=== PATIENT | female | born 1955 | race Caucasian/White ===

== ENCOUNTER → 2017-01-22 | Outpatient (CLI) | payer MEDICARE ==
--- NOTE | 2017-01-22 10:10 | Diagnostic Imaging Report ---
PROCEDURE: CT head without contrast. TECHNIQUE: Multiple contiguous axial images were obtained through the brain without the use of intravenous contrast. INDICATION: Frontal and posterior head pain with tremors x10 days. COMPARISON: 06/27/2007 FINDINGS: There is no midline shift or mass effect. The ventricles and sulci are unremarkable. No evidence for acute intracranial hemorrhage, abnormal extra-axial fluid collections or cerebral edema is present. The basilar cisterns are unremarkable. The visualized paranasal sinuses and mastoid air cells are clear. The bony calvarium is intact. IMPRESSION: Negative appearing noncontrast CT of the head. Dictated by: Dictated on workstation # [id number]
--- NOTE | 2017-01-22 12:11 | Diagnostic Imaging Report ---
EXAMINATION: Three views of the lumbar spine. INDICATION: Scoliosis. FINDINGS: There is a prominent scoliotic curvature, convex to the left, centered around the L2 vertebral body with lateral subluxation of L3 over L4 of about 1.3 cm. There is no obvious malalignment at the posterior spinal line although the scoliosis limits such evaluation on the lateral view. There is significant disc height loss along the areas of concavity in the scoliosis on the left side in the lower lumbar spine and in the right and upper lumbar spine levels. Facet joint arthropathy is also present. The SI joints appear unremarkable. IMPRESSION: There is severe left convexity scoliosis and associated degenerative changes in the lumbar spine. Dictated by: Dictated on workstation # [id number]
--- NOTE | 2017-01-22 13:24 | Diagnostic Imaging Report ---
AP view of pelvis and bilateral hip radiographs. INDICATION: Bilateral hip pain. FINDINGS: There is significant scoliosis and degenerative changes seen in the lower lumbar spine. SI joints demonstrate mild degenerative changes. No acute fracture. Bilateral hip radiographs demonstrate mild subchondral sclerosis and cyst formation in the hip joints with no significant hip joint space loss. No subluxation or dislocation. No fracture seen. IMPRESSION: Severe degenerative changes in the lower lumbar spine. Dictated by: Dictated on workstation # [id number]
--- NOTE | 2017-01-22 14:00 | Diagnostic Imaging Report ---
Three views of thoracic spine. INDICATION: Degenerative scoliosis. FINDINGS: The thoracic spine demonstrates a scoliotic curvature convex to the right centered in the mid thoracic spine. This is perhaps a compensatory scoliosis to the lumbar spine severe left convexity scoliosis. There is straightening of the kyphotic curvature in the thoracic spine with no significant alignment abnormality at the posterior spinal line identified. The T12-L1 level however is not well seen due to scoliosis and underpenetration. The vertebral body heights are preserved. There is a suggestion of disc height loss and vacuum phenomenon at the T12-L1 level. IMPRESSION: S-shaped scoliosis severe and convex to the left in the lumbar spine with compensatory right convexity curvature in the mid thoracic spine. Advanced degenerative changes at the T12-L1 level. Dictated by: Dictated on workstation # [id number]
== END ==
LOC: RAD 09:45
PROVIDERS: ATTEND Nurse Practitioner Family
DX: M47.815 Spondylosis without myelopathy or radiculopathy, thoracolumbar region (principal); M41.9 Scoliosis, unspecified; R25.1 Tremor, unspecified; M25.551 Pain in right hip; M25.552 Pain in left hip
CPT/HCPCS: 70450; 72072; 72100; 73523

== ENCOUNTER → 2017-03-05 | Outpatient (CLI) | payer MEDICARE ==
--- NOTE | 2017-03-05 17:44 | Diagnostic Imaging Report ---
PROCEDURE: MR imaging cervical spine without contrast. TECHNIQUE: Multiplanar, multisequence MR imaging of the cervical spine was performed without contrast. INDICATION: Mid back pain. There are no previous studies available for comparison. FINDINGS: The parasagittal images do show slight reversal of the normal lordosis of the cervical spine. This may be secondary to muscle spasm and/or positioning. There is desiccation of the disc at every level and there is narrowing of the disc spaces at C5-C6 and C6-C7. There are disc bulges essentially at both of these levels. The disc at the C6-C7 level compresses the ventral aspect of the thecal sac and narrows the AP diameter to 8.7 mm. At C5-C6, the disc narrows the AP diameter of the thecal sac to 9.2 mm. There is mild narrowing of the neuroforamen bilaterally at C6-C7 and on the left at C5-C6. There is moderate narrowing of the neuroforamen on the right at C5-C6. There is also a disc bulge essentially at C4-C5. The disc flattens the ventral aspect of the thecal sac and narrows the AP diameter to 10.2 mm. There does not appear to be any significant narrowing of the neuroforamen at this level. The remainder of the cervical spine is unremarkable for spinal stenosis or nerve root encroachment. There is no abnormal signal arising from the cord or the vertebral bodies to indicate an acute abnormality. There is no sign of a paraspinal mass. The expected carotid and vertebral flow voids are evident bilaterally. The left vertebral artery is dominant. IMPRESSION: 1. There is degenerative disc disease at C5-C6 and C6-C7 and to a lesser extent at C4-C5. There is mild central stenosis at C5-C6 and C6-C7 and borderline stenosis at C4-C5. There is also narrowing of the neuroforamen at C5-C6 and C6-C7, particularly on the right at C5-C6. 2. There is no sign of an acute bony abnormality or of a cord lesion. Dictated by: Dictated on workstation # [id number]
--- NOTE | 2017-03-05 18:58 | Diagnostic Imaging Report ---
EXAM: MRI of the thoracic spine without contrast. DATE: March 05, 2017. INDICATION: A 61-year-old female, back pain. Scoliosis. COMPARISON: Radiographs of the thoracic spine, January 22, 2017. TECHNIQUE: Multiple noncontrast MRI sequences of the thoracic spine were obtained. FINDINGS: There is a 35 degrees of thoracic dextroscoliosis as measured from the inferior endplate of T12 to the superior endplate of T6. There is a thoracolumbar levoscoliosis. The T12 vertebral body is laterally offset relative to L1 by roughly 8 mm as illustrated on coronal T2 sequence image 6. There is no identified compression deformity or otherwise noted fracture of the thoracic spine. There is no prominent marrow edema at the level of the thoracic spine. There is rhjymydy-ji-jrumnz disc height loss at T12-L1 with asymmetric right-sided disc height loss at L1-L2 and L2-L3. There are endplate degenerative changes at T12-L1, L1-L2, and L2-L3. The thoracic disc heights are relatively well preserved. The visualized portions of the spinal cord are unremarkable in signal. There is no identified sizable thoracic disc protrusion or extrusion. There is no spinal stenosis, specifically at the thoracic spine levels. There is a T2 hyperintense left renal lesion on axial image 52 measuring 10 mm in size which is not well characterized on this exam. IMPRESSION: 1. Thoracic dextroscoliosis with Stinson angle of 35 degrees as measured from the inferior endplate of T12 to the superior endplate of T6. Thoracolumbar levoscoliosis with lateral offset of T12 relative to L1. 2. Sizable thoracic disc protrusion or extrusion. No spinal stenosis at the thoracic spine levels. 3. Endplate degenerative changes at T12-L1, L1-L2, and L2-L3. 4. No identified compression deformity or otherwise noted fracture. Dictated by: Dictated on workstation # [id number]
== END ==
LOC: RAD 15:35
PROVIDERS: ATTEND Orthopaedic Surgery Orthopaedic Surgery of the Spine
DX: M50.322 Other cervical disc degeneration at C5-C6 level (principal); M47.814 Spondylosis without myelopathy or radiculopathy, thoracic region; M47.816 Spondylosis without myelopathy or radiculopathy, lumbar region; M41.34 Thoracogenic scoliosis, thoracic region
CPT/HCPCS: 72141; 72146

== ENCOUNTER → 2017-03-06 | Outpatient (CLI) | payer MEDICARE ==
--- NOTE | 2017-03-06 16:48 | Diagnostic Imaging Report ---
INDICATION: Neck pain for one year, worse over the last one and half months, chronic lower back pain; sometimes radiating down in the left leg and both hips. COMPARISON STUDY: None. FINDINGS: Noncontrast CT scanning of the thoracolumbar spine with sagittal and coronal reformats demonstrates 50 degrees of levoscoliosis from T11 through L3. No fractures are present. There is right lateral subluxation of T12 on L1 and left lateral subluxation of L2 on L3. The thoracic spine demonstrates no areas of stenosis. Visualized portions of the ribs and lungs appear clear. Lumbar spine: T12-L1 level demonstrates disc space narrowing with scoliosis causing mild narrowing of the right neuroforamina. The L1-L2 level demonstrates disc space narrowing. No stenosis is present. The L2-L3 level demonstrates disc space narrowing with subluxation laterally causing narrowing of the right neuroforamina. The L3-L4 level demonstrates some facet arthropathy. Degenerative facet changes on the left cause narrowing of the left lateral recess. The L4-L5 level demonstrates facet arthropathy, left greater than right, with mild disc bulge. There is cije-qx-ddcizevm narrowing of the left neuroforamina. The L5-S1 level demonstrates facet arthropathy, left greater than right. There is mild narrowing of the left neuroforamina. IMPRESSION: There is severe scoliosis measuring 50 degrees of the thoracolumbar spine. Areas of foraminal and lateral recess stenosis are present within the lumbar spine, as above. Dictated by: Dictated on workstation # [id number]
--- NOTE | 2017-03-06 17:02 | Diagnostic Imaging Report ---
PROCEDURE: CT cervical spine without contrast. TECHNIQUE: Multiple contiguous axial images were obtained through the cervical spine without the use of intravenous contrast. Sagittal and coronal reformations were then performed. INDICATION: One-year history of left-sided neck pain. Constant over the past one and a half months. Arm tremors and spasms. CORRELATION STUDY: MRI cervical spine 03/05/2017. FINDINGS:. Static imaging demonstrates trace anterolisthesis of C3 on C4 and C4 on C5. There is also straightening noted. Cervical vertebral body heights are maintained. Odontoid and cervicocranial junction appearing unremarkable. C2-C3 level: Unremarkable. C3-C4 level: Very mild broad-based disc bulge suggested. No significant osseous narrowing of the neural foramina and/or spinal canal. C4-C5 level: Very mild loss of disc space height. No significant osseous narrowing of the spinal canal and/or foramina. C5-C6 level: Moderate loss of disc space height. Prominent endplate osteophytes result in foraminal narrowing, right greater than left. AP dimension of the spinal canal at 11 mm. C6-C7 level: Mild loss of disc space height and minimal endplate osteophyte formation on the right. On the right, there is only mild narrowing. On the left, there is rather prominent thin osteophyte projecting into the neural foramen along its anterior and inferior margins. This does result in narrowing. C7-T1 level: Minimal degenerative endplate spurring without significant osseous narrowing of the foramina and/or spinal canal. IMPRESSION: Multilevel cervical spondylosis with resultant spinal canal and foraminal narrowing. Spinal canal narrowing is most pronounced at the C5-C6 level. Osseous narrowing of the neural foramina at this level is right greater than left as well as at the of C6-C7 level with a more prominent osteophyte on the left resulting in left foraminal narrowing. Dictated by: Dictated on workstation # [id number]
--- NOTE | 2017-03-06 17:13 | Diagnostic Imaging Report ---
PROCEDURE: MRI lumbar spine. TECHNIQUE: Multiplanar, multisequence MRI of the lumbar spine was performed without contrast. INDICATION: Back pain. COMPARISON: There are no previous MRI lumbar spine examinations available for comparison. FINDINGS: The plain film of the lumbar spine performed on 01/22/2017 noted severe left convexity scoliosis and associated degenerative changes of the lumbar spine. There is no sign of an acute abnormality. The MRI the thoracic spine exam performed in conjunction with this study did show thoracolumbar levoscoliosis. Using the Stinson method analysis with the superior endplate of T10 and the inferior endplate of L4 as landmarks, the measured angle of scoliosis is approximately 39 degrees +/- 2 degrees. As noted in the MRI thoracic spine, there is lateral offset of T12 with respect to L1 by approximately 1.1 cm. There are also degenerative endplate changes at T12-L1, L1-L2, and L2-L3 on the right. The axial images through these levels show that there is deformity of the thecal sac with narrowing of the neural foramen on the right. There does not appear to be any significant central stenosis. At the L3-L4 level, there is deformity of the thecal sac on the left due to facet overgrowth. There does not appear to be any significant central stenosis at this level, but there is narrowing of the neural foramen. There are mild disc bulges eccentric to the left at L4-L5 and L5-S1. There is no evidence for central stenosis at either of these levels, but there is mild narrowing of the neural foramen on the left. There is no fracture or acute bony abnormality identified. There is no sign of a cord lesion. There is no paraspinal mass visualized. IMPRESSION: 1. There is pronounced levoscoliosis of the thoracolumbar junction with the measured angle of scoliosis is approximately 39 degrees +/- 2-3 degrees. 2. There is also degenerative disc and bony disease on the right at T12-L1, L1-L2, and L2-L3. The degenerative changes do result in deformity of the thecal sac although there is no evidence for central stenosis at any level. However, there is narrowing of the neural foramen on the right at T12-L1, L1-L2 and L2-L3.. There is also narrowing of the neural foramen on the left at L3-L4. 3. There is no sign of any acute bony abnormality. Dictated by: Dictated on workstation # [id number]
== END ==
LOC: RAD 15:32
PROVIDERS: ATTEND Orthopaedic Surgery Orthopaedic Surgery of the Spine
DX: M48.06 Spinal stenosis, lumbar region (principal); M47.812 Spondylosis without myelopathy or radiculopathy, cervical region; M41.85 Other forms of scoliosis, thoracolumbar region; M51.35 Other intervertebral disc degeneration, thoracolumbar region
CPT/HCPCS: 72125; 72128; 72131; 72148

== ENCOUNTER 2017-04-03 14:11 | Outpatient (CLI) | payer MEDICARE ==
[~2017-04-03] VITALS: Ht 157.5 cm; Wt 47.2 kg
[2017-04-03 14:20] VITALS: BP 131/81
[2017-04-03 14:59] LABS: BASOPHILS % (AUTO) 1 % (0-10); EOSINOPHILS % (AUTO) 1 % (0-10); LYMPHOCYTES # (AUTO) 1.8 X 10^3 (1.0-4.0); LYMPHOCYTES % (AUTO) 42 % (12-44); MEAN CORPUSCULAR HEMOGLOBIN 29 PG (25-34); MEAN CORPUSCULAR HGB CONC 34 G/DL (32-36); MEAN CORPUSCULAR VOLUME 84 FL (80-99); MEAN PLATELET VOLUME 8.8 FL (7.4-10.4); MONOCYTES # (AUTO) 0.4 X 10^3 (0.0-1.0); MONOCYTES % (AUTO) 10 % (0-12); NEUTROPHILS % (AUTO) 46 % (42-75); PLATELET COUNT 315 10^3/uL (130-400); RED BLOOD COUNT 4.21 10^6/uL (4.35-5.85); RED CELL DISTRIBUTION WIDTH 12.7 % (10.0-14.5); WHITE BLOOD COUNT 4.3 10^3/uL (4.3-11.0)
[2017-04-03] MEDS ORDERED: CHOL100045 PO (15:00)
[2017-04-03] MEDS ORDERED: LORA0.5T PO (15:00)
[2017-04-03] MEDS ORDERED: AMLO2.5T PO (15:00)
[2017-04-03] MEDS ORDERED: FLUO20CA25 PO (15:00)
[2017-04-03] MEDS ORDERED: NAPR500T3 PO (15:00)
[2017-04-03] MEDS ORDERED: CALC600T12 PO (15:00)
[2017-04-03 15:16] LABS: ANION GAP 9 MMOL/L (5-14); BLOOD UREA NITROGEN 10 MG/DL (7-18); BUN/CREATININE RATIO 14; CALCIUM 9.7 MG/DL (8.5-10.1); CARBON DIOXIDE 27 MMOL/L (21-32); CHLORIDE 97 MMOL/L (98-107); CREATININE SERUM 0.71 MG/DL (0.60-1.30); GFR ESTIMATED > 60; GLUCOSE 94 MG/DL (70-105); POTASSIUM 3.7 MMOL/L (3.6-5.0); SODIUM 133 MMOL/L (135-145)
== END 2017-04-03 14:45 | disposition home or self-care (01) ==
LOC: PREOP 14:11
PROVIDERS: ATTEND Orthopaedic Surgery Orthopaedic Surgery of the Spine
DX: Z01.812 Encounter for preprocedural laboratory examination (principal); Z11.2 Encounter for screening for other bacterial diseases; M41.9 Scoliosis, unspecified
CPT/HCPCS: 36415; 80048; 85025; 86850; 86900; 86901; 87081

== ENCOUNTER 2017-04-11 07:32 | Inpatient (IN) | payer MEDICARE ==
[~2017-04-11] VITALS: Ht 157.5 cm; Wt 47.2 kg
[2017-04-11] VITALS (10 sets, daily range): BP systolic 80–140; BP diastolic 54–87
[~2017-04-11 07:32] MED LIST: AMLO2.5T PO; CALC600T12 PO; CHOL100045 PO; FLUO20CA25 PO; LORA0.5T PO; NAPR500T3 PO
--- NOTE | 2017-04-11 07:49 | Progress Note-Pre Operative ---
Pre-Operative Progress Note H&P Reviewed The H&P was reviewed, patient examined and no changes noted. Date H&P Reviewed: Apr 11, 2017 Time H&P Reviewed: 07:48 Pre-Operative Diagnosis: Thoracolumbar Scoliosis KAREN MARY MD Apr 11, 2017 7:49 am
[2017-04-11] MEDS: LACTATED RINGERS 1,000 ML IV PRN ×4 (07:55→13:30)
[2017-04-11] MEDS ORDERED: CLINDAMYCIN INJECTION 600 MG in NS (IVPB) 50 ML IV ONE (08:00)
[2017-04-11] MEDS ORDERED: DEXAMETHASONE PF 10 MG/ML (DECADRON) VIAL ONE (08:09)
[2017-04-11] MEDS ORDERED: fentaNYL INJECTION 250 MCG/5 ML AMP ONE (08:09)
[2017-04-11] MEDS ORDERED: proPOfol 200 MG/20 ML (DIPRIVAN) VIAL IV ONE (08:09)
[2017-04-11] MEDS ORDERED: SEVOFLURANE (ULTANE) 15 ML INHAL SOLN ONE ×2 (08:09→15:12)
[2017-04-11] MEDS ORDERED: ONDANSETRON 4 MG/2 ML (SDV) Z0FRAN ONE (08:09)
[2017-04-11] MEDS ORDERED: MIDAZOLAM 2 MG/2 ML (VERSED) VIAL ONE (08:09)
[2017-04-11] MEDS ORDERED: LIDOCAINE PF 2% 5 ML (XYLOCAINE) VIAL ONE (08:09)
[2017-04-11] MEDS ORDERED: VANCOMYCIN 1000 MG/VIAL ONE (08:25)
[2017-04-11] MEDS ORDERED: GENTAMICIN 40 MG/ML 2 ML INJ SDV ONE (08:25)
[2017-04-11] MEDS ORDERED: NS (IVPB) 100 ML ONE (08:30)
[2017-04-11] MEDS ORDERED: DEXMEDETOMIDINE 200 MCG/2 ML (PRECEDEX) VIAL IV ONE (08:30)
[2017-04-11] MEDS: NS IV 1000 ML 1,000 ML IV SCH ×2 (09:10→22:00)
[2017-04-11] MEDS ORDERED: BISACODYL 10 MG SUPP (DULCOLAX) PR PRN (09:15)
[2017-04-11] MEDS ORDERED: MILK OF MAGNESIA 400 MG/5 ML 30 ML UDC PO PRN (09:15)
[2017-04-11] MEDS ORDERED: ACETAMINOPHEN 325 MG TABLET/CAPLET (TYLENOL) PO PRN (09:15)
[2017-04-11] MEDS ORDERED: METOCLOPRAMIDE INJ 10 MG/2 ML (REGLAN) IV PRN (09:15)
[2017-04-11] MEDS ORDERED: ONDANSETRON 4 MG/2 ML (SDV) Z0FRAN IV PRN (09:15)
[2017-04-11] MEDS ORDERED: MEPERIDINE (DEMEROL) INJ 50 MG/ML IVP PRN (09:15)
[2017-04-11] MEDS ORDERED: BISACODYL 5 MG (DULCOLAX) TABLET PO PRN (09:15)
[2017-04-11] MEDS ORDERED: METOCLOPRAMIDE 10 MG (REGLAN) TAB PO PRN (09:15)
[2017-04-11] MEDS ORDERED: PROMETHAZINE 25 MG (PHENERGAN) TAB PO PRN (09:15)
[2017-04-11] MEDS ORDERED: NS IV 1000 ML 1,000 ML ONE (09:19)
[2017-04-11] MEDS ORDERED: PHENYLEPHRINE 100 MCG/ML 10 ML (ANESTHESIA) SYR ONE (09:27)
[2017-04-11] MEDS ORDERED: LACTATED RINGERS 1,000 ML IV ONE ×5 (09:44→15:12)
[2017-04-11] MEDS ORDERED: TRANEXAMIC ACID 100 MG/ML 10 ML INJECTION IV ONE (10:11)
[2017-04-11] MEDS ORDERED: ROCURONIUM 50 MG/5 ML (ZEMURON) VIAL IV ONE (11:40)
[2017-04-11] MEDS ORDERED: NEOSTIGMINE (BLOXIVERZ ) 1 MG/1ML 10 ML VIAL ONE (12:59)
[2017-04-11] MEDS ORDERED: GLYCOPYRROLATE 0.2 MG/ML (ROBINUL) 2 ML VIAL ONE (12:59)
--- NOTE | 2017-04-11 14:38 | Progress Note-Post Operative ---
Post-Operative Progess Note Surgeon (s)/Senior Analytic Consultant (s) Date Seen by Provider: Apr 11, 2017 Time Seen by Provider: 14:37 Surgeon KAREN MARY MD Senior Analytic Consultant: Robbie Samuel Pre-Operative Diagnosis Thoracolumbar Scoliosis Post-Operative Diagnosis Same Procedure & Operative Findings Date of Procedure 04/11/17 Procedure Performed/Findings L4-S1 ALIF and T9-Pelvis PSF for deformity with instrumentation. Anesthesia Type GETA Estimated Blood Loss Estimated blood loss (mL): 1600 Specimens/Packing Specimens Removed none KAREN MARY MD Apr 11, 2017 2:38 pm
--- NOTE | 2017-04-11 14:49 | Diagnostic Imaging Report ---
Indication: Low back pain. Discussion: Fluoroscopic support was provided during intraoperative posterior stabilization of the thoracolumbar spine. Please see the operative report for full detail. Fluoroscopy time: 41 seconds. Impression: 1. Intraoperative thoracolumbar spine posterior stabilization. Dictated by: Dictated on workstation # [id number]
[2017-04-11] MEDS ORDERED: morphine INJ 10 MG/ML 1ML (SYR OR VIAL) ONE (14:54)
[2017-04-11] MEDS ORDERED: morphine INJ 10 MG/ML 1ML (SYR OR VIAL) IVP PRN (15:15)
[2017-04-11] MEDS ORDERED: ONDANSETRON 4 MG/2 ML (SDV) Z0FRAN IVP PRN (15:15)
[2017-04-11] MEDS: CYCLOBENZAPRINE 10 MG (FLEXERIL) TAB PO PRN (16:55)
[2017-04-11] MEDS: morphine INJ 10 MG/ML 1ML (SYR OR VIAL) IVP PRN (16:56)
[2017-04-11] MEDS: CLINDAMYCIN INJECTION 900 MG in NS (IVPB) 50 ML IV SCH (16:56)
[2017-04-11] MEDS: D5 LR IV SOLUTION 1,000 ML IV SCH ×2 (17:01→21:40)
[2017-04-11] MEDS ORDERED: NS IV 500 ML 500 ML IV ONE (17:45)
[2017-04-11] MEDS: oxyCODONE/APAP 5/325MG (PERCOCET 5) TABLET PO PRN (18:30)
[2017-04-11] MEDS: SENNOSIDES 8.6 MG (SENOKOT) TAB PO SCH (21:39)
[2017-04-11] MEDS: FAMOTIDINE 20 MG (PEPCID) TABLET PO SCH (21:39)
[2017-04-11] MEDS: DOCUSATE SODIUM 100 MG (COLACE) CAP PO SCH (21:39)
[2017-04-12] VITALS (24 sets, daily range): BP systolic 94–142; BP diastolic 57–87
[2017-04-12] MEDS: CLINDAMYCIN INJECTION 900 MG in NS (IVPB) 50 ML IV SCH ×2 (01:28→08:06)
--- NOTE | 2017-04-12 04:37 | OPERATIVE REPORT ---
DATE OF SERVICE: 04/11/2017 PREOPERATIVE DIAGNOSIS: Thoracolumbar scoliosis. POSTOPERATIVE DIAGNOSIS: Thoracolumbar scoliosis. PROCEDURES PERFORMED: 1. L4-5 and L5-S1 anterior lumbar interbody fusion for deformity. 2. L4-5 and L5-S1 inner body cage instrumentation. 3. T9 to the pelvis posterior spinal fusion for deformity. 4. T9 to the pelvis posterior spinal instrumentation, segmental. 5. Pelvic fixation at the caudal end of a construct. 6. Autograft for spine surgery for local. 7. Allograft for spine surgery morselized. DATE AND TIME OF SURGERY: Please see anesthesia record. IMPLANTS USED: K2M [place] posterior spinal instrumentation, K2M [place] cage, Medtronic Magnifused and Infused Bone Graft and K2M VESUVIUS bone graft. SURGEON: Karen De Los Santos MD DIRECTOR OF GRADUATE MEDICAL EDUCATION: JERRY Kaur ROLE OF [employer] [place]: Aid in retraction of the procedure, aid in implantation, instrumentation and wound closure. ANESTHESIA: General endotracheal. ESTIMATED BLOOD LOSS: 1600 mL. INTRAVENOUS FLUIDS: Please see anesthesia record. ANTIBIOTICS: Clindamycin. COMPLICATIONS: None. INDICATIONS FOR PROCEDURES: The patient is a 61-year-old female with progressively intolerable back pain, deformity, desires operative correction. DESCRIPTION OF THE PROCEDURE: The patient was taken from the preoperative holding area back to the operative suite. After adequate induction of general anesthesia, preoperative antibiotics, and placement of spinal monitoring, she was placed supine on the OR table. Abdomen was prepped and draped. Left-sided retroperitoneum was exposed at L4-5 and L5-S1 levels. This was carried out without difficulty. Once appropriate level was confirmed on imaging, starting at L4-5, anterior dissection performed. Disk decompression all the way back to posterior annulus was carried out. Trial spacer was utilized and the appropriate sized [place] cage with infused bone graft was impacted into position and locking screws were placed through the cage for fixation purposes. Procedure was then carried out in a similar manner at the L5-S1 level as well. Autograft bone was then packed anteriorly to the cage for further graft purposes. Wound was closed in layers and the patient turned prone on the Madan table with careful padding to all extremities, sterilely prepped and draped posterior thoracic, lumbar and pelvic spine and then incision from T9 to pelvis was carried out. Full exposure was carried out. At this point, once the appropriate levels were confirmed, instrumentation was placed bilaterally in the ileum in an S2 iliac fashion, bilaterally S1, right-sided L5, bilateral L3, left-sided L1 and L2, bilateral T12, 11, 10 and 9s. Once all the instrumentation was checked on imaging, checked with neuromonitoring, rods were fashioned, contoured. Her facet joints were taken down. Posterior elements were taken down some to try to loosen and immobilize the spine. Titanium correcting ottoniel was placed on the left side with correction maneuvers achieved and some correction of her deformity, and then a cobalt chrome was placed on the right side as a holding ottoniel. Final tightening of the construct was performed. High-speed candido was used to decorticate all of her posterior elements from T9 to the pelvis and then a combination of autograft and autograft bone was packed posteriorly for the fusion portion of the procedure. Cross connectors were placed. Deep drain was placed. The wound was copiously irrigated and closed in layers. The patient was transferred to the recovery room in stable condition having tolerated the procedure well. Job ID: [id number] DocumentID: [id number] Dictated Date: 04/11/2017 16:17:20 Pantry Goods Maker Date: 04/12/2017 03:25:46 Dictated By: KAREN DE LOS SANTOS MD
[2017-04-12 04:42] LABS: BASOPHILS % (AUTO) 0 % (0-10); EOSINOPHILS % (AUTO) 0 % (0-10); LYMPHOCYTES # (AUTO) 0.6 X 10^3 (1.0-4.0); LYMPHOCYTES % (AUTO) 7 % (12-44); MEAN CORPUSCULAR HEMOGLOBIN 30 PG (25-34); MEAN CORPUSCULAR HGB CONC 34 G/DL (32-36); MEAN CORPUSCULAR VOLUME 87 FL (80-99); MEAN PLATELET VOLUME 9.3 FL (7.4-10.4); MONOCYTES # (AUTO) 0.8 X 10^3 (0.0-1.0); MONOCYTES % (AUTO) 9 % (0-12); NEUTROPHILS # (AUTO) 7.4 X 10^3 (1.8-7.8); NEUTROPHILS % (AUTO) 84 % (42-75); PLATELET COUNT 185 10^3/uL (130-400); RED BLOOD COUNT 3.61 10^6/uL (4.35-5.85); RED CELL DISTRIBUTION WIDTH 13.3 % (10.0-14.5); WHITE BLOOD COUNT 8.8 10^3/uL (4.3-11.0)
[2017-04-12 05:05] LABS: ALANINE AMINOTRANSFERASE 25 U/L (0-55); ALBUMIN 3.2 G/DL (3.2-4.5); ANION GAP 13 MMOL/L (5-14); ASPARTATE AMINO TRANSFERASE 48 U/L (5-34); BILIRUBIN,TOTAL 0.3 MG/DL (0.1-1.0); BLOOD UREA NITROGEN 10 MG/DL (7-18); BUN/CREATININE RATIO 16; CALCIUM 8.2 MG/DL (8.5-10.1); CARBON DIOXIDE 17 MMOL/L (21-32); CHLORIDE 106 MMOL/L (98-107); CREATININE SERUM 0.64 MG/DL (0.60-1.30); GFR ESTIMATED > 60; GLUCOSE 184 MG/DL (70-105); MAGNESIUM 1.5 MG/DL (1.8-2.4); PHOSPHORUS 3.1 MG/DL (2.3-4.7); POTASSIUM 4.5 MMOL/L (3.6-5.0); SODIUM 136 MMOL/L (135-145); TOTAL PROTEIN 5.7 G/DL (6.4-8.2)
[2017-04-12] MEDS: KCL 20 MEQ TAB (K-DUR) PO SCH (05:35)
[2017-04-12] MEDS: POTASSIUM CL 10MEQ/50ML IVPB 50 ML IV SCH (05:35)
[2017-04-12] MEDS: MAGNESIUM 1 GM/100 ML IVPB 100 ML IV SCH ×3 (05:43→07:00)
[2017-04-12] MEDS: D5 LR IV SOLUTION 1,000 ML IV SCH ×2 (06:23→22:40)
[2017-04-12] MEDS: oxyCODONE/APAP 5/325MG (PERCOCET 5) TABLET PO PRN ×4 (07:06→18:40)
[2017-04-12] MEDS: CYCLOBENZAPRINE 10 MG (FLEXERIL) TAB PO PRN ×2 (07:06→14:06)
--- NOTE | 2017-04-12 08:00 | Pulmonary Consultation ---
History of Present Illness History of Present Illness Date of Consultation 04/12/17 07:55 Date of Admission Allergies and Home Medications Allergies Coded Allergies: Penicillins (Verified Allergy, Unknown, 04/03/17) alendronate sodium (Verified Allergy, Unknown, 04/03/17) bacitracin (Verified Allergy, Unknown, 04/03/17) lactose (Verified Allergy, Unknown, 04/03/17) neomycin (Verified Allergy, Unknown, 04/03/17) polymyxin B (Verified Allergy, Unknown, 04/03/17) raloxifene (Verified Allergy, Unknown, leg swelling, 04/03/17) Home Medications Amlodipine Besylate 2.5 Mg Tablet, 2.5 MG PO DAILY, (Reported) Calcium Carbonate 600 Mg Tablet, 600 MG PO BID, (Reported) Cholecalciferol (Vitamin D3) 1,000 Unit Tablet, 1,000 UNIT PO BID, (Reported) Fluoxetine HCl 20 Mg Capsule, 20 MG PO DAILY, (Reported) Lorazepam 0.5 Mg Tablet, 0.5 MG PO HS, (Reported) Naproxen 500 Mg Tablet, 500 MG PO BID, (Reported) Past Cyjdfqb-Pfrhwv-Ogofpz Hx Patient Social History Alcohol Use: Denies Use Recreational Drug Use: No Smoking Status: Never a Smoker Recent Foreign Travel: No Contact w/Someone Who Travel: No Recent Infectious Disease Expo: No Recent Hopitalizations: Yes Physical Abuse Screen: No Sexual Abuse: No Seasonal Allergies Seasonal Allergies: No Surgeries HX Surgeries: Yes (jaw resection) Respiratory Hx Respiratory Disorders: No Cardiovascular Hx Cardiac Disorders: No Neurological Hx Neurological Disorders: No Reproductive System Hx Reproductive Disorders: No Genitourinary Hx Genitourinary Disorders: No Gastrointestinal Hx Gastrointestinal Disorders: No Musculoskeletal Musculoskeletal Disorders: Scoliosis Endocrine Hx Endocrine Disorders: No HEENT HX ENT Disorders: No Cancer Hx Cancer: No Psychosocial Hx Psychiatric Problems: No Integumentary HX Skin/Integumentary Disorder: No Blood Transfusions Hx Blood Disorders: No Family Medical History Family Medial History: Cardiovascular disease 19 MOTHER Diabetes mellitus 19 MOTHER Hypertension 19 MOTHER Myocardial infarction 19 MOTHER Psychosocial problem 19 FATHER 19 MOTHER G8 SISTER Review of Systems Constitutional: Malaise, Weakness, No: Chills, Fever, Other, Sweats Eyes: No: Conjunctivae inflammation, Eyelid inflammation, Other, Pain, Redness , Vision change ENT: No: Ear discharge, Ear pain, Mouth pain, Mouth swelling, Nose congestion, Nose discharge, Nose pain, Other, Throat pain, Throat swelling Respiratory: No: Cough, Dry, Hemoptysis, Other, Pleuritic Pain, SOB with excertion, Shortness of breath, Sputum, Wheezing, Wheezing Cardiovascular: No: Chest Pain, Edema, Lt Headedness, Orthopnea, Other, Palpitations, Paroxysmal Noc. Dyspnea Gastrointestinal: No: Abdominal Pain, Constipation, Diarrhea, Hematochezia, Melena, Nausea, Other, Vomiting Genitourinary: No Dysuria, No Frequency, No Incontinence, No Hematuria, No Retention, No Other Musculoskeletal: back pain Exam Exam Vital Signs Date Time Temp Pulse Resp B/P (MAP) Pulse Ox O2 Delivery O2 Flow Rate FiO2 04/12/17 07:06 97.5 94 16 128/72 100 04/12/17 06:00 78 18 133/79 97 04/12/17 05:00 76 17 132/70 100 04/12/17 04:00 98 04/12/17 04:00 73 23 117/64 99 04/12/17 03:00 75 18 99/57 99 04/12/17 02:00 80 17 95/57 99 04/12/17 01:00 80 04/12/17 01:00 80 19 109/71 98 04/12/17 00:00 76 16 94/63 99 04/12/17 00:00 97 04/12/17 00:00 97.2 04/11/17 23:00 77 16 113/71 99 04/11/17 22:00 71 22 109/67 99 04/11/17 21:00 76 9 109/71 100 04/11/17 20:00 79 10 104/65 98 04/11/17 20:00 96 04/11/17 19:00 73 04/11/17 19:00 73 35 92/59 98 04/11/17 18:00 83 14 91/57 99 04/11/17 17:00 68 32 80/54 100 04/11/17 16:15 60 22 107/66 100 04/11/17 16:10 100 04/11/17 16:10 96.1 62 107/66 100 04/11/17 15:20 97.0 04/11/17 08:04 96.8 96 20 140/87 100 I & O 04/12/17 07:00 Intake Total 6310 ml Output Total 3402 ml Balance 2908 ml General Appearance: No Apparent Distress, WD/WN HEENT: PERRL/EOMI, Pharynx Normal Neck: Normal Inspection, Non Tender, Supple Respiratory: Lungs Clear, Normal Breath Sounds, No Accessory Muscle Use, No Respiratory Distress Cardiovascular: No Edema, No Murmur Gastrointestinal: normal bowel sounds, non tender, soft Neurologic/Psychiatric: Alert, Oriented x3 Skin: Normal Color, Warm/Dry Results Lab Laboratory Tests 04/11/17 12:18 04/11/17 14:12 04/12/17 04:12 Assessment/Plan Assessment/Plan Thoracolumbar Scoliosis S/P surgical repair -IS X 10breaths every 1hr WA -pain control No complications noted. Pt is on RA currently. To floor when ok with ortho. Clinical Quality Measures DVT/VTE Risk/Contraindication: Risk Factor Score Per Nursin RFS Level Per Nursing on Admit: 3=High ARABELLA CRANDALL DO Apr 12, 2017 08:00
[2017-04-12] MEDS: SENNOSIDES 8.6 MG (SENOKOT) TAB PO SCH ×2 (08:06→20:50)
[2017-04-12] MEDS: FAMOTIDINE 20 MG (PEPCID) TABLET PO SCH ×2 (08:06→20:50)
[2017-04-12] MEDS: MULTIVIT W/MINERALS TAB (THERAGRAN M) PO SCH (08:06)
[2017-04-12] MEDS: DOCUSATE SODIUM 100 MG (COLACE) CAP PO SCH ×2 (08:06→20:50)
--- NOTE | 2017-04-12 10:17 | Progress Note (SOAP) ---
Subjective Time Seen by Provider: 10:13 Subjective/Events-last exam Pt doing good. Complaining of post-surgical back pain. She can see positive changes from before the surgery. Objective Exam Vital Signs Date Time Temp Pulse Resp B/P (MAP) Pulse Ox O2 Delivery O2 Flow Rate FiO2 04/12/17 09:00 81 20 110/69 98 04/12/17 08:00 80 15 120/68 99 04/12/17 07:06 97.5 94 16 128/72 100 04/12/17 07:00 78 04/12/17 06:00 78 18 133/79 97 04/12/17 05:00 76 17 132/70 100 04/12/17 04:00 98 04/12/17 04:00 73 23 117/64 99 04/12/17 03:00 75 18 99/57 99 04/12/17 02:00 80 17 95/57 99 04/12/17 01:00 80 04/12/17 01:00 80 19 109/71 98 04/12/17 00:00 76 16 94/63 99 04/12/17 00:00 97 04/12/17 00:00 97.2 04/11/17 23:00 77 16 113/71 99 04/11/17 22:00 71 22 109/67 99 04/11/17 21:00 76 9 109/71 100 04/11/17 20:00 79 10 104/65 98 04/11/17 20:00 96 04/11/17 19:00 73 04/11/17 19:00 73 35 92/59 98 04/11/17 18:00 83 14 91/57 99 04/11/17 17:00 68 32 80/54 100 04/11/17 16:15 60 22 107/66 100 04/11/17 16:10 100 04/11/17 16:10 96.1 62 107/66 100 04/11/17 15:20 97.0 I & O 04/12/17 07:00 Intake Total 6310 ml Output Total 3402 ml Balance 2908 ml Capillary Refill : General Appearance: No Apparent Distress, WD/WN Respiratory: No Accessory Muscle Use Extremity: No Calf Tenderness Neurologic/Psychiatric: Alert, Oriented x3, No Motor/Sensory Deficits Skin: Normal Color Results Lab Laboratory Tests 04/11/17 12:18: Hemoglobin 10.7L, Hematocrit 32L 6/2/17 14:12: Hemoglobin 10.6L, Hematocrit 32L 04/12/17 04:12: Hemoglobin 10.7L, Hematocrit 31L, White Blood Count 8.8, Red Blood Count 3.61L, Mean Corpuscular Volume 87, Mean Corpuscular Hemoglobin 30, Mean Corpuscular Hemoglobin Concent 34, Red Cell Distribution Width 13.3, Platelet Count 185, Mean Platelet Volume 9.3, Neutrophils (%) (Auto) 84H, Lymphocytes (%) (Auto) 7L , Monocytes (%) (Auto) 9, Eosinophils (%) (Auto) 0, Basophils (%) (Auto) 0, Neutrophils # (Auto) 7.4, Lymphocytes # (Auto) 0.6L, Monocytes # (Auto) 0.8, Eosinophils # (Auto) 0.0, Basophils # (Auto) 0.0, Sodium Level 136, Potassium Level 4.5, Chloride Level 106, Carbon Dioxide Level 17L, Anion Gap 13, Blood Urea Nitrogen 10, Creatinine 0.64, Estimat Glomerular Filtration Rate > 60, BUN/ Creatinine Ratio 16, Glucose Level 184H, Calcium Level 8.2L, Phosphorus Level 3.1, Magnesium Level 1.5L, Total Bilirubin 0.3, Aspartate Amino Transf (AST/SGOT ) 48H, Alanine Aminotransferase (ALT/SGPT) 25, Alkaline Phosphatase 54, Total Protein 5.7L, Albumin 3.2 Assessment/Plan Assessment/Plan Assess & Plan/Chief Complaint S/P T9-Pelvis fusion for deformity ABLA Continue PT and pain control TLSO brace order Okay to LEE cotto when ambulatory Clinical Quality Measures DVT/VTE Risk/Contraindication: Risk Factor Score Per Nursin RFS Level Per Nursing on Admit: 3=High TESFAYE WHARTON Apr 12, 2017 10:17
--- NOTE | 2017-04-12 11:26 | Occupational Therapy Eval ---
OT Evaluation-General/PLF Medical Diagnosis Admission Date Apr 11, 2017 at 07:32 Medical Diagnosis: thoracolumbar scoliosis Onset Date: Apr 11, 2017 Therapy Diagnosis Therapy Diagnosis: Weakness, Decreased ADL skills Height/Weight Height (Feet): 5 Height (Inches): 2.00 Weight (Pounds): 104 Weight (Ounces): 0.0 Precautions Precautions/Isolations: Fall Prevention, Standard Precautions Safety Interventions: Reorient-PRN Weight Bear Status Weight Bearing Restriction: Weight Bearing/Tolerated Referral Physician: Dr. De Los Santos Referral Reason: Activity Tolerance, Self Care, Evaluation/Treatment, Strengthening/ROM Referral Comments Spoke with Dr. De Los Santos's PA previous to evaluation. He states he would like pt. to have back brace on previous to getting up. Brace has been ordered from [facility] [employer], and on its way. PA states that eventually, he would like pt. to be fit for custom TLSO. Let him know that it will be fit from outside source , and order will need to be sent. Medical History Additional Medical History jaw resection, scoliosis Current History Pt. began to have pain due to scoliosis. Surgical intervention recommended. Reviewed History: Yes Social History Home: Single Level Current Living Status: Alone Entry Into Home: Stairs With Railing Steps Into Home: 5 ADL-Prior Level of Function ADL PLOF Comments Pt. states that previous to this surgery, she was independent with basic self care needs. DME/Equipment: Bath Bench, Bedside Commode, Reachers, Tub/Shower DME/Equipment Comments Pt. has a walker and cane. Uses a cane. Occupation: Pt. is disabled Drive Self: Yes OT Current Status Subjective Pt. reports 3/10 back pain after getting up. Nursing aware. Appearance Pt. is alert and oriented. Agrees to get out of bed. Mental Status/Objective Patient Orientation: Person, Place Current Glasses/Contacts: Yes Hand Dominance: Right Upper Extremity ROM Pt. is able to range UE in all planes bilaterally. Upper Extremity Coordination intact. However, pt. does have essential tremors. States that her neurologist feels that this may be familial. Upper Extremity Sensation intact Upper Extremity Strength 5/5 right hand strength 4/5 left hand strength Did not test proximally due to back precautions. ADL-Treatment Functional [place] Measure 0=Not Assessed/NA 4=Minimal Assistance 1=Total Assistance 5=Supervision or Setup 2=Maximal Assistance 6=Modified [place] 3=Moderate Assistance 7=Complete IndependenceIRFPAI Quality Coding Scale 6 Independent with activity with or without an assistive device 5 Patient requires set up or clean up by helper. Patient completes activity by themselves 4 Supervision or touching assist (CGA). [place] provide cues , steadying assist 3 The helper provides less than half the effort to complete the activity 2 The helper provides more than half the effort to complete the activity 1 Dependent. The helper does all the effort to complete an activity 7 Patient refused to complete or attempt activity 9 The patient did not perform the activity before the current illness or injury 88 Not attempted due to Medical conditions or safety concerns Transfers (B, C, W/C) (FIM): 4 (See below) OT/PT co-treat due to nature of the surgery, and nursing stating that pt's blood pressure has been dipping low. BP fine at beginning of session. Pt. transferred supine-sit with min assist, and OT applied back brace. OT worked on hand placement, back safety education, and education regarding strategies for ADL tasks. PT concentrated on walker placement, and foot placement during transfer, as well as balance. Pt. stood with min assist, and slowly walked approximately 5 feet. Requested to lay down. Turned and able to walk back to bed. Sat on side of bed, and eyes rolled back. Pt. emergently laid down with PT/OT assist. Transferred to head of bed with dependent assist x 2. Nursing came to room and assessed pt. Pt. regained consciousness immediately. Began to talk and asked what happened. Blood pressure and oxygen okay. Pt. states that she remembers feeling dizzy. All needs met in room. Education OT Patient Education: Correct positioning, Instructions don/doff splint/brace, Instructions to caregiver, Modified ADL techniques, Progress toward Goal/Update tx plan, Purpose of tx/functional activities, Reviewed precautions, Rehab process, Transfer techniques Teaching Recipient: Patient Teaching Methods: Demonstration, Discussion Response to Teaching: Verbalize Understanding, Return Demonstration OT Short Term Goals Short Term Goals Time Frame: Apr 19, 2017 Eating(FIM): 6 Grooming(FIM): 5 Bathing(FIM): 4 Upper Body Dressing(FIM): 4 Lower Body Dressing(FIM): 4 Toileting(FIM): 4 Transfers (B,C,W/C) (FIM): 5 Toilet/Commode Transfer(FIM): 5 Shower Transfer(FIM): 4 Additional Short Term Goals: 1-Demonstrate ADL Tasks, 2-Verbalize Understanding , 3-ImproveStrength/Vinicius 1=Demonstrate adherence to instructed precautions during ADL tasks. 2=Patient will verbalize/demonstrate understanding of assistive devices/ modifications for ADL. 3=Patient will improve strength/tolerance for activity to enable patient to perform ADL's. 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 2=Patient will verbalize/demonstrate understanding of assistive devices/ modifications for ADL. 3=Patient will improve strength/tolerance for activity to enable patient to perform ADL's. OT Education/Plan Problem List/Assessment Assessment: Decreased Activ Tolerance, Dependent Transfers, Impaired Bed Mobility, Impaired Funct Balance, Impaired I ADL's, Impaired Self-Care Skills Discharge Recommendations Plan/Recommendations: Continue POC Therapy D/C Recommendations: Acute Rehab Equpiment Recommendations-D/C: Hip Kit Target Placement Pt. may benefit from rehab stay due to living alone. Treatment Plan/Plan of Care Treatment,Training & Education: Yes Patient would benefit from OT for education, treatment and training to promote independence in ADL's, mobility, safety and/or upper extremity function for ADL' s. Plan of Care: ADL Retraining, Caregiver Training, Functional Mobility, UE Funct Exercise/Act Treatment Duration: Apr 26, 2017 Visits Per Week: 5-6 Rehab Potential: Good Time/GCodes Start Time: 10:30 Stop Time: 11:00 Total Time Billed (hr/min): 30 Billed Treatment Time 1, EVmod x 30minutes co-treat with PT. Please see above for designated roles. ALTON MARKS OT Apr 12, 2017 11:26
--- NOTE | 2017-04-12 11:29 | Diagnostic Imaging Report ---
Portable chest. INDICATION: Shortness of breath. FINDINGS: Background features of interstitial lung disease, presumably COPD are present. Heart size is within normal limits without evidence of failure. There is no focal infiltrate or consolidation. There is no pneumothorax. Extensive thoracolumbar spinal fusion is noted with lumbar levoscoliosis. IMPRESSION: 1. Background features of COPD without radiographic evidence of an acute superimposed cardiopulmonary process. Dictated by: Dictated on workstation # [id number]
[2017-04-12] MEDS: FLUoxetine HCL 20 MG (PROzac) CAP PO SCH (11:53)
--- NOTE | 2017-04-12 12:42 | Physical Therapy Evaluation ---
PT Evaluation-General Medical Diagnosis Admission Date Apr 11, 2017 at 07:32 Medical Diagnosis: thoracolumbar scoliosis Onset Date: Apr 11, 2017 Therapy Diagnosis Therapy Diagnosis: weakness; impairment of gait Height/Weight Height (Feet): 5 Height (Inches): 2.00 Weight (Pounds): 104 Weight (Ounces): 0.0 Precautions Precautions/Isolations: Fall Prevention, Standard Precautions Weight Bear Status Weight Bearing Restriction: Weight Bearing/Tolerated Referral Physician: Dr. De Los Santos Reason for Referral: Gait Medical History Pertinent Medical History: Back Injury, CABG Additional Medical History Patient has essential tremors Current History Pt reports that approximately 5yrs ago she noticed scoliosis and began having weakness and loss of function. She did outpatient PT and got on a regular exercise program and improved. Starting this past December her symptoms began to progress with pain and loss of function. She elected to have surgery for correction of the scoliotic curve. She had L4-S1 fusion with cage placement and T9-S1 fusion with rods on 04-11-17. Reviewed History: Yes Social History Home: Single Level Current Living Status: Alone Entry Into Home: Stairs With Railing PT Steps Into Home: 5 Prior/Core FIM Prior Level of Function Functional [place] Measure 0=Not Assessed/NA 4=Minimal Assistance 1=Total Assistance 5=Supervision or Setup 2=Maximal Assistance 6=Modified [place] 3=Moderate Assistance 7=Complete [place] Bed Mobility: 7 Transfers (B,C,W/C) (FIM): 7 Gait: 6 Locomotion: 6 Used a single point cane. She was able to ambulate community distance sufficient to walk through the grocery store but not much further. PT Evaluation-Current Subjective Pt motivated. Not limited by pain. She is ready to start moving. Pain Numeric Pain Scale: 3 Location Body Site: Back Pain Description: Ache Pt/Family Goals discharge to home with assist from family Objective Patient Orientation: Normal For Age Problem Solving: Good Attachments: Saline Lock, SCD's, Drains, Treviño Catheter Perry back brace when out of bed ROM/Strength ROM Upper Extremities WFL ROM Lower Extremities wFL Strength Upper Extremities gross 4/5 Strenght Lower Extremities gross 4/5 Integumentary/Posture Integumentary abdominal and back incisions Sensory Hand Dominance: Right Sensation Right Upper Extremit: Intact Sensation Left Upper Extremity: Intact Sensation Right Lower Extremit: Intact Sensation Left Lower Extremity: Intact Transfers Functional [place] Measure 0=Not Assessed/NA 4=Minimal Assistance 1=Total Assistance 5=Supervision or Setup 2=Maximal Assistance 6=Modified [place] 3=Moderate Assistance 7=Complete [place] Transfers (B, C, W/C) (FIM): 4 Scootin Rollin Supine to/from Sit: 4 Sit to/from Stand: 4 Educated on and performed log rolling to edge of bed. Pt did become faint after returning to bed from gait training. Pt momentarily lost consciousness and therapists had to lift her into bed. Gait Mode of Locomotion: Walk Anticipated Mode of Locomotion: Walk Distance (FIM): 1=up to 49 ft Distance: 10 Gait Level of Assist: 4 Gait Persons Needed: 1 Gait Assistive Device: FWW Comments/Gait Description Pt slow but steady with use of FWW. Gait distance limited by drop in blood pressure and feeling of faintness. Balance Sitting Static: Fair Sitting Dynamic: Fair Standing Static: Fair Standing Dynamic: Fair Assessment/Needs Rehab Potential: Good PT Short Term Goals Short Term Goals Transfers (B,C,W/C) (FIM): 5 PT Gold Reclaimer Goals Gold Reclaimer Goals PT Snf Goals Time Frame: Apr 25, 2017 Transfers (B,C,W/C) (FIM): 6 Gait (FIM): 6 Gait distance (FIM): 3=150 ft Distance: 150 Gait Level of Assist: 6 Gait Assistive Device: FWW # of Steps: 5 Stairs Level Of Assist: 5 PT Plan Problem List Problem List: Activity Tolerance, Functional Strength, Safety, Balance, Gait, Transfer, Bed Mobility Treatment/Plan Treatment Plan: Continue Plan of Care Treatment Plan: Bed Mobility, Education, Functional Activity Vinicius, Functional Strength, Gait, Safety, Therapeutic Exercise, Transfers Treatment Duration: Apr 25, 2017 # of days/week 6 Visits Per Week: 11 Minutes/Day (M-F): 30 Minutes/Day (Sat/[place]): 15 Pt/Family Agrees w/Plan: Yes Safety Risks/Education Safety Risk Comments: surgical precautions to limit lifting, twisting, bending Patient Education: Gait Training, Transfer Techniques, Steps, Reviewed Precautions, Reviewed Don/Doff Brace Teaching Recipient: Patient, Family Teaching Methods: Demonstration, Discussion Response to Teaching: Verbalize Understanding Discharge Recommendations Target Placement home with family support Time/GCodes Time In: 1030 Time Out: 1100 Total Billed Treatment Time: 30 Total Billed Treatment visit, evaluation moderate complexity ALEXANDR LARA PT Apr 12, 2017 12:42
--- NOTE | 2017-04-12 13:57 | Anesthesia-General Post-Op ---
General Patient Condition Mental Status/LOC: Same as Preop Cardiovascular: Satisfactory Nausea/Vomiting: Absent Respiratory: Satisfactory Pain: Controlled Complications: Absent Post Op Complications Complications None Follow Up Care/Instructions Patient Instructions None needed. Anesthesia/Patient Condition Patient Condition Patient is doing well, no apparent adverse anesthesia problems. Nursing reports some postoperative hypotension and that patient got lightheaded when ambulating in the lewis. Is stable, sitting up in chair at this time. PINKY MARTÍNEZ CRNA Apr 12, 2017 13:57
[2017-04-12] MEDS: NS IV 1000 ML 1,000 ML IV SCH (17:39)
[2017-04-12] MEDS: LORazepam 0.5 MG (ATIVAN) TABLET PO SCH (20:50)
[2017-04-13] VITALS (15 sets, daily range): BP systolic 111–157; BP diastolic 70–84
[2017-04-13] MEDS: oxyCODONE/APAP 5/325MG (PERCOCET 5) TABLET PO PRN ×4 (02:17→15:20)
[2017-04-13 04:03] LABS: BASOPHILS % (AUTO) 0 % (0-10); EOSINOPHILS % (AUTO) 0 % (0-10); LYMPHOCYTES # (AUTO) 1.3 X 10^3 (1.0-4.0); LYMPHOCYTES % (AUTO) 12 % (12-44); MEAN CORPUSCULAR HEMOGLOBIN 30 PG (25-34); MEAN CORPUSCULAR HGB CONC 34 G/DL (32-36); MEAN CORPUSCULAR VOLUME 87 FL (80-99); MONOCYTES # (AUTO) 0.9 X 10^3 (0.0-1.0); MONOCYTES % (AUTO) 8 % (0-12); NEUTROPHILS % (AUTO) 81 % (42-75); PLATELET COUNT 196 10^3/uL (130-400); RED BLOOD COUNT 2.88 10^6/uL (4.35-5.85); RED CELL DISTRIBUTION WIDTH 13.4 % (10.0-14.5); WHITE BLOOD COUNT 11.1 10^3/uL (4.3-11.0)
[2017-04-13 04:26] LABS: ALANINE AMINOTRANSFERASE 24 U/L (0-55); ALBUMIN 2.9 G/DL (3.2-4.5); ANION GAP 7 MMOL/L (5-14); ASPARTATE AMINO TRANSFERASE 56 U/L (5-34); BILIRUBIN,TOTAL 0.4 MG/DL (0.1-1.0); BLOOD UREA NITROGEN 10 MG/DL (7-18); BUN/CREATININE RATIO 14; CALCIUM 8.4 MG/DL (8.5-10.1); CARBON DIOXIDE 25 MMOL/L (21-32); CHLORIDE 98 MMOL/L (98-107); CREATININE SERUM 0.69 MG/DL (0.60-1.30); GFR ESTIMATED > 60; GLUCOSE 122 MG/DL (70-105); MAGNESIUM 1.9 MG/DL (1.8-2.4); PHOSPHORUS 2.2 MG/DL (2.3-4.7); POTASSIUM 4.6 MMOL/L (3.6-5.0); SODIUM 130 MMOL/L (135-145); TOTAL PROTEIN 5.5 G/DL (6.4-8.2)
[2017-04-13] MEDS: MAGNESIUM 1 GM/100 ML IVPB 100 ML IV SCH (06:32)
[2017-04-13] MEDS: POTASSIUM CL 10MEQ/50ML IVPB 50 ML IV SCH (06:32)
[2017-04-13] MEDS: KCL 20 MEQ TAB (K-DUR) PO SCH (06:32)
[2017-04-13] MEDS: MULTIVIT W/MINERALS TAB (THERAGRAN M) PO SCH ×2 (06:51→06:54)
[2017-04-13] MEDS: amLODIPine 2.5MG (NORVASC) TAB PO SCH (08:10)
[2017-04-13] MEDS: FLUoxetine HCL 20 MG (PROzac) CAP PO SCH (08:10)
[2017-04-13] MEDS: SENNOSIDES 8.6 MG (SENOKOT) TAB PO SCH ×2 (08:10→22:12)
[2017-04-13] MEDS: FAMOTIDINE 20 MG (PEPCID) TABLET PO SCH ×2 (08:10→22:17)
[2017-04-13] MEDS: CYCLOBENZAPRINE 10 MG (FLEXERIL) TAB PO PRN ×2 (08:11→15:21)
[2017-04-13] MEDS: DOCUSATE SODIUM 100 MG (COLACE) CAP PO SCH ×2 (08:11→22:12)
--- NOTE | 2017-04-13 09:29 | Diagnostic Imaging Report ---
INDICATION: Dyspnea. Comparison made with prior examination from 04/12/17. FINDINGS: The heart size is normal. Mediastinum is unremarkable. There is no pleural effusion or pneumothorax. There is some air-trapping compatible with COPD. IMPRESSION: COPD, otherwise unremarkable. Dictated by: Dictated on workstation # [id number]
--- NOTE | 2017-04-13 10:27 | Progress Note (SOAP) ---
Subjective Time Seen by Provider: 10:21 Subjective/Events-last exam Pt doing good, but in a little more pain today. Had a syncopal episode yesterday after getting up with PT, but has been sitting up in a chair today without any problems. Hasn't been able to urinate since her cotto was removed, had to be straight cathed last night. Objective Exam Vital Signs Date Time Temp Pulse Resp B/P (MAP) Pulse Ox O2 Delivery O2 Flow Rate FiO2 04/13/17 08:11 98.9 115 18 111/70 98 04/13/17 07:00 108 04/13/17 07:00 108 13 130/77 97 04/13/17 06:00 98 22 130/75 97 04/13/17 05:00 94 14 126/70 97 04/13/17 04:00 97 16 130/74 97 04/13/17 03:00 93 23 128/77 100 04/13/17 02:00 93 21 136/78 98 04/13/17 01:00 86 04/13/17 01:00 89 15 135/74 98 04/13/17 00:00 98.1 04/13/17 00:00 89 14 134/74 98 04/12/17 23:00 122 22 132/85 99 04/12/17 22:00 92 16 122/73 98 04/12/17 21:00 93 20 136/80 100 04/12/17 20:00 120 21 99 04/12/17 20:00 98.0 132/72 04/12/17 19:00 87 20 142/76 99 04/12/17 19:00 92 04/12/17 18:00 100 23 131/76 96 04/12/17 17:00 90 13 131/76 98 04/12/17 16:15 97.8 04/12/17 16:00 90 13 126/75 98 04/12/17 15:00 82 15 127/73 99 04/12/17 14:00 79 14 138/73 98 04/12/17 13:00 82 19 124/68 96 04/12/17 13:00 82 04/12/17 11:48 98.2 80 16 129/78 100 04/12/17 11:00 83 19 119/76 99 I & O 04/13/17 07:00 Intake Total 2126 ml Output Total 1225 ml Balance 901 ml Capillary Refill : General Appearance: No Apparent Distress, WD/WN Respiratory: No Accessory Muscle Use Extremity: No Calf Tenderness Neurologic/Psychiatric: Alert, Oriented x3, No Motor/Sensory Deficits Skin: Normal Color, Warm/Dry Results Lab Laboratory Tests 04/13/17 03:38: White Blood Count 11.1H, Red Blood Count 2.88L, Hemoglobin 8.6L, Hematocrit 25L , Mean Corpuscular Volume 87, Mean Corpuscular Hemoglobin 30, Mean Corpuscular Hemoglobin Concent 34, Red Cell Distribution Width 13.4, Platelet Count 196, Mean Platelet Volume 9.0, Neutrophils (%) (Auto) 81H, Lymphocytes (%) (Auto) 12 , Monocytes (%) (Auto) 8, Eosinophils (%) (Auto) 0, Basophils (%) (Auto) 0, Neutrophils # (Auto) 9.0H, Lymphocytes # (Auto) 1.3, Monocytes # (Auto) 0.9, Eosinophils # (Auto) 0.0, Basophils # (Auto) 0.0, Sodium Level 130L, Potassium Level 4.6, Chloride Level 98, Carbon Dioxide Level 25, Anion Gap 7, Blood Urea Nitrogen 10, Creatinine 0.69, Estimat Glomerular Filtration Rate > 60, BUN/ Creatinine Ratio 14, Glucose Level 122H, Calcium Level 8.4L, Phosphorus Level 2.2L, Magnesium Level 1.9, Total Bilirubin 0.4, Aspartate Amino Transf (AST/SGOT ) 56H, Alanine Aminotransferase (ALT/SGPT) 24, Alkaline Phosphatase 56, Total Protein 5.5L, Albumin 2.9L Assessment/Plan Assessment/Plan Assess & Plan/Chief Complaint S/P T9-Pelvis fusion for deformity ABLA Continue PT and pain control Place cotto due to urinary retention Okay from spine standpoint to transfer to floor Doesn't need brace when in bed or chair, only when up on her feet. Clinical Quality Measures DVT/VTE Risk/Contraindication: Risk Factor Score Per Nursin RFS Level Per Nursing on Admit: 3=High TESFAYE WHARTON Apr 13, 2017 10:27
--- NOTE | 2017-04-13 11:09 | Consultation-Hospitalist ---
HPI History of Present Illness: HPI/Chief Complaint LATE ENTRY DUE TO INADVERTENTLY MISSED DOCUMENTATION YESTERDAY 04/12/17 BUT SEEN AND EXAMINED ON 04/12/17 AT 1100 CC: Medical management following extensive spinal surgery uncomplicated per Dr De Los Santos HPI: This is a 61-year-old white female of [facility] that underwent an extensive spine surgery that was uncomplicated but admitted to the ICU for close monitoring due to the blood loss and mild hypotension during surgery. She required 2 units of packed red blood cells and overall had stabilized and had no issues since surgery except for current urinary retention. I did evaluate the patient yesterday and performed interview and exam but inadvertently missed the documentation of a consultation note. At this current time she has a sodium level CXXX so IV fluids will be changed to normal saline at 50 mL an hour until able to discontinue when she has adequate by mouth intake in addition I will place fluid restriction of free water to 1200 mL a day. Hemoglobin did decrease a bit more to 8.7 likely the cause of her near syncopal episode yesterday when she was getting up with physical therapy. She at this current time is having urinary retention sterile in and out catheter was initiated with removal of the retention but it still continues so Treviño catheter will be administered and I will place on Urecholine and Pyridium. Source: patient, RN/MD Exam Limitations: no limitations Date Seen 04/13/17 Attending Physician Akash De Los Santos MD PCP Moni Johnson DO Referring Physician Date of Admission Apr 11, 2017 at 07:32 Home Medications & Allergies Home Medications Reviewed patient Home Medication Reconciliation Form Allergies Allergies Coded Allergies Penicillins (Verified Allergy, Unknown, 04/03/17) alendronate sodium (Verified Allergy, Unknown, 04/03/17) bacitracin (Verified Allergy, Unknown, 04/03/17) lactose (Verified Allergy, Unknown, 04/03/17) neomycin (Verified Allergy, Unknown, 04/03/17) polymyxin B (Verified Allergy, Unknown, 04/03/17) raloxifene (Verified Allergy, Unknown, leg swelling, 04/03/17) Past Pzikisa-Xnokjm-Kpqayt Hx Patient Social History Marrital Status: single Alcohol Use: Denies Use Recreational Drug Use: No Smoking Status: Never a Smoker Physical Abuse Screen: No Sexual Abuse: No Recent Foreign Travel: No Contact w/other who traveled: No Recent Hopitalizations: Yes Recent Infectious Disease Expo: No Seasonal Allergies Seasonal Allergies: No Surgeries HX Surgeries: Yes (jaw resection) Respiratory Hx Respiratory Disorders: No Cardiovascular Hx Cardiovascular Disorders: No Neurological Hx Neurological Disorders: No Reproductive System Hx Reproductive Disorders: No Genitourinary Hx Genitourinary Disorders: No Gastrointestinal Hx Gastrointestinal Disorders: No Musculoskeletal Hx Musculoskeletal Disorders: Yes Musculoskeletal Disorders: Scoliosis Endocrine Hx Endocrine Disorders: No HEENT HX ENT Disorders: No Cancer Hx Cancer: No Psychosocial Hx Psychiatric Problems: No Integumentary HX Skin/Integumentary Disorder: No Blood Transfusions Hx Blood Disorders: No Family Medical History Family Hx: Cardiovascular disease 19 MOTHER Diabetes mellitus 19 MOTHER Hypertension 19 MOTHER Myocardial infarction 19 MOTHER Psychosocial problem 19 FATHER 19 MOTHER G8 SISTER Review of Systems Constitutional: see HPI EENTM: no symptoms reported Respiratory: no symptoms reported Cardiovascular: no symptoms reported Gastrointestinal: no symptoms reported Genitourinary: hesitancy Musculoskeletal: back pain Skin: no symptoms reported Psychiatric/Neurological: Anxiety All Other Systems Reviewed Negative Unless Noted: Yes Physical Exam Physical Exam Vital Signs Vital Sign - Last 12Hours 04/11/17 08:04 Temp 96.8 Pulse 96 Resp 20 B/P (MAP) 140/87 Pulse Ox 100 Capillary Refill : General Appearance: No Apparent Distress, WD/WN, Chronically ill, Thin Eyes: Bilateral Eye Normal Inspection, Bilateral Eye PERRL HEENT: PERRL/EOMI, Normal ENT Inspection, Pharynx Normal Neck: Full Range of Motion, Normal Inspection, Non Tender, Supple, Carotid Bruit Respiratory: Chest Non Tender, Lungs Clear, Normal Breath Sounds, No Accessory Muscle Use, No Respiratory Distress Cardiovascular: Regular Rate, Rhythm, No Edema, No Gallop, No JVD, No Murmur, Normal Peripheral Pulses Gastrointestinal: Normal Bowel Sounds, No Organomegaly, No Pulsatile Mass, Non Tender, Soft Back: Decreased Range of Motion, Vertebral Tenderness, Other (post op state) Extremity: Normal Capillary Refill, Normal Inspection, Normal Range of Motion, Non Tender, No Calf Tenderness, No Pedal Edema Neurologic/Psychiatric: Alert, Oriented x3, No Motor/Sensory Deficits, Normal Mood/Affect Skin: Normal Color, Warm/Dry Lymphatic: No Adenopathy Results Results/Procedures Lab Laboratory Tests 04/11/17 12:18 04/11/17 14:12 04/12/17 04:12 04/13/17 03:38 Assessment/Plan Admission Diagnosis Assessment: Status post uncomplicated extensive spinal surgery uncomplicated I Dr. De Los Santos to correct severe scoliosis POD # 2 Acute urinary retention frequent Treviño catheter to administration and Pyridium and Urecholine Postop anemia due to acute blood loss checking iron level and empirically treating with iron infusions Mild hyponatremia due to IV fluid administration changing to normal saline and decrease in great with fluid restriction for free water by mouth Post op ileus Assessment and Plan Plan: Fluid restriction 1200 mL per day Change IV fluids SCDs for DVT prophylaxis Pain medication Monitor hemoglobin Check iron level but empirically placed on vent for due to acute blood loss likely decreased iron level Fall risk Ice chips until ileus resolved Clinical Quality Measures DVT/VTE Risk/Contraindication: Risk Factor Score Per Nursin RFS Level Per Nursing on Admit: 3=High HAYDER VALLES DO Apr 13, 2017 11:09
[2017-04-13] MEDS ORDERED: IRON SUCROSE INJECTION 200 MG in NS (IVPB) 100 ML IV SCH (12:00)
[2017-04-13] MEDS: BETHANECHOL 10 MG (URECHOLINE) TAB PO SCH ×3 (12:32→22:12)
[2017-04-13] MEDS: NS IV 1000 ML 1,000 ML IV SCH (12:33)
--- NOTE | 2017-04-13 12:44 | Anesthesia-General Post-Op ---
General Post Op Complications Complications None Follow Up Care/Instructions Patient Instructions None needed. Anesthesia/Patient Condition Patient Condition Pt condition improving. No longer hypotensive or dizzy. Sitting up in bed, reports no anesthesia issues. PINKY MARTÍNEZ CRNA Apr 13, 2017 12:44
[2017-04-13] MEDS: PHENAZOPYRIDINE 100 MG (PYRIDIUM) TABLET PO SCH ×2 (13:34→17:22)
[2017-04-13] MEDS: LORazepam 0.5 MG (ATIVAN) TABLET PO SCH (22:12)
[2017-04-14] VITALS (7 sets, daily range): BP systolic 110–150; BP diastolic 67–82
[2017-04-14] MEDS: CYCLOBENZAPRINE 10 MG (FLEXERIL) TAB PO PRN (00:07)
[2017-04-14] MEDS: oxyCODONE/APAP 5/325MG (PERCOCET 5) TABLET PO PRN ×3 (00:07→17:57)
[2017-04-14 05:08] LABS: BASOPHILS % (AUTO) 0 % (0-10); EOSINOPHILS % (AUTO) 0 % (0-10); LYMPHOCYTES # (AUTO) 1.3 X 10^3 (1.0-4.0); LYMPHOCYTES % (AUTO) 15 % (12-44); MEAN CORPUSCULAR HEMOGLOBIN 29 PG (25-34); MEAN CORPUSCULAR HGB CONC 33 G/DL (32-36); MEAN CORPUSCULAR VOLUME 88 FL (80-99); MEAN PLATELET VOLUME 9.1 FL (7.4-10.4); MONOCYTES # (AUTO) 0.5 X 10^3 (0.0-1.0); MONOCYTES % (AUTO) 6 % (0-12); NEUTROPHILS # (AUTO) 6.9 X 10^3 (1.8-7.8); NEUTROPHILS % (AUTO) 79 % (42-75); PLATELET COUNT 214 10^3/uL (130-400); RED BLOOD COUNT 2.55 10^6/uL (4.35-5.85); RED CELL DISTRIBUTION WIDTH 13.4 % (10.0-14.5); WHITE BLOOD COUNT 8.8 10^3/uL (4.3-11.0)
[2017-04-14 05:29] LABS: ANION GAP 8 MMOL/L (5-14); BLOOD UREA NITROGEN 7 MG/DL (7-18); BUN/CREATININE RATIO 13; CALCIUM 8.1 MG/DL (8.5-10.1); CARBON DIOXIDE 24 MMOL/L (21-32); CHLORIDE 100 MMOL/L (98-107); CREATININE SERUM 0.52 MG/DL (0.60-1.30); GFR ESTIMATED > 60; GLUCOSE 93 MG/DL (70-105); MAGNESIUM 1.8 MG/DL (1.8-2.4); PHOSPHORUS 2.2 MG/DL (2.3-4.7); POTASSIUM 3.4 MMOL/L (3.6-5.0); SODIUM 132 MMOL/L (135-145)
[2017-04-14] MEDS: MULTIVIT W/MINERALS TAB (THERAGRAN M) PO SCH (06:18)
[2017-04-14] MEDS: BETHANECHOL 10 MG (URECHOLINE) TAB PO SCH ×4 (06:18→21:04)
[2017-04-14] MEDS: NS IV 1000 ML 1,000 ML IV SCH (08:57)
[2017-04-14] MEDS: FAMOTIDINE 20 MG (PEPCID) TABLET PO SCH ×2 (08:58→21:04)
[2017-04-14] MEDS: SENNOSIDES 8.6 MG (SENOKOT) TAB PO SCH ×2 (08:58→21:04)
[2017-04-14] MEDS: PHENAZOPYRIDINE 100 MG (PYRIDIUM) TABLET PO SCH ×3 (08:58→18:00)
[2017-04-14] MEDS: DOCUSATE SODIUM 100 MG (COLACE) CAP PO SCH ×2 (08:58→21:04)
[2017-04-14] MEDS: FLUoxetine HCL 20 MG (PROzac) CAP PO SCH (08:59)
--- NOTE | 2017-04-14 09:55 | Physical Therapy Daily Note ---
PT Daily Note-Current Subjective Patient agrees to PT. Pain Numeric Pain Scale: 5-Moderate Pain Location: Medial, Upper, Lower Location Body Site: Back Pain Description: Acute Mental Status Patient Orientation: Normal For Age Attachments: Drains, Treviño Catheter, IV Transfers Functional [place] Measure 0=Not Assessed/NA 4=Minimal Assistance 1=Total Assistance 5=Supervision or Setup 2=Maximal Assistance 6=Modified [place] 3=Moderate Assistance 7=Complete IndependenceIRFPAI Quality Coding Scale 6 Independent with activity with or without an assistive device 5 Patient requires set up or clean up by helper. Patient completes activity by themselves 4 Supervision or touching assist (CGA). [place] provide cues , steadying assist 3 The helper provides less than half the effort to complete the activity 2 The helper provides more than half the effort to complete the activity 1 Dependent. The helper does all the effort to complete an activity 7 Patient refused to complete or attempt activity 9 The patient did not perform the activity before the current illness or injury 88 Not attempted due to Medical conditions or safety concerns Transfers (B, C, W/C) (FIM): 4 Scootin Rollin Supine to/from Sit: 5 Sit to/from Stand: 4 CGA for safety Gait Training Gait (FIM): 2 Distance (FIM): 8=195-28 ft Distance: 100' Gait Level of Assist: 4 Gait Persons Needed: 1 Gait Assistive Device: FWW slow and functional Exercises Supine Ex: Ankle pumps, Quad Set, Heel Slides Supine Reps: 15 Seated Therapy Exercises: Ankle pumps, Long arc quads Seated Reps: 15 Assessment Patient tolerated treatment well and is up in recliner with needs met. Patient lives independently and from a PT standpoint, would benefit from ARU to ensure safe return to home at maximum LOF. PT Short Term Goals Short Term Goals Transfers (B,C,W/C) (FIM): 5 PT Melter Assistant Goals Detention Goals PT Detention Goals Time Frame: Apr 25, 2017 Transfers (B,C,W/C) (FIM): 6 Gait (FIM): 6 Gait distance (FIM): 3=150 ft Distance: 150 Gait Level of Assist: 6 Gait Assistive Device: FWW # of Steps: 5 Stairs Level Of Assist: 5 PT Plan Treatment/Plan Treatment Plan: Continue Plan of Care Treatment Plan: Bed Mobility, Education, Functional Activity Vinicius, Functional Strength, Gait, Safety, Therapeutic Exercise, Transfers Treatment Duration: Apr 25, 2017 Visits Per Week: 11 Minutes/Day (M-F): 30 Minutes/Day (Sat/[place]): 15 Discharge Recommendations Therapy D/C Recommendations: Acute Rehab Time/GCodes Time In: 923 Time Out: 946 Total Billed Treatment Time: 23 Total Billed Treatment 1 visit GT 15 min EX 8 min KALEIGH PATRICIA PT Apr 14, 2017 09:55
--- NOTE | 2017-04-14 10:19 | Diagnostic Imaging Report ---
INDICATION: Post operative T9 to pelvic fusion. FINDINGS: There is posterior fusion hardware involving T9 to the sacrum with screws through the SI joints seen. There is also anterior fusion hardware noted along L4-5 and L5-S1. There is satisfactory alignment of the spine with no significant residual scoliosis seen. The hardware appears intact. IMPRESSION: Spine fusion from T9 to the pelvis in good alignment. Dictated by: Dictated on workstation # [id number]
--- NOTE | 2017-04-14 10:46 | Progress Note (SOAP) ---
Subjective Time Seen by Provider: 10:44 Subjective/Events-last exam Feeling better, Pain ok Still using catheter Objective Exam Vital Signs Date Time Temp Pulse Resp B/P (MAP) Pulse Ox O2 Delivery O2 Flow Rate FiO2 04/14/17 08:00 98.9 103 18 110/69 97 04/14/17 04:00 97.0 105 14 113/67 96 04/14/17 00:00 99.3 109 18 124/76 96 04/13/17 19:46 98.9 102 18 119/77 98 04/13/17 15:59 98.2 96 20 125/84 100 04/13/17 13:00 101 04/13/17 12:00 98 14 122/70 98 04/13/17 11:00 114 19 129/77 99 I & O 04/14/17 07:00 Intake Total 1620 ml Output Total 1115 ml Balance 505 ml Capillary Refill : General Appearance: No Apparent Distress Respiratory: No Accessory Muscle Use, No Respiratory Distress Cardiovascular: Regular Rate, Rhythm, Normal Peripheral Pulses Gastrointestinal: soft, no organomegaly Extremity: Non Tender, No Calf Tenderness, Pedal Edema Neurologic/Psychiatric: Alert, Oriented x3, No Motor/Sensory Deficits Results Lab Laboratory Tests 04/14/17 04:35: White Blood Count 8.8, Red Blood Count 2.55L, Hemoglobin 7.4L, Hematocrit 22L, Mean Corpuscular Volume 88, Mean Corpuscular Hemoglobin 29, Mean Corpuscular Hemoglobin Concent 33, Red Cell Distribution Width 13.4, Platelet Count 214, Mean Platelet Volume 9.1, Neutrophils (%) (Auto) 79H, Lymphocytes (%) (Auto) 15 , Monocytes (%) (Auto) 6, Eosinophils (%) (Auto) 0, Basophils (%) (Auto) 0, Neutrophils # (Auto) 6.9, Lymphocytes # (Auto) 1.3, Monocytes # (Auto) 0.5, Eosinophils # (Auto) 0.0, Basophils # (Auto) 0.0, Sodium Level 132L, Potassium Level 3.4L, Chloride Level 100, Carbon Dioxide Level 24, Anion Gap 8, Blood Urea Nitrogen 7, Creatinine 0.52L, Estimat Glomerular Filtration Rate > 60, BUN/ Creatinine Ratio 13, Glucose Level 93, Calcium Level 8.1L, Phosphorus Level 2.2L , Magnesium Level 1.8 Assessment/Plan Assessment/Plan Assess & Plan/Chief Complaint S/P T9-Pelvis PSF for deformity Acute Blood Loss Anemia Hyponatremia Hypokalemia Plan: Continue to monitor and replace lytes. PT Clinical Quality Measures DVT/VTE Risk/Contraindication: Risk Factor Score Per Nursin RFS Level Per Nursing on Admit: 3=High KAREN MARY MD Apr 14, 2017 10:46
[2017-04-14] MEDS: POTASSIUM CL 10MEQ/50ML IVPB 50 ML IV SCH ×4 (11:03→14:55)
[2017-04-14] MEDS: amLODIPine 2.5MG (NORVASC) TAB PO SCH (11:56)
--- NOTE | 2017-04-14 14:19 | Occupational Ther Daily Note ---
OT Current Status-Daily Note Subjective No pain reported. Appearance Pt. up in chair. Agrees to spongebathe. Mental Status/Objective Patient Orientation: Person, Place, Time, Situation Functional [place] Measure 0=Not Assessed/NA 4=Minimal Assistance 1=Total Assistance 5=Supervision or Setup 2=Maximal Assistance 6=Modified [place] 3=Moderate Assistance 7=Complete [place] Attachments: Drains, Treviño Catheter, IV ADL-Treatment Bathing (FIM): 3 (Pt. requires assistance to bathe her feet in sitting.) Upper Body (FIM): 4 (Min assist needed to don hospital gown and brace. No other clothing available.) Lower Body Dressing (FIM): 2 (Pt. requires max assist to doff and don socks.) Transfers (B, C, W/C) (FIM): 4 (CGA in stance and with balance.) Pt. able to complete spongebath up in chair. Requires assistance to reach feet and don brace. Pt. agrees to ambulate with therapist after ADLs. Ambulated with CGA approximately 30 feet in lewis. Able to transfer back to bed with all needs met, with SBA needed to get feet into bed. Able to doff her brace on side of bed before transfer back to bed. Education OT Patient Education: Correct positioning, Modified ADL techniques, Progress toward Goal/Update tx plan, Purpose of tx/functional activities, Reviewed precautions, Rehab process, Transfer techniques Teaching Recipient: Patient Teaching Methods: Demonstration, Discussion Response to Teaching: Verbalize Understanding, Return Demonstration OT Short Term Goals Short Term Goals Time Frame: Apr 19, 2017 Eating(FIM): 6 Grooming(FIM): 5 Bathing(FIM): 4 Upper Body Dressing(FIM): 4 Lower Body Dressing(FIM): 4 Toileting(FIM): 4 Transfers (B,C,W/C) (FIM): 5 Toilet/Commode Transfer(FIM): 5 Shower Transfer(FIM): 4 Additional Short Term Goals: 1-Demonstrate ADL Tasks, 2-Verbalize Understanding , 3-ImproveStrength/Vinicius 1=Demonstrate adherence to instructed precautions during ADL tasks. 2=Patient will verbalize/demonstrate understanding of assistive devices/ modifications for ADL. 3=Patient will improve strength/tolerance for activity to enable patient to perform ADL's. OT Senior Care Goals Senior Care Goals Time Frame: Apr 26, 2017 Eating (FIM): 6 Grooming(FIM): 6 Bathing(FIM): 5 Upper Body Dressing(FIM): 6 Lower Body Dressing(FIM): 6 Toileting(FIM): 6 Transfers (B,C,W/C) (FIM): 6 Toilet/Commode Transfer(FIM): 6 Shower Transfer(FIM): 5 Additional Goals: 1-Demonstrate ADL Tasks, 2-Verbalize Understanding, 3- ImproveStrength/Vinicius 1=Demonstrate adherence to instructed precautions during ADL tasks. 2=Patient will verbalize/demonstrate understanding of assistive devices/ modifications for ADL. 3=Patient will improve strength/tolerance for activity to enable patient to perform ADL's. OT Education/Plan Problem List/Assessment Assessment: Decreased Activ Tolerance, Decreased UE Strength, Dependent Transfers, Impaired I ADL's, Impaired Self-Care Skills Discharge Recommendations Plan/Recommendations: Continue POC Therapy D/C Recommendations: Acute Rehab Treatment Plan/Plan of Care Treatment,Training & Education: Yes Patient would benefit from OT for education, treatment and training to promote independence in ADL's, mobility, safety and/or upper extremity function for ADL' s. Plan of Care: ADL Retraining, Caregiver Training, Functional Mobility, UE Funct Exercise/Act Treatment Duration: Apr 26, 2017 Visits Per Week: 5-6 Rehab Potential: Good Time/GCodes Start Time: 11:15 Stop Time: 11:40 Total Time Billed (hr/min): 25 Billed Treatment Time 1, ADL x 25 minutes ALTON MARKS OT Apr 14, 2017 14:19
--- NOTE | 2017-04-14 14:26 | Physical Therapy Daily Note ---
PT Daily Note-Current Subjective Patient reports she is fatigues, however, agrees to PT. Pain Numeric Pain Scale: 5-Moderate Pain Location: Medial, Upper, Lower Location Body Site: Back Pain Description: Acute Mental Status Patient Orientation: Normal For Age Attachments: Treviño Catheter, IV Transfers Functional [place] Measure 0=Not Assessed/NA 4=Minimal Assistance 1=Total Assistance 5=Supervision or Setup 2=Maximal Assistance 6=Modified [place] 3=Moderate Assistance 7=Complete IndependenceIRFPAI Quality Coding Scale 6 Independent with activity with or without an assistive device 5 Patient requires set up or clean up by helper. Patient completes activity by themselves 4 Supervision or touching assist (CGA). [place] provide cues , steadying assist 3 The helper provides less than half the effort to complete the activity 2 The helper provides more than half the effort to complete the activity 1 Dependent. The helper does all the effort to complete an activity 7 Patient refused to complete or attempt activity 9 The patient did not perform the activity before the current illness or injury 88 Not attempted due to Medical conditions or safety concerns Transfers (B, C, W/C) (FIM): 4 Scootin Rollin Sit to/from Stand: 4 Gait Training Gait (FIM): 4 Distance (FIM): 3=150 ft Distance: 175' Gait Level of Assist: 4 Gait Persons Needed: 1 Gait Assistive Device: FWW slow, steady, functional with FWW Exercises Supine Ex: Ankle pumps, Quad Set, Heel Slides Supine Reps: 10 Assessment Patient tolerated treatment well and returned to bed with needs met. PT Short Term Goals Short Term Goals Transfers (B,C,W/C) (FIM): 5 PT Operations Consultant Goals Operations Consultant Goals PT Operations Consultant Goals Time Frame: Apr 25, 2017 Transfers (B,C,W/C) (FIM): 6 Gait (FIM): 6 Gait distance (FIM): 3=150 ft Distance: 150 Gait Level of Assist: 6 Gait Assistive Device: FWW # of Steps: 5 Stairs Level Of Assist: 5 PT Plan Treatment/Plan Treatment Plan: Continue Plan of Care Treatment Plan: Bed Mobility, Education, Functional Activity Vinicius, Functional Strength, Gait, Safety, Therapeutic Exercise, Transfers Treatment Duration: Apr 25, 2017 Visits Per Week: 11 Minutes/Day (M-F): 30 Minutes/Day (Sat/[place]): 15 Discharge Recommendations Therapy D/C Recommendations: Acute Rehab Time/GCodes Time In: 1405 Time Out: 1415 Total Billed Treatment Time: 10 Total Billed Treatment 1 visit GT 10 min KALEIGH PATRICIA PT Apr 14, 2017 14:26
--- NOTE | 2017-04-14 14:42 | Progress Note (SOAP) ---
Subjective Subjective/Events-last exam Afebrile. Worsened anemia this am. She denies complaints and states she is feeling fairly well. She is interested in a trial of d/c cotto. No BM yet, but has started passing gas. Review of Systems Date Seen by Provider: Apr 14, 2017 Time Seen by Provider: 09:30 Objective Exam Last Set of Vital Signs Vital Signs Date Time Temp Pulse Resp B/P (MAP) Pulse Ox O2 Delivery O2 Flow Rate FiO2 04/14/17 12:00 98.3 97 20 144/82 97 Capillary Refill : I&O Intake and Output 04/14/17 00:00 Intake Total 1720 ml Output Total 1050 ml Balance 670 ml Intake Oral 1720 ml Output Urine Total 725 ml Drainage Total 325 ml Bladder Scan Volume Amount 437 ml General: Alert, No Acute Distress Lungs: Clear to Auscultation, Normal Air Movement Heart: No Murmurs, Other (tachycardic) Abdomen: Normal Bowel Sounds, Soft Neuro: Normal Speech Psych/Mental Status: Mental Status NL Results/Procedures Lab Laboratory Tests 04/14/17 04:35: White Blood Count 8.8, Red Blood Count 2.55L, Hemoglobin 7.4L, Hematocrit 22L, Mean Corpuscular Volume 88, Mean Corpuscular Hemoglobin 29, Mean Corpuscular Hemoglobin Concent 33, Red Cell Distribution Width 13.4, Platelet Count 214, Mean Platelet Volume 9.1, Neutrophils (%) (Auto) 79H, Lymphocytes (%) (Auto) 15 , Monocytes (%) (Auto) 6, Eosinophils (%) (Auto) 0, Basophils (%) (Auto) 0, Neutrophils # (Auto) 6.9, Lymphocytes # (Auto) 1.3, Monocytes # (Auto) 0.5, Eosinophils # (Auto) 0.0, Basophils # (Auto) 0.0, Sodium Level 132L, Potassium Level 3.4L, Chloride Level 100, Carbon Dioxide Level 24, Anion Gap 8, Blood Urea Nitrogen 7, Creatinine 0.52L, Estimat Glomerular Filtration Rate > 60, BUN/ Creatinine Ratio 13, Glucose Level 93, Calcium Level 8.1L, Phosphorus Level 2.2L , Magnesium Level 1.8 04/14/17 12:39: Lab Scanned Report Transfusion Reaction Form Assessment/Plan Assessment/Plan Admission Dx Status post uncomplicated extensive spinal surgery by Dr. De Los Santos to correct severe scoliosis Acute urinary retention post-op Postop anemia due to acute blood loss Mild hyponatremia due to IV fluid administration Post op ileus Plan Status post uncomplicated extensive spinal surgery by Dr. De Los Santos to correct severe scoliosis -Management per Dr. De Los Santos -IRF consult Acute urinary retention post-op -Started on bethanechol and has had cotto for 2 days, will remove for voiding trial Postop anemia due to acute blood loss -6/[address] De Los Santos -Iron infusions started empirically per hospitalist Mild hyponatremia -Improving with fluid restriction, monitor Post op ileus -Improving- passing gas Diagnosis/Problems: Clinical Quality Measures DVT/VTE Risk/Contraindication: Risk Factor Score Per Nursin RFS Level Per Nursing on Admit: 3=High ANG MARTINEZ MD Apr 14, 2017 2:42 pm
[2017-04-14] MEDS: LORazepam 0.5 MG (ATIVAN) TABLET PO SCH (21:04)
[2017-04-15] MEDS: morphine INJ 10 MG/ML 1ML (SYR OR VIAL) IVP PRN (03:27)
[2017-04-15] MEDS: NS IV 1000 ML 1,000 ML IV SCH (03:31)
[2017-04-15 05:19] LABS: BASOPHILS % (AUTO) 0 % (0-10); EOSINOPHILS % (AUTO) 1 % (0-10); LYMPHOCYTES # (AUTO) 0.9 X 10^3 (1.0-4.0); LYMPHOCYTES % (AUTO) 14 % (12-44); MEAN CORPUSCULAR HEMOGLOBIN 30 PG (25-34); MEAN CORPUSCULAR HGB CONC 33 G/DL (32-36); MEAN CORPUSCULAR VOLUME 90 FL (80-99); MEAN PLATELET VOLUME 9.4 FL (7.4-10.4); MONOCYTES # (AUTO) 0.4 X 10^3 (0.0-1.0); MONOCYTES % (AUTO) 6 % (0-12); NEUTROPHILS # (AUTO) 5.1 X 10^3 (1.8-7.8); NEUTROPHILS % (AUTO) 79 % (42-75); PLATELET COUNT 199 10^3/uL (130-400); RED BLOOD COUNT 2.38 10^6/uL (4.35-5.85); RED CELL DISTRIBUTION WIDTH 14.4 % (10.0-14.5); WHITE BLOOD COUNT 6.4 10^3/uL (4.3-11.0)
--- NOTE | 2017-04-15 06:10 | Progress Note (SOAP) ---
Subjective Time Seen by Provider: 06:09 Subjective/Events-last exam Feeling better, no complaints today Objective Exam Vital Signs Date Time Temp Pulse Resp B/P (MAP) Pulse Ox O2 Delivery O2 Flow Rate FiO2 04/14/17 23:50 98.5 109 16 150/80 97 04/14/17 19:20 99.3 103 17 123/73 96 04/14/17 15:20 98.3 95 20 127/75 98 04/14/17 12:00 98.3 97 20 144/82 97 04/14/17 08:00 98.9 103 18 110/69 97 I & O 04/15/17 07:00 Intake Total 2872 ml Output Total 1245 ml Balance 1627 ml Capillary Refill : General Appearance: No Apparent Distress Respiratory: No Accessory Muscle Use, No Respiratory Distress Cardiovascular: Regular Rate, Rhythm, Normal Peripheral Pulses Gastrointestinal: non tender, soft Extremity: Normal Capillary Refill, Normal Inspection, No Calf Tenderness Neurologic/Psychiatric: Alert, Oriented x3, No Motor/Sensory Deficits Other comments Labs Pending Results Lab Laboratory Tests 04/14/17 12:39: Lab Scanned Report Transfusion Reaction Form 04/15/17 04:28: White Blood Count 6.4, Red Blood Count 2.38L, Hemoglobin 7.1L, Hematocrit 21L, Mean Corpuscular Volume 90, Mean Corpuscular Hemoglobin 30, Mean Corpuscular Hemoglobin Concent 33, Red Cell Distribution Width 14.4, Platelet Count 199, Mean Platelet Volume 9.4, Neutrophils (%) (Auto) 79H, Lymphocytes (%) (Auto) 14 , Monocytes (%) (Auto) 6, Eosinophils (%) (Auto) 1, Basophils (%) (Auto) 0, Neutrophils # (Auto) 5.1, Lymphocytes # (Auto) 0.9L, Monocytes # (Auto) 0.4, Eosinophils # (Auto) 0.0, Basophils # (Auto) 0.0 04/15/17 05:53: Assessment/Plan Assessment/Plan Assess & Plan/Chief Complaint S/P T9-Pelvis PSF for deformity Acute Blood Loss Anemia Hyponatremia Hypokalemia Plan: Likely to Inpt Rehab today Clinical Quality Measures DVT/VTE Risk/Contraindication: Risk Factor Score Per Nursin RFS Level Per Nursing on Admit: 3=High KAREN MARY MD Apr 15, 2017 6:10 am
[2017-04-15] MEDS: BETHANECHOL 10 MG (URECHOLINE) TAB PO SCH ×2 (06:20→11:43)
[2017-04-15] MEDS: MULTIVIT W/MINERALS TAB (THERAGRAN M) PO SCH ×2 (06:20→06:21)
[2017-04-15 06:29] LABS: ANION GAP 8 MMOL/L (5-14); BLOOD UREA NITROGEN 8 MG/DL (7-18); BUN/CREATININE RATIO 15; CALCIUM 8.4 MG/DL (8.5-10.1); CARBON DIOXIDE 25 MMOL/L (21-32); CHLORIDE 102 MMOL/L (98-107); CREATININE SERUM 0.54 MG/DL (0.60-1.30); GFR ESTIMATED > 60; GLUCOSE 86 MG/DL (70-105); MAGNESIUM 1.7 MG/DL (1.8-2.4); PHOSPHORUS 2.2 MG/DL (2.3-4.7); POTASSIUM 3.4 MMOL/L (3.6-5.0); SODIUM 135 MMOL/L (135-145)
[2017-04-15 08:00] VITALS: BP 114/71
[2017-04-15] MEDS: amLODIPine 2.5MG (NORVASC) TAB PO SCH (09:28)
[2017-04-15] MEDS: DOCUSATE SODIUM 100 MG (COLACE) CAP PO SCH (09:28)
[2017-04-15] MEDS: SENNOSIDES 8.6 MG (SENOKOT) TAB PO SCH (09:28)
[2017-04-15] MEDS: FLUoxetine HCL 20 MG (PROzac) CAP PO SCH (09:28)
[2017-04-15] MEDS: PHENAZOPYRIDINE 100 MG (PYRIDIUM) TABLET PO SCH (09:28)
[2017-04-15] MEDS ORDERED: KCL 20 MEQ TAB (K-DUR) PO NR (09:34)
[2017-04-15] MEDS ORDERED: MAGNESIUM 1 GM/100 ML IVPB 100 ML IV NR (09:34)
[2017-04-15] MEDS: FAMOTIDINE 20 MG (PEPCID) TABLET PO SCH (09:46)
[2017-04-15 12:01] VITALS: BP 114/71
--- NOTE | 2017-04-15 13:50 | Progress Note (SOAP) ---
Subjective Subjective/Events-last exam Afebrile, no acute events. Catheter was not removed yet. No BM yet, still passing gas. Inpatient rehab has accepted for today. Review of Systems Date Seen by Provider: Apr 15, 2017 Time Seen by Provider: 11:20 Objective Exam Last Set of Vital Signs Vital Signs Date Time Temp Pulse Resp B/P (MAP) Pulse Ox O2 Delivery O2 Flow Rate FiO2 04/15/17 12:01 103 20 114/71 98 04/15/17 08:00 98.5 Capillary Refill : I&O Intake and Output 04/15/17 00:00 Intake Total 2972 ml Output Total 1865 ml Balance 1107 ml Intake Oral 1772 ml IV Total 1200 ml Output Urine Total 1575 ml Drainage Total 290 ml General: Alert, No Acute Distress Neuro: Normal Speech Psych/Mental Status: Mental Status NL Results/Procedures Lab Laboratory Tests 04/15/17 04:28: White Blood Count 6.4, Red Blood Count 2.38L, Hemoglobin 7.1L, Hematocrit 21L, Mean Corpuscular Volume 90, Mean Corpuscular Hemoglobin 30, Mean Corpuscular Hemoglobin Concent 33, Red Cell Distribution Width 14.4, Platelet Count 199, Mean Platelet Volume 9.4, Neutrophils (%) (Auto) 79H, Lymphocytes (%) (Auto) 14 , Monocytes (%) (Auto) 6, Eosinophils (%) (Auto) 1, Basophils (%) (Auto) 0, Neutrophils # (Auto) 5.1, Lymphocytes # (Auto) 0.9L, Monocytes # (Auto) 0.4, Eosinophils # (Auto) 0.0, Basophils # (Auto) 0.0 04/15/17 05:53: Sodium Level 135, Potassium Level 3.4L, Chloride Level 102, Carbon Dioxide Level 25, Anion Gap 8, Blood Urea Nitrogen 8, Creatinine 0.54L, Estimat Glomerular Filtration Rate > 60, BUN/Creatinine Ratio 15, Glucose Level 86, Calcium Level 8.4L, Phosphorus Level 2.2L, Magnesium Level 1.7L Assessment/Plan Assessment/Plan Admission Dx Status post uncomplicated extensive spinal surgery by Dr. De Los Santos to correct severe scoliosis Acute urinary retention post-op Postop anemia due to acute blood loss Mild hyponatremia due to IV fluid administration Post op ileus Plan Status post uncomplicated extensive spinal surgery by Dr. De Los Santos to correct severe scoliosis -Management per Dr. De Los Santos -IRF consult- admitting to rehab 04/15 Acute urinary retention post-op -Started on bethanechol and has had cotto for 2 days, will remove for voiding trial Postop anemia due to acute blood loss -04/[address] De Los Santos -Iron infusions started empirically per hospitalist Mild hyponatremia -Improving with fluid restriction, monitor -04/15 resolved, but low magnesium and potassium replaced today Post op ileus -Improving- passing gas Diagnosis/Problems: Clinical Quality Measures DVT/VTE Risk/Contraindication: Risk Factor Score Per Nursin RFS Level Per Nursing on Admit: 3=High ANG MARTINEZ MD Apr 15, 2017 13:50
== END 2017-04-15 11:45 | DRG 454 ==
LOC: 4TH 07:32 → SURG 07:33 → EDSTATUS 08:00 → ICU 16:10 → 4TH 04-13 15:28
PROVIDERS: ADMIT Orthopaedic Surgery Orthopaedic Surgery of the Spine; ATTEND Orthopaedic Surgery Orthopaedic Surgery of the Spine
PROC: 0SG30A0 Fusion of Lumbosacral Joint with Interbody Fusion Device, Anterior Approach, Anterior Column, Open Approach (ICD-10-PCS; 2017-04-11)
PROC: 0RG7071 Fusion of 2 to 7 Thoracic Vertebral Joints with Autologous Tissue Substitute, Posterior Approach, Posterior Column, Open Approach (ICD-10-PCS; 2017-04-11)
PROC: 0RGA071 Fusion of Thoracolumbar Vertebral Joint with Autologous Tissue Substitute, Posterior Approach, Posterior Column, Open Approach (ICD-10-PCS; 2017-04-11)
PROC: 0SG1071 Fusion of 2 or more Lumbar Vertebral Joints with Autologous Tissue Substitute, Posterior Approach, Posterior Column, Open Approach (ICD-10-PCS; 2017-04-11)
PROC: 0SG3071 Fusion of Lumbosacral Joint with Autologous Tissue Substitute, Posterior Approach, Posterior Column, Open Approach (ICD-10-PCS; 2017-04-11)
PROC: 0SG507Z Fusion of Sacrococcygeal Joint with Autologous Tissue Substitute, Open Approach (ICD-10-PCS; 2017-04-11)
PROC: 0SG00A0 Fusion of Lumbar Vertebral Joint with Interbody Fusion Device, Anterior Approach, Anterior Column, Open Approach (ICD-10-PCS; principal; 2017-04-11 09:30)
DX: M41.9 Scoliosis, unspecified (principal); D62 Acute posthemorrhagic anemia; E87.1 Hypo-osmolality and hyponatremia; I95.9 Hypotension, unspecified; R55 Syncope and collapse; R33.9 Retention of urine, unspecified; E87.6 Hypokalemia; R25.1 Tremor, unspecified; F41.9 Anxiety disorder, unspecified; I10 Essential (primary) hypertension
CPT/HCPCS: 36415; 71010; 72082; 80048; 80053; 83540; 83735; 84100; 85014; 85018; 85025; 86920; 94664

== ENCOUNTER 2017-04-15 09:05 | Inpatient (IN) | payer MEDICARE ==
[~2017-04-15] VITALS: Ht 157.5 cm; Wt 44.7 kg
[2017-04-15 11:50] VITALS: BP 120/70
[2017-04-15] MEDS ORDERED: ACETAMINOPHEN 325 MG TABLET/CAPLET (TYLENOL) PO PRN (12:30)
[2017-04-15] MEDS ORDERED: BISACODYL 10 MG SUPP (DULCOLAX) PR PRN (12:30)
[2017-04-15] MEDS ORDERED: ONDANSETRON 4 MG/2 ML (SDV) Z0FRAN IV PRN (12:30)
[2017-04-15] MEDS ORDERED: morphine INJ 10 MG/ML 1ML (SYR OR VIAL) IVP PRN (12:30)
[2017-04-15] MEDS ORDERED: PROMETHAZINE 25 MG (PHENERGAN) TAB PO PRN (12:30)
[2017-04-15] MEDS ORDERED: METOCLOPRAMIDE INJ 10 MG/2 ML (REGLAN) IV PRN (12:30)
[2017-04-15] MEDS ORDERED: METOCLOPRAMIDE 10 MG (REGLAN) TAB PO PRN (12:30)
--- NOTE | 2017-04-15 12:40 | Physical Therapy Evaluation ---
PT Evaluation-General Medical Diagnosis Admission Date Apr 15, 2017 at 11:45 Medical Diagnosis: Scoliosis Onset Date: Apr 11, 2017 Therapy Diagnosis Therapy Diagnosis: weakness; abn gait Height/Weight Height (Feet): 5 Height (Inches): 2.00 Weight (Pounds): 104 Weight (Ounces): 0.0 Precautions Precautions/Isolations: Fall Prevention, Standard Precautions Weight Bear Status Location Restriction: LE Bilateral Referral Physician: Zan Reason for Referral: Evaluation/Treatment Medical History Pertinent Medical History: Back Injury, CABG Current History Post T9-pelvis PSF for deformity on 04/11/17. Reviewed History: Yes Social History Home: Single Level Current Living Status: Alone (sister lives next door) Entry Into Home: Stairs With Railing (6) PT Steps Into Home: 6 (short steps) Prior/Core FIM Prior Level of Function Functional [place] Measure 0=Not Assessed/NA 4=Minimal Assistance 1=Total Assistance 5=Supervision or Setup 2=Maximal Assistance 6=Modified [place] 3=Moderate Assistance 7=Complete [place] Bed Mobility: 7 Transfers (B,C,W/C) (FIM): 7 Gait: 6 (cane) Community ambulator, drives, does own shopping PT Evaluation-Current Subjective Agreeable to PT. Happy to transfer to ARU for continue rehab. Pain Numeric Pain Scale: 4 Location: Posterior Location Body Site: Back (low) Pain Description: Ache Comment: Has requested pain meds Pt/Family Goals she notes that her goal is to return home as before when able. Objective Patient Orientation: Person, Place, Time, Situation Problem Solving: Good ROM/Strength ROM Lower Extremities WFL Strenght Lower Extremities grossly 4/5 throughout Integumentary/Posture Integumentary intact Bowel Incontinence: No Bladder Incontinence: No Posture upright posture, shoulders even. Neuromuscular (Tone, Coordination, Reflexes) No noted functional deficit Sensory Vision: Wears Glasses Hearing: Functional Hand Dominance: Right Sensation Right Lower Extremit: Intact Sensation Left Lower Extremity: Intact Transfers Functional [place] Measure 0=Not Assessed/NA 4=Minimal Assistance 1=Total Assistance 5=Supervision or Setup 2=Maximal Assistance 6=Modified [place] 3=Moderate Assistance 7=Complete IndependenceIRFPAI Quality Coding Scale 6 Independent with activity with or without an assistive device 5 Patient requires set up or clean up by helper. Patient completes activity by themselves 4 Supervision or touching assist (CGA). [place] provide cues , steadying assist 3 The helper provides less than half the effort to complete the activity 2 The helper provides more than half the effort to complete the activity 1 Dependent. The helper does all the effort to complete an activity 7 Patient refused to complete or attempt activity 9 The patient did not perform the activity before the current illness or injury 88 Not attempted due to Medical conditions or safety concerns Transfers (B, C, W/C) (FIM): 3 Scootin Rollin Roll Left to Right (QC): 4 Supine to/from Sit: 4 (CGA; log roll) Sit to/from Stand: 4 (CGA for safety) bed t/f WC(FIM only if WC use): 4 Sit to Lying (QC): 4 Lying to Sitting/Side of Bed(Q: 4 Sit to Stand (QC): 4 Chair/Nxq-qv-Cgmfe Xfer(QC): 4 Car Transfer (QC): 88 CGA throughout for safety Gait Does the Patient Walk?: Yes Mode of Locomotion: Walk Anticipated Mode of Locomotion: Walk Gait (FIM): 4 Distance (FIM): 3=150 ft Walk 10 feet (QC): 4 Walk 50 ft with 2 Turns(QC): 4 Walk 150 ft (QC): 4 Walking 10ft/uneven surface-QC: 4 Gait Assistive Device: FWW Comments/Gait Description Pt ambulates with deviation in path at times, corrects with occas cues. Wheelchair Training Does the Pt Use a Wheelchair?: No Stairs Stairs (FIM): 2 #of Steps: 1 Level of Assist: 4 1 Step (curb) (QC): 4 4 Steps (QC): 88 Assistive Device: Walker 12 Steps (QC): 88 Balance Sitting Static: Good Sitting Dynamic: Good Standing Static: Fair Standing Dynamic: Fair Picking up an Object (QC): 88 (limited by back precautions) Special Test Comments TUG score, average of 3 trials 29 seconds. Treatment Gait training with FWW with CGA for safety and intermittent cues to stay on path. In out of bathroom with fWW with CGA; toilet transfer with CGA and skilled cues for sequencing and hand placement. Assessment/Needs Post surgical intervention to correct scoliosis; pt to wear back brace when up. Pt presents with a decline in functional mobilty and abilty to safely mobilize without assist. Slight balance deficit noted as deviations with gait pattern and TUG score. Slight LE weakness as noted by need for assist with transfers and gait. She will benefit from skilled PT services to work on functional safety and mobility to allow her to return home as before. Evaluation of moderate complexity based on comorbidities and functional loss. Rehab Potential: Good PT Short Term Goals Short Term Goals Time Frame: Apr 22, 2017 Transfers (B,C,W/C) (FIM): 4 Gait (FIM): 5 PT Custodial Goals [employer] Worker Goals PT [employer] Worker Goals Time Frame: Apr 29, 2017 Transfers (B,C,W/C) (FIM): 7 Sit to Lying (QC): 6 Lying-Sitting on Side/Bed(QC): 6 Sit to Stand (QC): 6 Roll Left to Right (QC): 6 Chair/Fxw-lq-Ksbyh Xfer(QC): 6 Car Transfer (QC): 6 Does the Patient Walk: Yes Gait (FIM): 6 Gait distance (FIM): 3=150 ft Walk 10 feet (QC): 6 Walk 10ft-Uneven Surface(QC): 6 Walk 50ft with 2 Turns (QC): 6 Walk 150 ft (QC): 6 Gait Level of Assist: 6 Gait Assistive Device: FWW Does the Pt use WC or Scooter?: No Stairs (FIM): 6 # of Steps: 12 1 Step (curb) (QC): 6 4 Steps (QC): 6 12 Steps (QC): 6 Stairs Level Of Assist: 6 Picking up an Object (QC): 88 All goals set with the intent of patient returning to her home and caring for herself. PT Plan Problem List Problem List: Activity Tolerance, Functional Strength, Safety, Balance, Gait, Transfer, Bed Mobility Treatment/Plan Treatment Plan: Continue Plan of Care Treatment Plan: Bed Mobility, Education, Functional Activity Vinicius, Functional Strength, Group Therapy, Gait, Safety, Therapeutic Exercise, Transfers Treatment Duration: Apr 29, 2017 # of days/week 5-6 Visits Per Week: 10-14 Pt/Family Agrees w/Plan: Yes Safety Risks/Education Patient Education: Transfer Techniques, Safety Issues Teaching Recipient: Patient Teaching Methods: Demonstration, Discussion Response to Teaching: Reinforcement Needed Discharge Recommendations Therapy D/C Recommendations: Physical Therapy Home Care Time/GCodes Time In: 1200 Time Out: 1235 Total Billed Treatment Time: 35 Total Billed Treatment visit EVM 15 FA 20 SHAWN RUELAS PT Apr 15, 2017 12:40
[2017-04-15] MEDS: CYCLOBENZAPRINE 10 MG (FLEXERIL) TAB PO PRN (13:57)
[2017-04-15] MEDS: oxyCODONE/APAP 5/325MG (PERCOCET 5) TABLET PO PRN (13:57)
[2017-04-15] MEDS: IRON SUCROSE INJECTION 200 MG in NS (IVPB) 100 ML IV SCH (13:58)
--- NOTE | 2017-04-15 14:45 | ST Cognitive Linguistic Eval ---
Speech Evaluation-General Medical Diagnosis Scoliosis Onset Date: Apr 11, 2017 Therapy Diagnosis Therapy Diagnosis: Cognitive Linguistic Skills WNL Precautions Precautions/Isolations: Fall Prevention, Standard Precautions Referral Referring Physician: Dr. Matias Zuluaga Reason for Referral: Evaluation/Treatment Cognitive Evaluation Medical History Pertinent Medical History: Back Injury, CABG Reviewed History: Yes Social History Current Living Status: Alone (sister lives next door) Speech PLF-Current Status Prior Level of Function The patient denied prior cognitive, linguistic, or swallowing difficulties prior to or following her surgical procedure. Subjective The patient was recently admitted to [facility] following a back procedure. The patient greeted the clinician appropriately and was agreeable to participation in the cognitive assessment. Language Eval: Auditory Comprehends Simple Yes/No Ques: Functional Indent/Objects Multiple Walker: Functional Ident/Pics in Multiple Walker: Functional Follows 1-Step Commands: Functional Follows Complex Directions: Functional Follows General Conversations: Functional Language Eval: Verbal Language Completes Spontaneous Greeting: Functional Produces Auto, Serial Info: Functional Imitates Simple Words/Phrases: Functional Word Finding: Functional Requests Basic Needs: Functional States Basic Personal Info: Functional Expresses Complex Ideas: Functional Cognitive Patient Orientation The patient is oriented to location, month, day of week, and year. Objective Cognitive Domain Attention: WNL Memory: WNL Problem Solving: Functional Executive Functions: WNL Objective Impression The patient demonstrated cognitive linguistic skills within normal limits and appropriate for completion of ADL's. Communication/Social Cognition Comprehension: 6 Expression: 7 Social Interaction: 6 Problem Solvin Memory: 6 Speech Patient Assess Expression of Ideas/Wants: Expression (4) Understanding [place] Content: Understands (4) Brief Interview-Mental Status: Yes Repetition of Three Words: Three (3) Temporal Orientation: Year: Correct (3) Temporal Orientation: Month: Accurate within 5 days(2) Temporal Orientation: Day: Correct (1) Recall : Wear to say "Sock": Yes, no cue required (2) Recall : Color: Yes, no cue required (2) Recall : Bed: Yes, no cue required (2) Speech-Plan Treatment Plan Speech Therapy Treatment Plan: Discontinue ST Evaluation, only. Rehab Potential: Good Safety Risks/Education Teaching Recipient: Patient Teaching Methods: Discussion Response to Teaching: Verbalize Understanding Education Topics Provided: Recommendations, Results, Plan of Care Time Speech Therapy Time In: 14:15 Speech Therapy Time Out: 14:30 Total Billed Time: 15 Billed Treatment Time 1, MARLYNNDANTONIETTA REBOLLEDO Apr 15, 2017 14:45
--- NOTE | 2017-04-15 14:55 | Occupational Therapy Eval ---
OT Evaluation-General/PLF Medical Diagnosis Admission Date Apr 15, 2017 at 11:45 Medical Diagnosis: Scoliosis Onset Date: Apr 11, 2017 Therapy Diagnosis Therapy Diagnosis: decr self care, decr funct mobility, decr activity tolerance , weakness Height/Weight Height (Feet): 5 Height (Inches): 2.00 Weight (Pounds): 104 Weight (Ounces): 0.0 Precautions Precautions/Isolations: Fall Prevention, Standard Precautions Weight Bear Status Location Restriction: LE Bilateral Referral Physician: Zan Referral Reason: Evaluation/Treatment Referral Comments To have back brace on when up Medical History Pertinent Medical History: Back Injury, CABG Additional Medical History Essential tremors, anxiety, hx visual problem - resolved, compromised liver, jaw resection, anemia Current History Midback, rib, hip pain. L4-S1 fusion, T9-pelvis PSF with rods on 04-11-17 Reviewed History: Yes Social History Home: Single Level Current Living Status: Alone (sister lives next door) Entry Into Home: Stairs With Railing (6) Steps Into Home: 6 (short steps) ADL-Prior Level of Function ADL PLOF Comments Pt reported that she was able to manage all of her basic self care needs prior to surgery. She also managed household tasks but had given up lawn care. 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 Walks with a cane DME/Equipment: Bath Chair, Grab Bars, Reachers, Tub/Shower Drive Self: Yes OT Current Status Subjective Pt seen in room, up in recliner, agreeable to OT. Pain reported 8/10 (from incision) but she had recent pain meds. Appearance Alert, cooperative Mental Status/Objective Patient Orientation: Person, Place, Time, Situation Current Glasses/Contacts: Yes Hearing Aids: No Dentures/Partials: Yes Hand Dominance: Right Upper Extremity ROM Grossly WFL bilat Upper Extremity Strength grossly 4/5 bilat. Essential tremors noted bilat ADL-Treatment Functional [place] Measure 0=Not Assessed/NA 4=Minimal Assistance 1=Total Assistance 5=Supervision or Setup 2=Maximal Assistance 6=Modified [place] 3=Moderate Assistance 7=Complete IndependenceIRFPAI Quality Coding Scale 6 Independent with activity with or without an assistive device 5 Patient requires set up or clean up by helper. Patient completes activity by themselves 4 Supervision or touching assist (CGA). [place] provide cues , steadying assist 3 The helper provides less than half the effort to complete the activity 2 The helper provides more than half the effort to complete the activity 1 Dependent. The helper does all the effort to complete an activity 7 Patient refused to complete or attempt activity 9 The patient did not perform the activity before the current illness or injury 88 Not attempted due to Medical conditions or safety concerns Eating (FIM): 5 (setup. Pt report) Eating (QC): 5 Transfers (B, C, W/C) (FIM): 4 Education OT Patient Education: Purpose of tx/functional activities, Reviewed precautions , Rehab process, Transfer techniques Teaching Recipient: Patient Teaching Methods: Discussion Response to Teaching: Verbalize Understanding OT Short Term Goals Short Term Goals 1=Demonstrate adherence to instructed precautions during ADL tasks. 2=Patient will verbalize/demonstrate understanding of assistive devices/ modifications for ADL. 3=Patient will improve strength/tolerance for activity to enable patient to perform ADL's. OT Carton Wrapper Goals Snf Goals Time Frame: Apr 29, 2017 Eating (FIM): 6 Eating (QC): 6 Groomin Oral Hygiene (QC): 6 Bathing(FIM): 6 Shower/Bathe Self (QC): 6 Upper Body Dressing(FIM): 6 Upper Body Dressing (QC): 6 Lower Body Dressing(FIM): 6 Lower Body Dressing (QC): 6 On/Off Footwear (QC): 6 Toileting(FIM): 6 Toileting Hygiene (QC): 6 Toilet/Commode Transfer(FIM): 6 Toilet/Commode Transfer (QC): 6 Shower Transfer(FIM): 6 Additional Goals: 1-Demonstrate ADL Tasks, 2-Verbalize Understanding, 3- ImproveStrength/Vinicius 1=Demonstrate adherence to instructed precautions during ADL tasks. 2=Patient will verbalize/demonstrate understanding of assistive devices/ modifications for ADL. 3=Patient will improve strength/tolerance for activity to enable patient to perform ADL's. OT Education/Plan Problem List/Assessment Assessment: Decreased Activ Tolerance, Decreased UE Strength, Dependent Transfers, Impaired Funct Balance, Impaired Self-Care Skills Pt would benefit from skilled OT to increase her independence in basic self care to allow her to safely return to her home to live alone and independently, with family nearby. Discharge Recommendations Plan/Recommendations: Continue POC Target Placement home Treatment Plan/Plan of Care Treatment,Training & Education: Yes Patient would benefit from OT for education, treatment and training to promote independence in ADL's, mobility, safety and/or upper extremity function for ADL' s. Plan of Care: ADL Retraining, Functional Mobility, Group Exercise/Act as Ind ( education, exercise, activity tolerance, functional activities), UE Funct Exercise/Act, UE Neuromus Re-Ed/Coord Treatment Duration: Apr 29, 2017 # of days/week 5-6 Visits Per Week: 10-11 Minutes/Day (M-F): 75-90 Minutes/Day (Sat/Buckley): PRN Agreement: Yes Rehab Potential: Good Time/GCodes Start Time: 11:30 Stop Time: 12:00 Total Time Billed (hr/min): 30 Billed Treatment Time visit, 20 minutes evaluation moderate intensity, 10 minutes ADL CLARK MUHAMMAD OT Apr 15, 2017 14:55
--- NOTE | 2017-04-15 15:28 | Occupational Ther Daily Note ---
OT Current Status-Daily Note Subjective Pt seen in room, up in recliner, agreeable to OT. Mental Status/Objective Functional [place] Measure 0=Not Assessed/NA 4=Minimal Assistance 1=Total Assistance 5=Supervision or Setup 2=Maximal Assistance 6=Modified [place] 3=Moderate Assistance 7=Complete [place] ADL-Treatment Functional [place] Measure 0=Not Assessed/NA 4=Minimal Assistance 1=Total Assistance 5=Supervision or Setup 2=Maximal Assistance 6=Modified [place] 3=Moderate Assistance 7=Complete IndependenceIRFPAI Quality Coding Scale 6 Independent with activity with or without an assistive device 5 Patient requires set up or clean up by helper. Patient completes activity by themselves 4 Supervision or touching assist (CGA). [place] provide cues , steadying assist 3 The helper provides less than half the effort to complete the activity 2 The helper provides more than half the effort to complete the activity 1 Dependent. The helper does all the effort to complete an activity 7 Patient refused to complete or attempt activity 9 The patient did not perform the activity before the current illness or injury 88 Not attempted due to Medical conditions or safety concerns Grooming (FIM): 5 (Pt washed hands at sink with SBA. Pt educ walker placement at sink. ) Oral Hygiene (QC): 9 (Pt will ask her sister to soak her dentures this evening (her sister has been doing this for her)) Bathing (FIM): 4 (Pt able to wash and dry all parts except feet/lower legs and back, sponge bath. ) Shower/Bathe Self (QC): 3 Upper Body (FIM): 4 (Doffed and donned top with setup. Min assist to put brace on) Upper Body Dressing (QC): 3 Lower Body Dressing (FIM): 3 (pt able to pull slipper socks off by using her feet but unable to don them. Pt educ use of sock aid and was able to get sock on. Unable to get underwear over feet. pt educ use of dressing stick to get pants on over feet - she was able to do so. CGA when standing to pull pants up.) Lower Body Dressing (QC): 3 On/Off Footwear (QC): 3 Toileting (FIM): 4 (CGA to get pants up and down. Tall toilet, grab bar) Toileting Hygiene (QC): 4 Transfers (B, C, W/C) (FIM): 4 (Pt got into bed, CGA. Assist with covers over feet. Able to get brace off herself before lying down) Toilet/Commode Transfer (FIM): 4 (CGA, tall toilet, grab bars, FWW) Toilet Transfer (QC): 4 Education OT Patient Education: Modified ADL techniques, Progress toward Goal/Update tx plan, Purpose of tx/functional activities, Safety issues, Transfer techniques, Use of adapted equipment Teaching Recipient: Patient Teaching Methods: Demonstration, Discussion Response to Teaching: Verbalize Understanding, Return Demonstration, Reinforcement Needed OT Short Term Goals Short Term Goals 1=Demonstrate adherence to instructed precautions during ADL tasks. 2=Patient will verbalize/demonstrate understanding of assistive devices/ modifications for ADL. 3=Patient will improve strength/tolerance for activity to enable patient to perform ADL's. OT Fci Goals Fci Goals Time Frame: Apr 29, 2017 Eating (FIM): 6 Eating (QC): 6 Groomin Oral Hygiene (QC): 6 Bathing(FIM): 6 Shower/Bathe Self (QC): 6 Upper Body Dressing(FIM): 6 Upper Body Dressing (QC): 6 Lower Body Dressing(FIM): 6 Lower Body Dressing (QC): 6 On/Off Footwear (QC): 6 Toileting(FIM): 6 Toileting Hygiene (QC): 6 Toilet/Commode Transfer(FIM): 6 Toilet/Commode Transfer (QC): 6 Shower Transfer(FIM): 6 Additional Goals: 1-Demonstrate ADL Tasks, 2-Verbalize Understanding, 3- ImproveStrength/Vinicius 1=Demonstrate adherence to instructed precautions during ADL tasks. 2=Patient will verbalize/demonstrate understanding of assistive devices/ modifications for ADL. 3=Patient will improve strength/tolerance for activity to enable patient to perform ADL's. OT Education/Plan Problem List/Assessment Pt would benefit from skilled OT to increase her independence in basic self care to allow her to safely return to her home to live alone and independently, with family nearby. Discharge Recommendations Plan/Recommendations: Continue POC Treatment Plan/Plan of Care Patient would benefit from OT for education, treatment and training to promote independence in ADL's, mobility, safety and/or upper extremity function for ADL' s. Plan of Care: ADL Retraining, Functional Mobility, Group Exercise/Act as Ind ( education, exercise, activity tolerance, functional activities), UE Funct Exercise/Act, UE Neuromus Re-Ed/Coord Treatment Duration: Apr 29, 2017 Visits Per Week: 10-11 Minutes/Day (M-F): 75-90 Minutes/Day (Sat/[place]): PRN Agreement: Yes Rehab Potential: Good Time/GCodes Start Time: 13:30 Stop Time: 14:15 Total Time Billed (hr/min): 45 Billed Treatment Time visit, 45 minutes ADL CLARK MUHAMMAD OT Apr 15, 2017 15:28
[2017-04-15] MEDS: PHENAZOPYRIDINE 100 MG (PYRIDIUM) TABLET PO SCH ×2 (15:32→18:11)
--- NOTE | 2017-04-15 15:38 | Physical Therapy Daily Note ---
PT Daily Note-Current Subjective Pt sitting up in bed eating lunch upon arrival. Pt agrees to PT. Mental Status Patient Orientation: Person, Place, Time, Situation Attachments: Other-See Comments (Back Brace) Transfers Functional [place] Measure 0=Not Assessed/NA 4=Minimal Assistance 1=Total Assistance 5=Supervision or Setup 2=Maximal Assistance 6=Modified [place] 3=Moderate Assistance 7=Complete IndependenceIRFPAI Quality Coding Scale 6 Independent with activity with or without an assistive device 5 Patient requires set up or clean up by helper. Patient completes activity by themselves 4 Supervision or touching assist (CGA). Gackle provide cues , steadying assist 3 The helper provides less than half the effort to complete the activity 2 The helper provides more than half the effort to complete the activity 1 Dependent. The helper does all the effort to complete an activity 7 Patient refused to complete or attempt activity 9 The patient did not perform the activity before the current illness or injury 88 Not attempted due to Medical conditions or safety concerns Scootin Sit to/from Stand: 5 Sit to Stand (QC): 5 Weight Bearing Weight Bearing Restriction: Full Weight Bearing Location Restriction: LE Bilateral Gait Training Does the Patient Walk?: Yes Distance (FIM): 3=150 ft Distance: 150' Walk 10 feet (QC): 5 Walk 50 ft with 2 Turns(QC): 5 Walk 150 ft (QC): 5 Gait Level of Assist: 5 Gait Persons Needed: 1 Gait Assistive Device: FWW Pt walks with slow but steady helene, no LOB. Wheelchair Training Does the Pt Use a Wheelchair?: No Exercises Seated Therapy Exercises: Ankle pumps, Sit to stand (5), Long arc quads, Hip flexion, Kicking activity Seated Reps: 20 Standing: Hip Abduction, Heel/toe raises, Mini squats Standing Reps: 20 NuStep Minutes: 10 NuStep Workload: 5 Treatments Pt transfers from Supine to EOB at SBA and puts back brace on independently then transfers EOB to Standing using FWW at SBA. Pt ambulates in hallway using FWW at [facility]. Pt uses NuStep for 10m at Workload 5. Pt completes Seated Ex in chair with rest break then Standing Ex at //bars with rest break. Pt returns to room to rest and use restroom. Pt transfers back to Supine in bed to rest at SBA with all needs met at end of tx. Assessment Current Status: Good Progress Pt is motivated to get home quickly and is able to complete tasks given with only a little difficulty. Pt's LE are weak and will tremor as they fatigue. PT Short Term Goals Short Term Goals Time Frame: Apr 22, 2017 Gait (FIM): 5 PT Fdc Goals Infrastructure Design Engineer Goals PT Infrastructure Design Engineer Goals Time Frame: Apr 29, 2017 Transfers (B,C,W/C) (FIM): 7 Sit to Lying (QC): 6 Lying-Sitting on Side/Bed(QC): 6 Sit to Stand (QC): 6 Rollin Roll Left to Right (QC): 6 Chair/Grs-bo-Dockh Xfer(QC): 6 Car Transfer (QC): 6 Does the Patient Walk: Yes Gait (FIM): 6 Gait distance (FIM): 3=150 ft Walk 10 feet (QC): 6 Walk 10ft-Uneven Surface(QC): 6 Walk 50ft with 2 Turns (QC): 6 Walk 150 ft (QC): 6 Gait Level of Assist: 6 Gait Assistive Device: FWW Does the Pt use WC or Scooter?: No Stairs (FIM): 6 # of Steps: 12 1 Step (curb) (QC): 6 4 Steps (QC): 6 12 Steps (QC): 6 Stairs Level Of Assist: 6 Picking up an Object (QC): 88 PT Plan Problem List Problem List: Activity Tolerance, Functional Strength, Safety, Balance, Gait Treatment/Plan Treatment Plan: Continue Plan of Care Treatment Plan: Bed Mobility, Education, Functional Activity Vinicius, Functional Strength, Group Therapy, Gait, Safety, Therapeutic Exercise, Transfers Treatment Duration: Apr 29, 2017 Visits Per Week: 10-14 Safety Risks/Education Patient Education: Gait Training, Transfer Techniques, Correct Positioning, Safety Issues Teaching Recipient: Patient Teaching Methods: Discussion Response to Teaching: Verbalize Understanding Time/GCodes Time In: 1430 Time Out: 1525 Total Billed Treatment Time: 55 Total Billed Treatment visit, EX x2 (30m) & GT x2 (25m) FAVIO ADAIR HOME ASSESSMENT NURSE Apr 15, 2017 15:38
[2017-04-15] MEDS: BETHANECHOL 10 MG (URECHOLINE) TAB PO SCH ×2 (15:46→20:28)
--- NOTE | 2017-04-15 17:46 | HISTORY AND PHYSICAL ---
DATE OF SERVICE: 04/15/2017 CHIEF COMPLAINT: Difficulty with walking. HISTORY OF PRESENT ILLNESS: The patient is a 61-year-old disabled female who had been modified independent with a cane prior to this but having progressive low back pain due to scoliosis. The patient was seen on an outpatient basis by Dr. De Los Santos, ortho spine. Lumbosacral spine CT showed abnormal alignment with severe scoliosis. Treatment plan and recommendations were discussed with the patient. The patient wished to proceed with surgery. On 04/11/2017 the patient underwent L4-S1 anterior lumbar interbody fusion and T9 to pelvis posterior spinal fusion for disk deformity with instrumentation. The patient required 2 units packed red blood cells postoperatively for postop anemia and is currently on IV iron. The patient has been followed by Dr. Mckeon, hospitalist, in lieu of [facility] physician. The patient also developed postop ileus but this has improved, and she also had postop urinary retention and was placed on Pyridium and Urecholine. The patient was managed at the ICU postoperatively and on 04/13 transferred out of the ICU. Therapies were begun. The patient was felt to be appropriate for inpatient rehabilitation unit. The patient had mild hyponatremia and was placed on a fluid restriction. Currently she requires assistance for ADLs and mobility skills and was referred to inpatient rehabilitation unit. PAST MEDICAL HISTORY: Scoliosis. PAST SURGICAL HISTORY: As per above and jaw resection. ALLERGIES: PENICILLIN, BACITRACIN, LACTOSE, NEOMYCIN, POLYMYXIN B, RALOXIFENE. FAMILY HISTORY: Noncontributory. SOCIAL HISTORY: She is single. Lives in [place], [place]. She is disabled. 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 She has family nearby. REVIEW OF SYSTEMS: A 10-point review of systems significant for urinary retention, back pain. MEDICATIONS: Bethanechol 10 mg p.o. four times daily before meals and at bedtime, Pyridium 100 mg p.o. t.i.d., Dulcolax 5 mg 1 to 2 tablets p.o. p.r.n. constipation, Dulcolax 10 mg suppository daily p.r.n. for constipation, Flexeril 10 mg p.o. t.i.d. p.r.n. spasm, Milk of Magnesia 30 cc p.o. daily p.r.n. constipation, Percocet 5/225 1 to 2 tablets p.o. q. 4 hours p.r.n. moderate pain, Reglan 10 mg p.o. q. 6 hours p.r.n. nausea and vomiting Tylenol 650 mg p.o. q. 4 hours as needed for mild pain, iron sucrose IV q. 48 hours, morphine sulfate 2 mg p.o. p.r.n. severe pain. PHYSICAL EXAMINATION: GENERAL: A very pleasant female appearing her stated age, alert and oriented, in no acute distress. VITAL SIGNS: Within normal limits. She is afebrile. HEENT: Vision, speech, hearing grossly intact. No oral lesions noted. NECK: Supple without mass. HEART: Regular rate and rhythm. LUNGS: Clear. ABDOMEN: Mildly distended, soft, nontender, bowel sounds present. EXTREMITIES: No leg edema, no calf tenderness. SKIN: Incision site intact. Madan-Mendez drain functioning. MUSCULOSKELETAL: The patient has functional passive range of motion all four extremities. NEUROLOGICAL: Strength both lower extremities 4/5, bilateral upper extremities 4/5. She is reported to be continent of bowel and bladder but having some urinary retention. Sensation is grossly intact to touch. Cognition grossly intact. CURRENT FUNCTIONAL STATUS: Min to mod assist for transfers, bed mobility. Min assist for ambulation with a front-wheeled walker short distances. She is right hand dominant. She does have some essential tremors noted in the hands. She is set up for eating, grooming. Mod assist for upper body dressing, mod to max assist for lower body dressing. Min assist for toilet transfers. IMPRESSION: 1. Ambulatory dysfunction secondary to scoliosis with chronic back pain status post L4-S1 anterior lumbar interbody fusion and T9 to pelvis posterior spinal fusion for disk deformity with instrumentation 04/11/2017 [address] [facility] with Dr. De Los Santos. 2. Postop anemia, status post transfusion. Hemoglobin today is 7.1 on IV iron infusion. 3. Postop urinary retention, on medication. 4. Postop ileus, resolving. PLAN: The patient will have a comprehensive program of inpatient rehabilitation with goal of maximizing level of functional independence prior to discharge home with family and home health care. The patient will have PT/OT 90 minutes per day each discipline 5 days a week for gait, strengthening, conditioning, balance, ADLs, and inpatient family caregiver training as necessary and any adaptive equipment training necessary, modalities as needed for pain. Speech therapy to do cognitive assessment and treat as indicated. Rehabilitation nursing to assist with bowel, bladder, skin, wound care and medication administration, Madan-Mendez care, pain management. municipal services manager to assist with discharge planning and community reentry. Follow up with Dr. De Los Santos and hospitalist service as per their schedule. Recheck labs in a.m. Therapy with cardiac and fall and spinal precautions. ESTIMATED LENGTH OF STAY: Two weeks. PROGNOSIS: Rehab prognosis appears good with the goal of discharging her home with family and home health care with modified independent to supervision ADLs and mobility skills with continence of bowel and bladder and good voiding of bladder. DIET: Regular. CODE STATUS: Patient requests DNR status. Discussed with nurse. Job ID: [id number] DocumentID: [id number] Dictated Date: 04/15/2017 16:02:20 Bread Packer Date: 04/15/2017 17:45:45 Dictated By: ISABELLE PHAN MD MTDD
[2017-04-15 18:34] VITALS: BP 113/70
[2017-04-15] MEDS: LORazepam 0.5 MG (ATIVAN) TABLET PO SCH (20:28)
[2017-04-15] MEDS: DOCUSATE SODIUM 100 MG (COLACE) CAP PO SCH (20:28)
[2017-04-15] MEDS: SENNOSIDES 8.6 MG (SENOKOT) TAB PO SCH (20:28)
[2017-04-15] MEDS: FAMOTIDINE 20 MG (PEPCID) TABLET PO SCH (20:31)
[2017-04-16] MEDS: CYCLOBENZAPRINE 10 MG (FLEXERIL) TAB PO PRN ×2 (00:32→23:23)
[2017-04-16] MEDS: oxyCODONE/APAP 5/325MG (PERCOCET 5) TABLET PO PRN ×3 (00:32→23:23)
[2017-04-16] MEDS: BETHANECHOL 10 MG (URECHOLINE) TAB PO SCH ×4 (05:03→20:33)
[2017-04-16 05:52] VITALS: BP 117/68
[2017-04-16 06:16] LABS: BASOPHILS % (AUTO) 1 % (0-10); EOSINOPHILS # (AUTO) 0.1 10^3/uL (0.0-0.3); EOSINOPHILS % (AUTO) 2 % (0-10); LYMPHOCYTES # (AUTO) 1.4 X 10^3 (1.0-4.0); LYMPHOCYTES % (AUTO) 23 % (12-44); MEAN CORPUSCULAR HEMOGLOBIN 29 PG (25-34); MEAN CORPUSCULAR HGB CONC 33 G/DL (32-36); MEAN CORPUSCULAR VOLUME 90 FL (80-99); MEAN PLATELET VOLUME 8.3 FL (7.4-10.4); MONOCYTES # (AUTO) 0.5 X 10^3 (0.0-1.0); MONOCYTES % (AUTO) 8 % (0-12); NEUTROPHILS % (AUTO) 67 % (42-75); PLATELET COUNT 343 10^3/uL (130-400); RED BLOOD COUNT 2.62 10^6/uL (4.35-5.85); RED CELL DISTRIBUTION WIDTH 13.9 % (10.0-14.5)
[2017-04-16] MEDS: MULTIVIT W/MINERALS TAB (THERAGRAN M) PO SCH (06:24)
[2017-04-16 06:36] LABS: ALANINE AMINOTRANSFERASE 24 U/L (0-55); ALBUMIN 2.7 G/DL (3.2-4.5); ANION GAP 8 MMOL/L (5-14); ASPARTATE AMINO TRANSFERASE 52 U/L (5-34); BILIRUBIN,TOTAL 0.3 MG/DL (0.1-1.0); BLOOD UREA NITROGEN 9 MG/DL (7-18); BUN/CREATININE RATIO 17; CALCIUM 8.3 MG/DL (8.5-10.1); CARBON DIOXIDE 23 MMOL/L (21-32); CHLORIDE 102 MMOL/L (98-107); CREATININE SERUM 0.52 MG/DL (0.60-1.30); GFR ESTIMATED > 60; GLUCOSE 82 MG/DL (70-105); POTASSIUM 3.8 MMOL/L (3.6-5.0); SODIUM 133 MMOL/L (135-145); TOTAL PROTEIN 5.3 G/DL (6.4-8.2)
[2017-04-16] MEDS: amLODIPine 2.5MG (NORVASC) TAB PO SCH (08:33)
[2017-04-16] MEDS: FAMOTIDINE 20 MG (PEPCID) TABLET PO SCH ×2 (08:33→20:33)
[2017-04-16] MEDS: DOCUSATE SODIUM 100 MG (COLACE) CAP PO SCH ×2 (08:33→20:33)
[2017-04-16] MEDS: FLUoxetine HCL 20 MG (PROzac) CAP PO SCH (08:33)
[2017-04-16] MEDS: SENNOSIDES 8.6 MG (SENOKOT) TAB PO SCH ×2 (08:33→20:33)
[2017-04-16] MEDS: MILK OF MAGNESIA 400 MG/5 ML 30 ML UDC PO PRN (08:33)
[2017-04-16] MEDS: PHENAZOPYRIDINE 100 MG (PYRIDIUM) TABLET PO SCH ×3 (08:33→17:02)
--- NOTE | 2017-04-16 10:08 | Occupational Ther Daily Note ---
OT Current Status-Daily Note Subjective Pt alert, sitting in recliner. Pt agreed to therapy. C/o pain 8/10, nrsg brought pain medications. Mental Status/Objective Patient Orientation: Person, Place, Time, Situation Functional [place] Measure 0=Not Assessed/NA 4=Minimal Assistance 1=Total Assistance 5=Supervision or Setup 2=Maximal Assistance 6=Modified [place] 3=Moderate Assistance 7=Complete [place] Attachments: Drains, IV ADL-Treatment Functional [place] Measure 0=Not Assessed/NA 4=Minimal Assistance 1=Total Assistance 5=Supervision or Setup 2=Maximal Assistance 6=Modified [place] 3=Moderate Assistance 7=Complete IndependenceIRFPAI Quality Coding Scale 6 Independent with activity with or without an assistive device 5 Patient requires set up or clean up by helper. Patient completes activity by themselves 4 Supervision or touching assist (CGA). Laurel provide cues , steadying assist 3 The helper provides less than half the effort to complete the activity 2 The helper provides more than half the effort to complete the activity 1 Dependent. The helper does all the effort to complete an activity 7 Patient refused to complete or attempt activity 9 The patient did not perform the activity before the current illness or injury 88 Not attempted due to Medical conditions or safety concerns Grooming (FIM): 5 (Standing at sink with supervision. Completes on own.) Oral Hygiene (QC): 4 (Standing at sink with supervision. Completes on own.) Bathing (FIM): 5 (Using shower bench, grabbars, hand held shower and long handle sponge pt is able to bathe and dry self with SBA.) Bathing Location: L Arm, R Arm, L Upper Leg, R Upper Leg, L Lower Leg ( including foot), R Lower Leg (including foot), Chest, Abdomen, Buttocks, Perineal Area Shower/Bathe Self (QC): 4 (Using shower bench, grabbars, hand held shower and long handle sponge pt is able to bathe and dry self with SBA.) Upper Body (FIM): 5 (After set up, pt is able to complete by self.) Upper Body Dressing (QC): 5 (After set up, pt is able to complete by self.) Lower Body Dressing (FIM): 5 (After set up, pt uses AE to don/doff lower body clothing with SBA.) Lower Body Dressing (QC): 4 (After set up, pt uses AE to don/doff lower body clothing with SBA.) On/Off Footwear (QC): 4 (After set up, pt uses AE to don/doff lower body clothing with SBA.) Transfers (B, C, W/C) (FIM): 5 (SBA with transfers.) Shower Transfer(FIM): 5 (SBA with transfers using shower bench and grabbars.) Pt does fatigue fast during ADLs. Uses lower body equipment well with dressing. Adheres to back precautions. Assist to don back brace. After therapy, pt sitting in recliner with call light/phone in reach. All needs met in room. OT Short Term Goals Short Term Goals 1=Demonstrate adherence to instructed precautions during ADL tasks. 2=Patient will verbalize/demonstrate understanding of assistive devices/ modifications for ADL. 3=Patient will improve strength/tolerance for activity to enable patient to perform ADL's. OT Care Home Goals Digital Project Coordinator Goals Time Frame: Apr 29, 2017 Eating (FIM): 6 Eating (QC): 6 Groomin Oral Hygiene (QC): 6 Bathing(FIM): 6 Shower/Bathe Self (QC): 6 Upper Body Dressing(FIM): 6 Upper Body Dressing (QC): 6 Lower Body Dressing(FIM): 6 Lower Body Dressing (QC): 6 On/Off Footwear (QC): 6 Toileting(FIM): 6 Toileting Hygiene (QC): 6 Toilet/Commode Transfer(FIM): 6 Toilet/Commode Transfer (QC): 6 Shower Transfer(FIM): 6 Additional Goals: 1-Demonstrate ADL Tasks, 2-Verbalize Understanding, 3- ImproveStrength/Vinicius 1=Demonstrate adherence to instructed precautions during ADL tasks. 2=Patient will verbalize/demonstrate understanding of assistive devices/ modifications for ADL. 3=Patient will improve strength/tolerance for activity to enable patient to perform ADL's. OT Education/Plan Problem List/Assessment Pt would benefit from skilled OT to increase her independence in basic self care to allow her to safely return to her home to live alone and independently, with family nearby. Discharge Recommendations Plan/Recommendations: Continue POC Treatment Plan/Plan of Care Patient would benefit from OT for education, treatment and training to promote independence in ADL's, mobility, safety and/or upper extremity function for ADL' s. Plan of Care: ADL Retraining, Functional Mobility, Group Exercise/Act as Ind ( education, exercise, activity tolerance, functional activities), UE Funct Exercise/Act, UE Neuromus Re-Ed/Coord Treatment Duration: Apr 29, 2017 Visits Per Week: 10-11 Minutes/Day (M-F): 75-90 Minutes/Day (Sat/[place]): PRN Agreement: Yes Rehab Potential: Good Time/GCodes Start Time: 09:00 Stop Time: 10:00 Total Time Billed (hr/min): 60 Billed Treatment Time 1 visit-ADL 4 (60 min) SHAWN VALERIO Apr 16, 2017 10:08
--- NOTE | 2017-04-16 10:48 | PM&R Post Admission Assessment ---
Post Admission Physician Asses The preadmission screen agrees with the post admission assessment that the patient is a good candidate for inpatient rehabilitation. The patient will have a comprehensive program of inpatient rehabilitation with a goal of maximizing level of functional independence prior to discharge home with family and HHC. The patient will have PT/OT ninety minutes per day, each discipline, five days a week for gait, strengthening, conditioning, balance, ADLs, any patient/family/caregiver training as necessary. Speech therapy to do cognitive assessment and treat as indicated. Rehabilitation nursing to assist with bowel, bladder, skin, wound care, medication administration, pain management as well as ANAHY drain care. Aircraft Instrument Engineer to assist with discharge planning, community reentry. SCD's for DVT prophylaxis. She appears to be well motivated to participate in three hours of therapy a day. She should be able to tolerate three hours of therapy a day from a medical standpoint. She should benefit from the three hours of therapy a day. She has a reasonable discharge plan, reasonable discharge rehabilitation goals and a supportive family. She has various comorbidities that need to be closely monitored with medications and treatments adjusted on a daily basis as needed. These include: Post-op urinary retention Postop anemia Postop ileus Barriers to discharge for this patient who had been independent prior to this are for her to be modified independent to supervision for ADLs and mobility skills prior to discharge home with family, so as to lessen the burden of the caregivers. Risks for this patient include: 1. Fall 2. Fracture 3. DVT 4. Pulmonary embolism 5. Wound infection 6. Skin breakdown 7. Contractures 8. Poorly controlled pain 9. Urinary retention 10. UTI 11. Respiratory infection 12. Aspiration 13. Recurrent Ileus 14. Worsening anemia Estimated Length of Stay: []days Prognosis: Rehab prognosis appears good for goal of discharge home with family and HHC modified independent to supervision for ADLs and mobility skills. ISABELLE PHAN MD Apr 16, 2017 10:48
--- NOTE | 2017-04-16 11:21 | Consultation (CHS) ---
HPI History of Present Illness: 61 yo female admitted to [facility] after scoliosis surgery. She denies concerns today , she is feeling fairly well and was able to void after removal of cotto catheter yesterday. She is passing gas but still no stool. Attending Physician Matias Zuluaga MD PCP Moni Johnson DO Consult Date of Admission Apr 15, 2017 at 11:45 am Home Medications Home Medications Reviewed patient Home Medication Reconciliation Form Allergies Coded Allergies: Penicillins (Verified Allergy, Unknown, 04/03/17) alendronate sodium (Verified Allergy, Unknown, 04/03/17) bacitracin (Verified Allergy, Unknown, 04/03/17) lactose (Verified Allergy, Unknown, 04/03/17) neomycin (Verified Allergy, Unknown, 04/03/17) polymyxin B (Verified Allergy, Unknown, 04/03/17) raloxifene (Verified Allergy, Unknown, leg swelling, 04/03/17) VGR-Deogug-Unqunc Hx Patient Social History Alcohol Use: Past History Recreational Drug Use: No Smoking Status: Never a Smoker Recent Foreign Travel: No Contact w/other who traveled: No Recent Hopitalizations: No Recent Infectious Disease Expo: No Physical Abuse Screen: No Sexual Abuse: No Past Medical History PMHx: Familial tremor Anxiety Hypertension PSurgHx: Torn meniscus Jaw recontstruction L4-S1 anterior lumbar interbody fusion and T9 to pelvis posterior spinal fusion Family Medical History Significant Family History: Diabetes, Hypertension Review of Systems (CHC) Date Seen by Provider: Apr 16, 2017 Time Seen by Provider: 10:32 Constitutional: No fever EENTM: no symptoms reported Respiratory: cough, No short of breath Cardiovascular: No chest pain Gastrointestinal: constipation Genitourinary: see HPI Skin: No rash Psychiatric/Neurological: No Symptoms Reported Reviewed Test Results Reviewed Test Results Lab Laboratory Tests Test 04/16/17 06:05 Range/Units White Blood Count 6.0 4.3-11.0 10^3/uL Red Blood Count 2.62 L 4.35-5.85 10^6/uL Hemoglobin 7.7 L 11.5-16.0 G/DL Hematocrit 24 L 35-52 % Mean Corpuscular Volume 90 80-99 FL Mean Corpuscular Hemoglobin 29 25-34 PG Mean Corpuscular Hemoglobin Concent 33 32-36 G/DL Red Cell Distribution Width 13.9 10.0-14.5 % Platelet Count 343 130-400 10^3/uL Mean Platelet Volume 8.3 7.4-10.4 FL Neutrophils (%) (Auto) 67 42-75 % Lymphocytes (%) (Auto) 23 12-44 % Monocytes (%) (Auto) 8 0-12 % Eosinophils (%) (Auto) 2 0-10 % Basophils (%) (Auto) 1 0-10 % Neutrophils # (Auto) 4.0 1.8-7.8 X 10^3 Lymphocytes # (Auto) 1.4 1.0-4.0 X 10^3 Monocytes # (Auto) 0.5 0.0-1.0 X 10^3 Eosinophils # (Auto) 0.1 0.0-0.3 10^3/uL Basophils # (Auto) 0.0 0.0-0.1 10^3/uL Sodium Level 133 L 135-145 MMOL/L Potassium Level 3.8 3.6-5.0 MMOL/L Chloride Level 102 98-107 MMOL/L Carbon Dioxide Level 23 21-32 MMOL/L Anion Gap 8 5-14 MMOL/L Blood Urea Nitrogen 9 7-18 MG/DL Creatinine 0.52 L 0.60-1.30 MG/DL Estimat Glomerular Filtration Rate > 60 BUN/Creatinine Ratio 17 Glucose Level 82 70-105 MG/DL Calcium Level 8.3 L 8.5-10.1 MG/DL Total Bilirubin 0.3 0.1-1.0 MG/DL Aspartate Amino Transf (AST/SGOT) 52 H 5-34 U/L Alanine Aminotransferase (ALT/SGPT) 24 0-55 U/L Alkaline Phosphatase 51 40-136 U/L Total Protein 5.3 L 6.4-8.2 G/DL Albumin 2.7 L 3.2-4.5 G/DL Physical Exam-([facility]) Physical Exam Vital Signs VS - Last 72 Hours, by Label 04/15/17 04/15/17 04/15/17 04/16/17 11:50 18:34 20:20 05:52 Temp 97.5 98.2 98.2 Pulse 95 89 92 Resp 20 16 16 B/P (MAP) 120/70 113/70 117/68 Pulse Ox 100 98 98 97 Capillary Refill : General Appearance: WD/WN, no apparent distress Respiratory: normal breath sounds, rhonchi Cardiovascular: regular rate, rhythm, no edema, no murmur Gastrointestinal: normal bowel sounds, non tender, soft Extremities: no pedal edema Neurologic/Psychiatric: alert, normal mood/affect Skin: normal color, warm/dry Assessment/Plan Assessment/Plan Admission Dx 1. s/p extensive spinal surgery for scoliosis 2. Postoperative urinary retention 3. Postoperative anemia 4. HTN 5. Familial essential tremor Plan 1. s/p extensive spinal surgery for scoliosis -Management per Dr. De Los Santos and Rehab 2. Postoperative urinary retention- resolved, consider d/c bethanechol in next few days 3. Postoperative anemia- on IV iron, hemoglobin stable 4. HTN- on amlodipine at home, continue 5. Familial essential tremor- continue home lorazepam Diagnosis/Problems: Clinical Quality Measures DVT/VTE Risk/Contraindication: Risk Factor Score Per Nursin RFS Level Per Nursing on Admit: 4+=Very High ANG MARTINEZ MD Apr 16, 2017 11:21 am
--- NOTE | 2017-04-16 14:27 | PM & R (SOAP) Progress Note ---
Subjective Time Seen by Provider: 08:10 Subjective/Events-last exam Patient was seen in her room earlier today Adjusting well to unit HGB has improved Appreciate current labs Objective Exam Last Set of Vital Signs Vital Signs Date Time Temp Pulse Resp B/P (MAP) Pulse Ox O2 Delivery O2 Flow Rate FiO2 04/16/17 05:52 98.2 92 16 117/68 97 Capillary Refill : I&O Bad tableGeneral: Alert, Oriented X3, Cooperative, No Acute Distress HEENT: Atraumatic, PERRLA, EOMI, Mucous Memb Moist/[place] Neck: Supple, No JVD Lungs: Clear to Auscultation Heart: Regular Rate Abdomen: Normal Bowel Sounds, Soft Extremities: No Edema Skin: Other (ANAHY drain in place) Neuro: Other (Generalized weakness) Results Lab Laboratory Tests 04/16/17 06:05: White Blood Count 6.0, Red Blood Count 2.62L, Hemoglobin 7.7L, Hematocrit 24L, Mean Corpuscular Volume 90, Mean Corpuscular Hemoglobin 29, Mean Corpuscular Hemoglobin Concent 33, Red Cell Distribution Width 13.9, Platelet Count 343, Mean Platelet Volume 8.3, Neutrophils (%) (Auto) 67, Lymphocytes (%) (Auto) 23, Monocytes (%) (Auto) 8, Eosinophils (%) (Auto) 2, Basophils (%) (Auto) 1, Neutrophils # (Auto) 4.0, Lymphocytes # (Auto) 1.4, Monocytes # (Auto) 0.5, Eosinophils # (Auto) 0.1, Basophils # (Auto) 0.0, Sodium Level 133L, Potassium Level 3.8, Chloride Level 102, Carbon Dioxide Level 23, Anion Gap 8, Blood Urea Nitrogen 9, Creatinine 0.52L, Estimat Glomerular Filtration Rate > 60, BUN/ Creatinine Ratio 17, Glucose Level 82, Calcium Level 8.3L, Total Bilirubin 0.3, Aspartate Amino Transf (AST/SGOT) 52H, Alanine Aminotransferase (ALT/SGPT) 24, Alkaline Phosphatase 51, Total Protein 5.3L, Albumin 2.7L Assessment/Plan Assessment S/P fusion Orthospine for Scoliosis Postop anemia improving Postop urinary retention improving Postop ileus resolved Plan Continue PT/OT/Wound care F/U with DR De Los Santos and Medical management and DR Hinojosa as per their schedule Team Conference held earlier today-See report for full functional update and POC and ISABELLE MURO MD Apr 16, 2017 14:27
--- NOTE | 2017-04-16 15:01 | Physical Therapy Daily Note ---
PT Daily Note-Current Subjective Pt sitting in recliner upon arrival. Pt agrees to PT and is very enthusiastic about getting better and going home knowing that PT will help get her there. Pain Numeric Pain Scale: 3 Location: Incisional, Dorsal Location Body Site: Back Pain Description: Ache Mental Status Patient Orientation: Person, Place, Time, Situation Attachments: Other-See Comments (Back Brace) Transfers Functional [place] Measure 0=Not Assessed/NA 4=Minimal Assistance 1=Total Assistance 5=Supervision or Setup 2=Maximal Assistance 6=Modified [place] 3=Moderate Assistance 7=Complete IndependenceIRFPAI Quality Coding Scale 6 Independent with activity with or without an assistive device 5 Patient requires set up or clean up by helper. Patient completes activity by themselves 4 Supervision or touching assist (CGA). [place] provide cues , steadying assist 3 The helper provides less than half the effort to complete the activity 2 The helper provides more than half the effort to complete the activity 1 Dependent. The helper does all the effort to complete an activity 7 Patient refused to complete or attempt activity 9 The patient did not perform the activity before the current illness or injury 88 Not attempted due to Medical conditions or safety concerns Scootin Sit to/from Stand: 5 Sit to Lying (QC): 5 Sit to Stand (QC): 5 Weight Bearing Weight Bearing Restriction: Full Weight Bearing Location Restriction: LE Bilateral Gait Training Does the Patient Walk?: Yes Distance (FIM): 3=150 ft Distance: 250' Walk 10 feet (QC): 5 Walk 50 ft with 2 Turns(QC): 5 Walk 150 ft (QC): 5 Gait Level of Assist: 5 Gait Persons Needed: 1 Gait Assistive Device: FWW Pt is walking with more normalized gait with slight kyphotic posture and PT encourages pt to walk closer to FWW to improve posture. Wheelchair Training Does the Pt Use a Wheelchair?: No Exercises Standing: Hip Abduction, Heel/toe raises, 3 way Ex=Flex, Abd, Ext, Mini squats , Sit to Stand (5) Standing Reps: 15 NuStep Minutes: 15 (LE only, no UE) NuStep Workload: 5 Treatments Pt transfers from recliner to standing using FWW at SBA. Pt ambulates in hallway using FWW at SBA. Pt uses NuStep for 15m at Workload 5 followed by short rest. Pt completed Standing Ex at //bars then returned to room to use restroom and rest. Nursing came in at end of tx to change pt's dressings at EOB. Pt has all needs met at end of tx and nurse changing dressings. Assessment Current Status: Good Progress Pt is improving with independence and safety of both mobility and transfers. PT Short Term Goals Short Term Goals Time Frame: Apr 22, 2017 Gait (FIM): 5 PT [facility] Goals [facility] Goals PT University Demonstrator Goals Time Frame: Apr 29, 2017 Transfers (B,C,W/C) (FIM): 7 Sit to Lying (QC): 6 Lying-Sitting on Side/Bed(QC): 6 Sit to Stand (QC): 6 Rollin Roll Left to Right (QC): 6 Chair/Wzi-ea-Nariw Xfer(QC): 6 Car Transfer (QC): 6 Does the Patient Walk: Yes Gait (FIM): 6 Gait distance (FIM): 3=150 ft Walk 10 feet (QC): 6 Walk 10ft-Uneven Surface(QC): 6 Walk 50ft with 2 Turns (QC): 6 Walk 150 ft (QC): 6 Gait Level of Assist: 6 Gait Assistive Device: FWW Does the Pt use WC or Scooter?: No Stairs (FIM): 6 # of Steps: 12 1 Step (curb) (QC): 6 4 Steps (QC): 6 12 Steps (QC): 6 Stairs Level Of Assist: 6 Picking up an Object (QC): 88 PT Plan Problem List Problem List: Activity Tolerance, Functional Strength, Balance, Gait Treatment/Plan Treatment Plan: Continue Plan of Care Treatment Plan: Bed Mobility, Education, Functional Activity Vinicius, Functional Strength, Group Therapy, Gait, Safety, Therapeutic Exercise, Transfers Treatment Duration: Apr 29, 2017 Visits Per Week: 10-14 Safety Risks/Education Patient Education: Gait Training, Reviewed Precautions, Correct Positioning, Reviewed Don/Doff Brace, Safety Issues Teaching Recipient: Patient Teaching Methods: Discussion Response to Teaching: Verbalize Understanding Time/GCodes Time In: 1100 Time Out: 1200 Total Billed Treatment Time: 60 Total Billed Treatment visit, EX x2 (30m), GT (15m) & FA (15m) FAVIO ADAIR SLUBBER HAND Apr 16, 2017 15:01
--- NOTE | 2017-04-16 15:03 | Therapy Group Daily Note ---
Therapy Daily Group Note Patient Education Topic Other List Below (Education on exercises to do in room in between therapies on ARU) Exercises LE Seated Exercise, UE Exercise Other/Notes Pt ambulated to OT/PT group using FWW. Group consisted of introductions (name, place living, favorite summer activity), ARU description/expectations, UE/LE seat exercises, inspirational words/word of encouragement and education on bed exercises to complete between therapy sessions. Pt contributed to group discussions appropriately. Verbalized understanding of ARU. Completed UE/LE seated exercises without difficulty. Pt did ask pertinent questions concerning back precautions and completing exercises in room. Pt ambulated with FWW back to room. After therapy, pt lying in bed with call light/phone in reach. All needs met in room. Start Time: 13:00 Stop Time: 14:10 Total Billed Treatment Time: 70 Total Billed Treatment 1-GRP SHAWN VALERIO Apr 16, 2017 15:03
[2017-04-16] MEDS: BISACODYL 5 MG (DULCOLAX) TABLET PO PRN (17:02)
[2017-04-16 17:57] VITALS: BP 116/67
[2017-04-16] MEDS: LORazepam 0.5 MG (ATIVAN) TABLET PO SCH (20:33)
[2017-04-17 06:10] VITALS: BP 126/67
[2017-04-17] MEDS: MULTIVIT W/MINERALS TAB (THERAGRAN M) PO SCH (06:33)
[2017-04-17] MEDS: BETHANECHOL 10 MG (URECHOLINE) TAB PO SCH ×4 (06:33→20:42)
[2017-04-17] MEDS: oxyCODONE/APAP 5/325MG (PERCOCET 5) TABLET PO PRN ×3 (07:06→22:42)
--- NOTE | 2017-04-17 07:20 | PM & R (SOAP) Progress Note ---
Subjective Time Seen by Provider: 07:20 Subjective/Events-last exam Patient was seen in her room this AM Discussed case with RN ANAHY drain 70cc night nurse and thus drain remains in,Patient progressing well with therapies. Patient SBA for transfers Objective Exam Last Set of Vital Signs Vital Signs Date Time Temp Pulse Resp B/P (MAP) Pulse Ox O2 Delivery O2 Flow Rate FiO2 04/17/17 06:10 97.9 104 18 126/67 98 2.00 Capillary Refill : I&O Intake and Output 04/17/17 00:00 Intake Total 1220 ml Output Total 1765 ml Balance -545 ml Intake Oral 1220 ml Output Urine Total 1600 ml Drainage Total 165 ml General: Alert, Oriented X3, Cooperative, No Acute Distress HEENT: Atraumatic, PERRLA, EOMI, Mucous Memb Moist/[place] Neck: Supple, No JVD Lungs: Clear to Auscultation Heart: Regular Rate Abdomen: Normal Bowel Sounds, Soft Extremities: No Edema Skin: Other (ANAHY drain in place) Neuro: Other (Generalized weakness) Results Lab Laboratory Tests 04/16/17 06:05: White Blood Count 6.0, Red Blood Count 2.62L, Hemoglobin 7.7L, Hematocrit 24L, Mean Corpuscular Volume 90, Mean Corpuscular Hemoglobin 29, Mean Corpuscular Hemoglobin Concent 33, Red Cell Distribution Width 13.9, Platelet Count 343, Mean Platelet Volume 8.3, Neutrophils (%) (Auto) 67, Lymphocytes (%) (Auto) 23, Monocytes (%) (Auto) 8, Eosinophils (%) (Auto) 2, Basophils (%) (Auto) 1, Neutrophils # (Auto) 4.0, Lymphocytes # (Auto) 1.4, Monocytes # (Auto) 0.5, Eosinophils # (Auto) 0.1, Basophils # (Auto) 0.0, Sodium Level 133L, Potassium Level 3.8, Chloride Level 102, Carbon Dioxide Level 23, Anion Gap 8, Blood Urea Nitrogen 9, Creatinine 0.52L, Estimat Glomerular Filtration Rate > 60, BUN/ Creatinine Ratio 17, Glucose Level 82, Calcium Level 8.3L, Total Bilirubin 0.3, Aspartate Amino Transf (AST/SGOT) 52H, Alanine Aminotransferase (ALT/SGPT) 24, Alkaline Phosphatase 51, Total Protein 5.3L, Albumin 2.7L Assessment/Plan Assessment S/P fusion Orthospine for Scoliosis Postop anemia improving Postop urinary retention improving Postop ileus resolved Plan Continue PT/OT/Wound care F/U with DR De Los Santos and Medical management and DR Hinojosa as per their schedule Team Conference held yesterday--See report for full functional update and POC and ELOS Discharge set tentatively for 04/23/17 ISABELLE PHAN MD Apr 17, 2017 07:20
[2017-04-17] MEDS: MILK OF MAGNESIA 400 MG/5 ML 30 ML UDC PO PRN (08:42)
[2017-04-17] MEDS: amLODIPine 2.5MG (NORVASC) TAB PO SCH (08:42)
[2017-04-17] MEDS: SENNOSIDES 8.6 MG (SENOKOT) TAB PO SCH ×2 (08:42→20:42)
[2017-04-17] MEDS: PHENAZOPYRIDINE 100 MG (PYRIDIUM) TABLET PO SCH ×3 (08:42→18:04)
[2017-04-17] MEDS: FLUoxetine HCL 20 MG (PROzac) CAP PO SCH (08:42)
[2017-04-17] MEDS: FAMOTIDINE 20 MG (PEPCID) TABLET PO SCH (08:42)
[2017-04-17] MEDS: DOCUSATE SODIUM 100 MG (COLACE) CAP PO SCH ×2 (08:42→20:42)
--- NOTE | 2017-04-17 08:54 | Occupational Ther Daily Note ---
OT Current Status-Daily Note Subjective Pt alert, sitting in recliner. Pt agreed to therapy. No c/o pain at this time. Mental Status/Objective Patient Orientation: Person, Place, Time, Situation Functional [place] Measure 0=Not Assessed/NA 4=Minimal Assistance 1=Total Assistance 5=Supervision or Setup 2=Maximal Assistance 6=Modified [place] 3=Moderate Assistance 7=Complete [place] ADL-Treatment Functional [place] Measure 0=Not Assessed/NA 4=Minimal Assistance 1=Total Assistance 5=Supervision or Setup 2=Maximal Assistance 6=Modified [place] 3=Moderate Assistance 7=Complete IndependenceIRFPAI Quality Coding Scale 6 Independent with activity with or without an assistive device 5 Patient requires set up or clean up by helper. Patient completes activity by themselves 4 Supervision or touching assist (CGA). [place] provide cues , steadying assist 3 The helper provides less than half the effort to complete the activity 2 The helper provides more than half the effort to complete the activity 1 Dependent. The helper does all the effort to complete an activity 7 Patient refused to complete or attempt activity 9 The patient did not perform the activity before the current illness or injury 88 Not attempted due to Medical conditions or safety concerns Bathing (FIM): 6 (Using grabbars, shower bench, hand held shower and long handle sponge by self.) Bathing Location: L Arm, R Arm, L Upper Leg, R Upper Leg, L Lower Leg ( including foot), R Lower Leg (including foot), Chest, Abdomen, Buttocks, Perineal Area Upper Body (FIM): 6 (Pt retrieved clothing then doffed/donned by self.) Lower Body Dressing (FIM): 6 (Retrieved clothing then using AE is able to doff/ don by self.) Transfers (B, C, W/C) (FIM): 6 (Using FWW, pt able to complete.) Shower Transfer(FIM): 6 (Using FWW, grabbars and shower bench pt is able to complete.) Pt has demonstrated knowledge of back precautions and has adhered to them. Pt is able to don/doff back brace by self. After therapy, pt sitting in chair with call light/phone in reach. All needs met in room. OT Short Term Goals Short Term Goals 1=Demonstrate adherence to instructed precautions during ADL tasks. 2=Patient will verbalize/demonstrate understanding of assistive devices/ modifications for ADL. 3=Patient will improve strength/tolerance for activity to enable patient to perform ADL's. OT Shelter Goals Shelter Goals Time Frame: Apr 29, 2017 Eating (FIM): 6 Eating (QC): 6 Groomin Oral Hygiene (QC): 6 Bathing(FIM): 6 Shower/Bathe Self (QC): 6 Upper Body Dressing(FIM): 6 Upper Body Dressing (QC): 6 Lower Body Dressing(FIM): 6 Lower Body Dressing (QC): 6 On/Off Footwear (QC): 6 Toileting(FIM): 6 Toileting Hygiene (QC): 6 Toilet/Commode Transfer(FIM): 6 Toilet/Commode Transfer (QC): 6 Shower Transfer(FIM): 6 Additional Goals: 1-Demonstrate ADL Tasks, 2-Verbalize Understanding, 3- ImproveStrength/Vinicius 1=Demonstrate adherence to instructed precautions during ADL tasks. 2=Patient will verbalize/demonstrate understanding of assistive devices/ modifications for ADL. 3=Patient will improve strength/tolerance for activity to enable patient to perform ADL's. OT Education/Plan Problem List/Assessment Pt would benefit from skilled OT to increase her independence in basic self care to allow her to safely return to her home to live alone and independently, with family nearby. Discharge Recommendations Plan/Recommendations: Continue POC Treatment Plan/Plan of Care Patient would benefit from OT for education, treatment and training to promote independence in ADL's, mobility, safety and/or upper extremity function for ADL' s. Plan of Care: ADL Retraining, Functional Mobility, Group Exercise/Act as Ind ( education, exercise, activity tolerance, functional activities), UE Funct Exercise/Act, UE Neuromus Re-Ed/Coord Treatment Duration: Apr 29, 2017 Visits Per Week: 10-11 Minutes/Day (M-F): 75-90 Minutes/Day (Sat/[place]): PRN Agreement: Yes Rehab Potential: Good Time/GCodes Start Time: 08:00 Stop Time: 09:00 Total Time Billed (hr/min): 60 Billed Treatment Time 1 visit-ADL 4 (60 min) SHAWN VALERIO Apr 17, 2017 08:54
[2017-04-17] MEDS: IRON SUCROSE INJECTION 200 MG in NS (IVPB) 100 ML IV SCH (11:40)
[2017-04-17] MEDS: CYCLOBENZAPRINE 10 MG (FLEXERIL) TAB PO PRN ×2 (11:48→22:43)
--- NOTE | 2017-04-17 12:56 | Physical Therapy Daily Note ---
PT Daily Note-Current Subjective Pt sitting in recliner upon arrival. Pt agrees to PT. Pain Numeric Pain Scale: 3 Location: Incisional Location Body Site: Back Pain Description: Ache Mental Status Patient Orientation: Person, Place, Time, Situation Attachments: Other-See Comments (Back Brace) Transfers Functional [place] Measure 0=Not Assessed/NA 4=Minimal Assistance 1=Total Assistance 5=Supervision or Setup 2=Maximal Assistance 6=Modified [place] 3=Moderate Assistance 7=Complete IndependenceIRFPAI Quality Coding Scale 6 Independent with activity with or without an assistive device 5 Patient requires set up or clean up by helper. Patient completes activity by themselves 4 Supervision or touching assist (CGA). [place] provide cues , steadying assist 3 The helper provides less than half the effort to complete the activity 2 The helper provides more than half the effort to complete the activity 1 Dependent. The helper does all the effort to complete an activity 7 Patient refused to complete or attempt activity 9 The patient did not perform the activity before the current illness or injury 88 Not attempted due to Medical conditions or safety concerns Scootin Sit to/from Stand: 5 Sit to Stand (QC): 5 Weight Bearing Weight Bearing Restriction: Full Weight Bearing Location Restriction: LE Bilateral Gait Training Does the Patient Walk?: Yes Distance (FIM): 3=150 ft Distance: 250' Walk 10 feet (QC): 5 Walk 50 ft with 2 Turns(QC): 5 Walk 150 ft (QC): 5 Gait Level of Assist: 5 Gait Persons Needed: 1 Gait Assistive Device: FWW Wheelchair Training Does the Pt Use a Wheelchair?: No Exercises Standing: Heel/toe raises, 3 way Ex=Flex, Abd, Ext, Mini squats Standing Reps: 20 NuStep Minutes: 15 NuStep Workload: 5 Treatments Pt transferred from recliner to standing using FWW at SBA. Pt ambulated using FWW at SBA. Pt used NuStep for 15m at Workload 5 then Standing EX at //bars. Pt took short rest and completed ambulating 2 set of 4 stairs to practice for home. Pt returns to room to rest in recliner at end of tx with all needs met. Assessment Current Status: Good Progress Pt is very motivated to get home and scheduled to discharge next Friday. Pt is making progress with activity tolerance, strength and balance. PT Short Term Goals Short Term Goals Time Frame: Apr 22, 2017 Gait (FIM): 5 PT Airline Transport Pilot Goals Nursing Home Goals PT Airline Transport Pilot Goals Time Frame: Apr 29, 2017 Transfers (B,C,W/C) (FIM): 7 Sit to Lying (QC): 6 Lying-Sitting on Side/Bed(QC): 6 Sit to Stand (QC): 6 Rollin Roll Left to Right (QC): 6 Chair/Wdr-xp-Vjmqd Xfer(QC): 6 Car Transfer (QC): 6 Does the Patient Walk: Yes Gait (FIM): 6 Gait distance (FIM): 3=150 ft Walk 10 feet (QC): 6 Walk 10ft-Uneven Surface(QC): 6 Walk 50ft with 2 Turns (QC): 6 Walk 150 ft (QC): 6 Gait Level of Assist: 6 Gait Assistive Device: FWW Does the Pt use WC or Scooter?: No Stairs (FIM): 6 # of Steps: 12 1 Step (curb) (QC): 6 4 Steps (QC): 6 12 Steps (QC): 6 Stairs Level Of Assist: 6 Picking up an Object (QC): 88 PT Plan Problem List Problem List: Functional Strength, Balance, Gait Treatment/Plan Treatment Plan: Continue Plan of Care Treatment Plan: Bed Mobility, Education, Functional Activity Vinicius, Functional Strength, Group Therapy, Gait, Safety, Therapeutic Exercise, Transfers Treatment Duration: Apr 29, 2017 Visits Per Week: 10-14 Safety Risks/Education Patient Education: Gait Training, Correct Positioning, Safety Issues Teaching Recipient: Patient Teaching Methods: Discussion Response to Teaching: Verbalize Understanding Time/GCodes Time In: 1015 Time Out: 1115 Total Billed Treatment Time: 60 Total Billed Treatment visit, GT (15m), EX x2 (30m) & FA (15m) FAVIO ADAIR WIRE ROPE FABRICATION SUPERVISOR Apr 17, 2017 12:56
--- NOTE | 2017-04-17 16:05 | Therapy Group Daily Note ---
Therapy Daily Group Note Exercises UE Exercise Other/Notes Pt ambulated to PT/OT Group in [facility] using FWW at [facility]. Group consisted of Introductions (Name, Where you are from and Childhood Memory), Socialization, Activities focused on Problem Solving, Memory, Sequencing, UE reaching and grasping, Core Strengthening while sitting and Fine Motor. Pt actively participated in Group by participating in activity by Exercising as needed for task and Socializing with other patients during task. Pt returned to room to rest in bed with all needs met at end of tx. Start Time: 13:00 Stop Time: 14:10 Total Billed Treatment Time: 70 Total Billed Treatment 1, GRP LINDSEYFAVIO ROMERO DIELECTRIC EMBOSSING MACHINE OPERATOR Apr 17, 2017 16:05
[2017-04-17 19:00] VITALS: BP 94/58
[2017-04-17] MEDS: LORazepam 0.5 MG (ATIVAN) TABLET PO SCH (20:42)
[2017-04-18 05:20] VITALS: BP 97/59
[2017-04-18] MEDS: BETHANECHOL 10 MG (URECHOLINE) TAB PO SCH ×4 (06:02→20:25)
[2017-04-18] MEDS: MULTIVIT W/MINERALS TAB (THERAGRAN M) PO SCH (06:03)
[2017-04-18] MEDS: MILK OF MAGNESIA 400 MG/5 ML 30 ML UDC PO PRN (06:23)
[2017-04-18] MEDS: SENNOSIDES 8.6 MG (SENOKOT) TAB PO SCH (08:10)
[2017-04-18] MEDS: PHENAZOPYRIDINE 100 MG (PYRIDIUM) TABLET PO SCH ×3 (08:10→17:00)
[2017-04-18] MEDS: amLODIPine 2.5MG (NORVASC) TAB PO SCH (08:10)
[2017-04-18] MEDS: FLUoxetine HCL 20 MG (PROzac) CAP PO SCH (08:10)
[2017-04-18] MEDS: BISACODYL 5 MG (DULCOLAX) TABLET PO PRN (08:10)
[2017-04-18] MEDS: DOCUSATE SODIUM 100 MG (COLACE) CAP PO SCH ×2 (08:10→20:25)
[2017-04-18] MEDS: oxyCODONE/APAP 5/325MG (PERCOCET 5) TABLET PO PRN ×2 (08:19→17:00)
--- NOTE | 2017-04-18 08:53 | Occupational Ther Daily Note ---
OT Current Status-Daily Note Subjective Pt sleeping in bed. Pt woke easily to name. Pt agreed to therapy. Pt c/o pain 5/10 with ribs, nrsg gave pain meds. Mental Status/Objective Patient Orientation: Person, Place, Time, Situation Functional [place] Measure 0=Not Assessed/NA 4=Minimal Assistance 1=Total Assistance 5=Supervision or Setup 2=Maximal Assistance 6=Modified [place] 3=Moderate Assistance 7=Complete [place] Attachments: Drains, IV ADL-Treatment Functional [place] Measure 0=Not Assessed/NA 4=Minimal Assistance 1=Total Assistance 5=Supervision or Setup 2=Maximal Assistance 6=Modified [place] 3=Moderate Assistance 7=Complete IndependenceIRFPAI Quality Coding Scale 6 Independent with activity with or without an assistive device 5 Patient requires set up or clean up by helper. Patient completes activity by themselves 4 Supervision or touching assist (CGA). [place] provide cues , steadying assist 3 The helper provides less than half the effort to complete the activity 2 The helper provides more than half the effort to complete the activity 1 Dependent. The helper does all the effort to complete an activity 7 Patient refused to complete or attempt activity 9 The patient did not perform the activity before the current illness or injury 88 Not attempted due to Medical conditions or safety concerns Grooming (FIM): 6 (Using FWW to stand with at sink, pt is able to complete.) Bathing (FIM): 6 (Using shower bench, grabbars, long handle sponge and hand held shower is able to complete by self.) Bathing Location: L Arm, R Arm, L Upper Leg, R Upper Leg, L Lower Leg ( including foot), R Lower Leg (including foot), Chest, Abdomen, Buttocks, Perineal Area Upper Body (FIM): 6 (Pt retrieves clothing with FWW then doffs/donns by self.) Lower Body Dressing (FIM): 6 (Pt retrieves clothing with FWW then doffs/donns by self using AE to adhere to back precautions.) Toileting (FIM): 6 (Pt able to complete on own.) Transfers (B, C, W/C) (FIM): 6 (Using FWW, pt is able to complete on own.) Toilet/Commode Transfer (FIM): 6 (Using grabbar and FWW, pt able to complete on own.) Shower Transfer(FIM): 6 (Using shower bench, FWW and grabbars pt is able to complete on own.) Pt dons/doffs back brace independently. Pt then ambulate around hospital and maneuver and manipulate through doors by self. After therapy, pt lying in bed with call light/phone in reach. All needs met in room. OT Short Term Goals Short Term Goals 1=Demonstrate adherence to instructed precautions during ADL tasks. 2=Patient will verbalize/demonstrate understanding of assistive devices/ modifications for ADL. 3=Patient will improve strength/tolerance for activity to enable patient to perform ADL's. OT Snf Goals Head Of Physics Goals Time Frame: Apr 29, 2017 Eating (FIM): 6 Eating (QC): 6 Groomin Oral Hygiene (QC): 6 Bathing(FIM): 6 Shower/Bathe Self (QC): 6 Upper Body Dressing(FIM): 6 Upper Body Dressing (QC): 6 Lower Body Dressing(FIM): 6 Lower Body Dressing (QC): 6 On/Off Footwear (QC): 6 Toileting(FIM): 6 Toileting Hygiene (QC): 6 Toilet/Commode Transfer(FIM): 6 Toilet/Commode Transfer (QC): 6 Shower Transfer(FIM): 6 Additional Goals: 1-Demonstrate ADL Tasks, 2-Verbalize Understanding, 3- ImproveStrength/Vinicius 1=Demonstrate adherence to instructed precautions during ADL tasks. 2=Patient will verbalize/demonstrate understanding of assistive devices/ modifications for ADL. 3=Patient will improve strength/tolerance for activity to enable patient to perform ADL's. OT Education/Plan Problem List/Assessment Pt would benefit from skilled OT to increase her independence in basic self care to allow her to safely return to her home to live alone and independently, with family nearby. Discharge Recommendations Plan/Recommendations: Continue POC Therapy D/C Recommendations: Occupational Therapy Home Care Treatment Plan/Plan of Care Patient would benefit from OT for education, treatment and training to promote independence in ADL's, mobility, safety and/or upper extremity function for ADL' s. Plan of Care: ADL Retraining, Functional Mobility, Group Exercise/Act as Ind ( education, exercise, activity tolerance, functional activities), UE Funct Exercise/Act, UE Neuromus Re-Ed/Coord Treatment Duration: Apr 29, 2017 Visits Per Week: 10-11 Minutes/Day (M-F): 75-90 Minutes/Day (Sat/[place]): PRN Agreement: Yes Rehab Potential: Good Time/GCodes Start Time: 08:00 Stop Time: 09:00 Total Time Billed (hr/min): 60 Billed Treatment Time 1 visit-ADL 2 (30 min) FA 2 (30 min) SHAWN VALERIO Apr 18, 2017 08:53
--- NOTE | 2017-04-18 09:13 | PM & R (SOAP) Progress Note ---
Subjective Time Seen by Provider: 07:45 Subjective/Events-last exam Patient was seen in her room this AM Patient sba for transfers Progressing well with therapies ANAHY drain remains in place Objective Exam Last Set of Vital Signs Vital Signs Date Time Temp Pulse Resp B/P (MAP) Pulse Ox O2 Delivery O2 Flow Rate FiO2 04/18/17 05:20 98.5 112 20 97/59 98 04/17/17 06:10 2.00 Capillary Refill : I&O Intake and Output 04/18/17 00:00 Intake Total 880 ml Output Total 130 ml Balance 750 ml Intake Oral 780 ml IV Total 100 ml Drainage Total 130 ml # Voids 8 # Bowel Movements 1 General: Alert, Oriented X3, Cooperative, No Acute Distress HEENT: Atraumatic, PERRLA, EOMI, Mucous Memb Moist/[place] Neck: Supple, No JVD Lungs: Clear to Auscultation Heart: Regular Rate Abdomen: Normal Bowel Sounds, Soft Extremities: No Edema Skin: Other (ANAHY drain in place) Neuro: Other (Generalized weakness) Results Lab Laboratory Tests 04/16/17 06:05: White Blood Count 6.0, Red Blood Count 2.62L, Hemoglobin 7.7L, Hematocrit 24L, Mean Corpuscular Volume 90, Mean Corpuscular Hemoglobin 29, Mean Corpuscular Hemoglobin Concent 33, Red Cell Distribution Width 13.9, Platelet Count 343, Mean Platelet Volume 8.3, Neutrophils (%) (Auto) 67, Lymphocytes (%) (Auto) 23, Monocytes (%) (Auto) 8, Eosinophils (%) (Auto) 2, Basophils (%) (Auto) 1, Neutrophils # (Auto) 4.0, Lymphocytes # (Auto) 1.4, Monocytes # (Auto) 0.5, Eosinophils # (Auto) 0.1, Basophils # (Auto) 0.0, Sodium Level 133L, Potassium Level 3.8, Chloride Level 102, Carbon Dioxide Level 23, Anion Gap 8, Blood Urea Nitrogen 9, Creatinine 0.52L, Estimat Glomerular Filtration Rate > 60, BUN/ Creatinine Ratio 17, Glucose Level 82, Calcium Level 8.3L, Total Bilirubin 0.3, Aspartate Amino Transf (AST/SGOT) 52H, Alanine Aminotransferase (ALT/SGPT) 24, Alkaline Phosphatase 51, Total Protein 5.3L, Albumin 2.7L Assessment/Plan Assessment S/P fusion Orthospine for Scoliosis Postop anemia improving Postop urinary retention improving Postop ileus resolved Plan Continue PT/OT/Wound care F/U with DR De Los Santos and Medical management and DR Hinojosa as per their schedule Team Conference held 04/16/17--See report for full functional update and POC and ELOS Discharge set tentatively for 04/23/17 ISABELLE PHAN MD Apr 18, 2017 09:13
--- NOTE | 2017-04-18 09:19 | Individualized Plan of Care ---
Individualized Plan of Care Rehab Nursing IPOC Order Admission Date Apr 15, 2017 at 11:45 Current Orders Orders Patient Visit (04/17/17 ) Gait Training, Ea 15 Min (04/17/17 ) Exercise Therap, Ea 15 Min (04/17/17 ) Functional Activities, Ea 15 (04/17/17 ) Patient Visit (04/17/17 ) Therapeutic, Group (04/17/17 ) Rehab Nursing Orders: Bladder Scan, Diseage Management, Edu in Press Rel Techn , Hydration Management, Nutrition Management, Pain Management Toilet every (bladder): (hrs): 2 hours while awake prn PT IPOC Problem List: Functional Strength, Balance, Gait Treatment Plan: Continue Plan of Care Bed Mobility, Education, Functional Activity Vinicius, Functional Strength, Group Therapy, Gait, Safety, Therapeutic Exercise, Transfers Treatment Duration: Apr 29, 2017 Visits Per Week: 10-14 Minutes/Day (M-F): 60-90 Minutes/Day (Sat/[place]): prn OT IPOC Problems: Decreased Activ Tolerance, Decreased UE Strength, Dependent Transfers , Impaired Funct Balance, Impaired Self-Care Skills OT Problems Pt would benefit from skilled OT to increase her independence in basic self care to allow her to safely return to her home to live alone and independently, with family nearby. Plan of Care: ADL Retraining, Functional Mobility, Group Exercise/Act as Ind ( education, exercise, activity tolerance, functional activities), UE Funct Exercise/Act, UE Neuromus Re-Ed/Coord Treatment Duration: Apr 29, 2017 Visits Per Week: 10-11 Minutes/Day (M-F): 75-90 Minutes/Day (Sat/[place]): PRN ST IPOC Speech Therapy Treatment Plan: Discontinue ST Physician IPOC Medical Issues being managed closely and that require the 24 hour availability of a physician:HTN postop urinary retention Postop ileus pain management Medical Issues: Bowel/Bladder Function, DVT Prophylaxis, Falls Precautions, Fluid/Electrolyte/Nutrition Balance, Infection Protection, Pain Management, Wound Care, Other (List) (as per above) Brief Synthesis of Preadmission Screen, Post-Admission Evaluation, and Therapy Evaluations: 61 yo female s/p Spinal srugery for teatment of painful scoliosis who had postop ileus and urinary retention who had been Independent prior to this but with increasing back pain Lives alone and referred to IRU for ongoing care and therapies and managemnet of postop urinary retentiom Medical Prognosis: good Anticipated Length of Stay: 6-17 Rehab Goals Modified Independent for adls and mobility with continence of bowel and bladder Anticipated discharge destinat: Home with [facility] and family ISABELLE PHAN MD Apr 18, 2017 09:19
--- NOTE | 2017-04-18 10:03 | Physical Therapy Daily Note ---
PT Daily Note-Current Subjective Pt. states she feels so pleased with her results from surgery and pain is really 0/10. Pain Numeric Pain Scale: 0-No Pain Appearance thin strong fit and motivated Mental Status Patient Orientation: Normal For Age Attachments: Other-See Comments (back brace) Transfers Functional [place] Measure 0=Not Assessed/NA 4=Minimal Assistance 1=Total Assistance 5=Supervision or Setup 2=Maximal Assistance 6=Modified [place] 3=Moderate Assistance 7=Complete IndependenceIRFPAI Quality Coding Scale 6 Independent with activity with or without an assistive device 5 Patient requires set up or clean up by helper. Patient completes activity by themselves 4 Supervision or touching assist (CGA). [place] provide cues , steadying assist 3 The helper provides less than half the effort to complete the activity 2 The helper provides more than half the effort to complete the activity 1 Dependent. The helper does all the effort to complete an activity 7 Patient refused to complete or attempt activity 9 The patient did not perform the activity before the current illness or injury 88 Not attempted due to Medical conditions or safety concerns Transfers (B, C, W/C) (FIM): 6 Scootin Rollin Supine to/from Sit: 6 Sit to/from Stand: 6 Bed to/from Chair: 6 good log roll every time Gait Training Does the Patient Walk?: Yes Gait (FIM): 6 Distance (FIM): 3=150 ft (250x3) Gait Level of Assist: 6 Gait Persons Needed: 0 Gait Assistive Device: FWW pt. slow but no LOB Stair Training Stair Training: Handrails/: 1 handrail (and walker sideways with instruction) Stairs (FIM): 2 #of Steps: 4 Level of Assist: 4 Exercises Supine Ex: Ankle pumps, Rolling, Heel Slides, Hip abd/add Supine Reps: 12 Standing: Hip Abduction, Hamstring curls, Heel/toe raises, Marching, Mini squats Standing Reps: 15 good technique and form for all Treatments pt. lolly dyson back brace indep Assessment Current Status: Excellent Progress PT Short Term Goals Short Term Goals Time Frame: Apr 22, 2017 Gait (FIM): 5 PT Custodial Goals Metal Ceiling Builder Goals PT Custodial Goals Time Frame: Apr 29, 2017 Transfers (B,C,W/C) (FIM): 7 Sit to Lying (QC): 6 Lying-Sitting on Side/Bed(QC): 6 Sit to Stand (QC): 6 Rollin Roll Left to Right (QC): 6 Chair/Wev-so-Ndezz Xfer(QC): 6 Car Transfer (QC): 6 Does the Patient Walk: Yes Gait (FIM): 6 Gait distance (FIM): 3=150 ft Walk 10 feet (QC): 6 Walk 10ft-Uneven Surface(QC): 6 Walk 50ft with 2 Turns (QC): 6 Walk 150 ft (QC): 6 Gait Level of Assist: 6 Gait Assistive Device: FWW Does the Pt use WC or Scooter?: No Stairs (FIM): 6 # of Steps: 12 1 Step (curb) (QC): 6 4 Steps (QC): 6 12 Steps (QC): 6 Stairs Level Of Assist: 6 Picking up an Object (QC): 88 PT Plan Treatment/Plan Treatment Plan: Continue Plan of Care Treatment Plan: Bed Mobility, Education, Functional Activity Vinicius, Functional Strength, Group Therapy, Gait, Safety, Therapeutic Exercise, Transfers Treatment Duration: Apr 29, 2017 Visits Per Week: 10-14 Minutes/Day (M-F): 60-90 Minutes/Day (Sat/[place]): prn Safety Risks/Education Patient Education: Gait Training, Transfer Techniques, Steps, Correct Positioning, Safety Issues Teaching Recipient: Patient Teaching Methods: Demonstration, Discussion Response to Teaching: Verbalize Understanding, Return Demonstration Time/GCodes Time In: 900 Time Out: 1000 Total Billed Treatment Time: 60 Total Billed Treatment 1,GT15m,FA25m,EX20 G Codes Necessary: KERA Wood LABORER PIE BAKERY Apr 18, 2017 10:03
[2017-04-18] MEDS ORDERED: MILK OF MAGNESIA 400 MG/5 ML 30 ML UDC PO PRN (13:30)
[2017-04-18] MEDS ORDERED: FLEET ENEMA ADULT 1 EA BTL PR PRN (13:30)
--- NOTE | 2017-04-18 13:46 | Therapy Group Daily Note ---
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 Pt gathered in [facility] to eat lunch together. Pt's discussed home safety in the kitchen. Topics were of safety awareness while using kitchen appliances, food preparations, kitchen utensils and problem solving safety issues. Pt contributed to discussions appropriately and demonstrated understanding of all areas discussed. Pt was able to complete own set up for lunch then use regular utensils to cook food and feed self. After therapy, pt lying in bed with call light/phone in reach. All needs met in room. Start Time: 11:50 Stop Time: 13:00 Total Billed Treatment Time: 70 Total Billed Treatment 1-GRP SHAWN VALERIO Apr 18, 2017 13:46
[2017-04-18 17:33] VITALS: BP 103/66
[2017-04-18] MEDS: CYCLOBENZAPRINE 10 MG (FLEXERIL) TAB PO PRN (20:25)
[2017-04-18] MEDS: LORazepam 0.5 MG (ATIVAN) TABLET PO SCH (20:25)
[2017-04-18] MEDS: SENNA W/DOCUSATE (SENOKOT S) TABLET PO SCH (20:26)
[2017-04-19] MEDS: oxyCODONE/APAP 5/325MG (PERCOCET 5) TABLET PO PRN ×3 (03:19→22:38)
[2017-04-19] MEDS: CYCLOBENZAPRINE 10 MG (FLEXERIL) TAB PO PRN ×2 (05:24→20:32)
[2017-04-19] MEDS: BETHANECHOL 10 MG (URECHOLINE) TAB PO SCH ×4 (05:24→20:32)
[2017-04-19 05:33] VITALS: BP 152/77
[2017-04-19] MEDS: MULTIVIT W/MINERALS TAB (THERAGRAN M) PO SCH (06:00)
[2017-04-19] MEDS: PHENAZOPYRIDINE 100 MG (PYRIDIUM) TABLET PO SCH ×3 (09:02→17:22)
[2017-04-19] MEDS: FLUoxetine HCL 20 MG (PROzac) CAP PO SCH (09:02)
[2017-04-19] MEDS: DOCUSATE SODIUM 100 MG (COLACE) CAP PO SCH ×2 (09:02→20:32)
[2017-04-19] MEDS: SENNA W/DOCUSATE (SENOKOT S) TABLET PO SCH ×2 (09:02→20:32)
[2017-04-19] MEDS: amLODIPine 2.5MG (NORVASC) TAB PO SCH (09:02)
--- NOTE | 2017-04-19 10:21 | Physical Therapy Daily Note ---
PT Daily Note-Current Subjective Pt. agrees to Rx, states she is constipated and had one very hard BM but really needs to go. States she feels its the pain meds and is not sure how you manage pain and keeping bowels clear Pain Numeric Pain Scale: 0-No Pain Mental Status Patient Orientation: Normal For Age Attachments: Other-See Comments (back brace, min assist to vanessa) Transfers Functional [place] Measure 0=Not Assessed/NA 4=Minimal Assistance 1=Total Assistance 5=Supervision or Setup 2=Maximal Assistance 6=Modified [place] 3=Moderate Assistance 7=Complete IndependenceIRFPAI Quality Coding Scale 6 Independent with activity with or without an assistive device 5 Patient requires set up or clean up by helper. Patient completes activity by themselves 4 Supervision or touching assist (CGA). [place] provide cues , steadying assist 3 The helper provides less than half the effort to complete the activity 2 The helper provides more than half the effort to complete the activity 1 Dependent. The helper does all the effort to complete an activity 7 Patient refused to complete or attempt activity 9 The patient did not perform the activity before the current illness or injury 88 Not attempted due to Medical conditions or safety concerns Transfers (B, C, W/C) (FIM): 6 Scootin Rollin Supine to/from Sit: 7 Sit to/from Stand: 7 Bed to/from Chair: 6 Gait Training Does the Patient Walk?: Yes Gait (FIM): 5 Distance (FIM): 3=150 ft (700) Gait Level of Assist: 6 Gait Persons Needed: 0 Gait Assistive Device: FWW Stair Training Stair Training: Handrails/: 1 handrail, uses walker Stairs (FIM): 4 #of Steps: 4 Stairs: Pattern: Step to Level of Assist: 5 , good technique and sequence ,walker sideways up down step Exercises NuStep Minutes: 12 NuStep Workload: 5 Assessment Current Status: Good Progress pt. wanted aroebic exercise to try to stimulate bowels as well as cold then hot drinks PT Short Term Goals Short Term Goals Time Frame: Apr 22, 2017 Gait (FIM): 5 PT Wire Roller Goals Wire Roller Goals PT Retirement Goals Time Frame: Apr 29, 2017 Transfers (B,C,W/C) (FIM): 7 Sit to Lying (QC): 6 Lying-Sitting on Side/Bed(QC): 6 Sit to Stand (QC): 6 Rollin Roll Left to Right (QC): 6 Chair/Zac-pb-Bjvhp Xfer(QC): 6 Car Transfer (QC): 6 Does the Patient Walk: Yes Gait (FIM): 6 Gait distance (FIM): 3=150 ft Walk 10 feet (QC): 6 Walk 10ft-Uneven Surface(QC): 6 Walk 50ft with 2 Turns (QC): 6 Walk 150 ft (QC): 6 Gait Level of Assist: 6 Gait Assistive Device: FWW Does the Pt use WC or Scooter?: No Stairs (FIM): 6 # of Steps: 12 1 Step (curb) (QC): 6 4 Steps (QC): 6 12 Steps (QC): 6 Stairs Level Of Assist: 6 Picking up an Object (QC): 88 PT Plan Treatment/Plan Treatment Plan: Continue Plan of Care Treatment Plan: Bed Mobility, Education, Functional Activity Vinicius, Functional Strength, Group Therapy, Gait, Safety, Therapeutic Exercise, Transfers Treatment Duration: Apr 29, 2017 Visits Per Week: 10-14 Minutes/Day (M-F): 60-90 Minutes/Day (Sat/[place]): prn Safety Risks/Education Patient Education: Gait Training, Transfer Techniques, Steps Teaching Recipient: Patient Teaching Methods: Demonstration, Discussion Response to Teaching: Verbalize Understanding, Return Demonstration Time/GCodes Time In: 945 Time Out: 1025 Total Billed Treatment Time: 40 Total Billed Treatment 1,GT25m,EX15m G Codes Necessary: KERA Wood PEST CONTROL SUPERVISOR Apr 19, 2017 10:21
[2017-04-19] MEDS: IRON SUCROSE INJECTION 200 MG in NS (IVPB) 100 ML IV SCH (13:29)
[2017-04-19 18:00] VITALS: BP 109/69
[2017-04-19] MEDS: LORazepam 0.5 MG (ATIVAN) TABLET PO SCH (20:32)
[2017-04-20] MEDS: MULTIVIT W/MINERALS TAB (THERAGRAN M) PO SCH (05:16)
[2017-04-20] MEDS: BETHANECHOL 10 MG (URECHOLINE) TAB PO SCH ×4 (05:16→20:12)
[2017-04-20 05:30] VITALS: BP 139/75
[2017-04-20] MEDS: DOCUSATE SODIUM 100 MG (COLACE) CAP PO SCH ×2 (08:10→20:12)
[2017-04-20] MEDS: amLODIPine 2.5MG (NORVASC) TAB PO SCH (08:10)
[2017-04-20] MEDS: MILK OF MAGNESIA 400 MG/5 ML 30 ML UDC PO PRN (08:10)
[2017-04-20] MEDS: SENNA W/DOCUSATE (SENOKOT S) TABLET PO SCH ×2 (08:11→20:12)
[2017-04-20] MEDS: FLUoxetine HCL 20 MG (PROzac) CAP PO SCH (08:11)
[2017-04-20] MEDS: PHENAZOPYRIDINE 100 MG (PYRIDIUM) TABLET PO SCH ×3 (08:14→16:54)
[2017-04-20] MEDS: oxyCODONE/APAP 5/325MG (PERCOCET 5) TABLET PO PRN (16:58)
[2017-04-20] MEDS: CYCLOBENZAPRINE 10 MG (FLEXERIL) TAB PO PRN (16:58)
[2017-04-20] MEDS: BISACODYL 5 MG (DULCOLAX) TABLET PO PRN ×2 (16:58→16:59)
[2017-04-20 18:03] VITALS: BP 137/78
[2017-04-20] MEDS: LORazepam 0.5 MG (ATIVAN) TABLET PO SCH (20:12)
[2017-04-21] MEDS: CYCLOBENZAPRINE 10 MG (FLEXERIL) TAB PO PRN (00:55)
[2017-04-21] MEDS: oxyCODONE/APAP 5/325MG (PERCOCET 5) TABLET PO PRN ×3 (01:58→18:08)
[2017-04-21 05:10] VITALS: BP 122/73
[2017-04-21] MEDS: MULTIVIT W/MINERALS TAB (THERAGRAN M) PO SCH (06:23)
[2017-04-21] MEDS: BETHANECHOL 10 MG (URECHOLINE) TAB PO SCH ×4 (06:24→20:24)
[2017-04-21] MEDS: CATHETER FLUSH 10 ML SYR IV PRN ×2 (06:29→20:24)
[2017-04-21] MEDS: SENNA W/DOCUSATE (SENOKOT S) TABLET PO SCH ×2 (07:53→20:24)
[2017-04-21] MEDS: amLODIPine 2.5MG (NORVASC) TAB PO SCH (07:53)
[2017-04-21] MEDS: PHENAZOPYRIDINE 100 MG (PYRIDIUM) TABLET PO SCH ×3 (07:53→17:12)
[2017-04-21] MEDS: DOCUSATE SODIUM 100 MG (COLACE) CAP PO SCH ×2 (07:53→20:24)
[2017-04-21] MEDS: FLUoxetine HCL 20 MG (PROzac) CAP PO SCH (07:53)
--- NOTE | 2017-04-21 09:57 | Physical Therapy Daily Note ---
PT Daily Note-Current Subjective Pt. states she is feeling better everyday and plans on DC for Wed, Pain Numeric Pain Scale: 3 Location: Medial Location Body Site: Back Pain Description: Ache Mental Status Patient Orientation: Normal For Age Attachments: Other-See Comments (back brace, donns and doffs indep) Transfers Functional [place] Measure 0=Not Assessed/NA 4=Minimal Assistance 1=Total Assistance 5=Supervision or Setup 2=Maximal Assistance 6=Modified [place] 3=Moderate Assistance 7=Complete IndependenceIRFPAI Quality Coding Scale 6 Independent with activity with or without an assistive device 5 Patient requires set up or clean up by helper. Patient completes activity by themselves 4 Supervision or touching assist (CGA). [place] provide cues , steadying assist 3 The helper provides less than half the effort to complete the activity 2 The helper provides more than half the effort to complete the activity 1 Dependent. The helper does all the effort to complete an activity 7 Patient refused to complete or attempt activity 9 The patient did not perform the activity before the current illness or injury 88 Not attempted due to Medical conditions or safety concerns Transfers (B, C, W/C) (FIM): 6 Scootin Rollin Supine to/from Sit: 6 Sit to/from Stand: 6 Bed to/from Chair: 6 Gait Training Does the Patient Walk?: Yes Gait (FIM): 6 Distance (FIM): 3=150 ft (600x2) Gait Level of Assist: 6 Gait Persons Needed: 0 Gait Assistive Device: FWW out of doors, managing FWW on off elevator as well as over many cracks in sidewalk and over rugs, graded areas all no LOB or incident. Side steps left and right, retro and 360 degree turns both directions Stair Training Stair Training: Handrails/: 2 handrails Exercises Standing: Hip Abduction, Hamstring curls, Heel/toe raises, Marching, Mini squats, Sit to Stand Standing Reps: 15 Assessment Current Status: Excellent Progress Great progress PT Short Term Goals Short Term Goals Time Frame: Apr 22, 2017 Gait (FIM): 5 PT Senior Java Programmer Goals Senior Java Programmer Goals PT Mcc Goals Time Frame: Apr 29, 2017 Transfers (B,C,W/C) (FIM): 7 Sit to Lying (QC): 6 Lying-Sitting on Side/Bed(QC): 6 Sit to Stand (QC): 6 Rollin Roll Left to Right (QC): 6 Chair/Bhi-bd-Brwcx Xfer(QC): 6 Car Transfer (QC): 6 Does the Patient Walk: Yes Gait (FIM): 6 Gait distance (FIM): 3=150 ft Walk 10 feet (QC): 6 Walk 10ft-Uneven Surface(QC): 6 Walk 50ft with 2 Turns (QC): 6 Walk 150 ft (QC): 6 Gait Level of Assist: 6 Gait Assistive Device: FWW Does the Pt use WC or Scooter?: No Stairs (FIM): 6 # of Steps: 12 1 Step (curb) (QC): 6 4 Steps (QC): 6 12 Steps (QC): 6 Stairs Level Of Assist: 6 Picking up an Object (QC): 88 PT Plan Treatment/Plan Treatment Plan: Continue Plan of Care Treatment Plan: Bed Mobility, Education, Functional Activity Vinicius, Functional Strength, Group Therapy, Gait, Safety, Therapeutic Exercise, Transfers Treatment Duration: Apr 29, 2017 Visits Per Week: 10-14 Minutes/Day (M-F): 60-90 Minutes/Day (Sat/[place]): prn Safety Risks/Education Patient Education: Gait Training, Transfer Techniques, Correct Positioning, Disease Process, Safety Issues Teaching Recipient: Patient Teaching Methods: Demonstration, Discussion Response to Teaching: Verbalize Understanding, Return Demonstration Time/GCodes Time In: 900 Time Out: 1000 Total Billed Treatment Time: 60 Total Billed Treatment 1,EX35m,GT25m G Codes Necessary: KERA Wood REEL SYSTEM OPERATOR Apr 21, 2017 09:57
--- NOTE | 2017-04-21 10:55 | Occupational Ther Daily Note ---
OT Current Status-Daily Note Subjective Pt alert, lying in bed. Pt agreed to therapy. No c/o pain at this time. Mental Status/Objective Patient Orientation: Person, Place, Time, Situation Functional [place] Measure 0=Not Assessed/NA 4=Minimal Assistance 1=Total Assistance 5=Supervision or Setup 2=Maximal Assistance 6=Modified [place] 3=Moderate Assistance 7=Complete [place] Attachments: Drains, IV ADL-Treatment Functional [place] Measure 0=Not Assessed/NA 4=Minimal Assistance 1=Total Assistance 5=Supervision or Setup 2=Maximal Assistance 6=Modified [place] 3=Moderate Assistance 7=Complete IndependenceIRFPAI Quality Coding Scale 6 Independent with activity with or without an assistive device 5 Patient requires set up or clean up by helper. Patient completes activity by themselves 4 Supervision or touching assist (CGA). [place] provide cues , steadying assist 3 The helper provides less than half the effort to complete the activity 2 The helper provides more than half the effort to complete the activity 1 Dependent. The helper does all the effort to complete an activity 7 Patient refused to complete or attempt activity 9 The patient did not perform the activity before the current illness or injury 88 Not attempted due to Medical conditions or safety concerns Grooming (FIM): 6 (Standing at sink with FWW, pt able to complete grooming on own.) Bathing (FIM): 6 (Using shower bench, long handle sponge, grabbar and hand held shower pt is able to complete own bathing.) Bathing Location: L Arm, R Arm, L Upper Leg, R Upper Leg, L Lower Leg ( including foot), R Lower Leg (including foot), Chest, Abdomen, Buttocks, Perineal Area Upper Body (FIM): 6 (Retrieves clothing with FWW and is able to don/doff by self.) Lower Body Dressing (FIM): 6 (Retrieves clothing with FWW and is able to don/ doff using lower body AE by self.) Shower Transfer(FIM): 6 (Using FWW, shower bench and grabbars pt is able to transfer by self.) Other Treatment Pt ambulated to therapy gym with FWW. Pt completed arm bike 15 min duration at 15 hall resistance to increase strength and activity tolerance for daily functional tasks. Pt tolerated well, no breaks needed. Pt then completed functional daily activities with FWW. Pt was able to reach into cabinet and grasp a cup then open refrigerator door and retrieve bottle. Pt completed each task without LOB and demonstrated good safety strategies. After therapy, pt lying in bed with call light/phone in reach. All needs met in room. OT Short Term Goals Short Term Goals 1=Demonstrate adherence to instructed precautions during ADL tasks. 2=Patient will verbalize/demonstrate understanding of assistive devices/ modifications for ADL. 3=Patient will improve strength/tolerance for activity to enable patient to perform ADL's. OT Reproductive Endocrinologist Goals Reproductive Endocrinologist Goals Time Frame: Apr 29, 2017 Eating (FIM): 6 Eating (QC): 6 Groomin Oral Hygiene (QC): 6 Bathing(FIM): 6 Shower/Bathe Self (QC): 6 Upper Body Dressing(FIM): 6 Upper Body Dressing (QC): 6 Lower Body Dressing(FIM): 6 Lower Body Dressing (QC): 6 On/Off Footwear (QC): 6 Toileting(FIM): 6 Toileting Hygiene (QC): 6 Toilet/Commode Transfer(FIM): 6 Toilet/Commode Transfer (QC): 6 Shower Transfer(FIM): 6 Additional Goals: 1-Demonstrate ADL Tasks, 2-Verbalize Understanding, 3- ImproveStrength/Vinicius 1=Demonstrate adherence to instructed precautions during ADL tasks. 2=Patient will verbalize/demonstrate understanding of assistive devices/ modifications for ADL. 3=Patient will improve strength/tolerance for activity to enable patient to perform ADL's. OT Education/Plan Problem List/Assessment Pt would benefit from skilled OT to increase her independence in basic self care to allow her to safely return to her home to live alone and independently, with family nearby. Discharge Recommendations Plan/Recommendations: Continue POC Treatment Plan/Plan of Care Patient would benefit from OT for education, treatment and training to promote independence in ADL's, mobility, safety and/or upper extremity function for ADL' s. Plan of Care: ADL Retraining, Functional Mobility, Group Exercise/Act as Ind ( education, exercise, activity tolerance, functional activities), UE Funct Exercise/Act, UE Neuromus Re-Ed/Coord Treatment Duration: Apr 29, 2017 Visits Per Week: 10-11 Minutes/Day (M-F): 75-90 Minutes/Day (Sat/[place]): PRN Agreement: Yes Rehab Potential: Good Time/GCodes Start Time: 08:00 Stop Time: 09:00 Total Time Billed (hr/min): 60 Billed Treatment Time 1 visit-ADL 2 (30 min) EX 1 (15 min) FA 1 (15 min) SHAWN VALEROI Apr 21, 2017 10:54
[2017-04-21] MEDS: IRON SUCROSE INJECTION 200 MG in NS (IVPB) 100 ML IV SCH (11:14)
--- NOTE | 2017-04-21 14:22 | Physical Therapy Daily Note ---
PT Daily Note-Current Subjective Pt. agrees to Rx. States she still has trouble sometimes getting brace on correctly, sometimes up side down and still cant distinguish where the black on black velcro strips are while donning Pain Numeric Pain Scale: 0-No Pain Mental Status Patient Orientation: Normal For Age Attachments: Other-See Comments (back brace) Transfers Functional [place] Measure 0=Not Assessed/NA 4=Minimal Assistance 1=Total Assistance 5=Supervision or Setup 2=Maximal Assistance 6=Modified [place] 3=Moderate Assistance 7=Complete IndependenceIRFPAI Quality Coding Scale 6 Independent with activity with or without an assistive device 5 Patient requires set up or clean up by helper. Patient completes activity by themselves 4 Supervision or touching assist (CGA). [place] provide cues , steadying assist 3 The helper provides less than half the effort to complete the activity 2 The helper provides more than half the effort to complete the activity 1 Dependent. The helper does all the effort to complete an activity 7 Patient refused to complete or attempt activity 9 The patient did not perform the activity before the current illness or injury 88 Not attempted due to Medical conditions or safety concerns all TRFs Mod I Gait Training Gait Assistive Device: FWW [id number] Mod I no LOB, p ad dari status Stair Training Stair Training: Handrails/: uses walker (sideways and one handrail) Stairs (FIM): 5 #of Steps: 4 Stairs: Pattern: Step to Level of Assist: 5 household exception Exercises Seated Therapy Exercises: Ankle pumps, Sit to stand, Long arc quads, Hip flexion Seated Reps: 10 NuStep Minutes: 10 NuStep Workload: 5 Assessment Current Status: Excellent Progress plans to DC Wed with assist of great friend PT Short Term Goals Short Term Goals Time Frame: Apr 22, 2017 Gait (FIM): 5 PT Digital Marketing Officer Goals Penitentiary Goals PT Penitentiary Goals Time Frame: Apr 29, 2017 Transfers (B,C,W/C) (FIM): 7 Sit to Lying (QC): 6 Lying-Sitting on Side/Bed(QC): 6 Sit to Stand (QC): 6 Rollin Roll Left to Right (QC): 6 Chair/Eig-mf-Rczlg Xfer(QC): 6 Car Transfer (QC): 6 Does the Patient Walk: Yes Gait (FIM): 6 Gait distance (FIM): 3=150 ft Walk 10 feet (QC): 6 Walk 10ft-Uneven Surface(QC): 6 Walk 50ft with 2 Turns (QC): 6 Walk 150 ft (QC): 6 Gait Level of Assist: 6 Gait Assistive Device: FWW Does the Pt use WC or Scooter?: No Stairs (FIM): 6 # of Steps: 12 1 Step (curb) (QC): 6 4 Steps (QC): 6 12 Steps (QC): 6 Stairs Level Of Assist: 6 Picking up an Object (QC): 88 PT Plan Treatment/Plan Treatment Plan: Continue Plan of Care Treatment Plan: Bed Mobility, Education, Functional Activity Vinicius, Functional Strength, Group Therapy, Gait, Safety, Therapeutic Exercise, Transfers Treatment Duration: Apr 29, 2017 Visits Per Week: 10-14 Minutes/Day (M-F): 60-90 Minutes/Day (Sat/[place]): prn Safety Risks/Education Patient Education: Gait Training, Transfer Techniques, Steps Teaching Recipient: Patient Teaching Methods: Demonstration, Discussion Response to Teaching: Verbalize Understanding, Return Demonstration Time/GCodes Time In: 1335 Time Out: 1405 Total Billed Treatment Time: 30 Total Billed Treatment 1,FA15m,EX15m G Codes Necessary: KERA Wood MACHINERY CLEANER Apr 21, 2017 14:22
--- NOTE | 2017-04-21 15:11 | Occupational Ther Daily Note ---
OT Current Status-Daily Note Subjective Took over pt care from PT in therapy gym. Pt agreed to therapy. No c/o pain at this time. Mental Status/Objective Functional [place] Measure 0=Not Assessed/NA 4=Minimal Assistance 1=Total Assistance 5=Supervision or Setup 2=Maximal Assistance 6=Modified [place] 3=Moderate Assistance 7=Complete [place] ADL-Treatment Functional [place] Measure 0=Not Assessed/NA 4=Minimal Assistance 1=Total Assistance 5=Supervision or Setup 2=Maximal Assistance 6=Modified [place] 3=Moderate Assistance 7=Complete IndependenceIRFPAI Quality Coding Scale 6 Independent with activity with or without an assistive device 5 Patient requires set up or clean up by helper. Patient completes activity by themselves 4 Supervision or touching assist (CGA). [place] provide cues , steadying assist 3 The helper provides less than half the effort to complete the activity 2 The helper provides more than half the effort to complete the activity 1 Dependent. The helper does all the effort to complete an activity 7 Patient refused to complete or attempt activity 9 The patient did not perform the activity before the current illness or injury 88 Not attempted due to Medical conditions or safety concerns Other Treatment Pt is able to ambulate with FWW and reach, grasp and open doors/cabinets with mod I. Pt demonstrates good understanding of back precautions and safety strategies during daily functional tasks. Pt was able to use pediatrics physician to pick items up off floor and adhere to precautions. Pt then demonstrated good body mechanics with picking up items from different heights with FWW. After therapy , pt lying in bed with call light/phone in reach. All needs met in room. Education OT Patient Education: Instructions don/doff splint/brace, Modified ADL techniques, Purpose of tx/functional activities, Safety issues, Transfer techniques Teaching Recipient: Patient Teaching Methods: Demonstration, Discussion Response to Teaching: Verbalize Understanding, Return Demonstration OT Short Term Goals Short Term Goals 1=Demonstrate adherence to instructed precautions during ADL tasks. 2=Patient will verbalize/demonstrate understanding of assistive devices/ modifications for ADL. 3=Patient will improve strength/tolerance for activity to enable patient to perform ADL's. OT Longterm Goals Longterm Goals Time Frame: Apr 29, 2017 Eating (FIM): 6 Eating (QC): 6 Groomin Oral Hygiene (QC): 6 Bathing(FIM): 6 Shower/Bathe Self (QC): 6 Upper Body Dressing(FIM): 6 Upper Body Dressing (QC): 6 Lower Body Dressing(FIM): 6 Lower Body Dressing (QC): 6 On/Off Footwear (QC): 6 Toileting(FIM): 6 Toileting Hygiene (QC): 6 Toilet/Commode Transfer(FIM): 6 Toilet/Commode Transfer (QC): 6 Shower Transfer(FIM): 6 Additional Goals: 1-Demonstrate ADL Tasks, 2-Verbalize Understanding, 3- ImproveStrength/Vinicius 1=Demonstrate adherence to instructed precautions during ADL tasks. 2=Patient will verbalize/demonstrate understanding of assistive devices/ modifications for ADL. 3=Patient will improve strength/tolerance for activity to enable patient to perform ADL's. OT Education/Plan Problem List/Assessment Pt would benefit from skilled OT to increase her independence in basic self care to allow her to safely return to her home to live alone and independently, with family nearby. Discharge Recommendations Plan/Recommendations: Continue POC Treatment Plan/Plan of Care Patient would benefit from OT for education, treatment and training to promote independence in ADL's, mobility, safety and/or upper extremity function for ADL' s. Plan of Care: ADL Retraining, Functional Mobility, Group Exercise/Act as Ind ( education, exercise, activity tolerance, functional activities), UE Funct Exercise/Act, UE Neuromus Re-Ed/Coord Treatment Duration: Apr 29, 2017 Visits Per Week: 10-11 Minutes/Day (M-F): 75-90 Minutes/Day (Sat/[place]): PRN Agreement: Yes Rehab Potential: Good Time/GCodes Start Time: 14:10 Stop Time: 14:40 Total Time Billed (hr/min): 30 Billed Treatment Time 1 visit-FA 2 (30 min) SHAWN VALERIO Apr 21, 2017 15:11
[2017-04-21 17:26] VITALS: BP 124/68
--- NOTE | 2017-04-21 19:54 | PM & R (SOAP) Progress Note ---
Subjective Time Seen by Provider: 18:35 Subjective/Events-last exam Patient was seen in her room this evening Has progressed well Constipation resolved with adjustment of bowel meds Patient Modified Independent for transfers. Objective Exam Last Set of Vital Signs Vital Signs Date Time Temp Pulse Resp B/P (MAP) Pulse Ox O2 Delivery O2 Flow Rate FiO2 04/21/17 17:26 97.9 88 16 124/68 98 Room Air 04/17/17 06:10 2.00 Capillary Refill : I&O Intake and Output 04/21/17 00:00 Intake Total 1220 ml Output Total 1065 ml Balance 155 ml Intake Oral 1220 ml Output Urine Total 1000 ml Drainage Total 65 ml # Voids 10 General: Alert, Oriented X3, Cooperative, No Acute Distress HEENT: Atraumatic, PERRLA, EOMI, Mucous Memb Moist/[place] Neck: Supple, No JVD Lungs: Clear to Auscultation Heart: Regular Rate Abdomen: Normal Bowel Sounds, Soft Extremities: No Edema Skin: Other (ANAHY drain in place) Neuro: Other (Generalized weakness) Assessment/Plan Assessment S/P fusion Orthospine for Scoliosis Postop anemia improving Postop urinary retention improved Postop ileus resolved Postop constipation resolved Plan Continue PT/OT/Wound care F/U with DR De Los Santos and Medical management and DR Hinojosa as per their schedule Discharge remains tentatively set for Friday04/23/17 ISABELLE PHAN MD Apr 21, 2017 19:54
[2017-04-21] MEDS: LORazepam 0.5 MG (ATIVAN) TABLET PO SCH (20:24)
[2017-04-22] MEDS: CYCLOBENZAPRINE 10 MG (FLEXERIL) TAB PO PRN (00:04)
[2017-04-22] MEDS: oxyCODONE/APAP 5/325MG (PERCOCET 5) TABLET PO PRN ×3 (00:04→19:45)
[2017-04-22 04:46] VITALS: BP 123/73
[2017-04-22] MEDS: BETHANECHOL 10 MG (URECHOLINE) TAB PO SCH ×4 (05:00→21:06)
[2017-04-22] MEDS: MULTIVIT W/MINERALS TAB (THERAGRAN M) PO SCH (06:23)
[2017-04-22] MEDS: FLUoxetine HCL 20 MG (PROzac) CAP PO SCH (07:48)
[2017-04-22] MEDS: amLODIPine 2.5MG (NORVASC) TAB PO SCH (07:49)
[2017-04-22] MEDS: PHENAZOPYRIDINE 100 MG (PYRIDIUM) TABLET PO SCH ×3 (07:49→17:08)
[2017-04-22] MEDS: DOCUSATE SODIUM 100 MG (COLACE) CAP PO SCH ×2 (07:49→21:06)
[2017-04-22] MEDS: SENNA W/DOCUSATE (SENOKOT S) TABLET PO SCH ×2 (07:52→21:08)
--- NOTE | 2017-04-22 09:07 | Occupational Ther Daily Note ---
OT Current Status-Daily Note Subjective Pt alert, lying in bed. Pt agreed to therapy. No c/o pain at this time. Mental Status/Objective Patient Orientation: Person, Place, Time, Situation Functional [place] Measure 0=Not Assessed/NA 4=Minimal Assistance 1=Total Assistance 5=Supervision or Setup 2=Maximal Assistance 6=Modified [place] 3=Moderate Assistance 7=Complete [place] ADL-Treatment Functional [place] Measure 0=Not Assessed/NA 4=Minimal Assistance 1=Total Assistance 5=Supervision or Setup 2=Maximal Assistance 6=Modified [place] 3=Moderate Assistance 7=Complete IndependenceIRFPAI Quality Coding Scale 6 Independent with activity with or without an assistive device 5 Patient requires set up or clean up by helper. Patient completes activity by themselves 4 Supervision or touching assist (CGA). [place] provide cues , steadying assist 3 The helper provides less than half the effort to complete the activity 2 The helper provides more than half the effort to complete the activity 1 Dependent. The helper does all the effort to complete an activity 7 Patient refused to complete or attempt activity 9 The patient did not perform the activity before the current illness or injury 88 Not attempted due to Medical conditions or safety concerns Eating (FIM): 6 (Dentures. Pt is able to set up and use regular utensils to cut and feed self.) Eating (QC): 6 (Dentures. Pt is able to set up and use regular utensils to cut and feed self.) Grooming (FIM): 6 (Standing at sink with FWW, pt is able to complete by self. ) Oral Hygiene (QC): 6 (Standing at sink with FWW, pt is able to complete by self. ) Bathing (FIM): 6 (Using shower bench, long handle sponge, grabbar and hand held shower pt is able to complete shower by self.) Bathing Location: L Arm, R Arm, L Upper Leg, R Upper Leg, L Lower Leg ( including foot), R Lower Leg (including foot), Chest, Abdomen, Buttocks, Perineal Area Shower/Bathe Self (QC): 6 (Using shower bench, long handle sponge, grabbar and hand held shower pt is able to complete shower by self.) Upper Body (FIM): 6 (Using FWW, pt retrieves clothing from closet and drawers then is able to don by self. ) Upper Body Dressing (QC): 6 (Using FWW, pt retrieves clothing from closet and drawers then is able to don by self. ) Lower Body Dressing (FIM): 6 (Using FWW, pt retrieves clothing from closet and drawers then is able to don by self. Using AE for lower body dressing to adhere to back precautions.) Lower Body Dressing (QC): 6 (Using FWW, pt retrieves clothing from closet and drawers then is able to don by self. Using AE for lower body dressing to adhere to back precautions.) On/Off Footwear (QC): 6 (Using AE to don/doff footwear.) Toileting (FIM): 6 (Using grabbar and FWW, pt is able to complete by self.) Toileting Hygiene (QC): 6 (Using grabbar and FWW, pt is able to complete by self.) Transfers (B, C, W/C) (FIM): 6 (Using FWW, pt is able to complete by self.) Toilet/Commode Transfer (FIM): 6 (Using grabbar and FWW, pt is able to complete by self.) Toilet Transfer (QC): 6 (Using FWW and grabbar, pt is able to complete by self. ) Shower Transfer(FIM): 6 (Using shower bench, FWW and grabbars pt is able to complete on own.) Other Treatment Pt ambulated with FWW to therapy gym. Completed arm bike 15 min duration at 20 hall resistance to increase strength and activity tolerance for daily functional tasks. After therapy, pt sitting in recliner with call light/phone in reach. All needs met in room. OT Short Term Goals Short Term Goals 1=Demonstrate adherence to instructed precautions during ADL tasks. 2=Patient will verbalize/demonstrate understanding of assistive devices/ modifications for ADL. 3=Patient will improve strength/tolerance for activity to enable patient to perform ADL's. OT Auto Apprentice Mechanic Goals Auto Apprentice Mechanic Goals Time Frame: Apr 29, 2017 Eating (FIM): 6 (met-04/22/2017) Eating (QC): 6 (met-04/22/2017) Groomin (met-04/22/2017) Oral Hygiene (QC): 6 (met-04/22/2017) Bathing(FIM): 6 (met-04/22/2017) Shower/Bathe Self (QC): 6 (met-04/22/2017) Upper Body Dressing(FIM): 6 (met-04/22/2017) Upper Body Dressing (QC): 6 (met-04/22/2017) Lower Body Dressing(FIM): 6 (met-04/22/2017) Lower Body Dressing (QC): 6 (met-04/22/2017) On/Off Footwear (QC): 6 (met-04/22/2017) Toileting(FIM): 6 (met-04/22/2017) Toileting Hygiene (QC): 6 (met-04/22/2017) Toilet/Commode Transfer(FIM): 6 (met-04/22/2017) Toilet/Commode Transfer (QC): 6 (met-04/22/2017) Shower Transfer(FIM): 6 (met-04/22/2017) Additional Goals: 1-Demonstrate ADL Tasks, 2-Verbalize Understanding, 3- ImproveStrength/Vinicius 1=Demonstrate adherence to instructed precautions during ADL tasks. 2=Patient will verbalize/demonstrate understanding of assistive devices/ modifications for ADL. 3=Patient will improve strength/tolerance for activity to enable patient to perform ADL's. OT Education/Plan Problem List/Assessment Pt would benefit from skilled OT to increase her independence in basic self care to allow her to safely return to her home to live alone and independently, with family nearby. Discharge Recommendations Plan/Recommendations: Continue POC Therapy D/C Recommendations: Occupational Therapy Home Care Equpiment Recommendations-D/C: Rails on Tub/Shower, Veterinary Laboratory Diagnostician, Sock Aide, Walker Bag or Basket, Dressing Stick, [place] Treatment Plan/Plan of Care Patient would benefit from OT for education, treatment and training to promote independence in ADL's, mobility, safety and/or upper extremity function for ADL' s. Plan of Care: ADL Retraining, Functional Mobility, Group Exercise/Act as Ind ( education, exercise, activity tolerance, functional activities), UE Funct Exercise/Act, UE Neuromus Re-Ed/Coord Treatment Duration: Apr 29, 2017 Visits Per Week: 10-11 Minutes/Day (M-F): 75-90 Minutes/Day (Sat/[place]): PRN Agreement: Yes Rehab Potential: Good Time/GCodes Start Time: 08:00 Stop Time: 09:00 Total Time Billed (hr/min): 60 Billed Treatment Time 1 visit-ADL 3 (45 min) EX 1 (15 min) SHAWN VALERIO Apr 22, 2017 09:07
--- NOTE | 2017-04-22 11:59 | Physical Therapy Daily Note ---
PT Daily Note-Current Subjective Pt sitting in recliner upon arrival. Pt agreed to PT to [facility] for discharge tomorrow. Mental Status Patient Orientation: Person, Place, Time, Situation Attachments: Other-See Comments (Back Brace) Transfers Functional [place] Measure 0=Not Assessed/NA 4=Minimal Assistance 1=Total Assistance 5=Supervision or Setup 2=Maximal Assistance 6=Modified [place] 3=Moderate Assistance 7=Complete IndependenceIRFPAI Quality Coding Scale 6 Independent with activity with or without an assistive device 5 Patient requires set up or clean up by helper. Patient completes activity by themselves 4 Supervision or touching assist (CGA). [place] provide cues , steadying assist 3 The helper provides less than half the effort to complete the activity 2 The helper provides more than half the effort to complete the activity 1 Dependent. The helper does all the effort to complete an activity 7 Patient refused to complete or attempt activity 9 The patient did not perform the activity before the current illness or injury 88 Not attempted due to Medical conditions or safety concerns Scootin Rollin Roll Left to Right (QC): 6 Supine to/from Sit: 6 Sit to/from Stand: 7 Sit to Lying (QC): 6 Sit to Stand (QC): 6 Chair/Uqw-rd-Uxsdx Xfer(QC): 6 Bed to/from Chair: 6 Pt didn't have car available for transfer but will observe upon discharge. Weight Bearing Weight Bearing Restriction: Full Weight Bearing Location Restriction: LE Bilateral Gait Training Does the Patient Walk?: Yes Distance (FIM): 3=150 ft Distance: 400' Walk 10 feet (QC): 6 Walk 50 ft with 2 Turns(QC): 6 Walk 150 ft (QC): 6 Walking 10ft/uneven surface-QC: 6 Gait Level of Assist: 6 Gait Persons Needed: 1 Gait Assistive Device: FWW Pt walks with normalized gait pattern safely and no LOB. Wheelchair Training Does the Pt Use a Wheelchair?: No Stair Training Stair Training: Handrails/: 2 handrails #of Steps: 12 1 Step (curb) (QC): 6 4 Steps (QC): 6 12 Steps (QC): 6 Stairs: Pattern: Step to Level of Assist: 6 Exercises Seated Therapy Exercises: Ankle pumps, Long arc quads, Hip flexion, Kicking activity NuStep Minutes: 15 NuStep Workload: 5 Treatments Pt transferred from recliner to standing using FWW at Mod I. Pt ambulates using FWW at Mod I. Pt completes stairs, ambulating across varying surface for at least 10', as well as transfers from supine to sit to stand and vice versa. Pt completes NuStep for 15m at Workload 5 with little difficulty. Pt inquired of nurse about having drain removed before discharge. Pt returned to recliner to rest at end of tx with all needs met. Assessment Current Status: Good Progress Pt has improved with mobility, transfers and activity tolerance with decrease in pain level. PT Short Term Goals Short Term Goals Time Frame: Apr 22, 2017 Gait (FIM): 5 PT Cardiology Tech Goals Cardiology Tech Goals PT Cardiology Tech Goals Time Frame: Apr 29, 2017 Transfers (B,C,W/C) (FIM): 7 Sit to Lying (QC): 6 Lying-Sitting on Side/Bed(QC): 6 Sit to Stand (QC): 6 Rollin Roll Left to Right (QC): 6 Chair/Zoe-ys-Pjdwt Xfer(QC): 6 Car Transfer (QC): 6 Does the Patient Walk: Yes Gait (FIM): 6 Gait distance (FIM): 3=150 ft Walk 10 feet (QC): 6 Walk 10ft-Uneven Surface(QC): 6 Walk 50ft with 2 Turns (QC): 6 Walk 150 ft (QC): 6 Gait Level of Assist: 6 Gait Assistive Device: FWW Does the Pt use WC or Scooter?: No Stairs (FIM): 6 # of Steps: 12 1 Step (curb) (QC): 6 4 Steps (QC): 6 12 Steps (QC): 6 Stairs Level Of Assist: 6 Picking up an Object (QC): 88 PT Plan Problem List Problem List: Functional Strength Treatment/Plan Treatment Plan: Continue Plan of Care Treatment Plan: Bed Mobility, Education, Functional Activity Vinicius, Functional Strength, Group Therapy, Gait, Safety, Therapeutic Exercise, Transfers Treatment Duration: Apr 29, 2017 Visits Per Week: 10-14 Minutes/Day (M-F): 60-90 Minutes/Day (Sat/[place]): prn Safety Risks/Education Patient Education: Gait Training, Transfer Techniques, Steps, Correct Positioning, Safety Issues Teaching Recipient: Patient Teaching Methods: Discussion Response to Teaching: Verbalize Understanding Time/GCodes Time In: 900 Time Out: 1000 Total Billed Treatment Time: 60 Total Billed Treatment visit, GT x2 (30m) & FA x2 (30m) FAVIO ADAIR RECOVERY UNIT OPERATOR Apr 22, 2017 11:59
--- NOTE | 2017-04-22 12:55 | PM & R (SOAP) Progress Note ---
Subjective Time Seen by Provider: 08:00 Subjective/Events-last exam Patient was seen in her room this AM and on unit Stll has ANAHY drain in place asked RN to check with orthospine re removal Labs reviewed Patient with Postop anemia and hyponatremia will recheck Labs Patient MOdified Independent for transfers Objective Exam Last Set of Vital Signs Vital Signs Date Time Temp Pulse Resp B/P (MAP) Pulse Ox O2 Delivery O2 Flow Rate FiO2 04/22/17 08:00 Room Air 04/22/17 04:46 98.5 96 16 123/73 98 04/17/17 06:10 2.00 Capillary Refill : I&O Intake and Output 04/22/17 00:00 Intake Total 1760 ml Output Total 90 ml Balance 1670 ml Intake Oral 1650 ml IV Total 110 ml Drainage Total 90 ml # Voids 11 # Bowel Movements 2 General: Alert, Oriented X3, Cooperative, No Acute Distress HEENT: Atraumatic, PERRLA, EOMI, Mucous Memb Moist/[place] Neck: Supple, No JVD Lungs: Clear to Auscultation Heart: Regular Rate Abdomen: Normal Bowel Sounds, Soft Extremities: No Edema Skin: Other (ANAHY drain in place) Neuro: Other (Generalized weakness) Assessment/Plan Assessment S/P fusion Orthospine for Scoliosis with ANAHY drain still in with drainage decreasing Postop anemia improving Postop urinary retention improved Postop ileus resolved Postop constipation resolved Hyponatremia Plan Continue PT/OT/Wound care F/U with DR De Los Santos and Medical management and DR Hinojosa as per their schedule Discharge remains tentatively set for tomorrow Friday04/23/17 to home with family and C Discussed case with SW F/U with ortho-spine re removal of ANAHY drain Current meds reviewed. ISABELLE PHAN MD Apr 22, 2017 12:55
[2017-04-22] MEDS ORDERED: OXYC-471 PO (12:59)
[2017-04-22] MEDS ORDERED: SENN-20 PO (12:59)
[2017-04-22] MEDS ORDERED: Multivitamins/Minerals Therap PO (12:59)
[2017-04-22] MEDS ORDERED: BETH10TA PO (12:59)
--- NOTE | 2017-04-22 14:05 | Physical Therapy Daily Note ---
PT Daily Note-Current Subjective Patient agrees to PT. Patient highly motivated to return to home tomorrow. Pain Numeric Pain Scale: 5-Moderate Pain Location: Medial, Upper, Lower Location Body Site: Back Pain Description: Ache Mental Status Patient Orientation: Normal For Age back brace Transfers Functional [place] Measure 0=Not Assessed/NA 4=Minimal Assistance 1=Total Assistance 5=Supervision or Setup 2=Maximal Assistance 6=Modified [place] 3=Moderate Assistance 7=Complete IndependenceIRFPAI Quality Coding Scale 6 Independent with activity with or without an assistive device 5 Patient requires set up or clean up by helper. Patient completes activity by themselves 4 Supervision or touching assist (CGA). [place] provide cues , steadying assist 3 The helper provides less than half the effort to complete the activity 2 The helper provides more than half the effort to complete the activity 1 Dependent. The helper does all the effort to complete an activity 7 Patient refused to complete or attempt activity 9 The patient did not perform the activity before the current illness or injury 88 Not attempted due to Medical conditions or safety concerns Transfers (B, C, W/C) (FIM): 6 Scootin Rollin Roll Left to Right (QC): 6 Supine to/from Sit: 6 Sit to/from Stand: 6 Sit to Lying (QC): 6 Sit to Stand (QC): 6 Chair/Jhi-cn-Agvsv Xfer(QC): 6 Bed to/from Chair: 6 Car Transfer (QC): 6 Gait Training Does the Patient Walk?: Yes Gait (FIM): 6 Distance (FIM): 3=150 ft Distance: 500' x 1; 1000' x 1 Walk 10 feet (QC): 6 Walk 50 ft with 2 Turns(QC): 6 Walk 150 ft (QC): 6 Walking 10ft/uneven surface-QC: 6 Gait Level of Assist: 6 Gait Assistive Device: FWW Gait training without AD x 50' with noted fatigue and listing to left. Safe and functional ambulation with use of FWW Assessment Gait training on all terrains inside and outside to ensure safe return to home. Patient will dismiss to home tomorrow with home health intervention and family assist PRN. PT Short Term Goals Short Term Goals Time Frame: Apr 22, 2017 Gait (FIM): 5 PT Cone Former Goals Cone Former Goals PT Custodial Goals Time Frame: Apr 29, 2017 Transfers (B,C,W/C) (FIM): 7 Sit to Lying (QC): 6 Lying-Sitting on Side/Bed(QC): 6 Sit to Stand (QC): 6 Rollin Roll Left to Right (QC): 6 Chair/Uxe-eq-Ntmmg Xfer(QC): 6 Car Transfer (QC): 6 Does the Patient Walk: Yes Gait (FIM): 6 Gait distance (FIM): 3=150 ft Walk 10 feet (QC): 6 Walk 10ft-Uneven Surface(QC): 6 Walk 50ft with 2 Turns (QC): 6 Walk 150 ft (QC): 6 Gait Level of Assist: 6 Gait Assistive Device: FWW Does the Pt use WC or Scooter?: No Stairs (FIM): 6 # of Steps: 12 1 Step (curb) (QC): 6 4 Steps (QC): 6 12 Steps (QC): 6 Stairs Level Of Assist: 6 Picking up an Object (QC): 88 PT Plan Treatment/Plan Treatment Plan: Continue Plan of Care Treatment Plan: Bed Mobility, Education, Functional Activity Vinicius, Functional Strength, Group Therapy, Gait, Safety, Therapeutic Exercise, Transfers Treatment Duration: Apr 29, 2017 Visits Per Week: 10-14 Minutes/Day (M-F): 60-90 Minutes/Day (Sat/[place]): prn Time/GCodes Time In: 1331 Time Out: 1401 Total Billed Treatment Time: 30 Total Billed Treatment 1 visit GT x 2 30 min KALEIGH PATRICIA PT Apr 22, 2017 14:05
--- NOTE | 2017-04-22 14:53 | Occupational Ther Daily Note ---
OT Current Status-Daily Note Subjective Pt lying in bed and alert. Pt agreed to therapy. No c/o pain. Mental Status/Objective Patient Orientation: Person, Place, Time, Situation Functional [place] Measure 0=Not Assessed/NA 4=Minimal Assistance 1=Total Assistance 5=Supervision or Setup 2=Maximal Assistance 6=Modified [place] 3=Moderate Assistance 7=Complete [place] Attachments: IV ADL-Treatment Functional [place] Measure 0=Not Assessed/NA 4=Minimal Assistance 1=Total Assistance 5=Supervision or Setup 2=Maximal Assistance 6=Modified [place] 3=Moderate Assistance 7=Complete IndependenceIRFPAI Quality Coding Scale 6 Independent with activity with or without an assistive device 5 Patient requires set up or clean up by helper. Patient completes activity by themselves 4 Supervision or touching assist (CGA). [place] provide cues , steadying assist 3 The helper provides less than half the effort to complete the activity 2 The helper provides more than half the effort to complete the activity 1 Dependent. The helper does all the effort to complete an activity 7 Patient refused to complete or attempt activity 9 The patient did not perform the activity before the current illness or injury 88 Not attempted due to Medical conditions or safety concerns Other Treatment Pt ambulated around hospital and demonstrated good safety techniques with opening doors and maneuvering across uneven surfaces adhering to back precautions and problem solving safety issues. Pt completed B UE activities for strengthening and activity tolerance for daily functional tasks. Pt tolerated well and demonstrated good problem solving and endurance throughout tasks. After therapy, PT took over care of pt. OT Short Term Goals Short Term Goals 1=Demonstrate adherence to instructed precautions during ADL tasks. 2=Patient will verbalize/demonstrate understanding of assistive devices/ modifications for ADL. 3=Patient will improve strength/tolerance for activity to enable patient to perform ADL's. OT Dredge Mate Goals Longterm Goals Time Frame: Apr 29, 2017 Eating (FIM): 6 (met-04/22/2017) Eating (QC): 6 (met-04/22/2017) Groomin (met-04/22/2017) Oral Hygiene (QC): 6 (met-04/22/2017) Bathing(FIM): 6 (met-04/22/2017) Shower/Bathe Self (QC): 6 (met-04/22/2017) Upper Body Dressing(FIM): 6 (met-04/22/2017) Upper Body Dressing (QC): 6 (met-04/22/2017) Lower Body Dressing(FIM): 6 (met-04/22/2017) Lower Body Dressing (QC): 6 (met-04/22/2017) On/Off Footwear (QC): 6 (met-04/22/2017) Toileting(FIM): 6 (met-04/22/2017) Toileting Hygiene (QC): 6 (met-04/22/2017) Toilet/Commode Transfer(FIM): 6 (met-04/22/2017) Toilet/Commode Transfer (QC): 6 (met-04/22/2017) Shower Transfer(FIM): 6 (met-04/22/2017) Additional Goals: 1-Demonstrate ADL Tasks, 2-Verbalize Understanding, 3- ImproveStrength/Vinicius 1=Demonstrate adherence to instructed precautions during ADL tasks. 2=Patient will verbalize/demonstrate understanding of assistive devices/ modifications for ADL. 3=Patient will improve strength/tolerance for activity to enable patient to perform ADL's. OT Education/Plan Problem List/Assessment Pt would benefit from skilled OT to increase her independence in basic self care to allow her to safely return to her home to live alone and independently, with family nearby. Discharge Recommendations Plan/Recommendations: Continue POC Treatment Plan/Plan of Care Patient would benefit from OT for education, treatment and training to promote independence in ADL's, mobility, safety and/or upper extremity function for ADL' s. Plan of Care: ADL Retraining, Functional Mobility, Group Exercise/Act as Ind ( education, exercise, activity tolerance, functional activities), UE Funct Exercise/Act, UE Neuromus Re-Ed/Coord Treatment Duration: Apr 29, 2017 Visits Per Week: 10-11 Minutes/Day (M-F): 75-90 Minutes/Day (Sat/[place]): PRN Agreement: Yes Rehab Potential: Good Time/GCodes Start Time: 13:00 Stop Time: 13:30 Total Time Billed (hr/min): 30 Billed Treatment Time 1 visit-FA 2 (30 min) SHAWN VALERIO Apr 22, 2017 14:53
[2017-04-22 18:06] VITALS: BP 113/68
[2017-04-22] MEDS: LORazepam 0.5 MG (ATIVAN) TABLET PO SCH (21:06)
[2017-04-23] MEDS: oxyCODONE/APAP 5/325MG (PERCOCET 5) TABLET PO PRN ×2 (00:14→03:53)
[2017-04-23 05:54] VITALS: BP 146/81
[2017-04-23 06:18] LABS: MEAN CORPUSCULAR VOLUME 93 FL (80-99); RED BLOOD COUNT 2.83 10^6/uL (4.35-5.85); WHITE BLOOD COUNT 6.2 10^3/uL (4.3-11.0)
[2017-04-23 06:19] LABS: BASOPHILS # (AUTO) 0.1 10^3/uL (0.0-0.1); BASOPHILS % (AUTO) 1 % (0-10); EOSINOPHILS # (AUTO) 0.1 10^3/uL (0.0-0.3); EOSINOPHILS % (AUTO) 2 % (0-10); LYMPHOCYTES # (AUTO) 1.2 X 10^3 (1.0-4.0); LYMPHOCYTES % (AUTO) 19 % (12-44); MEAN CORPUSCULAR HEMOGLOBIN 30 PG (25-34); MEAN CORPUSCULAR HGB CONC 32 G/DL (32-36); MEAN PLATELET VOLUME 7.8 FL (7.4-10.4); MONOCYTES # (AUTO) 0.5 X 10^3 (0.0-1.0); MONOCYTES % (AUTO) 8 % (0-12); NEUTROPHILS # (AUTO) 4.3 X 10^3 (1.8-7.8); NEUTROPHILS % (AUTO) 70 % (42-75); RED CELL DISTRIBUTION WIDTH 15.8 % (10.0-14.5)
[2017-04-23] MEDS: MULTIVIT W/MINERALS TAB (THERAGRAN M) PO SCH (06:20)
[2017-04-23] MEDS: BETHANECHOL 10 MG (URECHOLINE) TAB PO SCH (06:20)
[2017-04-23 06:22] LABS: PLATELET COUNT 733 10^3/uL (130-400)
[2017-04-23 06:42] LABS: ALANINE AMINOTRANSFERASE 21 U/L (0-55); ALBUMIN 3.2 GM/DL (3.2-4.5); ANION GAP 10 MMOL/L (5-14); ASPARTATE AMINO TRANSFERASE 44 U/L (5-34); BILIRUBIN,TOTAL 0.2 MG/DL (0.1-1.0); BLOOD UREA NITROGEN 9 MG/DL (7-18); BUN/CREATININE RATIO 16 (0-20); CALCIUM 9.1 MG/DL (8.5-10.1); CARBON DIOXIDE 23 MMOL/L (21-32); CHLORIDE 101 MMOL/L (98-107); CREATININE SERUM 0.58 MG/DL (0.60-1.30); GFR ESTIMATED > 60; GLUCOSE 104 MG/DL (70-105); POTASSIUM 3.5 MMOL/L (3.6-5.0); SODIUM 134 MMOL/L (135-145); TOTAL PROTEIN 6.6 GM/DL (6.4-8.2)
--- NOTE | 2017-04-23 07:25 | PM & R (SOAP) Progress Note ---
Subjective Time Seen by Provider: 07:00 Subjective/Events-last exam Patient was seen in her room this AM Patient Modified Independent in room Has progressed welll Todays labs reviewed Anemia improving and patient has borderline Hypokalemia -One time dose of K+ ordered.Midline out and ANAHY drain out Objective Exam Last Set of Vital Signs Vital Signs Date Time Temp Pulse Resp B/P (MAP) Pulse Ox O2 Delivery O2 Flow Rate FiO2 04/23/17 05:54 98.0 90 18 146/81 97 Room Air 04/17/17 06:10 2.00 Capillary Refill : I&O Intake and Output 04/23/17 00:00 Intake Total 1300 ml Output Total 55 ml Balance 1245 ml Intake Oral 1300 ml Drainage Total 55 ml # Voids 8 General: Alert, Oriented X3, Cooperative, No Acute Distress HEENT: Atraumatic, PERRLA, EOMI, Mucous Memb Moist/[place] Neck: Supple, No JVD Lungs: Clear to Auscultation Heart: Regular Rate Abdomen: Normal Bowel Sounds, Soft Extremities: No Edema Skin: Other (ANAHY drain in place) Neuro: Other (Generalized weakness) Results Lab Laboratory Tests 04/23/17 05:36: White Blood Count 6.2, Red Blood Count 2.83L, Hemoglobin 8.4L, Hematocrit 26L, Mean Corpuscular Volume 93, Mean Corpuscular Hemoglobin 30, Mean Corpuscular Hemoglobin Concent 32, Red Cell Distribution Width 15.8H, Platelet Count 733H, Mean Platelet Volume 7.8, Neutrophils (%) (Auto) 70, Lymphocytes (%) (Auto) 19, Monocytes (%) (Auto) 8, Eosinophils (%) (Auto) 2, Basophils (%) (Auto) 1, Neutrophils # (Auto) 4.3, Lymphocytes # (Auto) 1.2, Monocytes # (Auto) 0.5, Eosinophils # (Auto) 0.1, Basophils # (Auto) 0.1, Sodium Level 134L, Potassium Level 3.5L, Chloride Level 101, Carbon Dioxide Level 23, Anion Gap 10, Blood Urea Nitrogen 9, Creatinine 0.58L, Estimat Glomerular Filtration Rate > 60, BUN/ Creatinine Ratio 16, Glucose Level 104, Calcium Level 9.1, Total Bilirubin 0.2, Aspartate Amino Transf (AST/SGOT) 44H, Alanine Aminotransferase (ALT/SGPT) 21, Alkaline Phosphatase 94, Total Protein 6.6, Albumin 3.2 Assessment/Plan Assessment S/P fusion Orthospine for Scoliosis with ANAHY drain still in with drainage decreasing Postop anemia improving Postop urinary retention improved Postop ileus resolved Postop constipation resolved Hyponatremia Plan Discharge today to home with family and HHC F/U with orthospine and [facility] Discussed case with SW yesterday Discharge meds to be reviewed by [facility] and one of their providers will issue RXS thru their own Pharmacy See orders. ISABELLE PHAN MD Apr 23, 2017 07:25
[2017-04-23] MEDS ORDERED: KCL 20 MEQ TAB (K-DUR) PO NR (07:30)
[2017-04-23] MEDS: DOCUSATE SODIUM 100 MG (COLACE) CAP PO SCH (08:08)
[2017-04-23] MEDS: amLODIPine 2.5MG (NORVASC) TAB PO SCH (08:08)
[2017-04-23] MEDS: PHENAZOPYRIDINE 100 MG (PYRIDIUM) TABLET PO SCH (08:08)
[2017-04-23] MEDS: FLUoxetine HCL 20 MG (PROzac) CAP PO SCH (08:08)
[2017-04-23] MEDS: SENNA W/DOCUSATE (SENOKOT S) TABLET PO SCH (08:08)
--- NOTE | 2017-04-23 09:57 | Therapy Team Discharge Summary ---
Therapy Discharge Summary Discharge Recommendations Date of Discharge Apr 23, 2017 at 09:09 Therapy D/C Recommendations: Occupational Therapy Home Care Physical Therapy Patient came to rehab with a diagnosis of scoliosis. Upon evaluation patient performed bed mobility and transfers with CGA/Nicole, ambulates 150' with CGA using a rolling walker, and went up and down 1 step using a rolling walker with CGA. Patient has been performing bed mobility and transfer training, balance and endurance training, functional strengthening, gait training, stair training , and education. 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 Now, patient performs bed mobility and transfers with mod I, car transfer mod I, ambulates 400' with a rolling walker with mod I (including 50' with at least 2 turns of 90 degrees and 10' over an uneven surface), and can go up and down 12 steps using 2 handrails with mod I. Patient has been discharged from this facility and will be discharged from PT at this time. PT [facility] Goals Interactive Multimedia Designer Goals PT Interactive Multimedia Designer Goals Time Frame: Apr 29, 2017 Transfers (B,C,W/C) (FIM): 7 Roll Left to Right (QC): 6 Sit to Lying (QC): 6 Lying-Sitting on Side/Bed(QC): 6 Sit to Stand (QC): 6 Chair/Hqy-no-Anpez Xfer(QC): 6 Car Transfer (QC): 6 Does the Patient Walk: Yes Gait (FIM): 6 Gait distance (FIM): 3=150 ft Walk 10 feet (QC): 6 Walk 10ft-Uneven Surface(QC): 6 Walk 50ft with 2 Turns (QC): 6 Walk 150 ft (QC): 6 Gait Level of Assist: 6 Gait Assistive Device: FWW Does the Pt use WC or Scooter?: No Stairs (FIM): 6 # of Steps: 12 1 Step (curb) (QC): 6 4 Steps (QC): 6 12 Steps (QC): 6 Stairs Level Of Assist: 6 Picking up an Object (QC): 88 OT [facility] Goals Interactive Multimedia Designer Goals Time Frame: Apr 29, 2017 Eating (FIM): 6 (met-04/22/2017) Eating (QC): 6 (met-04/22/2017) Oral Hygiene (QC): 6 (met-04/22/2017) Grooming(FIM): 6 (met-04/22/2017) Bathing(FIM): 6 (met-04/22/2017) Shower/Bathe Self (QC): 6 (met04/22/2017) Upper Body Dressing(FIM): 6 (04/22/2017) Upper Body Dressing (QC): 6 (met-04/22/2017) Lower Body Dressing(FIM): 6 (met04/22/2017) Lower Body Dressing (QC): 6 (04/22/2017) On/Off Footwear (QC): 6 (met04/22/2017) Toileting(FIM): 6 (met04/22/2017) Toileting Hygiene (QC): 6 (met04/22/2017) Toilet/Commode Transfer(FIM): 6 (met04/22/2017) Toilet/Commode Transfer (QC): 6 (met04/22/2017) Shower Transfer(FIM): 6 (04/22/2017) Additional Goals: 1-Demonstrate ADL Tasks, 2-Verbalize Understanding, 3- ImproveStrength/Vinicius 1=Demonstrate adherence to instructed precautions during ADL tasks. 2=Patient will verbalize/demonstrate understanding of assistive devices/ modifications for ADL. 3=Patient will improve strength/tolerance for activity to enable patient to perform ADL's. MARIA G ARORA PT Apr 23, 2017 09:57
[2017-04-23 10:25] VITALS: BP 146/81
--- NOTE | 2017-04-23 14:31 | Therapy Team Discharge Summary ---
Therapy Discharge Summary Discharge Recommendations Date of Discharge Apr 23, 2017 at 09:09 Therapy D/C Recommendations: Home w/ Family Support Occupational Therapy Pt. has been seen by occupational therapy to increase overall strength and independence with daily tasks. Pt. has met all goals. Pt. is able to bathe/ dress with Mod I. Uses wheeled walker. Pt. to discharge home with family support. No further OT warranted at this time. PT Snf Goals Snf Goals PT Supervisor Clam Bed Goals Time Frame: Apr 29, 2017 Transfers (B,C,W/C) (FIM): 7 Roll Left to Right (QC): 6 Sit to Lying (QC): 6 Lying-Sitting on Side/Bed(QC): 6 Sit to Stand (QC): 6 Chair/Qkh-gt-Rbhcd Xfer(QC): 6 Car Transfer (QC): 6 Does the Patient Walk: Yes Gait (FIM): 6 Gait distance (FIM): 3=150 ft Walk 10 feet (QC): 6 Walk 10ft-Uneven Surface(QC): 6 Walk 50ft with 2 Turns (QC): 6 Walk 150 ft (QC): 6 Gait Level of Assist: 6 Gait Assistive Device: FWW Does the Pt use WC or Scooter?: No Stairs (FIM): 6 # of Steps: 12 1 Step (curb) (QC): 6 4 Steps (QC): 6 12 Steps (QC): 6 Stairs Level Of Assist: 6 Picking up an Object (QC): 88 OT Supervisor Clam Bed Goals Snf Goals Time Frame: Apr 29, 2017 Eating (FIM): 6 (met-04/22/2017) Eating (QC): 6 (met-04/22/2017) Oral Hygiene (QC): 6 (met-04/22/2017) Grooming(FIM): 6 (met-04/22/2017) Bathing(FIM): 6 (met-04/22/2017) Shower/Bathe Self (QC): 6 (met-04/22/2017) Upper Body Dressing(FIM): 6 (met-04/22/2017) Upper Body Dressing (QC): 6 (met-04/22/2017) Lower Body Dressing(FIM): 6 (met-04/22/2017) Lower Body Dressing (QC): 6 (met-04/22/2017) On/Off Footwear (QC): 6 (met-04/22/2017) Toileting(FIM): 6 (met-04/22/2017) Toileting Hygiene (QC): 6 (met-04/22/2017) Toilet/Commode Transfer(FIM): 6 (met-04/22/2017) Toilet/Commode Transfer (QC): 6 (met-04/22/2017) Shower Transfer(FIM): 6 (met-04/22/2017) Additional Goals: 1-Demonstrate ADL Tasks, 2-Verbalize Understanding, 3- ImproveStrength/Vinicius 1=Demonstrate adherence to instructed precautions during ADL tasks. 2=Patient will verbalize/demonstrate understanding of assistive devices/ modifications for ADL. 3=Patient will improve strength/tolerance for activity to enable patient to perform ADL's. ALTON MARKS OT Apr 23, 2017 14:31
== END 2017-04-23 09:09 | disposition home health service (06) | DRG 560 ==
LOC: ENPENDDIS 04-23 06:00
PROVIDERS: ADMIT Physical Medicine & Rehabilitation; ATTEND Physical Medicine & Rehabilitation
DX: Z47.82 Encounter for orthopedic aftercare following scoliosis surgery (principal); D64.9 Anemia, unspecified; R33.9 Retention of urine, unspecified; K56.7 Ileus, unspecified; E87.1 Hypo-osmolality and hyponatremia; K59.09 Other constipation; I10 Essential (primary) hypertension; G25.0 Essential tremor; Z66 Do not resuscitate
CPT/HCPCS: 36415; 80053; 85025

== ENCOUNTER 2017-08-06 09:10 | Outpatient (RCR) | payer MEDICARE ==
[~2017-08-06 09:10] MED LIST changes: +BETH10TA PO; +Multivitamins/Minerals Therap PO; +OXYC-471 PO; +SENN-20 PO
== END 2017-08-09 | disposition home or self-care (01) ==
PROVIDERS: ATTEND Orthopaedic Surgery Orthopaedic Surgery of the Spine
DX: Z47.89 Encounter for other orthopedic aftercare (principal); Z98.1 Arthrodesis status; M54.5 Low back pain

== ENCOUNTER 2017-08-21 10:00 | Outpatient (RCR) | payer MEDICARE | END 2017-08-21 11:54 | disposition home or self-care (01) | PROVIDERS: ATTEND Orthopaedic Surgery Orthopaedic Surgery of the Spine | DX: Z47.89 Encounter for other orthopedic aftercare (principal); Z98.1 Arthrodesis status; M54.5 Low back pain ==

== ENCOUNTER → 2018-06-02 | Outpatient (CLI) | payer MEDICARE ==
[~2018-06-02] VITALS: Ht 157.5 cm; Wt 44.7 kg
[~2018-06-02] MED LIST changes: +CYAN250010 PO; +FERR159T2 PO; +NAPR-915 PO; -NAPR500T3 PO; +OMEG10005 PO; +TRAM50TA2 PO
== END | disposition home or self-care (01) ==
LOC: PREOP 05:35
PROVIDERS: ATTEND Surgery
DX: Z01.818 Encounter for other preprocedural examination (principal)

== ENCOUNTER 2018-06-09 06:59 | Day surgery (SDC) | payer MEDICARE ==
[~2018-06-09] VITALS: Ht 157.5 cm; Wt 44.7 kg
[2018-06-09 07:10] VITALS: BP 127/79
[2018-06-09] MEDS ORDERED: LACTATED RINGERS 1,000 ML IV STA (07:15)
[2018-06-09] MEDS ORDERED: LACTATED RINGERS 1,000 ML IV ONE (07:23)
[2018-06-09] MEDS ORDERED: MIDAZOLAM 2 MG/2 ML (VERSED) VIAL ONE (07:32)
[2018-06-09] MEDS ORDERED: PROPOFOL INJECTION 50 ML IV ONE (07:32)
--- NOTE | 2018-06-09 09:03 | Progress Note-Pre Operative ---
Pre-Operative Progress Note H&P Reviewed The H&P was reviewed, patient examined and no changes noted. Time Seen by Provider: 08:15 Date H&P Reviewed: Jun 09, 2018 Time H&P Reviewed: 08:16 Pre-Operative Diagnosis: Screening colonoscopy, hx of diarrhea ISABELLE OLSEN DO Jun 09, 2018 09:03
--- NOTE | 2018-06-09 09:42 | Progress Note-Post Operative ---
Post-Operative Progess Note Surgeon (s)/Safe And Vault Mechanic (s) Surgeon ISABELLE OLSEN DO Safe And Vault Mechanic: LAKEISHA Strickland Pre-Operative Diagnosis Screening colonoscopy, hx of diarrhea Post-Operative Diagnosis Diverticula Internal Hemorrhoids Procedure & Operative Findings Date of Procedure 06/09/18 Procedure Performed/Findings colonoscopy Anesthesia Type IV sedation by RN CV[facility] Estimated Blood Loss Estimated blood loss (mL): scant Specimens/Packing Specimens Removed none ISABELLE OLSEN DO Jun 09, 2018 09:42
--- NOTE | 2018-06-09 09:43 | Endoscopy Discharge Instruct ---
Endo Procedure/Findings Findings 1.: Diverticulosis 2.: Internal Hemorrhoids Discharge Instructions - Activity: You might feel a little sleepy until tomorrow. This is due to the medicine you received to relax you. Until tomorrow, you should: NOT drive a car, operate machinery or power tools. NOT drink any alcoholic beverages. NOT make any important decisions or sign importortant papers. Do not return to work until tomorrow, unless otherwise instructed. Resume previous activities tomorrow. Diet: Start by taking liquids. If you tolerate liquids, advance to solid food. make an appointment for 2 weeks Notify Physician - If you experience excessive bleeding, unusual abdominal pain, fever, or chest pain, contact your doctor immediately. Follow-Up: - I have received and understand the above instructions and will call my doctor if I have any further questions. Patient Signature Date Nurse Signature Other (Relationship) ISABELLE OLSEN DO Jun 09, 2018 09:43
--- NOTE | 2018-06-09 09:52 | Anesthesia-General Post-Op ---
MAC Patient Condition Mental Status/LOC: Same as Preop Cardiovascular: Satisfactory Nausea/Vomiting: Absent Respiratory: Satisfactory Pain: Controlled Complications: Absent Post Op Complications Complications None Follow Up Care/Instructions Patient Instructions None needed. Anesthesiology Discharge Order Discharge Order Patient is doing well, no complaints, stable vital signs, no apparent adverse anesthesia problems. No complications reported per nursing. PINKY MARTÍNEZ CRNA Jun 09, 2018 09:52
[2018-06-09 10:00] VITALS: BP 108/62
[2018-06-09 10:25] VITALS: BP 131/75
[2018-06-09 10:33] VITALS: BP 131/75
--- NOTE | 2018-06-10 02:10 | OPERATIVE REPORT ---
DATE OF SERVICE: 06/09/2018 PREOPERATIVE DIAGNOSIS: Screening colonoscopy. POSTOPERATIVE DIAGNOSES: 1. Diverticula. 2. Internal hemorrhoids. PROCEDURE: Colonoscopy. SURGEON: Matias Mckenna DO WAFER BATTER MIXER: Medical student, Zander Jay, level 3. ANESTHESIA: IV sedation by SAW RUNNER. SPECIMENS: None. BLOOD LOSS: None. FLUIDS: Per anesthesia. POSTOPERATIVE CONDITION: Stable. INDICATION FOR PROCEDURE: The patient is a 62-year-old female who needs a screening colonoscopy. FINDINGS: The patient had some diverticula and some internal hemorrhoids, but no other obvious pathology. PROCEDURE NOTE: After informed consent was obtained, the patient was brought to the endoscopy suite and placed in the left lateral decubitus position. She was administered IV sedation by SAW RUNNER who then monitored her vitals the entire time, heart rate, blood pressure, pulse ox and the scope was inserted, pushed all the way about 140 cm, able to get to the cecum, took a picture of appendiceal orifice, noted the ileocecal valve and then slowly withdrew the scope insufflating to look circumferentially at the bronson looking at the cecum, up the ascending colon to the hepatic flexure, then down the transverse colon, the splenic flexure, into the descending colon and then into the sigmoid, saw some diverticula in the sigmoid, took a picture and then down into the rectum, retroflexed in the rectal vault, saw some internal hemorrhoids, took a picture of this and then removed the scope. The patient tolerated the procedure and she was recovered in the endoscopy suite. Job ID: [id number] DocumentID: [id number] Dictated Date: 06/09/2018 17:52:00 Seed Production Field Supervisor Date: 06/10/2018 02:09:52 Dictated By: MATIAS MCKENNA DO
== END 2018-06-09 10:34 | disposition home or self-care (01) ==
LOC: ENDO 06:59
PROVIDERS: ATTEND Surgery
DX: Z12.11 Encounter for screening for malignant neoplasm of colon (principal); K57.30 Diverticulosis of large intestine without perforation or abscess without bleeding; K64.8 Other hemorrhoids

== ENCOUNTER 2020-02-19 13:26 | Emergency (ER) | payer MEDICARE ==
[~2020-02-19] VITALS: Ht 160 cm; Wt 47.0 kg
[~2020-02-19 13:26] MED LIST changes: -AMLO2.5T PO; +AMLO2.5T4 PO; -FLUO20CA25 PO; +FLUO20CA46 PO; -TRAM50TA2 PO; +TRM50T PO
--- OUTSIDE RECORDS SUMMARY | 2020-02-19 13:33 | XMS REPORT ---
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 Name Role Phone GRETEL Evans Unavailable PROBLEMS Type Condition ICD9-CM Code [id number] Code Onset Dates Condition S tatus SNOMED Code Problem Essential hypertension I10 Active 77808113 Problem Depression F32.9 Active 56531235 Problem Vitamin D deficiency E55.9 Active 43027881 Problem Severe scoliosis M41.9 Active 298 001696 Problem Lumbar pain M54.5 Active 06074934 7 Problem Postoperative anemia D64.9 Active 617738575 Problem History of spinal fusion for scoliosis Z98.1 Active 878249289 Problem Tremor of unknown origin R25.1 Activ e 76445261 Problem Anxiety F41.9 Active 59488624 Problem Headache, unspecified headache type R51 Active 63080220 Problem Balance problem R26.89 Active 3876 98309 ALLERGIES Substance Reaction Event Type Date Status Neosporin Unknown Drug Allergy Apr, Active Fosamax Unknown Drug Allergy Apr, Active Penicillin Unknown Drug Allergy Apr, Active Evista 60 Mg Tablet legs swelling Non Drug Allergy Apr, Act jaelyn ENCOUNTERS Encounter Location Date Diagnosis [facility] [address] [facility] [id number] [address] [place] [address] Jan, [facility] [address] [facility] [id number] [address] [place] [address] Dec, Hyponatremia E87.1 [facility] [address] [facility] [id number] [address] [place] [address] Dec, Fever, unspecified fever cau se R50.9 and Acute nasopharyngitis J00 [facility] [address] [facility] [id number] [address] [place] [address] Nov, Hyponatremia E87.1 [facility] [address] [facility] [id number] [address] [place] [address] Oct, Essential hypertension I10 ; Long-term use of high-risk medication Z79.899 and Vitamin D deficiency E55.9 [facility] [address] [facility] [id number] [address] [place] [address] Oct, Essential hypertension I10 ; Depression F32.9 ; Anxiety F41.9 ; Long-term use of high-risk medication Z79.899 and Vitamin D deficiency E55.9 [place] [address] [facility] [id number] [address] [place] [address] Jun, History of spinal fusion for scoliosis Z98.1 ; Postoperative anemia D64.9 ; Essential hypertension I10 ; Depression F32.9 and Anxiety F41.9 [place] [address] [place] [id number] [place] [address] Jun, History of spinal fusion for scoliosis Z98.1 ; Postoperative anemia D64.9 ; Essential hypertension I10 ; Depression F32.9 and Anxiety F41.9 [place] [address] [address] May, History of spinal fusion for scoliosis Z98.1 ; Postoperative anemia D64.9 ; Essential hypertension I10 ; Depression F32.9 and Anxiety F41.9 [place] [id number] [place] [address] May, [facility] [address] [facility] [id number] [address] [place] [address] Apr, Dysuria R30.0 and Acute cyst itis with hematuria N30.01 [facility] [address] [place] [id number] [address] [place] [address] Apr, [facility] [address] [place] [id number] [address] [place] [address] Apr, [place] [address] [place] [id number] [place] [address] Apr, [facility] [address] [id number] [address] [place] [address] Apr, Anxiety F41.9 [facility] [address] [facility] [id number] [address] [place] [address] Feb, Anxiety F41.9 [facility] [address] [facility] [id number] [address] [place] [address] Jan, [facility] [address] [id number] [address] [place] [address] Jan, Severe scoliosis M41.9 [place] [address] [facility] [id number] [address] [place] [address] Jan, [place] [address] [place] [id number] [address] [place] [address] Jan, Tremor of unknown origin R25 .1 ; Headache, unspecified headache type R51 ; Balance problem R26.89 ; Degenerative scoliosis M41.9 ; Pain in right hip M25.551 and Pain in left hip M25.552 [place] [address] [place] [id number] [address] [place] [address] Jan, Tremor of unknown origin R25 .1 ; Headache, unspecified headache type R51 ; Balance problem R26.89 ; Degenerative scoliosis M41.9 ; Pain in right hip M25.551 and Pain in left hip M25.552 [place] [address] [facility] [id number] [address] [place] [address] Jan, [place] [address] [facility] [id number] [address] [place] [address] Oct, Essential hypertension I10 ; Vitamin D deficiency E55.9 ; Depression F32.9 ; Anxiety F41.9 ; Lumbar pain M54.5 and Screening for colon cancer Z12.11 [facility] [address] [facility] [id number] [address] [place] [address] Aug, [place] [address] [facility] [id number] [address] [place] [address] Dec, [facility] [address] [facility] [id number] [address] [place] [address] Dec, Hammertoe M20.40 [facility] [address] [facility] [id number] [address] [place] [address] Oct, [facility] [address] [place] [id number] [place] [address] Oct, Essential hypertension I10 ; Vitamin D deficiency E55.9 ; Depression F32.9 ; Anxiety F41.9 ; Lumbar pain M54.5 and Hammer toe of left foot M20.42 [facility] [address] [place] [id number] [address] [place] [address] Sep, Acute upper respiratory infe ction, unspecified J06.9 and Other viral agents as the cause of diseases classified elsewhere B97.89 [facility] [address] [id number] [address] [place] [address] [id number] Apr, Dental examination V72.2 [facility] [address] [place] [id number] Apr, Dental examination V72.2 [facility] [id number] [place] [address] [id number] Apr, Dental examination V72.2 [facility] [id number] [place] [address] [id number] Apr, Dental examination V72.2 [facility] [address] [id number] [address] [place] [address] [id number] March, Dental examination V72.2 [facility] [address] [place] [id number] [address] [place] [phone] March, [facility] [address] [place] [id number] [address] [place] [phone] Feb, [facility] [address] [place] [id number] [address] [place] [phone] Feb, [facility] [address] [id number] [address] [place] [address], [place] [address] Oct, [facility] [address] [id number] [address] [place] [address], [place] [address] Oct, [facility] [address] [id number] [address] [place] [address], [place] [address] Sep, [facility] [address] [id number] [address] [place] [address], [place] [address] Sep, [facility] [address] [id number] [address] [place] [address], [place] [address] Sep, [facility] [address] [id number] [address] [place] [address], [place] [address] Sep, [facility] [address] [id number] [address] [place] [address], [place] [address] Aug, [facility] [address] [id number] [address] [place] [address], [place] [address] Aug, [facility] [address] [id number] [address] [place] [address], [place] [address] Jul, [facility] [address] [id number] [address] [place] [address], [place] [address] Jul, [facility] [address] [id number] [address] [place] [address], [place] [address] Jun, [facility] [address] [id number] [address] [place] [address], [place] [address] Jun, [facility] [address] [id number] [address] [place] [address], [place] [address] May, [facility] [address] [id number] [address] [place] [address], [place] [address] May, [facility] [address] [id number] [address] [place] [address], [place] [address] May, [facility] [address] [id number] [address] [place] [address], [place] [address] May, [facility] [address] [id number] [address] [place] [address], [place] [address] May, [facility] [address] [id number] [address] [place] [address], [place] [address] May, [facility] [address] [id number] [address] [place] [address], [place] [address] Apr, [facility] [address] [id number] [address] [place] [address], [place] [address] Apr, [facility] [address] [id number] [address] [place] [address], [place] [address] March, [facility] [address] [id number] [address] [place] [address], [place] [address] March, [facility] [address] [id number] [address] [place] [address], [place] [address] March, [facility] [address] [id number] [address] [place] [address], [place] [address] March, [facility] [address] [id number] [address] [place] [address], [place] [address] Jan, [facility] [address] [id number] [address] [place] [address], [place] [address] Jan, [facility] [address] [id number] [address] [place] [address], [place] [address] Dec, [facility] [address] [id number] [address] [place] [address], [place] [address] Dec, [facility] [address] [id number] [address] [place] [address], [place] [address] Nov, [facility] [address] [id number] [address] [place] [address], [place] [address] Nov, [facility] [address] [id number] [address] [place] [address], [place] [address] Nov, [facility] [address] [id number] [address] [place] [address], [place] [address] Nov, [facility] [address] [id number] [address] [place] [address], [place] [address] Nov, [facility] [address] [id number] [address] [place] [address], [place] [address] Nov, [facility] [address] [id number] [address] [place] [address], [place] [address] Oct, [facility] [address] [id number] [address] [place] [address], [place] [address] Oct, [facility] [address] [id number] [address] [place] [address], [place] [address] Oct, [facility] [address] [id number] [address] [place] [address], [place] [address] Oct, [facility] [address] [id number] [address] [place] [address], [place] [address] Sep, [facility] [address] [id number] [address] [place] [address], [place] [address] Sep, [facility] [address] [id number] [address] [place] [phone] Sep, [facility] [address] [id number] [address] [place] [address] Sep, [facility] [address] [id number] [address] [place] [address] Aug, [facility] [address] [id number] [address] [place] [address], [place] [address] Aug, [facility] [address] [id number] [address] [place] [address], [place] [address] Aug, [facility] [address] [id number] [address] [place] [phone] Aug, [facility] [address] [id number] [address] [place] [address], [place] [address] Jul, [facility] [address] [id number] [address] [place] [address], [place] [address] Jun, [facility] [address] [id number] [address] [place] [address], [place] [address] Jun, [facility] [address] [id number] [address] [place] [address], [place] [address] Jun, [facility] [address] [id number] [address] [place] [address], [place] [address] Jun, [facility] [address] [id number] [address] [place] [address], [place] [address] Jun, [facility] [address] [id number] [address] [place] [address], [place] [address] May, [facility] [address] [id number] [address] [place] [address], [place] [address] Apr, [facility] [address] [id number] [address] [place] [address], [place] [address] Apr, [facility] [address] [id number] [address] [place] [address], [place] [address] March, [facility] [address] [id number] [address] [place] [address], [place] [address] March, [facility] [address] [id number] [address] [place] [address], [place] [address] March, [facility] [address] [id number] [address] [place] [address], [place] [address] March, [facility] [address] [id number] [address] [place] [address], [place] [address] March, [facility] [address] [id number] [address] [place] [address], [place] [address] Feb, [facility] [address] [id number] [address] [place] [address], [place] [address] Feb, [facility] [address] [id number] [facility] [place] [address] 27 Jan, 2013 [facility] [address] [id number] [address] [place] [address], [place] [address] 25 Jan, 2013 [facility] [address] [id number] [facility] [place] [address] 21 Jan, 2013 [facility] [address] [id number] [address] [place] [address], [place] [address] 15 Jan, 2013 [facility] [address] [id number] [address] [place] [address], [place] [address] 15 Jan, 2013 [facility] [address] [id number] [address] [place] [address], [place] [address] 14 Jan, 2013 [facility] [address] [id number] [address] [place] [address], [place] [address] 14 Jan, 2013 [facility] [address] [id number] [address] [place] [address], [place] [address] 13 Jan, 2013 [facility] [address] [id number] [address] [place] [address], [place] [address] 26 Dec, 2012 [facility] [address] [id number] [address] [place] [address], [place] [address] 18 Dec, 2012 [facility] [address] [id number] [address] [place] [address], [place] [address] 15 Dec, 2012 [facility] [address] [id number] [address] [place] [address], [place] [address] 15 Dec, 2012 [facility] [address] [id number] [address] [place] [address], [place] [address] 14 Dec, 2012 [facility] [address] [id number] [address] [place] [address], [place] [address] 13 Dec, 2012 [facility] [address] [id number] [address] [place] [address], [place] [address] 12 Dec, 2012 [facility] [address] [id number] [address] [place] [address] Dec, [facility] [address] [facility] [id number] [address] [place] [address] Nov, [facility] [address] [facility] [id number] [address] [place] [address] Nov, [facility] [address] [facility] [id number] [address] [place] [address] Nov, [facility] [address] [facility] [id number] [address] [place] [address] Nov, IMMUNIZATIONS No Known Immunizations SOCIAL HISTORY Never Assessed REASON FOR VISIT was int the hospital from 04/11 to 04/25 for back surgery. pt had a catheter. no w having frequent urination with good results, dysuria. this has been going on f or 5 days...this am it was worse. [email or web address] PLAN OF CARE Activity Details Follow Up prn Reason: VITAL SIGNS Height 64 in 2017-05-04 Weight 106.2 lbs 2017-05-04 Temperature 98.6 degrees Fahrenheit 2017-05-04 Heart Rate 100 bpm 2017-05-04 Respiratory Rate 20 2017-05-04 BMI 18.23 kg/m2 2017-05-04 Blood pressure systolic 116 mmHg 2017-05-04 Blood pressure diastolic 64 mmHg 2017-05-04 MEDICATIONS Medication Instructions Dosage Frequency Start Date End Date Duration S tatus Pyridium 200 MG Orally Three times a day 1 tablet after meals 8h Apr, Apr, 4 days Active Ciprofloxacin HCl 500 MG Orally Twice a day 1 tablet 12h Apr, May, 7 days Active Bethanechol Chloride 10 mg Orally 4 times a day 1 tablet bef ore meals and at bedtime 6h 30 days Active Senna-Time S 8.6-50 MG Orally twice a day 1 tablet in the evening 12h Active Hydrocodone-Acetaminophen 5-325 MG Orally 3 times a day 1 or 2 t ablet as needed 8h Apr, 14 days Active Fluoxetine HCl 20 MG orally once daily TAKE ONE capsule 24h 30 Active Amlodipine Besylate 2.5 MG oral daily 1 tablet 24h 3 0 Active Calcium 600 mg 1 Capsule by Oral route 2 times per day 2 Jun, Active Vitamin D 1000 UNIT Orally 2 times a day 1 tablet 12h Active Lorazepam 0.5 MG Orally Once a day 1 tablet as needed 24h prn Active RESULTS Name Result Date Reference Range UA LONG DIP (IN HOUSE) 2017-05-04 Lot # [id number] Exp date 2017 04 30 Clarity cloudy Color yellow Odor strong GLU negative MIRTA negative KET negative SG 1.020 BLO 2+ pH 6.0 Protein 2+ URO 0.2 NIT positive CHIQUITA 3+ Lot # [id number] Exp date 2017 12 CULTURE, URINE 2017-05-04 Urine Culture, Routine Final report Result 1 Citrobacter freundii Antimicrobial Susceptibility PROCEDURES Procedure Date Ordered Result Body Site URINALYSIS, AUTO, W/O SCOPE May 04, 2017 LAB NOT BILLED BY [facility] May 04, 2017 FQ VISIT ESTABLISHED PATIENT May 04, 2017 INSTRUCTIONS MEDICATIONS ADMINISTERED No Known Medications MEDICAL (GENERAL) HISTORY Type Description Date Medical History Hypertension Medical History Chronic liver disease Medical History Osteoporosis Medical History Derpression Medical History Anxiety Medical History Generalized anxiety disorder Medical History Unspecified osteoporosis Medical History Depressive disorder, not elsewhere class ified Medical History Nondependent tobacco use disorder Medical History Anxiety state, unspecified Medical History Scoliosis (and kyphoscoliosis), idiopath ic Medical History Essential hypertension, benign Medical History Lumbago Surgical History Otolaryngologic surgery jaw resection, o verbite 1979 Surgical History Arthroscopyof the left knee 2002 Surgical History Back Surgery -spinal fusion - Dr. De Los Santos 04/11/2017 Surgical History left Knee replacment 11/2017 Hospitalization History Surgery(s) only
--- OUTSIDE RECORDS SUMMARY | 2020-02-19 13:33 | XMS REPORT ---
Author Author [facility] Organization [facility] Address [address] [address] Care Team Providers Care Service Girl Name Role Phone Piter Dupree V Unavailable ENEIDA BEJARANO Unavailable Unavailable MADL, ESTELLA Unavailable Unavailable AURELIA SPIVEY Unavailable KALYAN WIN Unavailable Unavailable [facility] Unavailable [phone] ANGE PARNELL Unavailable MADL, ESTELLA Unavailable MADL, ESTELLA Unavailable MADL, ESTELLA Unavailable MADL, ESTELLA Unavailable KAREN DE LOS SANTOS Unavailable MADL, ESTELLA Unavailable MADL, ESTELLA Unavailable MADL, ESTELLA Unavailable MARLA MITCHELL Unavailable MADL, ESTELLA Unavailable MADL, ESTELLA Unavailable EATONPEPE LucianoELE Unavailable EATON, JOLANTA Unavailable UMA JOLANTA Unavailable KAREN DE LOS SANTOS MD Unavailable Unavailable ANGE PARNELL MD Unavailable Unavailable KAREN DE LOS SANTOS MD Unavailable Unavailable ISABELLE ZULUAGA MD Unavailable Unavailable EMILIE BUCK, ISABELLE Joel Unavailable Unavailable HUSEYIN SOLIMAN APRN Unavailable Unavailable JOLANTA Hendrix Unavailable MADL, ESTELLA L WRAPPER CASHIER Unavailable Unavailable PEPE HendrixELE Unavailable MADL, ESTELLA Unavailable JOSE HENDERSON Unavailable Piter Dupree V Unavailable Elie Vidal Unavailable Piter Dupree V PCP Piter Dupree V Attphys Migration, Doctor Unavailable Unavailable Migration, Doctor Unavailable Unavailable KYRA BROUSSARD MD Unavailable Unavailable Migration, Doctor Unavailable Unavailable MADL, ESTELLA Unavailable Piter Dupree Unavailable MADL, ESTELLA Unavailable MADL, ESTELLA Unavailable MADL, ESTELLA Unavailable DIGNA SANCHEZ Unavailable JOLANTA Hendrix Unavailable Unavailable JOSE HENDERSON Unavailable Unavailable Piter Vinson Unavailable Unavailable Piter Vinson PCP Piter Vinson Attphys MADL, ESTELLA Unavailable MADL, ESTELLA Unavailable DIGNA SANCHEZ Unavailable Unavailable Unavailable Migration, Doctor Unavailable Unavailable Migration, Doctor Unavailable Unavailable Migration, Doctor Unavailable Unavailable Migration, Doctor Unavailable Unavailable DIGNA SANCHEZ Unavailable Migration, Doctor Unavailable Unavailable Migration, Doctor Unavailable Unavailable Allergies Normalized Allergy Reported Date of Reaction(s) Care Provider Facility Allergy Type classification allergen Allergy Onset Allergy (5 Unclassified No Known 04-30-2013 - no information no name Not Available sources.) Allergies (88331) Translations: [ NKMA] DA (20 Unclassified No Known Drug 05-16-2012 - no information ANGE Not Available sources.) Allergies MD PARMJIT (25075) DANIEL (20 Unclassified polymyxin B 04-03-2017 - no information no name [facility] Via sources.) [facility] (48730) Medications Current Medications Medication Ingredient Drug Dose Dates Status Sig Sig Care Class(es) (Normalized) (Original) Provid er acetaminoph acetaminoph Opioid Active no Hydrocodone- no en 325 mg / en / Agonist information Acetaminophe name HYDROcodone HYDROcodone n 7.5-325 MG (no bitartrate Translation Orally every phone) 7.5 mg oral s: [ 6 hrs 1 tablet (1 Hydrocodone tablet as source.) -Acetaminop needed 6h hen 7.5-325 Active MG] aspirin 81 aspirin Nonsteroida Active no Aspirin 81 no mg oral Translation l information 81 MG Orally name strip (2 s: [ Anti-inflam Once a day 1 (no sources.) Aspirin 81 [facility] tablet 24h phone) 81 MG] Active azithromyci Azithromyci Macrolide 500 mg 09-07-20 Active take 2 Azithromycin no n 250 mg n Antimicrobi 13 tablets by 250 mg 2 nam e oral tablet Translation al mouth once Tablet by (no (1 source.) s: [ daily, then Oral route phone) Azithromyci take 1 on day 1 n 250 mg] tablet by then take 1 mouth, then daily for 4 take 1 days Aug, tablet by 2012 Active mouth once daily docusate docusate no 100 mg Active no Colace 100 no sodium 100 Translation information information MG Orally nam e mg oral s: [ Colace Once a day 1 (no capsule (2 100 MG] capsule as phone) sources.) needed 24h Active 100 mg Active no Colace no name inform 100 MG (no ation Orally phone) Once a day 1 capsule as needed 24h Active nitrofurant NITROFURANT Nitrofuran 100 mg 10-02-20 Active no Macrobid 100 no oin, OIN, Antibacteri 18 information MG Orally n spencer macrocrysta MACROCRYSTA al every 12 hrs (no ls 25 mg / LS / 1 capsule phone) nitrofurant Nitrofurant with food oin, oin, 12h Sep, monohydrate Monohydrate 2017 75 mg oral Translation Active capsule (1 s: [ source.) Macrobid 100 MG] traMADol traMADol Opioid 50 mg 05-14-20 Active no Tramadol HCl no hydrochlori Translation Agonist 18 information 50 mg Oral ly name de 50 mg s: [ every 6 hrs (no oral tablet Tramadol 1 tablet as phone) (8 HCl 50 MG, needed 6h sources.) Tramadol Active HCl 50 mg] no Vitamin C no 500 mg Active no Vitamin C no information 500 mg information information 500 mg name (3 Translation Orally Once (no sources.) s: [ a day 1 phone) Vitamin C tablet 24h 500 mg] 90 days Active 500 mg Active no no no name inform informat (no ation ion phone) no Vitamin D no 1000 10-27-20 Active no Vitamin D no information 1000 UNIT information [IU] 18 information 1000 UNIT name (2 Translation Orally 2 (no sources.) s: [ times a day phone) Vitamin D 1 tablet 12h 1000 UNIT, 18 Oct, 2018 Vitamin D 90 days 1000 UNIT] Active 1000 [IU] Active no Vitamin no name inform D 1000 (no ation UNIT phone) Orally 2 times a day 1 tablet 12h Active no Vitamin D3 no 199905-27-20 Active take 2 Vitamin D 3 no information 1,000 unit information [IU] 14 capsules by 1,00 0 unit 2 name (1 source.) mouth once capsule by (no daily Oral route 1 phone) time per day May, Active Completed/Discontinued Medications Medication Ingredient Drug Dose Dates Status Sig Sig Care Class(es) (Normalized) (Original) Provid er calcium Calcium Vitamin D 11-23-19 no take 1 Calcium (no carbonate Carbonate / 19 informat tablet by Carbonate/Vi phone) 2500 mg / Cholecalcif ion mouth once tamin D3 cholecalcif patrick daily [Calcium patrick 800 1,000 + D3 unt oral Caplet] 1 tablet (10 TAB PO Daily sources.) November 23, 2018 Active no Docosahexae no 11-23-19 no no [place]-3/Dha/ (n o information noate / information 19 informat information Epa/ Fish Oil phone) (10 Eicosapenta ion [Fish Oil sources.) enoate / 1,000 Mg Vitamin E Softgel] 2 EACH PO Daily November 23, 2018 Active 11-23-2018 no no [place]-3/ (no information inform Dha/Epa/ phone) ation Fish Oil 2 EACH PO Daily November 23, 2018 Active 11-23-2018 Active no [place]-3/ no name inform Dha/Epa/ (no ation Fish Oil phone) Active 2 EACH Oral Daily November 23, 2018 7:58am no Ferrous no 159 mg Complete take 1 Ferrous (no information Sulfate, information d tablet by Sulfate, phone) (1 source.) Dried mouth once Dried (Iron) (Iron) 159 daily, then 159 Mg Mg take 1 Tablet.er Tablet.er tablet by 159 Mg ORAL mouth Daily no Multivit no 11-23-19 no take 1 Multivit (no information With information 19 informat tablet by With phone) (8 Calcium,Iro ion mouth once Calcium,Iro n sources.) n,Min daily ,Min [Multiple Vitamins For Women] 1 TAB PO Daily November 23, 2018 Active 11-23-2018 no take 1 Multivit (no information tablet With phone) by Calcium, mouth Iron,Min once 1 TAB PO daily Daily November 23, 2018 Active 11-23-2018 Active take 1 Multivit no name tablet With (no by Calcium, phone) mouth Iron,Min once Active 1 daily TAB Oral Daily November 23, 2018 7:58am no Multivit no 11-23-19 no take 1 Multivit (no information With information 19 informat tablet by With phone) (2 Calcium,Iro ion mouth once Calcium,Iro n sources.) n,Min daily ,Min [Multiple [Multiple Vitamins Vitamins For For Women] Women] 1 TAB PO Daily November 23, 2018 Active no Multivitami no 04-22-20 Complete no Multivitamin Isabelle E information ns/Minerals information 17 - d information s/ Minerals Zuluaga (1 source.) Therap 1 Ea 06-02-20 Therap 1 Ea (no Tablet, 1 18 Tablet, 1 Ea phone) Ea Oral Oral Daily@0700 04/22/17 Discontinued no [place]-3 no 1000 Complete take 1 [place]-3 (no information Fatty Acids information mg d capsule by Fatt y Acids phone) (1 source.) (Clear[place]-3) mouth once (Clear[place]-3) 1,000 Mg daily, then 1,000 Mg Capsule take 1 Capsule capsule by 1,000 Mg mouth ORAL Daily no vitamin B Vitamin B12 2500 Complete take 1 Cyanocobalam (no information 12 ug d tablet by in (Vitamin ph one) (1 source.) mouth once B-12) daily, then (Vitamin take 1 B12) 2,500 tablet by Mcg Tablet mouth 2,500 Mcg ORAL Daily vitamin b6 Vitamin B6 no 100 mg 11-23-19 no take 100 mg Pyridoxine (no 100 mg oral information 19 informat by mouth [Vitamin p sukhdev) tablet (10 ion once daily B-6] 100 MG sources.) PO Daily November 23, 2018 Active Problems Active Problems Problem Normalized Date of Normalized Normalized Provider Fac ility Classification Problem(s) Problem Problem Problem Sta tus Onset/Resoluti Duration on Acute Acute Episodic Active KAREN IPSEN , Not Avail able posthemorrhagi posthemorrhagi (08113) c anemia (7 c anemia sources.) NEGATED Aftercare Chronic Active LEONIDES Not Availabl e no following JAMESON , DO (25816) information joint (18 sources.) replacement surgery Deficiency and Anemia, Episodic Active ISABELLE ZULUAGA , Not Available other anemia unspecified (41138) (20 sources.) Translations: [ - Postoperative anemia D64.9, - Postoperative anemia D64.9] Other Arthrodesis Episodic Active KAREN IPSEN , Not Av ailable connective status (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) tissue disease Translations: (20 sources.) [ - History of spinal fusion for scoliosis Z98.1, - History of spinal fusion for scoliosis Z98.1] Other Care involving Episodic Active ANGE Not Juliette ilable aftercare (7 other physical MD PARMJIT (80350) sources.) therapy Other Constipation, Episodic Active HUSEYIN SOLIMAN Not Av ailable gastrointestin unspecified (01401) al disorders (7 sources.) Residual Do not Episodic Active ISABELLE ZULUAGA , Not Avail able codes; resuscitate (57476) unclassified (5 sources.) Other Encounter for Episodic Active ISABELLE ZULUAGA , Not Available aftercare (5 orthopedic MD (04586) sources.) aftercare following scoliosis surgery Other Encounter for Episodic Active KAREN DE LOS SANTOS , Not Available aftercare (15 other MD (81650) sources.) orthopedic aftercare Immunizations Encounter for Episodic Active KAREN VELIZEN , Not Available and screening screening for MD (95246) for infectious other disease (2 bacterial sources.) diseases Other Essential Chronic Active ISABELLE ZULUAGA , 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 (5 sources.) Other Hypotension, Episodic Active KARENASCENCION VELIZEN , Not A vailable circulatory unspecified (42518) disease (7 sources.) Other Other Episodic Active ISABELLE ZULUAGA , Not Avail able gastrointestin constipation (96851) al disorders (3 sources.) Other acquired Other forms of Chronic Active KAREN IPSEN , Not Available deformities (4 scoliosis, (68589) sources.) thoracolumbar region NEGATED Other Episodic Active no name [facility] no hemorrhoids [facility] information (2 Hospital - sources.) [place] (19555) Other Pain in left Episodic Active ESTELLA MADL Not Juliette ilable non-traumatic hip (12050) joint Translations: disorders (20 [ - Pain in sources.) left hip M25.552, - Pain in left hip M25.552] NEGATED Presence of Chronic Active LEONIDES Not Availa ble no left JAMESON , DO (36541) information artificial (18 sources.) knee joint Spondylosis; Spinal Chronic Active KAREN IPSEN , Not Av ailable intervertebral stenosis, (67563) disc lumbar region disorders; Translations: other back [ SPONDYLOSIS problems (25 W/O MYELOPATHY sources.) OR RADICULOPA, OTHER INTERVERTEBRAL DISC DEGENERATION, , SPONDYLOSIS W/O MYELOPATHY OR RADICULOPA, SPONDYLOSIS W/O MYELOPATHY OR RADICULOPA, OTHER 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, SPONDYLS W/O MYELOPATHY OR RADICULOPATHY] Syncope (20 Syncope and Episodic Active KAREN IPSEN , Not Available sources.) collapse (27050) Translations: [ - Vasovagal syncope R55, - Vasovagal syncope R55] Other acquired Thoracogenic Chronic Active KAREN IPSEN , Not Available deformities (7 scoliosis, (31938) sources.) thoracic region Other nervous Tremor, Episodic Active ESTELLA MADL Not Juliette ilable system unspecified (11708) disorders (20 Translations: sources.) [ - Tremor of unknown origin R25.1, - Tremor of unknown origin R25.1] Unclassified no information no information Active AURELIA SPIVEY [facility] [place] (1 source.) [address] [facility] (39500) Past or Other Problems Problem Normalized Date of Normalized Normalized Provider [facility] Classification Problem(s) Problem Problem Problem Sta tus Onset/Resoluti Duration on Abdominal pain Abdominal Episodic Completed Loli HEREDIA Available (4 sources.) pain, other (90582) specified site External cause Accident no information no information KYRA PEREZ Not Available codes: caused by (62453) Natural/enviro excessive heat nment (2 due to weather sources.) conditions Other and Benign 06-20-2016 - Episodic Completed no name Not Available unspecified neoplasm, (16520) benign unspecified neoplasm (1 site source.) Other skin Epidermal cyst 06-20-2016 - Episodic Completed no nam e Not Available disorders (1 (38302) source.) Other injuries Heat Episodic Completed KYRA AARTI , Not Available and conditions exhaustion, (06065) due to unspecified external causes (2 sources.) External cause Home accidents no information no information Eri BROUSSARD , Not Available codes: Place (61540) of occurrence (2 sources.) Unclassified Other cervical no information no information KAREN DE LOS SANTOS , Not Available (1 source.) disc (60612) degeneration at C5-C6 level External cause Other external no information no information Eri BROUSSARD , Not Available codes: cause status (41807) Unspecified (2 sources.) Other skin Other 06-20-2016 - Episodic Completed no name No t Available disorders (1 seborrheic (00437) source.) keratosis Other Pain in right 06-20-2016 - Episodic Completed no name Not Available connective hand (87010) tissue disease (1 source.) Disorders of Pure no information no information ESTELLA SOTOMAYOR [facility] lipid hypercholester [address] [facility] metabolism (3 olemia, of [facility] sources.) unspecified [place] (03001) Translations: [ - Hypercholester emia E78.00] Procedures Procedure Normalized Procedure Procedure Result Performer Facility Date 06-09-2018 Administration of no information ISABELLE OLSEN [facility] anesthesia [place] ([id number]) 05-27-2014 Blood count complete no information no name (no nikita ne) [facility] auto&auto difrntl wbc [facility] (64742) 02-03-2018 Collection venous no information no name (no phone) [facility] blood venipuncture [facility] (41547) 05-27-2014 Collection venous no information no name (no phone) [facility] blood venipuncture [facility] (77179) 05-27-2014 Comprehensive no information no name (no phone) [facility] (33755) 05-05-2018 Ecg routine ecg no information no name (no phone) [facility] w/least 12 lds trcg [facility] w/o i&r [place] (47183) 05-05-2018 EKG, TRACING no information no name (no phone) Com [facility] (IN-HOUSE) [facility] (08585) 10-15-2018 [facility] visit, estab pt no information no name (no nikita ne) [facility] (01594) 10-02-2018 [facility] visit, estab pt no information no name (no nikita ne) [facility] (39766) 08-03-2018 [facility] visit, estab pt no information no name (no nikita ne) [facility] (42632) 05-05-2018 [facility] visit, estab pt no information no name (no nikita ne) [facility] (88014) 02-03-2018 [facility] visit, estab pt no information no name (no nikita ne) [facility] (68865) 12-12-2017 [facility] visit, estab pt no information no name (no nikita ne) [facility] (08993) FUSION 2-4 L JT W no information no name (no phone) Not Avai lable (77841) AUTOL SUB, POST APPR P FUSION 2-7 T JT W no information no name (no phone) Not Avai lable (80119) AUTOL SUB, POST APPR P FUSION LUM JT W INTBD no information no name (no phone) Not Available (93224) FUS DEV, ANT APPR FUSION LUMSAC JT W no information no name (no phone) Not Juliette ilable (59011) AUTOL SUB, POST APPR FUSION LUMSAC JT W no information no name (no phone) Not Juliette ilable (55359) INTBD FUS DEV, ANT AP FUSION OF no information no name (no phone) Not Availab le (51739) SACROCOCCYGEAL JOINT WITH AUTO FUSION T-LUM JT W no information no name (no phone) Not Avai lable (24455) AUTOL SUB, POST APPR P 12-12-2017 Influenza assay no information no name (no phone) [facility] (95698) 10-02-2018 LAB NOT BILLED BY no information no name (no phone) [facility] (76059) 05-05-2018 LAB NOT BILLED BY no information no name (no phone) [facility] (19310) 02-03-2018 LAB NOT BILLED BY no information no name (no phone) [facility] (06432) Periodic comprehensive no information no name (no phone) Not Available (06747) preventive medicine reevaluation and management of an individual including an age and gender appropriate history, examination, counseling/anticipator y guidance/risk factor reduc 12-16-2019 Screening mammography no information no name (no ph one) [facility] - ([id number]) (Work Phone: 12-16-2019 ) - 12-16-2019 12-01-2018 Screening mammography no information no name (no ph one) [facility] - ([id number]) (Work Phone: 12-01-2018 ) - 12-01-2018 10-02-2018 Urnls dip stick/tablet no information no name (no p sukhdev) [facility] rgnt auto w/o [facility] (85827) 11-23-2018 no information no information Elie Vidal [facility] - ([id number]) (Work Phone: 11-23-2018 ) - 11-23-2018 Immunizations Normalized Immunization Date Notes Care Provider Facili ty Immunization influenza, 08-31-2019 no information no name [facility] (44883) quadrivalent, preservative free influenza, 08-06-2018 no information no name [facility] (34902) quadrivalent, preservative free tetanus and 08-18-2001 no information no name [facility] diphtheria toxoids[facility] (62009) adsorbed, preservative free, for adult use (5 Lf of tetanus toxoid and 2 Lf of diphtheria toxoid) tetanus toxoid, 09-28-2019 no information no name [facility] reduced diphtheria [facility] (95770) toxoid, and acellular pertussis vaccine, adsorbed Results Test Name Value Interpretation Reference Range Date Time Fa cility (Normalized) (Normalized) (Medline Reference) ua long dip (in house) on null Glucose Test no information (no code) [facility] strip mass conc [facility] () [facility] (12485) Protein mass no information (no code) 0 - 20 mg/dL [facility] (U) [facility] (07812) UA LONG DIP (IN 2019-06-09 (no code) [facility] (17665) UA LONG DIP (IN cloudy (no code) [facility] (57921) UA LONG DIP (IN yellow (no code) [facility] (08228) UA LONG DIP (IN none (no code) [facility] (27089) UA LONG DIP (IN [id number] (no code) [facility] (09885) UA LONG DIP (IN 1+ (no code) [facility] (91833) UA LONG DIP (IN 7.0 (no code) [facility] (09635) UA LONG DIP (IN 1.010 (no code) [facility] (29309) UA LONG DIP (IN 0.2 (no code) [facility] (20319) UA LONG DIP (IN no information (no code) [facility] (84847) UA LONG DIP (IN 66688U (no code) [facility] (37219) UA LONG DIP (IN Oct 2018 (no code) [facility] (30685) influenza a & b (in house) on null INFLUENZA A & B no information (no code) [facility] ([facility]SE) [facility] (01506) INFLUENZA A & B no information (no code) [facility] ([facility]) [facility] (91378) INFLUENZA A & B [id number] (no code) [facility] (IN HOUSE) [facility] (37515) INFLUENZA A & B 2020-03-23 (no code) [facility] (IN HOUSE) [facility] (57955) No panel information on null Microscopic no information (no code) Health observation [facility] stain.thin prep [facility] Nom (Cvx) (49510) Sex Assigned at (ADM.CQPHI) Does (no code) [facility] (58791) Restrictions?: N~(ADM.FORMS1) Admission Consent Signed?: Y~(ADM.FORMS2) Authorization and Agreements Signed?: Y~(ADM.FORMS3) Who Signed A & A?: pt~(ADM.FORMS5) Can [facility] from the [facility] [place] with you regarding PP?: SIG~(ADM.FORMS6) Was pt offered Portal and external access instructions?: Y~(ADM.GENDER) Gender ID: F~(ADM.GENIDV) Gender ID Verified: [id number]~(ADM.GR ADD1) 2G Address:: same~(ADM.GRNAME ) 2G Name: Daniel Do Demetrius~(ADM.GRSS) 2G Soc Sec Num: [id number]~(ADM .HIPAA6) If Yes, Date Signed:: [id number]~(ADM.HI PAA8) Was new HIPAA NPP signed before this visit?: Y~(ADM.PTRGT4) Was Patient Rights Document Given?: DEC~(ADM.PTRGT5) Was Visitation Rights Document Given at Reg?: DEC~(ADM.SEX) Sex Assigned at : F no information no information (no code) [facility] (60613) No panel information on 2019-12-16 no information [facility] (no code) [facility] ~ [facility] ([address] ~ [place] [address] ~ ~ Mammography Report ~ Signed ~ ~Patient: Sherly Do MR#: [id number] ~: 1955 ~Age/Sex: 64 / F ADM Date: 12/16/19 ~Loc: . DIS Date: ~= = = = = = = = = = = = = = = = = = = = = = = = = = = = = = = = = = = = = = = = ~= = = = = = = = = = = = = = = = = = = ~Date of Exam: 12/16/19 ~Ordering Provider: Piter Dupree MD ~ ~Type of Exam(s): MM screening venus BI w/praneeth ~Reason for Exam(s): screening mammo ~ ~ ~#[id number] - MM SCREENING VENUS BI W/PRANEETH ~ ~BILATERAL DIGITAL SCREENING MAMMOGRAM 3D/2D WITH CAD: 12/16/2019 ~ ~CLINICAL: Z12.31-Encounter for screening mammogram. ~ ~Digital Breast Tomosynthesis was performed. ~ Current study was also evaluated with a Computer Aided Detection (CAD) system. ~ ~ ~Comparison is made to exams dated: 12/01/2018 mammogram and 07/26/2016 mammogram ~ ~- [facility]. ~The tissue of both breasts is extremely dense, which lowers the sensitivity of ~ ~mammography. ~ ~No significant masses, calcifications, or other findings are seen in either ~breast. ~ ~IMPRESSION: NEGATIVE ~There is no mammographic evidence of malignancy. A 1 year screening mammogram is ~ ~ recommended. ~The patient was notified of the results. ~ ~ ~Dr. Joseph Milan ~rd/malena:2019 11:22:58 ~ ~Summer Sessions Director(s): RT Clarita(R)(M), [facility] ~letter sent: Normal/Benign Category 1/2 ~BI-RADS: 1 Negative No panel information on 2019-07-27 Albumin 4.3 g/dL (N) 3.4 - 5.4 g/dL [facility] [Mass/Vol] [facility] () Albumin 4.3 g/dL (N) 3.4 - 5.4 g/dL [facility] [Mass/Vol] [facility] () Albumin/Globulin 1.3 {ratio} (N) 1 - 2.5 {ratio} [facility] [Mass ratio] [facility] (97758) Albumin/Globulin 1.3 {ratio} (N) 1 - 2.5 {ratio} [facility] [Mass ratio] [facility] (59449) ALP [Catalytic 72 U/L (N) 44 - 147 U/L [facility] activity/Vol] [facility] (99535) ALP [Catalytic 72 U/L (N) 44 - 147 U/L [facility] Health activity/Vol] [facility] (96053) ALT [Catalytic 9 U/L (N) 4 - 40 U/L Community ealth activity/Vol] [facility] (13565) ALT [Catalytic 9 U/L (N) 4 - 40 U/L Community ealt activity/Vol] [facility] (85677) AST [Catalytic 27 U/L (N) 10 - 34 U/L [facility] activity/Vol] [facility] (72505) AST [Catalytic 27 U/L (N) 10 - 34 U/L [facility] Health activity/Vol] [facility] (97088) Bilirubin 0.3 mg/dL (N) 0.1 - 1.2 mg/dL [facility] [Mass/Vol] [facility] (63100) Bilirubin 0.3 mg/dL (N) 0.1 - 1.2 mg/dL [facility] [Mass/Vol] [facility] (70692) Calcidiol 53 ng/mL (N) 20 - 50 ng/mL [facility] [Mass/Vol] [facility] (58233) Calcidiol 53 ng/mL (N) 20 - 50 ng/mL [facility] [Mass/Vol] [facility] (27290) Calcium 9.9 mg/dL (N) 8.5 - 10.2 mg/dL [facility] [Mass/Vol] [facility] (18371) Calcium 9.9 mg/dL (N) 8.5 - 10.2 mg/dL [facility] [Mass/Vol] [facility] (81271) Chloride 96 mmol/L (L) 95 - 106 mmol/L [facility] [Moles/Vol] [facility] (91509) Chloride 96 mmol/L (L) 95 - 106 mmol/L [facility] [Moles/Vol] [facility] (77732) Cholesterol 198 mg/dL (N) 180 - 200 mg/dL [facility] [Mass/Vol] [facility] (99390) Cholesterol 198 mg/dL (N) 180 - 200 mg/dL [facility] [Mass/Vol] [facility] (50386) Cholesterol in 84 mg/dL (N) [facility] HDL [Mass/Vol] [facility] (39731) Cholesterol in 84 mg/dL (N) [facility] HDL [Mass/Vol] [facility] (18984) Cholesterol in 97 mg/dL (N) 0 - 100 mg/dL [facility] LDL [Mass/Vol] [facility] (75269) Cholesterol in 97 mg/dL (N) 0 - 100 mg/dL [facility] LDL [Mass/Vol] [facility] (70804) Cholesterol non 114 mg/dL (N) [facility] HDL [Mass/Vol] [facility] (72185) Cholesterol non 114 mg/dL (N) [facility] HDL [Mass/Vol] [facility] (61173) Cholesterol.tota 2.4 {ratio} (N) [facility] He[facility]th l/Cholesterol in [facility] HDL [Mass ratio] [facility] (88045) Cholesterol.tota 2.4 {ratio} (N) [facility] HDL [Mass ratio] [facility] (72707) CO2 [Moles/Vol] 28 mmol/L (N) 23 - 29 mmol/L [facility] (72666) CO2 [Moles/Vol] 28 mmol/L (N) 23 - 29 mmol/L [facility] (48762) Creatinine 0.63 mg/dL (N) [facility] [Mass/Vol] [facility] (79898) Creatinine 0.63 mg/dL (N) [facility] [Mass/Vol] [facility] (26353) GFR/1.73 sq M 111 (N) 90 - 120 [facility] He alth predicted among mL/min/{1.73_m2} mL/min/{1.73_m2} [facility] MDRD [facility] (S/P/Bld) [Vol (36716) rate/Area] GFR/1.73 sq M 111 (N) 90 - 120 [facility] He alth predicted among mL/min/{1.73_m2} mL/min/{1.73_m2} [facility] MDRD [facility] (S/P/Bld) [Vol (09950) rate/Area] GFR/1.73 sq 96 (N) 90 - 120 Community [facility] M.predicted MDRD mL/min/{1.73_m2} mL/min/{1.73_m2} [facility] (S/P/Bld) [Vol [facility] rate/Area] (35459) GFR/1.73 sq 96 (N) 90 - 120 Community [facility] th M.predicted MDRD mL/min/{1.73_m2} mL/min/{1.73_m2} [facility] (S/P/Bld) [Vol [facility] rate/Area] (32282) Globulin (S) 3.4 g/dL (N) 2 - 3.5 g/dL [facility] [Mass/Vol] [facility] (15616) Globulin (S) 3.4 g/dL (N) 2 - 3.5 g/dL [facility] [Mass/Vol] [facility] (50015) Glucose 84 mg/dL (N) 60 - 125 mg/dL [facility] [Mass/Vol] [facility] (56571) Glucose 84 mg/dL (N) 60 - 125 mg/dL [facility] [Mass/Vol] [facility] (51951) Potassium 4.7 mmol/L (N) 3.7 - 5.2 mmol/L [facility] [Moles/Vol] [facility] (19360) Potassium 4.7 mmol/L (N) 3.7 - 5.2 mmol/L [facility] [Moles/Vol] [facility] (19057) Protein 7.7 g/dL (N) 6.4 - 8.3 g/dL [facility] [Mass/Vol] [facility] (87480) Protein 7.7 g/dL (N) 6.4 - 8.3 g/dL [facility] [Mass/Vol] [facility] (82966) Sodium 131 mmol/L (L) 135 - 145 mmol/L [facility] [Moles/Vol] [facility] (26927) Sodium 131 mmol/L (L) 135 - 145 mmol/L [facility] [Moles/Vol] [facility] (54790) Triglyceride 78 mg/dL (N) 0 - 150 mg/dL [facility] [Mass/Vol] [facility] (66725) Triglyceride 78 mg/dL (N) 0 - 150 mg/dL [facility] [Mass/Vol] [facility] (87880) Urea nitrogen 8 mg/dL (N) 7 - 20 mg/dL [facility] [Mass/Vol] [facility] (04501) Urea nitrogen 8 mg/dL (N) 7 - 20 mg/dL [facility] [Mass/Vol] [facility] (17060) Urea NOT APPLICABLE (no code) [facility] nitrogen/Creatin Center [facility] ine [Mass ratio] [facility] (22426) Urea NOT APPLICABLE (no code) [facility] nitrogen/Creatin Center [facility] [Mass ratio] [facility] (68532) No panel information on 2019-04-13 1-Hydroxymidazol no information (no code) [facility] am (U) [facility] [Mass/Vol] [facility] (42758) 1-Hydroxymidazol no information (no code) [facility] am (U) [facility] [Mass/Vol] [facility] (21315) 7-Aminoclonazepa no information (no code) [facility] m (U) [Mass/Vol] [facility] (49087) 7-Aminoclonazepa no information (no code) [facility] m (U) [Mass/Vol] [facility] (80654) Alpha no information (no code) [facility] hydroxyalprazola [facility] m (U) [Mass/Vol] [facility] (73061) Alpha no information (no code) [facility] hydroxyalprazola [facility] (U) [Mass/Vol] [facility] (08447) Alpha no information (no code) [facility] hydroxytriazolam [facility] (U) [Mass/Vol] [facility] (18167) Alpha no information (no code) [facility] hydroxytriazolam [facility] (U) [Mass/Vol] [facility] (96801) Amphetamines Ql no information (no code) [facility] th (U) [facility] (51455) Amphetamines Ql no information (no code) [facility] (U) [facility] (68094) Benzodiazepines no information (A) [facility] Ql (U) [facility] (04683) Benzodiazepines no information (A) [facility] Ql (U) [facility] (02220) Benzoylecgonine no information (no code) [facility] Ql (U) [facility] (44768) Benzoylecgonine no information (no code) [facility] Ql (U) [facility] (76629) COMMENT no information (no code) [facility]alt [facility] (79682) COMMENT no information (no code) [facility] (37004) Creatinine (U) 11.2 mg/dL (L) [facility] [Mass/Vol] [facility] (65772) Creatinine (U) 11.2 mg/dL (L) [facility] [Mass/Vol] [facility] (03649) Hydroxyethylflur no information (no code) [facility] azepam (U) [facility] [Mass/Vol] [facility] (15605) Hydroxyethylflur no information (no code) [facility] azepam (U) [facility] [Mass/Vol] [facility] (35496) Lorazepam (U) 50 (H) [facility] [Mass/Vol] [facility] (55623) Lorazepam (U) 50 (H) [facility] [Mass/Vol] [facility] (27300) medMATCH CONSISTENT (no code) Community Healt Aminoclonazepam [facility] (43089) medMATCH CONSISTENT (no code) [facility] Amin[facility] (54145) medMATCH CONSISTENT (no code) [facility] Amphetamines [facility] (99111) medMATCH CONSISTENT (no code) [facility] A[facility] (02490) medMATCH aOH CONSISTENT (no code) [facility] alprazolam [facility] (19664) medMATCH aOH CONSISTENT (no code) [facility] alprazolam [facility] (54359) medMATCH aOH CONSISTENT (no code) [facility] midazolam [facility] (80063) medMATCH aOH CONSISTENT (no code) [facility] midazolam [facility] (77257) medMATCH aOH CONSISTENT (no code) [facility] triazolam [facility] (29123) medMATCH aOH CONSISTENT (no code) [facility] triazolam [facility] (17567) medMATCH Cocaine CONSISTENT (no code) [facility] Metab Center [facility] (36248) medMATCH Cocaine CONSISTENT (no code) [facility] (91141) medMATCH INCONSISTENT (no code) [facility] Desmethyltram [facility] (90472) medMATCH CONSISTENT (no code) [facility] Lorazepam [facility] (61930) medMATCH CONSISTENT (no code) [facility] Lorazepam [facility] (27898) medMATCH CONSISTENT (no code) [facility] Marijuana Metab [facility] (84680) medMATCH CONSISTENT (no code) [facility] Marijuana Metab [facility] (88305) medMATCH CONSISTENT (no code) [facility] Nordiazepam [facility] (99150) medMATCH CONSISTENT (no code) [facility] Nordiazepam [facility] (76432) medMATCH [place],Et CONSISTENT (no code) [facility] flurazepam Center [facility] (53031) medMATCH [place],Et CONSISTENT (no code) [facility] flurazepam [facility] (54197) medMATCH Opiates CONSISTENT (no code) Community [facility] lth [facility] (80767) medMATCH Opiates CONSISTENT (no code) Community Hea [facility] (48420) medMATCH CONSISTENT (no code) Community [facility]alt Oxazepam [facility] (69953) medMATCH CONSISTENT (no code) [facility]alt Oxazepam [facility] (54943) medMATCH CONSISTENT (no code) Community [facility]alt Oxycodone [facility] (46931) medMATCH CONSISTENT (no code) [facility] Oxycodone [facility] (01074) medMATCH CONSISTENT (no code) [facility]alt Temazepam [facility] (88292) medMATCH CONSISTENT (no code) [facility] Temazepam [facility] (56143) medMATCH INCONSISTENT (no code) [facility]alt Tramadol [facility] (23596) Nordiazepam (U) no information (no code) Community [facility] [Mass/Vol] [facility] (12833) Nordiazepam (U) no information (no code) Community [facility] [Mass/Vol] [facility] (90636) Nortramadol (U) no information (no code) Community [facility] [Mass/Vol] [facility] (55904) Opiates Ql (U) no information (no code) [facility] (09527) Opiates Ql (U) no information (no code) [facility] (68689) Oxazepam (U) no information (no code) [facility] h [Mass/Vol] [facility] (19601) Oxazepam (U) no information (no code) [facility] h [Mass/Vol] [facility] (43379) Oxidants Ql (U) no information (no code) [facility] (84272) Oxidants Ql (U) no information (no code) Community [facility] (01898) Oxycodone Ql (U) no information (no code) Community [facility] (44270) Oxycodone Ql (U) no information (no code) [facility] (07876) pH (U) 7.09 [pH] (no code) 4.6 - 8 [pH] [facility] (47900) pH (U) 7.09 [pH] (no code) 4.6 - 8 [pH] [facility] (80252) Prescribed Drug Tramadol (no code) [facility] (27140) Prescribed Drug Tramadol (no code) [facility] (84324) Prescribed Drug Ativan(TM) (no code) [facility] (56316) Prescribed Drug Ativan(TM) (no code) [facility] (56674) Specific gravity 1.003 (no code) [facility] (U) [[facility] (77002) Specific gravity 1.003 (no code) [facility] (U) [[facility]] [facility] (89525) Temazepam (U) no information (no code) [facility] [Mass/Vol] [facility] (55723) Temazepam (U) no information (no code) [facility] [Mass/Vol] [facility] (38499) Tetrahydrocannab no information (no code) [facility] inol Ql (U) [facility] (17384) Tetrahydrocannab no information (no code) [facility] inol Ql (U) [facility] (33582) Tramadol (U) no information (no code) [facility] [Mass/Vol] [facility] (00825) No panel information on 2018-12-01 no information [facility] (no code) [facility] ~ [address] ([address] ~ [place] [address] ~ ~ Mammography Report ~ Signed ~ ~Patient: Mitesh Dowendy Fernando MR#: [id number] ~: 1955 ~Age/Sex: 63 / F ADM Date: 12/01/18 ~Loc: [facility] DIS Date: ~= = = = = = = = = = = = = = = = = = = = = = = = = = = = = = = = = = = = = = = = ~= = = = = = = = = = = = = = = = = = = ~Date of Exam: 12/01/18 ~Ordering Provider: Piter Dupree MD ~ ~Type of Exam(s): MM screening venus BI w/praneeth ~Reason for Exam(s): mammo screening ~ ~ ~#[id number] - MM SCREENING VENUS BI W/PRANEETH ~BILATERAL DIGITAL SCREENING MAMMOGRAM 3D/2D WITH CAD: 12/01/2018 ~CLINICAL: Z12.31-Encounter for screening mammogram. ~ ~Digital Breast Tomosynthesis was performed. ~ Current study was also evaluated with a Computer Aided Detection (CAD) system. ~ ~ ~Comparison is made to exams dated: 07/26/2016 [facility] ~ ~ 06/08/2015 mammogram, 05/31/2015 mammogram, and 05/06/2014 mammogram - [address] ~ ~ Donnie Álvarez. ~ ~The tissue of both breasts is extremely dense, which lowers the sensitivity of ~ ~mammography. ~No significant masses, calcifications, or other findings are seen in either ~breast. ~ ~IMPRESSION: NEGATIVE ~There is no mammographic evidence of malignancy. A 1 year screening mammogram is ~ ~ recommended. ~The patient was notified of the results. ~ ~ ~Dr. Joseph Milan ~[facility]/:12/01/2018 15:29:52 ~ ~Summer Sessions Director: Seema Trivedi RT(R)(M), [facility] ~letter sent: Normal/Benign Category 1/2 ~BI-RADS: 1 Negative No panel information on 2018-11-24 no information [facility] - Main (no code) [facility] ~ [facility] ([address] ~ [place] [address] ~ ~ Operative Note ~ Signed ~ ~Patient: Sherly Do MR#: [id number] ~: 1955 ~Age/Sex: 63 / F ADM Date: 11/23/18 ~Loc: [facility] DIS Date: 11/23/18 ~= = = = = = = = = = = = = = = = = = = = = = = = = = = = = = = = = = = = = = = = ~= = = = = = = = = = = = = = = = = = = ~ ~DATE OF SERVICE ~11/23/2018 ~ ~SURGEON ~Eile Vidal MD ~ ~PREOPERATIVE DIAGNOSIS ~Personal history for adenomatous colon polyps. ~ ~POSTOPERATIVE DIAGNOSIS ~Personal history for adenomatous colon polyps, minimal sigmoid diverticulosis. ~ ~PROCEDURE ~Colonoscopy ~ ~ANESTHESIA ~TIVA ~ ~BRIEF HISTORY/INDICATI ONS ~Mrs. Do is a 63-year-old female who has a prior history for adenomatous ~colon polyps in the past. She presents today to undergo a followup colonoscopy. ~ It has been greater than five years since her last endoscopic evaluation of her ~colon. For completeness please refer to notes included in the patient's chart. ~ ~FINDINGS ~Upon colonoscopy, the patient was found to have a few scattered diverticula ~within the sigmoid colon region. There was no evidence for angiodysplastic ~lesions, polyps or ashley malignancies. ~ ~DESCRIPTION OF PROCEDURE ~After informed consent was obtained, patient was brought to the endoscopy suite ~and placed on the table in left lateral decubitus position. The patient ~subsequently underwent total intravenous anesthesia by the nurse solar technician per ~my request. Formal time-out was then completed. Next a digital rectal ~examination was performed. Normal sphincter tone. No rectal masses were ~appreciated. An Olympus colonoscope was inserted in the anus and advanced ~through the lumen of the colon under direct visualization at all times until the ~cecum was ascertained. Triangulation of the taenia coli, ileocecal valve and ~appendiceal lumen were all visualized. Scope was then slowly withdrawn again ~maintaining visualization of the lumen at all times. The entire colon was ~without evidence for angiodysplastic lesions, polyps or ashley malignancies. The ~patient was found to have few scattered diverticula within the sigmoid colon ~region. Once the colonoscope was withdrawn back to the rectal vault, a ~J-maneuver was then performed. No worrisome perianal pathology was noted. ~Scope was allowed to straighten and withdrawn from the anal verge. The patient ~tolerated the procedure without difficulty and was sent back to the preop area ~in stable condition. ~ ~It has been more than 10 years since the patient was found to have an ~adenomatous colon polyp. Upon her followup colonoscopy five years ago, the ~patient was not found to have any additional adenomatous colon polyps. I do ~feel therefore that one can return her back to the general guidelines and repeat ~a colonoscopy at a 10-year interval unless new specific indication should arise ~in the future. No panel information on 2018-11-23 no information [facility] (no code) [facility] ~ [address] [place] [address] ([id number]) [address] ~ [place] [address] ~ ~ Anesthesia Preoperative Report ~ Signed ~ ~Patient: Sherly Do MR#: [id number] ~: 1955 ~Age/Sex: 63 / F ADM Date: 11/23/18 ~Loc: [facility] DIS Date: ~= = = = = = = = = = = = = = = = = = = = = = = = = = = = = = = = = = = = = = = = ~= = = = = = = = = = = = = = = = = = = ~ ~ ~ ~Anesthesia Preoperative Record ~ ~- Date and Time ~Date: 11/23/18 ~Preoperative Diagnosis: ~Personal hx adenomatous polyps ~ ~Proposed Procedure: ~Colonoscopy ~NPO Since Date: 11/23/18 ~NPO Since Time: 00:00 ~Allergies/Adver se Reactions: ~ Allergies ~ ~Allergy/AdvReac Type Severity Reaction Status Date / Time ~No Known Allergies Allergy Unverified 04/30/13 15:43 ~ ~ ~ ~- Vital Signs ~Vital Signs: ~ ~ ~Temperature 98.0 F 11/23/18 07:17 ~Pulse Rate 50 L 11/23/18 07:17 ~Respiratory Rate 15 11/23/18 07:17 ~Blood Pressure 114/68 11/23/18 07:17 ~Pulse Oximetry 99 11/23/18 07:17 ~ ~ ~Height and Weight: ~ ~ ~Height 1.63 m ~Weight 57.3 kg ~Body Mass Index 21.7 ~ ~ ~ ~- Medications ~Inpatient Medications: ~ Current Medications ~ ~Lactated Ringer's (Lactated Ringers) 1,000 mls @ 50 mls/hr IV .Q20H MADDISON ~Lidocaine HCl (Xylocaine-Mpf 1% Vial) 1 mg ID O ONE ~ Stop: 11/23/18 14:44 ~Sodium Chloride (Iv Flush) 10 ml IV PRN PRN ~ PRN Reason: Flushing ~Sodium Phosphate (Fleet Enema) 1 enema WI PRN PRN ~ ~ ~Home Medications: ~ Home Medications ~ ~Medication Instructions Recorded Confirmed Type ~No known Home medications [No home 11/20/18 11/20/18 History ~meds] ~ ~ ~Is Patient on Beta Shey?: No ~ ~- Medical History ~Neuro/Musculosk eletal: Reports: Back Problems (SIATIC PAIN) ~Other History: Reports: Blood Transfusions ~ ~- Surgical History ~HEENT Surgeries: Reports: Other (POLPYS REMOVED FROM VOCAL CORDS) ~GI Surgery/Treatmen ts: Reports: Colonoscopy ~Anesthesia Reactions: None ~Hx Family Anesthesia Reaction: No ~History of Motion Sickness: No ~Medical/Surgica l History Reviewed by Anesthesia: Yes ~ ~- Social History ~Have You Smoked in the Last 30 Days?: No ~Current Tobacco Status: Never used ~Do you currently use E-cigarettes or vaping products?: No ~Second Hand Exposure: No ~Substance Use Type: does not use ~Alcohol Intake: current ~Alcohol Intake Frequency: a few times a month ~ ~- Physical Exam ~Respiratory Exam: Present: lungs clear ~Cardiovascular Exam: Present: regular rate and rhythm ~ ~- Airway Assessment ~Mallampati Score: II ~TMD: 3 Fingerbreadths ~Neck Extension: fair ~Teeth: normal dentition ~Overall Assessment: no airway concerns ~ ~- ASA ~ASA Score: 1 ~ ~- Plan ~Anesthesia: General TIVA ~Anesthetic Plan Discussed with Physician?: Yes ~ ~- Discussion ~Discussion: ~Discussed risks/options/al ternatives of anesthesia and questions answered. ~Patient consents. Nursing pain assessment noted. ~ ~Present for Discussion: spouse ~Attestation Statement: ~Prior to the delivery of any anesthetic medication, I examined the patient, ~developed the plan, obtained the patient's consent and discussed the risk and ~benefits of the procedure with the patient/guardian . ~ ~ ~- Additional Information ~Seen by Anesthesia: Yes ~ ~ ~Documented By: Linwood Whiting DIRECTOR HRIS 11/23/18 0733 ~Signed By: <Electronically signed by Linwood Whiting DIRECTOR HRIS> 11/23/18 0735 ~ ~ no information [facility] (no code) [facility] ~ [facility] ([id number]) [address] ~ [place] [address] ~ ~ Anesthesia Postoperative Note ~ Signed ~ ~Patient: Sherly Do MR#: [id number] ~: 1955 ~Age/Sex: 63 / F ADM Date: 11/23/18 ~Loc: [facility] Date: 11/23/18 ~= = = = = = = = = = = = = = = = = = = = = = = = = = = = = = = = = = = = = = = = ~= = = = = = = = = = = = = = = = = = = ~ ~ ~ ~- Date and Time ~Date: 11/23/18 ~Time: 09:35 ~ ~- Status ~Patient Participated in Evaluation: Patient Participated by Phone ~Vital Signs: ~ ~ ~Temperature 97.1 F 11/23/18 09:32 ~Pulse Rate 44 L 11/23/18 09:38 ~Respiratory Rate 20 11/23/18 09:32 ~Blood Pressure 135/62 11/23/18 09:32 ~Pulse Oximetry 100 11/23/18 09:32 ~ ~ ~Respiratory Function: Airway Patent ~Cardiovascular Function: Regular Pulse ~EKG: Sinus Rhythm ~Mental Status: Alert and Oriented ~Pain Intensity: 0 ~Hydration: IV Infusing ~Nausea/Vomiting : None ~Complications During Recover: ~None Apparent ~ ~ ~- Follow-Up Instructions ~Instructions: ~Per Surgeon ~ ~ ~ ~Documented By: Linwood Whiting DIRECTOR HRIS 11/23/18 1014 ~Signed By: <Electronically signed by Linwood Whiting DIRECTOR HRIS> 11/23/18 1015 ~ ~ No panel information on 2018-10-02 Bacteria SEE NOTE (A) [facility] (U) [facility] ([id number]) BLO 1+ (no code) [facility] (14004) Exp date no information (no code) [facility] ([id number]) KET 2019-06-09~cloud (no code) Formerly [facility], [facility] y~yellow~none~[facility]~negative~ [facility] negative (50109) Lot # [id number] (no code) [facility] (62894) pH (Bld) 7.0 [pH] (no code) 7.38 - 7.42 [pH] [facility] (64371) Protein (U) no information (no code) 0 - 20 mg/dL [facility] [Mass/Vol] [facility] (41787) SG 1.010 (no code) [facility] (64385) URO 0.2 (no code) [facility] (46240) No panel information on 2018-05-05 Albumin mass 5.0 g/dL (N) 3.4 - 5.4 g/dL no inform ation conc Albumin/Globulin 1.5 (N) no informatio n mass ratio ALP enzyme 92 U/L (N) 44 - 147 U/L no informati on act/vol ALT enzyme 14 U/L (N) 4 - 40 U/L no information act/vol AST enzyme 37 U/L (H) 10 - 34 U/L no informatio n act/vol Basophils Auto 0.022 10*3/uL (N) 0 - 0.3 10*3/uL no i nformation #/vol (Bld) Basophils/100 0.4 % (N) 0.5 - 1 % no informati on WBC Auto (Bld) Bilirubin mass 0.5 mg/dL (N) 0.1 - 1.2 mg/dL no inf ormation conc Calcidiol mass 54 ng/mL (N) 20 - 50 ng/mL Not Avai lable conc (96863) Calcium mass 10.5 mg/dL (H) 8.5 - 10.2 mg/dL no info rmation conc Chloride molar 96 mmol/L (L) 95 - 106 mmol/L no inf ormation conc Cholesterol in 90 mg/dL (N) Not Available HDL mass conc (55309) Cholesterol in 96 (N) Not Available LDL mass conc (64978) Cholesterol mass 204 mg/dL (H) 180 - 200 mg/dL Not Available conc (86595) Cholesterol non 114 (N) Not Available HDL mass conc (13867) Cholesterol.tota 2.3 (N) Not Available l/Cholesterol in (25130) HDL mass ratio CO2 molar conc 25 mmol/L (N) 23 - 29 mmol/L no info rmation Creatinine mass 0.64 mg/dL (N) no information conc Eosinophils Auto 0.011 10*3/uL (L) 0.05 - 0.5 no info rmation #/vol (Bld) 10*3/uL Eosinophils/100 0.2 % (N) 1 - 4 % no informa tion WBC Auto (Bld) Erythrocyte 13.0 % (N) 11.6 - 14.6 % no informat ion distribution width Auto Ratio (RBC) GFR/1.73 sq M 112 (N) 90 - 120 no informati on predicted among mL/min/{1.73_m2} mL/min/{1.73_m2} blacks MDRD vol rate/area (S/P/Bld) GFR/1.73 sq 96 (N) 90 - 120 no information M.predicted MDRD mL/min/{1.73_m2} mL/min/{1.73_m2} vol rate/area Globulin 3.4 (N) no information Calculated mass conc (S) Glucose mass 101 mg/dL (H) 60 - 125 mg/dL no inform ation conc Hematocrit Auto 40.4 % (N) 36.1 - 50.3 % no info rmation Volume Fraction (Bld) Hemoglobin mass 13.3 g/dL (N) 12.1 - 17.2 g/dL no i nformation conc (Bld) Lymphocytes Auto 1.258 10*3/uL (N) 0.9 - 2.9 no info rmation #/vol (Bld) 10*3/uL Lymphocytes/100 23.3 % (N) 20 - 40 % no informa tion WBC Auto (Bld) Magnesium mass 1.9 mg/dL (N) 1.7 - 2.2 mg/dL Not Av ailable conc (44728) MCH Auto Entitic 27.4 pg (N) 27 - 31 pg no inform ation mass (RBC) MCHC Auto mass 32.9 g/dL (N) 32 - 36 g/dL no inform ation conc (RBC) MCV Auto Entitic 83.3 fL (N) 80 - 100 fL no infor mation volume (RBC) Monocytes Auto 0.308 10*3/uL (N) 0.3 - 0.9 no inform ation #/vol (Bld) 10*3/uL Monocytes/100 5.7 % (N) 2 - 8 % no informati on WBC Auto (Bld) Neutrophils Auto 3.802 10*3/uL (N) 1.7 - 7 10*3/uL no information #/vol (Bld) Neutrophils/100 70.4 % (N) 40 - 60 % no informa tion WBC Auto (Bld) Platelet mean 9.2 fL (N) 7.2 - 11.7 fL no inform ation volume Auto Entitic volume (Bld) Platelets Auto 347 10*3/uL (N) 150 - 450 no informat ion #/vol (Bld) 10*3/uL Potassium molar 4.2 mmol/L (N) 3.7 - 5.2 mmol/L no i nformation conc Protein mass 8.4 g/dL (H) 6.4 - 8.3 g/dL no inform ation conc RBC Auto #/vol 4.85 10*6/uL (N) 4.2 - 6.1 no informa tion (Bld) 10*6/uL Sodium molar 133 mmol/L (L) 135 - 145 mmol/L no info rmation conc Thyrotropin Qn 1.73 m[IU]/L (N) 0.4 - 4 m[IU]/L Not A vailable (96014) Triglyceride 89 mg/dL (N) 0 - 150 mg/dL Not Availa ble mass conc (03014) Urea nitrogen 7 mg/dL (N) 7 - 20 mg/dL no informa tion mass conc Urea NOT APPLICABLE (no code) no information nitrogen/Creatin ine mass ratio WBC Auto #/vol 5.4 10*3/uL (N) 3.5 - 10.5 no informat ion (Bld) 10*3/uL No panel information on 2018-02-03 Albumin mass 4.7 g/dL (N) 3.4 - 5.4 g/dL [facility] (39387) Albumin/Globulin 1.3 (N) [facility] ratio [facility] (87602) ALP enzyme 93 U/L (N) 44 - 147 U/L [facility] act/vol [facility] (92698) ALT enzyme 11 U/L (N) 4 - 40 U/L [facility] act/vol [facility] (34472) AST enzyme 27 U/L (N) 10 - 34 U/L [facility] act/vol [facility] (08719) Basophils Auto 0.049 10*3/uL (N) 0 - 0.3 10*3/uL [facility] #/vol (Bld) [facility] (00007) Basophils/100 1.2 % (N) 0.5 - 1 % [facility] alth WBC Auto (Bld) [facility] (82645) Bilirubin mass 0.3 mg/dL (N) 0.1 - 1.2 mg/dL [facility] (25200) Calcium mass 10.4 mg/dL (N) 8.5 - 10.2 mg/dL [facility] (12671) Chloride molar 99 mmol/L (N) 95 - 106 mmol/L [facility] (94967) CO2 molar conc 27 mmol/L (N) 23 - 29 mmol/L [facility] (31173) Creatinine mass 0.57 mg/dL (N) [facility] (23917) Eosinophils Auto 0.029 10*3/uL (N) 0.05 - 0.5 [facility] #/vol (Bld) 10*3/uL [facility] (72979) Eosinophils/100 0.7 % (N) 1 - 4 % [facility] WBC Auto (Bld) [facility] (95065) Erythrocyte 12.2 % (N) 11.6 - 14.6 % [facility] (RBC) (61726) GFR/1.73 sq M 116 (N) 90 - 120 [facility] predicted among mL/min/{1.73_m2} mL/min/{1.73_m2} Center o [facility] blacks MDRD vol [facility] rate/area (85158) (S/P/Bld) GFR/1.73 sq 100 (N) 90 - 120 [facility] M.predicted MDRD mL/min/{1.73_m2} mL/min/{1.73_m2} [facility] rate/area [facility] (42606) Globulin 3.5 (N) [facility] Calculated mass [facility] (S) [facility] (63415) Glucose mass 78 mg/dL (N) 60 - 125 mg/dL [facility] (93436) Hematocrit Auto 39.3 % (N) 36.1 - 50.3 % [facility] Volume Fraction [facility] (Bld) [facility] (93425) Hemoglobin mass 12.8 g/dL (N) 12.1 - 17.2 g/dL [facility] conc (Bld) [facility] (37794) Lymphocytes Auto 1.595 10*3/uL (N) 0.9 - 2.9 [facility] #/vol (Bld) 10*3/uL [facility] (86200) Lymphocytes/100 38.9 % (N) 20 - 40 % [facility] WBC Auto (Bld) [facility] (84592) MCH Auto Entitic 28.8 pg (N) 27 - 31 pg [facility] mass (RBC) [facility] (26723) MCHC Auto mass 32.6 g/dL (N) 32 - 36 g/dL [facility] conc (RBC) [facility] (55025) MCV Auto Entitic 88.5 fL (N) 80 - 100 fL [facility] volume (RBC) [facility] (10264) Monocytes Auto 0.316 10*3/uL (N) 0.3 - 0.9 [facility] #/vol (Bld) 10*3/uL [facility] (15497) Monocytes/100 7.7 % (N) 2 - 8 % [facility] WBC Auto (Bld) [facility] (04030) Neutrophils Auto 2.112 10*3/uL (N) 1.7 - 7 10*3/uL [facility] #/vol (Bld) [facility] (33770) Neutrophils/100 51.5 % (N) 40 - 60 % [facility] WBC Auto (Bld) [facility] (76558) Platelet mean 9.2 fL (N) 7.2 - 11.7 fL [facility] volume Auto [facility] (Bld) (97614) Platelets Auto 362 10*3/uL (N) 150 - 450 [facility] #/vol (Bld) 10*3/uL [facility] (12769) Potassium molar 4.3 mmol/L (N) 3.7 - 5.2 mmol/L [facility] (08729) Protein mass 8.2 g/dL (H) 6.4 - 8.3 g/dL [facility] (61900) RBC Auto #/vol 4.44 10*6/uL (N) 4.2 - 6.1 [facility] (Bld) 10*6/uL [facility] (09840) Sodium molar 131 mmol/L (L) 135 - 145 mmol/L [facility] (65194) Urea nitrogen 7 mg/dL (N) 7 - 20 mg/dL [facility] (24727) Urea NOT APPLICABLE (no code) [facility] nitrogen/Creatin [facility] (21127) WBC Auto #/vol 4.1 10*3/uL (N) 3.5 - 10.5 [facility] ealth (Bld) 10*3/uL [facility] (21160) No panel information on 2017-12-12 Control no information (no code) [facility] (64023) Exp date 2020-03-23 (no code) [facility] (84196) Lot # [id number] (no code) [facility] (80550) No panel information on 2017-06-13 Albumin mass 4.7 g/dL (no code) 3.4 - 5.4 g/dL 06-13-2017 Not Available conc 08:44-0400 (27409) Albumin/Globulin 1.6 {ratio} (no code) 1 - 2.5 {ratio} 7 Not Available mass ratio 08:44-0400 (85652) ALP enzyme 101 U/L (no code) 44 - 147 U/L 06-13-2017 Not Avai lable act/vol 08:44-0400 (38115) ALT enzyme 20 U/L (no code) 4 - 40 U/L 06-13-2017 Not Availa ble act/vol 08:44-0400 (70902) AST enzyme 35 U/L (no code) 10 - 34 U/L 06-13-2017 Not Avail able act/vol 08:44-0400 (76652) Basophils Auto 0.0 10*3/uL (no code) 0 - 0.3 10*3/uL 06-13-2017 Not Available #/vol (Bld) 08:46-0400 (72521) Basophils/100 1 % (no code) 0.5 - 1 % 06-13-2017 Not Avai lable WBC Auto (Bld) 08:46-0400 (52351) Bilirubin mass mg/dL (no code) 0.1 - 1.2 mg/dL 06-13-2017 N ot Available conc 08:44-0400 (89079) Calcium mass 9.9 mg/dL (no code) 8.5 - 10.2 mg/dL 06-13-2017 No t Available conc 08:44-0400 (09496) Chloride molar 90 mmol/L (L) 95 - 106 mmol/L 06-13-2017 N ot Available conc 08:33-0400 (33976) CO2 molar conc 24 mmol/L (no code) 23 - 29 mmol/L 06-13-2017 No t Available 08:47-0400 (63201) Creatinine mass 0.58 mg/dL (no code) 06-13-2017 Not Availa ble conc 08:44-0400 (84043) Eosinophils Auto 0.1 10*3/uL (no code) 0.05 - 0.5 06-13-2017 No t Available #/vol (Bld) 10*3/uL 08:46 (14003) Eosinophils/100 1 % (no code) 1 - 4 % 06-13-2017 Not Av ailable WBC Auto (Bld) 08:46 (82812) Erythrocyte 13.3 % (no code) 11.6 - 14.6 % 06-13-2017 Not Av ailable distribution 08:46 (29883) width Auto Ratio (RBC) GFR/1.73 sq M 116 (no code) 90 - 120 06-13-2017 Not Avai lable predicted among mL/min/{1.73_m2} mL/min/{1.73_m2} 08:44 (72073) blacks MDRD vol rate/area (S/P/Bld) GFR/1.73 sq M 101 (no code) 90 - 120 06-13-2017 Not Avai lable predicted among mL/min/{1.73_m2} mL/min/{1.73_m2} 08:440 (36120) non-blacks MDRD vol rate/area (S/P/Bld) Globulin 2.9 g/dL (no code) 2 - 3.5 g/dL 06-13-2017 Not Avail able Calculated mass 08:44 (31513) conc (S) Glucose mass 87 mg/dL (no code) 60 - 125 mg/dL 06-13-2017 Not Available conc 08:470 (93037) Hematocrit Auto 38.2 % (no code) 36.1 - 50.3 % 06-13-2017 No t Available Volume Fraction 08:46 (48790) (Bld) Hemoglobin mass 12.5 g/dL (no code) 12.1 - 17.2 g/dL 06-13-2017 Not Available conc (Bld) 08:46 (18134) Immature 0.0 10*3/uL (no code) 0 - 0.2 10*3/uL 06-13-2017 Not Available granulocytes 08:46 (98522) #/vol (Bld) Immature 0 % (no code) 0 - 0.5 % 06-13-2017 Not Availabl e granulocytes/100 08:46-0400 (01039) WBC (Bld) Lymphocytes Auto 1.6 10*3/uL (no code) 0.9 - 2.9 06-13-2017 Not Available #/vol (Bld) 10*3/uL 08:46-0400 (35571) Lymphocytes/100 35 % (no code) 20 - 40 % 06-13-2017 Not Av ailable WBC Auto (Bld) 08:46-0400 (42444) MCH Auto Entitic 29.3 pg (no code) 27 - 31 pg 06-13-2017 Not Available mass (RBC) 08:46-0400 (31000) MCHC Auto mass 32.7 g/dL (no code) 32 - 36 g/dL 06-13-2017 Not Available conc (RBC) 08:46-0400 (11835) MCV Auto Entitic 90 fL (no code) 80 - 100 fL 06-13-2017 Not Available volume (RBC) 08:46-0400 (72996) Monocytes Auto 0.4 10*3/uL (no code) 0.3 - 0.9 06-13-2017 Not A vailable #/vol (Bld) 10*3/uL 08:46-0400 (29604) Monocytes/100 8 % (no code) 2 - 8 % 06-13-2017 Not Avai lable WBC Auto (Bld) 08:46-0400 (34106) Neutrophils Auto 2.6 10*3/uL (no code) 1.7 - 7 10*3/uL 7 Not Available #/vol (Bld) 08:46-0400 (46459) Neutrophils/100 55 % (no code) 40 - 60 % 06-13-2017 Not Av ailable WBC Auto (Bld) 08:46-0400 (84522) Platelets Auto 360 10*3/uL (no code) 150 - 450 06-13-2017 Not A vailable #/vol (Bld) 10*3/uL 08:46-0400 (66914) Potassium molar 4.5 mmol/L (no code) 3.7 - 5.2 mmol/L 06-13-2017 Not Available conc 08:37-0400 (28130) Protein mass 7.6 g/dL (no code) 6.4 - 8.3 g/dL 06-13-2017 Not Available conc 08:44-0400 (39374) RBC Auto #/vol 4.27 10*6/uL (no code) 4.2 - 6.1 06-13-2017 Not Available (Bld) 10*6/uL 08:46-0400 (50368) Sodium molar 130 mmol/L (L) 135 - 145 mmol/L 06-13-2017 N ot Available conc 08:33-0400 (17004) Urea nitrogen 9 mg/dL (no code) 7 - 20 mg/dL 06-13-2017 Not A vailable mass conc 08:44-0400 (55253) Urea 16 mg/mg (no code) 6 - 22 mg/mg 06-13-2017 Not Avail able nitrogen/Creatin 08:44-0400 (79795) ine mass ratio WBC Auto #/vol 4.7 10*3/uL (no code) 3.5 - 10.5 06-13-2017 Not Available (Bld) 10*3/uL 08:46-0400 (44605) No panel information on 2017-05-15 Albumin 4.2 g/dL (no code) 3.4 - 5.4 g/dL 05-15-2017 Not Juliette ilable [Mass/Vol] 07:43-0400 (48749) Albumin/Globulin 1.4 {ratio} (no code) 1 - 2.5 {ratio} 7 Not Available [Mass ratio] 07:51-0400 (47212) ALP [Catalytic 119 U/L (H) 44 - 147 U/L 05-15-2017 Not Available activity/Vol] 07:51-0400 (44157) ALT [Catalytic 20 U/L (no code) 4 - 40 U/L 05-15-2017 Not Av ailable activity/Vol] 07:51-0400 (80816) AST [Catalytic 36 U/L (no code) 10 - 34 U/L 05-15-2017 Not A vailable activity/Vol] 07:51-0400 (97185) Basophils (Bld) 0.0 10*3/uL (no code) 0 - 0.3 10*3/uL 05-15-2017 Not Available [#/Vol] 07:21-0400 (11725) Basophils/100 1 % (no code) 0.5 - 1 % 05-15-2017 Not Avai lable WBC (Bld) 07:210 (41057) Bilirubin mg/dL (no code) 0.1 - 1.2 mg/dL 05-15-2017 Not Av ailable [Mass/Vol] 07:51-0400 (82411) Calcium 9.7 mg/dL (no code) 8.5 - 10.2 mg/dL 05-15-2017 Not A vailable [Mass/Vol] 07:51-0400 (27427) Chloride 94 mmol/L (L) 95 - 106 mmol/L 05-15-2017 Not Av ailable [Moles/Vol] 07:430400 (70092) CO2 [Moles/Vol] 20 mmol/L (no code) 23 - 29 mmol/L 05-15-2017 N ot Available 07:550 (58225) Creatinine 0.49 mg/dL (L) 05-15-2017 Not Available [Mass/Vol] 07:430 (74744) Eosinophils 0.1 10*3/uL (no code) 0.05 - 0.5 05-15-2017 Not Juliette ilable (Bld) [#/Vol] 10*3/uL 07:0 (93389) Eosinophils/100 1 % (no code) 1 - 4 % 05-15-2017 Not Av ailable WBC (Bld) 07:21 (30917) Erythrocyte 14.5 % (no code) 11.6 - 14.6 % 05-15-2017 Not Av ailable distribution 07: (51882) width (RBC) [Ratio] GFR/1.73 sq M 122 (no code) 90 - 120 05-15-2017 Not Avai lable predicted among mL/min/{1.73_m2} mL/min/{1.73_m2} 07:430400 (89161) blacks MDRD (S/P/Bld) [Vol rate/Area] GFR/1.73 sq M 106 (no code) 90 - 120 05-15-2017 Not Avai lable predicted among mL/min/{1.73_m2} mL/min/{1.73_m2} 07:43-0400 (08782) non-blacks MDRD (S/P/Bld) [Vol rate/Area] Globulin (S) 3.1 g/dL (no code) 2 - 3.5 g/dL 05-15-2017 Not Av ailable [Mass/Vol] 07:51 (46154) Glucose 87 mg/dL (no code) 60 - 125 mg/dL 05-15-2017 Not Juliette ilable [Mass/Vol] 07:51 (42975) Hematocrit (Bld) 34.2 % (no code) 36.1 - 50.3 % 05-15-2017 N ot Available [Volume 07: () fraction] Hemoglobin (Bld) 10.9 g/dL (L) 12.1 - 17.2 g/dL 05-15-2017 Not Available [Mass/Vol] 07: (64463) Immature 0.0 10*3/uL (no code) 0 - 0.2 10*3/uL 05-15-2017 Not Available granulocytes 07: () (Bld) [#/Vol] Immature 0 % (no code) 0 - 0.5 % 05-15-2017 Not Availabl e granulocytes/100 07: (98523) WBC (Bld) Lymphocytes 2.2 10*3/uL (no code) 0.9 - 2.9 05-15-2017 Not Avai lable (Bld) [#/Vol] 10*3/uL 07: (88886) Lymphocytes/100 36 % (no code) 20 - 40 % 05-15-2017 Not Av ailable WBC (Bld) 07: (05960) MCH (RBC) 29.3 pg (no code) 27 - 31 pg 05-15-2017 Not Availab le [Entitic mass] 07: (93576) MCHC (RBC) 31.9 g/dL (no code) 32 - 36 g/dL 05-15-2017 Not Avai lable [Mass/Vol] 07: (16614) MCV (RBC) 92 fL (no code) 80 - 100 fL 05-15-2017 Not Availa ble [Entitic vol] 07: (77000) Monocytes (Bld) 0.5 10*3/uL (no code) 0.3 - 0.9 05-15-2017 Not Available [#/Vol] 10*3/uL 07: (80275) Monocytes/100 8 % (no code) 2 - 8 % 05-15-2017 Not Avai lable WBC (Bld) 07: (73646) Neutrophils 3.2 10*3/uL (no code) 1.7 - 7 10*3/uL 05-15-2017 No t Available (Bld) [#/Vol] 07: (87942) Neutrophils/100 54 % (no code) 40 - 60 % 05-15-2017 Not Av ailable WBC (Bld) 07: (53400) Platelets (Bld) 411 10*3/uL (H) 150 - 450 05-15-2017 Not Available [#/Vol] 10*3/uL 07: (65936) Potassium 4.3 mmol/L (no code) 3.7 - 5.2 mmol/L 05-15-2017 Not Available [Moles/Vol] 07:430 (45337) Protein 7.3 g/dL (no code) 6.4 - 8.3 g/dL 05-15-2017 Not Juliette ilable [Mass/Vol] 07:0400 (99382) RBC (Bld) 3.72 10*6/uL (L) 4.2 - 6.1 05-15-2017 Not Avail able [#/Vol] 10*6/uL 07: (61273) Sodium 133 mmol/L (L) 135 - 145 mmol/L 05-15-2017 Not Available [Moles/Vol] 07:430400 (02266) Urea nitrogen 17 mg/dL (no code) 7 - 20 mg/dL 05-15-2017 Not A vailable [Mass/Vol] 07:510400 (56661) Urea 35 mg/mg (H) 6 - 22 mg/mg 05-15-2017 Not Avail able nitrogen/Creatin 07:510400 (37335) ine [Mass ratio] WBC (Bld) 6.0 10*3/uL (no code) 3.5 - 10.5 05-15-2017 Not Avail able [#/Vol] 10*3/uL 07:21-0400 (90562) No panel information on 2017-05-08 Bacteria Note (no code) 05-08-2017 Not Available identified Cx 13:000 (47200) Nom (U) No panel information on 2017-01-23 25-Hydroxyvitami 35.7 (no code) 01-23-2017 Not Avail able n 11:53-0400 (53264) D2+25-Hydroxyvit parrish D3 [Mass/Vol] Albumin 4.6 g/dL (no code) 3.4 - 5.4 g/dL 01-23-2017 Not Juliette ilable [Mass/Vol] 09: (68836) Albumin/Globulin 1.3 {ratio} (no code) 1 - 2.5 {ratio} 7 Not Available [Mass ratio] 09: (21992) ALP [Catalytic 92 U/L (no code) 44 - 147 U/L 01-23-2017 Not Available activity/Vol] 09: (84404) ALT [Catalytic 14 U/L (no code) 4 - 40 U/L 01-23-2017 Not Av ailable activity/Vol] 09: (52423) AST [Catalytic 29 U/L (no code) 10 - 34 U/L 01-23-2017 Not A vailable activity/Vol] 09: (74122) Basophils (Bld) 0.0 10*3/uL (no code) 0 - 0.3 10*3/uL 01-23-2017 Not Available [#/Vol] 08: (91209) Basophils/100 1 % (no code) 0.5 - 1 % 01-23-2017 Not Avai lable WBC (Bld) 08: (75335) Bilirubin 0.3 mg/dL (no code) 0.1 - 1.2 mg/dL 01-23-2017 Not Av ailable [Mass/Vol] 09: (22395) Calcium 9.8 mg/dL (no code) 8.5 - 10.2 mg/dL 01-23-2017 Not A vailable [Mass/Vol] 09: (77080) Chloride 90 mmol/L (L) 95 - 106 mmol/L 01-23-2017 Not Av ailable [Moles/Vol] 09: (38766) CO2 [Moles/Vol] 25 mmol/L (no code) 23 - 29 mmol/L 01-23-2017 N ot Available 09: (82589) Cobalamin 430 pg/mL (no code) 200 - 900 pg/mL 01-23-2017 Not Av ailable (Vitamin B12) 09: (26941) [Mass/Vol] Creatinine 0.60 mg/dL (no code) 01-23-2017 Not Available [Mass/Vol] 09: (40581) Eosinophils 0.1 10*3/uL (no code) 0.05 - 0.5 01-23-2017 Not Juliette ilable (Bld) [#/Vol] 10*3/uL 08: (55883) Eosinophils/100 1 % (no code) 1 - 4 % 01-23-2017 Not Av ailable WBC (Bld) 08: (18561) Erythrocyte 14.2 % (no code) 11.6 - 14.6 % 01-23-2017 Not Av ailable distribution 08: (32045) width (RBC) [Ratio] GFR/1.73 sq M 115 (no code) 90 - 120 01-23-2017 Not Avai lable predicted among mL/min/{1.73_m2} mL/min/{1.73_m2} 09: (31809) blacks MDRD (S/P/Bld) [Vol rate/Area] GFR/1.73 sq M 99 (no code) 90 - 120 01-23-2017 Not Avai lable predicted among mL/min/{1.73_m2} mL/min/{1.73_m2} 09: (43433) non-blacks MDRD (S/P/Bld) [Vol rate/Area] Globulin (S) 3.6 g/dL (no code) 2 - 3.5 g/dL 01-23-2017 Not Av ailable [Mass/Vol] 09: (39254) Glucose 83 mg/dL (no code) 60 - 125 mg/dL 01-23-2017 Not Juliette ilable [Mass/Vol] 09: (97470) Hematocrit (Bld) 37.4 % (no code) 36.1 - 50.3 % 01-23-2017 N ot Available [Volume 08: (86961) fraction] Hemoglobin (Bld) 12.7 g/dL (no code) 12.1 - 17.2 g/dL 01-23-2017 Not Available [Mass/Vol] 08: (56630) Immature 0.0 10*3/uL (no code) 0 - 0.2 10*3/uL 01-23-2017 Not Available granulocytes 08: (45904) (Bld) [#/Vol] Immature 0 % (no code) 0 - 0.5 % 01-23-2017 Not Availabl e granulocytes/100 08: (79604) WBC (Bld) Lymphocytes 1.6 10*3/uL (no code) 0.9 - 2.9 01-23-2017 Not Avai lable (Bld) [#/Vol] 10*3/uL 08: (12606) Lymphocytes/100 38 % (no code) 20 - 40 % 01-23-2017 Not Av ailable WBC (Bld) 08: (47333) Magnesium 2.0 mg/dL (no code) 1.7 - 2.2 mg/dL 01-23-2017 Not Av ailable [Mass/Vol] 09:35-0400 ([id number]) MCH (RBC) 28.7 pg (no code) 27 - 31 pg 01-23-2017 Not Availab le [Entitic mass] 08:030400 (90153) MCHC (RBC) 34.0 g/dL (no code) 32 - 36 g/dL 01-23-2017 Not Avai lable [Mass/Vol] 08:030400 (14475) MCV (RBC) 84 fL (no code) 80 - 100 fL 01-23-2017 Not Availa ble [Entitic vol] 08: (03782) Monocytes (Bld) 0.5 10*3/uL (no code) 0.3 - 0.9 01-23-2017 Not Available [#/Vol] 10*3/uL 08: (61641) Monocytes/100 11 % (no code) 2 - 8 % 01-23-2017 Not Avai lable WBC (Bld) 08: (83326) Neutrophils 2.0 10*3/uL (no code) 1.7 - 7 10*3/uL 01-23-2017 No t Available (Bld) [#/Vol] 08: (11072) Neutrophils/100 49 % (no code) 40 - 60 % 01-23-2017 Not Av ailable WBC (Bld) 08: (01079) Platelets (Bld) 321 10*3/uL (no code) 150 - 450 01-23-2017 Not Available [#/Vol] 10*3/uL 08: (02973) Potassium 4.5 mmol/L (no code) 3.7 - 5.2 mmol/L 01-23-2017 Not Available [Moles/Vol] 09: (10107) Protein 8.2 g/dL (no code) 6.4 - 8.3 g/dL 01-23-2017 Not Juliette ilable [Mass/Vol] : (21882) RBC (Bld) 4.43 10*6/uL (no code) 4.2 - 6.1 01-23-2017 Not Avail able [#/Vol] 10*6/uL 08: (86596) Sodium 133 mmol/L (L) 135 - 145 mmol/L 01-23-2017 Not Available [Moles/Vol] 09: (95149) TSH Qn 1.740 (no code) 01-23-2017 Not Available 10:0 (81352) Urea nitrogen 12 mg/dL (no code) 7 - 20 mg/dL 01-23-2017 Not A vailable [Mass/Vol] 09: (48317) Urea 20 mg/mg (no code) 6 - 22 mg/mg 01-23-2017 Not Avail able nitrogen/Creatin 09: (40584) ine [Mass ratio] WBC (Bld) 4.2 10*3/uL (no code) 3.5 - 10.5 01-23-2017 Not Avail able [#/Vol] 10*3/uL 08:030400 ([id number]) Vital Signs Vital Sign Value Interpretation Reference Date Time Care Prov ider Facility (Normalized) (Normalized) Range BMI (Body Mass 21.7 kg/m2 (no code) 15 - 25 kg/m2 11-23-2018 Ran wallace [facility] Index) 08:17-[address] ([id number]) ( ) BMI (Body Mass 17.37 kg/m2 (no code) 15 - 25 kg/m2 10-15-2018 TR ROGER HENDERSON [facility] Index) 11:00-[address] [place] [address] ([id number]) BMI (Body Mass 17.75 kg/m2 (no code) 15 - 25 kg/m2 10-02-2018 TA [facility] Community Index) 10:40-[address] [place] [address] ([id number]) BMI (Body Mass 17.63 kg/m2 (no code) 15 - 25 kg/m2 08-03-2018 CA DONALD Community Index) 11:20-[email or web address] [place] [address] ([id number]) BMI (Body Mass 16.92 kg/m2 (no code) 15 - 25 kg/m2 05-05-2018 M MELISSA EATON Community Index) 15:40-[address] [place] [address] ([id number]) BMI (Body Mass 17.68 kg/m2 (no code) 15 - 25 kg/m2 02-03-2018 TA BLANKYA SHRUTHI Community Index) 11:40-[address] [place] [address] ([id number]) BMI (Body Mass 18.85 kg/m2 (no code) 15 - 25 kg/m2 12-12-2017 DOUG MCKEON Community Index) 13:30-[address] [place] [address] ([id number]) Body height 162.56 cm (no code) cm 05-27-2014 ESTELLA SOTOMAYOR Community 11:33-[address] [place] [address] ([id number]) Body height 162.56 cm (no code) cm 12-17-2013 [facility] 09:39-0500 [facility] ([id number]) Body height 162.56 cm (no code) cm Elie Yu MD [place] ([id number]) Body 97.1 [degF] (no code) 97.8 - 99.0 11-23-2018 Piter [facility] Temperature [degF] 10:32-0500 Joon [id number] [place] ([phone]) ( ) Body 97.9 [degF] (no code) 97.8 - 99.0 10-15-2018 JOSE KIN G Community Temperature [degF] 11:00-0500 [id number] [facility] ([id number]) Body 96.8 [degF] (no code) 97.8 - 99.0 10-02-2018 ESTELLA MAD L Community Temperature [degF] 10:40-0500 [id number] [facility] ([id number]) Body 97.2 [degF] (no code) 97.8 - 99.0 08-03-2018 [facility] Temperature [degF] 11:20-[facility]00 [facility] [address] [facility] [address] [facility] ([id number]) Body 98.3 [degF] (no code) 97.8 - 99.0 05-05-2018 JOLANTA CA [facility] Temperature [degF] 15:40-0400 66964 [facility] (575[address]) Body 98.2 [degF] (no code) 97.8 - 99.0 02-03-2018 ESTELLA MAD L Community Temperature [degF] 11:40-0400 92963 [facility] (94623) Body 98.7 [degF] (no code) 97.8 - 99.0 12-12-2017 KEHINDE Community Temperature [degF] 13:30-0500 [place] [address] [facility] nter [facility] (77665) Body 97.6 [degF] (no code) 97.8 - 99.0 05-27-2014 ESTELLA MAD L Community temperature [degF] 11:33-0400 08836 [facility] (18978) Body 97.2 [degF] (no code) 97.8 - 99.0 04-27-2014 [facility] Temperature [degF] 14:44-0400 25908 [facility] (30769) Body 98 [degF] (no code) 97.8 - 99.0 12-17-2013 Doctor [facility] temperature [degF] 09:39-0500 Migration [facility] (68225) Body weight 48.26 kg (no code) kg 05-27-2014 [facility] 11:33-0400 61208 [facility] (36227) Body weight 47.77 kg (no code) kg 04-27-2014 [facility] 14:44-0400 28583 [facility] (94844) Body weight 45.81 kg (no code) kg 12-17-2013 Doctor Com [facility]unity 09:39-0500 Migration [facility] ([id number]) Body weight 2020.198 (no code) Elie morrow MD [place] ([address]) Blood Pressure 135/ (no code) Systolic: 90 - 11-23-2018 Aixa [facility] 62mm[Hg] 120 mm[Hg] 10:32-[address] (4691 4) (Work Phone: Diastolic: 60 ) - 80 mm[Hg] Height 162.56 cm (no code) cm 11-23-2018 Piter Duron [facility] 08:170500 [address] ([address]) ( ) Height 162.56 cm (no code) cm 10-15-2018 JOSE BEATRIZ Co mmunity 11:000500 [address] [place] [address] (32485) Height 162.56 cm (no code) cm 10-02-2018 ESTELLAKELSI HAWKINS Co mmunity 10:40-[address] [place] [address] (10180) Height 162.56 cm (no code) cm 08-03-2018 JOLANTA blanchard 11:200400 zzCAREY [address]20 [facility] (31295) Height 162.56 cm (no code) cm 05-05-2018 JOLANTA EATON [facility] 15:40-0400 99305 [facility] (01425) Height 162.56 cm (no code) cm 02-03-2018 ESTELLA MADL Co mmunity 11:400400 37310 [facility] (10894) Height 162.56 cm (no code) cm 12-12-2017 MARLA Lawson unity 13:30-[id number] [place] [address] ([address]) Height 162.56 cm (no code) cm 04-27-2014 ESTELLA MADL Co [facility]munity 14:440400 [address] [place] [address] (57[address]) Pulse (Heart 44 /min (no code) 60 - 100 /min 11-23-2018 Piter [facility] Rate) 10:38-[address] ([address]) ( ) Pulse Oximetry 100 % (no code) 95 - 100 % 11-23-2018 Piter [facility] 10:32-[address] ([address]683) ( ) Respiratory 20 /min (no code) 12 - 20 /min 11-23-2018 Piter [facility] Rate 10:32-[address] ([address]) ( ) Weight 57.3 kg (no code) kg 11-23-2018 Piter [facility] 08:17-[address] ([address]92) ( ) Weight 45.9 kg (no code) kg 10-15-2018 JOSE BEATRIZ Com munity 11:000500 [address] [place] [address] (80964) Weight 46.9 kg (no code) kg 10-02-2018 ESTELLA MADL Com munity 10:400500 [id number] [place] [address] ([address]395) Weight 46.58 kg (no code) kg 08-03-2018 JOLANTA Bhat ity 11:20-0400 zzCAREY [address] [facility] (32928) Weight 44.72 kg (no code) kg 05-05-2018 JOLANTA Jackson ommunity 15:40-0400 22420 [facility] (88510) Weight 46.72 kg (no code) kg 02-03-2018 ESTELLA MADL Com munity 11:400400 22895 [facility] (20356) Weight 49.81 kg (no code) kg 12-12-2017 MARLA Villalobos nity 13:30-0500 [place] [address] [facility] (77838) Interventions No Information Plan of Treatment Normalized Care Care Detail Care Activity Date Care Provider F acility Activity (IPT) Internal PCP [facility] 10-15-2018 ESTELLA MADL [phone] Community [facility] ([id number]) Patient Education [facility] no information Piter [facility] Services [address] CENTER ([id number]) (Wor k ) no information no information no information ESTELLA MADL [address] [facility] (08758) Goals Patient Goal Desired Goal no information no information Social History Normalized Code Original Code Date Value Tobacco smoking status Tobacco smoking status 11-23-2018 - Unknown if ever smoked MNIS MNIS no information no information 11-23-2018 current no information no information 11-23-2018 a few times a m [facility] no information no information 11-23-2018 does not use Sex Assigned At Sex Assigned At 1955 - 09-10 Female Functional Status The data below is from unstructured sources Query Response Date Bryan rded Patient Orientation Person Place Time Situation April 22, 2017 2:53pm Patient Orientation Person Place Time Situation April 23, 2017 8:00am Comprehension Ability Understands Co ncepts April 23, 2017 8:00am Mental Status The data below is from unstructured sourcesNo Mental Status Information AvailableNo Mental Status Information AvailableNo Mental Status Information Available Encounters Encounter Normalized Encounter Encounter Diagnosis Care Provi quyen Organization Date Type 11-23-2018 Admission to day no information (no phone) [facility] - surgery Work Phone: 11-23-2018 06-09-2018 Admission to day no information ISABELLE Wright Fronto Work no organization name - surgery (no phone ) 06-09-2018 05-11-2018 [facility] Hypo-osmolality and JOLANTA Manuel YOVANNY (no [facility] - hyponatremia phone) JOLANTA bellaYOLANDEMustapha (no nikita ne) 05-11-2018 (no phone) JOLANTA Guillermo CárdenasMustapha (no phone) 05-11-2018 NEGATED Patient encounter no information no name (no phone) no organization name 06-09-2018 (no phone) - 06-09-2018 06-02-2018 Patient encounter no information ISABELLE Wright Diditz no organization name (no phone) 05-05-2018 Patient encounter no information no name (no phone) no organization name (no phone) NEGATED Patient encounter no information no name (no phone) no organization name 05-05-2018 (no phone) 04-30-2018 Patient encounter no information no name (no phone) no organization name (no phone) 02-03-2018 Patient encounter no information no name (no phone) no organization name (no phone) 01-23-2018 Patient encounter no information no name (no phone) no organization name - (no phone) 01-23-2018 01-21-2018 Patient encounter no information no name (no phone) no organization name (no phone) 01-19-2018 Patient encounter no information no name (no phone) no organization name (no phone) 01-16-2018 Patient encounter no information no name (no phone) no organization name (no phone) 01-14-2018 Patient encounter no information no name (no phone) no organization name (no phone) 01-12-2018 Patient encounter no information no name (no phone) no organization name (no phone) 01-09-2018 Patient encounter no information no name (no phone) no organization name (no phone) 01-07-2018 Patient encounter no information no name (no phone) no organization name (no phone) 01-05-2018 Patient encounter no information no name (no phone) no organization name (no phone) 01-02-2018 Patient encounter no information no name (no phone) no organization name (no phone) 12-31-2017 Patient encounter no information no name (no phone) no organization name (no phone) 12-30-2017 Patient encounter no information no name (no phone) no organization name (no phone) 12-26-2017 Patient encounter no information no name (no phone) no organization name (no phone) 12-12-2017 Patient encounter no information no name (no phone) no organization name (no phone) 12-04-2017 Patient encounter no information no name (no phone) no organization name (no phone) 08-21-2017 Patient encounter no information no name (no phone) no organization name - (no phone) 08-21-2017 NEGATED Patient encounter no information no name (no phone) no organization name 08-19-2017 (no phone) NEGATED Patient encounter no information no name (no phone) no organization name 08-14-2017 (no phone) 08-12-2017 Patient encounter no information no name (no phone) no organization name (no phone) 08-10-2017 Patient encounter no information no name (no phone) no organization name (no phone) 08-06-2017 Patient encounter no information no name (no phone) no organization name - (no phone) 08-09-2017 01-22-2017 Patient encounter no information no name (no phone) no organization name (no phone) 07-30-2013 Patient encounter no information no name (no phone) no organization name (no phone) 04-20-2013 Patient encounter no information no name (no phone) no organization name (no phone) 03-31-2013 Patient encounter no information no name (no phone) no organization name (no phone) 03-12-2013 Patient encounter no information no name (no phone) no organization name - (no phone) 03-16-2013 12-02-2012 Patient encounter no information no name (no phone) no organization name - (no phone) 12-28-2012 NEGATED Patient encounter no information no name (no phone) no organization name (no phone) 12-16-2019 Patient encounter no information (no phone) (no nikita ne) [facility] - procedure [place] 12-16-2019 Center (no phone) [facility]. (no phone) 12-16-2019 Patient encounter no information Piter BUCK V (no [facility] - procedure phone) Piter Dupree (no nikita ne) 12-16-2019 V (no phone) 11-02-2019 Patient encounter no information no name (no phone) no organization name procedure (no phone) 09-28-2019 Patient encounter no information no name (no phone) no organization name procedure (no phone) 07-27-2019 Patient encounter no information no name (no phone) no organization name procedure (no phone) 07-27-2019 Patient encounter no information no name (no phone) no organization name procedure (no phone) 04-13-2019 Patient encounter no information no name (no phone) no organization name procedure (no phone) 04-13-2019 Patient encounter no information no name (no phone) no organization name procedure (no phone) 12-01-2018 Patient encounter no information (no phone) (no nikita ne) [facility] - procedure Work Phone: 12-01-2018 11-23-2018 Patient encounter no information no name (no phone) no organization name - procedure (no phone) 11-23-2018 10-15-2018 Patient encounter no information no name (no phone) no organization name procedure (no phone) 10-02-2018 Patient encounter no information no name (no phone) no organization name procedure (no phone) 09-24-2018 Patient encounter no information no name (no phone) no organization name procedure (no phone) 08-04-2017 Patient encounter no information no name (no phone) no organization name procedure (no phone) 08-01-2017 Patient encounter no information no name (no phone) no organization name procedure (no phone) 07-30-2017 Patient encounter no information no name (no phone) no organization name procedure (no phone) 04-11-2017 Patient encounter no information no name (no phone) no organization name - procedure (no phone) 04-15-2017 06-20-2016 no information Encounter for general no name (no ph one) no organization name adult medical (no phone) examination without abnormal findings no information Dental examination no name (no phone) no orga nization name (no phone) no information Encounter for other no name (no phone) no org anization name preprocedural (no phone) examination no information Encounter for no name (no phone) no organiza tion name preprocedural (no phone) laboratory examination Medical Equipment The data below is from unstructured sourcesNo Medical Equipment Information availableNo Medical Equipment Information availableNo Medical Equipment Information available Payers Normalized Payer Value Private Health Insurance [id number]) Self-pay no information Unknown [id number]) Evaluation note Note Type Note Facility Evaluation No Assessments Information Available [facility] ([id number]) (Work Phone: ) History general Narrative - Reported Note Type Note Facility History general Narrative - Reported Type Medical Chronic liver disease History Medical Osteoporosis History Medical Derpression History Medical Generalized anxiety disorde r History Medical Nondependent tobacco use di sorder History Medical Scoliosis (and kyphoscolios is), idiopathic History Medical Essential hypertension, barbie ign History Medical Lumbago History Medical Postoperative anemia History Surgical Otolaryngologic surgery jaw resection, overbite 1978 History Surgical Arthroscopyof the left knee 2002 History Surgical Back Surgery -spinal fusion - Dr. De Los Santos 04/11/2017 History Surgical left Knee replacment 11/2017 History Hospitaliz Surgery(s) only ation History [facility] ([id number]) Assessments and Plan Title: Author: Date: CRMMP/Wellness Visit Piter Dupree MD 06/20/16 Impression and Plan Diagnosis Seborrheic keratoses (SZX76-GA L82.1, Discharge, Medical). Right hand pain (DSV88-RN M79.641, Discharge, Medical). Inclusion cyst (AXP65-NW L72.0, Discharge, Medical). Adenomatous polyps (BYK39-BQ D36.9, Discharge, Medical). Title: CRMMP Author: Date: Piter Dupree MD 05/26/15 Assessment/Plan Adenomatous polyps Repeat colonoscopy due in 2018. Atrophic vaginitis May use vaginal lubricants, follow-up if she wants to go ahead with estrogen cream. Carpal tunnel syndrome Encounter for preventive health examination Ordered: Lipid Panel IBS (irritable bowel syndrome) Overall stable. Follow-up yearly/when necessary. Addendum We did discuss that tick doug rn illness and follow-up if she has worsening symptoms or if by this lesion does not fully resolve in the next few weeks. Piter Dupree MD on May 26, 2015 13:32:18 CDT Summary Purpose eClinicalWorks SubmissioneClinicalWorks SubmissioneClinicalWorks SubmissioneClinicalWorks SubmissioneClinicalWorks SubmissioneClinicalWorks Submission Advance Directives Directive Response Recor ded Date/Time Advance Directives Yes 0 04/03/17 2:22pm Health Care Power of Vba Developer No 04/03/17 2:22pm Organ Donor Yes 04/03/17 2:22pm Resuscitation Status Full Code 04/03/17 2:22pm Directive Response Recor ded Date/Time Advance Directives No 3:50pm Health Care Power of Vba Developer No 02/09/15 3:50pm Organ Donor Yes 05/16/12 2:50am Resuscitation Status Full Code 02/09/15 3:50pm Directive Response Recor ded Date Advance Directives Y 05/21 2:50am Organ Donor Y 05/16/12 2 :50am Directive Response Recor ded Date/Time Advance Directives Yes 0 04/15/17 12:26pm Health Care Power of Vba Developer No 04/15/17 12:26pm Organ Donor Yes 04/15/17 12:26pm Resuscitation Status DNR-Pt Request 04/15/17 12:26pm Directive Response Recor ded Date/Time Advance Directives Yes 0 04/15/17 12:26pm Health Care Power of Vba Developer No 04/15/17 12:26pm Organ Donor Yes 04/15/17 12:26pm Directive Response Recor ded Date/Time Advance Directives Yes 0 06/09/18 7:10am Health Care Power of Vba Developer No 06/09/18 7:10am Organ Donor Yes 06/09/18 7:10am Resuscitation Status Full Code 06/09/18 7:10am Advance Directive Response Recorded Date/Time Advance Directives Yes J anuary 2018 7:32am Advance Directives on File No November 23, 2018 7:32am Health Care Proxy No Nov 7:32am Living Will No November 102018 7:32am Discharge Instructions Query Response Comment Date/Time Diet As Tolerated 11/23/2018 09:[address] today 11/23/2018 09:07 Wound Care N/A 11/23/2018 09:07 Expected Signs/Symptoms None 11/23/2018 09:07 Notify Physician If 11/23/2018 09:07 During Business Hours Call [phone] 11/23/2018 09:07 After Business Hours Call ([facility]) 11/23/2018 09:07 Pending Lab/Results No Pending Lab 11/23/2018 09:07 Chief Complaint and Reason for Visit Encounter Admit Date Chi ef Complaint Reason for Visit Departed Surgical Day Care November 102018 7:09am Personal hx adenomatous polyps Encounter Admit Date Chi ef Complaint Reason for Visit Departed Clinical December 01, 2018 2:50pm mammo screening Chief Complaint screening mammo Family History Relationship Condition A ge at Onset Recorded Date/Time mother Unknown Hypertension Unknown Unknown Arthritis Unknown father Hypertension Unkn own sister Autoimmune disease Unknown Additional Source Comments This clinical document has been generated using [employer] software that has been certified by the Office of the National Coordinator for Health Information Technology (ONC 15.99.04.3023.Diam.31.00.0.280325) and the National Committee for Radio Television Announcer (NCQA, as an eMeasure certified technology). FOR RECORDS PERTAINING TO PATIENTS WHO ARE OR HAVE BEEN ENROLLED IN A CHEMICAL D EPENDENCY/SUBSTANCE ABUSE PROGRAM, SOME INFORMATION MAY BE OMITTED. This clinica l summary was aggregated from multiple sources. Caution should be exercised in using it in the provision of clinical care. This summary normalizes information from multiple sources, and as a consequence, information in this document may ma terially change the coding, format and clinical context of patient data. In elif tion, data may be omitted in some cases. CLINICAL DECISIONS SHOULD BE BASED ON T HE PRIMARY CLINICAL RECORDS. [employer]. provides no warranty or guara ntee of the accuracy or completeness of information in this document.The followi ng information is based on time limited clinical information UNRECOGNIZED CONTENT PROVIDED BELOW FOR UNRECOGNIZED SECTION MEDICAL (GENERAL) HISTORY Type Description Date Medical History Hypertension Medical History Chronic liver disease Medical History Osteoporosis Medical History Derpression Medical History Anxiety Medical History Generalized anxiety disorder Medical History Unspecified osteoporosis Medical History Depressive disorder, not elsewhere classified Medical History Nondependent tobacco use disorder Medical History Anxiety state, unspecified Medical History Scoliosis (and kypho scoliosis), idiopathic Medical History Essential hypertensi on, benign Medical History Lumbago Surgical History Otolaryngologic rico ismael jaw resection, overbite 1978 Surgical History Arthroscopyof the l eft knee 2002 Surgical History Back Surgery -spina l fusion - Dr. De Los Santos 04/11/2017 Hospitalization History Surgery(s) only Type Description Date Medical History Hypertension Medical History Chronic liver disease Medical History Osteoporosis Medical History Derpression Medical History Anxiety Medical History Generalized anxiety disorder Medical History Unspecified osteoporosis Medical History Depressive disorder, not elsewhere classified Medical History Nondependent tobacco use disorder Medical History Anxiety state, unspecified Medical History Scoliosis (and kypho scoliosis), idiopathic Medical History Essential hypertensi on, benign Medical History Lumbago Medical History Postoperative anemia Surgical History Otolaryngologic rico ismael jaw resection, overbite 1978 Surgical History Arthroscopyof the l eft knee 2002 Surgical History Back Surgery -spina l fusion - Dr. De Los Santos 04/11/2017 Surgical History left Knee replacment 11/2017 Hospitalization History Surgery(s) only Type Description Date Medical History Chronic liver disease Medical History Osteoporosis Medical History Derpression Medical History Generalized anxiety disorder Medical History Nondependent tobacco use disorder Medical History Scoliosis (and kypho scoliosis), idiopathic Medical History Essential hypertensi on, benign Medical History Lumbago Medical History Postoperative anemia Surgical History Otolaryngologic rico ismael jaw resection, overbite 1978 Surgical History Arthroscopyof the l eft knee 2002 Surgical History Back Surgery -spina l fusion - Dr. De Los Santos 04/11/2017 Surgical History left Knee replacment 11/2017 Hospitalization History Surgery(s) only Type Description Date Medical History History of colon kellie yp. IBS. Surgical History colonoscopy, hx of blood transfusion, removal of vocal cord nodules UNRECOGNIZED CONTENT PROVIDED BELOW FOR UNRECOGNIZED SECTION REASON FOR VISIT Diarrhea since 04/10, last evening had an episode of diarrhea, got up, nausea, c old sweats, and fell causing a left arm skin tear and a left black eye. Rich RNlabsRequests return callControlled Med RefillUTI symptoms started Tu JStrass erRNEstablish Care Braulio DALTONOIQIH-TigUHE-DlyUKF[facility]
--- OUTSIDE RECORDS SUMMARY | 2020-02-19 13:33 | XMS REPORT ---
Author Author Sherly Dupree Organization [address] [place] [id number] Care Team Providers Care Instantizer Operator Name Role Phone Piter Dupree Unavailable PROBLEMS Type Condition ICD9-CM Code NZX94-FD Code Onset Dates Condition S tatus SNOMED Code Problem Numbness of right anterior thigh R20.8 Active [id number] Problem Hx of adenomatous colonic polyps Z86.010 Active [id number] ALLERGIES No Information ENCOUNTERS Encounter Location Date Diagnosis [address] [id number] [place] [address] Sep, [address] [id number] [place] [address] Sep, Wellness examination Z00.00 ; Hx of adenomatous colonic polyps Z86.010 and Polyarticular osteoarthritis M15.[address] [id number] [place] [address] Sep, Cervical cancer screening Z1 2.[id number] [id number] Jul, [address] [id number] [place] [address] Oct, Impacted cerumen, bilateral H61.[address] [id number] [place] [address] Sep, Wellness examination Z00.00 and Lipid screening Z13.[address] [id number] [place] [address] Sep, Wellness examination Z00.00 ; Lipid screening Z13.220 ; Hx of adenomatous colonic polyps Z86.010 and Numbness of right anterior thigh R20.8 IMMUNIZATIONS No Known Immunizations SOCIAL HISTORY Never Assessed REASON FOR VISIT LAB PLAN OF CARE VITAL SIGNS MEDICATIONS Unknown Medications RESULTS Name Result Date Reference Range Lipid Panel 2017-10-07 Cholesterol 201 0-199 Triglycerides 84 0-149 HDL Cholesterol 86 40-84 LDL Cholesterol 98 0-130 VLDL Cholesterol 17 0-28 Cardiac Risk 2.3 0.0-5.0 Non-HDL Cholesterol 2017-10-07 Non-HDL Cholesterol 115 0-159 PROCEDURES Procedure Date Ordered Result Body Site VENIPUNCTURE, COLLECT SPECIMEN Oct 07, 2017 LIPID PANEL Oct 07, 2017 INSTRUCTIONS MEDICATIONS ADMINISTERED No Known Medications MEDICAL (GENERAL) HISTORY Type Description Date Medical History History of colon polyp. IBS. Surgical History colonoscopy, hx of blood tra nsfusion, removal of vocal cord nodules
--- OUTSIDE RECORDS SUMMARY | 2020-02-19 13:33 | XMS REPORT ---
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 Name Role Phone Migration, Doctor Unavailable Unavailable PROBLEMS Type Condition ICD9-CM Code EER08-DZ Code Onset Dates Condition S tatus SNOMED Code Problem Hypercholesteremia E78.00 Active 1 5487174 Problem Hyponatremia E87.1 Active 8666216 8 Problem Depression F32.9 Active 73372854 Problem Diverticulitis K57.92 Active 56182 6006 Problem Degenerative scoliosis M41.9 Active 839913750208759 Problem Anxiety F41.9 Active 34969081 Problem Vitamin D deficiency E55.9 Active 03557308 Problem History of spinal fusion for scoliosis Z98.1 Active 279492591 Problem History of hypertension Z86.79 Active [id number] ALLERGIES No Information ENCOUNTERS Encounter Location Date Diagnosis [facility] [address] [id number] [address] [place] [address] Feb, [facility] [address] [id number] [address] [place] [address] Oct, Degenerative scoliosis M41.9 and Anxiety F41.9 [facility] [address] [id number] [address] [place] [address] Oct, [facility] [address] [id number] [address] [place] [address] Jul, Hypercholesteremia E78.00 ; Depression F32.9 ; Vitamin D deficiency E55.9 ; Anxiety F41.9 and History of spinal fusion for scoliosis Z98.1 [facility] [address] [facility] [id number] [address] [place] [address] Apr, Anxiety F41.9 ; History of s arabella fusion for scoliosis Z98.1 and Long-term use of high-risk medication Z79.899 [facility] [address] [id number] [address] [place] [address] 02 Nov, 2018 Depression F32.9 [place] [id number] [place] [address] Oct, Depression F32.9 ; Anxiety F 41.9 ; History of spinal fusion for scoliosis Z98.1 and History of hypertension Z86.[address] [facility] [id number] [place] [address] Sep, Dysuria R30.0 and Acute cyst itis with hematuria N30.01 [facility] [address] [address] Aug, [place] [address] [address] Jul, Depression F32.9 and Diverti culitis K57.92 [place] [address] [address] May, Hyponatremia E87.1 [facility] [address] [address] May, [facility] [address] [address] Apr, Vasovagal syncope R55 ; Diar jose of presumed infectious origin R19.7 ; Black eye of left side, initial encounter S00.12XA ; Skin tear of left forearm without complication, initial encounter S51.812A ; Dehydration E86.0 ; Vitamin D deficiency E55.9 and Weight loss R63.4 [facility] [address] [address] Apr, Vitamin D deficiency E55.9 ; History of spinal fusion for scoliosis Z98.1 ; Anxiety F41.9 and Depression F32.9 [place] [address] [address] Jan, Essential hypertension I10 ; Depression F32.9 ; Anxiety F41.9 ; History of hypertension Z86.79 ; History of anemia Z86.2 and Hyponatremia E87.1 [facility] [address] [id number] [address] [place] [address] Dec, Hyponatremia E87.1 [facility] [address] [id number] [address] [place] [address] Dec, Fever, unspecified fever cau se R50.9 and Acute nasopharyngitis J00 [facility] [address] [address] Nov, Hyponatremia E87.1 [facility] [address] [address] Oct, Essential hypertension I10 ; Long-term use of high-risk medication Z79.899 and Vitamin D deficiency E55.9 [place] [address] [address] Oct, Essential hypertension I10 ; Depression F32.9 ; Anxiety F41.9 ; Long-term use of high-risk medication Z79.899 and Vitamin D deficiency E55.9 [place] [address] [address] Jun, History of spinal fusion for scoliosis Z98.1 ; Postoperative anemia D64.9 ; Essential hypertension I10 ; Depression F32.9 and Anxiety F41.9 [place] [id number] [place] [address] Jun, History of spinal fusion for scoliosis Z98.1 ; Postoperative anemia D64.9 ; Essential hypertension I10 ; Depression F32.9 and Anxiety F41.9 [place] [address] [address] May, History of spinal fusion for scoliosis Z98.1 ; Postoperative anemia D64.9 ; Essential hypertension I10 ; Depression F32.9 and Anxiety F41.9 [place] [address] [address] May, [facility] [address] [id number] [address] [place] [address] Apr, Dysuria R30.0 and Acute cyst itis with hematuria N30.01 [facility] [address] [id number] [address] [place] [address] Apr, [facility] [address] [id number] [address] [place] [address] Apr, [facility] [address] [id number] [address] [place] [address] Apr, [facility] [address] [id number] [address] [place] [address] Apr, Anxiety F41.9 [facility] [address] [id number] [address] [place] [address] Feb, Anxiety F41.9 [facility] [address] [id number] [address] [place] [address] Jan, [facility] [address] [id number] [address] [place] [address] Jan, Severe scoliosis M41.9 [facility] [address] [id number] [address] [place] [address] Jan, [facility] [address] [id number] [address] [place] [address] Jan, Tremor of unknown origin R25 .1 ; Headache, unspecified headache type R51 ; Balance problem R26.89 ; Degenerative scoliosis M41.9 ; Pain in right hip M25.551 and Pain in left hip M25.552 [facility] [address] [id number] [address] [place] [address] Jan, Tremor of unknown origin R25 .1 ; Headache, unspecified headache type R51 ; Balance problem R26.89 ; Degenerative scoliosis M41.9 ; Pain in right hip M25.551 and Pain in left hip M25.552 [facility] [address] [id number] [address] [place] [address] Jan, [facility] [address] [address] Oct, Essential hypertension I10 ; Vitamin D deficiency E55.9 ; Depression F32.9 ; Anxiety F41.9 ; Lumbar pain M54.5 and Screening for colon cancer Z12.11 [place] [address] [address] Aug, [place] [address] [address] Dec, [place] [address] [address] Dec, [place] M20.[address] [address] Oct, [facility] [address] [address] Oct, Essential hypertension I10 ; Vitamin D deficiency E55.9 ; Depression F32.9 ; Anxiety F41.9 ; Lumbar pain M54.5 and Hammer toe of left foot M20.42 [place] [address] [id number] [place] [address] Sep, Acute upper respiratory infe ction, unspecified J06.9 and Other viral agents as the cause of diseases classified elsewhere B97.89 [facility] [address] [id number] [address] [place] [id number] Apr, Dental examination V72.2 [facility] [address] [id number] Apr, Dental examination V72.2 [facility] [id number] [place] [id number] Apr, Dental examination V72.2 [facility] [address] [id number] [address] [place] [id number] Apr, Dental examination V72.2 [facility] [address] [id number] [address] [place] [address] [id number] March, Dental examination V72.2 [facility] [address] [id number] [address] [place] [address], [place] [address] March, [facility] [address] [id number] [address] [place] [address], [place] [address] Feb, [facility] [address] [id number] [address] [place] [address], [place] [address] Feb, [facility] [address] [id number] [address] [place] [address], [place] [address] Oct, [facility] [address] [id number] [address] [place] [address], [place] [address] Oct, [facility] [address] [id number] [address] [place] [address], [place] [address] Sep, [facility] [address] [id number] [address] [place] [address] Sep, [facility] [address] [id number] [address] [place] [address], [place] [address] Sep, [facility] [address] [id number] [address] [place] [address] Sep, [facility] [address] [id number] [address] [place] [address], [place] [address] Aug, [facility] [address] [id number] [address] [place] [address] Aug, [facility] [address] [id number] [address] [place] [address], [place] [address] Jul, [facility] [address] [id number] [address] [place] [address] Jul, [facility] [address] [id number] [address] [place] [address] Jun, [facility] [address] [id number] [address] [place] [address], [place] [address] Jun, [facility] [address] [id number] [address] [place] [address], [place] [address] May, [facility] [address] [id number] [address] [place] [address], [place] [address] May, [facility] [address] [id number] [address] [place] [address], [place] [address] May, [facility] [address] [id number] [address] [place] [address], [place] [address] May, [facility] [address] [id number] [address] [place] [address], [place] [address] May, [facility] [address] [id number] [address] [place] [address], [place] [address] May, [facility] [address] [id number] [address] [place] [address], [place] [address] Apr, [facility] [address] [id number] [address] [place] [address], [place] [address] Apr, [facility] [address] [id number] [address] [place] [address], [place] [address] March, [facility] [address] [id number] [address] [place] [address], [place] [address] March, [facility] [address] [id number] [address] [place] [address], [place] [address] March, [facility] [address] [id number] [address] [place] [address], [place] [address] March, [facility] [address] [id number] [address] [place] [address], [place] [address] Jan, [facility] [address] [id number] [address] [place] [address], [place] [address] Jan, [facility] [address] [id number] [address] [place] [address], [place] [address] 07 Dec, 2013 [facility] [address] [id number] [address] [place] [address], [place] [address] 07 Dec, 2013 [facility] [address] [id number] [address] [place] [address], [place] [address] Nov, [facility] [address] [id number] [address] [place] [address], [place] [address] Nov, [facility] [address] [id number] [address] [place] [address], [place] [address] Nov, [facility] [address] [id number] [address] [place] [address], [place] [address] Nov, [facility] [address] [id number] [address] [place] [address], [place] [address] Nov, [facility] [address] [id number] [address] [place] [address], [place] [address] Nov, [facility] [address] [id number] [address] [place] [address], [place] [address] Oct, [facility] [address] [id number] [address] [place] [address], [place] [address] Oct, [facility] [address] [id number] [address] [place] [address], [place] [address] Oct, [facility] [address] [id number] [address] [place] [address], [place] [address] Oct, [facility] [address] [id number] [address] [place] [address], [place] [address] Sep, [facility] [address] [id number] [address] [place] [address], [place] [address] Sep, [facility] [address] [id number] [address] [place] [address], [place] [address] Sep, [facility] [address] [id number] [address] [place] [address], [place] [address] Sep, [facility] [address] [id number] [address] [place] [address], [place] [address] Aug, [facility] [address] [id number] [address] [place] [address], [place] [address] Aug, [facility] [address] [id number] [address] [place] [address], [place] [address] Aug, [facility] [address] [id number] [address] [place] [address], [place] [address] Aug, [facility] [address] [id number] [address] [place] [address], [place] [address] Jul, [facility] [address] [id number] [address] [place] [address], [place] [address] Jun, [facility] [address] [id number] [address] [place] [address], [place] [address] Jun, [facility] [address] [id number] [address] [place] [address], [place] [address] Jun, [facility] [address] [id number] [address] [place] [address], [place] [address] Jun, [facility] [address] [id number] [address] [place] [address], [place] [address] Jun, [facility] [address] [id number] [address] [place] [address], [place] [address] May, [facility] [address] [id number] [address] [place] [address], [place] [address] Apr, [facility] [address] [id number] [address] [place] [address], [place] [address] Apr, [facility] [address] [id number] [address] [place] [address], [place] [address] March, [facility] [address] [id number] [address] [place] [address], [place] [address] March, [facility] [address] [id number] [address] [place] [address], [place] [address] March, [facility] [address] [id number] [address] [place] [address], [place] [address] March, [facility] [address] [id number] [address] [place] [address], [place] [address] March, [facility] [address] [id number] [address] [place] [address], [place] [address] Feb, [facility] [address] [id number] [address] [place] [address], [place] [address] Feb, [facility] [address] [id number] [address] [place] [address], [place] [address] 27 Jan, 2013 [facility] [address] [id number] [address] [place] [address], [place] [address] Jan, [facility] [address] [id number] [address] [place] [address], [place] [address] Jan, [facility] [address] [id number] [address] [place] [address], [place] [address] 15 Jan, 2013 [facility] [address] [id number] [address] [place] [address], [place] [address] 15 Jan, 2013 [facility] [address] [id number] [address] [place] [address], [place] [address] 14 Jan, 2013 [facility] [address] [id number] [address] [place] [address], [place] [address] 14 Jan, 2013 [facility] [address] [id number] [address] [place] [address], [place] [address] 13 Jan, 2013 [facility] [address] [id number] [address] [place] [address], [place] [address] 26 Dec, 2012 [facility] [address] [id number] [address] [place] [address], [place] [address] 18 Dec, 2012 [facility] [address] [id number] [address] [place] [address], [place] [address] 15 Dec, 2012 [facility] [address] [id number] [address] [place] [address] 15 Dec, 2012 [facility] [address] [id number] [address] [place] [address] 14 Dec, 2012 [facility] [address] [id number] [address] [place] [address] 13 Dec, 2012 [facility] [address] [facility] [id number] [address] [place] [address] 12 Dec, 2012 [facility] [address] [facility] [id number] [address] [place] [address] 05 Dec, 2012 [facility] [address] [facility] [id number] [address] [place] [address] Nov, [facility] [address] [facility] [id number] [address] [place] [address] Nov, [facility] [address] [facility] [id number] [address] [place] [address] Nov, [facility] [address] [facility] [id number] [address] [place] [address] Nov, IMMUNIZATIONS No Known Immunizations SOCIAL HISTORY Never Assessed REASON FOR VISIT PLAN OF CARE VITAL SIGNS MEDICATIONS Unknown Medications RESULTS No Results PROCEDURES No Known procedures INSTRUCTIONS MEDICATIONS ADMINISTERED No Known Medications MEDICAL (GENERAL) HISTORY Type Description Date Medical History Chronic liver disease Medical History Osteoporosis Medical History Derpression Medical History Generalized anxiety disorder Medical History Nondependent tobacco use disorder Medical History Scoliosis (and kyphoscoliosis), idiopath ic Medical History Essential hypertension, benign Medical History Lumbago Medical History Postoperative anemia Surgical History Otolaryngologic surgery jaw resection, o verbite 1979 Surgical History Arthroscopyof the left knee 2002 Surgical History Back Surgery -spinal fusion - Dr. De Los Santos 04/11/2017 Surgical History left Knee replacment 11/2017 Hospitalization History Surgery(s) only
--- OUTSIDE RECORDS SUMMARY | 2020-02-19 13:34 | XMS REPORT ---
Author Author Sherly Durand Doctor Organization [facility] Address Unknown Phone Unavailable Care Team Providers Care Crimper Assembler Name Role Phone Migration, Doctor Unavailable Unavailable PROBLEMS Type Condition ICD9-CM Code [id number] Code Onset Dates Condition S tatus SNOMED Code Problem Hypercholesteremia E78.00 Active 1 5427367 Problem Hyponatremia E87.1 Active 6520854 8 Problem Depression F32.9 Active 85538358 Problem Diverticulitis K57.92 Active 28127 6006 Problem Degenerative scoliosis M41.9 Active [id number] Problem Anxiety F41.9 Active 98375554 Problem Vitamin D deficiency E55.9 Active 94984734 Problem History of spinal fusion for scoliosis Z98.1 Active 996608244 Problem History of hypertension Z86.79 Active [id number] ALLERGIES No Information ENCOUNTERS Encounter Location Date Diagnosis [facility] [address] [id number] [address] [place] [phone] Feb, [facility] [address] [id number] [address] [place] [id number] Oct, Degenerative scoliosis M41.9 and Anxiety F41.9 [facility] [address] [id number] [address] [place] [id number] Oct, [facility] [address] [id number] [address] [place] [address] Jul, Hypercholesteremia E78.00 ; Depression F32.9 ; Vitamin D deficiency E55.9 ; Anxiety F41.9 and History of spinal fusion for scoliosis Z98.1 [facility] [address] [facility] [id number] [address] [place] [address] Apr, Anxiety F41.9 ; History of s arabella fusion for scoliosis Z98.1 and Long-term use of high-risk medication Z79.899 [facility] [address] [id number] [address] [place] [address] 02 Nov, 2018 Depression F32.9 [place] [id number] [place] [address] Oct, Depression F32.9 ; Anxiety F 41.9 ; History of spinal fusion for scoliosis Z98.1 and History of hypertension Z86.79 [facility] [id number] [place] [phone] Sep, Dysuria R30.0 and Acute cyst itis with hematuria N30.01 [facility] [address] [address] Aug, [place] [address] [address] Jul, Depression F32.9 and Diverti culitis K57.92 [place] [address] [address] May, Hyponatremia E87.1 [facility] [address] [address] May, [facility] [address] [address] Apr, Vasovagal syncope R55 ; Diar jose of presumed infectious origin R19.7 ; Black eye of left side, initial encounter S00.12XA ; Skin tear of left forearm without complication, initial encounter S51.812A ; Dehydration E86.0 ; Vitamin D deficiency E55.9 and Weight loss R63.4 [facility] [address] [address] Apr, Vitamin D deficiency E55.9 ; History of spinal fusion for scoliosis Z98.1 ; Anxiety F41.9 and Depression F32.9 [place] [address] [address] Jan, Essential hypertension I10 ; Depression F32.9 ; Anxiety F41.9 ; History of hypertension Z86.79 ; History of anemia Z86.2 and Hyponatremia E87.1 [facility] [address] [id number] [address] [place] [address] Dec, Hyponatremia E87.1 [facility] [address] [id number] [address] [place] [address] Dec, Fever, unspecified fever cau se R50.9 and Acute nasopharyngitis J00 [facility] [address] [address] Nov, Hyponatremia E87.1 [facility] [address] [address] Oct, Essential hypertension I10 ; Long-term use of high-risk medication Z79.899 and Vitamin D deficiency E55.9 [place] [address] [address] Oct, Essential hypertension I10 ; Depression F32.9 ; Anxiety F41.9 ; Long-term use of high-risk medication Z79.899 and Vitamin D deficiency E55.9 [place] [address] [address] Jun, History of spinal fusion for scoliosis Z98.1 ; Postoperative anemia D64.9 ; Essential hypertension I10 ; Depression F32.9 and Anxiety F41.9 [place] [id number] [place] [address] Jun, History of spinal fusion for scoliosis Z98.1 ; Postoperative anemia D64.9 ; Essential hypertension I10 ; Depression F32.9 and Anxiety F41.9 [place] [address] [address] May, History of spinal fusion for scoliosis Z98.1 ; Postoperative anemia D64.9 ; Essential hypertension I10 ; Depression F32.9 and Anxiety F41.9 [place] [address] [address] May, [facility] [address] [id number] [address] [place] [address] Apr, Dysuria R30.0 and Acute cyst itis with hematuria N30.01 [facility] [address] [id number] [address] [place] [id number] Apr, [facility] [address] [id number] [address] [place] [id number] Apr, [facility] [address] [id number] [address] [place] [address] Apr, [facility] [address] [id number] [address] [place] [address] Apr, Anxiety F41.9 [facility] [address] [id number] [address] [place] [address] Feb, Anxiety F41.9 [facility] [address] [id number] [address] [place] [address] Jan, [facility] [address] [id number] [address] [place] [address] Jan, Severe scoliosis M41.9 [facility] [address] [id number] [address] [place] [address] Jan, [facility] [address] [id number] [address] [place] [address] Jan, Tremor of unknown origin R25 .1 ; Headache, unspecified headache type R51 ; Balance problem R26.89 ; Degenerative scoliosis M41.9 ; Pain in right hip M25.551 and Pain in left hip M25.552 [facility] [address] [id number] [address] [place] [address] Jan, Tremor of unknown origin R25 .1 ; Headache, unspecified headache type R51 ; Balance problem R26.89 ; Degenerative scoliosis M41.9 ; Pain in right hip M25.551 and Pain in left hip M25.552 [facility] [address] [id number] [address] [place] [address] Jan, [facility] [address] [address] Oct, Essential hypertension I10 ; Vitamin D deficiency E55.9 ; Depression F32.9 ; Anxiety F41.9 ; Lumbar pain M54.5 and Screening for colon cancer Z12.11 [place] [address] [address] Aug, [place] [address] [address] Dec, [place] [address] [address] Dec, [place]ert[place] M20.[address] [address] Oct, [facility] [address] [address] Oct, Essential hypertension I10 ; Vitamin D deficiency E55.9 ; Depression F32.9 ; Anxiety F41.9 ; Lumbar pain M54.5 and Hammer toe of left foot M20.42 [place] [id number] [place] [address] Sep, Acute upper respiratory infe ction, unspecified J06.9 and Other viral agents as the cause of diseases classified elsewhere B97.89 [facility] [address] [id number] [address] [place] [id number] Apr, Dental examination V72.2 [facility] [address] [id number] Apr, Dental examination V72.2 [facility] [id number] [place] [address] [id number] Apr, Dental examination V72.2 [facility] [address] [id number] [address] [place] [address] [id number] Apr, Dental examination V72.2 [facility] [address] [id number] [address] [place] [id number] March, Dental examination V72.2 [facility] [address] [id number] [address] [place] [address], [place] [address] March, [facility] [address] [id number] [address] [place] [address], [place] [address] Feb, [facility] [address] [id number] [address] [place] [address], [place] [address] Feb, [facility] [address] [id number] [address] [place] [address], [place] [address] Oct, [facility] [address] [id number] [address] [place] [address], [place] [address] Oct, [facility] [address] [id number] [address] [place] [address], [place] [address] Sep, [facility] [address] [id number] [address] [place] [phone] Sep, [facility] [address] [id number] [address] [place] [address], [place] [id number] Sep, [facility] [address] [id number] [address] [place] [phone] Sep, [facility] [address] [id number] [address] [place] [address], [place] [address] Aug, [facility] [address] [id number] [address] [place] [phone] Aug, [facility] [address] [id number] [address] [place] [address], [place] [address] Jul, [facility] [address] [id number] [address] [place] [phone] Jul, [facility] [address] [id number] [address] [place] [phone] Jun, [facility] [address] [id number] [address] [place] [address], [place] [address] Jun, [facility] [address] [id number] [address] [place] [address], [place] [address] May, [facility] [address] [id number] [address] [place] [address], [place] [id number] May, [facility] [address] [id number] [address] [place] [address], [place] [id number] May, [facility] [address] [id number] [address] [place] [address], [place] [address] May, [facility] [address] [id number] [address] [place] [address], [place] [address] May, [facility] [address] [id number] [address] [place] [address], [place] [address] May, [facility] [address] [id number] [address] [place] [address], [place] [id number] Apr, [facility] [address] [id number] [address] [place] [address], [place] [id number] Apr, [facility] [address] [id number] [address] [place] [address], [place] [address] March, [facility] [address] [id number] [address] [place] [address], [place] [address] March, [facility] [address] [id number] [address] [place] [address], [place] [address] March, [facility] [address] [id number] [address] [place] [address], [place] [address] March, [facility] [address] [id number] [address] [place] [address], [place] [id number] Jan, [facility] [address] [id number] [address] [place] [address], [place] [id number] Jan, [facility] [address] [id number] [address] [place] [address], [place] [id number] 07 Dec, 2013 [facility] [address] [id number] [address] [place] [address], [place] [id number] 07 Dec, 2013 [facility] [address] [id number] [address] [place] [address], [place] [id number] Nov, [facility] [address] [id number] [address] [place] [address], [place] [id number] Nov, [facility] [address] [id number] [address] [place] [address], [place] [id number] Nov, [facility] [address] [id number] [address] [place] [address], [place] [id number] Nov, [facility] [address] [id number] [address] [place] [address], [place] [id number] Nov, [facility] [address] [id number] [address] [place] [address], [place] [id number] Nov, [facility] [address] [id number] [address] [place] [address], [place] [address] Oct, [facility] [address] [id number] [address] [place] [address], [place] [id number] Oct, [facility] [address] [id number] [address] [place] [address], [place] [id number] Oct, [facility] [address] [id number] [address] [place] [address], [place] [id number] Oct, [facility] [address] [id number] [address] [place] [address], [place] [id number] Sep, [facility] [address] [id number] [address] [place] [address], [place] [address] Sep, [facility] [address] [id number] [address] [place] [address], [place] [address] Sep, [facility] [address] [id number] [address] [place] [address], [place] [address] Sep, [facility] [address] [id number] [address] [place] [address], [place] [address] Aug, [facility] [address] [id number] [address] [place] [address], [place] [address] Aug, [facility] [address] [id number] [address] [place] [address], [place] [address] Aug, [facility] [address] [id number] [address] [place] [address], [place] [address] Aug, [facility] [address] [id number] [address] [place] [address], [place] [id number] Jul, [facility] [address] [id number] [address] [place] [address], [place] [address] Jun, [facility] [address] [id number] [address] [place] [address], [place] [id number] Jun, [facility] [address] [id number] [address] [place] [address], [place] [id number] Jun, [facility] [address] [id number] [address] [place] [address], [place] [address] Jun, [facility] [address] [id number] [address] [place] [address], [place] [address] Jun, [facility] [address] [id number] [address] [place] [address], [place] [address] May, [facility] [address] [id number] [address] [place] [address], [place] [address] Apr, [facility] [address] [id number] [address] [place] [address], [place] [address] Apr, [facility] [address] [id number] [address] [place] [address], [place] [address] March, [facility] [address] [id number] [address] [place] [address], [place] [address] March, [facility] [address] [id number] [address] [place] [address], [place] [address] March, [facility] [address] [id number] [address] [place] [address], [place] [address] March, [facility] [address] [id number] [address] [place] [address], [place] [address] March, [facility] [address] [id number] [address] [place] [address], [place] [address] Feb, [facility] [address] [id number] [address] [place] [address], [place] [id number] Feb, [facility] [address] [id number] [address] [place] [address], [place] [id number] 27 Jan, 2013 [facility] [address] [id number] [address] [place] [address], [place] [address] Jan, [facility] [address] [id number] [address] [place] [address], [place] [id number] Jan, [facility] [address] [id number] [address] [place] [address], [place] [id number] 15 Jan, 2013 [facility] [address] [id number] [address] [place] [address], [place] [id number] 15 Jan, 2013 [facility] [address] [id number] [address] [place] [address], [place] [id number] 14 Jan, 2013 [facility] [address] [id number] [address] [place] [address], [place] [address] 14 Jan, 2013 [facility] [address] [id number] [address] [place] [address], [place] [id number] 13 Jan, 2013 [facility] [address] [id number] [address] [place] [address], [place] [id number] 26 Dec, 2012 [facility] [address] [id number] [address] [place] [address], [place] [id number] 18 Dec, 2012 [facility] [address] [id number] [address] [place] [address], [place] [address] 15 Dec, 2012 [facility] [address] [id number] [address] [place] [id number] 15 Dec, 2012 [facility] [address] [id number] [address] [place] [id number] 14 Dec, 2012 [facility] [address] [id number] [address] [place] [id number] 13 Dec, 2012 [facility] [address] [facility] [id number] [address] [place] [id number] 12 Dec, 2012 [facility] [address] [facility] [id number] [address] [place] [id number] 05 Dec, 2012 [facility] [address] [facility] [id number] [address] [place] [id number] Nov, [facility] [address] [facility] [id number] [address] [place] [id number] Nov, [facility] [address] [facility] [id number] [address] [place] [id number] Nov, [facility] [address] [facility] [id number] [address] [place] [id number] Nov, IMMUNIZATIONS No Known Immunizations SOCIAL HISTORY [...]
--- OUTSIDE RECORDS SUMMARY | 2020-02-19 13:34 | XMS REPORT ---
Author Author Sherly Durand Doctor Organization [facility] Address Unknown Phone Unavailable Care Team Providers Care Claims Counsel Name Role Phone Migration, Doctor Unavailable Unavailable PROBLEMS Type Condition ICD9-CM Code [id number] Code Onset Dates Condition S tatus SNOMED Code Problem Hypercholesteremia E78.00 Active 1 1483338 Problem Hyponatremia E87.1 Active 3263692 8 Problem Depression F32.9 Active 30477850 Problem Diverticulitis K57.92 Active 09776 6006 Problem Degenerative scoliosis M41.9 Active [id number] Problem Anxiety F41.9 Active 55376228 Problem Vitamin D deficiency E55.9 Active 85740499 Problem History of spinal fusion for scoliosis Z98.1 Active 414754523 Problem History of hypertension Z86.79 Active [id number] ALLERGIES No Information ENCOUNTERS Encounter Location Date Diagnosis [place] [address] [address] Oct, Degenerative scoliosis M41.9 and Anxiety F41.9 [place] [address] [address] Oct, [place] [address] [address] Jul, Hypercholesteremia E78.00 ; Depression F 32.9 ; Vitamin D deficiency E55.9 ; Anxiety F41.9 and History of spinal fusion for scoliosis Z98.1 [place] [address] [address] Apr, Anxiety F41.9 ; History of spinal fusion for scoliosis Z98.1 and Long- term use of high-risk medication Z79.899 [place] [address] [address] Nov, Depression F32.9 [place] [address] [address] Oct, Depression F32.9 ; Anxiety F41.9 ; Histo ry of spinal fusion for scoliosis Z98.1 and History of hypertension Z86.79 [facility] [address] [facility] [id number] [address] [place] [address] Sep, Dysuria R30.0 and Acute cyst itis with hematuria N30.01 [place] [address] [address] Aug, [place] [address] [address] Jul, Depression F32.9 and Diverticulitis K57. 92 [place] [address] [address] May, Hyponatremia E87.1 [place] [address] [address] May, [place] [address] [address] Apr, Vasovagal syncope R55 ; Diarrhea of pres umed infectious origin R19.7 ; Black eye of left side, initial encounter S00.12XA ; Skin tear of left forearm without complication, initial encounter S51.812A ; Dehydration E86.0 ; Vitamin D deficiency E55.9 and Weight loss R63.4 [place] [address] [address] Apr, Vitamin D deficiency E55.9 ; History of spinal fusion for scoliosis Z98.1 ; Anxiety F41.9 and Depression F32.9 [place] [address] [address] Jan, Essential hypertension I10 ; Depression F32.9 ; Anxiety F41.9 ; History of hypertension Z86.79 ; History of anemia Z86.2 and Hyponatremia E87.1 [place] [address] [address] Dec, Hyponatremia E87.1 [facility] [address] [facility] [id number] [address] [address] Dec, Fever, unspecified fever cau se R50.9 and Acute nasopharyngitis J00 [place] [address] [address] Nov, Hyponatremia E87.1 [place] [address] [address] Oct, Essential hypertension I10 ; Long-term u se of high-risk medication Z79.899 and Vitamin D deficiency E55.9 [place] [address] [address] Oct, Essential hypertension I10 ; Depression F32.9 ; Anxiety F41.9 ; Long- term use of high-risk medication Z79.899 and Vitamin D deficiency E55.9 [place] [address] [address] Jun, History of spinal fusion for scoliosis Z 98.1 ; Postoperative anemia D64.9 ; Essential hypertension I10 ; Depression F32.9 and Anxiety F41.9 [place] [address] [address] Jun, History of spinal fusion for scoliosis Z 98.1 ; Postoperative anemia D64.9 ; Essential hypertension I10 ; Depression F32.9 and Anxiety F41.9 [place] [address] [address] May, History of spinal fusion for scoliosis Z 98.1 ; Postoperative anemia D64.9 ; Essential hypertension I10 ; Depression F32.9 and Anxiety F41.9 [place] [address] [address] May, [facility] [address] [facility] [id number] [place] [address] Apr, Dysuria R30.0 and Acute cyst itis with hematuria N30.01 [place] [address] [address] Apr, [place] [address] [address] Apr, [facility] [address] [address] Apr, [place] [address] [address] Apr, Anxiety F41.9 [place] [address] [address] Feb, Anxiety F41.9 [place] [address] [address] Jan, [place] [address] [address] Jan, Severe scoliosis M41.9 [place] [address] [address] Jan, [place] [address] [address] Jan, Tremor of unknown origin R25.1 ; Headach e, unspecified headache type R51 ; Balance problem R26.89 ; Degenerative scoliosis M41.9 ; Pain in right hip M25.551 and Pain in left hip M25.552 [place] [address] [address] Jan, Tremor of unknown origin R25.1 ; Headach e, unspecified headache type R51 ; Balance problem R26.89 ; Degenerative scoliosis M41.9 ; Pain in right hip M25.551 and Pain in left hip M25.552 [place] [address] [address] Jan, [place] [address] [address] Oct, Essential hypertension I10 ; Vitamin D d eficiency E55.9 ; Depression F32.9 ; Anxiety F41.9 ; Lumbar pain M54.5 and Screening for colon cancer Z12.11 [facility] [address] [address] Aug, [facility] [address] [address] Dec, [facility] [address] [address] Dec, Hammertoe M20.40 [facility] [address] [place] [address] Oct, [address] [address] Oct, Essential hypertension I10 ; Vitamin D d eficiency E55.9 ; Depression F32.9 ; Anxiety F41.9 ; Lumbar pain M54.5 and Hammer toe of left foot M20.[address] [address] Sep, Acute upper respiratory infection, unspe cified J06.9 and Other viral agents as the cause of diseases classified elsewhere B97.89 [facility] [address] [id number] Apr, Dental examination V72.2 [facility] [address] [id number] Apr, Dental examination V72.2 [facility] [address] [id number] Apr, Dental examination V72.2 [facility] [address] [id number] Apr, Dental examination V72.2 [facility] [address] [id number] March, Dental examination V72.2 [facility] [address] [address] March, [facility] [address] [place] [address] Feb, [facility] [address] [id number] [place] [address] Feb, [facility] [address] [id number] [place] [address] Oct, [facility] [address] [id number] [place] [address] Oct, [facility] [address] [id number] [place] [address] Sep, [facility] [address] [id number] [place] [address] Sep, [facility] [address] [id number] [place] [address] Sep, [facility] [address] [id number] [place] [address] Sep, [facility] [address] [id number] [place] [address] Aug, [facility] [address] [id number] [place] [address] Aug, [facility] [address] [id number] [place] [address] Jul, [facility] [address] [id number] [place] [address] Jul, [facility] [address] [id number] [place] [address] Jun, [facility] [address] [id number] [place] [address] Jun, [facility] [address] [id number] [place] [address] May, [facility] [address] [id number] [place] [address] May, [facility] [address] [id number] [place] [address] May, [facility] [address] [id number] [place] [address] May, [facility] [address] [facility] [id number] [place] [address] May, [facility] [address] [facility] [facility] [id number] [place] [address] May, [facility] [address] [id number] [place] [address] Apr, [facility] [address] [id number] [place] [address] Apr, [facility] [address] [facility] [id number] [place] [address] March, [facility] [address] [id number] [place] [address] March, [facility] [address] [id number] [place] [address] March, [facility] [address] [id number] [place] [address] March, [facility] [address] [id number] [place] [address] Jan, [facility] [address] [id number] [place] [address] Jan, [facility] [address] [id number] [place] [address] Dec, [facility] [address] [id number] [place] [address] Dec, [facility] [address] [id number] [place] [address] Nov, [facility] [address] [id number] [place] [address] Nov, [facility] [address] [id number] [place] [address] Nov, [facility] [address] [id number] [place] [address] Nov, [facility] [address] [id number] [place] [address] Nov, [facility] [address] [id number] [place] [address] Nov, [facility] [address] [id number] [place] [address] Oct, [facility] [address] [id number] [place] [address] Oct, [facility] [address] [id number] [place] [address] Oct, [facility] [address] [id number] [place] [address] Oct, [facility] [address] [id number] [place] [address] Sep, [facility] [address] [place] [id number] [place] [address] Sep, [facility] [address] [place] [id number] [place] [address] Sep, [facility] [address] [id number] [place] [address] Sep, [facility] [address] [place] [id number] [place] [address] Aug, [facility] [address] [place] [id number] [place] [address] Aug, [facility] [address] [id number] [place] [address] Aug, [facility] [address] [id number] [place] [address] Aug, [facility] [address] [place] [id number] [place] [address] Jul, [facility] [address] [id number] [place] [address] Jun, [facility] [address] [place] [id number] [place] [address] Jun, [facility] [address] [id number] [place] [address] Jun, [facility] [address] [id number] [place] [address] Jun, [facility] [address] [id number] [place] [address] Jun, [facility] [address] [id number] [place] [address] May, [facility] [address] [id number] [facility] [address] Apr, [facility] [address] [id number] [place] [address] Apr, [facility] [address] [id number] [place] [address] March, [facility] [address] [id number] [place] [address] March, [facility] [address] [id number] [place] [address] March, [facility] [address] [id number] [place] [address] March, [facility] [address] [id number] [place] [address] March, [facility] [address] [id number] [place] [address] Feb, [facility] [address] [id number] [place] [address] Feb, [facility] [address] [id number] [place] [address] Jan, [facility] [address] [id number] [place] [address] Jan, [facility] [address] [id number] [place] [address] Jan, [facility] [address] [id number] [place] [address] 15 Jan, 2013 [facility] [address] [id number] [place] [address] 15 Jan, 2013 [facility] [address] [id number] [place] [address] 14 Jan, 2013 [facility] [address] [id number] [place] [address] 14 Jan, 2013 [facility] [address] [id number] [place] [address] 13 Jan, 2013 [facility] [address] [id number] [place] [address] 26 Dec, 2012 [facility] [address] [id number] [place] [address] 18 Dec, 2012 [facility] [address] [id number] [place] [address] 15 Dec, 2012 [facility] [address] [id number] [place] [address] 15 Dec, 2012 [facility] [address] [id number] [place] [address] 14 Dec, 2012 [facility] [address] [id number] [place] [address] 13 Dec, 2012 [facility] [address] [id number] [place] [address] 12 Dec, 2012 [facility] [address] [id number] [place] [address] 05 Dec, 2012 [facility] [address] [id number] [place] [address] Nov, [facility] [address] [place] [id number] [place] [address] Nov, [facility] [address] [id number] [place] [address] 15 Nov, 2012 [facility] [address] [id number] [place] [address] 10 Nov, 2012 IMMUNIZATIONS No Known Immunizations SOCIAL HISTORY Never Assessed REASON FOR VISIT PLAN OF CARE VITAL SIGNS Height 64 in 2013-12-17 Weight 101 lbs 2013-12-17 Temperature 98 degrees Fahrenheit 2013-12-17 Heart Rate 62 bpm 2013-12-17 Respiratory Rate 22 2013-12-17 Blood pressure systolic 100 mmHg 2013-12-17 Blood pressure diastolic 62 mmHg 2013-12-17 MEDICATIONS No Known Medications RESULTS No Results PROCEDURES No Known [...] History Otolaryngologic surgery jaw resection, o verbite 1978 Surgical History Arthroscopyof the left knee 2002 Surgical History Back Surgery -spinal fusion - Dr. De Los Santos 04/11/2017 Surgical History left Knee replacment 11/2017 Hospitalization History Surgery(s) only
--- OUTSIDE RECORDS SUMMARY | 2020-02-19 13:34 | XMS REPORT ---
Author Author Sherly Durand Doctor Organization [facility] Address Unknown Phone Unavailable Care Team Providers Care Slot Floorman Name Role Phone Migration, Doctor Unavailable Unavailable PROBLEMS Type Condition ICD9-CM Code VGH36-DQ Code Onset Dates Condition S tatus SNOMED Code Problem Hypercholesteremia E78.00 Active 1 9103463 Problem Hyponatremia E87.1 Active 3640568 8 Problem Depression F32.9 Active 09383451 Problem Diverticulitis K57.92 Active 48232 6006 Problem Degenerative scoliosis M41.9 Active [id number] Problem Anxiety F41.9 Active 88502718 Problem Vitamin D deficiency E55.9 Active 10843204 Problem History of spinal fusion for scoliosis Z98.1 Active 227289089 Problem History of hypertension Z86.79 Active 317861128 ALLERGIES No Information ENCOUNTERS Encounter Location Date Diagnosis [place] [address] [address] Feb, [place] [address] [address] Oct, Degenerative scoliosis M41.9 and Anxiety F41.9 [place] [address] [address] Oct, [place] [address] [address] Jul, Hypercholesteremia E78.00 ; Depression F 32.9 ; Vitamin D deficiency E55.9 ; Anxiety F41.9 and History of spinal fusion for scoliosis Z98.1 [place] [address] [address] Apr, Anxiety F41.9 ; History of spinal fusion for scoliosis Z98.1 and Long- term use of high-risk medication Z79.899 [place] [address] [address] Nov, Depression F32.9 [place] [address] [address] Oct, Depression F32.9 ; Anxiety F41.9 ; Histo ry of spinal fusion for scoliosis Z98.1 and History of hypertension Z86.79 [facility] [address] [facility] [id number] [address] [place] [address] Sep, Dysuria R30.0 and Acute cyst itis with hematuria N30.01 [place] [address] [address] Aug, [place] [address] [address] Jul, Depression F32.9 and Diverticulitis K57. 92 [place] [address] [address] May, Hyponatremia E87.1 [place] [address] [address] May, [place] [address] [address] Apr, Vasovagal syncope R55 ; Diarrhea of pres umed infectious origin R19.7 ; Black eye of left side, initial encounter S00.12XA ; Skin tear of left forearm without complication, initial encounter S51.812A ; Dehydration E86.0 ; Vitamin D deficiency E55.9 and Weight loss R63.4 [place] [address] [address] Apr, Vitamin D deficiency E55.9 ; History of spinal fusion for scoliosis Z98.1 ; Anxiety F41.9 and Depression F32.9 [place] [address] [address] Jan, Essential hypertension I10 ; Depression F32.9 ; Anxiety F41.9 ; History of hypertension Z86.79 ; History of anemia Z86.2 and Hyponatremia E87.1 [place] [address] [address] Dec, Hyponatremia E87.1 [facility] [address] [facility] [id number] [address] [place] [address] Dec, Fever, unspecified fever cau se R50.9 and Acute nasopharyngitis J00 [place] [address] [address] Nov, Hyponatremia E87.1 [place] [address] [address] Oct, Essential hypertension I10 ; Long-term u se of high-risk medication Z79.899 and Vitamin D deficiency E55.9 [place] [address] [address] Oct, Essential hypertension I10 ; Depression F32.9 ; Anxiety F41.9 ; Long- term use of high-risk medication Z79.899 and Vitamin D deficiency E55.9 [place] [address] [address] Jun, History of spinal fusion for scoliosis Z 98.1 ; Postoperative anemia D64.9 ; Essential hypertension I10 ; Depression F32.9 and Anxiety F41.9 [place] [address] [address] Jun, History of spinal fusion for scoliosis Z 98.1 ; Postoperative anemia D64.9 ; Essential hypertension I10 ; Depression F32.9 and Anxiety F41.9 [place] [address] [address] May, History of spinal fusion for scoliosis Z 98.1 ; Postoperative anemia D64.9 ; Essential hypertension I10 ; Depression F32.9 and Anxiety F41.9 [place] [address] [address] May, [facility] [address] [facility] [id number] [address] [address] 25 Leon, 2017 Dysuria R30.0 and Acute cyst itis with hematuria N30.01 [facility] [address] [address] 14 Apr, 2017 [facility] [address] [address] Apr, [place] [address] [address] Apr, [place] [address] [address] Apr, Anxiety F41.9 [place] [address] [address] Feb, Anxiety F41.9 [place] [address] [address] Jan, [place] [address] [address] Jan, Severe scoliosis M41.9 [place] [address] [address] Jan, [place] [address] [address] Jan, Tremor of unknown origin R25.1 ; Headach e, unspecified headache type R51 ; Balance problem R26.89 ; Degenerative scoliosis M41.9 ; Pain in right hip M25.551 and Pain in left hip M25.552 [place] [address] [address] Jan, Tremor of unknown origin R25.1 ; Headach e, unspecified headache type R51 ; Balance problem R26.89 ; Degenerative scoliosis M41.9 ; Pain in right hip M25.551 and Pain in left hip M25.552 [place] [address] [address] Jan, [place] [address] [address] Oct, Essential hypertension I10 ; Vitamin D d eficiency E55.9 ; Depression F32.9 ; Anxiety F41.9 ; Lumbar pain M54.5 and Screening for colon cancer Z12.11 [facility] [address] [address] Aug, [facility] [address] [address] Dec, [facility] [address] [address] Dec, Hammertoe M20.40 [place] [address] [address] Oct, [address] [address] Oct, Essential hypertension I10 ; Vitamin D d eficiency E55.9 ; Depression F32.9 ; Anxiety F41.9 ; Lumbar pain M54.5 and Hammer toe of left foot M20.42 [facility] [address] [address] Sep, Acute upper respiratory infection, unspe cified J06.9 and Other viral agents as the cause of diseases classified elsewhere B97.89 [facility] [address] [id number] Apr, Dental examination V72.2 [facility] [address] [id number] Apr, Dental examination V72.2 [facility] [address] [id number] Apr, Dental examination V72.2 [facility] [address] [id number] Apr, Dental examination V72.2 [facility] [address] [id number] March, Dental examination V72.2 [place] [address] [address] March, [facility] [place] [facility] [address] [id number] [place] [address] Feb, [facility] [place] [facility] [address] [id number] [place] [address] Feb, [facility] [place] [facility] [address] [id number] [place] [address] Oct, [facility] [place] [facility] [address] [id number] [place] [address] Oct, [facility] [place] [facility] [address] [id number] [place] [address] Sep, [facility] [place] [facility] [address] [id number] [place] [address] Sep, [facility] [place] [facility] [address] [id number] [place] [address] Sep, [facility] [place] [facility] [address] [id number] [place] [address] Sep, [facility] [place] [facility] [address] [id number] [place] [address] Aug, [facility] [place] [facility] [address] [id number] [place] [address] Aug, [facility] [place] [facility] [address] [id number] [place] [address] Jul, [facility] [place] [address] [id number] [place] [address] Jul, [facility] [place] [facility] [address] [id number] [place] [address] Jun, [facility] [place] [address] [id number] [place] [address] Jun, [facility] [place] [address] [id number] [place] [address] May, [facility] [place] [facility] [address] [id number] [place] [address] May, [facility] [place] [address] [id number] [place] [address] May, [facility] [place] [facility] [address] [facility] [id number] [place] [address] May, [facility] [place] [facility] [address] [facility] [id number] [place] [address] May, [facility] [place] [facility] [address] [id number] [place] [address] May, [facility] [place] [facility] [address] [id number] [place] [address] Apr, [facility] [place] [facility] [address] [facility] [id number] [place] [address] Apr, [facility] [place] [facility] [address] [id number] [place] [address] March, [facility] [place] [address] [id number] [place] [address] March, [facility] [place] [facility] [address] [id number] [place] [address] March, [facility] [place] [facility] [address] [facility] [id number] [place] [address] March, [facility] [place] [address] [id number] [place] [address] Jan, [facility] [place] [address] [id number] [place] [address] Jan, [facility] [place] [address] [id number] [place] [address] 07 Dec, 2013 [facility] [place] [address] [facility] [id number] [place] [address] Dec, [facility] [place] [address] [id number] [place] [address] Nov, [facility] [address] [id number] [place] [address] Nov, [facility] [address] [id number] [place] [address] Nov, [facility] [address] [id number] [place] [address] Nov, [facility] [address] [id number] [place] [address] Nov, [facility] [place] [address] [id number] [place] [address] Nov, [facility] [place] [address] [id number] [place] [address] Oct, [facility] [address] [id number] [place] [address] Oct, [facility] [address] [id number] [place] [address] Oct, [facility] [address] [id number] [place] [address] Oct, [facility] [address] [place] [id number] [place] [address] Sep, [facility] [address] [place] [id number] [place] [address] Sep, [facility] [address] [id number] [place] [address] Sep, [facility] [address] [place] [id number] [place] [address] Sep, [facility] [address] [place] [id number] [place] [address] Aug, [facility] [address] [id number] [place] [address] Aug, [facility] [address] [id number] [place] [address] Aug, [facility] [address] [place] [id number] [place] [address] Aug, [facility] [address] [id number] [place] [address] Jul, [facility] [address] [place] [id number] [place] [address] Jun, [facility] [place] [facility] [address] [id number] [place] [address] Jun, [facility] [address] [id number] [place] [address] Jun, [facility] [place] [address] [id number] [place] [address] Jun, [facility] [place] [facility] [address] [id number] [place] [address] Jun, [facility] [place] [facility] [address] [facility] [id number] [place] [address] May, [facility] [place] [facility] [address] [id number] [place] [address] Apr, [facility] [place] [address] [id number] [place] [address] Apr, [facility] [place] [facility] [address] [id number] [place] [address] March, [facility] [place] [address] [id number] [place] [address] March, [facility] [address] [id number] [place] [address] March, [facility] [place] [facility] [address] [id number] [place] [address] March, [facility] [place] [facility] [address] [id number] [place] [address] March, [facility] [place] [facility] [address] [id number] [place] [address] Feb, [facility] [place] [facility] [address] [id number] [place] [address] Feb, [facility] [place] [facility] [address] [id number] [place] [address] Jan, [facility] [place] [facility] [address] [id number] [place] [address] Jan, [facility] [place] [facility] [address] [id number] [place] [address] 21 Jan, 2013 [facility] [address] [id number] [place] [address] 15 Jan, 2013 [facility] [place] [facility] [address] [id number] [place] [address] 15 Jan, 2013 [facility] [place] [facility] [address] [id number] [place] [address] 14 Jan, 2013 [facility] [place] [facility] [address] [id number] [place] [address] 14 Jan, 2013 [facility] [place] [facility] [address] [id number] [place] [address] 13 Jan, 2013 [facility] [place] [facility] [address] [id number] [place] [address] 26 Dec, 2012 [facility] [place] [facility] [address] [id number] [place] [address] 18 Dec, 2012 [facility] [place] [facility] [address] [id number] [place] [address] 15 Dec, 2012 [facility] [place] [facility] [address] [id number] [place] [address] 15 Dec, 2012 [facility] [place] [facility] [address] [id number] [place] [address] 14 Dec, 2012 [facility] [place] [facility] [address] [id number] [place] [address] 13 Dec, 2012 [facility] [place] [facility] [address] [id number] [place] [address] 12 Dec, 2012 [facility] [place] [facility] [address] [id number] [place] [address] 05 Dec, 2012 [facility] [place] [facility] [address] [id number] [place] [address] Nov, [facility] [place] [facility] [address] [id number] [place] [address] 28 Nov, 2012 [facility] [place] [facility] [address] [id number] [place] [address] 15 Nov, 2012 [facility] [place] [facility] [address] [facility] [id number] [place] [address] 10 Nov, 2012 IMMUNIZATIONS No Known Immunizations [...]
--- OUTSIDE RECORDS SUMMARY | 2020-02-19 13:34 | XMS REPORT ---
Author Author Sherly SANCHEZ Organization [facility] Address [address] [place] [address] Care Team Providers Care Electronics Instructor Name Role Phone DIGNA SANCHEZ Unavailable PROBLEMS Type Condition ICD9-CM Code [id number] Code Onset Dates Condition S tatus SNOMED Code Problem Hypercholesteremia E78.00 Active 1 3160626 Problem Hyponatremia E87.1 Active 4576431 8 Problem Depression F32.9 Active 09158533 Problem Diverticulitis K57.92 Active 55814 6006 Problem Degenerative scoliosis M41.9 Active [id number] Problem Anxiety F41.9 Active 53038306 Problem Vitamin D deficiency E55.9 Active 58673930 Problem History of spinal fusion for scoliosis Z98.1 Active 294690857 Problem History of hypertension Z86.79 Active [id number] ALLERGIES No Information ENCOUNTERS Encounter Location Date Diagnosis [place] [address] [address] Feb, [place] [address] [address] Oct, Degenerative scoliosis M41.9 and Anxiety F41.9 [place] [address] [address] Oct, [place] [address] [address] Jul, Hypercholesteremia E78.00 ; Depression F 32.9 ; Vitamin D deficiency E55.9 ; Anxiety F41.9 and History of spinal fusion for scoliosis Z98.1 [facility] [address] [address] Apr, Anxiety F41.9 ; History of spinal fusion for scoliosis Z98.1 and Long- term use of high-risk medication Z79.899 [place] [address] [address] Nov, Depression F32.9 [place] [address] [address] Oct, Depression F32.9 ; Anxiety F41.9 ; Histo ry of spinal fusion for scoliosis Z98.1 and History of hypertension Z86.79 [facility] [address] [facility] [id number] [address] [place] [address] Sep, Dysuria R30.0 and Acute cyst itis with hematuria N30.01 [place] [address] [address] Aug, [place] [address] [address] Jul, Depression F32.9 and Diverticulitis K57. 92 [place] [address] [address] May, Hyponatremia E87.1 [place] [address] [address] May, [place] [address] [address] Apr, Vasovagal syncope R55 ; Diarrhea of pres umed infectious origin R19.7 ; Black eye of left side, initial encounter S00.12XA ; Skin tear of left forearm without complication, initial encounter S51.812A ; Dehydration E86.0 ; Vitamin D deficiency E55.9 and Weight loss R63.4 [place] [address] [address] Apr, Vitamin D deficiency E55.9 ; History of spinal fusion for scoliosis Z98.1 ; Anxiety F41.9 and Depression F32.9 [place] [address] [address] Jan, Essential hypertension I10 ; Depression F32.9 ; Anxiety F41.9 ; History of hypertension Z86.79 ; History of anemia Z86.2 and Hyponatremia E87.1 [facility] [address] [id number] [place] [address] Dec, Hyponatremia E87.1 [facility] [address] [facility] [id number] [address] [place] [address] Dec, Fever, unspecified fever cau se R50.9 and Acute nasopharyngitis J00 [place] [address] [place] [id number] [place] [address] Nov, Hyponatremia E87.1 [place] [address] [place] [id number] [place] [address] Oct, Essential hypertension I10 ; Long-term u se of high-risk medication Z79.899 and Vitamin D deficiency E55.9 [place] [address] [place] [id number] [place] [address] Oct, Essential hypertension I10 ; Depression F32.9 ; Anxiety F41.9 ; Long- term use of high-risk medication Z79.899 and Vitamin D deficiency E55.9 [place] [address] [id number] [place] [address] Jun, History of spinal fusion for scoliosis Z 98.1 ; Postoperative anemia D64.9 ; Essential hypertension I10 ; Depression F32.9 and Anxiety F41.9 [place] [address] [id number] [place] [address] Jun, History of spinal fusion for scoliosis Z 98.1 ; Postoperative anemia D64.9 ; Essential hypertension I10 ; Depression F32.9 and Anxiety F41.9 [place] [address] [place] [id number] [place] [address] May, History of spinal fusion for scoliosis Z 98.1 ; Postoperative anemia D64.9 ; Essential hypertension I10 ; Depression F32.9 and Anxiety F41.9 [place] [address] [id number] [place] [address] May, [facility] [address] [facility] [id number] [address] [place] [address] Apr, Dysuria R30.0 and Acute cyst itis with hematuria N30.01 [facility] [address] [address] Apr, [facility] [address] [address] Apr, [facility] [address] [address] Apr, [facility] [address] [address] Apr, Anxiety F41.9 [place] [address] [address] Feb, Anxiety F41.9 [place] [address] [address] Jan, [place] [address] [address] Jan, Severe scoliosis M41.9 [place] [address] [address] Jan, [place] [address] [address] Jan, Tremor of unknown origin R25.1 ; Headach e, unspecified headache type R51 ; Balance problem R26.89 ; Degenerative scoliosis M41.9 ; Pain in right hip M25.551 and Pain in left hip M25.552 [place] [address] [address] Jan, Tremor of unknown origin R25.1 ; Headach e, unspecified headache type R51 ; Balance problem R26.89 ; Degenerative scoliosis M41.9 ; Pain in right hip M25.551 and Pain in left hip M25.552 [facility] [address] [address] Jan, [facility] [address] [address] Oct, Essential hypertension I10 ; Vitamin D d eficiency E55.9 ; Depression F32.9 ; Anxiety F41.9 ; Lumbar pain M54.5 and Screening for colon cancer Z12.11 [place] [address] [address] Aug, [place] [address] [address] Dec, [address] [address] Dec, [place] M20.[address] [address] Oct, [address] [address] Oct, Essential hypertension I10 ; Vitamin D d eficiency E55.9 ; Depression F32.9 ; Anxiety F41.9 ; Lumbar pain M54.5 and Hammer toe of left foot M20.[address] [address] Sep, Acute upper respiratory infection, unspe cified J06.9 and Other viral agents as the cause of diseases classified elsewhere B97.89 [facility] [address] [id number] Apr, Dental examination V72.2 [facility] [address] [id number] Apr, Dental examination V72.2 [facility] [address] [id number] Apr, Dental examination V72.2 [facility] [address] [id number] Apr, Dental examination V72.2 [facility] [address] [id number] March, Dental examination V72.2 [place] [address] [id number] [place] [address] March, [facility] [place] [facility] [address] [id number] [place] [address] Feb, [facility] [place] [facility] [address] [id number] [place] [address] Feb, [facility] [place] [facility] [address] [id number] [place] [address] Oct, [facility] [place] [facility] [address] [id number] [place] [address] Oct, [facility] [place] [facility] [address] [id number] [place] [address] Sep, [facility] [place] [facility] [address] [id number] [place] [address] Sep, [facility] [place] [facility] [address] [id number] [place] [address] Sep, [facility] [place] [facility] [address] [id number] [place] [address] Sep, [facility] [place] [facility] [address] [id number] [place] [address] Aug, [facility] [place] [facility] [address] [id number] [place] [address] Aug, [facility] [place] [facility] [address] [id number] [place] [address] Jul, [facility] [place] [facility] [address] [id number] [place] [address] Jul, [facility] [place] [facility] [address] [id number] [place] [address] Jun, [facility] [place] [facility] [address] [id number] [place] [address] Jun, [facility] [place] [facility] [address] [id number] [place] [address] May, [facility] [place] [facility] [address] [id number] [place] [address] May, [facility] [place] [facility] [address] [id number] [place] [address] May, [facility] [place] [facility] [address] [id number] [place] [address] May, [facility] [place] [facility] [address] [id number] [place] [address] May, [facility] [place] [facility] [address] [id number] [place] [address] May, [facility] [place] [facility] [address] [facility] [id number] [place] [address] Apr, [facility] [place] [facility] [address] [id number] [place] [address] Apr, [facility] [place] [facility] [address] [id number] [place] [address] March, [facility] [place] [facility] [address] [id number] [place] [address] March, [facility] [place] [facility] [address] [id number] [place] [address] March, [facility] [place] [facility] [address] [id number] [place] [address] March, [facility] [place] [facility] [address] [id number] [place] [address] Jan, [facility] [place] [facility] [address] [id number] [place] [address] Jan, [facility] [place] [facility] [address] [id number] [place] [address] Dec, [facility] [place] [facility] [address] [id number] [place] [address] Dec, [facility] [place] [facility] [address] [id number] [place] [address] Nov, [facility] [place] [facility] [address] [id number] [place] [address] Nov, [facility] [place] [facility] [address] [id number] [place] [address] 07 Nov, 2013 [facility] [place] [facility] [address] [id number] [place] [address] Nov, [facility] [place] [facility] [address] [id number] [place] [address] Nov, [facility] [place] [facility] [address] [id number] [place] [address] Nov, [facility] [place] [facility] [address] [id number] [place] [address] Oct, [facility] [place] [facility] [address] [id number] [place] [address] Oct, [facility] [place] [facility] [address] [id number] [place] [address] Oct, [facility] [place] [facility] [address] [id number] [place] [address] Oct, [facility] [place] [facility] [address] [id number] [place] [address] Sep, [facility] [place] [facility] [address] [id number] [place] [address] Sep, [facility] [place] [facility] [address] [id number] [place] [address] Sep, [facility] [place] [facility] [address] [id number] [place] [address] Sep, [facility] [place] [facility] [address] [id number] [place] [address] Aug, [facility] [place] [facility] [address] [id number] [place] [address] Aug, [facility] [place] [facility] [address] [place] [id number] [place] [address] Aug, [facility] [place] [facility] [address] [id number] [place] [address] Aug, [facility] [place] [facility] [address] [id number] [place] [address] Jul, [facility] [place] [facility] [address] [id number] [place] [address] Jun, [facility] [place] [facility] [address] [id number] [place] [address] Jun, [facility] [place] [facility] [address] [id number] [place] [address] Jun, [facility] [place] [facility] [address] [id number] [place] [address] Jun, [facility] [place] [facility] [address] [id number] [place] [address] Jun, [facility] [place] [facility] [address] [id number] [place] [address] May, [facility] [place] [facility] [address] [id number] [place] [address] Apr, [facility] [place] [facility] [address] [id number] [place] [address] Apr, [facility] [place] [facility] [address] [id number] [place] [address] March, [facility] [place] [facility] [address] [id number] [place] [address] March, [facility] [place] [facility] [address] [id number] [place] [address] March, [facility] [place] [facility] [address] [id number] [place] [address] March, [facility] [place] [facility] [address] [id number] [place] [address] March, [facility] [place] [facility] [address] [id number] [place] [address] Feb, [facility] [place] [facility] [address] [id number] [place] [address] Feb, [facility] [place] [facility] [address] [id number] [place] [address] Jan, [facility] [place] [facility] [address] [id number] [place] [address] 25 Jan, 2013 [facility] [place] [facility] [address] [facility] [id number] [facility] [place] [address] 21 Jan, 2013 [facility] [place] [facility] [address] [facility] [id number] [place] [address] 15 Jan, 2013 [facility] [place] [facility] [address] [facility] [id number] [facility] [place] [address] 15 Jan, 2013 [facility] [place] [facility] [address] [id number] [facility] [place] [address] 14 Jan, 2013 [facility] [place] [facility] [address] [facility] [id number] [place] [address] 14 Jan, 2013 [facility] [place] [facility] [address] [id number] [facility] [place] [address] 13 Jan, 2013 [facility] [place] [facility] [address] [id number] [facility] [place] [address] 26 Dec, 2012 [facility] [place] [facility] [address] [id number] [facility] [place] [address] 18 Dec, 2012 [facility] [place] [facility] [address] [id number] [facility] [place] [address] 15 Dec, 2012 [facility] [place] [facility] [address] [id number] [facility] [place] [address] 15 Dec, 2012 [facility] [place] [facility] [address] [id number] [facility] [place] [address] 14 Dec, 2012 [facility] [place] [facility] [address] [id number] [facility] [place] [address] 13 Dec, 2012 [facility] [place] [facility] [address] [facility] [id number] [facility] [place] [address] 12 Dec, 2012 [facility] [place] [facility] [address] [id number] [place] [address] 05 Dec, 2012 [facility] [place] [facility] [address] [id number] [facility] [place] [address] 28 Nov, 2012 [facility] [place] [facility] [address] [id number] [place] [address] Nov, [facility] [place] [facility] [address] [facility] [id number] [place] [address] 15 Nov, 2012 [facility] [address] [facility] [id number] [place] [address] Nov, IMMUNIZATIONS No Known Immunizations SOCIAL HISTORY [...]
--- OUTSIDE RECORDS SUMMARY | 2020-02-19 13:34 | XMS REPORT ---
Author Author Sherly Durand Doctor Organization [facility] Address Unknown Phone Unavailable Care Team Providers Care Radiology Administrator Name Role Phone Migration, Doctor Unavailable Unavailable PROBLEMS Type Condition ICD9-CM Code QSB22-AD Code Onset Dates Condition S tatus SNOMED Code Problem Hypercholesteremia E78.00 Active 1 1452859 Problem Hyponatremia E87.1 Active 0671116 8 Problem Depression F32.9 Active 64316788 Problem Diverticulitis K57.92 Active 91326 6006 Problem Degenerative scoliosis M41.9 Active [id number] Problem Anxiety F41.9 Active 65615090 Problem Vitamin D deficiency E55.9 Active 38054666 Problem History of spinal fusion for scoliosis Z98.1 Active 150580036 Problem History of hypertension Z86.79 Active 388902312 ALLERGIES No Information ENCOUNTERS Encounter Location Date Diagnosis [place] [address] [address] Oct, Degenerative scoliosis M41.9 and Anxiety F41.9 [place] [address] [address] Oct, [place] [address] [address] Jul, Hypercholesteremia E78.00 ; Depression F 32.9 ; Vitamin D deficiency E55.9 ; Anxiety F41.9 and History of spinal fusion for scoliosis Z98.1 [place] [address] [address] Apr, Anxiety F41.9 ; History of spinal fusion for scoliosis Z98.1 and Long- term use of high-risk medication Z79.899 [place] [address] [address] Nov, Depression F32.9 [place] [address] [address] Oct, Depression F32.9 ; Anxiety F41.9 ; Histo ry of spinal fusion for scoliosis Z98.1 and History of hypertension Z86.79 [facility] [address] [facility] [id number] [address] [place] [address] Sep, Dysuria R30.0 and Acute cyst itis with hematuria N30.01 [place] [address] [address] Aug, [place] [address] [address] Jul, Depression F32.9 and Diverticulitis K57. 92 [place] [address] [address] May, Hyponatremia E87.1 [place] [address] [address] May, [place] [address] [address] Apr, Vasovagal syncope R55 ; Diarrhea of pres umed infectious origin R19.7 ; Black eye of left side, initial encounter S00.12XA ; Skin tear of left forearm without complication, initial encounter S51.812A ; Dehydration E86.0 ; Vitamin D deficiency E55.9 and Weight loss R63.4 [place] [address] [address] Apr, Vitamin D deficiency E55.9 ; History of spinal fusion for scoliosis Z98.1 ; Anxiety F41.9 and Depression F32.9 [place] [address] [address] Jan, Essential hypertension I10 ; Depression F32.9 ; Anxiety F41.9 ; History of hypertension Z86.79 ; History of anemia Z86.2 and Hyponatremia E87.1 [place] [address] [address] Dec, Hyponatremia E87.1 [facility] [address] [facility] [id number] [address] [place] [address] Dec, Fever, unspecified fever cau se R50.9 and Acute nasopharyngitis J00 [place] [address] [address] Nov, Hyponatremia E87.1 [place] [address] [address] Oct, Essential hypertension I10 ; Long-term u se of high-risk medication Z79.899 and Vitamin D deficiency E55.9 [place] [address] [address] Oct, Essential hypertension I10 ; Depression F32.9 ; Anxiety F41.9 ; Long- term use of high-risk medication Z79.899 and Vitamin D deficiency E55.9 [place] [address] [address] Jun, History of spinal fusion for scoliosis Z 98.1 ; Postoperative anemia D64.9 ; Essential hypertension I10 ; Depression F32.9 and Anxiety F41.9 [place] [address] [address] Jun, History of spinal fusion for scoliosis Z 98.1 ; Postoperative anemia D64.9 ; Essential hypertension I10 ; Depression F32.9 and Anxiety F41.9 [place] [address] [address] May, History of spinal fusion for scoliosis Z 98.1 ; Postoperative anemia D64.9 ; Essential hypertension I10 ; Depression F32.9 and Anxiety F41.9 [place] [address] [address] May, [facility] [address] [facility] [id number] [address] [place] [address] Apr, Dysuria R30.0 and Acute cyst itis with hematuria N30.01 [place] [address] [address] Apr, [place] [address] [address] Apr, [facility] [address] [address] Apr, [place] [address] [address] Apr, Anxiety F41.9 [place] [address] [address] Feb, Anxiety F41.9 [place] [address] [address] Jan, [place] [address] [address] Jan, Severe scoliosis M41.9 [place] [address] [address] Jan, [place] [address] [address] Jan, Tremor of unknown origin R25.1 ; Headach e, unspecified headache type R51 ; Balance problem R26.89 ; Degenerative scoliosis M41.9 ; Pain in right hip M25.551 and Pain in left hip M25.552 [place] [address] [address] Jan, Tremor of unknown origin R25.1 ; Headach e, unspecified headache type R51 ; Balance problem R26.89 ; Degenerative scoliosis M41.9 ; Pain in right hip M25.551 and Pain in left hip M25.552 [place] [address] [address] Jan, [place] [address] [address] Oct, Essential hypertension I10 ; Vitamin D d eficiency E55.9 ; Depression F32.9 ; Anxiety F41.9 ; Lumbar pain M54.5 and Screening for colon cancer Z12.11 [facility] [address] [address] Aug, [facility] [address] [address] Dec, [facility] [address] [address] Dec, Hammertoe M20.40 [facility] [address] [place] [address] Oct, [address] [address] Oct, Essential hypertension I10 ; Vitamin D d eficiency E55.9 ; Depression F32.9 ; Anxiety F41.9 ; Lumbar pain M54.5 and Hammer toe of left foot M20.[address] [address] Sep, Acute upper respiratory infection, unspe cified J06.9 and Other viral agents as the cause of diseases classified elsewhere B97.89 [facility] [address] [id number] Apr, Dental examination V72.2 [facility] [address] [id number] Apr, Dental examination V72.2 [facility] [address] [id number] Apr, Dental examination V72.2 [facility] [address] [id number] Apr, Dental examination V72.2 [facility] [address] [id number] March, Dental examination V72.2 [facility] [address] [address] March, [facility] [address] [place] [address] Feb, [facility] [id number] [place] [address] Feb, [facility] [id number] [place] [address] Oct, [facility] [id number] [place] [address] Oct, [facility] [id number] [place] [address] Sep, [facility] [id number] [place] [address] Sep, [facility] [id number] [place] [address] Sep, [facility] [id number] [place] [address] Sep, [facility] [id number] [place] [address] Aug, [facility] [id number] [place] [address] Aug, [facility] [id number] [place] [address] Jul, [facility] [id number] [place] [address] Jul, [facility] [id number] [place] [address] Jun, [facility] [id number] [place] [address] Jun, [facility] [id number] [place] [address] May, [facility] [id number] [place] [address] May, [facility] [id number] [place] [address] May, [facility] [id number] [place] [address] May, [facility] [address] [facility] [id number] [place] [address] May, [facility] [address] [facility] [id number] [place] [address] May, [facility] [id number] [place] [address] Apr, [facility] [id number] [place] [address] Apr, [facility] [address] [facility] [id number] [place] [address] March, [facility] [id number] [place] [address] March, [facility] [id number] [place] [address] March, [facility] [id number] [place] [address] March, [facility] [id number] [place] [address] Jan, [facility] [id number] [place] [address] Jan, [facility] [id number] [place] [address] Dec, [facility] [id number] [place] [address] Dec, [facility] [id number] [place] [address] Nov, [facility] [id number] [place] [address] Nov, [facility] [id number] [place] [address] Nov, [facility] [id number] [place] [address] Nov, [facility] [id number] [place] [address] Nov, [facility] [id number] [place] [address] Nov, [facility] [id number] [place] [address] Oct, [facility] [id number] [place] [address] Oct, [facility] [id number] [place] [address] Oct, [facility] [id number] [place] [address] Oct, [facility] [id number] [place] [address] Sep, [facility] [address] [place] [id number] [place] [address] Sep, [facility] [address] [place] [id number] [place] [address] Sep, [facility] [id number] [place] [address] Sep, [facility] [address] [place] [id number] [place] [address] Aug, [facility] [address] [place] [id number] [place] [address] Aug, [facility] [id number] [place] [address] Aug, [facility] [id number] [place] [address] Aug, [facility] [address] [place] [id number] [place] [address] Jul, [facility] [id number] [place] [address] Jun, [facility] [address] [place] [id number] [place] [address] Jun, [facility] [address] [id number] [place] [address] Jun, [facility] [id number] [place] [address] Jun, [facility] [id number] [place] [address] Jun, [facility] [id number] [place] [address] May, [facility] [id number] [facility] [place] [address] Apr, [facility] [id number] [place] [address] Apr, [facility] [id number] [place] [address] March, [facility] [id number] [place] [address] March, [facility] [id number] [place] [address] March, [facility] [id number] [place] [address] March, [facility] [id number] [place] [address] March, [facility] [id number] [place] [address] Feb, [facility] [id number] [place] [address] Feb, [facility] [id number] [place] [address] Jan, [facility] [id number] [place] [address] Jan, [facility] [id number] [place] [address] Jan, [facility] [id number] [place] [address] 15 Jan, 2013 [facility] [id number] [place] [address] 15 Jan, 2013 [facility] [id number] [place] [address] 14 Jan, 2013 [facility] [id number] [place] [address] 14 Jan, 2013 [facility] [id number] [place] [address] 13 Jan, 2013 [facility] [id number] [place] [address] 26 Dec, 2012 [facility] [id number] [place] [address] 18 Dec, 2012 [facility] [id number] [place] [address] 15 Dec, 2012 [facility] [id number] [place] [address] 15 Dec, 2012 [facility] [id number] [place] [address] 14 Dec, 2012 [facility] [id number] [place] [address] 13 Dec, 2012 [facility] [id number] [place] [address] 12 Dec, 2012 [facility] [id number] [place] [address] 05 Dec, 2012 [facility] [id number] [place] [address] Nov, [facility] [address] [place] [id number] [place] [address] Nov, [facility] [id number] [place] [address] 15 Nov, 2012 [facility] [id number] [place] [address] 10 Nov, 2012 IMMUNIZATIONS No Known Immunizations SOCIAL HISTORY Never Assessed REASON FOR VISIT PLAN OF CARE VITAL SIGNS MEDICATIONS No Known Medications RESULTS No Results [...]
--- OUTSIDE RECORDS SUMMARY | 2020-02-19 13:34 | XMS REPORT ---
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 Name Role Phone Migration, Doctor Unavailable Unavailable PROBLEMS Type Condition ICD9-CM Code SKE95-RL Code Onset Dates Condition S tatus SNOMED Code Problem Hypercholesteremia E78.00 Active 1 6223096 Problem Hyponatremia E87.1 Active 9834234 [id number] Problem Depression F32.9 Active 64006712 Problem Diverticulitis K57.92 Active 95493 6006 Problem Degenerative scoliosis M41.9 Active 822002068433393 Problem Anxiety F41.9 Active 92547123 Problem Vitamin D deficiency E55.9 Active 88588034 Problem History of spinal fusion for scoliosis Z98.1 Active 836107988 Problem History of hypertension Z86.79 Active 086420934 ALLERGIES No Information ENCOUNTERS Encounter Location Date Diagnosis [place] [address] [address] Feb, [place] [address] [address] Oct, Degenerative scoliosis M41.9 and Anxiety F41.9 [place] [address] [address] Oct, [place] [address] [address] Jul, Hypercholesteremia E78.00 ; Depression F 32.9 ; Vitamin D deficiency E55.9 ; Anxiety F41.9 and History of spinal fusion for scoliosis Z98.1 [place] [address] [address] Apr, Anxiety F41.9 ; History of spinal fusion for scoliosis Z98.1 and Long- term use of high-risk medication Z79.899 [place] [address] [address] Nov, Depression F32.9 [place] [address] [address] Oct, Depression F32.9 ; Anxiety F41.9 ; Histo ry of spinal fusion for scoliosis Z98.1 and History of hypertension Z86.79 [facility] [address] [facility] [id number] [address] [place] [address] Sep, Dysuria R30.0 and Acute cyst itis with hematuria N30.01 [place] [address] [address] Aug, [place] [address] [address] Jul, Depression F32.9 and Diverticulitis K57. 92 [place] [address] [address] May, Hyponatremia E87.1 [place] [address] [address] May, [place] [address] [address] Apr, Vasovagal syncope R55 ; Diarrhea of pres umed infectious origin R19.7 ; Black eye of left side, initial encounter S00.12XA ; Skin tear of left forearm without complication, initial encounter S51.812A ; Dehydration E86.0 ; Vitamin D deficiency E55.9 and Weight loss R63.4 [place] [address] [address] Apr, Vitamin D deficiency E55.9 ; History of spinal fusion for scoliosis Z98.1 ; Anxiety F41.9 and Depression F32.9 [place] [address] [address] Jan, Essential hypertension I10 ; Depression F32.9 ; Anxiety F41.9 ; History of hypertension Z86.79 ; History of anemia Z86.2 and Hyponatremia E87.1 [place] [address] [address] Dec, Hyponatremia E87.1 [facility] [address] [facility] [id number] [address] [place] [address] Dec, Fever, unspecified fever cau se R50.9 and Acute nasopharyngitis J00 [place] [address] [address] Nov, Hyponatremia E87.1 [place] [address] [address] Oct, Essential hypertension I10 ; Long-term u se of high-risk medication Z79.899 and Vitamin D deficiency E55.9 [place] [address] [address] Oct, Essential hypertension I10 ; Depression F32.9 ; Anxiety F41.9 ; Long- term use of high-risk medication Z79.899 and Vitamin D deficiency E55.9 [place] [address] [address] Jun, History of spinal fusion for scoliosis Z 98.1 ; Postoperative anemia D64.9 ; Essential hypertension I10 ; Depression F32.9 and Anxiety F41.9 [place] [address] [address] Jun, History of spinal fusion for scoliosis Z 98.1 ; Postoperative anemia D64.9 ; Essential hypertension I10 ; Depression F32.9 and Anxiety F41.9 [place] [address] [address] May, History of spinal fusion for scoliosis Z 98.1 ; Postoperative anemia D64.9 ; Essential hypertension I10 ; Depression F32.9 and Anxiety F41.9 [place] [address] [address] May, [facility] [address] [facility] [id number] [place] [address] 25 Leon, 2017 Dysuria R30.0 and Acute cyst itis with hematuria N30.01 [facility] [address] [address] 14 Apr, 2017 [facility] [address] [address] Apr, [place] [address] [address] Apr, [place] [address] [address] Apr, Anxiety F41.9 [place] [address] [address] Feb, Anxiety F41.9 [place] [address] [address] Jan, [place] [address] [address] Jan, Severe scoliosis M41.9 [place] [address] [address] Jan, [place] [address] [address] Jan, Tremor of unknown origin R25.1 ; Headach e, unspecified headache type R51 ; Balance problem R26.89 ; Degenerative scoliosis M41.9 ; Pain in right hip M25.551 and Pain in left hip M25.552 [place] [address] [address] Jan, Tremor of unknown origin R25.1 ; Headach e, unspecified headache type R51 ; Balance problem R26.89 ; Degenerative scoliosis M41.9 ; Pain in right hip M25.551 and Pain in left hip M25.552 [place] [address] [address] Jan, [place] [address] [address] Oct, Essential hypertension I10 ; Vitamin D d eficiency E55.9 ; Depression F32.9 ; Anxiety F41.9 ; Lumbar pain M54.5 and Screening for colon cancer Z12.11 [facility] [address] [address] Aug, [facility] [address] [address] Dec, [facility] [address] [address] Dec, Hammertoe M20.40 [place] [address] [address] Oct, [address] [address] Oct, Essential hypertension I10 ; Vitamin D d eficiency E55.9 ; Depression F32.9 ; Anxiety F41.9 ; Lumbar pain M54.5 and Hammer toe of left foot M20.42 [facility] [address] [address] Sep, Acute upper respiratory infection, unspe cified J06.9 and Other viral agents as the cause of diseases classified elsewhere B97.89 [facility] [address] [id number] Apr, Dental examination V72.2 [facility] [address] [id number] Apr, Dental examination V72.2 [facility] [address] [id number] Apr, Dental examination V72.2 [facility] [address] [id number] Apr, Dental examination V72.2 [facility] [address] [id number] March, Dental examination V72.2 [place] [address] [address] March, [facility] [address] [id number] [place] [address] Feb, [facility] [address] [id number] [place] [address] Feb, [facility] [address] [facility] [id number] [place] [address] Oct, [facility] [address] [id number] [place] [address] Oct, [facility] [address] [id number] [place] [address] Sep, [facility] [address] [facility] [id number] [place] [address] Sep, [facility] [address] [id number] [place] [address] Sep, [facility] [address] [facility] [id number] [place] [address] Sep, [facility] [address] [facility] [id number] [place] [address] Aug, [facility] [address] [id number] [place] [address] Aug, [facility] [id number] [place] [address] Jul, [facility] [id number] [place] [address] Jul, [facility] [id number] [place] [address] Jun, [facility] [id number] [place] [address] Jun, [facility] [id number] [place] [address] May, [facility] [address] [id number] [place] [address] May, [facility] [id number] [place] [address] May, [facility] [address] [facility] [id number] [place] [address] May, [facility] [address] [facility] [id number] [facility] [place] [address] May, [facility] [id number] [place] [address] May, [facility] [id number] [place] [address] Apr, [facility] [address] [facility] [id number] [place] [address] Apr, [facility] [id number] [place] [address] March, [facility] [id number] [place] [address] March, [facility] [id number] [place] [address] March, [facility] [address] [facility] [id number] [place] [address] March, [facility] [address] [facility] [id number] [place] [address] Jan, [facility] [address] [facility] [id number] [place] [address] Jan, [facility] [address] [id number] [place] [address] 07 Dec, 2013 [facility] [address] [facility] [id number] [place] [address] Dec, [facility] [address] [id number] [place] [address] Nov, [facility] [address] [id number] [place] [address] Nov, [facility] [id number] [place] [address] Nov, [facility] [id number] [place] [address] Nov, [facility] [id number] [place] [address] Nov, [facility] [id number] [place] [address] Nov, [facility] [id number] [place] [address] Oct, [facility] [id number] [place] [address] Oct, [facility] [id number] [place] [address] Oct, [facility] [id number] [place] [address] Oct, [facility] [address] [place] [id number] [place] [address] Sep, [facility] [address] [place] [id number] [place] [address] Sep, [facility] [id number] [place] [address] Sep, [facility] [address] [place] [id number] [place] [address] Sep, [facility] [address] [place] [id number] [place] [address] Aug, [facility] [id number] [place] [address] Aug, [facility] [id number] [place] [address] Aug, [facility] [address] [place] [id number] [place] [address] Aug, [facility] [id number] [place] [address] Jul, [facility] [address] [place] [id number] [place] [address] Jun, [facility] [address] [id number] [place] [address] Jun, [facility] [id number] [place] [address] Jun, [facility] [id number] [place] [address] Jun, [facility] [id number] [place] [address] Jun, [facility] [address] [facility] [id number] [place] [address] May, [facility] [id number] [place] [address] Apr, [facility] [id number] [place] [address] Apr, [facility] [id number] [place] [address] March, [facility] [id number] [place] [address] March, [facility] [id number] [place] [address] March, [facility] [id number] [place] [address] March, [facility] [id number] [place] [address] March, [facility] [id number] [place] [address] Feb, [facility] [id number] [place] [address] Feb, [facility] [id number] [place] [address] Jan, [facility] [id number] [place] [address] Jan, [facility] [id number] [place] [address] 21 Jan, 2013 [facility] [id number] [place] [address] 15 Jan, 2013 [facility] [id number] [facility] [place] [address] 15 Jan, 2013 [facility] [id number] [place] [address] 14 Jan, 2013 [facility] [id number] [place] [address] 14 Jan, 2013 [facility] [id number] [facility] [place] [address] 13 Jan, 2013 [facility] [id number] [place] [address] 26 Dec, 2012 [facility] [id number] [place] [address] 18 Dec, 2012 [facility] [id number] [place] [address] 15 Dec, 2012 [facility] [id number] [place] [address] 15 Dec, 2012 [facility] [id number] [place] [address] 14 Dec, 2012 [facility] [id number] [place] [address] 13 Dec, 2012 [facility] [id number] [place] [address] 12 Dec, 2012 [facility] [id number] [place] [address] 05 Dec, 2012 [facility] [id number] [place] [address] Nov, [facility] [id number] [place] [address] 28 Nov, 2012 [facility] [id number] [place] [address] 15 Nov, 2012 [facility] [address] [facility] [id number] [place] [address] 10 Nov, 2012 IMMUNIZATIONS No Known Immunizations [...]
--- OUTSIDE RECORDS SUMMARY | 2020-02-19 13:35 | XMS REPORT ---
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 Name Role Phone ESTELLA SOTOMAYOR Unavailable PROBLEMS Type Condition ICD9-CM Code [id number] Code Onset Dates Condition S tatus SNOMED Code Problem Hypercholesteremia E78.00 Active 1 4919656 Problem Hyponatremia E87.1 Active 6421004 8 Problem History of hypertension Z86.79 Active 136192398 Problem Diverticulitis K57.92 Active 22633 6006 Problem Depression F32.9 Active 76994070 Problem Anxiety F41.9 Active 21997710 Problem Vitamin D deficiency E55.9 Active 75330535 Problem History of spinal fusion for scoliosis Z98.1 Active [id number] ALLERGIES No Information ENCOUNTERS Encounter Location Date Diagnosis [facility] [address] [facility] [id number] [address] [place] [address] Jul, Hypercholesteremia E78.00 ; Depression F32.9 ; Vitamin D deficiency E55.9 ; Anxiety F41.9 and History of spinal fusion for scoliosis Z98.1 [facility] [address] [facility] [id number] [address] [place] [address] Apr, Anxiety F41.9 ; History of s arabella fusion for scoliosis Z98.1 and Long-term use of high-risk medication Z79.899 [facility] [address] [facility] [id number] [address] [place] [address] Nov, Depression F32.9 [facility] [address] [facility] [id number] [address] [place] [address] Oct, Depression F32.9 ; Anxiety F 41.9 ; History of spinal fusion for scoliosis Z98.1 and History of hypertension Z86.79 [facility] [address] [address] Sep, Dysuria R30.0 and Acute cyst itis with hematuria N30.01 [place] [address] [address] Aug, [place] [address] [address] Jul, Depression F32.9 and Diverti culitis K57.92 [place] [address] [address] May, Hyponatremia E87.1 [place] [address] [address] May, [place] [address] [address] Apr, Vasovagal syncope R55 ; Diar jose of presumed infectious origin R19.7 ; Black eye of left side, initial encounter S00.12XA ; Skin tear of left forearm without complication, initial encounter S51.812A ; Dehydration E86.0 ; Vitamin D deficiency E55.9 and Weight loss R63.4 [place] [address] [address] Apr, Vitamin D deficiency E55.9 ; History of spinal fusion for scoliosis Z98.1 ; Anxiety F41.9 and Depression F32.9 [place] [address] [address] Jan, Essential hypertension I10 ; Depression F32.9 ; Anxiety F41.9 ; History of hypertension Z86.79 ; History of anemia Z86.2 and Hyponatremia E87.1 [place] [address] [address] Dec, Hyponatremia E87.1 [facility] [address] [address] Dec, Fever, unspecified fever cau se R50.9 and Acute nasopharyngitis J00 [place] [address] [place] [address] Nov, Hyponatremia E87.1 [place] [address] [place] [id number] [place] [address] Oct, Essential hypertension I10 ; Long-term use of high-risk medication Z79.899 and Vitamin D deficiency E55.9 [place] [address] [place] [id number] [place] [address] Oct, Essential hypertension I10 ; Depression F32.9 ; Anxiety F41.9 ; Long-term use of high-risk medication Z79.899 and Vitamin D deficiency E55.9 [place] [address] [place] [id number] [place] [address] Jun, History of spinal fusion for scoliosis Z98.1 ; Postoperative anemia D64.9 ; Essential hypertension I10 ; Depression F32.9 and Anxiety F41.9 [place] [address] [address] Jun, History of spinal fusion for scoliosis Z98.1 ; Postoperative anemia D64.9 ; Essential hypertension I10 ; Depression F32.9 and Anxiety F41.9 [place] [address] [address] [place] [id number] [address] [place] [address] May, History of spinal fusion for scoliosis Z98.1 ; Postoperative anemia D64.9 ; Essential hypertension I10 ; Depression F32.9 and Anxiety F41.9 [facility] [address] [place] [address] May, [facility] [address] [place] [id number] [address] [place] [address] Apr, Dysuria R30.0 and Acute cyst itis with hematuria N30.01 [facility] [address] [place] [id number] [address] [place] [address] Apr, [facility] [address] [id number] [address] [place] [address] Apr, [facility] [address] [facility] [id number] [address] [place] [address] Apr, [facility] [address] [facility] [id number] [address] [place] [address] Apr, Anxiety F41.9 [place] [address] [id number] [address] [place] [address] Feb, Anxiety F41.9 [facility] [address] [id number] [address] [place] [address] Jan, [place] [address] [facility] [id number] [address] [place] [address] Jan, Severe scoliosis M41.9 [place] [address] [facility] [id number] [address] [place] [address] Jan, [facility] [address] [facility] [id number] [address] [place] [address] Jan, Tremor of unknown origin R25 .1 ; Headache, unspecified headache type R51 ; Balance problem R26.89 ; Degenerative scoliosis M41.9 ; Pain in right hip M25.551 and Pain in left hip M25.552 [place] [address] [facility] [id number] [address] [place] [address] Jan, Tremor of unknown origin R25 .1 ; Headache, unspecified headache type R51 ; Balance problem R26.89 ; Degenerative scoliosis M41.9 ; Pain in right hip M25.551 and Pain in left hip M25.552 [place] [address] [facility] [id number] [address] [place] [address] Jan, [place] [address] [facility] [id number] [address] [place] [address] Oct, Essential hypertension I10 ; Vitamin D deficiency E55.9 ; Depression F32.9 ; Anxiety F41.9 ; Lumbar pain M54.5 and Screening for colon cancer Z12.11 [facility] [address] [facility] [id number] [address] [place] [address] Aug, [facility] [address] [facility] [id number] [address] [place] [address] Dec, [facility] [address] [facility] [id number] [address] [place] [address] Dec, Hammertoe M20.40 [facility] [address] [facility] [id number] [address] [place] [address] Oct, [facility] [address] [facility] [id number] [place] [address] Oct, Essential hypertension I10 ; Vitamin D deficiency E55.9 ; Depression F32.9 ; Anxiety F41.9 ; Lumbar pain M54.5 and Hammer toe of left foot M20.42 [facility] [address] [place] [id number] [address] [place] [address] Sep, Acute upper respiratory infe ction, unspecified J06.9 and Other viral agents as the cause of diseases classified elsewhere B97.89 [facility] [address] [place] [id number] Apr, Dental examination V72.2 [facility] [address] [id number] [address] [place] [id number] Apr, Dental examination V72.2 [facility] [address] [id number] [address] [place] [address] [id number] Apr, Dental examination V72.2 [facility] [address] [id number] [address] [place] [address] [id number] Apr, Dental examination V72.2 [facility] [address] [place] [id number] [place] [address] [id number] March, Dental examination V72.2 [facility] [address] [facility] [id number] [address] [place] [address] March, [facility] [address] [id number] [address] [place] [address], [place] [address] Feb, [facility] [address] [id number] [address] [place] [address], [place] [address] Feb, [facility] [address] [id number] [address] [place] [address], [place] [address] Oct, [facility] [address] [id number] [address] [place] [address], [place] [address] Oct, [facility] [address] [id number] [address] [place] [address], [place] [address] Sep, [facility] [address] [id number] [address] [place] [address], [place] [address] Sep, [facility] [address] [id number] [address] [place] [address], [place] [address] Sep, [facility] [address] [id number] [address] [place] [address], [place] [address] Sep, [facility] [address] [id number] [address] [place] [address], [place] [address] Aug, [facility] [address] [id number] [address] [place] [address], [place] [address] Aug, [facility] [address] [id number] [address] [place] [address], [place] [address] Jul, [facility] [address] [id number] [address] [place] [address], [place] [address] Jul, [facility] [address] [id number] [address] [place] [address], [place] [address] Jun, [facility] [address] [id number] [address] [place] [address], [place] [address] Jun, [facility] [address] [id number] [address] [place] [address], [place] [address] May, [facility] [address] [id number] [address] [place] [address], [place] [address] May, [facility] [address] [id number] [address] [place] [address], [place] [address] May, [facility] [address] [id number] [address] [place] [address], [place] [address] May, [facility] [address] [id number] [address] [place] [address], [place] [address] May, [facility] [address] [id number] [address] [place] [address], [place] [address] May, [facility] [address] [id number] [address] [place] [address], [place] [address] Apr, [facility] [address] [id number] [address] [place] [address], [place] [address] Apr, [facility] [address] [id number] [address] [place] [address], [place] [address] March, [facility] [address] [id number] [address] [place] [address], [place] [address] March, [facility] [address] [id number] [address] [place] [address], [place] [address] March, [facility] [address] [id number] [address] [place] [address], [place] [address] March, [facility] [address] [id number] [address] [place] [address], [place] [address] Jan, [facility] [address] [id number] [address] [place] [address], [place] [address] Jan, [facility] [address] [id number] [address] [place] [address], [place] [address] Dec, [facility] [address] [id number] [address] [place] [address], [place] [address] Dec, [facility] [address] [id number] [address] [place] [address], [place] [address] Nov, [facility] [address] [id number] [address] [place] [address], [place] [address] Nov, [facility] [address] [id number] [address] [place] [address], [place] [address] Nov, [facility] [address] [id number] [address] [place] [address], [place] [address] Nov, [facility] [address] [id number] [address] [place] [address], [place] [address] Nov, [facility] [address] [id number] [address] [place] [address], [place] [address] Nov, [facility] [address] [id number] [address] [place] [address], [place] [address] Oct, [facility] [address] [id number] [address] [place] [address], [place] [address] Oct, [facility] [address] [id number] [address] [place] [address], [place] [address] Oct, [facility] [address] [id number] [address] [place] [address], [place] [address] Oct, [facility] [address] [id number] [address] [place] [address], [place] [address] Sep, [facility] [address] [id number] [address] [place] [address], [place] [address] Sep, [facility] [address] [id number] [address] [place] [address], [place] [address] Sep, [facility] [address] [id number] [address] [place] [address], [place] [address] Sep, [facility] [address] [id number] [address] [place] [address], [place] [address] Aug, [facility] [address] [id number] [address] [place] [address], [place] [address] Aug, [facility] [address] [id number] [address] [place] [address], [place] [address] Aug, [facility] [address] [id number] [address] [place] [address], [place] [address] Aug, [facility] [address] [id number] [address] [place] [address], [place] [address] Jul, [facility] [address] [id number] [address] [place] [address], [place] [address] Jun, [facility] [address] [id number] [address] [place] [address], [place] [address] Jun, [facility] [address] [id number] [address] [place] [address], [place] [address] Jun, [facility] [address] [id number] [address] [place] [address], [place] [address] Jun, [facility] [address] [id number] [address] [place] [address], [place] [address] Jun, [facility] [address] [id number] [address] [place] [address], [place] [address] May, [facility] [address] [id number] [address] [place] [address], [place] [address] Apr, [facility] [address] [id number] [address] [place] [address], [place] [address] Apr, [facility] [address] [id number] [address] [place] [address], [place] [address] March, [facility] [address] [id number] [address] [place] [address], [place] [address] March, [facility] [address] [id number] [address] [place] [address], [place] [address] March, [facility] [address] [id number] [address] [place] [address], [place] [address] March, [facility] [address] [id number] [address] [place] [address], [place] [address] March, [facility] [address] [id number] [address] [place] [address], [place] [address] 25 Feb, 2013 [facility] [address] [id number] [address] [place] [address], [place] [address] 15 Feb, 2013 [facility] [address] [id number] [address] [place] [address], [place] [address] 27 Jan, 2013 [facility] [address] [id number] [address] [place] [address], [place] [address] 25 Jan, 2013 [facility] [address] [id number] [address] [place] [address], [place] [address] 21 Jan, 2013 [facility] [address] [id number] [address] [place] [address], [place] [address] 15 Jan, 2013 [facility] [address] [id number] [address] [place] [address], [place] [address] 15 Jan, 2013 [facility] [address] [id number] [address] [place] [address], [place] [address] 14 Jan, 2013 [facility] [address] [id number] [address] [place] [address], [place] [address] 14 Jan, 2013 [facility] [address] [id number] [address] [place] [address], [place] [address] 13 Jan, 2013 [facility] [address] [id number] [address] [place] [address], [place] [address] 26 Dec, 2012 [facility] [address] [id number] [address] [place] [address], [place] [address] 18 Dec, 2012 [facility] [address] [id number] [address] [place] [address], [place] [address] 15 Dec, 2012 [facility] [address] [id number] [address] [place] [address], [place] [address] 15 Dec, 2012 [facility] [address] [id number] [address] [place] [address], [place] [address] 14 Dec, 2012 [facility] [address] [id number] [address] [place] [address], [place] [address] 13 Dec, 2012 [facility] [address] [facility] [id number] [address] [place] [address] Dec, [facility] [address] [facility] [id number] [address] [place] [address] Dec, [facility] [address] [facility] [id number] [address] [place] [address] Nov, [facility] [address] [facility] [id number] [address] [place] [address] Nov, [facility] [address] [facility] [id number] [address] [place] [address] Nov, [facility] [address] [facility] [id number] [address] [place] [address] Nov, IMMUNIZATIONS No Known Immunizations SOCIAL HISTORY [...]
--- OUTSIDE RECORDS SUMMARY | 2020-02-19 13:35 | XMS REPORT ---
Author Author Sherly SOTOMAYOR Organization [facility] Address [address] [place] [address] Care Team Providers Care [employer] Specialist Name Role Phone ESTELLA SOTOMAYOR Unavailable PROBLEMS Type Condition ICD9-CM Code IZI90-BY Code Onset Dates Condition S tatus SNOMED Code Problem Hypercholesteremia E78.00 Active 1 5182073 Problem Hyponatremia E87.1 Active 0066253 [id number] Problem Depression F32.9 Active 10024823 Problem Diverticulitis K57.92 Active 25689 6006 Problem Degenerative scoliosis M41.9 Active 180933780360951 Problem Anxiety F41.9 Active 31240891 Problem Vitamin D deficiency E55.9 Active 48972731 Problem History of spinal fusion for scoliosis Z98.1 Active 262191032 Problem History of hypertension Z86.79 Active [id number] ALLERGIES No Information ENCOUNTERS Encounter Location Date Diagnosis [place] [address] [address] Oct, Degenerative scoliosis M41.9 and Anxiety F41.9 [place] [address] [address] Oct, [place] [address] [address] Jul, Hypercholesteremia E78.00 ; Depression F 32.9 ; Vitamin D deficiency E55.9 ; Anxiety F41.9 and History of spinal fusion for scoliosis Z98.1 [place] [address] [address] Apr, Anxiety F41.9 ; History of spinal fusion for scoliosis Z98.1 and Long- term use of high-risk medication Z79.899 [place] [address] [address] Nov, Depression F32.9 [place] [address] [address] Oct, Depression F32.9 ; Anxiety F41.9 ; Histo ry of spinal fusion for scoliosis Z98.1 and History of hypertension Z86.79 [facility] [address] [facility] [id number] [address] [place] [address] Sep, Dysuria R30.0 and Acute cyst itis with hematuria N30.01 [place] [address] [address] Aug, [place] [address] [address] Jul, Depression F32.9 and Diverticulitis K57. 92 [place] [address] [address] May, Hyponatremia E87.1 [place] [address] [address] May, [place] [address] [address] Apr, Vasovagal syncope R55 ; Diarrhea of pres umed infectious origin R19.7 ; Black eye of left side, initial encounter S00.12XA ; Skin tear of left forearm without complication, initial encounter S51.812A ; Dehydration E86.0 ; Vitamin D deficiency E55.9 and Weight loss R63.4 [place] [address] [address] Apr, Vitamin D deficiency E55.9 ; History of spinal fusion for scoliosis Z98.1 ; Anxiety F41.9 and Depression F32.9 [place] [address] [address] Jan, Essential hypertension I10 ; Depression F32.9 ; Anxiety F41.9 ; History of hypertension Z86.79 ; History of anemia Z86.2 and Hyponatremia E87.1 [place] [address] [address] Dec, Hyponatremia E87.1 [facility] [address] [facility] [id number] [address] [place] [address] Dec, Fever, unspecified fever cau se R50.9 and Acute nasopharyngitis J00 [place] [address] [address] Nov, Hyponatremia E87.1 [place] [address] [address] Oct, Essential hypertension I10 ; Long-term u se of high-risk medication Z79.899 and Vitamin D deficiency E55.9 [place] [address] [address] Oct, Essential hypertension I10 ; Depression F32.9 ; Anxiety F41.9 ; Long- term use of high-risk medication Z79.899 and Vitamin D deficiency E55.9 [place] [address] [address] Jun, History of spinal fusion for scoliosis Z 98.1 ; Postoperative anemia D64.9 ; Essential hypertension I10 ; Depression F32.9 and Anxiety F41.9 [place] [address] [address] Jun, History of spinal fusion for scoliosis Z 98.1 ; Postoperative anemia D64.9 ; Essential hypertension I10 ; Depression F32.9 and Anxiety F41.9 [place] [address] [address] May, History of spinal fusion for scoliosis Z 98.1 ; Postoperative anemia D64.9 ; Essential hypertension I10 ; Depression F32.9 and Anxiety F41.9 [place] [address] [address] May, [facility] [address] [facility] [id number] [address] [address] 25 Leon, 2017 Dysuria R30.0 and Acute cyst itis with hematuria N30.01 [facility] [address] [address] 14 Apr, 2017 [facility] [address] [address] Apr, [place] [address] [address] Apr, [place] [address] [address] Apr, Anxiety F41.9 [place] [address] [address] Feb, Anxiety F41.9 [place] [address] [address] Jan, [place] [address] [address] Jan, Severe scoliosis M41.9 [place] [address] [address] Jan, [place] [address] [address] Jan, Tremor of unknown origin R25.1 ; Headach e, unspecified headache type R51 ; Balance problem R26.89 ; Degenerative scoliosis M41.9 ; Pain in right hip M25.551 and Pain in left hip M25.552 [place] [address] [address] Jan, Tremor of unknown origin R25.1 ; Headach e, unspecified headache type R51 ; Balance problem R26.89 ; Degenerative scoliosis M41.9 ; Pain in right hip M25.551 and Pain in left hip M25.552 [place] [address] [address] Jan, [place] [address] [address] Oct, Essential hypertension I10 ; Vitamin D d eficiency E55.9 ; Depression F32.9 ; Anxiety F41.9 ; Lumbar pain M54.5 and Screening for colon cancer Z12.11 [facility] [address] [address] Aug, [facility] [address] [address] Dec, [facility] [address] [address] Dec, Hammertoe M20.40 [place] [address] [address] Oct, [address] [address] Oct, Essential hypertension I10 ; Vitamin D d eficiency E55.9 ; Depression F32.9 ; Anxiety F41.9 ; Lumbar pain M54.5 and Hammer toe of left foot M20.42 [facility] [address] [address] Sep, Acute upper respiratory infection, unspe cified J06.9 and Other viral agents as the cause of diseases classified elsewhere B97.89 [facility] [address] [id number] Apr, Dental examination V72.2 [facility] [address] [id number] Apr, Dental examination V72.2 [facility] [address] [id number] Apr, Dental examination V72.2 [facility] [address] [id number] Apr, Dental examination V72.2 [facility] [address] [id number] March, Dental examination V72.2 [place] [address] [address] March, [facility] [address] [id number] [place] [address] Feb, [facility] [address] [id number] [place] [address] Feb, [facility] [address] [id number] [place] [address] Oct, [facility] [address] [id number] [place] [address] Oct, [facility] [address] [id number] [place] [address] Sep, [facility] [address] [id number] [place] [address] Sep, [facility] [address] [id number] [place] [address] Sep, [facility] [address] [id number] [place] [address] Sep, [facility] [address] [id number] [place] [address] Aug, [facility] [address] [id number] [place] [address] Aug, [facility] [address] [id number] [place] [address] Jul, [facility] [address] [id number] [place] [address] Jul, [facility] [address] [id number] [place] [address] Jun, [facility] [address] [id number] [place] [address] Jun, [facility] [address] [id number] [place] [address] May, [facility] [address] [id number] [place] [address] May, [facility] [address] [id number] [place] [address] May, [facility] [address] [facility] [id number] [place] [address] May, [facility] [address] [facility] [id number] [facility] [facility] [place] [address] May, [facility] [address] [id number] [place] [address] May, [facility] [address] [id number] [place] [address] Apr, [facility] [address] [facility] [id number] [place] [address] Apr, [facility] [address] [id number] [place] [address] March, [facility] [address] [id number] [place] [address] March, [facility] [address] [id number] [place] [address] March, [facility] [address] [facility] [id number] [place] [address] March, [facility] [address] [id number] [place] [address] Jan, [facility] [address] [id number] [place] [address] Jan, [facility] [address] [id number] [place] [address] 07 Dec, 2013 [facility] [address] [facility] [id number] [place] [address] Dec, [facility] [address] [id number] [place] [address] Nov, [facility] [address] [id number] [place] [address] Nov, [facility] [address] [id number] [place] [address] Nov, [facility] [address] [id number] [place] [address] Nov, [facility] [address] [id number] [place] [address] Nov, [facility] [address] [id number] [place] [address] Nov, [facility] [address] [id number] [place] [address] Oct, [facility] [address] [id number] [place] [address] Oct, [facility] [address] [id number] [place] [address] Oct, [facility] [address] [id number] [place] [address] Oct, [facility] [address] [place] [id number] [place] [address] Sep, [facility] [address] [place] [id number] [place] [address] Sep, [facility] [address] [id number] [place] [address] Sep, [facility] [address] [place] [id number] [place] [address] Sep, [facility] [address] [place] [id number] [place] [address] Aug, [facility] [address] [id number] [place] [address] Aug, [facility] [address] [id number] [place] [address] Aug, [facility] [address] [place] [id number] [place] [address] Aug, [facility] [address] [id number] [place] [address] Jul, [facility] [address] [place] [id number] [place] [address] Jun, [facility] [address] [id number] [place] [address] Jun, [facility] [address] [id number] [place] [address] Jun, [facility] [address] [id number] [place] [address] Jun, [facility] [address] [id number] [place] [address] Jun, [facility] [address] [facility] [id number] [place] [address] May, [facility] [address] [id number] [place] [address] Apr, [facility] [address] [id number] [place] [address] Apr, [facility] [address] [id number] [place] [address] March, [facility] [address] [id number] [place] [address] March, [facility] [address] [id number] [place] [address] March, [facility] [address] [id number] [place] [address] March, [facility] [address] [id number] [place] [address] March, [facility] [address] [id number] [place] [address] Feb, [facility] [address] [id number] [place] [address] Feb, [facility] [address] [id number] [place] [address] Jan, [facility] [address] [id number] [place] [address] Jan, [facility] [address] [id number] [place] [address] 21 Jan, 2013 [facility] [address] [id number] [place] [address] 15 Jan, 2013 [facility] [address] [id number] [facility] [facility] [place] [address] 15 Jan, 2013 [facility] [address] [id number] [place] [address] 14 Jan, 2013 [facility] [address] [id number] [place] [address] 14 Jan, 2013 [facility] [address] [id number] [facility] [facility] [place] [address] 13 Jan, 2013 [facility] [address] [id number] [place] [address] 26 Dec, 2012 [facility] [address] [id number] [place] [address] 18 Dec, 2012 [facility] [address] [id number] [place] [address] 15 Dec, 2012 [facility] [address] [id number] [place] [address] 15 Dec, 2012 [facility] [address] [id number] [place] [address] 14 Dec, 2012 [facility] [address] [id number] [place] [address] 13 Dec, 2012 [facility] [address] [id number] [place] [address] 12 Dec, 2012 [facility] [address] [id number] [place] [address] 05 Dec, 2012 [facility] [address] [id number] [place] [address] Nov, [facility] [address] [id number] [place] [address] 28 Nov, 2012 [facility] [address] [id number] [place] [address] 15 Nov, 2012 [facility] [address] [facility] [id number] [place] [address] 10 Nov, 2012 IMMUNIZATIONS No Known Immunizations SOCIAL HISTORY Never Assessed REASON FOR VISIT PLAN OF CARE VITAL SIGNS Height 64 in 2014-05-27 Weight 106.4 lbs 2014-05-27 Temperature 97.6 degrees Fahrenheit 2014-05-27 Heart Rate 82 bpm 2014-05-27 Respiratory Rate 18 2014-05-27 Blood pressure systolic 120 mmHg 2014-05-27 Blood pressure diastolic 80 mmHg 2014-05-27 MEDICATIONS No Known Medications RESULTS No Results PROCEDURES Procedure Date Ordered Result Body Site COMPLETE CBC W/AUTO DIFF WBC May 27, 2014 COMPREHEN METABOLIC PANEL May 27, 2014 VENIPUNCT, ROUTINE* May 27, 2014 INSTRUCTIONS MEDICATIONS ADMINISTERED No Known Medications MEDICAL [...]
--- OUTSIDE RECORDS SUMMARY | 2020-02-19 13:35 | XMS REPORT ---
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 Role Phone DIGNA SANCHEZ Unavailable PROBLEMS Type Condition ICD9-CM Code QFP64-LE Code Onset Dates Condition S tatus SNOMED Code Problem Hypercholesteremia E78.00 Active 1 9375031 Problem Hyponatremia E87.1 Active 3984140 8 Problem Depression F32.9 Active 51559396 Problem Diverticulitis K57.92 Active 36340 6006 Problem Degenerative scoliosis M41.9 Active [id number] Problem Anxiety F41.9 Active 43555735 Problem Vitamin D deficiency E55.9 Active 26530594 Problem History of spinal fusion for scoliosis Z98.1 Active 233616629 Problem History of hypertension Z86.79 Active [id number] ALLERGIES No Information ENCOUNTERS Encounter Location Date Diagnosis [place] [address] [address] Oct, Degenerative scoliosis M41.9 and Anxiety F41.9 [place] [address] [address] Oct, [place] [address] [address] Jul, Hypercholesteremia E78.00 ; Depression F 32.9 ; Vitamin D deficiency E55.9 ; Anxiety F41.9 and History of spinal fusion for scoliosis Z98.1 [place] [address] [address] Apr, Anxiety F41.9 ; History of spinal fusion for scoliosis Z98.1 and Long- term use of high-risk medication Z79.899 [place] [address] [address] Nov, Depression F32.9 [place] [address] [address] Oct, Depression F32.9 ; Anxiety F41.9 ; Histo ry of spinal fusion for scoliosis Z98.1 and History of hypertension Z86.79 [facility] IN [facility] [address] [facility] [id number] [address] [place] [address] Sep, Dysuria R30.0 and Acute cyst itis with hematuria N30.01 [place] [address] [address] Aug, [place] [address] [address] Jul, Depression F32.9 and Diverticulitis K57. 92 [place] [address] [address] May, Hyponatremia E87.1 [place] [address] [address] May, [place] [address] [address] Apr, Vasovagal syncope R55 ; Diarrhea of pres umed infectious origin R19.7 ; Black eye of left side, initial encounter S00.12XA ; Skin tear of left forearm without complication, initial encounter S51.812A ; Dehydration E86.0 ; Vitamin D deficiency E55.9 and Weight loss R63.4 [place] [address] [address] Apr, Vitamin D deficiency E55.9 ; History of spinal fusion for scoliosis Z98.1 ; Anxiety F41.9 and Depression F32.9 [place] [address] [address] Jan, Essential hypertension I10 ; Depression F32.9 ; Anxiety F41.9 ; History of hypertension Z86.79 ; History of anemia Z86.2 and Hyponatremia E87.1 [place] [address] [address] Dec, Hyponatremia E87.1 [facility] [address] [facility] [id number] [address] [place] [address] Dec, Fever, unspecified fever cau se R50.9 and Acute nasopharyngitis J00 [place] [address] [address] Nov, Hyponatremia E87.1 [place] [address] [address] Oct, Essential hypertension I10 ; Long-term u se of high-risk medication Z79.899 and Vitamin D deficiency E55.9 [place] [address] [address] Oct, Essential hypertension I10 ; Depression F32.9 ; Anxiety F41.9 ; Long- term use of high-risk medication Z79.899 and Vitamin D deficiency E55.9 [place] [address] [address] Jun, History of spinal fusion for scoliosis Z 98.1 ; Postoperative anemia D64.9 ; Essential hypertension I10 ; Depression F32.9 and Anxiety F41.9 [place] [address] [address] Jun, History of spinal fusion for scoliosis Z 98.1 ; Postoperative anemia D64.9 ; Essential hypertension I10 ; Depression F32.9 and Anxiety F41.9 [place] [address] [address] May, History of spinal fusion for scoliosis Z 98.1 ; Postoperative anemia D64.9 ; Essential hypertension I10 ; Depression F32.9 and Anxiety F41.9 [place] [address] [address] May, [facility] [address] [facility] [id number] [address] [address] Apr, Dysuria R30.0 and Acute cyst itis with hematuria N30.01 [place] [address] [address] 14 Apr, 2017 [place] [address] [address] Apr, [place] [address] [address] Apr, [place] [address] [address] Apr, Anxiety F41.9 [place] [address] [address] Feb, Anxiety F41.9 [place] [address] [address] Jan, [place] [address] [address] Jan, Severe scoliosis M41.9 [place] [address] [address] Jan, [place] [address] [address] Jan, Tremor of unknown origin R25.1 ; Headach e, unspecified headache type R51 ; Balance problem R26.89 ; Degenerative scoliosis M41.9 ; Pain in right hip M25.551 and Pain in left hip M25.552 [place] [address] [address] Jan, Tremor of unknown origin R25.1 ; Headach e, unspecified headache type R51 ; Balance problem R26.89 ; Degenerative scoliosis M41.9 ; Pain in right hip M25.551 and Pain in left hip M25.552 [place] [address] [address] Jan, [place] [address] [address] Oct, Essential hypertension I10 ; Vitamin D d eficiency E55.9 ; Depression F32.9 ; Anxiety F41.9 ; Lumbar pain M54.5 and Screening for colon cancer Z12.11 [facility] [address] [address] Aug, [facility] [address] [address] Dec, [place] [address] [address] Dec, Hammertoe M20.[address] [address] Oct, [address] [address] Oct, Essential hypertension I10 ; Vitamin D d eficiency E55.9 ; Depression F32.9 ; Anxiety F41.9 ; Lumbar pain M54.5 and Hammer toe of left foot M20.[address] [address] Sep, Acute upper respiratory infection, unspe cified J06.9 and Other viral agents as the cause of diseases classified elsewhere B97.89 [facility] [address] [id number] Apr, Dental examination V72.2 [facility] [address] [id number] Apr, Dental examination V72.2 [facility] [address] [id number] Apr, Dental examination V72.2 [facility] [address] [id number] Apr, Dental examination V72.2 [facility] [address] [id number] March, Dental examination V72.[address] [address] March, [address] [id number] [place] [address] 14 Feb, 2015 [facility] [place] [facility] [address] [id number] [place] [address] Feb, [facility] [place] [facility] [address] [id number] [place] [address] Oct, [facility] [place] [facility] [address] [id number] [place] [address] Oct, [facility] [place] [facility] [address] [id number] [place] [address] Sep, [facility] [place] [facility] [address] [id number] [place] [address] Sep, [facility] [place] [facility] [address] [id number] [place] [address] Sep, [facility] [place] [facility] [address] [id number] [place] [address] Sep, [facility] [place] [facility] [address] [id number] [place] [address] Aug, [facility] [place] [facility] [address] [id number] [place] [address] Aug, [facility] [place] [facility] [address] [id number] [place] [address] Jul, [facility] [place] [facility] [address] [id number] [place] [address] Jul, [facility] [place] [facility] [address] [id number] [place] [address] Jun, [facility] [place] [facility] [address] [id number] [place] [address] Jun, [facility] [place] [facility] [address] [id number] [place] [address] May, [facility] [place] [facility] [address] [id number] [place] [address] May, [facility] [place] [facility] [address] [id number] [place] [address] May, [facility] [place] [facility] [address] [id number] [place] [address] May, [facility] [place] [facility] [address] [facility] [id number] [facility] [place] [address] May, [facility] [place] [facility] [address] [id number] [place] [address] May, [facility] [place] [facility] [address] [id number] [place] [address] Apr, [facility] [place] [facility] [address] [facility] [id number] [place] [address] Apr, [facility] [place] [facility] [address] [id number] [place] [address] March, [facility] [place] [facility] [address] [id number] [place] [address] March, [facility] [place] [facility] [address] [id number] [place] [address] March, [facility] [place] [facility] [address] [id number] [place] [address] March, [facility] [place] [facility] [address] [id number] [place] [address] Jan, [facility] [place] [facility] [address] [id number] [place] [address] Jan, [facility] [place] [facility] [address] [id number] [place] [address] Dec, [facility] [place] [facility] [address] [id number] [place] [address] Dec, [facility] [place] [facility] [address] [id number] [place] [address] Nov, [facility] [place] [facility] [address] [id number] [place] [address] Nov, [facility] [place] [facility] [address] [id number] [place] [address] Nov, [facility] [place] [facility] [address] [id number] [place] [address] Nov, [facility] [place] [facility] [address] [id number] [place] [address] Nov, [facility] [place] [facility] [address] [id number] [place] [address] Nov, [facility] [place] [facility] [address] [id number] [place] [address] Oct, [facility] [place] [facility] [address] [id number] [place] [address] Oct, [facility] [place] [facility] [address] [id number] [place] [address] Oct, [facility] [place] [facility] [address] [id number] [place] [address] Oct, [facility] [place] [facility] [address] [place] [id number] [place] [address] Sep, [facility] [place] [facility] [address] [id number] [place] [address] Sep, [facility] [place] [facility] [address] [id number] [place] [address] Sep, [facility] [place] [facility] [address] [id number] [place] [address] Sep, [facility] [place] [facility] [address] [id number] [place] [address] Aug, [facility] [place] [facility] [address] [id number] [place] [address] Aug, [facility] [place] [facility] [address] [id number] [place] [address] Aug, [facility] [place] [facility] [address] [place] [id number] [place] [address] Aug, [facility] [place] [facility] [address] [id number] [place] [address] Jul, [facility] [place] [facility] [address] [id number] [place] [address] Jun, [facility] [place] [facility] [address] [id number] [place] [address] Jun, [facility] [place] [facility] [address] [id number] [place] [address] Jun, [facility] [place] [facility] [address] [id number] [place] [address] Jun, [facility] [place] [facility] [address] [id number] [place] [address] Jun, [facility] [place] [facility] [address] [id number] [place] [address] May, [facility] [place] [facility] [address] [id number] [place] [address] Apr, [facility] [place] [facility] [address] [id number] [place] [address] Apr, [facility] [place] [facility] [address] [id number] [place] [address] March, [facility] [place] [facility] [address] [id number] [place] [address] March, [facility] [place] [facility] [address] [id number] [place] [address] March, [facility] [place] [facility] [address] [id number] [place] [address] March, [facility] [place] [facility] [address] [id number] [place] [address] March, [facility] [place] [facility] [address] [id number] [place] [address] Feb, [facility] [place] [facility] [address] [id number] [place] [address] Feb, [facility] [place] [facility] [address] [id number] [place] [address] Jan, [facility] [place] [facility] [address] [id number] [place] [address] Jan, [facility] [place] [facility] [address] [id number] [place] [address] 21 Jan, 2013 [facility] [place] [facility] [address] [facility] [id number] [facility] [place] [address] 15 Jan, 2013 [facility] [place] [facility] [address] [facility] [id number] [place] [address] 15 Jan, 2013 [facility] [place] [facility] [address] [facility] [id number] [facility] [place] [address] 14 Jan, 2013 [facility] [place] [facility] [address] [id number] [facility] [place] [address] 14 Jan, 2013 [facility] [place] [facility] [address] [facility] [id number] [place] [address] 13 Jan, 2013 [facility] [place] [facility] [address] [id number] [place] [address] 26 Dec, 2012 [facility] [place] [facility] [address] [id number] [facility] [place] [address] 18 Dec, 2012 [facility] [place] [facility] [address] [id number] [facility] [place] [address] 15 Dec, 2012 [facility] [place] [facility] [address] [id number] [facility] [place] [address] 15 Dec, 2012 [facility] [place] [facility] [address] [id number] [facility] [place] [address] 14 Dec, 2012 [facility] [place] [facility] [address] [id number] [facility] [place] [address] 13 Dec, 2012 [facility] [place] [facility] [address] [id number] [facility] [place] [address] 12 Dec, 2012 [facility] [place] [facility] [address] [facility] [id number] [facility] [place] [address] 05 Dec, 2012 [facility] [place] [facility] [address] [id number] [place] [address] 28 Nov, 2012 [facility] [place] [facility] [address] [facility] [id number] [facility] [place] [address] 28 Nov, 2012 [facility] [place] [facility] [address] [id number] [place] [address] 15 Nov, 2012 [facility] [place] [facility] [address] [facility] [id number] [place] [address] 10 Nov, 2012 IMMUNIZATIONS No Known Immunizations [...]
--- OUTSIDE RECORDS SUMMARY | 2020-02-19 13:35 | XMS REPORT ---
Author Author Sherly SOTOMAYOR Organization [facility] Address [address] [place] [address] Care Team Providers Care Sifting Operator Name Role Phone ESTELLA SOTOMAYOR Unavailable PROBLEMS Type Condition ICD9-CM Code IQL01-AE Code Onset Dates Condition S tatus SNOMED Code Problem Hypercholesteremia E78.00 Active 1 3355305 Problem Hyponatremia E87.1 Active 2533439 8 Problem Depression F32.9 Active 88283208 Problem Diverticulitis K57.92 Active 33824 6006 Problem Degenerative scoliosis M41.9 Active [id number] Problem Anxiety F41.9 Active 11897252 Problem Vitamin D deficiency E55.9 Active 28357060 Problem History of spinal fusion for scoliosis Z98.1 Active 834145190 Problem History of hypertension Z86.79 Active 470037463 ALLERGIES No Information ENCOUNTERS Encounter Location Date Diagnosis [place] [address] [address] Oct, Degenerative scoliosis M41.9 and Anxiety F41.9 [place] [address] [address] Oct, [place] [address] [address] Jul, Hypercholesteremia E78.00 ; Depression F 32.9 ; Vitamin D deficiency E55.9 ; Anxiety F41.9 and History of spinal fusion for scoliosis Z98.1 [place] [address] [address] Apr, Anxiety F41.9 ; History of spinal fusion for scoliosis Z98.1 and Long- term use of high-risk medication Z79.899 [place] [address] [address] Nov, Depression F32.9 [place] [address] [address] Oct, Depression F32.9 ; Anxiety F41.9 ; Histo ry of spinal fusion for scoliosis Z98.1 and History of hypertension Z86.79 [facility] [address] [facility] [id number] [address] [place] [address] Sep, Dysuria R30.0 and Acute cyst itis with hematuria N30.01 [place] [address] [address] Aug, [place] [address] [address] Jul, Depression F32.9 and Diverticulitis K57. 92 [place] [address] [address] May, Hyponatremia E87.1 [place] [address] [address] May, [place] [address] [address] Apr, Vasovagal syncope R55 ; Diarrhea of pres umed infectious origin R19.7 ; Black eye of left side, initial encounter S00.12XA ; Skin tear of left forearm without complication, initial encounter S51.812A ; Dehydration E86.0 ; Vitamin D deficiency E55.9 and Weight loss R63.4 [place] [address] [address] Apr, Vitamin D deficiency E55.9 ; History of spinal fusion for scoliosis Z98.1 ; Anxiety F41.9 and Depression F32.9 [place] [address] [address] Jan, Essential hypertension I10 ; Depression F32.9 ; Anxiety F41.9 ; History of hypertension Z86.79 ; History of anemia Z86.2 and Hyponatremia E87.1 [place] [address] [address] Dec, Hyponatremia E87.1 [facility] [address] [address] [id number] [address] [place] [address] Dec, Fever, unspecified fever cau se R50.9 and Acute nasopharyngitis J00 [place] [address] [address] Nov, Hyponatremia E87.1 [place] [address] [address] Oct, Essential hypertension I10 ; Long-term u se of high-risk medication Z79.899 and Vitamin D deficiency E55.9 [place] [address] [address] Oct, Essential hypertension I10 ; Depression F32.9 ; Anxiety F41.9 ; Long- term use of high-risk medication Z79.899 and Vitamin D deficiency E55.9 [place] [address] [address] Jun, History of spinal fusion for scoliosis Z 98.1 ; Postoperative anemia D64.9 ; Essential hypertension I10 ; Depression F32.9 and Anxiety F41.9 [place] [address] [address] Jun, History of spinal fusion for scoliosis Z 98.1 ; Postoperative anemia D64.9 ; Essential hypertension I10 ; Depression F32.9 and Anxiety F41.9 [place] [address] [address] May, History of spinal fusion for scoliosis Z 98.1 ; Postoperative anemia D64.9 ; Essential hypertension I10 ; Depression F32.9 and Anxiety F41.9 [place] [address] [address] May, [facility] [address] [id number] [address] [address] 25 Leon, 2017 Dysuria R30.0 and Acute cyst itis with hematuria N30.01 [facility] [address] [address] 14 Apr, 2017 [facility] [address] [address] Apr, [place] [address] [address] Apr, [place] [address] [address] Apr, Anxiety F41.9 [place] [address] [address] Feb, Anxiety F41.9 [place] [address] [address] Jan, [place] [address] [address] Jan, Severe scoliosis M41.9 [place] [address] [address] Jan, [place] [address] [address] Jan, Tremor of unknown origin R25.1 ; Headach e, unspecified headache type R51 ; Balance problem R26.89 ; Degenerative scoliosis M41.9 ; Pain in right hip M25.551 and Pain in left hip M25.552 [place] [address] [address] Jan, Tremor of unknown origin R25.1 ; Headach e, unspecified headache type R51 ; Balance problem R26.89 ; Degenerative scoliosis M41.9 ; Pain in right hip M25.551 and Pain in left hip M25.552 [place] [address] [address] Jan, [place] [address] [address] Oct, Essential hypertension I10 ; Vitamin D d eficiency E55.9 ; Depression F32.9 ; Anxiety F41.9 ; Lumbar pain M54.5 and Screening for colon cancer Z12.11 [facility] [address] [address] Aug, [facility] [address] [address] Dec, [facility] [address] [address] Dec, Hammertoe M20.40 [place] [address] [address] Oct, [address] [address] Oct, Essential hypertension I10 ; Vitamin D d eficiency E55.9 ; Depression F32.9 ; Anxiety F41.9 ; Lumbar pain M54.5 and Hammer toe of left foot M20.42 [facility] [address] [address] Sep, Acute upper respiratory infection, unspe cified J06.9 and Other viral agents as the cause of diseases classified elsewhere B97.89 [facility] [address] [id number] Apr, Dental examination V72.2 [facility] [address] [id number] Apr, Dental examination V72.2 [facility] [address] [id number] Apr, Dental examination V72.2 [facility] [address] [id number] Apr, Dental examination V72.2 [facility] [address] [id number] March, Dental examination V72.2 [place] [address] [address] March, [facility] [address] [id number] [place] [address] Feb, [facility] [address] [id number] [place] [address] Feb, [facility] [address] [id number] [place] [address] Oct, [facility] [address] [id number] [place] [address] Oct, [facility] [address] [id number] [place] [address] Sep, [facility] [address] [id number] [place] [address] Sep, [facility] [address] [id number] [place] [address] Sep, [facility] [address] [id number] [place] [address] Sep, [facility] [address] [id number] [place] [address] Aug, [facility] [address] [id number] [place] [address] Aug, [facility] [address] [id number] [place] [address] Jul, [facility] [address] [id number] [place] [address] Jul, [facility] [address] [id number] [place] [address] Jun, [facility] [address] [id number] [place] [address] Jun, [facility] [address] [id number] [place] [address] May, [facility] [address] [id number] [place] [address] May, [facility] [address] [id number] [place] [address] May, [facility] [address] [address] [id number] [place] [address] May, [facility] [address] [address] [id number] [place] [address] May, [facility] [address] [id number] [place] [address] May, [facility] [address] [id number] [place] [address] Apr, [facility] [address] [address] [id number] [place] [address] Apr, [facility] [address] [id number] [place] [address] March, [facility] [address] [id number] [place] [address] March, [facility] [address] [id number] [place] [address] March, [facility] [address] [facility] [address] [id number] [place] [address] March, [facility] [address] [id number] [place] [address] Jan, [facility] [address] [id number] [place] [address] Jan, [facility] [address] [id number] [place] [address] 07 Dec, 2013 [facility] [address] [facility] [id number] [place] [address] Dec, [facility] [address] [id number] [place] [address] Nov, [facility] [address] [id number] [place] [address] Nov, [facility] [address] [id number] [place] [address] Nov, [facility] [address] [id number] [place] [address] Nov, [facility] [address] [id number] [place] [address] Nov, [facility] [address] [id number] [place] [address] Nov, [facility] [address] [id number] [place] [address] Oct, [facility] [address] [id number] [place] [address] Oct, [facility] [address] [id number] [place] [address] Oct, [facility] [address] [id number] [place] [address] Oct, [facility] [address] [place] [id number] [place] [address] Sep, [facility] [address] [place] [id number] [place] [address] Sep, [facility] [address] [id number] [place] [address] Sep, [facility] [address] [place] [id number] [place] [address] Sep, [facility] [address] [place] [id number] [place] [address] Aug, [facility] [address] [id number] [place] [address] Aug, [facility] [address] [id number] [place] [address] Aug, [facility] [address] [place] [id number] [place] [address] Aug, [facility] [address] [id number] [place] [address] Jul, [facility] [address] [place] [id number] [place] [address] Jun, [facility] [address] [id number] [place] [address] Jun, [facility] [address] [id number] [place] [address] Jun, [facility] [address] [id number] [place] [address] Jun, [facility] [address] [id number] [place] [address] Jun, [facility] [address] [facility] [id number] [place] [address] May, [facility] [address] [id number] [place] [address] Apr, [facility] [address] [id number] [place] [address] Apr, [facility] [address] [id number] [place] [address] March, [facility] [address] [id number] [place] [address] March, [facility] [address] [id number] [place] [address] March, [facility] [address] [id number] [place] [address] March, [facility] [address] [id number] [place] [address] March, [facility] [address] [id number] [place] [address] Feb, [facility] [address] [id number] [place] [address] Feb, [facility] [address] [id number] [place] [address] Jan, [facility] [address] [id number] [place] [address] Jan, [facility] [address] [id number] [place] [address] 21 Jan, 2013 [facility] [address] [id number] [place] [address] 15 Jan, 2013 [facility] [address] [id number] [place] [address] 15 Jan, 2013 [facility] [address] [id number] [place] [address] 14 Jan, 2013 [facility] [address] [id number] [place] [address] 14 Jan, 2013 [facility] [address] [id number] [place] [address] 13 Jan, 2013 [facility] [address] [id number] [place] [address] 26 Dec, 2012 [facility] [address] [id number] [place] [address] 18 Dec, 2012 [facility] [address] [id number] [place] [address] 15 Dec, 2012 [facility] [address] [id number] [place] [address] 15 Dec, 2012 [facility] [address] [id number] [place] [address] 14 Dec, 2012 [facility] [address] [id number] [place] [address] 13 Dec, 2012 [facility] [address] [id number] [place] [address] 12 Dec, 2012 [facility] [address] [id number] [place] [address] 05 Dec, 2012 [facility] [address] [id number] [place] [address] Nov, [facility] [address] [id number] [place] [address] 28 Nov, 2012 [facility] [address] [id number] [place] [address] 15 Nov, 2012 [facility] [address] [facility] [id number] [place] [address] 10 Nov, 2012 IMMUNIZATIONS No Known Immunizations [...]
--- OUTSIDE RECORDS SUMMARY | 2020-02-19 13:35 | XMS REPORT ---
Author Author Sherly SOTOMAYOR Organization [facility] [place] Address [address] [place] [address] Care Team Providers Care Application Specialist Name Role Phone ESTELLA SOTOMAYOR Unavailable PROBLEMS Type Condition ICD9-CM Code GFS44-VG Code Onset Dates Condition S tatus SNOMED Code Problem Hypercholesteremia E78.00 Active 1 8402816 Problem Hyponatremia E87.1 Active 3941149 [id number] Problem History of hypertension Z86.79 Active 205709149 Problem Diverticulitis K57.92 Active 61554 6006 Problem Depression F32.9 Active 88879805 Problem Anxiety F41.9 Active 66556424 Problem Vitamin D deficiency E55.9 Active 50056806 Problem History of spinal fusion for scoliosis Z98.1 Active [id number] ALLERGIES No Information ENCOUNTERS Encounter Location Date Diagnosis [facility] [place] [address] [facility] [id number] [address] [place] [address] Jul, Hypercholesteremia E78.00 ; Depression F32.9 ; Vitamin D deficiency E55.9 ; Anxiety F41.9 and History of spinal fusion for scoliosis Z98.1 [facility] [place] [address] [facility] [id number] [address] [place] [address] Apr, Anxiety F41.9 ; History of s arabella fusion for scoliosis Z98.1 and Long-term use of high-risk medication Z79.899 [facility] [place] [address] [facility] [id number] [address] [place] [address] Nov, Depression F32.9 [facility] [place] [address] [facility] [id number] [address] [place] [address] Oct, Depression F32.9 ; Anxiety F 41.9 ; History of spinal fusion for scoliosis Z98.1 and History of hypertension Z86.79 [facility] [address] [address] Sep, Dysuria R30.0 and Acute cyst itis with hematuria N30.01 [place] [address] [address] Aug, [place] [address] [address] Jul, Depression F32.9 and Diverti culitis K57.92 [place] [address] [address] May, Hyponatremia E87.1 [place] [address] [address] May, [place] [address] [address] Apr, Vasovagal syncope R55 ; Diar jose of presumed infectious origin R19.7 ; Black eye of left side, initial encounter S00.12XA ; Skin tear of left forearm without complication, initial encounter S51.812A ; Dehydration E86.0 ; Vitamin D deficiency E55.9 and Weight loss R63.4 [place] [address] [address] Apr, Vitamin D deficiency E55.9 ; History of spinal fusion for scoliosis Z98.1 ; Anxiety F41.9 and Depression F32.9 [place] [address] [address] Jan, Essential hypertension I10 ; Depression F32.9 ; Anxiety F41.9 ; History of hypertension Z86.79 ; History of anemia Z86.2 and Hyponatremia E87.1 [place] [address] [address] Dec, Hyponatremia E87.1 [facility] [address] [address] Dec, Fever, unspecified fever cau se R50.9 and Acute nasopharyngitis J00 [place] [address] [place] [address] Nov, Hyponatremia E87.1 [place] [address] [place] [id number] [place] [address] Oct, Essential hypertension I10 ; Long-term use of high-risk medication Z79.899 and Vitamin D deficiency E55.9 [place] [address] [place] [id number] [place] [address] Oct, Essential hypertension I10 ; Depression F32.9 ; Anxiety F41.9 ; Long-term use of high-risk medication Z79.899 and Vitamin D deficiency E55.9 [place] [address] [place] [id number] [place] [address] Jun, History of spinal fusion for scoliosis Z98.1 ; Postoperative anemia D64.9 ; Essential hypertension I10 ; Depression F32.9 and Anxiety F41.9 [place] [address] [address] Jun, History of spinal fusion for scoliosis Z98.1 ; Postoperative anemia D64.9 ; Essential hypertension I10 ; Depression F32.9 and Anxiety F41.9 [place] [address] [place] [id number] [address] [place] [address] May, History of spinal fusion for scoliosis Z98.1 ; Postoperative anemia D64.9 ; Essential hypertension I10 ; Depression F32.9 and Anxiety F41.9 [facility] [place] [address] [place] [address] May, [facility] [address] [place] [id number] [address] [place] [address] Apr, Dysuria R30.0 and Acute cyst itis with hematuria N30.01 [facility] [place] [address] [place] [id number] [address] [place] [address] Apr, [facility] [place] [address] [id number] [address] [place] [address] Apr, [facility] [place] [address] [facility] [id number] [address] [place] [id number] Apr, [facility] [place] [address] [facility] [id number] [address] [place] [address] Apr, Anxiety F41.9 [place] [address] [id number] [address] [place] [address] Feb, Anxiety F41.9 [facility] [place] [address] [id number] [address] [place] [address] Jan, [place] [address] [facility] [id number] [address] [place] [address] Jan, Severe scoliosis M41.9 [place] [address] [facility] [id number] [address] [place] [address] Jan, [facility] [place] [address] [facility] [id number] [address] [place] [address] Jan, Tremor of unknown origin R25 .1 ; Headache, unspecified headache type R51 ; Balance problem R26.89 ; Degenerative scoliosis M41.9 ; Pain in right hip M25.551 and Pain in left hip M25.552 [place] [address] [facility] [id number] [address] [place] [address] Jan, Tremor of unknown origin R25 .1 ; Headache, unspecified headache type R51 ; Balance problem R26.89 ; Degenerative scoliosis M41.9 ; Pain in right hip M25.551 and Pain in left hip M25.552 [place] [address] [facility] [id number] [address] [place] [address] Jan, [place] [address] [facility] [id number] [address] [place] [address] Oct, Essential hypertension I10 ; Vitamin D deficiency E55.9 ; Depression F32.9 ; Anxiety F41.9 ; Lumbar pain M54.5 and Screening for colon cancer Z12.11 [facility] [place] [address] [facility] [id number] [address] [place] [address] Aug, [facility] [place] [address] [facility] [id number] [address] [place] [address] Dec, [facility] [place] [address] [facility] [id number] [address] [place] [address] Dec, Hammertoe M20.40 [facility] [place] [address] [facility] [id number] [address] [place] [id number] Oct, [facility] [place] [address] [facility] [id number] [place] [phone] Oct, Essential hypertension I10 ; Vitamin D deficiency E55.9 ; Depression F32.9 ; Anxiety F41.9 ; Lumbar pain M54.5 and Hammer toe of left foot M20.42 [facility] [place] [address] [place] [id number] [address] [place] [address] Sep, Acute upper respiratory infe ction, unspecified J06.9 and Other viral agents as the cause of diseases classified elsewhere B97.89 [facility] [id number] [place] [address] [id number] Apr, Dental examination V72.2 [facility] [address] [id number] [address] [place] [address] [id number] Apr, Dental examination V72.2 [facility] [address] [id number] [address] [place] [address] [id number] Apr, Dental examination V72.2 [facility] [address] [id number] [address] [place] [address] [id number] Apr, Dental examination V72.2 [facility] [address] [place] [id number] [place] [address] [id number] March, Dental examination V72.2 [facility] [place] [address] [facility] [id number] [address] [place] [address] March, [facility] [place] [facility] [address] [id number] [address] [place] [address], [place] [address] Feb, [facility] [address] [id number] [address] [place] [address], [place] [address] Feb, [facility] [address] [id number] [address] [place] [address], [place] [address] Oct, [facility] [place] [facility] [address] [id number] [address] [place] [address], [place] [address] Oct, [facility] [address] [id number] [address] [place] [address], [place] [address] Sep, [facility] [place] [facility] [address] [id number] [address] [place] [address], [place] [address] Sep, [facility] [address] [id number] [address] [place] [address], [place] [address] Sep, [facility] [address] [id number] [address] [place] [address], [place] [address] Sep, [facility] [address] [id number] [address] [place] [address], [place] [address] Aug, [facility] [address] [id number] [address] [place] [address], [place] [address] Aug, [facility] [address] [id number] [address] [place] [address], [place] [address] Jul, [facility] [place] [facility] [address] [id number] [address] [place] [address], [place] [address] Jul, [facility] [place] [facility] [address] [id number] [address] [place] [address], [place] [address] Jun, [facility] [place] [facility] [address] [id number] [address] [place] [address], [place] [address] Jun, [facility] [place] [facility] [address] [id number] [address] [place] [address], [place] [address] May, [facility] [place] [facility] [address] [id number] [address] [place] [address], [place] [address] May, [facility] [address] [id number] [address] [place] [address], [place] [address] May, [facility] [place] [facility] [address] [id number] [address] [place] [address], [place] [address] May, [facility] [place] [facility] [address] [id number] [address] [place] [address], [place] [address] May, [facility] [place] [facility] [address] [id number] [address] [place] [address], [place] [address] May, [facility] [address] [id number] [address] [place] [address], [place] [address] Apr, [facility] [place] [facility] [address] [id number] [address] [place] [address], [place] [address] Apr, [facility] [place] [facility] [address] [id number] [address] [place] [address], [place] [address] March, [facility] [place] [facility] [address] [id number] [address] [place] [address], [place] [address] March, [facility] [address] [id number] [address] [place] [address], [place] [address] March, [facility] [place] [facility] [address] [id number] [address] [place] [address], [place] [address] March, [facility] [place] [facility] [address] [id number] [address] [place] [address], [place] [address] Jan, [facility] [place] [facility] [address] [id number] [address] [place] [address], [place] [address] Jan, [facility] [place] [facility] [address] [id number] [address] [place] [address], [place] [address] Dec, [facility] [place] [facility] [address] [id number] [address] [place] [address], [place] [address] Dec, [facility] [place] [facility] [address] [id number] [address] [place] [address], [place] [address] Nov, [facility] [place] [facility] [address] [id number] [address] [place] [address], [place] [address] Nov, [facility] [address] [id number] [address] [place] [address], [place] [address] Nov, [facility] [address] [id number] [address] [place] [address], [place] [address] Nov, [facility] [address] [id number] [address] [place] [address], [place] [address] Nov, [facility] [address] [id number] [address] [place] [address], [place] [address] Nov, [facility] [address] [id number] [address] [place] [address], [place] [address] Oct, [facility] [address] [id number] [address] [place] [address], [place] [address] Oct, [facility] [address] [id number] [address] [place] [address], [place] [address] Oct, [facility] [address] [id number] [address] [place] [address], [place] [address] Oct, [facility] [address] [id number] [address] [place] [address], [place] [address] Sep, [facility] [address] [id number] [address] [place] [address], [place] [address] Sep, [facility] [address] [id number] [address] [place] [address], [place] [address] Sep, [facility] [address] [id number] [address] [place] [address], [place] [address] Sep, [facility] [address] [id number] [address] [place] [address], [place] [address] Aug, [facility] [address] [id number] [address] [place] [address], [place] [address] Aug, [facility] [address] [id number] [address] [place] [address], [place] [address] Aug, [facility] [address] [id number] [address] [place] [address], [place] [address] Aug, [facility] [address] [id number] [address] [place] [address], [place] [address] Jul, [facility] [address] [id number] [address] [place] [address], [place] [address] Jun, [facility] [address] [id number] [address] [place] [address], [place] [address] Jun, [facility] [address] [id number] [address] [place] [address], [place] [address] Jun, [facility] [address] [id number] [address] [place] [address], [place] [address] Jun, [facility] [address] [id number] [address] [place] [address], [place] [address] Jun, [facility] [address] [id number] [address] [place] [address], [place] [address] May, [facility] [address] [id number] [address] [place] [address], [place] [address] Apr, [facility] [address] [id number] [address] [place] [address], [place] [address] Apr, [facility] [address] [id number] [address] [place] [address], [place] [address] March, [facility] [address] [id number] [address] [place] [address], [place] [address] March, [facility] [address] [id number] [address] [place] [address], [place] [address] March, [facility] [address] [id number] [address] [place] [address], [place] [address] March, [facility] [address] [id number] [address] [place] [address], [place] [address] March, [facility] [address] [id number] [address] [place] [address], [place] [address] 25 Feb, 2013 [facility] [address] [id number] [address] [place] [address], [place] [address] 15 Feb, 2013 [facility] [address] [id number] [address] [place] [address], [place] [address] 27 Jan, 2013 [facility] [address] [id number] [address] [place] [address], [place] [address] 25 Jan, 2013 [facility] [address] [id number] [address] [place] [address], [place] [address] 21 Jan, 2013 [facility] [address] [id number] [address] [place] [address], [place] [address] 15 Jan, 2013 [facility] [address] [id number] [address] [place] [address], [place] [address] 15 Jan, 2013 [facility] [address] [id number] [address] [place] [address], [place] [address] 14 Jan, 2013 [facility] [address] [id number] [address] [place] [address], [place] [address] 14 Jan, 2013 [facility] [address] [id number] [address] [place] [address], [place] [address] 13 Jan, 2013 [facility] [address] [id number] [address] [place] [address], [place] [address] 26 Dec, 2012 [facility] [address] [id number] [address] [place] [address], [place] [address] 18 Dec, 2012 [facility] [address] [id number] [address] [place] [address], [place] [address] 15 Dec, 2012 [facility] [address] [id number] [address] [place] [address], [place] [address] 15 Dec, 2012 [facility] [address] [id number] [address] [place] [address], [place] [address] 14 Dec, 2012 [facility] [address] [id number] [address] [place] [address], [place] [address] 13 Dec, 2012 [facility] [place] [address] [facility] [id number] [address] [place] [id number] Dec, [facility] [address] [facility] [id number] [address] [place] [address] Dec, [facility] [place] [address] [facility] [id number] [address] [place] [address] Nov, [facility] [place] [address] [facility] [id number] [address] [place] [address] Nov, [facility] [place] [address] [facility] [id number] [address] [place] [address] Nov, [facility] [place] [address] [facility] [id number] [address] [place] [address] Nov, IMMUNIZATIONS No Known Immunizations SOCIAL HISTORY Never Assessed REASON FOR VISIT PLAN OF CARE VITAL SIGNS Height 64 in 2014-04-27 Weight 105.31 lbs 2014-04-27 Temperature 97.2 degrees Fahrenheit 2014-04-27 Heart Rate 78 bpm 2014-04-27 Respiratory Rate 20 2014-04-27 Blood pressure systolic 116 mmHg 2014-04-27 Blood pressure diastolic 72 mmHg 2014-04-27 MEDICATIONS No Known Medications RESULTS No Results [...]
--- OUTSIDE RECORDS SUMMARY | 2020-02-19 13:35 | XMS REPORT ---
Author Author Sherly SANCHEZ Organization [facility] Address [address] [place] [address] Care Team Providers Care Mate Chief Name Role Phone DIGNA SANCHEZ Unavailable PROBLEMS Type Condition ICD9-CM Code NSN17-XD Code Onset Dates Condition S tatus SNOMED Code Problem Hypercholesteremia E78.00 Active 1 3152790 Problem Hyponatremia E87.1 Active 2759063 8 Problem History of hypertension Z86.79 Active 476554339 Problem Diverticulitis K57.92 Active 89340 6006 Problem Depression F32.9 Active 80354134 Problem Anxiety F41.9 Active 98671980 Problem Vitamin D deficiency E55.9 Active 33880647 Problem History of spinal fusion for scoliosis Z98.1 Active [id number] ALLERGIES No Information ENCOUNTERS Encounter Location Date Diagnosis [facility] [address] [facility] [id number] [address] [place] [address] Jul, Hypercholesteremia E78.00 ; Depression F32.9 ; Vitamin D deficiency E55.9 ; Anxiety F41.9 and History of spinal fusion for scoliosis Z98.1 [facility] [address] [place] [id number] [address] [place] [phone] Apr, Anxiety F41.9 ; History of s arabella fusion for scoliosis Z98.1 and Long-term use of high-risk medication Z79.899 [facility] [address] [facility] [id number] [address] [place] [address] Nov, Depression F32.9 [facility] [address] [facility] [id number] [address] [place] [phone] Oct, Depression F32.9 ; Anxiety F 41.9 ; History of spinal fusion for scoliosis Z98.1 and History of hypertension Z86.79 [facility] [address] [address] Sep, Dysuria R30.0 and Acute cyst itis with hematuria N30.01 [place] [address] [address] Aug, [place] [address] [address] Jul, Depression F32.9 and Diverti culitis K57.92 [place] [address] [address] May, Hyponatremia E87.1 [place] [address] [address] May, [place] [address] [address] Apr, Vasovagal syncope R55 ; Diar jose of presumed infectious origin R19.7 ; Black eye of left side, initial encounter S00.12XA ; Skin tear of left forearm without complication, initial encounter S51.812A ; Dehydration E86.0 ; Vitamin D deficiency E55.9 and Weight loss R63.4 [place] [address] [address] Apr, Vitamin D deficiency E55.9 ; History of spinal fusion for scoliosis Z98.1 ; Anxiety F41.9 and Depression F32.9 [place] [address] [address] Jan, Essential hypertension I10 ; Depression F32.9 ; Anxiety F41.9 ; History of hypertension Z86.79 ; History of anemia Z86.2 and Hyponatremia E87.1 [place] [address] [address] Dec, Hyponatremia E87.1 [facility] [address] [address] 02 Feb, 2018 Fever, unspecified fever cau se R50.9 and Acute nasopharyngitis [address] [place] [id number] [facility] [id number] [address] [place] [address] Nov, Hyponatremia E87.1 [place] [address] [facility] [id number] [address] [place] [address] Oct, Essential hypertension I10 ; Long-term use of high-risk medication Z79.899 and Vitamin D deficiency E55.9 [place] [address] [place] [id number] [address] [place] [address] Oct, Essential hypertension I10 ; Depression F32.9 ; Anxiety F41.9 ; Long-term use of high-risk medication Z79.899 and Vitamin D deficiency E55.9 [place] [address] [place] [id number] [place] [address] Jun, History of spinal fusion for scoliosis Z98.1 ; Postoperative anemia D64.9 ; Essential hypertension I10 ; Depression F32.9 and Anxiety F41.9 [place] [address] [address] Jun, History of spinal fusion for scoliosis Z98.1 ; Postoperative anemia D64.9 ; Essential hypertension I10 ; Depression F32.9 and Anxiety F41.9 [place] [address] [place] [id number] [address] [place] [address] May, History of spinal fusion for scoliosis Z98.1 ; Postoperative anemia D64.9 ; Essential hypertension I10 ; Depression F32.9 and Anxiety F41.9 [place] [id number] [place] [address] May, [facility] [address] [place] [id number] [address] [place] [id number] Apr, Dysuria R30.0 and Acute cyst itis with hematuria N30.01 [place] [address] [place] [id number] [address] [place] [id number] Apr, [place] [address] [id number] [address] [place] [address] Apr, [facility] [address] [facility] [id number] [address] [place] [id number] Apr, [facility] [address] [facility] [id number] [address] [place] [address] Apr, Anxiety F41.9 [facility] [address] [facility] [id number] [address] [place] [address] Feb, Anxiety F41.9 [facility] [address] [facility] [id number] [address] [place] [address] Jan, [facility] [address] [facility] [id number] [address] [place] [address] Jan, Severe scoliosis M41.9 [facility] [address] [facility] [id number] [address] [place] [address] Jan, [facility] [address] [facility] [id number] [address] [place] [address] Jan, Tremor of unknown origin R25 .1 ; Headache, unspecified headache type R51 ; Balance problem R26.89 ; Degenerative scoliosis M41.9 ; Pain in right hip M25.551 and Pain in left hip M25.552 [facility] [address] [facility] [id number] [address] [place] [address] Jan, Tremor of unknown origin R25 .1 ; Headache, unspecified headache type R51 ; Balance problem R26.89 ; Degenerative scoliosis M41.9 ; Pain in right hip M25.551 and Pain in left hip M25.552 [facility] [address] [facility] [id number] [address] [place] [address] Jan, [facility] [address] [facility] [id number] [address] [place] [id number] Oct, Essential hypertension I10 ; Vitamin D deficiency E55.9 ; Depression F32.9 ; Anxiety F41.9 ; Lumbar pain M54.5 and Screening for colon cancer Z12.11 [facility] [address] [facility] [id number] [address] [place] [phone] Aug, [facility] [address] [facility] [id number] [address] [place] [address] Dec, [facility] [address] [place] [id number] [address] [place] [address] Dec, Hammertoe M20.40 [facility] [address] [facility] [id number] [address] [place] [address] Oct, [facility] [address] [facility] [id number] [place] [address] Oct, Essential hypertension I10 ; Vitamin D deficiency E55.9 ; Depression F32.9 ; Anxiety F41.9 ; Lumbar pain M54.5 and Hammer toe of left foot M20.42 [place] [address] [address] Sep, Acute upper respiratory infe ction, unspecified J06.9 and Other viral agents as the cause of diseases classified elsewhere B97.89 [facility] [address] [id number] Apr, Dental examination V72.2 [facility] [id number] [place] [id number] Apr, Dental examination V72.2 [facility] [address] [id number] [place] [address] [id number] Apr, Dental examination V72.2 [facility] [address] [id number] [address] [place] [id number] Apr, Dental examination V72.2 [facility] [address] [place] [id number] [place] [id number] March, Dental examination V72.2 [facility] [address] [place] [id number] [address] [place] [phone] March, [facility] [place] [facility] [address] [id number] [address] [place] [address], [place] [address] 14 Feb, 2015 [facility] [address] [id number] [address] [place] [address], [place] [address] Feb, [facility] [place] [facility] [address] [id number] [address] [place] [address], [place] [address] Oct, [facility] [place] [facility] [address] [id number] [address] [place] [address], [place] [address] Oct, [facility] [place] [facility] [address] [id number] [address] [place] [address], [place] [address] Sep, [facility] [address] [id number] [address] [place] [address], [place] [address] Sep, [facility] [address] [id number] [address] [place] [address], [place] [address] Sep, [facility] [place] [facility] [address] [id number] [address] [place] [address], [place] [address] Sep, [facility] [address] [id number] [address] [place] [address], [place] [address] Aug, [facility] [address] [id number] [address] [place] [address], [place] [address] Aug, [facility] [address] [id number] [address] [place] [address], [place] [address] Jul, [facility] [place] [facility] [address] [id number] [address] [place] [address], [place] [address] Jul, [facility] [place] [facility] [address] [id number] [address] [place] [address], [place] [address] Jun, [facility] [place] [facility] [address] [id number] [address] [place] [address], [place] [address] Jun, [facility] [place] [facility] [address] [id number] [address] [place] [address], [place] [address] May, [facility] [place] [facility] [address] [id number] [address] [place] [address], [place] [address] May, [facility] [address] [id number] [facility] [place] [address] May, [facility] [place] [facility] [address] [id number] [address] [place] [address], [place] [address] May, [facility] [place] [facility] [address] [id number] [facility] [place] [address] May, [facility] [place] [facility] [address] [id number] [address] [place] [address], [place] [address] May, [facility] [place] [facility] [address] [id number] [address] [place] [address], [place] [address] Apr, [facility] [place] [facility] [address] [id number] [address] [place] [address], [place] [address] Apr, [facility] [place] [facility] [address] [id number] [address] [place] [address], [place] [address] March, [facility] [place] [facility] [address] [id number] [address] [place] [address], [place] [address] March, [facility] [place] [facility] [address] [id number] [address] [place] [address], [place] [address] March, [facility] [place] [facility] [address] [id number] [address] [place] [address], [place] [address] March, [facility] [place] [facility] [address] [id number] [address] [place] [address], [place] [address] Jan, [facility] [place] [facility] [address] [id number] [address] [place] [address], [place] [address] Jan, [facility] [place] [address] [id number] [address] [place] [address], [place] [address] Dec, [facility] [place] [facility] [address] [id number] [address] [place] [address], [place] [address] Dec, [facility] [place] [facility] [address] [id number] [address] [place] [address], [place] [address] Nov, [facility] [place] [facility] [address] [id number] [address] [place] [address] Nov, [facility] [address] [id number] [address] [place] [address], [place] [address] Nov, [facility] [address] [id number] [address] [place] [address], [place] [address] Nov, [facility] [address] [id number] [address] [place] [address], [place] [address] Nov, [facility] [address] [id number] [address] [place] [address], [place] [address] Nov, [facility] [address] [id number] [address] [place] [address], [place] [address] Oct, [facility] [address] [id number] [address] [place] [address], [place] [address] Oct, [facility] [address] [id number] [address] [place] [address], [place] [address] Oct, [facility] [address] [id number] [address] [place] [address], [place] [address] Oct, [facility] [address] [id number] [address] [place] [address], [place] [address] Sep, [facility] [address] [id number] [address] [place] [address], [place] [address] Sep, [facility] [address] [id number] [address] [place] [address], [place] [address] Sep, [facility] [address] [id number] [address] [place] [address], [place] [address] Sep, [facility] [address] [id number] [address] [place] [address], [place] [address] Aug, [facility] [address] [id number] [address] [place] [address], [place] [address] Aug, [facility] [address] [id number] [address] [place] [address], [place] [address] Aug, [facility] [address] [id number] [address] [place] [address], [place] [address] Aug, [facility] [address] [id number] [address] [place] [address], [place] [address] Jul, [facility] [address] [id number] [address] [place] [address], [place] [address] Jun, [facility] [address] [id number] [address] [place] [address], [place] [address] Jun, [facility] [address] [id number] [address] [place] [address], [place] [address] Jun, [facility] [address] [id number] [address] [place] [address], [place] [address] Jun, [facility] [address] [id number] [address] [place] [address], [place] [address] Jun, [facility] [address] [id number] [address] [place] [address], [place] [address] May, [facility] [address] [id number] [address] [place] [address], [place] [address] Apr, [facility] [address] [id number] [address] [place] [address], [place] [address] Apr, [facility] [address] [id number] [address] [place] [address], [place] [address] March, [facility] [address] [id number] [address] [place] [address], [place] [address] March, [facility] [address] [id number] [address] [place] [address], [place] [address] March, [facility] [address] [id number] [address] [place] [address], [place] [address] March, [facility] [address] [id number] [address] [place] [address], [place] [address] March, [facility] [address] [id number] [address] [place] [address], [place] [address] 25 Feb, 2013 [facility] [address] [id number] [address] [place] [address], [place] [address] 15 Feb, 2013 [facility] [address] [id number] [address] [place] [address], [place] [address] 27 Jan, 2013 [facility] [address] [id number] [address] [place] [address], [place] [address] 25 Jan, 2013 [facility] [address] [id number] [address] [place] [address], [place] [address] 21 Jan, 2013 [facility] [address] [id number] [address] [place] [address], [place] [address] 15 Jan, 2013 [facility] [address] [id number] [address] [place] [address], [place] [address] 15 Jan, 2013 [facility] [address] [id number] [address] [place] [address], [place] [address] 14 Jan, 2013 [facility] [address] [id number] [address] [place] [address], [place] [address] 14 Jan, 2013 [facility] [address] [id number] [address] [place] [address], [place] [address] 13 Jan, 2013 [facility] [address] [id number] [address] [place] [address], [place] [address] 26 Dec, 2012 [facility] [address] [id number] [address] [place] [address], [place] [address] 18 Dec, 2012 [facility] [address] [id number] [address] [place] [address], [place] [address] 15 Dec, 2012 [facility] [address] [id number] [address] [place] [address], [place] [address] 15 Dec, 2012 [facility] [address] [id number] [address] [place] [address], [place] [address] 14 Dec, 2012 [facility] [address] [id number] [address] [place] [address], [place] [address] 13 Dec, 2012 [facility] [address] [facility] [id number] [address] [place] [address] Dec, [facility] [address] [facility] [id number] [address] [place] [address] Dec, [facility] [address] [facility] [id number] [address] [place] [address] Nov, [facility] [address] [facility] [id number] [address] [place] [id number] Nov, [facility] [address] [facility] [id number] [address] [place] [address] Nov, [facility] [address] [facility] [id number] [address] [place] [address] Nov, IMMUNIZATIONS No Known Immunizations SOCIAL HISTORY [...]
[2020-02-19] MEDS ORDERED: NS IV 1000 ML 1,000 ML IV SCH (13:36)
--- OUTSIDE RECORDS SUMMARY | 2020-02-19 13:36 | XMS REPORT ---
Author Author Sherly Durand Doctor Organization [facility] Address Unknown Phone Unavailable Care Team Providers Care Dog Barber Name Role Phone Migration, Doctor Unavailable Unavailable PROBLEMS Type Condition ICD9-CM Code RMN24-XZ Code Onset Dates Condition S tatus SNOMED Code Problem Hypercholesteremia E78.00 Active 1 5358669 Problem Hyponatremia E87.1 Active 2109196 8 Problem History of hypertension Z86.79 Active 740433631 Problem Diverticulitis K57.92 Active 73727 6006 Problem Depression F32.9 Active 72393700 Problem Anxiety F41.9 Active 68248347 Problem Vitamin D deficiency E55.9 Active 92629169 Problem History of spinal fusion for scoliosis Z98.1 Active [id number] ALLERGIES No Information ENCOUNTERS Encounter Location Date Diagnosis [place] [id number] [place] [id number] [address] [place] [id number] Nov, Depression F32.9 [facility] [address] [address] Oct, Depression F32.9 ; Anxiety F 41.9 ; History of spinal fusion for scoliosis Z98.1 and History of hypertension Z86.79 [facility] [address] [place] [id number] [address] [place] [id number] Sep, Dysuria R30.0 and Acute cyst itis with hematuria N30.01 [facility] [address] [facility] [id number] [address] [place] [id number] Aug, [facility] [address] [place] [id number] [address] [place] [address] Jul, Depression F32.9 and Diverti culitis K57.92 [facility] [address] [place] [id number] [address] [place] [address] May, Hyponatremia E87.1 [facility] [address] [address] May, [facility] [address] [address] Apr, Vasovagal syncope R55 ; Diar jose of presumed infectious origin R19.7 ; Black eye of left side, initial encounter S00.12XA ; Skin tear of left forearm without complication, initial encounter S51.812A ; Dehydration E86.0 ; Vitamin D deficiency E55.9 and Weight loss R63.4 [facility] [address] [address] Apr, Vitamin D deficiency E55.9 ; History of spinal fusion for scoliosis Z98.1 ; Anxiety F41.9 and Depression F32.9 [place] [address] [address] Jan, Essential hypertension I10 ; Depression F32.9 ; Anxiety F41.9 ; History of hypertension Z86.79 ; History of anemia Z86.2 and Hyponatremia E87.1 [facility] [address] [address] Dec, Hyponatremia E87.1 [facility] [address] [address] Dec, Fever, unspecified fever cau se R50.9 and Acute nasopharyngitis J00 [place] [address] [place] [id number] [address] [place] [address] Nov, Hyponatremia E87.1 [facility] [address] [address] Oct, Essential hypertension I10 ; Long-term use of high-risk medication Z79.899 and Vitamin D deficiency E55.9 [place] [address] [address] Oct, Essential hypertension I10 ; Depression F32.9 ; Anxiety F41.9 ; Long-term use of high-risk medication Z79.899 and Vitamin D deficiency E55.9 [facility] [address] [facility] [id number] [address] [place] [address] Jun, History of spinal fusion for scoliosis Z98.1 ; Postoperative anemia D64.9 ; Essential hypertension I10 ; Depression F32.9 and Anxiety F41.9 [place] [address] [address] Jun, History of spinal fusion for scoliosis Z98.1 ; Postoperative anemia D64.9 ; Essential hypertension I10 ; Depression F32.9 and Anxiety F41.9 [place] [address] [address] May, History of spinal fusion for scoliosis Z98.1 ; Postoperative anemia D64.9 ; Essential hypertension I10 ; Depression F32.9 and Anxiety F41.9 [place] [address] [place] [id number] [address] [place] [address] May, [facility] [address] [place] [id number] [address] [place] [address] Apr, Dysuria R30.0 and Acute cyst itis with hematuria N30.01 [facility] [address] [place] [id number] [address] [place] [address] Apr, [facility] [address] [place] [address] Apr, [facility] [address] [place] [id number] [address] [place] [phone] Apr, [facility] [address] [place] [id number] [address] [place] [address] Apr, Anxiety F41.9 [facility] [address] [place] [id number] [place] [phone] Feb, Anxiety F41.9 [facility] [address] [place] [id number] [place] [id number] Jan, [facility] [address] [facility] [id number] [address] [place] [phone] Jan, Severe scoliosis M41.9 [facility] [address] [facility] [id number] [address] [place] [address] Jan, [facility] [address] [facility] [id number] [address] [place] [address] Jan, Tremor of unknown origin R25 .1 ; Headache, unspecified headache type R51 ; Balance problem R26.89 ; Degenerative scoliosis M41.9 ; Pain in right hip M25.551 and Pain in left hip M25.552 [place] [address] [facility] [id number] [address] [place] [address] 14 Jan, 2017 Tremor of unknown origin R25 .1 ; Headache, unspecified headache type R51 ; Balance problem R26.89 ; Degenerative scoliosis M41.9 ; Pain in right hip M25.551 and Pain in left hip M25.552 [place] [address] [facility] [id number] [address] [place] [address] Jan, [place] [address] [facility] [id number] [address] [place] [address] Oct, Essential hypertension I10 ; Vitamin D deficiency E55.9 ; Depression F32.9 ; Anxiety F41.9 ; Lumbar pain M54.5 and Screening for colon cancer Z12.11 [place] [address] [facility] [id number] [address] [place] [address] Aug, [place] [address] [facility] [id number] [address] [place] [address] Dec, [place] [address] [place] [id number] [address] [place] [address] Dec, Hammertoe M20.40 [place] [address] [place] [id number] [address] [place] [address] Oct, [place] [address] [place] [id number] [address] [place] [address] Oct, Essential hypertension I10 ; Vitamin D deficiency E55.9 ; Depression F32.9 ; Anxiety F41.9 ; Lumbar pain M54.5 and Hammer toe of left foot M20.42 [facility] [address] [id number] [address] [place] [address] Sep, Acute upper respiratory infe ction, unspecified J06.9 and Other viral agents as the cause of diseases classified elsewhere B97.89 [facility] [address] [id number] [address] [place] [id number] Apr, Dental examination V72.2 [facility] [address] [id number] [place] [address] [id number] Apr, Dental examination V72.2 [facility] [address] [id number] [address] [place] [address] [id number] Apr, Dental examination V72.2 [facility] [address] [id number] [address] [place] [id number] Apr, Dental examination V72.2 [facility] [address] [id number] [address] [place] [address] [id number] March, Dental examination V72.2 [facility] [address] [id number] [address] [place] [phone] March, [facility] [address] [id number] [address] [place] [phone] Feb, [facility] [address] [id number] [address] [place] [phone] Feb, [facility] [address] [id number] [address] [place] [phone] Oct, [facility] [address] [id number] [address] [place] [phone] Oct, [facility] [address] [id number] [address] [place] [phone] Sep, [facility] [address] [id number] [address] [place] [place] [address], [place] [address] Sep, [facility] [address] [id number] [address] [place] [address], [place] [address] Sep, [facility] [address] [id number] [address] [place] [address], [place] [id number] Sep, [facility] [address] [id number] [address] [place] [address], [place] [address] Aug, [facility] [address] [id number] [address] [place] [address], [place] [address] Aug, [facility] [address] [id number] [address] [place] [address], [place] [address] Jul, [facility] [address] [id number] [address] [place] [address], [place] [id number] Jul, [facility] [address] [id number] [address] [place] [place] [address], [place] [address] Jun, [facility] [address] [id number] [address] [place] [place] [address], [place] [address] Jun, [facility] [address] [id number] [address] [place] [address], [place] [id number] May, [facility] [address] [id number] [address] [place] [address], [place] [address] May, [facility] [address] [id number] [address] [place] [address], [place] [address] May, [facility] [address] [id number] [address] [place] [address], [place] [address] May, [facility] [address] [id number] [address] [place] [place] [address], [place] [address] May, [facility] [address] [id number] [address] [place] [address], [place] [address] May, [facility] [address] [id number] [address] [place] [place] [address], [place] [id number] Apr, [facility] [address] [id number] [address] [place] [place] [address], [place] [id number] Apr, [facility] [address] [id number] [address] [place] [place] [address], [place] [id number] March, [facility] [address] [id number] [address] [place] [place] [address], [place] [id number] March, [facility] [address] [id number] [address] [place] [place] [address], [place] [address] March, [facility] [address] [id number] [address] [place] [place] [address], [place] [id number] March, [facility] [address] [id number] [address] [place] [address], [place] [id number] Jan, [facility] [address] [id number] [address] [place] [address], [place] [address] Jan, [facility] [address] [id number] [address] [place] [place] [address], [place] [address] Dec, [facility] [address] [id number] [address] [place] [place] [address], [place] [address] Dec, [facility] [address] [id number] [address] [place] [place] [address], [place] [address] Nov, [facility] [address] [id number] [address] [place] [address], [place] [address] Nov, [facility] [address] [id number] [address] [place] [address], [place] [address] Nov, [facility] [address] [id number] [address] [place] [address], [place] [address] Nov, [facility] [address] [id number] [address] [place] [address], [place] [address] Nov, [facility] [address] [id number] [address] [place] [address], [place] [address] Nov, [facility] [address] [id number] [address] [place] [address], [place] [address] Oct, [facility] [address] [id number] [address] [place] [address], [place] [address] Oct, [facility] [address] [id number] [address] [place] [address], [place] [address] Oct, [facility] [address] [id number] [address] [place] [place] [address], [place] [address] Oct, [facility] [address] [id number] [address] [place] [address], [place] [address] Sep, [facility] [address] [id number] [address] [place] [address], [place] [address] Sep, [facility] [address] [id number] [address] [place] [address], [place] [address] Sep, [facility] [address] [id number] [address] [place] [address], [place] [address] Sep, [facility] [address] [id number] [address] [place] [address], [place] [address] Aug, [facility] [address] [id number] [address] [place] [address], [place] [address] Aug, [facility] [address] [id number] [address] [place] [address], [place] [address] Aug, [facility] [address] [id number] [address] [place] [place] [address], [place] [address] Aug, [facility] [address] [id number] [address] [place] [place] [address], [place] [id number] Jul, [facility] [address] [id number] [address] [place] [place] [address], [place] [address] Jun, [facility] [address] [id number] [address] [place] [place] [address], [place] [address] Jun, [facility] [address] [id number] [address] [place] [place] [address], [place] [address] Jun, [facility] [address] [id number] [address] [place] [place] [address], [place] [address] Jun, [facility] [address] [id number] [address] [place] [place] [address], [place] [address] Jun, [facility] [address] [id number] [address] [place] [place] [address], [place] [address] May, [facility] [address] [id number] [address] [place] [place] [address], [place] [address] Apr, [facility] [address] [id number] [address] [place] [address], [place] [address] Apr, [facility] [address] [id number] [address] [place] [place] [address], [place] [address] March, [facility] [address] [id number] [address] [place] [place] [address], [place] [address] March, [facility] [address] [id number] [address] [place] [address], [place] [address] March, [facility] [address] [id number] [address] [place] [place] [address], [place] [address] March, [facility] [address] [id number] [address] [place] [address], [place] [address] March, [facility] [address] [id number] [address] [place] [place] [address], [place] [address] Feb, [facility] [address] [id number] [address] [place] [place] [address], [place] [address] Feb, [facility] [address] [id number] [address] [place] [place] [address], [place] [address] Jan, [facility] [address] [id number] [address] [place] [place] [address], [place] [address] Jan, [facility] [address] [id number] [address] [place] [place] [address], [place] [address] Jan, [facility] [address] [id number] [address] [place] [address], [place] [address] 15 Jan, 2013 [facility] [address] [id number] [address] [place] [place] [address], [place] [address] 15 Jan, 2013 [facility] [address] [id number] [address] [place] [place] [address], [place] [address] 14 Jan, 2013 [facility] [address] [id number] [address] [place] [place] [address], [place] [address] 14 Jan, 2013 [facility] [address] [id number] [address] [place] [place] [address], [place] [id number] 13 Jan, 2013 [facility] [address] [id number] [address] [place] [place] [address], [place] [id number] 26 Dec, 2012 [facility] [address] [id number] [address] [place] [place] [address], [place] [id number] 18 Dec, 2012 [facility] [address] [id number] [address] [place] [address], [place] [address] 15 Dec, 2012 [facility] [address] [id number] [address] [place] [place] [address], [place] [address] 15 Dec, 2012 [facility] [address] [id number] [address] [place] [place] [address], [place] [address] 14 Dec, 2012 [facility] [address] [id number] [address] [place] [place] [address], [place] [address] 13 Dec, 2012 [facility] [address] [id number] [address] [place] [address], [place] [address] 12 Dec, 2012 [facility] [address] [id number] [address] [place] [address], [place] [id number] 05 Dec, 2012 [facility] [address] [id number] [address] [place] [address], [place] [id number] 28 Nov, 2012 [facility] [address] [id number] [address] [place] [place] [address], [place] [id number] 28 Nov, 2012 [facility] [address] [id number] [address] [place] [id number] 15 Nov, 2012 [facility] [address] [facility] [id number] [address] [place] [address] 10 Nov, 2012 IMMUNIZATIONS No Known Immunizations SOCIAL HISTORY Never Assessed REASON FOR VISIT EMR-[facility] PLAN OF CARE VITAL SIGNS MEDICATIONS Unknown [...]
--- OUTSIDE RECORDS SUMMARY | 2020-02-19 13:36 | XMS REPORT ---
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 Name Role Phone Migration, Doctor Unavailable Unavailable PROBLEMS Type Condition ICD9-CM Code QON24-ZX Code Onset Dates Condition S tatus SNOMED Code Problem Hypercholesteremia E78.00 Active 1 0946678 Problem Hyponatremia E87.1 Active 2806178 8 Problem History of hypertension Z86.79 Active 799275166 Problem Diverticulitis K57.92 Active 75862 6006 Problem Depression F32.9 Active 98197267 Problem Anxiety F41.9 Active 25646596 Problem Vitamin D deficiency E55.9 Active 46861862 Problem History of spinal fusion for scoliosis Z98.1 Active 289283157 ALLERGIES Substance Reaction Event Type Date Status Fosamax Unknown Drug Allergy Feb, Active Penicillin Unknown Drug Allergy Feb, Active Evista 60 Mg Tablet legs swelling Non Drug Allergy Feb, Act jaelyn Neosporin Unknown Drug Allergy Feb, Active ENCOUNTERS Encounter Location Date Diagnosis [facility] [address] [place] [address] Apr, Anxiety F41.9 ; History of s arabella fusion for scoliosis Z98.1 and Long-term use of high-risk medication Z79.899 [facility] [address] [place] [id number] [address] [place] [address] Nov, Depression F32.9 [facility] [address] [facility] [id number] [address] [place] [address] Oct, Depression F32.9 ; Anxiety F 41.9 ; History of spinal fusion for scoliosis Z98.1 and History of hypertension Z86.79 [facility] [address] [facility] [id number] [address] [place] [address] Sep, Dysuria R30.0 and Acute cyst itis with hematuria N30.01 [place] [address] [address] Aug, [place] [address] [address] Jul, Depression F32.9 and Diverti culitis K57.92 [place] [address] [address] May, Hyponatremia E87.1 [place] [address] [address] May, [place] [address] [address] Apr, Vasovagal syncope R55 ; Diar jose of presumed infectious origin R19.7 ; Black eye of left side, initial encounter S00.12XA ; Skin tear of left forearm without complication, initial encounter S51.812A ; Dehydration E86.0 ; Vitamin D deficiency E55.9 and Weight loss R63.4 [place] [address] [address] Apr, Vitamin D deficiency E55.9 ; History of spinal fusion for scoliosis Z98.1 ; Anxiety F41.9 and Depression F32.9 [place] [address] [address] Jan, Essential hypertension I10 ; Depression F32.9 ; Anxiety F41.9 ; History of hypertension Z86.79 ; History of anemia Z86.2 and Hyponatremia E87.1 [facility] [address] [address] Dec, Hyponatremia E87.1 [facility] [address] [address] Dec, Fever, unspecified fever cau se R50.9 and Acute nasopharyngitis J00 [place] [address] [address] Nov, Hyponatremia E87.1 [place] [address] [facility] [id number] [address] [place] [address] Oct, Essential hypertension I10 ; Long-term use of high-risk medication Z79.899 and Vitamin D deficiency E55.9 [facility] [address] [place] [id number] [address] [place] [address] Oct, Essential hypertension I10 ; Depression F32.9 ; Anxiety F41.9 ; Long-term use of high-risk medication Z79.899 and Vitamin D deficiency E55.9 [place] [address] [facility] [id number] [address] [place] [address] Jun, History of spinal fusion for scoliosis Z98.1 ; Postoperative anemia D64.9 ; Essential hypertension I10 ; Depression F32.9 and Anxiety F41.9 [place] [address] [address] Jun, History of spinal fusion for scoliosis Z98.1 ; Postoperative anemia D64.9 ; Essential hypertension I10 ; Depression F32.9 and Anxiety F41.9 [place] [address] [address] May, History of spinal fusion for scoliosis Z98.1 ; Postoperative anemia D64.9 ; Essential hypertension I10 ; Depression F32.9 and Anxiety F41.9 [place] [address] [place] [address] May, [facility] [address] [place] [id number] [address] [place] [address] Apr, Dysuria R30.0 and Acute cyst itis with hematuria N30.01 [facility] [address] [place] [id number] [address] [place] [address] Apr, [facility] [address] [place] [address] Apr, [place] [address] [address] Apr, [facility] [address] [facility] [id number] [address] [place] [address] Apr, Anxiety F41.9 [facility] [address] [facility] [id number] [address] [place] [address] Feb, Anxiety F41.9 [facility] [address] [facility] [id number] [address] [place] [address] Jan, [facility] [address] [facility] [id number] [address] [place] [address] Jan, Severe scoliosis M41.9 [place] [address] [facility] [id number] [address] [place] [address] Jan, [place] [address] [place] [id number] [address] [place] [address] Jan, Tremor of unknown origin R25 .1 ; Headache, unspecified headache type R51 ; Balance problem R26.89 ; Degenerative scoliosis M41.9 ; Pain in right hip M25.551 and Pain in left hip M25.552 [place] [address] [place] [id number] [address] [place] [address] Jan, Tremor of unknown origin R25 .1 ; Headache, unspecified headache type R51 ; Balance problem R26.89 ; Degenerative scoliosis M41.9 ; Pain in right hip M25.551 and Pain in left hip M25.552 [place] [address] [facility] [id number] [address] [place] [address] Jan, [facility] [address] [facility] [id number] [address] [place] [address] Oct, Essential hypertension I10 ; Vitamin D deficiency E55.9 ; Depression F32.9 ; Anxiety F41.9 ; Lumbar pain M54.5 and Screening for colon cancer Z12.11 [facility] [address] [facility] [id number] [address] [place] [address] Aug, [place] [address] [place] [id number] [address] [place] [address] Dec, [facility] [address] [facility] [id number] [address] [place] [address] Dec, Hammertoe M20.40 [facility] [address] [facility] [id number] [address] [place] [address] Oct, [facility] [address] [facility] [id number] [place] [address] Oct, Essential hypertension I10 ; Vitamin D deficiency E55.9 ; Depression F32.9 ; Anxiety F41.9 ; Lumbar pain M54.5 and Hammer toe of left foot M20.42 [facility] [address] [place] [id number] [address] [place] [address] Sep, Acute upper respiratory infe ction, unspecified J06.9 and Other viral agents as the cause of diseases classified elsewhere B97.89 [facility] [address] [id number] [address] [place] [id number] Apr, Dental examination V72.2 [facility] [address] [place] [id number] Apr, Dental examination V72.2 [facility] [address] [id number] [address] [place] [address] [id number] Apr, Dental examination V72.2 [facility] [id number] [place] [address] [id number] Apr, Dental examination V72.2 [facility] [address] [id number] [address] [place] [id number] March, Dental examination V72.2 [facility] [address] [facility] [id number] [address] [place] [address] March, [facility] [address] [facility] [id number] [address] [place] [address] Feb, [facility] [address] [place] [id number] [address] [place] [phone] Feb, [facility] [address] [id number] [address] [place] [address], [place] [address] Oct, [facility] [address] [id number] [address] [place] [address], [place] [address] Oct, [facility] [address] [id number] [address] [place] [address], [place] [address] Sep, [facility] [address] [id number] [address] [place] [address], [place] [address] Sep, [facility] [address] [id number] [address] [place] [address], [place] [address] Sep, [facility] [address] [id number] [address] [place] [address], [place] [address] Sep, [facility] [address] [id number] [address] [place] [address], [place] [address] Aug, [facility] [address] [id number] [address] [place] [address], [place] [address] Aug, [facility] [address] [id number] [address] [place] [address], [place] [address] Jul, [facility] [address] [id number] [address] [place] [address], [place] [address] Jul, [facility] [address] [id number] [address] [place] [address], [place] [address] Jun, [facility] [address] [id number] [address] [place] [address], [place] [address] Jun, [facility] [address] [id number] [address] [place] [address], [place] [address] May, [facility] [address] [id number] [address] [place] [address], [place] [address] May, [facility] [address] [id number] [address] [place] [address], [place] [address] May, [facility] [address] [id number] [address] [place] [address], [place] [address] May, [facility] [address] [id number] [address] [place] [address], [place] [address] May, [facility] [address] [id number] [address] [place] [address], [place] [address] May, [facility] [address] [id number] [address] [place] [address], [place] [address] Apr, [facility] [address] [id number] [address] [place] [address], [place] [address] Apr, [facility] [address] [id number] [address] [place] [address], [place] [address] March, [facility] [address] [id number] [address] [place] [address], [place] [address] March, [facility] [address] [id number] [address] [place] [address], [place] [address] March, [facility] [address] [id number] [address] [place] [address], [place] [address] March, [facility] [address] [id number] [address] [place] [address], [place] [address] Jan, [facility] [address] [id number] [address] [place] [address], [place] [address] Jan, [facility] [address] [id number] [address] [place] [address], [place] [address] Dec, [facility] [address] [id number] [address] [place] [address], [place] [address] Dec, [facility] [address] [id number] [address] [place] [address], [place] [address] Nov, [facility] [address] [id number] [address] [place] [address], [place] [address] Nov, [facility] [address] [id number] [address] [place] [address], [place] [address] Nov, [facility] [address] [id number] [address] [place] [address], [place] [address] Nov, [facility] [address] [id number] [address] [place] [address], [place] [address] Nov, [facility] [address] [id number] [address] [place] [address], [place] [address] Nov, [facility] [address] [id number] [address] [place] [address], [place] [address] Oct, [facility] [address] [id number] [address] [place] [address], [place] [address] Oct, [facility] [address] [id number] [address] [place] [address], [place] [address] Oct, [facility] [address] [id number] [address] [place] [address], [place] [address] Oct, [facility] [address] [id number] [address] [place] [address], [place] [address] Sep, [facility] [address] [id number] [address] [place] [address], [place] [address] Sep, [facility] [address] [id number] [address] [place] [address] Sep, [facility] [address] [id number] [address] [place] [address] Sep, [facility] [address] [id number] [address] [place] [address] Aug, [facility] [address] [id number] [address] [place] [address], [place] [address] Aug, [facility] [address] [id number] [address] [place] [address] Aug, [facility] [address] [id number] [address] [place] [address] Aug, [facility] [address] [id number] [address] [place] [address], [place] [address] Jul, [facility] [address] [id number] [address] [place] [address], [place] [address] Jun, [facility] [address] [id number] [address] [place] [address], [place] [address] Jun, [facility] [address] [id number] [address] [place] [address], [place] [address] Jun, [facility] [address] [id number] [address] [place] [address], [place] [address] Jun, [facility] [address] [id number] [address] [place] [address], [place] [address] Jun, [facility] [address] [id number] [address] [place] [address], [place] [address] May, [facility] [address] [id number] [address] [place] [address], [place] [address] Apr, [facility] [address] [id number] [address] [place] [address], [place] [address] Apr, [facility] [address] [id number] [address] [place] [address], [place] [address] March, [facility] [address] [id number] [address] [place] [address], [place] [address] March, [facility] [address] [id number] [address] [place] [address], [place] [address] March, [facility] [address] [id number] [address] [place] [address], [place] [address] March, [facility] [address] [id number] [address] [place] [address], [place] [address] March, [facility] [address] [id number] [address] [place] [address], [place] [address] Feb, [facility] [address] [id number] [address] [place] [address], [place] [address] Feb, [facility] [address] [id number] [address] [place] [address], [place] [address] 27 Jan, 2013 [facility] [address] [id number] [address] [place] [address], [place] [address] 25 Jan, 2013 [facility] [address] [id number] [address] [place] [address], [place] [address] 21 Jan, 2013 [facility] [address] [id number] [address] [place] [address], [place] [address] 15 Jan, 2013 [facility] [address] [id number] [address] [place] [address], [place] [address] 15 Jan, 2013 [facility] [address] [id number] [address] [place] [address], [place] [address] 14 Jan, 2013 [facility] [address] [id number] [address] [place] [address], [place] [address] 14 Jan, 2013 [facility] [address] [id number] [address] [place] [address], [place] [address] 13 Jan, 2013 [facility] [address] [id number] [address] [place] [address], [place] [address] 26 Dec, 2012 [facility] [address] [id number] [address] [place] [address], [place] [address] 18 Dec, 2012 [facility] [address] [id number] [address] [place] [address], [place] [address] 15 Dec, 2012 [facility] [address] [id number] [address] [place] [address], [place] [address] 15 Dec, 2012 [facility] [address] [id number] [address] [place] [address], [place] [address] 14 Dec, 2012 [facility] [address] [id number] [address] [place] [address], [place] [address] 13 Dec, 2012 [facility] [address] [id number] [address] [place] [address], [place] [address] 12 Dec, 2012 [facility] [address] [id number] [address] [place] [address] 05 Dec, 2012 [facility] [address] [facility] [id number] [address] [place] [id number] Nov, [facility] [address] [facility] [id number] [address] [place] [address] Nov, [facility] [address] [facility] [id number] [address] [place] [id number] Nov, [facility] [address] [facility] [id number] [address] [place] [address] Nov, IMMUNIZATIONS No Known Immunizations SOCIAL HISTORY Never Assessed REASON FOR VISIT [facility] PLAN OF CARE VITAL SIGNS MEDICATIONS Medication Instructions Dosage Frequency Start Date End Date Duration S tat Lorazepam 0.5 mg take 1 tablets by Oral route 1 time p er day PRN Oct, Active Azithromycin 250 mg 2 Tablet by Oral rou te on day 1 then take 1 daily for 4 days Aug, Active Vitamin D3 1,000 unit 2 capsule by Oral route 1 time per day May, Active amlodipine 2.5 mg 1 Tablet by Oral route 1 time per day Sep, Active Naproxen 500 mg take 1 tablet by Ora l route 2 times per day with food PRN back pain Sep, Active Calcium 600 mg 1 Capsule by Oral route 2 times per day 2 Jun, Active RESULTS No Results PROCEDURES No Known procedures [...]
--- OUTSIDE RECORDS SUMMARY | 2020-02-19 13:36 | XMS REPORT ---
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 Role Phone MARTY HENDERSONTA Unavailable PROBLEMS Type Condition ICD9-CM Code XHY45-HZ Code Onset Dates Condition S tatus SNOMED Code Problem Hyponatremia E87.1 Active 1212425 8 Problem Hypercholesteremia E78.00 Active 1 4400405 Problem Diverticulitis K57.92 Active 62250 6006 Problem History of hypertension Z86.79 Active 044591533 Problem Anxiety F41.9 Active 48060859 Problem Depression F32.9 Active 07393383 Problem History of spinal fusion for scoliosis Z98.1 Active 170722228 Problem Vitamin D deficiency E55.9 Active 60801840 ALLERGIES Substance Reaction Event Type Date Status Neosporin Unknown Drug Allergy Oct, Active Fosamax Unknown Drug Allergy Oct, Active Penicillin Unknown Drug Allergy Oct, Active Evista 60 Mg Tablet legs swelling Non Drug Allergy Oct, Act jaelyn ENCOUNTERS Encounter Location Date Diagnosis [facility] [address] [id number] [address] [place] [phone] Oct, Depression F32.9 ; Anxiety F 41.9 ; History of spinal fusion for scoliosis Z98.1 and History of hypertension Z86.79 [facility] [address] [facility] [id number] [address] [place] [address] Sep, Dysuria R30.0 and Acute cyst itis with hematuria N30.01 [facility] [address] [id number] [address] [place] [address] Aug, [facility] [address] [id number] [address] [place] [address] Jul, Depression F32.9 and Diverti culitis K57.92 [facility] [address] [address] May, Hyponatremia E87.1 [facility] [address] [address] May, [place] [address] [address] Apr, Vasovagal syncope R55 ; Diar jose of presumed infectious origin R19.7 ; Black eye of left side, initial encounter S00.12XA ; Skin tear of left forearm without complication, initial encounter S51.812A ; Dehydration E86.0 ; Vitamin D deficiency E55.9 and Weight loss R63.4 [place] [address] [address] Apr, Vitamin D deficiency E55.9 ; History of spinal fusion for scoliosis Z98.1 ; Anxiety F41.9 and Depression F32.9 [place] [address] [address] Jan, Essential hypertension I10 ; Depression F32.9 ; Anxiety F41.9 ; History of hypertension Z86.79 ; History of anemia Z86.2 and Hyponatremia E87.1 [place] [address] [id number] [address] [place] [address] Dec, Hyponatremia E87.1 [facility] [address] [id number] [address] [place] [address] Dec, Fever, unspecified fever cau se R50.9 and Acute nasopharyngitis J00 [place] [address] [id number] [place] [address] Nov, Hyponatremia E87.1 [facility] [address] [address] Oct, Essential hypertension I10 ; Long-term use of high-risk medication Z79.899 and Vitamin D deficiency E55.9 [place] [address] [id number] [place] [phone] Oct, Essential hypertension I10 ; Depression F32.9 ; Anxiety F41.9 ; Long-term use of high-risk medication Z79.899 and Vitamin D deficiency E55.9 [facility] [address] [facility] [id number] [address] [place] [address] Jun, History of spinal fusion for scoliosis Z98.1 ; Postoperative anemia D64.9 ; Essential hypertension I10 ; Depression F32.9 and Anxiety F41.9 [facility] [address] [facility] [id number] [address] [place] [phone] Jun, History of spinal fusion for scoliosis Z98.1 ; Postoperative anemia D64.9 ; Essential hypertension I10 ; Depression F32.9 and Anxiety F41.9 [place] [address] [address] [facility] [id number] [address] [place] [phone] May, History of spinal fusion for scoliosis Z98.1 ; Postoperative anemia D64.9 ; Essential hypertension I10 ; Depression F32.9 and Anxiety F41.9 [facility] [address] [facility] [id number] [address] [place] [address] May, [facility] [address] [facility] [id number] [address] [place] [address] Apr, Dysuria R30.0 and Acute cyst itis with hematuria N30.01 [facility] [address] [facility] [id number] [address] [place] [address] Apr, [facility] [address] [facility] [id number] [address] [place] [phone] Apr, [facility] [address] [facility] [id number] [address] [place] [address] Apr, [facility] [address] [facility] [id number] [address] [place] [address] Apr, Anxiety F41.9 [facility] [address] [facility] [id number] [address] [place] [address] Feb, Anxiety F41.9 [facility] [address] [id number] [address] [place] [address] Jan, [facility] [address] [facility] [id number] [address] [place] [address] Jan, Severe scoliosis M41.9 [facility] [address] [id number] [address] [place] [phone] Jan, [facility] [address] [facility] [id number] [address] [place] [address] Jan, Tremor of unknown origin R25 .1 ; Headache, unspecified headache type R51 ; Balance problem R26.89 ; Degenerative scoliosis M41.9 ; Pain in right hip M25.551 and Pain in left hip M25.552 [place] [address] [id number] [address] [place] [address] Jan, Tremor of unknown origin R25 .1 ; Headache, unspecified headache type R51 ; Balance problem R26.89 ; Degenerative scoliosis M41.9 ; Pain in right hip M25.551 and Pain in left hip M25.552 [facility] [address] [facility] [id number] [address] [place] [address] Jan, [place] [address] [id number] [address] [place] [address] Oct, Essential hypertension I10 ; Vitamin D deficiency E55.9 ; Depression F32.9 ; Anxiety F41.9 ; Lumbar pain M54.5 and Screening for colon cancer Z12.11 [facility] [address] [facility] [id number] [address] [place] [address] Aug, [facility] [address] [facility] [id number] [address] [place] [address] Dec, [facility] [address] [facility] [id number] [address] [place] [address] Dec, Hammertoe M20.40 [facility] [address] [id number] [address] [place] [phone] Oct, [facility] [address] [id number] [address] [place] [address] Oct, Essential hypertension I10 ; Vitamin D deficiency E55.9 ; Depression F32.9 ; Anxiety F41.9 ; Lumbar pain M54.5 and Hammer toe of left foot M20.42 [facility] [address] [facility] [id number] [address] [place] [phone] Sep, Acute upper respiratory infe ction, unspecified J06.9 and Other viral agents as the cause of diseases classified elsewhere B97.89 [facility] [address] [id number] [place] [id number] Apr, Dental examination V72.2 [facility] [address] [id number] [address] [place] [address] [id number] Apr, Dental examination V72.2 [facility] [address] [id number] [place] [address] [id number] Apr, Dental examination V72.2 [facility] [address] [id number] [place] [address] [id number] Apr, Dental examination V72.2 [facility] [address] [id number] [address] [place] [address] [id number] March, Dental examination V72.2 [facility] [address] [id number] [address] [place] [phone] March, [facility] [address] [id number] [address] [place] [phone] Feb, [facility] [address] [facility] [id number] [address] [place] [phone] Feb, [facility] [address] [facility] [id number] [address] [place] [phone] Oct, [facility] [address] [id number] [address] [place] [phone] Oct, [facility] [address] [id number] [address] [place] [address], [place] [address] Sep, [facility] [address] [id number] [address] [place] [address], [place] [phone] Sep, [facility] [address] [id number] [address] [place] [address], [place] [phone] Sep, [facility] [address] [id number] [address] [place] [address], [place] [address] Sep, [facility] [address] [id number] [address] [place] [address], [place] [phone] Aug, [facility] [address] [id number] [address] [place] [address], [place] [address] Aug, [facility] [address] [id number] [address] [place] [address], [place] [phone] Jul, [facility] [address] [id number] [address] [place] [address], [place] [phone] Jul, [facility] [address] [id number] [address] [place] [address], [place] [address] Jun, [facility] [address] [id number] [address] [place] [address], [place] [address] Jun, [facility] [address] [id number] [address] [place] [address], [place] [address] May, [facility] [address] [id number] [address] [place] [address], [place] [address] May, [facility] [address] [id number] [address] [place] [address], [place] [phone] May, [facility] [address] [id number] [address] [place] [address], [place] [address] May, [facility] [address] [id number] [address] [place] [address], [place] [address] May, [facility] [address] [id number] [address] [place] [address], [place] [phone] May, [facility] [address] [id number] [address] [place] [address], [place] [address] Apr, [facility] [address] [id number] [address] [place] [address], [place] [phone] Apr, [facility] [address] [id number] [address] [place] [address], [place] [phone] March, [facility] [address] [id number] [address] [place] [address], [place] [phone] March, [facility] [address] [id number] [address] [place] [address], [place] [phone] March, [facility] [address] [id number] [address] [place] [address], [place] [phone] March, [facility] [address] [id number] [address] [place] [address], [place] [address] Jan, [facility] [address] [id number] [address] [place] [address], [place] [address] Jan, [facility] [address] [id number] [address] [place] [address], [place] [phone] Dec, [facility] [address] [id number] [address] [place] [address], [place] [address] Dec, [facility] [address] [id number] [address] [place] [address], [place] [address] Nov, [facility] [address] [id number] [address] [place] [address], [place] [address] Nov, [facility] [address] [id number] [address] [place] [address], [place] [address] Nov, [facility] [address] [id number] [address] [place] [address], [place] [address] Nov, [facility] [address] [id number] [address] [place] [address], [place] [address] Nov, [facility] [address] [id number] [address] [place] [address], [place] [phone] Nov, [facility] [address] [id number] [address] [place] [address], [place] [address] Oct, [facility] [address] [id number] [address] [place] [address], [place] [phone] Oct, [facility] [address] [id number] [address] [place] [address], [place] [address] Oct, [facility] [address] [id number] [address] [place] [address], [place] [phone] Oct, [facility] [address] [id number] [address] [place] [address], [place] [address] Sep, [facility] [address] [id number] [address] [place] [address], [place] [address] Sep, [facility] [address] [id number] [address] [place] [address], [place] [id number] Sep, [facility] [address] [id number] [address] [place] [address], [place] [address] Sep, [facility] [address] [id number] [address] [place] [address], [place] [address] Aug, [facility] [address] [id number] [address] [place] [address], [place] [phone] Aug, [facility] [address] [id number] [address] [place] [address], [place] [address] Aug, [facility] [address] [id number] [address] [place] [address], [place] [address] Aug, [facility] [address] [id number] [address] [place] [address], [place] [address] Jul, [facility] [address] [id number] [address] [place] [address], [place] [address] Jun, [facility] [address] [id number] [address] [place] [address], [place] [address] Jun, [facility] [address] [id number] [facility] [place] [address] Jun, [facility] [address] [id number] [address] [place] [address], [place] [address] Jun, [facility] [address] [id number] [address] [place] [address], [place] [address] Jun, [facility] [address] [id number] [address] [place] [address], [place] [address] May, [facility] [address] [id number] [address] [place] [address], [place] [address] Apr, [facility] [address] [id number] [address] [place] [address], [place] [address] Apr, [facility] [address] [id number] [address] [place] [address], [place] [address] March, [facility] [address] [id number] [address] [place] [address], [place] [address] March, [facility] [address] [id number] [address] [place] [address], [place] [address] March, [facility] [address] [id number] [address] [place] [address], [place] [address] March, [facility] [address] [id number] [address] [place] [address], [place] [address] March, [facility] [address] [id number] [address] [place] [address], [place] [address] Feb, [facility] [address] [id number] [address] [place] [address], [place] [address] Feb, [facility] [address] [id number] [address] [place] [address], [place] [address] Jan, [facility] [address] [id number] [address] [place] [address], [place] [address] Jan, [facility] [address] [id number] [address] [place] [address], [place] [phone] 21 Jan, 2013 [facility] [address] [id number] [address] [place] [address], [place] [address] 15 Jan, 2013 [facility] [address] [id number] [address] [place] [address], [place] [phone] 15 Jan, 2013 [facility] [address] [id number] [address] [place] [address], [place] [address] 14 Jan, 2013 [facility] [address] [id number] [address] [place] [address], [place] [address] 14 Jan, 2013 [facility] [address] [id number] [address] [place] [address], [place] [address] 13 Jan, 2013 [facility] [address] [id number] [address] [place] [address], [place] [address] 26 Dec, 2012 [facility] [address] [id number] [address] [place] [address], [place] [phone] 18 Dec, 2012 [facility] [address] [id number] [address] [place] [address], [place] [phone] 15 Dec, 2012 [facility] [address] [id number] [address] [place] [address], [place] [address] 15 Dec, 2012 [facility] [address] [id number] [address] [place] [address], [place] [address] 14 Dec, 2012 [facility] [address] [id number] [address] [place] [address], [place] [address] 13 Dec, 2012 [facility] [address] [id number] [address] [place] [address], [place] [address] 12 Dec, 2012 [facility] [address] [id number] [address] [place] [address], [place] [phone] 05 Dec, 2012 [facility] [address] [id number] [address] [place] [address], [place] [phone] 28 Nov, 2012 [facility] [address] [id number] [address] [place] [address], [place] [address] Nov, [facility] [address] [facility] [id number] [address], [place] [address] Nov, [facility] [address] [facility] [id number] [address] [place] [address] Nov, IMMUNIZATIONS No Known Immunizations SOCIAL HISTORY Never Assessed REASON FOR VISIT Establish Care Braulio Henry MA PLAN OF CARE Activity Details Follow Up 6 months or as indicated by lab Reason:[facility] VITAL SIGNS Height 64 in 2018-10-15 Weight 101.2 lbs 2018-10-15 Temperature 97.9 degrees Fahrenheit 2018-10-15 Heart Rate 74 bpm 2018-10-15 Respiratory Rate 20 2018-10-15 BMI 17.37 kg/m2 2018-10-15 Blood pressure systolic 118 mmHg 2018-10-15 Blood pressure diastolic 68 mmHg 2018-10-15 MEDICATIONS Medication Instructions Dosage Frequency Start Date End Date Duration S tatus Tramadol HCl 50 mg Orally every 6 hrs 1 tablet as needed 6h Active Calcium 600 mg Orally Twice a day 1 Capsule by Oral route 2 times p er day 12h Jun, 30 days Active Vitamin C 500 mg Orally Once a day 1 tablet 24h 90 d ays Active Fluoxetine HCl 20 mg Orally once daily 1 capsule 24h Active Vitamin D 1000 UNIT Orally 2 times a day 1 tablet 12h Oct 90 days Active Lorazepam 0.5 MG Orally Once a day 1 tablet as needed 24h 28 days Active RESULTS No Results PROCEDURES Procedure Date Ordered Result Body Site [facility] VISIT ESTABLISHED PATIENT Oct 15, 2018 INSTRUCTIONS MEDICATIONS ADMINISTERED No Known Medications MEDICAL [...]
--- OUTSIDE RECORDS SUMMARY | 2020-02-19 13:36 | XMS REPORT ---
Author Author Sherly SOTOMAYOR Organization [facility] Address [address] [place] [address] Care Team Providers Care [place] Artist Name Role Phone ESTELLA SOTOMAYOR Unavailable PROBLEMS Type Condition ICD9-CM Code IIO15-CH Code Onset Dates Condition S tatus SNOMED Code Problem Hypercholesteremia E78.00 Active 1 0731545 Problem Hyponatremia E87.1 Active 0626618 8 Problem History of hypertension Z86.79 Active 213160646 Problem Diverticulitis K57.92 Active 69350 6006 Problem Depression F32.9 Active 19950350 Problem Anxiety F41.9 Active 07248997 Problem Vitamin D deficiency E55.9 Active 75293304 Problem History of spinal fusion for scoliosis Z98.1 Active [id number] ALLERGIES No Information ENCOUNTERS Encounter Location Date Diagnosis [facility] [address] [facility] [id number] [address] [place] [address] Jul, [facility] [address] [facility] [id number] [address] [place] [address] Apr, Anxiety F41.9 ; History of s arabella fusion for scoliosis Z98.1 and Long-term use of high-risk medication Z79.899 [facility] [address] [facility] [id number] [address] [place] [address] Nov, Depression F32.9 [facility] [address] [facility] [id number] [address] [place] [address] Oct, Depression F32.9 ; Anxiety F 41.9 ; History of spinal fusion for scoliosis Z98.1 and History of hypertension Z86.79 [facility] [address] [facility] [id number] [address] [place] [address] Sep, Dysuria R30.0 and Acute cyst itis with hematuria N30.01 [facility] [address] [place] [id number] [address] [place] [address] Aug, [place] [address] [address] Jul, Depression F32.9 and Diverti culitis K57.92 [place] [address] [address] May, Hyponatremia E87.1 [facility] [address] [address] May, [place] [address] [address] Apr, Vasovagal syncope R55 ; Diar jose of presumed infectious origin R19.7 ; Black eye of left side, initial encounter S00.12XA ; Skin tear of left forearm without complication, initial encounter S51.812A ; Dehydration E86.0 ; Vitamin D deficiency E55.9 and Weight loss R63.4 [facility] [address] [address] Apr, Vitamin D deficiency E55.9 ; History of spinal fusion for scoliosis Z98.1 ; Anxiety F41.9 and Depression F32.9 [place] [address] [address] Jan, Essential hypertension I10 ; Depression F32.9 ; Anxiety F41.9 ; History of hypertension Z86.79 ; History of anemia Z86.2 and Hyponatremia E87.1 [facility] [address] [place] [id number] [address] [place] [address] Dec, Hyponatremia E87.1 [facility] [address] [place] [id number] [address] [place] [address] Dec, Fever, unspecified fever cau se R50.9 and Acute nasopharyngitis J00 [facility] [address] [address] Nov, Hyponatremia E87.1 [place] [address] [facility] [id number] [address] [place] [address] Oct, Essential hypertension I10 ; Long-term use of high-risk medication Z79.899 and Vitamin D deficiency E55.9 [place] [address] [facility] [id number] [address] [place] [address] Oct, Essential hypertension I10 ; Depression F32.9 ; Anxiety F41.9 ; Long-term use of high-risk medication Z79.899 and Vitamin D deficiency E55.9 [place] [address] [facility] [id number] [address] [place] [address] Jun, History of spinal fusion for scoliosis Z98.1 ; Postoperative anemia D64.9 ; Essential hypertension I10 ; Depression F32.9 and Anxiety F41.9 [place] [address] [place] [id number] [address] [place] [address] Jun, History of spinal fusion for scoliosis Z98.1 ; Postoperative anemia D64.9 ; Essential hypertension I10 ; Depression F32.9 and Anxiety F41.9 [place] [id number] [place] [address] May, History of spinal fusion for scoliosis Z98.1 ; Postoperative anemia D64.9 ; Essential hypertension I10 ; Depression F32.9 and Anxiety F41.9 [place] [address] [place] [id number] [address] [place] [address] May, [facility] [address] [facility] [id number] [address] [place] [address] Apr, Dysuria R30.0 and Acute cyst itis with hematuria N30.01 [facility] [address] [place] [id number] [address] [place] [address] Apr, [facility] [address] [place] [id number] [address] [place] [address] Apr, [place] [address] [place] [id number] [address] [place] [address] Apr, [place] [address] [place] [id number] [place] [address] Apr, Anxiety F41.9 [place] [address] [facility] [id number] [address] [place] [address] Feb, Anxiety F41.9 [place] [address] [place] [id number] [place] [address] Jan, [place] [address] [place] [id number] [address] [place] [address] Jan, Severe scoliosis M41.9 [place] [address] [place] [id number] [place] [address] Jan, [place] [address] [place] [id number] [place] [address] Jan, Tremor of unknown origin R25 .1 ; Headache, unspecified headache type R51 ; Balance problem R26.89 ; Degenerative scoliosis M41.9 ; Pain in right hip M25.551 and Pain in left hip M25.552 [place] [address] [address] Jan, Tremor of unknown origin R25 .1 ; Headache, unspecified headache type R51 ; Balance problem R26.89 ; Degenerative scoliosis M41.9 ; Pain in right hip M25.551 and Pain in left hip M25.552 [place] [address] [place] [address] Jan, [place] [address] [address] Oct, Essential hypertension I10 ; Vitamin D deficiency E55.9 ; Depression F32.9 ; Anxiety F41.9 ; Lumbar pain M54.5 and Screening for colon cancer Z12.11 [place] [address] [place] [id number] [address] [place] [address] Aug, [facility] [address] [place] [id number] [place] [address] Dec, [facility] [address] [place] [id number] [address] [place] [address] Dec, Hammertoe M20.40 [facility] [address] [place] [id number] [place] [address] Oct, [facility] [address] [place] [id number] [place] [address] Oct, Essential hypertension I10 ; Vitamin D deficiency E55.9 ; Depression F32.9 ; Anxiety F41.9 ; Lumbar pain M54.5 and Hammer toe of left foot M20.42 [facility] [address] [place] [id number] [address] [place] [address] Sep, Acute upper respiratory infe ction, unspecified J06.9 and Other viral agents as the cause of diseases classified elsewhere B97.89 [facility] [address] [place] [id number] [place] [address] [id number] Apr, Dental examination V72.2 [facility] [address] [id number] Apr, Dental examination V72.2 [facility] [address] [place] [id number] [place] [id number] Apr, Dental examination V72.2 [facility] [address] [place] [id number] [place] [id number] Apr, Dental examination V72.2 [facility] [address] [place] [id number] [place] [address] [id number] March, Dental examination V72.2 [facility] [address] [place] [id number] [address] [place] [address] March, [facility] [address] [place] [id number] [address] [place] [address] Feb, [facility] [address] [id number] [address] [place] [address], [place] [address] Feb, [facility] [address] [id number] [address] [place] [address], [place] [address] Oct, [facility] [address] [id number] [address] [place] [address], [place] [address] Oct, [facility] [address] [id number] [address] [place] [address], [place] [address] Sep, [facility] [address] [id number] [address] [place] [address], [place] [address] Sep, [facility] [address] [id number] [address] [place] [address], [place] [address] Sep, [facility] [address] [id number] [address] [place] [address], [place] [address] Sep, [facility] [address] [id number] [address] [place] [address], [place] [address] Aug, [facility] [address] [id number] [address] [place] [address], [place] [address] Aug, [facility] [address] [id number] [address] [place] [address], [place] [address] Jul, [facility] [address] [id number] [address] [place] [address], [place] [address] Jul, [facility] [address] [id number] [address] [place] [address], [place] [address] Jun, [facility] [address] [id number] [address] [place] [address], [place] [address] Jun, [facility] [address] [id number] [address] [place] [address], [place] [address] May, [facility] [address] [id number] [address] [place] [address], [place] [address] May, [facility] [address] [id number] [address] [place] [address], [place] [address] May, [facility] [address] [id number] [address] [place] [address], [place] [address] May, [facility] [address] [id number] [address] [place] [address], [place] [address] May, [facility] [address] [id number] [address] [place] [address], [place] [address] May, [facility] [address] [id number] [address] [place] [address], [place] [address] Apr, [facility] [address] [id number] [address] [place] [address], [place] [address] Apr, [facility] [address] [id number] [address] [place] [address], [place] [address] March, [facility] [address] [id number] [address] [place] [address], [place] [address] March, [facility] [address] [id number] [address] [place] [address], [place] [address] March, [facility] [address] [id number] [address] [place] [address], [place] [address] March, [facility] [address] [id number] [address] [place] [address], [place] [address] Jan, [facility] [address] [id number] [address] [place] [address], [place] [address] Jan, [facility] [address] [id number] [address] [place] [address], [place] [address] Dec, [facility] [address] [id number] [address] [place] [address], [place] [address] Dec, [facility] [address] [id number] [address] [place] [address], [place] [address] Nov, [facility] [address] [id number] [address] [place] [address], [place] [address] Nov, [facility] [address] [id number] [address] [place] [address], [place] [address] 07 Nov, 2013 [facility] [address] [id number] [address] [place] [address], [place] [address] Nov, [facility] [address] [id number] [address] [place] [address], [place] [address] Nov, [facility] [address] [id number] [address] [place] [address], [place] [address] Nov, [facility] [address] [id number] [address] [place] [address], [place] [address] Oct, [facility] [address] [id number] [address] [place] [address], [place] [address] Oct, [facility] [address] [id number] [address] [place] [address], [place] [address] Oct, [facility] [address] [id number] [address] [place] [address], [place] [address] Oct, [facility] [address] [id number] [address] [place] [address], [place] [address] Sep, [facility] [address] [id number] [address] [place] [address], [place] [address] Sep, [facility] [address] [id number] [address] [place] [address], [place] [address] Sep, [facility] [address] [id number] [address] [place] [address], [place] [address] Sep, [facility] [address] [id number] [address] [place] [address], [place] [address] Aug, [facility] [address] [id number] [address] [place] [address], [place] [address] Aug, [facility] [address] [id number] [address] [place] [address], [place] [address] Aug, [facility] [address] [id number] [address] [place] [address], [place] [address] Aug, [facility] [address] [id number] [address] [place] [address], [place] [address] Jul, [facility] [address] [id number] [address] [place] [address], [place] [address] Jun, [facility] [address] [id number] [address] [place] [address], [place] [address] Jun, [facility] [address] [id number] [address] [place] [address], [place] [address] Jun, [facility] [address] [id number] [address] [place] [address], [place] [address] Jun, [facility] [address] [id number] [address] [place] [address], [place] [address] Jun, [facility] [address] [id number] [address] [place] [address], [place] [address] May, [facility] [address] [id number] [address] [place] [address], [place] [address] Apr, [facility] [address] [id number] [address] [place] [address], [place] [address] Apr, [facility] [address] [id number] [address] [place] [address], [place] [address] March, [facility] [address] [id number] [address] [place] [address], [place] [address] March, [facility] [address] [id number] [address] [place] [address], [place] [address] March, [facility] [address] [id number] [address] [place] [address], [place] [address] March, [facility] [address] [id number] [address] [place] [address], [place] [address] March, [facility] [address] [id number] [address] [place] [address], [place] [address] Feb, [facility] [address] [id number] [address] [place] [address], [place] [address] 15 Feb, 2013 [facility] [address] [id number] [address] [place] [address], [place] [address] 27 Jan, 2013 [facility] [address] [id number] [address] [place] [address], [place] [address] 25 Jan, 2013 [facility] [address] [id number] [address] [place] [address], [place] [address] 21 Jan, 2013 [facility] [address] [id number] [address] [place] [address], [place] [address] 15 Jan, 2013 [facility] [address] [id number] [address] [place] [address], [place] [address] 15 Jan, 2013 [facility] [address] [id number] [address] [place] [address], [place] [address] 14 Jan, 2013 [facility] [address] [id number] [address] [place] [address], [place] [address] 14 Jan, 2013 [facility] [address] [id number] [address] [place] [address], [place] [address] 13 Jan, 2013 [facility] [place] [address] [id number] [address] [place] [address], [place] [address] 26 Dec, 2012 [facility] [address] [id number] [address] [place] [address], [place] [address] 18 Dec, 2012 [facility] [place] [address] [id number] [address] [place] [address], [place] [address] 15 Dec, 2012 [facility] [address] [id number] [address] [place] [address], [place] [address] 15 Dec, 2012 [facility] [address] [id number] [address] [place] [address], [place] [address] 14 Dec, 2012 [facility] [address] [id number] [address] [place] [address], [place] [address] 13 Dec, 2012 [facility] [address] [id number] [address] [place] [address], [place] [address] 12 Dec, 2012 [facility] [address] [facility] [id number] [address] [place] [address] Dec, [facility] [address] [facility] [id number] [address] [place] [address] Nov, [facility] [address] [facility] [id number] [address] [place] [address] Nov, [facility] [address] [facility] [id number] [address] [place] [address] Nov, [facility] [address] [facility] [id number] [address] [place] [address] Nov, IMMUNIZATIONS No Known Immunizations SOCIAL HISTORY [...]
--- OUTSIDE RECORDS SUMMARY | 2020-02-19 13:36 | XMS REPORT ---
Author Author Sherly Durand Doctor Organization [facility] Address Unknown Phone Unavailable Care Team Providers Care Quality Control Microbiology Supervisor Name Role Phone Migration, Doctor Unavailable Unavailable PROBLEMS Type Condition ICD9-CM Code [id number] Code Onset Dates Condition S tatus SNOMED Code Problem Hypercholesteremia E78.00 Active 1 1653169 Problem Hyponatremia E87.1 Active 6911215 8 Problem History of hypertension Z86.79 Active 518199761 Problem Diverticulitis K57.92 Active 06401 6006 Problem Depression F32.9 Active 82644569 Problem Anxiety F41.9 Active 34856396 Problem Vitamin D deficiency E55.9 Active 94617070 Problem History of spinal fusion for scoliosis Z98.1 Active [id number] ALLERGIES No Information ENCOUNTERS Encounter Location Date Diagnosis [facility] [id number] [place] [address] Apr, [facility] [address] [place] [id number] [address] [place] [address] Nov, Depression F32.9 [facility] [address] [place] [id number] [address] [place] [address] Oct, Depression F32.9 ; Anxiety F 41.9 ; History of spinal fusion for scoliosis Z98.1 and History of hypertension Z86.79 [facility] [address] [facility] [id number] [address] [place] [address] Sep, Dysuria R30.0 and Acute cyst itis with hematuria N30.01 [facility] [address] [facility] [id number] [address] [place] [address] Aug, [facility] [address] [facility] [id number] [address] [place] [address] 24 Jul, 2018 Depression F32.9 and Diverti culitis K57.92 [facility] [address] [address] May, Hyponatremia E87.1 [facility] [address] [address] May, [facility] [address] [address] Apr, Vasovagal syncope R55 ; Diar jose of presumed infectious origin R19.7 ; Black eye of left side, initial encounter S00.12XA ; Skin tear of left forearm without complication, initial encounter S51.812A ; Dehydration E86.0 ; Vitamin D deficiency E55.9 and Weight loss R63.4 [place] [address] [address] Apr, Vitamin D deficiency E55.9 ; History of spinal fusion for scoliosis Z98.1 ; Anxiety F41.9 and Depression F32.9 [place] [address] [address] Jan, Essential hypertension I10 ; Depression F32.9 ; Anxiety F41.9 ; History of hypertension Z86.79 ; History of anemia Z86.2 and Hyponatremia E87.1 [place] [address] [address] Dec, Hyponatremia E87.1 [facility] [address] [address] Dec, Fever, unspecified fever cau se R50.9 and Acute nasopharyngitis J00 [facility] [address] [address] Nov, Hyponatremia E87.1 [place] [address] [address] Oct, Essential hypertension I10 ; Long-term use of high-risk medication Z79.899 and Vitamin D deficiency E55.9 [place] [address] [address] Oct, Essential hypertension I10 ; Depression F32.9 ; Anxiety F41.9 ; Long-term use of high-risk medication Z79.899 and Vitamin D deficiency E55.9 [facility] [address] [facility] [id number] [address] [place] [address] Jun, History of spinal fusion for scoliosis Z98.1 ; Postoperative anemia D64.9 ; Essential hypertension I10 ; Depression F32.9 and Anxiety F41.9 [facility] [address] [facility] [id number] [address] [place] [address] Jun, History of spinal fusion for scoliosis Z98.1 ; Postoperative anemia D64.9 ; Essential hypertension I10 ; Depression F32.9 and Anxiety F41.9 [place] [address] [facility] [id number] [address] [place] [address] May, History of spinal fusion for scoliosis Z98.1 ; Postoperative anemia D64.9 ; Essential hypertension I10 ; Depression F32.9 and Anxiety F41.9 [facility] [address] [facility] [id number] [address] [place] [address] May, [facility] [address] [facility] [id number] [address] [place] [address] Apr, Dysuria R30.0 and Acute cyst itis with hematuria N30.01 [facility] [address] [facility] [id number] [address] [place] [address] Apr, [facility] [address] [facility] [id number] [address] [place] [address] Apr, [facility] [address] [facility] [id number] [address] [place] [address] Apr, [facility] [address] [facility] [id number] [address] [place] [address] Apr, Anxiety F41.9 [facility] [address] [facility] [id number] [address] [place] [address] Feb, Anxiety F41.9 [facility] [address] [facility] [id number] [address] [place] [address] Jan, [facility] [address] [facility] [id number] [address] [place] [address] Jan, Severe scoliosis M41.9 [facility] [address] [facility] [id number] [address] [place] [address] Jan, [facility] [address] [facility] [id number] [address] [place] [address] 15 Jan, 2017 Tremor of unknown origin R25 .1 ; Headache, unspecified headache type R51 ; Balance problem R26.89 ; Degenerative scoliosis M41.9 ; Pain in right hip M25.551 and Pain in left hip M25.552 [place] [address] [place] [id number] [address] [place] [address] 14 Jan, 2017 Tremor of unknown origin R25 .1 ; Headache, unspecified headache type R51 ; Balance problem R26.89 ; Degenerative scoliosis M41.9 ; Pain in right hip M25.551 and Pain in left hip M25.552 [place] [address] [facility] [id number] [address] [place] [address] Jan, [place] [address] [place] [id number] [address] [place] [address] Oct, Essential hypertension I10 ; Vitamin D deficiency E55.9 ; Depression F32.9 ; Anxiety F41.9 ; Lumbar pain M54.5 and Screening for colon cancer Z12.11 [facility] [address] [facility] [id number] [address] [place] [address] Aug, [place] [address] [facility] [id number] [address] [place] [address] Dec, [facility] [address] [facility] [id number] [address] [place] [address] Dec, Hammertoe M20.40 [place] [address] [place] [id number] [address] [place] [address] Oct, [facility] [address] [id number] [address] [place] [address] Oct, Essential hypertension I10 ; Vitamin D deficiency E55.9 ; Depression F32.9 ; Anxiety F41.9 ; Lumbar pain M54.5 and Hammer toe of left foot M20.42 [facility] [address] [id number] [address] [place] [address] Sep, Acute upper respiratory infe ction, unspecified J06.9 and Other viral agents as the cause of diseases classified elsewhere B97.89 [facility] [address] [id number] [place] [address] [id number] Apr, Dental examination V72.2 [facility] [address] [id number] [address] [place] [id number] Apr, Dental examination V72.2 [facility] [address] [id number] [place] [address] [id number] Apr, Dental examination V72.2 [facility] [address] [id number] [address] [place] [address] [id number] Apr, Dental examination V72.2 [facility] [id number] [place] [address] [id number] March, Dental examination V72.2 [facility] [address] [id number] [address] [place] [address] March, [facility] [address] [id number] [address] [place] [address] Feb, [facility] [address] [id number] [address] [place] [address] Feb, [facility] [address] [id number] [address] [place] [address] Oct, [facility] [address] [id number] [address] [place] [address] Oct, [facility] [address] [id number] [address] [place] [address], [place] [address] Sep, [facility] [address] [id number] [address] [place] [address], [place] [address] Sep, [facility] [address] [id number] [address] [place] [address], [place] [address] Sep, [facility] [address] [id number] [address] [place] [address], [place] [address] Sep, [facility] [address] [id number] [address] [place] [address], [place] [address] Aug, [facility] [address] [id number] [address] [place] [address], [place] [address] Aug, [facility] [address] [id number] [address] [place] [address], [place] [address] Jul, [facility] [address] [id number] [address] [place] [address], [place] [address] Jul, [facility] [address] [id number] [address] [place] [address], [place] [address] Jun, [facility] [address] [id number] [address] [place] [address], [place] [address] Jun, [facility] [address] [id number] [address] [place] [address], [place] [address] May, [facility] [address] [id number] [address] [place] [address], [place] [address] May, [facility] [address] [id number] [address] [place] [address], [place] [address] May, [facility] [address] [id number] [address] [place] [address], [place] [address] May, [facility] [address] [id number] [address] [place] [address], [place] [address] May, [facility] [address] [id number] [address] [place] [address], [place] [address] May, [facility] [address] [id number] [facility] [place] [address] Apr, [facility] [address] [id number] [address] [place] [address], [place] [address] Apr, [facility] [address] [id number] [address] [place] [address], [place] [address] March, [facility] [address] [id number] [address] [place] [address], [place] [address] March, [facility] [address] [id number] [address] [place] [address], [place] [address] March, [facility] [address] [id number] [address] [place] [address], [place] [address] March, [facility] [address] [id number] [address] [place] [address], [place] [address] Jan, [facility] [address] [id number] [address] [place] [address], [place] [address] Jan, [facility] [address] [id number] [address] [place] [address], [place] [address] Dec, [facility] [address] [id number] [address] [place] [address], [place] [address] Dec, [facility] [address] [id number] [address] [place] [address], [place] [address] Nov, [facility] [address] [id number] [address] [place] [address], [place] [address] Nov, [facility] [address] [id number] [address] [place] [address], [place] [address] Nov, [facility] [address] [id number] [address] [place] [address], [place] [address] Nov, [facility] [address] [id number] [address] [place] [address], [place] [address] Nov, [facility] [address] [id number] [address] [place] [address], [place] [address] Nov, [facility] [address] [id number] [address] [place] [address], [place] [address] Oct, [facility] [address] [id number] [address] [place] [address], [place] [address] Oct, [facility] [address] [id number] [address] [place] [address], [place] [address] Oct, [facility] [address] [id number] [address] [place] [address], [place] [address] Oct, [facility] [address] [id number] [address] [place] [address], [place] [address] Sep, [facility] [address] [id number] [address] [place] [address], [place] [address] Sep, [facility] [address] [id number] [address] [place] [address], [place] [address] Sep, [facility] [address] [id number] [address] [place] [address], [place] [address] Sep, [facility] [address] [id number] [address] [place] [address], [place] [address] Aug, [facility] [address] [id number] [address] [place] [address], [place] [address] Aug, [facility] [address] [id number] [address] [place] [address], [place] [address] Aug, [facility] [address] [id number] [address] [place] [address], [place] [address] Aug, [facility] [address] [id number] [address] [place] [address], [place] [address] Jul, [facility] [address] [id number] [address] [place] [address], [place] [address] Jun, [facility] [address] [id number] [address] [place] [address], [place] [address] Jun, [facility] [address] [id number] [address] [place] [address], [place] [address] Jun, [facility] [address] [id number] [address] [place] [address], [place] [address] Jun, [facility] [address] [id number] [address] [place] [address], [place] [address] Jun, [facility] [address] [id number] [address] [place] [address], [place] [address] May, [facility] [address] [id number] [address] [place] [address], [place] [address] Apr, [facility] [address] [id number] [address] [place] [address], [place] [address] Apr, [facility] [address] [id number] [address] [place] [address], [place] [address] March, [facility] [address] [id number] [address] [place] [address], [place] [address] March, [facility] [address] [id number] [address] [place] [address], [place] [address] March, [facility] [address] [id number] [address] [place] [address], [place] [address] March, [facility] [address] [id number] [address] [place] [address], [place] [address] March, [facility] [address] [id number] [address] [place] [address], [place] [address] Feb, [facility] [address] [id number] [address] [place] [address], [place] [address] Feb, [facility] [address] [id number] [address] [place] [address], [place] [address] Jan, [facility] [address] [id number] [address] [place] [address], [place] [address] Jan, [facility] [address] [id number] [address] [address] 21 Jan, 2013 [facility] [address] [id number] [address] [place] [address], [place] [address] 15 Jan, 2013 [facility] [address] [id number] [address] [place] [address], [place] [address] 15 Jan, 2013 [facility] [address] [id number] [address] [place] [address], [place] [address] 14 Jan, 2013 [facility] [address] [id number] [address] [place] [address], [place] [address] 14 Jan, 2013 [facility] [address] [id number] [address] [place] [address], [place] [address] 13 Jan, 2013 [facility] [address] [id number] [address] [place] [address], [place] [address] 26 Dec, 2012 [facility] [address] [id number] [address] [place] [address], [place] [address] 18 Dec, 2012 [facility] [address] [id number] [address] [place] [address], [place] [address] 15 Dec, 2012 [facility] [address] [id number] [address] [place] [address], [place] [address] 15 Dec, 2012 [facility] [address] [id number] [address] [place] [address], [place] [address] 14 Dec, 2012 [facility] [address] [id number] [address] [place] [address], [place] [address] 13 Dec, 2012 [facility] [address] [id number] [address] [place] [address], [place] [address] 12 Dec, 2012 [facility] [address] [id number] [address] [place] [address], [place] [address] 05 Dec, 2012 [facility] [address] [id number] [address] [place] [id number] 28 Nov, 2012 [facility] [address] [id number] [address] [place] [address] Nov, [facility] [address] [facility] [id number] [place] [address] Nov, [facility] [address] [facility] [id number] [address] [place] [address] 10 Nov, 2012 IMMUNIZATIONS No Known Immunizations SOCIAL HISTORY Never Assessed REASON FOR VISIT [facility] [place] C[place] VITAL SIGNS MEDICATIONS Unknown [...]
--- OUTSIDE RECORDS SUMMARY | 2020-02-19 13:36 | XMS REPORT ---
Author Author Sherly SOTOMAYOR Organization [facility] Address [address] [place] [address] Care Team Providers Care Lye Machine Operator Name Role Phone ESTELLA SOTOMAYOR Unavailable PROBLEMS Type Condition ICD9-CM Code HPW22-VU Code Onset Dates Condition S tatus SNOMED Code Problem Hypercholesteremia E78.00 Active 1 3384765 Problem Hyponatremia E87.1 Active 3915052 8 Problem History of hypertension Z86.79 Active 725557129 Problem Diverticulitis K57.92 Active 83109 6006 Problem Depression F32.9 Active 88471270 Problem Anxiety F41.9 Active 28444952 Problem Vitamin D deficiency E55.9 Active 81185440 Problem History of spinal fusion for scoliosis Z98.1 Active [id number] ALLERGIES No Information ENCOUNTERS Encounter Location Date Diagnosis [facility] [address] [facility] [id number] [address] [place] [phone] Jul, [facility] [address] [facility] [id number] [address] [place] [address] Apr, Anxiety F41.9 ; History of s arabella fusion for scoliosis Z98.1 and Long-term use of high-risk medication Z79.899 [facility] [address] [facility] [id number] [address] [place] [address] Nov, Depression F32.9 [facility] [address] [facility] [id number] [address] [place] [address] Oct, Depression F32.9 ; Anxiety F 41.9 ; History of spinal fusion for scoliosis Z98.1 and History of hypertension Z86.79 [facility] [address] [facility] [id number] [address] [place] [address] Sep, Dysuria R30.0 and Acute cyst itis with hematuria N30.01 [facility] [address] [place] [id number] [address] [place] [address] Aug, [place] [address] [address] Jul, Depression F32.9 and Diverti culitis K57.92 [place] [address] [address] May, Hyponatremia E87.1 [facility] [address] [address] May, [place] [address] [address] Apr, Vasovagal syncope R55 ; Diar jose of presumed infectious origin R19.7 ; Black eye of left side, initial encounter S00.12XA ; Skin tear of left forearm without complication, initial encounter S51.812A ; Dehydration E86.0 ; Vitamin D deficiency E55.9 and Weight loss R63.4 [facility] [address] [address] Apr, Vitamin D deficiency E55.9 ; History of spinal fusion for scoliosis Z98.1 ; Anxiety F41.9 and Depression F32.9 [place] [address] [address] Jan, Essential hypertension I10 ; Depression F32.9 ; Anxiety F41.9 ; History of hypertension Z86.79 ; History of anemia Z86.2 and Hyponatremia E87.1 [facility] [address] [place] [id number] [address] [place] [address] Dec, Hyponatremia E87.1 [facility] [address] [place] [id number] [address] [place] [address] Dec, Fever, unspecified fever cau se R50.9 and Acute nasopharyngitis J00 [facility] [address] [address] Nov, Hyponatremia E87.1 [place] [address] [facility] [id number] [address] [place] [address] Oct, Essential hypertension I10 ; Long-term use of high-risk medication Z79.899 and Vitamin D deficiency E55.9 [place] [address] [facility] [id number] [address] [place] [address] Oct, Essential hypertension I10 ; Depression F32.9 ; Anxiety F41.9 ; Long-term use of high-risk medication Z79.899 and Vitamin D deficiency E55.9 [place] [address] [facility] [id number] [address] [place] [address] Jun, History of spinal fusion for scoliosis Z98.1 ; Postoperative anemia D64.9 ; Essential hypertension I10 ; Depression F32.9 and Anxiety F41.9 [place] [address] [place] [id number] [address] [place] [address] Jun, History of spinal fusion for scoliosis Z98.1 ; Postoperative anemia D64.9 ; Essential hypertension I10 ; Depression F32.9 and Anxiety F41.9 [place] [id number] [place] [address] May, History of spinal fusion for scoliosis Z98.1 ; Postoperative anemia D64.9 ; Essential hypertension I10 ; Depression F32.9 and Anxiety F41.9 [place] [address] [place] [id number] [address] [place] [address] May, [facility] [address] [facility] [id number] [address] [place] [address] Apr, Dysuria R30.0 and Acute cyst itis with hematuria N30.01 [facility] [address] [place] [id number] [address] [place] [address] Apr, [facility] [address] [place] [id number] [address] [place] [address] Apr, [place] [address] [place] [id number] [address] [place] [address] Apr, [place] [address] [place] [id number] [place] [address] Apr, Anxiety F41.9 [place] [address] [facility] [id number] [address] [place] [address] Feb, Anxiety F41.9 [place] [address] [place] [id number] [place] [address] Jan, [place] [address] [place] [id number] [address] [place] [address] Jan, Severe scoliosis M41.9 [place] [address] [place] [id number] [place] [address] Jan, [place] [address] [place] [id number] [place] [address] Jan, Tremor of unknown origin R25 .1 ; Headache, unspecified headache type R51 ; Balance problem R26.89 ; Degenerative scoliosis M41.9 ; Pain in right hip M25.551 and Pain in left hip M25.552 [place] [address] [address] Jan, Tremor of unknown origin R25 .1 ; Headache, unspecified headache type R51 ; Balance problem R26.89 ; Degenerative scoliosis M41.9 ; Pain in right hip M25.551 and Pain in left hip M25.552 [place] [address] [place] [address] Jan, [place] [address] [address] Oct, Essential hypertension I10 ; Vitamin D deficiency E55.9 ; Depression F32.9 ; Anxiety F41.9 ; Lumbar pain M54.5 and Screening for colon cancer Z12.11 [place] [address] [place] [id number] [address] [place] [address] Aug, [facility] [address] [place] [id number] [address] [place] [address] Dec, [facility] [address] [place] [id number] [address] [place] [address] Dec, Hammertoe M20.40 [facility] [address] [place] [id number] [address] [place] [address] Oct, [facility] [address] [place] [id number] [address] [place] [address] Oct, Essential hypertension I10 ; Vitamin D deficiency E55.9 ; Depression F32.9 ; Anxiety F41.9 ; Lumbar pain M54.5 and Hammer toe of left foot M20.42 [facility] [address] [place] [id number] [address] [place] [address] Sep, Acute upper respiratory infe ction, unspecified J06.9 and Other viral agents as the cause of diseases classified elsewhere B97.89 [facility] [address] [place] [id number] [place] [id number] Apr, Dental examination V72.2 [facility] [address] [id number] Apr, Dental examination V72.2 [facility] [address] [place] [id number] [place] [id number] Apr, Dental examination V72.2 [facility] [address] [place] [id number] [place] [id number] Apr, Dental examination V72.2 [facility] [address] [place] [id number] [place] [id number] March, Dental examination V72.2 [facility] [address] [place] [id number] [address] [place] [phone] March, [facility] [address] [place] [id number] [address] [place] [phone] Feb, [facility] [address] [id number] [address] [place] [address], [place] [address] Feb, [facility] [address] [id number] [address] [place] [address], [place] [address] Oct, [facility] [address] [id number] [address] [place] [address], [place] [address] Oct, [facility] [address] [id number] [address] [place] [address], [place] [address] Sep, [facility] [address] [id number] [address] [place] [address], [place] [address] Sep, [facility] [address] [id number] [address] [place] [address], [place] [address] Sep, [facility] [address] [id number] [address] [place] [address], [place] [address] Sep, [facility] [address] [id number] [address] [place] [address], [place] [address] Aug, [facility] [address] [id number] [address] [place] [address], [place] [address] Aug, [facility] [address] [id number] [address] [place] [address], [place] [address] Jul, [facility] [address] [id number] [address] [place] [address], [place] [address] Jul, [facility] [address] [id number] [address] [place] [address], [place] [address] Jun, [facility] [address] [id number] [address] [place] [address], [place] [address] Jun, [facility] [address] [id number] [address] [place] [address], [place] [address] May, [facility] [address] [id number] [address] [place] [address], [place] [address] May, [facility] [address] [id number] [address] [place] [address], [place] [address] May, [facility] [address] [id number] [address] [place] [address], [place] [address] May, [facility] [address] [id number] [address] [place] [address], [place] [address] May, [facility] [address] [id number] [address] [place] [address], [place] [address] May, [facility] [address] [id number] [address] [place] [address], [place] [address] Apr, [facility] [address] [id number] [address] [place] [address], [place] [address] Apr, [facility] [address] [id number] [address] [place] [address], [place] [address] March, [facility] [address] [id number] [address] [place] [address], [place] [address] March, [facility] [address] [id number] [address] [place] [address], [place] [address] March, [facility] [address] [id number] [address] [place] [address], [place] [address] March, [facility] [address] [id number] [address] [place] [address], [place] [address] Jan, [facility] [address] [id number] [address] [place] [address], [place] [address] Jan, [facility] [address] [id number] [address] [place] [address], [place] [address] Dec, [facility] [address] [id number] [address] [place] [address], [place] [address] Dec, [facility] [address] [id number] [address] [place] [address], [place] [address] Nov, [facility] [address] [id number] [address] [place] [address], [place] [address] Nov, [facility] [address] [id number] [address] [place] [address], [place] [address] 07 Nov, 2013 [facility] [address] [id number] [address] [place] [address], [place] [address] Nov, [facility] [address] [id number] [address] [place] [address], [place] [address] Nov, [facility] [address] [id number] [address] [place] [address], [place] [address] Nov, [facility] [address] [id number] [address] [place] [address], [place] [address] Oct, [facility] [address] [id number] [address] [place] [address], [place] [address] Oct, [facility] [address] [id number] [address] [place] [address], [place] [address] Oct, [facility] [address] [id number] [address] [place] [address], [place] [address] Oct, [facility] [address] [id number] [address] [place] [address], [place] [address] Sep, [facility] [address] [id number] [address] [place] [address], [place] [address] Sep, [facility] [address] [id number] [address] [place] [address], [place] [address] Sep, [facility] [address] [id number] [address] [place] [address], [place] [address] Sep, [facility] [address] [id number] [address] [place] [address], [place] [address] Aug, [facility] [address] [id number] [address] [place] [address], [place] [address] Aug, [facility] [address] [id number] [address] [place] [address], [place] [address] Aug, [facility] [address] [id number] [address] [place] [address], [place] [address] Aug, [facility] [address] [id number] [address] [place] [address], [place] [address] Jul, [facility] [address] [id number] [address] [place] [address], [place] [address] Jun, [facility] [address] [id number] [address] [place] [address], [place] [address] Jun, [facility] [address] [id number] [address] [place] [address], [place] [address] Jun, [facility] [address] [id number] [address] [place] [address], [place] [address] Jun, [facility] [address] [id number] [address] [place] [address], [place] [address] Jun, [facility] [address] [id number] [address] [place] [address], [place] [address] May, [facility] [address] [id number] [address] [place] [address], [place] [address] Apr, [facility] [address] [id number] [address] [place] [address], [place] [address] Apr, [facility] [address] [id number] [address] [place] [address], [place] [address] March, [facility] [address] [id number] [address] [place] [address], [place] [address] March, [facility] [address] [id number] [address] [place] [address], [place] [address] March, [facility] [address] [id number] [address] [place] [address], [place] [address] March, [facility] [address] [id number] [address] [place] [address], [place] [address] March, [facility] [address] [id number] [address] [place] [address], [place] [address] Feb, [facility] [address] [id number] [address] [place] [address], [place] [address] 15 Feb, 2013 [facility] [address] [id number] [address] [place] [address], [place] [address] 27 Jan, 2013 [facility] [address] [id number] [address] [place] [address], [place] [address] 25 Jan, 2013 [facility] [address] [id number] [address] [place] [address], [place] [address] 21 Jan, 2013 [facility] [address] [id number] [address] [place] [address], [place] [address] 15 Jan, 2013 [facility] [address] [id number] [address] [place] [address], [place] [address] 15 Jan, 2013 [facility] [address] [id number] [address] [place] [address], [place] [address] 14 Jan, 2013 [facility] [address] [id number] [address] [place] [address], [place] [address] 14 Jan, 2013 [facility] [address] [id number] [address] [place] [address], [place] [address] 13 Jan, 2013 [facility] [address] [id number] [address] [place] [address], [place] [address] 26 Dec, 2012 [facility] [address] [id number] [address] [place] [address], [place] [address] 18 Dec, 2012 [facility] [address] [id number] [address] [place] [address], [place] [address] 15 Dec, 2012 [facility] [address] [id number] [address] [place] [address], [place] [address] 15 Dec, 2012 [facility] [address] [id number] [address] [place] [address], [place] [address] 14 Dec, 2012 [facility] [address] [id number] [address] [place] [address], [place] [address] 13 Dec, 2012 [facility] [address] [id number] [address] [place] [address], [place] [address] 12 Dec, 2012 [facility] [address] [facility] [id number] [address] [place] [phone] Dec, [facility] [address] [facility] [id number] [address] [place] [address] Nov, [facility] [address] [facility] [id number] [address] [place] [phone] Nov, [facility] [address] [facility] [id number] [address] [place] [phone] Nov, [facility] [address] [facility] [id number] [address] [place] [phone] Nov, IMMUNIZATIONS No Known Immunizations SOCIAL HISTORY Never Assessed REASON FOR VISIT PLAN OF CARE VITAL SIGNS Height 64 in 2014-09-19 Weight 104.19 lbs 2014-09-19 Temperature 97.2 degrees Fahrenheit 2014-09-19 Heart Rate 80 bpm 2014-09-19 Respiratory Rate 18 2014-09-19 Blood pressure systolic 118 mmHg 2014-09-19 Blood pressure diastolic 78 mmHg 2014-09-19 MEDICATIONS Unknown Medications RESULTS No Results PROCEDURES Procedure Date Ordered Result Body Site COMPREHEN METABOLIC PANEL Sep 19, 2014 VENIPUNCT, ROUTINE* Sep 19, 2014 INSTRUCTIONS MEDICATIONS ADMINISTERED No Known Medications [...]
--- OUTSIDE RECORDS SUMMARY | 2020-02-19 13:37 | XMS REPORT ---
Author Author Sherly Hendrix [facility] Address [address] [place] [address] Care Team Providers Care Tape Recording Machine Operator Name Role Phone JOLANTA Hendrix Unavailable PROBLEMS ALLERGIES ENCOUNTERS IMMUNIZATIONS No Known Immunizations SOCIAL HISTORY No smoking Hx information available REASON FOR VISIT PLAN OF CARE VITAL SIGNS MEDICATIONS RESULTS No Results PROCEDURES INSTRUCTIONS MEDICATIONS ADMINISTERED No Known Medications MEDICAL (GENERAL) HISTORY
--- OUTSIDE RECORDS SUMMARY | 2020-02-19 13:37 | XMS REPORT ---
Author Author Sherly Hendrix Organization 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 Name Role Phone JOLANTA Hendrix Unavailable PROBLEMS Type Condition ICD9-CM Code AME50-VH Code Onset Dates Condition S tatus SNOMED Code Problem Hyponatremia E87.1 Active 4084053 8 Problem Hypercholesteremia E78.00 Active 1 7135914 Problem Diverticulitis K57.92 Active 83333 6006 Problem History of hypertension Z86.79 Active 365697400 Problem Anxiety F41.9 Active 57139800 Problem Depression F32.9 Active 14204151 Problem History of spinal fusion for scoliosis Z98.1 Active 185464679 Problem Vitamin D deficiency E55.9 Active [id number] ALLERGIES No Information ENCOUNTERS Encounter Location Date Diagnosis [place] [address] [place] [id number] [address] [place] [address] Aug, [place] [address] [place] [id number] [address] [place] [address] Jul, Depression F32.9 and Diverti culitis K57.92 [place] [address] [place] [id number] [address] [place] [address] May, Hyponatremia E87.1 [facility] [address] [place] [id number] [address] [place] [address] May, [place] [address] [place] [id number] [address] [place] [address] Apr, Vasovagal syncope R55 ; Diar jose of presumed infectious origin R19.7 ; Black eye of left side, initial encounter S00.12XA ; Skin tear of left forearm without complication, initial encounter S51.812A ; Dehydration E86.0 ; Vitamin D deficiency E55.9 and Weight loss R63.4 [facility] [address] [place] [id number] [address] [place] [address] Apr, Vitamin D deficiency E55.9 ; History of spinal fusion for scoliosis Z98.1 ; Anxiety F41.9 and Depression F32.9 [facility] [address] [place] [id number] [address] [place] [address] Jan, Essential hypertension I10 ; Depression F32.9 ; Anxiety F41.9 ; History of hypertension Z86.79 ; History of anemia Z86.2 and Hyponatremia E87.1 [facility] [address] [place] [id number] [place] [address] Dec, Hyponatremia E87.1 [facility] [address] [place] [id number] [place] [address] Dec, Fever, unspecified fever cau se R50.9 and Acute nasopharyngitis J00 [place] [address] [place] [id number] [address] [place] [address] Nov, Hyponatremia E87.1 [facility] [address] [address] Oct, Essential hypertension I10 ; Long-term use of high-risk medication Z79.899 and Vitamin D deficiency E55.9 [place] [address] [place] [id number] [address] [place] [address] Oct, Essential hypertension I10 ; Depression F32.9 ; Anxiety F41.9 ; Long-term use of high-risk medication Z79.899 and Vitamin D deficiency E55.9 [facility] [address] [place] [id number] [address] [place] [address] Jun, History of spinal fusion for scoliosis Z98.1 ; Postoperative anemia D64.9 ; Essential hypertension I10 ; Depression F32.9 and Anxiety F41.9 [facility] [address] [address] Jun, History of spinal fusion for scoliosis Z98.1 ; Postoperative anemia D64.9 ; Essential hypertension I10 ; Depression F32.9 and Anxiety F41.9 [facility] [address] [place] [id number] [place] [address] May, History of spinal fusion for scoliosis Z98.1 ; Postoperative anemia D64.9 ; Essential hypertension I10 ; Depression F32.9 and Anxiety F41.9 [facility] [address] [facility] [id number] [address] [place] [phone] May, [facility] [address] [facility] [id number] [address] [place] [address] Apr, Dysuria R30.0 and Acute cyst itis with hematuria N30.01 [facility] [address] [facility] [id number] [address] [place] [address] Apr, [facility] [address] [place] [id number] [address] [place] [address] Apr, [facility] [address] [facility] [id number] [address] [place] [address] Apr, [facility] [address] [place] [id number] [place] [address] Apr, Anxiety F41.9 [facility] [address] [place] [id number] [address] [place] [address] Feb, Anxiety F41.9 [facility] [address] [facility] [id number] [address] [place] [address] Jan, [facility] [address] [facility] [id number] [address] [place] [phone] Jan, Severe scoliosis M41.9 [facility] [address] [facility] [id number] [address] [place] [address] Jan, [facility] [address] [place] [id number] [address] [place] [address] Jan, Tremor of unknown origin R25 .1 ; Headache, unspecified headache type R51 ; Balance problem R26.89 ; Degenerative scoliosis M41.9 ; Pain in right hip M25.551 and Pain in left hip M25.552 [place] [address] [address] 14 Jan, 2017 Tremor of unknown origin R25 .1 ; Headache, unspecified headache type R51 ; Balance problem R26.89 ; Degenerative scoliosis M41.9 ; Pain in right hip M25.551 and Pain in left hip M25.552 [place] [address] [address] 10 Jan, 2017 [place] [address] [address] Oct, Essential hypertension I10 ; Vitamin D deficiency E55.9 ; Depression F32.9 ; Anxiety F41.9 ; Lumbar pain M54.5 and Screening for colon cancer Z12.11 [place] [address] [address] Aug, [place] [address] [address] Dec, [place] [address] [address] Dec, [place] M20.[address] [address] Oct, [place] [address] [address] Oct, Essential hypertension I10 ; Vitamin D deficiency E55.9 ; Depression F32.9 ; Anxiety F41.9 ; Lumbar pain M54.5 and Hammer toe of left foot M20.42 [place] [id number] [address] [place] [address] Sep, Acute upper respiratory infe ction, unspecified J06.9 and Other viral agents as the cause of diseases classified elsewhere B97.89 [facility] [address] [id number] [address] [place] [id number] Apr, Dental examination V72.2 [facility] [address] [id number] [address] [place] [address] [id number] Apr, Dental examination V72.2 [facility] [address] [id number] [address] [place] [address] [id number] Apr, Dental examination V72.2 [facility] [address] [id number] [address] [place] [address] [id number] Apr, Dental examination V72.2 [facility] [address] [id number] [address] [place] [address] [id number] March, Dental examination V72.2 [facility] [address] [id number] [address] [place] [address] March, [facility] [address] [id number] [address] [place] [address] Feb, [facility] [address] [id number] [address] [place] [phone] Feb, [facility] [address] [id number] [address] [place] [phone] Oct, [facility] [address] [id number] [address] [place] [address] Oct, [facility] [address] [id number] [address] [place] [phone] Sep, [facility] [address] [id number] [address] [place] [phone] Sep, [facility] [address] [id number] [address] [place] [phone] Sep, [facility] [address] [id number] [address] [place] [phone] Sep, [facility] [address] [id number] [address] [place] [phone] Aug, [facility] [address] [id number] [address] [place] [address], [place] [address] Aug, [facility] [address] [id number] [address] [place] [address], [place] [address] Jul, [facility] [address] [id number] [address] [place] [address], [place] [address] Jul, [facility] [address] [id number] [address] [place] [address], [place] [address] Jun, [facility] [address] [id number] [address] [place] [address], [place] [address] Jun, [facility] [address] [id number] [address] [place] [address], [place] [address] May, [facility] [address] [id number] [address] [place] [address], [place] [address] May, [facility] [address] [id number] [address] [place] [address], [place] [address] May, [facility] [address] [id number] [address] [place] [address], [place] [address] May, [facility] [address] [id number] [address] [place] [address], [place] [address] May, [facility] [address] [id number] [address] [place] [address], [place] [address] May, [facility] [address] [id number] [address] [place] [address], [place] [address] Apr, [facility] [address] [id number] [address] [place] [address], [place] [address] Apr, [facility] [address] [id number] [address] [place] [address], [place] [address] March, [facility] [address] [id number] [address] [place] [address], [place] [address] March, [facility] [address] [id number] [address] [place] [address], [place] [address] March, [facility] [address] [id number] [address] [place] [address], [place] [address] March, [facility] [address] [id number] [address] [place] [address], [place] [address] Jan, [facility] [address] [id number] [address] [place] [address], [place] [address] Jan, [facility] [address] [id number] [address] [place] [address], [place] [address] Dec, [facility] [address] [id number] [address] [place] [address], [place] [address] Dec, [facility] [address] [id number] [address] [place] [address], [place] [address] Nov, [facility] [address] [id number] [address] [place] [address], [place] [address] Nov, [facility] [address] [id number] [address] [place] [address], [place] [address] Nov, [facility] [address] [id number] [address] [place] [address], [place] [address] Nov, [facility] [address] [id number] [address] [place] [address], [place] [address] Nov, [facility] [address] [id number] [address] [place] [address], [place] [address] Nov, [facility] [address] [id number] [address] [place] [address], [place] [address] Oct, [facility] [address] [id number] [address] [place] [address], [place] [address] Oct, [facility] [address] [id number] [address] [place] [address], [place] [address] Oct, [facility] [address] [id number] [address] [place] [address], [place] [address] Oct, [facility] [address] [id number] [address] [place] [address], [place] [address] Sep, [facility] [address] [id number] [address] [place] [address], [place] [address] Sep, [facility] [address] [id number] [address] [place] [address], [place] [address] Sep, [facility] [address] [id number] [address] [place] [address], [place] [address] Sep, [facility] [address] [id number] [address] [place] [address], [place] [address] Aug, [facility] [address] [id number] [address] [place] [address], [place] [address] Aug, [facility] [address] [id number] [address] [place] [address], [place] [address] Aug, [facility] [address] [id number] [address] [place] [address], [place] [address] Aug, [facility] [address] [id number] [address] [place] [address], [place] [address] Jul, [facility] [address] [id number] [address] [place] [address], [place] [address] Jun, [facility] [address] [id number] [address] [place] [address], [place] [address] Jun, [facility] [address] [id number] [address] [place] [address], [place] [address] Jun, [facility] [address] [id number] [address] [place] [address], [place] [address] Jun, [facility] [address] [id number] [address] [place] [address], [place] [address] Jun, [facility] [address] [id number] [address] [place] [address], [place] [address] May, [facility] [address] [id number] [address] [place] [address] [address] Apr, [facility] [address] [id number] [address] [place] [address], [place] [address] Apr, [facility] [address] [id number] [address] [place] [address], [place] [address] March, [facility] [address] [id number] [address] [place] [address], [place] [address] March, [facility] [address] [id number] [address] [place] [address], [place] [address] March, [facility] [address] [id number] [address] [place] [address], [place] [address] March, [facility] [address] [id number] [address] [place] [address], [place] [address] March, [facility] [address] [id number] [address] [place] [address], [place] [address] Feb, [facility] [address] [id number] [address] [place] [address], [place] [address] Feb, [facility] [address] [id number] [address] [place] [address], [place] [address] 27 Jan, 2013 [facility] [address] [id number] [address] [place] [address], [place] [address] 25 Jan, 2013 [facility] [address] [id number] [address] [place] [address], [place] [address] Jan, [facility] [address] [id number] [address] [place] [address], [place] [address] 15 Jan, 2013 [facility] [address] [id number] [address] [place] [address], [place] [address] 15 Jan, 2013 [facility] [address] [id number] [address] [place] [address], [place] [address] 14 Jan, 2013 [facility] [address] [id number] [address] [place] [address], [place] [address] 14 Jan, 2013 [facility] [address] [id number] [address] [place] [address] Jan, [facility] [address] [id number] [address] [place] [address] 26 Dec, 2012 [facility] [address] [id number] [address] [place] [address] 18 Dec, 2012 [facility] [address] [id number] [address] [place] [address] Dec, [facility] [address] [id number] [address] [place] [address] 15 Dec, 2012 [facility] [address] [id number] [address] [place] [address] 14 Dec, 2012 [facility] [address] [id number] [address] [place] [address] Dec, [facility] [address] [id number] [address] [place] [address] Dec, [facility] [address] [id number] [address] [place] [address] 05 Dec, 2012 [facility] [address] [id number] [address] [place] [address] Nov, [facility] [address] [id number] [address] [place] [address] Nov, [facility] [address] [id number] [address] [place] [address] Nov, [facility] [address] [id number] [address] [place] [address] Nov, IMMUNIZATIONS No Known Immunizations SOCIAL HISTORY Never Assessed REASON FOR VISIT Controlled Med Refill PLAN OF CARE VITAL SIGNS MEDICATIONS Medication Instructions Dosage Frequency Start Date End Date Duration S pablo Tramadol HCl 50 mg Orally every 6 hrs 1 tablet as needed 6h Active RESULTS No Results PROCEDURES No Known [...]
--- OUTSIDE RECORDS SUMMARY | 2020-02-19 13:37 | XMS REPORT ---
Author Author Sherly EATON Organization [facility] Address [address] [place] [address] Care Team Providers Care Travel Rn Name Role Phone UMA JOLANTA Unavailable PROBLEMS Type Condition ICD9-CM Code VHM55-ZZ Code Onset Dates Condition S tatus SNOMED Code Problem Hypercholesteremia E78.00 Active 1 3172566 Problem History of hypertension Z86.79 Active 794092152 Problem History of spinal fusion for scoliosis Z98.1 Active 604309199 Problem Depression F32.9 Active 14373365 Problem Hyponatremia E87.1 Active 2920891 8 Problem Vitamin D deficiency E55.9 Active 52461131 Problem Anxiety F41.9 Active 11901647 ALLERGIES No Information ENCOUNTERS Encounter Location Date Diagnosis [place] [id number] [address] Jul, [place] [address] [address] May, Hyponatremia E87.1 [place] [address] [address] May, [place] [address] [address] Apr, Vasovagal syncope R55 ; Diar jose of presumed infectious origin R19.7 ; Black eye of left side, initial encounter S00.12XA ; Skin tear of left forearm without complication, initial encounter S51.812A ; Dehydration E86.0 ; Vitamin D deficiency E55.9 and Weight loss R63.4 [place] [address] [place] [id number] [address] [place] [address] Apr, Vitamin D deficiency E55.9 ; History of spinal fusion for scoliosis Z98.1 ; Anxiety F41.9 and Depression F32.9 [place] [address] [address] Jan, Essential hypertension I10 ; Depression F32.9 ; Anxiety F41.9 ; History of hypertension Z86.79 ; History of anemia Z86.2 and Hyponatremia E87.1 [facility] [address] [address] Dec, Hyponatremia E87.1 [facility] [address] [address] Dec, Fever, unspecified fever cau se R50.9 and Acute nasopharyngitis J00 [place] [address] [address] Nov, Hyponatremia E87.1 [place] [address] [address] Oct, Essential hypertension I10 ; Long-term use of high-risk medication Z79.899 and Vitamin D deficiency E55.9 [place] [address] [address] Oct, Essential hypertension I10 ; Depression F32.9 ; Anxiety F41.9 ; Long-term use of high-risk medication Z79.899 and Vitamin D deficiency E55.9 [place] [address] [address] Jun, History of spinal fusion for scoliosis Z98.1 ; Postoperative anemia D64.9 ; Essential hypertension I10 ; Depression F32.9 and Anxiety F41.9 [place] [address] [address] Jun, History of spinal fusion for scoliosis Z98.1 ; Postoperative anemia D64.9 ; Essential hypertension I10 ; Depression F32.9 and Anxiety F41.9 [place] [address] [address] May, History of spinal fusion for scoliosis Z98.1 ; Postoperative anemia D64.9 ; Essential hypertension I10 ; Depression F32.9 and Anxiety F41.9 [facility] [address] [facility] [id number] [address] [place] [address] May, [facility] [address] [facility] [id number] [address] [place] [address] Apr, Dysuria R30.0 and Acute cyst itis with hematuria N30.01 [facility] [address] [id number] [address] [place] [address] Apr, [facility] [address] [facility] [id number] [address] [place] [address] Apr, [facility] [address] [facility] [id number] [address] [place] [address] Apr, [facility] [address] [facility] [id number] [address] [place] [address] Apr, Anxiety F41.9 [facility] [address] [facility] [id number] [address] [place] [phone] Feb, Anxiety F41.9 [facility] [address] [facility] [id number] [address] [place] [address] Jan, [facility] [address] [facility] [id number] [address] [place] [address] Jan, Severe scoliosis M41.9 [facility] [address] [facility] [id number] [address] [place] [address] Jan, [facility] [address] [facility] [id number] [address] [place] [address] Jan, Tremor of unknown origin R25 .1 ; Headache, unspecified headache type R51 ; Balance problem R26.89 ; Degenerative scoliosis M41.9 ; Pain in right hip M25.551 and Pain in left hip M25.552 [facility] [address] [facility] [id number] [address] [place] [address] 14 Jan, 2017 Tremor of unknown origin R25 .1 ; Headache, unspecified headache type R51 ; Balance problem R26.89 ; Degenerative scoliosis M41.9 ; Pain in right hip M25.551 and Pain in left hip M25.552 [facility] [address] [address] 10 Jan, 2017 [place] [address] [address] Oct, Essential hypertension I10 ; Vitamin D deficiency E55.9 ; Depression F32.9 ; Anxiety F41.9 ; Lumbar pain M54.5 and Screening for colon cancer Z12.11 [place] [address] [address] Aug, [place] [address] [address] Dec, [place] [address] [address] Dec, Hammertoe M20.40 [place] [address] [address] Oct, [place] [address] [address] Oct, Essential hypertension I10 ; Vitamin D deficiency E55.9 ; Depression F32.9 ; Anxiety F41.9 ; Lumbar pain M54.5 and Hammer toe of left foot M20.42 [place] [id number] [address] [place] [address] Sep, Acute upper respiratory infe ction, unspecified J06.9 and Other viral agents as the cause of diseases classified elsewhere B97.89 [facility] [address] [place] [id number] [address] [place] [id number] Apr, Dental examination V72.2 [facility] [address] [place] [id number] [place] [id number] Apr, Dental examination V72.2 [facility] [address] [id number] [place] [id number] Apr, Dental examination V72.2 [facility] [address] [id number] [address] [place] [id number] Apr, Dental examination V72.2 [facility] [address] [id number] [address] [place] [id number] March, Dental examination V72.2 [facility] [address] [id number] [address] [place] [address], [place] [address] March, [facility] [address] [id number] [address] [place] [phone] Feb, [facility] [address] [id number] [address] [place] [phone] Feb, [facility] [address] [id number] [address] [place] [phone] Oct, [facility] [address] [id number] [address] [place] [address] Oct, [facility] [address] [id number] [address] [place] [phone] Sep, [facility] [address] [id number] [address] [place] [phone] Sep, [facility] [address] [id number] [address] [place] [phone] Sep, [facility] [address] [id number] [address] [place] [phone] Sep, [facility] [address] [id number] [address] [place] [phone] Aug, [facility] [address] [id number] [address] [place] [phone] Aug, [facility] [address] [id number] [address] [place] [phone] Jul, [facility] [address] [id number] [address] [place] [address], [place] [address] Jul, [facility] [address] [id number] [address] [place] [address], [place] [address] Jun, [facility] [address] [id number] [address] [place] [address], [place] [address] Jun, [facility] [address] [id number] [address] [place] [address], [place] [address] May, [facility] [address] [id number] [address] [place] [address], [place] [address] May, [facility] [address] [id number] [address] [place] [address], [place] [address] May, [facility] [address] [id number] [address] [place] [address], [place] [address] May, [facility] [address] [id number] [address] [place] [address], [place] [address] May, [facility] [address] [id number] [address] [place] [address], [place] [address] May, [facility] [address] [id number] [address] [place] [address], [place] [address] Apr, [facility] [address] [id number] [address] [place] [address], [place] [address] Apr, [facility] [address] [id number] [address] [place] [address], [place] [address] March, [facility] [address] [id number] [address] [place] [address], [place] [address] March, [facility] [address] [id number] [address] [place] [address], [place] [address] March, [facility] [address] [id number] [address] [place] [address], [place] [address] March, [facility] [address] [id number] [address] [place] [phone] 06 Jan, 2014 [facility] [address] [id number] [address] [place] [address], [place] [address] Jan, [facility] [address] [id number] [address] [place] [address], [place] [address] 07 Dec, 2013 [facility] [address] [id number] [address] [place] [address], [place] [address] Dec, [facility] [address] [id number] [address] [place] [address], [place] [address] Nov, [facility] [address] [id number] [address] [place] [address], [place] [address] Nov, [facility] [address] [id number] [address] [place] [address], [place] [address] Nov, [facility] [address] [id number] [address] [place] [address], [place] [address] Nov, [facility] [address] [id number] [address] [place] [address], [place] [address] Nov, [facility] [address] [id number] [address] [place] [address], [place] [address] Nov, [facility] [address] [id number] [address] [place] [address], [place] [address] Oct, [facility] [address] [id number] [address] [place] [address], [place] [address] Oct, [facility] [address] [id number] [address] [place] [address], [place] [address] Oct, [facility] [address] [id number] [address] [place] [address], [place] [address] Oct, [facility] [address] [id number] [address] [place] [address], [place] [address] Sep, [facility] [address] [id number] [address] [place] [address], [place] [address] Sep, [facility] [address] [id number] [address] [place] [address], [place] [address] Sep, [facility] [address] [id number] [address] [place] [address], [place] [address] Sep, [facility] [address] [id number] [address] [place] [address], [place] [address] Aug, [facility] [address] [id number] [address] [place] [address], [place] [address] Aug, [facility] [address] [id number] [address] [place] [address], [place] [address] Aug, [facility] [address] [id number] [address] [place] [address], [place] [address] Aug, [facility] [address] [id number] [address] [place] [address], [place] [address] Jul, [facility] [address] [id number] [address] [place] [address], [place] [address] Jun, [facility] [address] [id number] [address] [place] [address], [place] [address] Jun, [facility] [address] [id number] [address] [place] [address], [place] [address] Jun, [facility] [address] [id number] [address] [place] [address], [place] [address] Jun, [facility] [address] [id number] [address] [place] [address], [place] [address] Jun, [facility] [address] [id number] [address] [place] [address], [place] [address] May, [facility] [address] [id number] [address] [place] [address], [place] [address] Apr, [facility] [address] [id number] [address] [place] [address], [place] [address] Apr, [facility] [address] [id number] [address] [place] [address], [place] [address] March, [facility] [address] [id number] [facility] [place] [address] March, [facility] [address] [id number] [address] [place] [address], [place] [address] March, [facility] [address] [id number] [address] [place] [address], [place] [address] March, [facility] [address] [id number] [address] [place] [address], [place] [address] March, [facility] [address] [id number] [address] [place] [address], [place] [address] Feb, [facility] [address] [id number] [address] [place] [address], [place] [address] Feb, [facility] [address] [id number] [address] [place] [address], [place] [address] Jan, [facility] [address] [id number] [address] [place] [address], [place] [address] Jan, [facility] [address] [id number] [address] [place] [address], [place] [address] Jan, [facility] [address] [id number] [address] [place] [address], [place] [address] Jan, [facility] [address] [id number] [address] [place] [address], [place] [address] 15 Jan, 2013 [facility] [address] [id number] [address] [place] [address], [place] [address] 14 Jan, 2013 [facility] [address] [id number] [address] [place] [address], [place] [address] 14 Jan, 2013 [facility] [address] [id number] [address] [place] [address], [place] [address] 13 Jan, 2013 [facility] [address] [id number] [address] [place] [address], [place] [address] 26 Dec, 2012 [facility] [address] [id number] [address] [place] [id number] 18 Dec, 2012 [facility] [address] [id number] [address] [place] [phone] 15 Dec, 2012 [facility] [address] [id number] [address] [place] [address] 15 Dec, 2012 [facility] [address] [id number] [address] [place] [address] 14 Dec, 2012 [facility] [address] [id number] [address] [place] [address] 13 Dec, 2012 [facility] [address] [id number] [address] [place] [phone] 12 Dec, 2012 [facility] [address] [id number] [address] [place] [address] 05 Dec, 2012 [facility] [address] [id number] [address] [place] [address] Nov, [facility] [address] [id number] [address] [place] [address] Nov, [facility] [address] [id number] [address] [place] [address] Nov, [facility] [address] [id number] [address] [place] [address] Nov, IMMUNIZATIONS No Known Immunizations SOCIAL HISTORY Never Assessed REASON FOR VISIT labs PLAN OF CARE VITAL SIGNS MEDICATIONS Unknown [...]
--- OUTSIDE RECORDS SUMMARY | 2020-02-19 13:37 | XMS REPORT ---
Author Author Sherly SOTOMAYOR [facility] Address [address] [place] [address] Care Team Providers Care Java Groovy Developer Name Role Phone ESTELLA SOTOMAYOR Unavailable PROBLEMS Type Condition ICD9-CM Code [id number] Code Onset Dates Condition S tatus SNOMED Code Problem Essential hypertension I10 Active 51160615 Problem Depression F32.9 Active 80192801 Problem Vitamin D deficiency E55.9 Active 15213476 Problem Severe scoliosis M41.9 Active 298 900431 Problem Lumbar pain M54.5 Active 66301194 7 Problem Postoperative anemia D64.9 Active 576738187 Problem History of spinal fusion for scoliosis Z98.1 Active 314815257 Problem Tremor of unknown origin R25.1 Activ e 16363283 Problem Anxiety F41.9 Active 99628817 Problem Headache, unspecified headache type R51 Active 02418317 Problem Balance problem R26.89 Active 3876 [id number] ALLERGIES No Information SOCIAL HISTORY Never Assessed PLAN OF CARE VITAL SIGNS MEDICATIONS Medication Instructions Dosage Frequency Start Date End Date Duration S tatus PredniSONE 20 mg 2 tablet daily for 3 days then 1 tabl et daily for 3 days Jan, Active RESULTS No Results PROCEDURES No Known procedures IMMUNIZATIONS No Known Immunizations MEDICAL (GENERAL) HISTORY Type Description Date Medical [...]
--- OUTSIDE RECORDS SUMMARY | 2020-02-19 13:37 | XMS REPORT ---
Author Author Sherly SOTOMAYOR [facility] Address [address] [place] [address] Care Team Providers Care Tax Associate Name Role Phone ESTELLA SOTOMAYOR Unavailable PROBLEMS Type Condition ICD9-CM Code [id number] Code Onset Dates Condition S tatus SNOMED Code Problem Essential hypertension I10 Active 50519490 Problem Depression F32.9 Active 12382465 Problem Vitamin D deficiency E55.9 Active 53802566 Problem Severe scoliosis M41.9 Active 298 821770 Problem Lumbar pain M54.5 Active 89880822 7 Problem Postoperative anemia D64.9 Active 918360091 Problem History of spinal fusion for scoliosis Z98.1 Active 017281105 Problem Tremor of unknown origin R25.1 Activ e 97153639 Problem Anxiety F41.9 Active 55623787 Problem Headache, unspecified headache type R51 Active 90695650 Problem Balance problem R26.89 Active 3876 08439 ALLERGIES No Information SOCIAL HISTORY Never Assessed PLAN OF CARE VITAL SIGNS MEDICATIONS No [...]
--- OUTSIDE RECORDS SUMMARY | 2020-02-19 13:37 | XMS REPORT ---
Author Author Sherly SOTOMAYOR [facility] Address [address] [place] [address] Care Team Providers Care Scientist Immunology Name Role Phone ESTELLA SOTOMAYOR Unavailable PROBLEMS Type Condition ICD9-CM Code [id number] Code Onset Dates Condition S tatus SNOMED Code Problem Essential hypertension I10 Active 15899216 Problem Depression F32.9 Active 41134387 Problem Vitamin D deficiency E55.9 Active 55870037 Problem Severe scoliosis M41.9 Active 298 624442 Problem Lumbar pain M54.5 Active 24362091 7 Problem Postoperative anemia D64.9 Active 071942679 Problem History of spinal fusion for scoliosis Z98.1 Active 219012596 Problem Tremor of unknown origin R25.1 Activ e 07250753 Problem Anxiety F41.9 Active 28243503 Problem Headache, unspecified headache type R51 Active 41140145 Problem Balance problem R26.89 Active 3876 20239 ALLERGIES Substance Reaction Event Type Date Status Neosporin Unknown Drug Allergy Jan, Active Fosamax Unknown Drug Allergy Jan, Active Penicillin Unknown Drug Allergy Jan, Active Evista 60 Mg Tablet legs swelling Non Drug Allergy Jan, Act jaelyn SOCIAL HISTORY Never Assessed PLAN OF CARE Activity Details Follow Up pending lab and CT Reason: VITAL SIGNS Height 64 in 2017-01-21 Weight 102 lbs 2017-01-21 Temperature 98.1 degrees Fahrenheit 2017-01-21 Heart Rate 80 bpm 2017-01-21 Respiratory Rate 20 2017-01-21 BMI 17.51 kg/m2 2017-01-21 Blood pressure systolic 144 mmHg 2017-01-21 Blood pressure diastolic 80 mmHg 2017-01-21 MEDICATIONS Medication Instructions Dosage Frequency Start Date End Date Duration S tatus Calcium 600 mg 1 Capsule by Oral route 2 times per day 2 2 Jun, 2013 Active Amlodipine Besylate 2.5 MG oral daily 1 tablet 24h 3 0 Active Lorazepam 0.5 MG Orally Once a day 1 tablet as needed 24h prn Active Naproxen 500 MG oral bid 1 tablet 12h 30 Active Vitamin D 1000 UNIT oral daily TAKE TWO TABLETS BY MOUTH DAILY 24h 30 Active Fluoxetine HCl 20 MG orally once daily TAKE ONE capsule 24h 30 Active RESULTS Name Result Date Reference Range CT Scan : Head/Brain w/o Contrast 2017-01-22 Xray : Spine, Lumbar 2-3 views 2017-01-22 Xray : Spine, Thoracic 3 views 2017-01-22 Xray : Hip, Bilateral 2017-01-22 PROCEDURES Procedure Date Ordered Result Body Site [facility] VISIT ESTABLISHED PATIENT January 21, 2017 IMMUNIZATIONS No Known Immunizations MEDICAL (GENERAL) HISTORY [...]
--- OUTSIDE RECORDS SUMMARY | 2020-02-19 13:37 | XMS REPORT ---
Author Author Sherly SOTOMAYOR [facility] Address [address] [place] [address] Care Team Providers Care Card Feeder Name Role Phone ESTELLA SOTOMAYOR Unavailable PROBLEMS Type Condition ICD9-CM Code EIF43-TQ Code Onset Dates Condition S tatus SNOMED Code Problem Essential hypertension I10 Active 69064373 Problem Depression F32.9 Active 53892332 Problem Vitamin D deficiency E55.9 Active 81151728 Problem Severe scoliosis M41.9 Active 298 712223 Problem Lumbar pain M54.5 Active 54691265 7 Problem Postoperative anemia D64.9 Active 608810383 Problem History of spinal fusion for scoliosis Z98.1 Active 535070927 Problem Tremor of unknown origin R25.1 Activ e 23481285 Problem Anxiety F41.9 Active 91156358 Problem Headache, unspecified headache type R51 Active 86438842 Problem Balance problem R26.89 Active 3876 44199 ALLERGIES No Information SOCIAL HISTORY Never Assessed [...]
--- OUTSIDE RECORDS SUMMARY | 2020-02-19 13:37 | XMS REPORT ---
Author Author Sherly SOTOMAYOR Organization [facility] Address [address] [place] [address] Care Team Providers Care Certified Juvenile Probation Officer Name Role Phone ESTELLA SOTOMAYOR Unavailable PROBLEMS Type Condition ICD9-CM Code PNS43-UA Code Onset Dates Condition S tatus SNOMED Code Problem Hyponatremia E87.1 Active 1640545 8 Problem Hypercholesteremia E78.00 Active 1 0050203 Problem Diverticulitis K57.92 Active 31835 6006 Problem History of hypertension Z86.79 Active 227693319 Problem Anxiety F41.9 Active 19918295 Problem Depression F32.9 Active 20040215 Problem History of spinal fusion for scoliosis Z98.1 Active 263420849 Problem Vitamin D deficiency E55.9 Active 95630657 ALLERGIES Substance Reaction Event Type Date Status Neosporin Unknown Drug Allergy Sep, Active Fosamax Unknown Drug Allergy Sep, Active Penicillin Unknown Drug Allergy Sep, Active Evista 60 Mg Tablet legs swelling Non Drug Allergy Sep, Act jaelyn ENCOUNTERS Encounter Location Date Diagnosis [facility] [id number] [place] [address] Oct, [facility] [id number] [address] [place] [id number] Sep, Dysuria R30.0 and Acute cyst itis with hematuria N30.01 [facility] [id number] [place] [phone] Aug, [facility] [id number] [place] [phone] Jul, Depression F32.9 and Diverti culitis K57.92 [facility] [id number] [place] [address] May, Hyponatremia E87.1 [facility] [address] [address] May, [facility] [address] [address] Apr, Vasovagal syncope R55 ; Diar jose of presumed infectious origin R19.7 ; Black eye of left side, initial encounter S00.12XA ; Skin tear of left forearm without complication, initial encounter S51.812A ; Dehydration E86.0 ; Vitamin D deficiency E55.9 and Weight loss R63.4 [facility] [address] [address] Apr, Vitamin D deficiency E55.9 ; History of spinal fusion for scoliosis Z98.1 ; Anxiety F41.9 and Depression F32.9 [place] [address] [address] Jan, Essential hypertension I10 ; Depression F32.9 ; Anxiety F41.9 ; History of hypertension Z86.79 ; History of anemia Z86.2 and Hyponatremia E87.1 [facility] [address] [address] Dec, Hyponatremia E87.1 [facility] [address] [id number] [address] [place] [address] Dec, Fever, unspecified fever cau se R50.9 and Acute nasopharyngitis J00 [facility] [address] [id number] [address] [place] [address] Nov, Hyponatremia E87.1 [facility] [address] [address] Oct, Essential hypertension I10 ; Long-term use of high-risk medication Z79.899 and Vitamin D deficiency E55.9 [place] [address] [address] Oct, Essential hypertension I10 ; Depression F32.9 ; Anxiety F41.9 ; Long-term use of high-risk medication Z79.899 and Vitamin D deficiency E55.9 [facility] [address] [facility] [id number] [address] [place] [address] Jun, History of spinal fusion for scoliosis Z98.1 ; Postoperative anemia D64.9 ; Essential hypertension I10 ; Depression F32.9 and Anxiety F41.9 [facility] [address] [address] Jun, History of spinal fusion for scoliosis Z98.1 ; Postoperative anemia D64.9 ; Essential hypertension I10 ; Depression F32.9 and Anxiety F41.9 [place] [id number] [place] [address] May, History of spinal fusion for scoliosis Z98.1 ; Postoperative anemia D64.9 ; Essential hypertension I10 ; Depression F32.9 and Anxiety F41.9 [facility] [id number] [place] [address] May, [facility] [address] [facility] [id number] [address] [place] [address] Apr, Dysuria R30.0 and Acute cyst itis with hematuria N30.01 [facility] [id number] [place] [phone] Apr, [facility] [id number] [place] [address] Apr, [facility] [id number] [place] [address] Apr, [facility] [id number] [place] [address] Apr, Anxiety F41.9 [facility] [id number] [place] [phone] Feb, Anxiety F41.9 [facility] [address] [place] [address] Jan, [facility] [address] [facility] [id number] [address] [place] [address] Jan, Severe scoliosis M41.9 [facility] [address] [facility] [id number] [address] [place] [phone] 17 Jan, 2017 [facility] [id number] [place] [address] 15 Jan, 2017 Tremor of unknown origin R25 .1 ; Headache, unspecified headache type R51 ; Balance problem R26.89 ; Degenerative scoliosis M41.9 ; Pain in right hip M25.551 and Pain in left hip M25.552 [place] [id number] [place] [address] 14 Jan, 2017 Tremor of unknown origin R25 .1 ; Headache, unspecified headache type R51 ; Balance problem R26.89 ; Degenerative scoliosis M41.9 ; Pain in right hip M25.551 and Pain in left hip M25.552 [facility] [id number] [place] [address] Jan, [place] [id number] [place] [address] Oct, Essential hypertension I10 ; Vitamin D deficiency E55.9 ; Depression F32.9 ; Anxiety F41.9 ; Lumbar pain M54.5 and Screening for colon cancer Z12.11 [facility] [id number] [place] [address] Aug, [facility] [id number] [place] [address] Dec, [place] [id number] [place] [address] Dec, Hammertoe M20.40 [facility] [id number] [place] [address] Oct, [place] [address] [id number] [address] [place] [phone] Oct, Essential hypertension I10 ; Vitamin D deficiency E55.9 ; Depression F32.9 ; Anxiety F41.9 ; Lumbar pain M54.5 and Hammer toe of left foot M20.42 [facility] [address] [id number] [address] [place] [address] Sep, Acute upper respiratory infe ction, unspecified J06.9 and Other viral agents as the cause of diseases classified elsewhere B97.89 [facility] [address] [id number] [address] [place] [id number] Apr, Dental examination V72.2 [facility] [address] [id number] [address] [place] [id number] Apr, Dental examination V72.2 [facility] [address] [id number] [place] [id number] Apr, Dental examination V72.2 [facility] [address] [id number] [address] [place] [address] [id number] Apr, Dental examination V72.2 [facility] [address] [id number] [place] [id number] March, Dental examination V72.2 [facility] [address] [id number] [address] [place] [phone] March, [facility] [address] [id number] [address] [place] [phone] Feb, [facility] [address] [id number] [address] [place] [phone] Feb, [facility] [address] [id number] [address] [place] [phone] Oct, [facility] [address] [id number] [address] [place] [phone] Oct, [facility] [address] [id number] [address] [place] [phone] Sep, [facility] [address] [id number] [address] [place] [address], [place] [address] Sep, [facility] [address] [id number] [address] [place] [address], [place] [address] Sep, [facility] [address] [id number] [address] [place] [address], [place] [address] Sep, [facility] [address] [id number] [address] [place] [address], [place] [address] Aug, [facility] [address] [id number] [address] [place] [address], [place] [address] Aug, [facility] [address] [id number] [address] [place] [address], [place] [address] Jul, [facility] [address] [id number] [address] [place] [address], [place] [address] Jul, [facility] [address] [id number] [address] [place] [address], [place] [address] Jun, [facility] [address] [id number] [address] [place] [address], [place] [address] Jun, [facility] [address] [id number] [address] [place] [address], [place] [address] May, [facility] [address] [id number] [address] [place] [address], [place] [address] May, [facility] [address] [id number] [address] [place] [address], [place] [address] May, [facility] [address] [id number] [address] [place] [address], [place] [address] May, [facility] [address] [id number] [address] [place] [address], [place] [address] May, [facility] [address] [id number] [address] [place] [address], [place] [address] May, [facility] [address] [id number] [address] [place] [address], [place] [address] Apr, [facility] [address] [id number] [address] [place] [address], [place] [address] Apr, [facility] [address] [id number] [address] [place] [address], [place] [address] March, [facility] [address] [id number] [address] [place] [address], [place] [address] March, [facility] [address] [id number] [address] [place] [address], [place] [address] March, [facility] [address] [id number] [address] [place] [address], [place] [address] March, [facility] [address] [id number] [address] [place] [address], [place] [address] Jan, [facility] [address] [id number] [address] [place] [address], [place] [address] Jan, [facility] [address] [id number] [address] [place] [address], [place] [address] Dec, [facility] [address] [id number] [address] [place] [address], [place] [address] Dec, [facility] [address] [id number] [address] [place] [address], [place] [address] Nov, [facility] [address] [id number] [address] [place] [address], [place] [address] Nov, [facility] [address] [id number] [address] [place] [address], [place] [address] Nov, [facility] [address] [id number] [address] [place] [address], [place] [address] Nov, [facility] [address] [id number] [address] [place] [address], [place] [address] Nov, [facility] [address] [id number] [address] [place] [address], [place] [address] Nov, [facility] [address] [id number] [address] [place] [address], [place] [address] Oct, [facility] [address] [id number] [address] [place] [address], [place] [address] Oct, [facility] [address] [id number] [address] [place] [address], [place] [address] Oct, [facility] [address] [id number] [address] [place] [address], [place] [address] Oct, [facility] [address] [id number] [address] [place] [address], [place] [address] Sep, [facility] [address] [id number] [address] [place] [address], [place] [address] Sep, [facility] [address] [id number] [address] [place] [address], [place] [address] Sep, [facility] [address] [id number] [address] [place] [address], [place] [address] Sep, [facility] [address] [id number] [address] [place] [address], [place] [address] Aug, [facility] [address] [id number] [address] [place] [phone] Aug, [facility] [address] [id number] [address] [place] [address] Aug, [facility] [address] [id number] [address] [place] [address] Aug, [facility] [address] [id number] [address] [place] [address] Jul, [facility] [address] [id number] [address] [place] [id number] Jun, [facility] [address] [id number] [address] [place] [address] Jun, [facility] [address] [id number] [address] [place] [phone] Jun, [facility] [address] [id number] [address] [place] [address], [place] [address] Jun, [facility] [address] [id number] [address] [place] [address], [place] [address] Jun, [facility] [address] [id number] [address] [place] [address], [place] [address] May, [facility] [address] [id number] [address] [place] [address], [place] [address] Apr, [facility] [address] [id number] [address] [place] [address], [place] [address] Apr, [facility] [address] [id number] [address] [place] [address], [place] [address] March, [facility] [address] [id number] [address] [place] [address], [place] [address] March, [facility] [address] [id number] [address] [place] [address], [place] [address] March, [facility] [address] [id number] [address] [place] [address], [place] [address] March, [facility] [address] [id number] [address] [place] [address], [place] [address] March, [facility] [address] [id number] [address] [place] [address], [place] [address] Feb, [facility] [address] [id number] [address] [place] [address], [place] [address] Feb, [facility] [address] [id number] [address] [place] [address], [place] [address] Jan, [facility] [address] [id number] [address] [place] [address], [place] [address] Jan, [facility] [address] [id number] [address] [place] [address], [place] [address] Jan, [facility] [address] [id number] [address] [place] [address], [place] [address] 15 Jan, 2013 [facility] [address] [id number] [address] [place] [address], [place] [address] 15 Jan, 2013 [facility] [address] [id number] [address] [place] [address], [place] [address] 14 Jan, 2013 [facility] [address] [id number] [address] [place] [address], [place] [address] 14 Jan, 2013 [facility] [address] [id number] [address] [place] [address], [place] [address] 13 Jan, 2013 [facility] [address] [id number] [address] [place] [address], [place] [address] 26 Dec, 2012 [facility] [address] [id number] [address] [place] [address], [place] [address] 18 Dec, 2012 [facility] [address] [id number] [address] [place] [address], [place] [address] 15 Dec, 2012 [facility] [address] [id number] [address] [place] [address], [place] [address] 15 Dec, 2012 [facility] [address] [id number] [address] [place] [address], [place] [address] 14 Dec, 2012 [facility] [address] [id number] [address] [place] [address], [place] [address] 13 Dec, 2012 [facility] [address] [id number] [address] [place] [address], [place] [address] 12 Dec, 2012 [facility] [address] [id number] [address] [place] [address], [place] [address] 05 Dec, 2012 [facility] [address] [id number] [address] [place] [address], [place] [address] Nov, [facility] [address] [id number] [address] [place] [address], [place] [address] Nov, [facility] [address] [id number] [address] [place] [phone] Nov, [facility] [address] [facility] [id number] [address] [place] [phone] Nov, IMMUNIZATIONS No Known Immunizations SOCIAL HISTORY Never Assessed REASON FOR VISIT UTI symptoms started Celestino Joseph PLAN OF CARE Activity Details Follow Up if not improving or regular follow up with pcp Reason: Pending Test CULTURE, URINE VITAL SIGNS Height 64 in 2018-10-02 Weight 103.4 lbs 2018-10-02 Temperature 96.8 degrees Fahrenheit 2018-10-02 Heart Rate 84 bpm 2018-10-02 Respiratory Rate 22 2018-10-02 BMI 17.75 kg/m2 2018-10-02 MEDICATIONS Medication Instructions Dosage Frequency Start Date End Date Duration S tatus Fluoxetine HCl 20 mg Orally once daily 1 capsule 24h Active Tramadol HCl 50 mg Orally every 6 hrs 1 tablet as needed 6h Active Vitamin D 1000 UNIT Orally 2 times a day 1 tablet 12h Oct 90 days Active Macrobid 100 MG Orally every 12 hrs 1 capsule with food 12h 23 N 2017 5 days Active Calcium 600 mg Orally Twice a day 1 Capsule by Oral route 2 times p er day 12h Jun, 30 days Active Vitamin C 500 mg Orally Once a day 1 tablet 24h 90 d ays Active Lorazepam 0.5 MG Orally Once a day 1 tablet as needed 24h 28 days Active RESULTS Name Result Date Reference Range UA LONG DIP (IN HOUSE) 2018-10-02 Lot # [id number] Exp date 2019-06-09 Clarity cloudy Color yellow Odor none GLU negative MIRTA negative KET negative SG 1.010 BLO 1+ pH 7.0 Protein negative URO 0.2 NIT positive CHIQUITA 1+ Lot # [id number] Exp date Oct 2018 PROCEDURES Procedure Date Ordered Result Body Site [facility] Oct 02, 2018 URINALYSIS, AUTO, W/O SCOPE Oct 02, 2018 [facility] VISIT ESTABLISHED PATIENT Oct 02, 2018 INSTRUCTIONS MEDICATIONS ADMINISTERED No Known Medications [...]
--- OUTSIDE RECORDS SUMMARY | 2020-02-19 13:37 | XMS REPORT ---
Author Author Sherly SOTOMAYOR [facility] Address [address] [place] [address] Care Team Providers Care Tonger Name Role Phone ESTELLA SOTOMAYOR Unavailable PROBLEMS Type Condition ICD9-CM Code [id number] Code Onset Dates Condition S tatus SNOMED Code Problem Essential hypertension I10 Active 21623194 Problem Depression F32.9 Active 09802641 Problem Vitamin D deficiency E55.9 Active 26288376 Problem Severe scoliosis M41.9 Active 298 536746 Problem Lumbar pain M54.5 Active 62833663 7 Problem Postoperative anemia D64.9 Active 266495402 Problem History of spinal fusion for scoliosis Z98.1 Active 332894674 Problem Tremor of unknown origin R25.1 Activ e 41299195 Problem Anxiety F41.9 Active 52724864 Problem Headache, unspecified headache type R51 Active 46017901 Problem Balance problem R26.89 Active 3876 02130 ALLERGIES No Information SOCIAL HISTORY Never Assessed [...]
--- OUTSIDE RECORDS SUMMARY | 2020-02-19 13:38 | XMS REPORT | Continuity of Care Document ---
Author Author [facility] Organization [facility] Address [address] [place] [id number] Phone Care Team Providers Care Generator Man Name Role Phone Piter Vinson PCP Piter Vinson Attphys Allergies, Adverse Reactions, Alerts No known allergies. Medications Medication Status Dose Units Route Sig Qty Days Start Date End Date Instructions Calcium Carbonate/Vitamin D3 Active 1 TAB Oral Daily November 23, 2018 7:58am Multivit With Calcium,Iron,Min Active 1 TAB Oral Daily November 23, 2018 7 :58am [place]-3/Dha/Epa/Fish Oil Active 2 EACH Oral Daily November 23, 2018 7:58am Pyridoxine Active 100 MG Oral Daily November 23, 2018 7:58am Problems No problem information available. Procedures Procedure Date Performed Status MM screening trevin BI w/praneeth December 16, 2019 completed Relevant Diagnostic Tests and/or Laboratory Data Diagnostic Imaging Reports Report Dictated Date/Time Dictated By Status Radiology Report December 01, 2018 3:29pm Joseph Milan MD completed [facility] at [address] [address] Mammography Report Signed Patient: Sherly Do MR#: [id number] : 1955 [id number] Age/Sex: 63 / F ADM Date: 9 Loc: WC.BC DIS Date: = = = = = = = = = = = = = = = = = = = = = = = = = = = = = = = = = = = = = = = = = = = = = = = = = = = = = = = = = = = Date of Exam: 12/01/18 Ordering Provider: Piter Dupree MD Type of Exam(s): MM screening trevin BI w/praneeth Reason for Exam(s): mammo screening #[id number] - MM SCREENING TREVIN BI W/PRANEETH BILATERAL DIGITAL SCREENING MAMMOGRAM 3D/2D WITH CAD: 12/01/2018 CLINICAL: Z12.31-Encounter for screening mammogram. Digital Breast Tomosynthesis was performed. Current study was also evaluated with a Computer Aided Detection (CAD) system. Comparison is made to exams dated: [place]/2016 [place] [facility] [place], 05/31/2015 [facility], [facility] The tissue of both breasts is extremely dense, which lowers the sensitivity of mammography. No significant masses, calcifications, or other findings are seen in either breast. IMPRESSION: NEGATIVE There is no mammographic evidence of malignancy. A 1 year screening mammogram is recommended. The patient was notified of the results. Dr. Joseph [facility]/:12/01/2018 15:29:52 Pillowcase Turner: Seema Trivedi RT(R)(M), [facility] [place]: Normal/Benign Category 1/2 BI-RADS: 1 Negative Health Concerns Health Concerns may be documented in an alternate section. Chief Complaint and Reason for Visit Chief Complaint screening mammo Encounters Encounter Location(s) [place] [facility]/Admit Date Discharge/Depart Date Provider(s) Departed [facility] December 01, 2018 2:50pm December 012018 2:51pm [facility] 7:42am December 162019 7:43am Piter Palacio MD Assessments No Assessments Information Available Family History Relationship Condition A ge at Onset Recorded Date/Time mother Unknown Hypertension Unknown Unknown Arthritis Unknown father Hypertension Unkn own sister Autoimmune disease Unknown Functional Status No Functional Status information available Goals Goals may be documented in an alternate section. Immunizations No Immunization Information Available Mental Status No Mental Status Information Available Medical Equipment No Medical Equipment Information available Insurance Providers Guarantor Sherly Do Address [address] [facility] [address] Contact Info. Home Phone: Payer Policy Id Coverage Id Subscriber's Name Subscriber Id Effective Date Expiration Date [facility] [id number] Self Pay Self N/A [facility] [id number] Social History Smoking Status Status Date of Observation Unknown if ever smoked November 23, 2018 7:43am Observation Status Observation Response Jaime e of Response alcohol intake current J anuary 2018 7:35am alcohol intake frequency a few times a month November 23, 2018 7:35am substance use type does not use November 23, 2018 7:35am Assigned Sex Female Vital Signs No vital signs result information available.
--- OUTSIDE RECORDS SUMMARY | 2020-02-19 13:38 | XMS REPORT | Continuity of Care Document ---
Author [facility] Address [address] [place] [address] Care Team Providers Care Security Control Assessor Name Role Phone Piter Dupree V PCP Piter Dupree V Attphys Allergies, Adverse Reactions, Alerts No known allergies. Medications Active Medications Medication Dose Units Route Sig Start Date Status Calcium Carbonate/Vitamin D3 [Calcium 1,000 + D3 Caplet] 1 T AB PO Daily November 23, 2018 Active Multivit With Calcium,Iron,Min [Multiple Vitamins For Women] 1 TAB PO Daily November 23, 2018 Active [place]-3/Dha/Epa/Fish Oil [Fish Oil 1,000 Mg Softgel] 2 EACH PO Daily November 23, 2018 Active Pyridoxine [Vitamin B-6] 100 MG PO Daily 2018 Active Problem List No problem information available. Procedures Procedure Date Status Provider(s) November 23, 2018 completed Elie Vidal MD MM screening [place] BI w/brendon December 01, 2018 completed Relevant Diagnostic Tests and/or Laboratory Data No known relevant diagnostic tests, laboratory data, and/or discharge summary. Advance Directives Advance Directive Response Recorded Date/Time Advance Directives Yes November 23, 2018 7:3 2am Advance Directives on File No November 23 019 7:32am Health Care Proxy No November 23, 2018 7:3 2am Living Will No November 23, 2018 7:3 2am Chief Complaint and Reason for Visit Encounter Admit Date Chief Complaint Reason for Visit Departed Clinical December 01, 2018 2:50pm mammo screening Hospital Discharge Instructions Query Response Comment Date/Time Diet As Tolerated 11/23/2018 09:[address] today 11/23/2018 09 :07 Wound Care N/A 11/23/2018 09:07 Expected Signs/Symptoms None 11/23/19 19 09:07 Notify Physician If 11/23/2018 0 9:07 During Business Hours Call [phone] 11/23/19 19 09:07 After Business Hours Call [phone] (hospital) 11/23/2018 09:07 Pending Lab/Results No Pending Lab 11/23/2018 0 9:07 Hospital Discharge Medications Medication Dose Units Route Sig Qty Days Order Date Status In structions Calcium Carbonate/Vitamin D3 1 TAB PO Daily Ja bernardoary 2018 Active Multivit With Calcium,Iron,Min 1 TAB PO Daily November 23, 2018 Active [place]-3/Dha/Epa/Fish Oil 2 EACH PO Daily Janarcenior y 2018 Active Pyridoxine 100 MG PO Daily November 23, 2018 Act jaelyn Encounters Encounter Facility Location Admit/Visit Date Discharge/Departure Date Attending Provider Departed Clinical [facility] December 01, 2018 2:50pm December 01, 2018 2:51pm Piter Dupree Departed Surgical Day [facility] November 23, 2018 7:09am November 23, 2018 9:51am Elie Vidal Functional Status No known functional status. Immunizations No known immunizations. Payers Payer Name Policy Type Covered Libertarian Covered Libertarian Id Relationship Sub scriber Subscriber Id [employer] Commercial [id number] Self Pay Personal Payment ([place] - No Insurance) [employer] [id number] Plan of Care No Known Plan of Care Information Social History Query Response Date Recorded Comment alcohol intake current November 23, 2018 7:35am substance use type does not use November 23, 2018 7:35am Query Response Start Date Stop Date Smoking Status Never smoker Vital Signs Vital Reading Result Reference Range Collection Date/ Time Height 5 ft 4 in November 23, 2018 7:17am Weight 57.3 kg November 23, 2018 7:17am Temperature 97.1 F 96.8 F-100.4 F November 23, 2018 9:32am Pulse 44 BPM 60-100 November 23, 2018 9:38am Respiration 20 RPM 10-24 November 23, 2018 9:32am Pulse Oximetry 100 % 90-100 November 23, 2018 9:32am Blood Pressure Systolic 135 -139 November 23, 2018 9:32am Blood Pressure Diastolic 62 -89 November 23, 2018 9:32am Body Mass Index 21.7 November 23, 2018 7:17am
--- OUTSIDE RECORDS SUMMARY | 2020-02-19 13:38 | XMS REPORT | Continuity of Care Document ---
Author [facility] Address [address] [place] [address] Care Team Providers Care Endoscopy Nurse Name Role Phone JhonPiter feldman Hakeem PCP Elie Vidal Attphys Allergies, Adverse Reactions, Alerts No known allergies. Medications Active Medications Medication Dose Units Route Sig Start Date Status Calcium Carbonate/Vitamin D3 [Calcium 1,000 + D3 Caplet] 1 T AB PO Daily November 23, 2018 Active Multivit With Calcium,Iron,Min [Multiple Vitamins For Women] 1 TAB PO Daily November 23, 2018 Active [place]-3/Dha/Epa/Fish Oil [Fish Oil 1,000 Mg Softgel] 2 EACH PO Daily November 23, 2018 Active Pyridoxine [Vitamin B-6] 100 MG PO Daily 2018 Active Problem List No problem information available. Procedures Procedure Date Status Provider(s) November 23, 2018 completed Elie Vidal MD Relevant Diagnostic Tests and/or Laboratory Data No [...] Date Chief Complaint Reason for Visit Departed Surgical Day Care November 23, 2018 7:09am Personal hx adenomatous polyps Hospital Discharge Instructions Query Response Comment Date/Time Diet As Tolerated 11/23/2018 09:[address] today 11/23/2018 09 :07 Wound Care N/A 11/23/2018 09:07 Expected Signs/Symptoms None 11/23/19 19 09:07 Notify Physician If 11/23/2018 0 9:07 During Business Hours Call [phone] 11/23/19 19 09:07 After Business Hours Call [phone] (hospital) 11/23/2018 09:07 Pending Lab/Results No Pending Lab 11/23/2018 0 9:07 Hospital Discharge Medications Medication Dose Units Route Sig Qty Days Order Date Status In structions Calcium Carbonate/Vitamin D3 1 TAB PO Daily Ney rosario 2018 Active Multivit With Calcium,Iron,Min 1 TAB PO Daily November 23, 2018 Active [place]-3/Dha/Epa/Fish Oil 2 EACH PO Daily Laurel benja 2018 Active Pyridoxine 100 MG PO Daily November 23, 2018 Act jaelyn Encounters Encounter Facility Location Admit/Visit Date Discharge/Departure Date Attending Provider Departed Surgical Day Care [facility] November 23, 2018 7:09am November 23, 2018 9:51am Elie Vidal Functional Status No known functional status. Immunizations No known immunizations. Payers Payer Name Policy Type Covered Democrat Covered Democrat Id Relationship Sub scriber Subscriber Id [employer] Commercial [id number] Self Pay Personal Payment ([place] - No Insurance) [facility] Commercial [id number] Plan of Care Instructions [facility] Surgical Services Social History Query Response Date Recorded Comment [...]
--- OUTSIDE RECORDS SUMMARY | 2020-02-19 13:38 | XMS REPORT | Continuity of Care Document ---
Author [facility] Address [address] [place] [address] Care Team Providers Care Corrugator Operator Name Role Phone Piter Dupree V PCP Piter Dupree V Attphys Allergies, Adverse Reactions, Alerts No known allergies. Medications Active Medications Medication Dose Units Route Sig Start Date Status Calcium Carbonate/Vitamin D3 [Calcium 1,000 + D3 Caplet] 1 T AB PO Daily November 23, 2018 Active Multivit With Calcium,Iron,Min [Multiple Vitamins For Women] 1 TAB PO Daily November 23, 2018 Active [place]-3/Dha/Epa/Fish Oil [Fish Oil 1,000 Mg Softgel] 2 [...] 11/23/2018 0 9:07 During Business Hours Call [phone] 11/23/19 19 09:07 After Business Hours Call [phone] (hospital) 11/23/2018 09:07 Pending Lab/Results No Pending Lab 11/23/2018 0 9:07 Hospital Discharge Medications Medication Dose Units Route Sig Qty Days Order Date Status In structions Calcium Carbonate/Vitamin D3 1 TAB PO Daily Ja bernardoary 2018 Active Multivit With Calcium,Iron,Min 1 TAB PO Daily November 23, 2018 Active [place]-3/Dha/Epa/Fish Oil 2 EACH PO Daily Janarcenior y 2018 Active Pyridoxine 100 MG PO Daily November 23, 2018 Act jaelyn Encounters Encounter Facility Location Admit/Visit Date Discharge/Departure Date Attending Provider Departed Clinical [facility] December 01, 2018 2:50pm December 01, 2018 2:51pm Piter Dupree Departed Surgical Day Care [facility] November 23, 2018 7:09am November 23, 2018 9:51am Elie Vidal Functional Status No known functional status. Immunizations No known immunizations. Payers Payer Name Policy Type Covered Libertarian Covered Libertarian Id Relationship Sub scriber Subscriber Id [employer] Commercial [id number] Self Pay Personal Payment ([place] - No Insurance) [employer] Commercial [id number] Plan of Care No Known Plan [...]
--- OUTSIDE RECORDS SUMMARY | 2020-02-19 13:38 | XMS REPORT ---
Author Author Sherly SOTOMAYOR Organization [facility] Address [address] [place] [address] Care Team Providers Care Fountain Server Name Role Phone ESTELLA SOTOMAYOR Unavailable PROBLEMS Type Condition ICD9-CM Code EDK42-[place] Code Onset Dates Condition S tatus SNOMED Code Problem Hypercholesteremia E78.00 Active 1 1283326 Problem History of hypertension Z86.79 Active 473197903 Problem History of spinal fusion for scoliosis Z98.1 Active 361513478 Problem Depression F32.9 Active 46305146 Problem Hyponatremia E87.1 Active 9859616 8 Problem Vitamin D deficiency E55.9 Active 86320728 Problem Anxiety F41.9 Active 86874628 ALLERGIES Substance Reaction Event Type Date Status Neosporin Unknown Drug Allergy Jan, Active Fosamax Unknown Drug Allergy Jan, Active Penicillin Unknown Drug Allergy Jan, Active Evista 60 Mg Tablet legs swelling Non Drug Allergy Jan, Act jaelyn ENCOUNTERS Encounter Location Date Diagnosis [place] [id number] [place] [address] May, Hyponatremia E87.1 [place] [id number] [address] [place] [address] May, [place] [id number] [address] [place] [address] Apr, Vasovagal syncope R55 ; Diar jose of presumed infectious origin R19.7 ; Black eye of left side, initial encounter S00.12XA ; Skin tear of left forearm without complication, initial encounter S51.812A ; Dehydration E86.0 ; Vitamin D deficiency E55.9 and Weight loss R63.4 [place] [id number] [address] [place] [address] Apr, Vitamin D deficiency E55.9 ; History of spinal fusion for scoliosis Z98.1 ; Anxiety F41.9 and Depression F32.9 [place] [address] [address] Jan, Essential hypertension I10 ; Depression F32.9 ; Anxiety F41.9 ; History of hypertension Z86.79 ; History of anemia Z86.2 and Hyponatremia E87.1 [place] [address] [address] Dec, Hyponatremia E87.1 [facility] [address] [address] Dec, Fever, unspecified fever cau se R50.9 and Acute nasopharyngitis J00 [address] [address] Nov, Hyponatremia E87.1 [place] [address] [address] Oct, Essential hypertension I10 ; Long-term use of high-risk medication Z79.899 and Vitamin D deficiency E55.9 [place] [address] [address] Oct, Essential hypertension I10 ; Depression F32.9 ; Anxiety F41.9 ; Long-term use of high-risk medication Z79.899 and Vitamin D deficiency E55.9 [place] [address] [address] Jun, History of spinal fusion for scoliosis Z98.1 ; Postoperative anemia D64.9 ; Essential hypertension I10 ; Depression F32.9 and Anxiety F41.9 [place] [address] [address] Jun, History of spinal fusion for scoliosis Z98.1 ; Postoperative anemia D64.9 ; Essential hypertension I10 ; Depression F32.9 and Anxiety F41.9 [place] [address] [facility] [id number] [address] [place] [address] May, History of spinal fusion for scoliosis Z98.1 ; Postoperative anemia D64.9 ; Essential hypertension I10 ; Depression F32.9 and Anxiety F41.9 [facility] [address] [facility] [id number] [address] [place] [address] May, [facility] [address] [facility] [id number] [address] [place] [address] Apr, Dysuria R30.0 and Acute cyst itis with hematuria N30.01 [facility] [address] [id number] [address] [place] [address] Apr, [facility] [address] [facility] [id number] [address] [place] [address] Apr, [facility] [address] [facility] [id number] [address] [place] [address] Apr, [facility] [address] [facility] [id number] [address] [place] [address] Apr, Anxiety F41.9 [facility] [address] [facility] [id number] [address] [place] [address] Feb, Anxiety F41.9 [facility] [address] [facility] [id number] [address] [place] [address] Jan, [facility] [address] [facility] [id number] [address] [place] [address] Jan, Severe scoliosis M41.9 [facility] [address] [facility] [id number] [address] [place] [address] Jan, [facility] [address] [place] [id number] [address] [place] [address] Jan, Tremor of unknown origin R25 .1 ; Headache, unspecified headache type R51 ; Balance problem R26.89 ; Degenerative scoliosis M41.9 ; Pain in right hip M25.551 and Pain in left hip M25.552 [place] [address] [facility] [id number] [address] [place] [address] 14 Jan, 2017 Tremor of unknown origin R25 .1 ; Headache, unspecified headache type R51 ; Balance problem R26.89 ; Degenerative scoliosis M41.9 ; Pain in right hip M25.551 and Pain in left hip M25.552 [place] [address] [facility] [id number] [address] [place] [address] 10 Jan, 2017 [place] [address] [place] [id number] [address] [place] [address] 08 Oct, 2016 Essential hypertension I10 ; Vitamin D deficiency E55.9 ; Depression F32.9 ; Anxiety F41.9 ; Lumbar pain M54.5 and Screening for colon cancer Z12.11 [place] [address] [place] [id number] [place] [address] Aug, [place] [address] [place] [id number] [place] [address] Dec, [place] [address] [place] [id number] [address] [place] [address] Dec, Hammertoe M20.40 [place] [id number] [address] [place] [address] Oct, [place] [address] [place] [id number] [place] [address] Oct, Essential hypertension I10 ; Vitamin D deficiency E55.9 ; Depression F32.9 ; Anxiety F41.9 ; Lumbar pain M54.5 and Hammer toe of left foot M20.42 [place] [id number] [address] [place] [address] Sep, Acute upper respiratory infe ction, unspecified J06.9 and Other viral agents as the cause of diseases classified elsewhere B97.89 [facility] [address] [facility] [id number] [address] [place] [id number] Apr, Dental examination V72.2 [facility] [address] [id number] [address] [place] [address] [id number] Apr, Dental examination V72.2 [facility] [address] [id number] [address] [place] [id number] Apr, Dental examination V72.2 [facility] [address] [id number] [address] [place] [address] [id number] Apr, Dental examination V72.2 [facility] [address] [id number] [address] [place] [id number] March, Dental examination V72.2 [facility] [address] [id number] [address] [place] [address] March, [facility] [address] [id number] [address] [place] [address] Feb, [facility] [address] [id number] [address] [place] [address] Feb, [facility] [address] [id number] [address] [place] [address] Oct, [facility] [address] [id number] [address] [place] [address] Oct, [facility] [address] [id number] [address] [place] [address] Sep, [facility] [address] [id number] [address] [place] [address] Sep, [facility] [address] [id number] [address] [place] [address] Sep, [facility] [address] [id number] [address] [place] [address] Sep, [facility] [address] [id number] [address] [place] [address] Aug, [facility] [address] [id number] [address] [place] [address] Aug, [facility] [address] [id number] [facility] [place] [address] Jul, [facility] [address] [id number] [address] [place] [address], [place] [address] Jul, [facility] [address] [id number] [address] [place] [address], [place] [address] Jun, [facility] [address] [id number] [address] [place] [address], [place] [address] Jun, [facility] [address] [id number] [address] [place] [address], [place] [address] May, [facility] [address] [id number] [address] [place] [address], [place] [address] May, [facility] [address] [id number] [address] [place] [address], [place] [address] May, [facility] [address] [id number] [address] [place] [address], [place] [address] May, [facility] [address] [id number] [address] [place] [address], [place] [address] May, [facility] [address] [id number] [address] [place] [address], [place] [address] May, [facility] [address] [id number] [address] [place] [address], [place] [address] Apr, [facility] [address] [id number] [address] [place] [address], [place] [address] Apr, [facility] [address] [id number] [address] [place] [address], [place] [address] March, [facility] [address] [id number] [address] [place] [address], [place] [address] March, [facility] [address] [id number] [address] [place] [address], [place] [address] March, [facility] [address] [id number] [address] [place] [address], [place] [address] March, [facility] [address] [id number] [facility] [place] [address] Jan, [facility] [address] [id number] [address] [place] [address], [place] [address] Jan, [facility] [address] [id number] [address] [place] [address], [place] [address] Dec, [facility] [address] [id number] [address] [place] [address], [place] [address] Dec, [facility] [address] [id number] [address] [place] [address], [place] [address] Nov, [facility] [address] [id number] [address] [place] [address], [place] [address] Nov, [facility] [address] [id number] [address] [place] [address], [place] [address] Nov, [facility] [address] [id number] [address] [place] [address], [place] [address] Nov, [facility] [address] [id number] [address] [place] [address], [place] [address] Nov, [facility] [address] [id number] [address] [place] [address], [place] [address] Nov, [facility] [address] [id number] [address] [place] [address], [place] [address] Oct, [facility] [address] [id number] [address] [place] [address], [place] [address] Oct, [facility] [address] [id number] [address] [place] [address], [place] [address] Oct, [facility] [address] [id number] [address] [place] [address], [place] [address] Oct, [facility] [address] [id number] [address] [place] [address], [place] [address] Sep, [facility] [address] [id number] [address] [place] [address], [place] [address] Sep, [facility] [address] [id number] [address] [place] [address], [place] [address] Sep, [facility] [address] [id number] [address] [place] [address], [place] [address] Sep, [facility] [address] [id number] [address] [place] [address], [place] [address] Aug, [facility] [address] [id number] [address] [place] [address], [place] [address] Aug, [facility] [address] [id number] [address] [place] [address], [place] [address] Aug, [facility] [address] [id number] [address] [place] [address], [place] [address] Aug, [facility] [address] [id number] [address] [place] [address], [place] [address] Jul, [facility] [address] [id number] [address] [place] [address], [place] [address] Jun, [facility] [address] [id number] [address] [place] [address], [place] [address] Jun, [facility] [address] [id number] [address] [place] [address], [place] [address] Jun, [facility] [address] [id number] [address] [place] [address], [place] [address] Jun, [facility] [address] [id number] [address] [place] [address], [place] [address] Jun, [facility] [address] [id number] [address] [place] [address], [place] [address] May, [facility] [address] [id number] [address] [place] [address], [place] [address] Apr, [facility] [address] [id number] [address] [place] [address], [place] [address] Apr, [facility] [address] [id number] [address] [place] [address], [place] [address] March, [facility] [address] [id number] [address] [place] [address], [place] [address] March, [facility] [address] [id number] [address] [place] [address], [place] [address] March, [facility] [address] [id number] [address] [place] [address], [place] [address] March, [facility] [address] [id number] [address] [place] [address], [place] [address] March, [facility] [address] [id number] [address] [place] [address], [place] [address] Feb, [facility] [address] [id number] [address] [place] [address], [place] [address] Feb, [facility] [address] [id number] [address] [place] [address], [place] [address] Jan, [facility] [address] [id number] [address] [place] [address], [place] [address] 25 Jan, 2013 [facility] [address] [id number] [address] [place] [address], [place] [address] Jan, [facility] [address] [id number] [address] [place] [address], [place] [address] 15 Jan, 2013 [facility] [address] [id number] [address] [place] [address], [place] [address] 15 Jan, 2013 [facility] [address] [id number] [address] [place] [address], [place] [address] 14 Jan, 2013 [facility] [address] [id number] [address] [place] [address], [place] [address] 14 Jan, 2013 [facility] [address] [id number] [address] [place] [address], [place] [address] 13 Jan, 2013 [facility] [address] [id number] [address] [place] [address] Dec, [facility] [address] [id number] [address] [place] [address] 18 Dec, 2012 [facility] [address] [id number] [address] [place] [address] Dec, [facility] [address] [id number] [address] [place] [address] Dec, [facility] [address] [id number] [address] [place] [address] Dec, [facility] [address] [id number] [address] [place] [address] Dec, [facility] [address] [id number] [address] [place] [address] Dec, [facility] [address] [id number] [address] [place] [address] Dec, [facility] [address] [id number] [address] [place] [address] Nov, [facility] [address] [id number] [address] [place] [address] Nov, [facility] [address] [id number] [address] [place] [address] Nov, [facility] [address] [id number] [address] [place] [address] Nov, IMMUNIZATIONS No Known Immunizations SOCIAL HISTORY Never Assessed REASON FOR VISIT Blood Pressure fu -- alecia george PLAN OF CARE Activity Details Follow Up 3 Months. if not improving w el PCP or reg follow up Reason:anxiety VITAL SIGNS Height 64 in 2018-02-03 Weight 103.0 lbs 2018-02-03 Temperature 98.2 degrees Fahrenheit 2018-02-03 Heart Rate 92 bpm 2018-02-03 Respiratory Rate 20 2018-02-03 BMI 17.68 kg/m2 2018-02-03 Blood pressure systolic 118 mmHg 2018-02-03 Blood pressure diastolic 68 mmHg 2018-02-03 MEDICATIONS Medication Instructions Dosage Frequency Start Date End Date Duration S pablo Vitamin D 1000 UNIT Orally 2 times a day 1 tablet 12h Active Colace 100 MG Orally Once a day 1 capsule as needed 24h Active Aspirin 81 81 MG Orally Once a day 1 tablet 24h Active Fluoxetine HCl 20 mg Orally once daily 1 capsule 24h 30 days Active Calcium 600 mg 1 Capsule by Oral route 2 times per day 2 2 Jun, 2013 Active Tramadol HCl 50 MG Orally every 6 hrs 1 tablet as needed 6h Active FeroSul 220 (44 Fe) MG/5ML Active Lorazepam 0.5 MG Orally Once a day 1 tablet as needed 24h 28 days Active Vitamin C 500 MG Orally Once a day 1 tablet 24h Active RESULTS No Results PROCEDURES Procedure Date Ordered Result Body Site [facility] VISIT ESTABLISHED PATIENT February 03, 2018 ELVIS GUILLAUME* February 03, 2018 LAB NOT BILLED BY [facility] February 03, 2018 INSTRUCTIONS MEDICATIONS ADMINISTERED No Known Medications [...]
--- OUTSIDE RECORDS SUMMARY | 2020-02-19 13:38 | XMS REPORT ---
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 Name Role Phone JOLANTA EATON Unavailable PROBLEMS Type Condition ICD9-CM Code EUL63-II Code Onset Dates Condition S tatus SNOMED Code Problem Hypercholesteremia E78.00 Active 1 2067818 Problem History of hypertension Z86.79 Active 960876301 Problem History of spinal fusion for scoliosis Z98.1 Active 222592822 Problem Depression F32.9 Active 54891609 Problem Hyponatremia E87.1 Active 8516370 8 Problem Vitamin D deficiency E55.9 Active 03266920 Problem Anxiety F41.9 Active 99383911 ALLERGIES Substance Reaction Event Type Date Status Neosporin Unknown Drug Allergy Apr, Active Fosamax Unknown Drug Allergy Apr, Active Penicillin Unknown Drug Allergy Apr, Active Evista 60 Mg Tablet legs swelling Non Drug Allergy Apr, Act jaelyn ENCOUNTERS Encounter Location Date Diagnosis [facility] [address] [place] [address] Jul, [facility] [address] [place] [id number] [address] [place] [address] May, Hyponatremia E87.1 [facility] [address] [place] [id number] [address] [place] [address] May, [facility] [address] [place] [address] Apr, Vasovagal syncope R55 ; Diar jose of presumed infectious origin R19.7 ; Black eye of left side, initial encounter S00.12XA ; Skin tear of left forearm without complication, initial encounter S51.812A ; Dehydration E86.0 ; Vitamin D deficiency E55.9 and Weight loss R63.4 [facility] [address] [facility] [id number] [address] [place] [address] Apr, Vitamin D deficiency E55.9 ; History of spinal fusion for scoliosis Z98.1 ; Anxiety F41.9 and Depression F32.9 [place] [id number] [facility] [id number] [address] [place] [address] Jan, Essential hypertension I10 ; Depression F32.9 ; Anxiety F41.9 ; History of hypertension Z86.79 ; History of anemia Z86.2 and Hyponatremia E87.1 [facility] [address] [facility] [id number] [address] [place] [address] Dec, Hyponatremia E87.1 [facility] [address] [facility] [id number] [address] [place] [address] Dec, Fever, unspecified fever cau se R50.9 and Acute nasopharyngitis J00 [place] [address] [place] [address] Nov, Hyponatremia E87.1 [facility] [address] [facility] [id number] [address] [place] [address] Oct, Essential hypertension I10 ; Long-term use of high-risk medication Z79.899 and Vitamin D deficiency E55.9 [place] [address] [place] [id number] [address] [place] [address] Oct, Essential hypertension I10 ; Depression F32.9 ; Anxiety F41.9 ; Long-term use of high-risk medication Z79.899 and Vitamin D deficiency E55.9 [facility] [address] [facility] [id number] [address] [place] [address] Jun, History of spinal fusion for scoliosis Z98.1 ; Postoperative anemia D64.9 ; Essential hypertension I10 ; Depression F32.9 and Anxiety F41.9 [facility] [address] [facility] [id number] [address] [place] [address] Jun, History of spinal fusion for scoliosis Z98.1 ; Postoperative anemia D64.9 ; Essential hypertension I10 ; Depression F32.9 and Anxiety F41.9 [facility] [address] [facility] [id number] [address] [place] [address] May, History of spinal fusion for scoliosis Z98.1 ; Postoperative anemia D64.9 ; Essential hypertension I10 ; Depression F32.9 and Anxiety F41.9 [facility] [address] [facility] [id number] [address] [place] [address] May, [facility] [address] [facility] [id number] [address] [place] [address] Apr, Dysuria R30.0 and Acute cyst itis with hematuria N30.01 [facility] [address] [facility] [id number] [address] [place] [address] Apr, [facility] [address] [place] [id number] [address] [place] [address] Apr, [facility] [address] [place] [id number] [address] [place] [address] Apr, [facility] [address] [place] [id number] [address] [place] [address] Apr, Anxiety F41.9 [facility] [address] [place] [id number] [address] [place] [address] Feb, Anxiety F41.9 [facility] [address] [place] [id number] [address] [place] [address] Jan, [facility] [address] [facility] [id number] [address] [place] [address] Jan, Severe scoliosis M41.9 [facility] [address] [place] [id number] [address] [place] [address] Jan, [facility] [address] [facility] [id number] [address] [place] [address] Jan, Tremor of unknown origin R25 .1 ; Headache, unspecified headache type R51 ; Balance problem R26.89 ; Degenerative scoliosis M41.9 ; Pain in right hip M25.551 and Pain in left hip M25.552 [place] [address] [address] 14 Jan, 2017 Tremor of unknown origin R25 .1 ; Headache, unspecified headache type R51 ; Balance problem R26.89 ; Degenerative scoliosis M41.9 ; Pain in right hip M25.551 and Pain in left hip M25.552 [place] [address] [address] 10 Jan, 2017 [place] [address] [address] Oct, Essential hypertension I10 ; Vitamin D deficiency E55.9 ; Depression F32.9 ; Anxiety F41.9 ; Lumbar pain M54.5 and Screening for colon cancer Z12.[address] [address] Aug, [place] [address] [address] Dec, [place] [address] [address] Dec, [place] M20.[address] [address] Oct, [place] [address] [address] Oct, Essential hypertension I10 ; Vitamin D deficiency E55.9 ; Depression F32.9 ; Anxiety F41.9 ; Lumbar pain M54.5 and Hammer toe of left foot M20.42 [place] [address] [place] [id number] [address] [place] [address] Sep, Acute upper respiratory infe ction, unspecified J06.9 and Other viral agents as the cause of diseases classified elsewhere B97.89 [facility] [id number] [place] [id number] Apr, Dental examination V72.2 [facility] [address] [id number] [address] [place] [id number] Apr, Dental examination V72.2 [facility] [address] [id number] [address] [place] [id number] Apr, Dental examination V72.2 [facility] [address] [id number] [address] [place] [id number] Apr, Dental examination V72.2 [facility] [address] [id number] [address] [place] [address] [id number] March, Dental [facility] V72.2 [facility] [address] [id number] [address] [place] [address] March, [facility] [address] [id number] [address] [place] [phone] Feb, [facility] [address] [id number] [address] [place] [phone] Feb, [facility] [address] [id number] [address] [place] [address] Oct, [facility] [address] [id number] [address] [place] [phone] Oct, [facility] [address] [id number] [address] [place] [address] Sep, [facility] [address] [id number] [address] [place] [phone] Sep, [facility] [address] [id number] [address] [place] [address] Sep, [facility] [address] [id number] [address] [place] [phone] Sep, [facility] [address] [id number] [address] [place] [address] Aug, [facility] [address] [id number] [address] [place] [address], [place] [address] Aug, [facility] [address] [id number] [address] [place] [address], [place] [address] Jul, [facility] [address] [id number] [address] [place] [address], [place] [address] Jul, [facility] [address] [id number] [address] [place] [address], [place] [address] Jun, [facility] [address] [id number] [address] [place] [address], [place] [address] Jun, [facility] [address] [id number] [address] [place] [address], [place] [address] May, [facility] [address] [id number] [address] [place] [address], [place] [address] May, [facility] [address] [id number] [address] [place] [address], [place] [address] May, [facility] [address] [id number] [address] [place] [address], [place] [address] May, [facility] [address] [id number] [address] [place] [address], [place] [address] May, [facility] [address] [id number] [address] [place] [address], [place] [address] May, [facility] [address] [id number] [address] [place] [address], [place] [address] Apr, [facility] [address] [id number] [address] [place] [address], [place] [address] Apr, [facility] [address] [id number] [address] [place] [address], [place] [address] March, [facility] [address] [id number] [address] [place] [address], [place] [address] March, [facility] [address] [id number] [address] [place] [address], [place] [address] March, [facility] [address] [id number] [address] [place] [address], [place] [address] March, [facility] [address] [id number] [address] [place] [address], [place] [address] Jan, [facility] [address] [id number] [address] [place] [address], [place] [address] Jan, [facility] [address] [id number] [address] [place] [address], [place] [address] Dec, [facility] [address] [id number] [address] [place] [address], [place] [address] Dec, [facility] [address] [id number] [address] [place] [address], [place] [address] Nov, [facility] [address] [id number] [address] [place] [address], [place] [address] Nov, [facility] [address] [id number] [address] [place] [address], [place] [address] Nov, [facility] [address] [id number] [address] [place] [address], [place] [address] Nov, [facility] [address] [id number] [address] [place] [address], [place] [address] Nov, [facility] [address] [id number] [address] [place] [address], [place] [address] Nov, [facility] [address] [id number] [address] [place] [address], [place] [address] Oct, [facility] [address] [id number] [address] [place] [address], [place] [address] Oct, [facility] [address] [id number] [address] [place] [address], [place] [address] Oct, [facility] [address] [id number] [address] [place] [address], [place] [address] Oct, [facility] [address] [id number] [address] [place] [address] [place] [address] Sep, [facility] [address] [id number] [address] [place] [address], [place] [address] Sep, [facility] [address] [id number] [address] [place] [address], [place] [address] Sep, [facility] [address] [id number] [address] [place] [address], [place] [address] Sep, [facility] [address] [id number] [address] [place] [address], [place] [address] Aug, [facility] [address] [id number] [address] [place] [address], [place] [address] Aug, [facility] [address] [id number] [address] [place] [address], [place] [address] Aug, [facility] [address] [id number] [address] [place] [address], [place] [address] Aug, [facility] [address] [id number] [address] [place] [address], [place] [address] Jul, [facility] [address] [id number] [address] [place] [address], [place] [address] Jun, [facility] [address] [id number] [address] [place] [address], [place] [address] Jun, [facility] [address] [id number] [address] [place] [address], [place] [address] Jun, [facility] [address] [id number] [address] [place] [address], [place] [address] Jun, [facility] [address] [id number] [address] [place] [address], [place] [address] Jun, [facility] [address] [id number] [address] [place] [address], [place] [address] May, [facility] [address] [id number] [address] [place] [address], [place] [address] Apr, [facility] [address] [id number] [address] [place] [address], [place] [address] Apr, [facility] [address] [id number] [address] [place] [address], [place] [address] March, [facility] [address] [id number] [address] [place] [address], [place] [address] March, [facility] [address] [id number] [address] [place] [address], [place] [address] March, [facility] [address] [id number] [address] [place] [address], [place] [address] March, [facility] [address] [id number] [address] [place] [address], [place] [address] March, [facility] [address] [id number] [address] [place] [address], [place] [address] Feb, [facility] [address] [id number] [address] [place] [address], [place] [address] Feb, [facility] [address] [id number] [address] [place] [address], [place] [address] Jan, [facility] [address] [id number] [address] [place] [address], [place] [address] 25 Jan, 2013 [facility] [address] [id number] [address] [place] [address], [place] [address] Jan, [facility] [address] [id number] [address] [place] [address], [place] [address] 15 Jan, 2013 [facility] [address] [id number] [address] [place] [address], [place] [address] 15 Jan, 2013 [facility] [address] [id number] [address] [place] [address], [place] [address] 14 Jan, 2013 [facility] [address] [id number] [address] [place] [address], [place] [address] 14 Jan, 2013 [facility] [address] [id number] [address] [place] [address], [place] [address] Jan, [facility] [address] [id number] [address] [place] [address] Dec, [facility] [address] [id number] [address] [place] [address] Dec, [facility] [address] [id number] [address] [place] [address] Dec, [facility] [address] [id number] [address] [place] [address] Dec, [facility] [address] [id number] [address] [place] [address] Dec, [facility] [address] [id number] [address] [place] [address] Dec, [facility] [address] [id number] [address] [place] [address] Dec, [facility] [address] [id number] [address] [place] [address] Dec, [facility] [address] [id number] [address] [place] [address] Nov, [facility] [address] [id number] [address] [place] [address] Nov, [facility] [address] [facility] [id number] [address] [place] [address] Nov, [facility] [address] [id number] [address] [place] [address] Nov, IMMUNIZATIONS No Known Immunizations SOCIAL HISTORY Never Assessed REASON FOR VISIT Diarrhea since 04/10, last evening had an episode of diarrhea, got up, nausea, c old sweats, and fell causing a left arm skin tear and a left black eye. BABITA Villanueva PLAN OF CARE Activity Details Follow Up 3 Months, prn Reason:chm VITAL SIGNS Height 64 in 2018-05-05 Weight 98.6 lbs 2018-05-05 Temperature 98.3 degrees Fahrenheit 2018-05-05 Heart Rate 91 bpm 2018-05-05 Respiratory Rate 20 2018-05-05 BMI 16.92 kg/m2 2018-05-05 Blood pressure systolic 110 mmHg 2018-05-05 Blood pressure diastolic 74 mmHg 2018-05-05 MEDICATIONS Medication Instructions Dosage Frequency Start Date End Date Duration S pablo Tramadol HCl 50 mg Orally every 6 hrs 1 tablet as needed 6h 5 May, 2018 14 days Active Fluoxetine HCl 20 mg Orally once daily 1 capsule 24h 30 days Active Vitamin D 1000 UNIT Orally 2 times a day 1 tablet 12h 18 Oct 90 days Active Calcium 600 mg Orally Twice [...] PROCEDURES Procedure Date Ordered Result Body Site EKG, TRACING (IN-HOUSE) 2018-05-05 N/A LAB NOT BILLED [facility] May 05, 2018 [facility] VISIT ESTABLISHED PATIENT May 05, 2018 ELECTROCARDIOGRAM, TRACING May 05, 2018 INSTRUCTIONS MEDICATIONS ADMINISTERED No Known Medications [...]
--- OUTSIDE RECORDS SUMMARY | 2020-02-19 13:38 | XMS REPORT ---
Author Author Sherly EATON Organization [facility] Address [address] [place] [address] Care Team Providers Care Director Of Online Education Name Role Phone UMA JOLANTA Unavailable PROBLEMS Type Condition ICD9-CM Code FRO90-KH Code Onset Dates Condition S tatus SNOMED Code Problem Hypercholesteremia E78.00 Active 1 0410216 Problem History of hypertension Z86.79 Active 005461763 Problem History of spinal fusion for scoliosis Z98.1 Active 220874925 Problem Depression F32.9 Active 72140139 Problem Hyponatremia E87.1 Active 9189037 8 Problem Vitamin D deficiency E55.9 Active 25384055 Problem Anxiety F41.9 Active [id number] ALLERGIES No Information ENCOUNTERS Encounter Location Date Diagnosis [place] [id number] [address] Jul, [place] [address] [address] May, Hyponatremia E87.1 [place] [address] [address] May, [place] [address] [address] Apr, Vasovagal syncope R55 ; Diar jose of presumed infectious origin R19.7 ; Black eye of left side, initial encounter S00.12XA ; Skin tear of left forearm without complication, initial encounter S51.812A ; Dehydration E86.0 ; Vitamin D deficiency E55.9 and Weight loss R63.4 [place] [address] [place] [id number] [address] [place] [address] Apr, Vitamin D deficiency E55.9 ; History of spinal fusion for scoliosis Z98.1 ; Anxiety F41.9 and Depression F32.9 [place] [address] [address] Jan, Essential hypertension I10 ; Depression F32.9 ; Anxiety F41.9 ; History of hypertension Z86.79 ; History of anemia Z86.2 and Hyponatremia E87.1 [facility] [address] [address] Dec, Hyponatremia E87.1 [facility] [address] [address] Dec, Fever, unspecified fever cau se R50.9 and Acute nasopharyngitis J00 [place] [address] [address] Nov, Hyponatremia E87.1 [place] [address] [address] Oct, Essential hypertension I10 ; Long-term use of high-risk medication Z79.899 and Vitamin D deficiency E55.9 [place] [address] [address] Oct, Essential hypertension I10 ; Depression F32.9 ; Anxiety F41.9 ; Long-term use of high-risk medication Z79.899 and Vitamin D deficiency E55.9 [place] [address] [address] Jun, History of spinal fusion for scoliosis Z98.1 ; Postoperative anemia D64.9 ; Essential hypertension I10 ; Depression F32.9 and Anxiety F41.9 [place] [address] [address] Jun, History of spinal fusion for scoliosis Z98.1 ; Postoperative anemia D64.9 ; Essential hypertension I10 ; Depression F32.9 and Anxiety F41.9 [place] [address] [address] May, History of spinal fusion for scoliosis Z98.1 ; Postoperative anemia D64.9 ; Essential hypertension I10 ; Depression F32.9 and Anxiety F41.9 [facility] [address] [facility] [id number] [address] [place] [address] May, [facility] [address] [facility] [id number] [address] [place] [address] Apr, Dysuria R30.0 and Acute cyst itis with hematuria N30.01 [facility] [address] [id number] [address] [place] [address] Apr, [facility] [address] [facility] [id number] [address] [place] [address] Apr, [facility] [address] [facility] [id number] [address] [place] [address] Apr, [facility] [address] [facility] [id number] [address] [place] [address] Apr, Anxiety F41.9 [facility] [address] [facility] [id number] [address] [place] [address] Feb, Anxiety F41.9 [facility] [address] [facility] [id number] [address] [place] [address] Jan, [facility] [address] [facility] [id number] [address] [place] [address] Jan, Severe scoliosis M41.9 [facility] [address] [facility] [id number] [address] [place] [address] Jan, [facility] [address] [facility] [id number] [address] [place] [address] Jan, Tremor of unknown origin R25 .1 ; Headache, unspecified headache type R51 ; Balance problem R26.89 ; Degenerative scoliosis M41.9 ; Pain in right hip M25.551 and Pain in left hip M25.552 [facility] [address] [facility] [id number] [address] [place] [address] 14 Jan, 2017 Tremor of unknown origin R25 .1 ; Headache, unspecified headache type R51 ; Balance problem R26.89 ; Degenerative scoliosis M41.9 ; Pain in right hip M25.551 and Pain in left hip M25.552 [facility] [address] [address] 10 Jan, 2017 [place] [address] [address] Oct, Essential hypertension I10 ; Vitamin D deficiency E55.9 ; Depression F32.9 ; Anxiety F41.9 ; Lumbar pain M54.5 and Screening for colon cancer Z12.11 [place] [address] [address] Aug, [place] [address] [address] Dec, [place] [address] [address] Dec, Hammertoe M20.40 [place] [address] [address] Oct, [place] [address] [address] Oct, Essential hypertension I10 ; Vitamin D deficiency E55.9 ; Depression F32.9 ; Anxiety F41.9 ; Lumbar pain M54.5 and Hammer toe of left foot M20.42 [place] [id number] [address] [place] [address] Sep, Acute upper respiratory infe ction, unspecified J06.9 and Other viral agents as the cause of diseases classified elsewhere B97.89 [facility] [address] [place] [id number] [address] [place] [id number] Apr, Dental examination V72.2 [facility] [address] [place] [id number] [place] [id number] Apr, Dental examination V72.2 [facility] [address] [id number] [place] [id number] Apr, Dental examination V72.2 [facility] [address] [id number] [address] [place] [id number] Apr, Dental examination V72.2 [facility] [address] [id number] [address] [place] [id number] March, Dental examination V72.2 [facility] [address] [id number] [address] [place] [address], [place] [address] March, [facility] [address] [id number] [address] [place] [address] Feb, [facility] [address] [id number] [address] [place] [address] Feb, [facility] [address] [id number] [address] [place] [address] Oct, [facility] [address] [id number] [address] [place] [address] Oct, [facility] [address] [id number] [address] [place] [address] Sep, [facility] [address] [id number] [address] [place] [address] Sep, [facility] [address] [id number] [address] [place] [address] Sep, [facility] [address] [id number] [address] [place] [address] Sep, [facility] [address] [id number] [address] [place] [address] Aug, [facility] [address] [id number] [address] [place] [address] Aug, [facility] [address] [id number] [address] [place] [address] Jul, [facility] [address] [id number] [address] [place] [address], [place] [address] Jul, [facility] [address] [id number] [address] [place] [address], [place] [address] Jun, [facility] [address] [id number] [address] [place] [address], [place] [address] Jun, [facility] [address] [id number] [address] [place] [address], [place] [address] May, [facility] [address] [id number] [address] [place] [address], [place] [address] May, [facility] [address] [id number] [address] [place] [address], [place] [address] May, [facility] [address] [id number] [address] [place] [address], [place] [address] May, [facility] [address] [id number] [address] [place] [address], [place] [address] May, [facility] [address] [id number] [address] [place] [address], [place] [address] May, [facility] [address] [id number] [address] [place] [address], [place] [address] Apr, [facility] [address] [id number] [address] [place] [address], [place] [address] Apr, [facility] [address] [id number] [address] [place] [address], [place] [address] March, [facility] [address] [id number] [address] [place] [address], [place] [address] March, [facility] [address] [id number] [address] [place] [address], [place] [address] March, [facility] [address] [id number] [address] [place] [address], [place] [address] March, [facility] [address] [id number] [address] [place] [id number] 06 Jan, 2014 [facility] [address] [id number] [address] [place] [address], [place] [address] Jan, [facility] [address] [id number] [address] [place] [address], [place] [address] 07 Dec, 2013 [facility] [address] [id number] [address] [place] [address], [place] [address] Dec, [facility] [address] [id number] [address] [place] [address], [place] [address] Nov, [facility] [address] [id number] [address] [place] [address], [place] [address] Nov, [facility] [address] [id number] [address] [place] [address], [place] [address] Nov, [facility] [address] [id number] [address] [place] [address], [place] [address] Nov, [facility] [address] [id number] [address] [place] [address], [place] [address] Nov, [facility] [address] [id number] [address] [place] [address], [place] [address] Nov, [facility] [address] [id number] [address] [place] [address], [place] [address] Oct, [facility] [address] [id number] [address] [place] [address], [place] [address] Oct, [facility] [address] [id number] [address] [place] [address], [place] [address] Oct, [facility] [address] [id number] [address] [place] [address], [place] [address] Oct, [facility] [address] [id number] [address] [place] [address], [place] [address] Sep, [facility] [address] [id number] [address] [place] [address], [place] [address] Sep, [facility] [address] [id number] [address] [place] [address], [place] [address] Sep, [facility] [address] [id number] [address] [place] [address], [place] [address] Sep, [facility] [address] [id number] [address] [place] [address], [place] [address] Aug, [facility] [address] [id number] [address] [place] [address], [place] [address] Aug, [facility] [address] [id number] [address] [place] [address], [place] [address] Aug, [facility] [address] [id number] [address] [place] [address], [place] [address] Aug, [facility] [address] [id number] [address] [place] [address], [place] [address] Jul, [facility] [address] [id number] [address] [place] [address], [place] [address] Jun, [facility] [address] [id number] [address] [place] [address], [place] [address] Jun, [facility] [address] [id number] [address] [place] [address], [place] [address] Jun, [facility] [address] [id number] [address] [place] [address], [place] [address] Jun, [facility] [address] [id number] [address] [place] [address], [place] [address] Jun, [facility] [address] [id number] [address] [place] [address], [place] [address] May, [facility] [address] [id number] [address] [place] [address], [place] [address] Apr, [facility] [address] [id number] [address] [place] [address], [place] [address] Apr, [facility] [address] [id number] [address] [place] [address], [place] [address] March, [facility] [address] [id number] [facility] [place] [address] March, [facility] [address] [id number] [address] [place] [address], [place] [address] March, [facility] [address] [id number] [address] [place] [address], [place] [address] March, [facility] [address] [id number] [address] [place] [address], [place] [address] March, [facility] [address] [id number] [address] [place] [address], [place] [address] Feb, [facility] [address] [id number] [address] [place] [address], [place] [address] Feb, [facility] [address] [id number] [address] [place] [address], [place] [address] Jan, [facility] [address] [id number] [address] [place] [address], [place] [address] Jan, [facility] [address] [id number] [address] [place] [address], [place] [address] Jan, [facility] [address] [id number] [address] [place] [address], [place] [address] Jan, [facility] [address] [id number] [address] [place] [address], [place] [address] 15 Jan, 2013 [facility] [address] [id number] [address] [place] [address], [place] [address] 14 Jan, 2013 [facility] [address] [id number] [address] [place] [address], [place] [address] 14 Jan, 2013 [facility] [address] [id number] [address] [place] [address], [place] [address] 13 Jan, 2013 [facility] [address] [id number] [address] [place] [address], [place] [address] 26 Dec, 2012 [facility] [address] [id number] [address] [place] [address] 18 Dec, 2012 [facility] [address] [id number] [address] [place] [address] 15 Dec, 2012 [facility] [address] [id number] [address] [place] [address] 15 Dec, 2012 [facility] [address] [id number] [address] [place] [address] 14 Dec, 2012 [facility] [address] [id number] [address] [place] [address] 13 Dec, 2012 [facility] [address] [id number] [address] [place] [address] 12 Dec, 2012 [facility] [address] [id number] [address] [place] [address] 05 Dec, 2012 [facility] [address] [id number] [address] [place] [address] Nov, [facility] [address] [id number] [address] [place] [address] Nov, [facility] [address] [id number] [address] [place] [address] Nov, [facility] [address] [id number] [address] [place] [address] Nov, IMMUNIZATIONS No Known Immunizations SOCIAL HISTORY Never Assessed REASON FOR VISIT Requests return call PLAN OF CARE VITAL SIGNS MEDICATIONS Unknown [...]
--- OUTSIDE RECORDS SUMMARY | 2020-02-19 13:38 | XMS REPORT ---
Author Author Sherly SOTOMAYOR Organization [facility] [place] Address [address] [place] [address] Care Team Providers Care Machine Design Checker Name Role Phone ESTELLA SOTOMAYOR Unavailable PROBLEMS Type Condition ICD9-CM Code LOX62-GF Code Onset Dates Condition S tatus SNOMED Code Problem Hypercholesteremia E78.00 Active 1 0208940 Problem History of hypertension Z86.79 Active 522108187 Problem History of spinal fusion for scoliosis Z98.1 Active 144323625 Problem Depression F32.9 Active 31815841 Problem Hyponatremia E87.1 Active 9056225 8 Problem Vitamin D deficiency E55.9 Active 89520985 Problem Anxiety F41.9 Active 29284583 ALLERGIES No Information ENCOUNTERS Encounter Location Date Diagnosis [place] [address] [place] [id number] [address] [place] [address] May, Hyponatremia E87.1 [place] [address] [address] May, [place] [address] [address] Apr, Vasovagal syncope R55 ; Diar jose of presumed infectious origin R19.7 ; Black eye of left side, initial encounter S00.12XA ; Skin tear of left forearm without complication, initial encounter S51.812A ; Dehydration E86.0 ; Vitamin D deficiency E55.9 and Weight loss R63.4 [place] [address] [place] [id number] [address] [place] [address] Apr, Vitamin D deficiency E55.9 ; History of spinal fusion for scoliosis Z98.1 ; Anxiety F41.9 and Depression F32.9 [place] [address] [place] [id number] [address] [place] [address] Jan, Essential hypertension I10 ; Depression F32.9 ; Anxiety F41.9 ; History of hypertension Z86.79 ; History of anemia Z86.2 and Hyponatremia E87.1 [facility] [place] [address] [facility] [id number] [address] [place] [address] Dec, Hyponatremia E87.1 [facility] [address] [facility] [id number] [address] [place] [address] Dec, Fever, unspecified fever cau se R50.9 and Acute nasopharyngitis J00 [facility] [place] [address] [facility] [id number] [address] [place] [address] Nov, Hyponatremia E87.1 [facility] [place] [address] [place] [id number] [address] [place] [phone] Oct, Essential hypertension I10 ; Long-term use of high-risk medication Z79.899 and Vitamin D deficiency E55.9 [place] [id number] [place] [id number] [address] [place] [address] Oct, Essential hypertension I10 ; Depression F32.9 ; Anxiety F41.9 ; Long-term use of high-risk medication Z79.899 and Vitamin D deficiency E55.9 [facility] [place] [address] [place] [id number] [address] [place] [address] Jun, History of spinal fusion for scoliosis Z98.1 ; Postoperative anemia D64.9 ; Essential hypertension I10 ; Depression F32.9 and Anxiety F41.9 [facility] [place] [address] [place] [id number] [address] [place] [address] Jun, History of spinal fusion for scoliosis Z98.1 ; Postoperative anemia D64.9 ; Essential hypertension I10 ; Depression F32.9 and Anxiety F41.9 [place] [address] [facility] [id number] [address] [place] [address] May, History of spinal fusion for scoliosis Z98.1 ; Postoperative anemia D64.9 ; Essential hypertension I10 ; Depression F32.9 and Anxiety F41.9 [facility] [place] [address] [id number] [address] [place] [address] May, [facility] [address] [id number] [address] [place] [address] Apr, Dysuria R30.0 and Acute cyst itis with hematuria N30.01 [facility] [place] [address] [id number] [address] [place] [address] Apr, [facility] [place] [address] [id number] [address] [place] [phone] Apr, [facility] [place] [address] [id number] [address] [place] [address] Apr, [facility] [place] [address] [facility] [id number] [address] [place] [address] Apr, Anxiety F41.9 [facility] [place] [address] [id number] [address] [place] [address] Feb, Anxiety F41.9 [facility] [place] [address] [id number] [address] [place] [address] Jan, [facility] [place] [address] [facility] [id number] [address] [place] [phone] Jan, Severe scoliosis M41.9 [facility] [place] [address] [id number] [address] [place] [address] Jan, [facility] [place] [address] [facility] [id number] [address] [place] [address] Jan, Tremor of unknown origin R25 .1 ; Headache, unspecified headache type R51 ; Balance problem R26.89 ; Degenerative scoliosis M41.9 ; Pain in right hip M25.551 and Pain in left hip M25.552 [facility] [place] [address] [id number] [address] [place] [address] Jan, Tremor of unknown origin R25 .1 ; Headache, unspecified headache type R51 ; Balance problem R26.89 ; Degenerative scoliosis M41.9 ; Pain in right hip M25.551 and Pain in left hip M25.552 [place] [address] [address] Jan, [place] [address] [place] [id number] [place] [address] Oct, Essential hypertension I10 ; Vitamin D deficiency E55.9 ; Depression F32.9 ; Anxiety F41.9 ; Lumbar pain M54.5 and Screening for colon cancer Z12.11 [place] [address] [address] Aug, [place] [id number] [place] [address] Dec, [address] [address] Dec, [place]ert[place] M20.[address] [address] Oct, [address] [address] Oct, Essential hypertension I10 ; Vitamin D deficiency E55.9 ; Depression F32.9 ; Anxiety F41.9 ; Lumbar pain M54.5 and Hammer toe of left foot M20.[address] [address] Sep, Acute upper respiratory infe ction, unspecified J06.9 and Other viral agents as the cause of diseases classified elsewhere B97.89 [facility] [address] [id number] Apr, Dental examination V72.2 [facility] [address] [place] [id number] [place] [id number] Apr, Dental examination V72.2 [facility] [address] [id number] Apr, Dental examination V72.2 [facility] [address] [id number] [address] [place] [id number] Apr, Dental examination V72.2 [facility] [address] [id number] [address] [place] [id number] March, Dental examination V72.2 [facility] [address] [id number] [address] [place] [address] March, [facility] [address] [id number] [address] [place] [address], [place] [address] Feb, [facility] [address] [id number] [address] [place] [address] Feb, [facility] [address] [id number] [address] [place] [phone] Oct, [facility] [address] [id number] [address] [place] [address] Oct, [facility] [address] [id number] [address] [place] [phone] Sep, [facility] [address] [id number] [address] [place] [address] Sep, [facility] [address] [id number] [address] [place] [phone] Sep, [facility] [address] [id number] [address] [place] [address] Sep, [facility] [address] [id number] [address] [place] [phone] Aug, [facility] [address] [id number] [address] [place] [address], [place] [address] Aug, [facility] [address] [id number] [address] [place] [address] Jul, [facility] [address] [id number] [address] [place] [address] Jul, [facility] [address] [id number] [facility] [place] [address] Jun, [facility] [address] [id number] [address] [place] [address], [place] [address] Jun, [facility] [address] [id number] [address] [place] [address], [place] [address] May, [facility] [address] [id number] [address] [place] [address], [place] [address] May, [facility] [address] [id number] [address] [place] [address], [place] [address] May, [facility] [address] [id number] [address] [place] [address], [place] [address] May, [facility] [address] [id number] [address] [place] [address], [place] [address] May, [facility] [address] [id number] [address] [place] [address], [place] [address] May, [facility] [address] [id number] [address] [place] [address], [place] [address] Apr, [facility] [address] [id number] [address] [place] [address], [place] [address] Apr, [facility] [address] [id number] [address] [place] [address], [place] [address] March, [facility] [address] [id number] [address] [place] [address], [place] [address] March, [facility] [address] [id number] [address] [place] [address], [place] [address] March, [facility] [address] [id number] [address] [place] [address], [place] [address] March, [facility] [address] [id number] [address] [place] [address], [place] [address] Jan, [facility] [address] [id number] [address] [place] [address], [place] [address] 06 Jan, 2014 [facility] [address] [id number] [address] [place] [address], [place] [address] 07 Dec, 2013 [facility] [address] [id number] [address] [place] [address], [place] [address] 07 Dec, 2013 [facility] [address] [id number] [address] [place] [address], [place] [address] Nov, [facility] [address] [id number] [address] [place] [address], [place] [address] Nov, [facility] [address] [id number] [address] [place] [address], [place] [address] Nov, [facility] [address] [id number] [address] [place] [address], [place] [address] Nov, [facility] [address] [id number] [address] [place] [address], [place] [address] Nov, [facility] [address] [id number] [address] [place] [address], [place] [address] Nov, [facility] [address] [id number] [address] [place] [address], [place] [address] Oct, [facility] [address] [id number] [address] [place] [address], [place] [address] Oct, [facility] [address] [id number] [address] [place] [address], [place] [address] Oct, [facility] [address] [id number] [address] [place] [address], [place] [address] Oct, [facility] [address] [id number] [address] [place] [address], [place] [address] Sep, [facility] [address] [id number] [address] [place] [address], [place] [address] Sep, [facility] [address] [id number] [address] [place] [address], [place] [address] Sep, [facility] [address] [id number] [address] [place] [address], [place] [address] Sep, [facility] [address] [id number] [address] [place] [address], [place] [address] Aug, [facility] [address] [id number] [address] [place] [address], [place] [address] Aug, [facility] [address] [id number] [address] [place] [address], [place] [address] Aug, [facility] [address] [id number] [address] [place] [address], [place] [address] Aug, [facility] [address] [id number] [address] [place] [address], [place] [address] Jul, [facility] [address] [id number] [address] [place] [address], [place] [address] Jun, [facility] [address] [id number] [address] [place] [address], [place] [address] Jun, [facility] [address] [id number] [address] [place] [address], [place] [address] Jun, [facility] [address] [id number] [address] [place] [address], [place] [address] Jun, [facility] [address] [id number] [address] [place] [address], [place] [address] Jun, [facility] [address] [id number] [address] [place] [address], [place] [address] May, [facility] [address] [id number] [address] [place] [address], [place] [address] Apr, [facility] [address] [id number] [address] [place] [address], [place] [address] Apr, [facility] [address] [id number] [address] [place] [address], [place] [address] March, [facility] [address] [id number] [address] [place] [address], [place] [address] March, [facility] [address] [id number] [address] [place] [address], [place] [address] March, [facility] [address] [id number] [address] [place] [address], [place] [address] March, [facility] [address] [id number] [address] [place] [address], [place] [address] March, [facility] [address] [id number] [address] [place] [address], [place] [address] Feb, [facility] [address] [id number] [address] [place] [address], [place] [address] Feb, [facility] [address] [id number] [address] [place] [address], [place] [address] Jan, [facility] [address] [id number] [address] [place] [address], [place] [address] Jan, [facility] [address] [id number] [address] [place] [address], [place] [address] Jan, [facility] [address] [id number] [address] [place] [address], [place] [address] Jan, [facility] [address] [id number] [address] [place] [address], [place] [address] 15 Jan, 2013 [facility] [address] [id number] [address] [place] [address], [place] [address] Jan, [facility] [address] [id number] [address] [place] [address], [place] [address] 14 Jan, 2013 [facility] [address] [id number] [address] [place] [address], [place] [address] Jan, [facility] [address] [id number] [address] [place] [address], [place] [address] 26 Dec, 2012 [facility] [address] [id number] [address] [place] [address], [place] [address] 18 Dec, 2012 [facility] [address] [id number] [address] [place] [address] 15 Dec, 2012 [facility] [place] [address] [id number] [address] [place] [address] 15 Dec, 2012 [facility] [place] [address] [id number] [address] [place] [address] 14 Dec, 2012 [facility] [place] [address] [id number] [address] [place] [address] Dec, [facility] [place] [address] [id number] [address] [place] [address] 12 Dec, 2012 [facility] [place] [address] [facility] [id number] [address] [place] [address] 05 Dec, 2012 [facility] [place] [address] [facility] [id number] [address] [place] [address] Nov, [facility] [place] [address] [facility] [id number] [address] [place] [address] Nov, [facility] [place] [address] [id number] [address] [place] [address] Nov, [facility] [place] [address] [facility] [id number] [address] [place] [address] Nov, IMMUNIZATIONS No Known Immunizations SOCIAL HISTORY Never Assessed REASON FOR VISIT defer bnp PLAN OF CARE VITAL SIGNS MEDICATIONS Unknown [...]
--- OUTSIDE RECORDS SUMMARY | 2020-02-19 13:38 | XMS REPORT | Continuity of Care Document ---
Author Author [facility] Organization [facility] Address [address] [place] [address] Phone Care Team Providers Care Tabulating Machine Mechanic Name Role Phone Piter Vinson PCP Piter Vinson Attphys Allergies, Adverse Reactions, Alerts No known allergies. Medications Medication Status Dose Units Route Sig Qty Days Start Date End Date Instructions Calcium Carbonate/Vitamin D3 Active 1 TAB Oral Daily November 23, 2018 7:58am Multivit With Calcium,Iron,Min Active 1 TAB Oral Daily November 23, 2018 7 :58am [place]-3/Dha/Epa/Fish Oil Active 2 EACH Oral Daily November [...] Milan MD completed [facility] at [address] [address] Mammography Report Signed Patient: Sherly Do MR#: [id number] : 1955 887 Age/Sex: 63 / F [...] BI w/praneeth Reason for Exam(s): mammo screening #[id number] - MM SCREENING TREVIN BI W/PRANEETH BILATERAL DIGITAL SCREENING MAMMOGRAM 3D/2D WITH CAD: 12/01/2018 CLINICAL: Z12.31-Encounter for screening mammogram. Digital Breast Tomosynthesis was performed. Current study was also evaluated with a Computer Aided Detection (CAD) system. Comparison is made to exams dated: 07/26/2016 mammogram - [facility], 06/08/2015 mammogram, 05/31/2015 mammogram, [facility] The tissue of both breasts is extremely dense, which lowers the sensitivity of mammography. No significant masses, calcifications, or other findings are seen in either breast. IMPRESSION: NEGATIVE There is no mammographic evidence of malignancy. A 1 year screening mammogram is recommended. The patient was notified of the results. Dr[facility]/:12/01/2018 15:29:52 Patent Counsel: Seema Trivedi RT(R)(M), [facility] letter sent: Normal/Benign Category 1/2 BI-RADS: 1 Negative Health Concerns Health Concerns may be documented in an alternate section. Chief Complaint and Reason for Visit Chief Complaint screening mammo Encounters Encounter Location(s) [facility]/Admit Date Discharge/Depart Date Provider(s) Departed [facility] December 01, 2018 2:50pm December 012018 2:51pm [facility] 7:42am December 162019 7:43am [...] Guarantor Sherly Do Address [address] [address] Contact Info. Home Phone: Payer Policy Id Coverage Id Subscriber's Name Subscriber Id Effective Date Expiration Date [facility] [id number] Self Pay Self N/A [facility] [id number] Social History Smoking Status Status Date of [...]
--- OUTSIDE RECORDS SUMMARY | 2020-02-19 13:38 | XMS REPORT | Continuity of Care Document ---
Author Author [facility] Address [address] [place] [address] Care Team Providers Care Strategic Buyer Name Role Phone JhonPiter feldman Hakeem PCP Elie Vidal Attphys Allergies, Adverse Reactions, Alerts No known allergies. Medications Active Medications Medication Dose Units Route Sig Start Date Status Calcium Carbonate/Vitamin D3 [Calcium 1,000 + D3 Caplet] 1 T AB PO Daily November 23, 2018 Active Multivit With Calcium,Iron,Min [Multiple Vitamins For Women] 1 TAB PO Daily November 23, 2018 Active [place]-3/Dha/Epa/Fish Oil [Fish Oil 1,000 Mg Softgel] 2 [...] 11/23/2018 0 9:07 During Business Hours Call [phone] 11/23/19 19 09:07 After Business Hours Call [phone] (hospital) 11/23/2018 09:07 Pending Lab/Results No Pending Lab 11/23/2018 0 9:07 Hospital Discharge Medications Medication Dose Units Route Sig Qty Days Order Date Status In structions Calcium Carbonate/Vitamin D3 1 TAB PO Daily Ney rosario 2018 Active Multivit With Calcium,Iron,Min 1 TAB PO Daily November 23, 2018 Active [place]-3/Dha/Epa/Fish Oil 2 EACH PO Daily Laurel benja 2018 Active Pyridoxine 100 MG PO Daily November 23, 2018 Act jaelyn Encounters Encounter Facility Location Admit/Visit Date Discharge/Departure Date Attending Provider Departed [facility] November 23, 2018 7:09am November 23, 2018 9:51am Elie Vidal Functional Status No known functional status. Immunizations No known immunizations. Payers Payer Name Policy Type Covered Democrat Covered Democrat Id Relationship Sub scriber Subscriber Id [employer] Commercial [id number] Self Pay Personal Payment ([place] - No Insurance) [facility] Commercial [id number] Plan of Care Instructions [facility] [...]
--- OUTSIDE RECORDS SUMMARY | 2020-02-19 13:39 | XMS REPORT ---
Author Author Sherly SOTOMAYOR [facility] Address [address] [place] [address] Care Team Providers Care [place] Reporter Name Role Phone ESTELLA SOTOMAYOR Unavailable PROBLEMS Type Condition ICD9-CM Code [id number] Code Onset Dates Condition S tatus SNOMED Code Problem Essential hypertension I10 Active 53547537 Problem Depression F32.9 Active 56233113 Problem Vitamin D deficiency E55.9 Active 41947792 Problem Severe scoliosis M41.9 Active 298 657279 Problem Lumbar pain M54.5 Active 42875918 7 Problem Postoperative anemia D64.9 Active 006847799 Problem History of spinal fusion for scoliosis Z98.1 Active 124280153 Problem Tremor of unknown origin R25.1 Activ e 38321034 Problem Anxiety F41.9 Active 70833453 Problem Headache, unspecified headache type R51 Active 93759446 Problem Balance problem R26.89 Active 3876 50255 ALLERGIES No Information SOCIAL HISTORY Never Assessed PLAN OF CARE VITAL SIGNS MEDICATIONS Medication Instructions Dosage Frequency Start Date End Date Duration S tatus Lorazepam 0.5 MG Orally Once a day 1 tablet as needed 24h prn Active RESULTS No Results PROCEDURES No Known [...]
--- OUTSIDE RECORDS SUMMARY | 2020-02-19 13:39 | XMS REPORT ---
Author Author Sherly SOTOMAYOR Organization [facility] [place] Address [address] [place] [address] Care Team Providers Care Child Care Team Lead Name Role Phone ESTELLA SOTOMAYOR Unavailable PROBLEMS Type Condition ICD9-CM Code ZGP17-BY Code Onset Dates Condition S tatus SNOMED Code Problem History of hypertension Z86.79 Active 743172463 Problem History of spinal fusion for scoliosis Z98.1 Active 316925762 Problem Vitamin D deficiency E55.9 Active 66050312 Problem Anxiety F41.9 Active 29647901 Problem Depression F32.9 Active 10897466 ALLERGIES No Information ENCOUNTERS Encounter Location Date Diagnosis [facility] [place] [address] [address] Apr, [facility] [place] [address] [address] Jan, Essential hypertension I10 ; Depression F32.9 ; Anxiety F41.9 ; History of hypertension Z86.79 ; History of anemia Z86.2 and Hyponatremia E87.1 [facility] [place] [address] [place] [id number] [address] [place] [address] Dec, Hyponatremia E87.1 [facility] [address] [id number] [address] [place] [address] Dec, Fever, unspecified fever cau se R50.9 and Acute nasopharyngitis J00 [facility] [place] [address] [address] Nov, Hyponatremia E87.1 [facility] [place] [address] [id number] [address] [place] [address] Oct, Essential hypertension I10 ; Long-term use of high-risk medication Z79.899 and Vitamin D deficiency E55.9 [facility] [place] [address] [facility] [id number] [address] [place] [address] Oct, Essential hypertension I10 ; Depression F32.9 ; Anxiety F41.9 ; Long-term use of high-risk medication Z79.899 and Vitamin D deficiency E55.9 [facility] [place] [address] [facility] [id number] [address] [place] [address] Jun, History of spinal fusion for scoliosis Z98.1 ; Postoperative anemia D64.9 ; Essential hypertension I10 ; Depression F32.9 and Anxiety F41.9 [place] [address] [facility] [id number] [address] [place] [address] Jun, History of spinal fusion for scoliosis Z98.1 ; Postoperative anemia D64.9 ; Essential hypertension I10 ; Depression F32.9 and Anxiety F41.9 [place] [address] [facility] [id number] [address] [place] [address] May, History of spinal fusion for scoliosis Z98.1 ; Postoperative anemia D64.9 ; Essential hypertension I10 ; Depression F32.9 and Anxiety F41.9 [place] [address] [facility] [id number] [address] [place] [phone] May, [facility] [address] [facility] [id number] [address] [place] [phone] Apr, Dysuria R30.0 and Acute cyst itis with hematuria N30.01 [facility] [place] [address] [facility] [id number] [address] [place] [address] Apr, [facility] [place] [address] [id number] [address] [place] [address] Apr, [facility] [place] [address] [facility] [id number] [address] [place] [address] Apr, [facility] [place] [address] [facility] [id number] [address] [place] [address] Apr, Anxiety F41.9 [place] [address] [facility] [id number] [address] [place] [address] Feb, Anxiety F41.9 [place] [address] [facility] [id number] [address] [place] [phone] Jan, [place] [address] [facility] [id number] [address] [place] [address] Jan, Severe scoliosis M41.9 [place] [address] [facility] [id number] [address] [place] [phone] 17 Jan, 2017 [place] [address] [facility] [id number] [address] [place] [address] 15 Jan, 2017 Tremor of unknown origin R25 .1 ; Headache, unspecified headache type R51 ; Balance problem R26.89 ; Degenerative scoliosis M41.9 ; Pain in right hip M25.551 and Pain in left hip M25.552 [place] [address] [facility] [id number] [address] [place] [phone] 14 Jan, 2017 Tremor of unknown origin R25 .1 ; Headache, unspecified headache type R51 ; Balance problem R26.89 ; Degenerative scoliosis M41.9 ; Pain in right hip M25.551 and Pain in left hip M25.552 [place] [address] [facility] [id number] [address] [place] [phone] Jan, [place] [address] [place] [id number] [address] [place] [address] Oct, Essential hypertension I10 ; Vitamin D deficiency E55.9 ; Depression F32.9 ; Anxiety F41.9 ; Lumbar pain M54.5 and Screening for colon cancer Z12.11 [place] [address] [facility] [id number] [address] [place] [phone] Aug, [place] [address] [facility] [id number] [address] [place] [address] Dec, [place] [address] [place] [id number] [address] [place] [address] Dec, Hammertoe M20.40 [facility] [place] [address] [facility] [id number] [address] [place] [phone] Oct, [facility] [place] [address] [facility] [id number] [address] [place] [phone] Oct, Essential hypertension I10 ; Vitamin D deficiency E55.9 ; Depression F32.9 ; Anxiety F41.9 ; Lumbar pain M54.5 and Hammer toe of left foot M20.42 [facility] [place] [address] [facility] [id number] [address] [place] [phone] Sep, Acute upper respiratory infe ction, unspecified J06.9 and Other viral agents as the cause of diseases classified elsewhere B97.89 [facility] [address] [id number] [address] [place] [id number] Apr, Dental examination V72.2 [facility] [address] [id number] [place] [address] [id number] Apr, Dental examination V72.2 [facility] [address] [id number] [address] [place] [id number] Apr, Dental examination V72.2 [facility] [address] [id number] [place] [id number] Apr, Dental examination V72.2 [facility] [address] [id number] [address] [place] [address] [id number] March, Dental examination V72.2 [facility] [place] [address] [id number] [address] [place] [phone] March, [facility] [place] [address] [id number] [address] [place] [phone] Feb, [facility] [place] [address] [facility] [id number] [address] [place] [phone] Feb, [facility] [place] [address] [facility] [id number] [address] [place] [phone] Oct, [facility] [address] [id number] [address] [place] [address], [place] [address] Oct, [facility] [address] [id number] [address] [place] [address], [place] [address] Sep, [facility] [address] [id number] [address] [place] [address], [place] [address] Sep, [facility] [address] [id number] [address] [place] [address], [place] [address] Sep, [facility] [address] [id number] [address] [place] [address], [place] [address] Sep, [facility] [address] [id number] [address] [place] [address], [place] [address] Aug, [facility] [address] [id number] [address] [place] [address], [place] [address] Aug, [facility] [address] [id number] [address] [place] [address], [place] [address] Jul, [facility] [address] [id number] [address] [place] [address], [place] [address] Jul, [facility] [address] [id number] [address] [place] [address], [place] [address] Jun, [facility] [address] [id number] [address] [place] [address], [place] [address] Jun, [facility] [address] [id number] [address] [place] [address], [place] [address] May, [facility] [address] [id number] [address] [place] [address], [place] [address] May, [facility] [address] [id number] [address] [place] [address], [place] [address] May, [facility] [address] [id number] [address] [place] [address], [place] [address] May, [facility] [address] [id number] [address] [place] [address], [place] [address] May, [facility] [address] [id number] [address] [place] [address], [place] [address] May, [facility] [address] [id number] [address] [place] [address], [place] [address] Apr, [facility] [address] [id number] [address] [place] [address], [place] [address] Apr, [facility] [address] [id number] [address] [place] [address], [place] [address] March, [facility] [address] [id number] [address] [place] [address], [place] [address] March, [facility] [address] [id number] [address] [place] [address], [place] [address] March, [facility] [address] [id number] [address] [place] [address], [place] [address] March, [facility] [address] [id number] [address] [place] [address], [place] [address] Jan, [facility] [address] [id number] [address] [place] [address], [place] [address] Jan, [facility] [address] [id number] [address] [place] [address], [place] [address] Dec, [facility] [address] [id number] [address] [place] [address], [place] [address] Dec, [facility] [address] [id number] [address] [place] [address], [place] [address] Nov, [facility] [address] [id number] [address] [place] [address], [place] [address] Nov, [facility] [address] [id number] [address] [place] [address], [place] [address] Nov, [facility] [address] [id number] [address] [place] [address], [place] [address] Nov, [facility] [address] [id number] [address] [place] [phone] Nov, [facility] [address] [id number] [address] [place] [address], [place] [address] Nov, [facility] [address] [id number] [address] [place] [phone] Oct, [facility] [address] [id number] [address] [place] [address], [place] [address] Oct, [facility] [address] [id number] [address] [place] [address], [place] [address] Oct, [facility] [address] [id number] [address] [place] [address], [place] [address] Oct, [facility] [address] [id number] [address] [place] [address], [place] [address] Sep, [facility] [address] [id number] [address] [place] [id number] Sep, [facility] [address] [id number] [address] [place] [address], [place] [address] Sep, [facility] [address] [id number] [address] [place] [address], [place] [address] Sep, [facility] [address] [id number] [address] [place] [phone] Aug, [facility] [address] [id number] [address] [place] [address], [place] [address] Aug, [facility] [address] [id number] [address] [place] [id number] Aug, [facility] [address] [id number] [address] [place] [phone] Aug, [facility] [address] [id number] [address] [place] [phone] Jul, [facility] [address] [id number] [address] [place] [phone] Jun, [facility] [address] [id number] [facility] [place] [address] Jun, [facility] [address] [id number] [address] [place] [address], [place] [address] Jun, [facility] [address] [id number] [address] [place] [address], [place] [address] Jun, [facility] [address] [id number] [address] [place] [address], [place] [address] Jun, [facility] [address] [id number] [address] [place] [address], [place] [address] May, [facility] [address] [id number] [address] [place] [address], [place] [address] Apr, [facility] [address] [id number] [address] [place] [address], [place] [address] Apr, [facility] [address] [id number] [address] [place] [address], [place] [address] March, [facility] [address] [id number] [address] [place] [address], [place] [address] March, [facility] [address] [id number] [address] [place] [address], [place] [address] March, [facility] [address] [id number] [address] [place] [address], [place] [address] March, [facility] [address] [id number] [address] [place] [address], [place] [address] March, [facility] [address] [id number] [address] [place] [address], [place] [address] Feb, [facility] [address] [id number] [address] [place] [address], [place] [address] Feb, [facility] [address] [id number] [address] [place] [address], [place] [address] Jan, [facility] [address] [id number] [address] [place] [address], [place] [address] 25 Jan, 2013 [facility] [address] [id number] [address] [place] [address], [place] [address] 21 Jan, 2013 [facility] [address] [id number] [address] [place] [address], [place] [address] 15 Jan, 2013 [facility] [address] [id number] [address] [place] [address], [place] [address] 15 Jan, 2013 [facility] [address] [id number] [address] [place] [address], [place] [address] 14 Jan, 2013 [facility] [address] [id number] [address] [place] [address], [place] [address] 14 Jan, 2013 [facility] [address] [id number] [address] [place] [address], [place] [address] 13 Jan, 2013 [facility] [address] [id number] [address] [place] [address], [place] [address] 26 Dec, 2012 [facility] [address] [id number] [address] [place] [address], [place] [address] 18 Dec, 2012 [facility] [address] [id number] [address] [place] [address], [place] [address] 15 Dec, 2012 [facility] [address] [id number] [address] [place] [address], [place] [address] 15 Dec, 2012 [facility] [address] [id number] [address] [place] [address], [place] [address] 14 Dec, 2012 [facility] [address] [id number] [address] [place] [address], [place] [address] 13 Dec, 2012 [facility] [address] [id number] [address] [place] [address], [place] [address] 12 Dec, 2012 [facility] [address] [id number] [address] [place] [address], [place] [address] 05 Dec, 2012 [facility] [address] [id number] [address] [place] [address], [place] [address] 28 Nov, 2012 [facility] [place] [address] [facility] [id number] [address] [address] Nov, [facility] [place] [address] [facility] [id number] [address] [place] [address] Nov, [facility] [place] [address] [facility] [id number] [address] [place] [id number] 10 Nov, 2012 IMMUNIZATIONS No Known Immunizations SOCIAL HISTORY Never Assessed REASON FOR VISIT Lab (walk-in) PLAN OF CARE VITAL SIGNS MEDICATIONS Unknown Medications RESULTS No Results PROCEDURES Procedure Date Ordered Result Body Site LAB NOT BILLED BY [facility] Oct 15, 2017 VENIPUNCT, ROUTINE* Oct 15, 2017 INSTRUCTIONS MEDICATIONS ADMINISTERED No Known Medications [...]
--- OUTSIDE RECORDS SUMMARY | 2020-02-19 13:39 | XMS REPORT ---
Author Author Sherly SOTOMAYOR Organization [facility] [place] Address [address] [place] [address] Care Team Providers Care Warehouse Team Member Name Role Phone ESTELLA SOTOMAYOR Unavailable PROBLEMS Type Condition ICD9-CM Code DBH62-ND Code Onset Dates Condition S tatus SNOMED Code Problem Essential hypertension I10 Active 84663491 Problem Depression F32.9 Active 73580830 Problem Vitamin D deficiency E55.9 Active 07827156 Problem Severe scoliosis M41.9 Active 298 368387 Problem Lumbar pain M54.5 Active 47992427 7 Problem Postoperative anemia D64.9 Active 057558790 Problem History of spinal fusion for scoliosis Z98.1 Active 274848029 Problem Tremor of unknown origin R25.1 Activ e 06656721 Problem Anxiety F41.9 Active 17196879 Problem Headache, unspecified headache type R51 Active 65558509 Problem Balance problem R26.89 Active [id number] ALLERGIES No Information ENCOUNTERS Encounter Location Date Diagnosis [facility] [place] [address] [facility] [id number] [address] [place] [phone] Jan, [facility] [place] [address] [place] [id number] [address] [place] [phone] Dec, Hyponatremia E87.1 [facility] [address] [place] [id number] [address] [place] [phone] Dec, Fever, unspecified fever cau se R50.9 and Acute nasopharyngitis J00 [facility] [place] [address] [place] [place] [id number] [address] [place] [phone] Nov, Hyponatremia E87.1 [facility] [place] [address] [place] [place] [id number] [address] [place] [id number] Oct, Essential hypertension I10 ; Long-term use of high-risk medication Z79.899 and Vitamin D deficiency E55.9 [facility] [place] [address] [facility] [id number] [address] [place] [phone] Oct, Essential hypertension I10 ; Depression F32.9 ; Anxiety F41.9 ; Long-term use of high-risk medication Z79.899 and Vitamin D deficiency E55.9 [facility] [place] [address] [facility] [id number] [address] [place] [id number] Jun, History of spinal fusion for scoliosis Z98.1 ; Postoperative anemia D64.9 ; Essential hypertension I10 ; Depression F32.9 and Anxiety F41.9 [place] [address] [facility] [id number] [address] [place] [phone] Jun, History of spinal fusion for scoliosis Z98.1 ; Postoperative anemia D64.9 ; Essential hypertension I10 ; Depression F32.9 and Anxiety F41.9 [place] [address] [facility] [id number] [address] [place] [phone] May, History of spinal fusion for scoliosis Z98.1 ; Postoperative anemia D64.9 ; Essential hypertension I10 ; Depression F32.9 and Anxiety F41.9 [place] [address] [facility] [id number] [address] [place] [phone] May, [facility] [address] [facility] [id number] [address] [place] [id number] Apr, Dysuria R30.0 and Acute cyst itis with hematuria N30.01 [facility] [place] [address] [facility] [id number] [address] [place] [id number] Apr, [facility] [place] [address] [id number] [address] [place] [id number] Apr, [facility] [place] [address] [facility] [id number] [address] [place] [phone] Apr, [facility] [place] [address] [facility] [id number] [address] [place] [phone] Apr, Anxiety F41.9 [place] [address] [facility] [id number] [address] [place] [phone] Feb, Anxiety F41.9 [place] [address] [facility] [id number] [address] [place] [id number] Jan, [place] [address] [facility] [id number] [address] [place] [phone] Jan, Severe scoliosis M41.9 [place] [address] [facility] [id number] [address] [place] [phone] 17 Jan, 2017 [place] [address] [facility] [id number] [address] [place] [id number] 15 Jan, 2017 Tremor of unknown origin R25 .1 ; Headache, unspecified headache type R51 ; Balance problem R26.89 ; Degenerative scoliosis M41.9 ; Pain in right hip M25.551 and Pain in left hip M25.552 [place] [address] [facility] [id number] [address] [place] [id number] 14 Jan, 2017 Tremor of unknown origin R25 .1 ; Headache, unspecified headache type R51 ; Balance problem R26.89 ; Degenerative scoliosis M41.9 ; Pain in right hip M25.551 and Pain in left hip M25.552 [place] [address] [facility] [id number] [address] [place] [phone] Jan, [place] [address] [place] [id number] [address] [place] [phone] Oct, Essential hypertension I10 ; Vitamin D deficiency E55.9 ; Depression F32.9 ; Anxiety F41.9 ; Lumbar pain M54.5 and Screening for colon cancer Z12.11 [place] [address] [facility] [id number] [address] [place] [phone] Aug, [place] [address] [facility] [id number] [address] [place] [phone] Dec, [place] [address] [place] [id number] [address] [place] [address] Dec, Hammertoe M20.40 [facility] [place] [address] [facility] [id number] [address] [place] [phone] Oct, [facility] [place] [address] [facility] [id number] [address] [place] [phone] Oct, Essential hypertension I10 ; Vitamin D deficiency E55.9 ; Depression F32.9 ; Anxiety F41.9 ; Lumbar pain M54.5 and Hammer toe of left foot M20.42 [facility] [place] [address] [facility] [id number] [address] [place] [phone] Sep, Acute upper respiratory infe ction, unspecified J06.9 and Other viral agents as the cause of diseases classified elsewhere B97.89 [facility] [address] [id number] [address] [place] [id number] Apr, Dental examination V72.2 [facility] [address] [id number] [place] [id number] Apr, Dental examination V72.2 [facility] [address] [id number] [address] [place] [id number] Apr, Dental examination V72.2 [facility] [address] [id number] [place] [address] [id number] Apr, Dental examination V72.2 [facility] [address] [id number] [address] [place] [id number] March, Dental examination V72.2 [facility] [place] [address] [id number] [address] [place] [phone] March, [facility] [place] [address] [id number] [address] [place] [phone] Feb, [facility] [place] [address] [facility] [id number] [address] [place] [phone] Feb, [facility] [place] [address] [facility] [id number] [address] [place] [phone] Oct, [facility] [address] [id number] [address] [place] [address], [place] [phone] Oct, [facility] [address] [id number] [address] [place] [address], [place] [address] Sep, [facility] [address] [id number] [address] [place] [address], [place] [phone] Sep, [facility] [address] [id number] [address] [place] [address], [place] [id number] Sep, [facility] [address] [id number] [address] [place] [address], [place] [id number] Sep, [facility] [address] [id number] [address] [place] [address], [place] [id number] Aug, [facility] [address] [id number] [address] [place] [address], [place] [phone] Aug, [facility] [address] [id number] [address] [place] [address], [place] [id number] Jul, [facility] [address] [id number] [address] [place] [address], [place] [id number] Jul, [facility] [address] [id number] [address] [place] [address], [place] [address] Jun, [facility] [address] [id number] [address] [place] [address], [place] [id number] Jun, [facility] [address] [id number] [address] [place] [address], [place] [phone] May, [facility] [address] [id number] [address] [place] [address], [place] [phone] May, [facility] [address] [id number] [address] [place] [address], [place] [id number] May, [facility] [address] [id number] [address] [place] [address], [place] [id number] May, [facility] [address] [id number] [address] [place] [address], [place] [id number] May, [facility] [address] [id number] [address] [place] [address], [place] [phone] May, [facility] [address] [id number] [address] [place] [address], [place] [phone] Apr, [facility] [address] [id number] [address] [place] [address], [place] [address] Apr, [facility] [address] [id number] [address] [place] [address], [place] [id number] March, [facility] [address] [id number] [address] [place] [address], [place] [id number] March, [facility] [address] [id number] [address] [place] [address], [place] [address] March, [facility] [address] [id number] [address] [place] [address], [place] [id number] March, [facility] [address] [id number] [address] [place] [address], [place] [id number] Jan, [facility] [address] [id number] [address] [place] [address], [place] [phone] Jan, [facility] [address] [id number] [address] [place] [address], [place] [phone] Dec, [facility] [address] [id number] [address] [place] [address], [place] [address] Dec, [facility] [address] [id number] [address] [place] [address], [place] [phone] Nov, [facility] [address] [id number] [address] [place] [address], [place] [address] Nov, [facility] [address] [id number] [address] [place] [address], [place] [phone] Nov, [facility] [address] [id number] [address] [place] [address], [place] [phone] Nov, [facility] [address] [id number] [address] [place] [phone] Nov, [facility] [address] [id number] [address] [place] [address], [place] [address] Nov, [facility] [address] [id number] [address] [place] [id number] Oct, [facility] [address] [id number] [address] [place] [address], [place] [id number] Oct, [facility] [address] [id number] [address] [place] [address], [place] [address] Oct, [facility] [address] [id number] [address] [place] [address], [place] [id number] Oct, [facility] [address] [id number] [address] [place] [address], [place] [address] Sep, [facility] [address] [id number] [address] [place] [phone] Sep, [facility] [address] [id number] [address] [place] [address], [place] [address] Sep, [facility] [address] [id number] [address] [place] [address], [place] [id number] Sep, [facility] [address] [id number] [address] [place] [phone] Aug, [facility] [address] [id number] [address] [place] [address], [place] [address] Aug, [facility] [address] [id number] [address] [place] [phone] Aug, [facility] [address] [id number] [address] [place] [phone] Aug, [facility] [address] [id number] [address] [place] [id number] Jul, [facility] [address] [id number] [address] [place] [phone] Jun, [facility] [address] [id number] [facility] [address] Jun, [facility] [address] [id number] [address] [place] [address], [place] [address] Jun, [facility] [address] [id number] [address] [place] [address], [place] [address] Jun, [facility] [address] [id number] [address] [place] [address], [place] [address] Jun, [facility] [address] [id number] [address] [place] [address], [place] [address] May, [facility] [address] [id number] [address] [place] [address], [place] [address] Apr, [facility] [address] [id number] [address] [place] [address], [place] [address] Apr, [facility] [address] [id number] [address] [place] [address], [place] [phone] March, [facility] [address] [id number] [address] [place] [address], [place] [address] March, [facility] [address] [id number] [address] [place] [address], [place] [address] March, [facility] [address] [id number] [address] [place] [address], [place] [address] March, [facility] [address] [id number] [address] [place] [address], [place] [phone] March, [facility] [address] [id number] [address] [place] [address], [place] [phone] Feb, [facility] [address] [id number] [address] [place] [address], [place] [address] Feb, [facility] [address] [id number] [address] [place] [address], [place] [address] Jan, [facility] [address] [id number] [address] [place] [address], [place] [address] 25 Jan, 2013 [facility] [address] [id number] [address] [place] [address], [place] [address] 21 Jan, 2013 [facility] [address] [id number] [address] [place] [address], [place] [address] 15 Jan, 2013 [facility] [address] [id number] [address] [place] [address], [place] [address] 15 Jan, 2013 [facility] [address] [id number] [address] [place] [address], [place] [address] 14 Jan, 2013 [facility] [address] [id number] [address] [place] [address], [place] [address] 14 Jan, 2013 [facility] [address] [id number] [address] [place] [address], [place] [address] 13 Jan, 2013 [facility] [address] [id number] [address] [place] [address], [place] [id number] 26 Dec, 2012 [facility] [address] [id number] [address] [place] [address], [place] [address] 18 Dec, 2012 [facility] [address] [id number] [address] [place] [address], [place] [address] 15 Dec, 2012 [facility] [address] [id number] [address] [place] [address], [place] [address] 15 Dec, 2012 [facility] [address] [id number] [address] [place] [address], [place] [address] 14 Dec, 2012 [facility] [address] [id number] [address] [place] [address], [place] [id number] 13 Dec, 2012 [facility] [address] [id number] [address] [place] [address], [place] [id number] 12 Dec, 2012 [facility] [address] [id number] [address] [place] [address], [place] [id number] 05 Dec, 2012 [facility] [address] [id number] [address] [place] [address], [place] [address] 28 Nov, 2012 [facility] [place] [address] [facility] [id number] [address] [address] Nov, [facility] [place] [address] [facility] [id number] [address] [place] [id number] Nov, [facility] [place] [address] [facility] [id number] [address] [place] [id number] 10 Nov, 2012 IMMUNIZATIONS No Known Immunizations SOCIAL HISTORY Never Assessed REASON FOR VISIT Medical records request PLAN OF CARE VITAL SIGNS MEDICATIONS Unknown [...]
--- OUTSIDE RECORDS SUMMARY | 2020-02-19 13:39 | XMS REPORT ---
Author Author Sherly SOTOMAYOR Organization [facility] Address [address] [place] [address] Care Team Providers Care Master Pilot Name Role Phone ESTELLA SOTOMAYOR Unavailable PROBLEMS Type Condition ICD9-CM Code [id number] Code Onset Dates Condition S tatus SNOMED Code Problem History of hypertension Z86.79 Active 297954936 Problem History of spinal fusion for scoliosis Z98.1 Active 940788377 Problem Vitamin D deficiency E55.9 Active 62913397 Problem Anxiety F41.9 Active 09202024 Problem Depression F32.9 Active [id number] ALLERGIES No Information ENCOUNTERS Encounter Location Date Diagnosis [facility] [address] [address] Apr, Vitamin D deficiency E55.9 ; History of spinal fusion for scoliosis Z98.1 ; Anxiety F41.9 and Depression F32.9 [facility] [address] [address] Jan, Essential hypertension I10 ; Depression F32.9 ; Anxiety F41.9 ; History of hypertension Z86.79 ; History of anemia Z86.2 and Hyponatremia E87.1 [facility] [address] [place] [id number] [address] [place] [address] Dec, Hyponatremia E87.1 [facility] [address] [id number] [address] [place] [address] Dec, Fever, unspecified fever cau se R50.9 and Acute nasopharyngitis J00 [facility] [address] [id number] [address] [place] [address] Nov, Hyponatremia E87.1 [facility] [address] [address] Oct, Essential hypertension I10 ; Long-term use of high-risk medication Z79.899 and Vitamin D deficiency E55.9 [facility] [address] [facility] [id number] [address] [place] [address] Oct, Essential hypertension I10 ; Depression F32.9 ; Anxiety F41.9 ; Long-term use of high-risk medication Z79.899 and Vitamin D deficiency E55.9 [place] [address] [facility] [id number] [address] [place] [address] Jun, History of spinal fusion for scoliosis Z98.1 ; Postoperative anemia D64.9 ; Essential hypertension I10 ; Depression F32.9 and Anxiety F41.9 [place] [address] [place] [id number] [address] [place] [address] Jun, History of spinal fusion for scoliosis Z98.1 ; Postoperative anemia D64.9 ; Essential hypertension I10 ; Depression F32.9 and Anxiety F41.9 [place] [address] [place] [id number] [address] [place] [address] May, History of spinal fusion for scoliosis Z98.1 ; Postoperative anemia D64.9 ; Essential hypertension I10 ; Depression F32.9 and Anxiety F41.9 [place] [address] [place] [id number] [address] [place] [address] May, [facility] [address] [facility] [id number] [address] [place] [address] Apr, Dysuria R30.0 and Acute cyst itis with hematuria N30.01 [facility] [address] [facility] [id number] [address] [place] [address] Apr, [facility] [address] [id number] [address] [place] [address] Apr, [facility] [address] [id number] [address] [place] [address] Apr, [facility] [address] [address] [id number] [address] [place] [address] Apr, Anxiety F41.9 [facility] [address] [address] [id number] [address] [place] [address] Feb, Anxiety F41.9 [facility] [address] [facility] [id number] [address] [place] [address] Jan, [facility] [address] [place] [address] [id number] [place] [address] Jan, Severe scoliosis M41.9 [facility] [address] [address] [id number] [address] [place] [address] Jan, [place] [address] [place] [id number] [place] [phone] 15 Jan, 2017 Tremor of unknown origin R25 .1 ; Headache, unspecified headache type R51 ; Balance problem R26.89 ; Degenerative scoliosis M41.9 ; Pain in right hip M25.551 and Pain in left hip M25.552 [place] [address] [place] [id number] [address] [place] [address] Jan, Tremor of unknown origin R25 .1 ; Headache, unspecified headache type R51 ; Balance problem R26.89 ; Degenerative scoliosis M41.9 ; Pain in right hip M25.551 and Pain in left hip M25.552 [place] [address] [place] [id number] [address] [place] [address] Jan, [facility] [address] [address] [id number] [place] [address] Oct, Essential hypertension I10 ; Vitamin D deficiency E55.9 ; Depression F32.9 ; Anxiety F41.9 ; Lumbar pain M54.5 and Screening for colon cancer Z12.11 [facility] [address] [place] [id number] [address] [place] [address] Aug, [facility] [address] [id number] [address] [place] [address] Dec, [facility] [address] [id number] [address] [place] [address] Dec, Hammertoe M20.40 [facility] [address] [id number] [address] [place] [phone] Oct, [facility] [address] [facility] [id number] [address] [place] [address] Oct, Essential hypertension I10 ; Vitamin D deficiency E55.9 ; Depression F32.9 ; Anxiety F41.9 ; Lumbar pain M54.5 and Hammer toe of left foot M20.42 [facility] [address] [id number] [address] [place] [address] Sep, Acute upper respiratory infe ction, unspecified J06.9 and Other viral agents as the cause of diseases classified elsewhere B97.89 [facility] [address] [id number] [place] [address] [id number] Apr, Dental examination V72.2 [facility] [address] [id number] [place] [address] [id number] Apr, Dental examination V72.2 [facility] [id number] [place] [id number] Apr, Dental examination V72.2 [facility] [address] [id number] [place] [address] [id number] Apr, Dental examination V72.2 [facility] [address] [id number] [place] [address] [id number] March, Dental examination V72.2 [facility] [address] [id number] [address] [place] [phone] March, [facility] [address] [facility] [id number] [address] [place] [phone] Feb, [facility] [address] [facility] [id number] [address] [place] [phone] Feb, [facility] [address] [id number] [address] [place] [address], [place] [address] Oct, [facility] [address] [id number] [address] [place] [address], [place] [address] Oct, [facility] [address] [id number] [address] [place] [address], [place] [address] Sep, [facility] [address] [id number] [address] [place] [address], [place] [address] Sep, [facility] [address] [id number] [address] [place] [address], [place] [address] Sep, [facility] [address] [id number] [address] [place] [address], [place] [address] Sep, [facility] [address] [id number] [address] [place] [address], [place] [address] Aug, [facility] [address] [id number] [address] [place] [address], [place] [address] Aug, [facility] [address] [id number] [address] [place] [address], [place] [address] Jul, [facility] [address] [id number] [address] [place] [address], [place] [address] Jul, [facility] [address] [id number] [address] [place] [address], [place] [address] Jun, [facility] [address] [id number] [address] [place] [address], [place] [address] Jun, [facility] [address] [id number] [address] [place] [address], [place] [address] May, [facility] [address] [id number] [address] [place] [address], [place] [address] May, [facility] [address] [id number] [address] [place] [address], [place] [address] May, [facility] [address] [id number] [address] [place] [address], [place] [address] May, [facility] [address] [id number] [address] [place] [address], [place] [address] May, [facility] [address] [id number] [address] [place] [address], [place] [address] May, [facility] [address] [id number] [address] [place] [address], [place] [address] Apr, [facility] [address] [id number] [address] [place] [address], [place] [address] Apr, [facility] [address] [id number] [address] [place] [address], [place] [address] March, [facility] [address] [id number] [address] [place] [address], [place] [address] March, [facility] [address] [id number] [address] [place] [address], [place] [address] March, [facility] [address] [id number] [address] [place] [address], [place] [address] March, [facility] [address] [id number] [address] [place] [address], [place] [address] Jan, [facility] [address] [id number] [address] [place] [address], [place] [address] Jan, [facility] [address] [id number] [address] [place] [address], [place] [address] Dec, [facility] [address] [id number] [address] [place] [address], [place] [address] Dec, [facility] [address] [id number] [address] [place] [address], [place] [address] Nov, [facility] [address] [id number] [address] [place] [address], [place] [address] Nov, [facility] [address] [id number] [address] [place] [address], [place] [address] Nov, [facility] [address] [id number] [address] [place] [address] Nov, [facility] [address] [id number] [address] [place] [address], [place] [address] Nov, [facility] [address] [id number] [address] [place] [address] Nov, [facility] [address] [id number] [address] [place] [address], [place] [address] Oct, [facility] [address] [id number] [address] [place] [address] Oct, [facility] [address] [id number] [address] [place] [address], [place] [address] Oct, [facility] [address] [id number] [address] [place] [address], [place] [address] Oct, [facility] [address] [id number] [address] [place] [address], [place] [address] Sep, [facility] [address] [id number] [address] [place] [address], [place] [address] Sep, [facility] [address] [id number] [address] [place] [address] Sep, [facility] [address] [id number] [address] [place] [address] Sep, [facility] [address] [id number] [address] [place] [address] Aug, [facility] [address] [id number] [address] [place] [address] Aug, [facility] [address] [id number] [address] [place] [address] Aug, [facility] [address] [id number] [address] [place] [address] Aug, [facility] [address] [id number] [address] [place] [address], [place] [address] Jul, [facility] [address] [id number] [address] [place] [address], [place] [address] Jun, [facility] [address] [id number] [address] [place] [address], [place] [address] Jun, [facility] [address] [id number] [address] [place] [address], [place] [address] Jun, [facility] [address] [id number] [address] [place] [address], [place] [address] Jun, [facility] [address] [id number] [address] [place] [address], [place] [address] Jun, [facility] [address] [id number] [address] [place] [address], [place] [address] May, [facility] [address] [id number] [address] [place] [address], [place] [address] Apr, [facility] [address] [id number] [address] [place] [address], [place] [address] Apr, [facility] [address] [id number] [address] [place] [address], [place] [address] March, [facility] [address] [id number] [address] [place] [address], [place] [address] March, [facility] [address] [id number] [address] [place] [address], [place] [address] March, [facility] [address] [id number] [address] [place] [address], [place] [address] March, [facility] [address] [id number] [address] [place] [address], [place] [address] March, [facility] [address] [id number] [address] [place] [address], [place] [address] Feb, [facility] [address] [id number] [address] [place] [address], [place] [address] Feb, [facility] [address] [id number] [address] [place] [address], [place] [address] Jan, [facility] [address] [id number] [facility] [place] [address] 25 Jan, 2013 [facility] [address] [id number] [address] [place] [address], [place] [address] 21 Jan, 2013 [facility] [address] [id number] [address] [place] [address], [place] [address] 15 Jan, 2013 [facility] [address] [id number] [address] [place] [address], [place] [address] 15 Jan, 2013 [facility] [address] [id number] [address] [place] [address], [place] [address] 14 Jan, 2013 [facility] [address] [id number] [address] [place] [address], [place] [address] 14 Jan, 2013 [facility] [address] [id number] [address] [place] [address], [place] [address] 13 Jan, 2013 [facility] [address] [id number] [address] [place] [address], [place] [address] 26 Dec, 2012 [facility] [address] [id number] [address] [place] [address], [place] [address] 18 Dec, 2012 [facility] [address] [id number] [address] [place] [address], [place] [address] 15 Dec, 2012 [facility] [address] [id number] [address] [place] [address], [place] [address] 15 Dec, 2012 [facility] [address] [id number] [address] [place] [address], [place] [address] 14 Dec, 2012 [facility] [address] [id number] [address] [place] [address], [place] [address] 13 Dec, 2012 [facility] [address] [id number] [address] [place] [address], [place] [address] 12 Dec, 2012 [facility] [address] [id number] [address] [place] [address], [place] [address] 05 Dec, 2012 [facility] [address] [id number] [address] [place] [address] Nov, [facility] [address] [facility] [id number] [address] [place] [address] Nov, [facility] [address] [facility] [id number] [address] [place] [address] Nov, [facility] [address] [facility] [id number] [address] [place] [address] Nov, IMMUNIZATIONS No Known Immunizations SOCIAL HISTORY Never Assessed REASON FOR VISIT PLAN OF CARE VITAL SIGNS MEDICATIONS No Known Medications RESULTS No Results PROCEDURES Procedure Date Ordered Result Body Site LAB NOT BILLED BY [facility] Dec 04, 2017 INSTRUCTIONS MEDICATIONS ADMINISTERED No Known [...]
--- OUTSIDE RECORDS SUMMARY | 2020-02-19 13:39 | XMS REPORT ---
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 Name Role Phone ESTELLA SOTOMYAOR Unavailable PROBLEMS Type Condition ICD9-CM Code QDZ17-QU Code Onset Dates Condition S tatus SNOMED Code Problem History of hypertension Z86.79 Active 274445762 Problem History of spinal fusion for scoliosis Z98.1 Active 917737655 Problem Vitamin D deficiency E55.9 Active 39117757 Problem Anxiety F41.9 Active 38949048 Problem Depression F32.9 Active 53115412 ALLERGIES Substance Reaction Event Type Date Status Neosporin Unknown Drug Allergy Jun, Active Fosamax Unknown Drug Allergy Jun, Active Penicillin Unknown Drug Allergy Jun, Active Evista 60 Mg Tablet legs swelling Non Drug Allergy Jun, Act jaelyn ENCOUNTERS Encounter Location Date Diagnosis [facility] [address] [address] Jan, Essential hypertension I10 ; Depression F32.9 ; Anxiety F41.9 ; History of hypertension Z86.79 ; History of anemia Z86.2 and Hyponatremia E87.1 [facility] [address] [place] [id number] [address] [place] [phone] Dec, Hyponatremia E87.1 [facility] [address] [facility] [id number] [address] [place] [phone] Dec, Fever, unspecified fever cau se R50.9 and Acute nasopharyngitis J00 [facility] [address] [id number] [address] [place] [phone] Nov, Hyponatremia E87.1 [facility] [address] [id number] [address] [place] [phone] Oct, Essential hypertension I10 ; Long-term use of high-risk medication Z79.899 and Vitamin D deficiency E55.9 [place] [address] [facility] [id number] [address] [place] [phone] Oct, Essential hypertension I10 ; Depression F32.9 ; Anxiety F41.9 ; Long-term use of high-risk medication Z79.899 and Vitamin D deficiency E55.9 [place] [address] [facility] [id number] [address] [place] [phone] Jun, History of spinal fusion for scoliosis Z98.1 ; Postoperative anemia D64.9 ; Essential hypertension I10 ; Depression F32.9 and Anxiety F41.9 [place] [address] [place] [id number] [place] [phone] Jun, History of spinal fusion for scoliosis Z98.1 ; Postoperative anemia D64.9 ; Essential hypertension I10 ; Depression F32.9 and Anxiety F41.9 [place] [address] [place] [id number] [address] [place] [phone] May, History of spinal fusion for scoliosis Z98.1 ; Postoperative anemia D64.9 ; Essential hypertension I10 ; Depression F32.9 and Anxiety F41.9 [facility] [address] [place] [id number] [address] [place] [phone] May, [facility] [address] [facility] [id number] [address] [place] [phone] Apr, Dysuria R30.0 and Acute cyst itis with hematuria N30.01 [facility] [address] [facility] [id number] [address] [place] [phone] Apr, [facility] [address] [place] [id number] [address] [place] [phone] Apr, [facility] [address] [id number] [address] [place] [phone] Apr, [facility] [address] [place] [id number] [address] [place] [phone] Apr, Anxiety F41.9 [facility] [address] [facility] [id number] [address] [place] [phone] Feb, Anxiety F41.9 [facility] [address] [facility] [id number] [address] [place] [phone] Jan, [place] [address] [facility] [id number] [address] [place] [address] Jan, Severe scoliosis M41.9 [facility] [address] [id number] [address] [place] [phone] Jan, [place] [address] [facility] [id number] [place] [phone] Jan, Tremor of unknown origin R25 .1 ; Headache, unspecified headache type R51 ; Balance problem R26.89 ; Degenerative scoliosis M41.9 ; Pain in right hip M25.551 and Pain in left hip M25.552 [place] [address] [facility] [id number] [address] [place] [address] Jan, Tremor of unknown origin R25 .1 ; Headache, unspecified headache type R51 ; Balance problem R26.89 ; Degenerative scoliosis M41.9 ; Pain in right hip M25.551 and Pain in left hip M25.552 [place] [address] [place] [id number] [address] [place] [address] Jan, [place] [address] [facility] [id number] [address] [place] [phone] Oct, Essential hypertension I10 ; Vitamin D deficiency E55.9 ; Depression F32.9 ; Anxiety F41.9 ; Lumbar pain M54.5 and Screening for colon cancer Z12.11 [place] [address] [facility] [id number] [address] [place] [phone] Aug, [place] [address] [place] [id number] [address] [place] [phone] Dec, [place] [address] [place] [id number] [place] [phone] Dec, Hammertoe M20.40 [facility] [address] [id number] [address] [place] [phone] Oct, [facility] [address] [facility] [id number] [address] [place] [phone] Oct, Essential hypertension I10 ; Vitamin D deficiency E55.9 ; Depression F32.9 ; Anxiety F41.9 ; Lumbar pain M54.5 and Hammer toe of left foot M20.42 [facility] [address] [facility] [id number] [address] [place] [phone] Sep, Acute upper respiratory infe ction, unspecified J06.9 and Other viral agents as the cause of diseases classified elsewhere B97.89 [facility] [address] [place] [id number] Apr, Dental examination V72.2 [facility] [address] [place] [id number] Apr, Dental examination V72.2 [facility] [address] [place] [id number] Apr, Dental examination V72.2 [facility] [address] [id number] [place] [id number] Apr, Dental examination V72.2 [facility] [address] [place] [address] [id number] March, Dental examination V72.2 [facility] [address] [id number] [address] [place] [phone] March, [facility] [address] [facility] [id number] [address] [place] [phone] 14 Feb, 2015 [facility] [address] [facility] [id number] [address] [place] [phone] Feb, [facility] [address] [facility] [id number] [address] [place] [phone] Oct, [facility] [address] [id number] [address] [place] [address], [place] [address] Oct, [facility] [address] [id number] [address] [place] [address], [place] [address] Sep, [facility] [address] [id number] [address] [place] [address], [place] [address] Sep, [facility] [address] [id number] [address] [place] [address], [place] [address] Sep, [facility] [address] [id number] [address] [place] [address], [place] [address] Sep, [facility] [address] [id number] [address] [place] [address], [place] [address] Aug, [facility] [address] [id number] [address] [place] [address], [place] [address] Aug, [facility] [address] [id number] [address] [place] [address], [place] [address] Jul, [facility] [address] [id number] [address] [place] [address], [place] [address] Jul, [facility] [address] [id number] [address] [place] [address], [place] [address] Jun, [facility] [address] [id number] [address] [place] [address], [place] [address] Jun, [facility] [address] [id number] [address] [place] [address], [place] [address] May, [facility] [address] [id number] [address] [place] [address], [place] [address] May, [facility] [address] [id number] [address] [place] [address], [place] [address] May, [facility] [address] [id number] [address] [place] [address], [place] [address] May, [facility] [address] [id number] [address] [place] [address], [place] [address] May, [facility] [address] [id number] [address] [place] [address], [place] [address] May, [facility] [address] [id number] [address] [place] [address], [place] [address] Apr, [facility] [address] [id number] [address] [place] [address], [place] [address] Apr, [facility] [address] [id number] [address] [place] [address], [place] [address] March, [facility] [address] [id number] [address] [place] [address], [place] [address] March, [facility] [address] [id number] [address] [place] [address], [place] [address] March, [facility] [address] [id number] [address] [place] [address], [place] [address] March, [facility] [address] [id number] [address] [place] [address], [place] [address] Jan, [facility] [address] [id number] [address] [place] [address], [place] [address] Jan, [facility] [address] [id number] [address] [place] [address], [place] [address] 07 Dec, 2013 [facility] [address] [id number] [address] [place] [address], [place] [address] Dec, [facility] [address] [id number] [address] [place] [address], [place] [address] Nov, [facility] [address] [id number] [address] [place] [address], [place] [address] Nov, [facility] [address] [id number] [address] [place] [address], [place] [address] Nov, [facility] [address] [id number] [address] [place] [address], [place] [address] Nov, [facility] [address] [id number] [address] [place] [address], [place] [address] Nov, [facility] [address] [id number] [address] [place] [address], [place] [address] Nov, [facility] [address] [id number] [address] [place] [address], [place] [address] Oct, [facility] [address] [id number] [address] [place] [address], [place] [address] Oct, [facility] [address] [id number] [address] [place] [address], [place] [address] Oct, [facility] [address] [id number] [address] [place] [address], [place] [address] Oct, [facility] [address] [id number] [address] [place] [address], [place] [address] Sep, [facility] [address] [id number] [address] [place] [phone] Sep, [facility] [address] [id number] [address] [place] [address], [place] [address] Sep, [facility] [address] [id number] [address] [place] [phone] Sep, [facility] [address] [id number] [address] [place] [phone] Aug, [facility] [address] [id number] [address] [place] [phone] Aug, [facility] [address] [id number] [address] [place] [phone] Aug, [facility] [address] [id number] [address] [place] [phone] Aug, [facility] [address] [id number] [address] [place] [phone] Jul, [facility] [address] [id number] [address] [place] [phone] Jun, [facility] [address] [id number] [address] [place] [address], [place] [address] Jun, [facility] [address] [id number] [address] [place] [address], [place] [address] Jun, [facility] [address] [id number] [address] [place] [address], [place] [address] Jun, [facility] [address] [id number] [address] [place] [address], [place] [address] Jun, [facility] [address] [id number] [address] [place] [address], [place] [address] May, [facility] [address] [id number] [address] [place] [address], [place] [address] Apr, [facility] [address] [id number] [address] [place] [address], [place] [address] Apr, [facility] [address] [id number] [address] [place] [address], [place] [address] March, [facility] [address] [id number] [address] [place] [address], [place] [address] March, [facility] [address] [id number] [address] [place] [address], [place] [address] March, [facility] [address] [id number] [address] [place] [address], [place] [address] March, [facility] [address] [id number] [address] [place] [address], [place] [address] March, [facility] [address] [id number] [address] [place] [address], [place] [address] Feb, [facility] [address] [id number] [address] [place] [address], [place] [address] Feb, [facility] [address] [id number] [address] [place] [address], [place] [address] Jan, [facility] [address] [id number] [facility] [place] [address] 25 Jan, 2013 [facility] [address] [id number] [address] [place] [address], [place] [address] 21 Jan, 2013 [facility] [address] [id number] [address] [place] [address], [place] [address] 15 Jan, 2013 [facility] [address] [id number] [address] [place] [address], [place] [address] 15 Jan, 2013 [facility] [address] [id number] [address] [place] [address], [place] [address] 14 Jan, 2013 [facility] [address] [id number] [address] [place] [address], [place] [address] 14 Jan, 2013 [facility] [address] [id number] [address] [place] [address], [place] [address] 13 Jan, 2013 [facility] [address] [id number] [address] [place] [address], [place] [address] 26 Dec, 2012 [facility] [address] [id number] [address] [place] [address], [place] [address] 18 Dec, 2012 [facility] [address] [id number] [address] [place] [address], [place] [address] 15 Dec, 2012 [facility] [address] [id number] [address] [place] [address], [place] [address] 15 Dec, 2012 [facility] [address] [id number] [address] [place] [address], [place] [address] 14 Dec, 2012 [facility] [address] [id number] [address] [place] [address], [place] [address] 13 Dec, 2012 [facility] [address] [id number] [address] [place] [address], [place] [address] 12 Dec, 2012 [facility] [address] [id number] [address] [place] [address], [place] [address] 05 Dec, 2012 [facility] [address] [id number] [address] [place] [phone] Nov, [facility] [address] [facility] [id number] [address] [place] [phone] Nov, [facility] [address] [facility] [id number] [address] [place] [phone] Nov, [facility] [address] [facility] [id number] [address] [place] [phone] Nov, IMMUNIZATIONS No Known Immunizations SOCIAL HISTORY Never Assessed REASON FOR VISIT Lab f/u, pt. states she has been taking her BP since last time she was here in [facility] and is feeling ok on current BP medication dose, few weeks ago she wasnt fe eling good in the morning and blacked out when on toilet and it was due to low i harjeet and the pills have helped and she hasnt had any episodes since starting iron , [place],[facility] PLAN OF CARE Activity Details Follow Up 4 Weeks Reason:BP VITAL SIGNS Height 64 in 2017-06-12 Weight 105.4 lbs 2017-06-12 Temperature 97.8 degrees Fahrenheit 2017-06-12 Heart Rate 84 bpm 2017-06-12 Respiratory Rate 20 2017-06-12 BMI 18.09 kg/m2 2017-06-12 Blood pressure systolic 118 mmHg 2017-06-12 Blood pressure diastolic 73 mmHg 2017-06-12 MEDICATIONS Medication Instructions Dosage Frequency Start Date End Date Duration S tatus Lorazepam 0.5 MG Orally Once a day 1 tablet as needed 24h 28 days Active Fluoxetine HCl 20 MG orally once daily TAKE ONE capsule 24h Active Ferrous Sulfate 325 MG A ctive Hydrocodone-Acetaminophen 5-325 MG Orally 3 times a day 1 or 2 t ablet as needed 8h Apr, 14 days Active Vitamin D 1000 UNIT Orally 2 times a day 1 tablet 12h Active Calcium 600 mg 1 Capsule by Oral route 2 times per day 2 Jun, Active Vitamin C 500 MG Orally Once a day 1 tablet 24h Active RESULTS Name Result Date Reference Range CBC 2017-06-12 WBC 4.7 3.4-10.8 RBC 4.27 3.77-5.28 Hemoglobin 12.5 11.1-15.9 Hematocrit 38.2 34.0-46.6 MCV 90 79-97 MCH 29.3 26.6-33.0 MCHC 32.7 31.5-35.7 RDW 13.3 12.3-15.4 Platelets 360 150-379 Neutrophils 55 Lymphs 35 Monocytes 8 Eos 1 Basos 1 Immature Cells Neutrophils (Absolute) 2.6 1.4-7.0 Lymphs (Absolute) 1.6 0.7-3.1 Monocytes(Absolute) 0.4 0.1-0.9 Eos (Absolute) 0.1 0.0-0.4 Baso (Absolute) 0.0 0.0-0.2 Immature Granulocytes 0 Immature Grans (Abs) 0.0 0.0-0.1 NRBC Hematology Comments: CMP 2017-06-12 Glucose, Serum 87 65-99 BUN 9 8-27 Creatinine, Serum 0.58 0.57-1.00 eGFR If NonAfricn Am 101 >59 eGFR If Africn Am 116 >59 BUN/Creatinine Ratio 16 12-28 Sodium, Serum 130 134-144 Potassium, Serum 4.5 3.5-5.2 Chloride, Serum 90 96-106 Carbon Dioxide, Total 24 18-29 Calcium, Serum 9.9 8.7-10.3 Protein, Total, Serum 7.6 6.0-8.5 Albumin, Serum 4.7 3.6-4.8 Globulin, Total 2.9 1.5-4.5 A/G Ratio 1.6 1.2-2.2 Bilirubin, Total <0.2 0.0-1.2 Alkaline Phosphatase, S 101 39-117 AST (SGOT) 35 0-40 ALT (SGPT) 20 0-32 PROCEDURES Procedure Date Ordered Result Body Site LAB NOT BILLED BY [facility] Jun 12, 2017 [facility] VISIT ESTABLISHED PATIENT Jun 12, 2017 VENIPUNCT, ROUTINE* Jun 12, 2017 INSTRUCTIONS MEDICATIONS ADMINISTERED No Known Medications [...] 1978 Surgical History Arthroscopyof the left knee 2003 Surgical History Back Surgery -spinal fusion - Dr. De Los Santos 04/11/2017 Surgical History left Knee replacment 11/2017 Hospitalization History Surgery(s) only
--- OUTSIDE RECORDS SUMMARY | 2020-02-19 13:39 | XMS REPORT ---
Author Author Sherly SOTOMAYOR Organization [facility] Address [address] [place] [address] Care Team Providers Care Pig Sticker Name Role Phone ESTELLA SOTOMAYOR Unavailable PROBLEMS Type Condition ICD9-CM Code EPG36-JG Code Onset Dates Condition S tatus SNOMED Code Problem History of hypertension Z86.79 Active 658721837 Problem History of spinal fusion for scoliosis Z98.1 Active 649191052 Problem Vitamin D deficiency E55.9 Active 32023418 Problem Anxiety F41.9 Active 41641719 Problem Depression F32.9 Active 97591527 ALLERGIES Substance Reaction Event Type Date Status Neosporin Unknown Drug Allergy Oct, Active Fosamax Unknown Drug Allergy Oct, Active Penicillin Unknown Drug Allergy Oct, Active Evista 60 Mg Tablet legs swelling Non Drug Allergy Oct, Act jaelyn ENCOUNTERS Encounter Location Date Diagnosis [facility] [address] [address] Apr, [facility] [address] [address] Jan, Essential hypertension I10 ; Depression F32.9 ; Anxiety F41.9 ; History of hypertension Z86.79 ; History of anemia Z86.2 and Hyponatremia E87.1 [facility] [address] [place] [id number] [address] [place] [address] Dec, Hyponatremia E87.1 [facility] [address] [address] Dec, Fever, unspecified fever cau se R50.9 and Acute nasopharyngitis J00 [facility] [address] [address] Nov, Hyponatremia E87.1 [facility] [address] [facility] [id number] [address] [place] [address] Oct, Essential hypertension I10 ; Long-term use of high-risk medication Z79.899 and Vitamin D deficiency E55.9 [facility] [address] [facility] [id number] [address] [place] [address] Oct, Essential hypertension I10 ; Depression F32.9 ; Anxiety F41.9 ; Long-term use of high-risk medication Z79.899 and Vitamin D deficiency E55.9 [place] [address] [address] [facility] [id number] [address] [place] [address] Jun, History of spinal fusion for scoliosis Z98.1 ; Postoperative anemia D64.9 ; Essential hypertension I10 ; Depression F32.9 and Anxiety F41.9 [place] [address] [place] [id number] [place] [address] Jun, History of spinal fusion for scoliosis Z98.1 ; Postoperative anemia D64.9 ; Essential hypertension I10 ; Depression F32.9 and Anxiety F41.9 [place] [address] [address] May, History of spinal fusion for scoliosis Z98.1 ; Postoperative anemia D64.9 ; Essential hypertension I10 ; Depression F32.9 and Anxiety F41.9 [place] [id number] [place] [address] May, [facility] [address] [facility] [id number] [address] [place] [address] Apr, Dysuria R30.0 and Acute cyst itis with hematuria N30.01 [facility] [address] [place] [id number] [address] [place] [address] Apr, [facility] [address] [place] [id number] [address] [place] [address] Apr, [facility] [address] [place] [id number] [place] [address] Apr, [facility] [address] [id number] [address] [place] [address] Apr, Anxiety F41.9 [facility] [address] [id number] [address] [place] [address] Feb, Anxiety F41.9 [facility] [address] [id number] [address] [place] [address] Jan, [facility] [address] [id number] [address] [place] [address] Jan, Severe scoliosis M41.9 [place] [address] [id number] [address] [place] [address] Jan, [place] [address] [id number] [address] [place] [address] Jan, Tremor of unknown origin R25 .1 ; Headache, unspecified headache type R51 ; Balance problem R26.89 ; Degenerative scoliosis M41.9 ; Pain in right hip M25.551 and Pain in left hip M25.552 [place] [address] [address] [facility] [id number] [address] [place] [address] Jan, Tremor of unknown origin R25 .1 ; Headache, unspecified headache type R51 ; Balance problem R26.89 ; Degenerative scoliosis M41.9 ; Pain in right hip M25.551 and Pain in left hip M25.552 [place] [address] [id number] [address] [place] [address] Jan, [place] [address] [facility] [id number] [address] [place] [address] Oct, Essential hypertension I10 ; Vitamin D deficiency E55.9 ; Depression F32.9 ; Anxiety F41.9 ; Lumbar pain M54.5 and Screening for colon cancer Z12.11 [facility] [address] [facility] [id number] [address] [place] [address] Aug, [facility] [address] [place] [id number] [address] [place] [address] Dec, [facility] [address] [facility] [id number] [address] [place] [address] Dec, Hammertoe M20.40 [facility] [address] [facility] [id number] [address] [place] [address] Oct, [facility] [address] [address] Oct, Essential hypertension I10 ; Vitamin D deficiency E55.9 ; Depression F32.9 ; Anxiety F41.9 ; Lumbar pain M54.5 and Hammer toe of left foot M20.42 [facility] [address] [address] Sep, Acute upper respiratory infe ction, unspecified J06.9 and Other viral agents as the cause of diseases classified elsewhere B97.89 [facility] [address] [place] [id number] Apr, Dental examination V72.2 [facility] [address] [place] [id number] Apr, Dental examination V72.2 [facility] [address] [place] [id number] Apr, Dental examination V72.2 [facility] [id number] [place] [id number] Apr, Dental examination V72.2 [facility] [address] [id number] [address] [place] [address] [id number] March, Dental examination V72.2 [facility] [address] [place] [id number] [address] [place] [phone] March, [facility] [address] [facility] [id number] [address] [place] [address] Feb, [facility] [address] [place] [id number] [address] [place] [address] Feb, [facility] [address] [id number] [address] [place] [address], [place] [address] Oct, [facility] [address] [id number] [address] [place] [address], [place] [address] Oct, [facility] [address] [id number] [address] [place] [address], [place] [address] Sep, [facility] [address] [id number] [address] [place] [address], [place] [address] Sep, [facility] [address] [id number] [address] [place] [address], [place] [address] Sep, [facility] [address] [id number] [address] [place] [address], [place] [address] Sep, [facility] [address] [id number] [address] [place] [address], [place] [address] Aug, [facility] [address] [id number] [address] [place] [address], [place] [address] Aug, [facility] [address] [id number] [address] [place] [address], [place] [address] Jul, [facility] [address] [id number] [address] [place] [address], [place] [address] Jul, [facility] [address] [id number] [address] [place] [address], [place] [address] Jun, [facility] [address] [id number] [address] [place] [address], [place] [address] Jun, [facility] [address] [id number] [address] [place] [address], [place] [address] May, [facility] [address] [id number] [address] [place] [address], [place] [address] May, [facility] [address] [id number] [address] [place] [address], [place] [address] May, [facility] [address] [id number] [address] [place] [address], [place] [address] May, [facility] [address] [id number] [address] [place] [address], [place] [address] May, [facility] [address] [id number] [address] [place] [address], [place] [address] May, [facility] [address] [id number] [address] [place] [address], [place] [address] Apr, [facility] [address] [id number] [address] [place] [address], [place] [address] Apr, [facility] [address] [id number] [address] [place] [address], [place] [address] March, [facility] [address] [id number] [address] [place] [address], [place] [address] March, [facility] [address] [id number] [address] [place] [address], [place] [address] March, [facility] [address] [id number] [address] [place] [address], [place] [address] March, [facility] [address] [id number] [address] [place] [address], [place] [address] Jan, [facility] [address] [id number] [address] [place] [address], [place] [address] Jan, [facility] [address] [id number] [address] [place] [address], [place] [address] Dec, [facility] [address] [id number] [address] [place] [address], [place] [address] Dec, [facility] [address] [id number] [address] [place] [address], [place] [address] Nov, [facility] [address] [id number] [address] [place] [address], [place] [address] Nov, [facility] [address] [id number] [address] [place] [address], [place] [address] Nov, [facility] [address] [id number] [address] [place] [address], [place] [address] Nov, [facility] [address] [id number] [address] [place] [address], [place] [address] Nov, [facility] [address] [id number] [address] [place] [address], [place] [address] Nov, [facility] [address] [id number] [address] [place] [address], [place] [address] Oct, [facility] [address] [id number] [address] [place] [address], [place] [address] Oct, [facility] [address] [id number] [address] [place] [address], [place] [address] Oct, [facility] [address] [id number] [address] [place] [address], [place] [address] Oct, [facility] [address] [id number] [address] [place] [address] Sep, [facility] [address] [id number] [address] [place] [address], [place] [address] Sep, [facility] [address] [id number] [address] [place] [address] Sep, [facility] [address] [id number] [address] [place] [address] Sep, [facility] [address] [id number] [address] [place] [address] Aug, [facility] [address] [id number] [address] [place] [address], [place] [address] Aug, [facility] [address] [id number] [address] [place] [address] Aug, [facility] [address] [id number] [address] [place] [address] Aug, [facility] [address] [id number] [address] [place] [address] Jul, [facility] [address] [id number] [address] [place] [address], [place] [address] Jun, [facility] [address] [id number] [address] [place] [address], [place] [address] Jun, [facility] [address] [id number] [address] [place] [address], [place] [address] Jun, [facility] [address] [id number] [address] [place] [address], [place] [address] Jun, [facility] [address] [id number] [address] [place] [address], [place] [address] Jun, [facility] [address] [id number] [address] [place] [address], [place] [address] May, [facility] [address] [id number] [address] [place] [address], [place] [address] Apr, [facility] [address] [id number] [address] [place] [address], [place] [address] Apr, [facility] [address] [id number] [address] [place] [address], [place] [address] March, [facility] [address] [id number] [address] [place] [address], [place] [address] March, [facility] [address] [id number] [address] [place] [address], [place] [address] March, [facility] [address] [id number] [address] [place] [address], [place] [address] March, [facility] [address] [id number] [address] [place] [address], [place] [address] March, [facility] [address] [id number] [address] [place] [address], [place] [address] Feb, [facility] [address] [id number] [address] [place] [address], [place] [address] Feb, [facility] [address] [id number] [facility] [place] [address] 27 Jan, 2013 [facility] [address] [id number] [address] [place] [address], [place] [address] 25 Jan, 2013 [facility] [address] [id number] [facility] [place] [address] 21 Jan, 2013 [facility] [address] [id number] [address] [place] [address], [place] [address] 15 Jan, 2013 [facility] [address] [id number] [address] [place] [address], [place] [address] 15 Jan, 2013 [facility] [address] [id number] [address] [place] [address], [place] [address] 14 Jan, 2013 [facility] [address] [id number] [address] [place] [address], [place] [address] 14 Jan, 2013 [facility] [address] [id number] [address] [place] [address], [place] [address] 13 Jan, 2013 [facility] [address] [id number] [address] [place] [address], [place] [address] 26 Dec, 2012 [facility] [address] [id number] [address] [place] [address], [place] [address] 18 Dec, 2012 [facility] [address] [id number] [address] [place] [address], [place] [address] 15 Dec, 2012 [facility] [address] [id number] [address] [place] [address], [place] [address] 15 Dec, 2012 [facility] [address] [id number] [address] [place] [address], [place] [address] 14 Dec, 2012 [facility] [address] [id number] [address] [place] [address], [place] [address] 13 Dec, 2012 [facility] [address] [id number] [address] [place] [address], [place] [address] 12 Dec, 2012 [facility] [address] [id number] [address] [place] [address] Dec, [facility] [address] [facility] [id number] [address] [place] [address] Nov, [facility] [address] [facility] [id number] [address] [place] [address] Nov, [facility] [address] [facility] [id number] [address] [place] [address] Nov, [facility] [address] [facility] [id number] [address] [place] [address] Nov, IMMUNIZATIONS No Known Immunizations SOCIAL HISTORY Never Assessed REASON FOR VISIT BP F/U -- alecia george, nedding refill on lorazepan PLAN OF CARE Activity Details Follow Up 3 Months Reason:Anxiety VITAL SIGNS Height 64 in 2017-10-14 Weight 102.0 lbs 2017-10-14 Temperature 97.6 degrees Fahrenheit 2017-10-14 BMI 17.51 kg/m2 2017-10-14 Blood pressure systolic 102 mmHg 2017-10-14 Blood pressure diastolic 66 mmHg 2017-10-14 MEDICATIONS Medication Instructions Dosage Frequency Start Date End Date Duration S tatus Lorazepam 0.5 MG Orally Once a day 1 tablet as needed 24h 28 days Active Multivitamin Adults - No t-Taking Vitamin D 1000 UNIT Orally 2 times a day 1 tablet 12h Active Calcium 600 mg 1 Capsule by Oral route 2 times per day 2 2 Jun, 2013 Active Vitamin C 500 MG Orally Once a day 1 tablet 24h Active Fluoxetine HCl 20 mg Orally once daily 1 capsule 24h 30 days Active RESULTS No Results PROCEDURES Procedure Date Ordered Result Body Site [facility] VISIT ESTABLISHED PATIENT Oct 14, 2017 INSTRUCTIONS MEDICATIONS ADMINISTERED No Known Medications [...]
--- OUTSIDE RECORDS SUMMARY | 2020-02-19 13:40 | XMS REPORT | Continuity of Care Document ---
Author Organization Unknown Address Unknown Phone Unavailable Allergies Active Description Code Type Severity Reaction Onset Reported/Identified Relationship to Patient Clinical Status Yes No Known Drug Allergies [id number] Drug Allergy Unknown N/A 05/16/2012 Yes neosporin Drug Allergy 11/24/2012 Yes penicillin Drug Allergy 11/24/2012 Yes alendronate sodium [id number] Drug Allergy Unknown N/A 06/02/2018 Yes bacitracin [id number] Drug Allerg y Unknown N/A 06/02/2018 Yes lactose [id number] Drug Allergy Unknown N/A 06/02/2018 Yes neomycin [id number] Drug Allergy Unknown N/A 06/02/2018 Yes Penicillins [id number] Drug Aller gy Unknown N/A 06/02/2018 Yes polymyxin B [id number] Drug Aller gy Unknown N/A 06/02/2018 Yes raloxifene [id number] Drug Allerg y Unknown leg swelling 06/02/2018 Medications There is no data. Problems Date Dx Coded Attending Type Code Diagnosis Diagnosed By 10/09/1150 KATHLEEN UREÑA APRN Ot F32 .9 MAJOR DEPRESSIVE DISORDER, SINGLE EPISOD 10/09/1150 KATHLEEN UREÑA APRN Ot M81 .0 AGE-RELATED OSTEOPOROSIS W/O CURRENT PAT 10/09/1150 KATHLEEN RUEÑA APRN Ot Z47 .1 AFTERCARE FOLLOWING JOINT REPLACEMENT HUGHES 10/09/1150 KATHLEEN UREÑA APRN Ot Z96.652 PRESENCE OF LEFT ARTIFICIAL KNEE JOINT 10/09/1153 KAREN MARY MD Ot M54.5 LOW BACK PAIN 10/09/1153 KAREN MARY MD Ot Z47.8 9 ENCOUNTER FOR OTHER ORTHOPEDIC AFTERCARE 10/09/1153 KAREN MARY MD Ot Z98.1 ARTHRODESIS STATUS 05/16/2012 Ot 789.09 ABD OMINAL PAIN, OTHER SPECIFIED SITE 05/16/2012 Ot 992.5 HEAT EXHAUSTION NOS 05/16/2012 Ot E000.8 OTH ER EXTERNAL CAUSE STATUS 05/16/2012 Ot E849.0 ACC IDENT IN HOME 05/16/2012 Ot E900.0 EXC ESSIVE HEAT: WEATHER 11/19/2012 300.02 AN GEN ANXIETY 11/19/2012 311 MO DEP RESS NOS 11/19/2012 MIKE PEREZ PSYD 300.02 AN GEN ANXIETY 11/19/2012 MIKE PEREZ PSYD 311 MO DEPRESS NOS 11/19/2012 300.02 AN GEN ANXIETY 11/19/2012 311 MO DEP RESS NOS 11/19/2012 DIGNA SANCHEZ MD 300.0 2 AN GEN ANXIETY 11/19/2012 DIGNA SANCHEZ MD 311 MO DEPRESS NOS 11/19/2012 300.02 AN GEN ANXIETY 11/19/2012 311 MO DEP RESS NOS 11/19/2012 ANGE PARNELL MD 300.02 AN GEN ANXIETY 11/19/2012 ANGE PARNELL MD 311 MO DEPRESS NOS 11/19/2012 300.02 AN GEN ANXIETY 11/19/2012 311 MO DEP RESS NOS 11/19/2012 MIKE PEREZ PSYD 300.02 AN GEN ANXIETY 11/19/2012 MIKE PEREZ PSYD 311 MO DEPRESS NOS 11/19/2012 300.02 AN GEN ANXIETY 11/19/2012 311 MO DEP RESS NOS 11/19/2012 300.02 AN GEN ANXIETY 11/19/2012 311 MO DEP RESS NOS 11/19/2012 300.02 AN GEN ANXIETY 11/19/2012 311 MO DEP RESS NOS 11/19/2012 ANGE PARNELL MD 300.02 AN GEN ANXIETY 11/19/2012 ANGE PARNELL MD 311 MO DEPRESS NOS 11/19/2012 MIKE PEREZ PSYD L 300.02 AN GEN ANXIETY 11/19/2012 MIKE PEREZ PSYD 311 MO DEPRESS NOS 11/19/2012 AURELIA SPIVEY DO 300.02 AN GEN ANXIETY 11/19/2012 AURELIA SPIVEY DO 311 MO DEPRESS NOS 11/19/2012 DIGNA SANCHZE MD 300.0 2 AN GEN ANXIETY 11/19/2012 DIGNA SANCHEZ MD 311 MO DEPRESS NOS 11/19/2012 DIGNA SANCHEZ MD 300.0 2 AN GEN ANXIETY 11/19/2012 DIGNA SANCHEZ MD 311 MO DEPRESS NOS 11/19/2012 ANGE PARNELL MD 300.02 AN GEN ANXIETY 11/19/2012 ANGE PARNELL MD 311 MO DEPRESS NOS 11/19/2012 SPIVEY DO, AURELIA K 300.02 AN GEN ANXIETY 11/19/2012 SPIVEY DO, AURELIA K 311 MO DEPRESS NOS 11/19/2012 MADL SHEET ROCK LAYER, ESTELLA L 300 .02 AN GEN ANXIETY 11/19/2012 MADL SHEET ROCK LAYER, ESTELLA L 311 MO DEPRESS NOS 11/19/2012 SPIVEY DO, AURELIA K 300.02 AN GEN ANXIETY 11/19/2012 SPIVEY DO, AURELIA K 311 MO DEPRESS NOS 11/19/2012 WHITE DDS, KALYAN J 300.02 AN GEN ANXIETY 11/19/2012 WHITE DDS, KALYAN J 31 1 MO DEPRESS NOS 11/19/2012 MADL SHEET ROCK LAYER, ESTELLA L 300 .02 AN GEN ANXIETY 11/19/2012 MADL SHEET ROCK LAYER, ESTELLA L 311 MO DEPRESS NOS 11/24/2012 300.00 anxiety 11/24/2012 303.90 ALC OHOL DEPENDENCE (ALCOHOLISM) 11/24/2012 305.1 CORTEZ SIDNEY DEPENDENCE 11/24/2012 401.1 ESSE NTIAL HYPERTENSION BENIGN 11/24/2012 737.30 KYP HOSCOLIOSIS 11/24/2012 MIKE PEREZ PSYD L 300.00 anxiety 11/24/2012 MIKE PEREZ PSYD L 303.90 ALCOHOL DEPENDENCE (ALCOHOLISM) 11/24/2012 MIKE PEREZ PSYD L 305.1 NICOTINE DEPENDENCE 11/24/2012 MIKE PEREZ PSYD L 401.1 ESSENTIAL HYPERTENSION BENIGN 11/24/2012 MIKE PEREZ PSYD L 737.30 KYPHOSCOLIOSIS 11/24/2012 300.00 anxiety 11/24/2012 303.90 ALC OHOL DEPENDENCE (ALCOHOLISM) 11/24/2012 305.1 CORTEZ SIDNEY DEPENDENCE 11/24/2012 401.1 ESSE NTIAL HYPERTENSION BENIGN 11/24/2012 737.30 KYP HOSCOLIOSIS 11/24/2012 DIGNA SANCHEZ MD 300.0 0 anxiety 11/24/2012 DIGNA SANCHEZ MD 303.9 0 ALCOHOL DEPENDENCE (ALCOHOLISM) 11/24/2012 DIGNA SANCHEZ MD 305.1 NICOTINE DEPENDENCE 11/24/2012 DIGNA SANCHEZ MD 401.1 ESSENTIAL HYPERTENSION BENIGN 11/24/2012 DIGNA SANCHEZ MD 737.3 0 KYPHOSCOLIOSIS 11/24/2012 300.00 anxiety 11/24/2012 303.90 ALC OHOL DEPENDENCE (ALCOHOLISM) 11/24/2012 305.1 CORTEZ SIDNEY DEPENDENCE 11/24/2012 401.1 ESSE NTIAL HYPERTENSION BENIGN 11/24/2012 737.30 KYP HOSCOLIOSIS 11/24/2012 ANGE PARNELL MD 300.00 anxiety 11/24/2012 ANGE PARNELL MD 303.90 ALCOHOL DEPENDENCE (ALCOHOLISM) 11/24/2012 ANGE PARNELL MD 305.1 NICOTINE DEPENDENCE 11/24/2012 ANGE PARNELL MD 401.1 ESSENTIAL HYPERTENSION BENIGN 11/24/2012 ANGE PARNELL MD 737.30 KYPHOSCOLIOSIS 11/24/2012 300.00 anxiety 11/24/2012 303.90 ALC OHOL DEPENDENCE (ALCOHOLISM) 11/24/2012 305.1 CORTEZ SIDNEY DEPENDENCE 11/24/2012 401.1 ESSE NTIAL HYPERTENSION BENIGN 11/24/2012 737.30 KYP HOSCOLIOSIS 11/24/2012 MIKE PEREZ PSYD L 300.00 anxiety 11/24/2012 MIKE PEREZ PSYD 303.90 ALCOHOL DEPENDENCE (ALCOHOLISM) 11/24/2012 MIKE PEREZ PSYD L 305.1 NICOTINE DEPENDENCE 11/24/2012 MIKE PEREZ PSYD L 401.1 ESSENTIAL HYPERTENSION BENIGN 11/24/2012 MIKE PEREZ PSYD 737.30 KYPHOSCOLIOSIS 11/24/2012 300.00 anxiety 11/24/2012 303.90 ALC OHOL DEPENDENCE (ALCOHOLISM) 11/24/2012 305.1 CORTEZ SIDNEY DEPENDENCE 11/24/2012 401.1 ESSE NTIAL HYPERTENSION BENIGN 11/24/2012 737.30 KYP HOSCOLIOSIS 11/24/2012 300.00 anxiety 11/24/2012 303.90 ALC OHOL DEPENDENCE (ALCOHOLISM) 11/24/2012 305.1 CORTEZ SIDNEY DEPENDENCE 11/24/2012 401.1 ESSE NTIAL HYPERTENSION BENIGN 11/24/2012 737.30 KYP HOSCOLIOSIS 11/24/2012 300.00 anxiety 11/24/2012 303.90 ALC OHOL DEPENDENCE (ALCOHOLISM) 11/24/2012 305.1 CORTEZ SIDNEY DEPENDENCE 11/24/2012 401.1 ESSE NTIAL HYPERTENSION BENIGN 11/24/2012 737.30 KYP HOSCOLIOSIS 11/24/2012 ANGE PARNELL MD 300.00 anxiety 11/24/2012 ANGE PARNELL MD 303.90 ALCOHOL DEPENDENCE (ALCOHOLISM) 11/24/2012 ANGE PARNELL MD 305.1 NICOTINE DEPENDENCE 11/24/2012 ANGE PARNELL MD 401.1 ESSENTIAL HYPERTENSION BENIGN 11/24/2012 ANGE PARNELL MD 737.30 KYPHOSCOLIOSIS 11/24/2012 MIKE PEREZ PSYD ANN L 300.00 anxiety 11/24/2012 MIKE PEREZ PSYD ANN L 303.90 ALCOHOL DEPENDENCE (ALCOHOLISM) 11/24/2012 MIKE PEREZ PSYD ANN L 305.1 NICOTINE DEPENDENCE 11/24/2012 MIKE PEREZ PSYD ANN L 401.1 ESSENTIAL HYPERTENSION BENIGN 11/24/2012 MIKE PEREZ PSYD ANN L 737.30 KYPHOSCOLIOSIS 11/24/2012 SPIVEY DO AURELIA K 300.00 anxiety 11/24/2012 PATRIC HEREDIA AURELIA K 303.90 ALCOHOL DEPENDENCE (ALCOHOLISM) 11/24/2012 PATRIC HEREDIA AURELIA K 305.1 NICOTINE DEPENDENCE 11/24/2012 PATRIC HEREDIA AURELIA K 401.1 ESSENTIAL HYPERTENSION BENIGN 11/24/2012 PATRIC HEREDIA AURELIA K 737.30 KYPHOSCOLIOSIS 11/24/2012 DIGNA SANCHEZ MD 300.0 0 anxiety 11/24/2012 DIGNA SANCHEZ MD 303.9 0 ALCOHOL DEPENDENCE (ALCOHOLISM) 11/24/2012 DIGNA SANCHEZ MD 305.1 NICOTINE DEPENDENCE 11/24/2012 DIGNA SANCHEZ MD 401.1 ESSENTIAL HYPERTENSION BENIGN 11/24/2012 DIGNA SANCHEZ MD 737.3 0 KYPHOSCOLIOSIS 11/24/2012 DIGNA SANCHEZ MD 300.0 0 anxiety 11/24/2012 DIGNA SANCHEZ MD 303.9 0 ALCOHOL DEPENDENCE (ALCOHOLISM) 11/24/2012 DIGNA SANCHEZ MD 305.1 NICOTINE DEPENDENCE 11/24/2012 DIGNA SANCHEZ MD 401.1 ESSENTIAL HYPERTENSION BENIGN 11/24/2012 DIGNA SANCHEZ MD 737.3 0 KYPHOSCOLIOSIS 11/24/2012 ANGE PARNELL MD 300.00 anxiety 11/24/2012 ANGE PARNELL MD 303.90 ALCOHOL DEPENDENCE (ALCOHOLISM) 11/24/2012 ANGE PARNELL MD 305.1 NICOTINE DEPENDENCE 11/24/2012 ANGE PARNELL MD 401.1 ESSENTIAL HYPERTENSION BENIGN 11/24/2012 ANGE PARNELL MD 737.30 KYPHOSCOLIOSIS 11/24/2012 SPIVEY DO, AURELIA K 300.00 anxiety 11/24/2012 SPIVEY DO, AURELIA K 303.90 ALCOHOL DEPENDENCE (ALCOHOLISM) 11/24/2012 SPIVEY DO, AURELIA K 305.1 NICOTINE DEPENDENCE 11/24/2012 SPIVEY DO, AURELIA K 401.1 ESSENTIAL HYPERTENSION BENIGN 11/24/2012 SPIVEY DO, AURELIA K 737.30 KYPHOSCOLIOSIS 11/24/2012 MADL SHEET ROCK LAYER, ESTELLA L 300 .00 anxiety 11/24/2012 MADL SHEET ROCK LAYER, ESTELLA L 303 .90 ALCOHOL DEPENDENCE (ALCOHOLISM) 11/24/2012 MADL SHEET ROCK LAYER, ESTELLA L 305 .1 NICOTINE DEPENDENCE 11/24/2012 MADL SHEET ROCK LAYER, ESTELLA L 401 .1 ESSENTIAL HYPERTENSION BENIGN 11/24/2012 MADL SHEET ROCK LAYER, ESTELLA L 737 .30 KYPHOSCOLIOSIS 11/24/2012 SPIVEY DO, AURELIA K 300.00 anxiety 11/24/2012 SPIVEY DO, AURELIA K 303.90 ALCOHOL DEPENDENCE (ALCOHOLISM) 11/24/2012 SPIVEY DO, AURELIA K 305.1 NICOTINE DEPENDENCE 11/24/2012 SPIVEY DO, AURELIA K 401.1 ESSENTIAL HYPERTENSION BENIGN 11/24/2012 SPIVEY DO, AURELIA K 737.30 KYPHOSCOLIOSIS 11/24/2012 WHITE DDS, KALYAN J 300.00 anxiety 11/24/2012 WHITE DDS, KALYAN J 303.90 ALCOHOL DEPENDENCE (ALCOHOLISM) 11/24/2012 WHITE DDS, KALYAN J 30 5.1 NICOTINE DEPENDENCE 11/24/2012 WHITE DDS, KALYAN J 40 1.1 ESSENTIAL HYPERTENSION BENIGN 11/24/2012 WHITE DDS, KALYAN J 737.30 KYPHOSCOLIOSIS 11/24/2012 MADL SHEET ROCK LAYER, ESTELLA L 300 .00 anxiety 11/24/2012 ESTELLA SOTOMAYOR APRN L 303 .90 ALCOHOL DEPENDENCE (ALCOHOLISM) 11/24/2012 ABDULLAHI SOTOMAYOR APRNA L 305 .1 NICOTINE DEPENDENCE 11/24/2012 ABDULLAHI SOTOMAYOR APRNA L 401 .1 ESSENTIAL HYPERTENSION BENIGN 11/24/2012 ABDULLAHI SOTOMAYOR APRNA L 737 .30 KYPHOSCOLIOSIS 12/22/2012 276.1 HYPO NATREMIA 12/22/2012 DIGNA SANCHEZ MD 276.1 HYPONATREMIA 12/22/2012 276.1 HYPO NATREMIA 12/22/2012 ANGE PARNELL MD 276.1 HYPONATREMIA 12/22/2012 276.1 HYPO NATREMIA 12/22/2012 MIKE PEREZ PSYD 276.1 HYPONATREMIA 12/22/2012 276.1 HYPO NATREMIA 12/22/2012 276.1 HYPO NATREMIA 12/22/2012 276.1 HYPO NATREMIA 12/22/2012 ANGE PARNELL MD 276.1 HYPONATREMIA 12/22/2012 MIKE PEREZ PSYD L 276.1 HYPONATREMIA 12/22/2012 AURELIA SPIVEY DO K 276.1 HYPONATREMIA 12/22/2012 DIGNA SANCHEZ MD 276.1 HYPONATREMIA 12/22/2012 DIGNA SANCHEZ MD 276.1 HYPONATREMIA 12/22/2012 ANGE PARNELL MD 276.1 HYPONATREMIA 12/22/2012 AURELIA SPIVEY DO K 276.1 HYPONATREMIA 12/22/2012 СВЕТЛАНА RECINOS ESTELLA L 276 .1 HYPONATREMIA 12/22/2012 SPIVEY AGUSTIN HEREDIAA K 276.1 HYPONATREMIA 12/22/2012 QUIRINO RODGERS, KALYAN Whitney 27 6.1 HYPONATREMIA 12/22/2012 СВЕТЛАНА SHEET ROCK LAYERFAITHESTELLA L 276 .1 HYPONATREMIA 12/28/2012 Ot 724.5 BACK ACHE NOS 12/28/2012 Ot 737.30 IDI OPATHIC SCOLIOSIS 12/28/2012 Ot V57.1 PHYS ICAL THERAPY NEC 01/05/2013 296.32 MO DEPRESSIVE RECURRENT MODERATE 01/05/2013 ANGE PARNELL MD 296.32 MO DEPRESSIVE RECURRENT MODERATE 01/05/2013 296.32 MO DEPRESSIVE RECURRENT MODERATE 01/05/2013 MCCLEEARY PSYD, RADHA L 296.32 MO DEPRESSIVE RECURRENT MODERATE 01/05/2013 296.32 MO DEPRESSIVE RECURRENT MODERATE 01/05/2013 296.32 MO DEPRESSIVE RECURRENT MODERATE 01/05/2013 296.32 MO DEPRESSIVE RECURRENT MODERATE 01/05/2013 ANGE PARNELL MD 296.32 MO DEPRESSIVE RECURRENT MODERATE 01/05/2013 MIKE PEREZ PSYD L 296.32 MO DEPRESSIVE RECURRENT MODERATE 01/05/2013 SPIVEY DO AURELIA K 296.32 MO DEPRESSIVE RECURRENT MODERATE 01/05/2013 DIGNA SANCHEZ MD 296.3 2 MO DEPRESSIVE RECURRENT MODERATE 01/05/2013 DIGNA SANCHEZ MD 296.3 2 MO DEPRESSIVE RECURRENT MODERATE 01/05/2013 ANGE PARNELL MD 296.32 MO DEPRESSIVE RECURRENT MODERATE 01/05/2013 SPIVEY DO AURELIA K 296.32 MO DEPRESSIVE RECURRENT MODERATE 01/05/2013 MADL SHEET ROCK LAYER, ESTELLA L 296 .32 MO DEPRESSIVE RECURRENT MODERATE 01/05/2013 SPIVEY DO AURELIA K 296.32 MO DEPRESSIVE RECURRENT MODERATE 01/05/2013 QUIRINO GATESSKALYAN 296.32 MO DEPRESSIVE RECURRENT MODERATE 01/05/2013 MADL SHEET ROCK LAYER, ESTELLA L 296 .32 MO DEPRESSIVE RECURRENT MODERATE 02/01/2013 MIKE PEREZ PSYD L 724.2 LUMBAGO/ LOW BACK PAIN 02/01/2013 724.2 LUMB AGO/ LOW BACK PAIN 02/01/2013 724.2 lowe r back pain 02/01/2013 724.2 lowe r back pain 02/01/2013 ANGE PARNELL MD 724.2 lower back pain 02/01/2013 MIKE PEREZ PSYD L 724.2 lower back pain 02/01/2013 SPIVEY DO AURELIA K 724.2 lower back pain 02/01/2013 DIGNA SANCHEZ MD 724.2 lower back pain 02/01/2013 DIGNA SANCHEZ MD 724.2 lower back pain 02/01/2013 ANGE PARNELL MD 724.2 lower back pain 02/01/2013 SPIVEY DO AURELIA K 724.2 lower back pain 02/01/2013 MADL SHEET ROCK LAYER, ESTELLA L 724 .2 lower back pain 02/01/2013 AURELIA SPIVEY DO K 724.2 lower back pain 02/01/2013 QUIRINO RODGERS, KALYAN J 72 4.2 lower back pain 02/01/2013 MADESTELLA Luna APRN L 724 .2 lower back pain 03/04/2013 296.31 MO DEPRESSIVE RECURRENT MILD 03/04/2013 296.31 MYRNA OR DEPRESSION RECURRENT MILD 03/04/2013 296.31 MYRNA OR DEPRESSION RECURRENT MILD 03/04/2013 ANGE PARNELL MD 296.31 MAJOR DEPRESSION RECURRENT MILD 03/04/2013 MIKE PEREZ PSYD 296.31 MAJOR DEPRESSION RECURRENT MILD 03/04/2013 AURELIA SPIVEY DO K 296.31 MAJOR DEPRESSION RECURRENT MILD 03/04/2013 DIGNA SANCHEZ MD 296.3 1 MAJOR DEPRESSION RECURRENT MILD 03/04/2013 DIGNA SANCHEZ MD 296.3 1 MAJOR DEPRESSION RECURRENT MILD 03/04/2013 ANGE PARNELL MD 296.31 MAJOR DEPRESSION RECURRENT MILD 03/04/2013 AURELIA SPIVEY DO K 296.31 MAJOR DEPRESSION RECURRENT MILD 03/04/2013 ESTELLA SOTOMAYOR APRN L 296 .31 MAJOR DEPRESSION RECURRENT MILD 03/04/2013 AURELIA SPIVEY DO K 296.31 MAJOR DEPRESSION RECURRENT MILD 03/04/2013 KALYAN WIN DDS 296.31 MAJOR DEPRESSION RECURRENT MILD 03/04/2013 ESTELLA SOTOMAYOR APRN L 296 .31 MAJOR DEPRESSION RECURRENT MILD 03/16/2013 ANGE PARNELL MD Ot 724.2 LUMBAGO 03/16/2013 ANGE PARNELL MD Ot 737.30 IDIOPATHIC SCOLIOSIS 03/16/2013 ANGE PARNELL MD Ot V57.1 PHYSICAL THERAPY NEC 09/02/2013 MIKE PEREZ PSYD 296.36 MO DEPRESSIVE RECURRENT IN FULL REMISSION 09/02/2013 AURELIA SPIVEY DO K 296.36 MO DEPRESSIVE RECURRENT IN FULL REMISSION 09/02/2013 DIGNA SANCHEZ MD 296.3 6 MO DEPRESSIVE RECURRENT IN FULL REMISSION 09/02/2013 DIGNA SANCHEZ MD 296.3 6 MO DEPRESSIVE RECURRENT IN FULL REMISSION 09/02/2013 ANGE PARNELL MD 296.36 MO DEPRESSIVE RECURRENT IN FULL REMISSION 09/02/2013 AURELIA SPIVEY DO K 296.36 MO DEPRESSIVE RECURRENT IN FULL REMISSION 09/02/2013 NEMESIO SOTOMAYOR APRNNYA L 296 .36 MO DEPRESSIVE RECURRENT IN FULL REMISSION 09/02/2013 SPIVEY DO AURELIA K 296.36 MO DEPRESSIVE RECURRENT IN FULL REMISSION 09/02/2013 KALYAN WIN DDS 296.36 MO DEPRESSIVE RECURRENT IN FULL REMISSION 09/02/2013 MADL SHEET ROCK LAYER, ESTELLA L 296 .36 MO DEPRESSIVE RECURRENT IN FULL REMISSION 09/07/2013 SPIVEY DO AURELIA K 388.70 OTALGIA UNSPECIFIED 09/07/2013 PATRIC HEREDIA AURELIA K 461.9 SINUSITIS ACUTE 09/07/2013 DIGNA SANCHEZ MD 388.7 0 OTALGIA UNSPECIFIED 09/07/2013 DIGNA SANCHEZ MD 461.9 SINUSITIS ACUTE 09/07/2013 DIGNA SANCHEZ MD 388.7 0 OTALGIA UNSPECIFIED 09/07/2013 DIGNA SANCHEZ MD 461.9 SINUSITIS ACUTE 09/07/2013 ANGE PARNELL MD 388.70 OTALGIA UNSPECIFIED 09/07/2013 ANGE PARNELL MD 461.9 SINUSITIS ACUTE 09/07/2013 SPIVEY DO AURELIA K 388.70 OTALGIA UNSPECIFIED 09/07/2013 SPIVEY DO AURELIA K 461.9 SINUSITIS ACUTE 09/07/2013 MADL SHEET ROCK LAYER, ESTELLA L 388 .70 OTALGIA UNSPECIFIED 09/07/2013 MADL SHEET ROCK LAYER, ESTELLA L 461 .9 SINUSITIS ACUTE 09/07/2013 SPIVEY DO AURELIA K 388.70 OTALGIA UNSPECIFIED 09/07/2013 SPIVEY DO AURELIA K 461.9 SINUSITIS ACUTE 09/07/2013 KALYAN WIN DDS 388.70 OTALGIA UNSPECIFIED 09/07/2013 KALYAN WIN DDS 46 1.9 SINUSITIS ACUTE 09/07/2013 MADL SHEET ROCK LAYER, ESTELLA L 388 .70 OTALGIA UNSPECIFIED 09/07/2013 MADL SHEET ROCK LAYER, ESTELLA L 461 .9 SINUSITIS ACUTE 11/05/2013 DIGNA SANCHEZ MD 364.3 UNSPECIFIED IRIDOCYCLITIS 11/05/2013 DIGNA SANCHEZ MD 364.3 UNSPECIFIED IRIDOCYCLITIS 11/05/2013 ANGE PARNELL MD 364.3 UNSPECIFIED IRIDOCYCLITIS 11/05/2013 SPIVEY AURELIA HEREDIA K 364.3 UNSPECIFIED IRIDOCYCLITIS 11/05/2013 ESTELLA SOTOMAYOR APRN 364 .3 UNSPECIFIED IRIDOCYCLITIS 11/05/2013 PATRIC HEREDIAAURELIA K 364.3 UNSPECIFIED IRIDOCYCLITIS 11/05/2013 QUIRINO RODGERS, KALYAN J 36 4.3 UNSPECIFIED IRIDOCYCLITIS 11/05/2013 ESTELLA SOTOMAYOR APRN 364 .3 UNSPECIFIED IRIDOCYCLITIS 12/17/2013 ANGE PARNELL MD 733.00 OSTEOPOROSIS UNSPECIFIED 12/17/2013 AURELIA SPIVEY DO K 733.00 OSTEOPOROSIS UNSPECIFIED 12/17/2013 ESTELLA SOTOMAYOR APRN 733 .00 OSTEOPOROSIS UNSPECIFIED 12/17/2013 PATRIC AURELIA HEREDIA K 733.00 OSTEOPOROSIS UNSPECIFIED 12/17/2013 QUIRINO RODGERS, KALYAN Whitney 733.00 OSTEOPOROSIS UNSPECIFIED 12/17/2013 ESTELLA SOTOMAYOR APRN 733 .00 OSTEOPOROSIS UNSPECIFIED 02/09/2015 HUSEYIN SOLIMAN APRN Ot 560.32 FECAL IMPACTION 02/09/2015 HUSEYIN SOLIMAN APRN Ot 564.00 UNSPEC CONSTIPATION 02/09/2015 ANGE PARNELL MD Ot 793.82 02/09/2015 ANGE PARNELL MD, Ot V76.12 02/09/2015 ANGE PARNELL MD Ot 793.80 02/09/2015 ANGE PARNELL MD Ot 276.1 02/09/2015 ANGE PARNELL MD Ot 733.00 02/09/2015 ANGE PARNELL MD Ot 737.30 02/13/2015 ESTELLA SOTOMAYOR APRN V58 .69 LONG-TERM (CURRENT) USE OF OTHER MEDICATIONS 01/22/2017 ANGE PARNELL MD Ot 793.82 INCONCLUSIVE MAMMOGRAM 01/22/2017 ANGE PARNELL MD Ot V76.12 OTH SCREEN MAMMO-MALIGN NEOPLASM OF DOMINIK 01/22/2017 ANGE PARNELL MD Ot 793.80 UNSPEC ABNORMAL MAMMOGRAM 01/22/2017 ANGE PARNELL MD Ot 276.1 HYPOSMOLALITY 01/22/2017 PARMJIT BUCK, ANGE Lopez Ot 733.00 OSTEOPOROSIS NOS 01/22/2017 ANGE PARNELL MD Ot 737.30 IDIOPATHIC SCOLIOSIS 01/23/2017 MADL, ESTELLA L [employer] Ot M25.551 PAIN IN RIGHT HIP 01/23/2017 MADL, ESTELLA L [employer] Ot M25.552 PAIN IN LEFT HIP 01/23/2017 MADL, ESTELLA L [employer] Ot M41 .9 SCOLIOSIS, UNSPECIFIED 01/23/2017 MADL, ESTELLA L [employer] Ot 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 01/23/2017 MADL, ESTELLA L [employer] Ot R25 .1 TREMOR, UNSPECIFIED 02/12/2017 MADL, ESTELLA L [employer] Ot M25.551 PAIN IN RIGHT HIP 02/12/2017 MADL, ESTELLA L [employer] Ot M25.552 PAIN IN LEFT HIP 02/12/2017 MADL, ESTELLA L [employer] Ot M41 .9 SCOLIOSIS, UNSPECIFIED 02/12/2017 MADL, ESTELLA L [employer] Ot 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 02/12/2017 MADL, ESTELLA L [employer] Ot R25 .1 TREMOR, UNSPECIFIED 03/06/2017 KAREN MARY MD Ot M41.3 4 THORACOGENIC SCOLIOSIS, THORACIC REGION 03/06/2017 KAREN MARY MD Ot M47.8 14 SPONDYLOSIS W/O MYELOPATHY OR RADICULOPA 03/06/2017 KAREN MARY MD Ot M47.8 16 SPONDYLOSIS W/O MYELOPATHY OR RADICULOPA 03/06/2017 KAREN MARY MD Ot 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 03/06/2017 KAREN MARY MD Ot M41.3 4 THORACOGENIC SCOLIOSIS, THORACIC REGION 03/06/2017 KARNE MARY MD Ot M47.8 14 SPONDYLOSIS W/O MYELOPATHY OR RADICULOPA 03/06/2017 KAREN MARY MD Ot M47.8 16 SPONDYLOSIS W/O MYELOPATHY OR RADICULOPA 03/06/2017 KAREN MARY MD Ot 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 03/27/2017 KAREN MARY MD Ot M41.8 5 OTHER FORMS OF SCOLIOSIS, THORACOLUMBAR 03/27/2017 KAREN MARY MD Ot M47.8 12 SPONDYLOSIS W/O MYELOPATHY OR RADICULOPA 03/27/2017 KAREN MARY MD Ot M48.0 6 SPINAL STENOSIS, LUMBAR REGION 03/27/2017 KAREN MARY MD Ot 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, 03/28/2017 KAREN MARY MD Ot M41.3 4 THORACOGENIC SCOLIOSIS, THORACIC REGION 03/28/2017 KAREN MARY MD Ot M47.8 14 SPONDYLOSIS W/O MYELOPATHY OR RADICULOPA 03/28/2017 KAREN MARY MD Ot M47.8 16 SPONDYLOSIS W/O MYELOPATHY OR RADICULOPA 03/28/2017 KAREN MARY MD Ot 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 04/02/2017 ANGE PARNELL MD Ot 793.82 INCONCLUSIVE MAMMOGRAM 04/02/2017 ANGE PARNELL MD Ot V76.12 OTH SCREEN MAMMO-MALIGN NEOPLASM OF DOMINIK 04/02/2017 ANGE PARNELL MD Ot 793.80 UNSPEC ABNORMAL MAMMOGRAM 04/02/2017 ANGE PARNELL MD Ot 276.1 HYPOSMOLALITY 04/02/2017 ANGE PARNELL MD Ot 733.00 OSTEOPOROSIS NOS 04/02/2017 ANGE PARNELL MD Ot 737.30 IDIOPATHIC SCOLIOSIS 04/02/2017 ABDULLAHI [employer] Ot M25.551 PAIN IN RIGHT HIP 04/02/2017 ABDULLAHI [employer] Ot M25.552 PAIN IN LEFT HIP 04/02/2017 ESTELLA [employer] Ot M41 .9 SCOLIOSIS, UNSPECIFIED 04/02/2017 ESTELLA [employer] Ot 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 04/02/2017 ESTELLA [employer] Ot R25 .1 TREMOR, UNSPECIFIED 04/02/2017 KAREN MARY MD Ot M41.3 4 THORACOGENIC SCOLIOSIS, THORACIC REGION 04/02/2017 KAREN MARY MD Ot M47.8 14 SPONDYLOSIS W/O MYELOPATHY OR RADICULOPA 04/02/2017 KAREN MARY MD Ot M47.8 16 SPONDYLOSIS W/O MYELOPATHY OR RADICULOPA 04/02/2017 KAREN MARY MD Ot 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 04/02/2017 KAREN MARY MD Ot M41.8 5 OTHER FORMS OF SCOLIOSIS, THORACOLUMBAR 04/02/2017 KAREN MARY MD Ot M47.8 12 SPONDYLOSIS W/O MYELOPATHY OR RADICULOPA 04/02/2017 KAREN MARY MD Ot M48.0 6 SPINAL STENOSIS, LUMBAR REGION 04/02/2017 KAREN MARY MD Ot 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, 04/02/2017 MADL, [employer] Ot M25.551 PAIN IN RIGHT HIP 04/02/2017 MADL, [employer] Ot M25.552 PAIN IN LEFT HIP 04/02/2017 MADL, [employer] Ot M41 .9 SCOLIOSIS, UNSPECIFIED 04/02/2017 [employer]ADL, [employer] Ot 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 04/02/2017 MADL, [employer] Ot R25 .1 TREMOR, UNSPECIFIED 04/03/2017 KAREN MARY MD Ot M41.9 SCOLIOSIS, UNSPECIFIED 04/03/2017 KAREN MARY MD Ot Z01.8 12 ENCOUNTER FOR PREPROCEDURAL LABORATORY E 04/03/2017 KAREN MARY MD Ot Z11.2 ENCOUNTER FOR SCREENING FOR OTHER BACTER 04/15/2017 KAREN MARY MD Ot D62 ACUTE POSTHEMORRHAGIC ANEMIA 04/15/2017 KAREN MARY MD Ot E87.1 HYPO-OSMOLALITY AND HYPONATREMIA 04/15/2017 KAREN MARY MD Ot E87.6 HYPOKALEMIA 04/15/2017 KAREN MARY MD Ot F41.9 ANXIETY DISORDER, UNSPECIFIED 04/15/2017 KAREN MARY MD Ot I10 ESSENTIAL (PRIMARY) HYPERTENSION 04/15/2017 KAREN MARY MD Ot I95.9 HYPOTENSION, UNSPECIFIED 04/15/2017 KAREN MARY MD Ot M41.9 SCOLIOSIS, UNSPECIFIED 04/15/2017 KAREN MARY MD Ot R25.1 TREMOR, UNSPECIFIED 04/15/2017 KAREN MARY MD Ot R33.9 RETENTION OF URINE, UNSPECIFIED 04/15/2017 KAREN MARY MD Ot R55 SYNCOPE AND COLLAPSE 04/15/2017 MADL, [employer] Ot M25.551 PAIN IN RIGHT HIP 04/15/2017 MADL, [employer] Ot M25.552 PAIN IN LEFT HIP 04/15/2017 MADL [employer] Ot M41 .9 SCOLIOSIS, UNSPECIFIED 04/15/2017 SHRUTHIL [employer] Ot 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 04/15/2017 СВЕТЛАНА [employer] Ot R25 .1 TREMOR, UNSPECIFIED 04/15/2017 KAREN MARY MD Ot M41.3 4 THORACOGENIC SCOLIOSIS, THORACIC REGION 04/15/2017 KARNE MARY MD Ot M47.8 14 SPONDYLOSIS W/O MYELOPATHY OR RADICULOPA 04/15/2017 KAREN MARY MD Ot M47.8 16 SPONDYLOSIS W/O MYELOPATHY OR RADICULOPA 04/15/2017 KAREN MARY MD Ot 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 04/15/2017 ANGE PARNELL MD Ot 793.82 INCONCLUSIVE MAMMOGRAM 04/15/2017 ANGE PARNELL MD Ot V76.12 OTH SCREEN MAMMO-MALIGN NEOPLASM OF DOMINIK 04/15/2017 ANGE PARNELL MD Ot 793.80 UNSPEC ABNORMAL MAMMOGRAM 04/15/2017 ANGE PARNELL MD Ot 276.1 HYPOSMOLALITY 04/15/2017 ANGE PARNELL MD Ot 733.00 OSTEOPOROSIS NOS 04/15/2017 ANGE PARNELL MD Ot 737.30 IDIOPATHIC SCOLIOSIS 04/15/2017 [employer]LLA [employer] Ot M25.551 PAIN IN RIGHT HIP 04/15/2017 ESTELLA [employer] Ot M25.552 PAIN IN LEFT HIP 04/15/2017 ESTELLA [employer] Ot M41 .9 SCOLIOSIS, UNSPECIFIED 04/15/2017 [employer]LLA [employer] Ot 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 04/15/2017 [employer]ELLA [employer] Ot R25 .1 TREMOR, UNSPECIFIED 04/15/2017 KAREN MARY MD Ot M41.3 4 THORACOGENIC SCOLIOSIS, THORACIC REGION 04/15/2017 KAREN MARY MD Ot M47.8 14 SPONDYLOSIS W/O MYELOPATHY OR RADICULOPA 04/15/2017 KAREN MARY MD Ot M47.8 16 SPONDYLOSIS W/O MYELOPATHY OR RADICULOPA 04/15/2017 KAREN MARY MD Ot 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 04/15/2017 KAREN MARY MD Ot M41.8 5 OTHER FORMS OF SCOLIOSIS, THORACOLUMBAR 04/15/2017 KAREN MARY MD Ot M47.8 12 SPONDYLOSIS W/O MYELOPATHY OR RADICULOPA 04/15/2017 KAREN MARY MD Ot M48.0 6 SPINAL STENOSIS, LUMBAR REGION 04/15/2017 KAREN MARY MD Ot 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, 04/15/2017 KAREN MARY MD Ot M41.8 5 OTHER FORMS OF SCOLIOSIS, THORACOLUMBAR 04/15/2017 KAREN MARY MD Ot M47.8 12 SPONDYLOSIS W/O MYELOPATHY OR RADICULOPA 04/15/2017 KAREN MARY MD Ot M48.0 6 SPINAL STENOSIS, LUMBAR REGION 04/15/2017 KAERN MARY MD Ot 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, 04/23/2017 EMILIE BUCK, ISABELLE Joel Ot D64.9 ANEMIA, UNSPECIFIED 04/23/2017 EMILIE BUCK, ISABELLE Joel Ot 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 04/23/2017 EMILIE BUCK, ISABELLE E Ot I10 ESSENTIAL (PRIMARY) HYPERTENSION 04/23/2017 ISABELLE PHAN MD Ot K56.7 ILEUS, UNSPECIFIED 04/23/2017 ISABELLE PHAN MD Ot R33.9 RETENTION OF URINE, UNSPECIFIED 04/23/2017 ISABELLE PHAN MD Ot Z47.8 2 ENCOUNTER FOR ORTH AFTERCARE FOLLOWING S 04/23/2017 ISABELLE PHAN MD Ot Z66 DO NOT RESUSCITATE 04/23/2017 ISABELLE PHAN MD Ot D64.9 ANEMIA, UNSPECIFIED 04/23/2017 ISABELLE PHAN MD Ot E87.1 HYPO-OSMOLALITY AND HYPONATREMIA 04/23/2017 ISABELLE PHAN MD Ot 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 04/23/2017 ISABELLE PHAN MD Ot I10 ESSENTIAL (PRIMARY) HYPERTENSION 04/23/2017 ISABELLE PHAN MD Ot K56.7 ILEUS, UNSPECIFIED 04/23/2017 ISABELLE PHAN MD Ot K59.0 9 OTHER CONSTIPATION 04/23/2017 ISABELLE HPAN MD Ot R33.9 RETENTION OF URINE, UNSPECIFIED 04/23/2017 ISABELLE PHAN MD Ot Z47.8 2 ENCOUNTER FOR ORTH AFTERCARE FOLLOWING S 04/23/2017 ISABELLE PHAN MD Ot Z66 DO NOT RESUSCITATE 07/31/2017 KAREN MARY MD Ot M54.5 LOW BACK PAIN 07/31/2017 KAREN MARY MD Ot Z47.8 9 ENCOUNTER FOR OTHER ORTHOPEDIC AFTERCARE 07/31/2017 KAREN MARY MD Ot Z98.1 ARTHRODESIS STATUS 08/09/2017 KAREN MARY MD Ot M54.5 LOW BACK PAIN 08/09/2017 KAREN MARY MD Ot Z47.8 9 ENCOUNTER FOR OTHER ORTHOPEDIC AFTERCARE 08/09/2017 KAREN MARY MD Ot Z98.1 ARTHRODESIS STATUS 08/21/2017 KAREN MARY MD Ot M54.5 LOW BACK PAIN 08/21/2017 KAREN MARY MD Ot Z47.8 9 ENCOUNTER FOR OTHER ORTHOPEDIC AFTERCARE 08/21/2017 KAREN MARY MD Ot Z98.1 ARTHRODESIS STATUS 01/23/2018 KATHLEEN UREÑA APRN Ot F32 .9 MAJOR DEPRESSIVE DISORDER, SINGLE EPISOD 01/23/2018 NIRANJAN, KATHLEEN E [employer] Ot M81 .0 AGE-RELATED OSTEOPOROSIS W/O CURRENT PAT 01/23/2018 NIRANJAN KATHLEEN E [employer] Ot Z47 .1 AFTERCARE FOLLOWING JOINT REPLACEMENT HUGHES 01/23/2018 NIRANJAN KATHLEEN E [employer] Ot Z96.652 PRESENCE OF LEFT ARTIFICIAL KNEE JOINT 01/28/2018 NIRANJAN, KATHLEEN E [employer] [place] [employer] Ot F32 .9 MAJOR DEPRESSIVE DISORDER, SINGLE EPISOD 01/28/2018 NIRANJAN, KATHLEEN E [place] [place] [employer] Ot M81 .0 AGE-RELATED OSTEOPOROSIS W/O CURRENT PAT 01/28/2018 NIRANJAN, KATHLEEN E [place] [place] [employer] Ot Z47 .1 AFTERCARE FOLLOWING JOINT REPLACEMENT HUGHES 01/28/2018 NIRANJAN, KATHLEEN E [employer] [place] [employer] Ot Z96.652 PRESENCE OF LEFT ARTIFICIAL KNEE JOINT 02/11/2018 NIRANJAN, KATHLEEN E [employer] [place] [employer] Ot F32 .9 MAJOR DEPRESSIVE DISORDER, SINGLE EPISOD 02/11/2018 NIRANJAN, KATHLEEN E [place] [employer] Ot M81 .0 AGE-RELATED OSTEOPOROSIS W/O CURRENT PAT 02/11/2018 NIRANJAN KATHLEEN E [employer] [place] [employer] Ot Z47 .1 AFTERCARE FOLLOWING JOINT REPLACEMENT HUGHES 02/11/2018 NIRANJAN KATHLEEN E [employer] [place] [employer] Ot Z96.652 PRESENCE OF LEFT ARTIFICIAL KNEE JOINT 05/06/2018 EATONJOLANTA Luciano [employer] LAYER Ot R 55 SYNCOPE AND COLLAPSE 05/26/2018 EATONJOLANTA Luciano [employer] Ot R 55 SYNCOPE AND COLLAPSE 06/03/2018 ISABELLE OLSEN DO Ot Z01.8 18 ENCOUNTER FOR OTHER PREPROCEDURAL EXAMIN 06/08/2018 PARMJIT BUCK, ANGE Lopez Ot 793.82 INCONCLUSIVE MAMMOGRAM 06/08/2018 PARMJIT BUCK, ANGE Lopez Ot V76.12 OT SCREEN MAMMO-MALIGN NEOPLASM OF DOMINIK 06/08/2018 ANGE PARNELL MD Ot 793.80 UNSPEC ABNORMAL MAMMOGRAM 06/08/2018 ANGE PARNELL MD Ot 276.1 HYPOSMOLALITY 06/08/2018 ANGE PARNELL MD Ot 733.00 OSTEOPOROSIS NOS 06/08/2018 PARMJIT BUCK, ANGE Lopez Ot 737.30 IDIOPATHIC SCOLIOSIS 06/08/2018 ESTELLA [employer] Ot M25.551 PAIN IN RIGHT HIP 06/08/2018 ESTELLA [employer] Ot M25.552 PAIN IN LEFT HIP 06/08/2018 ESTELLA [employer] Ot M41 .9 SCOLIOSIS, UNSPECIFIED 06/08/2018 ESTELLA [employer] Ot 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 06/08/2018 ESTELLA [employer] Ot R25 .1 TREMOR, UNSPECIFIED 06/08/2018 KAREN MARY MD Ot M41.3 4 THORACOGENIC SCOLIOSIS, THORACIC REGION 06/08/2018 KAREN MARY MD Ot M47.8 14 SPONDYLOSIS W/O MYELOPATHY OR RADICULOPA 06/08/2018 KAREN MARY MD Ot M47.8 16 SPONDYLOSIS W/O MYELOPATHY OR RADICULOPA 06/08/2018 KAREN MARY MD Ot 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 06/08/2018 KAREN MARY MD Ot M41.8 5 OTHER FORMS OF SCOLIOSIS, THORACOLUMBAR 06/08/2018 KAREN MARY MD Ot M47.8 12 SPONDYLOSIS W/O MYELOPATHY OR RADICULOPA 06/08/2018 KAREN MARY MD Ot M48.0 6 SPINAL STENOSIS, LUMBAR REGION 06/08/2018 KAREN MARY MD Ot 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, 06/08/2018 JOLANTA EATON [employer]AYER Ot R 55 SYNCOPE AND COLLAPSE 06/08/2018 ISABELLE OLSEN DO Ot Z01.8 18 ENCOUNTER FOR OTHER PREPROCEDURAL EXAMIN 06/09/2018 ISABELLE OLSEN DO Ot K57.3 0 DVRTCLOS OF LG INT W/O PERFORATION OR AB 06/09/2018 ISABELLE OLSEN DO Ot K64.8 OTHER HEMORRHOIDS 06/09/2018 ISABELLE OLSEN DO Ot Z12.1 1 ENCOUNTER FOR SCREENING FOR MALIGNANT NE Procedures Code Description [place] [address] ROUT INE VENIPUNCTURE 11/24/2012 56104 PSYC H DIAGNOSTIC EVALUATION 11/24/2012 59281 MAGNESIUM 11/24/2012 32501 CBC 11/24/2012 04726 CMP 11/24/2012 [id number] GF R CALC (RESULT ONLY) 11/24/2012 15401 TSH 11/25/2012 13621 XRAY SCOLIOSIS SERIES 12/01/2012 29880 A1C (IN-HOUSE) 12/07/2012 PHYSI Phys ical Therapy, [facility] 12/07/2012 35836 CMP 12/22/2012 [id number] GF R CALC (RESULT ONLY) 12/22/2012 23832 CALC IUM IONIZED 12/22/2012 77395 HEPA TITIS PROFILE 12/22/2012 96446 HIV ANTIBODIES (RML) 12/23/2012 37894 PSYT X PT&/FAMILY 45 MINUTES 12/28/2012 42794 PSYT X PT&/FAMILY 45 MINUTES 01/06/2013 40245 ROUT INE VENIPUNCTURE 01/21/2013 23082 BMP 01/21/2013 13707 MAGNESIUM 01/21/2013 [id number] GF R CALC (RESULT ONLY) 01/21/2013 Physical P hysical Therapy, [facility] 02/02/2013 58646 PSYT X PT&/FAMILY 45 MINUTES 02/03/2013 61279 PSYT X PT&/FAMILY 45 MINUTES 03/04/2013 21580 ROUT INE VENIPUNCTURE 03/24/2013 46529 MAMM OGRAM, SCREENING 03/24/2013 05278 BMP 03/24/2013 [id number] GF R CALC (RESULT ONLY) 03/24/2013 68489 ROUT INE VENIPUNCTURE 03/30/2013 69680 URIN E CREATININE (RANDOM) 03/30/2013 68876 URIN E OSMOLALITY 03/31/2013 55505 URIN E SODIUM, RANDOM 03/31/2013 98136 OSMO LALITY 03/31/2013 72716 ROUT INE VENIPUNCTURE 07/01/2013 82496 BMP 07/02/2013 [id number] GF R CALC (RESULT ONLY) 07/02/2013 11327 BONE DENSITY, DEXA 07/30/2013 54897 PSYT X PT&/FAMILY 30 MINUTES 09/02/2013 14306 ROUT INE VENIPUNCTURE 11/05/2013 69182 CMP 11/05/2013 [id number] GF R CALC (RESULT ONLY) 11/05/2013 59583 CRP 11/05/2013 47311 XRAY CHEST 2 VIEW 11/16/2013 29987 ROUT INE VENIPUNCTURE 05/27/2014 76801 CMP 05/27/2014 16440 CBC 05/27/2014 86638 ROUT INE VENIPUNCTURE 09/19/[id number] GF R CALC (RESULT ONLY) 09/19/2014 42530 CMP 09/19/2014 10598 ROUT INE VENIPUNCTURE 02/13/2015 15650 CMP 02/13/20151235176 GF R CALC (RESULT ONLY) 02/13/2015 [id number] FU SEEMA 2-7 T JT W AUTOL SUB, POST APPR P 04/11/2017 [id number] FU SEEMA T-LUM JT W AUTOL SUB, POST APPR P 04/11/2017 [id number] FU SEEMA LUM JT W INTBD FUS DEV, ANT APPR 04/11/2017 [id number] FU SEEMA 2-4 L JT W AUTOL SUB, POST APPR P 04/11/2017 [id number] FU SEEMA LUMSAC JT W AUTOL SUB, POST APPR 04/11/2017 [id number] FU SEEMA LUMSAC JT W INTBD FUS DEV, ANT AP 04/11/2017 [id number] FU SEEMA OF SACROCOCCYGEAL JOINT WITH AUTO 04/11/2017 Results Test Result Range Complete blood count (CBC) with automate d white blood cell (WBC) differential - 04/03/17 14:45 Blood leukocytes automated count (number/volume) 4.3 10*3/uL 4.3-11.0 Blood erythrocytes automated count (number/volume) 4.21 10*6/uL 4.35-5.85 Venous blood hemoglobin measurement (mass/volume) 12.1 g/dL 11.5-16.0 Blood hematocrit (volume fraction) 35 % 35-52 Automated erythrocyte mean corpuscular volume 84 [ foz_us] 80-99 Automated erythrocyte mean corpuscular h emoglobin (mass per erythrocyte) 29 pg 25-34 Automated erythrocyte mean corpuscular h emoglobin concentration measurement (mass/volume) 34 g/dL 32-36 Automated erythrocyte distribution width ratio 12. 7 % 10.0- 14.5 Automated blood platelet count (count/volume) 315 10*3/uL 130-400 Automated blood platelet mean volume measurement 8.8 [foz_us] 7.4-10.4 Automated blood neutrophils/100 leukocytes 46 % 42-75 Automated blood lymphocytes/100 leukocytes 42 % 12-44 Blood monocytes/100 leukocytes 10 % 0-12 Automated blood eosinophils/100 leukocytes 1 % 0-10 Automated blood basophils/100 leukocytes 1 % 0-10 Blood neutrophils automated count (number/volume) 2.0 10*3 1.8-7.8 Blood lymphocytes automated count (number/volume) 1.8 10*3 1.0-4.0 Blood monocytes automated count (number/volume) 0. 4 10*3 0.0-1.0 Automated eosinophil count 0.0 10*3/uL 0 .0-0.3 Automated blood basophil count (count/volume) 0.0 10*3/uL 0.0-0.1 Whole blood basic metabolic panel - 03/11 03/26 14:45 Serum or plasma sodium measurement (moles/volume) 133 mmol/L 135-145 Serum or plasma potassium measurement (moles/volume) 3.7 mmol/L 3.6-5.0 Serum or plasma chloride measurement (moles/volume) 97 mmol/L 98-107 Carbon dioxide 27 mmol/L 21-32 Serum or plasma anion gap determination (moles/volume) 9 mmol/L 5-14 Serum or plasma urea nitrogen measurement (mass/volume ) 10 mg/dL 7-18 Serum or plasma creatinine measurement (mass/volume) 0.71 mg/dL 0.60-1.30 Serum or plasma urea nitrogen/creatinine mass ratio 14 NRG Serum or plasma creatinine measurement w ith calculation of estimated glomerular filtration rate > NRG Serum or plasma glucose measurement (mass/volume) 94 mg/dL 70-105 Serum or plasma calcium measurement (mass/volume) 9.7 mg/dL 8.5-10.1 Blood type T Indirect antibody screen [facility] - 04/03/17 14:45 ABO+Rh group ABP NRG Transfusion band number [id number] NRG Blood group antibody screen NEGATIVE NR G Methicillin resistant Staphylococcus aur eus (MRSA) screening culture - 04/03/17 14:45 Methicillin resistant Staphylococcus aureus (MRSA) scr eening culture NEG NRG RED CELLS LEUKO REDUCED AS1 - 04/11/17 0 7:57 RED CELLS LEUKO REDUCED AS1 P RSMD TRFSD 04/11/17 1258 NRG Blood type T Indirect antibody screen [facility] - 04/11/17 07:57 ABO+Rh group ABP NRG Transfusion band number [id number] NRG Blood group antibody screen NEGATIVE NR G Whole blood hemoglobin and hematocrit [facility] - 04/11/17 12:18 Venous blood hemoglobin measurement (mass/volume) 10.7 g/dL 11.5-16.0 Blood hematocrit (volume fraction) 32 % 35-52 Whole blood hemoglobin and hematocrit [facility] - 04/11/17 14:12 Venous blood hemoglobin measurement (mass/volume) 10.6 g/dL 11.5-16.0 Blood hematocrit (volume fraction) 32 % 35-52 Complete blood count (CBC) with automate d white blood cell (WBC) differential - 04/12/17 04:12 Blood leukocytes automated count (number/volume) 8.8 10*3/uL 4.3-11.0 Blood erythrocytes automated count (number/volume) 3.61 10*6/uL 4.35-5.85 Venous blood hemoglobin measurement (mass/volume) 10.7 g/dL 11.5-16.0 Blood hematocrit (volume fraction) 31 % 35-52 Automated erythrocyte mean corpuscular volume 87 [ foz_us] 80-99 Automated erythrocyte mean corpuscular h emoglobin (mass per erythrocyte) 30 pg 25-34 Automated erythrocyte mean corpuscular h emoglobin concentration measurement (mass/volume) 34 g/dL 32-36 Automated erythrocyte distribution width ratio 13. 3 % 10.0- 14.5 Automated blood platelet count (count/volume) 185 10*3/uL 130-400 Automated blood platelet mean volume measurement 9.3 [foz_us] 7.4-10.4 Automated blood neutrophils/100 leukocytes 84 % 42-75 Automated blood lymphocytes/100 leukocytes 7 % 12-44 Blood monocytes/100 leukocytes 9 % 0-12 Automated blood eosinophils/100 leukocytes 0 % 0-10 Automated blood basophils/100 leukocytes 0 % 0-10 Blood neutrophils automated count (number/volume) 7.4 10*3 1.8-7.8 Blood lymphocytes automated count (number/volume) 0.6 10*3 1.0-4.0 Blood monocytes automated count (number/volume) 0. 8 10*3 0.0-1.0 Automated eosinophil count 0.0 10*3/uL 0 .0-0.3 Automated blood basophil count (count/volume) 0.0 10*3/uL 0.0-0.1 Comprehensive metabolic panel - 04/12/17 04:12 Serum or plasma sodium measurement (moles/volume) 136 mmol/L 135-145 Serum or plasma potassium measurement (moles/volume) 4.5 mmol/L 3.6-5.0 Serum or plasma chloride measurement (moles/volume) 106 mmol/L 98-107 Carbon dioxide 17 mmol/L 21-32 Serum or plasma anion gap determination (moles/volume) 13 mmol/L 5-14 Serum or plasma urea nitrogen measurement (mass/volume ) 10 mg/dL 7-18 Serum or plasma creatinine measurement (mass/volume) 0.64 mg/dL 0.60-1.30 Serum or plasma urea nitrogen/creatinine mass ratio 16 NRG Serum or plasma creatinine measurement w ith calculation of estimated glomerular filtration rate > NRG Serum or plasma glucose measurement (mass/volume) 184 mg/dL 70-105 Serum or plasma calcium measurement (mass/volume) 8.2 mg/dL 8.5-10.1 Serum or plasma total bilirubin measurement (mass/volu me) 0.3 mg/dL 0.1-1.0 Serum or plasma alkaline phosphatase brittany surement (enzymatic activity/volume) 54 U/L 40-136 Serum or plasma aspartate aminotransfera se measurement (enzymatic activity/volume) 48 U/L 5-34 Serum or plasma alanine aminotransferase measurement (enzymatic activity/volume) 25 U/L 0-55 Serum or plasma protein measurement (mass/volume) 5.7 g/dL 6.4-8.2 Serum or plasma albumin measurement (mass/volume) 3.2 g/dL 3.2-4.5 Serum or plasma phosphate measurement (m ass/volume) - 04/12/17 04:12 Serum or plasma phosphate measurement (mass/volume) 3.1 mg/dL 2.3-4.7 Magnesium - 04/12/17 04:12 Magnesium 1.5 mg/dL 1.8-2.4 Complete blood count (CBC) with automate d white blood cell (WBC) differential - 04/13/17 03:38 Blood leukocytes automated count (number/volume) 11.1 10*3/uL 4.3-11.0 Blood erythrocytes automated count (number/volume) 2.88 10*6/uL 4.35-5.85 Venous blood hemoglobin measurement (mass/volume) 8.6 g/dL 11.5-16.0 Blood hematocrit (volume fraction) 25 % 35-52 Automated erythrocyte mean corpuscular volume 87 [ foz_us] 80-99 Automated erythrocyte mean corpuscular h emoglobin (mass per erythrocyte) 30 pg 25-34 Automated erythrocyte mean corpuscular h emoglobin concentration measurement (mass/volume) 34 g/dL 32-36 Automated erythrocyte distribution width ratio 13. 4 % 10.0- 14.5 Automated blood platelet count (count/volume) 196 10*3/uL 130-400 Automated blood platelet mean volume measurement 9.0 [foz_us] 7.4-10.4 Automated blood neutrophils/100 leukocytes 81 % 42-75 Automated blood lymphocytes/100 leukocytes 12 % 12-44 Blood monocytes/100 leukocytes 8 % 0-12 Automated blood eosinophils/100 leukocytes 0 % 0-10 Automated blood basophils/100 leukocytes 0 % 0-10 Blood neutrophils automated count (number/volume) 9.0 10*3 1.8-7.8 Blood lymphocytes automated count (number/volume) 1.3 10*3 1.0-4.0 Blood monocytes automated count (number/volume) 0. 9 10*3 0.0-1.0 Automated eosinophil count 0.0 10*3/uL 0 .0-0.3 Automated blood basophil count (count/volume) 0.0 10*3/uL 0.0-0.1 Comprehensive metabolic panel - 04/13/17 03:38 Serum or plasma sodium measurement (moles/volume) 130 mmol/L 135-145 Serum or plasma potassium measurement (moles/volume) 4.6 mmol/L 3.6-5.0 Serum or plasma chloride measurement (moles/volume) 98 mmol/L 98-107 Carbon dioxide 25 mmol/L 21-32 Serum or plasma anion gap determination (moles/volume) 7 mmol/L 5-14 Serum or plasma urea nitrogen measurement (mass/volume ) 10 mg/dL 7-18 Serum or plasma creatinine measurement (mass/volume) 0.69 mg/dL 0.60-1.30 Serum or plasma urea nitrogen/creatinine mass ratio 14 NRG Serum or plasma creatinine measurement w ith calculation of estimated glomerular filtration rate > NRG Serum or plasma glucose measurement (mass/volume) 122 mg/dL 70-105 Serum or plasma calcium measurement (mass/volume) 8.4 mg/dL 8.5-10.1 Serum or plasma total bilirubin measurement (mass/volu me) 0.4 mg/dL 0.1-1.0 Serum or plasma alkaline phosphatase brittany surement (enzymatic activity/volume) 56 U/L 40-136 Serum or plasma aspartate aminotransfera se measurement (enzymatic activity/volume) 56 U/L 5-34 Serum or plasma alanine aminotransferase measurement (enzymatic activity/volume) 24 U/L 0-55 Serum or plasma protein measurement (mass/volume) 5.5 g/dL 6.4-8.2 Serum or plasma albumin measurement (mass/volume) 2.9 g/dL 3.2-4.5 Serum or plasma phosphate measurement (m ass/volume) - 04/13/17 03:38 Serum or plasma phosphate measurement (mass/volume) 2.2 mg/dL 2.3-4.7 Magnesium - 04/13/17 03:38 Magnesium 1.9 mg/dL 1.8-2.4 IRON TEST - 04/13/17 07:55 Serum or plasma iron measurement (mass/volume) < % 35-180 Complete blood count (CBC) with automate d white blood cell (WBC) differential - 04/14/17 04:35 Blood leukocytes automated count (number/volume) 8.8 10*3/uL 4.3-11.0 Blood erythrocytes automated count (number/volume) 2.55 10*6/uL 4.35-5.85 Venous blood hemoglobin measurement (mass/volume) 7.4 g/dL 11.5-16.0 Blood hematocrit (volume fraction) 22 % 35-52 Automated erythrocyte mean corpuscular volume 88 [ foz_us] 80-99 Automated erythrocyte mean corpuscular h emoglobin (mass per erythrocyte) 29 pg 25-34 Automated erythrocyte mean corpuscular h emoglobin concentration measurement (mass/volume) 33 g/dL 32-36 Automated erythrocyte distribution width ratio 13. 4 % 10.0- 14.5 Automated blood platelet count (count/volume) 214 10*3/uL 130-400 Automated blood platelet mean volume measurement 9.1 [foz_us] 7.4-10.4 Automated blood neutrophils/100 leukocytes 79 % 42-75 Automated blood lymphocytes/100 leukocytes 15 % 12-44 Blood monocytes/100 leukocytes 6 % 0-12 Automated blood eosinophils/100 leukocytes 0 % 0-10 Automated blood basophils/100 leukocytes 0 % 0-10 Blood neutrophils automated count (number/volume) 6.9 10*3 1.8-7.8 Blood lymphocytes automated count (number/volume) 1.3 10*3 1.0-4.0 Blood monocytes automated count (number/volume) 0. 5 10*3 0.0-1.0 Automated eosinophil count 0.0 10*3/uL 0 .0-0.3 Automated blood basophil count (count/volume) 0.0 10*3/uL 0.0-0.1 Whole blood basic metabolic panel - 03/26 04:35 Serum or plasma sodium measurement (moles/volume) 132 mmol/L 135-145 Serum or plasma potassium measurement (moles/volume) 3.4 mmol/L 3.6-5.0 Serum or plasma chloride measurement (moles/volume) 100 mmol/L 98-107 Carbon dioxide 24 mmol/L 21-32 Serum or plasma anion gap determination (moles/volume) 8 mmol/L 5-14 Serum or plasma urea nitrogen measurement (mass/volume ) 7 mg/dL 7-18 Serum or plasma creatinine measurement (mass/volume) 0.52 mg/dL 0.60-1.30 Serum or plasma urea nitrogen/creatinine mass ratio 13 NRG Serum or plasma creatinine measurement w ith calculation of estimated glomerular filtration rate > NRG Serum or plasma glucose measurement (mass/volume) 93 mg/dL 70-105 Serum or plasma calcium measurement (mass/volume) 8.1 mg/dL 8.5-10.1 Serum or plasma phosphate measurement (m ass/volume) - 04/14/17 04:35 Serum or plasma phosphate measurement (mass/volume) 2.2 mg/dL 2.3-4.7 Magnesium - 04/14/17 04:35 Magnesium 1.8 mg/dL 1.8-2.4 Complete blood count (CBC) with automate d white blood cell (WBC) differential - 04/15/17 04:28 Blood leukocytes automated count (number/volume) 6.4 10*3/uL 4.3-11.0 Blood erythrocytes automated count (number/volume) 2.38 10*6/uL 4.35-5.85 Venous blood hemoglobin measurement (mass/volume) 7.1 g/dL 11.5-16.0 Blood hematocrit (volume fraction) 21 % 35-52 Automated erythrocyte mean corpuscular volume 90 [ foz_us] 80-99 Automated erythrocyte mean corpuscular h emoglobin (mass per erythrocyte) 30 pg 25-34 Automated erythrocyte mean corpuscular h emoglobin concentration measurement (mass/volume) 33 g/dL 32-36 Automated erythrocyte distribution width ratio 14. 4 % 10.0- 14.5 Automated blood platelet count (count/volume) 199 10*3/uL 130-400 Automated blood platelet mean volume measurement 9.4 [foz_us] 7.4-10.4 Automated blood neutrophils/100 leukocytes 79 % 42-75 Automated blood lymphocytes/100 leukocytes 14 % 12-44 Blood monocytes/100 leukocytes 6 % 0-12 Automated blood eosinophils/100 leukocytes 1 % 0-10 Automated blood basophils/100 leukocytes 0 % 0-10 Blood neutrophils automated count (number/volume) 5.1 10*3 1.8-7.8 Blood lymphocytes automated count (number/volume) 0.9 10*3 1.0-4.0 Blood monocytes automated count (number/volume) 0. 4 10*3 0.0-1.0 Automated eosinophil count 0.0 10*3/uL 0 .0-0.3 Automated blood basophil count (count/volume) 0.0 10*3/uL 0.0-0.1 Whole blood basic metabolic panel - 0 04/26 05:53 Serum or plasma sodium measurement (moles/volume) 135 mmol/L 135-145 Serum or plasma potassium measurement (moles/volume) 3.4 mmol/L 3.6-5.0 Serum or plasma chloride measurement (moles/volume) 102 mmol/L 98-107 Carbon dioxide 25 mmol/L 21-32 Serum or plasma anion gap determination (moles/volume) 8 mmol/L 5-14 Serum or plasma urea nitrogen measurement (mass/volume ) 8 mg/dL 7-18 Serum or plasma creatinine measurement (mass/volume) 0.54 mg/dL 0.60-1.30 Serum or plasma urea nitrogen/creatinine mass ratio 15 NRG Serum or plasma creatinine measurement w ith calculation of estimated glomerular filtration rate > NRG Serum or plasma glucose measurement (mass/volume) 86 mg/dL 70-105 Serum or plasma calcium measurement (mass/volume) 8.4 mg/dL 8.5-10.1 Serum or plasma phosphate measurement (m ass/volume) - 04/15/17 05:53 Serum or plasma phosphate measurement (mass/volume) 2.2 mg/dL 2.3-4.7 Magnesium - 04/15/17 05:53 Magnesium 1.7 mg/dL 1.8-2.4 Complete blood count (CBC) with automate d white blood cell (WBC) differential - 04/16/17 06:05 Blood leukocytes automated count (number/volume) 6.0 10*3/uL 4.3-11.0 Blood erythrocytes automated count (number/volume) 2.62 10*6/uL 4.35-5.85 Venous blood hemoglobin measurement (mass/volume) 7.7 g/dL 11.5-16.0 Blood hematocrit (volume fraction) 24 % 35-52 Automated erythrocyte mean corpuscular volume 90 [ foz_us] 80-99 Automated erythrocyte mean corpuscular h emoglobin (mass per erythrocyte) 29 pg 25-34 Automated erythrocyte mean corpuscular h emoglobin concentration measurement (mass/volume) 33 g/dL 32-36 Automated erythrocyte distribution width ratio 13. 9 % 10.0- 14.5 Automated blood platelet count (count/volume) 343 10*3/uL 130-400 Automated blood platelet mean volume measurement 8.3 [foz_us] 7.4-10.4 Automated blood neutrophils/100 leukocytes 67 % 42-75 Automated blood lymphocytes/100 leukocytes 23 % 12-44 Blood monocytes/100 leukocytes 8 % 0-12 Automated blood eosinophils/100 leukocytes 2 % 0-10 Automated blood basophils/100 leukocytes 1 % 0-10 Blood neutrophils automated count (number/volume) 4.0 10*3 1.8-7.8 Blood lymphocytes automated count (number/volume) 1.4 10*3 1.0-4.0 Blood monocytes automated count (number/volume) 0. 5 10*3 0.0-1.0 Automated eosinophil count 0.1 10*3/uL 0 .0-0.3 Automated blood basophil count (count/volume) 0.0 10*3/uL 0.0-0.1 Comprehensive metabolic panel - 04/16/17 06:05 Serum or plasma sodium measurement (moles/volume) 133 mmol/L 135-145 Serum or plasma potassium measurement (moles/volume) 3.8 mmol/L 3.6-5.0 Serum or plasma chloride measurement (moles/volume) 102 mmol/L 98-107 Carbon dioxide 23 mmol/L 21-32 Serum or plasma anion gap determination (moles/volume) 8 mmol/L 5-14 Serum or plasma urea nitrogen measurement (mass/volume ) 9 mg/dL 7-18 Serum or plasma creatinine measurement (mass/volume) 0.52 mg/dL 0.60-1.30 Serum or plasma urea nitrogen/creatinine mass ratio 17 NRG Serum or plasma creatinine measurement w ith calculation of estimated glomerular filtration rate > NRG Serum or plasma glucose measurement (mass/volume) 82 mg/dL 70-105 Serum or plasma calcium measurement (mass/volume) 8.3 mg/dL 8.5-10.1 Serum or plasma total bilirubin measurement (mass/volu me) 0.3 mg/dL 0.1-1.0 Serum or plasma alkaline phosphatase brittany surement (enzymatic activity/volume) 51 U/L 40-136 Serum or plasma aspartate aminotransfera se measurement (enzymatic activity/volume) 52 U/L 5-34 Serum or plasma alanine aminotransferase measurement (enzymatic activity/volume) 24 U/L 0-55 Serum or plasma protein measurement (mass/volume) 5.3 g/dL 6.4-8.2 Serum or plasma albumin measurement (mass/volume) 2.7 g/dL 3.2-4.5 Complete blood count (CBC) with automate d white blood cell (WBC) differential - 04/23/17 05:36 Blood leukocytes automated count (number/volume) 6.2 10*3/uL 4.3-11.0 Blood erythrocytes automated count (number/volume) 2.83 10*6/uL 4.35-5.85 Venous blood hemoglobin measurement (mass/volume) 8.4 g/dL 11.5-16.0 Blood hematocrit (volume fraction) 26 % 35-52 Automated erythrocyte mean corpuscular volume 93 [ foz_us] 80-99 Automated erythrocyte mean corpuscular h emoglobin (mass per erythrocyte) 30 pg 25-34 Automated erythrocyte mean corpuscular h emoglobin concentration measurement (mass/volume) 32 g/dL 32-36 Automated erythrocyte distribution width ratio 15. 8 % 10.0- 14.5 Automated blood platelet count (count/volume) 733 10*3/uL 130-400 Automated blood platelet mean volume measurement 7.8 [foz_us] 7.4-10.4 Automated blood neutrophils/100 leukocytes 70 % 42-75 Automated blood lymphocytes/100 leukocytes 19 % 12-44 Blood monocytes/100 leukocytes 8 % 0-12 Automated blood eosinophils/100 leukocytes 2 % 0-10 Automated blood basophils/100 leukocytes 1 % 0-10 Blood neutrophils automated count (number/volume) 4.3 10*3 1.8-7.8 Blood lymphocytes automated count (number/volume) 1.2 10*3 1.0-4.0 Blood monocytes automated count (number/volume) 0. 5 10*3 0.0-1.0 Automated eosinophil count 0.1 10*3/uL 0 .0-0.3 Automated blood basophil count (count/volume) 0.1 10*3/uL 0.0-0.1 Comprehensive metabolic panel - 04/23/17 05:36 Serum or plasma sodium measurement (moles/volume) 134 mmol/L 135-145 Serum or plasma potassium measurement (moles/volume) 3.5 mmol/L 3.6-5.0 Serum or plasma chloride measurement (moles/volume) 101 mmol/L 98-107 Carbon dioxide 23 mmol/L 21-32 Serum or plasma anion gap determination (moles/volume) 10 mmol/L 5-14 Serum or plasma urea nitrogen measurement (mass/volume ) 9 mg/dL 7-18 Serum or plasma creatinine measurement (mass/volume) 0.58 mg/dL 0.60-1.30 Serum or plasma urea nitrogen/creatinine mass ratio 16 0-20 Serum or plasma creatinine measurement w ith calculation of estimated glomerular filtration rate > NRG Serum or plasma glucose measurement (mass/volume) 104 mg/dL 70-105 Serum or plasma calcium measurement (mass/volume) 9.1 mg/dL 8.5-10.1 Serum or plasma total bilirubin measurement (mass/volu me) 0.2 mg/dL 0.1-1.0 Serum or plasma alkaline phosphatase brittany surement (enzymatic activity/volume) 94 U/L 40-136 Serum or plasma aspartate aminotransfera se measurement (enzymatic activity/volume) 44 U/L 5-34 Serum or plasma alanine aminotransferase measurement (enzymatic activity/volume) 21 U/L 0-55 Serum or plasma protein measurement (mass/volume) 6.6 g/dL 6.4-8.2 Serum or plasma albumin measurement (mass/volume) 3.2 g/dL 3.2-4.5 VITAMIN D, 25-H - 10/15/17 08:25 VITAMIN D,25-OH,TOTAL,IA 58 ng/mL 30-10 0 CBC - 02/03/18 11:30 WHITE BLOOD CELL COUNT 4.1 Thousand/uL 3 .8-10.8 RED BLOOD CELL COUNT 4.44 Million/uL 3.8 0-5.10 HEMOGLOBIN 12.8 g/dL 11.7-15.5 HEMATOCRIT 39.3 % 35.0-45.0 MCV 88.5 fL 80.0-100.0 MCH 28.8 pg 27.0-33.0 MCHC 32.6 g/dL 32.0-36.0 RDW 12.2 % 11.0-15.0 PLATELET COUNT 362 Thousand/uL 140-400 MPV 9.2 fL 7.5-12.5 ABSOLUTE NEUTROPHILS 2112 cells/uL 1500- 7800 ABSOLUTE LYMPHOCYTES 1595 cells/uL 850-3 900 ABSOLUTE MONOCYTES 316 cells/uL 200-950 ABSOLUTE EOSINOPHILS 29 cells/uL 15-500 ABSOLUTE BASOPHILS 49 cells/uL 0-200 NEUTROPHILS 51.5 % NRG LYMPHOCYTES 38.9 % NRG MONOCYTES 7.7 % NRG EOSINOPHILS 0.7 % NRG BASOPHILS 1.2 % NRG CBC - 05/05/18 15:33 WHITE BLOOD CELL COUNT 5.4 Thousand/uL 3 .8-10.8 RED BLOOD CELL COUNT 4.85 Million/uL 3.8 0-5.10 HEMOGLOBIN 13.3 g/dL 11.7-15.5 HEMATOCRIT 40.4 % 35.0-45.0 MCV 83.3 fL 80.0-100.0 MCH 27.4 pg 27.0-33.0 MCHC 32.9 g/dL 32.0-36.0 RDW 13.0 % 11.0-15.0 PLATELET COUNT 347 Thousand/uL 140-400 MPV 9.2 fL 7.5-12.5 ABSOLUTE NEUTROPHILS 3802 cells/uL 1500- 7800 ABSOLUTE LYMPHOCYTES 1258 cells/uL 850-3 900 ABSOLUTE MONOCYTES 308 cells/uL 200-950 ABSOLUTE EOSINOPHILS 11 cells/uL 15-500 ABSOLUTE BASOPHILS 22 cells/uL 0-200 NEUTROPHILS 70.4 % NRG LYMPHOCYTES 23.3 % NRG MONOCYTES 5.7 % NRG EOSINOPHILS 0.2 % NRG BASOPHILS 0.4 % NRG THYROID ANALYZER - 05/05/18 15:33 TSH 1.73 mIU/L 0.40-4.50 VITAMIN D, 25-H - 05/05/18 15:33 VITAMIN D,25-OH,TOTAL,IA 54 ng/mL 30-10 0 CULTURE, URINE - 10/02/18 09:26 CULTURE, URINE, ROUTINE SEE NOTE NRG PDM - TRAMADOL - 04/13/19 11:09 Prescribed Drug 1 Tramadol NRG COMMENT NRG Desmethyltramadol NEGATIVE ng/mL <100 medMATCH Desmethyltram INCONSISTENT NRG Tramadol NEGATIVE ng/mL <100 medMATCH Tramadol INCONSISTENT NRG Prescribed Drug 2 Ativan(TM) NRG LIPID PANEL - 07/27/19 10:04 CHOLESTEROL, TOTAL 198 mg/dL <200 HDL CHOLESTEROL 84 mg/dL >50 TRIGLYCERIDES 78 mg/dL <150 LDL-CHOLESTEROL 97 mg/dL (calc) NRG CHOL/HDLC RATIO 2.4 (calc) <5.0 NON HDL CHOLESTEROL 114 mg/dL (calc) <13 0 CMP - 07/27/19 10:04 GLUCOSE 84 mg/dL 65-99 UREA NITROGEN (BUN) 8 mg/dL 7-25 CREATININE 0.63 mg/dL 0.50-0.99 eGFR NON-AFR. [place] 96 mL/min/1.73m2 > OR = 60 eGFR 111 mL/min/1.73m2 > OR = 60 BUN/CREATININE RATIO NOT APPLICABLE (calc) 6-22 SODIUM 131 mmol/L 135-146 POTASSIUM 4.7 mmol/L 3.5-5.3 CHLORIDE 96 mmol/L 98-110 CARBON DIOXIDE 28 mmol/L 20-32 CALCIUM 9.9 mg/dL 8.6-10.4 PROTEIN, TOTAL 7.7 g/dL 6.1-8.1 ALBUMIN 4.3 g/dL 3.6-5.1 GLOBULIN 3.4 g/dL (calc) 1.9-3.7 ALBUMIN/GLOBULIN RATIO 1.3 (calc) 1.0-2. 5 BILIRUBIN, TOTAL 0.3 mg/dL 0.2-1.2 ALKALINE PHOSPHATASE 72 U/L 33-130 AST 27 U/L 10-35 ALT 9 U/L 6-29 VITAMIN D, 25-H - 07/27/19 10:04 VITAMIN D,25-OH,TOTAL,IA 53 ng/mL 30-10 0 Encounters ACCT No. Visit Date/Time Discharge Status Pt. Type Provider Facility Loc./Unit Complaint [id number] 02/13/2015 08:54:00 02/13/2015 23:59: 59 CLS Outpatient ESTELLA SOTOMAYOR APRN [id number] 01/16/2015 00:00:00 01/16/2015 23:59: 59 CLS Outpatient MELODY WIN DDSON Devonte [id number] 09/19/2014 08:09:00 09/19/2014 23:59: 59 CLS Outpatient AURELIA SPIVEY DO [id number] 05/27/2014 09:33:00 05/27/2014 23:59: 59 CLS Outpatient ABDULLAHI SOTOMAYOR APRNAbdullahi Luna [id number] 04/27/2014 13:44:00 04/27/2014 23:59: 59 CLS Outpatient AURELIA SPIVEY DO [id number] 12/17/2013 08:39:00 12/17/2013 23:59: 59 CLS Outpatient ANGE PARNELL MD [id number] 11/16/2013 09:06:00 11/16/2013 23:59: 59 CLS Outpatient DIGNA SANCHEZ MD [id number] 11/05/2013 09:52:00 11/05/2013 23:59: 59 CLS Outpatient DIGNA SANCHEZ MD [id number] 09/07/2013 17:14:00 09/07/2013 23:59: 59 CLS Outpatient AURELIA SPIVEY DO [id number] 09/02/2013 08:52:00 09/02/2013 23:59: 59 CLS Outpatient MIKE PEREZ PSYD [id number] 07/01/2013 15:48:00 07/01/2013 23:59: 59 CLS Outpatient ANGE PARNELL MD [id number] 02/03/2013 08:46:00 02/03/2013 23:59: 59 CLS Outpatient MIEK PEREZ PSYD [id number] 01/28/2013 10:39:00 01/28/2013 23:59: 59 CLS Outpatient [id number] 01/21/2013 08:17:00 01/21/2013 23:59: 59 CLS Outpatient PARMJIT BUCK, ANGE Jessica [id number] 01/05/2013 08:36:00 01/05/2013 23:59: 59 CLS Outpatient [id number] 12/25/2012 08:44:00 12/25/2012 23:59: 59 CLS Outpatient LAURA BUCK, DIGNA [id number] 12/22/2012 10:23:00 12/22/2012 23:59: 59 CLS Outpatient [id number] 12/07/2012 07:51:00 12/07/2012 23:59: 59 CLS Outpatient MIKE PEREZ PSYD [id number] 11/24/2012 10:41:00 11/24/2012 23:59: 59 CLS Outpatient [id number] 03/30/2013 09:20:00 Document Registration [id number] 03/24/2013 09:31:00 Document Registration [id number] 03/04/2013 09:42:00 Document Registration [id number] 06/09/2018 06:59:00 018 10:34:00 DIS Outpatient ISABELLE OLSEN DO [facility] ENDO SCREENING [id number] 06/02/2018 05:35:00 018 23:59:59 CLS Outpatient ISABELLE OLSEN DO [facility] PREOP COLONOSCOPY [id number] 05/05/2018 16:03:00 018 23:59:59 CLS Outpatient JOLANTA EATON APRN [facility] RAD VASOVAGAL SYNCO PE [id number] 01/23/2018 10:54:00 018 11:51:00 DIS Outpatient KATHLEEN UREÑA [employer]ER [facility] REHAB S/P L TKR [id number] 08/21/2017 10:00:00 017 11:54:00 DIS Outpatient KAREN MARY MD [facility] REHAB S/P T-9-PELVIS PSF [id number] 08/06/2017 09:10:00 017 00:01:00 DIS Outpatient KAREN MARY MD [facility] REHAB S/P T-9-PELVIS PSF [id number] 04/15/2017 11:45:00 017 09:09:00 DIS Inpatient ISABELLE PHAN MD [facility] IRF SCOLIOSIS [id number] 04/11/2017 07:32:00 017 11:45:00 DIS Inpatient KAREN MARY MD [facility] 4TH SCOLIOSIS [id number] 04/03/2017 14:11:00 017 14:45:00 DIS Outpatient KAREN MARY MD [facility] PREOP SCOLIOSIS [id number] 03/06/2017 15:32:00 017 23:59:59 CLS Outpatient KAREN MARY MD [facility] RAD NECK PAIN, SCOLIOSIS,LO W BACK PAIN [id number] 03/05/2017 15:35:00 017 23:59:59 CLS Outpatient KAREN MARY MD [facility] RAD NECK PAIN, SCOLIOSIS,LO W BACK PAIN [id number] 01/22/2017 09:45:00 017 23:59:59 CLS Outpatient ESTELLA SOTOMAYOR [facility] RAD TREMOR OF UNKNOWN ORIGI N,PAIN IN HIP,SCOLIOSIS [id number] 02/09/2015 15:52:00 015 17:25:00 DIS Emergency HUSEYIN SOLIMAN [employer] [facility] ER ANAL LEAKAGE [id number] 07/30/2013 08:33:00 013 23:59:59 CLS Outpatient ANGE PARNELL MD [facility] RAD KYPHOSCOLIOSIS [id number] 04/20/2013 07:32:00 013 23:59:59 CLS Outpatient ANGE PARNELL MD [facility] RAD ABN MAMMO [id number] 03/31/2013 10:24:00 013 23:59:59 CLS Outpatient ANGE PARNELL MD [facility] RAD SCREENING [id number] 02/12/2013 14:00:00 013 15:01:00 DIS Outpatient PARMJIT BUCK, ANGE [place] [facility] REHAB CHRONIC BACK PA IN, SEVERE SCOLIOSIS [id number] 12/02/2012 08:07:00 Document Registration [id number] 05/16/2012 02:50:00 Document Registration [id number] 11/02/2019 10:40:00 11/02/2019 23:59:5 9 CLS Outpatient JOSE HENDERSON [facility] [id number] 07/27/2019 09:20:00 Document Registration [id number] 04/13/2019 10:20:00 Document Registration [id number] 10/02/2018 09:40:00 Document Registration [id number] 05/05/2018 14:40:00 Document Registration [id number] 02/03/2018 10:40:00 Document Registration [id number] 10/15/2017 08:00:00 Document Registration
--- OUTSIDE RECORDS SUMMARY | 2020-02-19 13:40 | XMS REPORT ---
Author Author Sherly SOTOMAYOR Organization [facility] Address [address] [place] [address] Care Team Providers Care Engineering Scientist Name Role Phone ESTELLA SOTOMAYOR Unavailable PROBLEMS Type Condition ICD9-CM Code ZWO75-VY Code Onset Dates Condition S tatus SNOMED Code Problem History of hypertension Z86.79 Active 512170822 Problem History of spinal fusion for scoliosis Z98.1 Active 844762223 Problem Vitamin D deficiency E55.9 Active 64421456 Problem Anxiety F41.9 Active 36933461 Problem Depression F32.9 Active 12873655 ALLERGIES Substance Reaction Event Type Date Status Neosporin Unknown Drug Allergy Jun, Active Fosamax Unknown Drug Allergy Jun, Active Penicillin Unknown Drug Allergy Jun, Active Evista 60 Mg Tablet legs swelling Non Drug Allergy Jun, Act jaelyn ENCOUNTERS Encounter Location Date Diagnosis [facility] [address] [address] Jan, Essential hypertension I10 ; Depression F32.9 ; Anxiety F41.9 ; History of hypertension Z86.79 ; History of anemia Z86.2 and Hyponatremia E87.1 [facility] [address] [place] [id number] [address] [place] [address] Dec, Hyponatremia E87.1 [facility] [address] [facility] [id number] [address] [place] [address] Dec, Fever, unspecified fever cau se R50.9 and Acute nasopharyngitis J00 [facility] [address] [place] [id number] [address] [place] [address] Nov, Hyponatremia E87.1 [facility] [address] [place] [id number] [address] [place] [address] Oct, Essential hypertension I10 ; Long-term use of high-risk medication Z79.899 and Vitamin D deficiency E55.9 [place] [address] [facility] [id number] [address] [place] [address] Oct, Essential hypertension I10 ; Depression F32.9 ; Anxiety F41.9 ; Long-term use of high-risk medication Z79.899 and Vitamin D deficiency E55.9 [place] [address] [facility] [id number] [address] [place] [address] Jun, History of spinal fusion for scoliosis Z98.1 ; Postoperative anemia D64.9 ; Essential hypertension I10 ; Depression F32.9 and Anxiety F41.9 [place] [address] [place] [id number] [place] [address] Jun, History of spinal fusion for scoliosis Z98.1 ; Postoperative anemia D64.9 ; Essential hypertension I10 ; Depression F32.9 and Anxiety F41.9 [place] [address] [place] [id number] [address] [place] [address] May, History of spinal fusion for scoliosis Z98.1 ; Postoperative anemia D64.9 ; Essential hypertension I10 ; Depression F32.9 and Anxiety F41.9 [facility] [address] [place] [id number] [address] [place] [address] May, [facility] [address] [facility] [id number] [address] [place] [address] Apr, Dysuria R30.0 and Acute cyst itis with hematuria N30.01 [facility] [address] [facility] [id number] [address] [place] [address] Apr, [facility] [address] [place] [id number] [address] [place] [address] Apr, [facility] [address] [place] [id number] [address] [place] [address] Apr, [facility] [address] [place] [id number] [address] [place] [address] Apr, Anxiety F41.9 [facility] [address] [facility] [id number] [address] [place] [address] Feb, Anxiety F41.9 [facility] [address] [facility] [id number] [address] [place] [address] Jan, [place] [address] [facility] [id number] [address] [place] [address] Jan, Severe scoliosis M41.9 [facility] [address] [id number] [address] [place] [address] Jan, [place] [address] [facility] [id number] [place] [address] Jan, Tremor of unknown origin R25 .1 ; Headache, unspecified headache type R51 ; Balance problem R26.89 ; Degenerative scoliosis M41.9 ; Pain in right hip M25.551 and Pain in left hip M25.552 [place] [address] [facility] [id number] [address] [place] [address] Jan, Tremor of unknown origin R25 .1 ; Headache, unspecified headache type R51 ; Balance problem R26.89 ; Degenerative scoliosis M41.9 ; Pain in right hip M25.551 and Pain in left hip M25.552 [place] [address] [place] [id number] [address] [place] [address] Jan, [place] [address] [facility] [id number] [address] [place] [address] Oct, Essential hypertension I10 ; Vitamin D deficiency E55.9 ; Depression F32.9 ; Anxiety F41.9 ; Lumbar pain M54.5 and Screening for colon cancer Z12.11 [place] [address] [facility] [id number] [address] [place] [address] Aug, [place] [address] [place] [id number] [address] [place] [address] Dec, [place] [address] [place] [id number] [place] [address] Dec, Hammertoe M20.40 [facility] [address] [id number] [address] [place] [address] Oct, [facility] [address] [facility] [id number] [address] [place] [address] Oct, Essential hypertension I10 ; Vitamin D deficiency E55.9 ; Depression F32.9 ; Anxiety F41.9 ; Lumbar pain M54.5 and Hammer toe of left foot M20.42 [facility] [address] [facility] [id number] [address] [place] [address] Sep, Acute upper respiratory infe ction, unspecified J06.9 and Other viral agents as the cause of diseases classified elsewhere B97.89 [facility] [address] [place] [id number] Apr, Dental examination V72.2 [facility] [address] [place] [id number] Apr, Dental examination V72.2 [facility] [address] [place] [address] [id number] Apr, Dental examination V72.2 [facility] [address] [id number] [place] [id number] Apr, Dental examination V72.2 [facility] [address] [place] [id number] March, Dental examination V72.2 [facility] [address] [id number] [address] [place] [phone] March, [facility] [address] [facility] [id number] [address] [place] [address] 14 Feb, 2015 [facility] [address] [facility] [id number] [address] [place] [address] Feb, [facility] [address] [facility] [id number] [address] [place] [phone] Oct, [facility] [address] [id number] [address] [place] [address], [place] [address] Oct, [facility] [address] [id number] [address] [place] [address], [place] [address] Sep, [facility] [address] [id number] [address] [place] [address], [place] [address] Sep, [facility] [address] [id number] [address] [place] [address], [place] [address] Sep, [facility] [address] [id number] [address] [place] [address], [place] [address] Sep, [facility] [address] [id number] [address] [place] [address], [place] [address] Aug, [facility] [address] [id number] [address] [place] [address], [place] [address] Aug, [facility] [address] [id number] [address] [place] [address], [place] [address] Jul, [facility] [address] [id number] [address] [place] [address], [place] [address] Jul, [facility] [address] [id number] [address] [place] [address], [place] [address] Jun, [facility] [address] [id number] [address] [place] [address], [place] [address] Jun, [facility] [address] [id number] [address] [place] [address], [place] [address] May, [facility] [address] [id number] [address] [place] [address], [place] [address] May, [facility] [address] [id number] [address] [place] [address], [place] [address] May, [facility] [address] [id number] [address] [place] [address], [place] [address] May, [facility] [address] [id number] [address] [place] [address], [place] [address] May, [facility] [address] [id number] [address] [place] [address], [place] [address] May, [facility] [address] [id number] [address] [place] [address], [place] [address] Apr, [facility] [address] [id number] [address] [place] [address], [place] [address] Apr, [facility] [address] [id number] [address] [place] [address], [place] [address] March, [facility] [address] [id number] [address] [place] [address], [place] [address] March, [facility] [address] [id number] [address] [place] [address], [place] [address] March, [facility] [address] [id number] [address] [place] [address], [place] [address] March, [facility] [address] [id number] [address] [place] [address], [place] [address] Jan, [facility] [address] [id number] [address] [place] [address], [place] [address] Jan, [facility] [address] [id number] [address] [place] [address], [place] [address] 07 Dec, 2013 [facility] [address] [id number] [address] [place] [address], [place] [address] Dec, [facility] [address] [id number] [address] [place] [address], [place] [address] Nov, [facility] [address] [id number] [address] [place] [address], [place] [address] Nov, [facility] [address] [id number] [address] [place] [address], [place] [address] Nov, [facility] [address] [id number] [address] [place] [address], [place] [address] Nov, [facility] [address] [id number] [address] [place] [address], [place] [address] Nov, [facility] [address] [id number] [address] [place] [address], [place] [address] Nov, [facility] [address] [id number] [address] [place] [address], [place] [address] Oct, [facility] [address] [id number] [address] [place] [address], [place] [address] Oct, [facility] [address] [id number] [address] [place] [address], [place] [address] Oct, [facility] [address] [id number] [address] [place] [address], [place] [address] Oct, [facility] [address] [id number] [address] [place] [address], [place] [address] Sep, [facility] [address] [id number] [address] [place] [address] Sep, [facility] [address] [id number] [address] [place] [address], [place] [address] Sep, [facility] [address] [id number] [address] [place] [address] Sep, [facility] [address] [id number] [address] [place] [address] Aug, [facility] [address] [id number] [address] [place] [address] Aug, [facility] [address] [id number] [address] [place] [address] Aug, [facility] [address] [id number] [address] [place] [address] Aug, [facility] [address] [id number] [address] [place] [address] Jul, [facility] [address] [id number] [address] [place] [address] Jun, [facility] [address] [id number] [address] [place] [address], [place] [address] Jun, [facility] [address] [id number] [address] [place] [address], [place] [address] Jun, [facility] [address] [id number] [address] [place] [address], [place] [address] Jun, [facility] [address] [id number] [address] [place] [address], [place] [address] Jun, [facility] [address] [id number] [address] [place] [address], [place] [address] May, [facility] [address] [id number] [address] [place] [address], [place] [address] Apr, [facility] [address] [id number] [address] [place] [address], [place] [address] Apr, [facility] [address] [id number] [address] [place] [address], [place] [address] March, [facility] [address] [id number] [address] [place] [address], [place] [address] March, [facility] [address] [id number] [address] [place] [address], [place] [address] March, [facility] [address] [id number] [address] [place] [address], [place] [address] March, [facility] [address] [id number] [address] [place] [address], [place] [address] March, [facility] [address] [id number] [address] [place] [address], [place] [address] Feb, [facility] [address] [id number] [address] [place] [address], [place] [address] Feb, [facility] [address] [id number] [address] [place] [address], [place] [address] Jan, [facility] [address] [id number] [facility] [place] [address] 25 Jan, 2013 [facility] [address] [id number] [address] [place] [address], [place] [address] 21 Jan, 2013 [facility] [address] [id number] [address] [place] [address], [place] [address] 15 Jan, 2013 [facility] [address] [id number] [address] [place] [address], [place] [address] 15 Jan, 2013 [facility] [address] [id number] [address] [place] [address], [place] [address] 14 Jan, 2013 [facility] [address] [id number] [address] [place] [address], [place] [address] 14 Jan, 2013 [facility] [address] [id number] [address] [place] [address], [place] [address] 13 Jan, 2013 [facility] [address] [id number] [address] [place] [address], [place] [address] 26 Dec, 2012 [facility] [address] [id number] [address] [place] [address], [place] [address] 18 Dec, 2012 [facility] [address] [id number] [address] [place] [address], [place] [address] 15 Dec, 2012 [facility] [address] [id number] [address] [place] [address], [place] [address] 15 Dec, 2012 [facility] [address] [id number] [address] [place] [address], [place] [address] 14 Dec, 2012 [facility] [address] [id number] [address] [place] [address], [place] [address] 13 Dec, 2012 [facility] [address] [id number] [address] [place] [address], [place] [address] 12 Dec, 2012 [facility] [address] [id number] [address] [place] [address], [place] [address] 05 Dec, 2012 [facility] [address] [id number] [address] [place] [address] Nov, [facility] [address] [facility] [id number] [address] [place] [address] Nov, [facility] [address] [facility] [id number] [address] [place] [address] Nov, [facility] [address] [facility] [id number] [address] [place] [address] Nov, IMMUNIZATIONS No Known Immunizations SOCIAL HISTORY Never Assessed REASON FOR VISIT Blood Pressure-doing well, brought in log since dc'd amlodipine and bp's are doi ng well-AHarrymanRN PLAN OF CARE Activity Details Follow Up 3 months Reason:BP Anxiety VITAL SIGNS Height 64 in 2017-07-08 Weight 104.8 lbs 2017-07-08 Temperature 98.3 degrees Fahrenheit 2017-07-08 Heart Rate 82 bpm 2017-07-08 Respiratory Rate 20 2017-07-08 BMI 17.99 kg/m2 2017-07-08 Blood pressure systolic 106 mmHg 2017-07-08 Blood pressure diastolic 72 mmHg 2017-07-08 MEDICATIONS Medication Instructions Dosage Frequency Start Date End Date Duration S tatus Fluoxetine HCl 20 MG orally once daily TAKE ONE capsule 24h Active Ferrous Sulfate 325 (65 Fe) mg Active Calcium 600 mg 1 Capsule by Oral route 2 times per day 2 2 Jun, 2013 Active Vitamin D 1000 UNIT Orally 2 times a day 1 tablet 12h Active Vitamin C 500 MG Orally Once a day 1 tablet 24h Active Lorazepam 0.5 MG Orally Once a day 1 tablet as needed 24h 28 days Active RESULTS No Results PROCEDURES Procedure Date Ordered Result Body Site [facility] VISIT ESTABLISHED PATIENT Jul 08, 2017 INSTRUCTIONS MEDICATIONS ADMINISTERED No Known Medications [...]
[2020-02-19] MEDS ORDERED: TETANUS,DIPTH,PERTUSS P/F (BOOSTRIX) 0.5 ML VIAL IM ONE (13:45)
--- NOTE | 2020-02-19 13:48 | ED Syncope ---
General Chief Complaint: Dizziness/Syncope Stated Complaint: SYNCOPE History of Present Illness Date Seen by Provider: Feb 19, 2020 Time Seen by Provider: 13:35 Initial Comments 64-year-old female reports going for a walk this morning, she had gone approximately 1 mile and became weak. She sat on the ground and reports feeling dazed for a few moments (30 sec or less) Her sister was with her. This happened 2 additional times. She also reports that her tremors have gotten worse, never has known the cause, she has seen a neurologist and is not parkinsons. She gets weak or falls easily, was using cane today. She walks 2 miles daily, she ate breakfast this morning and dinner last evening. She sustained abrasion to right knee. Denies SOA, chest pain, n/v/d, or headache. She does not take anticoagulants or ASA. No history of diabetes or CAD. Is unsure of her last tetanus vaccine. No known COVID 19 exposure, has been staying home, no fevers, or cough. Timing/Prior Episodes: No Prior History Symptoms Prior to Episode: Lightheadedness Loss of Consciousness: Brief (Seconds) Current Symptoms: Back to Normal; No Blurred Vision, No Chest Pain, No Diaphoresis, No Dizziness, No Headache; Injury (abrasian right knee, no active bleeding. ); No Lightheadedness, No Loss of Bladder Control, No Loss of Bowel Control, No Motionless, No Nausea, No Pale, No Shallow/Rapid Breathing, No Weak/Absent Pulse, No Weakness Allergies and Home Medications Allergies Coded Allergies: Penicillins (Verified Allergy, Unknown, 06/02/18) alendronate sodium (Verified Allergy, Unknown, 06/02/18) bacitracin (Verified Allergy, Unknown, 06/02/18) lactose (Verified Allergy, Unknown, 06/02/18) neomycin (Verified Allergy, Unknown, 06/02/18) polymyxin B (Verified Allergy, Unknown, 06/02/18) raloxifene (Verified Allergy, Unknown, leg swelling, 06/02/18) Home Medications Calcium Carbonate 600 Mg Tablet, 600 MG PO BID, (Reported) Cholecalciferol (Vitamin D3) 1,000 Unit Tablet, 1,000 UNIT PO BID, (Reported) Cyanocobalamin (Vitamin B-12) 2,500 Mcg Tablet, 2,500 MCG PO DAILY, (Reported) Ferrous Sulfate, Dried 159 Mg Tablet.er, 159 MG PO DAILY, (Reported) Fluoxetine HCl 20 Mg Capsule, 20 MG PO DAILY, (Reported) Lorazepam 0.5 Mg Tablet, 0.5 MG PO HS, (Reported) Cobb-3 Fatty Acids 1,000 Mg Capsule, 1,000 MG PO DAILY, (Reported) Tramadol HCl 50 Mg Tablet, 50 MG PO PRN, (Reported) Patient Home Medication List Home Medication List Reviewed: Yes Review of Systems Constitutional: see HPI, weakness EENTM: see HPI, no symptoms reported Respiratory: no symptoms reported, see HPI; No short of breath, No wheezing Cardiovascular: no symptoms reported, see HPI; No chest pain Gastrointestinal: no symptoms reported, see HPI; No abdominal pain, No constipation, No loss of appetite, No nausea, No vomiting Genitourinary: no symptoms reported Musculoskeletal: no symptoms reported, see HPI Skin: see HPI, other (abrasion right knee and left forehad. ) Psychiatric/Neurological: No Symptoms Reported, See HPI; Denies Headache All Other Systems Reviewed Negative Unless Noted: Yes Past Sivnmlu-Yltrec-Vygxjs Hx Past Med/Social Hx: Reviewed Nursing Past Med/Soc Hx Patient Social History Alcohol Use: Denies Use Recreational Drug Use: No (ALCOHOLISM - denies at this time. ) Smoking Status: Former Smoker Former Smoker, Quit: Jun 02, 2013 Recent Hopitalizations: No Seasonal Allergies Seasonal Allergies: No Past Medical History Surgeries: Yes (jaw resection, Left knee scope, SPINE, L TKR) Respiratory: No Cardiac: No Neurological: Yes (ESSENTIAL TREMORS) Reproductive Disorders: No Sexually Transmitted Disease: No HIV/AIDS: No Genitourinary: No Gastrointestinal: No Musculoskeletal: Yes Scoliosis, Chronic Back Pain Endocrine: No HEENT: No (dentures) Loss of Vision: Bilateral Hearing Impairment: Denies Cancer: No Psychosocial: Yes Anxiety, Depression Integumentary: No Blood Disorders: Yes (ANEMIA) Adverse Reaction/Blood Tranf: No (N/A) Family Medical History Cardiovascular disease 19 MOTHER Diabetes mellitus 19 MOTHER Hypertension 19 MOTHER Myocardial infarction 19 MOTHER Psychosocial problem 19 FATHER 19 MOTHER G8 SISTER Diabetes, Hypertension Physical Exam Vital Signs Vital Signs - First Documented 02/19/20 13:26 Temp 37.4 Pulse 85 Resp 16 B/P (MAP) 118/96 (103) Pulse Ox 98 O2 Delivery Room Air Capillary Refill : Height, Weight, BMI Height: 5'2.00" Weight: 98lbs. 8.0oz. 44.544474it; 18.0 BMI Method:Estimated General Appearance: No Apparent Distress, WD/WN, Other (intentional tremor) HEENT: PERRL/EOMI, TMs Normal, Normal ENT Inspection, Pharynx Normal Neck: Full Range of Motion, Normal Inspection, Non Tender, Supple Cardiovascular: Regular Rate, Rhythm, No Edema, No Murmur, Normal Peripheral Pulses Respiratory: Chest Non Tender, Lungs Clear, Normal Breath Sounds, No Respiratory Distress Gastrointestinal: Normal Bowel Sounds, Non Tender, Soft Back: Normal Inspection, No CVA Tenderness Extremities: Normal Capillary Refill, Normal Range of Motion, Non Tender (except right ant knee), No Calf Tenderness, No Pedal Edema Neurologic/Psychiatric: Alert, Oriented x3, No Motor/Sensory Deficits, Normal Mood/Affect, fuse coiler II-XII Norm as Tested Cranial Nerves: Normal Hearing, Normal Speech, PERRL Coordination/Gait: Normal Finger to Nose Skin: Normal Color, Warm/Dry, Other (Superficial abrasion to right knee, no s kin changes to left forehead) Progress/Results/Core Measures Results/Orders Lab Results Laboratory Tests Test 02/19/20 13:35 02/19/20 13:45 02/19/20 13:55 Range/Units White Blood Count 4.4 4.3-11.0 10^3/uL Red Blood Count 4.09 L 4.35-5.85 10^6/uL Hemoglobin 12.0 11.5-16.0 G/DL Hematocrit 34 L 35-52 % Mean Corpuscular Volume 84 80-99 FL Mean Corpuscular Hemoglobin 29 25-34 PG Mean Corpuscular Hemoglobin Concent 35 32-36 G/DL Red Cell Distribution Width 12.9 10.0-14.5 % Platelet Count 288 130-400 10^3/uL Mean Platelet Volume 9.1 7.4-10.4 FL Neutrophils (%) (Auto) 49 42-75 % Lymphocytes (%) (Auto) 37 12-44 % Monocytes (%) (Auto) 13 H 0-12 % Eosinophils (%) (Auto) 1 0-10 % Basophils (%) (Auto) 1 0-10 % Neutrophils # (Auto) 2.1 1.8-7.8 X 10^3 Lymphocytes # (Auto) 1.6 1.0-4.0 X 10^3 Monocytes # (Auto) 0.6 0.0-1.0 X 10^3 Eosinophils # (Auto) 0.1 0.0-0.3 10^3/uL Basophils # (Auto) 0.0 0.0-0.1 10^3/uL Sodium Level 131 L 135-145 MMOL/L Potassium Level 4.4 3.6-5.0 MMOL/L Chloride Level 100 98-107 MMOL/L Carbon Dioxide Level 19 L 21-32 MMOL/L Anion Gap 12 5-14 MMOL/L Blood Urea Nitrogen 9 7-18 MG/DL Creatinine 0.73 0.60-1.30 MG/DL Estimat Glomerular Filtration Rate > 60 BUN/Creatinine Ratio 12 Glucose Level 100 70-105 MG/DL Calcium Level 9.3 8.5-10.1 MG/DL Corrected Calcium 9.3 8.5-10.1 MG/DL Total Bilirubin 0.3 0.1-1.0 MG/DL Aspartate Amino Transf (AST/SGOT) 31 5-34 U/L Alanine Aminotransferase (ALT/SGPT) 10 0-55 U/L Alkaline Phosphatase 53 40-136 U/L Troponin I < 0.028 <0.028 NG/ML Total Protein 7.6 6.4-8.2 GM/DL Albumin 4.0 3.2-4.5 GM/DL TSH [place] Testing 1.18 0.35-4.94 UIU/ML Glucometer 103 70-110 MG/DL Urine Color YELLOW Urine Clarity CLEAR Urine pH 7.5 5-9 Urine Specific [place] 1.015 L 1.016-1.022 Urine Protein TRACE H NEGATIVE Urine Glucose (UA) NEGATIVE NEGATIVE Urine Ketones NEGATIVE NEGATIVE Urine Nitrite NEGATIVE NEGATIVE Urine Bilirubin NEGATIVE NEGATIVE Urine Urobilinogen 0.2 < = 1.0 MG/DL Urine Leukocyte Esterase TRACE H NEGATIVE Urine RBC (Auto) NEGATIVE NEGATIVE Urine RBC 0-2 /HPF Urine WBC RARE /HPF Urine Squamous Epithelial Cells RARE /HPF Urine Crystals PRESENT H /LPF Urine Amorphous Sediment FEW JEANCARLOS URATES H /LPF Urine Bacteria NEGATIVE /HPF Urine Casts NONE /LPF Urine Mucus SMALL H /LPF Urine Culture Indicated NO My Orders Orders - MIKE CALDERON Cbc With Automated Diff (02/19/20 13:36) Comprehensive Metabolic Panel (02/19/20 13:36) Thyroid Analyzer (02/19/20 13:36) Troponin I (02/19/20 13:36) Ua Culture If Indicated (02/19/20 13:36) Accucheck Stat ONCE (02/19/20 13:36) Ed Iv/Invasive Line Start (02/19/20 13:36) Ns Iv 1000 Ml (Sodium Chloride 0.9%) (02/19/20 13:36) Ekg Tracing (02/19/20 13:36) Dipht,Pertuss(Acell),Tet Adult (Boostrix (02/19/20 13:45) Ct Head Wo (02/19/20 13:53) Chest Pa/Lat (2 View) (02/19/20 14:01) Alcohol (02/19/20 14:07) Medications Given in ED Current Medications Medications Dose Ordered Sig/Cristi Route Start Time Stop Time Status Last Admin Dose Admin Diphtheria/ Tetanus/Acell Pertussis 0.5 ml ONCE ONCE IM 02/19/20 13:45 02/19/20 13:46 DC 02/19/20 13:50 0.5 ML Vital Signs/I&O 02/19/20 02/19/20 13:26 14:00 Temp 37.4 Pulse 85 84 94 114 Resp 16 B/P (MAP) 118/96 (103) 138/75 (96) 110/75 (87) 94/63 (73) Pulse Ox 98 O2 Delivery Room Air Progress Progress Note : Time: 13:35 Progress Note Patient seen and evaluated, will obtain labs, orthostatic blood pressures, EKG, CT head and chest x-ray. B/P and pulse Laying 138/75 and P 84, sitting 110/75 and P 94; and 94 and standing 94/63 and P 114. No SOA or dizziness when moved to standing. Can bear weight on right knee, no instability. 1410 Labs, CT and CXR all WNL. Patient had no further syncopal events. Alert and oriented. 1445 B/P standing 123/78, IV almost infused. Taking ice chips. Discharge instructions and return precautions reviewed with the patient. Initial ECG Impression Date: Feb 19, 2020 Initial ECG Impression Time: 13:39 Initial ECG Rate: 85 Initial ECG Rhythm: Normal Sinus Initial ECG Intervals: Normal Initial ECG Intervals [place] 180, QRSD 68, QT 353, QTc 420 Mascot P 76, QRS 70, T 66 Initial ECG Impression: Normal Initial ECG Comparisson: No Previous ECG Available Diagnostic Imaging Diagonstic Imaging: Xray Comments NAME: [facility] REC#: [id number] PT STATUS: REG ER : 1955 PHYSICIAN: MIKE CALDERON ADMIT DATE: 02/19/20/ER Draft Date of Exam:02/19/20 CHEST PA/LAT (2 VIEW) Indication: Syncope x3 today, dyspnea. Comparison: 04/13/2017. Discussion: Two views of the chest were obtained. The lungs remain hyperinflated. Normal heart size. No consolidation, pleural fluid, or pneumothorax. Postoperative changes of the thoracolumbar spine appear stable, as visualized. Impression: 1. No acute cardiopulmonary process. Dictated on workstation # [id number] Dict: 02/19/20 1419 Trans: 02/19/20 1422 [facility] [id number] Interpreted by: DIGNA SHEPPARD MD Electronically signed by: Reviewed: Reviewed by Me Diagonstic Imaging: CT Plain Films/CT/US/NM/MRI: head Comments NAME: [facility] REC#: [id number] PT STATUS: REG ER : 1955 PHYSICIAN: MIKE CALDERON ADMIT DATE: 02/19/20/ER Draft Date of Exam:02/19/20 CT HEAD WO PROCEDURE: CT head without contrast. TECHNIQUE: Multiple contiguous axial images were obtained through the brain without the use of intravenous contrast. Auto Exposure Controls were utilized during the CT exam to meet ALARA standards for radiation dose reduction. INDICATION: Syncopal episode 3 times today, altered metal status. Comparison: 05/05/2018. Discussion: No adverse interval change. No intracranial hemorrhage, mass, midline shift, or hydrocephalus. The ventricles and sulci are normal size and configuration for age. The visualized orbits, paranasal sinuses, mastoid air cells, and calvarium are unremarkable. Impression: 1. Stable negative head CT. Dictated on workstation # [id number] Dict: 02/19/20 1410 Trans: 02/19/20 1413 [facility] [id number] Interpreted by: DIGNA SHEPPARD MD Electronically signed by: Departure Impression Primary Impression: Syncope Qualified Codes: R55 - Syncope and collapse Disposition: 01 HOME, SELF-CARE Condition: Improved Departure-Patient Inst. Decision time for Depature: 14:45 Referrals: AURELIA SPIVEY DO (PCP) Primary Care Physician JOLANTA EATON APRN (Family) Primary Care Physician Patient Instructions: Syncope (Fainting) (DC) Add. Discharge Instructions: Change positions slowly and use her cane for ambulation to prevent falls. Increase water intake, 16 ounces every 2 hours while awake. Follow-up with your primary care provider if symptoms are not improving or worsen. Avoid any prolonged walks for the next 2-3 days and make sure her sisters with he will go on walks. Return to the emergency department for new, urgent health care needs. All discharge instructions reviewed with patient and/or family. Voiced understanding. MIKE CALDERON Feb 19, 2020 13:48
[2020-02-19 13:53] LABS: BASOPHILS % (AUTO) 1 % (0-10); EOSINOPHILS # (AUTO) 0.1 10^3/uL (0.0-0.3); EOSINOPHILS % (AUTO) 1 % (0-10); HEMATOCRIT 34 % (35-52); LYMPHOCYTES # (AUTO) 1.6 X 10^3 (1.0-4.0); LYMPHOCYTES % (AUTO) 37 % (12-44); MEAN CORPUSCULAR HEMOGLOBIN 29 PG (25-34); MEAN CORPUSCULAR HGB CONC 35 G/DL (32-36); MEAN CORPUSCULAR VOLUME 84 FL (80-99); MEAN PLATELET VOLUME 9.1 FL (7.4-10.4); MONOCYTES # (AUTO) 0.6 X 10^3 (0.0-1.0); MONOCYTES % (AUTO) 13 % (0-12); NEUTROPHILS # (AUTO) 2.1 X 10^3 (1.8-7.8); NEUTROPHILS % (AUTO) 49 % (42-75); PLATELET COUNT 288 10^3/uL (130-400); RED CELL DISTRIBUTION WIDTH 12.9 % (10.0-14.5); WHITE BLOOD COUNT 4.4 10^3/uL (4.3-11.0)
[2020-02-19 14:00] VITALS: BP_SYST 110; BP_SYST 138; BP_SYST 94; BP_DIAS 63; BP_DIAS 75
[2020-02-19 14:04] LABS: BILIRUBIN,URINE NEGATIVE (NEGATIVE); CLARITY,URINE CLEAR; COLOR,URINE YELLOW; GLUCOSE, URINE (UA) NEGATIVE (NEGATIVE); KETONES,URINE NEGATIVE (NEGATIVE); LEUKOCYTE ESTERASE ,URINE TRACE (NEGATIVE); NITRITE,URINE NEGATIVE (NEGATIVE); PH,URINE 7.5 (5-9); PROTEIN,URINE TRACE (NEGATIVE)
[2020-02-19 14:07] LABS: CHLORIDE 100 MMOL/L (98-107); POTASSIUM 4.4 MMOL/L (3.6-5.0); SODIUM 131 MMOL/L (135-145)
[2020-02-19 14:09] LABS: CALCIUM 9.3 MG/DL (8.5-10.1)
[2020-02-19 14:10] LABS: GLUCOSE 100 MG/DL (70-105); TOTAL PROTEIN 7.6 GM/DL (6.4-8.2)
[2020-02-19 14:11] LABS: CARBON DIOXIDE 19 MMOL/L (21-32)
[2020-02-19 14:12] LABS: BILIRUBIN,TOTAL 0.3 MG/DL (0.1-1.0)
[2020-02-19 14:13] LABS: BACTERIA,URINE NEGATIVE /HPF; RBC,URINE 0-2 /HPF; SQUAMOUS EPITHELIAL CELL,UR RARE /HPF; WBC,URINE RARE /HPF
[2020-02-19 14:13] LABS: ALKALINE PHOSPHATASE 53 U/L (40-136); CREATININE SERUM 0.73 MG/DL (0.60-1.30); GFR ESTIMATED > 60
--- NOTE | 2020-02-19 14:13 | Diagnostic Imaging Report ---
PROCEDURE: CT head without contrast. TECHNIQUE: Multiple contiguous axial images were obtained through the brain without the use of intravenous contrast. Auto Exposure Controls were utilized during the CT exam to meet ALARA standards for radiation dose reduction. INDICATION: Syncopal episode 3 times today, altered metal status. Comparison: 05/05/2018. Discussion: No adverse interval change. No intracranial hemorrhage, mass, midline shift, or hydrocephalus. The ventricles and sulci are normal size and configuration for age. The visualized orbits, paranasal sinuses, mastoid air cells, and calvarium are unremarkable. Impression: 1. Stable negative head CT. Dictated by: Dictated on workstation # [id number]
[2020-02-19 14:14] LABS: AMORPHOUS SEDIMENT,UR FEW AMOR URATES /LPF
[2020-02-19 14:14] LABS: BUN/CREATININE RATIO 12
[2020-02-19 14:16] LABS: ALANINE AMINOTRANSFERASE 10 U/L (0-55)
--- NOTE | 2020-02-19 14:23 | Diagnostic Imaging Report ---
Indication: Syncope x3 today, dyspnea. Comparison: 04/13/2017. Discussion: Two views of the chest were obtained. The lungs remain hyperinflated. Normal heart size. No consolidation, pleural fluid, or pneumothorax. Postoperative changes of the thoracolumbar spine appear stable, as visualized. Impression: 1. No acute cardiopulmonary process. Dictated by: Dictated on workstation # [id number]
[2020-02-19 14:36] LABS: TSH (THYROID ANALYZER) 1.18 UIU/ML (0.35-4.94)
--- NOTE | 2020-02-19 14:55 | NUR ---
MIKE IN TALKING TO PT AT THIS TIME.
[2020-02-19 15:12] VITALS: BP 137/76
== END 2020-02-19 15:12 | disposition home or self-care (01) ==
LOC: EDUNIT# 13:26 → ER 13:28
DX: R55 Syncope and collapse (principal); G25.0 Essential tremor; M41.9 Scoliosis, unspecified; M54.9 Dorsalgia, unspecified; F41.9 Anxiety disorder, unspecified; F32.9 Major depressive disorder, single episode, unspecified; S80.211A Abrasion, right knee, initial encounter; Z87.891 Personal history of nicotine dependence; Z96.652 Presence of left artificial knee joint; Z79.899 Other long term (current) drug therapy; Z88.0 Allergy status to penicillin; Z88.8 Allergy status to other drugs, medicaments and biological substances; Z23 Encounter for immunization
CPT/HCPCS: 36415; 70450; 71046; 80053; 80320; 81000; 82962; 84443; 84484; 85025; 90715; 93005

== ENCOUNTER 2020-03-05 09:00 | Emergency (ER) | payer MEDICARE ==
[~2020-03-05] VITALS: Ht 162.6 cm; Wt 47.7 kg
[2020-03-05 09:33] LABS: BASOPHILS % (AUTO) 1 % (0-10); EOSINOPHILS # (AUTO) 0.1 10^3/uL (0.0-0.3); EOSINOPHILS % (AUTO) 3 % (0-10); HEMATOCRIT 33 % (35-52); HEMOGLOBIN 10.9 G/DL (11.5-16.0); LYMPHOCYTES # (AUTO) 0.8 X 10^3 (1.0-4.0); LYMPHOCYTES % (AUTO) 20 % (12-44); MEAN CORPUSCULAR HEMOGLOBIN 28 PG (25-34); MEAN CORPUSCULAR HGB CONC 33 G/DL (32-36); MEAN CORPUSCULAR VOLUME 85 FL (80-99); MEAN PLATELET VOLUME 8.4 FL (7.4-10.4); MONOCYTES # (AUTO) 0.3 X 10^3 (0.0-1.0); MONOCYTES % (AUTO) 7 % (0-12); NEUTROPHILS # (AUTO) 2.8 X 10^3 (1.8-7.8); NEUTROPHILS % (AUTO) 70 % (42-75); PLATELET COUNT 398 10^3/uL (130-400); RED CELL DISTRIBUTION WIDTH 12.6 % (10.0-14.5); WHITE BLOOD COUNT 4.1 10^3/uL (4.3-11.0)
--- NOTE | 2020-03-05 09:52 | Diagnostic Imaging Report ---
PROCEDURE: CT head and CT cervical spine without contrast. TECHNIQUE: Multiple contiguous axial images were obtained through the brain and cervical spine without the use of intravenous contrast. Sagittal and coronal reformations through the cervical spine were then performed. Auto Exposure Controls were utilized during the CT exam to meet ALARA standards for radiation dose reduction. INDICATION: Multiple falls. Head and neck pain. Comparison with 02/19/2020. FINDINGS: CT HEAD: There is no evidence of intracranial hemorrhage. Ventricles and cortical gyral pattern are normal. There is no mass effect. No extra-axial fluid collection. Basal cisterns are clear. Pituitary is not enlarged. Mastoid air cells and paranasal sinuses are well-aerated and clear where visualized. No calvarial fractures. IMPRESSION: Negative CT head without contrast. CERVICAL SPINE: Sagittal and coronal reformatted images show kyphotic changes from advanced degenerative disease centered at C5 and C7. The body height is well-maintained. Facets show good alignment. Hypertrophic endplate changes are present anteriorly at C5-C6 and C6-C7. No spinal stenosis. The odontoid is in good alignment. Moderate degenerative changes of the atlantoaxial joint. There are no acute fractures. The prevertebral soft tissues are not widened. IMPRESSION: Diffuse degenerative cervical spondylosis as described with no acute abnormalities. Dictated by: Dictated on workstation # [id number]
[2020-03-05 09:54] LABS: ALANINE AMINOTRANSFERASE 11 U/L (0-55); ALKALINE PHOSPHATASE 60 U/L (40-136); BILIRUBIN,TOTAL 0.3 MG/DL (0.1-1.0); BUN/CREATININE RATIO 15; CALCIUM 9.8 MG/DL (8.5-10.1); CARBON DIOXIDE 24 MMOL/L (21-32); CHLORIDE 99 MMOL/L (98-107); CREATININE SERUM 0.73 MG/DL (0.60-1.30); GFR ESTIMATED > 60; GLUCOSE 91 MG/DL (70-105); MAGNESIUM 2.1 MG/DL (1.6-2.4); POTASSIUM 3.8 MMOL/L (3.6-5.0); SODIUM 134 MMOL/L (135-145); TOTAL PROTEIN 7.9 GM/DL (6.4-8.2)
--- NOTE | 2020-03-05 10:00 | NUR ---
After pt verbal agreement, this RN updated sister, Nazia, regarding pt condition et plan of care.
--- NOTE | 2020-03-05 10:15 | NUR ---
Cervical collar cleared by Dr. Sanders at 1015.
[2020-03-05] MEDS ORDERED: PRIM50TA33 PO (10:30)
--- NOTE | 2020-03-05 10:30 | ED Fall/Injury ---
General Chief Complaint: Trauma-Non Activation Stated Complaint: FALL Nursing Triage Note: See previous note. Source: patient, EMS, old records Exam Limitations: no limitations History of Present Illness Date Seen by Provider: Mar 05, 2020 Time Seen by Provider: 09:07 Initial Comments This 64-year-old woman presents to the emergency room via EMS after having a fall in the home. She fell out of the shower onto the floor. She denies sign ificant headache injury but has had neck pain. C-collar was placed by EMS. Although patient has had recent history of syncopal episodes, she denies any syncope or lightheadedness today. She believes her worsening tremors are partially responsible for her falls. She has minor elbow pain as well but does not appear to have significant injury there. Location Injury Occurred: Home in shower. Allergies and Home Medications Allergies Coded Allergies: Penicillins (Verified Allergy, Unknown, 06/02/18) alendronate sodium (Verified Allergy, Unknown, 06/02/18) bacitracin (Verified Allergy, Unknown, 06/02/18) lactose (Verified Allergy, Unknown, 06/02/18) neomycin (Verified Allergy, Unknown, 06/02/18) polymyxin B (Verified Allergy, Unknown, 06/02/18) raloxifene (Verified Allergy, Unknown, leg swelling, 06/02/18) Home Medications Calcium Carbonate 600 Mg Tablet, 600 MG PO BID, (Reported) Cholecalciferol (Vitamin D3) 1,000 Unit Tablet, 1,000 UNIT PO BID, (Reported) Cyanocobalamin (Vitamin B-12) 2,500 Mcg Tablet, 2,500 MCG PO DAILY, (Reported) Ferrous Sulfate, Dried 159 Mg Tablet.er, 159 MG PO DAILY, (Reported) Fluoxetine HCl 20 Mg Capsule, 20 MG PO DAILY, (Reported) Lorazepam 0.5 Mg Tablet, 0.5 MG PO HS, (Reported) [place]-3 Fatty Acids 1,000 Mg Capsule, 1,000 MG PO DAILY, (Reported) Primidone 50 Mg Tablet, 25 MG PO HS Prescribed by: ZENY DUBOSE on 03/05/20 1030 Tramadol HCl 50 Mg Tablet, 50 MG PO PRN, (Reported) Patient Home Medication List Home Medication List Reviewed: Yes Review of Systems Review of Systems Constitutional: no symptoms reported Eyes: No Symptoms Reported Ears, Nose, Mouth, Throat: no symptoms reported Respiratory: no symptoms reported Cardiovascular: no symptoms reported Gastrointestinal: no symptoms reported Genitourinary: no symptoms reported : No Musculoskeletal: see HPI Skin: no symptoms reported Psychiatric/Neurological: See HPI Past Cnneqec-Ignqcb-Vagerk Hx Patient Social History Alcohol Use: Denies Use Recreational Drug Use: Yes (ALCOHOLISM) Smoking Status: Former Smoker Type Used: Cigarettes Former Smoker, Quit: Jun 02, 2013 Recent Foreign Travel: No Contact w/Someone Who Travel: No Recent Infectious Disease Expo: No Recent Hopitalizations: No Physical Abuse: No Sexual Abuse: No Seasonal Allergies Seasonal Allergies: No Past Medical History Surgeries: Yes (jaw resection, Left knee scope, SPINE, L TKR) Respiratory: No Cardiac: No Syncope Neurological: Yes (ESSENTIAL TREMORS) Reproductive Disorders: No Sexually Transmitted Disease: No HIV/AIDS: No Genitourinary: No Gastrointestinal: No Musculoskeletal: Yes Scoliosis, Chronic Back Pain Endocrine: No HEENT: No (dentures) Loss of Vision: Bilateral Hearing Impairment: Denies Cancer: No Psychosocial: Yes Anxiety, Depression Integumentary: No Blood Disorders: Yes (ANEMIA) Adverse Reaction/Blood Tranf: No (N/A) Family Medical History Reviewed Nursing Family Hx Cardiovascular disease 19 MOTHER Diabetes mellitus 19 MOTHER Hypertension 19 MOTHER Myocardial infarction 19 MOTHER Psychosocial problem 19 FATHER 19 MOTHER G8 SISTER Diabetes, Hypertension Physical Exam Vital Signs Vital Signs - First Documented 03/05/20 09:03 Temp 36.9 Pulse 88 Resp 17 B/P (MAP) 135/76 (95) Pulse Ox 97 O2 Delivery Room Air Capillary Refill : Less Than 3 Seconds Height, Weight, BMI Height: 5'2.00" Weight: 98lbs. 8.0oz. 44.672732ng; 18.00 BMI Method:Estimated General Appearance: WD/WN, no apparent distress, thin HEENT: PERRL/EOMI, normal ENT inspection, pharynx normal Neck: normal inspection, tender midline Cardiovascular: regular rate, rhythm, no edema, no murmur Respiratory: lungs clear, normal breath sounds, no respiratory distress, no accessory muscle use Gastrointestinal: normal bowel sounds, non tender, soft Extremities: normal inspection, no pedal edema, other (slight tenderness of the left elbow with no pain with range of motion) Neurologic/Psychiatric: marine architect II-XII nml as tested, no motor/sensory deficits, alert, normal mood/affect, oriented x 3, other (tremors) Skin: normal color, warm/dry Gutierrez Coma Score Best Eye Response: (4) Open Spontaneously Best Verbal Response: (5) Oriented Best Motor Response: (6) Obeys Commands [place] Total: 15 Progress/Results/Core Measures Results/Orders Lab Results Laboratory Tests Test 03/05/20 09:25 03/05/20 10:30 Range/Units White Blood Count 4.1 L 4.3-11.0 10^3/uL Red Blood Count 3.85 L 4.35-5.85 10^6/uL Hemoglobin 10.9 L 11.5-16.0 G/DL Hematocrit 33 L 35-52 % Mean Corpuscular Volume 85 80-99 FL Mean Corpuscular Hemoglobin 28 25-34 PG Mean Corpuscular Hemoglobin Concent 33 32-36 G/DL Red Cell Distribution Width 12.6 10.0-14.5 % Platelet Count 398 130-400 10^3/uL Mean Platelet Volume 8.4 7.4-10.4 FL Neutrophils (%) (Auto) 70 42-75 % Lymphocytes (%) (Auto) 20 12-44 % Monocytes (%) (Auto) 7 0-12 % Eosinophils (%) (Auto) 3 0-10 % Basophils (%) (Auto) 1 0-10 % Neutrophils # (Auto) 2.8 1.8-7.8 X 10^3 Lymphocytes # (Auto) 0.8 L 1.0-4.0 X 10^3 Monocytes # (Auto) 0.3 0.0-1.0 X 10^3 Eosinophils # (Auto) 0.1 0.0-0.3 10^3/uL Basophils # (Auto) 0.0 0.0-0.1 10^3/uL Sodium Level 134 L 135-145 MMOL/L Potassium Level 3.8 3.6-5.0 MMOL/L Chloride Level 99 98-107 MMOL/L Carbon Dioxide Level 24 21-32 MMOL/L Anion Gap 11 5-14 MMOL/L Blood Urea Nitrogen 11 7-18 MG/DL Creatinine 0.73 0.60-1.30 MG/DL Estimat Glomerular Filtration Rate > 60 BUN/Creatinine Ratio 15 Glucose Level 91 70-105 MG/DL Calcium Level 9.8 8.5-10.1 MG/DL Corrected Calcium 9.8 8.5-10.1 MG/DL Magnesium Level 2.1 1.6-2.4 MG/DL Total Bilirubin 0.3 0.1-1.0 MG/DL Aspartate Amino Transf (AST/SGOT) 31 5-34 U/L Alanine Aminotransferase (ALT/SGPT) 11 0-55 U/L Alkaline Phosphatase 60 40-136 U/L Total Protein 7.9 6.4-8.2 GM/DL Albumin 4.0 3.2-4.5 GM/DL Urine Color YELLOW Urine Clarity CLEAR Urine pH 8.0 5-9 Urine Specific [place] 1.010 L 1.016-1.022 Urine Protein NEGATIVE NEGATIVE Urine Glucose (UA) NEGATIVE NEGATIVE Urine Ketones NEGATIVE NEGATIVE Urine Nitrite NEGATIVE NEGATIVE Urine Bilirubin NEGATIVE NEGATIVE Urine Urobilinogen 0.2 < = 1.0 MG/DL Urine Leukocyte Esterase NEGATIVE NEGATIVE Urine RBC (Auto) NEGATIVE NEGATIVE Urine RBC NONE /HPF Urine WBC 0-2 /HPF Urine Squamous Epithelial Cells RARE /HPF Urine Crystals NONE /LPF Urine Amorphous Sediment FEW JEANCARLOS PHOSPHATE H /LPF Urine Bacteria FEW H /HPF Urine Casts NONE /LPF Urine Mucus NEGATIVE /LPF Urine Culture Indicated YES My Orders Orders - ZENY MONTEJO MD Ed Iv/Invasive Line Start (03/05/20 09:17) Ekg Tracing (03/05/20 09:17) Monitor-Rhythm Ecg Trace Only (03/05/20 09:17) Ct Head/Cervical Spine Wo (03/05/20 09:17) Cbc With Automated Diff (03/05/20 09:17) Comprehensive Metabolic Panel (03/05/20 09:17) Magnesium (03/05/20 09:17) Ua Culture If Indicated (03/05/20 09:17) Urine Culture (03/05/20 10:30) Vital Signs/I&O 03/05/20 03/05/20 09:03 11:10 Temp 36.9 36.9 Pulse 88 92 Resp 17 18 B/P (MAP) 135/76 (95) 135/87 (95) Pulse Ox 97 98 O2 Delivery Room Air Room Air Blood Pressure Mean: 95 Initial ECG Impression Date: Mar 05, 2020 Initial ECG Impression Time: 09:22 Initial ECG Rate: 84 Initial ECG Rhythm: Normal Sinus Initial ECG Intervals: Normal Initial ECG Impression: Normal Comment Normal sinus rhythm with no ST elevation or depression. No abnormal intervals or axis deviation. Diagnostic Imaging Diagonstic Imaging: CT Plain Films/CT/US/NM/MRI: c-spine, head Comments CT head and C-spine viewed by me and report reviewed. See report below: NAME: LOUISE VALE [facility] REC#: [id number] PT STATUS: REG ER : 1955 PHYSICIAN: ZENY MONTEJO MD ADMIT DATE: 03/05/20/ER Signed Date of Exam:03/05/20 CT HEAD/CERVICAL SPINE WO PROCEDURE: CT head and CT cervical spine without contrast. TECHNIQUE: Multiple contiguous axial images were obtained through the brain and cervical spine without the use of intravenous contrast. Sagittal and coronal reformations through the cervical spine were then performed. Auto Exposure Controls were utilized during the CT exam to meet ALARA standards for radiation dose reduction. INDICATION: Multiple falls. Head and neck pain. Comparison with 02/19/2020. FINDINGS: CT HEAD: There is no evidence of intracranial hemorrhage. Ventricles and cortical gyral pattern are normal. There is no mass effect. No extra-axial fluid collection. Basal cisterns are clear. Pituitary is not enlarged. Mastoid air cells and paranasal sinuses are well-aerated and clear where visualized. No calvarial fractures. IMPRESSION: Negative CT head without contrast. CERVICAL SPINE: Sagittal and coronal reformatted images show kyphotic changes from advanced degenerative disease centered at C5 and C7. The body height is well-maintained. Facets show good alignment. Hypertrophic endplate changes are present anteriorly at C5-C6 and C6-C7. No spinal stenosis. The odontoid is in good alignment. Moderate degenerative changes of the atlantoaxial joint. There are no acute fractures. The prevertebral soft tissues are not widened. IMPRESSION: Diffuse degenerative cervical spondylosis as described with no acute abnormalities. Dictated by: Dictated on workstation # [id number] Dict: 03/05/20 0946 Trans: 03/05/20 1049 [facility] [id number] Interpreted by: ISABELLE EDWARDS MD Electronically signed by: ISABELLE EDWARDS MD 03/05/20 1049 Departure Impression Primary Impression: Fall in bathtub Qualified Codes: W18.2XXA - Fall in (into) shower or empty bathtub, initial encounter Additional Impression: Essential tremor Disposition: 01 HOME, SELF-CARE Condition: Stable Departure-Patient Inst. Decision time for Depature: 10:27 Referrals: AURELIA SPIVEY DO (PCP) Primary Care Physician JOLANTA EATON APRN (Family) Primary Care Physician Patient Instructions: Preventing Falls in the Older Adult, Tremor Add. Discharge Instructions: Walk very cautiously to avoid falls. You may use a walker or cane as an assisted device to help prevent fall. Try the primidone as prescribed for her tremor if you're unable to contact your primary care provider first thing on Friday morning. Follow-up with your doctor as soon as possible to review medications and talk about further treatment. Return to the emergency room if you have worsening symptoms. All discharge instructions reviewed with patient and/or family. Voiced understanding. Scripts Primidone (Mysoline) 50 Mg Tablet 25 MG PO HS, #10 TAB Prov: ZENY MONTEJO MD 03/05/20 Copy Copies To 1: AURELIA SPIVEY JOSHUA T MD Mar 05, 2020 10:30
[2020-03-05 10:41] LABS: BILIRUBIN,URINE NEGATIVE (NEGATIVE); CLARITY,URINE CLEAR; COLOR,URINE YELLOW; GLUCOSE, URINE (UA) NEGATIVE (NEGATIVE); KETONES,URINE NEGATIVE (NEGATIVE); LEUKOCYTE ESTERASE ,URINE NEGATIVE (NEGATIVE); NITRITE,URINE NEGATIVE (NEGATIVE); PROTEIN,URINE NEGATIVE (NEGATIVE)
[2020-03-05 10:49] LABS: AMORPHOUS SEDIMENT,UR FEW AMOR PHOSPHATE /LPF; BACTERIA,URINE FEW /HPF; SQUAMOUS EPITHELIAL CELL,UR RARE /HPF; WBC,URINE 0-2 /HPF
[2020-03-05 11:10] VITALS: BP 135/87
== END 2020-03-05 11:11 | disposition home or self-care (01) ==
LOC: EDUNIT# 09:00 → ER 09:01
DX: M54.2 Cervicalgia (principal); G25.0 Essential tremor; D64.9 Anemia, unspecified; F41.9 Anxiety disorder, unspecified; F32.9 Major depressive disorder, single episode, unspecified; R40.2142 Coma scale, eyes open, spontaneous, at arrival to emergency department; R40.2252 Coma scale, best verbal response, oriented, at arrival to emergency department; R40.2362 Coma scale, best motor response, obeys commands, at arrival to emergency department; Z88.0 Allergy status to penicillin; Z88.8 Allergy status to other drugs, medicaments and biological substances; Z87.891 Personal history of nicotine dependence; Z96.652 Presence of left artificial knee joint; Z82.49 Family history of ischemic heart disease and other diseases of the circulatory system; W18.2XXA Fall in (into) shower or empty bathtub, initial encounter; Y92.009 Unspecified place in unspecified non-institutional (private) residence as the place of occurrence of the external cause
CPT/HCPCS: 36415; 70450; 72125; 80053; 81000; 83735; 85025; 87088; 93005; 93041

== ENCOUNTER → 2020-03-16 | Outpatient (CLI) | payer MEDICARE ==
[~2020-03-16] MED LIST changes: +GADOBUTROL 7.5 MMOL/7.5 ML (GADAVIST) VIAL IV ONE; +PRIM50TA33 PO
--- NOTE | 2020-03-16 11:47 | Diagnostic Imaging Report ---
PROCEDURE: MR imaging of the brain without contrast. TECHNIQUE: Multiplanar, multisequence MR imaging of the brain was performed without contrast. INDICATION: Falls and tremors COMPARISON: There are no prior MRI examinations available for comparison. The CT head exam of 03/05/2020 failed to show any sign of an acute intracranial abnormality. This study is of limited diagnostic value due to motion artifact. On the diffusion series of this exam, there is no abnormal signal arising from the brain to suggest an area of acute ischemia. There is no mass, shift of the midline or hemorrhage. The ventricles are not abnormally dilated and similar in size to the prior CT head exam. There is cortical atrophy present. The degree of atrophy is consistent with the patient's age. The FLAIR series is less than optimal due to motion artifact. There does appear to be increased signal in the basal ganglia bilaterally, particularly on the right. This finding is nonspecific but could be secondary to encephalomalacia from prior infarcts. It would be less likely that this is secondary to a subacute infarct. Even so, clinical follow-up is recommended. The sella is not enlarged and the expected carotid flow voids are evident bilaterally. The orbits are symmetrical and within normal limits. The sinuses are generally clear. The 7th 8th nerve complexes are unremarkable. IMPRESSION: 1. There is no abnormal signal arising from the brain on the diffusion series to indicate an area of acute ischemia. The abnormal signal in the basal ganglia bilaterally, particularly on the right seen on the FLAIR series, is of uncertain etiology. This may be secondary to encephalomalacia from a long-standing infarct.. A late subacute nonhemorrhagic infarct would be a less likely possibility but should still be considered. 2. There is no acute intracranial abnormality noted otherwise. Dictated by: Dictated on workstation # [id number]
== END ==
LOC: RAD 07:39
PROVIDERS: ATTEND Nurse Practitioner Family
DX: R29.6 Repeated falls (principal)
CPT/HCPCS: 70551

== ENCOUNTER 2020-04-22 13:05 | Emergency (ER) | payer MEDICARE ==
[~2020-04-22] VITALS: Ht 162 cm; Wt 47.6 kg
[~2020-04-22 13:05] MED LIST changes: -GADOBUTROL 7.5 MMOL/7.5 ML (GADAVIST) VIAL IV ONE
[2020-04-22 13:32] LABS: BASOPHILS % (AUTO) 0 % (0-10); EOSINOPHILS % (AUTO) 0 % (0-10); HEMATOCRIT 31 % (35-52); HEMOGLOBIN 10.7 G/DL (11.5-16.0); LYMPHOCYTES # (AUTO) 0.5 X 10^3 (1.0-4.0); LYMPHOCYTES % (AUTO) 9 % (12-44); MEAN CORPUSCULAR HEMOGLOBIN 29 PG (25-34); MEAN CORPUSCULAR HGB CONC 34 G/DL (32-36); MEAN CORPUSCULAR VOLUME 83 FL (80-99); MEAN PLATELET VOLUME 8.1 FL (7.4-10.4); MONOCYTES # (AUTO) 0.5 X 10^3 (0.0-1.0); MONOCYTES % (AUTO) 9 % (0-12); NEUTROPHILS # (AUTO) 4.8 X 10^3 (1.8-7.8); NEUTROPHILS % (AUTO) 82 % (42-75); PLATELET COUNT 376 10^3/uL (130-400); RED CELL DISTRIBUTION WIDTH 14.2 % (10.0-14.5); WHITE BLOOD COUNT 5.9 10^3/uL (4.3-11.0)
[2020-04-22 13:34] LABS: CHLORIDE 94 MMOL/L (98-107); POTASSIUM 4.4 MMOL/L (3.6-5.0); SODIUM 127 MMOL/L (135-145)
[2020-04-22 13:35] LABS: CALCIUM 9.4 MG/DL (8.5-10.1)
[2020-04-22 13:36] LABS: GLUCOSE 118 MG/DL (70-105); INR 0.8 (0.8-1.4); PROTHROMBIN TIME PATIENT 11.8 SEC (12.2-14.7)
[2020-04-22 13:37] LABS: TOTAL PROTEIN 7.6 GM/DL (6.4-8.2)
[2020-04-22 13:38] LABS: BILIRUBIN,TOTAL 0.3 MG/DL (0.1-1.0); CARBON DIOXIDE 21 MMOL/L (21-32)
[2020-04-22 13:40] LABS: ALKALINE PHOSPHATASE 57 U/L (40-136); CREATININE SERUM 0.62 MG/DL (0.60-1.30); GFR ESTIMATED > 60
[2020-04-22 13:41] LABS: BUN/CREATININE RATIO 15
[2020-04-22 13:43] LABS: ALANINE AMINOTRANSFERASE < 6 U/L (0-55)
--- NOTE | 2020-04-22 13:53 | ED GI ---
General Chief Complaint: Abdominal/GI Problems Stated Complaint: BLOOD IN STOOL / WEAKNESS Nursing Triage Note: Patient brought to ER by private vehicle by sister. RN and tech assist patient out of vehicle. Per patient, she was having a bowel movement today when she noticed a large amount of bright red blood in her stool. Patient states the BM was normal and not hard. She has not been constipated and has had no diarrhea. She denies any abdominal pain or pain with having a BM. Her abdomen is soft to the touch. No pain with palptation present. Patient states she has processively gotten weaker over the last several months after being diagnosed with parkinson's disease. Sepsis Screen: No Definite Risk Source of Information: Patient Exam Limitations: No Limitations History of Present Illness Date Seen by Provider: Apr 22, 2020 Time Seen by Provider: 13:49 Initial Comments To ER with report of a bloody stool earlier today. She denies any rectal or abdominal pain. Denies any fevers or chills. Denies any constipation or diarrhea. Timing/Duration: 1-2 Days Severity/Quality: Moderate Radiation: No Radiation Activities at Onset: None Associated Symptoms: Denies Symptoms Allergies and Home Medications Allergies Coded Allergies: Penicillins (Verified Allergy, Unknown, 06/02/18) alendronate sodium (Verified Allergy, Unknown, 06/02/18) bacitracin (Verified Allergy, Unknown, 06/02/18) lactose (Verified Allergy, Unknown, 06/02/18) neomycin (Verified Allergy, Unknown, 06/02/18) polymyxin B (Verified Allergy, Unknown, 06/02/18) raloxifene (Verified Allergy, Unknown, leg swelling, 06/02/18) Home Medications Calcium Carbonate 600 Mg Tablet, 600 MG PO BID, (Reported) Cholecalciferol (Vitamin D3) 1,000 Unit Tablet, 1,000 UNIT PO BID, (Reported) Cyanocobalamin (Vitamin B-12) 2,500 Mcg Tablet, 2,500 MCG PO DAILY, (Reported) Docusate Sodium 100 Mg Capsule, 100 MG PO DAILY Prescribed by: HUSEYIN SOLIMAN on 04/22/20 1407 Ferrous Sulfate, Dried 159 Mg Tablet.er, 159 MG PO DAILY, (Reported) Fluoxetine HCl 20 Mg Capsule, 20 MG PO DAILY, (Reported) Lorazepam 0.5 Mg Tablet, 0.5 MG PO HS, (Reported) [place]-3 Fatty Acids 1,000 Mg Capsule, 1,000 MG PO DAILY, (Reported) Polyethylene Glycol 3350 17 Gm Powd.pack, 17 GM PO BID Prescribed by: HUSEYIN SOLIMAN on 04/22/20 1442 Primidone 50 Mg Tablet, 25 MG PO HS Prescribed by: ZENY DUBOSE on 03/05/20 1030 Tramadol HCl 50 Mg Tablet, 50 MG PO PRN, (Reported) Patient Home Medication List Home Medication List Reviewed: Yes Review of Systems Review of Systems Constitutional: see HPI EENTM: No Symptoms Reported Respiratory: No Symptoms Reported Cardiovascular: No Symptoms Reported Gastrointestinal: See HPI Genitourinary: No Symptoms Reported Musculoskeletal: no symptoms reported Skin: no symptoms reported Psychiatric/Neurological: No Symptoms Reported Endocrine: No Symptoms Reported Hematologic/Lymphatic: No Symptoms Reported Past Igjdnxi-Wvlzzj-Uwghwg Hx Patient Social History Alcohol Use: Past History Recreational Drug Use: Yes (ALCOHOLISM) Smoking Status: Former Smoker Type Used: Cigarettes Former Smoker, Quit: Jun 02, 2013 2nd Hand Smoke Exposure: No Contact w/Someone Who Travel: No Recent Infectious Disease Expo: No Recent Hopitalizations: No Physical Abuse: No Sexual Abuse: No Mistreated: No Fear: No Seasonal Allergies Seasonal Allergies: No Past Medical History Surgeries: Yes (jaw resection, Left knee scope, SPINE, L TKR) Respiratory: No Cardiac: No Syncope Neurological: Yes (ESSENTIAL TREMORS) Parkinson's Disease Reproductive Disorders: No Sexually Transmitted Disease: No HIV/AIDS: No Genitourinary: No Gastrointestinal: No Musculoskeletal: Yes Scoliosis, Chronic Back Pain Endocrine: No HEENT: No (dentures) Loss of Vision: Bilateral Hearing Impairment: Denies Cancer: No Psychosocial: Yes Anxiety, Depression Integumentary: No Blood Disorders: Yes (ANEMIA) Adverse Reaction/Blood Tranf: No (N/A) Family Medical History Cardiovascular disease 19 MOTHER Diabetes mellitus 19 MOTHER Hypertension 19 MOTHER Myocardial infarction 19 MOTHER Psychosocial problem 19 FATHER 19 MOTHER G8 SISTER Diabetes, Hypertension Physical Exam Vital Signs Vital Signs - First Documented 04/22/20 13:05 Temp 36.7 Pulse 104 Resp 18 B/P (MAP) 126/83 (97) Pulse Ox 97 O2 Delivery Room Air Capillary Refill : Less Than 3 Seconds Height/Weight/BMI Height: 5'2.00" Weight: 98lbs. 8.0oz. 44.024202kg; 18.00 BMI Method:Estimated General Appearance: WD/WN, no apparent distress HEENT: PERRL/EOMI, normal ENT inspection Respiratory: no respiratory distress, no accessory muscle use Gastrointestinal: normal bowel sounds, non tender, soft Rectal: other (there is a posterior hemorrhoid with scant on this and some dark blood consistent with recent bleeding) Extremities: normal range of motion, non-tender Neurologic/Psychiatric: alert, normal mood/affect, oriented x 3 Skin: normal color, warm/dry Progress/Results/Core Measures Results/Orders Lab Results Laboratory Tests Test 04/22/20 13:10 Range/Units White Blood Count 5.9 4.3-11.0 10^3/uL Red Blood Count 3.74 L 4.35-5.85 10^6/uL Hemoglobin 10.7 L 11.5-16.0 G/DL Hematocrit 31 L 35-52 % Mean Corpuscular Volume 83 80-99 FL Mean Corpuscular Hemoglobin 29 25-34 PG Mean Corpuscular Hemoglobin Concent 34 32-36 G/DL Red Cell Distribution Width 14.2 10.0-14.5 % Platelet Count 376 130-400 10^3/uL Mean Platelet Volume 8.1 7.4-10.4 FL Neutrophils (%) (Auto) 82 H 42-75 % Lymphocytes (%) (Auto) 9 L 12-44 % Monocytes (%) (Auto) 9 0-12 % Eosinophils (%) (Auto) 0 0-10 % Basophils (%) (Auto) 0 0-10 % Neutrophils # (Auto) 4.8 1.8-7.8 X 10^3 Lymphocytes # (Auto) 0.5 L 1.0-4.0 X 10^3 Monocytes # (Auto) 0.5 0.0-1.0 X 10^3 Eosinophils # (Auto) 0.0 0.0-0.3 10^3/uL Basophils # (Auto) 0.0 0.0-0.1 10^3/uL Prothrombin Time 11.8 L 12.2-14.7 SEC INR Comment 0.8 0.8-1.4 Sodium Level 127 L 135-145 MMOL/L Potassium Level 4.4 3.6-5.0 MMOL/L Chloride Level 94 L 98-107 MMOL/L Carbon Dioxide Level 21 21-32 MMOL/L Anion Gap 12 5-14 MMOL/L Blood Urea Nitrogen 9 7-18 MG/DL Creatinine 0.62 0.60-1.30 MG/DL Estimat Glomerular Filtration Rate > 60 BUN/Creatinine Ratio 15 Glucose Level 118 H 70-105 MG/DL Calcium Level 9.4 8.5-10.1 MG/DL Corrected Calcium 9.4 8.5-10.1 MG/DL Total Bilirubin 0.3 0.1-1.0 MG/DL Aspartate Amino Transf (AST/SGOT) 29 5-34 U/L Alanine Aminotransferase (ALT/SGPT) < 6 0-55 U/L Alkaline Phosphatase 57 40-136 U/L Total Protein 7.6 6.4-8.2 GM/DL Albumin 4.0 3.2-4.5 GM/DL My Orders Orders - HUSEYIN SOLIMAN APRN Cbc With Automated Diff (04/22/20 13:23) Comprehensive Metabolic Panel (04/22/20 13:23) Protime With Inr (04/22/20 13:23) Ed Iv/Invasive Line Start (04/22/20 13:23) Ct Abdomen/Pelvis W (04/22/20 13:43) Iohexol Injection (Omnipaque 350 Mg/Ml 1 (04/22/20 14:00) Received Contrast (Hold Metformin- Contr (04/22/20 14:00) Ns (Ivpb) (Sodium Chloride 0.9% Ivpb Bag (04/22/20 14:00) Medications Given in ED Current Medications Medications Dose Ordered Sig/Cristi Route Start Time Stop Time Status Last Admin Dose Admin Iohexol 100 ml ONCE ONCE IV 04/22/20 14:00 04/22/20 14:01 DC 04/22/20 14:08 66 ML Sodium Chloride 100 ml ONCE ONCE IV 04/22/20 14:00 04/22/20 14:01 DC 04/22/20 14:08 80 ML Vital Signs/I&O 04/22/20 13:05 Temp 36.7 Pulse 104 Resp 18 B/P (MAP) 126/83 (97) Pulse Ox 97 O2 Delivery Room Air Blood Pressure Mean: 97 Departure Impression Primary Impression: Hemorrhoid Additional Impression: Constipation Disposition: 01 HOME, SELF-CARE Condition: Stable Departure-Patient Inst. Decision time for Depature: 14:06 Referrals: [facility]/ (PCP) Primary Care Physician JOSE HENDERSON APRN (Family) Primary Care Physician Patient Instructions: Hemorrhoids Add. Discharge Instructions: 1. Take a stool softener as directed, increase water intake 3. Return to ER for any concerns and follow up with her regular doctor next week. All discharge instructions reviewed with patient and/or family. Voiced understanding. Scripts Loan MorrisonB/Sue Morrison (Fleet Enema) 133 Ml Enema 133 ML RC ONCE, #12 EA Prov: HUSEYIN SOLIMAN APRN 04/22/20 Polyethylene Glycol 3350 (Miralax) 17 Gm Powd.pack 17 GM PO BID, #14 EACH Prov: HUSEYIN SOLIMAN APRN 04/22/20 Docusate Sodium (Colace) 100 Mg Capsule 100 MG PO DAILY, #14 CAP Prov: HUSEYIN SOLIMAN APRN 04/22/20 HUSEYIN SOLIMAN APRN Apr 22, 2020 13:52
[2020-04-22] MEDS ORDERED: NS 100 ML (IVPB) BAG IV ONE (14:00)
[2020-04-22] MEDS ORDERED: IOHEXOL 350 MG/ML 100 ML (OMNIPAQUE 350) VIAL IV ONE (14:00)
[2020-04-22] MEDS ORDERED: HOLD METFORMIN - RECEIVED CONTRAST 20 ML VIAL IV SCH (14:00)
[2020-04-22] MEDS ORDERED: DOCU-143 PO (14:07)
[2020-04-22] MEDS ORDERED: POLY17PO6 PO (14:42)
--- NOTE | 2020-04-22 14:53 | Diagnostic Imaging Report ---
EXAMINATION: CT Abdomen and Pelvis with intravenous contrast. TECHNIQUE: Multiple contiguous axial images were obtained through the abdomen and pelvis after the uneventful administration of intravenous contrast. All CT scans use one or more of the following dose optimizing techniques: automated exposure control, MA and/or KvP adjustment based on a patient size and exam type, or iterative reconstruction. HISTORY: Blood in the stool. COMPARISON: None available. FINDINGS: The heart is unremarkable. A small right pleural effusion is seen with right basilar atelectasis. No evidence of bowel obstruction. A large amount of stool is seen throughout the colon. Mild bowel wall thickening is seen in the rectosigmoid colon. No evidence of free fluid or free air. The liver, spleen, pancreas, adrenal glands, and kidneys have a normal appearance. A simple cortical cyst is seen in the left kidney. The gallbladder is decompressed. There is no pathologically enlarged mesenteric or retroperitoneal adenopathy. Extensive posterior fusion changes are seen in the thoracic and lumbar spine extending to the sacrum. No acute fracture or dislocation is seen. Generalized osteopenia is noted. The urinary bladder is decompressed. There is no free air, loculated collection, or adenopathy in the pelvis. IMPRESSION: 1. A large amount of stool throughout the colon, likely representing constipation. There is mild bowel wall thickening in the rectosigmoid colon. Recommend correlation with physical exam to exclude fecal impaction. No bowel obstruction, free fluid, or free air. 2. Small right pleural effusion with right basilar atelectasis. Dictated by: Dictated on workstation # [id number]
[2020-04-22] MEDS ORDERED: NA P133E22 RC (15:00)
[2020-04-22 15:18] VITALS: BP 112/74
== END 2020-04-22 15:18 | disposition home or self-care (01) ==
LOC: EDUNIT# 13:05 → ER 13:06
DX: K64.9 Unspecified hemorrhoids (principal); F41.9 Anxiety disorder, unspecified; F32.9 Major depressive disorder, single episode, unspecified; D50.0 Iron deficiency anemia secondary to blood loss (chronic); Z88.0 Allergy status to penicillin; Z88.8 Allergy status to other drugs, medicaments and biological substances; Z87.891 Personal history of nicotine dependence; Z82.49 Family history of ischemic heart disease and other diseases of the circulatory system; Z96.652 Presence of left artificial knee joint; Z88.1 Allergy status to other antibiotic agents
CPT/HCPCS: 36415; 74177; 80053; 85025; 85610

== ENCOUNTER 2020-04-30 12:03 | Inpatient (IN) | payer MEDICARE ==
[~2020-04-30] VITALS: Ht 162 cm; Wt 45.9 kg
[~2020-04-30 12:03] MED LIST changes: +DOCU-143 PO; +NA P133E22 RC; +POLY17PO6 PO
--- OUTSIDE RECORDS SUMMARY | 2020-04-30 12:10 | XMS REPORT ---
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 [email or web address] [facility] [employer] [facility] [employer] Address [address] [address] Care Team Providers Care Plumbing Mechanic Name Role Phone Piter Dupree V Unavailable ENEIDA BEJARANO Unavailable Unavailable MADL, ESTELLA Unavailable Unavailable AURELIA SPIVEY Unavailable KALYAN WIN Unavailable Unavailable [facility] Unavailable ANGE PARNELL Unavailable MADL, ESTELLA Unavailable MADL, ESTELLA Unavailable MADL, ESTELLA Unavailable MADL, ESTELLA Unavailable KAREN DE LOS SANTOS Unavailable MADL, ESTELLA Unavailable MADL, ESTELLA Unavailable MADL, ESTELLA Unavailable MARLA MITCHELL Unavailable MADL, ESTELLA Unavailable MADL, ESTELLA Unavailable PEPE EATONELE Unavailable EATON, JOLANTA Unavailable PEPE EATONELE Unavailable KAREN DE LOS SANTOS MD Unavailable Unavailable ANGE PARNELL MD Unavailable Unavailable KAREN DE LOS SANTOS MD Unavailable Unavailable ISABELLE ZULUAGA MD Unavailable Unavailable ISABELLE ZULUAGA MD Unavailable Unavailable HUSEYIN SOLIMAN APRN Unavailable Unavailable JOLANTA Hendrix Unavailable MADL, ESTELLA L OPERATIONS ENGINEER Unavailable Unavailable PEPE HendrixELE Unavailable MADL, ESTELLA Unavailable MARTY HENDERSONTA Unavailable Piter Dupree V Unavailable Elie Vidal Unavailable Piter Dupree V PCP Piter Dupree V Attphys Migration, Doctor Unavailable Unavailable Migration, Doctor Unavailable Unavailable KYRA BROUSSARD MD Unavailable Unavailable Migration, Doctor Unavailable Unavailable MADL, ESTELLA Unavailable Piter Dupree Unavailable MADL, ESTELLA Unavailable MADL, ESTELLA Unavailable MADL, ESTELLA Unavailable DIGNA SANCHEZ Unavailable Simeon JOLANTA Unavailable Unavailable MARTY HENDERSONTA D Unavailable Unavailable Piter Vinson Unavailable Unavailable Piter Vinson PCP Piter Vinson Attphys MADL, ESTELLA Unavailable MADL, ESTELLA Unavailable DIGNA SANCHEZ Unavailable Unavailable Unavailable Migration, Doctor Unavailable Unavailable Migration, Doctor Unavailable Unavailable Migration, Doctor Unavailable Unavailable Migration, Doctor Unavailable Unavailable DIGNA SANCHEZ Unavailable Migration, Doctor Unavailable Unavailable Migration, Doctor Unavailable Unavailable MADL, ESTELLA Unavailable MADL, ESTELLA Unavailable MADL, ESTELLA Unavailable MADL, ESTELLA Unavailable ARSALAN BUCK, TWIN Rios Unavailable Unavailable MIKE MICHELLE Unavailable Unavailable NIKIA BUCK, ZENY Hwang Unavailable Unavailable BEATRIZ WINE MANAGER, JOSE D Unavailable Unavailable Migration, Doctor Unavailable Unavailable Migration, Doctor Unavailable Unavailable Migration, Doctor Unavailable Unavailable HUSEYIN SOLIMAN APRN Unavailable Unavailable Unavailable Unavailable Unavailable Unavailable Unavailable Unavailable Unavailable Unavailable Unavailable Unavailable Unavailable Unavailable Unavailable Unavailable Unavailable Unavailable Allergies Normalized Allergy Reported Date of Reaction(s) Care Provider Facility Allergy Type classification allergen Allergy Onset Allergy (5 Unclassified No Known 04-30-2013 - no information no name Not Available sources.) Allergies (34421) Translations: [ NKMA] DA (20 Unclassified No Known Drug 05-16-2012 - no information ANGE Not Available sources.) Allergies MD PARMJIT (85848) DANIEL (20 Unclassified polymyxin B 04-03-2017 - no information no name [facility] Via sources.) [facility] (99861) Medications Current Medications Medication Ingredient Drug Dose Dates Status Sig Sig Care Class(es) (Normalized) (Original) Provid er acetaminoph acetaminoph Opioid Active no Hydrocodone- no en 325 mg / en / Agonist information Acetaminophe name HYDROcodone HYDROcodone n 7.5-325 MG bitartrate Translation Orally every 7.5 mg oral s: [ 6 hrs 1 tablet (1 Hydrocodone tablet as source.) -Acetaminop needed 6h hen 7.5-325 Active MG] aspirin 81 aspirin Nonsteroida Active no Aspirin 81 no mg oral Translation l information 81 MG Orally name strip (2 s: [ Anti-inflam Once a day 1 sources.) Aspirin 81 matory Drug tablet 24h 81 MG] Active azithromyci Azithromyci Macrolide 500 mg 09-07-20 Active take 2 Azithromycin no n 250 mg n Antimicrobi 13 tablets by 250 mg 2 nam e oral tablet Translation al mouth once Tablet by (1 source.) s: [ daily, then Oral route Azithromyci take 1 on day 1 n 250 mg] tablet by then take 1 mouth, then daily for 4 take 1 days Aug, tablet by 2012 Active mouth once daily docusate docusate no 100 mg Active no Colace 100 no sodium 100 Translation information information MG Orally nam e mg oral s: [ Colace Once a day 1 capsule (2 100 MG] capsule as sources.) needed 24h Active 100 mg Active no Colace no name inform 100 MG ation Orally Once a day 1 capsule as needed 24h Active nitrofurant NITROFURANT Nitrofuran 100 mg 10-02-20 Active no Macrobid 100 no oin, OIN, Antibacteri 18 information MG Orally n spencer macrocrysta MACROCRYSTA al every 12 hrs ls 25 mg / LS / 1 capsule nitrofurant Nitrofurant with food oin, oin, 12h 23 Nov, monohydrate Monohydrate 2017 5 days 75 mg oral Translation Active capsule (1 s: [ source.) Macrobid 100 MG] traMADol traMADol Opioid 50 mg 05-14-20 Active no Tramadol HCl no hydrochlori Translation Agonist 18 information 50 mg Oral ly name de 50 mg s: [ every 6 hrs oral tablet Tramadol 1 tablet as (8 HCl 50 MG, needed 6h sources.) Tramadol Active HCl 50 mg] no Vitamin C no 500 mg Active no Vitamin C no information 500 mg information information 500 mg name (3 Translation Orally Once sources.) s: [ a day 1 Vitamin C tablet 24h 500 mg] 90 days Active 500 mg Active no no no name inform informat ation ion no Vitamin D no 1000 10-27-20 Active no Vitamin D no information 1000 UNIT information [IU] 18 information 1000 UNIT name (2 Translation Orally 2 sources.) s: [ times a day Vitamin D 1 tablet 12h 1000 UNIT, Oct, Vitamin D 90 days 1000 UNIT] Active 1000 [IU] Active no Vitamin no name inform D 1000 ation UNIT Orally 2 times a day 1 tablet 12h Active no Vitamin D3 no 2000 05-27-20 Active take 2 Vitamin D 3 no information 1,000 unit information [IU] 14 capsules by 1,00 0 unit 2 name (1 source.) mouth once capsule by daily Oral route 1 time per day May, Active Completed/Discontinued Medications [...] Active no Docosahexae no 11-23-19 no no [place]-3/Dha/ (n o information noate / information 19 informat information Epa/ Fish Oil phone) (10 Eicosapenta ion [Fish Oil sources.) enoate / 1,000 Mg Vitamin E Softgel] 2 EACH PO Daily November 23, 2018 Active 11-23-2018 no no [place]-3/ (no information inform Dha/Epa/ phone) ation Fish Oil 2 EACH PO Daily November 23, 2018 Active 11-23-2018 Active no [place]-3/ no name inform Dha/Epa/ ation Fish Oil Active 2 EACH Oral Daily November [...] take 1 Multivit no name tablet With by Calcium, mouth Iron,Min once Active 1 daily TAB [...] Ea Oral Oral Daily@0700 04/22/17 Discontinued no [place]-3 no 1000 Complete take 1 [place]-3 (no information Fatty Acids information mg d capsule by Fatt y Acids phone) (1 source.) ([place]-3) mouth once ([place]-3) 1,000 Mg daily, then 1,000 Mg Capsule [...] Active Problems Active Problems Problem Normalized Date Last Normalized Normalized Provider Fa cility Classification Problem(s) Recorded Problem Problem Sta tus Duration Acute Acute Episodic Active KAREN DE LOS SANTOS , Not Avail able posthemorrhagi posthemorrhagi (23197) c anemia (7 c anemia sources.) NEGATED Aftercare Chronic Active LEONIDES Not Availabl e no following JAMESON , DO (86238) information joint (18 sources.) replacement surgery Allergic Allergy status 03-28-2020 - Episodic Active ALEXANDRIA RAMOS Via reactions (16 to penicillin OPERATIONS ENGINEER Latoya sources.) Translations: Hospital - [ ALLERGY [facility] STATUS TO OTH (23412) DRUG/MEDS/BIOL SUB] Deficiency and Anemia, 03-28-2020 - Episodic Active ISABELLE JACKSON , Not Available other anemia unspecified (11506) (20 sources.) Translations: [ - Postoperative anemia D64.9, - Postoperative anemia D64.9, - Low hemoglobin D64.9] Other Arthrodesis Episodic Active KAREN DE LOS SANTOS , Not Av ailable connective status (06792) tissue disease Translations: (20 sources.) [ - History of spinal fusion for scoliosis Z98.1, - History of spinal fusion for scoliosis Z98.1] Other Care involving Episodic Active ANGE Not Juliette ilable aftercare (7 other physical MD PARMJIT (31742) sources.) therapy Coma; stupor; Coma scale, 03-28-2020 - Episodic Active ZENY [facility] Via and brain eyes open, Latoya MONTEJO damage (12 spontaneousMD Hospital - sources.) at arrival to [place] emergency (73213) department Translations: [ COMA SCALE, BEST VERBAL RESPONSE, ORIENT, COMA SCALE, BEST MOTOR RESPONSE, OBEYS C] Other Constipation, Episodic Active HUSEYIN SOLIMAN Not Av ailable gastrointestin unspecified (00860) al disorders (7 sources.) Residual Do not Episodic Active ISABELLE ZULUAGA , Not Avail able codes; resuscitate (46125) unclassified (5 sources.) Other Encounter for Episodic Active ISABELLE ZULUAGA , Not Available aftercare (5 orthopedic MD (45682) sources.) aftercare following scoliosis surgery Other Encounter for Episodic Active KAREN DE LOS SANTOS , Not Available aftercare (15 other MD (49413) sources.) orthopedic aftercare Immunizations Encounter for Episodic Active KAREN IPSEN , Not Available and screening screening for MD (93218) for infectious other disease (6 bacterial sources.) diseases Translations: [ ENCOUNTER FOR IMMUNIZATION] External cause Fall in (into) 03-28-2020 - Episodic Active NANY MARLENY [facility] Via codes: Fall (4 shower or Latoya MONTEJO sources.) empty [facility] - initial [place] encounter (38709) Residual Family history 03-28-2020 - Episodic Active ZENY [facility] Via codes; of ischemic Latoya MONTEJO unclassified heart disease Hospital - (4 sources.) and other [facility] diseases of (20682) the circulatory system Other Hypotension, Episodic Active KAREN DE LOS SANTOS , Not A vailable circulatory unspecified (63339) disease (7 sources.) Other Other Episodic Active ISABELLE ZULUAGA , Not Avail able gastrointestin constipation (44014) al disorders (3 sources.) Other acquired Other forms of Chronic Active KAREN IPSEN , Not Available deformities (4 scoliosis, (61854) sources.) thoracolumbar region NEGATED Other Episodic Active no name [facility] Via no hemorrhoids [place] information (2 Hospital - sources.) [facility] (31097) Other Pain in left Episodic Active ESTELLA MADL Not Juliette ilable non-traumatic hip (24660) joint Translations: disorders (20 [ - Pain in sources.) left hip M25.552, - Pain in left hip M25.552] Screening and Personal 03-28-2020 - Episodic Active MIKE KVNG , [facility] Via history of history of [facility] - and substance dependence [place] abuse codes (8 (51880) sources.) Other 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-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 MIKE KVNG , [facility] Via connective left [facility] tissue disease [facility] Hospital - (22 sources.) knee joint [facility] (57605) Spondylosis; Spinal Chronic Active KAREN IPSEN , Not Av ailable intervertebral stenosisMD (49008) disc lumbar region disorders; Translations: other back [ SPONDYLOSIS problems (25 W/O MYELOPATHY sources.) OR RADICULOPA, OTHER INTERVERTEBRAL DISC DEGENERATION, , SPONDYLOSIS W/O MYELOPATHY OR RADICULOPA, SPONDYLOSIS W/O MYELOPATHY OR RADICULOPA, OTHER 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, SPONDYLS W/O MYELOPATHY OR RADICULOPATHY] Syncope (20 Syncope and Episodic Active KAREN IPSEN , Not Available sources.) collapse (71609) Translations: [ - Vasovagal syncope R55, - Vasovagal syncope R55] Other acquired Thoracogenic Chronic Active KAREN IPSEN , Not Available deformities (7 scoliosis, (93715) sources.) thoracic region Other nervous Tremor, Episodic Active ESTELLA MADL Not Juliette ilable system unspecified (29840) disorders (20 Translations: sources.) [ - Tremor of unknown origin R25.1, - Tremor of unknown origin R25.1] External cause Unspecified 03-28-2020 - Episodic Active ZENY [facility] Via codes: Place place in [facility] of occurrence unspecified [facility] - (4 sources.) [facility] ([facility]92) residence as the place of occurrence of the external cause Unclassified no information no information Active AURELIA SPIVEY Via [place] (1 source.) [address] [facility] (58198) Past or Other Problems Problem Normalized Date Last Normalized Normalized Provider Fa cility Classification Problem(s) Recorded Problem Problem Sta tus Duration Abdominal pain Abdominal Episodic Completed Loli HEREDIA t Available (4 sources.) pain, other (91791) specified site External cause Accident no information no information KYRA PEREZ , Not Available codes: caused by (08353) Natural/enviro excessive heat nment (2 due to weather sources.) conditions Other and Benign Episodic Completed no name Not Available unspecified neoplasm, (77965) benign unspecified neoplasm (1 site source.) Other skin Epidermal cyst Episodic Completed no name Not Av ailable disorders (1 (28682) source.) Other injuries Heat Episodic Completed KYRA BROUSSARD , Not Available and conditions exhaustion, (82628) due to unspecified external causes (2 sources.) External cause Home accidents no information no information Eri BROUSSARD Not Available codes: Place (36922) of occurrence (2 sources.) Unclassified Other cervical no information no information KAREN DE LOS SANTOS , Not Available (1 source.) disc (94727) degeneration at C5-C6 level External cause Other external no information no information Eri TERRANCE AARTI , Not Available codes: cause status (29297) Unspecified (2 sources.) Other skin Other Episodic Completed no name Not Availabl e disorders (1 seborrheic (91436) source.) keratosis Other Pain in right Episodic Completed no name Not Avai lable connective hand (65664) tissue disease (1 source.) Disorders of Pure no information no [facility] metabolism (3 olemia, of [facility] sources.) unspecified [place] (04985) Translations: [ - Hypercholester emia E78.00] Procedures Procedure Normalized Procedure Procedure Result Performer Facility Date 06-09-2018 Administration of no information ISABELLE OLSEN Via [facility] anesthesia [place] (88704) 07-01-2013 Basic metabolic panel no information no name [facility] calcium total [facility] (80541) 05-27-2014 Blood count complete no information no name [facility] auto&auto difrntl wbc [facility] (51249) 02-03-2018 Collection venous no information no name [facility] blood venipuncture [facility] (98534) 05-27-2014 Collection venous no information no name [facility] blood venipuncture [facility] (05059) 07-01-2013 Collection venous no information no name [facility] blood venipuncture [facility] (62687) 05-27-2014 Comprehensive no information no name [facility] metabolic panel [facility] (91345) 05-05-2018 Ecg routine ecg no information no name [facility] w/least [facility] w/o i&r [place] (36874) 05-05-2018 EKG, TRACING no information no name [facility] (IN-HOUSE) [facility] (90806) 10-15-2018 [facility] visit, estab pt no information no name [facility] (57634) 10-02-2018 [facility] visit, estab pt no information no name [facility] (97154) 08-03-2018 [facility] visit, estab pt no information no name [facility] (40868) 05-05-2018 [facility] visit, estab pt no information no name [facility] (55698) 02-03-2018 [facility] visit, estab pt no information no name [facility] (66395) 12-12-2017 [facility]HC visit, estab pt no information no name [facility] (35440) FUSION 2-4 L JT W no information no name Not Availabl e (65450) AUTOL SUB, POST APPR P FUSION 2-7 T JT W no information no name Not Availabl e (05480) AUTOL SUB, POST APPR P FUSION LUM JT W INTBD no information no name Not Avai lable (97969) FUS DEV, ANT APPR FUSION LUMSAC JT W no information no name Not Availab le (22482) AUTOL SUB, POST APPR FUSION LUMSAC JT W no information no name Not Availab le (28886) INTBD FUS DEV, ANT AP FUSION OF no information no name Not Available ( 40397) SACROCOCCYGEAL JOINT WITH AUTO FUSION T-LUM JT W no information no name Not Availabl e (03812) AUTOL SUB, POST APPR P 12-12-2017 Influenza assay no information no name [facility] w/[facility] (83544) 10-02-2018 LAB NOT BILLED BY no information no name [facility] (76495) 05-05-2018 LAB NOT BILLED BY no information no name [facility] (51772) 02-03-2018 LAB NOT BILLED BY no information no name [facility] (60756) Periodic comprehensive no information no name Not Juliette ilable (36652) preventive medicine reevaluation and management of an individual including an age and gender appropriate history, examination, counseling/anticipator y guidance/risk factor reduc 12-16-2019 Screening mammography no information no name [facility] (74545) (Work Phone: ) 12-01-2018 Screening mammography no information no name [facility] (80283) ( ) 10-02-2018 Urnls dip stick/tablet no information no name [facility] rgnt auto w/o [facility] (46804) 11-23-2018 no information no information Elie Vidal [facility] (01246) ( ) Immunizations Normalized Immunization Date Notes Care Provider Facili ty Immunization influenza, 08-31-2019 no information no name [facility] (17943) quadrivalent, preservative free influenza, 08-06-2018 no information no name [facility] (34167) quadrivalent, preservative free tetanus and 08-18-2001 no information no name [facility] diphtheria toxoids[facility] (27497) adsorbed, preservative free, for adult use (5 Lf of tetanus toxoid and 2 Lf of diphtheria toxoid) tetanus toxoid, 02-19-2020 no information no name [facility] toxoid, and (53212) acellular pertussis vaccine, adsorbed tetanus toxoid, 09-28-2019 no information no name [facility] reduced diphtheria [facility] (61632) toxoid, and acellular pertussis vaccine, adsorbed Results Test Name Value Interpretation Reference Range Date Time Fa cility (Normalized) (Normalized) (Medline Reference) ua long dip (in house) on null Glucose Test Negative (no code) [facility] strip mass conc [facility] (U) [facility] (81669) Protein mass Negative (no code) 0 - 20 mg/dL [facility] (U) [facility] (95714) UA LONG DIP (IN 2019-06-09 (no code) [facility]) [facility] (65468) UA LONG DIP (IN cloudy (no code) [facility]) [facility] (97003) UA LONG DIP (IN yellow (no code) [facility]) [facility] (01323) UA LONG DIP (IN none (no code) [facility] (00387) UA LONG DIP (IN 690102 (no code) [facility] (99083) UA LONG DIP (IN 1+ (no code) [facility] (49430) UA LONG DIP (IN 7.0 (no code) [facility] (07103) UA LONG DIP (IN 1.010 (no code) [facility] (88651) UA LONG DIP (IN 0.2 (no code) [facility] (44177) UA LONG DIP (IN Positive (no code) [facility] (61162) UA LONG DIP (IN 99754H (no code) [facility] (34632) UA LONG DIP (IN Oct 2018 (no code) [facility] (13660) other on null no information no information (no code) Via [facility] (42259) not yet categorized on null Sex Assigned at (ADM.CQPHI) Does (no code) [facility] Patient Have [facility] (21098) Restrictions?: N~(ADM.FORMS1) Admission Consent Signed?: Y~(ADM.FORMS2) Authorization and Agreements Signed?: Y~(ADM.FORMS3) Who Signed A & A?: pt~(ADM.FORMS5) Can someone from the [facility] follow up with you regarding PP?: SIG~(ADM.FORMS6) Was pt offered Portal and external access instructions?: Y~(ADM.GENDER) Gender ID: F~(ADM.GENIDV) Gender ID Verified: [id number]~(ADM.GR ADD1) 2G Address:: same~(ADM.GRNAME ) 2G Name: Daniel Vale~(ADM.GRSS) 2G Soc Sec Num: [id number]~(ADM .HIPAA6) If Yes, Date Signed:: [id number]~(ADM.HI PAA8) Was new HIPAA NPP signed before this visit?: Y~(ADM.PTRGT4) Was Patient Rights Document Given?: DEC~(ADM.PTRGT5) Was Visitation Rights Document Given at Reg?: OCT~(ADM.SEX) Sex Assigned at : F laboratory on null Microscopic Negative (no code) [facility] stain.thin prep [facility] Nom (Cvx) (21755) influenza a & b (in house) on null INFLUENZA A & B Negative (no code) [facility] (IN HOUSE) [facility] (98744) INFLUENZA A & B + (no code) [facility] (IN HOUSE) [facility] (90786) INFLUENZA A & B [id number] (no code) [facility] (IN HOUSE) [facility] (73591) INFLUENZA A & B 2020-03-23 (no code) [facility] (IN HOUSE) [facility] (42171) laboratory on 2020-04-22 Albumin 4.0 g/dL (NEG) 3.4 - 5.4 g/dL 04-22-2020 PENDING LOCATION [Mass/Vol] 09: [facility] (49344) ALP [Catalytic 57 U/L (NEG) 44 - 147 U/L 04-22-2020 PEND ING LOCATION activity/Vol] 09: [facility] (44284) ALT [Catalytic U/L (NEG) 4 - 40 U/L 04-22-2020 PENDIN G LOCATION activity/Vol] 09:-0 [facility] (34028) Anion gap 12 mmol/L (NEG) 3 - 11 mmol/L 04-22-2020 PENDING LOCATION [Moles/Vol] 09: [facility] (06798) AST [Catalytic 29 U/L (NEG) 10 - 34 U/L 04-22-2020 PENDI NG LOCATION activity/Vol] 09:0 [facility] (10751) Basophils (Bld) 0.0 10*3/uL (NEG) 0 - 0.3 10*3/uL 04-22-2020 PENDING LOCATION [#/Vol] 09:0 [facility] (61997) Basophils/100 0 % (NEG) 0.5 - 1 % 04-22-2020 PENDING LOCATION WBC (Bld) 09: [facility] (29470) Bilirubin 0.3 mg/dL (NEG) 0.1 - 1.2 mg/dL 04-22-2020 [facility] LOCATION [Mass/Vol] 09:10-0400 [facility] (68670) Calcium 9.4 mg/dL (NEG) 8.5 - 10.2 mg/dL [facility] [Mass/Vol] 09:10-0400 [facility] (26630) Chloride 94 mmol/L (L) 95 - 106 mmol/L 04-22-2020 [facility] LOCATION [Moles/Vol] 09:10-0400 [facility] (11172) CO2 [Moles/Vol] 21 mmol/L (NEG) 23 - 29 mmol/L 04-22-2020 P ENDING LOCATION 09:10-0400 [facility] (40892) Creatinine 0.62 mg/dL (NEG) 04-22-2020 PENDING LOCATI ON [Mass/Vol] 09:10-0400 [facility] (01961) Creatinine and > (no code) 04-22-2020 PENDING LOC ATION Glomerular 09:0400 [facility] (86773) filtration rate.predicted panel - Serum, Plasma or Blood Eosinophils 0.0 10*3/uL (NEG) 0.05 - 0.5 04-22-2020 PENDING LOCATION (Bld) [#/Vol] 10*3/uL 09:10-0400 [facility] (74116) Eosinophils/100 0 % (NEG) 1 - 4 % 04-22-2020 [facility] LOCATION WBC (Bld) 09:10-0400 [facility] (45894) Erythrocyte 14.2 % (NEG) 11.6 - 14.6 % 04-22-2020 [facility] LOCATION distribution 09:100400 [facility] (12381) width (RBC) [Ratio] Glucose 118 mg/dL (H) 60 - 125 mg/dL 04-22-2020 PENDING LOCATION [Mass/Vol] 09:10-0400 [facility] (85294) Hematocrit (Bld) 31 % (L) 36.1 - 50.3 % 04-22-2020 P ENDING LOCATION [Volume 09:100400 [facility] (61965) fraction] Hemoglobin (Bld) 10.7 g/dL (L) 12.1 - 17.2 g/dL 04-22-2020 PENDING LOCATION [Mass/Vol] 09:10-0400 [facility] (08313) INR Coag 0.8 (NEG) 04-22-2020 PENDING LOCATI ON (Platelet poor 09:10-0400 [facility] (01387) plasma or blood) [Relative time] Lymphocytes 0.5 10*3/uL (L) 0.9 - 2.9 04-22-2020 PENDING LOCATION (Bld) [#/Vol] 10*3/uL 09:10-0400 [facility] (37012) Lymphocytes/100 9 % (L) 20 - 40 % 04-22-2020 PENDIN G LOCATION WBC (Bld) 09:10-0400 [facility] (38280) MCH (RBC) 29 pg (NEG) 27 - 31 pg 04-22-2020 PENDING LOC ATION [Entitic mass] 09:10-0400 [facility] (01954) MCHC (RBC) 34 g/dL (NEG) 32 - 36 g/dL 04-22-2020 PENDING LOCATION [Mass/Vol] 09:10-0400 [facility] (79844) MCV (RBC) 83 (NEG) 04-22-2020 PENDING LOCATI ON [Entitic vol] 09:10-0400 [facility] (27695) Monocytes (Bld) 0.5 10*3/uL (NEG) 0.3 - 0.9 04-22-2020 PEND ING LOCATION [#/Vol] 10*3/uL 09:10-0400 [facility] (23812) Monocytes/100 9 % (NEG) 2 - 8 % 04-22-2020 PENDING LOCATION WBC (Bld) 09:10-0400 [facility] (71415) Neutrophils 4.8 10*3/uL (NEG) 1.7 - 7 10*3/uL 04-22-2020 PE NDING LOCATION (Bld) [#/Vol] 09:10-0400 [facility] (09067) Neutrophils/100 82 % (H) 40 - 60 % 04-22-2020 PENDIN G LOCATION WBC (Bld) 09:10-0400 [facility] (40640) Platelet mean 8.1 (NEG) 04-22-2020 PENDING LOCA TION volume (Bld) 09:10-0400 [facility] (40417) [Entitic vol] Platelets (Bld) 376 10*3/uL (NEG) 150 - 450 04-22-2020 PEND ING LOCATION [#/Vol] 10*3/uL 09:0 [facility] (41134) Potassium 4.4 mmol/L (NEG) 3.7 - 5.2 mmol/L 04-22-2020 PEND ING LOCATION [Moles/Vol] 09:-0 [facility] (54737) Protein 7.6 g/dL (NEG) 6.4 - 8.3 g/dL 04-22-2020 PENDING LOCATION [Mass/Vol] 09:0 [facility] (92600) PT Coag (PPP) 11.8 s (L) 9.4 - 12.5 s 04-22-2020 PENDI LOCATION [Time] 09: [facility] (91751) RBC (Bld) 3.74 10*6/uL (L) 4.2 - 6.1 04-22-2020 PENDING L OCATION [#/Vol] 10*6/uL 09:0 [facility] (04841) Sodium 127 mmol/L (L) 135 - 145 mmol/L 04-22-2020 PEND ING LOCATION [Moles/Vol] 09:0 [facility] (94106) Urea nitrogen 9 mg/dL (NEG) 7 - 20 mg/dL [facility]: [facility] (64708) Urea 15 mg/mg (no code) 6 - 22 mg/mg 04-22-2020 PENDING L OCATION nitrogen/Creatin 09:0 [facility] (19927) ine [Mass ratio] WBC (Bld) 5.9 10*3/uL (NEG) 3.5 - 10.5 04-22-2020 PENDING L OCATION [#/Vol] 10*3/uL 09:0 [facility] (35999) laboratory on 2020-04-04 Albumin 3.6 g/dL (N) 3.4 - 5.4 g/dL [facility] [Mass/Vol] [facility] (56840) Albumin/Globulin 1.1 {ratio} (N) 1 - 2.5 {ratio} [facility] [Mass ratio] [facility] (09881) ALP [Catalytic 67 U/L (N) 44 - 147 U/L [facility] activity/Vol] [facility] (17503) ALT [Catalytic 9 U/L (N) 4 - 40 U/L [facility] activity/Vol] [facility] (67814) AST [Catalytic 26 U/L (N) 10 - 34 U/L [facility] activity/Vol] [facility] (48304) Basophils (Bld) 0.039 10*3/uL (N) 0 - 0.3 10*3/uL [facility] [#/Vol] [facility] (93917) Basophils/100 0.9 % (N) 0.5 - 1 % [facility] WBC (Bld) [facility] (54825) Bilirubin 0.4 mg/dL (N) 0.1 - 1.2 mg/dL [facility] [Mass/Vol] [facility] (26425) Calcium 9.1 mg/dL (N) 8.5 - 10.2 mg/dL [facility] [Mass/Vol] [facility] (69876) Chloride 97 mmol/L (L) 95 - 106 mmol/L [facility] [Moles/Vol] [facility] (30003) CO2 [Moles/Vol] 23 mmol/L (N) 23 - 29 mmol/L [facility] (65931[facility] Creatinine 0.55 mg/dL (N) [facility] [Mass/Vol] [facility] (49370) Eosinophils 0.163 10*3/uL (N) 0.05 - 0.5 [facility] (Bld) [#/Vol] 10*3/uL [facility] (24719) Eosinophils/100 3.8 % (N) 1 - 4 % [facility] WBC (Bld) [facility] (60012) Erythrocyte 13.4 % (N) 11.6 - 14.6 % [facility] distribution [facility] (RBC) [facility] [Ratio] (85325) GFR/1.73 sq M 116 (N) 90 - 120 [facility] predicted among mL/min/{1.73_m2} mL/min/{1.73_m2} [facility] MDRD [facility] (S/P/Bld) [Vol (80222) rate/Area] GFR/1.73 sq 100 (N) 90 - 120 Community [facility] th M.predicted MDRD mL/min/{1.73_m2} mL/min/{1.73_m2} [facility] (S/P/Bld) [Vol [facility] rate/Area] (92891) Globulin (S) 3.3 g/dL (N) 2 - 3.5 g/dL [facility] [Mass/Vol] [facility] (30703) Glucose 105 mg/dL (H) 60 - 125 mg/dL [facility] [Mass/Vol] [facility] (19311) Hematocrit (Bld) 32.4 % (L) 36.1 - 50.3 % [facility] [Volume [facility] (13747) Hemoglobin (Bld) 10.7 g/dL (L) 12.1 - 17.2 g/dL [facility] [Mass/Vol] [facility] (37402) Lymphocytes 1.135 10*3/uL (N) 0.9 - 2.9 [facility] (Bld) [#/Vol] 10*3/uL [facility] (75297) Lymphocytes/100 26.4 % (N) 20 - 40 % [facility] WBC (Bld) [facility] (31785) MCH (RBC) 28.0 pg (N) 27 - 31 pg [facility] [Entitic mass] [facility] (09634) MCHC (RBC) 33.0 g/dL (N) 32 - 36 g/dL [facility] [Mass/Vol] [facility] (98549) MCV (RBC) 84.8 fL (N) 80 - 100 fL [facility] [Entitic vol] [facility] (59588) Monocytes (Bld) 0.507 10*3/uL (N) 0.3 - 0.9 [facility] [#/Vol] 10*3/uL [facility] (99877) Monocytes/100 11.8 % (N) 2 - 8 % [facility] WBC (Bld) [facility] (07424) Neutrophils 2.455 10*3/uL (N) 1.7 - 7 10*3/uL [facility] (Bld) [#/Vol] [facility] (95762) Neutrophils/100 57.1 % (N) 40 - 60 % [facility] WBC (Bld) [facility] (81526) Platelet mean 8.8 fL (N) 7.2 - 11.7 fL [facility] volume (Bld) [facility] [Entitic vol] [facility] (11999) Platelets (Bld) 485 10*3/uL (H) 150 - 450 [facility] [#/Vol] 10*3/uL [facility] (61863) Potassium 4.2 mmol/L (N) 3.7 - 5.2 mmol/L [facility] [Moles/Vol] [facility] (82420) Protein 6.9 g/dL (N) 6.4 - 8.3 g/dL [facility] [Mass/Vol] [facility] (83897) RBC (Bld) 3.82 10*6/uL (N) 4.2 - 6.1 [facility] [#/Vol] 10*6/uL [facility] (03286) Sodium 129 mmol/L (L) 135 - 145 mmol/L [facility] [Moles/Vol] [facility] (53502) Urea nitrogen 15 mg/dL (N) 7 - 20 mg/dL [facility] [Mass/Vol] [facility] (70107) Urea NOT APPLICABLE (no code) [facility] nitrogen/Creatin [facility] [Mass ratio] [facility] (35372) WBC (Bld) 4.3 10*3/uL (N) 3.5 - 10.5 [facility] [#/Vol] 10*3/uL [facility] (94394) not yet categorized on 2020-03-13 Exp Date Negative (no code) [facility] (11980) laboratory on 2020-03-13 Albumin 4.1 g/dL (N) 3.4 - 5.4 g/dL [facility] [Mass/Vol] [facility] () Albumin/Globulin 1.1 {ratio} (N) 1 - 2.5 {ratio} Comm [facility] [Mass ratio] [facility] () ALP [Catalytic 71 U/L (N) 44 - 147 U/L [facility] activity/Vol] [facility] () ALT [Catalytic 12 U/L (N) 4 - 40 U/L [facility] activity/Vol] [facility] () AST [Catalytic 32 U/L (N) 10 - 34 U/L [facility] activity/Vol] [facility] () Basophils (Bld) 0.03 10*3/uL (N) 0 - 0.3 10*3/uL [facility] [#/Vol] [facility] () Basophils/100 0.4 % (N) 0.5 - 1 % [facility] WBC (Bld) [facility] () Bilirubin 0.3 mg/dL (N) 0.1 - 1.2 mg/dL [facility] [Mass/Vol] [facility] () Calcium 9.5 mg/dL (N) 8.5 - 10.2 mg/dL [facility] [Mass/Vol] [facility] () Chloride 95 mmol/L (L) 95 - 106 mmol/L [facility] [Moles/Vol] [facility] () CO2 [Moles/Vol] 22 mmol/L (N) 23 - 29 mmol/L [facility] (78319) Creatinine 0.68 mg/dL (N) [facility] [Mass/Vol] [facility] () Eosinophils 0.152 10*3/uL (N) 0.05 - 0.5 [facility] (Bld) [#/Vol] 10*3/uL [facility] () Eosinophils/100 2.0 % (N) 1 - 4 % [facility] WBC (Bld) [facility] (65373) Erythrocyte 12.5 % (N) 11.6 - 14.6 % [facility] width (RBC) [facility] [Ratio] (80102) Ferritin 1064 ng/mL (H) [facility] [Mass/Vol] [facility] (46422) GFR/1.73 sq M 108 (N) 90 - 120 [facility] predicted among mL/min/{1.73_m2} mL/min/{1.73_m2} [facility] blacks MDRD [facility] (S/P/Bld) [Vol (34680) rate/Area] GFR/1.73 sq 93 (N) 90 - 120 [facility] th M.predicted MDRD mL/min/{1.73_m2} mL/min/{1.73_m2} [facility] (S/P/Bld) [Vol [facility] rate/Area] (11138) Globulin (S) 3.6 g/dL (N) 2 - 3.5 g/dL [facility] [Mass/Vol] [facility] (46957) Glucose 88 mg/dL (N) 60 - 125 mg/dL [facility] [Mass/Vol] [facility] (62942) Hematocrit (Bld) 34.5 % (L) 36.1 - 50.3 % [facility] [[facility]] [facility] (64360) Hemoglobin (Bld) 11.6 g/dL (L) 12.1 - 17.2 g/dL [facility] [Mass/Vol] [facility] (81034) Iron [Mass/Vol] 26 ug/dL (L) 60 - 170 ug/dL [facility] (23754) Iron binding 273 (N) [facility] [Mass/Vol] [facility] (47703) Iron saturation 10 (L) [facility] [Mass fraction] [facility] (68475) Lymphocytes 1.193 10*3/uL (N) 0.9 - 2.9 [facility] alth (Bld) [#/Vol] 10*3/uL [facility] (77453) Lymphocytes/100 15.7 % (N) 20 - 40 % [facility] WBC (Bld) [facility] (34895) MCH (RBC) 28.9 pg (N) 27 - 31 pg [facility] [Entitic mass] [facility] (34958) MCHC (RBC) 33.6 g/dL (N) 32 - 36 g/dL [facility] [Mass/Vol] [facility] (02053) MCV (RBC) 85.8 fL (N) 80 - 100 fL [facility] [Entitic vol] [facility] (89942) Monocytes (Bld) 0.524 10*3/uL (N) 0.3 - 0.9 [facility] [#/Vol] 10*3/uL [facility] (87554) Monocytes/100 6.9 % (N) 2 - 8 % [facility] alth WBC (Bld) [facility] (85086) Neutrophils 5.7 10*3/uL (N) 1.7 - 7 10*3/uL [facility] (Bld) [#/Vol] [facility] (54626) Neutrophils/100 75 % (N) 40 - 60 % [facility] WBC (Bld) [facility] (14366) Platelet mean 9.4 fL (N) 7.2 - 11.7 fL [facility] volume (Bld) [facility] [Entitic vol] [facility] (13636) Platelets (Bld) 381 10*3/uL (N) 150 - 450 [facility] [#/Vol] 10*3/uL [facility] (99224) Potassium 4.1 mmol/L (N) 3.7 - 5.2 mmol/L [facility] [Moles/Vol] [facility] (40822) Protein 7.7 g/dL (N) 6.4 - 8.3 g/dL [facility] [Mass/Vol] [facility] (57503) RBC (Bld) 4.02 10*6/uL (N) 4.2 - 6.1 [facility] [#/Vol] 10*6/uL [facility] (87664) Sodium 130 mmol/L (L) 135 - 145 mmol/L [facility] [Moles/Vol] [facility] (78521) Urea nitrogen 12 mg/dL (N) 7 - 20 mg/dL [facility] [Mass/Vol] [facility] (98945) Urea NOT APPLICABLE (no code) [facility]/Creat[facility] [Mass ratio] [facility] (15031) WBC (Bld) 7.6 10*3/uL (N) 3.5 - 10.5 [facility] [#/Vol] 10*3/uL [facility] (37578) not yet categorized on 2020-03-12 Exp date Negative (no code) [facility] (59231) laboratory on 2020-03-05 Albumin 4.0 g/dL (NEG) 3.4 - 5.4 g/dL 03-05-2020 PENDING LOCATION [Mass/Vol] 05:25-0400 [facility] (32246) ALP [Catalytic 60 U/L (NEG) 44 - 147 U/L 03-05-2020 PEND ING LOCATION activity/Vol] 05:25-0400 [facility] (71399) ALT [Catalytic 11 U/L (NEG) 4 - 40 U/L 03-05-2020 PENDIN G LOCATION activity/Vol] 05:25-0400 [facility] (55055) Amorphous FEW JEANCARLOS (A) 03-05-2020 PENDING LOCATI ON sediment LM Ql PHOSPHATE 06:30-0400 [facility] (53301) (Urine sed) Anion gap 11 mmol/L (NEG) 3 - 11 mmol/L 03-05-2020 PENDING LOCATION [Moles/Vol] 05:25-0400 [facility] (83299) AST [Catalytic 31 U/L (NEG) 10 - 34 U/L 03-05-2020 PENDI NG LOCATION activity/Vol] 05:25-0400 [facility] (84135) Bacteria NG (no code) 03-05-2020 PENDING LOCATI ON identified Cx 06:30-0400 [facility] (32159) Nom (U) Bacteria LM Ql FEW (A) 03-05-2020 PENDING LOC ATION (Urine sed) 06:30-0400 [facility] (28936) Basophils (Bld) 0.0 10*3/uL (NEG) 0 - 0.3 10*3/uL 03-05-2020 PENDING LOCATION [#/Vol] 05:25-0400 [facility] (91962) Basophils/100 1 % (NEG) 0.5 - 1 % 03-05-2020 PENDING LOCATION WBC (Bld) 05:25-0400 [facility] (03623) Bilirubin 0.3 mg/dL (NEG) 0.1 - 1.2 mg/dL 03-05-2020 PENDIN G LOCATION [Mass/Vol] 05:25-0400 [facility] (60176) Bilirubin Ql (U) Negative (no code) 03-05-2020 PENDING L OCATION 06:30-0400 [facility] (18903) Calcium 9.8 mg/dL (NEG) 8.5 - 10.2 mg/dL 03-05-2020 PENDI NG LOCATION [Mass/Vol] 05:25-0400 [facility] (80132) Casts LM Ql NONE (no code) 03-05-2020 PENDING LOCATI ON (Urine sed) 06:30-0400 [facility] (42356) Chloride 99 mmol/L (NEG) 95 - 106 mmol/L 03-05-2020 PENDIN G LOCATION [Moles/Vol] 05:25-0400 [facility] (68075) Clarity (U) CLEAR (no code) 03-05-2020 PENDING LOCATI ON 06:30-0400 [facility] (82049) CO2 [Moles/Vol] 24 mmol/L (NEG) 23 - 29 mmol/L 03-05-2020 P ENDING LOCATION 05:25-0400 [facility] (73598) Color (U) YELLOW (no code) 03-05-2020 PENDING LOCATI ON 06:30-0400 [facility] (39257) Creatinine 0.73 mg/dL (NEG) 03-05-2020 PENDING LOCATI ON [Mass/Vol] 05:25-0400 [facility] (06532) Creatinine and > (no code) 03-05-2020 PENDING LOC ATION Glomerular 05:25-0400 [facility] (64025) filtration rate.predicted panel - Serum, Plasma or Blood Crystals LM Ql NONE (no code) 03-05-2020 PENDING LOC ATION (Urine sed) 06:30-0400 [facility] (94300) Eosinophils 0.1 10*3/uL (NEG) 0.05 - 0.5 03-05-2020 PENDING LOCATION (Bld) [#/Vol] 10*3/uL 05:25-0400 [facility] (25885) Eosinophils/100 3 % (NEG) 1 - 4 % 03-05-2020 [facility] LOCATION WBC (Bld) 05:-0400 [facility] (67911) Epithelial RARE (no code) 03-05-2020 PENDING LOCATI ON cells.squamous 06:30-0400 [facility] (48487) LM Ql (Urine sed) Erythrocyte 12.6 % (NEG) 11.6 - 14.6 % 03-05-2020 [facility] LOCATION distribution 05:-0400 [facility] (42258) width (RBC) [Ratio] Glucose 91 mg/dL (NEG) 60 - 125 mg/dL 03-05-2020 PENDING LOCATION [Mass/Vol] 05:-0400 [facility] (86951) Glucose Auto Negative (no code) 03-05-2020 PENDING LOCAT ION test strip Ql 06:30-0400 [facility] (53355) (U) Hematocrit (Bld) 33 % (L) 36.1 - 50.3 % 03-05-2020 P ENDING LOCATION [Volume 05:-040 [facility] (52316) fraction] Hemoglobin (Bld) 10.9 g/dL (L) 12.1 - 17.2 g/dL 03-05-2020 PENDING LOCATION [Mass/Vol] 05:25-0400 [facility] (43883) Ketones Auto Negative (no code) 03-05-2020 PENDING LOCAT ION test strip Ql 06:30-0400 [facility] (46268) (U) Leukocyte Negative (no code) 03-05-2020 PENDING LOCATI ON esterase Test 06:30-0400 [facility] (85932) strip Ql (U) Lymphocytes 0.8 10*3/uL (L) 0.9 - 2.9 03-05-2020 PENDING LOCATION (Bld) [#/Vol] 10*3/uL 05:25-0400 [facility] (12881) Lymphocytes/100 20 % (NEG) 20 - 40 % 03-05-2020 [facility] LOCATION WBC (Bld) 05:25-0400 [facility] (96674) Magnesium 2.1 mg/dL (NEG) 1.7 - 2.2 mg/dL 03-05-2020 PENDIN G LOCATION [Mass/Vol] 05:25-0400 [facility] (57436) MCH (RBC) 28 pg (NEG) 27 - 31 pg 03-05-2020 PENDING LOC ATION [Entitic mass] 05:25-0400 [facility] (24523) MCHC (RBC) 33 g/dL (NEG) 32 - 36 g/dL 03-05-2020 PENDING LOCATION [Mass/Vol] 05:25-0400 [facility] (79178) MCV (RBC) 85 (NEG) 03-05-2020 PENDING LOCATI ON [Entitic vol] 05:25-0400 [facility] (03904) Monocytes (Bld) 0.3 10*3/uL (NEG) 0.3 - 0.9 03-05-2020 PEND ING LOCATION [#/Vol] 10*3/uL 05:25-0400 [facility] (68752) Monocytes/100 7 % (NEG) 2 - 8 % 03-05-2020 PENDING LOCATION WBC (Bld) 05:25-0400 [facility] (41296) Mucus Ql (Urine Negative (no code) 03-05-2020 PENDING LO CATION sed) 06:30-0400 [facility] (02011) Neutrophils 2.8 10*3/uL (NEG) 1.7 - 7 10*3/uL 03-05-2020 PE NDING LOCATION (Bld) [#/Vol] 05:25-0400 [facility] (92860) Neutrophils/100 70 % (NEG) 40 - 60 % 03-05-2020 PENDIN G LOCATION WBC (Bld) 05:25-0400 [facility] (45899) Nitrite Ql (U) Negative (no code) 03-05-2020 PENDING LOC ATION 06:30-0400 [facility] (39134) pH (U) 8.0 [pH] (no code) 4.6 - 8 [pH] 03-05-2020 PENDING L OCATION 06:30-0400 [facility] (79911) Platelet mean 8.4 (NEG) 03-05-2020 PENDING LOCA TION volume (Bld) 05:25-0400 [facility] (42495) [Entitic vol] Platelets (Bld) 398 10*3/uL (NEG) 150 - 450 03-05-2020 PEND ING LOCATION [#/Vol] 10*3/uL 05:25-0400 [facility] (58565) Potassium 3.8 mmol/L (NEG) 3.7 - 5.2 mmol/L 03-05-2020 PEND ING LOCATION [Moles/Vol] 05:25-0400 [facility] (50786) Protein 7.9 g/dL (NEG) 6.4 - 8.3 g/dL 03-05-2020 PENDING LOCATION [Mass/Vol] 05:25-0400 [facility] (73953) Protein Ql (U) Negative (no code) 03-05-2020 PENDING LOC ATION 06:30-0400 [facility] (85373) RBC (Bld) 3.85 10*6/uL (L) 4.2 - 6.1 03-05-2020 PENDING L OCATION [#/Vol] 10*6/uL 05:25-0400 [facility] (17449) RBC LM.HPF NONE (no code) 03-05-2020 PENDING LOCATI ON (Urine sed) 06:30-0400 [facility] (94045) [#/Area] RBC Ql (U) Negative (no code) 03-05-2020 PENDING LOCATI ON 06:30-0400 [facility] (20344) Sodium 134 mmol/L (L) 135 - 145 mmol/L 03-05-2020 PEND ING LOCATION [Moles/Vol] 05:25-0400 [facility] (50680) Specific gravity 1.010 (L) 03-05-2020 PENDING L OCATION (U) [Rel 06:30-0400 [facility] (53350) density] Urea nitrogen 11 mg/dL (NEG) 7 - 20 mg/dL 03-05-2020 PENDI NG LOCATION [Mass/Vol] 05:25-0400 [facility] (54577) Urea 15 mg/mg (no code) 6 - 22 mg/mg 03-05-2020 PENDING L OCATION nitrogen/Creatin 05:25-0400 [facility] (60693) ine [Mass ratio] Urinalysis YES (no code) 03-05-2020 PENDING LOCATI ON complete W 06:30-0400 [facility] (12085) Reflex Culture panel - Urine Urobilinogen (U) 0.2 mg/dL (no code) 03-05-2020 PENDING L OCATION [Mass/Vol] 06:30-0400 [facility] (95576) WBC (Bld) 4.1 10*3/uL (L) 3.5 - 10.5 03-05-2020 PENDING L OCATION [#/Vol] 10*3/uL 05:25-0400 [facility] (75894) WBC LM.HPF no information (no code) 03-05-2020 PENDING LOC ATION (Urine sed) 06:30-0400 [facility] (40179) [#/Area] not yet categorized on 2020-03-02 Control Negative (no code) [facility] (64896) Exp date 10/01 (no code) [facility] (52909) Lot # [id number] (no code) [facility] (56590) laboratory on 2020-02-19 Albumin 4.0 g/dL (NEG) 3.4 - 5.4 g/dL 02-19-2020 PENDING LOCATION [Mass/Vol] 09:35-0400 [facility] (00916) ALP [Catalytic 53 U/L (NEG) 44 - 147 U/L 02-19-2020 PEND ING LOCATION activity/Vol] 09:35-0400 [facility] (66431) ALT [Catalytic 10 U/L (NEG) 4 - 40 U/L 02-19-2020 PENDIN G LOCATION activity/Vol] 09:35-0400 [facility] (89922) Amorphous FEW JEANCARLOS URATES (A) 02-19-2020 PENDING LO CATION sediment LM Ql 09:55-0400 [facility] (56297) (Urine sed) Anion gap 12 mmol/L (NEG) 3 - 11 mmol/L 02-19-2020 PENDING LOCATION [Moles/Vol] 09:35-0400 [facility] (29385) AST [Catalytic 31 U/L (NEG) 10 - 34 U/L 02-19-2020 PENDI NG LOCATION activity/Vol] 09:35-0400 [facility] (15369) Bacteria LM Ql Negative (no code) 02-19-2020 PENDING LOC ATION (Urine sed) 09:55-0400 [facility] (35090) Basophils (Bld) 0.0 10*3/uL (NEG) 0 - 0.3 10*3/uL 02-19-2020 PENDING LOCATION [#/Vol] 09:35-0400 [facility] (09051) Basophils/100 1 % (NEG) 0.5 - 1 % 02-19-2020 PENDING LOCATION WBC (Bld) 09:35-0400 [facility] (21457) Bilirubin 0.3 mg/dL (NEG) 0.1 - 1.2 mg/dL 02-19-2020 PENDIN G LOCATION [Mass/Vol] 09:35-0400 [facility] (45884) Bilirubin Ql (U) Negative (no code) 02-19-2020 PENDING L OCATION 09:55-0400 [facility] (58866) Calcium 9.3 mg/dL (NEG) 8.5 - 10.2 mg/dL 02-19-2020 PENDI NG LOCATION [Mass/Vol] 09:35-0400 [facility] (41709) Casts LM Ql NONE (no code) 02-19-2020 PENDING LOCATI ON (Urine sed) 09:55-0400 [facility] (05032) Chloride 100 mmol/L (NEG) 95 - 106 mmol/L 02-19-2020 PENDI NG LOCATION [Moles/Vol] 09:35-0400 [facility] (12487) Clarity (U) CLEAR (no code) 02-19-2020 PENDING LOCATI ON 09:55-0400 [facility] (56152) CO2 [Moles/Vol] 19 mmol/L (L) 23 - 29 mmol/L 02-19-2020 P ENDING LOCATION 09:35-0400 [facility] (69375) Color (U) YELLOW (no code) 02-19-2020 PENDING LOCATI ON 09:55-0400 [facility] (79655) Creatinine 0.73 mg/dL (NEG) 02-19-2020 PENDING LOCATI ON [Mass/Vol] 09:35-0400 [facility] (12756) Creatinine and > (no code) 02-19-2020 PENDING LOC ATION Glomerular 09:35-0400 [facility] ([id number]) filtration rate.predicted panel - Serum, Plasma or Blood Crystals LM Ql PRESENT (A) 02-19-2020 PENDING LOC ATION (Urine sed) 09:55-0400 [facility] ([id number]) Eosinophils 0.1 10*3/uL (NEG) 0.05 - 0.5 02-19-2020 PENDING LOCATION (Bld) [#/Vol] 10*3/uL 09:35-0400 [facility] (03001) Eosinophils/100 1 % (NEG) 1 - 4 % 02-19-2020 PENDIN G LOCATION WBC (Bld) 09:35-0400 [facility] ([id number]) Epithelial RARE (no code) 02-19-2020 PENDING LOCATI ON cells.squamous 09:55-0400 [facility] ([id number]) LM Ql (Urine sed) Erythrocyte 12.9 % (NEG) 11.6 - 14.6 % 02-19-2020 PENDIN G LOCATION distribution 09:35-0400 [facility] ([id number]) width (RBC) [Ratio] Ethanol mg/dL (NEG) 0 - 80 mg/dL 02-19-2020 PENDING L OCATION [Mass/Vol] 09:35-0400 [facility] (64083) Glucose 100 mg/dL (NEG) 60 - 125 mg/dL 02-19-2020 PENDING LOCATION [Mass/Vol] 09:35-0400 [facility] (71073) Glucose 103 mg/dL (NEG) 60 - 125 mg/dL 02-19-2020 PENDING LOCATION [Mass/Vol] 09:45-0400 [facility] (50439) Glucose Auto Negative (no code) 02-19-2020 PENDING LOCAT ION test strip Ql 09:55-0400 [facility] ([id number]) (U) Hematocrit (Bld) 34 % (L) 36.1 - 50.3 % 02-19-2020 P ENDING LOCATION [Volume 09:35-0400 [facility] ([id number]) fraction] Hemoglobin (Bld) 12.0 g/dL (NEG) 12.1 - 17.2 g/dL 02-19-2020 PENDING LOCATION [Mass/Vol] 09:35-0400 [facility] ([id number]) Ketones Auto Negative (no code) 02-19-2020 PENDING LOCAT ION test strip Ql 09:55-0400 [facility] ([id number]) (U) Leukocyte TRACE (A) 02-19-2020 PENDING LOCATI ON esterase Test 09:55-0400 [facility] (12306) strip Ql (U) Lymphocytes 1.6 10*3/uL (NEG) 0.9 - 2.9 02-19-2020 PENDING LOCATION (Bld) [#/Vol] 10*3/uL 09:35-0400 [facility] (23785) Lymphocytes/100 37 % (NEG) 20 - 40 % 02-19-2020 PENDIN G LOCATION WBC (Bld) 09:35-0400 [facility] (40010) MCH (RBC) 29 pg (NEG) 27 - 31 pg 02-19-2020 PENDING LOC ATION [Entitic mass] 09:35-0400 [facility] (40714) MCHC (RBC) 35 g/dL (NEG) 32 - 36 g/dL 02-19-2020 PENDING LOCATION [Mass/Vol] 09:35-0400 [facility] ([id number]) MCV (RBC) 84 (NEG) 02-19-2020 PENDING LOCATI ON [Entitic vol] 09:35-0400 [facility] ([id number]) Monocytes (Bld) 0.6 10*3/uL (NEG) 0.3 - 0.9 02-19-2020 PEND ING LOCATION [#/Vol] 10*3/uL 09:35-0400 [facility] (59203) Monocytes/100 13 % (H) 2 - 8 % 02-19-2020 PENDING LOCATION WBC (Bld) 09:35-0400 [facility] ([id number]) Mucus Ql (Urine SMALL (A) 02-19-2020 PENDING LO CATION sed) 09:55-0400 [facility] ([id number]) Neutrophils 2.1 10*3/uL (NEG) 1.7 - 7 10*3/uL 02-19-2020 PE NDING LOCATION (Bld) [#/Vol] 09:35-0400 [facility] ([id number]) Neutrophils/100 49 % (NEG) 40 - 60 % 02-19-2020 PENDIN G LOCATION WBC (Bld) 09:35-0400 [facility] (62581) Nitrite Ql (U) Negative (no code) 02-19-2020 PENDING LOC ATION 09:55-0400 [facility] ([id number]) pH (U) 7.5 [pH] (no code) 4.6 - 8 [pH] 02-19-2020 PENDING L OCATION 09:55-0400 [facility] ([id number]) Platelet mean 9.1 (NEG) 02-19-2020 PENDING LOCA TION volume (Bld) 09:35-0400 [facility] ([id number]) [Entitic vol] Platelets (Bld) 288 10*3/uL (NEG) 150 - 450 02-19-2020 PEND ING LOCATION [#/Vol] 10*3/uL 09:35-0400 [facility] (29980) Potassium 4.4 mmol/L (NEG) 3.7 - 5.2 mmol/L 02-19-2020 PEND ING LOCATION [Moles/Vol] 09:35-0400 [facility] ([id number]) Protein 7.6 g/dL (NEG) 6.4 - 8.3 g/dL 02-19-2020 PENDING LOCATION [Mass/Vol] 09:35-0400 [facility] ([id number]) Protein Ql (U) TRACE (A) 02-19-2020 PENDING LOC ATION 09:55-0400 [facility] ([id number]) RBC (Bld) 4.09 10*6/uL (L) 4.2 - 6.1 02-19-2020 PENDING L OCATION [#/Vol] 10*6/uL 09:35-0400 [facility] (84303) RBC LM.HPF no information (no code) 02-19-2020 PENDING LOC ATION (Urine sed) 09:55-0400 [facility] (76163) [#/Area] RBC Ql (U) Negative (no code) 02-19-2020 PENDING LOCATI ON 09:55-0400 [facility] (63204) Sodium 131 mmol/L (L) 135 - 145 mmol/L 02-19-2020 PEND ING LOCATION [Moles/Vol] 09:35-0400 [facility] (30876) Specific gravity 1.015 (L) 02-19-2020 PENDING L OCATION (U) [Rel 09:55-0400 [facility] (37244) density] Troponin ng/mL (NEG) 0 - 0.4 ng/mL 02-19-2020 PENDING LOCATION I.cardiac 09:35-0400 [facility] (29354) [Mass/Vol] TSH Qn 1.18 m[IU]/L (NEG) 0.4 - 4 m[IU]/L 02-19-2020 PEN DING LOCATION 09:35-0400 [facility] (07675) Urea nitrogen 9 mg/dL (NEG) 7 - 20 mg/dL 02-19-2020 PENDI NG LOCATION [Mass/Vol] 09:35-0400 [facility] (91141) Urea 12 mg/mg (no code) 6 - 22 mg/mg 02-19-2020 PENDING L OCATION nitrogen/Creatin 09:35-0400 [facility] (43592) ine [Mass ratio] Urinalysis NO (no code) 02-19-2020 PENDING LOCATI ON complete W 09:55-0400 [facility] (89095) Reflex Culture panel - Urine Urobilinogen (U) 0.2 mg/dL (no code) 02-19-2020 PENDING L OCATION [Mass/Vol] 09:55-0400 [facility] (77056) WBC (Bld) 4.4 10*3/uL (NEG) 3.5 - 10.5 02-19-2020 PENDING L OCATION [#/Vol] 10*3/uL 09:35-0400 [facility] (67473) WBC LM.HPF RARE (no code) 02-19-2020 PENDING LOCATI ON (Urine sed) 09:55-0400 [facility] (89498) [#/Area] not yet categorized on 2019-12-16 no information [facility] (no code) [facility] ~ [address] ~ [place] [address] ~ ~ Mammography Report ~ Signed ~ ~Patient: Louise Vale MR#: [id number] ~: 1955 ~Age/Sex: 64 / F ADM Date: 12/16/19 ~Loc: WC.BC DIS Date: ~= = = [...] ~Reason for Exam(s): screening mammo ~ ~ ~#[id number] - MM SCREENING VENUS BI W/PRANEETH ~ ~BILATERAL DIGITAL SCREENING MAMMOGRAM 3D/2D WITH CAD: 12/16/2019 ~ ~CLINICAL: Z12.31-Encounter for screening mammogram. ~ ~Digital Breast Tomosynthesis was performed. ~ Current study was also evaluated with a Computer Aided Detection (CAD) system. ~ ~ ~Comparison is made to exams dated: 12/01/2018 mammogram and 07/26/2016 mammogram ~ ~- [facility]. ~The tissue of both breasts is extremely dense, which lowers the sensitivity of ~ ~mammography. ~ ~No significant masses, calcifications, or other findings are seen in either ~breast. ~ ~IMPRESSION: NEGATIVE ~There is no mammographic evidence of malignancy. A 1 year screening mammogram is ~ ~ recommended. ~The patient was notified of the results. ~ ~ ~Dr. Joseph Milan ~[facility]/[place]:2019 11:22:58 ~ ~Formal Wear Rental Clerk(s): RT Clarita(R)(M), [facility] ~letter sent: Normal/Benign Category 1/2 ~BI-RADS: 1 Negative laboratory on 2019-07-27 Albumin 4.3 g/dL (N) 3.4 - 5.4 g/dL [facility] [Mass/Vol] [facility] (08508) Albumin 4.3 g/dL (N) 3.4 - 5.4 g/dL [facility] [Mass/Vol] [facility] (78992) Albumin/Globulin 1.3 {ratio} (N) 1 - 2.5 {ratio} Comm [facility] [Mass ratio] [facility] () Albumin/Globulin 1.3 {ratio} (N) 1 - 2.5 {ratio} Comm [facility] [Mass ratio] [facility] (13644) ALP [Catalytic 72 U/L (N) 44 - 147 U/L [facility] activity/Vol] [facility] () ALP [Catalytic 72 U/L (N) 44 - 147 U/L [facility] activity/Vol] [facility] () ALT [Catalytic 9 U/L (N) 4 - 40 U/L [facility] () ALT [Catalytic 9 U/L (N) 4 - 40 U/L [facility] activity/Vol] [facility] (38889) AST [Catalytic 27 U/L (N) 10 - 34 U/L [facility] activity/Vol] [facility] (82135) AST [Catalytic 27 U/L (N) 10 - 34 U/L [facility] activity/Vol] [facility] (79801) Bilirubin 0.3 mg/dL (N) 0.1 - 1.2 mg/dL [facility] [Mass/Vol] [facility] (09339) Bilirubin 0.3 mg/dL (N) 0.1 - 1.2 mg/dL [facility] [Mass/Vol] [facility] (52469) Calcidiol 53 ng/mL (N) 20 - 50 ng/mL Community ealt [Mass/Vol] [facility] (50876) Calcidiol 53 ng/mL (N) 20 - 50 ng/mL [facility] ealt [Mass/Vol] [facility] (20773) Calcium 9.9 mg/dL (N) 8.5 - 10.2 mg/dL [facility] [Mass/[facility]] [facility] (68101) Calcium 9.9 mg/dL (N) 8.5 - 10.2 mg/dL [facility] [Mass/Vol] [facility] (39314) Chloride 96 mmol/L (L) 95 - 106 mmol/L [facility] [Moles/Vol] [facility] (59840) Chloride 96 mmol/L (L) 95 - 106 mmol/L [facility] [Moles/Vol] [facility] (45149) Cholesterol 198 mg/dL (N) 180 - 200 mg/dL [facility] [Mass/Vol] [facility] (90303) Cholesterol 198 mg/dL (N) 180 - 200 mg/dL [facility] [Mass/Vol] [facility] (00053) Cholesterol in 84 mg/dL (N) [facility] HDL [Mass/Vol] [facility] (55974) Cholesterol in 84 mg/dL (N) [facility] h HDL [Mass/Vol] [facility] (98997) Cholesterol in 97 mg/dL (N) 0 - 100 mg/dL [facility] LDL [Mass/Vol] [facility] (10060) Cholesterol in 97 mg/dL (N) 0 - 100 mg/dL [facility] LDL [Mass/Vol] [facility] (08080) Cholesterol non 114 mg/dL (N) [facility] HDL [Mass/Vol] [facility] (63587) Cholesterol non 114 mg/dL (N) [facility] HDL [Mass/Vol] [facility] (62970) Cholesterol.tota 2.4 {ratio} (N) [facility] l/Cholesterol in [facility] HDL [Mass ratio] [facility] (49406) Cholesterol.tota 2.4 {ratio} (N) [facility] lt l/Cholesterol in [facility] HDL [Mass ratio] [facility] (59977) CO2 [Moles/Vol] 28 mmol/L (N) 23 - 29 mmol/L [facility] (16937) CO2 [Moles/Vol] 28 mmol/L (N) 23 - 29 mmol/L [facility] (48824) Creatinine 0.63 mg/dL (N) [facility] [Mass/Vol] [facility] (30762) Creatinine 0.63 mg/dL (N) [facility] [Mass/Vol] [facility] (95643) GFR/1.73 sq M 111 (N) 90 - 120 [facility] He alth predicted among mL/min/{1.73_m2} mL/min/{1.73_m2} [facility] MDRD [facility] (S/P/Bld) [Vol (55088) rate/Area] GFR/1.73 sq M 111 (N) 90 - 120 [facility] alth predicted among mL/min/{1.73_m2} mL/min/{1.73_m2} [facility] MDRD [facility] (S/P/Bld) [Vol (11423) rate/Area] GFR/1.73 sq 96 (N) 90 - 120 [facility] th M.predicted MDRD mL/min/{1.73_m2} mL/min/{1.73_m2} [facility] (S/P/Bld) [Vol [facility] rate/Area] (07394) GFR/1.73 sq 96 (N) 90 - 120 Community [facility] th M.predicted MDRD mL/min/{1.73_m2} mL/min/{1.73_m2} [facility] (S/P/Bld) [Vol [facility] rate/Area] (45464) Globulin (S) 3.4 g/dL (N) 2 - 3.5 g/dL [facility] [Mass/Vol] [facility] (89996) Globulin (S) 3.4 g/dL (N) 2 - 3.5 g/dL Community ealt [Mass/Vol] [facility] (97212) Glucose 84 mg/dL (N) 60 - 125 mg/dL [facility] [Mass/Vol] [facility] (68053) Glucose 84 mg/dL (N) 60 - 125 mg/dL [facility] [Mass/Vol] [facility] (76854) Potassium 4.7 mmol/L (N) 3.7 - 5.2 mmol/L [facility] [Moles/Vol] [facility] (56538) Potassium 4.7 mmol/L (N) 3.7 - 5.2 mmol/L [facility] [Moles/Vol] [facility] (46383) Protein 7.7 g/dL (N) 6.4 - 8.3 g/dL [facility] [Mass/Vol] [facility] (06932) Protein 7.7 g/dL (N) 6.4 - 8.3 g/dL [facility] [Mass/Vol] [facility] (91003) Sodium 131 mmol/L (L) 135 - 145 mmol/L [facility] [Moles/Vol] [facility] (88321) Sodium 131 mmol/L (L) 135 - 145 mmol/L [facility] [Moles/Vol] [facility] (19707) Triglyceride 78 mg/dL (N) 0 - 150 mg/dL [facility] [Mass/Vol] [facility] (31116) Triglyceride 78 mg/dL (N) 0 - 150 mg/dL [facility] [Mass/Vol] [facility] (07393) Urea nitrogen 8 mg/dL (N) 7 - 20 mg/dL [facility] [Mass/Vol] [facility] (70320) Urea nitrogen 8 mg/dL (N) 7 - 20 mg/dL [facility] [Mass/Vol] [facility] (76009) Urea NOT APPLICABLE (no code) [facility] nitrogen/Creatin [facility] [Mass ratio] [facility] (63970) Urea NOT APPLICABLE (no code) [facility] nitrogen/Creatin [facility] [Mass ratio] [facility] (75209) not yet categorized on 2019-04-13 COMMENT no information (no code) [facility] (16070) COMMENT no information (no code) [facility] (88407) medMATCH CONSISTENT (no code) [facility] Aminoclonazepam [facility] (02855) medMATCH CONSISTENT (no code) [facility] Aminoclonazepam [facility] (49338) medMATCH CONSISTENT (no code) [facility] Amphetamines [facility] (91421) medMATCH CONSISTENT (no code) [facility] Amphetamines [facility] (79765) medMATCH aOH CONSISTENT (no code) [facility] alprazolam [facility] (52935) medMATCH aOH CONSISTENT (no code) [facility] alprazolam [facility] (32172) medMATCH aOH CONSISTENT (no code) [facility] midazolam [facility] (69750) medMATCH aOH CONSISTENT (no code) [facility] midazolam [facility] (04685) medMATCH aOH CONSISTENT (no code) [facility] triazolam [facility] (85241) medMATCH aOH CONSISTENT (no code) [facility] triazolam [facility] (03079) medMATCH Cocaine CONSISTENT (no code) [facility] Metab Center [facility] (62268) medMATCH Cocaine CONSISTENT (no code) [facility] Metab Center [facility] (20029) medMATCH INCONSISTENT (no code) [facility] Desmethyltram Center [facility] (66901) medMATCH CONSISTENT (no code) [facility] Lorazepam [facility] (12362) medMATCH CONSISTENT (no code) [facility] Lorazepam [facility] (06212) medMATCH CONSISTENT (no code) [facility] Marijuana Metab Center [facility] (78677) medMATCH CONSISTENT (no code) [facility] Marijuana Metab Center [facility] (76365) medMATCH CONSISTENT (no code) [facility] Nordiazepam [facility] (56120) medMATCH CONSISTENT (no code) [facility] Nordiazepam [facility] (92591) medMATCH [place],Et CONSISTENT (no code) [facility] flurazepam Center [facility] (34143) medMATCH [place],Et CONSISTENT (no code) [facility] flurazepam Center [facility] (50083) medMATCH Opiates CONSISTENT (no code) [facility] (61047) medMATCH Opiates CONSISTENT (no code) [facility] (34309) medMATCH CONSISTENT (no code) [facility] Oxazepam [facility] (48302) medMATCH CONSISTENT (no code) [facility] Oxazepam [facility] (10635) medMATCH CONSISTENT (no code) [facility] Oxycodone [facility] (63196) medMATCH CONSISTENT (no code) [facility] Oxycodone [facility] (20491) medMATCH CONSISTENT (no code) [facility] Temazepam [facility] (74508) medMATCH CONSISTENT (no code) [facility] Temazepam Center [facility] (36401) medMATCH INCONSISTENT (no code) [facility] Tramadol Center [facility] (15082) Prescribed Drug Tramadol (no code) [facility] 1 [facility] (73804) Prescribed Drug Tramadol (no code) [facility] 1 [facility] (72770) Prescribed Drug Ativan(TM) (no code) [facility] (82532) Prescribed Drug Ativan(TM) (no code) [facility] (39271) laboratory on 2019-04-13 1-Hydroxymidazol Negative (no code) [facility] am (U) [facility] [Mass/Vol] [facility] (68652) 1-Hydroxymidazol Negative (no code) [facility]th am (U) [facility] [Mass/Vol] [facility] (33357) 7-Aminoclonazepa Negative (no code) [facility] m (U) [Mass/Vol] [facility] (46201) 7-Aminoclonazepa Negative (no code) [facility] m (U) [Mass/Vol] [facility] (34595) Alpha Negative (no code) [facility] hydroxyal[facility]razola [facility] m (U) [Mass/Vol] [facility] (28469) Alpha Negative (no code) [facility] hydroxyal[facility]ola [facility] m (U) [Mass/Vol] [facility] (87122) Alpha Negative (no code) [facility]alt hydroxytriazolam [facility] (U) [Mass/Vol] [facility] (66177) Alpha Negative (no code) [facility] hydroxyt[facility]azolam [facility] (U) [Mass/Vol] [facility] (88689) Amphetamines Ql Negative (no code) [facility] th (U) [facility] (53444) Amphetamines Ql Negative (no code) [facility] th (U) [facility] (48424) Benzodiazepines Positive (A) Community [facility] Ql (U) [facility] (47696) Benzodiazepines Positive (A) [facility] Ql (U) [facility] (69170) Benzoylecgonine Negative (no code) [facility] Ql (U) [facility] (51831) Benzoylecgonine Negative (no code) [facility] Ql (U) [facility] (64326) Creatinine (U) 11.2 mg/dL (L) [facility] [Mass/Vol] [facility] (70806) Creatinine (U) 11.2 mg/dL (L) [facility] [Mass/Vol] [facility] (88465) Hydroxyethylflur Negative (no code) Community [facility] azepam (U) [facility] [Mass/Vol] [facility] (41369) Hydroxyethylflur Negative (no code) [facility] azepam (U) [facility] (80626) Lorazepam (U) 50 (H) [facility] [Mass/Vol] [facility] (98116) Lorazepam (U) 50 (H) [facility] [Mass/Vol] [facility] (53994) Nordiazepam (U) Negative (no code) Community [facility] [Mass/Vol] [facility] (21406) Nordiazepam (U) Negative (no code) Community [facility] [Mass/Vol] [facility] (36835) Nortramadol (U) Negative (no code) [facility] [Mass/Vol] [facility] (82202) Opiates Ql (U) Negative (no code) [facility] (75136) Opiates Ql (U) Negative (no code) [facility] (63063) Oxazepam (U) Negative (no code) [facility] [Mass/Vol] [facility] (41100) Oxazepam (U) Negative (no code) [facility] [Mass/Vol] [facility] (71195) Oxidants Ql (U) Negative (no code) [facility] (61488) Oxidants Ql (U) Negative (no code) [facility] (14719) Oxycodone Ql (U) Negative (no code) [facility] (89048[facility] Oxycodone Ql (U) Negative (no code) [facility] (54576[facility] pH (U) 7.09 [pH] (no code) 4.6 - 8 [pH] Community [facility] alth [facility] (06488) pH (U) 7.09 [pH] (no code) 4.6 - 8 [pH] Community He [facility] (74236) Specific gravity 1.003 (no code) [facility]th (U) [[facility]] [facility] (24950) Specific gravity 1.003 (no code) [facility] (U) [[facility]] [facility] (13495) Temazepam (U) Negative (no code) [facility] [Mass/Vol] [facility] (07218) Temazepam (U) Negative (no code) [facility] [Mass/Vol] [facility] (57520) Tetrahydrocannab Negative (no code) Community Hea lt inol Ql (U) [facility] (97495) Tetrahydrocannab Negative (no code) Community [facility] inol Ql (U) [facility] (17505) Tramadol (U) Negative (no code) [facility] Healt h [Mass/Vol] [facility] (01288) other on 2018-12-01 no information [facility] (no code) [facility] ~ [address] ~ [place] [address] ~ ~ Mammography Report ~ Signed ~ ~Patient: Louise Vale MR#: [id number] ~: 1955 ~Age/Sex: 63 / F ADM Date: 12/01/18 ~Loc: . DIS Date: ~= = = [...] ~Reason for Exam(s): mammo screening ~ ~ ~#[id number] - MM SCREENING VENUS BI W/PRANEETH ~BILATERAL DIGITAL SCREENING MAMMOGRAM 3D/2D WITH CAD: 12/01/2018 ~CLINICAL: Z12.31-Encounter for screening mammogram. ~ ~Digital Breast Tomosynthesis was performed. ~ Current study was also evaluated with a Computer Aided Detection (CAD) system. ~ ~ ~Comparison is made to exams dated: 07/26/2016 [facility]ogram - [facility], ~ ~ 06/08/2015 mammogram, 05/31/2015 mammogram, and 05/06/2014 mammogram - [address] ~ ~ Preeti, Donnie Gill. ~ ~The tissue of both breasts is extremely dense, which lowers the sensitivity of ~ ~mammography. ~No significant masses, calcifications, or other findings are seen in either ~breast. ~ ~IMPRESSION: NEGATIVE ~There is no mammographic evidence of malignancy. A 1 year screening mammogram is ~ ~ recommended. ~The patient was notified of the results. ~ ~ ~Dr. Joseph Milan ~[facility]/:12/01/2018 15:29:52 ~ ~Formal Wear Rental Clerk: Seema Trivedi RT(R)(M), [facility] ~letter sent: Normal/Benign Category 1/2 ~BI-RADS: 1 Negative other on 2018-11-24 no information [facility] - Main (no code) [facility] ~ [address] ~ [place] [address] ~ ~ Operative Note ~ Signed ~ ~Patient: Louise Vale MR#: [id number] ~: 1955 ~Age/Sex: 63 / F ADM [...] ~ ~DATE OF SERVICE ~11/23/2018 ~ ~SURGEON ~Elie Vidal MD ~ ~PREOPERATIVE DIAGNOSIS ~Personal history for adenomatous colon polyps. ~ ~POSTOPERATIVE DIAGNOSIS ~Personal history for adenomatous colon polyps, minimal sigmoid diverticulosis. ~ ~PROCEDURE ~Colonoscopy ~ ~ANESTHESIA ~TIVA ~ ~BRIEF HISTORY/INDICATI ONS ~Mrs. Vale is a 63-year-old female who has a [...] underwent total intravenous anesthesia by the nurse tubing machine operator per ~my request. Formal time-out was then [...] specific indication should arise ~in the future. other on 2018-11-23 no information [facility] - Main (no code) [facility] ~ [address] ~ [place] [address] ~ ~ Anesthesia Preoperative Report ~ Signed ~ ~Patient: Louise Vale MR#: [id number] ~: 1955 ~Age/Sex: 63 / F ADM Date: 11/23/18 ~Loc: [facility].PERIOP KAYLEE-E DIS Date: ~= = = = [...] Flushing ~Sodium Phosphate (Fleet Enema) 1 enema ID PRN PRN ~ ~ ~Home Medications: ~ [...] Yes ~ ~ ~Documented By: Linwood Whiting CRNA 11/23/1807 ~Signed By: <Electronically signed by Linwood Whiting SOFTBALL CORE MOLDER> 11/23/1835 ~ ~ no information [facility] - Main (no code) [facility] ~ [address] ~ [place] [address] ~ ~ Anesthesia Postoperative Note ~ Signed ~ ~Patient: Louise Vale MR#: [id number] ~: 1955 ~Age/Sex: 63 / F ADM [...] ~ ~ ~ ~Documented By: Linwood Whiting CRNA 11/23/18 1014 ~Signed By: <Electronically signed by Linwood Whiting SOFTBALL CORE MOLDER> 11/23/18 1015 ~ ~ urinalysis on 2018-10-02 Bacteria SEE NOTE (A) [facility] identified Cx [facility] (U) [facility] (19780) Protein (U) Negative (no code) 0 - 20 mg/dL Community [facility] alth [Mass/Vol] [facility] (71895) other on 2018-10-02 BLO 1+ (no code) [facility] (16419) Exp date Positive (no code) [facility] (52938) KET 2019-06-09~cloud (no code) [facility] y~yellow~none~ne [facility]~negative~ [facility] negative (33521) Lot # [id number] (no code) [facility] (74610) SG 1.010 (no code) [facility] (40598) URO 0.2 (no code) [facility] (03470) hematology on 2018-10-02 pH (Bld) 7.0 [pH] (no code) 7.38 - 7.42 [pH] [facility] (07955) thyroid on 2018-05-05 Thyrotropin Qn 1.73 m[IU]/L (N) 0.4 - 4 m[IU]/L Not A vailable (84467) other on 2018-05-05 Albumin/Globulin 1.5 (N) no informatio n mass ratio Calcidiol mass 54 ng/mL (N) 20 - 50 ng/mL Not Avai lable conc (31045) Cholesterol in 96 (N) Not Available LDL mass conc (43161) Cholesterol non 114 (N) Not Available HDL mass conc (54542) Cholesterol.tota 2.3 (N) Not Available l/Cholesterol in (05055) HDL mass ratio Globulin 3.4 (N) no information Calculated mass conc (S) metabolic panel on 2018-05-05 Albumin mass 5.0 g/dL (N) 3.4 - 5.4 g/dL no inform ation conc ALP enzyme 92 U/L (N) 44 - 147 U/L no informati on act/vol ALT enzyme 14 U/L (N) 4 - 40 U/L no information act/vol AST enzyme 37 U/L (H) 10 - 34 U/L no informatio n act/vol Bilirubin mass 0.5 mg/dL (N) 0.1 - 1.2 mg/dL no inf ormation conc Calcium mass 10.5 mg/dL (H) 8.5 - 10.2 mg/dL no info rmation conc Chloride molar 96 mmol/L (L) 95 - 106 mmol/L no inf ormation conc CO2 molar conc 25 mmol/L (N) 23 - 29 mmol/L no info rmation Creatinine mass 0.64 mg/dL (N) no information conc GFR/1.73 sq M 112 (N) 90 - 120 no informati on predicted among mL/min/{1.73_m2} mL/min/{1.73_m2} blacks MDRD vol rate/area (S/P/Bld) GFR/1.73 sq 96 (N) 90 - 120 no information M.predicted MDRD mL/min/{1.73_m2} mL/min/{1.73_m2} vol rate/area Glucose mass 101 mg/dL (H) 60 - 125 mg/dL no inform ation conc Magnesium mass 1.9 mg/dL (N) 1.7 - 2.2 mg/dL Not Av ailable conc (05967) Potassium molar 4.2 mmol/L (N) 3.7 - 5.2 mmol/L no i nformation conc Protein mass 8.4 g/dL (H) 6.4 - 8.3 g/dL no inform ation conc Sodium molar 133 mmol/L (L) 135 - 145 mmol/L no info rmation conc Urea nitrogen 7 mg/dL (N) 7 - 20 mg/dL no informa tion mass conc Urea NOT APPLICABLE (no code) no information nitrogen/Creatin ine mass ratio hematology on 2018-05-05 Basophils Auto 0.022 10*3/uL (N) 0 - 0.3 10*3/uL no i nformation #/vol (Bld) Basophils/100 0.4 % (N) 0.5 - 1 % no informati on WBC Auto (Bld) Eosinophils Auto 0.011 10*3/uL (L) 0.05 - 0.5 no info rmation #/vol (Bld) 10*3/uL Eosinophils/100 0.2 % (N) 1 - 4 % no informa tion WBC Auto (Bld) Erythrocyte 13.0 % (N) 11.6 - 14.6 % no informat ion distribution width Auto Ratio (RBC) Hematocrit Auto 40.4 % (N) 36.1 - 50.3 % no info rmation Volume Fraction (Bld) Hemoglobin mass 13.3 g/dL (N) 12.1 - 17.2 g/dL no i nformation conc (Bld) Lymphocytes Auto 1.258 10*3/uL (N) 0.9 - 2.9 no info rmation #/vol (Bld) 10*3/uL Lymphocytes/100 23.3 % (N) 20 - 40 % no informa tion WBC Auto (Bld) MCH Auto Entitic 27.4 pg (N) 27 [...] 450 no informat ion #/vol (Bld) 10*3/uL RBC Auto #/vol 4.85 10*6/uL (N) 4.2 - 6.1 no informa tion (Bld) 10*6/uL WBC Auto #/vol 5.4 10*3/uL (N) 3.5 - 10.5 no informat ion (Bld) 10*3/uL cardiac on 2018-05-05 Cholesterol in 90 mg/dL (N) Not Available HDL mass conc (28276) Cholesterol mass 204 mg/dL (H) 180 - 200 mg/dL Not Available conc (31844) Triglyceride 89 mg/dL (N) 0 - 150 mg/dL Not Availa ble mass conc (54812) other on 2018-02-03 Albumin/Globulin 1.3 (N) [facility] (41696) Globulin 3.5 (N) [facility] (S) [facility] (92644) metabolic panel on 2018-02-03 Albumin mass 4.7 g/dL (N) 3.4 - 5.4 g/dL [facility] (62691) ALP enzyme 93 U/L (N) 44 - 147 U/L [facility] alth act/[facility] (78087) ALT enzyme 11 U/L (N) 4 - 40 U/L [facility] act/[facility] ([id number]) AST enzyme 27 U/L (N) 10 - 34 U/L [facility] act/[facility] (90645) Bilirubin mass 0.3 mg/dL (N) 0.1 - 1.2 mg/dL [facility] (39229) Calcium mass 10.4 mg/dL (N) 8.5 - 10.2 mg/dL [facility] (93135) Chloride molar 99 mmol/L (N) 95 - 106 mmol/L [facility] (24489) CO2 molar conc 27 mmol/L (N) 23 - 29 mmol/L [facility] (60911) Creatinine mass 0.57 mg/dL (N) [facility] (18662) GFR/1.73 sq M 116 (N) 90 - 120 [facility] predicted among mL/min/{1.73_m2} mL/min/{1.73_m2} [facility] f [facility] MDRD [facility] rate/area (54119) (S/P/Bld) GFR/1.73 sq 100 (N) 90 - 120 [facility] M.predicted MDRD mL/min/{1.73_m2} mL/min/{1.73_m2} [facility] rate/[facility] (58152) Glucose mass 78 mg/dL (N) 60 - 125 mg/dL [facility] (67562) Potassium molar 4.3 mmol/L (N) 3.7 - 5.2 mmol/L [facility] (61122) Protein mass 8.2 g/dL (H) 6.4 - 8.3 g/dL [facility] (19217) Sodium molar 131 mmol/L (L) 135 - 145 mmol/L [facility] (65020) Urea nitrogen 7 mg/dL (N) 7 - 20 mg/dL [facility] (43573) Urea NOT APPLICABLE (no code) [facility]alt [facility] nitrogen/Creatin [facility] mass [facility] (22298) hematology on 2018-02-03 Basophils Auto 0.049 10*3/uL (N) 0 - 0.3 10*3/uL Comm [facility] #/vol (Bld) [facility] (75024) Basophils/100 1.2 % (N) 0.5 - 1 % [facility] alth WBC Auto (Bld) [facility] (43442) Eosinophils Auto 0.029 10*3/uL (N) 0.05 - 0.5 [facility] #/vol (Bld) 10*3/uL [facility] (62167) Eosinophils/100 0.7 % (N) 1 - 4 % [facility] WBC Auto (Bld) [facility] (44692) Erythrocyte 12.2 % (N) 11.6 - 14.6 % [facility] ealth distribution [facility] Auto Ratio [facility] (RBC) (58910) Hematocrit Auto 39.3 % (N) 36.1 - 50.3 % [facility] Volume Fraction [facility] (d) [facility] (24706) Hemoglobin mass 12.8 g/dL (N) 12.1 - 17.2 g/dL Comm [facility] conc (Bld) [facility] (38826) Lymphocytes Auto 1.595 10*3/uL (N) 0.9 - 2.9 [facility] #/vol (Bld) 10*3/uL [facility] (14885) Lymphocytes/100 38.9 % (N) 20 - 40 % [facility] WBC Auto (Bld) [facility] (14424) MCH Auto Entitic 28.8 pg (N) 27 - 31 pg [facility] mass (RBC) [facility] (81641) MCHC Auto mass 32.6 g/dL (N) 32 - 36 g/dL [facility] conc (RBC) [facility] (06397) MCV Auto Entitic 88.5 fL (N) 80 - 100 fL [facility] volume (RBC) [facility] (36009) Monocytes Auto 0.316 10*3/uL (N) 0.3 - 0.9 [facility] #/vol (Bld) 10*3/uL [facility] (13226) Monocytes/100 7.7 % (N) 2 - 8 % [facility] alth WBC Auto (Bld) [facility] (58232) Neutrophils Auto 2.112 10*3/uL (N) 1.7 - 7 10*3/uL [facility] #/vol (Bld) [facility] (15446) Neutrophils/100 51.5 % (N) 40 - 60 % [facility] WBC Auto (Bld) [facility] (69479) Platelet mean 9.2 fL (N) 7.2 - 11.7 fL [facility] volume Auto [facility] (Bld) (70763) Platelets Auto 362 10*3/uL (N) 150 - 450 [facility] ealth #/vol (Bld) 10*3/uL [facility] (87733) RBC Auto #/vol 4.44 10*6/uL (N) 4.2 - 6.1 [facility] (Bld) 10*6/uL [facility] (75116) WBC Auto #/vol 4.1 10*3/uL (N) 3.5 - 10.5 [facility] ealth (Bld) 10*3/uL [facility] (34306) other on 2017-12-12 Control Negative (no code) [facility] (41826) Exp date 2020-03-23 (no code) [facility] (34567) Lot # [id number] (no code) [facility] (82878) other on 2017-06-13 Albumin/Globulin 1.6 {ratio} (no code) 1 - 2.5 {ratio} 7 Not Available mass ratio 08:44-0400 (50187) Globulin 2.9 g/dL (no code) 2 - 3.5 g/dL 06-13-2017 Not Avail able Calculated mass 08:440400 (23149) conc (S) Immature 0.0 10*3/uL (no code) 0 - 0.2 10*3/uL 06-13-2017 Not Available granulocytes 08:46-0400 (91677) #/vol (Bld) Immature 0 % (no code) 0 - 0.5 % 06-13-2017 Not Availabl e granulocytes/100 08:460400 (16700) WBC (Bld) metabolic panel on 2017-06-13 Albumin mass 4.7 g/dL (no code) 3.4 - 5.4 g/dL 06-13-2017 Not Available conc 08:44-0400 (94030) ALP enzyme 101 U/L (no code) 44 - 147 U/L 06-13-2017 Not Avai lable act/vol 08:440400 (32526) ALT enzyme 20 U/L (no code) 4 - 40 U/L 06-13-2017 Not Availa ble act/vol 08:440400 (25475) AST enzyme 35 U/L (no code) 10 - 34 U/L 06-13-2017 Not Avail able act/vol 08:440400 (81050) Bilirubin mass mg/dL (no code) 0.1 - 1.2 mg/dL 06-13-2017 N ot Available conc 08:44-0400 (92197) Calcium mass 9.9 mg/dL (no code) 8.5 - 10.2 mg/dL 06-13-2017 No t Available conc 08:44-0400 (00274) Chloride molar 90 mmol/L (L) 95 - 106 mmol/L 06-13-2017 N ot Available conc 08:33-0400 (51592) CO2 molar conc 24 mmol/L (no code) 23 - 29 mmol/L 06-13-2017 No t Available 08:47-0400 (97360) Creatinine mass 0.58 mg/dL (no code) 06-13-2017 Not Availa ble conc 08:44-0400 (47302) GFR/1.73 sq M 116 (no code) - 120 06-13-2017 Not Avai lable predicted among mL/min/{1.73_m2} mL/min/{1.73_m2} 08:440400 (98337) blacks MDRD vol rate/area (S/P/Bld) GFR/1.73 sq M 101 (no code) 90 - 120 06-13-2017 Not Avai lable predicted among mL/min/{1.73_m2} mL/min/{1.73_m2} 08:440400 (54561) non-blacks MDRD vol rate/area (S/P/Bld) Glucose mass 87 mg/dL (no code) 60 - 125 mg/dL 06-13-2017 Not Available conc 08:470400 (40430) Potassium molar 4.5 mmol/L (no code) 3.7 - 5.2 mmol/L 06-13-2017 Not Available conc 08:37-0400 (08930) Protein mass 7.6 g/dL (no code) 6.4 - 8.3 g/dL 06-13-2017 Not Available conc 08:44-0400 (01314) Sodium molar 130 mmol/L (L) 135 - 145 mmol/L 06-13-2017 N ot Available conc 08:33-0400 (15796) Urea nitrogen 9 mg/dL (no code) 7 - 20 mg/dL 06-13-2017 Not A vailable mass conc 08:44-0400 (41695) Urea 16 mg/mg (no code) 6 - 22 mg/mg 06-13-2017 Not Avail able nitrogen/Creatin 08:44-0400 (48540) ine mass ratio hematology on 2017-06-13 Basophils Auto 0.0 10*3/uL (no code) 0 - 0.3 10*3/uL 06-13-2017 Not Available #/vol (Bld) 08:46-0400 (17258) Basophils/100 1 % (no code) 0.5 - 1 % 06-13-2017 Not Avai lable WBC Auto (Bld) 08:46-0400 (13646) Eosinophils Auto 0.1 10*3/uL (no code) 0.05 - 0.5 06-13-2017 No t Available #/vol (Bld) 10*3/uL 08:46-0400 (52013) Eosinophils/100 1 % (no code) 1 - 4 % 06-13-2017 Not Av ailable WBC Auto (Bld) 08:46-0400 (96346) Erythrocyte 13.3 % (no code) 11.6 - 14.6 % 06-13-2017 Not Av ailable distribution 08:46-0400 (04878) width Auto Ratio (RBC) Hematocrit Auto 38.2 % (no code) 36.1 - 50.3 % 06-13-2017 No t Available Volume Fraction 08:460400 (91050) (Bld) Hemoglobin mass 12.5 g/dL (no code) 12.1 - 17.2 g/dL 06-13-2017 Not Available conc (Bld) 08:46-0400 (95314) Lymphocytes Auto 1.6 10*3/uL (no code) 0.9 - 2.9 06-13-2017 Not Available #/vol (Bld) 10*3/uL 08:46-0400 (40620) Lymphocytes/100 35 % (no code) 20 - 40 % 06-13-2017 Not Av ailable WBC Auto (Bld) 08:46-0400 (03775) MCH Auto Entitic 29.3 pg (no code) 27 - 31 pg 06-13-2017 Not Available mass (RBC) 08:46-0400 (94098) MCHC Auto mass 32.7 g/dL (no code) 32 - 36 g/dL 06-13-2017 Not Available conc (RBC) 08:46-0400 (22874) MCV Auto Entitic 90 fL (no code) 80 - 100 fL 06-13-2017 Not Available volume (RBC) 08:46-0400 (01935) Monocytes Auto 0.4 10*3/uL (no code) 0.3 - 0.9 06-13-2017 Not A vailable #/vol (Bld) 10*3/uL 08:46-0400 (96282) Monocytes/100 8 % (no code) 2 - 8 % 06-13-2017 Not Avai lable WBC Auto (Bld) 08:46-0400 (74046) Neutrophils Auto 2.6 10*3/uL (no code) 1.7 - 7 10*3/uL 7 Not Available #/vol (Bld) 08:46-0400 (73190) Neutrophils/100 55 % (no code) 40 - 60 % 06-13-2017 Not Av ailable WBC Auto (Bld) 08:46-0400 (80175) Platelets Auto 360 10*3/uL (no code) 150 - 450 06-13-2017 Not A vailable #/vol (Bld) 10*3/uL 08:46-0400 (75678) RBC Auto #/vol 4.27 10*6/uL (no code) 4.2 - 6.1 06-13-2017 Not Available (Bld) 10*6/uL 08:46-0400 (93243) WBC Auto #/vol 4.7 10*3/uL (no code) 3.5 - 10.5 06-13-2017 Not Available (Bld) 10*3/uL 08:46-0400 (12626) other on 2017-05-15 Albumin/Globulin 1.4 {ratio} (no code) 1 - 2.5 {ratio} 7 Not Available [Mass ratio] 07:51-0400 (30397) Erythrocyte 14.5 % (no code) 11.6 - 14.6 % 05-15-2017 Not Av ailable distribution 07:21-0400 (83183) width (RBC) [Ratio] Globulin (S) 3.1 g/dL (no code) 2 - 3.5 g/dL 05-15-2017 Not Av ailable [Mass/Vol] 07:51-0400 (86765) Immature 0.0 10*3/uL (no code) 0 - 0.2 10*3/uL 05-15-2017 Not Available granulocytes 07:21-0400 (65922) (Bld) [#/Vol] Immature 0 % (no code) 0 - 0.5 % 05-15-2017 Not Availabl e granulocytes/100 07:21-0400 (17271) WBC (Bld) MCHC (RBC) 31.9 g/dL (no code) 32 - 36 g/dL 05-15-2017 Not Avai lable [Mass/Vol] 07:21-0400 (05738) metabolic panel on 2017-05-15 Albumin 4.2 g/dL (no code) 3.4 - 5.4 g/dL 05-15-2017 Not Juliette ilable [Mass/Vol] 07:43-0400 (73041) ALP [Catalytic 119 U/L (H) 44 - 147 U/L 05-15-2017 Not Available activity/Vol] 07:51-0400 (20645) ALT [Catalytic 20 U/L (no code) 4 - 40 U/L 05-15-2017 Not Av ailable activity/Vol] 07:51-0400 (34561) AST [Catalytic 36 U/L (no code) 10 - 34 U/L 05-15-2017 Not A vailable activity/Vol] 07:51-0400 (10424) Bilirubin mg/dL (no code) 0.1 - 1.2 mg/dL 05-15-2017 Not Av ailable [Mass/Vol] 07:51-0400 (16431) Calcium 9.7 mg/dL (no code) 8.5 - 10.2 mg/dL 05-15-2017 Not A vailable [Mass/Vol] 07:51-0400 (42159) Chloride 94 mmol/L (L) 95 - 106 mmol/L 05-15-2017 Not Av ailable [Moles/Vol] 07:43-0400 (08575) CO2 [Moles/Vol] 20 mmol/L (no code) 23 - 29 mmol/L 05-15-2017 N ot Available 07:55-0400 (63911) Creatinine 0.49 mg/dL (L) 05-15-2017 Not Available [Mass/Vol] 07:43-0400 (19212) GFR/1.73 sq M 122 (no code) 90 - 120 05-15-2017 Not Avai lable predicted among mL/min/{1.73_m2} mL/min/{1.73_m2} 07:43-0400 (32392) blacks MDRD (S/P/Bld) [Vol rate/Area] GFR/1.73 sq M 106 (no code) 90 - 120 05-15-2017 Not Avai lable predicted among mL/min/{1.73_m2} mL/min/{1.73_m2} 07:43-0400 (05242) non-blacks MDRD (S/P/Bld) [Vol rate/Area] Glucose 87 mg/dL (no code) 60 - 125 mg/dL 05-15-2017 Not Juliette ilable [Mass/Vol] 07:51-0400 (08179) Potassium 4.3 mmol/L (no code) 3.7 - 5.2 mmol/L 05-15-2017 Not Available [Moles/Vol] 07:43-0400 (43338) Protein 7.3 g/dL (no code) 6.4 - 8.3 g/dL 05-15-2017 Not Juliette ilable [Mass/Vol] 07:51-0400 (80402) Sodium 133 mmol/L (L) 135 - 145 mmol/L 05-15-2017 Not Available [Moles/Vol] 07:43-0400 (43113) Urea nitrogen 17 mg/dL (no code) 7 - 20 mg/dL 05-15-2017 Not A vailable [Mass/Vol] 07:51-0400 (52999) Urea 35 mg/mg (H) 6 - 22 mg/mg 05-15-2017 Not Avail able nitrogen/Creatin 07:51-0400 (51885) ine [Mass ratio] hematology on 2017-05-15 Basophils (Bld) 0.0 10*3/uL (no code) 0 - 0.3 10*3/uL 05-15-2017 Not Available [#/Vol] 07:21-0400 (89535) Basophils/100 1 % (no code) 0.5 - 1 % 05-15-2017 Not Avai lable WBC (Bld) 07:21-0400 (29252) Eosinophils 0.1 10*3/uL (no code) 0.05 - 0.5 05-15-2017 Not Juliette ilable (Bld) [#/Vol] 10*3/uL 07:21-0400 (49100) Eosinophils/100 1 % (no code) 1 - 4 % 05-15-2017 Not Av ailable WBC (Bld) 07:21-0400 (54364) Hematocrit (Bld) 34.2 % (no code) 36.1 - 50.3 % 05-15-2017 N ot Available [Volume 07: (25464) fraction] Hemoglobin (Bld) 10.9 g/dL (L) 12.1 - 17.2 g/dL 05-15-2017 Not Available [Mass/Vol] 07: (95198) Lymphocytes 2.2 10*3/uL (no code) 0.9 - 2.9 05-15-2017 Not Avai lable (Bld) [#/Vol] 10*3/uL 07: (36460) Lymphocytes/100 36 % (no code) 20 - 40 % 05-15-2017 Not Av ailable WBC (Bld) 07: (90031) MCH (RBC) 29.3 pg (no code) 27 - 31 pg 05-15-2017 Not Availab le [Entitic mass] 07: (95599) MCV (RBC) 92 fL (no code) 80 - 100 fL 05-15-2017 Not Availa ble [Entitic vol] 07: (56669) Monocytes (Bld) 0.5 10*3/uL (no code) 0.3 - 0.9 05-15-2017 Not Available [#/Vol] 10*3/uL 07: (97635) Monocytes/100 8 % (no code) 2 - 8 % 05-15-2017 Not Avai lable WBC (Bld) 07: (59887) Neutrophils 3.2 10*3/uL (no code) 1.7 - 7 10*3/uL 05-15-2017 No t Available (Bld) [#/Vol] 07: (15561) Neutrophils/100 54 % (no code) 40 - 60 % 05-15-2017 Not Av ailable WBC (Bld) 07: (14395) Platelets (Bld) 411 10*3/uL (H) 150 - 450 05-15-2017 Not Available [#/Vol] 10*3/uL 07:0400 (38789) RBC (Bld) 3.72 10*6/uL (L) 4.2 - 6.1 05-15-2017 Not Avail able [#/Vol] 10*6/uL 07:21-0400 (56126) WBC (Bld) 6.0 10*3/uL (no code) 3.5 - 10.5 05-15-2017 Not Avail able [#/Vol] 10*3/uL 07:21-0400 (04054) urinalysis on 2017-05-08 Bacteria Note (no code) 05-08-2017 Not Available identified Cx 13:000400 (94131) Nom (U) thyroid on 2017-01-23 TSH Qn 1.740 (no code) 01-23-2017 Not Available 10:500400 (85525) other on 2017-01-23 25-Hydroxyvitami 35.7 (no code) 01-23-2017 Not Avail able n 11:530400 (88807) D2+25-Hydroxyvit parrish D3 [Mass/Vol] Albumin/Globulin 1.3 {ratio} (no code) 1 - 2.5 {ratio} 7 Not Available [Mass ratio] 09:07 (86147) Cobalamin 430 pg/mL (no code) 200 - 900 pg/mL 01-23-2017 Not Av ailable (Vitamin B12) 09:580 (68795) [Mass/Vol] Erythrocyte 14.2 % (no code) 11.6 - 14.6 % 01-23-2017 Not Av ailable distribution 08: (50174) width (RBC) [Ratio] Globulin (S) 3.6 g/dL (no code) 2 - 3.5 g/dL 01-23-2017 Not Av ailable [Mass/Vol] 09:07-399 (67462) Immature 0.0 10*3/uL (no code) 0 - 0.2 10*3/uL 01-23-2017 Not Available granulocytes 08: (61557) (Bld) [#/Vol] Immature 0 % (no code) 0 - 0.5 % 01-23-2017 Not Availabl e granulocytes/100 08: (10263) WBC (Bld) MCHC (RBC) 34.0 g/dL (no code) 32 - 36 g/dL 01-23-2017 Not Avai lable [Mass/Vol] 08: (41451) metabolic panel on 2017-01-23 Albumin 4.6 g/dL (no code) 3.4 - 5.4 g/dL 01-23-2017 Not Juliette ilable [Mass/Vol] 09: (57215) ALP [Catalytic 92 U/L (no code) 44 - 147 U/L 01-23-2017 Not Available activity/Vol] 09: (69136) ALT [Catalytic 14 U/L (no code) 4 - 40 U/L 01-23-2017 Not Av ailable activity/Vol] 09: (90012) AST [Catalytic 29 U/L (no code) 10 - 34 U/L 01-23-2017 Not A vailable activity/Vol] 09: (97027) Bilirubin 0.3 mg/dL (no code) 0.1 - 1.2 mg/dL 01-23-2017 Not Av ailable [Mass/Vol] 09: () Calcium 9.8 mg/dL (no code) 8.5 - 10.2 mg/dL 01-23-2017 Not A vailable [Mass/Vol] 09: (78763) Chloride 90 mmol/L (L) 95 - 106 mmol/L 01-23-2017 Not Av ailable [Moles/Vol] 09: (33392) CO2 [Moles/Vol] 25 mmol/L (no code) 23 - 29 mmol/L 01-23-2017 N ot Available 09: () Creatinine 0.60 mg/dL (no code) 01-23-2017 Not Available [Mass/Vol] 09: (29899) GFR/1.73 sq M 115 (no code) 90 - 120 01-23-2017 Not Avai lable predicted among mL/min/{1.73_m2} mL/min/{1.73_m2} 09: (02354) blacks MDRD (S/P/Bld) [Vol rate/Area] GFR/1.73 sq M 99 (no code) 90 - 120 01-23-2017 Not Avai lable predicted among mL/min/{1.73_m2} mL/min/{1.73_m2} 09: (64015) non-blacks MDRD (S/P/Bld) [Vol rate/Area] Glucose 83 mg/dL (no code) 60 - 125 mg/dL 01-23-2017 Not Juliette ilable [Mass/Vol] 09: (65252) Magnesium 2.0 mg/dL (no code) 1.7 - 2.2 mg/dL 01-23-2017 Not Av ailable [Mass/Vol] 09:35 (38686) Potassium 4.5 mmol/L (no code) 3.7 - 5.2 mmol/L 01-23-2017 Not Available [Moles/Vol] 09: (81305) Protein 8.2 g/dL (no code) 6.4 - 8.3 g/dL 01-23-2017 Not Juliette ilable [Mass/Vol] 09: (66586) Sodium 133 mmol/L (L) 135 - 145 mmol/L 01-23-2017 Not Available [Moles/Vol] 09: (63425) Urea nitrogen 12 mg/dL (no code) 7 - 20 mg/dL 01-23-2017 Not A vailable [Mass/Vol] 09: (09294) Urea 20 mg/mg (no code) 6 - 22 mg/mg 01-23-2017 Not Avail able nitrogen/Creatin 09: (17287) ine [Mass ratio] hematology on 2017-01-23 Basophils (Bld) 0.0 10*3/uL (no code) 0 - 0.3 10*3/uL 01-23-2017 Not Available [#/Vol] 08: (09531) Basophils/100 1 % (no code) 0.5 - 1 % 01-23-2017 Not Avai lable WBC (Bld) 08: (56244) Eosinophils 0.1 10*3/uL (no code) 0.05 - 0.5 01-23-2017 Not Juliette ilable (Bld) [#/Vol] 10*3/uL 08: (58073) Eosinophils/100 1 % (no code) 1 - 4 % 01-23-2017 Not Av ailable WBC (Bld) 08: (29224) Hematocrit (Bld) 37.4 % (no code) 36.1 - 50.3 % 01-23-2017 N ot Available [Volume 08: (29278) fraction] Hemoglobin (Bld) 12.7 g/dL (no code) 12.1 - 17.2 g/dL 01-23-2017 Not Available [Mass/Vol] 08:0400 (59206) Lymphocytes 1.6 10*3/uL (no code) 0.9 - 2.9 01-23-2017 Not Avai lable (Bld) [#/Vol] 10*3/uL 08:030400 (37042) Lymphocytes/100 38 % (no code) 20 - 40 % 01-23-2017 Not Av ailable WBC (Bld) 08:0400 (47969) MCH (RBC) 28.7 pg (no code) 27 - 31 pg 01-23-2017 Not Availab le [Entitic mass] 08: (10838) MCV (RBC) 84 fL (no code) 80 - 100 fL 01-23-2017 Not Availa ble [Entitic vol] 08:0400 (63736) Monocytes (Bld) 0.5 10*3/uL (no code) 0.3 - 0.9 01-23-2017 Not Available [#/Vol] 10*3/uL 08:03-0400 (24070) Monocytes/100 11 % (no code) 2 - 8 % 01-23-2017 Not Avai lable WBC (Bld) 08:0400 (07579) Neutrophils 2.0 10*3/uL (no code) 1.7 - 7 10*3/uL 01-23-2017 No t Available (Bld) [#/Vol] 08:03-0400 (16428) Neutrophils/100 49 % (no code) 40 - 60 % 01-23-2017 Not Av ailable WBC (Bld) 08:030400 (11440) Platelets (Bld) 321 10*3/uL (no code) 150 - 450 01-23-2017 Not Available [#/Vol] 10*3/uL 08:030400 (38191) RBC (Bld) 4.43 10*6/uL (no code) 4.2 - 6.1 01-23-2017 Not Avail able [#/Vol] 10*6/uL 08:03040 (35562) WBC (Bld) 4.2 10*3/uL (no code) 3.5 - 10.5 01-23-2017 Not Avail able [#/Vol] 10*3/uL 08: (72795) Vital Signs Vital Sign Value Interpretation Reference Date Time Care Prov ider Facility (Normalized) (Normalized) Range BMI (Body Mass 21.7 kg/m2 (no code) 15 - 25 kg/m2 11-23-2018 [facility] Index) 08:17-[address] ([address]) ( ) BMI (Body Mass 17.37 kg/m2 (no code) 15 - 25 kg/m2 10-15-2018 JOSETTE HENDERSON Community Index) 11:00-[address] [place] [address] (67452) BMI (Body Mass 17.75 kg/m2 (no code) 15 - 25 kg/m2 10-02-2018 [facility] Index) 10:40-[address] [place] [address] (97473) BMI (Body Mass 17.63 kg/m2 (no code) 15 - 25 kg/m2 08-03-2018 AKOSUA BENNETT Community Index) 11:20-[address] [place] [address] (17500) BMI (Body Mass 16.92 kg/m2 (no code) 15 - 25 kg/m2 05-05-2018 Jessica EATON Community Index) 15:40-[address] [place] [address] (83126) BMI (Body Mass 17.68 kg/m2 (no code) 15 - 25 kg/m2 02-03-2018 TA BLANKYA SHRUTHI Community Index) 11:40-[address] [place] [address] (59737) BMI (Body Mass 18.85 kg/m2 (no code) 15 - 25 kg/m2 12-12-2017 DOUG MCKEON Community Index) 13:30-[address] [place] [address] (19241) Body height 162.56 cm (no code) cm 05-27-2014 ESTELLA MADL Community 11:33-0400 [id number] [facility] ([id number]) Body height 162.56 cm (no code) cm 12-17-2013 Doctor [facility] 09:39-0500 Migration [facility] ([id number]) Body height 162.56 cm (no code) cm 07-01-2013 [facility] 16:48-0400 Migration [facility] ([id number]) Body height 162.56 cm (no code) cm Elie Spears MD [place] ([id number]) Body 97.1 [degF] (no code) 97.8 - 99.0 11-23-2018 Piter [facility] Temperature [degF] 10:32-0500 [facility] [address] [place] ([id number]) ( ) Body 97.9 [degF] (no code) 97.8 - 99.0 10-15-2018 JOSE KIN G Community Temperature [degF] 11:00-0500 [id number] [facility] ([id number]) Body 96.8 [degF] (no code) 97.8 - 99.0 10-02-2018 ESTELLA MAD L [facility] Temperature [degF] 10:40-0500 35336 [facility] ([id number]) Body 97.2 [degF] (no code) 97.8 - 99.0 08-03-2018 JOLANTA [facility] Temperature [degF] 11:20-[id number] [place] [address] ([id number]) Body 98.3 [degF] (no code) 97.8 - 99.0 05-05-2018 JOLANTA UMA CHAMBERLAINY [facility] Temperature [degF] 15:40-0400 [id number] [facility] ([id number]) Body 98.2 [degF] (no code) 97.8 - 99.0 02-03-2018 ESTELLA MAD L [facility] Temperature [degF] 11:40-0400 84378 [facility] ([id number]) Body 98.7 [degF] (no code) 97.8 - 99.0 12-12-2017 [facility] Temperature [degF] 13:30-0500 SHERIDAN [address] [facility] ([id number]) Body 97.6 [degF] (no code) 97.8 - 99.0 05-27-2014 [facility] temperature [degF] 11:33-0400 89115 [facility] ([id number]) Body 97.2 [degF] (no code) 97.8 - 99.0 04-27-2014 [facility] Temperature [degF] 14:44-0400 28493 [facility] ([id number]) Body 98 [degF] (no code) 97.8 - 99.0 12-17-2013 [facility] [degF] 09:39-0500 [facility] ([id number]) Body 97.3 [degF] (no code) 97.8 - 99.0 07-01-2013 [facility] temperature [degF] 16:48-0400 [facility] ([id number]) Body weight 48.26 kg (no code) kg 05-27-2014 [facility] 11:33-0400 56417 [facility] ([id number]) Body weight 47.77 kg (no code) kg 04-27-2014 [facility] 14:44-0400 [id number] [facility] ([id number]) Body weight 45.81 kg (no code) kg 12-17-2013 Doctor Com [facility]unity 09:39-0500 Migration [facility] ([id number]) Body weight 44.63 kg (no code) kg 07-01-2013 [facility] 16:48-0400 [facility] ([id number]) Body weight 2021.198 (no code) Elie morrow MD [place] ([id number]) Blood Pressure 135/ (no code) Systolic: 90 - 11-23-2018 [employer] SPEARS 62mm[Hg] 120 mm[Hg] 10:32-[address] ([id number]) (Work Phone: Diastolic: 60 ) - 80 mm[Hg] Height 162.56 cm (no code) cm 11-23-2018 Piter [facility] 08:17-[address] ([id number]) ( ) Height 162.56 cm (no code) cm 10-15-2018 JOSE BEATRIZ Co mmunity 11:00-[address] [place] [address] ([id number]) Height 162.56 cm (no code) cm 10-02-2018 ESTELLA MADL [facility]munity 10:40-[address] [place] [address] ([id number]) Height 162.56 cm (no code) cm 08-03-2018 JOLANTA [facility] 11:20-[address] ([id number]) Height 162.56 cm (no code) cm 05-05-2018 [facility] 15:40-[address] [place] [address] ([id number]) Height 162.56 cm (no code) cm 02-03-2018 ESTELLA MADL Co mmunity 11:40-[address] [place] [address] ([id number]) Height 162.56 cm (no code) cm 12-12-2017 MARLA MCKEON [facility] 13:30-0500 [place] [address] [place] [address] ([id number]) Height 162.56 cm (no code) cm 04-27-2014 ESTELLA MADL [facility]ity 14:44-[address] [place] [address] ([id number]) Pulse (Heart 44 /min (no code) 60 - 100 /min 11-23-2018 [facility] Rate) 10:38-[address] ([id number]) ( ) Pulse Oximetry 100 % (no code) 95 - 100 % 11-23-2018 [facility] 10:32-[address] ([id number]) ( ) Respiratory 20 /min (no code) 12 - 20 /min 11-23-2018 [facility] Rate 10:32-0500 [facility] [address] [place] ([id number]) ( ) Weight 57.3 kg (no code) kg 11-23-2018 [facility] 08:17-[address] ([id number]) ( ) Weight 45.9 kg (no code) kg 10-15-2018 JOSE BEATRIZ Com munity 11:00-0500 [id number] [facility] ([id number]) Weight 46.9 kg (no code) kg 10-02-2018 ESTELLA MADL Com munity 10:40-0500 [id number] [facility] ([id number]) Weight 46.58 kg (no code) kg 08-03-2018 JOLANTA Bhat ity 11:20-[address] [place] [address] ([id number]) Weight 44.72 kg (no code) kg 05-05-2018 JOLANTA EATON C ommunity 15:40-[address] [place] [address] ([id number]) Weight 46.72 kg (no code) kg 02-03-2018 ESTELLA MADL Com munity 11:40-[address] [place] [address] ([id number]) Weight 49.81 kg (no code) kg 12-12-2017 MARLA Vlilalobos nity 13:30-[address] [place] [address] ([id number]) Interventions No Information Plan of Treatment Normalized Care Care Detail Care Activity Date Care Provider F acility Activity (IPT) Internal PCP [facility] 10-15-2018 ESTELLA MADL [phone] [facility] ([id number]) Patient Education [facility] no information [facility] [address] [place] ([id number]) (Wor k ) no information no information no information ESTELLA MADL [address] [facility] ([id number]) Goals Patient Goal Desired Goal no information no information Social History Normalized Code Original Code Date Value Tobacco smoking status Tobacco smoking status no information Unknown if ever smoked WVIS WVIS no information no information 11-23-2018 current no information no information 11-23-2018 a few times a m [facility] no information no information 11-23-2018 does not use Sex Assigned At Sex Assigned At no information F emale Functional Status The data below is from [...] Admission to day no information (no phone) [facility] - surgery Work Phone: 11-23-2018 06-09-2018 Admission to day no information ISABELLE Wright PRETTY Work no organization name - surgery Phone: 06-09-2018 05-11-2018 [facility] Hypo-osmolality and JOLANTA HAIRSTON (no [facility] - hyponatremia phone) JOLANTA Hendrix (no nikita ne) 05-11-2018 (no phone) JOLANTA Hendrix (no phone) 05-11-2018 04-22-2020 Emergency department no information TWIN DOWNS MD [facility] [address] - patient visit (no phone) [facility] 04-22-2020 JANNY RECINOS (no phone) (no phone) TWIN ARRIAZA MD (no phone) [facility] JANNY RECINOS (no phone) 03-05-2020 Emergency department no information ZENY SAM [facility] [address] - patient visit (no phone) [facility] 03-05-2020 (no phone) 02-19-2020 Emergency department no information TWIN DOWNS MD [facility] [address] - patient visit (no phone) MIKE Luna [facility] 02-19-2020 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) MIKE Luna (no phone) KVNGMarycruz [facility] (no phone) MIKE Luna [facility] 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) 03-02-2020 Follow-up encounter no information JOSE HENDERSON (no phone) [facility] (no phone) NEGATED Patient encounter no information no name no or ganization name 06-09-2018 - 06-09-2018 06-02-2018 Patient encounter no information ISABELLE OLSEN Work no organization name 05-05-2018 Patient encounter no information no name no or ganization name NEGATED Patient encounter no information no name no or ganization name 05-05-2018 04-30-2018 Patient encounter no information no name no or ganization name 02-03-2018 Patient encounter no information no name no or ganization name 01-23-2018 Patient encounter no information no name no or ganization name - 01-23-2018 01-21-2018 Patient encounter no information no name no or ganization name 01-19-2018 Patient encounter no information no name no or ganization name 01-16-2018 Patient encounter no information no name no or ganization name 01-14-2018 Patient encounter no information no name no or ganization name 01-12-2018 Patient encounter no information no name no or ganization name 01-09-2018 Patient encounter no information no name no or ganization name 01-07-2018 Patient encounter no information no name no or ganization name 01-05-2018 Patient encounter no information no name no or ganization name 01-02-2018 Patient encounter no information no name no or ganization name 12-31-2017 Patient encounter no information no name no or ganization name 12-30-2017 Patient encounter no information no name no or ganization name 12-26-2017 Patient encounter no information no name no or ganization name 12-12-2017 Patient encounter no information no name no or ganization name 12-04-2017 Patient encounter no information no name no or ganization name 08-21-2017 Patient encounter no information no name no or ganization name - 08-21-2017 NEGATED Patient encounter no information no name no or ganization name 08-19-2017 NEGATED Patient encounter no information no name no or ganization name 08-14-2017 08-12-2017 Patient encounter no information no name no or ganization name 08-10-2017 Patient encounter no information no name no or ganization name 08-06-2017 Patient encounter no information no name no or ganization name - 08-09-2017 01-22-2017 Patient encounter no information no name no or ganization name 07-30-2013 Patient encounter no information no name no or ganization name 04-20-2013 Patient encounter no information no name no or ganization name 03-31-2013 Patient encounter no information no name no or ganization name 03-12-2013 Patient encounter no information no name no or ganization name - 03-16-2013 12-02-2012 Patient encounter no information no name no or ganization name - 12-28-2012 Patient encounter no information (no phone) [facility] (no phone) 04-10-2020 Patient encounter no information JOSE D BEATRIZ (no [facility] phone) [facility] (no phone) 04-04-2020 Patient encounter no information (no phone) [facility] (no phone) 03-16-2020 Patient encounter no information JOSE Blanca HENDERSON WINE MANAGER (no [facility] [address] procedure phone) [facility] (no phone) 03-13-2020 Patient encounter no information (no phone) [facility] (no phone) 03-10-2020 Patient encounter no information (no phone) [facility] (no phone) 03-05-2020 Patient encounter no information ZENY KWOK NN [facility] [address] [facility] (no phone) [facility] (no phone) 03-02-2020 Patient encounter no information (no phone) JOSE Rios [facility] procedure [place] (no phone) (no [facility] st phone) [place] (no phone) 02-19-2020 Patient encounter no information MIKE NEWBY (n o [facility] [address] procedure phone) [facility] (no phone) 12-16-2019 Patient encounter no information (no phone) (no nikita ne) [facility] - procedure [facility] Breast 12-16-2019 Center (no phone) [email or web address]. (no phone) 12-16-2019 Patient encounter no information Piter BUCK V (no [facility] - procedure phone) Piter Dupree (no nikita ne) 12-16-2019 V (no phone) 11-02-2019 Patient encounter no information no name no or ganization name procedure 09-28-2019 Patient encounter no information no name no or ganization name procedure 07-27-2019 Patient encounter no information no name no or ganization name procedure 07-27-2019 Patient encounter no information no name no or ganization name procedure 04-13-2019 Patient encounter no information no name no or ganization name procedure 04-13-2019 Patient encounter no information no name no or ganization name procedure 12-01-2018 Patient encounter no information (no phone) (no nikita ne) [facility] - procedure Work Phone: 12-01-2018 11-23-2018 Patient encounter no information no name no or ganization name - procedure 11-23-2018 10-15-2018 Patient encounter no information no name no or ganization name procedure 10-02-2018 Patient encounter no information no name no or ganization name procedure 09-24-2018 Patient encounter no information no name no or ganization name procedure 08-04-2017 Patient encounter no information no name no or ganization name procedure 08-01-2017 Patient encounter no information no name no or ganization name procedure 07-30-2017 Patient encounter no information no name no or ganization name procedure 04-11-2017 Patient encounter no information no name no or ganization name - procedure 04-15-2017 06-20-2016 no information Encounter for general no name n o organization name adult medical examination without abnormal findings no information Dental examination no name no organiza tion name no information Encounter for other no name no organiz ation name preprocedural examination no information Encounter for no name no organization name preprocedural laboratory examination Medical Equipment The data below is from unstructured sourcesNo Medical Equipment Information availableNo Medical Equipment Information availableNo Medical Equipment Information available Payers Normalized Payer Value Private Health Insurance [id number] ([id number]) Self-pay no information Unknown [id number]) Evaluation note Note Type Note Facility Evaluation No Assessments Information Available [facility] ([id number]) (Work Phone: ) Assessments and Plan Title: Author: Date: CRMMP/Wellness Visit Piter Dupree MD 06/20/16 Impression and Plan Diagnosis Seborrheic keratoses ([id number]-KM L82.1, Discharge, Medical). Right hand pain ([id number] M79.641, Discharge, Medical). Inclusion cyst ([id number] L72.0, Discharge, Medical). Adenomatous polyps ([id number]-ZG D36.9, Discharge, Medical). Title: CRMMP Author: Date: [...] 0 04/03/17 2:22pm Health Care Power of Global Logistics Analyst No 04/03/17 2:22pm Organ Donor Yes 04/03/17 2:22pm Resuscitation Status Full Code 04/03/17 2:22pm Directive Response Recor ded Date/Time Advance Directives No 3:50pm Health Care Power of Global Logistics Analyst No 02/09/15 3:50pm Organ Donor Yes 05/16/12 2:50am Resuscitation Status Full Code 02/09/15 3:50pm Directive Response Recor ded Date Advance Directives Y 05/21 2:50am Organ Donor Y 05/16/12 2 :50am Directive Response Recor ded Date/Time Advance Directives Yes 0 04/15/17 12:26pm Health Care Power of Global Logistics Analyst No 04/15/17 12:26pm Organ Donor Yes 04/15/17 12:26pm Resuscitation Status DNR-Pt Request 04/15/17 12:26pm Directive Response Recor ded Date/Time Advance Directives Yes 0 04/15/17 12:26pm Health Care Power of Global Logistics Analyst No 04/15/17 12:26pm Organ Donor Yes 04/15/17 12:26pm Directive Response Recor ded Date/Time Advance Directives Yes 0 06/09/18 7:10am Health Care Power of Global Logistics Analyst No 06/09/18 7:10am Organ Donor Yes 06/09/18 7:10am Resuscitation Status Full Code 06/09/18 7:10am Advance Directive Response Recorded Date/Time Advance Directives Yes Devonte torres 2018 7:32am Advance Directives on File No November 23, 2018 7:32am Health Care Proxy No Ger ortez 2018 7:32am Living Will No November 102018 7:32am Discharge Instructions Query Response Comment Date/Time Diet As Tolerated 11/23/2018 09:[address] today 11/23/2018 09:07 Wound Care N/A 11/23/2018 09:07 Expected Signs/Symptoms None 11/23/2018 09:07 Notify Physician If 11/23/2018 09:07 During Business Hours Call [phone] 11/23/2018 09:07 After Business Hours Call ([facility]) 11/23/2018 09:07 Pending Lab/Results No Pending [...] This clinical document has been generated using [employer] software that has been certified by the Office of the National Coordinator for Health Information Technology (ONC 15.99.04.3023.Diam.31.00.0.165511) and the National Committee for Columnist/Commentator (NCQA, as an eMeasure certified technology). FOR [...] BASED ON T HE PRIMARY CLINICAL RECORDS. [employer] La[employer]. provides no warranty or guara ntee of the accuracy or completeness of information in this document.The followi information is based on time limited clinical [...] RNlabsRequests return callControlled Med RefillUTI symptoms started [place] tra erRNEstablish Care Braulio DALTONEOIOA-PvdUSQ-DlaKYE-[facility] IdabelLAB
--- OUTSIDE RECORDS SUMMARY | 2020-04-30 12:11 | XMS REPORT ---
Author Author Sherly SOTOMAYOR Organization [facility] Address [address] [place] [address] Care Team Providers [employer] Name Role Phone ESTELLA SOTOMAYOR Unavailable PROBLEMS Type Condition ICD9-CM Code KET48-XD Code Onset Dates Condition S tatus SNOMED Code Problem Hypercholesteremia E78.00 Active 1 9976036 Problem Hyponatremia E87.1 Active 5422711 8 Problem Depression F32.9 Active 54306613 Problem Diverticulitis K57.92 Active 37670 6006 Problem Degenerative scoliosis M41.9 Active [id number] Problem Anxiety F41.9 Active 25797056 Problem Vitamin D deficiency E55.9 Active 75313618 Problem History of spinal fusion for scoliosis Z98.1 Active 695122901 Problem History of hypertension Z86.79 Active [id number] ALLERGIES No Information ENCOUNTERS Encounter Location Date Diagnosis [facility] [address] [facility] [id number] [address] [place] [address] Feb, [facility] [address] [facility] [id number] [address] [place] [address] Feb, [facility] [address] [facility] [id number] [address] [place] [address] Feb, Pneumonia of right lower lob e due to infectious organism J18.9 and Fever R50.9 [facility] [address] [facility] [id number] [address] [place] [address] Feb, [facility] [address] [facility] [id number] [address] [place] [address] Oct, Degenerative scoliosis M41.9 and Anxiety F41.9 [facility] [address] [facility] [id number] [address] [place] [address] Oct, [facility] [address] [place] [id number] [address] [place] [address] Jul, Hypercholesteremia E78.00 ; Depression F32.9 ; Vitamin D deficiency E55.9 ; Anxiety F41.9 and History of spinal fusion for scoliosis Z98.1 [facility] [address] [address] Apr, Anxiety F41.9 ; History of s arabella fusion for scoliosis Z98.1 and Long-term use of high-risk medication Z79.899 [place] [address] [address] Nov, Depression F32.9 [place] [address] [address] Oct, Depression F32.9 ; Anxiety F 41.9 ; History of spinal fusion for scoliosis Z98.1 and History of hypertension Z86.79 [facility] [address] [address] Sep, Dysuria R30.0 and Acute cyst itis with hematuria N30.01 [place] [address] [address] Aug, [facility] [address] [address] Jul, Depression F32.9 and Diverti culitis K57.92 [place] [address] [place] [id number] [address] [place] [address] May, Hyponatremia E87.1 [place] [address] [address] May, [facility] [address] [address] Apr, Vasovagal syncope R55 ; Diar jose of presumed infectious origin R19.7 ; Black eye of left side, initial encounter S00.12XA ; Skin tear of left forearm without complication, initial encounter S51.812A ; Dehydration E86.0 ; Vitamin D deficiency E55.9 and Weight loss R63.4 [place] [address] [address] Apr, Vitamin D deficiency E55.9 ; History of spinal fusion for scoliosis Z98.1 ; Anxiety F41.9 and Depression F32.9 [place] [address] [address] Jan, Essential hypertension I10 ; Depression F32.9 ; Anxiety F41.9 ; History of hypertension Z86.79 ; History of anemia Z86.2 and Hyponatremia E87.1 [place] [address] [address] Dec, Hyponatremia E87.1 [facility] [address] [address] Dec, Fever, unspecified fever cau se R50.9 and Acute nasopharyngitis J00 [place] [address] [address] Nov, Hyponatremia E87.1 [place] [address] [address] Oct, Essential hypertension I10 ; Long-term use of high-risk medication Z79.899 and Vitamin D deficiency E55.9 [place] [address] [address] Oct, Essential hypertension I10 ; Depression F32.9 ; Anxiety F41.9 ; Long-term use of high-risk medication Z79.899 and Vitamin D deficiency E55.9 [place] [address] [address] Jun, History of spinal fusion for scoliosis Z98.1 ; Postoperative anemia D64.9 ; Essential hypertension I10 ; Depression F32.9 and Anxiety F41.9 [place] [address] [place] [id number] [place] [address] Jun, History of spinal fusion for scoliosis Z98.1 ; Postoperative anemia D64.9 ; Essential hypertension I10 ; Depression F32.9 and Anxiety F41.9 [facility] [address] [id number] [address] [place] [address] May, History of spinal fusion for scoliosis Z98.1 ; Postoperative anemia D64.9 ; Essential hypertension I10 ; Depression F32.9 and Anxiety F41.9 [facility] [address] [id number] [address] [place] [address] May, [facility] [address] [facility] [id number] [address] [place] [address] Apr, Dysuria R30.0 and Acute cyst itis with hematuria N30.01 [facility] [address] [facility] [id number] [address] [place] [address] Apr, [facility] [address] [facility] [id number] [address] [place] [address] Apr, [facility] [address] [id number] [address] [place] [address] Apr, [facility] [address] [facility] [id number] [address] [place] [address] Apr, Anxiety F41.9 [facility] [address] [facility] [id number] [address] [place] [address] Feb, Anxiety F41.9 [facility] [address] [id number] [address] [place] [address] Jan, [facility] [address] [facility] [id number] [address] [place] [address] Jan, Severe scoliosis M41.9 [facility] [address] [id number] [address] [place] [address] Jan, [facility] [address] [facility] [id number] [address] [place] [address] 15 Jan, 2017 Tremor of unknown origin R25 .1 ; Headache, unspecified headache type R51 ; Balance problem R26.89 ; Degenerative scoliosis M41.9 ; Pain in right hip M25.551 and Pain in left hip M25.552 [facility] [address] [id number] [address] [place] [address] 14 Jan, 2017 Tremor of unknown origin R25 .1 ; Headache, unspecified headache type R51 ; Balance problem R26.89 ; Degenerative scoliosis M41.9 ; Pain in right hip M25.551 and Pain in left hip M25.552 [place] [address] [id number] [address] [place] [address] 10 Jan, 2017 [place] [address] [facility] [id number] [address] [place] [address] Oct, Essential hypertension I10 ; Vitamin D deficiency E55.9 ; Depression F32.9 ; Anxiety F41.9 ; Lumbar pain M54.5 and Screening for colon cancer Z12.11 [place] [address] [id number] [address] [place] [address] Aug, [place] [address] [facility] [id number] [address] [place] [address] Dec, [place] [address] [facility] [id number] [address] [place] [address] Dec, Hammertoe M20.40 [place] [address] [facility] [id number] [address] [place] [address] Oct, [place] [address] [id number] [address] [place] [address] Oct, Essential hypertension I10 ; Vitamin D deficiency E55.9 ; Depression F32.9 ; Anxiety F41.9 ; Lumbar pain M54.5 and Hammer toe of left foot M20.42 [place] [address] [facility] [id number] [address] [place] [address] Sep, Acute upper respiratory infe ction, unspecified J06.9 and Other viral agents as the cause of diseases classified elsewhere B97.89 [facility] [address] [id number] [address] [place] [id number] Apr, Dental examination V72.2 [facility] [address] [id number] [address] [place] [id number] Apr, Dental examination V72.2 [facility] [address] [id number] [address] [place] [address] [id number] Apr, Dental examination V72.2 [facility] [address] [id number] [address] [place] [id number] Apr, Dental examination V72.2 [facility] [address] [id number] [address] [place] [id number] March, Dental examination V72.2 [facility] [address] [id number] [address] [place] [address] March, [facility] [address] [id number] [address] [place] [phone] Feb, [facility] [address] [id number] [address] [place] [address] Feb, [facility] [address] [id number] [address] [place] [phone] Oct, [facility] [address] [id number] [address] [place] [phone] Oct, [facility] [address] [id number] [address] [place] [phone] Sep, [facility] [address] [id number] [address] [place] [phone] Sep, [facility] [address] [id number] [address] [place] [address] Sep, [facility] [address] [id number] [address] [place] [phone] Sep, [facility] [address] [id number] [address] [place] [address], [place] [address] Aug, [facility] [address] [id number] [address] [place] [address], [place] [address] Aug, [facility] [address] [id number] [address] [place] [address], [place] [address] Jul, [facility] [address] [id number] [address] [place] [address], [place] [address] Jul, [facility] [address] [id number] [address] [place] [address], [place] [address] Jun, [facility] [address] [id number] [address] [place] [address], [place] [address] Jun, [facility] [address] [id number] [address] [place] [address], [place] [address] May, [facility] [address] [id number] [address] [place] [address], [place] [address] May, [facility] [address] [id number] [address] [place] [address], [place] [address] May, [facility] [address] [id number] [address] [place] [address], [place] [address] May, [facility] [address] [id number] [address] [place] [address], [place] [address] May, [facility] [address] [id number] [address] [place] [address], [place] [address] May, [facility] [address] [id number] [address] [place] [address], [place] [address] Apr, [facility] [address] [id number] [address] [place] [address], [place] [address] Apr, [facility] [address] [id number] [address] [place] [address], [place] [address] March, [facility] [address] [id number] [address] [place] [address], [place] [address] March, [facility] [address] [id number] [address] [place] [address], [place] [address] March, [facility] [address] [id number] [address] [place] [address], [place] [address] March, [facility] [address] [id number] [address] [place] [address], [place] [address] Jan, [facility] [address] [id number] [address] [place] [address], [place] [address] Jan, [facility] [address] [id number] [address] [place] [address], [place] [address] Dec, [facility] [address] [id number] [address] [place] [address], [place] [address] Dec, [facility] [address] [id number] [address] [place] [address], [place] [address] Nov, [facility] [address] [id number] [address] [place] [address], [place] [address] Nov, [facility] [address] [id number] [address] [place] [address], [place] [address] Nov, [facility] [address] [id number] [address] [place] [address], [place] [address] Nov, [facility] [address] [id number] [address] [place] [address], [place] [address] Nov, [facility] [address] [id number] [address] [place] [address], [place] [address] Nov, [facility] [address] [id number] [address] [place] [address], [place] [address] Oct, [facility] [address] [id number] [address] [place] [address], [place] [address] Oct, [facility] [address] [id number] [address] [place] [address], [place] [address] Oct, [facility] [address] [id number] [address] [place] [address], [place] [address] Oct, [facility] [address] [id number] [address] [place] [address], [place] [address] Sep, [facility] [address] [id number] [address] [place] [address], [place] [address] Sep, [facility] [address] [id number] [address] [place] [address], [place] [address] Sep, [facility] [address] [id number] [address] [place] [address], [place] [address] Sep, [facility] [address] [id number] [address] [place] [address], [place] [address] Aug, [facility] [address] [id number] [address] [place] [address], [place] [address] Aug, [facility] [address] [id number] [address] [place] [address], [place] [address] Aug, [facility] [address] [id number] [address] [place] [address], [place] [address] Aug, [facility] [address] [id number] [address] [place] [address], [place] [address] Jul, [facility] [address] [id number] [address] [place] [address], [place] [address] Jun, [facility] [address] [id number] [address] [place] [address], [place] [address] Jun, [facility] [address] [id number] [address] [place] [address], [place] [address] Jun, [facility] [address] [id number] [address] [place] [address], [place] [address] Jun, [facility] [address] [id number] [address] [place] [address], [place] [address] Jun, [facility] [address] [id number] [address] [place] [address], [place] [address] May, [facility] [address] [id number] [address] [place] [address], [place] [address] Apr, [facility] [address] [id number] [address] [place] [address], [place] [address] Apr, [facility] [address] [id number] [address] [place] [address], [place] [address] March, [facility] [address] [id number] [address] [place] [address], [place] [address] March, [facility] [address] [id number] [address] [place] [address], [place] [address] March, [facility] [address] [id number] [address] [place] [address], [place] [address] March, [facility] [address] [id number] [address] [place] [address], [place] [address] March, [facility] [address] [id number] [address] [place] [address], [place] [address] Feb, [facility] [address] [id number] [address] [place] [address], [place] [address] Feb, [facility] [address] [id number] [address] [place] [address], [place] [address] Jan, [facility] [address] [id number] [address] [place] [address], [place] [address] Jan, [facility] [address] [id number] [address] [place] [address], [place] [address] Jan, [facility] [address] [id number] [address] [place] [address], [place] [address] Jan, [facility] [address] [id number] [address] [place] [address], [place] [address] 15 Jan, 2013 [facility] [address] [id number] [address] [place] [address], [place] [address] 14 Jan, 2013 [facility] [address] [id number] [address] [place] [address], [place] [address] 14 Jan, 2013 [facility] [address] [id number] [address] [place] [address] Jan, [facility] [address] [id number] [address] [place] [address] 26 Dec, 2012 [facility] [address] [id number] [address] [place] [address] 18 Dec, 2012 [facility] [address] [id number] [address] [place] [address] Dec, [facility] [address] [id number] [address] [place] [address] 15 Dec, 2012 [facility] [address] [id number] [address] [place] [address] 14 Dec, 2012 [facility] [address] [id number] [address] [place] [address] Dec, [facility] [address] [id number] [address] [place] [address] Dec, [facility] [address] [id number] [address] [place] [address] 05 Dec, 2012 [facility] [address] [id number] [address] [place] [address] Nov, [facility] [address] [facility] [id number] [address] [place] [address] Nov, [facility] [address] [id number] [address] [place] [address] Nov, [facility] [address] [id number] [address] [place] [address] Nov, IMMUNIZATIONS No Known Immunizations SOCIAL HISTORY [...]
--- OUTSIDE RECORDS SUMMARY | 2020-04-30 12:11 | XMS REPORT ---
Author Author Sherly Durand Doctor Organization [facility] Address Unknown Phone Unavailable Care Team Providers Care Nanotechnician Name Role Phone Migration, Doctor Unavailable Unavailable PROBLEMS Type Condition ICD9-CM Code [id number]-TH Code Onset Dates Condition S tatus SNOMED Code Problem Depression F32.9 Active 50584909 Problem Anxiety F41.9 Active 06662271 Problem Vitamin D deficiency E55.9 Active 70175275 Problem Frequent falls R29.6 Active 67068 2001 Problem Hyponatremia E87.1 Active 7943703 8 Problem Essential tremor G25.0 Active 609 288548 Problem Hypercholesteremia E78.00 Active 1 6010580 Problem History of spinal fusion for scoliosis Z98.1 Active 856248754 Problem History of hypertension Z86.79 Active 648620602 Problem Diverticulitis K57.92 Active 46478 6006 Problem Degenerative scoliosis M41.9 Active [id number] ALLERGIES No Information ENCOUNTERS Encounter Location Date Diagnosis [facility] [address] [place] [address] 08 M 2019 Essential tremor G25.0 ; Frequent falls R29.6 and Rib pain R07.81 [place] [address] [place] [id number] [place] [address] March, Hyponatremia E87.1 and Low i harjeet E61.1 [place] [address] [place] [address] March, Contusion of rib on right si de, subsequent encounter S20.211D and Chest wall pain R07.89 [place] [address] [place] [id number] [address] [place] [address] March, Low hemoglobin D64.9 and [place]co quent falls R29.6 [place] [address] [place] [id number] [address] [place] [address] March, Low hemoglobin D64.9 ; Essen tial tremor G25.0 and Frequent falls R29.6 [place] [address] [place] [address] Feb, [place] [address] [place] [address] Feb, Pneumonia of right lower lob e due to infectious organism J18.9 and Fever R50.9 [place] [address] [address] Feb, [place] [address] [place] [address] Oct, Degenerative scoliosis M41.9 and Anxiety F41.9 [place] [address] [address] Oct, [place] [address] [address] Jul, Hypercholesteremia E78.00 ; Depression F32.9 ; Vitamin D deficiency E55.9 ; Anxiety F41.9 and History of spinal fusion for scoliosis Z98.1 [place] [address] [address] Apr, Anxiety F41.9 ; History of s arabella fusion for scoliosis Z98.1 and Long-term use of high-risk medication Z79.899 [place] [address] [address] Nov, Depression F32.9 [place] [address] [address] Oct, Depression F32.9 ; Anxiety F 41.9 ; History of spinal fusion for scoliosis Z98.1 and History of hypertension Z86.79 [facility] [address] [place] [id number] [address] [place] [address] Sep, Dysuria R30.0 and Acute cyst itis with hematuria N30.01 [place] [address] [address] Aug, [place] [address] [address] Jul, Depression F32.9 and Diverti culitis K57.92 [place] [address] [address] May, Hyponatremia E87.1 [place] [address] [address] May, [place] [address] [address] Apr, Vasovagal syncope R55 ; Diar jose of presumed infectious origin R19.7 ; Black eye of left side, initial encounter S00.12XA ; Skin tear of left forearm without complication, initial encounter S51.812A ; Dehydration E86.0 ; Vitamin D deficiency E55.9 and Weight loss R63.4 [place] [address] [address] Apr, Vitamin D deficiency E55.9 ; History of spinal fusion for scoliosis Z98.1 ; Anxiety F41.9 and Depression F32.9 [place] [address] [address] Jan, Essential hypertension I10 ; Depression F32.9 ; Anxiety F41.9 ; History of hypertension Z86.79 ; History of anemia Z86.2 and Hyponatremia E87.1 [facility] [address] [address] Dec, Hyponatremia E87.1 [facility] [address] [address] Dec, Fever, unspecified fever cau se R50.9 and Acute nasopharyngitis J00 [place] [address] [address] Nov, Hyponatremia E87.1 [facility] [address] [facility] [id number] [address] [place] [address] Oct, Essential hypertension I10 ; Long-term use of high-risk medication Z79.899 and Vitamin D deficiency E55.9 [facility] [address] [facility] [id number] [address] [place] [address] Oct, Essential hypertension I10 ; Depression F32.9 ; Anxiety F41.9 ; Long-term use of high-risk medication Z79.899 and Vitamin D deficiency E55.9 [place] [address] [facility] [id number] [address] [place] [address] Jun, History of spinal fusion for scoliosis Z98.1 ; Postoperative anemia D64.9 ; Essential hypertension I10 ; Depression F32.9 and Anxiety F41.9 [place] [address] [place] [id number] [place] [address] Jun, History of spinal fusion for scoliosis Z98.1 ; Postoperative anemia D64.9 ; Essential hypertension I10 ; Depression F32.9 and Anxiety F41.9 [place] [address] [address] May, History of spinal fusion for scoliosis Z98.1 ; Postoperative anemia D64.9 ; Essential hypertension I10 ; Depression F32.9 and Anxiety F41.9 [place] [address] [place] [id number] [address] [place] [address] May, [facility] [address] [facility] [id number] [address] [place] [address] Apr, Dysuria R30.0 and Acute cyst itis with hematuria N30.01 [facility] [address] [place] [id number] [address] [place] [address] Apr, [facility] [address] [place] [id number] [address] [place] [address] Apr, [facility] [address] [place] [id number] [place] [address] Apr, [facility] [address] [id number] [address] [place] [address] Apr, Anxiety F41.9 [facility] [address] [id number] [address] [place] [address] Feb, Anxiety F41.9 [facility] [address] [id number] [address] [place] [address] Jan, [facility] [address] [id number] [address] [place] [address] Jan, Severe scoliosis M41.9 [place] [address] [facility] [id number] [address] [place] [address] Jan, [place] [address] [facility] [id number] [address] [place] [address] Jan, Tremor of unknown origin R25 .1 ; Headache, unspecified headache type R51 ; Balance problem R26.89 ; Degenerative scoliosis M41.9 ; Pain in right hip M25.551 and Pain in left hip M25.552 [place] [address] [facility] [id number] [address] [place] [address] Jan, Tremor of unknown origin R25 .1 ; Headache, unspecified headache type R51 ; Balance problem R26.89 ; Degenerative scoliosis M41.9 ; Pain in right hip M25.551 and Pain in left hip M25.552 [place] [address] [facility] [id number] [address] [place] [address] Jan, [facility] [address] [facility] [id number] [address] [place] [address] Oct, Essential hypertension I10 ; Vitamin D deficiency E55.9 ; Depression F32.9 ; Anxiety F41.9 ; Lumbar pain M54.5 and Screening for colon cancer Z12.11 [facility] [address] [facility] [id number] [address] [place] [address] Aug, [place] [address] [place] [id number] [address] [place] [address] Dec, [facility] [address] [facility] [id number] [address] [place] [address] Dec, Hammertoe M20.40 [facility] [address] [place] [id number] [place] [address] Oct, [facility] [address] [address] Oct, Essential hypertension I10 ; Vitamin D deficiency E55.9 ; Depression F32.9 ; Anxiety F41.9 ; Lumbar pain M54.5 and Hammer toe of left foot M20.42 [facility] [address] [address] Sep, Acute upper respiratory infe ction, unspecified J06.9 and Other viral agents as the cause of diseases classified elsewhere B97.89 [facility] [address] [place] [id number] Apr, Dental examination V72.2 [facility] [address] [place] [id number] Apr, Dental examination V72.2 [facility] [address] [place] [id number] Apr, Dental examination V72.2 [facility] [address] [place] [address] [id number] Apr, Dental examination V72.2 [facility] [address] [id number] [place] [id number] March, Dental examination V72.2 [facility] [address] [place] [id number] [address] [place] [address] March, [facility] [address] [place] [id number] [address] [place] [address] Feb, [facility] [address] [address] Feb, [facility] [address] [id number] [address] [place] [address], [place] [address] Oct, [facility] [address] [id number] [address] [place] [address], [place] [address] Oct, [facility] [address] [id number] [address] [place] [address], [place] [address] Sep, [facility] [address] [id number] [address] [place] [address], [place] [address] Sep, [facility] [address] [id number] [address] [place] [address], [place] [address] Sep, [facility] [address] [id number] [address] [place] [address], [place] [address] Sep, [facility] [address] [id number] [address] [place] [address], [place] [address] Aug, [facility] [address] [id number] [address] [place] [address], [place] [address] Aug, [facility] [address] [id number] [address] [place] [address], [place] [address] Jul, [facility] [address] [id number] [address] [place] [address], [place] [address] Jul, [facility] [address] [id number] [address] [place] [address], [place] [address] Jun, [facility] [address] [id number] [address] [place] [address], [place] [address] Jun, [facility] [address] [id number] [address] [place] [address], [place] [address] May, [facility] [address] [id number] [address] [place] [address], [place] [address] May, [facility] [address] [id number] [address] [place] [address], [place] [address] May, [facility] [address] [id number] [address] [place] [address], [place] [address] May, [facility] [address] [id number] [address] [place] [address], [place] [address] May, [facility] [address] [id number] [address] [place] [address], [place] [address] May, [facility] [address] [id number] [address] [place] [address], [place] [address] Apr, [facility] [address] [id number] [address] [place] [address], [place] [address] Apr, [facility] [address] [id number] [address] [place] [address], [place] [address] March, [facility] [address] [id number] [address] [place] [address], [place] [address] March, [facility] [address] [id number] [address] [place] [address], [place] [address] March, [facility] [address] [id number] [address] [place] [address], [place] [address] March, [facility] [address] [id number] [address] [place] [address], [place] [address] Jan, [facility] [address] [id number] [address] [place] [address], [place] [address] Jan, [facility] [address] [id number] [address] [place] [address], [place] [address] Dec, [facility] [address] [id number] [address] [place] [address], [place] [address] Dec, [facility] [address] [id number] [address] [place] [address], [place] [address] Nov, [facility] [address] [id number] [address] [place] [address], [place] [address] Nov, [facility] [address] [id number] [address] [place] [address], [place] [address] Nov, [facility] [address] [id number] [address] [place] [address], [place] [address] Nov, [facility] [address] [id number] [address] [place] [address], [place] [address] Nov, [facility] [address] [id number] [address] [place] [address], [place] [address] Nov, [facility] [address] [id number] [address] [place] [address], [place] [address] Oct, [facility] [address] [id number] [address] [place] [address], [place] [address] Oct, [facility] [address] [id number] [address] [place] [address], [place] [address] Oct, [facility] [address] [id number] [address] [place] [address], [place] [address] Oct, [facility] [address] [id number] [address] [place] [address], [place] [address] Sep, [facility] [address] [id number] [address] [place] [address], [place] [address] Sep, [facility] [address] [id number] [address] [place] [address] Sep, [facility] [address] [id number] [address] [place] [address], [place] [address] Sep, [facility] [address] [id number] [address] [place] [address] Aug, [facility] [address] [id number] [address] [place] [address], [place] [address] Aug, [facility] [address] [id number] [address] [place] [address], [place] [address] Aug, [facility] [address] [id number] [address] [place] [address], [place] [address] Aug, [facility] [address] [id number] [address] [place] [address], [place] [address] Jul, [facility] [address] [id number] [address] [place] [address], [place] [address] Jun, [facility] [address] [id number] [address] [place] [address], [place] [address] Jun, [facility] [address] [id number] [address] [place] [address], [place] [address] Jun, [facility] [address] [id number] [address] [place] [address], [place] [address] Jun, [facility] [address] [id number] [address] [place] [address], [place] [address] Jun, [facility] [address] [id number] [address] [place] [address], [place] [address] May, [facility] [address] [id number] [address] [place] [address], [place] [address] Apr, [facility] [address] [id number] [address] [place] [address], [place] [address] Apr, [facility] [address] [id number] [address] [place] [address], [place] [address] March, [facility] [address] [id number] [address] [place] [address], [place] [address] March, [facility] [address] [id number] [address] [place] [address], [place] [address] March, [facility] [address] [id number] [address] [place] [address], [place] [address] March, [facility] [address] [id number] [address] [place] [address], [place] [address] March, [facility] [address] [id number] [address] [place] [address], [place] [address] Feb, [facility] [address] [id number] [address] [place] [address], [place] [address] Feb, [facility] [address] [id number] [facility] [place] [place] [address] 27 Jan, 2013 [facility] [address] [id number] [address] [place] [address], [place] [address] 25 Jan, 2013 [facility] [address] [id number] [address] [place] [address], [place] [address] 21 Jan, 2013 [facility] [address] [id number] [address] [place] [address], [place] [address] 15 Jan, 2013 [facility] [address] [id number] [address] [place] [address], [place] [address] 15 Jan, 2013 [facility] [address] [id number] [address] [place] [address], [place] [address] 14 Jan, 2013 [facility] [address] [id number] [address] [place] [address], [place] [address] 14 Jan, 2013 [facility] [address] [id number] [address] [place] [address], [place] [address] 13 Jan, 2013 [facility] [address] [id number] [address] [place] [address], [place] [address] 26 Dec, 2012 [facility] [address] [id number] [address] [place] [address], [place] [address] 18 Dec, 2012 [facility] [address] [id number] [address] [place] [address], [place] [address] 15 Dec, 2012 [facility] [address] [id number] [address] [place] [address], [place] [address] 15 Dec, 2012 [facility] [address] [id number] [address] [place] [address], [place] [address] 14 Dec, 2012 [facility] [address] [id number] [address] [place] [address], [place] [address] 13 Dec, 2012 [facility] [address] [id number] [address] [place] [address], [place] [address] 12 Dec, 2012 [facility] [address] [id number] [address] [place] [address] 05 Dec, 2012 [facility] [address] [facility] [id number] [address] [place] [address] Nov, [facility] [address] [facility] [id number] [address] [place] [address] Nov, [facility] [address] [facility] [id number] [address] [place] [address] Nov, [facility] [address] [facility] [id number] [address] [place] [address] Nov, IMMUNIZATIONS No Known Immunizations SOCIAL HISTORY Never Assessed REASON FOR VISIT PLAN OF CARE VITAL SIGNS Height 64 in 2013-07-01 Weight 98.4 lbs 2013-07-01 Temperature 97.3 degrees Fahrenheit 2013-07-01 Heart Rate 84 bpm 2013-07-01 Respiratory Rate 18 2013-07-01 Blood pressure systolic 102 mmHg 2013-07-01 Blood pressure diastolic 70 mmHg 2013-07-01 MEDICATIONS No Known Medications RESULTS No Results PROCEDURES Procedure Date Ordered Result Body Site BASIC METABOLIC PANEL Jul 01, 2013 VENIPUNCT, ROUTINE* Jul 01, 2013 INSTRUCTIONS MEDICATIONS ADMINISTERED No Known Medications MEDICAL [...] Knee replacment 11/2017 Hospitalization History Surgery(s) only Hospitalization History ER visits for falling [facility] 02/27
--- OUTSIDE RECORDS SUMMARY | 2020-04-30 12:11 | XMS REPORT ---
Author Author Sherly Durand Doctor Organization [facility] Address Unknown Phone Unavailable Care Team Providers Care Cupola Melter Name Role Phone Migration, Doctor Unavailable Unavailable PROBLEMS Type Condition ICD9-CM Code LHA05-AA Code Onset Dates Condition S tatus SNOMED Code Problem Depression F32.9 Active 02643218 Problem Anxiety F41.9 Active 64319206 Problem Vitamin D deficiency E55.9 Active 46877878 Problem Frequent falls R29.6 Active 77576 2001 Problem Hyponatremia E87.1 Active 2741102 8 Problem Essential tremor G25.0 Active 609 945652 Problem Hypercholesteremia E78.00 Active 1 8480405 Problem History of spinal fusion for scoliosis Z98.1 Active 190472999 Problem History of hypertension Z86.79 Active 998017017 Problem Diverticulitis K57.92 Active 11861 6006 Problem Degenerative scoliosis M41.9 Active [id number] ALLERGIES No Information ENCOUNTERS Encounter Location Date Diagnosis [facility] [address] [place] [address] 08 M 2019 Essential tremor G25.0 ; Frequent falls R29.6 and Rib pain R07.81 [place] [address] [place] [id number] [place] [address] March, Hyponatremia E87.1 and Low i harjeet E61.1 [place] [address] [place] [address] March, Contusion of rib on right si de, subsequent encounter S20.211D and Chest wall pain R07.89 [place] [address] [place] [id number] [address] [place] [address] March, Low hemoglobin D64.9 and [place] quent falls R29.6 [place] [address] [place] [id number] [address] [place] [address] March, Low hemoglobin D64.9 ; Essen tial tremor G25.0 and Frequent falls R29.6 [place] [address] [place] [address] Feb, [place] [address] [place] [address] Feb, Pneumonia of right lower lob e due to infectious organism J18.9 and Fever R50.9 [place] [address] [address] Feb, [place] [address] [place] [address] Oct, Degenerative scoliosis M41.9 and Anxiety F41.9 [place] [address] [address] Oct, [place] [address] [address] Jul, Hypercholesteremia E78.00 ; Depression F32.9 ; Vitamin D deficiency E55.9 ; Anxiety F41.9 and History of spinal fusion for scoliosis Z98.1 [place] [address] [address] Apr, Anxiety F41.9 ; History of s arabella fusion for scoliosis Z98.1 and Long-term use of high-risk medication Z79.899 [place] [address] [address] Nov, Depression F32.9 [place] [address] [address] Oct, Depression F32.9 ; Anxiety F 41.9 ; History of spinal fusion for scoliosis Z98.1 and History of hypertension Z86.79 [facility] [address] [place] [id number] [address] [place] [address] Sep, Dysuria R30.0 and Acute cyst itis with hematuria N30.01 [place] [address] [address] Aug, [place] [address] [address] Jul, Depression F32.9 and Diverti culitis K57.92 [place] [address] [address] May, Hyponatremia E87.1 [place] [address] [address] May, [place] [address] [address] Apr, Vasovagal syncope R55 ; Diar jose of presumed infectious origin R19.7 ; Black eye of left side, initial encounter S00.12XA ; Skin tear of left forearm without complication, initial encounter S51.812A ; Dehydration E86.0 ; Vitamin D deficiency E55.9 and Weight loss R63.4 [place] [address] [address] Apr, Vitamin D deficiency E55.9 ; History of spinal fusion for scoliosis Z98.1 ; Anxiety F41.9 and Depression F32.9 [place] [address] [address] Jan, Essential hypertension I10 ; Depression F32.9 ; Anxiety F41.9 ; History of hypertension Z86.79 ; History of anemia Z86.2 and Hyponatremia E87.1 [facility] [address] [address] Dec, Hyponatremia E87.1 [facility] [address] [address] Dec, Fever, unspecified fever cau se R50.9 and Acute nasopharyngitis J00 [place] [address] [address] Nov, Hyponatremia E87.1 [facility] [address] [facility] [id number] [address] [place] [address] Oct, Essential hypertension I10 ; Long-term use of high-risk medication Z79.899 and Vitamin D deficiency E55.9 [facility] [place] [address] [facility] [id number] [address] [place] [address] Oct, Essential hypertension I10 ; Depression F32.9 ; Anxiety F41.9 ; Long-term use of high-risk medication Z79.899 and Vitamin D deficiency E55.9 [place] [address] [facility] [id number] [address] [place] [address] Jun, History of spinal fusion for scoliosis Z98.1 ; Postoperative anemia D64.9 ; Essential hypertension I10 ; Depression F32.9 and Anxiety F41.9 [place] [address] [place] [id number] [place] [address] Jun, History of spinal fusion for scoliosis Z98.1 ; Postoperative anemia D64.9 ; Essential hypertension I10 ; Depression F32.9 and Anxiety F41.9 [place] [address] [address] May, History of spinal fusion for scoliosis Z98.1 ; Postoperative anemia D64.9 ; Essential hypertension I10 ; Depression F32.9 and Anxiety F41.9 [place] [address] [place] [id number] [place] [address] May, [facility] [address] [facility] [id number] [address] [place] [address] Apr, Dysuria R30.0 and Acute cyst itis with hematuria N30.01 [facility] [place] [address] [place] [id number] [address] [place] [address] Apr, [facility] [place] [address] [place] [id number] [address] [place] [address] Apr, [facility] [place] [address] [place] [id number] [place] [address] Apr, [facility] [place] [address] [id number] [address] [place] [address] Apr, Anxiety F41.9 [facility] [place] [address] [id number] [address] [place] [address] Feb, Anxiety F41.9 [facility] [place] [address] [id number] [address] [place] [address] Jan, [facility] [place] [address] [id number] [address] [place] [address] Jan, Severe scoliosis M41.9 [place] [address] [facility] [id number] [address] [place] [address] Jan, [place] [address] [facility] [id number] [address] [place] [address] Jan, Tremor of unknown origin R25 .1 ; Headache, unspecified headache type R51 ; Balance problem R26.89 ; Degenerative scoliosis M41.9 ; Pain in right hip M25.551 and Pain in left hip M25.552 [place] [address] [facility] [id number] [address] [place] [address] Jan, Tremor of unknown origin R25 .1 ; Headache, unspecified headache type R51 ; Balance problem R26.89 ; Degenerative scoliosis M41.9 ; Pain in right hip M25.551 and Pain in left hip M25.552 [place] [address] [facility] [id number] [address] [place] [address] Jan, [facility] [place] [address] [facility] [id number] [address] [place] [address] Oct, Essential hypertension I10 ; Vitamin D deficiency E55.9 ; Depression F32.9 ; Anxiety F41.9 ; Lumbar pain M54.5 and Screening for colon cancer Z12.11 [facility] [address] [facility] [id number] [address] [place] [address] Aug, [place] [address] [place] [id number] [address] [place] [address] Dec, [facility] [address] [facility] [id number] [address] [place] [address] Dec, Hammertoe M20.40 [facility] [place] [address] [place] [id number] [place] [address] Oct, [facility] [place] [address] [address] Oct, Essential hypertension I10 ; Vitamin D deficiency E55.9 ; Depression F32.9 ; Anxiety F41.9 ; Lumbar pain M54.5 and Hammer toe of left foot M20.42 [facility] [place] [address] [address] Sep, Acute upper respiratory infe ction, unspecified J06.9 and Other viral agents as the cause of diseases classified elsewhere B97.89 [facility] [address] [place] [id number] Apr, Dental examination V72.2 [facility] [address] [place] [id number] Apr, Dental examination V72.2 [facility] [address] [place] [address] [id number] Apr, Dental examination V72.2 [facility] [address] [place] [address] [id number] Apr, Dental examination V72.2 [facility] [address] [id number] [place] [address] [id number] March, Dental examination V72.2 [facility] [place] [address] [place] [id number] [place] [address] March, [facility] [place] [address] [place] [id number] [address] [place] [address] Feb, [facility] [place] [address] [address] Feb, [facility] [address] [id number] [address] [place] [address], [place] [address] Oct, [facility] [address] [id number] [address] [place] [address], [place] [address] Oct, [facility] [address] [id number] [address] [place] [address], [place] [address] Sep, [facility] [address] [id number] [address] [place] [address], [place] [address] Sep, [facility] [address] [id number] [address] [place] [address], [place] [address] Sep, [facility] [address] [id number] [address] [place] [address], [place] [address] Sep, [facility] [address] [id number] [address] [place] [address], [place] [address] Aug, [facility] [address] [id number] [address] [place] [address], [place] [address] Aug, [facility] [address] [id number] [address] [place] [address], [place] [address] Jul, [facility] [address] [id number] [address] [place] [address], [place] [address] Jul, [facility] [address] [id number] [address] [place] [address], [place] [address] Jun, [facility] [address] [id number] [address] [place] [address], [place] [address] Jun, [facility] [address] [id number] [address] [place] [address], [place] [address] May, [facility] [address] [id number] [address] [place] [address], [place] [address] May, [facility] [address] [id number] [address] [place] [address], [place] [address] May, [facility] [address] [id number] [address] [place] [address], [place] [address] May, [facility] [address] [id number] [address] [place] [address], [place] [address] May, [facility] [address] [id number] [address] [place] [address], [place] [address] May, [facility] [address] [id number] [address] [place] [address], [place] [address] Apr, [facility] [address] [id number] [address] [place] [address], [place] [address] Apr, [facility] [address] [id number] [address] [place] [address], [place] [address] March, [facility] [address] [id number] [address] [place] [address], [place] [address] March, [facility] [address] [id number] [address] [place] [address], [place] [address] March, [facility] [address] [id number] [address] [place] [address], [place] [address] March, [facility] [address] [id number] [address] [place] [address], [place] [address] Jan, [facility] [address] [id number] [address] [place] [address], [place] [address] Jan, [facility] [address] [id number] [address] [place] [address], [place] [address] Dec, [facility] [address] [id number] [address] [place] [address], [place] [address] Dec, [facility] [address] [id number] [address] [place] [address], [place] [address] Nov, [facility] [address] [id number] [address] [place] [address], [place] [address] Nov, [facility] [address] [id number] [address] [place] [address], [place] [address] Nov, [facility] [address] [id number] [address] [place] [address], [place] [address] Nov, [facility] [address] [id number] [address] [place] [address], [place] [address] Nov, [facility] [address] [id number] [address] [place] [address], [place] [address] Nov, [facility] [address] [id number] [address] [place] [address], [place] [address] Oct, [facility] [address] [id number] [address] [place] [address], [place] [address] Oct, [facility] [address] [id number] [address] [place] [address], [place] [address] Oct, [facility] [address] [id number] [address] [place] [address], [place] [address] Oct, [facility] [address] [id number] [address] [place] [address], [place] [address] Sep, [facility] [address] [id number] [address] [place] [address], [place] [address] Sep, [facility] [address] [id number] [address] [place] [address] Sep, [facility] [address] [id number] [address] [place] [address], [place] [address] Sep, [facility] [address] [id number] [address] [place] [address] Aug, [facility] [address] [id number] [address] [place] [address], [place] [address] Aug, [facility] [address] [id number] [address] [place] [address], [place] [address] Aug, [facility] [address] [id number] [address] [place] [address], [place] [address] Aug, [facility] [address] [id number] [address] [place] [address], [place] [address] Jul, [facility] [address] [id number] [address] [place] [address], [place] [address] Jun, [facility] [address] [id number] [address] [place] [address], [place] [address] Jun, [facility] [address] [id number] [address] [place] [address], [place] [address] Jun, [facility] [address] [id number] [address] [place] [address], [place] [address] Jun, [facility] [address] [id number] [address] [place] [address], [place] [address] Jun, [facility] [address] [id number] [address] [place] [address], [place] [address] May, [facility] [address] [id number] [address] [place] [address], [place] [address] Apr, [facility] [address] [id number] [address] [place] [address], [place] [address] Apr, [facility] [address] [id number] [address] [place] [address], [place] [address] March, [facility] [address] [id number] [address] [place] [address], [place] [address] March, [facility] [address] [id number] [address] [place] [address], [place] [address] March, [facility] [address] [id number] [address] [place] [address], [place] [address] March, [facility] [address] [id number] [address] [place] [address], [place] [address] March, [facility] [address] [id number] [address] [place] [address], [place] [address] Feb, [facility] [address] [id number] [address] [place] [address], [place] [address] Feb, [facility] [address] [id number] [facility] [place] [address] 27 Jan, 2013 [facility] [address] [id number] [address] [place] [address], [place] [address] 25 Jan, 2013 [facility] [address] [id number] [address] [place] [address], [place] [address] 21 Jan, 2013 [facility] [address] [id number] [address] [place] [address], [place] [address] 15 Jan, 2013 [facility] [address] [id number] [address] [place] [address], [place] [address] 15 Jan, 2013 [facility] [address] [id number] [address] [place] [address], [place] [address] 14 Jan, 2013 [facility] [address] [id number] [address] [place] [address], [place] [address] 14 Jan, 2013 [facility] [address] [id number] [address] [place] [address], [place] [address] 13 Jan, 2013 [facility] [address] [id number] [address] [place] [address], [place] [address] 26 Dec, 2012 [facility] [address] [id number] [address] [place] [address], [place] [id number] 18 Dec, 2012 [facility] [address] [id number] [address] [place] [address], [place] [address] 15 Dec, 2012 [facility] [address] [id number] [address] [place] [address], [place] [address] 15 Dec, 2012 [facility] [address] [id number] [address] [place] [address], [place] [address] 14 Dec, 2012 [facility] [address] [id number] [address] [place] [address], [place] [address] 13 Dec, 2012 [facility] [address] [id number] [address] [place] [address], [place] [address] 12 Dec, 2012 [facility] [address] [id number] [address] [place] [address] Dec, [facility] [address] [facility] [id number] [address] [place] [address] Nov, [facility] [address] [facility] [id number] [address] [place] [address] Nov, [facility] [address] [facility] [id number] [address] [place] [address] Nov, [facility] [address] [facility] [id number] [address] [place] [id number] Nov, IMMUNIZATIONS No Known Immunizations SOCIAL HISTORY [...] only Hospitalization History ER visits for falling [facility] 02/27
--- OUTSIDE RECORDS SUMMARY | 2020-04-30 12:11 | XMS REPORT ---
Author Author Sherly Durand Doctor Organization [facility] Address Unknown Phone Unavailable Care Team Providers Care Manager Rail Name Role Phone Migration, Doctor Unavailable Unavailable PROBLEMS Type Condition ICD9-CM Code [id number] Code Onset Dates Condition S tatus SNOMED Code Problem Depression F32.9 Active 24568714 Problem Anxiety F41.9 Active 95372358 Problem Vitamin D deficiency E55.9 Active 65003614 Problem Frequent falls R29.6 Active 17901 2001 Problem Hyponatremia E87.1 Active 6826442 8 Problem Essential tremor G25.0 Active 609 125040 Problem Hypercholesteremia E78.00 Active 1 4798861 Problem History of spinal fusion for scoliosis Z98.1 Active 537108916 Problem History of hypertension Z86.79 Active 629380047 Problem Diverticulitis K57.92 Active 19899 6006 Problem Degenerative scoliosis M41.9 Active [id number] ALLERGIES No Information ENCOUNTERS Encounter Location Date Diagnosis [facility] [address] [facility] [id number] [address] [place] [address] Apr, [facility] [address] [facility] [id number] [address] [place] [address] March, Hyponatremia E87.1 [facility] [address] [facility] [id number] [address] [place] [address] March, [facility] [address] [facility] [id number] [address] [place] [address] March, Frequent falls R29.6 [facility] [address] [facility] [id number] [address] [place] [address] March, [facility] [address] [facility] [id number] [address] [place] [address] March, Anxiety F41.9 [facility] [address] [facility] [id number] [address] [place] [address] March, Essential tremor G25.0 [place] [id number] [id number] [address] [place] [address] March, [facility] [address] [place] [address] 08 M 2019 Essential tremor G25.0 ; Frequent falls R29.6 and Rib pain R07.81 [place] [address] [facility] [id number] [address] [place] [address] March, Hyponatremia E87.1 and Low i harjeet E61.1 [place] [address] [facility] [id number] [address] [place] [address] March, Contusion of rib on right si de, subsequent encounter S20.211D and Chest wall pain R07.89 [place] [address] [facility] [id number] [address] [place] [address] March, Low hemoglobin D64.9 and [place] quent falls R29.6 [place] [address] [facility] [id number] [address] [place] [address] March, Low hemoglobin D64.9 ; Essen tial tremor G25.0 and Frequent falls R29.6 [place] [address] [facility] [id number] [address] [place] [address] Feb, [place] [address] [facility] [id number] [address] [place] [address] Feb, Pneumonia of right lower lob e due to infectious organism J18.9 and Fever R50.9 [place] [address] [id number] [address] [place] [address] Feb, [place] [address] [facility] [id number] [address] [place] [address] Oct, Degenerative scoliosis M41.9 and Anxiety F41.9 [place] [address] [facility] [id number] [address] [place] [address] Oct, [place] [address] [address] Jul, Hypercholesteremia E78.00 ; Depression F32.9 ; Vitamin D deficiency E55.9 ; Anxiety F41.9 and History of spinal fusion for scoliosis Z98.1 [facility] [address] [address] Apr, Anxiety F41.9 ; History of s arabella fusion for scoliosis Z98.1 and Long-term use of high-risk medication Z79.899 [facility] [address] [address] Nov, Depression F32.9 [place] [address] [address] Oct, Depression F32.9 ; Anxiety F 41.9 ; History of spinal fusion for scoliosis Z98.1 and History of hypertension Z86.79 [facility] [address] [address] Sep, Dysuria R30.0 and Acute cyst itis with hematuria N30.01 [facility] [address] [address] Aug, [facility] [address] [address] Jul, Depression F32.9 and Diverti culitis K57.92 [place] [address] [address] May, Hyponatremia E87.1 [facility] [address] [address] May, [place] [address] [address] Apr, Vasovagal syncope R55 ; Diar jose of presumed infectious origin R19.7 ; Black eye of left side, initial encounter S00.12XA ; Skin tear of left forearm without complication, initial encounter S51.812A ; Dehydration E86.0 ; Vitamin D deficiency E55.9 and Weight loss R63.4 [place] [address] [address] Apr, Vitamin D deficiency E55.9 ; History of spinal fusion for scoliosis Z98.1 ; Anxiety F41.9 and Depression F32.9 [place] [address] [address] Jan, Essential hypertension I10 ; Depression F32.9 ; Anxiety F41.9 ; History of hypertension Z86.79 ; History of anemia Z86.2 and Hyponatremia E87.1 [place] [address] [address] Dec, Hyponatremia E87.1 [facility] [address] [address] Dec, Fever, unspecified fever cau se R50.9 and Acute nasopharyngitis J00 [place] [address] [address] Nov, Hyponatremia E87.1 [place] [address] [address] Oct, Essential hypertension I10 ; Long-term use of high-risk medication Z79.899 and Vitamin D deficiency E55.9 [place] [address] [address] Oct, Essential hypertension I10 ; Depression F32.9 ; Anxiety F41.9 ; Long-term use of high-risk medication Z79.899 and Vitamin D deficiency E55.9 [place] [address] [address] Jun, History of spinal fusion for scoliosis Z98.1 ; Postoperative anemia D64.9 ; Essential hypertension I10 ; Depression F32.9 and Anxiety F41.9 [place] [address] [address] Jun, History of spinal fusion for scoliosis Z98.1 ; Postoperative anemia D64.9 ; Essential hypertension I10 ; Depression F32.9 and Anxiety F41.9 [facility] [address] [facility] [id number] [address] [place] [address] May, History of spinal fusion for scoliosis Z98.1 ; Postoperative anemia D64.9 ; Essential hypertension I10 ; Depression F32.9 and Anxiety F41.9 [facility] [address] [facility] [id number] [address] [place] [address] May, [facility] [address] [facility] [id number] [address] [place] [address] Apr, Dysuria R30.0 and Acute cyst itis with hematuria N30.01 [facility] [address] [place] [id number] [address] [place] [address] Apr, [facility] [address] [place] [id number] [address] [place] [address] Apr, [facility] [address] [facility] [id number] [address] [place] [address] Apr, [facility] [address] [facility] [id number] [address] [place] [address] Apr, Anxiety F41.9 [facility] [address] [facility] [id number] [address] [place] [address] Feb, Anxiety F41.9 [facility] [address] [facility] [id number] [address] [place] [address] Jan, [facility] [address] [facility] [id number] [address] [place] [address] Jan, Severe scoliosis M41.9 [facility] [address] [facility] [id number] [address] [place] [address] Jan, [facility] [address] [facility] [id number] [address] [place] [address] Jan, Tremor of unknown origin R25 .1 ; Headache, unspecified headache type R51 ; Balance problem R26.89 ; Degenerative scoliosis M41.9 ; Pain in right hip M25.551 and Pain in left hip M25.552 [place] [address] [place] [id number] [address] [place] [address] 14 Jan, 2017 Tremor of unknown origin R25 .1 ; Headache, unspecified headache type R51 ; Balance problem R26.89 ; Degenerative scoliosis M41.9 ; Pain in right hip M25.551 and Pain in left hip M25.552 [place] [address] [address] Jan, [place] [address] [place] [id number] [place] [address] Oct, Essential hypertension I10 ; Vitamin D deficiency E55.9 ; Depression F32.9 ; Anxiety F41.9 ; Lumbar pain M54.5 and Screening for colon cancer Z12.11 [place] [address] [place] [id number] [address] [place] [address] Aug, [place] [address] [address] Dec, [place] [address] [place] [id number] [place] [address] Dec, Hammertoe M20.40 [place] [address] [address] Oct, [place] [address] [place] [id number] [address] [place] [address] Oct, Essential hypertension I10 ; Vitamin D deficiency E55.9 ; Depression F32.9 ; Anxiety F41.9 ; Lumbar pain M54.5 and Hammer toe of left foot M20.42 [place] [address] [place] [id number] [address] [place] [address] Sep, Acute upper respiratory infe ction, unspecified J06.9 and Other viral agents as the cause of diseases classified elsewhere B97.89 [facility] [address] [id number] [address] [place] [id number] Apr, Dental examination V72.2 [facility] [address] [id number] [address] [place] [address] [id number] Apr, Dental examination V72.2 [facility] [address] [id number] [address] [place] [address] [id number] Apr, Dental examination V72.2 [facility] [address] [id number] [address] [place] [id number] Apr, Dental examination V72.2 [facility] [address] [id number] [address] [place] [id number] March, Dental examination V72.2 [facility] [address] [id number] [address] [place] [phone] March, [facility] [address] [id number] [address] [place] [address] Feb, [facility] [address] [id number] [address] [place] [address] Feb, [facility] [address] [id number] [address] [place] [address] Oct, [facility] [address] [id number] [address] [place] [phone] Oct, [facility] [address] [id number] [address] [place] [address] Sep, [facility] [address] [id number] [address] [place] [phone] Sep, [facility] [address] [id number] [address] [place] [address] Sep, [facility] [address] [id number] [address] [place] [address] Sep, [facility] [address] [id number] [address] [place] [phone] Aug, [facility] [address] [id number] [address] [place] [address], [place] [address] Aug, [facility] [address] [id number] [address] [place] [address], [place] [address] Jul, [facility] [address] [id number] [address] [place] [address], [place] [address] Jul, [facility] [address] [id number] [address] [place] [address], [place] [address] Jun, [facility] [address] [id number] [address] [place] [address], [place] [address] Jun, [facility] [address] [id number] [address] [place] [address], [place] [address] May, [facility] [address] [id number] [address] [place] [address], [place] [address] May, [facility] [address] [id number] [address] [place] [address], [place] [address] May, [facility] [address] [id number] [address] [place] [address], [place] [address] May, [facility] [address] [id number] [address] [place] [address], [place] [address] May, [facility] [address] [id number] [address] [place] [address], [place] [address] May, [facility] [address] [id number] [address] [place] [address], [place] [address] Apr, [facility] [address] [id number] [address] [place] [address], [place] [address] Apr, [facility] [address] [id number] [address] [place] [address], [place] [address] March, [facility] [address] [id number] [address] [place] [address], [place] [address] March, [facility] [address] [id number] [address] [place] [address], [place] [address] March, [facility] [address] [id number] [address] [place] [address], [place] [address] March, [facility] [address] [id number] [address] [place] [address], [place] [address] Jan, [facility] [address] [id number] [address] [place] [address], [place] [address] Jan, [facility] [address] [id number] [address] [place] [address], [place] [address] Dec, [facility] [address] [id number] [address] [place] [address], [place] [address] Dec, [facility] [address] [id number] [address] [place] [address], [place] [address] Nov, [facility] [address] [id number] [address] [place] [address], [place] [address] Nov, [facility] [address] [id number] [address] [place] [address], [place] [address] Nov, [facility] [address] [id number] [address] [place] [address], [place] [address] Nov, [facility] [address] [id number] [address] [place] [address], [place] [address] Nov, [facility] [address] [id number] [address] [place] [address], [place] [address] Nov, [facility] [address] [id number] [address] [place] [address], [place] [address] Oct, [facility] [address] [id number] [address] [place] [address], [place] [address] Oct, [facility] [address] [id number] [address] [place] [address], [place] [address] Oct, [facility] [address] [id number] [address] [place] [address], [place] [address] Oct, [facility] [address] [id number] [address] [place] [address], [place] [address] Sep, [facility] [address] [id number] [address] [place] [address], [place] [address] Sep, [facility] [address] [id number] [address] [place] [address], [place] [address] Sep, [facility] [address] [id number] [address] [place] [address], [place] [address] Sep, [facility] [address] [id number] [address] [place] [address], [place] [address] Aug, [facility] [address] [id number] [address] [place] [address], [place] [address] Aug, [facility] [address] [id number] [address] [place] [address], [place] [address] Aug, [facility] [address] [id number] [address] [place] [address], [place] [address] Aug, [facility] [address] [id number] [address] [place] [address], [place] [address] Jul, [facility] [address] [id number] [address] [place] [address], [place] [address] Jun, [facility] [address] [id number] [address] [place] [address], [place] [address] Jun, [facility] [address] [id number] [address] [place] [address], [place] [address] Jun, [facility] [address] [id number] [address] [place] [address], [place] [address] Jun, [facility] [address] [id number] [address] [place] [address], [place] [address] Jun, [facility] [address] [id number] [address] [place] [address], [place] [address] May, [facility] [address] [id number] [address] [place] [address], [place] [address] Apr, [facility] [address] [id number] [address] [place] [address], [place] [address] Apr, [facility] [address] [id number] [address] [place] [address], [place] [address] March, [facility] [address] [id number] [address] [place] [address], [place] [address] March, [facility] [address] [id number] [address] [place] [address], [place] [address] March, [facility] [address] [id number] [address] [place] [address], [place] [address] March, [facility] [address] [id number] [address] [place] [address], [place] [address] March, [facility] [address] [id number] [address] [place] [address], [place] [address] Feb, [facility] [address] [id number] [address] [place] [address], [place] [address] Feb, [facility] [address] [id number] [address] [place] [address], [place] [address] 27 Jan, 2013 [facility] [address] [id number] [address] [place] [address], [place] [address] 25 Jan, 2013 [facility] [address] [id number] [address] [place] [address], [place] [address] Jan, [facility] [address] [id number] [address] [place] [address], [place] [address] 15 Jan, 2013 [facility] [address] [id number] [address] [place] [address], [place] [address] 15 Jan, 2013 [facility] [address] [id number] [address] [place] [address], [place] [address] 14 Jan, 2013 [facility] [address] [id number] [address] [place] [address], [place] [address] 14 Jan, 2013 [facility] [address] [id number] [address] [place] [phone] 13 Jan, 2013 [facility] [address] [id number] [address] [place] [phone] 26 Dec, 2012 [facility] [address] [id number] [address] [place] [phone] 18 Dec, 2012 [facility] [address] [id number] [address] [place] [phone] Dec, [facility] [address] [id number] [address] [place] [address] Dec, [facility] [address] [id number] [address] [place] [phone] 14 Dec, 2012 [facility] [address] [id number] [address] [place] [phone] Dec, [facility] [address] [id number] [address] [place] [phone] Dec, [facility] [address] [id number] [address] [place] [phone] 05 Dec, 2012 [facility] [address] [id number] [address] [place] [phone] Nov, [facility] [address] [id number] [address] [place] [phone] Nov, [facility] [address] [id number] [address] [place] [phone] Nov, [facility] [address] [id number] [address] [place] [phone] Nov, IMMUNIZATIONS No Known Immunizations SOCIAL HISTORY [...] only Hospitalization History ER visits for falling [facility] 02/27
--- OUTSIDE RECORDS SUMMARY | 2020-04-30 12:12 | XMS REPORT ---
Author Author Sherly SOTOMAYOR Organization [facility] Address [address] [place] [address] Care Team Providers Care Medical Director Of Hospice Name Role Phone ESTELLA SOTOMAYOR Unavailable PROBLEMS Type Condition ICD9-CM Code [id number] Code Onset Dates Condition S tatus SNOMED Code Problem Hypercholesteremia E78.00 Active 1 9691919 Problem Hyponatremia E87.1 Active 7698193 8 Problem Depression F32.9 Active 84230226 Problem Diverticulitis K57.92 Active 45276 6006 Problem Degenerative scoliosis M41.9 Active [id number] Problem Anxiety F41.9 Active 88996896 Problem Vitamin D deficiency E55.9 Active 03091963 Problem History of spinal fusion for scoliosis Z98.1 Active 190722813 Problem History of hypertension Z86.79 Active [id number] ALLERGIES No Information ENCOUNTERS Encounter Location Date Diagnosis [place] [id number] [place] [id number] [address] [place] [address] Feb, [facility] [address] [facility] [place] [place] [id number] [address] [place] [address] Oct, Degenerative scoliosis M41.9 and Anxiety F41.9 [facility] [address] [place] [id number] [address] [place] [address] Oct, [place] [address] [facility] [place] [id number] [address] [place] [address] Jul, Hypercholesteremia E78.00 ; Depression F32.9 ; Vitamin D deficiency E55.9 ; Anxiety F41.9 and History of spinal fusion for scoliosis Z98.1 [facility] [address] [facility] [place] [id number] [address] [place] [address] Apr, Anxiety F41.9 ; History of s arabella fusion for scoliosis Z98.1 and Long-term use of high-risk medication Z79.899 [place] [address] [facility] [place] [id number] [address] [place] [address] Nov, Depression F32.9 [facility] [address] [facility] [place] [id number] [address] [place] [address] Oct, Depression F32.9 ; Anxiety F 41.9 ; History of spinal fusion for scoliosis Z98.1 and History of hypertension Z86.79 [facility] [address] [facility] [place] [id number] [address] [place] [address] Sep, Dysuria R30.0 and Acute cyst itis with hematuria N30.01 [facility] [address] [facility] [place] [id number] [address] [place] [address] Aug, [facility] [address] [address] Jul, Depression F32.9 and Diverti culitis K57.92 [place] [address] [place] [id number] [address] [place] [address] May, Hyponatremia E87.1 [facility] [address] [place] [id number] [place] [address] May, [facility] [address] [place] [id number] [place] [address] Apr, Vasovagal syncope R55 ; Diar jose of presumed infectious origin R19.7 ; Black eye of left side, initial encounter S00.12XA ; Skin tear of left forearm without complication, initial encounter S51.812A ; Dehydration E86.0 ; Vitamin D deficiency E55.9 and Weight loss R63.4 [facility] [address] [place] [id number] [address] [place] [address] Apr, Vitamin D deficiency E55.9 ; History of spinal fusion for scoliosis Z98.1 ; Anxiety F41.9 and Depression F32.9 [facility] [address] [address] Jan, Essential hypertension I10 ; Depression F32.9 ; Anxiety F41.9 ; History of hypertension Z86.79 ; History of anemia Z86.2 and Hyponatremia E87.1 [facility] [address] [facility] [place] [id number] [address] [place] [address] Dec, Hyponatremia E87.1 [facility] [address] [facility] [place] [id number] [address] [place] [address] Dec, Fever, unspecified fever cau se R50.9 and Acute nasopharyngitis J00 [place] [address] [facility] [place] [id number] [address] [place] [address] Nov, Hyponatremia E87.1 [facility] [address] [place] [id number] [address] [place] [address] Oct, Essential hypertension I10 ; Long-term use of high-risk medication Z79.899 and Vitamin D deficiency E55.9 [place] [id number] [place] [address] Oct, Essential hypertension I10 ; Depression F32.9 ; Anxiety F41.9 ; Long-term use of high-risk medication Z79.899 and Vitamin D deficiency E55.9 [place] [address] [facility] [place] [id number] [address] [place] [address] Jun, History of spinal fusion for scoliosis Z98.1 ; Postoperative anemia D64.9 ; Essential hypertension I10 ; Depression F32.9 and Anxiety F41.9 [place] [address] [place] [id number] [address] [place] [address] Jun, History of spinal fusion for scoliosis Z98.1 ; Postoperative anemia D64.9 ; Essential hypertension I10 ; Depression F32.9 and Anxiety F41.9 [place] [address] [place] [id number] [address] [place] [address] May, History of spinal fusion for scoliosis Z98.1 ; Postoperative anemia D64.9 ; Essential hypertension I10 ; Depression F32.9 and Anxiety F41.9 [facility] [address] [id number] [address] [place] [address] May, [facility] [address] [id number] [address] [place] [address] Apr, Dysuria R30.0 and Acute cyst itis with hematuria N30.01 [facility] [address] [id number] [address] [place] [address] Apr, [facility] [address] [id number] [address] [place] [address] Apr, [facility] [address] [id number] [address] [place] [address] Apr, [facility] [address] [id number] [address] [place] [address] Apr, Anxiety F41.9 [facility] [address] [id number] [address] [place] [address] Feb, Anxiety F41.9 [facility] [address] [id number] [address] [place] [address] Jan, [facility] [address] [facility] [place] [id number] [address] [place] [address] Jan, Severe scoliosis M41.9 [facility] [address] [id number] [address] [place] [address] Jan, [facility] [address] [facility] [place] [id number] [address] [place] [address] Jan, Tremor of unknown origin R25 .1 ; Headache, unspecified headache type R51 ; Balance problem R26.89 ; Degenerative scoliosis M41.9 ; Pain in right hip M25.551 and Pain in left hip M25.552 [facility] [address] [id number] [address] [place] [address] Jan, Tremor of unknown origin R25 .1 ; Headache, unspecified headache type R51 ; Balance problem R26.89 ; Degenerative scoliosis M41.9 ; Pain in right hip M25.551 and Pain in left hip M25.552 [place] [address] [address] Jan, [place] [address] [address] Oct, Essential hypertension I10 ; Vitamin D deficiency E55.9 ; Depression F32.9 ; Anxiety F41.9 ; Lumbar pain M54.5 and Screening for colon cancer Z12.11 [place] [address] [address] Aug, [place] [address] [place] [id number] [place] [address] Dec, [place] [address] [address] Dec, Hammertoe M20.40 [place] [address] [address] Oct, [address] [address] Oct, Essential hypertension I10 ; Vitamin D deficiency E55.9 ; Depression F32.9 ; Anxiety F41.9 ; Lumbar pain M54.5 and Hammer toe of left foot M20.[address] [address] Sep, Acute upper respiratory infe ction, unspecified J06.9 and Other viral agents as the cause of diseases classified elsewhere B97.89 [facility] [address] [place] [id number] [place] [id number] Apr, Dental examination V72.2 [facility] [address] [place] [id number] [place] [id number] Apr, Dental examination V72.2 [facility] [address] [id number] Apr, Dental examination V72.2 [facility] [address] [id number] [place] [id number] Apr, Dental examination V72.2 [facility] [address] [id number] [address] [place] [id number] March, Dental examination V72.2 [facility] [address] [id number] [address] [place] [address] March, [facility] [address] [id number] [address] [place] [address] Feb, [facility] [address] [id number] [address] [place] [address] Feb, [facility] [address] [id number] [address] [place] [address] Oct, [facility] [address] [id number] [address] [place] [address] Oct, [facility] [address] [id number] [address] [place] [address] Sep, [facility] [address] [id number] [address] [place] [address] Sep, [facility] [address] [id number] [address] [place] [address] Sep, [facility] [address] [id number] [address] [place] [address] Sep, [facility] [address] [id number] [address] [place] [address] Aug, [facility] [address] [id number] [address] [place] [address] Aug, [facility] [address] [id number] [address] [place] [address] Jul, [facility] [address] [id number] [address] [place] [address] Jul, [facility] [address] [id number] [address] [place] [address], [place] [address] Jun, [facility] [address] [id number] [address] [place] [address], [place] [address] Jun, [facility] [address] [id number] [address] [place] [address], [place] [address] May, [facility] [address] [id number] [address] [place] [address], [place] [address] May, [facility] [address] [id number] [address] [place] [address], [place] [address] May, [facility] [address] [id number] [address] [place] [address], [place] [address] May, [facility] [address] [id number] [address] [place] [address], [place] [address] May, [facility] [address] [id number] [address] [place] [address], [place] [address] May, [facility] [address] [id number] [address] [place] [address], [place] [address] Apr, [facility] [address] [id number] [address] [place] [address], [place] [address] Apr, [facility] [address] [id number] [address] [place] [address], [place] [address] March, [facility] [address] [id number] [address] [place] [address], [place] [address] March, [facility] [address] [id number] [address] [place] [address], [place] [address] March, [facility] [address] [id number] [address] [place] [address], [place] [address] March, [facility] [address] [id number] [address] [place] [address], [place] [address] Jan, [facility] [address] [id number] [address] [place] [address] 06 Jan, 2014 [facility] [address] [id number] [address] [place] [address], [place] [address] 07 Dec, 2013 [facility] [address] [id number] [address] [place] [address], [place] [address] 07 Dec, 2013 [facility] [address] [id number] [address] [place] [address], [place] [address] Nov, [facility] [address] [id number] [address] [place] [address], [place] [address] Nov, [facility] [address] [id number] [address] [place] [address], [place] [address] Nov, [facility] [address] [id number] [address] [place] [address], [place] [address] Nov, [facility] [address] [id number] [address] [place] [address], [place] [address] Nov, [facility] [address] [id number] [address] [place] [address], [place] [address] Nov, [facility] [address] [id number] [address] [place] [address], [place] [address] Oct, [facility] [address] [id number] [address] [place] [address], [place] [address] Oct, [facility] [address] [id number] [address] [place] [address], [place] [address] Oct, [facility] [address] [id number] [address] [place] [address], [place] [address] Oct, [facility] [address] [id number] [address] [place] [address], [place] [address] Sep, [facility] [address] [id number] [address] [place] [address], [place] [address] Sep, [facility] [address] [id number] [address] [place] [address], [place] [address] Sep, [facility] [address] [id number] [address] [place] [address], [place] [address] Sep, [facility] [address] [id number] [address] [place] [address], [place] [address] Aug, [facility] [address] [id number] [address] [place] [address], [place] [address] Aug, [facility] [address] [id number] [address] [place] [address], [place] [address] Aug, [facility] [address] [id number] [address] [place] [address], [place] [address] Aug, [facility] [address] [id number] [address] [place] [address], [place] [address] Jul, [facility] [address] [id number] [address] [place] [address], [place] [address] Jun, [facility] [address] [id number] [address] [place] [address], [place] [address] Jun, [facility] [address] [id number] [address] [place] [address], [place] [address] Jun, [facility] [address] [id number] [address] [place] [address], [place] [address] Jun, [facility] [address] [id number] [address] [place] [address], [place] [address] Jun, [facility] [address] [id number] [address] [place] [address], [place] [address] May, [facility] [address] [id number] [address] [place] [address], [place] [address] Apr, [facility] [address] [id number] [address] [place] [address], [place] [address] Apr, [facility] [address] [id number] [address] [place] [address], [place] [address] March, [facility] [address] [id number] [address] [place] [address], [place] [address] March, [facility] [address] [id number] [address] [place] [address], [place] [address] March, [facility] [address] [id number] [address] [place] [address], [place] [address] March, [facility] [address] [id number] [address] [place] [address], [place] [address] March, [facility] [address] [id number] [address] [place] [address], [place] [address] Feb, [facility] [address] [id number] [address] [place] [address], [place] [address] Feb, [facility] [address] [id number] [address] [place] [address], [place] [address] Jan, [facility] [address] [id number] [address] [place] [address], [place] [address] Jan, [facility] [address] [id number] [address] [place] [address], [place] [address] Jan, [facility] [address] [id number] [address] [place] [address], [place] [address] 15 Jan, 2013 [facility] [address] [id number] [address] [place] [address], [place] [address] 15 Jan, 2013 [facility] [address] [id number] [address] [place] [address], [place] [address] 14 Jan, 2013 [facility] [address] [id number] [address] [place] [address], [place] [address] 14 Jan, 2013 [facility] [address] [id number] [address] [place] [address], [place] [address] 13 Jan, 2013 [facility] [address] [id number] [address] [place] [address], [place] [address] 26 Dec, 2012 [facility] [address] [id number] [address] [place] [address], [place] [address] 18 Dec, 2012 [facility] [address] [id number] [address] [place] [address] 15 Dec, 2012 [facility] [address] [id number] [address] [place] [address] 15 Dec, 2012 [facility] [address] [id number] [address] [place] [address] 14 Dec, 2012 [facility] [address] [id number] [address] [place] [address] 13 Dec, 2012 [facility] [address] [id number] [address] [place] [address] 12 Dec, 2012 [facility] [address] [facility] [id number] [address] [place] [address] 05 Dec, 2012 [facility] [address] [facility] [id number] [address] [place] [address] Nov, [facility] [address] [facility] [id number] [address] [place] [address] Nov, [facility] [address] [facility] [id number] [address] [place] [address] Nov, [facility] [address] [facility] [id number] [address] [place] [address] Nov, IMMUNIZATIONS No Known Immunizations SOCIAL HISTORY [...]
--- OUTSIDE RECORDS SUMMARY | 2020-04-30 12:12 | XMS REPORT ---
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 Role Phone ESTELLA SOTOMAYOR Unavailable PROBLEMS Type Condition ICD9-CM Code [id number] Code Onset Dates Condition S tatus SNOMED Code Problem Hypercholesteremia E78.00 Active 1 0260290 Problem Hyponatremia E87.1 Active 6860250 8 Problem Depression F32.9 Active 55769668 Problem Diverticulitis K57.92 Active 25019 6006 Problem Degenerative scoliosis M41.9 Active [id number] Problem Anxiety F41.9 Active 71363684 Problem Vitamin D deficiency E55.9 Active 01286422 Problem History of spinal fusion for scoliosis Z98.1 Active 670138803 Problem History of hypertension Z86.79 Active [id number] ALLERGIES No Information ENCOUNTERS Encounter Location Date Diagnosis [place] [id number] [facility] [id number] [address] [place] [address] Feb, [facility] [address] [facility] [id number] [address] [place] [address] Feb, [facility] [address] [facility] [id number] [address] [place] [address] Oct, Degenerative scoliosis M41.9 and Anxiety F41.9 [facility] [address] [facility] [id number] [address] [place] [address] Oct, [facility] [address] [facility] [id number] [address] [place] [address] Jul, Hypercholesteremia E78.00 ; Depression F32.9 ; Vitamin D deficiency E55.9 ; Anxiety F41.9 and History of spinal fusion for scoliosis Z98.1 [facility] [address] [facility] [id number] [place] [address] Apr, Anxiety F41.9 ; History of s arabella fusion for scoliosis Z98.1 and Long-term use of high-risk medication Z79.899 [place] [address] [address] Nov, Depression F32.9 [place] [address] [address] Oct, Depression F32.9 ; Anxiety F 41.9 ; History of spinal fusion for scoliosis Z98.1 and History of hypertension Z86.79 [facility] [address] [address] Sep, Dysuria R30.0 and Acute cyst itis with hematuria N30.01 [place] [address] [address] Aug, [place] [address] [address] Jul, Depression F32.9 and Diverti culitis K57.92 [place] [address] [address] May, Hyponatremia E87.1 [facility] [address] [address] May, [place] [address] [address] Apr, Vasovagal syncope R55 ; Diar jose of presumed infectious origin R19.7 ; Black eye of left side, initial encounter S00.12XA ; Skin tear of left forearm without complication, initial encounter S51.812A ; Dehydration E86.0 ; Vitamin D deficiency E55.9 and Weight loss R63.4 [place] [address] [address] Apr, Vitamin D deficiency E55.9 ; History of spinal fusion for scoliosis Z98.1 ; Anxiety F41.9 and Depression F32.9 [place] [address] [address] Jan, Essential hypertension I10 ; Depression F32.9 ; Anxiety F41.9 ; History of hypertension Z86.79 ; History of anemia Z86.2 and Hyponatremia E87.1 [facility] [address] [address] Dec, Hyponatremia E87.1 [facility] [address] [address] Dec, Fever, unspecified fever cau se R50.9 and Acute nasopharyngitis J00 [place] [address] [address] Nov, Hyponatremia E87.1 [place] [address] [address] Oct, Essential hypertension I10 ; Long-term use of high-risk medication Z79.899 and Vitamin D deficiency E55.9 [place] [address] [address] Oct, Essential hypertension I10 ; Depression F32.9 ; Anxiety F41.9 ; Long-term use of high-risk medication Z79.899 and Vitamin D deficiency E55.9 [place] [address] [address] Jun, History of spinal fusion for scoliosis Z98.1 ; Postoperative anemia D64.9 ; Essential hypertension I10 ; Depression F32.9 and Anxiety F41.9 [place] [address] [address] Jun, History of spinal fusion for scoliosis Z98.1 ; Postoperative anemia D64.9 ; Essential hypertension I10 ; Depression F32.9 and Anxiety F41.9 [place] [address] [address] May, History of spinal fusion for scoliosis Z98.1 ; Postoperative anemia D64.9 ; Essential hypertension I10 ; Depression F32.9 and Anxiety F41.9 [facility] [address] [facility] [id number] [address] [place] [address] May, [facility] [address] [facility] [id number] [address] [place] [address] Apr, Dysuria R30.0 and Acute cyst itis with hematuria N30.01 [facility] [address] [id number] [address] [place] [address] Apr, [facility] [address] [id number] [address] [place] [address] Apr, [facility] [address] [facility] [id number] [address] [place] [address] Apr, [facility] [address] [facility] [id number] [address] [place] [address] Apr, Anxiety F41.9 [facility] [address] [facility] [id number] [address] [place] [address] Feb, Anxiety F41.9 [facility] [address] [facility] [id number] [address] [place] [address] Jan, [facility] [address] [facility] [id number] [address] [place] [address] Jan, Severe scoliosis M41.9 [facility] [address] [facility] [id number] [address] [place] [address] Jan, [facility] [address] [facility] [id number] [address] [place] [address] Jan, Tremor of unknown origin R25 .1 ; Headache, unspecified headache type R51 ; Balance problem R26.89 ; Degenerative scoliosis M41.9 ; Pain in right hip M25.551 and Pain in left hip M25.552 [facility] [address] [facility] [id number] [address] [place] [address] 14 Jan, 2017 Tremor of unknown origin R25 .1 ; Headache, unspecified headache type R51 ; Balance problem R26.89 ; Degenerative scoliosis M41.9 ; Pain in right hip M25.551 and Pain in left hip M25.552 [place] [address] [address] 10 Jan, 2017 [place] [address] [address] Oct, Essential hypertension I10 ; Vitamin D deficiency E55.9 ; Depression F32.9 ; Anxiety F41.9 ; Lumbar pain M54.5 and Screening for colon cancer Z12.[address] [address] Aug, [place] [address] [address] Dec, [place] [address] [address] Dec, [place] M20.[address] [address] Oct, [address] [address] Oct, Essential hypertension I10 ; Vitamin D deficiency E55.9 ; Depression F32.9 ; Anxiety F41.9 ; Lumbar pain M54.5 and Hammer toe of left foot M20.42 [place] [id number] [place] [address] Sep, Acute upper respiratory infe ction, unspecified J06.9 and Other viral agents as the cause of diseases classified elsewhere B97.89 [facility] [address] [place] [id number] [address] [place] [address] [id number] Apr, Dental examination V72.2 [facility] [address] [place] [id number] [place] [id number] Apr, Dental examination V72.2 [facility] [address] [id number] [address] [place] [address] [id number] Apr, Dental examination V72.2 [facility] [address] [id number] [address] [place] [address] [id number] Apr, Dental examination V72.2 [facility] [address] [id number] [address] [place] [address] [id number] March, Dental examination V72.2 [facility] [address] [id number] [address] [place] [address], [place] [address] March, [facility] [address] [id number] [address] [place] [address], [place] [address] Feb, [facility] [address] [id number] [address] [place] [address], [place] [address] Feb, [facility] [address] [id number] [address] [place] [address] Oct, [facility] [address] [id number] [address] [place] [address] Oct, [facility] [address] [id number] [address] [place] [address], [place] [address] Sep, [facility] [address] [id number] [address] [place] [address] Sep, [facility] [address] [id number] [address] [place] [address] Sep, [facility] [address] [id number] [address] [place] [address] Sep, [facility] [address] [id number] [address] [place] [address], [place] [address] Aug, [facility] [address] [id number] [address] [place] [address] Aug, [facility] [address] [id number] [address] [place] [address] Jul, [facility] [address] [id number] [address] [place] [address], [place] [address] Jul, [facility] [address] [id number] [address] [place] [address], [place] [address] Jun, [facility] [address] [id number] [address] [place] [address], [place] [address] Jun, [facility] [address] [id number] [address] [place] [address], [place] [address] May, [facility] [address] [id number] [address] [place] [address], [place] [address] May, [facility] [address] [id number] [address] [place] [address], [place] [address] May, [facility] [address] [id number] [address] [place] [address], [place] [address] May, [facility] [address] [id number] [address] [place] [address], [place] [address] May, [facility] [address] [id number] [address] [place] [address], [place] [address] May, [facility] [address] [id number] [address] [place] [address], [place] [address] Apr, [facility] [address] [id number] [address] [place] [address], [place] [address] Apr, [facility] [address] [id number] [address] [place] [address], [place] [address] March, [facility] [address] [id number] [address] [place] [address], [place] [address] March, [facility] [address] [id number] [address] [place] [address], [place] [address] March, [facility] [address] [id number] [address] [place] [address], [place] [address] March, [facility] [address] [id number] [address] [place] [address], [place] [address] 06 Jan, 2014 [facility] [address] [id number] [address] [place] [address], [place] [address] Jan, [facility] [address] [id number] [address] [place] [address], [place] [address] 07 Dec, 2013 [facility] [address] [id number] [address] [place] [address], [place] [address] Dec, [facility] [address] [id number] [address] [place] [address], [place] [address] Nov, [facility] [address] [id number] [address] [place] [address], [place] [address] Nov, [facility] [address] [id number] [address] [place] [address], [place] [address] Nov, [facility] [address] [id number] [address] [place] [address], [place] [address] Nov, [facility] [address] [id number] [address] [place] [address], [place] [address] Nov, [facility] [address] [id number] [address] [place] [address], [place] [address] Nov, [facility] [address] [id number] [address] [place] [address], [place] [address] Oct, [facility] [address] [id number] [address] [place] [address], [place] [address] Oct, [facility] [address] [id number] [address] [place] [address], [place] [address] Oct, [facility] [address] [id number] [address] [place] [address], [place] [address] Oct, [facility] [address] [id number] [address] [place] [address], [place] [address] Sep, [facility] [address] [id number] [address] [place] [address], [place] [address] Sep, [facility] [address] [id number] [address] [place] [address], [place] [address] Sep, [facility] [address] [id number] [address] [place] [address], [place] [address] Sep, [facility] [address] [id number] [address] [place] [address], [place] [address] Aug, [facility] [address] [id number] [address] [place] [address], [place] [address] Aug, [facility] [address] [id number] [address] [place] [address], [place] [address] Aug, [facility] [address] [id number] [address] [place] [address], [place] [address] Aug, [facility] [address] [id number] [address] [place] [address], [place] [address] Jul, [facility] [address] [id number] [address] [place] [address], [place] [address] Jun, [facility] [address] [id number] [address] [place] [address], [place] [address] Jun, [facility] [address] [id number] [address] [place] [address], [place] [address] Jun, [facility] [address] [id number] [address] [place] [address], [place] [address] Jun, [facility] [address] [id number] [address] [place] [address], [place] [address] Jun, [facility] [address] [id number] [address] [place] [address], [place] [address] May, [facility] [address] [id number] [address] [place] [address], [place] [address] Apr, [facility] [address] [id number] [address] [place] [address], [place] [address] Apr, [facility] [address] [id number] [address] [place] [address], [place] [address] March, [facility] [address] [id number] [address] [place] [address], [place] [address] March, [facility] [address] [id number] [address] [place] [address], [place] [address] March, [facility] [address] [id number] [address] [place] [address], [place] [address] March, [facility] [address] [id number] [address] [place] [address], [place] [address] March, [facility] [address] [id number] [address] [place] [address], [place] [address] Feb, [facility] [address] [id number] [address] [place] [address], [place] [address] Feb, [facility] [address] [id number] [address] [place] [address], [place] [address] Jan, [facility] [address] [id number] [address] [place] [address], [place] [address] Jan, [facility] [address] [id number] [address] [place] [address], [place] [address] Jan, [facility] [address] [id number] [address] [place] [address], [place] [address] Jan, [facility] [address] [id number] [address] [place] [address], [place] [address] 15 Jan, 2013 [facility] [address] [id number] [address] [place] [address], [place] [address] 14 Jan, 2013 [facility] [address] [id number] [address] [place] [address], [place] [address] 14 Jan, 2013 [facility] [address] [id number] [address] [place] [address], [place] [address] Jan, [facility] [address] [id number] [address] [place] [address], [place] [address] 26 Dec, 2012 [facility] [address] [id number] [address] [place] [address] 18 Dec, 2012 [facility] [address] [id number] [address] [place] [address] 15 Dec, 2012 [facility] [address] [id number] [address] [place] [address] 15 Dec, 2012 [facility] [address] [id number] [address] [place] [address] 14 Dec, 2012 [facility] [address] [id number] [address] [place] [address] 13 Dec, 2012 [facility] [address] [id number] [address] [place] [address] 12 Dec, 2012 [facility] [address] [id number] [address] [place] [address] 05 Dec, 2012 [facility] [address] [id number] [address] [place] [address] Nov, [facility] [address] [id number] [address] [place] [address] Nov, [facility] [address] [id number] [address] [place] [address] Nov, [facility] [address] [id number] [address] [place] [address] Nov, IMMUNIZATIONS No Known Immunizations SOCIAL HISTORY [...]
--- OUTSIDE RECORDS SUMMARY | 2020-04-30 12:12 | XMS REPORT ---
Author Author Sherly SOTOMAYOR Organization [facility] Address [address] [place] [address] Care Team Providers Care Greenskeeper Name Role Phone ESTELLA SOTOMAYOR Unavailable PROBLEMS Type Condition ICD9-CM Code ALN54-HY Code Onset Dates Condition S tatus SNOMED Code Problem Hypercholesteremia E78.00 Active 1 2487463 Problem Hyponatremia E87.1 Active 5077162 8 Problem Depression F32.9 Active 86628437 Problem Diverticulitis K57.92 Active 36595 6006 Problem Degenerative scoliosis M41.9 Active [id number] Problem Anxiety F41.9 Active 07175667 Problem Vitamin D deficiency E55.9 Active 19692098 Problem History of spinal fusion for scoliosis Z98.1 Active 405685248 Problem History of hypertension Z86.79 Active [id number] ALLERGIES No Information ENCOUNTERS Encounter Location Date Diagnosis [place] [id number] [facility] [id number] [address] [place] [address] Feb, [facility] [address] [facility] [id number] [address] [place] [address] Feb, [facility] [address] [facility] [id number] [address] [place] [address] Oct, Degenerative scoliosis M41.9 and Anxiety F41.9 [facility] [address] [facility] [id number] [address] [place] [address] Oct, [facility] [address] [facility] [id number] [address] [place] [address] Jul, Hypercholesteremia E78.00 ; Depression F32.9 ; Vitamin D deficiency E55.9 ; Anxiety F41.9 and History of spinal fusion for scoliosis Z98.1 [facility] [address] [facility] [id number] [place] [address] Apr, Anxiety F41.9 ; History of s arabella fusion for scoliosis Z98.1 and Long-term use of high-risk medication Z79.899 [place] [address] [address] Nov, Depression F32.9 [place] [address] [address] Oct, Depression F32.9 ; Anxiety F 41.9 ; History of spinal fusion for scoliosis Z98.1 and History of hypertension Z86.79 [facility] [address] [address] Sep, Dysuria R30.0 and Acute cyst itis with hematuria N30.01 [place] [address] [address] Aug, [place] [address] [address] Jul, Depression F32.9 and Diverti culitis K57.92 [place] [address] [address] May, Hyponatremia E87.1 [facility] [address] [address] May, [place] [address] [address] Apr, Vasovagal syncope R55 ; Diar jose of presumed infectious origin R19.7 ; Black eye of left side, initial encounter S00.12XA ; Skin tear of left forearm without complication, initial encounter S51.812A ; Dehydration E86.0 ; Vitamin D deficiency E55.9 and Weight loss R63.4 [place] [address] [address] Apr, Vitamin D deficiency E55.9 ; History of spinal fusion for scoliosis Z98.1 ; Anxiety F41.9 and Depression F32.9 [place] [address] [address] Jan, Essential hypertension I10 ; Depression F32.9 ; Anxiety F41.9 ; History of hypertension Z86.79 ; History of anemia Z86.2 and Hyponatremia E87.1 [facility] [address] [address] Dec, Hyponatremia E87.1 [facility] [address] [address] Dec, Fever, unspecified fever cau se R50.9 and Acute nasopharyngitis J00 [place] [address] [address] Nov, Hyponatremia E87.1 [place] [address] [address] Oct, Essential hypertension I10 ; Long-term use of high-risk medication Z79.899 and Vitamin D deficiency E55.9 [place] [address] [address] Oct, Essential hypertension I10 ; Depression F32.9 ; Anxiety F41.9 ; Long-term use of high-risk medication Z79.899 and Vitamin D deficiency E55.9 [place] [address] [address] Jun, History of spinal fusion for scoliosis Z98.1 ; Postoperative anemia D64.9 ; Essential hypertension I10 ; Depression F32.9 and Anxiety F41.9 [place] [address] [address] Jun, History of spinal fusion for scoliosis Z98.1 ; Postoperative anemia D64.9 ; Essential hypertension I10 ; Depression F32.9 and Anxiety F41.9 [place] [address] [address] May, History of spinal fusion for scoliosis Z98.1 ; Postoperative anemia D64.9 ; Essential hypertension I10 ; Depression F32.9 and Anxiety F41.9 [facility] [address] [facility] [id number] [address] [place] [address] May, [facility] [address] [facility] [id number] [address] [place] [address] Apr, Dysuria R30.0 and Acute cyst itis with hematuria N30.01 [facility] [address] [id number] [address] [place] [address] Apr, [facility] [address] [id number] [address] [place] [address] Apr, [facility] [address] [facility] [id number] [address] [place] [address] Apr, [facility] [address] [facility] [id number] [address] [place] [address] Apr, Anxiety F41.9 [facility] [address] [facility] [id number] [address] [place] [address] Feb, Anxiety F41.9 [facility] [address] [facility] [id number] [address] [place] [address] Jan, [facility] [address] [facility] [id number] [address] [place] [address] Jan, Severe scoliosis M41.9 [facility] [address] [facility] [id number] [address] [place] [address] Jan, [facility] [address] [facility] [id number] [address] [place] [address] Jan, Tremor of unknown origin R25 .1 ; Headache, unspecified headache type R51 ; Balance problem R26.89 ; Degenerative scoliosis M41.9 ; Pain in right hip M25.551 and Pain in left hip M25.552 [facility] [address] [facility] [id number] [address] [place] [address] 14 Jan, 2017 Tremor of unknown origin R25 .1 ; Headache, unspecified headache type R51 ; Balance problem R26.89 ; Degenerative scoliosis M41.9 ; Pain in right hip M25.551 and Pain in left hip M25.552 [place] [address] [address] 10 Jan, 2017 [place] [address] [address] Oct, Essential hypertension I10 ; Vitamin D deficiency E55.9 ; Depression F32.9 ; Anxiety F41.9 ; Lumbar pain M54.5 and Screening for colon cancer Z12.[address] [address] Aug, [place] [address] [address] Dec, [place] [address] [address] Dec, [place] M20.[address] [address] Oct, [address] [address] Oct, Essential hypertension I10 ; Vitamin D deficiency E55.9 ; Depression F32.9 ; Anxiety F41.9 ; Lumbar pain M54.5 and Hammer toe of left foot M20.42 [place] [id number] [place] [address] Sep, Acute upper respiratory infe ction, unspecified J06.9 and Other viral agents as the cause of diseases classified elsewhere B97.89 [facility] [address] [place] [id number] [address] [place] [address] [id number] Apr, Dental examination V72.2 [facility] [address] [place] [id number] [place] [address] [id number] Apr, Dental examination V72.2 [facility] [address] [id number] [address] [place] [address] [id number] Apr, Dental examination V72.2 [facility] [address] [id number] [address] [place] [address] [id number] Apr, Dental examination V72.2 [facility] [address] [id number] [address] [place] [address] [id number] March, Dental examination V72.2 [facility] [address] [id number] [address] [place] [address], [place] [address] March, [facility] [address] [id number] [address] [place] [address], [place] [address] Feb, [facility] [address] [id number] [address] [place] [address], [place] [address] Feb, [facility] [address] [id number] [address] [place] [phone] Oct, [facility] [address] [id number] [address] [place] [address] Oct, [facility] [address] [id number] [address] [place] [address], [place] [address] Sep, [facility] [address] [id number] [address] [place] [address] Sep, [facility] [address] [id number] [address] [place] [address] Sep, [facility] [address] [id number] [address] [place] [phone] Sep, [facility] [address] [id number] [address] [place] [address], [place] [address] Aug, [facility] [address] [id number] [address] [place] [phone] Aug, [facility] [address] [id number] [address] [place] [phone] Jul, [facility] [address] [id number] [address] [place] [address], [place] [address] Jul, [facility] [address] [id number] [address] [place] [address], [place] [address] Jun, [facility] [address] [id number] [address] [place] [address], [place] [address] Jun, [facility] [address] [id number] [address] [place] [address], [place] [address] May, [facility] [address] [id number] [address] [place] [address], [place] [address] May, [facility] [address] [id number] [address] [place] [address], [place] [address] May, [facility] [address] [id number] [address] [place] [address], [place] [address] May, [facility] [address] [id number] [address] [place] [address], [place] [address] May, [facility] [address] [id number] [address] [place] [address], [place] [address] May, [facility] [address] [id number] [address] [place] [address], [place] [address] Apr, [facility] [address] [id number] [address] [place] [address], [place] [address] Apr, [facility] [address] [id number] [address] [place] [address], [place] [address] March, [facility] [address] [id number] [address] [place] [address], [place] [address] March, [facility] [address] [id number] [address] [place] [address], [place] [address] March, [facility] [address] [id number] [address] [place] [address], [place] [address] March, [facility] [address] [id number] [address] [place] [address], [place] [address] 06 Jan, 2014 [facility] [address] [id number] [address] [place] [address], [place] [address] Jan, [facility] [address] [id number] [address] [place] [address], [place] [address] 07 Dec, 2013 [facility] [address] [id number] [address] [place] [address], [place] [address] Dec, [facility] [address] [id number] [address] [place] [address], [place] [address] Nov, [facility] [address] [id number] [address] [place] [address], [place] [address] Nov, [facility] [address] [id number] [address] [place] [address], [place] [address] Nov, [facility] [address] [id number] [address] [place] [address], [place] [address] Nov, [facility] [address] [id number] [address] [place] [address], [place] [address] Nov, [facility] [address] [id number] [address] [place] [address], [place] [address] Nov, [facility] [address] [id number] [address] [place] [address], [place] [address] Oct, [facility] [address] [id number] [address] [place] [address], [place] [address] Oct, [facility] [address] [id number] [address] [place] [address], [place] [address] Oct, [facility] [address] [id number] [address] [place] [address], [place] [address] Oct, [facility] [address] [id number] [address] [place] [address], [place] [address] Sep, [facility] [address] [id number] [address] [place] [address], [place] [address] Sep, [facility] [address] [id number] [address] [place] [address], [place] [address] Sep, [facility] [address] [id number] [address] [place] [address], [place] [address] Sep, [facility] [address] [id number] [address] [place] [address], [place] [address] Aug, [facility] [address] [id number] [address] [place] [address], [place] [address] Aug, [facility] [address] [id number] [address] [place] [address], [place] [address] Aug, [facility] [address] [id number] [address] [place] [address], [place] [address] Aug, [facility] [address] [id number] [address] [place] [address], [place] [address] Jul, [facility] [address] [id number] [address] [place] [address], [place] [address] Jun, [facility] [address] [id number] [address] [place] [address], [place] [address] Jun, [facility] [address] [id number] [address] [place] [address], [place] [address] Jun, [facility] [address] [id number] [address] [place] [address], [place] [address] Jun, [facility] [address] [id number] [address] [place] [address], [place] [address] Jun, [facility] [address] [id number] [address] [place] [address], [place] [address] May, [facility] [address] [id number] [address] [place] [address], [place] [address] Apr, [facility] [address] [id number] [address] [place] [address], [place] [address] Apr, [facility] [address] [id number] [address] [place] [address], [place] [address] March, [facility] [address] [id number] [address] [place] [address], [place] [address] March, [facility] [address] [id number] [address] [place] [address], [place] [address] March, [facility] [address] [id number] [address] [place] [address], [place] [address] March, [facility] [address] [id number] [address] [place] [address], [place] [address] March, [facility] [address] [id number] [address] [place] [address], [place] [address] Feb, [facility] [address] [id number] [address] [place] [address], [place] [address] Feb, [facility] [address] [id number] [address] [place] [address], [place] [address] Jan, [facility] [address] [id number] [address] [place] [address], [place] [address] Jan, [facility] [address] [id number] [address] [place] [address], [place] [address] Jan, [facility] [address] [id number] [address] [place] [address], [place] [address] Jan, [facility] [address] [id number] [address] [place] [address], [place] [address] 15 Jan, 2013 [facility] [address] [id number] [address] [place] [address], [place] [address] 14 Jan, 2013 [facility] [address] [id number] [address] [place] [address], [place] [address] 14 Jan, 2013 [facility] [address] [id number] [address] [place] [address], [place] [address] Jan, [facility] [address] [id number] [address] [place] [address], [place] [address] 26 Dec, 2012 [facility] [address] [id number] [address] [place] [id number] 18 Dec, 2012 [facility] [address] [id number] [address] [place] [address] 15 Dec, 2012 [facility] [address] [id number] [address] [place] [id number] 15 Dec, 2012 [facility] [address] [id number] [address] [place] [id number] 14 Dec, 2012 [facility] [address] [id number] [address] [place] [address] 13 Dec, 2012 [facility] [address] [id number] [address] [place] [address] 12 Dec, 2012 [facility] [address] [id number] [address] [place] [phone] 05 Dec, 2012 [facility] [address] [id number] [address] [place] [address] Nov, [facility] [address] [id number] [address] [place] [address] Nov, [facility] [address] [id number] [address] [place] [address] Nov, [facility] [address] [id number] [address] [place] [phone] Nov, IMMUNIZATIONS No Known Immunizations SOCIAL HISTORY [...]
--- OUTSIDE RECORDS SUMMARY | 2020-04-30 12:16 | XMS REPORT | Continuity of Care Document ---
Demographics Preferred Language Unknown Marital Status Unknown Hindu Affiliation Unknown Race Unknown Ethnic Group Unknown Author Organization Unknown Address Unknown Phone Unavailable Allergies Active Description Code Type Severity Reaction Onset Reported/Identified Relationship to Patient Clinical Status Yes No Known Drug Allergies [id number] Drug Allergy Unknown N/A 05/16/2012 Yes neosporin Drug Allergy 11/24/2012 Yes penicillin Drug Allergy 11/24/2012 Yes No Known Allergies Allergy Unknown N/A 04/30/2013 Yes No Known Allergies No Known Allergies Allergy N/A N/A 04/30/2013 Yes No Known Medication Allergies NKMA N/A N/A 04/28/2014 Yes alendronate sodium [id number] Drug Allergy Unknown N/A 06/02/2018 Yes bacitracin [id number] Drug Allerg y Unknown N/A 06/02/2018 Yes lactose [id number] Drug Allergy Unknown N/A 06/02/2018 Yes neomycin [id number] Drug Allergy Unknown N/A 06/02/2018 Yes Penicillins [id number] Drug Aller gy Unknown N/A 06/02/2018 Yes polymyxin B [id number] Drug Aller gy Unknown N/A 06/02/2018 Yes raloxifene [id number] Drug Allerg y Unknown leg swelling 06/02/2018 Medications Medication Packaging Start Date St op Date Route Dosage Sig doxycycline(doxycycline hycl ate 100 mg oral tablet) 1 tabs 04/21/2015 05/05/2015 Oral 100 mg 100 mg = 1 tabs, Oral, BID, for 14 days, 28 tabs, 0 Refill(s) No home meds 01/2018 Calcium 1,000 + D3 Caplet 11/23/2018 PO 1 each ANT LY Fish Oil 1,000 mg Softgel 11/23/2018 PO 1 each ANT LY Multiple Vitamins For Women 11/23/2018 PO 1 each DAILY Vitamin B-6 11/10 PO 100 mg DAILY Problems Date Dx Coded Attending Type Code Diagnosis Diagnosed By 10/09/1150 KATHLEEN UREÑA APRN Ot F32 .9 MAJOR DEPRESSIVE DISORDER, SINGLE EPISOD 10/09/1150 KATHLEEN UREÑA APRN Ot M81 .0 AGE-RELATED OSTEOPOROSIS W/O CURRENT PAT 10/09/1150 KATHLEEN UREÑA APRN Ot Z47 .1 AFTERCARE FOLLOWING JOINT [...] MO DEPRESS NOS 11/19/2012 MIKE PEREZ PSYD 300.02 AN GEN ANXIETY 11/19/2012 MIKE PEREZ PSYD 311 MO DEPRESS NOS 11/19/2012 SPIVEY DO, AURELIA K 300.02 AN GEN ANXIETY 11/19/2012 SPIVEY DO, AURELIA K 311 MO DEPRESS NOS 11/19/2012 DIGNA SANCHEZ MD 300.0 2 AN GEN ANXIETY 11/19/2012 DIGNA SANCHEZ MD 311 MO DEPRESS NOS 11/19/2012 DIGNA SANCHEZ MD 300.0 2 AN GEN ANXIETY 11/19/2012 DIGNA SANCHEZ MD 311 MO DEPRESS NOS 11/19/2012 ANGE PARNELL MD 300.02 AN GEN ANXIETY 11/19/2012 ANGE PARNELL MD 311 MO DEPRESS NOS 11/19/2012 SPIVEY , AURELIA K 300.02 AN GEN ANXIETY 11/19/2012 SPIVEY DO, AURELIA K 311 MO DEPRESS NOS 11/19/2012 MADL WIPER BLENDER, ESTELLA L 300 .02 AN GEN ANXIETY 11/19/2012 MADL WIPER BLENDER, ESTELLA L 311 MO DEPRESS NOS 11/19/2012 SPIVEY DO, AURELIA K 300.02 AN GEN ANXIETY 11/19/2012 SPIVEY DO, AURELIA K 311 MO DEPRESS NOS 11/19/2012 WHITE DDS, KALYAN J 300.02 AN GEN ANXIETY 11/19/2012 WHITE DDS, KALYAN J 31 1 MO DEPRESS NOS 11/19/2012 MADL WIPER BLENDER, SETELLA L 300 .02 AN GEN ANXIETY 11/19/2012 MADL WIPER BLENDER, ESTELLA L 311 MO DEPRESS NOS 11/24/2012 300.00 anxiety 11/24/2012 303.90 ALC OHOL DEPENDENCE (ALCOHOLISM) 11/24/2012 305.1 CORTEZ SIDNEY DEPENDENCE 11/24/2012 401.1 ESSE NTIAL HYPERTENSION BENIGN 11/24/2012 737.30 KYP HOSCOLIOSIS 11/24/2012 MIKE PEREZ PSYD 300.00 anxiety 11/24/2012 MIKE PEREZ PSYD 303.90 [...] 305.1 NICOTINE DEPENDENCE 11/24/2012 MIKE PEREZ PSYD 401.1 ESSENTIAL HYPERTENSION BENIGN 11/24/2012 MIKE PEREZ [...] MD 737.30 KYPHOSCOLIOSIS 11/24/2012 MIKE PEREZ PSYD L 300.00 anxiety 11/24/2012 MIKE PEREZ PSYD 303.90 ALCOHOL DEPENDENCE (ALCOHOLISM) 11/24/2012 MIKE PEREZ PSYD 305.1 NICOTINE DEPENDENCE 11/24/2012 MIKE PEREZ PSYD L 401.1 ESSENTIAL HYPERTENSION BENIGN 11/24/2012 MIKE PEREZ PSYD L 737.30 KYPHOSCOLIOSIS 11/24/2012 PATRIC DO AURELIA K 300.00 anxiety 11/24/2012 PATRIC HEREDIA AURELIA K 303.90 ALCOHOL DEPENDENCE (ALCOHOLISM) 11/24/2012 PATRIC HEREDIA AURELIA K 305.1 NICOTINE DEPENDENCE 11/24/2012 PATRIC HEREDIA AURELIA K 401.1 ESSENTIAL HYPERTENSION BENIGN 11/24/2012 SPIVEY DO, AURELIA K 737.30 KYPHOSCOLIOSIS 11/24/2012 DIGNA SANCHEZ [...] DO, AURELIA K 737.30 KYPHOSCOLIOSIS 11/24/2012 MADL WIPER BLENDER, ESTELLA L 300 .00 anxiety 11/24/2012 MADL WIPER BLENDER, ESTELLA L 303 .90 ALCOHOL DEPENDENCE (ALCOHOLISM) 11/24/2012 MADL WIPER BLENDER, ESTELLA L 305 .1 NICOTINE DEPENDENCE 11/24/2012 MADL WIPER BLENDER, ESTELLA L 401 .1 ESSENTIAL HYPERTENSION BENIGN 11/24/2012 MADL WIPER BLENDER, ESTELLA L 737 .30 KYPHOSCOLIOSIS 11/24/2012 SPIVEY DO, AURELIA K 300.00 anxiety 11/24/2012 SPIVEY DO, AURELIA K 303.90 ALCOHOL DEPENDENCE (ALCOHOLISM) 11/24/2012 PATRIC HEREDIA, AURELIA K 305.1 NICOTINE DEPENDENCE 11/24/2012 SPIVEY [...] DDS, KALYAN J 737.30 KYPHOSCOLIOSIS 11/24/2012 MADL WIPER BLENDER, ESTELLA L 300 .00 anxiety 11/24/2012 MADL WIPER BLENDER, ESTELLA L 303 .90 ALCOHOL DEPENDENCE (ALCOHOLISM) 11/24/2012 MADL WIPER BLENDER, ESTELLA L 305 .1 NICOTINE DEPENDENCE 11/24/2012 MADL WIPER BLENDER, ESTELLA L 401 .1 ESSENTIAL HYPERTENSION BENIGN 11/24/2012 MADL WIPER BLENDER, ESTELLA L 737 .30 KYPHOSCOLIOSIS 12/22/2012 276.1 HYPO NATREMIA 12/22/2012 DIGNA SANCHEZ MD 276.1 HYPONATREMIA 12/22/2012 276.1 HYPO NATREMIA 12/22/2012 ANGE PARNELL MD 276.1 HYPONATREMIA 12/22/2012 276.1 HYPO NATREMIA 12/22/2012 MIKE PEREZ PSYD L 276.1 HYPONATREMIA 12/22/2012 276.1 HYPO NATREMIA 12/22/2012 276.1 HYPO NATREMIA 12/22/2012 276.1 HYPO NATREMIA 12/22/2012 ANGE PARNELL MD 276.1 HYPONATREMIA 12/22/2012 MIKE PEREZ PSYD L 276.1 HYPONATREMIA 12/22/2012 SPIVEY DO AURELIA K 276.1 HYPONATREMIA 12/22/2012 DIGNA SANCHEZ MD 276.1 HYPONATREMIA 12/22/2012 DIGNA SANCHEZ MD 276.1 HYPONATREMIA 12/22/2012 ANGE PARNELL MD 276.1 HYPONATREMIA 12/22/2012 SPIVEY AGUSTIN HEREDIAA K 276.1 HYPONATREMIA 12/22/2012 MADL WIPER BLENDER ESTELLA L 276 .1 HYPONATREMIA 12/22/2012 PATRIC HEREDIA AURELIA K 276.1 HYPONATREMIA 12/22/2012 KALYAN WIN DDS 27 6.1 HYPONATREMIA 12/22/2012 MADL FAITH RECINOSWNYA L 276 .1 HYPONATREMIA 12/28/2012 Ot 724.5 BACK ACHE NOS 12/28/2012 Ot 737.30 IDI OPATHIC SCOLIOSIS 12/28/2012 Ot V57.1 PHYS ICAL THERAPY NEC 01/05/2013 296.32 MO DEPRESSIVE RECURRENT MODERATE 01/05/2013 ANGE PARNELL MD 296.32 MO DEPRESSIVE RECURRENT MODERATE 01/05/2013 296.32 MO DEPRESSIVE RECURRENT MODERATE 01/05/2013 MIKE PEREZ PSYD 296.32 MO DEPRESSIVE RECURRENT MODERATE 01/05/2013 296.32 MO DEPRESSIVE RECURRENT MODERATE 01/05/2013 296.32 MO DEPRESSIVE RECURRENT MODERATE 01/05/2013 296.32 MO DEPRESSIVE RECURRENT MODERATE 01/05/2013 ANGE PARNELL MD 296.32 MO DEPRESSIVE RECURRENT MODERATE 01/05/2013 MIKE PEREZ PSYD 296.32 MO DEPRESSIVE RECURRENT MODERATE 01/05/2013 AURELIA SPIVEY DO K 296.32 MO DEPRESSIVE RECURRENT MODERATE 01/05/2013 DIGNA SANCHEZ MD 296.3 2 MO DEPRESSIVE RECURRENT MODERATE 01/05/2013 DIGNA SANCHEZ MD 296.3 2 MO DEPRESSIVE RECURRENT MODERATE 01/05/2013 ANGE PARNELL MD 296.32 MO DEPRESSIVE RECURRENT MODERATE 01/05/2013 AURELIA SPIVEY DO K 296.32 MO DEPRESSIVE RECURRENT MODERATE 01/05/2013 ABDULLAHI SOTOMAYOR APRNA L 296 .32 MO DEPRESSIVE RECURRENT MODERATE 01/05/2013 SPIVEY AGUSTIN HEREDIAA K 296.32 MO DEPRESSIVE RECURRENT MODERATE 01/05/2013 KALYAN WIN DDS 296.32 MO DEPRESSIVE RECURRENT MODERATE 01/05/2013 MADABDULLAHI Luan APRNA L 296 .32 MO DEPRESSIVE RECURRENT MODERATE 02/01/2013 MIKE PEREZ PSYD 724.2 LUMBAGO/ LOW BACK PAIN 02/01/2013 724.2 LUMB AGO/ LOW BACK PAIN 02/01/2013 724.2 lowe r back pain 02/01/2013 724.2 lowe r back pain 02/01/2013 ANGE PARNELL MD 724.2 lower back pain 02/01/2013 MIKE PEREZ PSYD 724.2 lower back pain 02/01/2013 PATRIC HEREDIA AURELIA K 724.2 lower back pain 02/01/2013 DIGNA SANCHEZ MD 724.2 lower back pain 02/01/2013 DIGNA SANCHEZ MD 724.2 lower back pain 02/01/2013 ANGE PARNELL MD 724.2 lower back pain 02/01/2013 PATRIC HEREDIA AURELIA K 724.2 lower back pain 02/01/2013 MADL WIPER BLENDER, ESTELLA L 724 .2 lower back pain 02/01/2013 SPIVEY DO AURELIA K 724.2 lower back pain 02/01/2013 KALYAN WIN DDS 72 4.2 lower back pain 02/01/2013 MADL WIPER BLENDER, ESTELLA L 724 .2 lower back pain 03/04/2013 296.31 MO DEPRESSIVE RECURRENT MILD 03/04/2013 296.31 MYRNA OR DEPRESSION RECURRENT MILD 03/04/2013 296.31 MYRNA OR DEPRESSION RECURRENT MILD 03/04/2013 AGNE PARNELL MD 296.31 MAJOR DEPRESSION RECURRENT MILD 03/04/2013 MIKE PEREZ PSYD L 296.31 MAJOR DEPRESSION RECURRENT MILD 03/04/2013 AURELIA SPIVEY DO K 296.31 MAJOR DEPRESSION RECURRENT MILD 03/04/2013 DIGNA SANCHEZ MD 296.3 1 MAJOR DEPRESSION RECURRENT MILD 03/04/2013 DIGNA SANCHEZ MD 296.3 1 MAJOR DEPRESSION RECURRENT MILD 03/04/2013 ANGE PARNELL MD 296.31 MAJOR DEPRESSION RECURRENT MILD 03/04/2013 AURELIA SPIVEY DO K 296.31 MAJOR DEPRESSION RECURRENT MILD 03/04/2013 MADCheryl WIPER BLENDER, ESTELLA L 296 .31 MAJOR DEPRESSION RECURRENT MILD 03/04/2013 PATRIC HEREDIA AURELIA K 296.31 MAJOR DEPRESSION RECURRENT MILD 03/04/2013 KALYAN WIN DDS 296.31 MAJOR DEPRESSION RECURRENT MILD 03/04/2013 MADCheryl WIPER BLENDER, ESTELLA L 296 .31 MAJOR DEPRESSION RECURRENT MILD [...] DEPRESSIVE RECURRENT IN FULL REMISSION 09/02/2013 MADL WIPER BLENDER, ESTELLA L 296 .36 MO DEPRESSIVE RECURRENT IN FULL REMISSION 09/02/2013 SPIVEY DO AURELIA K 296.36 MO DEPRESSIVE RECURRENT IN FULL REMISSION 09/02/2013 QUIRINO RODGERS, KALYAN Whitney 296.36 MO DEPRESSIVE RECURRENT IN FULL REMISSION 09/02/2013 MADL WIPER BLENDER, ESTELLA L 296 .36 MO DEPRESSIVE RECURRENT IN FULL REMISSION 09/07/2013 SPIVEY DO AURELIA K 388.70 OTALGIA UNSPECIFIED 09/07/2013 SPIVEY DO AURELIA K 461.9 SINUSITIS ACUTE 09/07/2013 DIGNA [...] AURELIA K 461.9 SINUSITIS ACUTE 09/07/2013 MADL WIPER BLENDER ESTELLA L 388 .70 OTALGIA UNSPECIFIED 09/07/2013 MADL WIPER BLENDER ESTELLA L 461 .9 SINUSITIS ACUTE 09/07/2013 SPIVEY DO AURELIA K 388.70 OTALGIA UNSPECIFIED 09/07/2013 SPIVEY DO AURELIA K 461.9 SINUSITIS ACUTE 09/07/2013 KALYAN WIN DDS 388.70 OTALGIA UNSPECIFIED 09/07/2013 KALYAN WIN DDS 46 1.9 SINUSITIS ACUTE 09/07/2013 MADL WIPER BLENDER, ESTELLA L 388 .70 OTALGIA UNSPECIFIED 09/07/2013 MADL WIPER BLENDER, ESTELLA L 461 .9 SINUSITIS ACUTE 11/05/2013 DIGNA SANCHEZ MD 364.3 UNSPECIFIED IRIDOCYCLITIS 11/05/2013 DIGNA SANCHEZ MD 364.3 UNSPECIFIED IRIDOCYCLITIS 11/05/2013 ANGE PARNELL MD 364.3 UNSPECIFIED IRIDOCYCLITIS 11/05/2013 AURELIA SPIVEY DO K 364.3 UNSPECIFIED IRIDOCYCLITIS 11/05/2013 MADCheryl WIPER BLENDER, ESTELLA L 364 .3 UNSPECIFIED IRIDOCYCLITIS 11/05/2013 SPIVEY AGUSTIN HEREDIAA K 364.3 UNSPECIFIED IRIDOCYCLITIS 11/05/2013 KALYAN WIN DDS 36 4.3 UNSPECIFIED IRIDOCYCLITIS 11/05/2013 MADL WIPER BLENDER, ESTELLA L 364 .3 UNSPECIFIED IRIDOCYCLITIS 12/17/2013 ANGE PARNELL MD 733.00 OSTEOPOROSIS UNSPECIFIED 12/17/2013 AURELIA SPIVEY DO K 733.00 OSTEOPOROSIS UNSPECIFIED 12/17/2013 MADCheryl WIPER BLENDER, ESTELLA L 733 .00 OSTEOPOROSIS UNSPECIFIED 12/17/2013 AURELIA SPIVEY DO K 733.00 OSTEOPOROSIS UNSPECIFIED 12/17/2013 KALYAN WIN DDS 733.00 OSTEOPOROSIS UNSPECIFIED 12/17/2013 MADL WIPER BLENDER, ESTELLA L 733 .00 OSTEOPOROSIS UNSPECIFIED 02/09/2015 HUSEYIN SOLIMAN WIPER BLENDER Ot 560.32 FECAL IMPACTION 02/09/2015 HUSEYIN SOLIMAN APRN Ot 564.00 UNSPEC CONSTIPATION 02/09/2015 ANGE PARNELL MD Ot 793.82 02/09/2015 ANGE PARNELL MD Ot V76.12 02/09/2015 ANGE PARNELL MD Ot 793.80 02/09/2015 ANGE PARNELL MD Ot 276.1 02/09/2015 ANGE PARNELL MD Ot 733.00 02/09/2015 ANGE PARNELL MD Ot 737.30 02/13/2015 MADL WIPER BLENDER ESTELLA Luna V58 .69 LONG-TERM (CURRENT) USE OF OTHER MEDICATIONS 06/20/2016 Richelle Donohue V Final L72.0 Epidermal cyst 06/20/2016 Richelle Donohue V Final D36.9 Benign neoplasm, unspecified site 06/20/2016 Richelle Donohue V Final L82.1 Other seborrheic keratosis 06/20/2016 Richelle Donohue V Final M79.641 Pain in right hand 06/20/2016 Richelle Donohue V Final Z00.00 Encounter for general adult medical exam ination without abnormal findings 01/22/2017 ANGE PARNELL MD Ot 793.82 INCONCLUSIVE MAMMOGRAM 01/22/2017 ANGE PARNELL MD Ot V76.12 OTH SCREEN MAMMO-MALIGN NEOPLASM OF DOMINIK 01/22/2017 ANGE PARNELL MD Ot 793.80 UNSPEC ABNORMAL MAMMOGRAM 01/22/2017 ANGE PARNELL MD Ot 276.1 HYPOSMOLALITY 01/22/2017 ANGE PARNELL MD Ot 733.00 OSTEOPOROSIS NOS 01/22/2017 ANGE PARNELL MD Ot 737.30 IDIOPATHIC SCOLIOSIS 01/23/2017 SHRUTHIL, ESTELLA L 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 Ot M25.551 PAIN IN RIGHT HIP 01/23/2017 SHRUTHIL, ESTELLA L 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 Ot M25.552 PAIN IN LEFT HIP 01/23/2017 SHRUTHIL, ESTELLA L 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 Ot M41 .9 SCOLIOSIS, UNSPECIFIED 01/23/2017 MADL, ESTELLA L 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 Ot 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 01/23/2017 MADCheryl ESTELLA L 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 Ot R25 .1 TREMOR, UNSPECIFIED 02/12/2017 MADL, ESTELLA L 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 Ot M25.551 PAIN IN RIGHT HIP 02/12/2017 MADL, ESTELLA L 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 Ot M25.552 PAIN IN LEFT HIP 02/12/2017 ESTELLA SOTOMAYOR 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 Ot M41 .9 SCOLIOSIS, UNSPECIFIED 02/12/2017 ESTELLA SOTOMAYOR 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 Ot 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 02/12/2017 ESTELLA SOTOMAYOR 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 Ot R25 .1 TREMOR, UNSPECIFIED 03/06/2017 KAREN [...] PARNELL MD Ot 793.82 INCONCLUSIVE MAMMOGRAM 04/02/2017 AGNE PARNELL MD Ot V76.12 OTH SCREEN MAMMO-MALIGN NEOPLASM OF DOMINIK 04/02/2017 ANGE PARNELL MD Ot 793.80 UNSPEC ABNORMAL MAMMOGRAM 04/02/2017 ANGE PARNELL MD Ot 276.1 HYPOSMOLALITY 04/02/2017 ANGE PARNELL MD Ot 733.00 OSTEOPOROSIS NOS 04/02/2017 ANGE PARNELL MD Ot 737.30 IDIOPATHIC SCOLIOSIS 04/02/2017 MADL, ESTELLA L 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 Ot M25.551 PAIN IN RIGHT HIP 04/02/2017 MADL, ESTELLA L 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 Ot M25.552 PAIN IN LEFT HIP 04/02/2017 MADL, ESTELLA L 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 Ot M41 .9 SCOLIOSIS, UNSPECIFIED 04/02/2017 MADL, ESTELLA L 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 Ot 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 04/02/2017 MADL, ESTELLA L 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 Ot R25 .1 TREMOR, UNSPECIFIED 04/02/2017 KAREN [...] 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, 04/02/2017 СВЕТЛАНА ESTELLA L 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 Ot M25.551 PAIN IN RIGHT HIP 04/02/2017 MADL, ESTELLA L 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 Ot M25.552 PAIN IN LEFT HIP 04/02/2017 MADLABDULLAHIA Cheryl 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 Ot M41 .9 SCOLIOSIS, UNSPECIFIED 04/02/2017 MADLABDULLAHIA Cheryl 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 Ot 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 04/02/2017 СВЕТЛАНАABDULLAHIA L 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 Ot R25 .1 TREMOR, UNSPECIFIED 04/03/2017 KAREN [...] MD Ot R55 SYNCOPE AND COLLAPSE 04/15/2017 SHRUTHILESTELLA 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 Ot M25.551 PAIN IN RIGHT HIP 04/15/2017 MADL, ESTELLA Cheryl 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 Ot M25.552 PAIN IN LEFT HIP 04/15/2017 MADL, ESTELLA L 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 Ot M41 .9 SCOLIOSIS, UNSPECIFIED 04/15/2017 MADL, ESTELLA L 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 Ot 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 04/15/2017 ABDULLAHI SOTOMAYORA L 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 Ot R25 .1 TREMOR, UNSPECIFIED 04/15/2017 KAREN [...] PARNELL MD Ot 737.30 IDIOPATHIC SCOLIOSIS 04/15/2017 ABDULLAHI SOTOMAYORA L 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 Ot M25.551 PAIN IN RIGHT HIP 04/15/2017 СВЕТЛАНА ESTELLA L 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 Ot M25.552 PAIN IN LEFT HIP 04/15/2017 ABDULLAHI SOTOMAYORA L 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 Ot M41 .9 SCOLIOSIS, UNSPECIFIED 04/15/2017 СВЕТЛАНА ESTELLA L 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 Ot 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 04/15/2017 NEMESIO SOTOMAYORNYA L 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 Ot R25 .1 TREMOR, UNSPECIFIED 04/15/2017 KAREN [...] 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, 04/23/2017 ISABELLE PHAN MD Ot D64.9 ANEMIA, UNSPECIFIED 04/23/2017 ISABELLE PHAN MD Ot G25.0 ESSENTIAL [...] MD Ot 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 04/23/2017 ISABELLE PAHN MD Ot I10 ESSENTIAL (PRIMARY) HYPERTENSION 04/23/2017 ISABELLE PHAN MD Ot K56.7 ILEUS, UNSPECIFIED 04/23/2017 ISABELLE PHAN MD Ot K59.0 9 OTHER CONSTIPATION 04/23/2017 PHAN MD, ISABELLE E Ot R33.9 RETENTION OF URINE, UNSPECIFIED 04/23/2017 EMILIE BUCK, ISABELLE E Ot Z47.8 2 ENCOUNTER FOR ORTH AFTERCARE FOLLOWING S 04/23/2017 EMILIE BUCK, ISABELLE E Ot Z66 DO NOT RESUSCITATE 07/31/2017 KAREN [...] MARY MD Ot Z98.1 ARTHRODESIS STATUS 01/23/2018 NIRANJAN, KATHLEEN E WIPER BLENDER Ot F32 .9 MAJOR DEPRESSIVE DISORDER, SINGLE EPISOD 01/23/2018 NIRANJAN, KATHLEEN E WIPER BLENDER Ot M81 .0 AGE-RELATED OSTEOPOROSIS W/O CURRENT PAT 01/23/2018 NIRANJAN, KATHLEEN E WIPER BLENDER Ot Z47 .1 AFTERCARE FOLLOWING JOINT REPLACEMENT HUGHES 01/23/2018 NIRANJAN KATHLEEN E WIPER BLENDER Ot Z96.652 PRESENCE OF LEFT ARTIFICIAL KNEE JOINT 01/28/2018 NIRANJAN KATHLEEN E WIPER BLENDER Ot F32 .9 MAJOR DEPRESSIVE DISORDER, SINGLE EPISOD 01/28/2018 NIRANJAN, KATHLEEN E WIPER BLENDER Ot M81 .0 AGE-RELATED OSTEOPOROSIS W/O CURRENT PAT 01/28/2018 NIRANJAN, KATHLEEN E WIPER BLENDER Ot Z47 .1 AFTERCARE FOLLOWING JOINT REPLACEMENT HUGHES 01/28/2018 NIRANJAN, KATHLEEN E WIPER BLENDER Ot Z96.652 PRESENCE OF LEFT ARTIFICIAL KNEE JOINT 02/11/2018 NIRANJAN, KATHLEEN E WIPER BLENDER Ot F32 .9 MAJOR DEPRESSIVE DISORDER, SINGLE EPISOD 02/11/2018 NIRANJAN KATHLEEN E WIPER BLENDER Ot M81 .0 AGE-RELATED OSTEOPOROSIS W/O CURRENT PAT 02/11/2018 KATHLEEN UREÑA Marycruz WIPER BLENDER Ot Z47 .1 AFTERCARE FOLLOWING JOINT REPLACEMENT HUGHES 02/11/2018 KATHLEEN UREÑA WIPER BLENDER Ot Z96.652 PRESENCE OF LEFT ARTIFICIAL KNEE JOINT 05/06/2018 JOLANTA EATON WIPER BLENDER Ot R 55 SYNCOPE AND COLLAPSE 05/26/2018 EATONJOLANTA Luciano WIPER BLENDER Ot R 55 SYNCOPE AND COLLAPSE 06/03/2018 ISABELLE OLSEN DO Ot Z01.8 18 ENCOUNTER FOR OTHER PREPROCEDURAL EXAMIN 06/08/2018 PARMJIT BUCK, ANGE Lopez Ot 793.82 INCONCLUSIVE MAMMOGRAM 06/08/2018 ANGE PARNELL MD Ot V76.12 OTH SCREEN MAMMO-MALIGN NEOPLASM OF DOMINIK 06/08/2018 ANGE PARNELL MD Ot 793.80 UNSPEC ABNORMAL MAMMOGRAM 06/08/2018 ANGE PARNELL MD Ot 276.1 HYPOSMOLALITY 06/08/2018 ANGE PARNELL MD Ot 733.00 OSTEOPOROSIS NOS 06/08/2018 ANGE PARNELL MD Ot 737.30 IDIOPATHIC SCOLIOSIS 06/08/2018 MADL, ESTELLA L 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 Ot M25.551 PAIN IN RIGHT HIP 06/08/2018 MADL, ESTELLA L 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 Ot M25.552 PAIN IN LEFT HIP 06/08/2018 MADL, ESTELLA L 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 Ot M41 .9 SCOLIOSIS, UNSPECIFIED 06/08/2018 MADL, ESTELLA L 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 Ot 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 06/08/2018 FAITH SOTOMAYORWNYA L 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 Ot R25 .1 TREMOR, UNSPECIFIED 06/08/2018 KAREN [...] OTHER INTERVERTEBRAL DISC DEGENERATION, 06/08/2018 JOLANTA EATON WIPER BLENDER Ot R 55 SYNCOPE AND COLLAPSE 06/08/2018 ISABELLE OLSEN DO Ot Z01.8 18 ENCOUNTER FOR OTHER PREPROCEDURAL EXAMIN 06/09/2018 ISABELLE OLSEN DO Ot K57.3 0 DVRTCLOS OF LG INT W/O PERFORATION OR AB 06/09/2018 ISABELLE OLSEN DO Ot K64.8 OTHER HEMORRHOIDS 06/09/2018 ISABELLE OLSEN DO Ot Z12.1 1 ENCOUNTER FOR SCREENING FOR MALIGNANT NE 02/19/2020 KVNG, MIKE POSADASP Ot F32.9 MAJOR DEPRESSIVE DISORDER, SINGLE EPISOD 02/19/2020 KVNG, MIKE POSADASP Ot F41.9 ANXIETY DISORDER, UNSPECIFIED 02/19/2020 KVNG, MIKE POSADASP Ot 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 02/19/2020 KVNG, MIKE POSADASP Ot M41.9 SCOLIOSIS, UNSPECIFIED 02/19/2020 KVNG, MIKE 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 Ot M54.9 DORSALGIA, UNSPECIFIED 02/19/2020 KVNG, MIKE 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 Ot R55 SYNCOPE AND COLLAPSE 02/19/2020 KVNG, MIKE POSADASP Ot S80.211A ABRASION, RIGHT KNEE, INITIAL ENCOUNTER 02/19/2020 KVNG, MIKE POSADASP Ot Z23 ENCOUNTER FOR IMMUNIZATION 02/19/2020 KVNG, MIKE POSADASP Ot Z79.899 OTHER CHAIN OFFBEARER (CURRENT) DRUG THERAPY 02/19/2020 KVNG, MIKE POSADASP Ot Z87.891 PERSONAL HISTORY OF NICOTINE DEPENDENCE 02/19/2020 KVNG, MIKE POSADASP Ot Z88.0 ALLERGY STATUS TO PENICILLIN 02/19/2020 KVNG, MIKE 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 Ot Z88.8 ALLERGY STATUS TO OTH DRUG/MEDS/BIOL SUB 02/19/2020 KVNG, MIKE 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 Ot Z96.652 PRESENCE OF LEFT ARTIFICIAL KNEE JOINT 02/21/2020 KVNG, MIKE 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 Ot F32.9 MAJOR DEPRESSIVE DISORDER, SINGLE EPISOD 02/21/2020 KVNG, MIKE 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 Ot F41.9 ANXIETY DISORDER, UNSPECIFIED 02/21/2020 KVNG, MIKE 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 Ot 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 02/21/2020 KVNG, MIKE 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 Ot M41.9 SCOLIOSIS, UNSPECIFIED 02/21/2020 KVNG, MIKE 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 Ot M54.9 DORSALGIA, UNSPECIFIED 02/21/2020 KVNG, MIKE 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 Ot R55 SYNCOPE AND COLLAPSE 02/21/2020 KVNG, MIKE 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 Ot S80.211A ABRASION, RIGHT KNEE, INITIAL ENCOUNTER 02/21/2020 KVNG, MIKE 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 Ot Z23 ENCOUNTER FOR IMMUNIZATION 02/21/2020 KVNG, MIKE 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 Ot Z79.899 OTHER SNF (CURRENT) DRUG THERAPY 02/21/2020 KVNG, MIKE 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 Ot Z87.891 PERSONAL HISTORY OF NICOTINE DEPENDENCE 02/21/2020 KVNG, MIKE 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 Ot Z88.0 ALLERGY STATUS TO PENICILLIN 02/21/2020 KVNG, MIKE 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 Ot Z88.8 ALLERGY STATUS TO OTH DRUG/MEDS/BIOL SUB 02/21/2020 KVNG, MIKE 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 Ot Z96.652 PRESENCE OF LEFT ARTIFICIAL KNEE JOINT 02/25/2020 KVNG, MIKE 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 Ot F32.9 MAJOR DEPRESSIVE DISORDER, SINGLE EPISOD 02/25/2020 KVNG, MIKE 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 Ot F41.9 ANXIETY DISORDER, UNSPECIFIED 02/25/2020 KVNG, MIKE 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 Ot 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 02/25/2020 KVNG, MIKE 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 Ot M41.9 SCOLIOSIS, UNSPECIFIED 02/25/2020 KVNG, MIKE 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 Ot M54.9 DORSALGIA, UNSPECIFIED 02/25/2020 KVNG, MIKE 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 Ot R55 SYNCOPE AND COLLAPSE 02/25/2020 KVNG, MIKE 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 Ot S80.211A ABRASION, RIGHT KNEE, INITIAL ENCOUNTER 02/25/2020 KVNG, MIKE 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 Ot Z23 ENCOUNTER FOR IMMUNIZATION 02/25/2020 KVNG, MIKE 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 Ot Z79.899 OTHER CHAIN OFFBEARER (CURRENT) DRUG THERAPY 02/25/2020 KVNG, MIKE 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 Ot Z87.891 PERSONAL HISTORY OF NICOTINE DEPENDENCE 02/25/2020 KVNG, MIKE 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 Ot Z88.0 ALLERGY STATUS TO PENICILLIN 02/25/2020 KVNG MIKE KEYONNA Ot Z88.8 ALLERGY STATUS TO OTH DRUG/MEDS/BIOL SUB 02/25/2020 MIKE CALDERON KEYONNA Ot Z96.652 PRESENCE OF LEFT ARTIFICIAL KNEE JOINT 03/05/2020 NIKIA BUCK, ZENY Hwang Ot D64.9 ANEMIA, UNSPECIFIED 03/05/2020 NIKIA BUCK, ZENY Hwang Ot F32.9 MAJOR DEPRESSIVE DISORDER, SINGLE EPISOD 03/05/2020 NIKIA BUCK, ZENY Hwang Ot F41.9 ANXIETY DISORDER, UNSPECIFIED 03/05/2020 NIKIA BUCK, ZENY Hwang Ot 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 03/05/2020 NIKIA BUCK, ZENY Hwang Ot M54.2 CERVICALGIA 03/05/2020 NIKIA BUCK, ZENY Hwang Ot R40.2142 COMA SCALE, EYES OPEN, SPONTANEOUS, EMR 03/05/2020 NIKIA BUCK, ZENY Hwang Ot R40.2252 COMA SCALE, BEST VERBAL RESPONSE, ORIENT 03/05/2020 ZENY MONTEJO MD Ot R40.2362 COMA SCALE, BEST MOTOR RESPONSE, OBEYS C 03/05/2020 ZENY MONTEJO MD Ot W18.2XXA FALL IN (INTO) SHOWER OR EMPTY BATHTUB, 03/05/2020 ZENY MONTEJO MD Ot Y92.[address] IN [facility] NON-INSTITUT (PRIVATE 03/05/2020 NIKIA BUCK, ZENY Hwang Ot Z82.49 FAMILY HX OF ISCHEM HEART DIS AND OTH DI 03/05/2020 NIKIA BUCK, ZENY Hwang Ot Z87.891 PERSONAL HISTORY OF NICOTINE DEPENDENCE 03/05/2020 NIKIA BCUK, ZENY Hwang Ot Z88.0 ALLERGY STATUS TO PENICILLIN 03/05/2020 ZENY MONTEJO MD Ot Z88.8 ALLERGY STATUS TO OTH DRUG/MEDS/BIOL SUB 03/05/2020 ZENY MONTEJO MD Ot Z96.652 PRESENCE OF LEFT ARTIFICIAL KNEE JOINT 03/08/2020 NIKIA BUCK, ZENY Hwang Ot D64.9 ANEMIA, UNSPECIFIED 03/08/2020 ZENY MONTEJO MD Ot F32.9 MAJOR DEPRESSIVE DISORDER, SINGLE EPISOD 03/08/2020 ZENY MONTEJO MD Ot F41.9 ANXIETY DISORDER, UNSPECIFIED 03/08/2020 ZENY MONTEJO MD, Ot 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 03/08/2020 ZENY MONTEJO MD Ot M54.2 CERVICALGIA 03/08/2020 ZENY MONTEJO MD Ot R40.2142 COMA SCALE, EYES OPEN, SPONTANEOUS, EMR 03/08/2020 ZENY MONTEJO MD Ot R40.2252 COMA SCALE, BEST VERBAL RESPONSE, ORIENT 03/08/2020 ZENY MONTEJO MD Ot R40.2362 COMA SCALE, BEST MOTOR RESPONSE, OBEYS C 03/08/2020 ZENY MONTEJO MD Ot W18.2XXA FALL IN (INTO) SHOWER OR EMPTY BATHTUB, 03/08/2020 ZENY MONTEJO MD Ot Y92.[address] IN [facility] NON-INSTITUT (PRIVATE 03/08/2020 ZENY MONTEJO MD Ot Z82.49 FAMILY HX OF ISCHEM HEART DIS AND OTH DI 03/08/2020 ZENY MONTEJO MD Ot Z87.891 PERSONAL HISTORY OF NICOTINE DEPENDENCE 03/08/2020 ZENY MONTEJO MD, Ot Z88.0 ALLERGY STATUS TO PENICILLIN 03/08/2020 ZENY MONTEJO MD Ot Z88.8 ALLERGY STATUS TO OTH DRUG/MEDS/BIOL SUB 03/08/2020 ZENY MONTEJO MD Ot Z96.652 PRESENCE OF LEFT ARTIFICIAL KNEE JOINT 03/11/2020 ZENY MONTEJO MD Ot D64.9 ANEMIA, UNSPECIFIED 03/11/2020 ZENY MONTEJO MD Ot F32.9 MAJOR DEPRESSIVE DISORDER, SINGLE EPISOD 03/11/2020 ZENY MONTEJO MD, Ot F41.9 ANXIETY DISORDER, UNSPECIFIED 03/11/2020 ZENY MONTEJO MD Ot 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 03/11/2020 ZENY MONTEJO MD Ot M54.2 CERVICALGIA 03/11/2020 ZENY MONTEJO MD, Ot R40.2142 COMA SCALE, EYES OPEN, SPONTANEOUS, EMR 03/11/2020 ZENY MONTEJO MD, Ot R40.2252 COMA SCALE, BEST VERBAL RESPONSE, ORIENT 03/11/2020 ZENY MONTEJO MD, Ot R40.2362 COMA SCALE, BEST MOTOR RESPONSE, OBEYS C 03/11/2020 ZENY MONTEJO MD Ot W18.2XXA FALL IN (INTO) SHOWER OR EMPTY BATHTUB, 03/11/2020 ZENY MONTEJO MD, Ot Y92.[address] IN UNSP NON-INSTITUT (PRIVATE 03/11/2020 ZENY MONTEJO MD, Ot Z82.49 FAMILY HX OF ISCHEM HEART DIS AND OTH DI 03/11/2020 ZENY MONTEJO MD, Ot Z87.891 PERSONAL HISTORY OF NICOTINE DEPENDENCE 03/11/2020 EZNY MONTEJO MD, Ot Z88.0 ALLERGY STATUS TO PENICILLIN 03/11/2020 ZENY MONTEJO MD, Ot Z88.8 ALLERGY STATUS TO OTH DRUG/MEDS/BIOL SUB 03/11/2020 ZENY MONTEJO MD, Ot Z96.652 PRESENCE OF LEFT ARTIFICIAL KNEE JOINT 03/13/2020 ZENY MONTEJO MD, Ot D64.9 ANEMIA, UNSPECIFIED 03/13/2020 ZENY MONTEJO MD Ot F32.9 MAJOR DEPRESSIVE DISORDER, SINGLE EPISOD 03/13/2020 ZENY MONTEJO MD, Ot F41.9 ANXIETY DISORDER, UNSPECIFIED 03/13/2020 ZENY MONTEJO MD, Ot 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 03/13/2020 ZENY MONTEJO MD Ot M54.2 CERVICALGIA 03/13/2020 ZENY MONTEJO MD Ot R40.2142 COMA SCALE, EYES OPEN, SPONTANEOUS, EMR 03/13/2020 ZENY MONTEJO MD Ot R40.2252 COMA SCALE, BEST VERBAL RESPONSE, ORIENT 03/13/2020 ZENY MONTEJO MD Ot R40.2362 COMA SCALE, BEST MOTOR RESPONSE, OBEYS C 03/13/2020 NIKIA BUCK, ZENY Hwang Ot W18.2XXA FALL IN (INTO) SHOWER OR EMPTY BATHTUB, 03/13/2020 ZENY MONTEJO MD Ot Y92.[address] IN UNSP NON-INSTITUT (PRIVATE 03/13/2020 ZENY MONTEJO MD, Ot Z82.49 FAMILY HX OF ISCHEM HEART DIS AND OTH DI 03/13/2020 ZENY MONTEJO MD Ot Z87.891 PERSONAL HISTORY OF NICOTINE DEPENDENCE 03/13/2020 ZENY MONTEJO MD Ot Z88.0 ALLERGY STATUS TO PENICILLIN 03/13/2020 ZENY MONTEJO MD Ot Z88.8 ALLERGY STATUS TO OTH DRUG/MEDS/BIOL SUB 03/13/2020 ZENY MONTEJO MD Ot Z96.652 PRESENCE OF LEFT ARTIFICIAL KNEE JOINT 03/17/2020 KING JOSE D WIPER BLENDER Ot R29 .6 REPEATED FALLS 03/21/2020 JOSE HENDERSON WIPER BLENDER Ot R29 .6 REPEATED FALLS 04/25/2020 HUSEYIN SOLIMAN APRN Ot 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 IRON 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 04/25/2020 HUSEYIN SOLIMAN APRN Ot F32 .9 MAJOR DEPRESSIVE DISORDER, SINGLE EPISOD 04/25/2020 HUSEYIN SOLIMAN APRN Ot F41 .9 ANXIETY DISORDER, UNSPECIFIED 04/25/2020 HUSEYIN SOLIMAN APRN Ot K59.00 CONSTIPATION, UNSPECIFIED 04/25/2020 HUSEYIN SOLIMAN APRN Ot K64 .9 UNSPECIFIED HEMORRHOIDS 04/25/2020 HUSEYIN SOLIMAN APRN Ot Z82.49 FAMILY HX OF ISCHEM HEART DIS AND OTH DI 04/25/2020 HUSEYIN SOLIMAN APRN Ot Z87.891 PERSONAL HISTORY OF NICOTINE DEPENDENCE 04/25/2020 HUSEYIN SOLIMAN APRN Ot Z88 .0 ALLERGY STATUS TO PENICILLIN 04/25/2020 HUSEYIN SOLIMAN APRN Ot Z88 .1 ALLERGY STATUS TO OTHER ANTIBIOTIC AGENT 04/25/2020 HUSEYIN SOLIMAN APRN Ot Z88 .8 ALLERGY STATUS TO OTH DRUG/MEDS/BIOL SUB 04/25/2020 HUSEYIN SOLIMAN APRN Ot Z96.652 PRESENCE OF LEFT ARTIFICIAL KNEE JOINT Procedures Code Description [place] [address] ROUT INE VENIPUNCTURE 11/24/2012 47916 PSYC H DIAGNOSTIC EVALUATION 11/24/2012 30170 MAGNESIUM 11/24/2012 85505 CBC 11/24/2012 27720 CMP 11/24/2012 [id number] GF R CALC (RESULT ONLY) 11/24/2012 37614 TSH 11/25/2012 98558 XRAY SCOLIOSIS SERIES 12/01/2012 09252 A1C (IN-HOUSE) 12/07/2012 PHYSI Phys ical Therapy, [facility] 12/07/2012 87086 CMP 12/22/2012 [id number] GF R CALC (RESULT ONLY) 12/22/2012 46940 CALC IUM IONIZED 12/22/2012 45418 HEPA TITIS PROFILE 12/22/2012 98523 HIV ANTIBODIES (RML) 12/23/2012 22889 PSYT X PT&/FAMILY 45 MINUTES 12/28/2012 64708 PSYT X PT&/FAMILY 45 MINUTES 01/06/2013 44668 ROUT INE VENIPUNCTURE 01/21/2013 70202 BMP 01/21/2013 04909 MAGNESIUM 01/21/2013 [id number] GF R CALC (RESULT ONLY) 01/21/2013 Physical P hysical Therapy, [facility] 02/02/2013 09298 PSYT X PT&/FAMILY 45 MINUTES 02/03/2013 72774 PSYT X PT&/FAMILY 45 MINUTES 03/04/2013 81164 ROUT INE VENIPUNCTURE 03/24/2013 98546 MAMM OGRAM, SCREENING 03/24/2013 75226 BMP 03/24/2013 [id number] GF R CALC (RESULT ONLY) 03/24/2013 92306 ROUT INE VENIPUNCTURE 03/30/2013 85959 URIN E CREATININE (RANDOM) 03/30/2013 21971 URIN E OSMOLALITY 03/31/2013 10057 URIN E SODIUM, RANDOM 03/31/2013 94326 OSMO LALITY 03/31/2013 96763 ROUT INE VENIPUNCTURE 07/01/2013 54609 BMP 07/02/2013 [id number] GF R CALC (RESULT ONLY) 07/02/2013 13034 BONE DENSITY, DEXA 07/30/2013 72949 PSYT X PT&/FAMILY 30 MINUTES 09/02/2013 96044 ROUT INE VENIPUNCTURE 11/05/2013 75947 CMP 11/05/2013 [id number] GF R CALC (RESULT ONLY) 11/05/2013 43996 CRP 11/05/2013 75841 XRAY CHEST 2 VIEW 11/16/2013 64161 ROUT INE VENIPUNCTURE 05/27/2014 24066 CMP 05/27/2014 07809 CBC 05/27/2014 75329 ROUT INE VENIPUNCTURE 09/19/[id number] GF R CALC (RESULT ONLY) 09/19/2014 63514 CMP 09/19/2014 97652 ROUT INE VENIPUNCTURE 02/13/2015 34251 CMP 02/13/[id number] GF R CALC (RESULT ONLY) 02/13/2015 62107 Erma odic comprehensive preventive medicine reevaluation and management of an individual including an age and gender appropriate history, examination, counseling/anticipatory guidance/risk factor reduc 016 [id number] FU SEEMA 2-7 T JT W AUTOL SUB, POST APPR P 04/11/2017 [id number] FU SEEMA T-LUM JT W AUTOL SUB, POST APPR P 04/11/2017 [id number] FU SEEMA LUM JT W INTBD FUS DEV, ANT APPR 04/11/2017 [id number] FU SEEMA 2-4 L JT W AUTOL SUB, POST APPR P 04/11/2017 [id number] FU SEEMA LUMSAC JT W AUTOL SUB, POST APPR 04/11/2017 [id number] FU SEEMA LUMSAC JT W INTBD FUS DEV, ANT AP 04/11/2017 [id number] FU SEEMA OF SACROCOCCYGEAL JOINT WITH AUTO 04/11/2017 Results Test Result Range Comp. Metabolic Panel (14) - 10/17/16 14 :45 Glucose, Serum 88 mg/dL 65-99 BUN 8 mg/dL 8-27 Creatinine, Serum 0.64 mg/dL 0.57-1.00 eGFR If NonAfricn Am 97 mL/min/1.73 >59 eGFR If Africn Am 112 mL/min/1.73 >5 9 BUN/Creatinine Ratio 13 11-26 Sodium, Serum 137 mmol/L 136-144 Potassium, Serum 4.1 mmol/L 3.5-5.2 Chloride, Serum 97 mmol/L 97-106 Carbon Dioxide, Total 24 mmol/L 18-29 Calcium, Serum 9.7 mg/dL 8.7-10.3 Protein, Total, Serum 7.9 g/dL 6.0-8.5 Albumin, Serum 4.5 g/dL 3.6-4.8 Globulin, Total 3.4 g/dL 1.5-4.5 A/G Ratio 1.3 1.1-2.5 Bilirubin, Total 0.2 mg/dL 0.0-1.2 Alkaline Phosphatase, S 89 IU/L 39-117 AST (SGOT) 37 IU/L 0-40 ALT (SGPT) 14 IU/L 0-32 CBC With Differential/Platelet - 7 09:06 WBC 4.2 x10E3/uL 3.4-10.8 RBC 4.43 x10E6/uL 3.77-5.28 Hemoglobin 12.7 g/dL 11.1-15.9 Hematocrit 37.4 % 34.0-46.6 MCV 84 fL 79-97 MCH 28.7 pg 26.6-33.0 MCHC 34.0 g/dL 31.5-35.7 RDW 14.2 % 12.3-15.4 Platelets 321 x10E3/uL 150-379 Neutrophils 49 % Lymphs 38 % Monocytes 11 % Eos 1 % Basos 1 % Neutrophils (Absolute) 2.0 x10E3/uL 1.4- 7.0 Lymphs (Absolute) 1.6 x10E3/uL 0.7-3.1 Monocytes(Absolute) 0.5 x10E3/uL 0.1-0.9 Eos (Absolute) 0.1 x10E3/uL 0.0-0.4 Baso (Absolute) 0.0 x10E3/uL 0.0-0.2 Immature Granulocytes 0 % Immature Grans (Abs) 0.0 x10E3/uL 0.0-0. 1 Comp. Metabolic Panel (14) - 01/22/17 09 :06 Glucose, Serum 83 mg/dL 65-99 BUN 12 mg/dL 8-27 Creatinine, Serum 0.60 mg/dL 0.57-1.00 eGFR If NonAfricn Am 99 mL/min/1.73 >59 eGFR If Africn Am 115 mL/min/1.73 >5 9 BUN/Creatinine Ratio 20 11-26 Sodium, Serum 133 mmol/L 134-144 Potassium, Serum 4.5 mmol/L 3.5-5.2 Chloride, Serum 90 mmol/L 96-106 Carbon Dioxide, Total 25 mmol/L 18-29 Calcium, Serum 9.8 mg/dL 8.7-10.3 Protein, Total, Serum 8.2 g/dL 6.0-8.5 Albumin, Serum 4.6 g/dL 3.6-4.8 Globulin, Total 3.6 g/dL 1.5-4.5 A/G Ratio 1.3 1.2-2.2 Bilirubin, Total 0.3 mg/dL 0.0-1.2 Alkaline Phosphatase, S 92 IU/L 39-117 AST (SGOT) 29 IU/L 0-40 ALT (SGPT) 14 IU/L 0-32 TSH - 01/22/17 09:06 TSH 1.740 uIU/mL 0.450-4.500 Vitamin D, 25-Hydroxy - 01/22/17 09:06 Vitamin D, 25-Hydroxy 35.7 ng/mL 30.0-10 0.0 Vitamin B12 - 01/22/17 09:06 Vitamin B12 430 pg/mL 211-946 Magnesium, Serum - 01/22/17 09:06 Magnesium, Serum 2.0 mg/dL 1.6-2.3 Complete blood count (CBC) with automate d [...] T Indirect antibody screen pa charles - 04/03/17 14:45 ABO+Rh group ABP NRG Transfusion band number [id number] NRG Blood group antibody screen NEGATIVE NR G Methicillin resistant Staphylococcus aur eus (MRSA) screening culture - 04/03/17 14:45 Methicillin resistant Staphylococcus aureus (MRSA) scr eening culture NEG NRG RED CELLS LEUKO REDUCED AS1 - 04/11/17 0 7:57 RED CELLS LEUKO REDUCED AS1 P RSMD TRFSD 04/11/17 1258 NRG Blood type T Indirect antibody screen [facility] - 04/11/17 07:57 ABO+Rh group ABP NRG Transfusion band number [id number] NR Blood group antibody screen NEGATIVE NR G Whole blood hemoglobin and hematocrit [facility] - 04/11/17 12:18 Venous blood hemoglobin measurement (mass/volume) 10.7 g/dL 11.5-16.0 Blood hematocrit (volume fraction) 32 % 35-52 Whole blood hemoglobin and hematocrit [facility] 04/11/17 14:12 Venous blood hemoglobin measurement (mass/volume) [...] 0.0-0.1 Whole blood basic metabolic panel - 04/26 05:53 Serum or plasma sodium measurement [...] plasma albumin measurement (mass/volume) 3.2 g/dL 3.2-4.5 Urine Culture, Routine - 05/04/17 08:12 Urine Culture, Routine Note CBC With Differential/Platelet - 7 14:57 WBC 6.0 x10E3/uL 3.4-10.8 RBC 3.72 x10E6/uL 3.77-5.28 Hemoglobin 10.9 g/dL 11.1-15.9 Hematocrit 34.2 % 34.0-46.6 MCV 92 fL 79-97 MCH 29.3 pg 26.6-33.0 MCHC 31.9 g/dL 31.5-35.7 RDW 14.5 % 12.3-15.4 Platelets 411 x10E3/uL 150-379 Neutrophils 54 % Lymphs 36 % Monocytes 8 % Eos 1 % Basos 1 % Neutrophils (Absolute) 3.2 x10E3/uL 1.4- 7.0 Lymphs (Absolute) 2.2 x10E3/uL 0.7-3.1 Monocytes(Absolute) 0.5 x10E3/uL 0.1-0.9 Eos (Absolute) 0.1 x10E3/uL 0.0-0.4 Baso (Absolute) 0.0 x10E3/uL 0.0-0.2 Immature Granulocytes 0 % Immature Grans (Abs) 0.0 x10E3/uL 0.0-0. 1 Comp. Metabolic Panel (14) - 05/14/17 14 :57 Glucose, Serum 87 mg/dL 65-99 BUN 17 mg/dL 8-27 Creatinine, Serum 0.49 mg/dL 0.57-1.00 eGFR If NonAfricn Am 106 mL/min/1.73 >59 eGFR If Africn Am 122 mL/min/1.73 >5 9 BUN/Creatinine Ratio 35 12-28 Sodium, Serum 133 mmol/L 134-144 Potassium, Serum 4.3 mmol/L 3.5-5.2 Chloride, Serum 94 mmol/L 96-106 Carbon Dioxide, Total 20 mmol/L 18-29 Calcium, Serum 9.7 mg/dL 8.7-10.3 Protein, Total, Serum 7.3 g/dL 6.0-8.5 Albumin, Serum 4.2 g/dL 3.6-4.8 Globulin, Total 3.1 g/dL 1.5-4.5 A/G Ratio 1.4 1.2-2.2 Bilirubin, Total <0.2 mg/dL 0.0-1.2 Alkaline Phosphatase, S 119 IU/L 39-117 AST (SGOT) 36 IU/L 0-40 ALT (SGPT) 20 IU/L 0-32 CBC With Differential/Platelet - 7 12:24 WBC 4.7 x10E3/uL 3.4-10.8 RBC 4.27 x10E6/uL 3.77-5.28 Hemoglobin 12.5 g/dL 11.1-15.9 Hematocrit 38.2 % 34.0-46.6 MCV 90 fL 79-97 MCH 29.3 pg 26.6-33.0 MCHC 32.7 g/dL 31.5-35.7 RDW 13.3 % 12.3-15.4 Platelets 360 x10E3/uL 150-379 Neutrophils 55 % Lymphs 35 % Monocytes 8 % Eos 1 % Basos 1 % Neutrophils (Absolute) 2.6 x10E3/uL 1.4- 7.0 Lymphs (Absolute) 1.6 x10E3/uL 0.7-3.1 Monocytes(Absolute) 0.4 x10E3/uL 0.1-0.9 Eos (Absolute) 0.1 x10E3/uL 0.0-0.4 Baso (Absolute) 0.0 x10E3/uL 0.0-0.2 Immature Granulocytes 0 % Immature Grans (Abs) 0.0 x10E3/uL 0.0-0. 1 Comp. Metabolic Panel (14) - 06/12/17 12 :24 Glucose, Serum 87 mg/dL 65-99 BUN 9 mg/dL 8-27 Creatinine, Serum 0.58 mg/dL 0.57-1.00 eGFR If NonAfricn Am 101 mL/min/1.73 >59 eGFR If Africn Am 116 mL/min/1.73 >5 9 BUN/Creatinine Ratio 16 12-28 Sodium, Serum 130 mmol/L 134-144 Potassium, Serum 4.5 mmol/L 3.5-5.2 Chloride, Serum 90 mmol/L 96-106 Carbon Dioxide, Total 24 mmol/L 18-29 Calcium, Serum 9.9 mg/dL 8.7-10.3 Protein, Total, Serum 7.6 g/dL 6.0-8.5 Albumin, Serum 4.7 g/dL 3.6-4.8 Globulin, Total 2.9 g/dL 1.5-4.5 A/G Ratio 1.6 1.2-2.2 Bilirubin, Total <0.2 mg/dL 0.0-1.2 Alkaline Phosphatase, S 101 IU/L 39-117 AST (SGOT) 35 IU/L 0-40 ALT (SGPT) 20 IU/L 0-32 VITAMIN D, 25-H - 10/15/17 08:25 VITAMIN [...] 7-25 CREATININE 0.63 mg/dL 0.50-0.99 eGFR NON-AFR. YEMENI 96 mL/min/1.73m2 > OR = 60 eGFR [...] 10:04 VITAMIN D,25-OH,TOTAL,IA 53 ng/mL 30-10 0 Complete blood count (CBC) with automate d white blood cell (WBC) differential - 02/19/20 13:35 Blood leukocytes automated count (number/volume) 4.4 10*3/uL 4.3-11.0 Blood erythrocytes automated count (number/volume) 4.09 10*6/uL 4.35-5.85 Venous blood hemoglobin measurement (mass/volume) 12.0 g/dL 11.5-16.0 Blood hematocrit (volume fraction) 34 % 35-52 Automated erythrocyte mean corpuscular volume 84 [ foz_us] 80-99 Automated erythrocyte mean corpuscular h emoglobin (mass per erythrocyte) 29 pg 25-34 Automated erythrocyte mean corpuscular h emoglobin concentration measurement (mass/volume) 35 g/dL 32-36 Automated erythrocyte distribution width ratio 12. 9 % 10.0- 14.5 Automated blood platelet count (count/volume) 288 10*3/uL 130-400 Automated blood platelet mean volume measurement 9.1 [foz_us] 7.4-10.4 Automated blood neutrophils/100 leukocytes 49 % 42-75 Automated blood lymphocytes/100 leukocytes 37 % 12-44 Blood monocytes/100 leukocytes 13 % 0-12 Automated blood eosinophils/100 leukocytes 1 % 0-10 Automated blood basophils/100 leukocytes 1 % 0-10 Blood neutrophils automated count (number/volume) 2.1 10*3 1.8-7.8 Blood lymphocytes automated count (number/volume) 1.6 10*3 1.0-4.0 Blood monocytes automated count (number/volume) 0. 6 10*3 0.0-1.0 Automated eosinophil count 0.1 10*3/uL 0 .0-0.3 Automated blood basophil count (count/volume) 0.0 10*3/uL 0.0-0.1 Comprehensive metabolic panel - 02/19/20 13:35 Serum or plasma sodium measurement (moles/volume) 131 mmol/L 135-145 Serum or plasma potassium measurement (moles/volume) 4.4 mmol/L 3.6-5.0 Serum or plasma chloride measurement (moles/volume) 100 mmol/L 98-107 Carbon dioxide 19 mmol/L 21-32 Serum or plasma anion gap determination (moles/volume) 12 mmol/L 5-14 Serum or plasma urea nitrogen measurement (mass/volume ) 9 mg/dL 7-18 Serum or plasma creatinine measurement (mass/volume) 0.73 mg/dL 0.60-1.30 Serum or plasma urea nitrogen/creatinine mass ratio 12 NRG Serum or plasma creatinine measurement w ith calculation of estimated glomerular filtration rate > NRG Serum or plasma glucose measurement (mass/volume) 100 mg/dL 70-105 Serum or plasma calcium measurement (mass/volume) 9.3 mg/dL 8.5-10.1 Serum or plasma total bilirubin measurement (mass/volu me) 0.3 mg/dL 0.1-1.0 Serum or plasma alkaline phosphatase brittany surement (enzymatic activity/volume) 53 U/L 40-136 Serum or plasma aspartate aminotransfera se measurement (enzymatic activity/volume) 31 U/L 5-34 Serum or plasma alanine aminotransferase measurement (enzymatic activity/volume) 10 U/L 0-55 Serum or plasma protein measurement (mass/volume) 7.6 g/dL 6.4-8.2 Serum or plasma albumin measurement (mass/volume) 4.0 g/dL 3.2-4.5 CALCIUM CORRECTED 9.3 mg/dL 8.5-10.1 Serum or plasma troponin i.cardiac measu rement (mass/volume) - 02/19/20 13:35 Serum or plasma troponin i.cardiac measurement (mass/v olume) < ng/mL <0.028 Serum or plasma thyrotropin measurement by detection limit <=0.05 miu/l (units/volume) - 02/19/20 13:35 Serum or plasma thyrotropin measurement by detection limit <=0.05 miu/l (units/volume) 1.18 u[iU]/mL 0.35-4.94 Serum or plasma ethanol measurement (mas s/volume) - 02/19/20 13:35 Serum or plasma ethanol measurement (mass/volume) < mg/dL <10 Capillary blood glucose measurement by g lucometer (mass/volume) - 02/19/20 13:45 Capillary blood glucose measurement by glucometer (mas s/volume) 103 mg/dL 70-110 Complete urinalysis with reflex to cultu re - 02/19/20 13:55 Urine color determination YELLOW NRG Urine clarity determination CLEAR NR G Urine pH measurement by test strip 7.5 5-9 Specific gravity of urine by test strip 1.015 1.016-1.022 Urine protein assay by test strip, semi-quantitative TRACE NEGATIVE Urine glucose detection by automated test strip NE GATIVE NEGATIVE Erythrocytes detection in urine sediment by light micr oscopy NEGATIVE NEGATIVE Urine ketones detection by automated test strip NE GATIVE NEGATIVE Urine nitrite detection by test strip NEGATIVE NEGATIVE Urine total bilirubin detection by test strip NEGA TIVE NEGATIVE Urine urobilinogen measurement by automated test strip (mass/volume) 0.2 mg/dL < = 1.0 Urine leukocyte esterase detection by dipstick TRA CE NEGATIVE Automated urine sediment erythrocyte cou nt by microscopy (number/high power field) [HPF] NRG Automated urine sediment leukocyte count by microscopy (number/high power field) RARE NRG Bacteria detection in urine sediment by light microsco py NEGATIVE NRG Squamous epithelial cells detection in u rine sediment by light microscopy RARE NRG Crystals detection in urine sediment by light microsco py PRESENT NRG Casts detection in urine sediment by light microscopy NONE NRG Mucus detection in urine sediment by light microscopy SMALL NRG Complete urinalysis with reflex to culture NO NRG Amorphous sediment detection in urine sediment by ligh t microscopy FEW JEANCARLOS URATES NRG COVID-19 (QUEST) - 03/02/20 15:34 Complete blood count (CBC) with automate d white blood cell (WBC) differential - 03/05/20 09:25 Blood leukocytes automated count (number/volume) 4.1 10*3/uL 4.3-11.0 Blood erythrocytes automated count (number/volume) 3.85 10*6/uL 4.35-5.85 Venous blood hemoglobin measurement (mass/volume) 10.9 g/dL 11.5-16.0 Blood hematocrit (volume fraction) 33 % 35-52 Automated erythrocyte mean corpuscular volume 85 [ foz_us] 80-99 Automated erythrocyte mean corpuscular h emoglobin (mass per erythrocyte) 28 pg 25-34 Automated erythrocyte mean corpuscular h emoglobin concentration measurement (mass/volume) 33 g/dL 32-36 Automated erythrocyte distribution width ratio 12. 6 % 10.0- 14.5 Automated blood platelet count (count/volume) 398 10*3/uL 130-400 Automated blood platelet mean volume measurement 8.4 [foz_us] 7.4-10.4 Automated blood neutrophils/100 leukocytes 70 % 42-75 Automated blood lymphocytes/100 leukocytes 20 % 12-44 Blood monocytes/100 leukocytes 7 % 0-12 Automated blood eosinophils/100 leukocytes 3 % 0-10 Automated blood basophils/100 leukocytes 1 % 0-10 Blood neutrophils automated count (number/volume) 2.8 10*3 1.8-7.8 Blood lymphocytes automated count (number/volume) 0.8 10*3 1.0-4.0 Blood monocytes automated count (number/volume) 0. 3 10*3 0.0-1.0 Automated eosinophil count 0.1 10*3/uL 0 .0-0.3 Automated blood basophil count (count/volume) 0.0 10*3/uL 0.0-0.1 Comprehensive metabolic panel - 03/05/20 09:25 Serum or plasma sodium measurement (moles/volume) 134 mmol/L 135-145 Serum or plasma potassium measurement (moles/volume) 3.8 mmol/L 3.6-5.0 Serum or plasma chloride measurement (moles/volume) 99 mmol/L 98-107 Carbon dioxide 24 mmol/L 21-32 Serum or plasma anion gap determination (moles/volume) 11 mmol/L 5-14 Serum or plasma urea nitrogen measurement (mass/volume ) 11 mg/dL 7-18 Serum or plasma creatinine measurement (mass/volume) 0.73 mg/dL 0.60-1.30 Serum or plasma urea nitrogen/creatinine mass ratio 15 NRG Serum or plasma creatinine measurement w ith calculation of estimated glomerular filtration rate > NRG Serum or plasma glucose measurement (mass/volume) 91 mg/dL 70-105 Serum or plasma calcium measurement (mass/volume) 9.8 mg/dL 8.5-10.1 Serum or plasma total bilirubin measurement (mass/volu me) 0.3 mg/dL 0.1-1.0 Serum or plasma alkaline phosphatase brittany surement (enzymatic activity/volume) 60 U/L 40-136 Serum or plasma aspartate aminotransfera se measurement (enzymatic activity/volume) 31 U/L 5-34 Serum or plasma alanine aminotransferase measurement (enzymatic activity/volume) 11 U/L 0-55 Serum or plasma protein measurement (mass/volume) 7.9 g/dL 6.4-8.2 Serum or plasma albumin measurement (mass/volume) 4.0 g/dL 3.2-4.5 CALCIUM CORRECTED 9.8 mg/dL 8.5-10.1 Magnesium - 03/05/20 09:25 Magnesium 2.1 mg/dL 1.6-2.4 Complete urinalysis with reflex to cultu re - 03/05/20 10:30 Urine color determination YELLOW NRG Urine clarity determination CLEAR NR G Urine pH measurement by test strip 8.0 5-9 Specific gravity of urine by test strip 1.010 1.016-1.022 Urine protein assay by test strip, semi-quantitative NEGATIVE NEGATIVE Urine glucose detection by automated test strip NE GATIVE NEGATIVE Erythrocytes detection in urine sediment by light micr oscopy NEGATIVE NEGATIVE Urine ketones detection by automated test strip NE GATIVE NEGATIVE Urine nitrite detection by test strip NEGATIVE NEGATIVE Urine total bilirubin detection by test strip NEGA TIVE NEGATIVE Urine urobilinogen measurement by automated test strip (mass/volume) 0.2 mg/dL < = 1.0 Urine leukocyte esterase detection by dipstick NEG ATIVE NEGATIVE Automated urine sediment erythrocyte cou nt by microscopy (number/high power field) NONE NRG Automated urine sediment leukocyte count by microscopy (number/high power field) [HPF] NRG Bacteria detection in urine sediment by light microsco py FEW NRG Squamous epithelial cells detection in u rine sediment by light microscopy RARE NRG Crystals detection in urine sediment by light microsco py NONE NRG Casts detection in urine sediment by light microscopy NONE NRG Mucus detection in urine sediment by light microscopy NEGATIVE NRG Complete urinalysis with reflex to culture YES NRG Amorphous sediment detection in urine sediment by ligh t microscopy FEW JEANCALROS PHOSPHATE NRG Bacterial urine culture - 03/05/20 10:30 Bacterial urine culture NG NRG CMP - 03/13/20 08:21 GLUCOSE 88 mg/dL 65-99 UREA NITROGEN (BUN) 12 mg/dL 7-25 CREATININE 0.68 mg/dL 0.50-0.99 eGFR NON-AFR. YEMENI 93 mL/min/1.73m2 > OR = 60 eGFR 108 mL/min/1.73m2 > OR = 60 BUN/CREATININE RATIO NOT APPLICABLE (calc) 6-22 SODIUM 130 mmol/L 135-146 POTASSIUM 4.1 mmol/L 3.5-5.3 CHLORIDE 95 mmol/L 98-110 CARBON DIOXIDE 22 mmol/L 20-32 CALCIUM 9.5 mg/dL 8.6-10.4 PROTEIN, TOTAL 7.7 g/dL 6.1-8.1 ALBUMIN 4.1 g/dL 3.6-5.1 GLOBULIN 3.6 g/dL (calc) 1.9-3.7 ALBUMIN/GLOBULIN RATIO 1.1 (calc) 1.0-2. 5 BILIRUBIN, TOTAL 0.3 mg/dL 0.2-1.2 ALKALINE PHOSPHATASE 71 U/L 37-153 AST 32 U/L 10-35 ALT 12 U/L 6-29 CBC - 03/13/20 08:21 WHITE BLOOD CELL COUNT 7.6 Thousand/uL 3 .8-10.8 RED BLOOD CELL COUNT 4.02 Million/uL 3.8 0-5.10 HEMOGLOBIN 11.6 g/dL 11.7-15.5 HEMATOCRIT 34.5 % 35.0-45.0 MCV 85.8 fL 80.0-100.0 MCH 28.9 pg 27.0-33.0 MCHC 33.6 g/dL 32.0-36.0 RDW 12.5 % 11.0-15.0 PLATELET COUNT 381 Thousand/uL 140-400 MPV 9.4 fL 7.5-12.5 ABSOLUTE NEUTROPHILS 5700 cells/uL 1500- 7800 ABSOLUTE LYMPHOCYTES 1193 cells/uL 850-3 900 ABSOLUTE MONOCYTES 524 cells/uL 200-950 ABSOLUTE EOSINOPHILS 152 cells/uL 15-500 ABSOLUTE BASOPHILS 30 cells/uL 0-200 NEUTROPHILS 75 % NRG LYMPHOCYTES 15.7 % NRG MONOCYTES 6.9 % NRG EOSINOPHILS 2.0 % NRG BASOPHILS 0.4 % NRG CMP - 04/04/20 09:11 GLUCOSE 105 mg/dL 65-99 UREA NITROGEN (BUN) 15 mg/dL 7-25 CREATININE 0.55 mg/dL 0.50-0.99 eGFR NON-AFR. YEMENI 100 mL/min/1.73m2 > OR = 60 eGFR 116 mL/min/1.73m2 > OR = 60 BUN/CREATININE RATIO NOT APPLICABLE (calc) 6-22 SODIUM 129 mmol/L 135-146 POTASSIUM 4.2 mmol/L 3.5-5.3 CHLORIDE 97 mmol/L 98-110 CARBON DIOXIDE 23 mmol/L 20-32 CALCIUM 9.1 mg/dL 8.6-10.4 PROTEIN, TOTAL 6.9 g/dL 6.1-8.1 ALBUMIN 3.6 g/dL 3.6-5.1 GLOBULIN 3.3 g/dL (calc) 1.9-3.7 ALBUMIN/GLOBULIN RATIO 1.1 (calc) 1.0-2. 5 BILIRUBIN, TOTAL 0.4 mg/dL 0.2-1.2 ALKALINE PHOSPHATASE 67 U/L 37-153 AST 26 U/L 10-35 ALT 9 U/L 6-29 CBC - 04/04/20 09:11 WHITE BLOOD CELL COUNT 4.3 Thousand/uL 3 .8-10.8 RED BLOOD CELL COUNT 3.82 Million/uL 3.8 0-5.10 HEMOGLOBIN 10.7 g/dL 11.7-15.5 HEMATOCRIT 32.4 % 35.0-45.0 MCV 84.8 fL 80.0-100.0 MCH 28.0 pg 27.0-33.0 MCHC 33.0 g/dL 32.0-36.0 RDW 13.4 % 11.0-15.0 PLATELET COUNT 485 Thousand/uL 140-400 MPV 8.8 fL 7.5-12.5 ABSOLUTE NEUTROPHILS 2455 cells/uL 1500- 7800 ABSOLUTE LYMPHOCYTES 1135 cells/uL 850-3 900 ABSOLUTE MONOCYTES 507 cells/uL 200-950 ABSOLUTE EOSINOPHILS 163 cells/uL 15-500 ABSOLUTE BASOPHILS 39 cells/uL 0-200 NEUTROPHILS 57.1 % NRG LYMPHOCYTES 26.4 % NRG MONOCYTES 11.8 % NRG EOSINOPHILS 3.8 % NRG BASOPHILS 0.9 % NRG Complete blood count (CBC) with automate d white blood cell (WBC) differential - 04/22/20 13:10 Blood leukocytes automated count (number/volume) 5.9 10*3/uL 4.3-11.0 Blood erythrocytes automated count (number/volume) 3.74 10*6/uL 4.35-5.85 Venous blood hemoglobin measurement (mass/volume) 10.7 g/dL 11.5-16.0 Blood hematocrit (volume fraction) 31 % 35-52 Automated erythrocyte mean corpuscular volume 83 [ foz_us] 80-99 Automated erythrocyte mean corpuscular h emoglobin (mass per erythrocyte) 29 pg 25-34 Automated erythrocyte mean corpuscular h emoglobin concentration measurement (mass/volume) 34 g/dL 32-36 Automated erythrocyte distribution width ratio 14. 2 % 10.0- 14.5 Automated blood platelet count (count/volume) 376 10*3/uL 130-400 Automated blood platelet mean volume measurement 8.1 [foz_us] 7.4-10.4 Automated blood neutrophils/100 leukocytes 82 % 42-75 Automated blood lymphocytes/100 leukocytes 9 % 12-44 Blood monocytes/100 leukocytes 9 % 0-12 Automated blood eosinophils/100 leukocytes 0 % 0-10 Automated blood basophils/100 leukocytes 0 % 0-10 Blood neutrophils automated count (number/volume) 4.8 10*3 1.8-7.8 Blood lymphocytes automated count (number/volume) 0.5 10*3 1.0-4.0 Blood monocytes automated count (number/volume) 0. 5 10*3 0.0-1.0 Automated eosinophil count 0.0 10*3/uL 0 .0-0.3 Automated blood basophil count (count/volume) 0.0 10*3/uL 0.0-0.1 Comprehensive metabolic panel - 04/22/20 13:10 Serum or plasma sodium measurement (moles/volume) 127 mmol/L 135-145 Serum or plasma potassium measurement (moles/volume) 4.4 mmol/L 3.6-5.0 Serum or plasma chloride measurement (moles/volume) 94 mmol/L 98-107 Carbon dioxide 21 mmol/L 21-32 Serum or plasma anion gap determination (moles/volume) 12 mmol/L 5-14 Serum or plasma urea nitrogen measurement (mass/volume ) 9 mg/dL 7-18 Serum or plasma creatinine measurement (mass/volume) 0.62 mg/dL 0.60-1.30 Serum or plasma urea nitrogen/creatinine mass ratio 15 NRG Serum or plasma creatinine measurement w ith calculation of estimated glomerular filtration rate > NRG Serum or plasma glucose measurement (mass/volume) 118 mg/dL 70-105 Serum or plasma calcium measurement (mass/volume) 9.4 mg/dL 8.5-10.1 Serum or plasma total bilirubin measurement (mass/volu me) 0.3 mg/dL 0.1-1.0 Serum or plasma alkaline phosphatase brittany surement (enzymatic activity/volume) 57 U/L 40-136 Serum or plasma aspartate aminotransfera se measurement (enzymatic activity/volume) 29 U/L 5-34 Serum or plasma alanine aminotransferase measurement (enzymatic activity/volume) < U/L 0-55 Serum or plasma protein measurement (mass/volume) 7.6 g/dL 6.4-8.2 Serum or plasma albumin measurement (mass/volume) 4.0 g/dL 3.2-4.5 CALCIUM CORRECTED 9.4 mg/dL 8.5-10.1 PT panel in platelet poor plasma by coag ulation assay - 04/22/20 13:10 Prothrombin time (PT) in platelet poor plasma by coagu lation assay 11.8 s 12.2-14.7 INR in platelet poor plasma or blood by coagulation as say 0.8 0.8-1.4 Radiology Report from [facility] on 12/01/19 15:47:[address] [address] Mammography Report Signed Patient: Sherly Vale MR#: [id number] : 1955 Age/Sex: 63 / F ADM Date: 12/01/18 Loc: .BC DIS Date: = = = = = [...] = Date of Exam: 12/01/18 Ordering Provider: Richelle Donohue MD Type of Exam(s): MM screening venus BI w/praneeth Reason for Exam(s): mammo screening #[id number] - MM SCREENING VENUS BI W/PRANEETH BILATERAL DIGITAL SCREENING MAMMOGRAM 3D/2D WITH CAD: 12/01/2018 CLINICAL: Z12.31-Encounter for screening mammogram. Digital Breast Tomosynthesis was performed. Current study was also evaluated with a Computer Aided Detection (CAD) system. Comparison is made to exams dated: 07/26/2016 mammogram - [facility] [place] [facility], 06/08/2015 mammogram, 05/31/2015 mammogram, and 05/06/2014 mammogram - [facility]. The tissue of both breasts is extremely dense, which lowers the sensitivity of mammography. No significant masses, calcifications, or other findings are seen in either breast. IMPRESSION: NEGATIVE There is no mammographic evidence of malignancy. A 1 year screening mammogram is recommended. The patient was notified of the results. Dr. Joseph Milan [facility]/:12/01/2018 15:29:52 Clinical Services Professional: Seema Trivedi (R)(M), [facility]#39;s [place] [facility] letter sent: Normal/Benign Category 1/2 BI-RADS: 1 Negative Radiology Report from HARRIET on 12/16/19 12:11:00 [facility] [place] [address] Mammography Report Signed Patient: Sherly Vale MR#: [id number] : 1955 Age/Sex: 64 / F ADM Date: 12/16/19 Loc: [facility] DIS Date: = = = = = [...] = = = = Date of Exam: 12/16/19 Ordering Provider: Richelle Donohue MD Type of Exam(s): MM screening venus BI w/praneeth Reason for Exam(s): screening mammo #[id number] - MM SCREENING VENUS BI W/PRANEETH BILATERAL DIGITAL SCREENING MAMMOGRAM 3D/2D WITH CAD: 12/16/2019 CLINICAL: Z12.31-Encounter for screening mammogram. Digital Breast Tomosynthesis was performed. Current study was also evaluated with a Computer Aided Detection (CAD) system. Comparison is made to exams dated: 12/01/2018 mammogram and 07/26/2016 [facility]. The tissue of both breasts is extremely dense, which lowers the sensitivity of mammography. No significant masses, calcifications, or other findings are seen in either breast. IMPRESSION: NEGATIVE There is no mammographic evidence of malignancy. A 1 year screening mammogram is recommended. The patient was notified of the results. Dr. Joseph Milan rd/malena:12/16/2019 11:22:58 Clinical Services Professional(s): RT Clarita(R)(M), [facility] letter sent: Normal/Benign Category 1/2 BI-RADS: 1 Negative Encounters ACCT No. Visit Date/Time Discharge Status Pt. Type Provider Facility Loc./Unit Complaint [id number] 01/23/2017 11:09:00 Document Registration [id number] 05/08/2017 12:09:00 Document Registration [id number] 06/13/2017 07:06:00 Document Registration [id number] 05/15/2017 07:05:00 Document Registration [id number] 04/22/2020 13:06:00 15:18:00 DIS Outpatient HUSEYIN SOLIMAN APRN [facility] ER BLOOD IN STOOL / WEAKNE SS [id number] 03/16/2020 07:39:00 23:59:59 CLS Outpatient JOSE HENDERSON APRN [facility] RAD FREQUENT FALLS [id number] 03/05/2020 09:01:00 11:11:00 DIS Emergency NIKIA BUCK, ZENY Hwang [facility] ER FALL [id number] 02/19/2020 13:28:00 15:12:00 DIS Emergency MIKE CALDERON [facility] ER SYNCOPE [id number] 06/09/2018 06:59:00 018 10:34:00 DIS Outpatient ISABELLE OLSEN DO [facility] ENDO SCREENING [id number] 06/02/2018 05:35:00 07/24/2 018 23:59:59 CLS Outpatient ISABELLE OLSEN DO [facility] PREOP COLONOSCOPY [id number] 05/05/2018 16:03:00 018 23:59:59 CLS Outpatient UMA JOLANTA Tasia WIPER BLENDER [facility] RAD VASOVAGAL SYNCO PE [id number] 01/23/2018 10:54:00 018 11:51:00 DIS Outpatient KATHLEEN UREÑA WIPER BLENDER [facility] REHAB S/P L TKR [id number] 08/21/2017 10:00:00 11:54:00 DIS [facility] [id number] 08/06/2017 09:10:00 017 00:01:00 DIS Outpatient KAREN MARY MD [facility] REHAB S/P T-9-PELVIS PSF [id number] 04/15/2017 11:45:00 017 09:09:00 DIS Inpatient ISABELLE PHAN MD [facility] IRF SCOLIOSIS [id number] 04/11/2017 07:32:00 017 11:45:00 DIS Inpatient KAREN MARY MD [facility] 4TH SCOLIOSIS [id number] 04/03/2017 14:11:00 017 14:45:00 DIS Outpatient KAREN MARY MD [facility] PREOP SCOLIOSIS [id number] 03/06/2017 15:32:00 017 23:59:59 CLS Outpatient KAREN MARY MD [facility] RAD NECK PAIN, SCOLIOSIS,LO W BACK PAIN [id number] 03/05/2017 15:35:00 017 23:59:59 CLS Outpatient KAREN MARY MD [facility] RAD NECK PAIN, SCOLIOSIS,LO W BACK PAIN [id number] 01/22/2017 09:45:00 017 23:59:59 CLS Outpatient ESTELLA SOTOMAYOR 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 [facility] RAD TREMOR OF UNKNOWN ORIGI N,PAIN IN HIP,SCOLIOSIS [id number] 02/09/2015 15:52:00 015 17:25:00 DIS Emergency SOLIMANHUSEYIN APRN [facility] ER ANAL LEAKAGE [id number] 07/30/2013 08:33:00 23:59:59 CLS Outpatient ANGE PARNELL MD [facility] RAD KYPHOSCOLIOSIS [id number] 04/20/2013 07:32:00 23:59:59 CLS Outpatient ANGE PARNELL MD [facility] RAD ABN MAMMO [id number] 03/31/2013 10:24:00 23:59:59 CLS Outpatient ANGE PARNELL MD [facility] RAD SCREENING [id number] 02/12/2013 14:00:00 15:01:00 DIS Outpatient ANGE PARNELL MD [facility] REHAB CHRONIC BACK PA IN, SEVERE SCOLIOSIS [id number] 12/02/2012 08:07:00 Document Registration [id number] 05/16/2012 02:50:00 Document Registration [id number] 04/10/2020 09:00:00 04/10/2020 23:59:5 9 CLS Outpatient JOSE HENDERSON [facility] [id number] 04/04/2020 08:30:00 Document Registration [id number] 03/13/2020 09:00:00 Document Registration [id number] 03/02/2020 14:40:00 Document Registration [id number] 07/27/2019 09:20:00 Document Registration [id number] 04/13/2019 10:20:00 Document Registration [id number] 10/02/2018 09:40:00 Document Registration [id number] 05/05/2018 14:40:00 Document Registration [id number] 02/03/2018 10:40:00 Document Registration [id number] 10/15/2017 08:00:00 Document Registration [id number] 02/13/2015 08:54:00 02/13/2015 23:59: 59 CLS Outpatient ESTELLA SOTOMAYOR APRN [id number] 01/16/2015 00:00:00 01/16/2015 23:59: 59 CLS Outpatient KALYAN WIN DDS Devonte [id number] 09/19/2014 08:09:00 09/19/2014 23:59: 59 CLS Outpatient AURELIA SPIVEY DO [id number] 05/27/2014 09:33:00 05/27/2014 23:59: 59 CLS Outpatient ESTELLA SOTOMAYOR APRN Cheryl [id number] 04/27/2014 13:44:00 04/27/2014 23:59: 59 CLS Outpatient AURELIA SPIVEY DO Braulio [id number] 12/17/2013 08:39:00 12/17/2013 23:59: 59 CLS Outpatient ANGE PARNELL MD [id number] 11/16/2013 09:06:00 11/16/2013 23:59: 59 CLS Outpatient DIGNA SANCHEZ MD [id number] 11/05/2013 09:52:00 11/05/2013 23:59: 59 CLS Outpatient DIGNA SANCHEZ MD [id number] 09/07/2013 17:14:00 09/07/2013 23:59: 59 CLS Outpatient AGUSTIN SPIVEY DOAbdullahi Ramsey [id number] 09/02/2013 08:52:00 09/02/2013 23:59: 59 CLS Outpatient MIKE PEREZ PSYD [id number] 07/01/2013 15:48:00 07/01/2013 23:59: 59 CLS Outpatient ANGE PARNELL MD [id number] 02/03/2013 08:46:00 02/03/2013 23:59: 59 CLS Outpatient MIKE PEREZ PSYD [id number] 01/28/2013 10:39:00 01/28/2013 23:59: 59 CLS Outpatient [id number] 01/21/2013 08:17:00 01/21/2013 23:59: 59 CLS Outpatient ANGE PARNELL MD [id number] 01/05/2013 08:36:00 01/05/2013 23:59: 59 CLS Outpatient [id number] 12/25/2012 08:44:00 12/25/2012 23:59: 59 CLS Outpatient DIGNA SANCHEZ MD [id number] 12/22/2012 10:23:00 12/22/2012 23:59: 59 CLS Outpatient [id number] 12/07/2012 07:51:00 12/07/2012 23:59: 59 CLS Outpatient MIKE PEREZ PSYD [id number] 11/24/2012 10:41:00 11/24/2012 23:59: 59 CLS Outpatient [id number] 03/30/2013 09:20:00 Document Registration [id number] 03/24/2013 09:31:00 Document Registration [id number] 03/04/2013 09:42:00 Document Registration [id number] 12/16/2019 07:42:00 020 07:43:00 DIS Outpatient JAYDE BUCK, RICHELLE GARZA.BC screening mammo [id number] 12/01/2018 14:50:00 14:51:00 DIS Outpatient RICHELLE DONOHUE MD.BC mammo screening [id number] 11/23/2018 07:09:00 019 09:51:00 DIS Outpatient ZULEIKA BUCK, JD Jackson [facility] Personal hx adenomatous poly ps [id number] 07/26/2016 14:43:00 016 23:59:59 CLS Outpatient AKRON [facility] WC. [id number] 08/30/2015 12:45:23 Document Registration [id number] 06/20/2016 14:20:00 016 23:59:00 DIS Outpatient Richelle Donohue V [facility] New TCPA wellness exam [id number] 05/26/2015 12:38:00 015 23:59:00 DIS Outpatient Richelle Donohue V [facility] New FM cpe [id number] 06/26/2015 12:36:00 Document Registration [id number] 10/18/2016 08:07:00 Document Registration
[2020-04-30 12:35] LABS: BASOPHILS % (AUTO) 1 % (0-10); EOSINOPHILS % (AUTO) 1 % (0-10); HEMATOCRIT 33 % (35-52); HEMOGLOBIN 11.5 G/DL (11.5-16.0); LYMPHOCYTES % (AUTO) 22 % (12-44); MEAN CORPUSCULAR HEMOGLOBIN 28 PG (25-34); MEAN CORPUSCULAR HGB CONC 35 G/DL (32-36); MEAN CORPUSCULAR VOLUME 82 FL (80-99); MEAN PLATELET VOLUME 8.1 FL (7.4-10.4); MONOCYTES # (AUTO) 0.6 X 10^3 (0.0-1.0); MONOCYTES % (AUTO) 14 % (0-12); NEUTROPHILS # (AUTO) 2.8 X 10^3 (1.8-7.8); NEUTROPHILS % (AUTO) 63 % (42-75); PLATELET COUNT 434 10^3/uL (130-400); RED CELL DISTRIBUTION WIDTH 13.9 % (10.0-14.5); WHITE BLOOD COUNT 4.4 10^3/uL (4.3-11.0)
--- NOTE | 2020-04-30 12:37 | ED General ---
General Chief Complaint: General Problems/Pain Stated Complaint: HX PARKINSONS/STIFF Nursing Triage Note: PT PRESENTS TO ED VIA EMS WITH COMPLAINTS OF DECREASED MOBILITY AND GENERALIZED WEAKNESS. PT REPORTS HER PARKINSONS STARTED FLAIRING UP 2 DAYS AGO. Nursing Sepsis Screen: No Definite Risk Source of Information: Patient Exam Limitations: No Limitations History of Present Illness Date Seen by Provider: Apr 30, 2020 Time Seen by Provider: 12:34 Initial Comments To ER with reports of decreased mobility and an increase in the degree of tremor since last night. She otherwise feels fine. She is on primidone 50 mg per day for treatment of familial essential tremor. Timing/Duration: 1-2 Days Severity: Moderate Associated Systoms: Denies Symptoms Allergies and Home Medications Allergies Coded Allergies: Penicillins (Verified Allergy, Unknown, 06/02/18) alendronate sodium (Verified Allergy, Unknown, 06/02/18) bacitracin (Verified Allergy, Unknown, 06/02/18) lactose (Verified Allergy, Unknown, 06/02/18) neomycin (Verified Allergy, Unknown, 06/02/18) polymyxin B (Verified Allergy, Unknown, 06/02/18) raloxifene (Verified Allergy, Unknown, leg swelling, 06/02/18) Home Medications Calcium Carbonate 600 Mg Tablet, 600 MG PO BID, (Reported) Cholecalciferol (Vitamin D3) 1,000 Unit Tablet, 1,000 UNIT PO BID, (Reported) Cyanocobalamin (Vitamin B-12) 2,500 Mcg Tablet, 2,500 MCG PO DAILY, (Reported) Docusate Sodium 100 Mg Capsule, 100 MG PO DAILY Prescribed by: HUSEYIN SOLIMAN on 04/22/20 1407 Ferrous Sulfate, Dried 159 Mg Tablet.er, 159 MG PO DAILY, (Reported) Fluoxetine HCl 20 Mg Capsule, 20 MG PO DAILY, (Reported) Lorazepam 0.5 Mg Tablet, 0.5 MG PO HS, (Reported) Na Phos,M-B/Na Phos,Di-Ba 133 Ml Enema, 133 ML RC ONCE Prescribed by: HUSEYIN SOLIMAN on 04/22/20 1500 [place]-3 Fatty Acids 1,000 Mg Capsule, 1,000 MG PO DAILY, (Reported) Polyethylene Glycol 3350 17 Gm Powd.pack, 17 GM PO BID Prescribed by: HUSEYIN SOLIMAN on 04/22/20 1442 Primidone 50 Mg Tablet, 25 MG PO HS Prescribed by: ZENY DUBOSE on 03/05/20 1030 Tramadol HCl 50 Mg Tablet, 50 MG PO PRN, (Reported) Patient Home Medication List Home Medication List Reviewed: Yes Review of Systems Review of Systems Constitutional: see HPI EENTM: see HPI Respiratory: no symptoms reported Cardiovascular: no symptoms reported Genitourinary: no symptoms reported Musculoskeletal: see HPI Skin: no symptoms reported Psychiatric/Neurological: No Symptoms Reported Hematologic/Lymphatic: No Symptoms Reported Past Ctivbjo-Cfyslq-Mpgaou Hx Patient Social History Alcohol Use: Past History Recreational Drug Use: Yes (ALCOHOLISM) Smoking Status: Former Smoker Type Used: Cigarettes Former Smoker, Quit: Jun 02, 2013 2nd Hand Smoke Exposure: No Recent Foreign Travel: No Contact w/Someone Who Travel: No Recent Infectious Disease Expo: No Recent Hopitalizations: No Physical Abuse: No Sexual Abuse: No Mistreated: No Fear: No Seasonal Allergies Seasonal Allergies: No Past Medical History Surgeries: Yes (jaw resection, Left knee scope, SPINE, L TKR) Respiratory: No Cardiac: No Syncope Neurological: Yes (ESSENTIAL TREMORS) Parkinson's Disease Reproductive Disorders: No Sexually Transmitted Disease: No HIV/AIDS: No Genitourinary: No Gastrointestinal: No Musculoskeletal: Yes Scoliosis, Chronic Back Pain Endocrine: No HEENT: No (dentures) Loss of Vision: Bilateral Hearing Impairment: Denies Cancer: No Psychosocial: Yes Anxiety, Depression Integumentary: No Blood Disorders: Yes (ANEMIA) Adverse Reaction/Blood Tranf: No (N/A) Family Medical History Cardiovascular disease 19 MOTHER Diabetes mellitus 19 MOTHER Hypertension 19 MOTHER Myocardial infarction 19 MOTHER Psychosocial problem 19 FATHER 19 MOTHER G8 SISTER Diabetes, Hypertension Physical Exam Vital Signs Vital Signs - First Documented 04/30/20 12:16 Temp 36.7 Pulse 95 Resp 20 Pulse Ox 98 Capillary Refill : Less Than 3 Seconds Height, Weight, BMI Height: 5'2.00" Weight: 98lbs. 8.0oz. 44.899847vf; 17.00 BMI Method:Estimated General Appearance: No Apparent Distress, WD/WN, Thin, Other (very pronounced essential tremor) Eyes: Bilateral Eye Normal Inspection, Bilateral Eye PERRL, Bilateral Eye EOMI HEENT: PERRL/EOMI, TMs Normal Respiratory: No Accessory Muscle Use, No Respiratory Distress Gastrointestinal: Non Tender, Soft Extremity: Normal Capillary Refill, Normal Inspection Neurologic/Psychiatric: Alert, Oriented x3 Skin: Normal Color, Warm/Dry Progress/Results/Core Measures Suspected Sepsis Recent Fever Within 48 Hours: No Infection Criteria Present: None New/Unexplained Altered Menta: No Sepsis Screen: No Definite Risk SIRS Temperature: Pulse: 95 Respiratory Rate: 20 Laboratory Tests 04/30/20 12:10: White Blood Count 4.4 Blood Pressure / Mean: Laboratory Tests 04/30/20 12:10: Creatinine 0.60, Platelet Count 434H, Total Bilirubin 0.4 Results/Orders Lab Results Laboratory Tests Test 04/30/20 12:10 04/30/20 12:40 Range/Units White Blood Count 4.4 4.3-11.0 10^3/uL Red Blood Count 4.05 L 4.35-5.85 10^6/uL Hemoglobin 11.5 11.5-16.0 G/DL Hematocrit 33 L 35-52 % Mean Corpuscular Volume 82 80-99 FL Mean Corpuscular Hemoglobin 28 25-34 PG Mean Corpuscular Hemoglobin Concent 35 32-36 G/DL Red Cell Distribution Width 13.9 10.0-14.5 % Platelet Count 434 H 130-400 10^3/uL Mean Platelet Volume 8.1 7.4-10.4 FL Neutrophils (%) (Auto) 63 42-75 % Lymphocytes (%) (Auto) 22 12-44 % Monocytes (%) (Auto) 14 H 0-12 % Eosinophils (%) (Auto) 1 0-10 % Basophils (%) (Auto) 1 0-10 % Neutrophils # (Auto) 2.8 1.8-7.8 X 10^3 Lymphocytes # (Auto) 1.0 1.0-4.0 X 10^3 Monocytes # (Auto) 0.6 0.0-1.0 X 10^3 Eosinophils # (Auto) 0.0 0.0-0.3 10^3/uL Basophils # (Auto) 0.0 0.0-0.1 10^3/uL Sodium Level 121 *L 135-145 MMOL/L Potassium Level 4.0 3.6-5.0 MMOL/L Chloride Level 90 L 98-107 MMOL/L Carbon Dioxide Level 20 L 21-32 MMOL/L Anion Gap 11 5-14 MMOL/L Blood Urea Nitrogen 8 7-18 MG/DL Creatinine 0.60 0.60-1.30 MG/DL Estimat Glomerular Filtration Rate > 60 BUN/Creatinine Ratio 13 Glucose Level 93 70-105 MG/DL Calcium Level 9.3 8.5-10.1 MG/DL Corrected Calcium 9.3 8.5-10.1 MG/DL Total Bilirubin 0.4 0.1-1.0 MG/DL Aspartate Amino Transf (AST/SGOT) 50 H 5-34 U/L Alanine Aminotransferase (ALT/SGPT) 10 0-55 U/L Alkaline Phosphatase 59 40-136 U/L Total Protein 7.8 6.4-8.2 GM/DL Albumin 4.0 3.2-4.5 GM/DL Urine Color YELLOW Urine Clarity CLEAR Urine pH 7.0 5-9 Urine Specific [place] 1.015 L 1.016-1.022 Urine Protein NEGATIVE NEGATIVE Urine Glucose (UA) NEGATIVE NEGATIVE Urine Ketones 2+ H NEGATIVE Urine Nitrite NEGATIVE NEGATIVE Urine Bilirubin NEGATIVE NEGATIVE Urine Urobilinogen 0.2 < = 1.0 MG/DL Urine Leukocyte Esterase NEGATIVE NEGATIVE Urine RBC (Auto) TRACE-I NEGATIVE Urine RBC RARE /HPF Urine WBC NONE /HPF Urine Squamous Epithelial Cells NONE /HPF Urine Crystals NONE /LPF Urine Amorphous Sediment LARGE JEANCARLOS URATES H /LPF Urine Bacteria NEGATIVE /HPF Urine Casts NONE /LPF Urine Mucus NEGATIVE /LPF Urine Culture Indicated NO My Orders Orders - HUSEYIN SOLIMAN APRN Cbc With Automated Diff (04/30/20 12:29) Comprehensive Metabolic Panel (04/30/20 12:29) Ua Culture If Indicated (04/30/20 12:29) Chest 1 View, Ap/Pa Only (04/30/20 12:29) Primidone Tablet (Mysoline Tablet) (04/30/20 12:45) Propranolol Tablet (Inderal Tablet) (04/30/20 12:45) Medications Given in ED Current Medications Medications Dose Ordered Sig/Cristi Route Start Time Stop Time Status Last Admin Dose Admin Primidone 50 mg ONCE ONCE PO 04/30/20 12:45 04/30/20 12:46 DC 04/30/20 12:45 50 MG Propranolol HCl 10 mg ONCE ONCE PO 04/30/20 12:45 04/30/20 12:46 DC 04/30/20 12:45 10 MG Vital Signs/I&O 04/30/20 12:16 Temp 36.7 Pulse 95 Resp 20 B/P (MAP) Pulse Ox 98 Capillary Refill : Less Than 3 Seconds Departure Communication (Admissions) Time/Spoke to Admitting Phy: 13:[address] Mckeon, will admit, limit her dietary fluids to less than 800 cc per day, hydrate with normal saline, continue home medications. It looks like she's only on primidone 50 mg per day, give her an extra primidone tablet as well as a propranolol 10 mg tablet. 1321*-she is hypertensive blood pressure about 30 minutes after the propranolol is 168/100. I will give her an additional 10 mg of propranolol. Her tremor does seem a little better after the propranolol/extra primidone. I discussed the low sodium with her, she states that she drinks quite a bit of water at home, upwards of 5 bottles per day. I asked her about CODE STATUS. If her heart stops does she want CPR or does she want us to let her go she states "let me go". Knowing this we will make her a DO NOT RESUSCITATE status. Impression Primary Impression: Hyponatremia Additional Impression: familial essential tremor exacerbation Disposition: ADMITTED INPATIENT Condition: Stable Admissions Decision to Admit Reason: Admit from ER (General) Decision to Admit/Date: Apr 30, 2020 Time/Decision to Admit Time: 13:17 Departure-Patient Inst. Referrals: [facility] (PCP) Primary Care Physician JOSE HENDERSON APRN (Family) Primary Care Physician HUSEYIN SOLIMAN APRN Apr 30, 2020 12:36
[2020-04-30 12:39] LABS: CHLORIDE 90 MMOL/L (98-107)
[2020-04-30 12:40] LABS: CALCIUM 9.3 MG/DL (8.5-10.1)
[2020-04-30 12:41] LABS: GLUCOSE 93 MG/DL (70-105); TOTAL PROTEIN 7.8 GM/DL (6.4-8.2)
[2020-04-30 12:43] LABS: BILIRUBIN,TOTAL 0.4 MG/DL (0.1-1.0); CARBON DIOXIDE 20 MMOL/L (21-32)
[2020-04-30 12:45] LABS: ALKALINE PHOSPHATASE 59 U/L (40-136); GFR ESTIMATED > 60
[2020-04-30] MEDS ORDERED: PROPRANOLOL 20 MG (INDERAL) TABLET PO ONE ×3 (12:45→14:00)
[2020-04-30] MEDS ORDERED: PRIMIDONE 50 MG TAB (MYSOLINE) PO ONE (12:45)
[2020-04-30 12:46] LABS: BUN/CREATININE RATIO 13
[2020-04-30 12:48] LABS: ALANINE AMINOTRANSFERASE 10 U/L (0-55)
[2020-04-30 12:50] LABS: SODIUM 121 MMOL/L (135-145)
[2020-04-30 12:51] LABS: BILIRUBIN,URINE NEGATIVE (NEGATIVE); CLARITY,URINE CLEAR; COLOR,URINE YELLOW; GLUCOSE, URINE (UA) NEGATIVE (NEGATIVE); KETONES,URINE 2+ (NEGATIVE); LEUKOCYTE ESTERASE ,URINE NEGATIVE (NEGATIVE); NITRITE,URINE NEGATIVE (NEGATIVE); PROTEIN,URINE NEGATIVE (NEGATIVE)
[2020-04-30 13:01] LABS: AMORPHOUS SEDIMENT,UR LARGE AMOR URATES /LPF; BACTERIA,URINE NEGATIVE /HPF; RBC,URINE RARE /HPF
--- NOTE | 2020-04-30 13:10 | Diagnostic Imaging Report ---
CLINICAL INDICATION: Patient weakness, increased trouble with Parkinson's for a few days. EXAM: Portable chest x-ray upright view. COMPARISONS: Chest x-ray dated 02/19/2020. FINDINGS: Lungs/pleura: There is linear opacities overlying the left lung field region which may be outside the patient. Lungs are clear. There is no pneumothorax. There is no pleural effusion. Mediastinum: Unremarkable. Pulmonary vasculature: Unremarkable. Heart: Unremarkable. Bones/extrathoracic soft tissue: Posterior spinal fusion hardware involving the thoracolumbar spine is partially visualized and also noted on the prior study.. IMPRESSION: There is no radiographic evidence of acute cardiopulmonary process. Dictated by: Dictated on workstation # [id number]
--- OUTSIDE RECORDS SUMMARY | 2020-04-30 14:09 | XMS REPORT ---
Author Author [employer] endbander [facility] [place] + [facility] [place] Address [address] [address] Care Team Providers Care Data Acquisition Technician Name Role Phone Piter Dupree V Unavailable ENEIDA BEJARANO Unavailable Unavailable MADL, ESTELLA Unavailable Unavailable AURELIA SPIVEY Unavailable KALYAN WIN Unavailable Unavailable [facility] Unavailable [phone] ANGE PARNELL Unavailable MADL, ESTELLA Unavailable MADL, [...] Unavailable JOLANTA Hendrix Unavailable MADL, ESTELLA L SOIL CHEMIST Unavailable Unavailable PEPE HendrixELE Unavailable MADL, ESTELLA [...] NIKIA BUCK, ZENY Hwang Unavailable Unavailable BEATRIZ VP STRATEGIC PLANNING, JOSE D Unavailable Unavailable Migration, Doctor Unavailable [...] information no name Not Available sources.) Allergies (30140) Translations: [ NKMA] DA (20 Unclassified No Known Drug 05-16-2012 - no information ANGE Not Available sources.) Allergies MD PARMJIT (09729) DANIEL (20 Unclassified polymyxin B 04-03-2017 - no information no name [facility] Via sources.) [facility] ([address]) Medications Current Medications Medication Ingredient Drug Dose [...] Active no Docosahexae no 11-23-19 no no [place]-3/Dha/ (n o information noate / information 19 informat information Epa/ Fish Oil phone) (10 Eicosapenta ion [Fish Oil sources.) enoate / 1,000 Mg Vitamin E Softgel] 2 EACH PO Daily November 23, 2018 Active 11-23-2018 no no [place]-3/ (no information inform Dha/Epa/ phone) ation Fish Oil 2 EACH PO Daily November 23, 2018 Active 11-23-2018 Active no [place]-3/ no name inform Dha/Epa/ ation Fish Oil [...] Ea Oral Oral Daily@0700 04/22/17 Discontinued no [place]-3 no 1000 Complete take 1 [place]-3 (no information Fatty Acids information mg d capsule by Fatt y Acids phone) (1 source.) ([place]-3) mouth once ([place]-3) 1,000 Mg daily, then 1,000 Mg Capsule [...] SANTOS , Not Avail able posthemorrhagi posthemorrhagi (56584) c anemia (7 c anemia sources.) NEGATED Aftercare Chronic Active LEONIDES Not Availabl e no following JAMESON , DO (19870) information joint (18 sources.) replacement surgery Allergic Allergy status 03-28-2020 - Episodic Active ALEXANDRIA RAMOS Via reactions (16 to penicillin SOIL CHEMIST Latoya sources.) Translations: Hospital - [ ALLERGY [place] STATUS TO OTH (81526) DRUG/MEDS/BIOL SUB] Deficiency and Anemia, 03-28-2020 - Episodic Active ISABELLE JACKSON , Not Available other anemia unspecified (89895) (20 sources.) Translations: [ - Postoperative anemia D64.9, - Postoperative anemia D64.9, - Low hemoglobin D64.9] Other Arthrodesis Episodic Active KAREN DE LOS SANTOS , Not Av ailable connective status (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) tissue disease Translations: (20 sources.) [ - History of spinal fusion for scoliosis Z98.1, - History of spinal fusion for scoliosis Z98.1] Other Care involving Episodic Active ANGE Not Juliette ilable aftercare (7 other physical MD PARMJIT (54837) sources.) therapy Coma; stupor; Coma scale, 03-28-2020 - Episodic Active ZENY [facility] Via and brain eyes open, Latoya MONTEJO damage (12 spontaneousMD Hospital - sources.) at arrival to [place] emergency (22241) department Translations: [ COMA SCALE, BEST VERBAL RESPONSE, ORIENT, COMA SCALE, BEST MOTOR RESPONSE, OBEYS C] Other Constipation, Episodic Active HUSEYIN SOLIMAN Not Av ailable gastrointestin unspecified (11328) al disorders (7 sources.) Residual Do not Episodic Active ISABELLE ZULUAGA , Not Avail able codes; resuscitate (34984) unclassified (5 sources.) Other Encounter for Episodic Active ISABELLE ZULUAGA , Not Available aftercare (5 orthopedic MD (70040) sources.) aftercare following scoliosis surgery Other Encounter for Episodic Active KAREN DE LOS SANTOS , Not Available aftercare (15 other MD (75521) sources.) orthopedic aftercare Immunizations Encounter for Episodic Active KAREN IPSEN , Not Available and screening screening for MD (34168) for infectious other disease (6 bacterial sources.) diseases Translations: [ ENCOUNTER FOR IMMUNIZATION] External cause Fall in (into) 03-28-2020 - Episodic Active NANY MARLENY [facility] Via codes: Fall (4 shower or Latoya MONTEJO sources.) empty MD [facility] - initial [place] encounter (58614) Residual Family history 03-28-2020 - Episodic Active ZENY [facility] Via codes; of ischemic Latoya MONTEJO unclassified heart disease Hospital - (4 sources.) and other [place] diseases of (87343) the circulatory system Other Hypotension, Episodic Active KAREN DE LOS SANTOS , Not A vailable circulatory unspecified (95009) disease (7 sources.) Other Other Episodic Active ISABELLE ZULUAGA , Not Avail able gastrointestin constipation (89142) al disorders (3 sources.) Other acquired Other forms of Chronic Active KAREN IPSEN , Not Available deformities (4 scoliosis, (90489) sources.) thoracolumbar region NEGATED Other Episodic Active no name [facility] Via no hemorrhoids [place] information (2 Hospital - sources.) [place] (76098) Other Pain in left Episodic Active ESTELLA MADL Not Juliette ilable non-traumatic hip (04620) joint Translations: disorders (20 [ - Pain in sources.) left hip M25.552, - Pain in left hip M25.552] Screening and Personal 03-28-2020 - Episodic Active MIKE KVNG , [facility] Via history of history of [facility] nicotine Hospital - and substance dependence [place] abuse codes (8 (99978) sources.) Other 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-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 MIKE KVNG , [facility] Via connective left [facility] tissue disease [facility] Hospital - (22 sources.) knee joint [place] (84786) Spondylosis; Spinal Chronic Active KAREN IPSEN , Not Av ailable intervertebral stenosisMD (90698) disc lumbar region disorders; Translations: other back [ SPONDYLOSIS problems (25 W/O MYELOPATHY sources.) OR RADICULOPA, OTHER INTERVERTEBRAL DISC DEGENERATION, , SPONDYLOSIS W/O MYELOPATHY OR RADICULOPA, SPONDYLOSIS W/O MYELOPATHY OR RADICULOPA, OTHER 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, SPONDYLS W/O MYELOPATHY OR RADICULOPATHY] Syncope (20 Syncope and Episodic Active KAREN IPSEN , Not Available sources.) collapse (24386) Translations: [ - Vasovagal syncope R55, - Vasovagal syncope R55] Other acquired Thoracogenic Chronic Active KAREN IPSEN , Not Available deformities (7 scoliosis, (65142) sources.) thoracic region Other nervous Tremor, Episodic Active ESTELLA MADL Not Juliette ilable system unspecified (96844) disorders (20 Translations: sources.) [ - Tremor of unknown origin R25.1, - Tremor of unknown origin R25.1] External cause Unspecified 03-28-2020 - Episodic Active ZENY [facility] Via codes: Place place in [facility] of occurrence unspecified [facility] - (4 sources[facility] residence as the place of occurrence of the external cause Unclassified no information no information Active AURELIA SPIVEY Via [place] (1 source.) [address] [facility] (03282) Past or Other Problems Problem Normalized Date Last Normalized Normalized Provider Fa cility Classification Problem(s) Recorded Problem Problem Sta tus Duration Abdominal pain Abdominal Episodic Completed Loli HEREDIA t Available (4 sources.) pain, other (22571) specified site External cause Accident no information no information KYRA PEREZ , Not Available codes: caused by (61906) Natural/enviro excessive heat nment (2 due to weather sources.) conditions Other and Benign Episodic Completed no name Not Available unspecified neoplasm, (27700) benign unspecified neoplasm (1 site source.) Other skin Epidermal cyst Episodic Completed no name Not Av ailable disorders (1 (54533) source.) Other injuries Heat Episodic Completed KYRA BROUSSARD , Not Available and conditions exhaustion, (00627) due to unspecified external causes (2 sources.) External cause Home accidents no information no information Eri BROUSSARD Not Available codes: Place (04327) of occurrence (2 sources.) Unclassified Other cervical no information no information KAREN DE LOS SANTOS , Not Available (1 source.) disc (28929) degeneration at C5-C6 level External cause Other external no information no information Eri TERRANCE AARTI , Not Available codes: cause status (97165) Unspecified (2 sources.) Other skin Other Episodic Completed no name Not Availabl e disorders (1 seborrheic (50046) source.) keratosis Other Pain in right Episodic Completed no name Not Avai lable connective hand (08512) tissue disease (1 source.) Disorders of [facility] metabolism (3 o[place], of [facility] sources.) unspecified [place] (33967) Translations: [ - Hypercholester emia E78.00] Procedures Procedure Normalized Procedure Procedure Result Performer Facility Date 06-09-2018 Administration of no information ISABELLE OLSEN Via [facility] anesthesia [place] (95243) 07-01-2013 Basic metabolic panel no information no name [facility] calcium total [facility] (39748) 05-27-2014 Blood count complete no information no name [facility] auto&auto difrntl wbc [facility] (82085) 02-03-2018 Collection venous no information no name [facility] blood venipuncture [facility] (64745) 05-27-2014 Collection venous no information no name [facility] blood venipuncture [facility] (93377) 07-01-2013 Collection venous no information no name [facility] blood venipuncture [facility] (27076) 05-27-2014 Comprehensive no information no name [facility] metabolic panel [facility] (68553) 05-05-2018 Ecg routine ecg no information no name [facility] w/least 12 [facility] w/o i&r [place] (16753) 05-05-2018 EKG, TRACING no information no name [facility] (IN-HOUSE) [facility] (44431) 10-15-2018 [facility] visit, estab pt no information no name [facility] (66987) 10-02-2018 [facility] visit, estab pt no information no name [facility] (25371) 08-03-2018 [facility] visit, estab pt no information no name [facility] (27941) 05-05-2018 [facility] visit, estab pt no information no name [facility] (29872) 02-03-2018 [facility] visit, estab pt no information no name [facility] (33573) 12-12-2017 [facility] visit, estab pt no information no name [facility] (40579) FUSION 2-4 L JT W no information no name Not Availabl e (20821) AUTOL SUB, POST APPR P FUSION 2-7 T JT W no information no name Not Availabl e (22933) AUTOL SUB, POST APPR P FUSION LUM JT W INTBD no information no name Not Avai lable (99904) FUS DEV, ANT APPR FUSION LUMSAC JT W no information no name Not Availab le (97409) AUTOL SUB, POST APPR FUSION LUMSAC JT W no information no name Not Availab le (53357) INTBD FUS DEV, ANT AP FUSION OF no information no name Not Available ( 02960) SACROCOCCYGEAL JOINT WITH AUTO FUSION T-LUM JT W no information no name Not Availabl e (49682) AUTOL SUB, POST APPR P 12-12-2017 Influenza assay no information no name [facility] w/[facility] (88442) 10-02-2018 LAB NOT BILLED BY no information no name [facility] (71853) 05-05-2018 LAB NOT BILLED BY no information no name [facility] (32226) 02-03-2018 LAB NOT BILLED BY no information no name [facility] (72862) Periodic comprehensive no information no name Not Juliette ilable (09094) preventive medicine reevaluation and management of an individual including an age and gender appropriate history, examination, counseling/anticipator y guidance/risk factor reduc 12-16-2019 Screening mammography no information no name [facility] ([id number]) (Work Phone: ) 12-01-2018 Screening mammography no information no name [facility] (47805) ( ) 10-02-2018 Urnls dip stick/tablet no information no name [facility] rgnt auto w/o [facility] (04087) 11-23-2018 no information no information Elie Vidal [facility] (83354) ( ) Immunizations Normalized Immunization Date Notes Care Provider Facili ty Immunization influenza, 08-31-2019 no information no name [facility] (41923) quadrivalent, preservative free influenza, 08-06-2018 no information no name [facility] (85604) quadrivalent, preservative free tetanus and 08-18-2001 no information no name [facility] diphtheria toxoids[facility] (72587) adsorbed, preservative free, for adult use (5 Lf of tetanus toxoid and 2 Lf of diphtheria toxoid) tetanus toxoid, 02-19-2020 no information no name [facility] Via [facility] toxoid, and (63509) acellular pertussis vaccine, adsorbed tetanus toxoid, 09-28-2019 no information no name [facility] reduced dipht[facility]ria [facility] (14026) toxoid, and acellular pertussis vaccine, adsorbed Results Test Name Value Interpretation Reference Range Date Time Fa cility (Normalized) (Normalized) (Medline Reference) ua long dip (in house) on null Glucose Test Negative (no code) [facility] strip mass conc [facility] (U) [facility] (04339) Protein mass Negative (no code) 0 - 20 mg/dL [facility] ealth conc (U) [facility] (61918) UA LONG DIP (IN 2019-06-09 (no code) [facility]) [facility] (31385) UA LONG DIP (IN cloudy (no code) [facility]) [facility] (74810) UA LONG DIP (IN yellow (no code) [facility]) [facility] (53734) UA LONG DIP (IN none (no code) [facility] (96152) UA LONG DIP (IN 150350 (no code) [facility] (32377) UA LONG DIP (IN 1+ (no code) [facility] (01629) UA LONG DIP (IN 7.0 (no code) [facility] (50259) UA LONG DIP (IN 1.010 (no code) [facility] (75973) UA LONG DIP (IN 0.2 (no code) [facility] (42202) UA LONG DIP (IN Positive (no code) [facility] (07250) UA LONG DIP (IN 31610Y (no code) [facility] (12917) UA LONG DIP (IN Oct 2018 (no code) [facility] (22703) other on null no information no information (no code) Via [facility] (87204) not yet categorized on null Sex Assigned at (ADM.CQPHI) Does (no code) Gill Medic al Patient Have [facility] (83379) Restrictions?: N~(ADM.FORMS1) Admission Consent Signed?: Y~(ADM.FORMS2) Authorization and Agreements Signed?: Y~(ADM.FORMS3) Who Signed A & A?: pt~(ADM.FORMS5) Can someone from the [facility] follow up with you regarding PP?: SIG~(ADM.FORMS6) Was pt offered Portal and external access instructions?: Y~(ADM.GENDER) Gender ID: F~(ADM.GENIDV) Gender ID Verified: [id number]~(ADM.GR ADD1) 2G Address:: same~(ADM.GRNAME ) 2G Name: Daniel Vale~(ADM.GRSS) 2G Soc Sec Num: [id number]~(ADM .HIPAA6) If Yes, Date Signed:: [id number]~(ADM.HI PAA8) Was new HIPAA NPP signed before this visit?: Y~(ADM.PTRGT4) Was Patient Rights Document Given?: DEC~(ADM.PTRGT5) Was Visitation Rights Document Given at Reg?: OCT~(ADM.SEX) Sex Assigned at : F laboratory on null Microscopic Negative (no code) Health observation [facility] stain.thin prep [facility] Nom (Cvx) (44606) influenza a & b (in house) on null INFLUENZA A & B Negative (no code) [facility] (IN HOUSE) [facility] (07954) INFLUENZA A & B + (no code) [facility] (IN HOUSE) [facility] (00662) INFLUENZA A & B [id number] (no code) [facility] (IN HOUSE) [facility] (74739) INFLUENZA A & B 2020-03-23 (no code) [facility] (IN HOUSE) [facility] (94943) laboratory on 2020-04-30 Albumin 4.0 g/dL (NEG) 3.4 - 5.4 g/dL 04-30-2020 PENDING LOCATION [Mass/Vol] 08:10-0400 [facility] (94682) ALP [Catalytic 59 U/L (NEG) 44 - 147 U/L 04-30-2020 PEND ING LOCATION activity/Vol] 08:10-0400 [facility] (39002) Anion gap 11 mmol/L (NEG) 3 - 11 mmol/L 04-30-2020 PENDING LOCATION [Moles/Vol] 08:10-0400 [facility] (21647) AST [Catalytic 50 U/L (H) 10 - 34 U/L 04-30-2020 PENDI NG LOCATION activity/Vol] 08:10-0400 [facility] (65816) Basophils (Bld) 0.0 10*3/uL (NEG) 0 - 0.3 10*3/uL 04-30-2020 PENDING LOCATION [#/Vol] 08:10-0400 [facility] (72945) Basophils/100 1 % (NEG) 0.5 - 1 % 04-30-2020 PENDING LOCATION WBC (Bld) 08:10-0400 [facility] (72386) Bilirubin 0.4 mg/dL (NEG) 0.1 - 1.2 mg/dL 04-30-2020 PENDIN G LOCATION [Mass/Vol] 08:10-0400 [facility] (13523) Calcium 9.3 mg/dL (NEG) 8.5 - 10.2 mg/dL 04-30-2020 PENDI NG LOCATION [Mass/Vol] 08:10-0400 [facility] (05611) Chloride 90 mmol/L (L) 95 - 106 mmol[facility]L [facility]0400 [facility] (38754) CO2 [Moles/Vol] 20 mmol/L (L) 23 - 29 mmol/L 04-30-2020 P ENDING LOCATION 08:10-0400 [facility] (54685) Creatinine 0.60 mg/dL (NEG) 04-30-2020 PENDING LOCATI ON [Mass/Vol] 08:10-0400 [facility] (31626) Creatinine and > (no code) 04-30-2020 PENDING LOC ATION Glomerular 08:10-0400 [facility] (98182) filtration rate.predicted panel - Serum, Plasma or Blood Eosinophils 0.0 10*3/uL (NEG) 0.05 - 0.5 04-30-2020 PENDING LOCATION (Bld) [#/Vol] 10*3/uL 08:10-0400 [facility] (40397) Eosinophils/100 1 % (NEG) 1 - 4 % 04-30-2020 [facility] LOCATION WBC (Bld) 08:10-0400 [facility] (41183) Erythrocyte 13.9 % (NEG) 11.6 - 14.6 % 04-30-2020 [facility] LOCATION distribution 08:10-0400 [facility] (55177) width (RBC) [Ratio] Glucose 93 mg/dL (NEG) 60 - 125 mg/dL 04-30-2020 PENDING LOCATION [Mass/Vol] 08:10-0400 [facility] (34583) Hematocrit (Bld) 33 % (L) 36.1 - 50.3 % 04-30-2020 P ENDING LOCATION [Volume 08:10-0400 [facility] (91731) fraction] Hemoglobin (Bld) 11.5 g/dL (NEG) 12.1 - 17.2 g/dL 04-30-2020 PENDING LOCATION [Mass/Vol] 08:10-0400 [facility] (01758) Lymphocytes 1.0 10*3/uL (NEG) 0.9 - 2.9 04-30-2020 PENDING LOCATION (Bld) [#/Vol] 10*3/uL 08:10-0400 [facility] (97173) Lymphocytes/100 22 % (NEG) 20 - 40 % 04-30-2020 PENDIN G LOCATION WBC (Bld) 08:10-0400 [facility] (98809) MCH (RBC) 28 pg (NEG) 27 - 31 pg 04-30-2020 PENDING LOC ATION [Entitic mass] 08:10-0400 [facility] (13728) MCHC (RBC) 35 g/dL (NEG) 32 - 36 g/dL 04-30-2020 PENDING LOCATION [Mass/Vol] 08:10-0400 [facility] (82983) MCV (RBC) 82 (NEG) 04-30-2020 PENDING LOCATI ON [Entitic vol] 08:10-0400 [facility] (15072) Monocytes (Bld) 0.6 10*3/uL (NEG) 0.3 - 0.9 04-30-2020 PEND ING LOCATION [#/Vol] 10*3/uL 08:10-0400 [facility] (28957) Monocytes/100 14 % (H) 2 - 8 % 04-30-2020 PENDING LOCATION WBC (Bld) 08:10-0400 [facility] (30255) Neutrophils 2.8 10*3/uL (NEG) 1.7 - 7 10*3/uL 04-30-2020 [facility] LOCATION (Bld) [#/Vol] 08:10-0400 [facility] (75766) Neutrophils/100 63 % (NEG) 40 - 60 % 04-30-2020 PENDIN G LOCATION WBC (Bld) 08:10-0400 [facility] (57493) Platelet mean 8.1 (NEG) 04-30-2020 PENDING LOCA TION volume (Bld) 08:10-0400 [facility] (82047) [Entitic vol] Platelets (Bld) 434 10*3/uL (H) 150 - 450 04-30-2020 PEND ING LOCATION [#/Vol] 10*3/uL 08:10-0400 [facility] (51841) Potassium 4.0 mmol/L (NEG) 3.7 - 5.2 mmol/L 04-30-2020 PEND ING LOCATION [Moles/Vol] 08:10-0400 [facility] (69177) Protein 7.8 g/dL (NEG) 6.4 - 8.3 g/dL 04-30-2020 PENDING LOCATION [Mass/Vol] 08: [facility] (86266) RBC (Bld) 4.05 10*6/uL (L) 4.2 - 6.1 04-30-2020 PENDING L OCATION [#/Vol] 10*6/uL 08: [facility] () Urea nitrogen 8 mg/dL (NEG) 7 - 20 mg/dL 04-30-2020 PENDI LOCATION [Mass/Vol] 08: [facility] () Urea 13 mg/mg (no code) 6 - 22 mg/mg 04-30-2020 PENDING L OCATION nitrogen/Creatin 08: [facility] () ine [Mass ratio] WBC (Bld) 4.4 10*3/uL (NEG) 3.5 - 10.5 04-30-2020 PENDING L OCATION [#/Vol] 10*3/uL 08: [facility] () laboratory on 2020-04-22 Albumin 4.0 g/dL (NEG) 3.4 - 5.4 g/dL 04-22-2020 PENDING LOCATION [Mass/Vol] 09: [facility] () ALP [Catalytic 57 U/L (NEG) 44 - 147 U/L 04-22-2020 PEND ING LOCATION activity/Vol] 09: [facility] () ALT [Catalytic U/L (NEG) 4 - 40 U/L 04-22-2020 PENDIN G LOCATION activity/Vol] 09: [facility] () Anion gap 12 mmol/L (NEG) 3 - 11 mmol/L 04-22-2020 PENDING LOCATION [Moles/Vol] 09: [facility] () AST [Catalytic 29 U/L (NEG) 10 - 34 U/L 04-22-2020 PENDI NG LOCATION activity/Vol] 09: [facility] () Basophils (Bld) 0.0 10*3/uL (NEG) 0 - 0.3 10*3/uL 04-22-2020 PENDING LOCATION [#/Vol] 09: [facility] (48689) Basophils/100 0 % (NEG) 0.5 - 1 % 04-22-2020 PENDING LOCATION WBC (Bld) 09:10-0400 [facility] (16927) Bilirubin 0.3 mg/dL (NEG) 0.1 - 1.2 mg/dL 04-22-2020 [facility] 09:10-0400 [facility] (36647) Calcium 9.4 mg/dL (NEG) 8.5 - 10.2 mg/dL 04-22-2020 PENDI NG LOCATION [Mass/Vol] 09:10-0400 [facility] (14334) Chloride 94 mmol/L (L) 95 - 106 mmol/L 04-22-2020 [facility] [Moles/Vol] 09:10-0400 [facility] (71975) CO2 [Moles/Vol] 21 mmol/L (NEG) 23 - 29 mmol/L 04-22-2020 P ENDING LOCATION 09:10-0400 [facility] (99747) Creatinine 0.62 mg/dL (NEG) 04-22-2020 PENDING LOCATI ON [Mass/Vol] 09:10-0400 [facility] (93109) Creatinine and > (no code) 04-22-2020 PENDING LOC ATION Glomerular 09:-0 [facility] (26660) filtration rate.predicted panel - Serum, Plasma or Blood Eosinophils 0.0 10*3/uL (NEG) 0.05 - 0.5 04-22-2020 PENDING LOCATION (Bld) [#/Vol] 10*3/uL 09:10-0400 [facility] (44544) Eosinophils/100 0 % (NEG) 1 - 4 % 04-22-2020 [facility] G LOCATION WBC (Bld) 09:100400 [facility] (31083) Erythrocyte 14.2 % (NEG) 11.6 - 14.6 % 04-22-2020 [facility] distribution 09:100400 [facility] (69112) width (RBC) [Ratio] Glucose 118 mg/dL (H) 60 - 125 mg/dL 04-22-2020 PENDING LOCATION [Mass/Vol] 09:10-0400 [facility] (67460) Hematocrit (Bld) 31 % (L) 36.1 - 50.3 % 04-22-2020 P ENDING LOCATION [Volume 09:040 [facility] (97448) fraction] Hemoglobin (Bld) 10.7 g/dL (L) 12.1 - 17.2 g/dL 04-22-2020 PENDING LOCATION [Mass/Vol] 09:10-0400 [facility] (13159) INR Coag 0.8 (NEG) 04-22-2020 PENDING LOCATI ON (Platelet poor 09:10-0400 [facility] (92906) plasma or blood) [Relative time] Lymphocytes 0.5 10*3/uL (L) 0.9 - 2.9 04-22-2020 PENDING LOCATION (Bld) [#/Vol] 10*3/uL 09:10-0400 [facility] (25474) Lymphocytes/100 9 % (L) 20 - 40 % 04-22-2020 PENDIN G LOCATION WBC (Bld) 09:10-0400 [facility] (18190) MCH (RBC) 29 pg (NEG) 27 - 31 pg 04-22-2020 PENDING LOC ATION [Entitic mass] 09:10-0400 [facility] (54851) MCHC (RBC) 34 g/dL (NEG) 32 - 36 g/dL 04-22-2020 PENDING LOCATION [Mass/Vol] 09:10-0400 [facility] (56743) MCV (RBC) 83 (NEG) 04-22-2020 PENDING LOCATI ON [Entitic vol] 09:10-0400 [facility] (02287) Monocytes (Bld) 0.5 10*3/uL (NEG) 0.3 - 0.9 04-22-2020 PEND ING LOCATION [#/Vol] 10*3/uL 09:10-0400 [facility] (29108) Monocytes/100 9 % (NEG) 2 - 8 % 04-22-2020 PENDING LOCATION WBC (Bld) 09:10-0400 [facility] (85851) Neutrophils 4.8 10*3/uL (NEG) 1.7 - 7 10*3/uL 04-22-2020 [facility] LOCATION (Bld) [#/Vol] 09:10-0400 [facility] (22225) Neutrophils/100 82 % (H) 40 - 60 % 04-22-2020 PENDIN G LOCATION WBC (Bld) 09:10-0400 [facility] (34399) Platelet mean 8.1 (NEG) 04-22-2020 PENDING LOCA TION volume (Bld) 09:100400 [facility] (52962) [Entitic vol] Platelets (Bld) 376 10*3/uL (NEG) 150 - 450 04-22-2020 PEND ING LOCATION [#/Vol] 10*3/uL 09:10-0400 [facility] (59551) Potassium 4.4 mmol/L (NEG) 3.7 - 5.2 mmol/L 04-22-2020 PEND [facility] LOCATION [Moles/Vol] 09:10-0400 [facility] (76285) Protein 7.6 g/dL (NEG) 6.4 - 8.3 g/dL 04-22-2020 PENDING LOCATION [Mass/Vol] 09:10-0400 [facility] ([id number]) PT Coag (PPP) 11.8 s (L) 9.4 - 12.5 s [facility] ([id number]) RBC (Bld) 3.74 10*6/uL (L) 4.2 - 6.1 04-22-2020 PENDING L OCATION [#/Vol] 10*6/uL 09:10-0400 [facility] (56076) Sodium 127 mmol/L (L) 135 - 145 mmol/L 04-22-2020 [facility]END [facility] LOCATION [Moles/Vol] 09:10-0400 [facility] (74284) Urea nitrogen 9 mg/dL (NEG) 7 - 20 mg/dL 04-22-2020 [facility] LOCATION [Mass/Vol] 09:10-0400 [facility] ([id number]) Urea 15 mg/mg (no code) 6 - 22 mg/mg 04-22-2020 PENDING L OCATION nitrogen/Creatin 09:10-0400 [facility] (54322) ine [Mass ratio] WBC (Bld) 5.9 10*3/uL (NEG) 3.5 - 10.5 04-22-2020 PENDING L OCATION [#/Vol] 10*3/uL 09:10-0400 [facility] (74521) laboratory on 2020-04-04 Albumin 3.6 g/dL (N) 3.4 - 5.4 g/dL [facility] [Mass/Vol] [facility] (08796) Albumin/Globulin 1.1 {ratio} (N) 1 - 2.5 {ratio} [facility] [Mass ratio] [facility] () ALP [Catalytic 67 U/L (N) 44 - 147 U/L [facility] activity/Vol] [facility] (50084) ALT [Catalytic 9 U/L (N) 4 - 40 U/L [facility] activity/Vol] [facility] () AST [Catalytic 26 U/L (N) 10 - 34 U/L [facility] activity/Vol] [facility] (20434) Basophils (Bld) 0.039 10*3/uL (N) 0 - 0.3 10*3/uL [facility] [#/Vol] [facility] () Basophils/100 0.9 % (N) 0.5 - 1 % [facility] WBC (Bld) [facility] () Bilirubin 0.4 mg/dL (N) 0.1 - 1.2 mg/dL [facility] Health [Mass/Vol] [facility] (57175) Calcium 9.1 mg/dL (N) 8.5 - 10.2 mg/dL [facility] Health [Mass/Vol] [facility] () Chloride 97 mmol/L (L) 95 - 106 mmol/L [facility] [Moles/Vol] [facility] (34230) CO2 [Moles/Vol] 23 mmol/L (N) 23 - 29 mmol/L [facility] (47246[facility] Creatinine 0.55 mg/dL (N) [facility] [Mass/Vol] [facility] (27203) Eosinophils 0.163 10*3/uL (N) 0.05 - 0.5 [facility] (Bld) [#/Vol] 10*3/uL [facility] (43876) Eosinophils/100 3.8 % (N) 1 - 4 % [facility] Health WBC (Bld) [facility] (75248) Erythrocyte 13.4 % (N) 11.6 - 14.6 % [facility] distribution [facility] (RBC) [facility] [Ratio] (52885) GFR/1.73 sq M 116 (N) 90 - 120 [facility] predicted among mL/min/{1.73_m2} mL/min/{1.73_m2} [facility] blacks MDRD [facility] (S/P/Bld) [Vol (64929) rate/Area] GFR/1.73 sq 100 (N) 90 - 120 [facility] th M.predicted MDRD mL/min/{1.73_m2} mL/min/{1.73_m2} [facility] (S/P/Bld) [Vol [facility] rate/Area] (17681) Globulin (S) 3.3 g/dL (N) 2 - 3.5 g/dL [facility] H ealt [Mass/Vol] [facility] (19009) Glucose 105 mg/dL (H) 60 - 125 mg/dL [facility] [Mass/Vol] [facility] (74567) Hematocrit (Bld) 32.4 % (L) 36.1 - 50.3 % [facility] [Volume [facility] (84084) Hemoglobin (Bld) 10.7 g/dL (L) 12.1 - 17.2 g/dL [facility] [Mass/Vol] [facility] (89085) Lymphocytes 1.135 10*3/uL (N) 0.9 - 2.9 [facility] He alth (Bld) [#/Vol] 10*3/uL [facility] (89179) Lymphocytes/100 26.4 % (N) 20 - 40 % [facility] WBC (Bld) [facility] (02470) MCH (RBC) 28.0 pg (N) 27 - 31 pg [facility] th [Entitic mass] [facility] (85491) MCHC (RBC) 33.0 g/dL (N) 32 - 36 g/dL [facility] [Mass/Vol] [facility] (23954) MCV (RBC) 84.8 fL (N) 80 - 100 fL [facility] Hea lth [Entitic vol] [facility] (12132) Monocytes (Bld) 0.507 10*3/uL (N) 0.3 - 0.9 [facility] Health [#/Vol] 10*3/uL [facility] (52531) Monocytes/100 11.8 % (N) 2 - 8 % [facility] WBC (Bld) [facility] (78625) Neutrophils 2.455 10*3/uL (N) 1.7 - 7 10*3/uL [facility] Health (Bld) [#/Vol] [facility] (11583) Neutrophils/100 57.1 % (N) 40 - 60 % [facility] WBC (Bld) [facility] (23717) Platelet mean 8.8 fL (N) 7.2 - 11.7 fL [facility] volume (Bld) [facility] [Entitic vol] [facility] (17873) Platelets (Bld) 485 10*3/uL (H) 150 - 450 [facility] [#/Vol] 10*3/uL [facility] (16552) Potassium 4.2 mmol/L (N) 3.7 - 5.2 mmol/L [facility] [Moles/Vol] [facility] (19872) Protein 6.9 g/dL (N) 6.4 - 8.3 g/dL [facility] [Mass/Vol] [facility] (34414) RBC (Bld) 3.82 10*6/uL (N) 4.2 - 6.1 [facility] lth [#/Vol] 10*6/uL [facility] (42022) Sodium 129 mmol/L (L) 135 - 145 mmol/L [facility] [Moles/Vol] [facility] (55217) Urea nitrogen 15 mg/dL (N) 7 - 20 mg/dL [facility] [Mass/Vol] [facility] (95190) Urea NOT APPLICABLE (no code) [facility] nitrogen/Creatin [facility] (43551[facility] WBC (Bld) 4.3 10*3/uL (N) 3.5 - 10.5 [facility] th [#/Vol] 10*3/uL [facility] (71655) not yet categorized on 2020-03-13 Exp Date Negative (no code) [facility] () laboratory on 2020-03-13 Albumin 4.1 g/dL (N) 3.4 - 5.4 g/dL [facility] [Mass/Vol] [facility] () Albumin/Globulin 1.1 {ratio} (N) 1 - 2.5 {ratio} Comm [facility] [Mass ratio] [facility] () ALP [Catalytic 71 U/L (N) 44 - 147 U/L [facility] Health activity/Vol] [facility] () ALT [Catalytic 12 U/L (N) 4 - 40 U/L [facility] ealth activity/Vol] [facility] () AST [Catalytic 32 U/L (N) 10 - 34 U/L [facility] Health activity/Vol] [facility] () Basophils (Bld) 0.03 10*3/uL (N) 0 - 0.3 10*3/uL [facility] Health [#/Vol] [facility] (64471) Basophils/100 0.4 % (N) 0.5 - 1 % [facility] WBC (Bld) [facility] () Bilirubin 0.3 mg/dL (N) 0.1 - 1.2 mg/dL [facility] [Mass/Vol] [facility] (17393) Calcium 9.5 mg/dL (N) 8.5 - 10.2 mg/dL [facility] [Mass/Vol] [facility] (04208) Chloride 95 mmol/L (L) 95 - 106 mmol/L [facility] [Moles/Vol] [facility] (20356) CO2 [Moles/Vol] 22 mmol/L (N) 23 - 29 mmol/L [facility] (97327) Creatinine 0.68 mg/dL (N) [facility] [[facility] (93848) Eosinophils 0.152 10*3/uL (N) 0.05 - 0.5 [facility] (Bld) [#/Vol] 10*3/uL [facility] (61237) Eosinophils/100 2.0 % (N) 1 - 4 % [facility] WBC (Bld) [facility] (46710) Erythrocyte 12.5 % (N) 11.6 - 14.6 % [facility] ealt distribution [facility] width (RBC) [facility] [Ratio] (04908) Ferritin 1064 ng/mL (H) [facility] h [Mass/Vol] [facility] (98792) GFR/1.73 sq M 108 (N) 90 - 120 [facility] predicted among mL/min/{1.73_m2} mL/min/{1.73_m2} [facility] blacks MDRD [facility] (S/P/Bld) [Vol (78991) rate/Area] GFR/1.73 sq 93 (N) 90 - 120 [facility] M.predicted MDRD mL/min/{1.73_m2} mL/min/{1.73_m2} [facility] (S/P/Bld) [Vol [facility] rate/Area] (32485) Globulin (S) 3.6 g/dL (N) 2 - 3.5 g/dL [facility] [Mass/Vol] [facility] (87576) Glucose 88 mg/dL (N) 60 - 125 mg/dL [facility] [Mass/Vol] [facility] (54594) Hematocrit (Bld) 34.5 % (L) 36.1 - 50.3 % [facility] [Volume [facility] fraction] [facility] (91491) Hemoglobin (Bld) 11.6 g/dL (L) 12.1 - 17.2 g/dL [facility] [Mass/Vol] [facility] (25263) Iron [Mass/Vol] 26 ug/dL (L) 60 - 170 ug/dL [facility] (52910) Iron binding 273 (N) [facility] capacity [facility] [Mass/Vol] [facility] (96463) Iron saturation 10 (L) [facility] [Mass fraction] [facility] (45898) Lymphocytes 1.193 10*3/uL (N) 0.9 - 2.9 [facility] (Bld) [#/Vol] 10*3/uL [facility] (22674) Lymphocytes/100 15.7 % (N) 20 - 40 % [facility] Health WBC (Bld) [facility] (28789) MCH (RBC) 28.9 pg (N) 27 - 31 pg [facility] [Entitic mass] [facility] (62003) MCHC (RBC) 33.6 g/dL (N) 32 - 36 g/dL [facility] [Mass/Vol] [facility] (82386) MCV (RBC) 85.8 fL (N) 80 - 100 fL [facility] Hea lth [Entitic vol] [facility] (18952) Monocytes (Bld) 0.524 10*3/uL (N) 0.3 - 0.9 [facility] [#/Vol] 10*3/uL [facility] (82781) Monocytes/100 6.9 % (N) 2 - 8 % [facility] WBC (Bld) [facility] (61302) Neutrophils 5.7 10*3/uL (N) 1.7 - 7 10*3/uL [facility] Health (Bld) [#/Vol] [facility] (52009) Neutrophils/100 75 % (N) 40 - 60 % [facility] WBC (Bld) [facility] (67949) Platelet mean 9.4 fL (N) 7.2 - 11.7 fL [facility] Health volume (Bld) [facility] [Entitic vol] [facility] (87624) Platelets (Bld) 381 10*3/uL (N) 150 - 450 [facility] Health [#/Vol] 10*3/uL [facility] (16438) Potassium 4.1 mmol/L (N) 3.7 - 5.2 mmol/L [facility] [Moles/Vol] [facility] (13296) Protein 7.7 g/dL (N) 6.4 - 8.3 g/dL [facility] Health [Mass/Vol] [facility] (39321) RBC (Bld) 4.02 10*6/uL (N) 4.2 - 6.1 [facility] [#/Vol] 10*6/uL [facility] (38497) Sodium 130 mmol/L (L) 135 - 145 mmol/L [facility] [Moles/Vol] [facility] (45850) Urea nitrogen 12 mg/dL (N) 7 - 20 mg/dL [facility] [Mass/Vol] [facility] (41124) Urea NOT APPLICABLE (no code) [facility] Healt h nitrogen/Creatin [facility] [Mass ratio] [facility] (35285) WBC (Bld) 7.6 10*3/uL (N) 3.5 - 10.5 [facility] Heal th [#/Vol] 10*3/uL [facility] (76333) not yet categorized on 2020-03-12 Exp date Negative (no code) [facility] (80843) laboratory on 2020-03-05 Albumin 4.0 g/dL (NEG) 3.4 - 5.4 g/dL 03-05-2020 PENDING LOCATION [Mass/Vol] 05:25-0400 [facility] (93709) ALP [Catalytic 60 U/L (NEG) 44 - 147 U/L 03-05-2020 PEND ING LOCATION activity/Vol] 05:25-0400 [facility] (48943) ALT [Catalytic 11 U/L (NEG) 4 - 40 U/L 03-05-2020 PENDIN G LOCATION activity/Vol] 05:25-0400 [facility] (50896) Amorphous FEW JEANCARLOS (A) 03-05-2020 PENDING LOCATI ON sediment LM Ql PHOSPHATE 06:30-0400 [facility] (62099) (Urine sed) Anion gap 11 mmol/L (NEG) 3 - 11 mmol/L 03-05-2020 PENDING LOCATION [Moles/Vol] 05:25-0400 [facility] (67277) AST [Catalytic 31 U/L (NEG) 10 - 34 U/L 03-05-2020 PENDI NG LOCATION activity/Vol] 05:25-0400 [facility] (63459) Bacteria NG (no code) 03-05-2020 PENDING LOCATI ON identified Cx 06:30-0400 [facility] (53656) Nom (U) Bacteria LM Ql FEW (A) 03-05-2020 PENDING LOC ATION (Urine sed) 06:30-0400 [facility] (43402) Basophils (Bld) 0.0 10*3/uL (NEG) 0 - 0.3 10*3/uL 03-05-2020 PENDING LOCATION [#/Vol] 05:25-0400 [facility] (70701) Basophils/100 1 % (NEG) 0.5 - 1 % 03-05-2020 PENDING LOCATION WBC (Bld) 05:25-0400 [facility] (77625) Bilirubin 0.3 mg/dL (NEG) 0.1 - 1.2 mg/dL 03-05-2020 PENDIN G LOCATION [Mass/Vol] 05:25-0400 [facility] (32350) Bilirubin Ql (U) Negative (no code) 03-05-2020 PENDING L OCATION 06:30-0400 [facility] (61860) Calcium 9.8 mg/dL (NEG) 8.5 - 10.2 mg/dL 03-05-2020 PENDI NG LOCATION [Mass/Vol] 05:25-0400 [facility] (50367) Casts LM Ql NONE (no code) 03-05-2020 PENDING LOCATI ON (Urine sed) 06:30-0400 [facility] (43025) Chloride 99 mmol/L (NEG) 95 - 106 mmol/L 03-05-2020 PENDIN G LOCATION [Moles/Vol] 05:25-0400 [facility] (81388) Clarity (U) CLEAR (no code) 03-05-2020 PENDING LOCATI ON 06:30-0400 [facility] (74825) CO2 [Moles/Vol] 24 mmol/L (NEG) 23 - 29 mmol/L 03-05-2020 P ENDING LOCATION 05:25-0400 [facility] (96699) Color (U) YELLOW (no code) 03-05-2020 PENDING LOCATI ON 06:30-0400 [facility] (95082) Creatinine 0.73 mg/dL (NEG) 03-05-2020 PENDING LOCATI ON [Mass/Vol] 05:25-0400 [facility] (99478) Creatinine and > (no code) 03-05-2020 PENDING LOC ATION Glomerular 05:25-0400 [facility] (02517) filtration rate.predicted panel - Serum, Plasma or Blood Crystals LM Ql NONE (no code) 03-05-2020 PENDING LOC ATION (Urine sed) 06:30-0400 [facility] (94901) Eosinophils 0.1 10*3/uL (NEG) 0.05 - 0.5 03-05-2020 PENDING LOCATION (Bld) [#/Vol] 10*3/uL 05:25-0400 [facility] (73740) Eosinophils/100 3 % (NEG) 1 - 4 % 03-05-2020 PENDIN G LOCATION WBC (Bld) 05:25-0400 [facility] (73645) Epithelial RARE (no code) 03-05-2020 PENDING LOCATI ON cells.squamous 06:30-0400 [facility] (28036) LM Ql (Urine sed) Erythrocyte 12.6 % (NEG) 11.6 - 14.6 % 03-05-2020 PENDIN G LOCATION distribution 05:25-0400 [facility] (93224) width (RBC) [Ratio] Glucose 91 mg/dL (NEG) 60 - 125 mg/dL 03-05-2020 PENDING LOCATION [Mass/Vol] 05:25-0400 [facility] (16062) Glucose Auto Negative (no code) 03-05-2020 PENDING LOCAT ION test strip Ql 06:30-0400 [facility] (08988) (U) Hematocrit (Bld) 33 % (L) 36.1 - 50.3 % 03-05-2020 P ENDING LOCATION [Volume 05:25-0400 [facility] (09016) fraction] Hemoglobin (Bld) 10.9 g/dL (L) 12.1 - 17.2 g/dL 03-05-2020 PENDING LOCATION [Mass/Vol] 05:25-0400 [facility] (89027) Ketones Auto Negative (no code) 03-05-2020 PENDING LOCAT ION test strip Ql 06:30-0400 [facility] (21255) (U) Leukocyte Negative (no code) 03-05-2020 PENDING LOCATI ON esterase Test 06:30-0400 [facility] (00699) strip Ql (U) Lymphocytes 0.8 10*3/uL (L) 0.9 - 2.9 03-05-2020 PENDING LOCATION (Bld) [#/Vol] 10*3/uL 05:25-0400 [facility] (16522) Lymphocytes/100 20 % (NEG) 20 - 40 % 03-05-2020 PENDIN G LOCATION WBC (Bld) 05:25-0400 [facility] (32182) Magnesium 2.1 mg/dL (NEG) 1.7 - 2.2 mg/dL 03-05-2020 PENDIN G LOCATION [Mass/Vol] 05:25-0400 [facility] (07145) MCH (RBC) 28 pg (NEG) 27 - 31 pg 03-05-2020 PENDING LOC ATION [Entitic mass] 05:25-0400 [facility] (41333) MCHC (RBC) 33 g/dL (NEG) 32 - 36 g/dL 03-05-2020 PENDING LOCATION [Mass/Vol] 05:25-0400 [facility] (10980) MCV (RBC) 85 (NEG) 03-05-2020 PENDING LOCATI ON [Entitic vol] 05:25-0400 [facility] (34391) Monocytes (Bld) 0.3 10*3/uL (NEG) 0.3 - 0.9 03-05-2020 PEND ING LOCATION [#/Vol] 10*3/uL 05:25-0400 [facility] (68833) Monocytes/100 7 % (NEG) 2 - 8 % 03-05-2020 PENDING LOCATION WBC (Bld) 05:25-0400 [facility] (79021) Mucus Ql (Urine Negative (no code) 03-05-2020 PENDING LO CATION sed) 06:30-0400 [facility] (45908) Neutrophils 2.8 10*3/uL (NEG) 1.7 - 7 10*3/uL 03-05-2020 PE NDING LOCATION (Bld) [#/Vol] 05:25-0400 [facility] (43843) Neutrophils/100 70 % (NEG) 40 - 60 % 03-05-2020 PENDIN G LOCATION WBC (Bld) 05:25-0400 [facility] (44691) Nitrite Ql (U) Negative (no code) 03-05-2020 PENDING LOC ATION 06:30-0400 [facility] (78497) pH (U) 8.0 [pH] (no code) 4.6 - 8 [pH] 03-05-2020 PENDING L OCATION 06:30-0400 [facility] (18035) Platelet mean 8.4 (NEG) 03-05-2020 PENDING LOCA TION volume (Bld) 05:25-0400 [facility] (97506) [Entitic vol] Platelets (Bld) 398 10*3/uL (NEG) 150 - 450 03-05-2020 PEND ING LOCATION [#/Vol] 10*3/uL 05:25-0400 [facility] (08651) Potassium 3.8 mmol/L (NEG) 3.7 - 5.2 mmol/L 03-05-2020 PEND ING LOCATION [Moles/Vol] 05:25-0400 [facility] (06316) Protein 7.9 g/dL (NEG) 6.4 - 8.3 g/dL 03-05-2020 PENDING LOCATION [Mass/Vol] 05:25-0400 [facility] (54120) Protein Ql (U) Negative (no code) 03-05-2020 PENDING LOC ATION 06:30-0400 [facility] (11717) RBC (Bld) 3.85 10*6/uL (L) 4.2 - 6.1 03-05-2020 PENDING L OCATION [#/Vol] 10*6/uL 05:25-0400 [facility] (70110) RBC LM.HPF NONE (no code) 03-05-2020 PENDING LOCATI ON (Urine sed) 06:30-0400 [facility] (82300) [#/Area] RBC Ql (U) Negative (no code) 03-05-2020 PENDING LOCATI ON 06:30-0400 [facility] (69243) Sodium 134 mmol/L (L) 135 - 145 mmol/L 03-05-2020 PEND ING LOCATION [Moles/Vol] 05:25-0400 [facility] (29102) Specific gravity 1.010 (L) 03-05-2020 PENDING L OCATION (U) [Rel 06:30-0400 [facility] (89826) density] Urea nitrogen 11 mg/dL (NEG) 7 - 20 mg/dL 03-05-2020 PENDI NG LOCATION [Mass/Vol] 05:25-0400 [facility] (36465) Urea 15 mg/mg (no code) 6 - 22 mg/mg 03-05-2020 PENDING L OCATION nitrogen/Creatin 05:25-0400 [facility] (75575) ine [Mass ratio] Urinalysis YES (no code) 03-05-2020 PENDING LOCATI ON complete W 06:30-0400 [facility] (70556) Reflex Culture panel - Urine Urobilinogen (U) 0.2 mg/dL (no code) 03-05-2020 PENDING L OCATION [Mass/Vol] 06:30-0400 [facility] (75837) WBC (Bld) 4.1 10*3/uL (L) 3.5 - 10.5 03-05-2020 PENDING L OCATION [#/Vol] 10*3/uL 05:25-0400 [facility] (93650) WBC LM.HPF no information (no code) 03-05-2020 PENDING LOC ATION (Urine sed) 06:30040 [facility] (36925) [#/Area] not yet categorized on 2020-03-02 Control Negative (no code) [facility] (92453) Exp date 10/01 (no code) [facility] ([id number]) Lot # [id number] (no code) [facility] (90184) laboratory on 2020-02-19 Albumin 4.0 g/dL (NEG) 3.4 - 5.4 g/dL 02-19-2020 PENDING LOCATION [Mass/Vol] 09:35-0400 [facility] (25459) ALP [Catalytic 53 U/L (NEG) 44 - 147 U/L 02-19-2020 PEND ING LOCATION activity/Vol] 09:35-0400 [facility] ([id number]) ALT [Catalytic 10 U/L (NEG) 4 - 40 U/L 02-19-2020 PENDIN G LOCATION activity/Vol] 09:35-0400 [facility] (06605) Amorphous FEW JEANCARLOS URATES (A) 02-19-2020 PENDING LO CATION sediment LM Ql 09:55-0400 [facility] (00923) (Urine sed) Anion gap 12 mmol/L (NEG) 3 - 11 mmol/L 02-19-2020 PENDING LOCATION [Moles/Vol] 09:35-0400 [facility] (65959) AST [Catalytic 31 U/L (NEG) 10 - 34 U/L 02-19-2020 PENDI NG LOCATION activity/Vol] 09:35-0400 [facility] (75275) Bacteria LM Ql Negative (no code) 02-19-2020 PENDING LOC ATION (Urine sed) 09:55-0400 [facility] (10942) Basophils (Bld) 0.0 10*3/uL (NEG) 0 - 0.3 10*3/uL 02-19-2020 PENDING LOCATION [#/Vol] 09:35-0400 [facility] (23466) Basophils/100 1 % (NEG) 0.5 - 1 % 02-19-2020 PENDING LOCATION WBC (Bld) 09:35-0400 [facility] (74129) Bilirubin 0.3 mg/dL (NEG) 0.1 - 1.2 mg/dL 02-19-2020 PENDIN G LOCATION [Mass/Vol] 09:35-0400 [facility] (74241) Bilirubin Ql (U) Negative (no code) 02-19-2020 PENDING L OCATION 09:55-0400 [facility] (88744) Calcium 9.3 mg/dL (NEG) 8.5 - 10.2 mg/dL 02-19-2020 PENDI NG LOCATION [Mass/Vol] 09:35-0400 [facility] (83361) Casts LM Ql NONE (no code) 02-19-2020 PENDING LOCATI ON (Urine sed) 09:55-0400 [facility] (99976) Chloride 100 mmol/L (NEG) 95 - 106 mmol/L 02-19-2020 PENDI NG LOCATION [Moles/Vol] 09:35-0400 [facility] (28795) Clarity (U) CLEAR (no code) 02-19-2020 PENDING LOCATI ON 09:55-0400 [facility] (69244) CO2 [Moles/Vol] 19 mmol/L (L) 23 - 29 mmol/L 04 P ENDING LOCATION 09:35-0400 [facility] (05819) Color (U) YELLOW (no code) 02-19-2020 PENDING LOCATI ON 09:55-0400 [facility] (33192) Creatinine 0.73 mg/dL (NEG) 02-19-2020 PENDING LOCATI ON [Mass/Vol] 09:35-0400 [facility] (69584) Creatinine and > (no code) 02-19-2020 PENDING LOC ATION Glomerular 09:35-0400 [facility] (72222) filtration rate.predicted panel - Serum, Plasma or Blood Crystals LM Ql PRESENT (A) 02-19-2020 PENDING LOC ATION (Urine sed) 09:55-0400 [facility] ([id number]) Eosinophils 0.1 10*3/uL (NEG) 0.05 - 0.5 02-19-2020 PENDING LOCATION (Bld) [#/Vol] 10*3/uL 09:35-0400 [facility] (20711) Eosinophils/100 1 % (NEG) 1 - 4 % 02-19-2020 PENDIN G LOCATION WBC (Bld) 09:35-0400 [facility] (23547) Epithelial RARE (no code) 02-19-2020 PENDING LOCATI ON cells.squamous 09:55-0400 [facility] (98696) LM Ql (Urine sed) Erythrocyte 12.9 % (NEG) 11.6 - 14.6 % 02-19-2020 PENDIN G LOCATION distribution 09:35-0400 [facility] (39408) width (RBC) [Ratio] Ethanol mg/dL (NEG) 0 - 80 mg/dL 02-19-2020 PENDING L OCATION [Mass/Vol] 09:35-0400 [facility] (65181) Glucose 100 mg/dL (NEG) 60 - 125 mg/dL 02-19-2020 PENDING LOCATION [Mass/Vol] 09:35-0400 [facility] (50816) Glucose 103 mg/dL (NEG) 60 - 125 mg/dL 02-19-2020 PENDING LOCATION [Mass/Vol] 09:45-0400 [facility] (57626) Glucose Auto Negative (no code) 02-19-2020 PENDING LOCAT ION test strip Ql 09:55-0400 [facility] ([id number]) (U) Hematocrit (Bld) 34 % (L) 36.1 - 50.3 % 02-19-2020 P ENDING LOCATION [Volume 09:35-0400 [facility] (58115) fraction] Hemoglobin (Bld) 12.0 g/dL (NEG) 12.1 - 17.2 g/dL 02-19-2020 PENDING LOCATION [Mass/Vol] 09:35-0400 [facility] (33400) Ketones Auto Negative (no code) 02-19-2020 PENDING LOCAT ION test strip Ql 09:55-0400 [facility] (74437) (U) Leukocyte TRACE (A) 02-19-2020 PENDING LOCATI ON esterase Test 09:55-0400 [facility] (35473) strip Ql (U) Lymphocytes 1.6 10*3/uL (NEG) 0.9 - 2.9 02-19-2020 PENDING LOCATION (Bld) [#/Vol] 10*3/uL 09:35-0400 [facility] (76774) Lymphocytes/100 37 % (NEG) 20 - 40 % 02-19-2020 PENDIN G LOCATION WBC (Bld) 09:35-0400 [facility] (46953) MCH (RBC) 29 pg (NEG) 27 - 31 pg 02-19-2020 PENDING LOC ATION [Entitic mass] 09:35-0400 [facility] ([id number]) MCHC (RBC) 35 g/dL (NEG) 32 - 36 g/dL 02-19-2020 PENDING LOCATION [Mass/Vol] 09:35-0400 [facility] ([id number]) MCV (RBC) 84 (NEG) 02-19-2020 PENDING LOCATI ON [Entitic vol] 09:35-0400 [facility] ([id number]) Monocytes (Bld) 0.6 10*3/uL (NEG) 0.3 - 0.9 02-19-2020 PEND ING LOCATION [#/Vol] 10*3/uL 09:35-0400 [facility] ([id number]) Monocytes/100 13 % (H) 2 - 8 % 02-19-2020 PENDING LOCATION WBC (Bld) 09:35-0400 [facility] ([id number]) Mucus Ql (Urine SMALL (A) 02-19-2020 PENDING LO CATION sed) 09:55-0400 [facility] ([id number]) Neutrophils 2.1 10*3/uL (NEG) 1.7 - 7 10*3/uL 02-19-2020 PE NDING LOCATION (Bld) [#/Vol] 09:35-0400 [facility] ([id number]) Neutrophils/100 49 % (NEG) 40 - 60 % 02-19-2020 PENDIN G LOCATION WBC (Bld) 09:35-0400 [facility] ([id number]) Nitrite Ql (U) Negative (no code) 02-19-2020 PENDING LOC ATION 09:55-0400 [facility] ([id number]) pH (U) 7.5 [pH] (no code) 4.6 - 8 [pH] 02-19-2020 PENDING L OCATION 09:55-0400 [facility] ([id number]) Platelet mean 9.1 (NEG) 02-19-2020 PENDING LOCA TION volume (Bld) 09:35-0400 [facility] ([id number]) [Entitic vol] Platelets (Bld) 288 10*3/uL (NEG) 150 - 450 02-19-2020 PEND ING LOCATION [#/Vol] 10*3/uL 09:35-0400 [facility] (84376) Potassium 4.4 mmol/L (NEG) 3.7 - 5.2 mmol/L 02-19-2020 PEND ING LOCATION [Moles/Vol] 09:35-0400 [facility] ([id number]) Protein 7.6 g/dL (NEG) 6.4 - 8.3 g/dL 02-19-2020 PENDING LOCATION [Mass/Vol] 09:35-0400 [facility] ([id number]) Protein Ql (U) TRACE (A) 02-19-2020 PENDING LOC ATION 09:55-0400 [facility] ([id number]) RBC (Bld) 4.09 10*6/uL (L) 4.2 - 6.1 02-19-2020 PENDING L OCATION [#/Vol] 10*6/uL 09:35-0400 [facility] ([id number]) RBC LM.HPF no information (no code) 02-19-2020 PENDING LOC ATION (Urine sed) 09:55-0400 [facility] ([id number]) [#/Area] RBC Ql (U) Negative (no code) 02-19-2020 PENDING LOCATI ON 09:55-0400 [facility] ([id number]) Sodium 131 mmol/L (L) 135 - 145 mmol/L 02-19-2020 PEND ING LOCATION [Moles/Vol] 09:35-0400 [facility] ([id number]) Specific gravity 1.015 (L) 02-19-2020 PENDING L OCATION (U) [Rel 09:55-0400 [facility] ([id number]) density] Troponin ng/mL (NEG) 0 - 0.4 ng/mL 02-19-2020 PENDING LOCATION I.cardiac 09:35-0400 [facility] ([id number]) [Mass/Vol] TSH Qn 1.18 m[IU]/L (NEG) 0.4 - 4 m[IU]/L 02-19-2020 PEN DING LOCATION 09:35-0400 [facility] ([id number]) Urea nitrogen 9 mg/dL (NEG) 7 - 20 mg/dL 02-19-2020 PENDI NG LOCATION [Mass/Vol] 09:35-0400 [facility] ([id number]) Urea 12 mg/mg (no code) 6 - 22 mg/mg 02-19-2020 PENDING L OCATION nitrogen/Creatin 09:35-0400 [facility] ([id number]) ine [Mass ratio] Urinalysis NO (no code) 02-19-2020 PENDING LOCATI ON complete W 09:55-0400 [facility] ([id number]) Reflex Culture panel - Urine Urobilinogen (U) 0.2 mg/dL (no code) 02-19-2020 PENDING L OCATION [Mass/Vol] 09:55-0400 [facility] ([id number]) WBC (Bld) 4.4 10*3/uL (NEG) 3.5 - 10.5 02-19-2020 PENDING L OCATION [#/Vol] 10*3/uL 09:35-0400 [facility] (86509) WBC LM.HPF RARE (no code) 02-19-2020 PENDING LOCATI ON (Urine sed) 09:55-0400 [facility] ([id number]) [#/Area] not yet categorized on 2019-12-16 no information [facility] (no code) [facility] – [place] ~ [id number] ~ [place] [address] ~ ~ Mammography Report ~ Signed ~ ~Patient: Louise Vale MR#: [id number] ~: 1955 ~Age/Sex: 64 / F ADM [...] ~Reason for Exam(s): screening mammo ~ ~ ~#[id number] - MM SCREENING VENUS BI W/PRANEETH ~ ~BILATERAL DIGITAL SCREENING MAMMOGRAM 3D/2D WITH CAD: 12/16/2019 ~ ~CLINICAL: Z12.31-Encounter for screening mammogram. ~ ~Digital Breast Tomosynthesis was performed. ~ Current study was also evaluated with a Computer Aided Detection (CAD) system. ~ ~ ~Comparison is made to exams dated: 12/01/2018 mammogram and 07/26/2016 mammogram ~ ~- [facility] [place]. ~The tissue of both breasts is extremely dense, which lowers the sensitivity of ~ ~mammography. ~ ~No significant masses, calcifications, or other findings are seen in either ~breast. ~ ~IMPRESSION: NEGATIVE ~There is no mammographic evidence of malignancy. A 1 year screening mammogram is ~ ~ recommended. ~The patient was notified of the results. ~ ~ ~Dr. Joseph Milan ~[facility]/[place]:2019 11:22:58 ~ ~Tire Finisher(s): RT Clarita(R)(M), [facility] [place] ~letter sent: Normal/Benign Category 1/2 ~BI-RADS: 1 Negative laboratory on 2019-07-27 Albumin 4.3 g/dL (N) 3.4 - 5.4 g/dL [facility] [Mass/Vol] [facility] (71644) Albumin 4.3 g/dL (N) 3.4 - 5.4 g/dL [facility] [Mass/Vol] [facility] (05871) Albumin/Globulin 1.3 {ratio} (N) 1 - 2.5 {ratio} Comm [facility] [Mass ratio] [facility] (42839) Albumin/Globulin 1.3 {ratio} (N) 1 - 2.5 {ratio} Comm [facility] [Mass ratio] [facility] (27407) ALP [Catalytic 72 U/L (N) 44 - 147 U/L [facility] activity/Vol] [facility] (97524) ALP [Catalytic 72 U/L (N) 44 - 147 U/L [facility] Health activity/Vol] [facility] (84387) ALT [Catalytic 9 U/L (N) 4 - 40 U/L [facility] activity/Vol] [facility] (19287) ALT [Catalytic 9 U/L (N) 4 - 40 U/L [facility] activity/Vol] [facility] (99421) AST [Catalytic 27 U/L (N) 10 - 34 U/L [facility] activity/Vol] [facility] (02133) AST [Catalytic 27 U/L (N) 10 - 34 U/L [facility] activity/Vol] [facility] (71265) Bilirubin 0.3 mg/dL (N) 0.1 - 1.2 mg/dL [facility] [Mass/Vol] [facility] (15892) Bilirubin 0.3 mg/dL (N) 0.1 - 1.2 mg/dL [facility] [Mass/Vol] [facility] () Calcidiol 53 ng/mL (N) 20 - 50 ng/mL [facility] [Mass/Vol] [facility] (04408) Calcidiol 53 ng/mL (N) 20 - 50 ng/mL Community ealt [Mass/Vol] [facility] () Calcium 9.9 mg/dL (N) 8.5 - 10.2 mg/dL [facility] [Mass/Vol] [facility] (10707) Calcium 9.9 mg/dL (N) 8.5 - 10.2 mg/dL [facility] [Mass/Vol] [facility] (23202) Chloride 96 mmol/L (L) 95 - 106 mmol/L [facility] [Moles/Vol] [facility] (47953) Chloride 96 mmol/L (L) 95 - 106 mmol/L [facility] [Moles/Vol] [facility] (34397) Cholesterol 198 mg/dL (N) 180 - 200 mg/dL [facility] [Mass/Vol] [facility] (57474) Cholesterol 198 mg/dL (N) 180 - 200 mg/dL [facility] [Mass/Vol] [facility] (81800) Cholesterol in 84 mg/dL (N) [facility] HDL [Mass/Vol] [facility] (81994) Cholesterol in 84 mg/dL (N) [facility] HDL [Mass/Vol] [facility] (47792) Cholesterol in 97 mg/dL (N) 0 - 100 mg/dL [facility] LDL [Mass/Vol] [facility] (86023) Cholesterol in 97 mg/dL (N) 0 - 100 mg/dL [facility] LDL [Mass/Vol] [facility] (33604) Cholesterol non 114 mg/dL (N) [facility] HDL [Mass/Vol] [facility] (31514) Cholesterol non 114 mg/dL (N) [facility] HDL [Mass/Vol] [facility] (57989) Cholesterol.tota 2.4 {ratio} (N) [facility] lt l/Cholesterol in [facility] HDL [Mass ratio] [facility] (35803) Cholesterol.tota 2.4 {ratio} (N) [facility] lt l/Cholesterol in [facility] HDL [Mass ratio] [facility] (00141) CO2 [Moles/Vol] 28 mmol/L (N) 23 - 29 mmol/L [facility] (18763) CO2 [Moles/Vol] 28 mmol/L (N) 23 - 29 mmol/L [facility] (44500) Creatinine 0.63 mg/dL (N) [facility] [Mass/Vol] [facility] (03263) Creatinine 0.63 mg/dL (N) [facility] [Mass/Vol] [facility] (87276) GFR/1.73 sq M 111 (N) 90 - 120 [facility] He alth predicted among mL/min/{1.73_m2} mL/min/{1.73_m2} [place] MDRD [facility] (S/P/Bld) [Vol (39388) rate/Area] GFR/1.73 sq M 111 (N) 90 - 120 [facility] He alth predicted among mL/min/{1.73_m2} mL/min/{1.73_m2} [place] MDRD [facility] (S/P/Bld) [Vol (05091) rate/Area] GFR/1.73 sq 96 (N) 90 - 120 [facility] M.predicted MDRD mL/min/{1.73_m2} mL/min/{1.73_m2} [facility] (S/P/Bld) [Vol [facility] rate/Area] (09209) GFR/1.73 sq 96 (N) 90 - 120 [facility] M.predicted MDRD mL/min/{1.73_m2} mL/min/{1.73_m2} [facility] (S/P/Bld) [Vol [facility] rate/Area] (79921) Globulin (S) 3.4 g/dL (N) 2 - 3.5 g/dL [facility] [Mass/Vol] [facility] (03634) Globulin (S) 3.4 g/dL (N) 2 - 3.5 g/dL [facility] ealt [Mass/Vol] [facility] (01524) Glucose 84 mg/dL (N) 60 - 125 mg/dL [facility] [Mass/Vol] [facility] (85605) Glucose 84 mg/dL (N) 60 - 125 mg/dL [facility] [Mass/Vol] [facility] (98162) Potassium 4.7 mmol/L (N) 3.7 - 5.2 mmol/L [facility] [Moles/Vol] [facility] (03878) Potassium 4.7 mmol/L (N) 3.7 - 5.2 mmol/L [facility] [Moles/Vol] [facility] (64659) Protein 7.7 g/dL (N) 6.4 - 8.3 g/dL [facility] [Mass/Vol] [facility] (63532) Protein 7.7 g/dL (N) 6.4 - 8.3 g/dL [facility] [Mass/Vol] [facility] (41142) Sodium 131 mmol/L (L) 135 - 145 mmol/L [facility] [Moles/Vol] [facility] (02501) Sodium 131 mmol/L (L) 135 - 145 mmol/L [facility] [Moles/Vol] [facility] (81284) Triglyceride 78 mg/dL (N) 0 - 150 mg/dL [facility] [Mass/Vol] [facility] (95078) Triglyceride 78 mg/dL (N) 0 - 150 mg/dL [facility] [Mass/Vol] [facility] (99742) Urea nitrogen 8 mg/dL (N) 7 - 20 mg/dL [facility] [Mass/Vol] [facility] (56949) Urea nitrogen 8 mg/dL (N) 7 - 20 mg/dL [facility] [Mass/Vol] [facility] (45461) Urea NOT APPLICABLE (no code) [facility] nitrogen/Creatin [facility] [Mass ratio] [facility] (46606) Urea NOT APPLICABLE (no code) [facility] nitrogen/Creatin [facility] [Mass ratio] [facility] (88440) not yet categorized on 2019-04-13 COMMENT no information (no code) [facility] (52948) COMMENT no information (no code) [facility] (81234) medMATCH CONSISTENT (no code) [facility] Aminoclonazepam [facility] (27566) medMATCH CONSISTENT (no code) [facility] Aminoclonazepam [facility] (55637) medMATCH CONSISTENT (no code) [facility] Amphetamines [facility] (62851) medMATCH CONSISTENT (no code) [facility] Amphetamines [facility] (39303) medMATCH aOH CONSISTENT (no code) [facility] alprazolam [facility] (82342) medMATCH aOH CONSISTENT (no code) [facility] alprazolam [facility] (04941) medMATCH aOH CONSISTENT (no code) [facility] midazolam [facility] (96796) medMATCH aOH CONSISTENT (no code) [facility] midazolam [facility] (79848) medMATCH aOH CONSISTENT (no code) [facility] triazolam [facility] (24436) medMATCH aOH CONSISTENT (no code) [facility] triazolam [facility] (01873) medMATCH Cocaine CONSISTENT (no code) [facility] Metab Center [facility] (60144) medMATCH Cocaine CONSISTENT (no code) [facility] Metab Center [facility] (64295) medMATCH INCONSISTENT (no code) [facility] Desmethyltram Center [facility] (99114) medMATCH CONSISTENT (no code) [facility] Lorazepam Center [facility] (14067) medMATCH CONSISTENT (no code) [facility] Lorazepam [facility] (98346) medMATCH CONSISTENT (no code) [facility] Marijuana Metab Center [facility] (20844) medMATCH CONSISTENT (no code) [facility] Marijuana Metab Center [facility] (83586) medMATCH CONSISTENT (no code) [facility] Nordiazepam Center [facility] (55265) medMATCH CONSISTENT (no code) [facility] Nordiazepam [facility] (17229) medMATCH [place],Et CONSISTENT (no code) [facility] flurazepam Center [facility] (00763) medMATCH [place],Et CONSISTENT (no code) [facility] flurazepam Center [facility] (04164) medMATCH Opiates CONSISTENT (no code) [facility] (75371) medMATCH Opiates CONSISTENT (no code) [facility] (34326) medMATCH CONSISTENT (no code) [facility] Oxazepam Center [facility] (38126) medMATCH CONSISTENT (no code) [facility] Oxazepam Center [facility] (08358) medMATCH CONSISTENT (no code) [facility] Oxycodone [facility] (73467) medMATCH CONSISTENT (no code) [facility] Oxycodone [facility] (37944) medMATCH CONSISTENT (no code) [facility] Tem[facility] (42618) medMATCH CONSISTENT (no code) [facility] Temazepam [facility] (05642) medMATCH INCONSISTENT (no code) [facility] Tramadol [facility] (68612) Prescribed Drug Tramadol (no code) [facility] 1 [facility] (05260) Prescribed Drug Tramadol (no code) [facility] 1 [facility] (63925) Prescribed Drug Ativan(TM) (no code) [facility] 2 [facility] (98999) Prescribed Drug Ativan(TM) (no code) [facility] 2 [facility] (59225) laboratory on 2019-04-13 1-Hydroxymidazol Negative (no code) [facility] am (U) [facility] [Mass/Vol] [facility] (44345) 1-Hydroxymidazol Negative (no code) [facility] Hea lth am (U) [facility] [Mass/Vol] [facility] (54099) 7-Aminoclonazepa Negative (no code) [facility] Hea lth m (U) [Mass/Vol] [facility] (36733) 7-Aminoclonazepa Negative (no code) [facility] (U[facility] [Mass/Vol] [facility] (34713) Alpha Negative (no code) [facility] hydroxy[facility] m (U) [Mass/Vol] [facility] (28271) Alpha Negative (no code) [facility] hydroxyalprazola [facility] m (U) [Mass/Vol] [facility] (34060) Alpha Negative (no code) [facility] hydroxytriazolam [facility] (U) [Mass/Vol] [facility] (99912) Alpha Negative (no code) [facility] hydroxytriazolam [facility] (U) [Mass/Vol] [facility] (73925) Amphetamines Ql Negative (no code) [facility] th (U) [facility] (72698) Amphetamines Ql Negative (no code) [facility] (U) [facility] (40308) Benzodiazepines Positive (A) [facility] Ql (U) [facility] (81381) Benzodiazepines Positive (A) [facility] Ql (U) [facility] (22617) Benzoylecgonine Negative (no code) [facility] Ql (U) [facility] (48934) Benzoylecgonine Negative (no code) [facility] Ql (U) [facility] (01694) Creatinine (U) 11.2 mg/dL (L) [facility] [Mass/Vol] [facility] (35549) Creatinine (U) 11.2 mg/dL (L) [facility] [Mass/Vol] [facility] (87984) Hydroxyethylflur Negative (no code) Community [facility] azepam (U) [facility] [Mass/Vol] [facility] (50131) Hydroxyethylflur Negative (no code) Community [facility] azepam (U) [facility] (31761) Lorazepam (U) 50 (H) [facility] [Mass/Vol] [facility] (79510) Lorazepam (U) 50 (H) [facility] [Mass/Vol] [facility] (72575) Nordiazepam (U) Negative (no code) [facility] [Mass/Vol] [facility] (93008) Nordiazepam (U) Negative (no code) [facility] [Mass/Vol] [facility] (83717) Nortramadol (U) Negative (no code) [facility] [Mass/Vol] [facility] (36757) Opiates Ql (U) Negative (no code) [facility] (69717) Opiates Ql (U) Negative (no code) [facility] (36980) Oxazepam (U) Negative (no code) [facility] [Mass/Vol] [facility] (26491) Oxazepam (U) Negative (no code) [facility] [Mass/Vol] [facility] (38954) Oxidants Ql (U) Negative (no code) [facility] (52276) Oxidants Ql (U) Negative (no code) [facility] (26958) Oxycodone Ql (U) Negative (no code) [facility] (39955) Oxycodone Ql (U) Negative (no code) [facility] (67892) pH (U) 7.09 [pH] (no code) 4.6 - 8 [pH] [facility] He [facility] (15357) pH (U) 7.09 [pH] (no code) 4.6 - 8 [pH] [facility] He [facility] (76731) Specific gravity 1.003 (no code) [facility] (U) [[facility]] [facility] (45342) Specific gravity 1.003 (no code) [facility] Hea lth (U) [[facility]] [facility] (32080) Temazepam (U) Negative (no code) [facility] [Mass/Vol] [facility] (76282) Temazepam (U) Negative (no code) [facility] [Mass/Vol] [facility] (77118) Tetrahydrocannab Negative (no code) [facility] inol Ql (U) [facility] (82174) Tetrahydrocannab Negative (no code) [facility] inol Ql (U) [facility] (69467) Tramadol (U) Negative (no code) [facility] Healt h [Mass/Vol] [facility] (63579) other on 2018-12-01 no information [facility] (no code) [facility] [place] ~ [address] ~ [place] [address] ~ ~ Mammography Report ~ Signed ~ ~Patient: Louise Vale MR#: [id number] ~: 1955 ~Age/Sex: 63 / F ADM [...] ~Reason for Exam(s): mammo screening ~ ~ ~#[id number] - MM SCREENING VENUS BI W/PRANEETH ~BILATERAL DIGITAL SCREENING MAMMOGRAM 3D/2D WITH CAD: 12/01/2018 ~CLINICAL: Z12.31-Encounter for screening mammogram. ~ ~Digital Breast Tomosynthesis was performed. ~ Current study was also evaluated with a Computer Aided Detection (CAD) system. ~ ~ ~Comparison is made to exams dated: 07/26/2016 mammogram - [facility] [place], ~ ~ 06/08/2015 mammogram, 05/31/2015 mammogram, and 05/06/2014 mammogram - [address] ~ ~ Clinic, [facility]. ~ ~The tissue of both breasts is extremely dense, which lowers the sensitivity of ~ ~mammography. ~No significant masses, calcifications, or other findings are seen in either ~breast. ~ ~IMPRESSION: NEGATIVE ~There is no mammographic evidence of malignancy. A 1 year screening mammogram is ~ ~ recommended. ~The patient was notified of the results. ~ ~ ~Dr. Joseph Milan ~[facility]/:12/01/2018 15:29:52 ~ ~Tire Finisher: Seema JAMES(Tasia)(M), [facility] [place] ~letter sent: Normal/Benign Category 1/2 ~BI-RADS: 1 Negative other on 2018-11-24 no information [facility] [place] - Main (no code) [facility] ~ [facility] ([address] ~ [place] [address] ~ ~ Operative Note ~ Signed ~ ~Patient: Louise Vale MR#: [id number] ~: 1955 ~Age/Sex: 63 / F ADM [...] underwent total intravenous anesthesia by the nurse lead java programmer per ~my request. Formal time-out was then [...] no information [facility] - Main (no code) [facility] ~ [address] [place] [address] ([address]) [facility] [address] ~ [place] [address] ~ ~ Anesthesia Preoperative Report ~ Signed ~ ~Patient: Louise Vale MR#: [id number] ~: 1955 ~Age/Sex: 63 / F ADM Date: 11/23/18 ~Loc: [facility] [place].PERIOP KAYLEE-E DIS Date: [...] [place] ~Sodium Phosphate (Fleet Enema) 1 enema AK PRN PRN ~ ~ ~Home Medications: ~ [...] Yes ~ ~ ~Documented By: Linwood Whiting DISTRIBUTION CENTER ASSOCIATE 11/23/18 0733 ~Signed By: <Electronically signed by Linwood Whiting DISTRIBUTION CENTER ASSOCIATE> 11/23/18 0735 ~ ~ no information [facility] - Main (no code) [facility] ~ [address] [place] [address] ([address] ~ [place] [address] ~ ~ Anesthesia Postoperative Note ~ Signed ~ ~Patient: Louise Vale MR#: [id number] ~: 1955 ~Age/Sex: 63 / F ADM [...] ~Signed By: <Electronically signed by Linwood Whiting DISTRIBUTION CENTER ASSOCIATE> 11/23/18 1015 ~ ~ urinalysis on 2018-10-02 Bacteria SEE NOTE (A) [facility] identified [facility] (U) [facility] (32816) Protein (U) Negative (no code) 0 - 20 mg/dL Community [facility] alth [Mass/Vol] [facility] (08566) other on 2018-10-02 BLO 1+ (no code) [facility] (12258) Exp date Positive (no code) [facility] (25854) KET 2019-06-09~cloud (no code) [facility] y~yellow~none~[facility]~negative~ [facility] negative (30797) Lot # [id number] (no code) [facility] (85374) SG 1.010 (no code) [facility] (36043) URO 0.2 (no code) [facility] (46898) hematology on 2018-10-02 pH (Bld) 7.0 [pH] (no code) 7.38 - 7.42 [pH] [facility] (29927) thyroid on 2018-05-05 Thyrotropin Qn 1.73 m[IU]/L (N) 0.4 - 4 m[IU]/L Not A vailable (24659) other on 2018-05-05 Albumin/Globulin 1.5 (N) no informatio n mass ratio Calcidiol mass 54 ng/mL (N) 20 - 50 ng/mL Not Avai lable conc (42102) Cholesterol in 96 (N) Not Available LDL mass conc (04712) Cholesterol non 114 (N) Not Available HDL mass conc (54324) Cholesterol.tota 2.3 (N) Not Available l/Cholesterol in (08884) HDL mass ratio Globulin 3.4 (N) no [...] - 2.2 mg/dL Not Av ailable conc (87036) Potassium molar 4.2 mmol/L (N) 3.7 - [...] mg/dL (N) Not Available HDL mass conc (62839) Cholesterol mass 204 mg/dL (H) 180 - 200 mg/dL Not Available conc (97014) Triglyceride 89 mg/dL (N) 0 - 150 mg/dL Not Availa ble mass conc (93094) other on 2018-02-03 Albumin/Globulin 1.3 (N) [facility] mass ratio [facility] (16064) Globulin 3.5 (N) [facility] h Calculated mass [facility] (S) [facility] (59341) metabolic panel on 2018-02-03 Albumin mass 4.7 g/dL (N) 3.4 - 5.4 g/dL [facility] (50257) ALP enzyme 93 U/L (N) 44 - 147 U/L [facility] act[facility] (32584) ALT enzyme 11 U/L (N) 4 - 40 U/L [facility] act/[facility] (41228) AST enzyme 27 U/L (N) 10 - 34 U/L [facility] act/[facility] (93251) Bilirubin mass 0.3 mg/dL (N) 0.1 - 1.2 mg/dL [facility] (34101) Calcium mass 10.4 mg/dL (N) 8.5 - 10.2 mg/dL [facility] (44815) Chloride molar 99 mmol/L (N) 95 - 106 mmol/L [facility] (59907) CO2 molar conc 27 mmol/L (N) 23 - 29 mmol/L [facility] (57472) Creatinine mass 0.57 mg/dL (N) [facility] (24621) GFR/1.73 sq M 116 (N) 90 - 120 [facility] access hospital predicted among mL/min/{1.73_m2} mL/min/{1.73_m2} [place] [facility] blacks MDRD [facility] (05761) (S/P/Bld) GFR/1.73 sq 100 (N) 90 - 120 [facility] M.predicted MDRD mL/min/{1.73_m2} mL/min/{1.73_m2} [facility] rate/[facility] (75103) Glucose mass 78 mg/dL (N) 60 - 125 mg/dL [facility] (05347) Potassium molar 4.3 mmol/L (N) 3.7 - 5.2 mmol/L [facility] (04849) Protein mass 8.2 g/dL (H) 6.4 - 8.3 g/dL [facility] (41445) Sodium molar 131 mmol/L (L) 135 - 145 mmol/L [facility] (93046) Urea nitrogen 7 mg/dL (N) 7 - 20 mg/dL [facility] (90838) Urea NOT APPLICABLE (no code) [facility] h nitrogen/Creatin [facility] mass [facility] (83128) hematology on 2018-02-03 Basophils Auto 0.049 10*3/uL (N) 0 - 0.3 10*3/uL [facility] #/vol (Bld) [facility] (60278) Basophils/100 1.2 % (N) 0.5 - 1 % [facility] alth WBC Auto (Bld) [facility] (87648) Eosinophils Auto 0.029 10*3/uL (N) 0.05 - 0.5 [facility] #/vol (Bld) 10*3/uL [facility] (24931) Eosinophils/100 0.7 % (N) 1 - 4 % [facility] WBC Auto (Bld) [facility] (23241) Erythrocyte 12.2 % (N) 11.6 - 14.6 % [facility] ealth distribution [facility] Auto Ratio [facility] (RBC) (80089) Hematocrit Auto 39.3 % (N) 36.1 - 50.3 % [facility] Volume Fraction [facility] ([facility]) [facility] (85128) Hemoglobin mass 12.8 g/dL (N) 12.1 - 17.2 g/dL [facility] conc (Bld) [facility] (19464) Lymphocytes Auto 1.595 10*3/uL (N) 0.9 - 2.9 [facility] #/vol (Bld) 10*3/uL [facility] (95563) Lymphocytes/100 38.9 % (N) 20 - 40 % [facility] Health WBC Auto (Bld) [facility] (63812) MCH Auto Entitic 28.8 pg (N) 27 - 31 pg [facility] Health mass (RBC) [facility] (18372) MCHC Auto mass 32.6 g/dL (N) 32 - 36 g/dL [facility] conc (RBC) [facility] ([id number]) MCV Auto Entitic 88.5 fL (N) 80 - 100 fL [facility] volume (RBC) [facility] ([id number]) Monocytes Auto 0.316 10*3/uL (N) 0.3 - 0.9 [facility] Health #/vol (Bld) 10*3/uL [facility] ([id number]) Monocytes/100 7.7 % (N) 2 - 8 % [facility] WBC Auto (Bld) [facility] ([id number]) Neutrophils Auto 2.112 10*3/uL (N) 1.7 - 7 10*3/uL [facility] #/vol (Bld) [facility] (90336) Neutrophils/100 51.5 % (N) 40 - 60 % [facility] WBC Auto (Bld) [facility] (11386) Platelet mean 9.2 fL (N) 7.2 - 11.7 fL [facility] Health volume Auto [facility] (Bld) ([id number]) Platelets Auto 362 10*3/uL (N) 150 - 450 [facility] #/vol (Bld) 10*3/uL [facility] ([id number]) RBC Auto #/vol 4.44 10*6/uL (N) 4.2 - 6.1 [facility] Health (Bld) 10*6/uL [facility] ([id number]) WBC Auto #/vol 4.1 10*3/uL (N) 3.5 - 10.5 [facility] (Bld) 10*3/uL [facility] ([id number]) other on 2017-12-12 Control Negative (no code) [facility] ([id number]) Exp date 2020-03-23 (no code) [facility] ([id number]) Lot # [id number] (no code) [facility] ([id number]) other on 2017-06-13 Albumin/Globulin 1.6 {ratio} (no code) 1 - 2.5 {ratio} 7 Not Available mass ratio 08:440 (40175) Globulin 2.9 g/dL (no code) 2 - 3.5 g/dL 06-13-2017 Not Avail able Calculated mass 08:44 (15524) conc (S) Immature 0.0 10*3/uL (no code) 0 - 0.2 10*3/uL 06-13-2017 Not Available granulocytes 08:460400 (17065) #/vol (Bld) Immature 0 % (no code) 0 - 0.5 % 06-13-2017 Not Availabl e granulocytes/100 08:460 (89136) WBC (Bld) metabolic panel on 2017-06-13 Albumin mass 4.7 g/dL (no code) 3.4 - 5.4 g/dL 06-13-2017 Not Available conc 08:44-0400 (43195) ALP enzyme 101 U/L (no code) 44 - 147 U/L 06-13-2017 Not Avai lable act/vol 08:440400 (57252) ALT enzyme 20 U/L (no code) 4 - 40 U/L 06-13-2017 Not Availa ble act/vol 08:440400 (68417) AST enzyme 35 U/L (no code) 10 - 34 U/L 06-13-2017 Not Avail able act/vol 08:44-0400 (74360) Bilirubin mass mg/dL (no code) 0.1 - 1.2 mg/dL 06-13-2017 N ot Available conc 08:440400 (70376) Calcium mass 9.9 mg/dL (no code) 8.5 - 10.2 mg/dL 06-13-2017 No t Available conc 08:440400 (23161) Chloride molar 90 mmol/L (L) 95 - 106 mmol/L 06-13-2017 N ot Available conc 08:33-0400 (22247) CO2 molar conc 24 mmol/L (no code) 23 - 29 mmol/L 06-13-2017 No t Available 08:47-0400 (77565) Creatinine mass 0.58 mg/dL (no code) 06-13-2017 Not Availa ble conc 08:44-0400 (95027) GFR/1.73 sq M 116 (no code) 90 - 120 06-13-2017 Not Avai lable predicted among mL/min/{1.73_m2} mL/min/{1.73_m2} 08:440400 (11581) blacks MDRD vol rate/area (S/P/Bld) GFR/1.73 sq M 101 (no code) 90 - 120 06-13-2017 Not Avai lable predicted among mL/min/{1.73_m2} mL/min/{1.73_m2} 08:440400 (85353) non-blacks MDRD vol rate/area (S/P/Bld) Glucose mass 87 mg/dL (no code) 60 - 125 mg/dL 06-13-2017 Not Available conc 08:47-0400 (65411) Potassium molar 4.5 mmol/L (no code) 3.7 - 5.2 mmol/L 06-13-2017 Not Available conc 08:37-0400 (54591) Protein mass 7.6 g/dL (no code) 6.4 - 8.3 g/dL 06-13-2017 Not Available conc 08:440400 (46354) Sodium molar 130 mmol/L (L) 135 - 145 mmol/L 06-13-2017 N ot Available conc 08:330400 (16402) Urea nitrogen 9 mg/dL (no code) 7 - 20 mg/dL 06-13-2017 Not A vailable mass conc 08:44-0400 (67669) Urea 16 mg/mg (no code) 6 - 22 mg/mg 06-13-2017 Not Avail able nitrogen/Creatin 08:440400 (12796) ine mass ratio hematology on 2017-06-13 Basophils Auto 0.0 10*3/uL (no code) 0 - 0.3 10*3/uL 06-13-2017 Not Available #/vol (Bld) 08:46-0400 (57727) Basophils/100 1 % (no code) 0.5 - 1 % 06-13-2017 Not Avai lable WBC Auto (Bld) 08:46-0400 (27704) Eosinophils Auto 0.1 10*3/uL (no code) 0.05 - 0.5 06-13-2017 No t Available #/vol (Bld) 10*3/uL 08:46-0400 (03512) Eosinophils/100 1 % (no code) 1 - 4 % 06-13-2017 Not Av ailable WBC Auto (Bld) 08:46-0400 (59733) Erythrocyte 13.3 % (no code) 11.6 - 14.6 % 06-13-2017 Not Av ailable distribution 08:46-0400 (23384) width Auto Ratio (RBC) Hematocrit Auto 38.2 % (no code) 36.1 - 50.3 % 06-13-2017 No t Available Volume Fraction 08:46-0400 (47978) (Bld) Hemoglobin mass 12.5 g/dL (no code) 12.1 - 17.2 g/dL 06-13-2017 Not Available conc (Bld) 08:46-0400 ([id number]) Lymphocytes Auto 1.6 10*3/uL (no code) 0.9 - 2.9 06-13-2017 Not Available #/vol (Bld) 10*3/uL 08:46-0400 (19161) Lymphocytes/100 35 % (no code) 20 - 40 % 06-13-2017 Not Av ailable WBC Auto (Bld) 08:46-0400 (61347) MCH Auto Entitic 29.3 pg (no code) 27 - 31 pg 06-13-2017 Not Available mass (RBC) 08:46-0400 (26576) MCHC Auto mass 32.7 g/dL (no code) 32 - 36 g/dL 06-13-2017 Not Available conc (RBC) 08:46-0400 (02507) MCV Auto Entitic 90 fL (no code) 80 - 100 fL 06-13-2017 Not Available volume (RBC) 08:46-0400 (81090) Monocytes Auto 0.4 10*3/uL (no code) 0.3 - 0.9 06-13-2017 Not A vailable #/vol (Bld) 10*3/uL 08:46-0400 (38733) Monocytes/100 8 % (no code) 2 - 8 % 06-13-2017 Not Avai lable WBC Auto (Bld) 08:46-0400 (67657) Neutrophils Auto 2.6 10*3/uL (no code) 1.7 - 7 10*3/uL 7 Not Available #/vol (Bld) 08:46-0400 (63101) Neutrophils/100 55 % (no code) 40 - 60 % 06-13-2017 Not Av ailable WBC Auto (Bld) 08:46-0400 (05239) Platelets Auto 360 10*3/uL (no code) 150 - 450 06-13-2017 Not A vailable #/vol (Bld) 10*3/uL 08:46-0400 (17111) RBC Auto #/vol 4.27 10*6/uL (no code) 4.2 - 6.1 06-13-2017 Not Available (Bld) 10*6/uL 08:46-0400 (55396) WBC Auto #/vol 4.7 10*3/uL (no code) 3.5 - 10.5 06-13-2017 Not Available (Bld) 10*3/uL 08:46-0400 (10803) other on 2017-05-15 Albumin/Globulin 1.4 {ratio} (no code) 1 - 2.5 {ratio} 7 Not Available [Mass ratio] 07:51-0400 (76936) Erythrocyte 14.5 % (no code) 11.6 - 14.6 % 05-15-2017 Not Av ailable distribution 07:21-0400 (31797) width (RBC) [Ratio] Globulin (S) 3.1 g/dL (no code) 2 - 3.5 g/dL 05-15-2017 Not Av ailable [Mass/Vol] 07:51-0400 (15476) Immature 0.0 10*3/uL (no code) 0 - 0.2 10*3/uL 05-15-2017 Not Available granulocytes 07:21-0400 (81977) (Bld) [#/Vol] Immature 0 % (no code) 0 - 0.5 % 05-15-2017 Not Availabl e granulocytes/100 07: (56749) WBC (Bld) MCHC (RBC) 31.9 g/dL (no code) 32 - 36 g/dL 05-15-2017 Not Avai lable [Mass/Vol] 07:210 (62131) metabolic panel on 2017-05-15 Albumin 4.2 g/dL (no code) 3.4 - 5.4 g/dL 05-15-2017 Not Juliette ilable [Mass/Vol] 07:43-0400 (96415) ALP [Catalytic 119 U/L (H) 44 - 147 U/L 05-15-2017 Not Available activity/Vol] 07:51-0400 (99331) ALT [Catalytic 20 U/L (no code) 4 - 40 U/L 05-15-2017 Not Av ailable activity/Vol] 07:51-0400 (29112) AST [Catalytic 36 U/L (no code) 10 - 34 U/L 05-15-2017 Not A vailable activity/Vol] 07:51-0400 (23992) Bilirubin mg/dL (no code) 0.1 - 1.2 mg/dL 05-15-2017 Not Av ailable [Mass/Vol] 07:51-0400 (35689) Calcium 9.7 mg/dL (no code) 8.5 - 10.2 mg/dL 05-15-2017 Not A vailable [Mass/Vol] 07:51-0400 (11439) Chloride 94 mmol/L (L) 95 - 106 mmol/L 05-15-2017 Not Av ailable [Moles/Vol] 07:43-0400 (05437) CO2 [Moles/Vol] 20 mmol/L (no code) 23 - 29 mmol/L 05-15-2017 N ot Available 07:550400 (82495) Creatinine 0.49 mg/dL (L) 05-15-2017 Not Available [Mass/Vol] 07:43-0400 (98020) GFR/1.73 sq M 122 (no code) 90 - 120 05-15-2017 Not Avai lable predicted among mL/min/{1.73_m2} mL/min/{1.73_m2} 07:430400 (91340) blacks MDRD (S/P/Bld) [Vol rate/Area] GFR/1.73 sq M 106 (no code) 90 - 120 05-15-2017 Not Avai lable predicted among mL/min/{1.73_m2} mL/min/{1.73_m2} 07:43-0400 (69856) non-blacks MDRD (S/P/Bld) [Vol rate/Area] Glucose 87 mg/dL (no code) 60 - 125 mg/dL 05-15-2017 Not Juliette ilable [Mass/Vol] 07:51-0400 (24269) Potassium 4.3 mmol/L (no code) 3.7 - 5.2 mmol/L 05-15-2017 Not Available [Moles/Vol] 07:43-0400 (54938) Protein 7.3 g/dL (no code) 6.4 - 8.3 g/dL 05-15-2017 Not Juliette ilable [Mass/Vol] 07:51-0400 (62623) Sodium 133 mmol/L (L) 135 - 145 mmol/L 05-15-2017 Not Available [Moles/Vol] 07:43-0400 (80909) Urea nitrogen 17 mg/dL (no code) 7 - 20 mg/dL 05-15-2017 Not A vailable [Mass/Vol] 07:51-0400 (66162) Urea 35 mg/mg (H) 6 - 22 mg/mg 05-15-2017 Not Avail able nitrogen/Creatin 07:51-0400 (14195) ine [Mass ratio] hematology on 2017-05-15 Basophils (Bld) 0.0 10*3/uL (no code) 0 - 0.3 10*3/uL 05-15-2017 Not Available [#/Vol] 07:21-0400 (74756) Basophils/100 1 % (no code) 0.5 - 1 % 05-15-2017 Not Avai lable WBC (Bld) 07:21-0400 (28907) Eosinophils 0.1 10*3/uL (no code) 0.05 - 0.5 05-15-2017 Not Juliette ilable (Bld) [#/Vol] 10*3/uL 07:210400 (72102) Eosinophils/100 1 % (no code) 1 - 4 % 05-15-2017 Not Av ailable WBC (Bld) 07: (90871) Hematocrit (Bld) 34.2 % (no code) 36.1 - 50.3 % 05-15-2017 N ot Available [Volume 07: (79062) fraction] Hemoglobin (Bld) 10.9 g/dL (L) 12.1 - 17.2 g/dL 05-15-2017 Not Available [Mass/Vol] 07: (12793) Lymphocytes 2.2 10*3/uL (no code) 0.9 - 2.9 05-15-2017 Not Avai lable (Bld) [#/Vol] 10*3/uL 07: (44630) Lymphocytes/100 36 % (no code) 20 - 40 % 05-15-2017 Not Av ailable WBC (Bld) 07: (71132) MCH (RBC) 29.3 pg (no code) 27 - 31 pg 05-15-2017 Not Availab le [Entitic mass] 07: (23478) MCV (RBC) 92 fL (no code) 80 - 100 fL 05-15-2017 Not Availa ble [Entitic vol] 07: (81293) Monocytes (Bld) 0.5 10*3/uL (no code) 0.3 - 0.9 05-15-2017 Not Available [#/Vol] 10*3/uL 07: (40135) Monocytes/100 8 % (no code) 2 - 8 % 05-15-2017 Not Avai lable WBC (Bld) 07: (13684) Neutrophils 3.2 10*3/uL (no code) 1.7 - 7 10*3/uL 05-15-2017 No t Available (Bld) [#/Vol] 07: (18143) Neutrophils/100 54 % (no code) 40 - 60 % 05-15-2017 Not Av ailable WBC (Bld) 07: (71557) Platelets (Bld) 411 10*3/uL (H) 150 - 450 05-15-2017 Not Available [#/Vol] 10*3/uL 07: (70316) RBC (Bld) 3.72 10*6/uL (L) 4.2 - 6.1 05-15-2017 Not Avail able [#/Vol] 10*6/uL 07:0400 (10999) WBC (Bld) 6.0 10*3/uL (no code) 3.5 - 10.5 05-15-2017 Not Avail able [#/Vol] 10*3/uL 07: (15897) urinalysis on 2017-05-08 Bacteria Note (no code) 05-08-2017 Not Available identified Cx 13:000400 (78323) Nom (U) thyroid on 2017-01-23 TSH Qn 1.740 (no code) 01-23-2017 Not Available 10:500400 (56201) other on 2017-01-23 25-Hydroxyvitami 35.7 (no code) 01-23-2017 Not Avail able n 11:53-0400 (72173) D2+25-Hydroxyvit parrish D3 [Mass/Vol] Albumin/Globulin 1.3 {ratio} (no code) 1 - 2.5 {ratio} 7 Not Available [Mass ratio] 09:070400 (39569) Cobalamin 430 pg/mL (no code) 200 - 900 pg/mL 01-23-2017 Not Av ailable (Vitamin B12) 09:580400 (11863) [Mass/Vol] Erythrocyte 14.2 % (no code) 11.6 - 14.6 % 01-23-2017 Not Av ailable distribution 08: (19850) width (RBC) [Ratio] Globulin (S) 3.6 g/dL (no code) 2 - 3.5 g/dL 01-23-2017 Not Av ailable [Mass/Vol] 09:07-0400 (51763) Immature 0.0 10*3/uL (no code) 0 - 0.2 10*3/uL 01-23-2017 Not Available granulocytes 08: (99377) (Bld) [#/Vol] Immature 0 % (no code) 0 - 0.5 % 01-23-2017 Not Availabl e granulocytes/100 08: (17433) WBC (Bld) MCHC (RBC) 34.0 g/dL (no code) 32 - 36 g/dL 01-23-2017 Not Avai lable [Mass/Vol] 08: (16669) metabolic panel on 2017-01-23 Albumin 4.6 g/dL (no code) 3.4 - 5.4 g/dL 01-23-2017 Not Juliette ilable [Mass/Vol] 09: (76952) ALP [Catalytic 92 U/L (no code) 44 - 147 U/L 01-23-2017 Not Available activity/Vol] 09: () ALT [Catalytic 14 U/L (no code) 4 - 40 U/L 01-23-2017 Not Av ailable activity/Vol] 09: () AST [Catalytic 29 U/L (no code) 10 - 34 U/L 01-23-2017 Not A vailable activity/Vol] 09: () Bilirubin 0.3 mg/dL (no code) 0.1 - 1.2 mg/dL 01-23-2017 Not Av ailable [Mass/Vol] 09: () Calcium 9.8 mg/dL (no code) 8.5 - 10.2 mg/dL 01-23-2017 Not A vailable [Mass/Vol] 09: () Chloride 90 mmol/L (L) 95 - 106 mmol/L 01-23-2017 Not Av ailable [Moles/Vol] 09: (05047) CO2 [Moles/Vol] 25 mmol/L (no code) 23 - 29 mmol/L 01-23-2017 N ot Available 09: () Creatinine 0.60 mg/dL (no code) 01-23-2017 Not Available [Mass/Vol] 09: () GFR/1.73 sq M 115 (no code) 90 - 120 01-23-2017 Not Avai lable predicted among mL/min/{1.73_m2} mL/min/{1.73_m2} 09: (28497) blacks MDRD (S/P/Bld) [Vol rate/Area] GFR/1.73 sq M 99 (no code) 90 - 120 01-23-2017 Not Avai lable predicted among mL/min/{1.73_m2} mL/min/{1.73_m2} 09: (98849) non-blacks MDRD (S/P/Bld) [Vol rate/Area] Glucose 83 mg/dL (no code) 60 - 125 mg/dL 01-23-2017 Not Juliette ilable [Mass/Vol] 09: (47378) Magnesium 2.0 mg/dL (no code) 1.7 - 2.2 mg/dL 01-23-2017 Not Av ailable [Mass/Vol] 09: (28380) Potassium 4.5 mmol/L (no code) 3.7 - 5.2 mmol/L 01-23-2017 Not Available [Moles/Vol] 09: (88048) Protein 8.2 g/dL (no code) 6.4 - 8.3 g/dL 01-23-2017 Not Juliette ilable [Mass/Vol] 09: (53050) Sodium 133 mmol/L (L) 135 - 145 mmol/L 01-23-2017 Not Available [Moles/Vol] 09: (49988) Urea nitrogen 12 mg/dL (no code) 7 - 20 mg/dL 01-23-2017 Not A vailable [Mass/Vol] 09: (09065) Urea 20 mg/mg (no code) 6 - 22 mg/mg 01-23-2017 Not Avail able nitrogen/Creatin 09: (42926) ine [Mass ratio] hematology on 2017-01-23 Basophils (Bld) 0.0 10*3/uL (no code) 0 - 0.3 10*3/uL 01-23-2017 Not Available [#/Vol] 08: (64375) Basophils/100 1 % (no code) 0.5 - 1 % 01-23-2017 Not Avai lable WBC (Bld) 08: (14112) Eosinophils 0.1 10*3/uL (no code) 0.05 - 0.5 01-23-2017 Not Juliette ilable (Bld) [#/Vol] 10*3/uL 08:030400 (60616) Eosinophils/100 1 % (no code) 1 - 4 % 01-23-2017 Not Av ailable WBC (Bld) 08:030400 (52284) Hematocrit (Bld) 37.4 % (no code) 36.1 - 50.3 % 01-23-2017 N ot Available [Volume 08: (62910) fraction] Hemoglobin (Bld) 12.7 g/dL (no code) 12.1 - 17.2 g/dL 01-23-2017 Not Available [Mass/Vol] 08:030400 (50535) Lymphocytes 1.6 10*3/uL (no code) 0.9 - 2.9 01-23-2017 Not Avai lable (Bld) [#/Vol] 10*3/uL 08:030400 (92503) Lymphocytes/100 38 % (no code) 20 - 40 % 01-23-2017 Not Av ailable WBC (Bld) 08:0400 (06305) MCH (RBC) 28.7 pg (no code) 27 - 31 pg 01-23-2017 Not Availab le [Entitic mass] 08:030400 (51586) MCV (RBC) 84 fL (no code) 80 - 100 fL 01-23-2017 Not Availa ble [Entitic vol] 08:030400 (30030) Monocytes (Bld) 0.5 10*3/uL (no code) 0.3 - 0.9 01-23-2017 Not Available [#/Vol] 10*3/uL 08:030400 (84829) Monocytes/100 11 % (no code) 2 - 8 % 01-23-2017 Not Avai lable WBC (Bld) 08:030400 (93176) Neutrophils 2.0 10*3/uL (no code) 1.7 - 7 10*3/uL 01-23-2017 No t Available (Bld) [#/Vol] 08:03-0400 (09687) Neutrophils/100 49 % (no code) 40 - 60 % 01-23-2017 Not Av ailable WBC (Bld) 08:030400 (59633) Platelets (Bld) 321 10*3/uL (no code) 150 - 450 01-23-2017 Not Available [#/Vol] 10*3/uL 08: (98827) RBC (Bld) 4.43 10*6/uL (no code) 4.2 - 6.1 01-23-2017 Not Avail able [#/Vol] 10*6/uL 08: (80000) WBC (Bld) 4.2 10*3/uL (no code) 3.5 - 10.5 01-23-2017 Not Avail able [#/Vol] 10*3/uL 08: (94355) Vital Signs Vital Sign Value Interpretation Reference Date Time Care Prov ider Facility (Normalized) (Normalized) Range BMI (Body Mass 21.7 kg/m2 (no code) 15 - 25 kg/m2 11-23-2018 [facility] Index) 08:17-[address] ([id number]) ( ) BMI (Body Mass 17.37 kg/m2 (no code) 15 - 25 kg/m2 10-15-2018 JOSETTE HENDERSON Community Index) 11:00-[address] [place] [address] (14787) BMI (Body Mass 17.75 kg/m2 (no code) 15 - 25 kg/m2 10-02-2018 [facility] Community Index) 10:40-[address] [place] [address] (70396) BMI (Body Mass 17.63 kg/m2 (no code) 15 - 25 kg/m2 08-03-2018 AKOSUA BENNETT Community Index) 11:20-[email or web address] [place] [address] (63958) BMI (Body Mass 16.92 kg/m2 (no code) 15 - 25 kg/m2 05-05-2018 Jessica EATON Community Index) 15:40-[address] [place] [address] (80293) BMI (Body Mass 17.68 kg/m2 (no code) 15 - 25 kg/m2 02-03-2018 [facility] Community Index) 11:40-[address] [place] [address] ([id number]) BMI (Body Mass 18.85 kg/m2 (no code) 15 - 25 kg/m2 12-12-2017 DOUG MURPHY MIKE Community Index) 13:30-0500 [place]LL [address] [facility] ([id number]) Body height 162.56 cm (no code) cm 05-27-2014 ESTELLA MADL Community 11:33-0400 724[address] [facility] (69861) Body height 162.56 cm (no code) cm 12-17-2013 Doctor [facility] 09:39-0500 Migration [facility] ([id number]) Body height 162.56 cm (no code) cm 07-01-2013 Doctor [facility] 16:48-0400 Migration [facility] ([id number]) Body height 162.56 cm (no code) cm Elie Yu MD [place] ([id number]) Body 97.1 [degF] (no code) 97.8 - 99.0 11-23-2018 Piter GILL [facility] Temperature [degF] 10:32-[address] (67 114) ( ) Body 97.9 [degF] (no code) 97.8 - 99.0 10-15-2018 JOSE KIN G Community Temperature [degF] 11:00-0500 [address] [facility] (97729) Body 96.8 [degF] (no code) 97.8 - 99.0 10-02-2018 ESTELLA MAD L [facility] Temperature [degF] 10:40-0500 [address] [facility] ([id number]) Body 97.2 [degF] (no code) 97.8 - 99.0 08-03-2018 JOLANTA [facility] Temperature [degF] 11:20-0400 erikazUMA [address] [facility] ([id number]) Body 98.3 [degF] (no code) 97.8 - 99.0 05-05-2018 JOLANTA CHAMBERLAINY [facility] Temperature [degF] 15:40-0400 [address]35[address] [facility] (17903) Body 98.2 [degF] (no code) 97.8 - 99.0 02-03-2018 [facility] Temperature [degF] 11:40-0400 8[address] [facility] ([id number]) Body 98.7 [degF] (no code) 97.8 - 99.0 12-12-2017 [facility] [[facility] 13:30-0500 KENVIL [address] [facility] (95638) Body 97.6 [degF] (no code) 97.8 - 99.0 05-27-2014 [facility] temperature [degF] 11:33-0400 10840 [facility] (87864) Body 97.2 [degF] (no code) 97.8 - 99.0 04-27-2014 [facility] Temperature [degF] 14:44-0400 823[address] [facility] (13245) Body 98 [degF] (no code) 97.8 - 99.0 12-17-2013 [facility] temperature [degF] 09:39-0500 [facility] ([id number]) Body 97.3 [degF] (no code) 97.8 - 99.0 07-01-2013 Doctor [facility] temperature [degF] 16:48-0400 [facility] (90167) Body weight 48.26 kg (no code) kg 05-27-2014 [facility] 11:33-0400 49383 [facility] (02717) Body weight 47.77 kg (no code) kg 04-27-2014 [facility] 14:44-0400 22763 [facility] (24286) Body weight 45.81 kg (no code) kg 12-17-2013 Doctor [facility] 09:39-0500 Migration [facility] (53133) Body weight 44.63 kg (no code) kg 07-01-2013 Doctor Com munity 16:48-0400 [facility] (94291) Body weight 2021.198 (no code) Elie morrow MD [place] ([id number]) Blood Pressure 135/ (no code) Systolic: 90 - 11-23-2018 A[facility]a [facility] 62mm[Hg] 120 mm[Hg] 10:32-[address] (6711 [id number]) (Work Phone: Diastolic: 60 ) - 80 mm[Hg] Height 162.56 cm (no code) cm 11-23-2018 Piter Duron [facility] 08:17-[address] ([address]82) ( ) Height 162.56 cm (no code) cm 10-15-2018 JOSE BEATRIZ Co mmunity 11:00-[address] [place] [address] (25807) Height 162.56 cm (no code) cm 10-02-2018 ESTELLA MADL Co mmunity 10:40-[address] [place] [address] (16123) Height 162.56 cm (no code) cm 08-03-2018 JOLANTA Lawson[facility]u [facility] 11:20-[address] (72689) Height 162.56 cm (no code) cm 05-05-2018 [facility] 15:40-[address] [place] [address] (64812) Height 162.56 cm (no code) cm 02-03-2018 ESTELLA MADL Co mmunity 11:40-[address] [place] [address] (25310) Height 162.56 cm (no code) cm 12-12-2017 MARLA mobley 13:30-[address] [place] [address] (71171) Height 162.56 cm (no code) cm 04-27-2014 ESTELLA MADL Co mmunity 14:44-[address] [place] [address] (91128) Pulse (Heart 44 /min (no code) 60 - 100 /min 11-23-2018 Piter [facility] Rate) 10:38-[address] (49813) ( ) Pulse Oximetry 100 % (no code) 95 - 100 % 11-23-2018 Piter [facility] 10:32-[address] (88149) ( ) Respiratory 20 /min (no code) 12 - 20 /min 11-23-2018 Piter GILL [facility] Rate 10:32-[address] (31370) ( ) Weight 57.3 kg (no code) kg 11-23-2018 Piter GILL [facility] 08:17-[address] ([id number]) ( ) Weight 45.9 kg (no code) kg 10-15-2018 JOSE BEATRIZ Com munity 11:00-[address] [place] [address] ([id number]) Weight 46.9 kg (no code) kg 10-02-2018 ESTELLA MADL Com munity 10:40-[address] [place] [address] ([id number]) Weight 46.58 kg (no code) kg 08-03-2018 JOLANTA Commun ity 11:20-[address] [place] [address] ([id number]) Weight 44.72 kg (no code) kg 05-05-2018 JOLANTA EATON C ommunity 15:40-[address] [place] [address] ([id number]) Weight 46.72 kg (no code) kg 02-03-2018 ESTELLA MADL Com munity 11:40-[address] [place] [address] ([id number]) Weight 49.81 kg (no code) kg 12-12-2017 MARLA Villalobos nitbenja 13:30-[address] [place] [address] ([id number]) Interventions No Information Plan of Treatment Normalized Care Care Detail Care Activity Date Care Provider F acility Activity (IPT) Internal PCP [facility] 10-15-2018 ESTELLA MADL [phone] [facility] ([id number]) Patient Education [facility] no information [facility] Services [address] [place] [address] ([id number]) (Wor k ) no information no information no information ESTELLA MADL [address] [place] [address] ([id number]) Goals Patient Goal Desired Goal no information no information Social History Normalized Code Original Code Date Value Tobacco smoking status Tobacco smoking status no information Unknown if ever smoked NHIS NHIS no information no information 11-23-2018 current no information no information 11-23-2018 a few times a [facility] no information no information 11-23-2018 does [...] Admission to day no information (no phone) [facility] - surgery Work Phone: 11-23-2018 06-09-2018 Admission to day no information ISABELLE NEVESROBERTO Work no organization name - surgery Phone: 06-09-2018 05-11-2018 [facility] Hypo-osmolality and JOLANTA HAIRSTON (no [facility] - hyponatremia phone) JOLANTA Hendrix (no nikita ne) 05-11-2018 (no phone) JOLANTA Hendrix (no phone) 05-11-2018 04-22-2020 Emergency department no information [facility] [address] - patient visit (no phone) [facility] 04-22-2020 JANNY RECINOS (no phone) (no phone) TWIN ARRIAZA MD (no phone) HUSEYIN SOLIMAN APRN (no phone) 03-05-2020 Emergency department no information ZENY SAM [facility] [address] - patient visit (no phone) 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) MIKE Luna (no phone) [facility] (no phone) MIKE Luna [facility] (no phone) 03-02-2020 Follow-up encounter no information [facility] (no phone) [facility] (no phone) NEGATED Patient encounter no information [...] encounter no information (no phone) [facility] (no phone) 04-10-2020 Patient encounter no information JOSE Blanca HENDERSON (no [facility] procedure phone) [facility] (no phone) 04-04-2020 Patient encounter no information (no phone) [facility] (no phone) 03-16-2020 Patient encounter no information JOSE HENDERSON VP [employer]ING (no [facility] [address] procedure phone) [facility] (no phone) 03-13-2020 Patient encounter no information (no phone) [facility] (no phone) 03-10-2020 Patient encounter no information (no phone) [facility] (no phone) 03-05-2020 Patient encounter no information ZENY KWOK NN [facility] Latoya roberth BUCK (no phone) [facility] (no phone) 03-02-2020 Patient encounter no information (no phone) [facility] (no phone) (no [facility] phone) [place] (no phone) 02-19-2020 Patient encounter no information MIKE NEWBY (n o [facility] procedure phone) [facility] (no phone) 12-16-2019 Patient encounter no information (no phone) (no nikita ne) [facility] - procedure [facility] 12-16-2019 Center (no phone) [facility]. (no phone) 12-16-2019 Patient encounter no information Piter BUCK V (no [facility] - procedure phone) Piter Dupree (no [...] no information (no phone) (no nikita ne) [facility] - procedure Work Phone: 12-01-2018 11-23-2018 [...] Payers Normalized Payer Value Private Health Insurance [id number] ([id number]) Self-pay no information Unknown [id number]) Evaluation note Note Type Note Facility Evaluation No Assessments Information Available [facility] ([id number]) (Work Phone: ) Assessments and Plan Title: Author: Date: CRMMP/Wellness Visit Goering, Piter V MD 06/20/16 Impression and Plan Diagnosis Seborrheic keratoses (LOL02-FV L82.1, Discharge, Medical). Right hand pain (AAM50-DF M79.641, Discharge, Medical). Inclusion cyst (FEI88-XR L72.0, Discharge, Medical). Adenomatous polyps (YFE84-CE D36.9, Discharge, Medical). Title: [facility] Author: Date: Piter Dupree MD 05/26/15 Assessment/Plan [...] 0 04/03/17 2:22pm Health Care Power of Creative Services Writer No 04/03/17 2:22pm Organ Donor Yes 04/03/17 2:22pm Resuscitation Status Full Code 04/03/17 2:22pm Directive Response Recor ded Date/Time Advance Directives No 3:50pm Health Care Power of Creative Services Writer No 02/09/15 3:50pm Organ Donor Yes 05/16/12 2:50am Resuscitation Status Full Code 02/09/15 3:50pm Directive Response Recor ded Date Advance Directives Y 05/21 2:50am Organ Donor Y 05/16/12 2 :50am Directive Response Recor ded Date/Time Advance Directives Yes 0 04/15/17 12:26pm Health Care Power of Creative Services Writer No 04/15/17 12:26pm Organ Donor Yes 04/15/17 12:26pm Resuscitation Status DNR-Pt Request 04/15/17 12:26pm Directive Response Recor ded Date/Time Advance Directives Yes 0 04/15/17 12:26pm Health Care Power of Creative Services Writer No 04/15/17 12:26pm Organ Donor Yes 04/15/17 12:26pm Directive Response Recor ded Date/Time Advance Directives Yes 0 06/09/18 7:10am Health Care Power of Creative Services Writer No 06/09/18 7:10am Organ Donor Yes 06/09/18 [...] If 11/23/2018 09:07 During Business Hours Call [phone] 11/23/2018 09:07 After Business Hours Call ([facility]) 11/23/2018 09:07 Pending Lab/Results No Pending Lab [...] This clinical document has been generated using [employer] software that has been certified by the Office of the National Coordinator for Health Information Technology (ONC 15.99.04.3023.Diam.[id number]) and the National Committee for [employer] (NCQA, as an eMeasure certified technology). FOR [...] BASED ON T HE PRIMARY CLINICAL RECORDS. [employer]. provides no warranty or guara ntee of [...] RNlabsRequests return callControlled Med RefillUTI symptoms started Viri tra erRNEstablish Care Braulio DALTONVNVNV-FjpBCX-YsvFSU-William
--- OUTSIDE RECORDS SUMMARY | 2020-04-30 14:15 | XMS REPORT | Continuity of Care Document ---
Demographics Preferred Language Unknown Marital Status Unknown Evangelical Affiliation Unknown Race Unknown Ethnic Group Unknown Author Organization Unknown Address Unknown Phone Unavailable Allergies Active Description Code Type Severity Reaction Onset Reported/Identified Relationship to Patient Clinical Status Yes No Known Drug Allergies [id number] Drug Allergy Unknown N/A 05/16/2012 Yes neosporin Drug Allergy 11/24/2012 Yes penicillin Drug Allergy 11/24/2012 Yes No Known Allergies Allergy Unknown N/A 04/30/2013 Yes No Known Allergies No Known Allergies Allergy N/A N/A 04/30/2013 Yes No Known Medication Allergies NKMA N/A N/A 04/28/2014 Yes alendronate sodium [id number] Drug Allergy Unknown N/A 06/02/2018 Yes bacitracin [id number] Drug Allerg y Unknown N/A 06/02/2018 Yes lactose [id number] Drug Allergy Unknown N/A 06/02/2018 Yes neomycin [id number] Drug Allergy Unknown N/A 06/02/2018 Yes Penicillins [id number] Drug Aller gy Unknown N/A 06/02/2018 Yes polymyxin B [id number] Drug Aller gy Unknown N/A 06/02/2018 Yes raloxifene [id number] Drug Allerg y Unknown leg swelling 06/02/2018 [...] PEREZ PSYD 300.02 AN GEN ANXIETY 11/19/2012 IMKE PEREZ PSYD 311 MO DEPRESS NOS 11/19/2012 [...] K 311 MO DEPRESS NOS 11/19/2012 MADL EMBOSSING UNIT OPERATOR, ESTELLA L 300 .02 AN GEN ANXIETY 11/19/2012 MADL EMBOSSING UNIT OPERATOR, ESTELLA L 311 MO DEPRESS NOS 11/19/2012 SPIVEY DO, AURELIA K 300.02 AN GEN ANXIETY 11/19/2012 SPIVEY DO, AURELIA K 311 MO DEPRESS NOS 11/19/2012 WHITE DDS, KALYAN J 300.02 AN GEN ANXIETY 11/19/2012 WHITE DDS, KALYAN J 31 1 MO DEPRESS NOS 11/19/2012 MADL EMBOSSING UNIT OPERATOR, ESTELLA L 300 .02 AN GEN ANXIETY 11/19/2012 MADL EMBOSSING UNIT OPERATOR, ESTELLA L 311 MO DEPRESS NOS 11/24/2012 [...] DO, AURELIA K 737.30 KYPHOSCOLIOSIS 11/24/2012 MADL EMBOSSING UNIT OPERATOR, ESTELLA L 300 .00 anxiety 11/24/2012 MADL EMBOSSING UNIT OPERATOR, ESTELLA L 303 .90 ALCOHOL DEPENDENCE (ALCOHOLISM) 11/24/2012 MADL EMBOSSING UNIT OPERATOR, ESTELLA L 305 .1 NICOTINE DEPENDENCE 11/24/2012 MADL EMBOSSING UNIT OPERATOR, ESTELLA L 401 .1 ESSENTIAL HYPERTENSION BENIGN 11/24/2012 MADL EMBOSSING UNIT OPERATOR, ESTELLA L 737 .30 KYPHOSCOLIOSIS 11/24/2012 SPIVEY [...] DDS, KALYAN J 737.30 KYPHOSCOLIOSIS 11/24/2012 MADL EMBOSSING UNIT OPERATOR, ESTELLA L 300 .00 anxiety 11/24/2012 MADL EMBOSSING UNIT OPERATOR, ESTELLA L 303 .90 ALCOHOL DEPENDENCE (ALCOHOLISM) 11/24/2012 MADL EMBOSSING UNIT OPERATOR, ESTELLA L 305 .1 NICOTINE DEPENDENCE 11/24/2012 MADL EMBOSSING UNIT OPERATOR, ESTELLA L 401 .1 ESSENTIAL HYPERTENSION BENIGN 11/24/2012 MADL EMBOSSING UNIT OPERATOR, ESTELLA L 737 .30 KYPHOSCOLIOSIS 12/22/2012 276.1 [...] AGUSTIN HEREDIAA K 276.1 HYPONATREMIA 12/22/2012 MADL EMBOSSING UNIT OPERATOR ESTELLA L 276 .1 HYPONATREMIA 12/22/2012 PATRIC [...] 296.32 MO DEPRESSIVE RECURRENT MODERATE 01/05/2013 MADABDULLAHI Luna APRNA L 296 .32 MO DEPRESSIVE RECURRENT [...] K 724.2 lower back pain 02/01/2013 MADL EMBOSSING UNIT OPERATOR, ESTELLA L 724 .2 lower back pain 02/01/2013 SPIVEY DO AURELIA K 724.2 lower back pain 02/01/2013 KALYAN WIN DDS 72 4.2 lower back pain 02/01/2013 MADL EMBOSSING UNIT OPERATOR, ESTELLA L 724 .2 lower back pain [...] 296.31 MAJOR DEPRESSION RECURRENT MILD 03/04/2013 MADCheryl EMBOSSING UNIT OPERATOR, ESTELLA L 296 .31 MAJOR DEPRESSION RECURRENT MILD 03/04/2013 PATRIC HEREDIA AURELIA K 296.31 MAJOR DEPRESSION RECURRENT MILD 03/04/2013 KALYAN WIN DDS 296.31 MAJOR DEPRESSION RECURRENT MILD 03/04/2013 MADCheryl EMBOSSING UNIT OPERATOR, ESTELLA L 296 .31 MAJOR DEPRESSION RECURRENT [...] DEPRESSIVE RECURRENT IN FULL REMISSION 09/02/2013 MADL EMBOSSING UNIT OPERATOR, ESTELLA L 296 .36 MO DEPRESSIVE RECURRENT IN FULL REMISSION 09/02/2013 SPIVEY DO AURELIA K 296.36 MO DEPRESSIVE RECURRENT IN FULL REMISSION 09/02/2013 QUIRINO RODGERS, KALYAN Whitney 296.36 MO DEPRESSIVE RECURRENT IN FULL REMISSION 09/02/2013 MADL EMBOSSING UNIT OPERATOR, ESTELLA L 296 .36 MO DEPRESSIVE RECURRENT [...] AURELIA K 461.9 SINUSITIS ACUTE 09/07/2013 MADL EMBOSSING UNIT OPERATOR ESTELLA L 388 .70 OTALGIA UNSPECIFIED 09/07/2013 MADL EMBOSSING UNIT OPERATOR ESTELLA L 461 .9 SINUSITIS ACUTE 09/07/2013 SPIVEY DO AURELIA K 388.70 OTALGIA UNSPECIFIED 09/07/2013 SPIVEY DO AURELIA K 461.9 SINUSITIS ACUTE 09/07/2013 KALYAN WIN DDS 388.70 OTALGIA UNSPECIFIED 09/07/2013 KALYAN WIN DDS 46 1.9 SINUSITIS ACUTE 09/07/2013 MADL EMBOSSING UNIT OPERATOR, ESTELLA L 388 .70 OTALGIA UNSPECIFIED 09/07/2013 MADL EMBOSSING UNIT OPERATOR, ESTELLA L 461 .9 SINUSITIS ACUTE 11/05/2013 DIGNA SANCHEZ MD 364.3 UNSPECIFIED IRIDOCYCLITIS 11/05/2013 DIGNA SANCHEZ MD 364.3 UNSPECIFIED IRIDOCYCLITIS 11/05/2013 ANGE PARNELL MD 364.3 UNSPECIFIED IRIDOCYCLITIS 11/05/2013 AURELIA SPIVEY DO K 364.3 UNSPECIFIED IRIDOCYCLITIS 11/05/2013 MADCheryl EMBOSSING UNIT OPERATOR, ESTELLA L 364 .3 UNSPECIFIED IRIDOCYCLITIS 11/05/2013 SPIVEY AGUSTIN HEREDIAA K 364.3 UNSPECIFIED IRIDOCYCLITIS 11/05/2013 KALYAN WIN DDS 36 4.3 UNSPECIFIED IRIDOCYCLITIS 11/05/2013 MADL EMBOSSING UNIT OPERATOR, ESTELLA L 364 .3 UNSPECIFIED IRIDOCYCLITIS 12/17/2013 ANGE PARNELL MD 733.00 OSTEOPOROSIS UNSPECIFIED 12/17/2013 AURELIA SPIVEY DO K 733.00 OSTEOPOROSIS UNSPECIFIED 12/17/2013 MADCheryl EMBOSSING UNIT OPERATOR, ESTELLA L 733 .00 OSTEOPOROSIS UNSPECIFIED 12/17/2013 AURELIA SPIVEY DO K 733.00 OSTEOPOROSIS UNSPECIFIED 12/17/2013 KALYAN WIN DDS 733.00 OSTEOPOROSIS UNSPECIFIED 12/17/2013 MADL EMBOSSING UNIT OPERATOR, ESTELLA L 733 .00 OSTEOPOROSIS UNSPECIFIED 02/09/2015 HUSEYIN SOLIMAN EMBOSSING UNIT OPERATOR Ot 560.32 FECAL IMPACTION 02/09/2015 HUSEYIN SOLIMAN APRN Ot 564.00 UNSPEC CONSTIPATION 02/09/2015 ANGE PARNELL MD Ot 793.82 02/09/2015 ANGE PARNELL MD Ot V76.12 02/09/2015 ANGE PARNELL MD Ot 793.80 02/09/2015 ANGE PARNELL MD Ot 276.1 02/09/2015 ANGE PARNELL MD Ot 733.00 02/09/2015 ANGE PARNELL MD Ot 737.30 02/13/2015 MADL EMBOSSING UNIT OPERATOR ESTELLA Luna V58 .69 LONG-TERM (CURRENT) USE [...] 737.30 IDIOPATHIC SCOLIOSIS 01/23/2017 SHRUTHIL, ESTELLA L MASTICATOR Ot M25.551 PAIN IN RIGHT HIP 01/23/2017 SHRUTHIL, ESTELLA L MASTICATOR Ot M25.552 PAIN IN LEFT HIP 01/23/2017 SHRUTHIL, ESTELLA L MASTICATOR Ot M41 .9 SCOLIOSIS, UNSPECIFIED 01/23/2017 MADL, ESTELLA L MASTICATOR Ot 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 01/23/2017 MADCheryl ESTELLA L MASTICATOR Ot R25 .1 TREMOR, UNSPECIFIED 02/12/2017 MADL, ESTELLA L MASTICATOR Ot M25.551 PAIN IN RIGHT HIP 02/12/2017 MADL, ESTELLA L MASTICATOR Ot M25.552 PAIN IN LEFT HIP 02/12/2017 ESTELLA SOTOMAYOR MASTICATOR Ot M41 .9 SCOLIOSIS, UNSPECIFIED 02/12/2017 ESTELLA SOTOMAYOR MASTICATOR Ot 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 02/12/2017 ESTELLA SOTOMAYOR MASTICATOR Ot R25 .1 TREMOR, UNSPECIFIED 03/06/2017 KAREN [...] 737.30 IDIOPATHIC SCOLIOSIS 04/02/2017 MADL, ESTELLA L MASTICATOR Ot M25.551 PAIN IN RIGHT HIP 04/02/2017 MADL, ESTELLA L MASTICATOR Ot M25.552 PAIN IN LEFT HIP 04/02/2017 MADL, ESTELLA L MASTICATOR Ot M41 .9 SCOLIOSIS, UNSPECIFIED 04/02/2017 MADL, ESTELLA L MASTICATOR Ot 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 04/02/2017 MADL, ESTELLA L MASTICATOR Ot R25 .1 TREMOR, UNSPECIFIED 04/02/2017 KAREN [...] INTERVERTEBRAL DISC DEGENERATION, 04/02/2017 СВЕТЛАНА ESTELLA L MASTICATOR Ot M25.551 PAIN IN RIGHT HIP 04/02/2017 MADL, ESTELLA L MASTICATOR Ot M25.552 PAIN IN LEFT HIP 04/02/2017 MADLABDULLAHIA Cheryl MASTICATOR Ot M41 .9 SCOLIOSIS, UNSPECIFIED 04/02/2017 MADLABDULLAHIA Cheryl MASTICATOR Ot 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 04/02/2017 СВЕТЛАНАABDULLAHIA L MASTICATOR Ot R25 .1 TREMOR, UNSPECIFIED 04/03/2017 KAREN [...] Ot R55 SYNCOPE AND COLLAPSE 04/15/2017 SHRUTHILESTELLA MASTICATOR Ot M25.551 PAIN IN RIGHT HIP 04/15/2017 MADL, ESTELLA Cheryl MASTICATOR Ot M25.552 PAIN IN LEFT HIP 04/15/2017 MADL, ESTELLA L MASTICATOR Ot M41 .9 SCOLIOSIS, UNSPECIFIED 04/15/2017 MADL, ESTELLA L MASTICATOR Ot 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 04/15/2017 ABDULLAHI SOTOMAYORA L MASTICATOR Ot R25 .1 TREMOR, UNSPECIFIED 04/15/2017 KAREN [...] 737.30 IDIOPATHIC SCOLIOSIS 04/15/2017 ABDULLAHI SOTOMAYORA L MASTICATOR Ot M25.551 PAIN IN RIGHT HIP 04/15/2017 СВЕТЛАНА ESTELLA L MASTICATOR Ot M25.552 PAIN IN LEFT HIP 04/15/2017 ABDULLAHI SOTOMAYORA L MASTICATOR Ot M41 .9 SCOLIOSIS, UNSPECIFIED 04/15/2017 СВЕТЛАНА ESTELLA L MASTICATOR Ot 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 04/15/2017 NEMESIO SOTOMAYORNYA L MASTICATOR Ot R25 .1 TREMOR, UNSPECIFIED 04/15/2017 KAREN [...] Z98.1 ARTHRODESIS STATUS 01/23/2018 NIRANJAN, KATHLEEN E EMBOSSING UNIT OPERATOR Ot F32 .9 MAJOR DEPRESSIVE DISORDER, SINGLE EPISOD 01/23/2018 NIRANJAN, KATHLEEN E EMBOSSING UNIT OPERATOR Ot M81 .0 AGE-RELATED OSTEOPOROSIS W/O CURRENT PAT 01/23/2018 NIRANJAN, KATHLEEN E EMBOSSING UNIT OPERATOR Ot Z47 .1 AFTERCARE FOLLOWING JOINT REPLACEMENT HUGHES 01/23/2018 NIRANJAN KATHLEEN E EMBOSSING UNIT OPERATOR Ot Z96.652 PRESENCE OF LEFT ARTIFICIAL KNEE JOINT 01/28/2018 NIRANJAN KATHLEEN E EMBOSSING UNIT OPERATOR Ot F32 .9 MAJOR DEPRESSIVE DISORDER, SINGLE EPISOD 01/28/2018 NIRANJAN, KATHLEEN E EMBOSSING UNIT OPERATOR Ot M81 .0 AGE-RELATED OSTEOPOROSIS W/O CURRENT PAT 01/28/2018 NIRANJAN, KATHLEEN E EMBOSSING UNIT OPERATOR Ot Z47 .1 AFTERCARE FOLLOWING JOINT REPLACEMENT HUGHES 01/28/2018 NIRANJAN, KATHLEEN E EMBOSSING UNIT OPERATOR Ot Z96.652 PRESENCE OF LEFT ARTIFICIAL KNEE JOINT 02/11/2018 NIRANJAN, KATHLEEN E EMBOSSING UNIT OPERATOR Ot F32 .9 MAJOR DEPRESSIVE DISORDER, SINGLE EPISOD 02/11/2018 NIRANJAN KATHLEEN E EMBOSSING UNIT OPERATOR Ot M81 .0 AGE-RELATED OSTEOPOROSIS W/O CURRENT PAT 02/11/2018 KATHLEEN UREÑA Marycruz EMBOSSING UNIT OPERATOR Ot Z47 .1 AFTERCARE FOLLOWING JOINT REPLACEMENT HUGHES 02/11/2018 KATHLEEN UREÑA EMBOSSING UNIT OPERATOR Ot Z96.652 PRESENCE OF LEFT ARTIFICIAL KNEE JOINT 05/06/2018 JOLANTA EATON EMBOSSING UNIT OPERATOR Ot R 55 SYNCOPE AND COLLAPSE 05/26/2018 EATONJOLANTA Luciano EMBOSSING UNIT OPERATOR Ot R 55 SYNCOPE AND COLLAPSE 06/03/2018 [...] 737.30 IDIOPATHIC SCOLIOSIS 06/08/2018 MADL, ESTELLA L MASTICATOR Ot M25.551 PAIN IN RIGHT HIP 06/08/2018 MADL, ESTELLA L MASTICATOR Ot M25.552 PAIN IN LEFT HIP 06/08/2018 MADL, ESTELLA L MASTICATOR Ot M41 .9 SCOLIOSIS, UNSPECIFIED 06/08/2018 MADL, ESTELLA L MASTICATOR Ot 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 06/08/2018 FAITH SOTOMAYORWNYA L MASTICATOR Ot R25 .1 TREMOR, UNSPECIFIED 06/08/2018 KAREN [...] OTHER INTERVERTEBRAL DISC DEGENERATION, 06/08/2018 JOLANTA EATON EMBOSSING UNIT OPERATOR Ot R 55 SYNCOPE AND COLLAPSE 06/08/2018 [...] Ot M41.9 SCOLIOSIS, UNSPECIFIED 02/19/2020 KVNG, MIKE MASTICATOR Ot M54.9 DORSALGIA, UNSPECIFIED 02/19/2020 KVNG, MIKE MASTICATOR Ot R55 SYNCOPE AND COLLAPSE 02/19/2020 KVNG, MIKE POSADASP Ot S80.211A ABRASION, RIGHT KNEE, INITIAL ENCOUNTER 02/19/2020 KVNG, MIKE POSADASP Ot Z23 ENCOUNTER FOR IMMUNIZATION 02/19/2020 KVNG, MIKE POSADASP Ot Z79.899 OTHER SUPERVISOR CARPENTERS (CURRENT) DRUG THERAPY 02/19/2020 KVNG, MIKE POSADASP Ot Z87.891 PERSONAL HISTORY OF NICOTINE DEPENDENCE 02/19/2020 KVNG, MIKE POSADASP Ot Z88.0 ALLERGY STATUS TO PENICILLIN 02/19/2020 KVNG, MIKE MASTICATOR Ot Z88.8 ALLERGY STATUS TO OTH DRUG/MEDS/BIOL SUB 02/19/2020 KVNG, MIKE MASTICATOR Ot Z96.652 PRESENCE OF LEFT ARTIFICIAL KNEE JOINT 02/21/2020 KVNG, MIKE MASTICATOR Ot F32.9 MAJOR DEPRESSIVE DISORDER, SINGLE EPISOD 02/21/2020 KVNG, MIKE MASTICATOR Ot F41.9 ANXIETY DISORDER, UNSPECIFIED 02/21/2020 KVNG, MIKE MASTICATOR Ot 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 02/21/2020 KVNG, MIKE MASTICATOR Ot M41.9 SCOLIOSIS, UNSPECIFIED 02/21/2020 KVNG, MIKE MASTICATOR Ot M54.9 DORSALGIA, UNSPECIFIED 02/21/2020 KVNG, MIKE MASTICATOR Ot R55 SYNCOPE AND COLLAPSE 02/21/2020 KVNG, MIKE MASTICATOR Ot S80.211A ABRASION, RIGHT KNEE, INITIAL ENCOUNTER 02/21/2020 KVNG, MIKE MASTICATOR Ot Z23 ENCOUNTER FOR IMMUNIZATION 02/21/2020 KVNG, MIKE MASTICATOR Ot Z79.899 OTHER INTERMEDIATE (CURRENT) DRUG THERAPY 02/21/2020 KVNG, MIKE MASTICATOR Ot Z87.891 PERSONAL HISTORY OF NICOTINE DEPENDENCE 02/21/2020 KVNG, MIKE MASTICATOR Ot Z88.0 ALLERGY STATUS TO PENICILLIN 02/21/2020 KVNG, MIKE MASTICATOR Ot Z88.8 ALLERGY STATUS TO OTH DRUG/MEDS/BIOL SUB 02/21/2020 KVNG, MIKE MASTICATOR Ot Z96.652 PRESENCE OF LEFT ARTIFICIAL KNEE JOINT 02/25/2020 KVNG, MIKE MASTICATOR Ot F32.9 MAJOR DEPRESSIVE DISORDER, SINGLE EPISOD 02/25/2020 KVNG, MIKE MASTICATOR Ot F41.9 ANXIETY DISORDER, UNSPECIFIED 02/25/2020 KVNG, MIKE MASTICATOR Ot 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 02/25/2020 KVNG, MIKE MASTICATOR Ot M41.9 SCOLIOSIS, UNSPECIFIED 02/25/2020 KVNG, MIKE MASTICATOR Ot M54.9 DORSALGIA, UNSPECIFIED 02/25/2020 KVNG, MIKE MASTICATOR Ot R55 SYNCOPE AND COLLAPSE 02/25/2020 KVNG, MIKE MASTICATOR Ot S80.211A ABRASION, RIGHT KNEE, INITIAL ENCOUNTER 02/25/2020 KVNG, MIKE MASTICATOR Ot Z23 ENCOUNTER FOR IMMUNIZATION 02/25/2020 KVNG, MIKE MASTICATOR Ot Z79.899 OTHER SUPERVISOR CARPENTERS (CURRENT) DRUG THERAPY 02/25/2020 KVNG, MIKE MASTICATOR Ot Z87.891 PERSONAL HISTORY OF NICOTINE DEPENDENCE 02/25/2020 KVNG, MIKE MASTICATOR Ot Z88.0 ALLERGY STATUS TO PENICILLIN 02/25/2020 KVNG MIKE KEYONNA Ot Z88.8 ALLERGY STATUS TO OTH DRUG/MEDS/BIOL SUB 02/25/2020 MIKE CALDERON KEYONNA Ot Z96.652 PRESENCE OF LEFT ARTIFICIAL KNEE JOINT 03/05/2020 NIKAI BUCK, ZENY Hwang Ot D64.9 ANEMIA, UNSPECIFIED [...] SCALE, BEST VERBAL RESPONSE, ORIENT 03/05/2020 ZENY MNOTEJO MD Ot R40.2362 COMA SCALE, BEST MOTOR RESPONSE, OBEYS C 03/05/2020 ZENY MONTEJO MD Ot W18.2XXA FALL IN (INTO) SHOWER OR EMPTY BATHTUB, 03/05/2020 ZENY MONTEJO MD Ot Y92.[address] IN [facility] NON-INSTITUT (PRIVATE 03/05/2020 NIKIA BUCK, ZENY Hwang Ot Z82.49 FAMILY HX OF ISCHEM HEART DIS AND OTH DI 03/05/2020 NIKIA BUCK, ZENY Hwang Ot Z87.891 PERSONAL HISTORY OF NICOTINE DEPENDENCE 03/05/2020 NIKIA BUCK, ZENY Hwang Ot Z88.0 ALLERGY STATUS TO PENICILLIN 03/05/2020 ZENY MONTEOJ MD Ot Z88.8 ALLERGY STATUS TO OTH DRUG/MEDS/BIOL SUB 03/05/2020 ZENY MONTEJO MD Ot Z96.652 PRESENCE OF LEFT ARTIFICIAL KNEE JOINT 03/08/2020 NIKIA BUCK, ZENY Hwang Ot D64.9 ANEMIA, UNSPECIFIED 03/08/2020 ZENY MONTEJO MD Ot F32.9 MAJOR DEPRESSIVE DISORDER, SINGLE EPISOD 03/08/2020 ZENY MONTEJO MD Ot F41.9 ANXIETY DISORDER, UNSPECIFIED 03/08/2020 EZNY MONTEJO MD, Ot 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 03/08/2020 [...] MONTEJO MD Ot Y92.[address] IN [facility] NON-INSTITUT (PRIVATE 03/08/2020 ZENY MONTEJO MD [...] Z87.891 PERSONAL HISTORY OF NICOTINE DEPENDENCE 03/11/2020 ZEYN MONTEJO MD, Ot Z88.0 ALLERGY STATUS TO [...] ARTIFICIAL KNEE JOINT 03/17/2020 KING JOSE D EMBOSSING UNIT OPERATOR Ot R29 .6 REPEATED FALLS 03/21/2020 JOSE HENDERSON EMBOSSING UNIT OPERATOR Ot R29 .6 REPEATED FALLS 04/25/2020 HUSEYIN [...] Code Description [place] [address] ROUT INE VENIPUNCTURE 11/24/2012 40371 PSYC H DIAGNOSTIC EVALUATION 11/24/2012 11872 MAGNESIUM 11/24/2012 70122 CBC 11/24/2012 92748 CMP 11/24/2012 [id number] GF R CALC (RESULT ONLY) 11/24/2012 64591 TSH 11/25/2012 37798 XRAY SCOLIOSIS SERIES 12/01/2012 33436 A1C (IN-HOUSE) 12/07/2012 PHYSI Phys ical Therapy, [facility] 12/07/2012 19027 CMP 12/22/2012 [id number] GF R CALC (RESULT ONLY) 12/22/2012 03284 CALC IUM IONIZED 12/22/2012 12666 HEPA TITIS PROFILE 12/22/2012 64632 HIV ANTIBODIES (RML) 12/23/2012 06683 PSYT X PT&/FAMILY 45 MINUTES 12/28/2012 64725 PSYT X PT&/FAMILY 45 MINUTES 01/06/2013 20425 ROUT INE VENIPUNCTURE 01/21/2013 35770 BMP 01/21/2013 69063 MAGNESIUM 01/21/2013 [id number] GF R CALC (RESULT ONLY) 01/21/2013 Physical P hysical Therapy, [facility] 02/02/2013 29605 PSYT X PT&/FAMILY 45 MINUTES 02/03/2013 65241 PSYT X PT&/FAMILY 45 MINUTES 03/04/2013 71210 ROUT INE VENIPUNCTURE 03/24/2013 94704 MAMM OGRAM, SCREENING 03/24/2013 44822 BMP 03/24/2013 [id number] GF R CALC (RESULT ONLY) 03/24/2013 48361 ROUT INE VENIPUNCTURE 03/30/2013 89097 URIN E CREATININE (RANDOM) 03/30/2013 75679 URIN E OSMOLALITY 03/31/2013 31745 URIN E SODIUM, RANDOM 03/31/2013 84371 OSMO LALITY 03/31/2013 57721 ROUT INE VENIPUNCTURE 07/01/2013 34283 BMP 07/02/2013 [id number] GF R CALC (RESULT ONLY) 07/02/2013 70229 BONE DENSITY, DEXA 07/30/2013 55078 PSYT X PT&/FAMILY 30 MINUTES 09/02/2013 54500 ROUT INE VENIPUNCTURE 11/05/2013 96279 CMP 11/05/2013 5104031 GF R CALC (RESULT ONLY) 11/05/2013 77473 CRP 11/05/2013 46514 XRAY CHEST 2 VIEW 11/16/2013 69192 ROUT INE VENIPUNCTURE 05/27/2014 56523 CMP 05/27/2014 13352 CBC 05/27/2014 36935 ROUT INE VENIPUNCTURE 09/19/20149420061 GF R CALC (RESULT ONLY) 09/19/2014 61213 CMP 09/19/2014 35359 ROUT INE VENIPUNCTURE 02/13/2015 21579 CMP 02/13/20152953431 GF R CALC (RESULT ONLY) 02/13/2015 77484 Erma odic comprehensive preventive medicine reevaluation and management of an individual including an age and gender appropriate history, examination, counseling/anticipatory guidance/risk factor reduc 016 [id number] FU SEEMA 2-7 T JT W AUTOL SUB, POST APPR P 04/11/2017 [id number] FU SEEMA T-LUM JT W AUTOL SUB, POST APPR P 04/11/2017 [id number] FU SEEMA LUM JT W INTBD FUS DEV, ANT APPR 04/11/2017 [id number] FU SEEMA 2-4 L JT W AUTOL SUB, POST APPR P 04/11/2017 [id number] FU SEEMA LUMSAC JT W AUTOL SUB, POST APPR 04/11/2017 [id number] FU SEEMA LUMSAC JT W INTBD FUS DEV, ANT AP 04/11/2017 [id number] FU SEEMA OF SACROCOCCYGEAL JOINT WITH AUTO [...] ABO+Rh group ABP NRG Transfusion band number [id number] NRG Blood group antibody screen NEGATIVE NR G Methicillin resistant Staphylococcus aur eus (MRSA) screening culture - 04/03/17 14:45 Methicillin resistant Staphylococcus aureus (MRSA) scr eening culture NEG NRG RED CELLS LEUKO REDUCED AS1 - 04/11/17 0 7:57 RED CELLS LEUKO REDUCED AS1 P RSMD TRFSD 04/11/17 1258 NRG Blood type T Indirect antibody screen [facility] - 04/11/17 07:57 ABO+Rh group ABP NRG Transfusion band number [id number] NR Blood group antibody screen NEGATIVE NR G Whole blood hemoglobin and hematocrit [facility] - 04/11/17 12:18 Venous blood hemoglobin measurement (mass/volume) 10.7 g/dL 11.5-16.0 Blood hematocrit (volume fraction) 32 % 35-52 Whole blood hemoglobin and hematocrit [facility] 04/11/17 14:12 Venous blood hemoglobin measurement [...] 7-25 CREATININE 0.63 mg/dL 0.50-0.99 eGFR NON-AFR. MALAWIAN 96 mL/min/1.73m2 > OR = 60 eGFR [...] sediment by ligh t microscopy FEW JEANCARLOS PHOSPHATE NRG Bacterial urine culture - 03/05/20 10:30 Bacterial urine culture NG NRG CMP - 03/13/20 08:21 GLUCOSE 88 mg/dL 65-99 UREA NITROGEN (BUN) 12 mg/dL 7-25 CREATININE 0.68 mg/dL 0.50-0.99 eGFR NON-AFR. MALAWIAN 93 mL/min/1.73m2 > OR = 60 eGFR [...] 7-25 CREATININE 0.55 mg/dL 0.50-0.99 eGFR NON-AFR. MALAWIAN 100 mL/min/1.73m2 > OR = 60 eGFR [...] blood by coagulation as say 0.8 0.8-1.4 Complete blood count (CBC) with automate d white blood cell (WBC) differential - 04/30/20 12:10 Blood leukocytes automated count (number/volume) 4.4 10*3/uL 4.3-11.0 Blood erythrocytes automated count (number/volume) 4.05 10*6/uL 4.35-5.85 Venous blood hemoglobin measurement (mass/volume) 11.5 g/dL 11.5-16.0 Blood hematocrit (volume fraction) 33 % 35-52 Automated erythrocyte mean corpuscular volume 82 [ foz_us] 80-99 Automated erythrocyte mean corpuscular h emoglobin (mass per erythrocyte) 28 pg 25-34 Automated erythrocyte mean corpuscular h emoglobin concentration measurement (mass/volume) 35 g/dL 32-36 Automated erythrocyte distribution width ratio 13. 9 % 10.0- 14.5 Automated blood platelet count (count/volume) 434 10*3/uL 130-400 Automated blood platelet mean volume measurement 8.1 [foz_us] 7.4-10.4 Automated blood neutrophils/100 leukocytes 63 % 42-75 Automated blood lymphocytes/100 leukocytes 22 % 12-44 Blood monocytes/100 leukocytes 14 % 0-12 Automated blood eosinophils/100 leukocytes 1 % 0-10 Automated blood basophils/100 leukocytes 1 % 0-10 Blood neutrophils automated count (number/volume) 2.8 10*3 1.8-7.8 Blood lymphocytes automated count (number/volume) 1.0 10*3 1.0-4.0 Blood monocytes automated count (number/volume) 0. 6 10*3 0.0-1.0 Automated eosinophil count 0.0 10*3/uL 0 .0-0.3 Automated blood basophil count (count/volume) 0.0 10*3/uL 0.0-0.1 Comprehensive metabolic panel - 04/30/20 12:10 Serum or plasma sodium measurement (moles/volume) 121 mmol/L 135-145 Serum or plasma potassium measurement (moles/volume) 4.0 mmol/L 3.6-5.0 Serum or plasma chloride measurement (moles/volume) 90 mmol/L 98-107 Carbon dioxide 20 mmol/L 21-32 Serum or plasma anion gap determination (moles/volume) 11 mmol/L 5-14 Serum or plasma urea nitrogen measurement (mass/volume ) 8 mg/dL 7-18 Serum or plasma creatinine measurement (mass/volume) 0.60 mg/dL 0.60-1.30 Serum or plasma urea nitrogen/creatinine [...] plasma alkaline phosphatase brittany surement (enzymatic activity/volume) 59 U/L 40-136 Serum or plasma aspartate aminotransfera se measurement (enzymatic activity/volume) 50 U/L 5-34 Serum or plasma alanine aminotransferase measurement (enzymatic activity/volume) 10 U/L 0-55 Serum or plasma protein measurement (mass/volume) 7.8 g/dL 6.4-8.2 Serum or plasma albumin measurement (mass/volume) 4.0 g/dL 3.2-4.5 CALCIUM CORRECTED 9.3 mg/dL 8.5-10.1 Complete urinalysis with reflex to cultu re - 04/30/20 12:40 Urine color determination YELLOW NRG Urine clarity determination CLEAR NR G Urine pH measurement by test strip 7.0 5-9 Specific gravity of urine by test strip 1.015 1.016-1.022 Urine protein assay by test strip, semi-quantitative NEGATIVE NEGATIVE Urine glucose detection by automated test strip NE GATIVE NEGATIVE Erythrocytes detection in urine sediment by light micr oscopy TRACE-I NEGATIVE Urine ketones detection by automated test strip 2+ NEGATIVE Urine nitrite detection by test strip NEGATIVE NEGATIVE Urine total bilirubin detection by test strip NEGA TIVE NEGATIVE Urine urobilinogen measurement by automated test strip (mass/volume) 0.2 mg/dL < = 1.0 Urine leukocyte esterase detection by dipstick NEG ATIVE NEGATIVE Automated urine sediment erythrocyte cou nt by microscopy (number/high power field) RARE NRG Automated urine sediment leukocyte count by microscopy (number/high power field) NONE NRG Bacteria detection in urine sediment by light microsco py NEGATIVE NRG Squamous epithelial cells detection in u rine sediment by light microscopy NONE NRG Crystals detection in urine sediment by light microsco py NONE NRG Casts detection in urine sediment by light microscopy NONE NRG Mucus detection in urine sediment by light microscopy NEGATIVE NRG Complete urinalysis with reflex to culture NO NRG Amorphous sediment detection in urine sediment by ligh t microscopy LARGE JEANCARLOS URATES NRG Radiology Report from [facility] on 12/01/19 15:47:[address] [place] [address] Mammography Report Signed Patient: Sherly Vale MR#: [id number] : 1955 Age/Sex: 63 / F ADM Date: 12/01/18 Loc: . DIS Date: = = = = = [...] BI w/praneeth Reason for Exam(s): mammo screening #[id number] - MM SCREENING VENUS BI W/PRANEETH BILATERAL DIGITAL SCREENING MAMMOGRAM 3D/2D WITH CAD: 12/01/2018 CLINICAL: Z12.31-Encounter for screening mammogram. Digital Breast Tomosynthesis was performed. Current study was also evaluated with a Computer Aided Detection (CAD) system. Comparison is made to exams dated: 07/26/2016 mammogram - [facility], 06/08/2015 mammogram, 05/31/2015 mammogram, [facility] tissue of both breasts is extremely dense, which lowers the sensitivity of mammography. No significant masses, calcifications, or other findings are seen in either breast. IMPRESSION: NEGATIVE There is no mammographic evidence of malignancy. A 1 year screening mammogram is recommended. The patient was notified of the results. Dr. [facility]/:12/01/2018 15:29:52 [employer]: Seema Trivedi RT(R)(M), [facility] [place] letter sent: Normal/Benign Category 1/2 BI-RADS: 1 Negative Radiology Report from [facility] on 12/16/19 12:11:00 [facility] [address] Mammography Report Signed Patient: Sherly Vale MR#: [id number] : 1955 Age/Sex: 64 / F ADM Date: 12/16/19 Loc: . DIS Date: = = = = = [...] BI w/praneeth Reason for Exam(s): screening mammo #[id number] - MM SCREENING VENUS BI W/PRANEETH BILATERAL DIGITAL SCREENING MAMMOGRAM 3D/2D WITH CAD: 12/16/2019 CLINICAL: Z12.31-Encounter for screening mammogram. Digital Breast Tomosynthesis was performed. Current study was also evaluated with a Computer Aided Detection (CAD) system. Comparison is made to exams dated: 12/01/2018 mammogram and 07/26/2016 mammogram - [facility] [place]. The tissue of both breasts is extremely dense, which lowers the sensitivity of mammography. No significant masses, calcifications, or other findings are seen in either breast. IMPRESSION: NEGATIVE There is no mammographic evidence of malignancy. A 1 year screening mammogram is recommended. The patient was notified of the results. Dr. 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 Visit Date/Time Discharge Status Pt. Type Provider Facility Loc./Unit Complaint [id number] 01/23/2017 11:09:00 Document Registration [id number] 05/08/2017 12:09:00 Document Registration [id number] 06/13/2017 07:06:00 Document Registration [id number] 05/15/2017 07:05:00 Document Registration [id number] 04/22/2020 13:06:00 15:18:00 DIS Outpatient HUSEYIN SOLIMAN EMBOSSING UNIT OPERATOR [facility] ER BLOOD IN STOOL / WEAKNE SS [id number] 03/16/2020 07:39:00 23:59:59 CLS Outpatient JOSE HENDERSON APRN [facility] RAD FREQUENT FALLS [id number] 03/05/2020 09:01:00 11:11:00 DIS Emergency ZENY MONTEJO MD [facility] ER FALL [id number] 02/19/2020 13:28:00 15:12:00 DIS Emergency MIKE CALDERON [facility] ER SYNCOPE [id number] 06/09/2018 06:59:00 018 10:34:00 DIS Outpatient ISABELLE OLSEN DO [facility] ENDO SCREENING [id number] 06/02/2018 05:35:00 018 23:59:59 CLS Outpatient ISABELLE OLSEN DO [facility] PREOP COLONOSCOPY [id number] 05/05/2018 16:03:00 018 23:59:59 CLS Outpatient JOLANTA EATON EMBOSSING UNIT OPERATOR [facility] RAD VASOVAGAL SYNCO PE [id number] 01/23/2018 10:54:00 018 11:51:00 DIS Outpatient KATHLEEN UREÑA EMBOSSING UNIT OPERATOR [facility] REHAB S/P L TKR [id number] 08/21/2017 10:00:00 017 11:54:00 DIS Outpatient KAREN MARY MD [facility] REHAB S/P T-9-PELVIS PSF [id number] 08/06/2017 09:10:00 017 00:01:00 DIS Outpatient KAREN MARY MD [facility] REHAB S/P T-9-PELVIS PSF [id number] 04/15/2017 11:45:00 017 09:09:00 DIS Inpatient ISABELLE PHAN MD [facility] IRF SCOLIOSIS [id number] 04/11/2017 07:32:00 017 11:45:00 DIS Inpatient KAREN MARY MD [facility] 4TH SCOLIOSIS [id number] 04/03/2017 14:11:00 017 14:45:00 DIS Outpatient KAREN MARY MD [facility] PREOP SCOLIOSIS [id number] 03/06/2017 15:32:00 017 23:59:59 CLS Outpatient KAREN MARY MD [facility] RAD NECK PAIN, SCOLIOSIS,LO W BACK PAIN [id number] 03/05/2017 15:35:00 017 23:59:59 CLS Outpatient KAREN MARY MD [facility] RAD NECK PAIN, SCOLIOSIS,LO W BACK PAIN [id number] 01/22/2017 09:45:00 017 23:59:59 CLS Outpatient ESTELLA SOTOMAYOR [facility] RAD TREMOR OF UNKNOWN ORIGI N,PAIN IN HIP,SCOLIOSIS [id number] 02/09/2015 15:52:00 015 17:25:00 DIS Emergency HUSEYIN SOLIMAN EMBOSSING UNIT OPERATOR [facility] ER ANAL LEAKAGE [id number] 07/30/2013 08:33:00 23:59:59 CLS Outpatient ANGE PARNELL MD [facility] RAD KYPHOSCOLIOSIS [id number] 04/20/2013 07:32:00 23:59:59 CLS Outpatient ANGE PARNELL MD [facility] RAD ABN MAMMO [id number] 03/31/2013 10:24:00 23:59:59 CLS Outpatient ANGE PARNELL MD [facility] RAD SCREENING [id number] 02/12/2013 14:00:00 15:01:00 DIS Outpatient ANGE PARNELL MD [facility] REHAB CHRONIC BACK PA IN, SEVERE SCOLIOSIS [id number] 04/30/2020 12:36:00 Document Registration [id number] 12/02/2012 08:07:00 Document Registration [id number] 05/16/2012 02:50:00 Document Registration [id number] 04/10/2020 09:00:00 04/10/2020 23:59:5 9 CLS Outpatient JOSE HENDERSON [facility] [id number] 04/04/2020 08:30:00 Document Registration [id number] 03/13/2020 09:00:00 Document Registration [id number] 03/02/2020 14:40:00 Document Registration [id number] 07/27/2019 09:20:00 Document Registration [id number] 04/13/2019 10:20:00 Document Registration [id number] 10/02/2018 09:40:00 Document Registration [id number] 05/05/2018 14:40:00 Document Registration [id number] 02/03/2018 10:40:00 Document Registration [id number] 10/15/2017 08:00:00 Document Registration [id number] 02/13/2015 08:54:00 02/13/2015 23:59: 59 CLS Outpatient ESTELLA SOTOMAYOR APRN [id number] 01/16/2015 00:00:00 01/16/2015 23:59: 59 CLS Outpatient KALYAN WIN DDS [id number] 09/19/2014 08:09:00 09/19/2014 23:59: 59 CLS Outpatient PATRIC HEREDIA AURELIA Ramsey [id number] 05/27/2014 09:33:00 05/27/2014 23:59: 59 CLS Outpatient ESTELLA SOTOMAYOR APRN Cheryl [id number] 04/27/2014 13:44:00 04/27/2014 23:59: 59 CLS Outpatient PATRIC HEREDIA AURELIA Ramsey [id number] 12/17/2013 08:39:00 12/17/2013 23:59: 59 CLS Outpatient ANGE PARNELL MD [id number] 11/16/2013 09:06:00 11/16/2013 23:59: 59 CLS Outpatient DIGNA SANCHEZ MD [id number] 11/05/2013 09:52:00 11/05/2013 23:59: 59 CLS Outpatient DIGNA SANCHEZ MD [id number] 09/07/2013 17:14:00 09/07/2013 23:59: 59 CLS Outpatient PATRIC HEREDIAAURELIA [id number] 09/02/2013 08:52:00 09/02/2013 23:59: 59 CLS Outpatient MIKE PEREZ PSYD [id number] 07/01/2013 15:48:00 07/01/2013 23:59: 59 CLS Outpatient ANGE PARNELL MD [id number] 02/03/2013 08:46:00 02/03/2013 23:59: 59 CLS Outpatient MIKE PEREZ PSYD [id number] 01/28/2013 10:39:00 01/28/2013 23:59: 59 CLS Outpatient [id number] 01/21/2013 08:17:00 01/21/2013 23:59: 59 CLS Outpatient ANGE PARNELL MD [id number] 01/05/2013 08:36:00 01/05/2013 23:59: 59 CLS Outpatient [id number] 12/25/2012 08:44:00 12/25/2012 23:59: 59 CLS Outpatient DIGNA SANCHEZ MD [id number] 12/22/2012 10:23:00 12/22/2012 23:59: 59 CLS Outpatient [id number] 12/07/2012 07:51:00 12/07/2012 23:59: 59 CLS Outpatient MIKE PEREZ PSYD [id number] 11/24/2012 10:41:00 11/24/2012 23:59: 59 CLS Outpatient [id number] 03/30/2013 09:20:00 Document Registration [id number] 03/24/2013 09:31:00 Document Registration [id number] 03/04/2013 09:42:00 Document Registration [id number] 12/16/2019 07:42:00 020 07:43:00 DIS Outpatient RICHELLE DONOHUE MD.BC screening mammo [id number] 12/01/2018 14:50:00 019 14:51:00 DIS Outpatient RICHELLE DONOHUE MD.BC mammo screening [id number] 11/23/2018 07:09:00 019 09:51:00 DIS Outpatient ZULEIKA BUCK, JD Jackson [facility] AMADA Personal hx adenomatous poly ps [id number] 07/26/2016 14:43:00 016 23:59:59 CLS Outpatient [facility] WC. [id number] 08/30/2015 12:45:23 Document Registration [id number] 06/20/2016 14:20:00 016 23:59:00 DIS Outpatient Richelle Donohue V [facility] TCPA wellness exam [id number] 05/26/2015 12:38:00 015 23:59:00 DIS Outpatient Richelle Donohue V [facility] FM cpe [id number] 06/26/2015 12:36:00 Document Registration [id number] 10/18/2016 08:07:00 Document Registration
--- NOTE | 2020-04-30 14:31 | NUR ---
LOUISE VALE admitted to room 407-1, with an admitting diagnosis of HYPONATREMIA, on 04/30/20 from ED via W/C, accompanied by STAFF. LOUISE VALE introduced to surroundings, call light, bed controls, phone, TV, temperature control, lights, meal times, smoking policy, visitor policy, side rail policy, bathrooms and showers. Patient Rights given to patient in the handbook. LOUISE VALE verbalizes understanding that [facility] is not responsible for the loss or damage to any personal effects or valuables that are kept in the patients posession during their hospitalization. The following Patient Care Plans were discussed with the : Discharge Planning, FALLS, ELECTROLYTE IMBALANCE AND KNOWLEDGE LOUISE VALE verbalizes understanding of Interdisciplinary Patient Education.
[2020-04-30 14:52] VITALS: BP 186/96
[2020-04-30] MEDS: NS IV 1000 ML 1,000 ML IV SCH ×2 (15:26→22:00)
[2020-04-30] MEDS ORDERED: PRIM50TA33 PO (15:37)
[2020-04-30] MEDS ORDERED: CARB1TAB44 PO (15:39)
[2020-04-30] MEDS ORDERED: ACETAMINOPHEN 500 MG TAB (TYLENOL) PO PRN (16:00)
[2020-04-30] MEDS ORDERED: ALPRAZolam 0.25 MG (XANAX) TAB PO PRN (16:00)
[2020-04-30] MEDS ORDERED: HYDROcodone/APAP 5 MG/325 MG (LORTAB) TAB PO PRN (16:00)
[2020-04-30] MEDS ORDERED: LOPERAMIDE 2 MG (IMODIUM) TABLET PO PRN (16:00)
[2020-04-30] MEDS ORDERED: DOCUSATE SODIUM 100 MG (COLACE) CAP PO PRN (16:00)
[2020-04-30] MEDS ORDERED: ONDANSETRON 4 MG/2 ML (SDV) Z0FRAN IVP PRN (16:00)
[2020-04-30] MEDS ORDERED: MELATONIN 3 MG TABLET PO PRN (16:00)
[2020-04-30] MEDS ORDERED: diphenhydrAMINE 25 MG TAB (BENADRYL) PO PRN (16:00)
[2020-04-30] MEDS ORDERED: ONDANSETRON 4 MG (ZOFRAN) ORAL DISSOLVE TAB PO PRN (16:00)
[2020-04-30] MEDS ORDERED: LORazepam 0.5 MG (ATIVAN) TABLET PO PRN (16:00)
[2020-04-30] MEDS ORDERED: CALCIUM CARBONATE 500 MG (TUMS) TAB.CHEW PO PRN (16:00)
[2020-04-30] MEDS ORDERED: ENOXAPARIN 40 MG/0.4 ML (LOVENOX) SYR SC SCH (16:00)
[2020-04-30] MEDS: ENOXAPARIN 30 MG/0.3 ML (LOVENOX) SYR SC SCH (16:16)
[2020-04-30 16:22] VITALS: BP 161/89
[2020-04-30] MEDS ORDERED: PATIENT MAY USE OWN MEDS, ALL MC SCH (17:15)
--- NOTE | 2020-04-30 17:46 | NUR ---
NOTE THAT PT'S HOME MEDS PRIMIDONE 50 MG TAB AND CARBIDOPE/LEVODOPE WERE SEND DOWN TO PHARMACY FOR PT USE -- FOUND THEM IN [facility] PHARMACY REQUESTED ORDER DIFFERENT THEN THIS RN PUT IN -- FOUND MEDS IN [facility] AFTER 1700 -- PT HOME MEDS PUT IN HER ROOM DRAWER FOR PT (SEE DX)-- WILL PASS ON TO SEND DOWN TO PHARMACY IN AM FOR USE
[2020-04-30 20:15] VITALS: BP 126/66
[2020-04-30] MEDS: polyethylene glycoL POWDER 17 GM (MIRALAX) PACK PO SCH (21:00)
[2020-04-30] MEDS ORDERED: VITAMIN D3 25 MCG (1,000 UNITS) TABLET PO SCH (21:00)
[2020-04-30] MEDS: CALCIUM CARBONATE 600 MG (CALCARB) TAB PO SCH (21:53)
[2020-04-30] MEDS: PROPRANOLOL 20 MG (INDERAL) TABLET PO SCH (21:54)
[2020-04-30] MEDS: SENNA W/DOCUSATE (SENOKOT S) TABLET PO SCH (21:55)
[2020-04-30] MEDS: PRIMIDONE 50 MG TAB (MYSOLINE) PO SCH (21:59)
[2020-05-01 00:12] VITALS: BP 150/79
[2020-05-01 04:00] VITALS: BP 165/85
[2020-05-01 05:23] LABS: BASOPHILS # (AUTO) 0.1 10^3/uL (0.0-0.1); BASOPHILS % (AUTO) 1 % (0-10); EOSINOPHILS # (AUTO) 0.1 10^3/uL (0.0-0.3); EOSINOPHILS % (AUTO) 2 % (0-10); HEMATOCRIT 33 % (35-52); HEMOGLOBIN 11.4 G/DL (11.5-16.0); LYMPHOCYTES # (AUTO) 1.2 X 10^3 (1.0-4.0); LYMPHOCYTES % (AUTO) 34 % (12-44); MEAN CORPUSCULAR HEMOGLOBIN 28 PG (25-34); MEAN CORPUSCULAR HGB CONC 35 G/DL (32-36); MEAN CORPUSCULAR VOLUME 81 FL (80-99); MEAN PLATELET VOLUME 8.2 FL (7.4-10.4); MONOCYTES # (AUTO) 0.5 X 10^3 (0.0-1.0); MONOCYTES % (AUTO) 16 % (0-12); NEUTROPHILS # (AUTO) 1.7 X 10^3 (1.8-7.8); NEUTROPHILS % (AUTO) 47 % (42-75); PLATELET COUNT 408 10^3/uL (130-400); WHITE BLOOD COUNT 3.5 10^3/uL (4.3-11.0)
[2020-05-01 05:35] LABS: ALBUMIN 3.6 GM/DL (3.2-4.5); CHLORIDE 97 MMOL/L (98-107); SODIUM 127 MMOL/L (135-145)
[2020-05-01 05:36] LABS: CALCIUM 8.9 MG/DL (8.5-10.1)
[2020-05-01 05:37] LABS: GLUCOSE 84 MG/DL (70-105)
[2020-05-01 05:39] LABS: BILIRUBIN,TOTAL 0.3 MG/DL (0.1-1.0); CARBON DIOXIDE 19 MMOL/L (21-32)
[2020-05-01 05:41] LABS: ALKALINE PHOSPHATASE 60 U/L (40-136); CREATININE SERUM 0.58 MG/DL (0.60-1.30); GFR ESTIMATED > 60
[2020-05-01 05:42] LABS: BUN/CREATININE RATIO 16
[2020-05-01 05:44] LABS: ALANINE AMINOTRANSFERASE 19 U/L (0-55)
[2020-05-01] MEDS: NS IV 1000 ML 1,000 ML IV SCH ×2 (05:46→15:16)
[2020-05-01 07:57] VITALS: BP 145/80
[2020-05-01] MEDS ORDERED: CHOL100045 PO (09:10)
[2020-05-01] MEDS ORDERED: POLY17PO6 PO (09:10)
[2020-05-01] MEDS ORDERED: LORA-404 PO (09:10)
[2020-05-01] MEDS ORDERED: FERR-84 PO (09:10)
[2020-05-01] MEDS ORDERED: CARB1TAB19 PO (09:10)
[2020-05-01] MEDS ORDERED: DOCU100C37 PO (09:10)
--- NOTE | 2020-05-01 09:11 | NUR ---
SPOKE WITH THE PT AND WENT THRU THE EXT MED HISTORY TO COMPLETE THE MED REC PT WAS UNABLE TO TELL ME ALL ABOUT HER MEDICATIONS (SHE HAD PRIMIDONE AND CARB/LEVO IN HER ROOM) AND WANTED ME TO CALL HER SISTER CYNDI. I CALLED CYNDI AND WE WENT THRU THE PTS MEDICATIONS. OTC MEDS: IRON 325MG 2 TABS DAILY MIRALAX DAILY CALCIUM 1 TAB DAILY VIT D 1 DAILY DOCUSATE 1 DAILY
[2020-05-01] MEDS: polyethylene glycoL POWDER 17 GM (MIRALAX) PACK PO SCH ×2 (09:25→20:42)
[2020-05-01] MEDS: SENNA W/DOCUSATE (SENOKOT S) TABLET PO SCH ×2 (09:41→20:42)
[2020-05-01] MEDS: CALCIUM CARBONATE 600 MG (CALCARB) TAB PO SCH ×2 (09:41→20:42)
[2020-05-01] MEDS: DOCUSATE SODIUM 100 MG (COLACE) CAP PO SCH (09:41)
[2020-05-01] MEDS: amLODIPine 5 MG (NORVASC) TAB PO SCH (09:45)
[2020-05-01] MEDS: PROPRANOLOL 20 MG (INDERAL) TABLET PO SCH ×2 (09:45→20:42)
[2020-05-01] MEDS: FLUoxetine HCL 20 MG (PROzac) CAP PO SCH (09:45)
[2020-05-01] MEDS: SINEMET 25/100 (CARBIDOPA/LEVODOPA) TAB PO SCH ×3 (09:46→20:42)
[2020-05-01] MEDS: VITAMIN D3 25 MCG (1,000 UNITS) TABLET PO SCH ×2 (09:54→20:42)
[2020-05-01 11:38] VITALS: BP 124/68
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
[2020-05-01] MEDS ORDERED: ENOXAPARIN 40 MG/0.4 ML (LOVENOX) SYR SC SCH (13:45)
[2020-05-01 16:00] VITALS: BP 144/77
[2020-05-01] MEDS: ENOXAPARIN 30 MG/0.3 ML (LOVENOX) SYR SC SCH (16:08)
--- NOTE | 2020-05-01 18:18 | NUR ---
DR. MARTINEZ NOTIFIED THAT UNABLE TO COLLECT URINE SPEC FOR LABS PT INCONTINENT. REPLIED WITH OKAY AND NO NEW ORDERS.
[2020-05-01 20:00] VITALS: BP 147/74
[2020-05-01] MEDS: PRIMIDONE 50 MG TAB (MYSOLINE) PO SCH (20:42)
[2020-05-01] MEDS ORDERED: LORazepam 0.5 MG (ATIVAN) TABLET PO SCH (21:00)
[2020-05-01] MEDS ORDERED: SINEMET 25/100 (CARBIDOPA/LEVODOPA) TAB PO SCH (21:00)
[2020-05-02 00:05] VITALS: BP 140/79
[2020-05-02] MEDS: NS IV 1000 ML 1,000 ML IV SCH ×3 (01:20→22:15)
[2020-05-02 04:00] VITALS: BP 173/85
[2020-05-02 05:51] LABS: HEMOGLOBIN 11.4 G/DL (11.5-16.0); MEAN PLATELET VOLUME 8.1 FL (7.4-10.4); RED CELL DISTRIBUTION WIDTH 14.2 % (10.0-14.5); WHITE BLOOD COUNT 4.1 10^3/uL (4.3-11.0)
[2020-05-02 06:14] LABS: ALBUMIN 3.7 GM/DL (3.2-4.5); CHLORIDE 95 MMOL/L (98-107); POTASSIUM 4.1 MMOL/L (3.6-5.0)
[2020-05-02 06:15] LABS: CALCIUM 8.9 MG/DL (8.5-10.1)
[2020-05-02 06:16] LABS: GLUCOSE 86 MG/DL (70-105); TOTAL PROTEIN 7.1 GM/DL (6.4-8.2)
[2020-05-02 06:17] LABS: CARBON DIOXIDE 17 MMOL/L (21-32)
[2020-05-02 06:18] LABS: BILIRUBIN,TOTAL 0.3 MG/DL (0.1-1.0)
[2020-05-02 06:20] LABS: ALKALINE PHOSPHATASE 58 U/L (40-136); CREATININE SERUM 0.53 MG/DL (0.60-1.30); GFR ESTIMATED > 60
[2020-05-02 06:21] LABS: BUN/CREATININE RATIO 13
[2020-05-02 06:23] LABS: ALANINE AMINOTRANSFERASE 14 U/L (0-55)
[2020-05-02 06:24] LABS: SODIUM 122 MMOL/L (135-145)
--- NOTE | 2020-05-02 06:42 | NUR ---
DR MARTINEZ NOTIFIED OF SODIUM 122. DR ORDERED TO STRAIGHT CATH PT TO OBTAIN URINE SAMPLE FOR URINE SODIUM, OSMOLALITY, AND CHLORIDE
--- NOTE | 2020-05-02 07:01 | NUR ---
straight cath done at this time, pt tolerated well.
[2020-05-02 08:00] VITALS: BP 157/82
[2020-05-02] MEDS: SINEMET 25/100 (CARBIDOPA/LEVODOPA) TAB PO SCH ×3 (08:12→20:10)
[2020-05-02] MEDS: CALCIUM CARBONATE 600 MG (CALCARB) TAB PO SCH ×2 (08:13→20:09)
[2020-05-02] MEDS: FLUoxetine HCL 20 MG (PROzac) CAP PO SCH (08:13)
[2020-05-02] MEDS: PROPRANOLOL 20 MG (INDERAL) TABLET PO SCH ×2 (08:13→20:12)
[2020-05-02] MEDS: VITAMIN D3 25 MCG (1,000 UNITS) TABLET PO SCH ×2 (08:13→20:12)
[2020-05-02] MEDS: amLODIPine 5 MG (NORVASC) TAB PO SCH (08:13)
[2020-05-02] MEDS: SENNA W/DOCUSATE (SENOKOT S) TABLET PO SCH ×2 (08:14→20:08)
[2020-05-02] MEDS: DOCUSATE SODIUM 100 MG (COLACE) CAP PO SCH (08:14)
[2020-05-02] MEDS ORDERED: DOCUSATE SODIUM 100 MG (COLACE) CAP PO SCH (09:00)
--- NOTE | 2020-05-02 11:34 | Progress Note ---
Subjective Subjective/Events-last exam Afebrile, no acute events. Very slow to answer questions this morning, but does respond. Objective Exam Last Set of Vital Signs Vital Signs Date Time Temp Pulse Resp B/P (MAP) Pulse Ox O2 Delivery O2 Flow Rate FiO2 05/02/20 08:00 36.0 72 20 157/82 (107) 97 Room Air Capillary Refill : Less Than 3 SecondsLess Than 3 Seconds I&O Intake and Output 05/02/20 00:00 Intake Total 440 ml Balance 440 ml Intake Oral 440 ml # Voids 6 General: Other (arousable but appears tired and is slow to speak) Lungs: Clear to Auscultation, Normal Air Movement Heart: Regular Rate, No Murmurs Extremities: No Edema Results/Procedures Lab Laboratory Tests 05/02/20 05:35: White Blood Count 4.1L, Red Blood Count 4.05L, Hemoglobin 11.4L, Hematocrit 33L, Mean Corpuscular Volume 82, Mean Corpuscular Hemoglobin 28, Mean Corpuscular Hemoglobin Concent 35, Red Cell Distribution Width 14.2, Platelet Count 407H, Mean Platelet Volume 8.1, Sodium Level 122*L, Potassium Level 4.1, Chloride L evel 95L, Carbon Dioxide Level 17L, Anion Gap 10, Blood Urea Nitrogen 7, Creatinine 0.53L, Estimat Glomerular Filtration Rate > 60, BUN/Creatinine Ratio 13, Glucose Level 86, Calcium Level 8.9, Corrected Calcium 9.1, Total Bilirubin 0.3, Aspartate Amino Transf (AST/SGOT) 51H, Alanine Aminotransferase (ALT/SGPT) 14, Alkaline Phosphatase 58, Total Protein 7.1, Albumin 3.7, Thyroid Stimulating Hormone (TSH) 0.94 05/02/20 06:30: Radiology CXR 04/30 no acute abnormalities Assessment/Plan Assessment/Plan (1) Hyponatremia Status: Acute Assessment & Plan: Na 121 on admit, up to 127 today. Possibly due to excess water intake, but unclear. Will check labs, but may be less helpful as she has already had some fluid replacement. 05/02 urine labs not done yesterday due to incontinence, but Na back down to 122 today, straight cath done to get urine sample. Continue 800 cc fluid restriction and NS @ 100 mls/hr. TSH normal. (2) Tremor Status: Chronic Assessment & Plan: Per chart essential/familial tremor, but she has symptoms consistent with PD with flat affect, slow speech and rolling tremor. Has been referred outpatient to Neurology. Continue home medications. 05/02 discussed with sister this morning, Neuro visit was done and PD diagnosed and started on Sinemet, see PD diagnosis. (3) Frequent falls Status: Acute Assessment & Plan: Outpatient has been to PT and referred to Neurology. PT while inpatient, may need assistance for home or even IRF before home. (4) Thrombocytosis Status: Acute Assessment & Plan: Stable (5) Elevated AST (SGOT) Status: Acute Assessment & Plan: Trending down today, follow. Stable (6) Parkinson disease Status: Chronic Assessment & Plan: Per sister, pt was started on carvidopa-levodopa at Neurology on 04/10, they noticed no improvement, and called after about 2 weeks, and they told her to remain on same dose. She also reportedly had MRI with contrast in [place] ordered by Neuro, were to follow up May 10. (7) DVT prophylaxis Status: Acute Assessment & Plan: Enoxaparin Clinical Quality Measures DVT/VTE Risk/Contraindication: Risk Factor Score Per Nursin RFS Level Per Nursing on Admit: 4+=Very High ANG MARTINEZ MD May 02, 2020 11:34
[2020-05-02 12:00] VITALS: BP 147/80
[2020-05-02] MEDS: ENOXAPARIN 30 MG/0.3 ML (LOVENOX) SYR SC SCH (13:40)
--- NOTE | 2020-05-02 13:48 | Physical Therapy Evaluation ---
PT Evaluation-General Medical Diagnosis Admission Date Apr 30, 2020 at 13:14 Medical Diagnosis: Essential Tremors Onset Date: Apr 30, 2020 Therapy Diagnosis Therapy Diagnosis: Weakness, Debility Height/Weight Height (Feet): 5 Height (Inches): 2.00 Weight (Pounds): 98 Weight (Ounces): 8.0 Precautions Precautions/Isolations: Fall Prevention, Standard Precautions Weight Bear Status Right Lower Extremity: Right Weight Bearing/Tolerated Left Lower Extremity: Left Weight Bearing/Tolerated Referral Physician: Nikolay Reason for Referral: Evaluation/Treatment Medical History Pertinent Medical History: Back Injury, CABG, Parkinson's (Dx 04/10/2020) Current History ER via family secondary to falls due to new diagnosis of Parkinson's Reviewed History: Yes Social History Current Living Status: Other Family Pt independent and living at home prior to February,. Since then, sister has moved in and is assisting with care. Prior Prior Level of Function SCALE: Activities may be completed with or without assistive devices. 2-Egwqkqsjps-wwxeuov completes the activity by him/herself with no assistance from a helper. 5-Set-up or Clean-up Assistance-helper sets up or cleans up; patient completes activity. [place] assists only prior to or following the activity. 4-Supervision or Touching Assistance-helper provides verbal cues and/or touching/steadying and/or contact guard assistance as patient completes activity. Assistance may be provided throughout the activity or intermittently. 3-Partial/Moderate Assistance-helper does LESS THAN HALF the effort. [place] lifts, holds or supports trunk or limbs, but provides less than half the effort. 2-Substantial/Maximal Assistance-helper does MORE THAN HALF the effort. [place] lifts or holds trunk or limbs and provides more than half the effort. 4-Mnpkzkhuw-lzlief does ALL the effort. Patient does none of the effort to complete the activity. Or, the assistance of 2 or more helpers is required for the patient to complete the activity. If activity was not attempted, code reason: 7-Patient Refused. 9-Not Applicable-not attempted and the patient did not perform the activity before the current illness, exacerbation or injury. 10-Not Attempted due to Environmental Limitations-(lack of equipment, weather restraints, etc.). 88-Not Attempted due to Medical Conditions or Safety Concerns. Bed Mobility: 4 Transfers (B,C,W/C): 4 Gait: 4 Indoor Mobility (Ambulation): Needed Some Help PT Evaluation-Current Subjective Pt presents supine in bed with sister present in room. Pt agreeable to PT at t his time. Noted nystagmus with pt in supine position upon arrival to room, and sister reports that this is new and just noticed by her this morning. Pain Comment: Pt responds "yes" when asked about pain, but doesnt vocalize location/numbe Objective Patient Orientation: Unable to Assess Attachments: IV ROM/Strength ROM Lower Extremities Rigid in bilat LE. Able to break into DF, but immediately returned to Pf position in Bilat ankles. Strength Lower Extremities unable to assess due to rigidity Integumentary/Posture Integumentary refer to nursing notes Neuromuscular (Tone, Coordination, Reflexes) Pt with high tone/rigidity in bilat LE into PF, knee and hip extension. Able to break hip extension with bed in chair position. Noticeable nystagmus while pt is in supine and seated positions, no decreased based on position. Sensory Vision: Wears Glasses Hearing: Functional Hand Dominance: Right Transfers Roll Left to Right (QC): 1 Sit to Lying (QC): 1 Lying to Sitting/Side of Bed(Q: 1 Sit to Stand (QC): 88 Chair/Kpx-ew-Frnmp Xfer(QC): 88 Toilet Transfer (QC): 88 Car Transfer (QC): 88 Pt requiring dependent assist x2 to sit EOB x 1 min. Pt maintained extension posture throughout sitting and was returned to supine. Gait Does the Patient Walk?: No and Walking Goal IS indicated Mode of Locomotion: Both Anticipated Mode of Locomotion: Both Wheelchair Training Does the Pt Use a Wheelchair?: No Balance Sitting Static: Poor Sitting Dynamic: Poor Assessment/Needs Pt is a 64 yo female with decreased mobility, strength, balance, and increased fall risk. Pt would benefit from skilled PT to address above mentioned limitations and ensure safety upon discharge from hospital. When medically stable, pt would benefit from continued therapy alf facility vs.skil led ARU placement to ensure safety upon return home. Rehab Potential: Guarded PT Short Term Goals Short Term Goals Time Frame: May 13, 2020 Roll Left & Right: 2 Lying to sitting on side of be: 2 Sit to stand: 2 Walk 10 feet: 2 PT Leasing Specialist Goals Fdc Goals PT Leasing Specialist Goals Time Frame: May 20, 2020 Sit to Lying (QC): 4 Lying-Sitting on Side/Bed(QC): 4 Sit to Stand (QC): 4 Chair/Qdc-zp-Zjtir Xfer(QC): 4 Toilet Transfer (QC): 4 Car Transfer (QC): 4 Does the Patient Walk: No and Walking Goal IS indicated Walk 10 feet (QC): 3 Does the Pt use WC or Scooter?: No PT Plan Problem List Problem List: Activity Tolerance, Functional Strength, Safety, Balance, Gait, Transfer, Bed Mobility, ROM Treatment/Plan Treatment Plan: Continue Plan of Care Treatment Plan: Bed Mobility, Education, Functional Activity Vinicius, Functional Strength, Gait, Safety, Therapeutic Exercise, Transfers Treatment Duration: May 20, 2020 Frequency: 6 times per week Estimated Hrs Per Day: .25 hour per day (.25 up to .5 ) Patient and/or Family Agrees t: Yes Safety Risks/Education Patient Education: Correct Positioning Teaching Recipient: Patient, Family Teaching Methods: Discussion Response to Teaching: Reinforcement Needed Discharge Recommendations Therapy Discharge Recommendati: Other, See Comments (halfway facility vs ARU ) Time/GCodes Time In: 1315 Time Out: 1345 Total Billed Treatment Time: 30 Total Billed Treatment 1 visit EVHighC 15 min FA 15 min CHANDLER RODRIGUEZ PT May 02, 2020 13:48
[2020-05-02 15:57] VITALS: BP 138/82
[2020-05-02 20:10] VITALS: BP_SYST 117; BP_SYST 157; BP_DIAS 67; BP_DIAS 82
[2020-05-02] MEDS: PRIMIDONE 50 MG TAB (MYSOLINE) PO SCH (20:11)
[2020-05-02] MEDS: polyethylene glycoL POWDER 17 GM (MIRALAX) PACK PO SCH (20:12)
[2020-05-03 00:35] VITALS: BP 145/76
[2020-05-03 04:55] VITALS: BP 165/86
[2020-05-03 05:23] LABS: HEMOGLOBIN 11.2 G/DL (11.5-16.0); WHITE BLOOD COUNT 3.3 10^3/uL (4.3-11.0)
[2020-05-03 05:43] LABS: ALBUMIN 3.3 GM/DL (3.2-4.5)
[2020-05-03 05:44] LABS: CHLORIDE 99 MMOL/L (98-107); POTASSIUM 3.7 MMOL/L (3.6-5.0); SODIUM 127 MMOL/L (135-145)
[2020-05-03 05:45] LABS: CALCIUM 8.7 MG/DL (8.5-10.1)
[2020-05-03 05:46] LABS: GLUCOSE 88 MG/DL (70-105); TOTAL PROTEIN 6.3 GM/DL (6.4-8.2)
[2020-05-03 05:47] LABS: CARBON DIOXIDE 20 MMOL/L (21-32)
[2020-05-03 05:48] LABS: BILIRUBIN,TOTAL 0.3 MG/DL (0.1-1.0)
[2020-05-03 05:49] LABS: ALKALINE PHOSPHATASE 52 U/L (40-136)
[2020-05-03 05:50] LABS: CREATININE SERUM 0.55 MG/DL (0.60-1.30); GFR ESTIMATED > 60
[2020-05-03 05:51] LABS: BUN/CREATININE RATIO 16
[2020-05-03 05:52] LABS: MAGNESIUM 1.8 MG/DL (1.6-2.4)
[2020-05-03 05:53] LABS: ALANINE AMINOTRANSFERASE 11 U/L (0-55)
[2020-05-03] MEDS: NS IV 1000 ML 1,000 ML IV SCH (07:49)
[2020-05-03] MEDS: amLODIPine 5 MG (NORVASC) TAB PO SCH (07:49)
[2020-05-03] MEDS: CALCIUM CARBONATE 600 MG (CALCARB) TAB PO SCH (07:49)
[2020-05-03] MEDS: DOCUSATE SODIUM 100 MG (COLACE) CAP PO SCH (07:49)
[2020-05-03] MEDS: VITAMIN D3 25 MCG (1,000 UNITS) TABLET PO SCH (07:49)
[2020-05-03] MEDS: SENNA W/DOCUSATE (SENOKOT S) TABLET PO SCH (07:49)
[2020-05-03] MEDS: PROPRANOLOL 20 MG (INDERAL) TABLET PO SCH (07:49)
[2020-05-03] MEDS: FLUoxetine HCL 20 MG (PROzac) CAP PO SCH (07:50)
[2020-05-03] MEDS: SINEMET 25/100 (CARBIDOPA/LEVODOPA) TAB PO SCH (07:50)
[2020-05-03 08:00] VITALS: BP 179/84
--- NOTE | 2020-05-03 08:54 | Physical Therapy Daily Note ---
PT Daily Note-Current Subjective Patient in bed pre tx, agrees to PT, no complaints of pain. Appearance Patient in recliner post tx with nurse call,phone, tray, legs elevated, all needs met, nurse informed that patient is in chair, she has a brief on. Mental Status Patient Orientation: Person, Confused Attachments: IV Transfers SCALE: Activities may be completed with or without assistive devices. 1-Rjbzjldxnk-dtxduhh completes the activity by him/herself with no assistance from a helper. 5-Set-up or Clean-up Assistance-helper sets up or cleans up; patient completes activity. [place] assists only prior to or following the activity. 4-Supervision or Touching Assistance-helper provides verbal cues and/or touching/steadying and/or contact guard assistance as patient completes activity. Assistance may be provided throughout the activity or intermittently. 3-Partial/Moderate Assistance-helper does LESS THAN HALF the effort. [place] lifts, holds or supports trunk or limbs, but provides less than half the effort. 2-Substantial/Maximal Assistance-helper does MORE THAN HALF the effort. [place] lifts or holds trunk or limbs and provides more than half the effort. 6-Ohyorsjfa-utgzqj does ALL the effort. Patient does none of the effort to complete the activity. Or, the assistance of 2 or more helpers is required for the patient to complete the activity. If activity was not attempted, code reason: 7-Patient Refused. 9-Not Applicable-not attempted and the patient did not perform the activity b efore the current illness, exacerbation or injury. 10-Not Attempted due to Environmental Limitations-(lack of equipment, weather restraints, etc.). 88-Not Attempted due to Medical Conditions or Safety Concerns. Roll Left & Right (QC): 1 Lying to Sitting/Side of Bed(Q: 1 Sit to Stand (QC): 2 Chair/Uci-lb-Qmpne Xfer(QC): 2 Patient has rigid extended BLE, she extends while sitting on the edge of the bed, careful guarding is required or patient would have a tendency to side off the edge of the bed. Patient stands with max assist, she is able to bear weight on her legs due to BLE rigidity. Stand pivot transfer to recliner. Weight Bearing Right Lower Extremity: Right Weight Bearing/Tolerated Left Lower Extremity: Left Weight Bearing/Tolerated Exercises Seated Therapy Exercises: Long arc quads Seated Reps: 10 (AAROM) attempted ankle pumps but she cannot do them, cannot perform PROM to even neutral dorsiflexion Treatments bed mobility and transfers, AAROM Assessment Current Status: Poor Progress fall risk, rigid extended legs PT Short Term Goals Short Term Goals Time Frame: May 13, 2020 Roll Left & Right: 2 Lying to sitting on side of be: 2 Sit to stand: 2 Walk 10 feet: 2 PT Half-Way Goals Raw Stock Machine Feeder Goals PT Half-Way Goals Time Frame: May 20, 2020 Sit to Lying (QC): 4 Lying-Sitting on Side/Bed(QC): 4 Sit to Stand (QC): 4 Chair/Jau-eo-Uwgdc Xfer(QC): 4 Toilet Transfer (QC): 4 Car Transfer (QC): 4 Does the Patient Walk: No and Walking Goal IS indicated Walk 10 feet (QC): 3 Does the Pt use WC or Scooter?: No PT Plan Problem List Problem List: Activity Tolerance, Functional Strength, Safety, Balance, Gait, Transfer, Bed Mobility, ROM Treatment/Plan Treatment Plan: Continue Plan of Care Treatment Plan: Bed Mobility, Education, Functional Activity Vinicius, Functional Strength, Gait, Safety, Therapeutic Exercise, Transfers Treatment Duration: May 20, 2020 Frequency: 6 times per week Estimated Hrs Per Day: .25 hour per day (.25 up to .5 ) Patient and/or Family Agrees t: Yes Safety Risks/Education Patient Education: Transfer Techniques, Correct Positioning, Safety Issues Teaching Recipient: Patient Teaching Methods: Demonstration, Discussion Response to Teaching: Reinforcement Needed Time/GCodes Time In: 08 Time Out: 0832 Total Billed Treatment 1 visit FA MARIA G FISHER PT May 03, 2020 08:54
--- NOTE | 2020-05-03 09:54 | NUR ---
CM/SS: Visited with pt as to plan for discharge Plan: Pt to go to Inpatient Rehabilitation Services Summary: Visit made with Inpatient Rehabilitation Butadiene Compressor Operator, February to discuss discharge plan. Pt is open at this time to go to Inpatient Rehab. Information given to pt as to what rehab will look like and what they will work on in order to get her stronger and improve on her physical ability. Pt seems to want to be able to get stronger in order to return to her home. She reports that her daughter lives with her. Pt is aware that doctor will need to determine that she can go to Rehab today. Rehab is open to be able to take her today.
--- NOTE | 2020-05-03 10:20 | NUR ---
IRF Evaluation Order received to evaluate patient for the ARU. Chart review complete and findings discussed with Dr. Mckeon - patient accepted. In partnership with SW, met with patient to discuss details related to rehabilitation program. Patient states she is agreeable to admission. Patient did request this chief underwriter to notify her sister, Nazia. A message was left on Nazia's phone, requesting a call back. Dr. Link notified of acceptance. Patient to admit to ARU, today. Thank you for this referral.
[2020-05-03] MEDS ORDERED: AMLO5TAB9 PO (10:31)
[2020-05-03] MEDS ORDERED: PROP20TA5 PO (10:31)
--- NOTE | 2020-05-03 10:36 | Discharge Summary ---
Discharge Summary Hospital Course Problems/Diagnosis: (1) Hyponatremia Status: Acute Assessment & Plan: Na 121 on admit, up to 127 today. Possibly due to excess water intake, but unclear. Will check labs, but may be less helpful as she has already had some fluid replacement. 05/02 urine labs not done yesterday due to incontinence, but Na back down to 122 today, straight cath done to get urine sample. Continue 800 cc fluid restriction and NS @ 100 mls/hr. TSH normal. 05/03 Ma up to 127, urine Na and osmolality consistent with SIADH or adrenal insufficiency (hypothyroidism ruled out), discharging to Inpatient Rehab today, consider CT chest for possible lung lesion leading to SIADH. Had brain MRI within last few weeks, unlikely to have new findings at this time. (2) Tremor Status: Chronic Assessment & Plan: Per chart essential/familial tremor, but she has symptoms consistent with PD with flat affect, slow speech and rolling tremor. Has been referred outpatient to Neurology. Continue home medications. 05/02 discussed with sister this morning, Neuro visit was done and PD diagnosed and started on Sinemet, see PD diagnosis. (3) Frequent falls Status: Acute Assessment & Plan: Outpatient has been to PT and referred to Neurology. PT while inpatient, may need assistance for home or even IRF before home. Discharged to IRF (4) Thrombocytosis Status: Resolved Resolution Date/Time: 05/03/20 @ 10:33 Assessment & Plan: Stable (5) Elevated AST (SGOT) Status: Acute Assessment & Plan: Trending down today, follow. Stable (6) Parkinson disease Status: Chronic Assessment & Plan: Per sister, pt was started on carvidopa-levodopa at Neurology on 04/10, they noticed no improvement, and called after about 2 weeks, and they told her to remain on same dose. She also reportedly had MRI with contrast in [place] ordered by Neuro, were to follow up May 10. 05/03 note of new nystagmus, which is not expected with PD, however she has had MRI recently, so brain stem lesion seems unlikely as well, follow up with Neuro. Hospital Course Date of Admission: Apr 30, 2020 at 13:14 Admission Diagnosis : Family Physician/Provider: Azucena Vasques Aprn Date of Discharge: 05/03/20 Discharge Diagnosis: See problem list Hospital Course: See problem list Labs and Pending Lab Test: Laboratory Tests 05/03/20 05:14: White Blood Count 3.3L, Red Blood Count 3.92L, Hemoglobin 11.2L, Hematocrit 32L, Mean Corpuscular Volume 82, Mean Corpuscular Hemoglobin 29, Mean Corpuscular Hemoglobin Concent 35, Red Cell Distribution Width 14.0, Platelet Count 360, Mean Platelet Volume 8.0, Sodium Level 127L, Potassium Level 3.7, Chloride Level 99, Carbon Dioxide Level 20L, Anion Gap 8, Blood Urea Nitrogen 9, Creatinine 0.55L, Estimat Glomerular Filtration Rate > 60, BUN/Creatinine Ratio 16, Glucose Level 88, Calcium Level 8.7, Corrected Calcium 9.3, Magnesium Level 1.8, Total Bilirubin 0.3, Aspartate Amino Transf (AST/SGOT) 44H, Alanine Aminotransferase (ALT/SGPT) 11, Alkaline Phosphatase 52, Total Protein 6.3L, Albumin 3.3 Home Meds Active Reported Docusate Sodium 100 Mg Capsule 100 Mg PO DAILY Iron (Ferrous Sulfate) 325 Mg Tablet 650 Mg PO DAILY TAKES 2 (325MG) TABS DAILY Miralax (Polyethylene Glycol 3350) 17 Gm Powd.pack 17 Gm PO DAILY Ativan (Lorazepam) 0.5 Mg Tablet 0.5 Mg PO HS Carbidopa-Levodopa 25-100 Tab (Carbidopa/Levodopa) 1 Each Tablet 1 Ea PO TID Vitamin D3 (Cholecalciferol (Vitamin D3)) 25 Mcg Tablet 25 Mcg PO DAILY Mysoline (Primidone) 50 Mg Tablet 100 Mg PO HS TAKES 2 (50MG) TABS AT BEDTIME Fluoxetine HCl 20 Mg Capsule 20 Mg PO DAILY Calcium (Calcium Carbonate) 600 Mg Tablet 600 Mg PO DAILY Assessment/Pt DC Instructions Discharged to inpatient rehab Discharge Diet: Other Diet (800 ml fluid restriction, liberalize salt) Activity as Tolerated: Yes Orders-Post D/C & Referrals Pneu Vac Indicated: Yes Discharge Physical Examination Allergies: Coded Allergies: Penicillins (Verified Allergy, Unknown, 06/02/18) alendronate sodium (Verified Allergy, Unknown, 06/02/18) bacitracin (Verified Allergy, Unknown, 06/02/18) lactose (Verified Allergy, Unknown, 06/02/18) neomycin (Verified Allergy, Unknown, 06/02/18) polymyxin B (Verified Allergy, Unknown, 06/02/18) raloxifene (Verified Allergy, Unknown, leg swelling, 06/02/18) General Appearance: No Apparent Distress HEENT: Other (nystagmus in both eyes, rotary) Respiratory: Lungs Clear, Normal Breath Sounds Cardiovascular: Regular Rate, Rhythm, No Murmur Gastrointestinal: Normal Bowel Sounds, Non Tender, Soft Extremity: No Pedal Edema Skin: Normal Color, Warm/Dry Neurologic/Psychiatric: Alert, Other (speech slow but answers questions appropriately) Copy Copies To 1: Azucena Vasques APRN Clinical Quality Measures DVT/VTE Risk/Contraindication: Risk Factor Score Per Nursin RFS Level Per Nursing on Admit: 4+=Very High ANG MARTINEZ MD May 03, 2020 10:36
--- NOTE | 2020-05-03 10:46 | Physician Query Clarification ---
"Physician Query-General Query to Physician: The medical record reflects the following clinical scenario: History/Risk factors: New DX of Parkinsons Clinical Findings: Frequent falls, Tremor and flat Affect Treatment: Neuro follow up, PT, and carbidopa-levodopa Question: What condition best reflects the above clinical scenario? Please document response in the Progress notes or Discharge Summary. 1. Falls/Tremors Due to Parkinsons and Hyponatremia 2. Hyponatremia (as currently documented) 3. Other , with explanation of the clinical findings 4. Clinically undetermined, no explanation for the clinical findings Please remember a lack of response to the above will prompt a phone page by CDI/coding staff In responding to this query, please exercise your independent professional judgment. The purpose of this communication is to more accurately reflect the complexity of your patients condition. The fact that a question is asked does not imply that any particular answer is desired or expected. Thank you for timely response to this clarification. Radha Martínez, MSN, RN RN Specialist-Clinical Doc Improvement CD -Health Info Mgmt Operations [address] [facility] t: [phone] | f: [phone] If you are unable to reach me at my extension, I may be working from home. Please contact me at [phone] PHYSICIAN RESPONSE: Based on the clinical findings in the record, please respond to the query above on this document as an addendum. Physician Response: Physician Response 1 If you have questions please contact: Display Department Manager: Ext: Thank you for your time and cooperation. Clinical Continuous Improvement Specialist/Display Department Manager This is a permanent part of the medical record RADHA MARTÍNEZ May 03, 2020 10:46 ANG MARTINEZ MD May 03, 2020 15:32"
--- NOTE | 2020-05-03 11:03 | NUR ---
REPORT CALLED TO STEFANY--BABITA SAVAGE
== END 2020-05-03 11:04 | DRG 57 ==
LOC: EDUNIT# 12:03 → ER 12:04 → 4TH 13:14
PROVIDERS: ADMIT Internal Medicine; ATTEND Family Medicine
DX: G20 Parkinson's disease (principal); E87.1 Hypo-osmolality and hyponatremia; G25.0 Essential tremor; D47.3 Essential (hemorrhagic) thrombocythemia; I10 Essential (primary) hypertension; F41.9 Anxiety disorder, unspecified; F32.9 Major depressive disorder, single episode, unspecified; Z66 Do not resuscitate; R29.6 Repeated falls; M41.9 Scoliosis, unspecified; F10.21 Alcohol dependence, in remission; H55.00 Unspecified nystagmus; M54.9 Dorsalgia, unspecified; Z87.891 Personal history of nicotine dependence; Z98.1 Arthrodesis status; Z96.652 Presence of left artificial knee joint
CPT/HCPCS: 36415; 71045; 80053; 81000; 82436; 83735; 83935; 84300; 84443; 85025; 85027

== ENCOUNTER 2020-05-03 10:07 | Inpatient (IN) | payer MEDICARE ==
[~2020-05-03] VITALS: Ht 162.5 cm; Wt 48.8 kg
[~2020-05-03 10:07] MED LIST changes: +CARB1TAB19 PO; +CARB1TAB44 PO; +DOCU100C37 PO; +FERR-84 PO; +LORA-404 PO
[2020-05-03] MEDS ORDERED: LACTULOSE SYRUP 10GM/15ML (ENULOSE) 30ML UDC PO PRN (10:30)
[2020-05-03] MEDS ORDERED: ACETAMINOPHEN 500 MG TAB (TYLENOL) PO PRN ×2 (10:30→15:15)
[2020-05-03] MEDS ORDERED: MELATONIN 3 MG TABLET PO PRN ×2 (10:30→15:15)
[2020-05-03] MEDS ORDERED: BISACODYL 10 MG SUPP (DULCOLAX) PR PRN (10:30)
[2020-05-03] MEDS ORDERED: LOPERAMIDE 2 MG (IMODIUM) TABLET PO PRN ×2 (10:30→15:15)
[2020-05-03] MEDS ORDERED: CALCIUM CARBONATE 500 MG (TUMS) TAB.CHEW PO PRN (10:30)
[2020-05-03] MEDS ORDERED: guaiFENesin/CODEINE (ROBITUSSIN AC) 10ML UDC PO PRN (10:30)
[2020-05-03] MEDS ORDERED: DOCUSATE SODIUM 100 MG (COLACE) CAP PO PRN (10:30)
[2020-05-03] MEDS ORDERED: ALPRAZolam 0.25 MG (XANAX) TAB PO PRN (10:30)
[2020-05-03] MEDS ORDERED: FLEET ENEMA ADULT 1 EA BTL PR PRN (10:30)
[2020-05-03] MEDS ORDERED: diphenhydrAMINE 25 MG TAB (BENADRYL) PO PRN ×2 (10:30→15:15)
[2020-05-03] MEDS ORDERED: ONDANSETRON 4 MG (ZOFRAN) ORAL DISSOLVE TAB PO PRN ×2 (10:30→15:15)
[2020-05-03] MEDS ORDERED: AMLO5TAB9 PO (10:31)
[2020-05-03] MEDS ORDERED: PROP20TA5 PO (10:31)
[2020-05-03 11:00] VITALS: BP 157/89
--- NOTE | 2020-05-03 11:00 | NUR ---
Louise maty Do admitted to room 224-1, with an admitting diagnosis of myopathy, on 05/03/20 from 4th floor, accompanied by staff. LOUISE DO introduced to surroundings, call light, bed controls, phone, TV, temperature control, lights, meal times, smoking policy, visitor policy, side rail policy, bathrooms and showers. Patient Rights given to patient in the handbook. LOUISE DO verbalizes understanding that [facility] is not responsible for the loss or damage to any personal effects or valuables that are kept in the patients posession during their hospitalization. The Patient Care Plans were discussed with the patient. LOUISE DO verbalizes understanding of Interdisciplinary Patient Education. Patient and/or family were informed about the Rapid Response Team and its purpose. Patient received Patient Rights Booklet, which includes Privacy Act Statement and Data Collection Information Summary.
--- NOTE | 2020-05-03 13:15 | Physical Therapy Evaluation ---
PT Evaluation-General Medical Diagnosis Admission Date May 03, 2020 at 11:00 Medical Diagnosis: falls, parkinson's Onset Date: Apr 30, 2020 Therapy Diagnosis Therapy Diagnosis: imaired mobility, strength, endurance, balance, Height/Weight Height (Feet): 5 Height (Inches): 2.00 Weight (Pounds): 98 Weight (Ounces): 8.0 Referral Physician: Alejandra Mckeon DO Reason for Referral: Evaluation/Treatment Medical History Pertinent Medical History: Back Injury, CABG, Parkinson's Reviewed History: Yes Social History sister lives with her and assists with her care Prior Prior Level of Function SCALE: Activities may be completed with or without assistive devices. 2-Ibcqpajlzh-yparedf completes the activity by him/herself with no assistance from a helper. 5-Set-up or Clean-up Assistance-helper sets up or cleans up; patient completes activity. [place] assists only prior to or following the activity. 4-Supervision or Touching Assistance-helper provides verbal cues and/or touching/steadying and/or contact guard assistance as patient completes activity. Assistance may be provided throughout the activity or intermittently. 3-Partial/Moderate Assistance-helper does LESS THAN HALF the effort. [place] lifts, holds or supports trunk or limbs, but provides less than half the effort. 2-Substantial/Maximal Assistance-helper does MORE THAN HALF the effort. [place] lifts or holds trunk or limbs and provides more than half the effort. 1-Mtznpsxxt-dpahfd does ALL the effort. Patient does none of the effort to compl ete the activity. Or, the assistance of 2 or more helpers is required for the patient to complete the activity. If activity was not attempted, code reason: 7-Patient Refused. 9-Not Applicable-not attempted and the patient did not perform the activity before the current illness, exacerbation or injury. 10-Not Attempted due to Environmental Limitations-(lack of equipment, weather restraints, etc.). 88-Not Attempted due to Medical Conditions or Safety Concerns. Bed Mobility: 4 Transfers (B,C,W/C): 4 Gait: 4 Prior Devices Use: Walker PT Evaluation-Current Subjective Patient in recliner pre tx, agrees to PT, has no complaints of pain. Will be co-treating with OT after evaluation due to poor patient mobility, strength, endurance, abnormal muscle tone, the need to coordinate UE and LE during activity. Pt/Family Goals "to be able to move around better" Objective Patient Orientation: Person, Confused, Place Attachments: IV ROM/Strength ROM Lower Extremities limited generally due to BLE increased muscle tone, legs are very rigid Strength Lower Extremities NT Sensory Hearing: Functional Sensation Right Lower Extremit: Intact Sensation Left Lower Extremity: Intact Transfers Roll Left to Right (QC): 1 Sit to Lying (QC): 1 Lying to Sitting/Side of Bed(Q: 1 Sit to Stand (QC): 1 Chair/Fdu-me-Njcjo Xfer(QC): 1 Toilet Transfer (QC): 1 Car Transfer (QC): 1 Gait Walk 10 feet (QC): 88 Walk 50 ft with 2 Turns(QC): 88 Walk 150 ft (QC): 88 Walking 10ft/uneven surface-QC: 88 Wheelchair Training Wheel 50 ft with 2 turns (QC): 1 Wheel 150 ft (QC): 1 Stairs 1 Step (curb) (QC): 88 4 Steps (QC): 88 12 Steps (QC): 88 Balance Sitting Static: Poor Sitting Dynamic: Poor Standing Static: Poor Standing Dynamic: Poor Picking up an Object (QC): 88 Treatment Patient transferred from [facility] to , taken to rehab and into her room, partially dressed, had accident, cleaned and put on new brief, completed dressing, went to therapy gym, stood x3 in parallel bars for a couple of minutes each time, back to room, transfer to bed and layed down. All mobility was dependent, she was able to bear weight through her legs while standing due to severe increased extensor muscle tone, she stands on her toes, needs ankle support. PT performed bed mobility and transfer training, standing, standing for dressing and cleaning, OT performed dressing and cleaning and assist with transfers and standing. Assessment/Needs Patient has impaired mobility, strength, endurance, balance. Patient has increased extensor muscle tone in both legs, she can stand but stands on her toes. Fall risk. Patient in bed post tx with nurse call, phone, tray, all needs met, sister in the room. Rehab Potential: Guarded PT Short Term Goals Short Term Goals Time Frame: May 10, 2020 Roll Left & Right: 2 Sit to lyin Lying to sitting on side of be: 2 Sit to stand: 2 Chair/vem-dh-ohonb transfer: 2 PT Senior Administrative Services Officer Goals Mcc Goals PT Senior Administrative Services Officer Goals Time Frame: May 24, 2020 Roll Left & Right (QC): 3 Sit to Lying (QC): 3 Lying-Sitting on Side/Bed(QC): 3 Sit to Stand (QC): 3 Chair/Oiv-zq-Ihlsi Xfer(QC): 3 Toilet Transfer (QC): 3 Car Transfer (QC): 3 Does the Patient Walk: No and Walking Goal IS indicated Walk 10 feet (QC): 3 Walk 50ft with 2 Turns (QC): 88 Walk 150 ft (QC): 88 Walking 10ft on Uneven Surface: 88 1 Step (curb) (QC): 88 4 Steps (QC): 88 12 Steps (QC): 88 Picking up an Object (QC): 88 Does the Pt use WC or Scooter?: Yes Wheel 50 feet with 2 turns (QC: 2 Wheel 150 feet: 88 PT Plan Problem List Problem List: Activity Tolerance, Functional Strength, Safety, Balance, Gait, Transfer, Bed Mobility, ROM Treatment/Plan Treatment Plan: Continue Plan of Care Treatment Plan: Bed Mobility, Education, Functional Activity Vinicius, Functional Strength, Group Therapy, Gait, Safety, Therapeutic Exercise, Transfers Treatment Duration: May 24, 2020 Frequency: covid waiver 60 min per day Estimated Hrs Per Day: 1.5 hours per day Patient and/or Family Agrees t: Yes Safety Risks/Education Patient Education: Transfer Techniques, Correct Positioning, Safety Issues Teaching Recipient: Patient Teaching Methods: Demonstration, Discussion Response to Teaching: Reinforcement Needed Discharge Recommendations Plan Patient will perform bed mobility and transfer training, balance and endurance training, functional strengthening, gait training, and education, to improve functional mobility and independence at home. Therapy Discharge Recommendati: Other, See Comments (NH), Home & Family Time/GCodes Time In: 1100 Time Out: 1200 Total Billed Treatment Time: 50 Total Billed Treatment 1 visit EVM 10' FA 40' (only 2 units charged) PT eval from [id number], OT eval from [id number], co-treat from [id number] MARIA G ARORA PT May 03, 2020 13:15
--- NOTE | 2020-05-03 13:17 | NUR ---
SPOKE WITH THE PT ON 05-01-2020 WHEN THE PT WAS ON 4TH FLOOR. I HAVE REVIEWED ALL THE MEDICATIONS FOR CONTINUATION AMLODIPINE AND PROPRANOLOL ARE BOTH NEW MEDICATIONS
--- NOTE | 2020-05-03 14:02 | Occupational Therapy Eval ---
OT Evaluation-General/PLF Medical Diagnosis Admission Date May 03, 2020 at 11:00 Medical Diagnosis: Falls, Parkinsons Onset Date: Apr 30, 2020 Therapy Diagnosis Therapy Diagnosis: Weakness Height/Weight Height (Feet): 5 Height (Inches): 2.00 Weight (Pounds): 98 Weight (Ounces): 8.0 Weight Bear Status Weight Bearing Restriction: Weight Bearing/Tolerated Referral Physician: Alejandra Mckeon DO Referral Reason: Activity Tolerance, Self Care, Evaluation/Treatment, Strengthening/ROM Medical History Pertinent Medical History: Back Injury, CABG, HTN, Parkinson's Additional Medical History Familial tremor, anxiety, L4-S1 ALIF, cataracts Current History Pt's sister in room. OT talks with pt. and sister about current situation. Sister reports that pt. was independent with daily tasks and ambulation until approximately the beginning of March. Prior to that, she had essential tremors, but was still independent. She began having difficulty in March with ambulation, cognition, and taking care of herself. Sister moved in with her and at this time, bathes her, dresses her, and feeds her. Pt. was ambulating in March with cane, with sister's assist to propel each foot. At this time, pt. unable to ambulate. Pt's head is in forward flexed position. She is able to lift it brie fly with cues, but unable to maintain. Reviewed History: Yes Social History Home: Single Level Current Living Status: Alone (Sister is staying with her.) Steps Into Home: 5 Steps into home are shallow. ADL-Prior Level of Function SCALE: Activities may be completed with or without assistive devices. 7-Uifbyiabfs-ecpmogd completes the activity by him/herself with no assistance from a helper. 5-Set-up or Clean-up Assistance-helper sets up or cleans up; patient completes activity. [place] assists only prior to or following the activity. 4-Supervision or Touching Assistance-helper provides verbal cues and/or touching/steadying and/or contact guard assistance as patient completes activity. Assistance may be provided throughout the activity or intermittently. 3-Partial/Moderate Assistance-helper does LESS THAN HALF the effort. [place] lifts, holds or supports trunk or limbs, but provides less than half the effort. 2-Substantial/Maximal Assistance-helper does MORE THAN HALF the effort. [place] lifts or holds trunk or limbs and provides more than half the effort. 6-Ayzguvfoy-ckaekt does ALL the effort. Patient does none of the effort to complete the activity. Or, the assistance of 2 or more helpers is required for the patient to complete the activity. If activity was not attempted, code reason: 7-Patient Refused. 9-Not Applicable-not attempted and the patient did not perform the activity before the current illness, exacerbation or injury. 10-Not Attempted due to Environmental Limitations-(lack of equipment, weather restraints, etc.). 88-Not Attempted due to Medical Conditions or Safety Concerns. Self Care: Independent (Prior to March.) Functional Cognition: Unknown DME/Equipment: Bath Chair, Bedside Commode, Grab Bars, Shower, Tall Toilet DME/Equipment Comments Pt. has cane and walker. OT Current Status Subjective No pain reported. Appearance Pt. in reclining chair. Agrees to work with therapy. Mental Status/Objective Patient Orientation: Person Current Hand Dominance: Right Upper Extremity ROM Pt. is able to flex bilateral shoulders to approximately 90 degrees. Upper Extremity Strength 2+/5 bilateral UE strength. ADL-Treatment Eating (QC): 2 (Food arrived. Sister to feed pt.) Oral Hygiene (QC): 7 Shower/Bathe Self (QC): 1 (Sponge bath) Upper Body Dressing (QC): 2 Lower Body Dressing (QC): 1 On/Off Footwear (QC): 1 Toileting Hygiene (QC): 1 Other Treatments Pt. is seen with PT for co-treatment due to need of skilled assist x 2. PT addressed transfers and mobility while OT focused on ADL skills. Pt. has difficulty with full conversation, as she fatigues easily and is unable to keep head in upright posture. With standing, pt. requires max x 1-2, and it is noted that pt. has increased extensor tone. Pt. is unable to flex at hips or knees for smooth sit, and so this is facilitated for her. Pt. is incontinent x 2 in stance. Stood x 2 at parallel bars, max assist each time. Pt. able to stand approximately 2 minutes. Requires dependent assist for cleanse and clean brief placement after incontinence. Sister is able to give history regarding recent decline. Pt. in bed at end of treatment with HOB elevated. Food arrives and sister to feed pt. Will continue to address this. All needs met at bed level. Education OT Patient Education: Correct positioning, Modified ADL techniques, Progress t reyna Goal/Update tx plan, Purpose of tx/functional activities, Reviewed precautions, Rehab process, Transfer techniques Teaching Recipient: Patient, Family Teaching Methods: Demonstration, Discussion Response to Teaching: Verbalize Understanding, Reinforcement Needed OT Short Term Goals Short Term Goals Time Frame: May 17, 2020 Eatin Oral hygiene: 3 Toileting hygiene: 2 Shower/bathe self: 2 Upper body dressin Lower body dressin Putting on/taking off footwear: 3 OT Fci Goals Fci Goals Time Frame: May 31, 2020 Eating (QC): 4 Oral Hygiene (QC): 4 Toileting Hygiene (QC): 3 Shower/Bathe Self (QC): 3 Upper Body Dressing (QC): 4 Lower Body Dressing (QC): 3 On/Off Footwear (QC): 3 Additional Goals: 1-Demonstrate ADL Tasks, 2-Verbalize Understanding, 3-ImproveStrength/Vinicius 1=Demonstrate adherence to instructed precautions during ADL tasks. 2=Patient will verbalize/demonstrate understanding of assistive devices/modifications for ADL. 3=Patient will improve strength/tolerance for activity to enable patient to perform ADL's. OT Education/Plan Problem List/Assessment Assessment: Decreased Activ Tolerance, Decreased UE Strength, Dependent Transfers, Impaired Bed Mobility, Impaired Cognition, Impaired Funct Balance, Impaired I ADL's, Impaired Self-Care Skills Discharge Recommendations Plan/Recommendations: Continue POC Therapy Discharge Recommendati: 24 Hour Supervision Comment Equipment needs and discharge location to be determined. Treatment Plan/Plan of Care Treatment,Training & Education: Yes Patient would benefit from OT for education, treatment and training to promote independence in ADL's, mobility, safety and/or upper extremity function for ADL's. Plan of Care: ADL Retraining, Functional Mobility, UE Funct Exercise/Act Treatment Duration: May 31, 2020 Frequency: Modified Program (IRF) Estimated Hrs Per Day: Other (modified COVID waiver) Agreement: Yes Rehab Potential: Fair Pt. will be seen for 60 hours per day due to COVID waiver. Time/GCodes Start Time: 11:00 Stop Time: 12:10 Total Time Billed (hr/min): 60 Billed Treatment Time 5982-8946 PT eval, no charge [id number] 1, EVH x 10minutes [id number] ADL x 20minutes, FA x 30minutes Co-treatment with PT. Please see above note for designated roles. ALTON MARKS OT May 03, 2020 14:02
--- NOTE | 2020-05-03 15:05 | ST Cognitive Linguistic Eval ---
Speech Evaluation-General Medical Diagnosis Falls, Parkinsons Onset Date: Apr 30, 2020 Therapy Diagnosis Therapy Diagnosis: Cognitive-communication Referral Referring Physician: Dr. Mckeon Medical History Pertinent Medical History: Back Injury, CABG, HTN, Parkinson's Reviewed History: Yes Social History Current Living Status: Alone (Sister is staying with her.) Speech PLF-Current Status Prior Level of Function Patient's sister moved in with her at the first of March to assist her due to a significant decline in function. Patient is dependent for all daily needs. Subjective Patient was difficult to engage in cognitive assessment. Patient is noted to take an extremely long time to process information. Language Eval: Auditory Comprehends Simple Yes/No Ques: Mild Indent/Objects Multiple Walker: Moderate Ident/Pics in Multiple Walker: Moderate Follows 1-Step Commands: Moderate Follows Complex Directions: Severe Follows General Conversations: Moderate Language Eval: Verbal Language Completes Spontaneous Greeting: Mild Produces Auto, Serial Info: Moderate Imitates Simple Words/Phrases: Moderate Word Finding: Moderate Requests Basic Needs: Moderate States Basic Personal Info: Severe Expresses Complex Ideas: Severe Objective Cognitive Domain Attention: Moderate Memory: Severe Problem Solving: Severe Executive Functions: Severe Visuospatial Skills: Mild Composite Severity Rating: Severe Objective Formal/Standardized Tests [facility] Mental Status ([facility]) Results 4/30, Severe disability level of function Oral Motor/Speech Production 75% intelligibility, patient is edentulous as well Impression Patient is a 64 y/o female who was admitted to the ARU due to exacerbation of Parkinson's. Patient was given the SLUMS at bedside with a score of 4/30. This score is considered to be a severe level of function. Patient required multiple repetitions of questions with extra processing time allowed. The patient exhibits a flat affect and decreased level of communication. Patient will receive ST services for improving status, however progression is guarded due to the severity of her medical needs. Speech Patient Assess Expression of Ideas/Wants: Rarely/Never (1) Understanding Verbal Content: Sometimes Understands(2) Brief Interview-Mental Status: Yes Repetition of Three Words: None (0) Temporal Orientation: Year: Correct (3) Temporal Orientation: Month: No answer (0) Temporal Orientation: Day: Incorrect or No Answer(0) Recall : Wear to say "Sock": No, could not recall (0) Recall : Color: No, could not recall (0) Recall : Bed: No, could not recall (0) Memory/Recall Ability: None of the above were recalled Speech Short Term Goals Short Term Goals Short Term Goals 1) Patient will answer simple y/n questions with 80% given minimal cues. 2) Patient will demo completion of "fill in the blank" sentences at the initial level at 80% with minimal cues. 3) Patient will recall information at the 5 and 10 minute increments at 80% with minimal cues. Speech Gear Room Keeper Goals Gear Room Keeper Goals Patient will improve cognitive-communication necessary for safety and daily living tasks with minimal assist. Speech-Plan Patient/Family Goals Patient/Family Goals: Patient's discharge plan is unknown at this time. Treatment Plan Speech Therapy Treatment Plan: Continue Plan of Care Treatment Duration: May 12, 2020 Frequency: 4 times per week (Patient will receive skilled ST 4-5 times per week.) Estimated Hrs Per Day: .5 hour per day Rehab Potential: Fair Barriers to Learning: Patient's medical status Pt/Family Agrees to Plan: Yes Safety Risks/Education Teaching Recipient: Patient Teaching Methods: Discussion Response to Teaching: Verbalize Understanding, Reinforcement Needed Education Topics Provided: Safety within her room and utilization of the call light as needed. Time Speech Therapy Time In: 14:45 Speech Therapy Time Out: 15:00 Total Billed Time: 15 Billed Treatment Time 1, GEORGE Shafer May 03, 2020 15:05
[2020-05-03] MEDS ORDERED: ENOXAPARIN 30 MG/0.3 ML (LOVENOX) SYR SC SCH (15:15)
[2020-05-03] MEDS ORDERED: PATIENT MAY USE OWN MEDS, ALL MC SCH (15:15)
[2020-05-03] MEDS ORDERED: LORazepam 0.5 MG (ATIVAN) TABLET PO PRN (15:15)
[2020-05-03] MEDS ORDERED: HYDROcodone/APAP 5 MG/325 MG (LORTAB) TAB PO PRN (15:15)
[2020-05-03] MEDS ORDERED: ONDANSETRON 4 MG/2 ML (SDV) Z0FRAN IVP PRN (15:15)
--- NOTE | 2020-05-03 15:47 | Physical Therapy Daily Note ---
PT Daily Note-Current Subjective Patient in bed pre tx, agrees to PT, has no complaints of pain. Patient has went to the restroom in the bed, nursing needs to clean and change her, PT will assist with rolling and bed mobility during this. Appearance Patient in bed post tx with nurse call, phone, tray, all needs met. Mental Status Patient Orientation: Person, Confused, Unable to Assess Transfers SCALE: Activities may be completed with or without assistive devices. 1-Ckuclzyddg-htbszbu completes the activity by him/herself with no assistance from a helper. 5-Set-up or Clean-up Assistance-helper sets up or cleans up; patient completes activity. [place] assists only prior to or following the activity. 4-Supervision or Touching Assistance-helper provides verbal cues and/or touching/steadying and/or contact guard assistance as patient completes activity. Assistance may be provided throughout the activity or intermittently. 3-Partial/Moderate Assistance-helper does LESS THAN HALF the effort. [place] lifts, holds or supports trunk or limbs, but provides less than half the effort. 2-Substantial/Maximal Assistance-helper does MORE THAN HALF the effort. [place] lifts or holds trunk or limbs and provides more than half the effort. 9-Czwovzwob-hzsxvy does ALL the effort. Patient does none of the effort to complete the activity. Or, the assistance of 2 or more helpers is required for the patient to complete the activity. If activity was not attempted, code reason: 7-Patient Refused. 9-Not Applicable-not attempted and the patient did not perform the activity before the current illness, exacerbation or injury. 10-Not Attempted due to Environmental Limitations-(lack of equipment, weather restraints, etc.). 88-Not Attempted due to Medical Conditions or Safety Concerns. Roll Left & Right (QC): 1 Patient is able to assist with rolling a little with her arms, not enough to be max assist, rolled several times for cleaning, dressing, changing bed. Weight Bearing Right Lower Extremity: Right Weight Bearing/Tolerated Left Lower Extremity: Left Weight Bearing/Tolerated Exercises BLE stretching Treatments stretching, bed mobility training Assessment Current Status: Poor Progress Patient has severe tone and/or contractures in ankles PT Short Term Goals Short Term Goals Time Frame: May 10, 2020 Roll Left & Right: 2 Sit to lyin Lying to sitting on side of be: 2 Sit to stand: 2 Chair/pvf-io-maizy transfer: 2 PT [facility] Goals Make Up Operator Helper Goals PT Make Up Operator Helper Goals Time Frame: May 24, 2020 Roll Left & Right (QC): 3 Sit to Lying (QC): 3 Lying-Sitting on Side/Bed(QC): 3 Sit to Stand (QC): 3 Chair/Tfs-bb-Tbgxi Xfer(QC): 3 Toilet Transfer (QC): 3 Car Transfer (QC): 3 Does the Patient Walk: No and Walking Goal IS indicated Walk 10 feet (QC): 3 Walk 50ft with 2 Turns (QC): 88 Walk 150 ft (QC): 88 Walking 10ft on Uneven Surface: 88 1 Step (curb) (QC): 88 4 Steps (QC): 88 12 Steps (QC): 88 Picking up an Object (QC): 88 Does the Pt use WC or Scooter?: Yes Wheel 50 feet with 2 turns (QC: 2 Wheel 150 feet: 88 PT Plan Problem List Problem List: Activity Tolerance, Functional Strength, Safety, Balance, Gait, Transfer, Bed Mobility, ROM Treatment/Plan Treatment Plan: Continue Plan of Care Treatment Plan: Bed Mobility, Education, Functional Activity Vinicius, Functional Strength, Group Therapy, Gait, Safety, Therapeutic Exercise, Transfers Treatment Duration: May 24, 2020 Frequency: alen green 60 min per day Estimated Hrs Per Day: 1.5 hours per day Patient and/or Family Agrees t: Yes Safety Risks/Education Patient Education: Correct Positioning, Safety Issues Teaching Recipient: Patient Teaching Methods: Demonstration, Discussion Response to Teaching: Reinforcement Needed Time/GCodes Time In: 1525 Time Out: 1545 Total Billed Treatment Time: 20 Total Billed Treatment 1 visit FA 20' MARIA G ARORA PT May 03, 2020 15:47
--- NOTE | 2020-05-03 16:10 | PM&R Post Admission Assessment ---
PM&R HP Date of Visit: May 03, 2020 Time of Visit: 13:00 History of Present Illness CC: Severe debility from Parkinson's/Severe essential tremor HPI: This is a 64yoWF clinic Pt of [facility] who has a PMH of severe essential tremor versus Parkinson's who lives at home with her sister, who presented to the ER on Friday with ever hyponatremia of 122 with severe weakness and falls, she is already on Primidone of 100 mg at night with Sinemet with minimal improvement of her tremor, at this current time Pt has difficulty expressing herself. It appears that she does have a cognitive deficit component, but her prior level of functioning was at home with her sister and she was able to participate with her ADLs but she did meet criteria to have structured PT to be able to return home with her sister. 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 Scoliosis is severe and lifelong and interferes in her ability to recover quickly. Past Qrtegri-Tdfgzz-Hfmphj Hx Past Med/Social Hx: Reviewed Nursing Past Med/Soc Hx, Reviewed and Corrections made Patient Social History Marrital Status: single Employed/Student: unemployed Alcohol Use: Denies Use Alcohol Beverage of Choice: Vodka Recreational Drug Use: Yes (ALCOHOLISM) Smoking Status: Former Smoker Former Smoker, Quit: Jun 02, 2013 Type Used: Cigarettes 2nd Hand Smoke Exposure: No Physical Abuse Screen: No Sexual Abuse: No Recent Foreign Travel: No Contact w/other who traveled: No Recent Hopitalizations: Yes (HYPONATREMIA, TREMORS) Recent Infectious Disease Expo: No Immunizations Up To Date Pediatric: No Seasonal Allergies Seasonal Allergies: No Past Medical History Surgeries: Orthopedic Cardiac: Hypertension, Syncope Neurological: Parkinson's Disease Reproductive: No Sexually Transmitted Disease: No HIV/AIDS: No Musculoskeletal: Scoliosis, Chronic Back Pain HEENT: Cataract Loss of Vision: Bilateral Hearing Impairment: Denies Psychosocial: Anxiety, Depression History of Blood Disorders: Yes (ANEMIA) Adverse Reaction to Blood Conner: No (N/A) Family History Cardiovascular disease 19 MOTHER Diabetes mellitus 19 MOTHER Hypertension 19 MOTHER Myocardial infarction 19 MOTHER Psychosocial problem 19 FATHER 19 MOTHER G8 SISTER Diabetes, Hypertension Prior Level of Function Bed Mobility: 4 Transfers: 4 Gait: 4 Prior Devices Use: Walker Self Care: Independent (Prior to ) Functional Cognition: Unknown Occupation: Pt. is disabled Current Level of Fuctioning Roll Left to Right: 1 Sit to Lyin Lying to Sitting/Side of Bed: 1 Sit to Stand: 1 Chair/Eca-vj-Egvnk Xfer: 1 Car Transfer: 1 Walk 10 feet: 88 Walk 50 ft with 2 Turns: 88 Walk 150 ft: 88 Walking 10ft on uneven surface: 88 Wheel 50 ft with 2 turns: 1 Wheel 150 ft: 1 1 Step (curb): 88 4 Steps: 88 12 Steps: 88 Eatin (Food arrived. Sister to feed pt.) Oral Hygiene: 7 Shower/Bathe Self: 1 (Sponge bath) Upper Body Dressin Lower Body Dressin On/Off Footwear: 1 Toileting Hygiene: 1 PM&R Allergy/Meds/Data Review Allergies Coded Allergies: Penicillins (Verified Allergy, Unknown, 06/02/18) alendronate sodium (Verified Allergy, Unknown, 06/02/18) bacitracin (Verified Allergy, Unknown, 06/02/18) lactose (Verified Allergy, Unknown, 06/02/18) neomycin (Verified Allergy, Unknown, 06/02/18) polymyxin B (Verified Allergy, Unknown, 06/02/18) raloxifene (Verified Allergy, Unknown, leg swelling, 06/02/18) Home Medications Scheduled Amlodipine Besylate (Amlodipine Besylate), 5 MG PO DAILY Calcium Carbonate (Calcium), 600 MG PO DAILY, (Reported) Carbidopa/Levodopa (Carbidopa-Levodopa 25-100 Tab), 1 EA PO TID, (Reported) Cholecalciferol (Vitamin D3) (Vitamin D3), 25 MCG PO DAILY, (Reported) Docusate Sodium (Docusate Sodium), 100 MG PO DAILY, (Reported) Ferrous Sulfate (Iron), 650 MG PO DAILY, (Reported) Fluoxetine HCl (Fluoxetine HCl), 20 MG PO DAILY, (Reported) Lorazepam (Ativan), 0.5 MG PO HS, (Reported) Polyethylene Glycol 3350 (Miralax), 17 GM PO DAILY, (Reported) Primidone (Mysoline), 100 MG PO HS, (Reported) Propranolol HCl (Propranolol HCl), 20 MG PO BID Discontinued Medications Carbidopa/Levodopa (Carbidopa-Levo 25-100 mg Odt), 1 EACH PO TID, (Reported) Discontinued Reason: Duplicate Order Cholecalciferol (Vitamin D3) (Vitamin D), 1,000 UNIT PO BID, (Reported) Discontinued Reason: Prescription changed Cyanocobalamin (Vitamin B-12) (Vitamin B12), 2,500 MCG PO DAILY, (Reported) Discontinued Reason: No Longer Taking Docusate Sodium (Colace), 100 MG PO DAILY Discontinued Reason: Duplicate Order Ferrous Sulfate, Dried (Iron), 159 MG PO DAILY, (Reported) Discontinued Reason: Duplicate Order Lorazepam (Lorazepam), 0.5 MG PO HS PRN for TREMORS, (Reported) Discontinued Reason: Duplicate Order Na Phos,M-B/Na Phos,Di-Ba (Fleet Enema), 133 ML RC ONCE Discontinued Reason: No Longer Taking [place]-3 Fatty Acids ([place]-3), 1,000 MG PO DAILY, (Reported) Discontinued Reason: No Longer Taking Polyethylene Glycol 3350 (Miralax), 17 GM PO BID Discontinued Reason: Duplicate Order Primidone (Mysoline), 25 MG PO HS Discontinued Reason: New Order Tramadol HCl (Tramadol HCl), 50 MG PO PRN, (Reported) Discontinued Reason: No Longer Taking Current Medications Current Medications Reviewed Review of Systems Constitutional: see HPI, dizziness, malaise, weakness, weight loss EENTM: no symptoms reported Respiratory: no symptoms reported Cardiovascular: no symptoms reported Gastrointestinal: constipation Genitourinary: no symptoms reported Musculoskeletal: back pain Skin: no symptoms reported Psychiatric/Neurological: Anxiety, Depressed, Numbness, Weakness Physical Exam Physical Exam Vital Signs Vital Signs - First Documented 05/03/20 11:00 Temp 36.6 Pulse 80 Resp 18 B/P (MAP) 157/89 Pulse Ox 99 O2 Delivery Room Air Capillary Refill : Height, Weight, BMI Height: 5'2.00" Weight: 98lbs. 8.0oz. 44.740423pa; 19.04 BMI Method:Estimated General Appearance: No Apparent Distress, WD/WN, Chronically ill, Thin Eyes: Bilateral Eye Normal Inspection, Bilateral Eye PERRL HEENT: PERRL/EOMI, Normal ENT Inspection, Pharynx Normal Neck: Normal Inspection, Non Tender, Supple, Carotid Bruit, Limited Range of M otion Respiratory: Chest Non Tender, Lungs Clear, No Accessory Muscle Use, No Respiratory Distress, Decreased Breath Sounds Cardiovascular: Regular Rate, Rhythm, No Edema, No Gallop, No JVD, No Murmur, Normal Peripheral Pulses Gastrointestinal: Normal Bowel Sounds, No Organomegaly, No Pulsatile Mass, Non Tender, Soft Back: Normal Inspection, No CVA Tenderness, No Vertebral Tenderness, Decreased Range of Motion, Other (scoliosis) Extremity: Normal Capillary Refill, Normal Inspection, Normal Range of Motion, Non Tender, No Calf Tenderness, No Pedal Edema Neurologic/Psychiatric: Alert, Oriented x3, Abnormal Gait, Depressed Affect, Motor Weakness (Severe Tremor, generalized weakness, ) Skin: Normal Color, Warm/Dry Lymphatic: No Adenopathy PM&R Medical Assessment & Plan REHAB/MEDICAL ASSESSMENT AND PLAN: REHAB IMPAIRMENT GROUP: Parkinson's ETIOLOGIC DIAGNOSIS: Parkinson's The comorbidities that impact the patients function and/or functional outcome by: severe debility, severe and progressive neuro deficits, cognitive decline, fall risk REHAB PLAN: The patient is being admitted to our comprehensive inpatient rehabilitation facility and can tolerate the intensity of service consisting of at least: 180 minutes of therapy a day, 5 out of 7 days a week Rehab treatment will consist of: PT OT ST will all work together to resolve severe deficits from hyponatremia in order to return home The patient/family has a good understanding of our discharge process and will benefit from an interdisciplinary inpatient rehabilitation program. The patient has potential to make improvement and is in need of at least two of the following multidisciplinary therapies including but not limited to physical, occupational, speech, and prosthetics and orthotics. Additionally the patient will need services from respiratory, nutritional services, wound care, psychology, etc. (Customize this to each patient). Given the patients complex condition and risk of further medical complications, rehabilitation services cannot be safely or effectively provided at a lower level of care such as a chcf facility. BARRIERS TO DISCHARGE: severe neuro deficits ESTIMATED LOS: 10 days DISPOSITION: home with sister RELEVANT CHANGES SINCE PREADMISSION SCREENING: I have compared the patients medical and functional status at the time of the preadmission screening and there are: no changes PROGNOSIS: fair REHABILITATION GOALS: 1. PT OT ST will all work together to resolve severe deficits from hyponatremia in order to return home All the above goals were reviewed with the patient and he/she is in agreement. By signing this document, I acknowledge that I have personally performed a full physical examination on this patient within 24 hours of admission to this inpatient rehabilitation facility and have determined the patient to be able to tolerate the above course of treatment at an intensive level for a reasonable period of time. I will be completing a detailed individualized Plan of Care for this patient by day #4 of the patients stay based upon the Preadmission Screen, the Post-Admission Evaluation, and the therapy evaluations. Admission Dx/Comorbidities: (1) Parkinson disease Status: Chronic ICD Codes: G20 - Parkinson's disease (2) Thrombocytosis Status: Resolved ICD Codes: D47.3 - Essential (hemorrhagic) thrombocythemia (3) Elevated AST (SGOT) Status: Acute ICD Codes: R74.0 - Nonspecific elevation of levels of transaminase and lactic acid dehydrogenase [LDH] (4) DVT prophylaxis Status: Acute ICD Codes: Z29.9 - Encounter for prophylactic measures, unspecified (5) Frequent falls Status: Acute ICD Codes: R29.6 - Repeated falls (6) Tremor Status: Chronic ICD Codes: R25.1 - Tremor, unspecified (7) Constipation Status: Acute ICD Codes: K59.00 - Constipation, unspecified (8) Scoliosis ICD Codes: M41.9 - Scoliosis, unspecified (9) Hyponatremia Status: Acute ICD Codes: E87.1 - Hypo-osmolality and hyponatremia (10) Syncope Status: Acute ICD Codes: R55 - Syncope and collapse Assessment/Plan Assessment and Plan Assess & Plan/Chief Complaint Assessment: PD Hyponatremia Constipation Scoliosis Elevated AST Falls Cognitive deficit Plan: Fluid restrict IRF protocol BM regimen Home meds HAYDER Laboy DO May 03, 2020 16:10
[2020-05-03] MEDS: CALCIUM CARBONATE 600 MG (CALCARB) TAB PO SCH (17:46)
[2020-05-03] MEDS: ENOXAPARIN 30 MG/0.3 ML (LOVENOX) SYR SC SCH (17:49)
[2020-05-03 18:00] VITALS: BP 153/84
[2020-05-03] MEDS ORDERED: SENNA W/DOCUSATE (SENOKOT S) TABLET PO SCH (21:00)
[2020-05-03] MEDS ORDERED: polyethylene glycoL POWDER 17 GM (MIRALAX) PACK PO SCH (21:00)
[2020-05-03] MEDS: PRIMIDONE 50 MG TAB (MYSOLINE) PO SCH (22:03)
[2020-05-03] MEDS: VITAMIN D3 25 MCG (1,000 UNITS) TABLET PO SCH (22:03)
[2020-05-03] MEDS: PROPRANOLOL 20 MG (INDERAL) TABLET PO SCH (22:03)
[2020-05-03] MEDS: SENNA W/DOCUSATE (SENOKOT S) TABLET PO SCH (22:04)
[2020-05-03] MEDS: polyethylene glycoL POWDER 17 GM (MIRALAX) PACK PO SCH (22:04)
[2020-05-03] MEDS: SINEMET 25/100 (CARBIDOPA/LEVODOPA) TAB PO SCH (22:05)
[2020-05-04 05:25] LABS: BASOPHILS % (AUTO) 1 % (0-10); EOSINOPHILS # (AUTO) 0.1 10^3/uL (0.0-0.3); EOSINOPHILS % (AUTO) 1 % (0-10); HEMATOCRIT 33 % (35-52); HEMOGLOBIN 11.6 G/DL (11.5-16.0); LYMPHOCYTES # (AUTO) 1.3 X 10^3 (1.0-4.0); LYMPHOCYTES % (AUTO) 28 % (12-44); MEAN CORPUSCULAR HEMOGLOBIN 28 PG (25-34); MEAN CORPUSCULAR HGB CONC 35 G/DL (32-36); MEAN CORPUSCULAR VOLUME 81 FL (80-99); MEAN PLATELET VOLUME 8.2 FL (7.4-10.4); MONOCYTES # (AUTO) 0.6 X 10^3 (0.0-1.0); MONOCYTES % (AUTO) 13 % (0-12); NEUTROPHILS # (AUTO) 2.7 X 10^3 (1.8-7.8); NEUTROPHILS % (AUTO) 58 % (42-75); PLATELET COUNT 460 10^3/uL (130-400); RED CELL DISTRIBUTION WIDTH 14.2 % (10.0-14.5); WHITE BLOOD COUNT 4.6 10^3/uL (4.3-11.0)
[2020-05-04 05:32] LABS: ALBUMIN 3.8 GM/DL (3.2-4.5)
[2020-05-04 05:33] LABS: CHLORIDE 94 MMOL/L (98-107); POTASSIUM 3.7 MMOL/L (3.6-5.0)
[2020-05-04 05:35] LABS: GLUCOSE 95 MG/DL (70-105); TOTAL PROTEIN 7.3 GM/DL (6.4-8.2)
[2020-05-04 05:36] LABS: CARBON DIOXIDE 21 MMOL/L (21-32)
[2020-05-04 05:37] LABS: BILIRUBIN,TOTAL 0.4 MG/DL (0.1-1.0)
[2020-05-04 05:38] LABS: ALKALINE PHOSPHATASE 55 U/L (40-136)
[2020-05-04 05:39] LABS: CREATININE SERUM 0.58 MG/DL (0.60-1.30); GFR ESTIMATED > 60
[2020-05-04 05:40] LABS: BUN/CREATININE RATIO 16
[2020-05-04 05:42] LABS: ALANINE AMINOTRANSFERASE 9 U/L (0-55)
[2020-05-04 05:45] VITALS: BP 155/84
[2020-05-04 05:56] LABS: SODIUM 125 MMOL/L (135-145)
--- NOTE | 2020-05-04 06:08 | NUR ---
CRITICAL SODIUM LEVEL OF [address] VALLES BY THIS NURSE. NO NEW ORDERS RECEIVED AT THIS TIME. PHYSICIAN STATES SHE WILL ADDRESS AT ROUNDS THIS AM.
--- NOTE | 2020-05-04 06:29 | PM&R Progress Note ---
Subjective HPI/CC On Admission Date Seen by Provider: May 04, 2020 Time Seen by Provider: 10:00 Subjective/Events-last exam Sodium level 125 continuing fluid restriction, I started on sodium pills Updated sister at the bedside today Will DC the megan Had a BM today per therapy Pt drowsy and overall very debilitated The sister told me that I had met them in the past with a knee replacement and here at [facility] when she had spine sx Checked meds and labs Conferred with RN Reviewed therapy notes Review of Systems General: Fatigue Gastrointestinal: Constipation Neurological: Weakness, Numbness, Incoordination Objective Exam Vital Signs Vital Signs Date Time Temp Pulse Resp B/P (MAP) Pulse Ox O2 Delivery O2 Flow Rate FiO2 05/05/20 05:51 36.0 77 20 142/69 (93) 98 Room Air Capillary Refill : Less Than 3 Seconds General Appearance: No Apparent Distress, WD/WN, Chronically ill, Thin HEENT: PERRL/EOMI, Normal ENT Inspection, Pharynx Normal Neck: Normal Inspection, Non Tender, Supple, Carotid Bruit, Limited Range of Motion Respiratory: Chest Non Tender, Lungs Clear, No Accessory Muscle Use, No Respiratory Distress, Decreased Breath Sounds Cardiovascular: Regular Rate, Rhythm, No Edema, No Gallop, No JVD, No Murmur, Normal Peripheral Pulses Gastrointestinal: Normal Bowel Sounds, No Organomegaly, No Pulsatile Mass, Non Tender, Soft Back: Normal Inspection, No CVA Tenderness, No Vertebral Tenderness, Decreased Range of Motion, Other (scoliosis) Extremity: Normal Capillary Refill, Normal Inspection, Normal Range of Motion, Non Tender, No Calf Tenderness, No Pedal Edema Neurologic/Psychiatric: Alert, Oriented x3, Abnormal Gait, Depressed Affect, Motor Weakness (Severe Tremor, generalized weakness, ) Skin: Normal Color, Warm/Dry Lymphatic: No Adenopathy Results/Procedures Lab Patient resulted labs reviewed. FIM Transfers Therapy Code Descriptions/Definitions Functional [place] Measure: 0=Not Assessed/NA 4=Minimal Assistance 1=Total Assistance 5=Supervision or Setup 2=Maximal Assistance 6=Modified [place] 3=Moderate Assistance 7=Complete IndependenceSCALE: Activities may be completed with or without assistive devices. 5-Hwakcjsear-hbrizqz completes the activity by him/herself with no assistance from a helper. 5-Set-up or Clean-up Assistance-helper sets up or cleans up; patient completes activity. [place] assists only prior to or following the activity. 4-Supervision or Touching Assistance-helper provides verbal cues and/or touching/steadying and/or contact guard assistance as patient completes activity. Assistance may be provided throughout the activity or intermittently. 3-Partial/Moderate Assistance-helper does LESS THAN HALF the effort. [place] lifts, holds or supports trunk or limbs, but provides less than half the effort. 2-Substantial/Maximal Assistance-helper does MORE THAN HALF the effort. [place] lifts or holds trunk or limbs and provides more than half the effort. 9-Ptiouwtac-smwuxs does ALL the effort. Patient does none of the effort to complete the activity. Or, the assistance of 2 or more helpers is required for the patient to complete the activity. If activity was not attempted, code reason: 7-Patient Refused. 9-Not Applicable-not attempted and the patient did not perform the activity before the current illness, exacerbation or injury. 10-Not Attempted due to Environmental Limitations-(lack of equipment, weather restraints, etc.). 88-Not Attempted due to Medical Conditions or Safety Concerns. Roll Left to Right (QC): 1 Sit to Lying (QC): 1 Sit to Stand (QC): 1 Chair/Lag-jo-Vpfyf Xfer(QC): 1 Car Transfer (QC): 1 Gait Training Walk 10 feet (QC): 88 Walk 50 ft with 2 Turns(QC): 88 Walk 150 ft (QC): 88 Walking 10ft/uneven surface-QC: 88 Wheelchair Training Wheel 50 ft with 2 turns (QC): 1 Wheel 150 ft (QC): 1 Stair Training 1 Step (curb) (QC): 88 4 Steps (QC): 88 12 Steps (QC): 88 ADL-Treatment Eating (QC): 2 (Food arrived. Sister to feed pt.) Oral Hygiene (QC): 7 Shower/Bathe Self (QC): 1 (Sponge bath) Upper Body Dressing (QC): 2 Lower Body Dressing (QC): 1 On/Off Footwear (QC): 1 Toileting Hygiene (QC): 1 Assessment/Plan Assessment and Plan Assess & Plan/Chief Complaint Assessment: PD Hyponatremia due to SIADH Constipation Scoliosis Elevated AST Falls Cognitive deficit Plan: Fluid restrict IRF protocol BM regimen Home meds Lovenox (1) Parkinson disease Status: Chronic (2) Thrombocytosis Status: Resolved Resolution Date/Time: 05/03/20 @ 10:33 (3) Elevated AST (SGOT) Status: Acute (4) DVT prophylaxis Status: Acute (5) Frequent falls Status: Acute (6) Tremor Status: Chronic (7) Constipation Status: Acute (8) Scoliosis (9) Hyponatremia Status: Acute (10) Syncope Status: Acute HAYDER VALLES DO May 04, 2020 06:28
[2020-05-04 08:00] VITALS: BP 152/76
--- NOTE | 2020-05-04 09:00 | NUR ---
NIDA WORKING WITH THERAPY IN THE GYM, PTS IV CAME OUT. NOTIFIED DR. VALLES AND SHE VERIFIED IT WAS OK TO LEAVE IV OUT.
[2020-05-04] MEDS: CALCIUM CARBONATE 600 MG (CALCARB) TAB PO SCH ×2 (09:03→18:02)
[2020-05-04] MEDS: VITAMIN D3 25 MCG (1,000 UNITS) TABLET PO SCH ×2 (09:03→23:22)
[2020-05-04] MEDS: DOCUSATE SODIUM 100 MG (COLACE) CAP PO SCH (09:04)
[2020-05-04] MEDS: amLODIPine 5 MG (NORVASC) TAB PO SCH (09:04)
[2020-05-04] MEDS: FLUoxetine HCL 20 MG (PROzac) CAP PO SCH (09:05)
[2020-05-04] MEDS: PROPRANOLOL 20 MG (INDERAL) TABLET PO SCH ×2 (09:05→23:22)
[2020-05-04] MEDS: SENNA W/DOCUSATE (SENOKOT S) TABLET PO SCH ×2 (09:05→23:23)
[2020-05-04] MEDS: SODIUM CHLORIDE 1 GM TABLET PO SCH ×2 (09:06→23:22)
[2020-05-04] MEDS: SINEMET 25/100 (CARBIDOPA/LEVODOPA) TAB PO SCH ×3 (09:06→23:21)
--- NOTE | 2020-05-04 10:11 | Physical Therapy Daily Note ---
PT Daily Note-Current Subjective Patient in bed pre tx, agrees to PT, has no complaints of pain, will be co- treating with OT due to poor patient mobility, strength, endurance, balance, endurance, the need to coordinate UE and LE during activity, reduce the risk of falls Appearance Patient in recliner post tx with nurse call, phone, tray, all needs met, legs elevated and on pillow, sister in the room. Mental Status Patient Orientation: Person, Confused, Unable to Assess Transfers SCALE: Activities may be completed with or without assistive devices. 5-Qfuwdwjeff-gjmqyuv completes the activity by him/herself with no assistance from a helper. 5-Set-up or Clean-up Assistance-helper sets up or cleans up; patient completes activity. [place] assists only prior to or following the activity. 4-Supervision or Touching Assistance-helper provides verbal cues and/or touching/steadying and/or contact guard assistance as patient completes activity. Assistance may be provided throughout the activity or intermittently. 3-Partial/Moderate Assistance-helper does LESS THAN HALF the effort. [place] lifts, holds or supports trunk or limbs, but provides less than half the effort. 2-Substantial/Maximal Assistance-helper does MORE THAN HALF the effort. [place] lifts or holds trunk or limbs and provides more than half the effort. 6-Wcwdzbajq-iomnwp does ALL the effort. Patient does none of the effort to com plete the activity. Or, the assistance of 2 or more helpers is required for the patient to complete the activity. If activity was not attempted, code reason: 7-Patient Refused. 9-Not Applicable-not attempted and the patient did not perform the activity before the current illness, exacerbation or injury. 10-Not Attempted due to Environmental Limitations-(lack of equipment, weather restraints, etc.). 88-Not Attempted due to Medical Conditions or Safety Concerns. Roll Left & Right (QC): 1 Lying to Sitting/Side of Bed(Q: 1 Sit to Stand (QC): 1 Chair/Xsq-cs-Xhhjx Xfer(QC): 1 Patient supine to sit and transfer to shower chair. Stand again to remove brief, taken to shower, showered, transfer back to recliner, dressed (standing for lowers), transfer to , grooming, taken to therapy gym, standing in parallel bars x3 with max assist, ankle contractures and/or extensor tone keeps feet in plantarflexion, taken back to room and transferred to recliner. Weight Bearing Right Lower Extremity: Right Weight Bearing/Tolerated Left Lower Extremity: Left Weight Bearing/Tolerated Treatments bed mobility and transfers, standing, dressing, bathing, cleaning from BM in shower (standing). PT performed bed mobility and transfers, standing for dressing and cleaning from BM, standing in parallel bars, OT performed dressing, bathing, cleaning, UE positioning and safety during standing Assessment Current Status: Poor Progress no improvement in functional mobility PT Short Term Goals Short Term Goals Time Frame: May 10, 2020 Roll Left & Right: 2 Sit to lyin Lying to sitting on side of be: 2 Sit to stand: 2 Chair/aqu-iq-wvdmw transfer: 2 PT Central Services Tech Goals Senior Care Goals PT Central Services Tech Goals Time Frame: May 24, 2020 Roll Left & Right (QC): 3 Sit to Lying (QC): 3 Lying-Sitting on Side/Bed(QC): 3 Sit to Stand (QC): 3 Chair/Qpb-rf-Krkcx Xfer(QC): 3 Toilet Transfer (QC): 3 Car Transfer (QC): 3 Does the Patient Walk: No and Walking Goal IS indicated Walk 10 feet (QC): 3 Walk 50ft with 2 Turns (QC): 88 Walk 150 ft (QC): 88 Walking 10ft on Uneven Surface: 88 1 Step (curb) (QC): 88 4 Steps (QC): 88 12 Steps (QC): 88 Picking up an Object (QC): 88 Does the Pt use WC or Scooter?: Yes Wheel 50 feet with 2 turns (QC: 2 Wheel 150 feet: 88 PT Plan Problem List Problem List: Activity Tolerance, Functional Strength, Safety, Balance, Gait, Transfer, Bed Mobility, ROM Treatment/Plan Treatment Plan: Continue Plan of Care Treatment Plan: Bed Mobility, Education, Functional Activity Vinicius, Functional Strength, Group Therapy, Gait, Safety, Therapeutic Exercise, Transfers Treatment Duration: May 24, 2020 Frequency: alen wasue 60 min per day Estimated Hrs Per Day: 1.5 hours per day Patient and/or Family Agrees t: Yes Safety Risks/Education Patient Education: Transfer Techniques, Correct Positioning, Safety Issues Teaching Recipient: Patient Teaching Methods: Demonstration, Discussion Response to Teaching: Reinforcement Needed Time/GCodes Time In: 0900 Time Out: 1000 Total Billed Treatment Time: 60 Total Billed Treatment 1 visit FA 60' co-treated with OT for 60' MARIA G ARORA PT May 04, 2020 10:11
--- NOTE | 2020-05-04 13:31 | NUR ---
"RD ASSESSMENT PMHx: HTN; Parkinson's Disease; scoliosis PT INTERACTION: Pt was awake and pleasant during nutrition assessment. Note pt was hard to understand at times, and fell asleep during parts of assessment. Pt states current appetite is good. Note avg PO intake 100% x2meal, per chart review. Pt states no recent issues with nausea, vomiting, constipation, or diarrhea, and that she is unsure of her last BM. Pt states unsure of recent wt changes. Note recent 7# wt gain x2mon, per chart review. ABNORMAL NUTRITION-RELATED LAB VALUES LOW: Na 125; cr 0.58 HIGH: AST 56 Est. kcal needs: 4382-3782 kcal | 25-30 kcal/kg Est. Pro needs: 50-60 g Pro | 1.0-1.2 g Pro/kg PES STATEMENT: Given current appetite and PO intake, no nutrition diagnosis at this time (NO-1.1) INTERVENTION: Continue with current diet order of DYS2 Mechanically Altered diet, with modifier of Dry Trays. Will continue to follow and reassess as pt needs, intake, and status change. MONITOR/EVALUATE: PO Intake; Plan of Care; Hydration Status; Weight Status; Lab Values Laurel Merida, MS, RD, LD"
--- NOTE | 2020-05-04 13:40 | NUR ---
CM/SS ADMISSION Patient was admitted to [facility] 05/03/20 from [facility] for Parkinson's Disease. Other comorbidities are, in part, frequent falls, tremor, scoliosis, syncope. Patient resides in her own home and her sister Nazia Cleveland has been staying with her in a caregiver role. Nazia describes a rapid onset of decline prior to this presentation to emergency room and subsequent admission. The desired plan is return to home as before, discharge planning process to determine whether this is feasible financially as well as whether Nazia is able to provide level of care required. PCP: [facility] Azucena SANCHES APRN PHARMACY: [facility] INSURANCE: Medicare only. Civil Engineer Helper advised sister Nazia Cleveland to explore [facility] Medicaid through [facility] Alaina Castillo and she will followup on this today. Potential access to resources that may be beneficial to patient will be more readily available if funding source is pending or in place. DME: Will explore with patient and Nazia as well as recommendations by therapy team. ADVANCED MEDICAL DIRECTIVE: Patient has a document from 2007 naming her brother and sister as agents. Civil Engineer Helper got updated information regarding address and phone contacts. BARRIERS TO DISCHARGE PLANNING: Diagnosis/Parkinson's Disease, rapid decline per patient/sister. From home with one caregiver, attendant need to be determined. Insured Medicare only, any in-home services would be private pay as would assisted living. CONTACTS: Sister Rider, DPOA-HC, caregiver [address] [address] Corky Do, Brother, DPOA-HC [address] [place] [address] Nazia understands the purpose and process of the weekly patient care conference and that patient's first review will be Friday, May 10, 2020.
--- NOTE | 2020-05-04 13:45 | Occupational Ther Daily Note ---
OT Current Status-Daily Note Subjective No pain reported. Appearance Pt. in bed. Sister in room. Pt. agrees to work with therapy. Mental Status/Objective Patient Orientation: Unable to Assess ADL-Treatment Therapy Code Descriptions/Definitions Functional [place] Measure: 0=Not Assessed/NA 4=Minimal Assistance 1=Total Assistance 5=Supervision or Setup 2=Maximal Assistance 6=Modified [place] 3=Moderate Assistance 7=Complete IndependenceSCALE: Activities may be completed with or without assistive devices. 9-Drvjjsvajx-eefsbns completes the activity by him/herself with no assistance from a helper. 5-Set-up or Clean-up Assistance-helper sets up or cleans up; patient completes activity. [place] assists only prior to or following the activity. 4-Supervision or Touching Assistance-helper provides verbal cues and/or touching/steadying and/or contact guard assistance as patient completes activity. Assistance may be provided throughout the activity or intermittently. 3-Partial/Moderate Assistance-helper does LESS THAN HALF the effort. [place] lifts, holds or supports trunk or limbs, but provides less than half the effort. 2-Substantial/Maximal Assistance-helper does MORE THAN HALF the effort. [place] lifts or holds trunk or limbs and provides more than half the effort. 1-Cvmyithsm-neldfs does ALL the effort. Patient does none of the effort to complete the activity. Or, the assistance of 2 or more helpers is required for the patient to complete the activity. If activity was not attempted, code reason: 7-Patient Refused. 9-Not Applicable-not attempted and the patient did not perform the activity before the current illness, exacerbation or injury. 10-Not Attempted due to Environmental Limitations-(lack of equipment, weather restraints, etc.). 88-Not Attempted due to Medical Conditions or Safety Concerns. Eating (QC): 2 Shower/Bathe Self (QC): 1 Upper Body Dressing (QC): 2 Lower Body Dressing (QC): 1 On/Off Footwear: 1 Toileting Hygiene (QC): 1 Toilet Transfer (QC): 7 PT/OT co-treated due to need of skilled assist x 2. OT facilitated ADL skills while PT facilitated transfers and mobility. Pt. transferred to shower chair with max assist. Pt. was transferred into shower with assist via shower chair. Pt. attempted to hold shower sprayer, but began shaking and unable to complete task. OT fully showered pt. Pt. incontinent of bowel and urine while in shower. Dependent assistance for azucena care. Pt. able to engage in UE dressing by attempting to pull shirt over head. Dependent with all other tasks. Pt. went to therapy gym with OT/PT, and stood at parallel bar x 2. Noted severe plantar flexion and inability to place heel on ground. Noted that bilateral feet are externally rotated as well. Pt. taken back to room and transferred to reclining chair. OT brought in feeding equipment, to attempt to make feeding easier. OT placed 1 lb. wrist weight on right UE, and donned universal cuff. Pt. given container of ice cream, and encouraged to dip spoon with cuff in ice cream. Pt. able to do this, but unable to fully bring spoon to mouth. Weight did not seem to aide in tremors. Pt. was also issued darrion cup and foam handle farias to use in hospital as well. Sister is going to try this with pt. All needs met. Education OT Patient Education: Correct positioning, Exercise program, Modified ADL techniques, Progress toward Goal/Update tx plan, Purpose of tx/functional activities, Reviewed precautions, Rehab process, Transfer techniques, Use of adapted equipment Teaching Recipient: Patient Teaching Methods: Demonstration, Discussion Response to Teaching: Verbalize Understanding, Return Demonstration OT Short Term Goals Short Term Goals Time Frame: May 17, 2020 Eatin Oral hygiene: 3 Toileting hygiene: 2 Shower/bathe self: 2 Upper body dressin Lower body dressin Putting on/taking off footwear: 3 OT Penitentiary Goals Penitentiary Goals Time Frame: May 31, 2020 Eating (QC): 4 Oral Hygiene (QC): 4 Toileting Hygiene (QC): 3 Shower/Bathe Self (QC): 3 Upper Body Dressing (QC): 4 Lower Body Dressing (QC): 3 On/Off Footwear (QC): 3 Additional Goals: 1-Demonstrate ADL Tasks, 2-Verbalize Understanding, 3- ImproveStrength/Vinicius 1=Demonstrate adherence to instructed precautions during ADL tasks. 2=Patient will verbalize/demonstrate understanding of assistive devices/modifications for ADL. 3=Patient will improve strength/tolerance for activity to enable patient to perform ADL's. OT Education/Plan Problem List/Assessment Assessment: Decreased Activ Tolerance, Decreased UE Strength, Dependent Trans fers, Impaired Bed Mobility, Impaired Coordination, Impaired Funct Balance, Impaired I ADL's, Impaired Self-Care Skills, Restricted Funct UE ROM Discharge Recommendations Plan/Recommendations: Continue POC Therapy Discharge Recommendati: 24 Hour Supervision Treatment Plan/Plan of Care Treatment,Training & Education: Yes Patient would benefit from OT for education, treatment and training to promote independence in ADL's, mobility, safety and/or upper extremity function for ADL's. Plan of Care: ADL Retraining, Functional Mobility, UE Funct Exercise/Act Treatment Duration: May 31, 2020 Frequency: Modified Program (IRF) Estimated Hrs Per Day: Other (modified COVID waiver-60minutes/day) Agreement: Yes Rehab Potential: Fair Time/GCodes Start Time: 09:00 Stop Time: 10:10 Total Time Billed (hr/min): 70 Billed Treatment Time 5985-0267 1, ADL x 45minutes, FA x 15minutes-cotreatment with PT. Please see above note for designated roles. [id number] ADL x 10minutes ALTON MARKS OT May 04, 2020 13:45
[2020-05-04] MEDS: ENOXAPARIN 30 MG/0.3 ML (LOVENOX) SYR SC SCH (15:48)
[2020-05-04 16:04] VITALS: BP 96/60
[2020-05-04] MEDS: PRIMIDONE 50 MG TAB (MYSOLINE) PO SCH (23:22)
[2020-05-04] MEDS: polyethylene glycoL POWDER 17 GM (MIRALAX) PACK PO SCH (23:25)
[2020-05-05 05:51] VITALS: BP 142/69
[2020-05-05 08:00] VITALS: BP 144/75
[2020-05-05] MEDS: DOCUSATE SODIUM 100 MG (COLACE) CAP PO SCH (08:25)
[2020-05-05] MEDS: FLUoxetine HCL 20 MG (PROzac) CAP PO SCH (08:25)
[2020-05-05] MEDS: PROPRANOLOL 20 MG (INDERAL) TABLET PO SCH ×2 (08:25→20:29)
[2020-05-05] MEDS: VITAMIN D3 25 MCG (1,000 UNITS) TABLET PO SCH ×2 (08:25→20:28)
[2020-05-05] MEDS: amLODIPine 5 MG (NORVASC) TAB PO SCH (08:25)
[2020-05-05] MEDS: CALCIUM CARBONATE 600 MG (CALCARB) TAB PO SCH ×2 (08:25→18:07)
[2020-05-05] MEDS: SENNA W/DOCUSATE (SENOKOT S) TABLET PO SCH ×2 (08:26→20:30)
[2020-05-05] MEDS: SINEMET 25/100 (CARBIDOPA/LEVODOPA) TAB PO SCH ×3 (08:27→20:28)
[2020-05-05] MEDS: SODIUM CHLORIDE 1 GM TABLET PO SCH ×2 (08:27→20:29)
--- NOTE | 2020-05-05 09:50 | Physical Therapy Daily Note ---
PT Daily Note-Current Subjective Patient in recliner pre tx, agrees to PT, no complaints of pain at rest, will be co-treating with OT due to poor patient mobility, strength, endurance, balance (sitting and standing), the need to coordinate UE and LE during activity, reduce the risk of falls. Appearance Patient in bed post tx with nurse call, phone, tray, all needs met. Mental Status Patient Orientation: Person, Unable to Assess, [place] Transfers SCALE: Activities may be completed with or without assistive devices. 5-Eowxcjpsul-ljkgzcs completes the activity by him/herself with no assistance from a helper. 5-Set-up or Clean-up Assistance-helper sets up or cleans up; patient completes activity. [place] assists only prior to or following the activity. 4-Supervision or Touching Assistance-helper provides verbal cues and/or touching/steadying and/or contact guard assistance as patient completes activity. Assistance may be provided throughout the activity or intermittently. 3-Partial/Moderate Assistance-helper does LESS THAN HALF the effort. [place] lifts, holds or supports trunk or limbs, but provides less than half the effort. 2-Substantial/Maximal Assistance-helper does MORE THAN HALF the effort. [place] lifts or holds trunk or limbs and provides more than half the effort. 3-Vbqqxslbx-zuhtsi does ALL the effort. Patient does none of the effort to complete the activity. Or, the assistance of 2 or more helpers is required for the patient to complete the activity. If activity was not attempted, code reason: 7-Patient Refused. 9-Not Applicable-not attempted and the patient did not perform the activity before the current illness, exacerbation or injury. 10-Not Attempted due to Environmental Limitations-(lack of equipment, weather restraints, etc.). 88-Not Attempted due to Medical Conditions or Safety Concerns. Sit to Lying (QC): 1 Sit to Stand (QC): 1 Chair/Tvo-vt-Fnhti Xfer(QC): 1 Patient is extremely rigid in the chair and has whole body tremors. In attempting to dress patient she slides forward in the chair due to her rigidity, stand patient and transfer to , could not sit in WC because she was so rigid and would not bend at the waist, transferred to bed and layed down, patient had a BM, cleaned patient, turned several times for cleaning, dependent Weight Bearing Right Lower Extremity: Right Weight Bearing/Tolerated Left Lower Extremity: Left Weight Bearing/Tolerated Exercises LE stretching in all planes, stretching was limited due to rigidity Assessment Current Status: Poor Progress patient very rigid, nurse notified, patient could not really participate due to her rigidity, she was just moved by therapies PT Short Term Goals Short Term Goals Time Frame: May 10, 2020 Roll Left & Right: 2 Sit to lyin Lying to sitting on side of be: 2 Sit to stand: 2 Chair/flf-ay-pjzjs transfer: 2 PT Custodial Goals [employer] Consultant Goals PT Custodial Goals Time Frame: May 24, 2020 Roll Left & Right (QC): 3 Sit to Lying (QC): 3 Lying-Sitting on Side/Bed(QC): 3 Sit to Stand (QC): 3 Chair/Jqr-hs-Vegpn Xfer(QC): 3 Toilet Transfer (QC): 3 Car Transfer (QC): 3 Does the Patient Walk: No and Walking Goal IS indicated Walk 10 feet (QC): 3 Walk 50ft with 2 Turns (QC): 88 Walk 150 ft (QC): 88 Walking 10ft on Uneven Surface: 88 1 Step (curb) (QC): 88 4 Steps (QC): 88 12 Steps (QC): 88 Picking up an Object (QC): 88 Does the Pt use WC or Scooter?: Yes Wheel 50 feet with 2 turns (QC: 2 Wheel 150 feet: 88 PT Plan Problem List Problem List: Activity Tolerance, Functional Strength, Safety, Balance, Gait, Transfer, Bed Mobility, ROM Treatment/Plan Treatment Plan: Continue Plan of Care Treatment Plan: Bed Mobility, Education, Functional Activity Vinicius, Functional Strength, Group Therapy, Gait, Safety, Therapeutic Exercise, Transfers Treatment Duration: May 24, 2020 Frequency: alen green 60 min per day Estimated Hrs Per Day: 1.5 hours per day Patient and/or Family Agrees t: Yes Safety Risks/Education Patient Education: Transfer Techniques, Correct Positioning, Safety Issues Teaching Recipient: Patient Teaching Methods: Demonstration, Discussion Response to Teaching: Reinforcement Needed Time/GCodes Time In: 0900 Time Out: 939 Total Billed Treatment Time: 40 Total Billed Treatment 1 visit FA 40' SAMSONLESIAMARIA G PT May 05, 2020 09:50
--- NOTE | 2020-05-05 09:56 | Occupational Ther Daily Note ---
OT Current Status-Daily Note Subjective Pt lying back in chair. Difficult to understand and takes time to respond to questions. Reported to nrsg. Mental Status/Objective Patient Orientation: Person, Place, Time, Situation ADL-Treatment PT/OT co-treat ([id number]), skills of 2 clinicians required due to medical complexity, decreased mobility, rigidity and low activity tolerance. PT working on transfers and stretching B LE's. OT working on ADLs and stretching B UE's. Pt incontinent of urine and bowel. Dependent with toileting, transfer and figueroa ssing. Pt has increased rigidity today, difficult have pt stay at 90* hip flexion during sitting, would slide out of chair. Pt transferred into bed to complete toileting hygiene due to incontinence. Assist x2 for bed mobility. PROM for stretch and to break up tone of B UE completed. Tone decreased until pt needed to move then increased with an increase in tremors. After session, pt lying in bed with call light/phone in reach. All needs met in room. Therapy Code Descriptions/Definitions Functional [place] Measure: 0=Not Assessed/NA 4=Minimal Assistance 1=Total Assistance 5=Supervision or Setup 2=Maximal Assistance 6=Modified [place] 3=Moderate Assistance 7=Complete IndependenceSCALE: Activities may be completed with or without assistive devices. 3-Oejrefykkw-nlpcdvq completes the activity by him/herself with no assistance from a helper. 5-Set-up or Clean-up Assistance-helper sets up or cleans up; patient completes activity. [place] assists only prior to or following the activity. 4-Supervision or Touching Assistance-helper provides verbal cues and/or touching/steadying and/or contact guard assistance as patient completes activity. Assistance may be provided throughout the activity or intermittently. 3-Partial/Moderate Assistance-helper does LESS THAN HALF the effort. [place] lifts, holds or supports trunk or limbs, but provides less than half the effort. 2-Substantial/Maximal Assistance-helper does MORE THAN HALF the effort. [place] lifts or holds trunk or limbs and provides more than half the effort. 1-Rgysuvacd-bnyiwl does ALL the effort. Patient does none of the effort to complete the activity. Or, the assistance of 2 or more helpers is required for the patient to complete the activity. If activity was not attempted, code reason: 7-Patient Refused. 9-Not Applicable-not attempted and the patient did not perform the activity before the current illness, exacerbation or injury. 10-Not Attempted due to Environmental Limitations-(lack of equipment, weather restraints, etc.). 88-Not Attempted due to Medical Conditions or Safety Concerns. Lower Body Dressing (QC): 1 Toileting Hygiene (QC): 1 Toilet Transfer (QC): 1 OT Short Term Goals Short Term Goals Time Frame: May 17, 2020 Eatin Oral hygiene: 3 Toileting hygiene: 2 Shower/bathe self: 2 Upper body dressin Lower body dressin Putting on/taking off footwear: 3 OT Snf Goals [employer] Goals Time Frame: May 31, 2020 Eating (QC): 4 Oral Hygiene (QC): 4 Toileting Hygiene (QC): 3 Shower/Bathe Self (QC): 3 Upper Body Dressing (QC): 4 Lower Body Dressing (QC): 3 On/Off Footwear (QC): 3 Additional Goals: 1-Demonstrate ADL Tasks, 2-Verbalize Understanding, 3- ImproveStrength/Vinicius 1=Demonstrate adherence to instructed precautions during ADL tasks. 2=Patient will verbalize/demonstrate understanding of assistive devices/modifications for ADL. 3=Patient will improve strength/tolerance for activity to enable patient to perform ADL's. OT Education/Plan Problem List/Assessment Assessment: Decreased Activ Tolerance, Decreased UE Strength, Dependent Transfers, Impaired Coordination, Impaired Funct Balance, Impaired I ADL's, Restricted Funct UE ROM Discharge Recommendations Plan/Recommendations: Continue POC Treatment Plan/Plan of Care Patient would benefit from OT for education, treatment and training to promote independence in ADL's, mobility, safety and/or upper extremity function for ADL's. Plan of Care: ADL Retraining, Functional Mobility, UE Funct Exercise/Act Treatment Duration: May 31, 2020 Frequency: Modified Program (IRF) Estimated Hrs Per Day: Other (modified COVID waiver-60minutes/day) Agreement: Yes Rehab Potential: Fair Time/GCodes Start Time: 09:00 Stop Time: 09:40 Total Time Billed (hr/min): 40 Billed Treatment Time 1 visit-ADL 2 (25 min) NM 1 (15 min) SHAWN VALERIO May 05, 2020 09:56
--- NOTE | 2020-05-05 10:18 | PM&R Progress Note ---
Subjective HPI/CC On Admission Date Seen by Provider: May 05, 2020 Time Seen by Provider: 10:30 Subjective/Events-last exam Patient "freezing up" per PT Will start Amantadine Bowels are moving UOP good No pain reported Cognition deficit noted Max assist Checked meds and labs Conferred with RN Reviewed therapy notes Review of Systems General: Fatigue Neurological: Weakness, Numbness, Incoordination Objective Exam Vital Signs Vital Signs Date Time Temp Pulse Resp B/P (MAP) Pulse Ox O2 Delivery O2 Flow Rate FiO2 05/05/20 05:51 36.0 77 20 142/69 (93) 98 Room Air Capillary Refill : Less Than 3 Seconds General Appearance: No Apparent Distress, WD/WN, Chronically ill, Thin HEENT: PERRL/EOMI, Normal ENT Inspection, Pharynx Normal Neck: Normal Inspection, Non Tender, Supple, Carotid Bruit, Limited Range of Motion Respiratory: Chest Non Tender, Lungs Clear, No Accessory Muscle Use, No Respiratory Distress, Decreased Breath Sounds Cardiovascular: Regular Rate, Rhythm, No Edema, No Gallop, No JVD, No Murmur, Normal Peripheral Pulses Gastrointestinal: Normal Bowel Sounds, No Organomegaly, No Pulsatile Mass, Non Tender, Soft Back: Normal Inspection, No CVA Tenderness, No Vertebral Tenderness, Decreased Range of Motion, Other (scoliosis) Extremity: Normal Capillary Refill, Normal Inspection, Normal Range of Motion, Non Tender, No Calf Tenderness, No Pedal Edema Neurologic/Psychiatric: Alert, Oriented x3, Abnormal Gait, Depressed Affect, Motor Weakness (Severe Tremor, generalized weakness, ) Skin: Normal Color, Warm/Dry Lymphatic: No Adenopathy Results/Procedures Lab Patient resulted labs reviewed. FIM Transfers Therapy Code Descriptions/Definitions Functional [place] Measure: 0=Not Assessed/NA 4=Minimal Assistance 1=Total Assistance 5=Supervision or Setup 2=Maximal Assistance 6=Modified [place] 3=Moderate Assistance 7=Complete IndependenceSCALE: Activities may be completed with or without assistive devices. 0-Yxmdenneqt-gyzvxtg completes the activity by him/herself with no assistance from a helper. 5-Set-up or Clean-up Assistance-helper sets up or cleans up; patient completes activity. [place] assists only prior to or following the activity. 4-Supervision or Touching Assistance-helper provides verbal cues and/or touching/steadying and/or contact guard assistance as patient completes activi ty. Assistance may be provided throughout the activity or intermittently. 3-Partial/Moderate Assistance-helper does LESS THAN HALF the effort. [place] lifts, holds or supports trunk or limbs, but provides less than half the effort. 2-Substantial/Maximal Assistance-helper does MORE THAN HALF the effort. [place] lifts or holds trunk or limbs and provides more than half the effort. 1-Jbnctyohb-ymufdd does ALL the effort. Patient does none of the effort to complete the activity. Or, the assistance of 2 or more helpers is required for the patient to complete the activity. If activity was not attempted, code reason: 7-Patient Refused. 9-Not Applicable-not attempted and the patient did not perform the activity before the current illness, exacerbation or injury. 10-Not Attempted due to Environmental Limitations-(lack of equipment, weather restraints, etc.). 88-Not Attempted due to Medical Conditions or Safety Concerns. Roll Left to Right (QC): 1 Sit to Lying (QC): 1 Sit to Stand (QC): 1 Chair/Tva-bk-Hbplp Xfer(QC): 1 Car Transfer (QC): 1 Gait Training Walk 10 feet (QC): 88 Walk 50 ft with 2 Turns(QC): 88 Walk 150 ft (QC): 88 Walking 10ft/uneven surface-QC: 88 Wheelchair Training Wheel 50 ft with 2 turns (QC): 1 Wheel 150 ft (QC): 1 Stair Training 1 Step (curb) (QC): 88 4 Steps (QC): 88 12 Steps (QC): 88 Balance Picking up an Object (QC): 88 ADL-Treatment Eating (QC): 2 Oral Hygiene (QC): 7 Shower/Bathe Self (QC): 1 Upper Body Dressing (QC): 2 Lower Body Dressing (QC): 1 On/Off Footwear (QC): 1 Toileting Hygiene (QC): 1 Toilet Transfer (QC): 7 Assessment/Plan Assessment and Plan Assess & Plan/Chief Complaint Assessment: PD Hyponatremia due to SIADH Constipation Scoliosis Elevated AST Falls Cognitive deficit "Freezing up" episodes Plan: Fluid restrict IRF protocol BM regimen Home meds Lovenox Amantadine (1) Parkinson disease Status: Chronic (2) Thrombocytosis Status: Resolved Resolution Date/Time: 05/03/20 @ 10:33 (3) Elevated AST (SGOT) Status: Acute (4) DVT prophylaxis Status: Acute (5) Frequent falls Status: Acute (6) Tremor Status: Chronic (7) Constipation Status: Acute (8) Scoliosis (9) Hyponatremia Status: Acute (10) Syncope Status: Acute HAYDER VALLES DO May 05, 2020 10:18
--- NOTE | 2020-05-05 11:07 | Individualized Plan of Care ---
Individualized Plan of Care Rehab Nursing IPOC Order Admission Date May 03, 2020 at 11:00 Current Orders Orders Admission Order(Inpt,Obs,Sdc) (05/03/20 10:22) Vital Signs: Per Unit Policy ( 08,16,00 (05/03/20 10:22) Adan King 09,21 (05/03/20 10:22) Sequential Compression Device Q4H (05/03/20 10:22) Direct Support Professional Caregiver-Inpt Rehab Con (05/03/20 10:22) Rehab Nursing Orders-Ipoc (05/03/20 10:22) Physical Therapy Rehab Orders (05/03/20 10:22) Occupational Therapy Rehab Ord (05/03/20 10:22) Speech Therapy Rehab Orders (05/03/20 10:22) Cbc With Automated Diff (05/04/20 06:00) Comprehensive Metabolic Panel (05/04/20 06:00) Intake & Output 06,14,22 (05/03/20 10:22) Precautions (Aru) (05/03/20 10:22) Weekly Weight WEEK (05/03/20 10:22) Rehab-Intensity Of Therapy (05/03/20 10:22) Initiate Admission Nursing Pro .admission (05/03/20 10:22) Acetaminophen Tablet (Tylenol Tablet) (05/03/20 10:30) Alprazolam Tablet (Xanax Tablet) (05/03/20 10:30) Calcium Carbonate Chew Tablet (Antacid C (05/03/20 10:30) Diphenhydramine Tablet (Benadryl Tablet) (05/03/20 10:30) Docusate Sodium Capsule (Colace Capsule) (05/03/20 10:30) Bisacodyl Suppository (Dulcolax Supposit (05/03/20 10:30) Lactulose Oral Solution (Enulose Oral So (05/03/20 10:30) Na Phos/Na Biphos Enema (Fleet Enema Francisco (05/03/20 10:30) Guaifenesin/Codeine Syrup (Robitussin Ac (05/03/20 10:30) Loperamide Tablet (Imodium Tablet) (05/03/20 10:30) Melatonin Tablet (Melatonin Tablet) (05/03/20 10:30) Polyethylene Glycol Powder Pkt (Miralax (05/03/20 21:00) Ondansetron Oral Dissolve Tab (Zofran (05/03/20 10:30) Senna S Tablet (Senokot S Tablet) (05/03/20 21:00) Dys2 Mechanically Altered (05/03/20 Lunch) Admission Arrival Bed Request (05/03/20 11:00) Enoxaparin Injection (Lovenox Injection) (05/03/20 16:00) Ensure Enlive (05/03/20 Dinner) Request Ot Evaluate & Treat (05/03/20 14:20) Dvt/Vte Risk - Notifiy Physici Q4H (05/03/20 14:20) Code/Resuscitation (05/03/20 15:06) Fluid Restriction (05/03/20 15:06) Initiate Admission Nursing Pro .admission (05/03/20 15:06) Up With Assistance As Tolerate (05/03/20 15:06) Weight Bearing Status (05/03/20 15:06) Acetaminophen Tablet (Tylenol Tablet) (05/03/20 15:15) Calcium Carbonate Tablet (Calcarb 600 Ta (05/03/20 18:00) Carbidopa/Levodopa 25/100 (Sinemet 25/10 (05/03/20 21:00) Cholecalciferol Capsule/Tablet (Vitamin (05/03/20 21:00) Docusate Sodium Capsule (Colace Capsule) (05/04/20 09:00) Enoxaparin Injection (Lovenox Injection) (05/03/20 15:15) Fluoxetine Capsule (Prozac Capsule) (05/04/20 09:00) Hydrocodone/Apap 5/325 Tablet (Lortab 5 (05/03/20 15:15) Lorazepam Tablet (Ativan Tablet) (05/03/20 15:15) Loperamide Tablet (Imodium Tablet) (05/03/20 15:15) Melatonin Tablet (Melatonin Tablet) (05/03/20 15:15) Ondansetron Injection (Zofran Injectio (05/03/20 15:15) Ondansetron Oral Dissolve Tab (Zofran (05/03/20 15:15) Patient May Use Own Meds, All (Patient M (05/03/20 15:15) Primidone Tablet (Mysoline Tablet) (05/03/20 21:00) Propranolol Tablet (Inderal Tablet) (05/03/20 21:00) Senna S Tablet (Senokot S Tablet) (05/03/20 21:00) Amlodipine Tablet (Norvasc Tablet) (05/04/20 09:00) Diphenhydramine Tablet (Benadryl Tablet) (05/03/20 15:15) Polyethylene Glycol Powder Pkt (Miralax (05/03/20 21:00) Iv Convert To [place] (Order) (05/03/20 15:10) Patient Visit (05/03/20 ) Speech Sound Lang Comp (05/03/20 ) Patient Visit (05/03/20 ) Pt Eval Moderate Complexity (05/03/20 ) Functional Activities, Ea 15 (05/03/20 ) Patient Visit (05/03/20 ) Functional Activities, Ea 15 (05/03/20 ) Dys2 Mechanically Altered (05/03/20 Dinner) Sodium Chloride Tablet (Sodium Chloride (05/04/20 09:00) Patient Visit (05/04/20 ) Functional Activities, Ea 15 (05/04/20 ) Amantadine Capsule (Symmetrel Capsule) (05/05/20 11:00) Basic Metabolic Panel (05/06/20 09:00) Patient Visit (05/05/20 ) Functional Activities, Ea 15 (05/05/20 ) Patient Visit (05/05/20 ) Treat. Speech/Lang/Voice (05/05/20 ) Rehab Nursing Orders: Ongoing Assess. of Cognitive Status, Ongoing Assess. of Function Status, Bladder Management, Bladder Scan, Bladder Training, Bowel Management, Bowel Training, Disease Management & Educaiton, DVT Prophylaxis, Fall Prevention, Fluid/Electrolyte/Nutrition Mgmt, Infection Prevention, Medication Management & Education, Management of Risks & Complications, Management of Skin Intergrity, Nutrition Management, Pain Management, Nelia ent/Family Support, Safety Management, Swallow Precautions Intensity of Therapy to be met Patient to be seen: 15 hrs over 7 cons. days PT IPOC Problem List: Activity Tolerance, Functional Strength, Safety, Balance, Gait, Transfer, Bed Mobility, ROM Treatment Plan: Continue Plan of Care Bed Mobility, Education, Functional Activity Vinicius, Functional Strength, Group Therapy, Gait, Safety, Therapeutic Exercise, Transfers Treatment Duration: May 24, 2020 Frequency: covid waiver 60 min per day Estimated Hrs Per Day: 1.5 hours per day OT IPOC Problems: Decreased Activ Tolerance, Decreased UE Strength, Dependent Transfers, Impaired Bed Mobility, Impaired Coordination, Impaired Funct Balance, Impaired I ADL's, Impaired Self-Care Skills, Restricted Funct UE ROM OT Treatment, Training and Edu: Yes Plan of Care: ADL Retraining, Functional Mobility, UE Funct Exercise/Act Treatment Duration: May 31, 2020 Frequency: Modified Program (IRF) Estimated Hrs Per Day: Other (modified COVID waiver-60minutes/day) ST IPOC Speech Therapy Treatment Plan: Continue Plan of Care Treatment Duration: May 12, 2020 Frequency: 4 times per week (Patient will receive skilled ST 4-5 times per week.) Estimated Hrs Per Day: .5 hour per day Direct Support Professional Caregiver/Case Mgmt Direct Support Professional Caregiver/Case Managemen: Discharge Planning Dietitian/Zoning Engineer Dietitian/Zoning Engineer to monitor nutritional status and make changes and/or recommendations as needed and work with speech pathology on dietary upgrades as the occur. Physician IPOC Medical Issues being managed closely and that require the 24 hour availability of a physician: Severe disability at baseline and increased now to max assist and severe tremor intensity with major fall risk and severe low sodium level in need of close monitoring for decompensation Medical Issues: Bowel/Bladder Function, DVT Prophylaxis, Falls Precautions, Fluid/Electrolyte/Nutrition Balance, Infection Protection, Pain Management, Swallowing Precautions Brief Synthesis of Preadmission Screen, Post-Admission Evaluation, and Therapy Evaluations: PT OT ST will all focus together to increase independence of ADL's and help ambulate and regain enough function to return to baseline Medical Prognosis: Fair Anticipated Length of Stay: 7 days Patient was admitted to the ARU during this COVID-19 emergency. The ARU is the best and most appropriate post-acute care setting for this patient at this current time. Patient meets IRF admission criteria, however, will be unable to tolerate 3 hours of therapy/5 days per week. This patient's individualized intensive rehabilitation plan is to receive 2 hours of therapy per day, by receiving 1 hour of PT and 1 hour of OT 5 out of 7 days per the patient's week. As an interdisciplinary team, we will discuss this patient's ability to tolerate an increase in the intensity of therapy to be provided throughout the patient's stay. HAYDER VALLES DO May 05, 2020 11:07
[2020-05-05] MEDS: AMANTADINE 100 MG (SYMMETREL) CAP PO SCH ×2 (12:32→20:29)
--- NOTE | 2020-05-05 13:31 | Occupational Ther Daily Note ---
OT Current Status-Daily Note Subjective Pt alert, lying in bed. Pt delayed answering questions. Pt states she feels better than earlier today. Still increased rigidity note. Mental Status/Objective Patient Orientation: Person, Place, Time, Situation ADL-Treatment Therapy Code Descriptions/Definitions Functional [place] Measure: 0=Not Assessed/NA 4=Minimal Assistance 1=Total Assistance 5=Supervision or Setup 2=Maximal Assistance 6=Modified [place] 3=Moderate Assistance 7=Complete IndependenceSCALE: Activities may be completed with or without assistive devices. 1-Laacvtsjay-aowqzzc completes the activity by him/herself with no assistance from a helper. 5-Set-up or Clean-up Assistance-helper sets up or cleans up; patient completes activity. [place] assists only prior to or following the activity. 4-Supervision or Touching Assistance-helper provides verbal cues and/or touching/steadying and/or contact guard assistance as patient completes activi ty. Assistance may be provided throughout the activity or intermittently. 3-Partial/Moderate Assistance-helper does LESS THAN HALF the effort. [place] lifts, holds or supports trunk or limbs, but provides less than half the effort. 2-Substantial/Maximal Assistance-helper does MORE THAN HALF the effort. [place] lifts or holds trunk or limbs and provides more than half the effort. 5-Izcinegtx-tbgvjw does ALL the effort. Patient does none of the effort to complete the activity. Or, the assistance of 2 or more helpers is required for the patient to complete the activity. If activity was not attempted, code reason: 7-Patient Refused. 9-Not Applicable-not attempted and the patient did not perform the activity before the current illness, exacerbation or injury. 10-Not Attempted due to Environmental Limitations-(lack of equipment, weather restraints, etc.). 88-Not Attempted due to Medical Conditions or Safety Concerns. Toileting Hygiene (QC): 1 (incontinent of bowel and bladder) Other Treatment PT/OT cotreat ([id number]), skills of 2 clinicians required due to medical complexity, decreased mobility, dependent transfers and low activity tolerance. Assist x2 for bed mobility. Assist x2 for toileting hygiene. Assist x2 for lower body dressing. Assist x2 for transfers. After session, pt sitting in recliner with call light/phone in reach. All needs met in room. OT Short Term Goals Short Term Goals Time Frame: May 17, 2020 Eatin Oral hygiene: 3 Toileting hygiene: 2 Shower/bathe self: 2 Upper body dressin Lower body dressin Putting on/taking off footwear: 3 OT Cigar Machine Feeder Goals Senior Care Goals Time Frame: May 31, 2020 Eating (QC): 4 Oral Hygiene (QC): 4 Toileting Hygiene (QC): 3 Shower/Bathe Self (QC): 3 Upper Body Dressing (QC): 4 Lower Body Dressing (QC): 3 On/Off Footwear (QC): 3 Additional Goals: 1-Demonstrate ADL Tasks, 2-Verbalize Understanding, 3- ImproveStrength/Vinicius 1=Demonstrate adherence to instructed precautions during ADL tasks. 2=Patient will verbalize/demonstrate understanding of assistive devices/modifications for ADL. 3=Patient will improve strength/tolerance for activity to enable patient to perform ADL's. OT Education/Plan Discharge Recommendations Plan/Recommendations: Continue POC Treatment Plan/Plan of Care Patient would benefit from OT for education, treatment and training to promote independence in ADL's, mobility, safety and/or upper extremity function for ADL's. Plan of Care: ADL Retraining, Functional Mobility, UE Funct Exercise/Act Treatment Duration: May 31, 2020 Frequency: Modified Program (IRF) Estimated Hrs Per Day: Other (modified COVID waiver-60minutes/day) Agreement: Yes Rehab Potential: Fair Time/GCodes Start Time: 13:00 Stop Time: 13:20 Total Time Billed (hr/min): 20 Billed Treatment Time 1 visit-ADL 1 (20 min) co-treat with PT 20 min SHAWN VALERIO May 05, 2020 13:31
--- NOTE | 2020-05-05 13:47 | Speech Therapy Daily Note ---
Speech Daily Progress Note Subjective Date Seen by Provider: May 05, 2020 Time Seen by Provider: 00:30 Patient alert, laying in bed. Objective Patient demo answer to simple and y/n questions at 75% with moderate processing time and/or cues given. Assessment Assessment Current Status: Fair Progress Treatment Plan Continue Plan of Care Speech Short Term Goals Short Term Goals Short Term Goals 1) Patient will answer simple y/n questions with 80% given minimal cues. 2) Patient will demo completion of "fill in the blank" sentences at the initial level at 80% with minimal cues. 3) Patient will recall information at the 5 and 10 minute increments at 80% with minimal cues. Speech Borematic Machine Operator Goals Assisted Goals Patient will improve cognitive-communication necessary for safety and daily living tasks with minimal assist. Speech-Plan Patient/Family Goals Patient/Family Goals: Patient's discharge plan is unknown at this time. Treatment Plan Speech Therapy Treatment Plan: Continue Plan of Care Treatment Duration: May 12, 2020 Frequency: 4 times per week (Patient will receive skilled ST 4-5 times per week.) Estimated Hrs Per Day: .5 hour per day Rehab Potential: Fair Barriers to Learning: Patient's medical status Pt/Family Agrees to Plan: Yes Safety Risks/Education Teaching Recipient: Patient Teaching Methods: Demonstration, Discussion Response to Teaching: Verbalize Understanding, Return Demonstration, Reinforcement Needed Education Topics Provided: Safety and communication Time Speech Therapy Time In: 11:00 Speech Therapy Time Out: 11:30 Total Billed Time: 30 Billed Treatment Time [address] May 05, 2020 13:47
--- NOTE | 2020-05-05 13:49 | NUR ---
CM/SS CONCURRENT DOCUMENTATION Bedside visit with patient and her sister/DPRAFFI Mandujano. Nazia has met with [facility]/Alaina Castillo about a [employer] application, typewriter operator automatic assisted getting patient's signature with appropriate witnesses and Nazia will return to Alaina for processing Friday. Continue supportive role for discharge planning and acquiring appropriate resources depending of patient care level.
--- NOTE | 2020-05-05 13:51 | Physical Therapy Daily Note ---
PT Daily Note-Current Subjective Patient in bed pre tx, agrees to PT, has no complaints of pain, will be co- treating with OT due to poor patient mobility, strength, endurance, balance, whole body rigidity, the need to coordinate UE and LE during activity. Appearance Patient in recliner post tx with nurse call, phone,t ray, all needs met. Mental Status Patient Orientation: Person, Unable to Assess Transfers SCALE: Activities may be completed with or without assistive devices. 2-Jphwesrhjd-wfxmetu completes the activity by him/herself with no assistance from a helper. 5-Set-up or Clean-up Assistance-helper sets up or cleans up; patient completes activity. [place] assists only prior to or following the activity. 4-Supervision or Touching Assistance-helper provides verbal cues and/or touching/steadying and/or contact guard assistance as patient completes activity. Assistance may be provided throughout the activity or intermittently. 3-Partial/Moderate Assistance-helper does LESS THAN HALF the effort. [place] lifts, holds or supports trunk or limbs, but provides less than half the effort. 2-Substantial/Maximal Assistance-helper does MORE THAN HALF the effort. [place] lifts or holds trunk or limbs and provides more than half the effort. 6-Nvyfssimw-krtssb does ALL the effort. Patient does none of the effort to complete the activity. Or, the assistance of 2 or more helpers is required for the patient to complete the activity. If activity was not attempted, code reason: 7-Patient Refused. 9-Not Applicable-not attempted and the patient did not perform the activity before the current illness, exacerbation or injury. 10-Not Attempted due to Environmental Limitations-(lack of equipment, weather restraints, etc.). 88-Not Attempted due to Medical Conditions or Safety Concerns. Roll Left & Right (QC): 1 Lying to Sitting/Side of Bed(Q: 1 Sit to Stand (QC): 1 Chair/Mum-uw-Lngxu Xfer(QC): 1 Patient in bed, has had a BM in her brief, rolling to each side to clean and get new brief on, patient is not able to assist with this, sit patient on the side of the bed, she will not bend at the waist, therapist has to block legs so patient will not just slide off bed, transfer to recliner, patient is stiff as a board the whole time, transfer to recliner, patient cannot sit in the recliner with the back very far up or she will just slide out. The whole chair has to be mostly flat. Patient in recliner post tx with nurse call, phone, tray, sister in room. Weight Bearing Right Lower Extremity: Right Weight Bearing/Tolerated Left Lower Extremity: Left Weight Bearing/Tolerated Treatments rolling, bed mobility, transfer, toileting Assessment Current Status: Poor Progress no change in mobility, worse rigidity PT Short Term Goals Short Term Goals Time Frame: May 10, 2020 Roll Left & Right: 2 Sit to lyin Lying to sitting on side of be: 2 Sit to stand: 2 Chair/mmi-lg-hnwqb transfer: 2 PT Prison Goals Trans[place] Goals PT Trans[place] Goals Time Frame: May 24, 2020 Roll Left & Right (QC): 3 Sit to Lying (QC): 3 Lying-Sitting on Side/Bed(QC): 3 Sit to Stand (QC): 3 Chair/Yrk-dt-Yevur Xfer(QC): 3 Toilet Transfer (QC): 3 Car Transfer (QC): 3 Does the Patient Walk: No and Walking Goal IS indicated Walk 10 feet (QC): 3 Walk 50ft with 2 Turns (QC): 88 Walk 150 ft (QC): 88 Walking 10ft on Uneven Surface: 88 1 Step (curb) (QC): 88 4 Steps (QC): 88 12 Steps (QC): 88 Picking up an Object (QC): 88 Does the Pt use WC or Scooter?: Yes Wheel 50 feet with 2 turns (QC: 2 Wheel 150 feet: 88 PT Plan Problem List Problem List: Activity Tolerance, Functional Strength, Safety, Balance, Gait, Transfer, Bed Mobility, ROM Treatment/Plan Treatment Plan: Continue Plan of Care Treatment Plan: Bed Mobility, Education, Functional Activity Vinicius, Functional Strength, Group Therapy, Gait, Safety, Therapeutic Exercise, Transfers Treatment Duration: May 24, 2020 Frequency: covid wasue 60 min per day Estimated Hrs Per Day: 1.5 hours per day Patient and/or Family Agrees t: Yes Safety Risks/Education Patient Education: Transfer Techniques, Correct Positioning, Safety Issues Teaching Recipient: Patient Teaching Methods: Demonstration, Discussion Response to Teaching: Reinforcement Needed Time/GCodes Time In: 1300 Time Out: 1320 Total Billed Treatment Time: 20 Total Billed Treatment 1 visit FA 20' co-treated with OT for the whole ' MARIA G ARORA PT May 05, 2020 13:51
[2020-05-05 15:52] VITALS: BP 134/71
[2020-05-05] MEDS: ENOXAPARIN 30 MG/0.3 ML (LOVENOX) SYR SC SCH (16:39)
[2020-05-05] MEDS: PRIMIDONE 50 MG TAB (MYSOLINE) PO SCH (20:29)
[2020-05-05] MEDS: polyethylene glycoL POWDER 17 GM (MIRALAX) PACK PO SCH (20:30)
[2020-05-05 20:33] VITALS: BP 129/76
[2020-05-06 05:09] VITALS: BP 153/80
[2020-05-06 06:34] LABS: BUN/CREATININE RATIO 17; CALCIUM 9.2 MG/DL (8.5-10.1); CARBON DIOXIDE 20 MMOL/L (21-32); CHLORIDE 98 MMOL/L (98-107); CREATININE SERUM 0.54 MG/DL (0.60-1.30); GFR ESTIMATED > 60; GLUCOSE 87 MG/DL (70-105); POTASSIUM 3.8 MMOL/L (3.6-5.0); SODIUM 128 MMOL/L (135-145)
--- NOTE | 2020-05-06 08:20 | PM&R Progress Note ---
Subjective HPI/CC On Admission Date Seen by Provider: May 06, 2020 Time Seen by Provider: 12:15 Subjective/Events-last exam Patient "freezing up" per PT yesterday so started Amantadine and hopefully that will be beneficial and updated sister at the bedside on that change Bowels are moving well and last was yesterday UOP good No pain reported Cognition deficit noted and unsure if she will be able to return home with sister as previous Max assist Sodium level is 128 today and doing well Checked meds and labs Conferred with RN Reviewed therapy notes Review of Systems Musculoskeletal: back pain Neurological: Weakness, Numbness, Incoordination Objective Exam Vital Signs Vital Signs Date Time Temp Pulse Resp B/P (MAP) Pulse Ox O2 Delivery O2 Flow Rate FiO2 05/06/20 17:53 36.4 76 18 142/74 (96) 97 Room Air Capillary Refill : Less Than 3 Seconds General Appearance: No Apparent Distress, WD/WN, Chronically ill, Thin HEENT: PERRL/EOMI, Normal ENT Inspection, Pharynx Normal Neck: Normal Inspection, Non Tender, Supple, Carotid Bruit, Limited Range of Motion Respiratory: Chest Non Tender, Lungs Clear, No Accessory Muscle Use, No Respiratory Distress, Decreased Breath Sounds Cardiovascular: Regular Rate, Rhythm, No Edema, No Gallop, No JVD, No Murmur, Normal Peripheral Pulses Gastrointestinal: Normal Bowel Sounds, No Organomegaly, No Pulsatile Mass, Non Tender, Soft Back: Normal Inspection, No CVA Tenderness, No Vertebral Tenderness, Decreased Range of Motion, Other (scoliosis) Extremity: Normal Capillary Refill, Normal Inspection, Normal Range of Motion, Non Tender, No Calf Tenderness, No Pedal Edema Neurologic/Psychiatric: Alert, Oriented x3, Abnormal Gait, Depressed Affect, Motor Weakness (Severe Tremor, generalized weakness, ) Skin: Normal Color, Warm/Dry Lymphatic: No Adenopathy Results/Procedures Lab Laboratory Tests 05/06/20 05:52 Patient resulted labs reviewed. FIM Transfers Therapy Code Descriptions/Definitions Functional [place] Measure: 0=Not Assessed/NA 4=Minimal Assistance 1=Total Assistance 5=Supervision or Setup 2=Maximal Assistance 6=Modified [place] 3=Moderate Assistance 7=Complete IndependenceSCALE: Activities may be completed with or without assistive devices. 6-Opxzjgwxaj-iwfbeim completes the activity by him/herself with no assistance from a helper. 5-Set-up or Clean-up Assistance-helper sets up or cleans up; patient completes activity. [place] assists only prior to or following the activity. 4-Supervision or Touching Assistance-helper provides verbal cues and/or touching/steadying and/or contact guard assistance as patient completes activity. Assistance may be provided throughout the activity or intermittently. 3-Partial/Moderate Assistance-helper does LESS THAN HALF the effort. [place] lifts, holds or supports trunk or limbs, but provides less than half the effort. 2-Substantial/Maximal Assistance-helper does MORE THAN HALF the effort. [place] lifts or holds trunk or limbs and provides more than half the effort. 4-Odvfvqynq-avcwir does ALL the effort. Patient does none of the effort to complete the activity. Or, the assistance of 2 or more helpers is required for the patient to complete the activity. If activity was not attempted, code reason: 7-Patient Refused. 9-Not Applicable-not attempted and the patient did not perform the activity before the current illness, exacerbation or injury. 10-Not Attempted due to Environmental Limitations-(lack of equipment, weather restraints, etc.). 88-Not Attempted due to Medical Conditions or Safety Concerns. Roll Left to Right (QC): 1 Sit to Lying (QC): 1 Sit to Stand (QC): 1 Chair/Xmj-wn-Yozps Xfer(QC): 1 Car Transfer (QC): 1 Gait Training Walk 10 feet (QC): 88 Walk 50 ft with 2 Turns(QC): 88 Walk 150 ft (QC): 88 Walking 10ft/uneven surface-QC: 88 Wheelchair Training Wheel 50 ft with 2 turns (QC): 1 Wheel 150 ft (QC): 1 Stair Training 1 Step (curb) (QC): 88 4 Steps (QC): 88 12 Steps (QC): 88 Balance Picking up an Object (QC): 88 ADL-Treatment Eating (QC): 2 Oral Hygiene (QC): 7 Shower/Bathe Self (QC): 1 Upper Body Dressing (QC): 2 Lower Body Dressing (QC): 1 On/Off Footwear (QC): 1 Toileting Hygiene (QC): 1 (incontinent of bowel and bladder) Toilet Transfer (QC): 1 Assessment/Plan Assessment and Plan Assess & Plan/Chief Complaint Assessment: PD Hyponatremia due to SIADH Constipation Scoliosis Elevated AST Falls Cognitive deficit "Freezing up" episodes initiated on Amantadine Plan: Fluid restrict IRF protocol BM regimen Home meds Lovenox Amantadine (1) Parkinson disease Status: Chronic (2) Thrombocytosis Status: Resolved Resolution Date/Time: 05/03/20 @ 10:33 (3) Elevated AST (SGOT) Status: Acute (4) DVT prophylaxis Status: Acute (5) Frequent falls Status: Acute (6) Tremor Status: Chronic (7) Constipation Status: Acute (8) Scoliosis (9) Hyponatremia Status: Acute (10) Syncope Status: Acute HAYDER VALLES DO May 06, 2020 08:20
[2020-05-06] MEDS: SINEMET 25/100 (CARBIDOPA/LEVODOPA) TAB PO SCH ×3 (09:01→20:12)
[2020-05-06] MEDS: CALCIUM CARBONATE 600 MG (CALCARB) TAB PO SCH ×2 (09:01→17:48)
[2020-05-06] MEDS: DOCUSATE SODIUM 100 MG (COLACE) CAP PO SCH (09:01)
[2020-05-06] MEDS: amLODIPine 5 MG (NORVASC) TAB PO SCH (09:08)
[2020-05-06] MEDS: PROPRANOLOL 20 MG (INDERAL) TABLET PO SCH ×2 (09:08→20:11)
[2020-05-06] MEDS: VITAMIN D3 25 MCG (1,000 UNITS) TABLET PO SCH ×2 (09:08→20:11)
[2020-05-06] MEDS: FLUoxetine HCL 20 MG (PROzac) CAP PO SCH (09:08)
[2020-05-06] MEDS: SENNA W/DOCUSATE (SENOKOT S) TABLET PO SCH ×2 (09:09→20:11)
[2020-05-06] MEDS: SODIUM CHLORIDE 1 GM TABLET PO SCH ×2 (09:28→20:12)
[2020-05-06] MEDS: AMANTADINE 100 MG (SYMMETREL) CAP PO SCH ×2 (09:29→20:12)
--- NOTE | 2020-05-06 12:41 | Physical Therapy Daily Note ---
PT Daily Note-Current Subjective Pt up in recliner. Pt denied pain, reports she is comfortable. Mental Status Patient Orientation: Person Transfers SCALE: Activities may be completed with or without assistive devices. 0-Hxvoytphse-mypbykn completes the activity by him/herself with no assistance from a helper. 5-Set-up or Clean-up Assistance-helper sets up or cleans up; patient completes activity. [place] assists only prior to or following the activity. 4-Supervision or Touching Assistance-helper provides verbal cues and/or touc ellis/steadying and/or contact guard assistance as patient completes activity. Assistance may be provided throughout the activity or intermittently. 3-Partial/Moderate Assistance-helper does LESS THAN HALF the effort. [place] lifts, holds or supports trunk or limbs, but provides less than half the effort. 2-Substantial/Maximal Assistance-helper does MORE THAN HALF the effort. [place] lifts or holds trunk or limbs and provides more than half the effort. 1-Qucuxdcnc-ltjyxh does ALL the effort. Patient does none of the effort to complete the activity. Or, the assistance of 2 or more helpers is required for the patient to complete the activity. If activity was not attempted, code reason: 7-Patient Refused. 9-Not Applicable-not attempted and the patient did not perform the activity before the current illness, exacerbation or injury. 10-Not Attempted due to Environmental Limitations-(lack of equipment, weather restraints, etc.). 88-Not Attempted due to Medical Conditions or Safety Concerns. Weight Bearing Right Lower Extremity: Right Weight Bearing/Tolerated Left Lower Extremity: Left Weight Bearing/Tolerated Treatments Pt seen for LE PROM-AAROM all planes all joints x 20 each. Pt repositioned in recliner. Assessment Current Status: Fair Progress Pt josé well. Call light in hand, all needs met. Nurse present post therapy. PT Short Term Goals Short Term Goals Time Frame: May 10, 2020 Roll Left & Right: 2 Sit to lyin Lying to sitting on side of be: 2 Sit to stand: 2 Chair/hix-tq-uhjen transfer: 2 PT Assisted Goals Solution Consultant Goals PT Solution Consultant Goals Time Frame: May 24, 2020 Roll Left & Right (QC): 3 Sit to Lying (QC): 3 Lying-Sitting on Side/Bed(QC): 3 Sit to Stand (QC): 3 Chair/Zxg-wz-Yhbxf Xfer(QC): 3 Toilet Transfer (QC): 3 Car Transfer (QC): 3 Does the Patient Walk: No and Walking Goal IS indicated Walk 10 feet (QC): 3 Walk 50ft with 2 Turns (QC): 88 Walk 150 ft (QC): 88 Walking 10ft on Uneven Surface: 88 1 Step (curb) (QC): 88 4 Steps (QC): 88 12 Steps (QC): 88 Picking up an Object (QC): 88 Does the Pt use WC or Scooter?: Yes Wheel 50 feet with 2 turns (QC: 2 Wheel 150 feet: 88 PT Plan Treatment/Plan Treatment Plan: Continue Plan of Care Treatment Plan: Bed Mobility, Education, Functional Activity Vinicius, Functional Strength, Group Therapy, Gait, Safety, Therapeutic Exercise, Transfers Treatment Duration: May 24, 2020 Frequency: alen green 60 min per day Estimated Hrs Per Day: 1.5 hours per day Patient and/or Family Agrees t: Yes Time/GCodes Time In: 900 Time Out: 920 Total Billed Treatment Time: 20 Total Billed Treatment 1, ther ex x 20min HOLLAND WOODS CPTA May 06, 2020 12:41
[2020-05-06] MEDS: ENOXAPARIN 30 MG/0.3 ML (LOVENOX) SYR SC SCH (16:41)
[2020-05-06 17:53] VITALS: BP 142/74
[2020-05-06 20:07] VITALS: BP 117/72
[2020-05-06] MEDS: polyethylene glycoL POWDER 17 GM (MIRALAX) PACK PO SCH (20:11)
[2020-05-06] MEDS: PRIMIDONE 50 MG TAB (MYSOLINE) PO SCH (20:11)
[2020-05-07 05:00] VITALS: BP 137/78
[2020-05-07] MEDS: amLODIPine 5 MG (NORVASC) TAB PO SCH (08:29)
[2020-05-07] MEDS: SENNA W/DOCUSATE (SENOKOT S) TABLET PO SCH ×2 (08:29→20:03)
[2020-05-07] MEDS: CALCIUM CARBONATE 600 MG (CALCARB) TAB PO SCH ×2 (08:29→17:25)
[2020-05-07] MEDS: DOCUSATE SODIUM 100 MG (COLACE) CAP PO SCH (08:29)
[2020-05-07] MEDS: VITAMIN D3 25 MCG (1,000 UNITS) TABLET PO SCH ×2 (08:29→20:02)
[2020-05-07] MEDS: PROPRANOLOL 20 MG (INDERAL) TABLET PO SCH ×2 (08:29→20:03)
[2020-05-07] MEDS: SINEMET 25/100 (CARBIDOPA/LEVODOPA) TAB PO SCH ×3 (08:29→20:04)
[2020-05-07] MEDS: FLUoxetine HCL 20 MG (PROzac) CAP PO SCH (08:29)
[2020-05-07] MEDS: AMANTADINE 100 MG (SYMMETREL) CAP PO SCH ×2 (08:34→20:03)
[2020-05-07] MEDS: SODIUM CHLORIDE 1 GM TABLET PO SCH ×2 (08:34→20:03)
--- NOTE | 2020-05-07 10:35 | PM&R Progress Note ---
Subjective HPI/CC On Admission Date Seen by Provider: May 07, 2020 Time Seen by Provider: 12:30 Subjective/Events-last exam Amantadine tolerated well and seems to be really helping her Bowels are moving well but last 05/05/20 taking laxatives UOP good No pain reported Cognition deficit noted and unsure if she will be able to return home with sister as previous Max assist still Sodium level is 128 yesterday and doing well Feeder Checked meds and labs Conferred with RN Reviewed therapy notes Review of Systems General: Fatigue Neurological: Weakness, Numbness, Incoordination Objective Exam Vital Signs Vital Signs Date Time Temp Pulse Resp B/P (MAP) Pulse Ox O2 Delivery O2 Flow Rate FiO2 05/07/20 17:43 36.2 76 18 121/70 (87) 97 Room Air Capillary Refill : Less Than 3 Seconds General Appearance: No Apparent Distress, WD/WN, Chronically ill, Thin HEENT: PERRL/EOMI, Normal ENT Inspection, Pharynx Normal Neck: Normal Inspection, Non Tender, Supple, Carotid Bruit, Limited Range of Motion Respiratory: Chest Non Tender, Lungs Clear, No Accessory Muscle Use, No Respiratory Distress, Decreased Breath Sounds Cardiovascular: Regular Rate, Rhythm, No Edema, No Gallop, No JVD, No Murmur, Normal Peripheral Pulses Gastrointestinal: Normal Bowel Sounds, No Organomegaly, No Pulsatile Mass, Non Tender, Soft Back: Normal Inspection, No CVA Tenderness, No Vertebral Tenderness, Decreased Range of Motion, Other (scoliosis) Extremity: Normal Capillary Refill, Normal Inspection, Normal Range of Motion, Non Tender, No Calf Tenderness, No Pedal Edema Neurologic/Psychiatric: Alert, Oriented x3, Abnormal Gait, Depressed Affect, Motor Weakness (Severe Tremor, generalized weakness, ) Skin: Normal Color, Warm/Dry Lymphatic: No Adenopathy Results/Procedures Lab Patient resulted labs reviewed. FIM Transfers Therapy Code Descriptions/Definitions Functional [place] Measure: 0=Not Assessed/NA 4=Minimal Assistance 1=Total Assistance 5=Supervision or Setup 2=Maximal Assistance 6=Modified [place] 3=Moderate Assistance 7=Complete IndependenceSCALE: Activities may be completed with or without assistive devices. 6-Bwptnnuouk-verpsqt completes the activity by him/herself with no assistance from a helper. 5-Set-up or Clean-up Assistance-helper sets up or cleans up; patient completes activity. [place] assists only prior to or following the activity. 4-Supervision or Touching Assistance-helper provides verbal cues and/or touching/steadying and/or contact guard assistance as patient completes activity. Assistance may be provided throughout the activity or intermittently. 3-Partial/Moderate Assistance-helper does LESS THAN HALF the effort. [place] lifts, holds or supports trunk or limbs, but provides less than half the effort. 2-Substantial/Maximal Assistance-helper does MORE THAN HALF the effort. [place] lifts or holds trunk or limbs and provides more than half the effort. 6-Inpnqwkqf-dhavll does ALL the effort. Patient does none of the effort to c omplete the activity. Or, the assistance of 2 or more helpers is required for the patient to complete the activity. If activity was not attempted, code reason: 7-Patient Refused. 9-Not Applicable-not attempted and the patient did not perform the activity before the current illness, exacerbation or injury. 10-Not Attempted due to Environmental Limitations-(lack of equipment, weather restraints, etc.). 88-Not Attempted due to Medical Conditions or Safety Concerns. Roll Left to Right (QC): 1 Sit to Lying (QC): 1 Sit to Stand (QC): 1 Chair/Thp-yr-Xpefc Xfer(QC): 1 Car Transfer (QC): 1 Gait Training Walk 10 feet (QC): 88 Walk 50 ft with 2 Turns(QC): 88 Walk 150 ft (QC): 88 Walking 10ft/uneven surface-QC: 88 Wheelchair Training Wheel 50 ft with 2 turns (QC): 1 Wheel 150 ft (QC): 1 Stair Training 1 Step (curb) (QC): 88 4 Steps (QC): 88 12 Steps (QC): 88 Balance Picking up an Object (QC): 88 ADL-Treatment Eating (QC): 2 Oral Hygiene (QC): 7 Shower/Bathe Self (QC): 1 Upper Body Dressing (QC): 2 Lower Body Dressing (QC): 1 On/Off Footwear (QC): 1 Toileting Hygiene (QC): 1 (incontinent of bowel and bladder) Toilet Transfer (QC): 1 Assessment/Plan Assessment and Plan Assess & Plan/Chief Complaint Assessment: PD Hyponatremia due to SIADH Constipation periodic Scoliosis Elevated AST Falls Cognitive deficit "Freezing up" episodes initiated on Amantadine and seems to be responding Plan: Fluid restrict IRF protocol BM regimen Home meds Lovenox Amantadine (1) Parkinson disease Status: Chronic (2) Thrombocytosis Status: Resolved Resolution Date/Time: 05/03/20 @ 10:33 (3) Elevated AST (SGOT) Status: Acute (4) DVT prophylaxis Status: Acute (5) Frequent falls Status: Acute (6) Tremor Status: Chronic (7) Constipation Status: Acute (8) Scoliosis (9) Hyponatremia Status: Acute (10) Syncope Status: Acute HAYDER VALLES DO May 07, 2020 10:35
[2020-05-07] MEDS: ENOXAPARIN 30 MG/0.3 ML (LOVENOX) SYR SC SCH (15:58)
[2020-05-07 17:43] VITALS: BP 121/70
[2020-05-07] MEDS: PRIMIDONE 50 MG TAB (MYSOLINE) PO SCH (20:03)
[2020-05-07] MEDS: polyethylene glycoL POWDER 17 GM (MIRALAX) PACK PO SCH (20:03)
[2020-05-07 20:05] VITALS: BP 139/72
[2020-05-08 05:01] VITALS: BP 153/89
[2020-05-08 05:43] LABS: BASOPHILS # (AUTO) 0.1 10^3/uL (0.0-0.1); BASOPHILS % (AUTO) 1 % (0-10); EOSINOPHILS # (AUTO) 0.1 10^3/uL (0.0-0.3); EOSINOPHILS % (AUTO) 2 % (0-10); HEMATOCRIT 33 % (35-52); HEMOGLOBIN 10.9 G/DL (11.5-16.0); LYMPHOCYTES # (AUTO) 1.1 X 10^3 (1.0-4.0); LYMPHOCYTES % (AUTO) 27 % (12-44); MEAN CORPUSCULAR HEMOGLOBIN 28 PG (25-34); MEAN CORPUSCULAR HGB CONC 33 G/DL (32-36); MEAN CORPUSCULAR VOLUME 83 FL (80-99); MEAN PLATELET VOLUME 8.1 FL (7.4-10.4); MONOCYTES # (AUTO) 0.6 X 10^3 (0.0-1.0); MONOCYTES % (AUTO) 13 % (0-12); NEUTROPHILS # (AUTO) 2.5 X 10^3 (1.8-7.8); NEUTROPHILS % (AUTO) 57 % (42-75); PLATELET COUNT 451 10^3/uL (130-400); RED CELL DISTRIBUTION WIDTH 14.5 % (10.0-14.5); WHITE BLOOD COUNT 4.3 10^3/uL (4.3-11.0)
[2020-05-08 06:01] LABS: ALBUMIN 3.8 GM/DL (3.2-4.5); CHLORIDE 96 MMOL/L (98-107); POTASSIUM 4.1 MMOL/L (3.6-5.0); SODIUM 128 MMOL/L (135-145)
[2020-05-08 06:02] LABS: CALCIUM 9.5 MG/DL (8.5-10.1)
[2020-05-08 06:03] LABS: GLUCOSE 89 MG/DL (70-105); TOTAL PROTEIN 7.3 GM/DL (6.4-8.2)
[2020-05-08 06:04] LABS: CARBON DIOXIDE 20 MMOL/L (21-32)
[2020-05-08 06:05] LABS: BILIRUBIN,TOTAL 0.3 MG/DL (0.1-1.0)
[2020-05-08 06:07] LABS: ALKALINE PHOSPHATASE 56 U/L (40-136); GFR ESTIMATED > 60
[2020-05-08 06:08] LABS: BUN/CREATININE RATIO 17
[2020-05-08 06:10] LABS: ALANINE AMINOTRANSFERASE 27 U/L (0-55)
[2020-05-08 08:30] VITALS: BP 113/65
[2020-05-08] MEDS: amLODIPine 5 MG (NORVASC) TAB PO SCH (08:48)
[2020-05-08] MEDS: SENNA W/DOCUSATE (SENOKOT S) TABLET PO SCH ×2 (08:48→20:33)
[2020-05-08] MEDS: PROPRANOLOL 20 MG (INDERAL) TABLET PO SCH ×2 (08:49→20:32)
[2020-05-08] MEDS: FLUoxetine HCL 20 MG (PROzac) CAP PO SCH (08:49)
[2020-05-08] MEDS: DOCUSATE SODIUM 100 MG (COLACE) CAP PO SCH (08:49)
[2020-05-08] MEDS: CALCIUM CARBONATE 600 MG (CALCARB) TAB PO SCH ×2 (08:49→17:06)
[2020-05-08] MEDS: VITAMIN D3 25 MCG (1,000 UNITS) TABLET PO SCH ×2 (08:49→20:32)
[2020-05-08] MEDS: SODIUM CHLORIDE 1 GM TABLET PO SCH ×2 (08:50→20:33)
[2020-05-08] MEDS: AMANTADINE 100 MG (SYMMETREL) CAP PO SCH ×2 (08:50→20:34)
[2020-05-08] MEDS: SINEMET 25/100 (CARBIDOPA/LEVODOPA) TAB PO SCH ×3 (08:50→20:35)
--- NOTE | 2020-05-08 10:05 | Physical Therapy Daily Note ---
PT Daily Note-Current Subjective Pt in recliner upon arrival, pt agrees to rx. Pt stated recliner felt good in laying position. Pt agrees this is worst exacerbation that she's ever had. Pain Location: No Pain Reported Appearance Noted nystagmus during head rotation. Mental Status Patient Orientation: Person, Place Attachments: Other-See Comments (Adan weber) Transfers SCALE: Activities may be completed with or without assistive devices. 1-Duikyajtbq-ijclhtd completes the activity by him/herself with no assistance from a helper. 5-Set-up or Clean-up Assistance-helper sets up or cleans up; patient completes activity. [place] assists only prior to or following the activity. 4-Supervision or Touching Assistance-helper provides verbal cues and/or touching/steadying and/or contact guard assistance as patient completes acti vity. Assistance may be provided throughout the activity or intermittently. 3-Partial/Moderate Assistance-helper does LESS THAN HALF the effort. [place] lifts, holds or supports trunk or limbs, but provides less than half the effort. 2-Substantial/Maximal Assistance-helper does MORE THAN HALF the effort. [place] lifts or holds trunk or limbs and provides more than half the effort. 9-Fsuzpkhbe-chdfro does ALL the effort. Patient does none of the effort to complete the activity. Or, the assistance of 2 or more helpers is required for the patient to complete the activity. If activity was not attempted, code reason: 7-Patient Refused. 9-Not Applicable-not attempted and the patient did not perform the activity before the current illness, exacerbation or injury. 10-Not Attempted due to Environmental Limitations-(lack of equipment, weather restraints, etc.). 88-Not Attempted due to Medical Conditions or Safety Concerns. Sit to Stand (QC): 1 Total assist x2 peopel for sit to stand x2 trials. Pt in extreme PF and inversion of ankles. Very little WB through forefoot. Weight Bearing Right Lower Extremity: Right Weight Bearing/Tolerated Left Lower Extremity: Left Weight Bearing/Tolerated Gait Training Does the Patient Walk?: No and Walking Goal NOT indicated Wheelchair Training Does the Pt Use a Wheelchair?: No Exercises Supine Ex: Ankle pumps (Heel cord stretches 4x 20 seconds, pt unable to perform neutral position. ), Heel Slides, Short Arc Quads Supine Reps: 15 Treatments Pt performed supine exercises in recliner, needed active assist and many VC. Pt performed some mass extension w LE utilizing gravity elimination by positioning of lift recline chair into slight trendelenburg. Alternating reciprocating Shoulder flexion utilizing therapist on each side, LE heel slides w assistance for stimulated bicycle. Pt required passive/ active assisted for all activities. Pt positioned in hook lying, performed lateral trunk rolling, with therapist rolling knees and another assisting with head for alternating reciprocation. Pt performed sit to stand maxA x2 for 30 seconds x2. Pt demonstrated use of call light. Pt left in recliner with all needs met. Assessment Current Status: Good Progress Pt required active assist for all exercises, and Max assist x2 for standing. Pt max dependent for mobility, constant tremors, extreme delay in response, however overall pleasant and attempts to communicate. PT Short Term Goals Short Term Goals Time Frame: May 10, 2020 Roll Left & Right: 2 Sit to lyin Lying to sitting on side of be: 2 Sit to stand: 2 Chair/kcs-du-fmzed transfer: 2 PT Pick Up Truck Driver Goals Pick Up Truck Driver Goals PT Skilled Nursing Goals Time Frame: May 24, 2020 Roll Left & Right (QC): 3 Sit to Lying (QC): 3 Lying-Sitting on Side/Bed(QC): 3 Sit to Stand (QC): 3 Chair/Xcz-at-Hwoow Xfer(QC): 3 Toilet Transfer (QC): 3 Car Transfer (QC): 3 Does the Patient Walk: No and Walking Goal IS indicated Walk 10 feet (QC): 3 Walk 50ft with 2 Turns (QC): 88 Walk 150 ft (QC): 88 Walking 10ft on Uneven Surface: 88 1 Step (curb) (QC): 88 4 Steps (QC): 88 12 Steps (QC): 88 Picking up an Object (QC): 88 Does the Pt use WC or Scooter?: Yes Wheel 50 feet with 2 turns (QC: 2 Wheel 150 feet: 88 PT Plan Problem List Problem List: Activity Tolerance, Functional Strength, Balance, Bed Mobility Treatment/Plan Treatment Plan: Continue Plan of Care Treatment Plan: Bed Mobility, Education, Functional Activity Vinicius, Functional Strength, Group Therapy, Gait, Safety, Therapeutic Exercise, Transfers Treatment Duration: May 24, 2020 Frequency: covid waiver 60 min per day Estimated Hrs Per Day: 1.5 hours per day Patient and/or Family Agrees t: Yes Safety Risks/Education Patient Education: Correct Positioning, Disease Process, Safety Issues Teaching Recipient: Patient, Family Teaching Methods: Demonstration, Discussion Response to Teaching: Return Demonstration, Reinforcement Needed Sister/ Caregiver present and informed about rx process. Sister expresses desire of gait belt for home use, this was dispensed. Time/GCodes Time In: 900 Time Out: 1000 Total Billed Treatment Time: 60 Total Billed Treatment 1, Ex x3 (45m), FA (15m) KERA CHAVIS INTERLOCKING TOWER OPERATOR May 08, 2020 10:05
--- NOTE | 2020-05-08 10:11 | PM&R Progress Note ---
Subjective HPI/CC On Admission Date Seen by Provider: May 08, 2020 Time Seen by Provider: 10:30 Subjective/Events-last exam Sodium level is 128 Drinking Gatorade Suppository fleets and soap suds will be ordered due to severe constipation Sister at the bedside Participating in all therapy Appears to be more alert Checked meds and labs Conferred with RN Reviewed therapy notes Review of Systems General: Fatigue Neurological: Weakness, Confusion Objective Exam Vital Signs Vital Signs Date Time Temp Pulse Resp B/P (MAP) Pulse Ox O2 Delivery O2 Flow Rate FiO2 05/08/20 16:00 36.5 76 14 112/68 (83) 99 Room Air Capillary Refill : Less Than 3 Seconds General Appearance: No Apparent Distress, WD/WN, Chronically ill, Thin HEENT: PERRL/EOMI, Normal ENT Inspection, Pharynx Normal Neck: Normal Inspection, Non Tender, Supple, Carotid Bruit, Limited Range of Motion Respiratory: Chest Non Tender, Lungs Clear, No Accessory Muscle Use, No Respiratory Distress, Decreased Breath Sounds Cardiovascular: Regular Rate, Rhythm, No Edema, No Gallop, No JVD, No Murmur, Normal Peripheral Pulses Gastrointestinal: Normal Bowel Sounds, No Organomegaly, No Pulsatile Mass, Non Tender, Soft Back: Normal Inspection, No CVA Tenderness, No Vertebral Tenderness, Decreased Range of Motion, Other (scoliosis) Extremity: Normal Capillary Refill, Normal Inspection, Normal Range of Motion, Non Tender, No Calf Tenderness, No Pedal Edema Neurologic/Psychiatric: Alert, Oriented x3, Abnormal Gait, Depressed Affect, Motor Weakness (Severe Tremor, generalized weakness, ) Skin: Normal Color, Warm/Dry Lymphatic: No Adenopathy Results/Procedures Lab Laboratory Tests 05/08/20 05:32 Patient resulted labs reviewed. FIM Transfers Therapy Code Descriptions/Definitions Functional [place] Measure: 0=Not Assessed/NA 4=Minimal Assistance 1=Total Assistance 5=Supervision or Setup 2=Maximal Assistance 6=Modified [place] 3=Moderate Assistance 7=Complete IndependenceSCALE: Activities may be completed with or without assistive devices. 2-Jgfbwazhic-vejpnrl completes the activity by him/herself with no assistance from a helper. 5-Set-up or Clean-up Assistance-helper sets up or cleans up; patient completes activity. [place] assists only prior to or following the activity. 4-Supervision or Touching Assistance-helper provides verbal cues and/or touching/steadying and/or contact guard assistance as patient completes activity. Assistance may be provided throughout the activity or intermittently. 3-Partial/Moderate Assistance-helper does LESS THAN HALF the effort. [place] lifts, holds or supports trunk or limbs, but provides less than half the effort. 2-Substantial/Maximal Assistance-helper does MORE THAN HALF the effort. [place] lifts or holds trunk or limbs and provides more than half the effort. 4-Yzcfstvui-yljgzf does ALL the effort. Patient does none of the effort to complete the activity. Or, the assistance of 2 or more helpers is required for the patient to complete the activity. If activity was not attempted, code reason: 7-Patient Refused. 9-Not Applicable-not attempted and the patient did not perform the activity before the current illness, exacerbation or injury. 10-Not Attempted due to Environmental Limitations-(lack of equipment, weather restraints, etc.). 88-Not Attempted due to Medical Conditions or Safety Concerns. Roll Left to Right (QC): 1 Sit to Lying (QC): 1 Sit to Stand (QC): 1 Chair/Xfz-lc-Boouj Xfer(QC): 1 Car Transfer (QC): 1 Gait Training Walk 10 feet (QC): 88 Walk 50 ft with 2 Turns(QC): 88 Walk 150 ft (QC): 88 Walking 10ft/uneven surface-QC: 88 Wheelchair Training Wheel 50 ft with 2 turns (QC): 1 Wheel 150 ft (QC): 1 Stair Training 1 Step (curb) (QC): 88 4 Steps (QC): 88 12 Steps (QC): 88 Balance Picking up an Object (QC): 88 ADL-Treatment Eating (QC): 2 Oral Hygiene (QC): 7 Shower/Bathe Self (QC): 1 Upper Body Dressing (QC): 2 Lower Body Dressing (QC): 1 On/Off Footwear (QC): 1 Toileting Hygiene (QC): 1 (incontinent of bowel and bladder) Toilet Transfer (QC): 1 Assessment/Plan Assessment and Plan Assess & Plan/Chief Complaint Assessment: PD Hyponatremia due to SIADH Constipation periodic Scoliosis Elevated AST Falls Cognitive deficit "Freezing up" episodes initiated on Amantadine and seems to be responding Plan: Fluid restrict IRF protocol BM regimen Home meds Lovenox Amantadine (1) Parkinson disease Status: Chronic (2) Thrombocytosis Status: Resolved Resolution Date/Time: 05/03/20 @ 10:33 (3) Elevated AST (SGOT) Status: Acute (4) DVT prophylaxis Status: Acute (5) Frequent falls Status: Acute (6) Tremor Status: Chronic (7) Constipation Status: Acute (8) Scoliosis (9) Hyponatremia Status: Acute (10) Syncope Status: Acute HAYDER VALLES DO May 08, 2020 10:11
--- NOTE | 2020-05-08 13:13 | NUR ---
CM/SS CONCURRENT DOCUMENTATION Observed patient participating in therapy session in gym. Spoke with sister Nazia, she updates that [facility] Castillo has requested [facility] PCP sign off on a request to expedite the [employer] application on patient's behalf. This should be submitted momentarily and hopefully a waiver for [employer] in-home services will be approved. [employer] Burner contacted [facility], confirmed the application request is for [employer]. This would allow patient to return home with staff hours or enter an assisted living facility if she recovers to meet that criteria. Patient may be most appropriate for a community SNF upon discharge from [facility], all to be determined. With Medicare insurance, she would have 20 days full benefit allowing more time for the [employer] process to cycle and complete.
--- NOTE | 2020-05-08 13:26 | Occupational Ther Daily Note ---
OT Current Status-Daily Note Subjective No pain reported. Appearance Pt. in room in reclining chair. Pt. more verbal this a.m. than at last session with this OT, (4 days prior.) Pt. smiles when OT enters room. Pt's sister present. Mental Status/Objective Patient Orientation: Person, Place ADL-Treatment Therapy Code Descriptions/Definitions Functional [place] Measure: 0=Not Assessed/NA 4=Minimal Assistance 1=Total Assistance 5=Supervision or Setup 2=Maximal Assistance 6=Modified [place] 3=Moderate Assistance 7=Complete IndependenceSCALE: Activities may be completed with or without assistive devices. 6-Vctifhlelw-tdqrjhy completes the activity by him/herself with no assistance from a helper. 5-Set-up or Clean-up Assistance-helper sets up or cleans up; patient completes activity. [place] assists only prior to or following the activity. 4-Supervision or Touching Assistance-helper provides verbal cues and/or touching/steadying and/or contact guard assistance as patient completes activity. Assistance may be provided throughout the activity or intermittently. 3-Partial/Moderate Assistance-helper does LESS THAN HALF the effort. [place] lifts, holds or supports trunk or limbs, but provides less than half the effort. 2-Substantial/Maximal Assistance-helper does MORE THAN HALF the effort. [place] lifts or holds trunk or limbs and provides more than half the effort. 7-Wybmnqcot-hvnmbd does ALL the effort. Patient does none of the effort to complete the activity. Or, the assistance of 2 or more helpers is required for the patient to complete the activity. If activity was not attempted, code reason: 7-Patient Refused. 9-Not Applicable-not attempted and the patient did not perform the activity before the current illness, exacerbation or injury. 10-Not Attempted due to Environmental Limitations-(lack of equipment, weather restraints, etc.). 88-Not Attempted due to Medical Conditions or Safety Concerns. Eating (QC): 2 (Sister reports that pt. requires max assist to eat. She did report that pt. seems to tolerate foam built up handle better than universal cuff.) Shower/Bathe Self (QC): 7 (Pt. declines showering stating that she showered y .) Upper Body Dressing (QC): 2 (OT assists pt. with doffing/donning shirt. OT begins task and encourages pt. to chain/sequence the next step. Pt. able to doff shirt off right arm, and able to assist with donning over head. OT completed each task for her.) Lower Body Dressing (QC): 1 (OT donned pants and brief over feet, and required assistance of another person to don over hips while OT assists pt. in stance.) Toileting Hygiene (QC): 1 (Pt. incontinent of bowel and bladder. Dependent for clean up.) Other Treatment After ADLs, pt. transferred from reclining chair to wheelchair with max assist. Max assist and cues needed to flex at hips, position feet, and complete the transfer. Noted increased extensor tone with movement. Pt. taken to therapy gym via wheelchair. OT donned 1 lb. wrist weights to assist with tremors. Tremors still very present. OT educated pt. and sister on closed chain method of decreasing tremors while attempting to perform functional task. Pt. also worked on forward trunk flexion, positioning self in wheelchair, and UE AROM exercises. Pt. fatigued easily and required cues to continue participating. OT provided step under feet while in chair for better positioning. Noted external rotation and plantar flexion in bilateral feet, which is unable to be corrected during transfers. OT able to bring pt. to neutral position at hips, but unable to flex forward past 90 degrees. Pt. encouraged to attempt self propulsion in wheelchair to go back to room, but pt. unable to do so. Taken to room and transferred back to reclining chair with max assist. All needs met in room. Education OT Patient Education: Correct positioning, Exercise program, Modified ADL techniques, Progress toward Goal/Update tx plan, Purpose of tx/functional activities, Reviewed precautions, Rehab process, Transfer techniques Teaching Recipient: Patient Teaching Methods: Demonstration, Discussion Response to Teaching: Verbalize Understanding, Return Demonstration OT Short Term Goals Short Term Goals Time Frame: May 17, 2020 Eatin Oral hygiene: 3 Toileting hygiene: 2 Shower/bathe self: 2 Upper body dressin Lower body dressin Putting on/taking off footwear: 3 OT Fdc Goals Employment Program Representative Goals Time Frame: May 31, 2020 Eating (QC): 4 Oral Hygiene (QC): 4 Toileting Hygiene (QC): 3 Shower/Bathe Self (QC): 3 Upper Body Dressing (QC): 4 Lower Body Dressing (QC): 3 On/Off Footwear (QC): 3 Additional Goals: 1-Demonstrate ADL Tasks, 2-Verbalize Understanding, 3- ImproveStrength/Vinicius 1=Demonstrate adherence to instructed precautions during ADL tasks. 2=Patient will verbalize/demonstrate understanding of assistive devices/modifications for ADL. 3=Patient will improve strength/tolerance for activity to enable patient to perform ADL's. OT Education/Plan Problem List/Assessment Assessment: Decreased Activ Tolerance, Decreased UE Strength, Dependent Transfers, Impaired Bed Mobility, Impaired Funct Balance, Impaired I ADL's, Impaired Self-Care Skills, Restricted Funct UE ROM Discharge Recommendations Plan/Recommendations: Continue POC Therapy Discharge Recommendati: 24 Hour Supervision Treatment Plan/Plan of Care Treatment,Training & Education: Yes Patient would benefit from OT for education, treatment and training to promote independence in ADL's, mobility, safety and/or upper extremity function for ADL's. Plan of Care: ADL Retraining, Functional Mobility, UE Funct Exercise/Act Treatment Duration: May 31, 2020 Frequency: Modified Program (IRF) Estimated Hrs Per Day: Other (modified COVID waiver-60minutes/day) Agreement: Yes Rehab Potential: Fair Time/GCodes Start Time: 10:00 Stop Time: 11:00 Total Time Billed (hr/min): 60 Billed Treatment Time 1, ADL x 30minutes, FA x 30minutes ALTON MARKS OT May 08, 2020 13:26
--- NOTE | 2020-05-08 13:34 | Physical Therapy Daily Note ---
PT Daily Note-Current Subjective Pt. expresses she is too fatigued for further Rx this PM. Pt. in bed with call ty and demonstrates she can use this Transfers SCALE: Activities may be completed with or without assistive devices. 0-Mzjpeezweg-lsrtqxi completes the activity by him/herself with no assistance from a helper. 5-Set-up or Clean-up Assistance-helper sets up or cleans up; patient completes activity. [place] assists only prior to or following the activity. 4-Supervision or Touching Assistance-helper provides verbal cues and/or touching/steadying and/or contact guard assistance as patient completes activity. Assistance may be provided throughout the activity or intermittently. 3-Partial/Moderate Assistance-helper does LESS THAN HALF the effort. [place] lifts, holds or supports trunk or limbs, but provides less than half the effort. 2-Substantial/Maximal Assistance-helper does MORE THAN HALF the effort. [place] lifts or holds trunk or limbs and provides more than half the effort. 5-Cqmevgyxl-hrirju does ALL the effort. Patient does none of the effort to complete the activity. Or, the assistance of 2 or more helpers is required for the patient to complete the activity. If activity was not attempted, code reason: 7-Patient Refused. 9-Not Applicable-not attempted and the patient did not perform the activity before the current illness, exacerbation or injury. 10-Not Attempted due to Environmental Limitations-(lack of equipment, weather restraints, etc.). 88-Not Attempted due to Medical Conditions or Safety Concerns. Weight Bearing Right Lower Extremity: Right Weight Bearing/Tolerated Left Lower Extremity: Left Weight Bearing/Tolerated Assessment Current Status: No Treatment/Other Tests pt. with poor activity tolerance, easily fatigued, no Rx this PM. PT Short Term Goals Short Term Goals Time Frame: May 10, 2020 Roll Left & Right: 2 Sit to lyin Lying to sitting on side of be: 2 Sit to stand: 2 Chair/gis-jv-tdxaw transfer: 2 PT Batch Plant Operator Goals Batch Plant Operator Goals PT [facility] Goals Time Frame: May 24, 2020 Roll Left & Right (QC): 3 Sit to Lying (QC): 3 Lying-Sitting on Side/Bed(QC): 3 Sit to Stand (QC): 3 Chair/Ikh-qh-Hterd Xfer(QC): 3 Toilet Transfer (QC): 3 Car Transfer (QC): 3 Does the Patient Walk: No and Walking Goal IS indicated Walk 10 feet (QC): 3 Walk 50ft with 2 Turns (QC): 88 Walk 150 ft (QC): 88 Walking 10ft on Uneven Surface: 88 1 Step (curb) (QC): 88 4 Steps (QC): 88 12 Steps (QC): 88 Picking up an Object (QC): 88 Does the Pt use WC or Scooter?: Yes Wheel 50 feet with 2 turns (QC: 2 Wheel 150 feet: 88 PT Plan Treatment/Plan Treatment Plan: Continue Plan of Care (as tolerated) Treatment Plan: Bed Mobility, Education, Functional Activity Vinicius, Functional Strength, Group Therapy, Gait, Safety, Therapeutic Exercise, Transfers Treatment Duration: May 24, 2020 Frequency: alen green 60 min per day Estimated Hrs Per Day: 1.5 hours per day Patient and/or Family Agrees t: Yes Time/GCodes Time In: 1330 Time Out: 1333 Total Billed Treatment Time: 0 Total Billed Treatment noRx, KERA Wylie TRANSMISSION ASSEMBLER May 08, 2020 13:34
--- NOTE | 2020-05-08 14:01 | Speech Therapy Daily Note ---
Speech Daily Progress Note Subjective Date Seen by Provider: May 08, 2020 Time Seen by Provider: 00:30 Patient was sitting up in her recliner following her OT session. Her sister was present the entire session. Objective Patient completed a series of general fill in the blank sentences with 80% given minimal to moderate cues and/or repetitions. Assessment Assessment Current Status: Good Progress Treatment Plan Continue Plan of Care Speech Short Term Goals Short Term Goals Short Term Goals 1) Patient will answer simple y/n questions with 80% given minimal cues. 2) Patient will demo completion of "fill in the blank" sentences at the initial level at 80% with minimal cues. 3) Patient will recall information at the 5 and 10 minute increments at 80% with minimal cues. Speech Residential Goals Quality Facilitator Goals Patient will improve cognitive-communication necessary for safety and daily living tasks with minimal assist. Speech-Plan Patient/Family Goals Patient/Family Goals: Patient will return home with sister's support. Treatment Plan Speech Therapy Treatment Plan: Continue Plan of Care Patient demo increased alert and participation. Treatment Duration: May 12, 2020 Frequency: 4 times per week (Patient will receive skilled ST 4-5 times per week.) Estimated Hrs Per Day: .5 hour per day Rehab Potential: Fair Barriers to Learning: Patient's medical status Pt/Family Agrees to Plan: Yes Safety Risks/Education Teaching Recipient: Patient Teaching Methods: Demonstration, Discussion Response to Teaching: Verbalize Understanding, Return Demonstration Education Topics Provided: Continued communication upon her return home Time Speech Therapy Time In: 11:00 Speech Therapy Time Out: 11:30 Total Billed Time: 30 Billed Treatment Time [address] May 08, 2020 14:01
[2020-05-08 16:00] VITALS: BP 112/68
[2020-05-08] MEDS: ENOXAPARIN 30 MG/0.3 ML (LOVENOX) SYR SC SCH (17:00)
--- NOTE | 2020-05-08 19:08 | NUR ---
bedside report received from MINNIE JC, assume care of pt
--- NOTE | 2020-05-08 20:25 | NUR ---
pt had moderate soft brown stool incontinent.
[2020-05-08] MEDS: PRIMIDONE 50 MG TAB (MYSOLINE) PO SCH (20:32)
--- NOTE | 2020-05-08 20:33 | NUR ---
pt given Senokot but refused miralax, as she just had stool
[2020-05-08] MEDS: polyethylene glycoL POWDER 17 GM (MIRALAX) PACK PO SCH (20:44)
[2020-05-09 05:40] VITALS: BP 130/77
[2020-05-09] MEDS: PROPRANOLOL 20 MG (INDERAL) TABLET PO SCH ×2 (08:48→21:09)
[2020-05-09] MEDS: SENNA W/DOCUSATE (SENOKOT S) TABLET PO SCH ×2 (08:48→21:17)
[2020-05-09] MEDS: VITAMIN D3 25 MCG (1,000 UNITS) TABLET PO SCH ×2 (08:48→21:09)
[2020-05-09] MEDS: DOCUSATE SODIUM 100 MG (COLACE) CAP PO SCH (08:48)
[2020-05-09] MEDS: CALCIUM CARBONATE 600 MG (CALCARB) TAB PO SCH ×2 (08:48→18:36)
[2020-05-09] MEDS: FLUoxetine HCL 20 MG (PROzac) CAP PO SCH (08:49)
[2020-05-09] MEDS: amLODIPine 5 MG (NORVASC) TAB PO SCH (08:49)
[2020-05-09] MEDS: AMANTADINE 100 MG (SYMMETREL) CAP PO SCH ×2 (08:49→21:11)
[2020-05-09] MEDS: SODIUM CHLORIDE 1 GM TABLET PO SCH ×2 (08:49→21:10)
[2020-05-09] MEDS: SINEMET 25/100 (CARBIDOPA/LEVODOPA) TAB PO SCH ×3 (08:50→21:10)
--- NOTE | 2020-05-09 10:14 | Occupational Ther Daily Note ---
OT Current Status-Daily Note Subjective No pain reported. Appearance Pt. up in chair this date. More alert and oriented. Greeted OT when OT entered room. Mental Status/Objective Patient Orientation: Person, Place ADL-Treatment Therapy Code Descriptions/Definitions Functional [place] Measure: 0=Not Assessed/NA 4=Minimal Assistance 1=Total Assistance 5=Supervision or Setup 2=Maximal Assistance 6=Modified [place] 3=Moderate Assistance 7=Complete IndependenceSCALE: Activities may be completed with or without assistive devices. 5-Dyjadhwmcd-crigkbf completes the activity by him/herself with no assistance from a helper. 5-Set-up or Clean-up Assistance-helper sets up or cleans up; patient completes activity. [place] assists only prior to or following the activity. 4-Supervision or Touching Assistance-helper provides verbal cues and/or touching/steadying and/or contact guard assistance as patient completes activity. Assistance may be provided throughout the activity or intermittently. 3-Partial/Moderate Assistance-helper does LESS THAN HALF the effort. [place] lifts, holds or supports trunk or limbs, but provides less than half the effort. 2-Substantial/Maximal Assistance-helper does MORE THAN HALF the effort. [place] lifts or holds trunk or limbs and provides more than half the effort. 3-Jfkhysxfq-ptfvva does ALL the effort. Patient does none of the effort to complete the activity. Or, the assistance of 2 or more helpers is required for the patient to complete the activity. If activity was not attempted, code reason: 7-Patient Refused. 9-Not Applicable-not attempted and the patient did not perform the activity before the current illness, exacerbation or injury. 10-Not Attempted due to Environmental Limitations-(lack of equipment, weather restraints, etc.). 88-Not Attempted due to Medical Conditions or Safety Concerns. Eating (QC): 2 (Max per nursing.) Oral Hygiene (QC): 7 (Pt. declined putting dentures in.) Shower/Bathe Self (QC): 1 (Pt. is able to wash chest and left UE. Requires assistance for all other parts. Pt. requires assist of one to stand, and assist of another to cleanse [place] area thoroughly.) Upper Body Dressing (QC): 2 (Pt. able to engage more this date in assisting with doffing/donning shirt. Pt. overall still requires max assist, but is able to thread arms into shirt.) Lower Body Dressing (QC): 1 On/Off Footwear: 1 Toileting Hygiene (QC): 1 (Pt. incontinent of urine in brief. OT asks if she needs to use BSC and she does. Pt. is able to urinate and have BM once on commode.) Toilet Transfer (QC): 1 Other Treatment Pt. in reclining chair when OT entered room. Pt. agrees to sponge bathe and dress this date. OT educates pt. that she will have more opportunity in chair to assist with dressing vs. shower chair. Pt. verbalizes understanding. OT gives pt. cue with each task, and time to respond. Initiation difficult for pt. and OT finishes task for her. OT assists with bathing/dressing. Noted that pt. has extensor tone and "slides" toward edge of chair. Requires max assist multiple times to reposition in chair for safety. Pt. requires max/dependent assist to transfer to BSC. After toileting, pt. is cleansed and returns to chair. OT facilitates eating task with pt. Pt. not hungry, but attempts to simulate feeding self. OT gives pt. weighted spoon. Pt. attempts to "dip" spoon into bowl and bring to mouth. Increased tremors noted whenever pt. is concentrating on task, such as feeding or brushing hair. Pt. up in chair with warm blanket at end of session. PT to come in. All needs met. Education OT Patient Education: Correct positioning, Modified ADL techniques, Progress toward Goal/Update tx plan, Purpose of tx/functional activities, Reviewed precautions, Rehab process, Transfer techniques Teaching Recipient: Patient Teaching Methods: Demonstration, Discussion Response to Teaching: Verbalize Understanding, Return Demonstration, Reinforcement Needed OT Short Term Goals Short Term Goals Time Frame: May 17, 2020 Eatin Oral hygiene: 3 Toileting hygiene: 2 Shower/bathe self: 2 Upper body dressin Lower body dressin Putting on/taking off footwear: 3 OT Chair Installer Goals Chair Installer Goals Time Frame: May 31, 2020 Eating (QC): 4 Oral Hygiene (QC): 4 Toileting Hygiene (QC): 3 Shower/Bathe Self (QC): 3 Upper Body Dressing (QC): 4 Lower Body Dressing (QC): 3 On/Off Footwear (QC): 3 Additional Goals: 1-Demonstrate ADL Tasks, 2-Verbalize Understanding, 3- ImproveStrength/Vinicius 1=Demonstrate adherence to instructed precautions during ADL tasks. 2=Patient will verbalize/demonstrate understanding of assistive devices/modifications for ADL. 3=Patient will improve strength/tolerance for activity to enable patient to perform ADL's. OT Education/Plan Problem List/Assessment Assessment: Decreased Activ Tolerance, Decreased UE Strength, Dependent Transfers, Impaired Bed Mobility, Impaired Cognition, Impaired Coordination, Impaired Funct Balance, Impaired I ADL's, Impaired Self-Care Skills, Restricted Funct UE ROM, Visual-Perceptual Deficit Discharge Recommendations Plan/Recommendations: Continue POC Therapy Discharge Recommendati: 24 Hour Supervision Treatment Plan/Plan of Care Treatment,Training & Education: Yes Patient would benefit from OT for education, treatment and training to promote independence in ADL's, mobility, safety and/or upper extremity function for ADL's. Plan of Care: ADL Retraining, Functional Mobility, UE Funct Exercise/Act Treatment Duration: May 31, 2020 Frequency: Modified Program (IRF) Estimated Hrs Per Day: Other (modified COVID waiver-60minutes/day) Agreement: Yes Rehab Potential: Fair Time/GCodes Start Time: 08:30 Stop Time: 09:30 Total Time Billed (hr/min): 60 Billed Treatment Time 1, ADL x 4 ALTON MARKS OT May 09, 2020 10:14
--- NOTE | 2020-05-09 10:35 | Physical Therapy Daily Note ---
PT Daily Note-Current Subjective Pt in recliner upon arrival and agrees to tx. Pt sister enters room longterm through tx. Pt became confused during an exercise and forgot what we were doing. Pain Location: No Pain Reported Mental Status Patient Orientation: Person, Place Transfers SCALE: Activities may be completed with or without assistive devices. 3-Xbifhozhin-qstduwv completes the activity by him/herself with no assistance from a helper. 5-Set-up or Clean-up Assistance-helper sets up or cleans up; patient completes activity. [place] assists only prior to or following the activity. 4-Supervision or Touching Assistance-helper provides verbal cues and/or touching/steadying and/or contact guard assistance as patient completes activity . Assistance may be provided throughout the activity or intermittently. 3-Partial/Moderate Assistance-helper does LESS THAN HALF the effort. [place] lifts, holds or supports trunk or limbs, but provides less than half the effort. 2-Substantial/Maximal Assistance-helper does MORE THAN HALF the effort. [place] lifts or holds trunk or limbs and provides more than half the effort. 8-Wbsyqvlnk-jtemhe does ALL the effort. Patient does none of the effort to complete the activity. Or, the assistance of 2 or more helpers is required for the patient to complete the activity. If activity was not attempted, code reason: 7-Patient Refused. 9-Not Applicable-not attempted and the patient did not perform the activity before the current illness, exacerbation or injury. 10-Not Attempted due to Environmental Limitations-(lack of equipment, weather restraints, etc.). 88-Not Attempted due to Medical Conditions or Safety Concerns. Weight Bearing Right Lower Extremity: Right Weight Bearing/Tolerated Left Lower Extremity: Left Weight Bearing/Tolerated Wheelchair Training Does the Pt Use a Wheelchair?: No Exercises Supine Ex: Ankle pumps, Glut sets, Heel Slides (Active assist), Short Arc Quads, Straight leg raise Supine Reps: 10 Treatments Pt performs exercises in supine active assists, pt needs many VC throughout exercises and encouragement. Pt performs alternating reciprocal shoulder flexion and abduction with A x2 with therapist on each side. Pt sister given written HEP for supine and seated exercises. Pt trialed scooting up into recliner with modA x2. Pt left in recliner with all needs met and call light in hand. Assessment Current Status: Good Progress Pt needing frequent rest breaks and became confused in middle of exercise, forgetting what we were doing. Overall, pt more alert. Pt has increase of tone during exercise. PT Short Term Goals Short Term Goals Time Frame: May 10, 2020 Roll Left & Right: 2 Sit to lyin Lying to sitting on side of be: 2 Sit to stand: 2 Chair/yev-xd-kwpds transfer: 2 PT Prison Goals Prison Goals PT Process Manager Goals Time Frame: May 24, 2020 Roll Left & Right (QC): 3 Sit to Lying (QC): 3 Lying-Sitting on Side/Bed(QC): 3 Sit to Stand (QC): 3 Chair/Pmq-wr-Fksuv Xfer(QC): 3 Toilet Transfer (QC): 3 Car Transfer (QC): 3 Does the Patient Walk: No and Walking Goal IS indicated Walk 10 feet (QC): 3 Walk 50ft with 2 Turns (QC): 88 Walk 150 ft (QC): 88 Walking 10ft on Uneven Surface: 88 1 Step (curb) (QC): 88 4 Steps (QC): 88 12 Steps (QC): 88 Picking up an Object (QC): 88 Does the Pt use WC or Scooter?: Yes Wheel 50 feet with 2 turns (QC: 2 Wheel 150 feet: 88 PT Plan Problem List Problem List: Activity Tolerance, Functional Strength, Safety, Balance, Tr ansfer Treatment/Plan Treatment Plan: Continue Plan of Care Treatment Plan: Bed Mobility, Education, Functional Activity Vinicius, Functional Strength, Group Therapy, Gait, Safety, Therapeutic Exercise, Transfers Treatment Duration: May 24, 2020 Frequency: covid waiver 60 min per day Estimated Hrs Per Day: 1.5 hours per day Patient and/or Family Agrees t: Yes Safety Risks/Education Patient Education: Issued Written HEP, Correct Positioning, Safety Issues Teaching Recipient: Patient, Family Teaching Methods: Demonstration, Discussion Response to Teaching: Verbalize Understanding, Return Demonstration Time/GCodes Time In: 930 Time Out: 1030 Total Billed Treatment Time: 60 Total Billed Treatment 1, Ex x3 (45m), FAVIO REESE SENIOR POWER SCHEDULER May 09, 2020 10:35
--- NOTE | 2020-05-09 11:29 | PM&R Progress Note ---
Subjective HPI/CC On Admission Date Seen by Provider: May 09, 2020 Time Seen by Provider: 11:15 Subjective/Events-last exam Pt is sleeping since after PT but overall she has had significant improvement in her alertness and overall well-being Has a BM yesterday after suppository Amantadine seems to be really helping her Sister at the bedside seems really pleased with her progress Checked meds and labs Conferred with RN Reviewed therapy notes Review of Systems General: Fatigue, Malaise Neurological: Weakness, Incoordination, Confusion Objective Exam Vital Signs Vital Signs Date Time Temp Pulse Resp B/P (MAP) Pulse Ox O2 Delivery O2 Flow Rate FiO2 05/09/20 16:00 36.6 84 16 129/77 (94) 98 Room Air Capillary Refill : Less Than 3 Seconds General Appearance: No Apparent Distress, WD/WN, Chronically ill, Thin HEENT: PERRL/EOMI, Normal ENT Inspection, Pharynx Normal Neck: Normal Inspection, Non Tender, Supple, Carotid Bruit, Limited Range of Motion Respiratory: Chest Non Tender, Lungs Clear, No Accessory Muscle Use, No Respiratory Distress, Decreased Breath Sounds Cardiovascular: Regular Rate, Rhythm, No Edema, No Gallop, No JVD, No Murmur, Normal Peripheral Pulses Gastrointestinal: Normal Bowel Sounds, No Organomegaly, No Pulsatile Mass, Non Tender, Soft Back: Normal Inspection, No CVA Tenderness, No Vertebral Tenderness, Decreased Range of Motion, Other (scoliosis) Extremity: Normal Capillary Refill, Normal Inspection, Normal Range of Motion, Non Tender, No Calf Tenderness, No Pedal Edema Neurologic/Psychiatric: Alert, Oriented x3, Abnormal Gait, Depressed Affect, Motor Weakness (Severe Tremor, generalized weakness, ) Skin: Normal Color, Warm/Dry Lymphatic: No Adenopathy Results/Procedures Lab Patient resulted labs reviewed. FIM Transfers Therapy Code Descriptions/Definitions Functional [place] Measure: 0=Not Assessed/NA 4=Minimal Assistance 1=Total Assistance 5=Supervision or Setup 2=Maximal Assistance 6=Modified [place] 3=Moderate Assistance 7=Complete IndependenceSCALE: Activities may be completed with or without assistive devices. 7-Gvicxkvdbi-vdaoiss completes the activity by him/herself with no assistance from a helper. 5-Set-up or Clean-up Assistance-helper sets up or cleans up; patient completes activity. [place] assists only prior to or following the activity. 4-Supervision or Touching Assistance-helper provides verbal cues and/or touching/steadying and/or contact guard assistance as patient completes activity. Assistance may be provided throughout the activity or intermittently. 3-Partial/Moderate Assistance-helper does LESS THAN HALF the effort. [place] lifts, holds or supports trunk or limbs, but provides less than half the effort. 2-Substantial/Maximal Assistance-helper does MORE THAN HALF the effort. [place] lifts or holds trunk or limbs and provides more than half the effort. 0-Aynxghjmd-emyvzd does ALL the effort. Patient does none of the effort to complete the activity. Or, the assistance of 2 or more helpers is required for the patient to complete the activity. If activity was not attempted, code reason: 7-Patient Refused. 9-Not Applicable-not attempted and the patient did not perform the activity before the current illness, exacerbation or injury. 10-Not Attempted due to Environmental Limitations-(lack of equipment, weather restraints, etc.). 88-Not Attempted due to Medical Conditions or Safety Concerns. Roll Left to Right (QC): 1 Sit to Lying (QC): 1 Sit to Stand (QC): 1 Chair/Mcc-zh-Plkhk Xfer(QC): 1 Car Transfer (QC): 1 Gait Training Does the Patient Walk?: No and Walking Goal NOT indicated Walk 10 feet (QC): 88 Walk 50 ft with 2 Turns(QC): 88 Walk 150 ft (QC): 88 Walking 10ft/uneven surface-QC: 88 Wheelchair Training Does the Pt Use a Wheelchair?: No Wheel 50 ft with 2 turns (QC): 1 Wheel 150 ft (QC): 1 Stair Training 1 Step (curb) (QC): 88 4 Steps (QC): 88 12 Steps (QC): 88 Balance Picking up an Object (QC): 88 ADL-Treatment Eating (QC): 2 (Max per nursing.) Oral Hygiene (QC): 7 (Pt. declined putting dentures in.) Shower/Bathe Self (QC): 1 (Pt. is able to wash chest and left UE. Requires assistance for all other parts. Pt. requires assist of one to stand, and assist of another to cleanse azucena area thoroughly.) Upper Body Dressing (QC): 2 (Pt. able to engage more this date in assisting with doffing/donning shirt. Pt. overall still requires max assist, but is able to thread arms into shirt.) Lower Body Dressing (QC): 1 On/Off Footwear (QC): 1 Toileting Hygiene (QC): 1 (Pt. incontinent of urine in brief. OT asks if she needs to use BSC and she does. Pt. is able to urinate and have BM once on commode.) Toilet Transfer (QC): 1 Assessment/Plan Assessment and Plan Assess & Plan/Chief Complaint Assessment: PD Hyponatremia due to SIADH Constipation periodic Scoliosis Elevated AST Falls Cognitive deficit "Freezing up" episodes initiated on Amantadine and seems to be responding Plan: Fluid restrict IRF protocol BM regimen Home meds Lovenox Amantadine (1) Parkinson disease Status: Chronic (2) Thrombocytosis Status: Resolved Resolution Date/Time: 05/03/20 @ 10:33 (3) Elevated AST (SGOT) Status: Acute (4) DVT prophylaxis Status: Acute (5) Frequent falls Status: Acute (6) Tremor Status: Chronic (7) Constipation Status: Acute (8) Scoliosis (9) Hyponatremia Status: Acute (10) Syncope Status: Acute HAYDRE VALLES DO May 09, 2020 11:29
--- NOTE | 2020-05-09 11:39 | Speech Therapy Daily Note ---
Speech Daily Progress Note Subjective Date Seen by Provider: May 09, 2020 Time Seen by Provider: 00:30 Patient was resting in her recliner following her OT and PT session. Objective Patient completed a series of "what's wrong with this picture" safety awareness cards with 75% given minimal to moderate cuing. Assessment Assessment Current Status: Good Progress Treatment Plan Continue Plan of Care Speech Short Term Goals Short Term Goals Short Term Goals 1) Patient will answer simple y/n questions with 80% given minimal cues. 2) Patient will demo completion of "fill in the blank" sentences at the initial level at 80% with minimal cues. 3) Patient will recall information at the 5 and 10 minute increments at 80% with minimal cues. Speech Security Professional Goals Security Professional Goals Patient will improve cognitive-communication necessary for safety and daily living tasks with minimal assist. 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 Treatment Plan Speech Therapy Treatment Plan: Continue Plan of Care Treatment Duration: May 12, 2020 Frequency: 4 times per week (Patient will receive skilled ST 4-5 times per week.) Estimated Hrs Per Day: .5 hour per day Rehab Potential: Fair Barriers to Learning: Patient's medical status Pt/Family Agrees to Plan: Yes Safety Risks/Education Teaching Recipient: Patient, Family Teaching Methods: Demonstration, Discussion Response to Teaching: Verbalize Understanding, Return Demonstration Education Topics Provided: Continued communication of her wants/needs Time Speech Therapy Time In: 10:30 Speech Therapy Time Out: 11:00 Total Billed Time: 30 Billed Treatment Time 1, GEORGE Riley May 09, 2020 11:39
[2020-05-09 16:00] VITALS: BP 129/77
[2020-05-09] MEDS: ENOXAPARIN 30 MG/0.3 ML (LOVENOX) SYR SC SCH (16:27)
--- NOTE | 2020-05-09 19:17 | NUR ---
bedside report received from MINNIE JC, assume care of pt
[2020-05-09] MEDS: PRIMIDONE 50 MG TAB (MYSOLINE) PO SCH (21:09)
--- NOTE | 2020-05-09 21:10 | NUR ---
day shift nurse reports pt had 2 stools today, jcarlos & Oliver cobb
[2020-05-09] MEDS: polyethylene glycoL POWDER 17 GM (MIRALAX) PACK PO SCH (21:16)
[2020-05-10 05:35] VITALS: BP 162/85
[2020-05-10] MEDS: polyethylene glycoL POWDER 17 GM (MIRALAX) PACK PO SCH (08:07)
[2020-05-10] MEDS: DOCUSATE SODIUM 100 MG (COLACE) CAP PO SCH (08:07)
[2020-05-10] MEDS: SENNA W/DOCUSATE (SENOKOT S) TABLET PO SCH ×2 (08:07→23:12)
[2020-05-10] MEDS: CALCIUM CARBONATE 600 MG (CALCARB) TAB PO SCH ×2 (08:24→18:34)
[2020-05-10] MEDS: amLODIPine 5 MG (NORVASC) TAB PO SCH (08:24)
[2020-05-10] MEDS: PROPRANOLOL 20 MG (INDERAL) TABLET PO SCH ×2 (08:24→23:12)
[2020-05-10] MEDS: FLUoxetine HCL 20 MG (PROzac) CAP PO SCH (08:24)
[2020-05-10] MEDS: SINEMET 25/100 (CARBIDOPA/LEVODOPA) TAB PO SCH ×3 (08:24→23:12)
[2020-05-10] MEDS: VITAMIN D3 25 MCG (1,000 UNITS) TABLET PO SCH ×2 (08:24→23:12)
[2020-05-10] MEDS: AMANTADINE 100 MG (SYMMETREL) CAP PO SCH ×2 (08:25→23:13)
[2020-05-10] MEDS: SODIUM CHLORIDE 1 GM TABLET PO SCH ×2 (08:34→23:13)
--- NOTE | 2020-05-10 09:32 | PM&R Progress Note ---
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 Max assist Team meeting today to evaluate disposition Checked meds and labs Conferred with RN Reviewed therapy notes Review of Systems General: Fatigue, Malaise Neurological: Weakness, Numbness, Incoordination, Confusion Objective Exam Vital Signs Vital Signs Date Time Temp Pulse Resp B/P (MAP) Pulse Ox O2 Delivery O2 Flow Rate FiO2 05/10/20 17:01 36.0 79 20 135/64 (87) 98 Room Air Capillary Refill : Less Than 3 Seconds General Appearance: No Apparent Distress, WD/WN, Chronically ill, Thin HEENT: PERRL/EOMI, Normal ENT Inspection, Pharynx Normal Neck: Normal Inspection, Non Tender, Supple, Carotid Bruit, Limited Range of Motion Respiratory: Chest Non Tender, Lungs Clear, No Accessory Muscle Use, No Respiratory Distress, Decreased Breath Sounds Cardiovascular: Regular Rate, Rhythm, No Edema, No Gallop, No JVD, No Murmur, Normal Peripheral Pulses Gastrointestinal: Normal Bowel Sounds, No Organomegaly, No Pulsatile Mass, Non Tender, Soft Back: Normal Inspection, No CVA Tenderness, No Vertebral Tenderness, Decreased Range of Motion, Other (scoliosis) Extremity: Normal Capillary Refill, Normal Inspection, Normal Range of Motion, Non Tender, No Calf Tenderness, No Pedal Edema Neurologic/Psychiatric: Alert, Oriented x3, Abnormal Gait, Depressed Affect, Motor Weakness (Severe Tremor, generalized weakness, ) Skin: Normal Color, Warm/Dry Lymphatic: No Adenopathy Results/Procedures Lab Patient resulted labs reviewed. FIM Transfers Therapy Code Descriptions/Definitions Functional [place] Measure: 0=Not Assessed/NA 4=Minimal Assistance 1=Total Assistance 5=Supervision or Setup 2=Maximal Assistance 6=Modified [place] 3=Moderate Assistance 7=Complete IndependenceSCALE: Activities may be completed with or without assistive devices. 0-Kxdqncvsys-nhhxxfe completes the activity by him/herself with no assistance from a helper. 5-Set-up or Clean-up Assistance-helper sets up or cleans up; patient completes activity. [place] assists only prior to or following the activity. 4-Supervision or Touching Assistance-helper provides verbal cues and/or touching/steadying and/or contact guard assistance as patient completes activity. Assistance may be provided throughout the activity or intermittently. 3-Partial/Moderate Assistance-helper does LESS THAN HALF the effort. [place] lifts, holds or supports trunk or limbs, but provides less than half the effort. 2-Substantial/Maximal Assistance-helper does MORE THAN HALF the effort. [place] lifts or holds trunk or limbs and provides more than half the effort. 8-Hlcqbcipk-kxvipx does ALL the effort. Patient does none of the effort to complete the activity. Or, the assistance of 2 or more helpers is required for the patient to complete the activity. If activity was not attempted, code reason: 7-Patient Refused. 9-Not Applicable-not attempted and the patient did not perform the activity befo re the current illness, exacerbation or injury. 10-Not Attempted due to Environmental Limitations-(lack of equipment, weather re straints, etc.). 88-Not Attempted due to Medical Conditions or Safety Concerns. Roll Left to Right (QC): 1 Sit to Lying (QC): 1 Sit to Stand (QC): 1 Chair/Xku-kp-Whofv Xfer(QC): 1 Car Transfer (QC): 1 Gait Training Walk 10 feet (QC): 88 Walk 50 ft with 2 Turns(QC): 88 Walk 150 ft (QC): 88 Walking 10ft/uneven surface-QC: 88 Wheelchair Training Wheel 50 ft with 2 turns (QC): 1 Wheel 150 ft (QC): 1 Stair Training 1 Step (curb) (QC): 88 4 Steps (QC): 88 12 Steps (QC): 88 Balance Picking up an Object (QC): 88 ADL-Treatment Eating (QC): 2 (Max per nursing.) Oral Hygiene (QC): 7 (Pt. declined putting dentures in.) Shower/Bathe Self (QC): 1 (Pt. is able to wash chest and left UE. Requires assistance for all other parts. Pt. requires assist of one to stand, and assist of another to cleanse azucena area thoroughly.) Upper Body Dressing (QC): 2 (Pt. able to engage more this date in assisting with doffing/donning shirt. Pt. overall still requires max assist, but is able to thread arms into shirt.) Lower Body Dressing (QC): 1 On/Off Footwear (QC): 1 Toileting Hygiene (QC): 1 (Pt. incontinent of urine in brief. OT asks if she needs to use BSC and she does. Pt. is able to urinate and have BM once on commode.) Toilet Transfer (QC): 1 Assessment/Plan Assessment and Plan Assess & Plan/Chief Complaint Assessment: PD Hyponatremia due to SIADH Constipation periodic Scoliosis Elevated AST Falls Cognitive deficit "Freezing up" episodes initiated on Amantadine and seems to be responding Plan: Fluid restrict IRF protocol BM regimen Home meds Lovenox Amantadine Disposition discussion at team meeting (1) Parkinson disease Status: Chronic (2) Thrombocytosis Status: Resolved Resolution Date/Time: 05/03/20 @ 10:33 (3) Elevated AST (SGOT) Status: Acute (4) DVT prophylaxis Status: Acute (5) Frequent falls Status: Acute (6) Tremor Status: Chronic (7) Constipation Status: Acute (8) Scoliosis (9) Hyponatremia Status: Acute (10) Syncope Status: Acute HAYDER VALLES DO May 10, 2020 09:32
--- NOTE | 2020-05-10 09:38 | Physical Therapy Daily Note ---
PT Daily Note-Current Subjective Pt laying in recliner. Pt has difficulty staying up in chair. Pt tends to slide down. Pain Location: No Pain Reported Mental Status Patient Orientation: Person, Place Transfers SCALE: Activities may be completed with or without assistive devices. 3-Wgkaojvnzy-kfwnqmm completes the activity by him/herself with no assistance from a helper. 5-Set-up or Clean-up Assistance-helper sets up or cleans up; patient completes activity. [place] assists only prior to or following the activity. 4-Supervision or Touching Assistance-helper provides verbal cues and/or touching/steadying and/or contact guard assistance as patient completes activity. Assistance may be provided throughout the activity or intermittently. 3-Partial/Moderate Assistance-helper does LESS THAN HALF the effort. [place] lifts, holds or supports trunk or limbs, but provides less than half the effort. 2-Substantial/Maximal Assistance-helper does MORE THAN HALF the effort. [place] lifts or holds trunk or limbs and provides more than half the effort. 2-Pknhabewe-hsfcfs does ALL the effort. Patient does none of the effort to complete the activity. Or, the assistance of 2 or more helpers is required for the patient to complete the activity. If activity was not attempted, code reason: 7-Patient Refused. 9-Not Applicable-not attempted and the patient did not perform the activity before the current illness, exacerbation or injury. 10-Not Attempted due to Environmental Limitations-(lack of equipment, weather restraints, etc.). 88-Not Attempted due to Medical Conditions or Safety Concerns. Weight Bearing Right Lower Extremity: Right Weight Bearing/Tolerated Left Lower Extremity: Left Weight Bearing/Tolerated Exercises Supine Ex: Ankle pumps, Quad Set, Glut sets, Heel Slides, Hip abd/add Supine Reps: 15 Treatments Pt completes Supine Ex in chair with RB as needed. Pt is repositioned as OT arrives. 2nd session: Pt focuses on AP to assist with standing. REC[employer] & pt's sister review EX from HEP. Pt is repositioned at end of Rx. Assessment Current Status: Poor Progress Pt tries but pt has a lot of tone especially in B LE to overcome. PT Short Term Goals Short Term Goals Time Frame: May 10, 2020 Roll Left & Right: 2 Sit to lyin Lying to sitting on side of be: 2 Sit to stand: 2 Chair/okr-sj-gvjkq transfer: 2 PT [employer] Crew Lead Goals [employer] Crew Lead Goals PT Intermediate Goals Time Frame: May 24, 2020 Roll Left & Right (QC): 3 Sit to Lying (QC): 3 Lying-Sitting on Side/Bed(QC): 3 Sit to Stand (QC): 3 Chair/Ire-jj-Yjhhy Xfer(QC): 3 Toilet Transfer (QC): 3 Car Transfer (QC): 3 Does the Patient Walk: No and Walking Goal IS indicated Walk 10 feet (QC): 3 Walk 50ft with 2 Turns (QC): 88 Walk 150 ft (QC): 88 Walking 10ft on Uneven Surface: 88 1 Step (curb) (QC): 88 4 Steps (QC): 88 12 Steps (QC): 88 Picking up an Object (QC): 88 Does the Pt use WC or Scooter?: Yes Wheel 50 feet with 2 turns (QC: 2 Wheel 150 feet: 88 PT Plan Problem List Problem List: Activity Tolerance, Functional Strength, Safety, Transfer, Bed Mobility, ROM Treatment/Plan Treatment Plan: Continue Plan of Care Treatment Plan: Bed Mobility, Education, Functional Activity Vinicius, Functional Strength, Group Therapy, Gait, Safety, Therapeutic Exercise, Transfers Treatment Duration: May 24, 2020 Frequency: alen green 60 min per day Estimated Hrs Per Day: 1.5 hours per day Patient and/or Family Agrees t: Yes Safety Risks/Education Patient Education: Transfer Techniques, Correct Positioning, Safety Issues Teaching Recipient: Patient Teaching Methods: Discussion Response to Teaching: Verbalize Understanding Time/GCodes Time In: 800 Time Out: 830 Total Billed Treatment Time: 30 Total Billed Treatment 1, EX x2 (30m), 2nd session: 1 EX x2 (30m) 2nd session: [id number] FAVIO ADAIR REC[employer] May 10, 2020 09:37
--- NOTE | 2020-05-10 11:13 | Occupational Ther Daily Note ---
OT Current Status-Daily Note Subjective No pain reported. Appearance Pt. up in reclining chair. Agrees to work with therapy. Mental Status/Objective Patient Orientation: Person, Place ADL-Treatment Therapy Code Descriptions/Definitions Functional [place] Measure: 0=Not Assessed/NA 4=Minimal Assistance 1=Total Assistance 5=Supervision or Setup 2=Maximal Assistance 6=Modified [place] 3=Moderate Assistance 7=Complete IndependenceSCALE: Activities may be completed with or without assistive devices. 6-Ocnejjdcih-nfllgjs completes the activity by him/herself with no assistance from a helper. 5-Set-up or Clean-up Assistance-helper sets up or cleans up; patient completes activity. [place] assists only prior to or following the activity. 4-Supervision or Touching Assistance-helper provides verbal cues and/or touching/steadying and/or contact guard assistance as patient completes activity. Assistance may be provided throughout the activity or intermittently. 3-Partial/Moderate Assistance-helper does LESS THAN HALF the effort. [place] lifts, holds or supports trunk or limbs, but provides less than half the effort. 2-Substantial/Maximal Assistance-helper does MORE THAN HALF the effort. [place] lifts or holds trunk or limbs and provides more than half the effort. 3-Xbrzlseuw-fmrwby does ALL the effort. Patient does none of the effort to complete the activity. Or, the assistance of 2 or more helpers is required for the patient to complete the activity. If activity was not attempted, code reason: 7-Patient Refused. 9-Not Applicable-not attempted and the patient did not perform the activity before the current illness, exacerbation or injury. 10-Not Attempted due to Environmental Limitations-(lack of equipment, weather restraints, etc.). 88-Not Attempted due to Medical Conditions or Safety Concerns. Oral Hygiene (QC): 7 (Pt. declines putting in dentures.) Upper Body Dressing (QC): 2 (Pt. able to assist with doffing shirt over arms, and donning over head. Overall, requires max assist.) Lower Body Dressing (QC): 1 (Pt. dependent with donning brief and pants.) On/Off Footwear: 1 Toileting Hygiene (QC): 1 (Pt. incontinent of bowel and urine in brief. Agrees to sit on BSC and urinate. Dependent assist to stand with one person while another cleanses azucena care.) Toilet Transfer (QC): 1 Other Treatment Pt. is agreeable to dress and toilet before going to gym. Pt. is able to slightly pull self forward with cues in chair before transfer, but requires max assist to lean forward more, and dependent assist to stand and pivot to other surfaces. More alert this date overall. In therapy gym, pt. transferred to mat. One person sat behind pt. facilitating posture while another sat in front to facilitate pelvic tilt and mobility. Pt. is encouraged to bend at hips, tilting pelvis anteriorly and posteriorly. Pt. has difficulty with breaking up movements, and often moves as one unit. OT facilitates knee bend, as well as f oot placement on floor. Note significant contracture in ankles in plantar flexion, making flat foot and stability impossible. Pt. transfers sit-supine with dependent assist and OT provides gentle stretch to bilateral UE at shoulder and pectoral region. Noted significant tightness and shortening in pectoral muscles, right side more so than left. Provided ramon stretch to neck in rotation. Transferred back sit-supine with dependent assist, and then assist for transfer to wheelchair. Pt. taken back to room and transferred to reclining chair. All needs met. Education OT Patient Education: Correct positioning, Exercise program, Modified ADL techniques, Progress toward Goal/Update tx plan, Purpose of tx/functional activities, Reviewed precautions, Rehab process, Transfer techniques Teaching Recipient: Patient Teaching Methods: Demonstration, Discussion Response to Teaching: Verbalize Understanding, Return Demonstration, Reinforcement Needed OT Short Term Goals Short Term Goals Time Frame: May 17, 2020 Eatin Oral hygiene: 3 Toileting hygiene: 2 Shower/bathe self: 2 Upper body dressin Lower body dressin Putting on/taking off footwear: 3 OT Sort Operations Supervisor Goals Intermediate Goals Time Frame: May 31, 2020 Eating (QC): 4 Oral Hygiene (QC): 4 Toileting Hygiene (QC): 3 Shower/Bathe Self (QC): 3 Upper Body Dressing (QC): 4 Lower Body Dressing (QC): 3 On/Off Footwear (QC): 3 Additional Goals: 1-Demonstrate ADL Tasks, 2-Verbalize Understanding, 3- ImproveStrength/[place] 1=Demonstrate adherence to instructed precautions during ADL tasks. 2=Patient will verbalize/demonstrate understanding of assistive devices/modifications for ADL. 3=Patient will improve strength/tolerance for activity to enable patient to perform ADL's. OT Education/Plan Problem List/Assessment Assessment: Decreased Activ Tolerance, Decreased UE Strength, Dependent Transfe rs, Impaired Bed Mobility, Impaired Cognition, Impaired Coordination, Impaired Funct Balance, Impaired I ADL's, Impaired Self-Care Skills, Restricted Funct UE ROM, Visual-Perceptual Deficit Discharge Recommendations Plan/Recommendations: Continue POC Therapy Discharge Recommendati: 24 Hour Supervision Treatment Plan/Plan of Care Treatment,Training & Education: Yes Patient would benefit from OT for education, treatment and training to promote independence in ADL's, mobility, safety and/or upper extremity function for ADL's. Plan of Care: ADL Retraining, Functional Mobility, UE Funct Exercise/Act Treatment Duration: May 31, 2020 Frequency: Modified Program (IRF) Estimated Hrs Per Day: Other (modified COVID waiver-60minutes/day) Agreement: Yes Rehab Potential: Fair Time/GCodes Start Time: 08:30 Stop Time: 09:30 Total Time Billed (hr/min): 60 Billed Treatment Time 1, ADL x 30minutes, FA x 30minutes ALTON MARKS OT May 10, 2020 11:13
--- NOTE | 2020-05-10 14:35 | Speech Therapy Daily Note ---
Speech Daily Progress Note Subjective Date Seen by Provider: May 10, 2020 Time Seen by Provider: 00:30 Patient was resting in her recliner with her sister present. She was alert and participated well with therapy this date. Objective Patient completed safety awareness task cards with 80% given minimal to moderate verbal and/or visual cues. Assessment Assessment Current Status: Good Progress Treatment Plan Continue Plan of Care Speech Short Term Goals Short Term Goals Short Term Goals 1) Patient will answer simple y/n questions with 80% given minimal cues. 2) Patient will demo completion of "fill in the blank" sentences at the initial level at 80% with minimal cues. 3) Patient will recall information at the 5 and 10 minute increments at 80% with minimal cues. Speech Retirement Goals Organizational Development Director Goals Patient will improve cognitive-communication necessary for safety and daily living tasks with minimal assist. Speech-Plan Patient/Family Goals Patient/Family Goals: Patient is being scheduled to move to a SNF upon discharge. Treatment Plan Speech Therapy Treatment Plan: Continue Plan of Care Treatment Duration: May 12, 2020 Frequency: 4 times per week (Patient will receive skilled ST 4-5 times per week.) Estimated Hrs Per Day: .5 hour per day Rehab Potential: Fair Barriers to Learning: Patient's medical status Pt/Family Agrees to Plan: Yes Safety Risks/Education Teaching Recipient: Patient, Family Teaching Methods: Demonstration, Discussion Response to Teaching: Verbalize Understanding, Return Demonstration Education Topics Provided: Continued communication of wants/needs Time Speech Therapy Time In: 11:00 Speech Therapy Time Out: 11:30 Total Billed Time: 30 Billed Treatment Time 1, GEORGE Riley May 10, 2020 14:34
[2020-05-10] MEDS: ENOXAPARIN 30 MG/0.3 ML (LOVENOX) SYR SC SCH (16:56)
[2020-05-10 17:01] VITALS: BP 135/64
[2020-05-10] MEDS: PRIMIDONE 50 MG TAB (MYSOLINE) PO SCH (23:12)
--- NOTE | 2020-05-11 06:33 | PM&R Progress Note ---
Subjective HPI/CC On Admission Date Seen by Provider: May 11, 2020 Time Seen by Provider: 10:45 Subjective/Events-last exam Pt pretty tired right now Had a BM yesterday No major issues Sister at the bedside No falls but increased risk Disposition will be skilled care Checked meds and labs Conferred with RN Reviewed therapy notes Review of Systems General: Malaise Neurological: Weakness, Numbness, Incoordination Objective Exam Vital Signs Vital Signs Date Time Temp Pulse Resp B/P (MAP) Pulse Ox O2 Delivery O2 Flow Rate FiO2 05/11/20 16:12 36.0 85 14 114/69 (84) 99 Room Air Capillary Refill : Less Than 3 Seconds General Appearance: No Apparent Distress, WD/WN, Chronically ill, Thin HEENT: PERRL/EOMI, Normal ENT Inspection, Pharynx Normal Neck: Normal Inspection, Non Tender, Supple, Carotid Bruit, Limited Range of Motion Respiratory: Chest Non Tender, Lungs Clear, No Accessory Muscle Use, No Respiratory Distress, Decreased Breath Sounds Cardiovascular: Regular Rate, Rhythm, No Edema, No Gallop, No JVD, No Murmur, Normal Peripheral Pulses Gastrointestinal: Normal Bowel Sounds, No Organomegaly, No Pulsatile Mass, Non Tender, Soft Back: Normal Inspection, No CVA Tenderness, No Vertebral Tenderness, Decreased Range of Motion, Other (scoliosis) Extremity: Normal Capillary Refill, Normal Inspection, Normal Range of Motion, Non Tender, No Calf Tenderness, No Pedal Edema Neurologic/Psychiatric: Alert, Oriented x3, Abnormal Gait, Depressed Affect, Motor Weakness (Severe Tremor, generalized weakness, ) Skin: Normal Color, Warm/Dry Lymphatic: No Adenopathy Results/Procedures Lab Patient resulted labs reviewed. FIM Transfers Therapy Code Descriptions/Definitions Functional [place] Measure: 0=Not Assessed/NA 4=Minimal Assistance 1=Total Assistance 5=Supervision or Setup 2=Maximal Assistance 6=Modified [place] 3=Moderate Assistance 7=Complete IndependenceSCALE: Activities may be completed with or without assistive devices. 6-Kheaarzste-mqmoqnd completes the activity by him/herself with no assistance from a helper. 5-Set-up or Clean-up Assistance-helper sets up or cleans up; patient completes activity. [place] assists only prior to or following the activity. 4-Supervision or Touching Assistance-helper provides verbal cues and/or touching/steadying and/or contact guard assistance as patient completes activity. Assistance may be provided throughout the activity or intermittently. 3-Partial/Moderate Assistance-helper does LESS THAN HALF the effort. [place] lifts, holds or supports trunk or limbs, but provides less than half the effort. 2-Substantial/Maximal Assistance-helper does MORE THAN HALF the effort. [place] lifts or holds trunk or limbs and provides more than half the effort. 2-Eibtvlwqj-hhxolg does ALL the effort. Patient does none of the effort to complete the activity. Or, the assistance of 2 or more helpers is required for the patient to complete the activity. If activity was not attempted, code reason: 7-Patient Refused. 9-Not Applicable-not attempted and the patient did not perform the activity before the current illness, exacerbation or injury. 10-Not Attempted due to Environmental Limitations-(lack of equipment, weather restraints, etc.). 88-Not Attempted due to Medical Conditions or Safety Concerns. Roll Left to Right (QC): 1 Sit to Lying (QC): 1 Sit to Stand (QC): 1 Chair/Jtc-ro-Vkxbb Xfer(QC): 1 Car Transfer (QC): 1 Gait Training Does the Patient Walk?: No and Walking Goal NOT indicated Walk 10 feet (QC): 88 Walk 50 ft with 2 Turns(QC): 88 Walk 150 ft (QC): 88 Walking 10ft/uneven surface-QC: 88 Wheelchair Training Does the Pt Use a Wheelchair?: Yes Wheel 50 ft with 2 turns (QC): 1 Wheel 150 ft (QC): 1 Type of Wheelchair: Manual Stair Training 1 Step (curb) (QC): 88 4 Steps (QC): 88 12 Steps (QC): 88 Balance Picking up an Object (QC): 88 ADL-Treatment Eating (QC): 2 (Max per nursing.) Oral Hygiene (QC): 7 (Pt. declines putting in dentures.) Shower/Bathe Self (QC): 1 (Pt. is able to wash chest and left UE. Requires assistance for all other parts. Pt. requires assist of one to stand, and assist of another to cleanse azucena area thoroughly.) Upper Body Dressing (QC): 2 (Pt. able to assist with doffing shirt over arms, and donning over head. Overall, requires max assist.) Lower Body Dressing (QC): 1 (Pt. dependent with donning brief and pants.) On/Off Footwear (QC): 1 Toileting Hygiene (QC): 1 (Pt. incontinent of bowel and urine in brief. Agrees to sit on BSC and urinate. Dependent assist to stand with one person while another cleanses azuc[place] care.) Toilet Transfer (QC): 1 Assessment/Plan Assessment and Plan Assess & Plan/Chief Complaint Assessment: PD Hyponatremia due to SIADH Constipation periodic Scoliosis Elevated AST Falls Cognitive deficit "Freezing up" episodes initiated on Amantadine and seems to be responding Plan: Fluid restrict IRF protocol BM regimen Home meds Lovenox Amantadine Disposition discussion at team meeting [facility]eds [facility] discharge (1) Parkinson disease Status: Chronic (2) Thrombocytosis Status: Resolved Resolution Date/Time: 05/03/20 @ 10:33 (3) Elevated AST (SGOT) Status: Acute (4) DVT prophylaxis Status: Acute (5) Frequent falls Status: Acute (6) Tremor Status: Chronic (7) Constipation Status: Acute (8) Scoliosis (9) Hyponatremia Status: Acute (10) Syncope Status: Acute HAYDER VALLES DO May 11, 2020 06:33
[2020-05-11 06:59] VITALS: BP 150/79
[2020-05-11 08:00] VITALS: BP 133/78
[2020-05-11] MEDS: VITAMIN D3 25 MCG (1,000 UNITS) TABLET PO SCH ×2 (08:34→20:24)
[2020-05-11] MEDS: CALCIUM CARBONATE 600 MG (CALCARB) TAB PO SCH ×2 (08:34→18:40)
[2020-05-11] MEDS: SENNA W/DOCUSATE (SENOKOT S) TABLET PO SCH ×2 (08:34→20:24)
[2020-05-11] MEDS: DOCUSATE SODIUM 100 MG (COLACE) CAP PO SCH (08:35)
[2020-05-11] MEDS: amLODIPine 5 MG (NORVASC) TAB PO SCH (08:35)
[2020-05-11] MEDS: AMANTADINE 100 MG (SYMMETREL) CAP PO SCH ×2 (08:35→20:24)
[2020-05-11] MEDS: SINEMET 25/100 (CARBIDOPA/LEVODOPA) TAB PO SCH ×3 (08:35→20:22)
[2020-05-11] MEDS: PROPRANOLOL 20 MG (INDERAL) TABLET PO SCH ×2 (08:35→20:24)
[2020-05-11] MEDS: FLUoxetine HCL 20 MG (PROzac) CAP PO SCH (08:46)
[2020-05-11] MEDS: SODIUM CHLORIDE 1 GM TABLET PO SCH ×2 (09:07→20:24)
--- NOTE | 2020-05-11 10:43 | Occupational Ther Daily Note ---
OT Current Status-Daily Note Subjective Pt. indicates that her night was, "okay." Does not elaborate. No pain reported. Appearance Pt. in bed when therapy entered room. Mental Status/Objective Patient Orientation: Person ADL-Treatment Therapy Code Descriptions/Definitions Functional [place] Measure: 0=Not Assessed/NA 4=Minimal Assistance 1=Total Assistance 5=Supervision or Setup 2=Maximal Assistance 6=Modified [place] 3=Moderate Assistance 7=Complete IndependenceSCALE: Activities may be completed with or without assistive devices. 9-Shiaffgcjd-wucgotx completes the activity by him/herself with no assistance from a helper. 5-Set-up or Clean-up Assistance-helper sets up or cleans up; patient completes activity. [place] assists only prior to or following the activity. 4-Supervision or Touching Assistance-helper provides verbal cues and/or touching/steadying and/or contact guard assistance as patient completes activity. Assistance may be provided throughout the activity or intermittently. 3-Partial/Moderate Assistance-helper does LESS THAN HALF the effort. [place] lifts, holds or supports trunk or limbs, but provides less than half the effort. 2-Substantial/Maximal Assistance-helper does MORE THAN HALF the effort. [place] lifts or holds trunk or limbs and provides more than half the effort. 9-Wdezbbniy-jrxlwy does ALL the effort. Patient does none of the effort to complete the activity. Or, the assistance of 2 or more helpers is required for the patient to complete the activity. If activity was not attempted, code reason: 7-Patient Refused. 9-Not Applicable-not attempted and the patient did not perform the activity before the current illness, exacerbation or injury. 10-Not Attempted due to Environmental Limitations-(lack of equipment, weather restraints, etc.). 88-Not Attempted due to Medical Conditions or Safety Concerns. Shower/Bathe Self (QC): 2 (Pt. is able to pat at chest with washcloth. Pt. begins having significant tremors. She was able to wash her face as well. OT washed all other parts in shower.) Upper Body Dressing (QC): 2 (Pt. able to assist with threading bilateral arms into shirt. OT dons over head and over torso.) Lower Body Dressing (QC): 1 On/Off Footwear: 1 Toileting Hygiene (QC): 1 (Pt. incontinent of bowel and bladder.) Pt. agrees to shower. Transferred supine-sit with max assist. Transferred to shower chair with max assist. Taken to shower. OT attempts to engage pt. in every aspect of shower, and allow her time to process each step. Pt. has great difficulty initiating each task and often begins tremoring when she is attempting to complete something. Overall, required max assist to cleanse all areas. OT assisted with dressing as well. Transferred to wheelchair with max assist. Pt. taken to mirror to brush her hair. Pt. required assist with hand tremors while she was brushing front of hair. OT provided TEJON assist in back of hair. Pt. taken to therapy gym. Pt's hands placed on arm bike, at low resistance. With closed chain, reciprocal pattern, pt. able to slowly propel bike. Completed for 6 minutes times, with increased time for slower pattern. Pt. then participated in UE exercise/activity with pool noodle, as well as ball for back/forth pattern. OT put on classical music during activities to assist with movement pattern. Pt. did well with cues to continue tasks, as she would "freeze" at times during each activity. Pt. taken back to room and transferred to reclining chair with max assist. All needs met. Sister in room. Education OT Patient Education: Correct positioning, Exercise program, Modified ADL techniques, Progress toward Goal/Update tx plan, Purpose of tx/functional activities, Reviewed precautions, Rehab process, Transfer techniques Teaching Recipient: Patient, Family Teaching Methods: Demonstration, Discussion Response to Teaching: Verbalize Understanding, Reinforcement Needed OT Short Term Goals Short Term Goals Time Frame: May 17, 2020 Eatin Oral hygiene: 3 Toileting hygiene: 2 Shower/bathe self: 2 Upper body dressin Lower body dressin Putting on/taking off footwear: 3 OT Shelter Goals Dyeing Machine Feeder Goals Time Frame: May 31, 2020 Eating (QC): 4 Oral Hygiene (QC): 4 Toileting Hygiene (QC): 3 Shower/Bathe Self (QC): 3 Upper Body Dressing (QC): 4 Lower Body Dressing (QC): 3 On/Off Footwear (QC): 3 Additional Goals: 1-Demonstrate ADL Tasks, 2-Verbalize Understanding, 3- ImproveStrength/Vinicius 1=Demonstrate adherence to instructed precautions during ADL tasks. 2=Patient will verbalize/demonstrate understanding of assistive devices/modifications for ADL. 3=Patient will improve strength/tolerance for activity to enable patient to perform ADL's. OT Education/Plan Problem List/Assessment Assessment: Decreased Activ Tolerance, Decreased UE Strength, Dependent Transfers, Impaired Bed Mobility, Impaired Cognition, Impaired Coordination, Impaired Funct Balance, Impaired I ADL's, Impaired Self-Care Skills, Restricted Funct UE ROM Discharge Recommendations Plan/Recommendations: Continue POC Therapy Discharge Recommendati: 24 Hour Supervision Treatment Plan/Plan of Care Treatment,Training & Education: Yes Patient would benefit from OT for education, treatment and training to promote independence in ADL's, mobility, safety and/or upper extremity function for ADL's. Plan of Care: ADL Retraining, Functional Mobility, UE Funct Exercise/Act Treatment Duration: May 31, 2020 Frequency: Modified Program (IRF) Estimated Hrs Per Day: Other (modified COVID waiver-60minutes/day) Agreement: Yes Rehab Potential: Fair Time/GCodes Start Time: 08:30 Stop Time: 09:45 Total Time Billed (hr/min): 75 Billed Treatment Time 1, ADL x 45minutes, Ex x 15minutes, FA x 15minutes ALTON MARKS OT May 11, 2020 10:43
--- NOTE | 2020-05-11 10:46 | NUR ---
CM/SS PATIENT CARE CONFERENCE and DISCHARGE PLANNING Reviewed conference Summary with patient and her POA/Sister Nazia [place]. Nazia is in agreement to next step admission into community [facility] facility, target discharge 05/16/20. Reviewed local facilities and Medicare Compare. Nazia reached out to a close friend who is an RN then concluded that their preferred choice is [facility]. Referral completed with [facility] and spoke with clinical liaison to give verbal report, await confirmation of acceptance. termite treater helper, patient may have opportunity to return home under [facility] [employer] with in-home staff. Nazia understands patient has Medicare only now, 20 days full skilled benefit then copay status. Hopeful that [facility] will be approved expeditiously and/or that copay will be considered covered under "pending" status. Nazia understands the current protocols regarding Covid19, no visitors at [facility] or any other SNF in our area; additionally, patient will be in quarantine 14 days upon admission. Followup next week.
--- NOTE | 2020-05-11 11:27 | Physical Therapy Daily Note ---
PT Daily Note-Current Subjective Pt sitting up in recliner upon arrival. Pt agrees to PT. Pt's sister is present. Pain Location: No Pain Reported Mental Status Patient Orientation: Person Transfers SCALE: Activities may be completed with or without assistive devices. 3-Polvijkmse-pfemtgl completes the activity by him/herself with no assistance from a helper. 5-Set-up or Clean-up Assistance-helper sets up or cleans up; patient completes activity. [place] assists only prior to or following the activity. 4-Supervision or Touching Assistance-helper provides verbal cues and/or touching/steadying and/or contact guard assistance as patient completes activity. Assistance may be provided throughout the activity or intermittently. 3-Partial/Moderate Assistance-helper does LESS THAN HALF the effort. [place] lifts, holds or supports trunk or limbs, but provides less than half the effort. 2-Substantial/Maximal Assistance-helper does MORE THAN HALF the effort. [place] lifts or holds trunk or limbs and provides more than half the effort. 9-Flccswwgt-evnmjz does ALL the effort. Patient does none of the effort to compl ete the activity. Or, the assistance of 2 or more helpers is required for the patient to complete the activity. If activity was not attempted, code reason: 7-Patient Refused. 9-Not Applicable-not attempted and the patient did not perform the activity before the current illness, exacerbation or injury. 10-Not Attempted due to Environmental Limitations-(lack of equipment, weather restraints, etc.). 88-Not Attempted due to Medical Conditions or Safety Concerns. Weight Bearing Right Lower Extremity: Right Weight Bearing/Tolerated Left Lower Extremity: Left Weight Bearing/Tolerated Exercises Supine Ex: Ankle pumps, Quad Set, Glut sets, Heel Slides, Straight leg raise, Hip abd/add Supine Reps: 20 (2 sets of 20 reps, along w/DF/PF stretching) Treatments Pt completes Supine Ex in recliner with a couple of RB as needed. ROAD BUILDER assists with repositioning with waffle cushion. Pt has all needs met, call light in hand. Assessment Current Status: Fair Progress Pt is very drowsy and difficult to keep awake during Ex. Pt demonstrated increased tone throughout Rx. PT Short Term Goals Short Term Goals Time Frame: May 10, 2020 Roll Left & Right: 2 Sit to lyin Lying to sitting on side of be: 2 Sit to stand: 2 Chair/hum-gk-zmzxp transfer: 2 PT Machine Hoop Maker Goals Residential Goals PT Residential Goals Time Frame: May 24, 2020 Roll Left & Right (QC): 3 Sit to Lying (QC): 3 Lying-Sitting on Side/Bed(QC): 3 Sit to Stand (QC): 3 Chair/Fnk-yx-Cgpjt Xfer(QC): 3 Toilet Transfer (QC): 3 Car Transfer (QC): 3 Does the Patient Walk: No and Walking Goal IS indicated Walk 10 feet (QC): 3 Walk 50ft with 2 Turns (QC): 88 Walk 150 ft (QC): 88 Walking 10ft on Uneven Surface: 88 1 Step (curb) (QC): 88 4 Steps (QC): 88 12 Steps (QC): 88 Picking up an Object (QC): 88 Does the Pt use WC or Scooter?: Yes Wheel 50 feet with 2 turns (QC: 2 Wheel 150 feet: 88 PT Plan Problem List Problem List: Activity Tolerance, Functional Strength, Safety, Transfer, ROM Treatment/Plan Treatment Plan: Continue Plan of Care Treatment Plan: Bed Mobility, Education, Functional Activity Vinicius, Functional Strength, Group Therapy, Gait, Safety, Therapeutic Exercise, Transfers Treatment Duration: May 24, 2020 Frequency: alen green 60 min per day Estimated Hrs Per Day: 1.5 hours per day Patient and/or Family Agrees t: Yes Safety Risks/Education Patient Education: Transfer Techniques, Correct Positioning, Safety Issues Teaching Recipient: Patient Teaching Methods: Demonstration, Discussion Response to Teaching: Unable to Return Demonstration, Reinforcement Needed Time/GCodes Time In: 1015 Time Out: 1115 Total Billed Treatment Time: 60 Total Billed Treatment 1, EX x4 (60m) FAVIO ADAIR ROAD BUILDER May 11, 2020 11:27
--- NOTE | 2020-05-11 13:57 | Speech Therapy Daily Note ---
Speech Daily Progress Note Subjective Date Seen by Provider: May 11, 2020 Time Seen by Provider: 00:30 Patient was difficult to keep engaged this date due to being sleepy and just finishing up with the PT. Objective Patient completed a series of q/a with sister's input at 75% with maximum cues. Assessment Assessment Current Status: Fair Progress Treatment Plan Continue Plan of Care Speech Short Term Goals Short Term Goals Short Term Goals 1) Patient will answer simple y/n questions with 80% given minimal cues. 2) Patient will demo completion of "fill in the blank" sentences at the initial level at 80% with minimal cues. 3) Patient will recall information at the 5 and 10 minute increments at 80% with minimal cues. Speech Senior Care Goals Senior Care Goals Patient will improve cognitive-communication necessary for safety and daily living tasks with minimal assist. Speech-Plan Patient/Family Goals Patient/Family Goals: [facility]. Treatment Plan Speech Therapy Treatment Plan: Continue Plan of Care Treatment Duration: May 12, 2020 Frequency: 4 times per week (Patient will receive skilled ST 4-5 times per week.) Estimated Hrs Per Day: .5 hour per day Rehab Potential: Fair Barriers to Learning: Patient's medical status Pt/Family Agrees to Plan: Yes Safety Risks/Education Teaching Recipient: Patient, Family Teaching Methods: Demonstration, Discussion Response to Teaching: Verbalize Understanding, Return Demonstration Education Topics Provided: Patient safety and communication of wants/needs Time Speech Therapy Time In: 11:15 Speech Therapy Time Out: 11:45 Total Billed Time: 30 Billed Treatment Time 1, SLGEORGE Bonilla May 11, 2020 13:57
--- NOTE | 2020-05-11 14:03 | Physical Therapy Daily Note ---
PT Daily Note-Current Subjective Pt laying Supine in recliner upon arrival. Pt agrees to PT. Pain Location: No Pain Reported Mental Status Patient Orientation: Person, Confused Transfers SCALE: Activities may be completed with or without assistive devices. 3-Gdfaxxudea-wawtkjm completes the activity by him/herself with no assistance from a helper. 5-Set-up or Clean-up Assistance-helper sets up or cleans up; patient completes activity. [place] assists only prior to or following the activity. 4-Supervision or Touching Assistance-helper provides verbal cues and/or touching/steadying and/or contact guard assistance as patient completes activity. Assistance may be provided throughout the activity or intermittently. 3-Partial/Moderate Assistance-helper does LESS THAN HALF the effort. [place] lifts, holds or supports trunk or limbs, but provides less than half the effort. 2-Substantial/Maximal Assistance-helper does MORE THAN HALF the effort. [place] lifts or holds trunk or limbs and provides more than half the effort. 9-Dnxdxyjwe-cmnkro does ALL the effort. Patient does none of the effort to complete the activity. Or, the assistance of 2 or more helpers is required for the patient to complete the activity. If activity was not attempted, code reason: 7-Patient Refused. 9-Not Applicable-not attempted and the patient did not perform the activity before the current illness, exacerbation or injury. 10-Not Attempted due to Environmental Limitations-(lack of equipment, weather restraints, etc.). 88-Not Attempted due to Medical Conditions or Safety Concerns. Weight Bearing Right Lower Extremity: Right Weight Bearing/Tolerated Left Lower Extremity: Left Weight Bearing/Tolerated Exercises Supine Ex: D1 F/E UE, D2 F/E UE Supine Reps: 10 Treatments PT assists pt with D1 & D2 F/E for UE. Pt is repositioned on waffle cushion and resting at end of Rx. Pt has all needs met, call light in hand. Assessment Current Status: Fair Progress Pt continues to demonstrate a lot of tone during Rx but continues to try all tasks asked. PT Short Term Goals Short Term Goals Time Frame: May 10, 2020 Roll Left & Right: 2 Sit to lyin Lying to sitting on side of be: 2 Sit to stand: 2 Chair/mad-bs-aaeiu transfer: 2 PT Firer Boiler Goals Firer Boiler Goals PT Retirement Goals Time Frame: May 24, 2020 Roll Left & Right (QC): 3 Sit to Lying (QC): 3 Lying-Sitting on Side/Bed(QC): 3 Sit to Stand (QC): 3 Chair/Qtc-ub-Famhq Xfer(QC): 3 Toilet Transfer (QC): 3 Car Transfer (QC): 3 Does the Patient Walk: No and Walking Goal IS indicated Walk 10 feet (QC): 3 Walk 50ft with 2 Turns (QC): 88 Walk 150 ft (QC): 88 Walking 10ft on Uneven Surface: 88 1 Step (curb) (QC): 88 4 Steps (QC): 88 12 Steps (QC): 88 Picking up an Object (QC): 88 Does the Pt use WC or Scooter?: Yes Wheel 50 feet with 2 turns (QC: 2 Wheel 150 feet: 88 PT Plan Problem List Problem List: Activity Tolerance, Functional Strength, Safety, Balance, Transfer, Bed Mobility, ROM Treatment/Plan Treatment Plan: Continue Plan of Care Treatment Plan: Bed Mobility, Education, Functional Activity Vinicius, Functional Strength, Group Therapy, Gait, Safety, Therapeutic Exercise, Transfers Treatment Duration: May 24, 2020 Frequency: alen green 60 min per day Estimated Hrs Per Day: 1.5 hours per day Patient and/or Family Agrees t: Yes Safety Risks/Education Patient Education: Correct Positioning, Safety Issues Teaching Recipient: Patient Teaching Methods: Discussion Response to Teaching: Verbalize Understanding Time/GCodes Time In: 1320 Time Out: 1335 Total Billed Treatment Time: 15 Total Billed Treatment 1, FA (15m) FAVIO ADAIR PTA May 11, 2020 14:03
--- NOTE | 2020-05-11 14:10 | NUR ---
"RD ASSESSMENT PMHx: HTN; Parkinson's Disease; scoliosis PT INTERACTION: Pt was awake and pleasant during nutrition follow-up. Pt states she has been eating well since last assessment. Note avg PO intake 94% x4d, per chart review. Pt states no issues with nausea, vomiting, constipation, or diarrhea since last assessment. Note last BM was 05/09, and pt currently on bowel regimen of colace qd; senna BID; and miralax BID, per chart review. ABNORMAL NUTRITION-RELATED LAB VALUES LOW: Na 128; Cl 96 HIGH: AST 71 Est. kcal needs: 7139-6517 kcal | 25-30 kcal/kg Est. Pro needs: 50-60 g Pro | 1.0-1.2 g Pro/kg PES STATEMENT: Given current appetite and PO intake, no nutrition diagnosis at this time (NO-1.1) INTERVENTION: Continue with current diet order of DYS2 Mechanically Altered diet, with modifier of Dry Trays. Pt will need assistance in feeding. Will continue to follow and reassess as pt needs, intake, and status change. MONITOR/EVALUATE: PO Intake; Plan of Care; Hydration Status; Weight Status; Lab Values Laurel Merida, MS, RD, LD"
[2020-05-11 16:12] VITALS: BP 114/69
[2020-05-11] MEDS: ENOXAPARIN 30 MG/0.3 ML (LOVENOX) SYR SC SCH (16:23)
[2020-05-11 20:10] VITALS: BP 146/77
[2020-05-11] MEDS: PRIMIDONE 50 MG TAB (MYSOLINE) PO SCH (20:25)
[2020-05-11] MEDS: polyethylene glycoL POWDER 17 GM (MIRALAX) PACK PO SCH (20:25)
[2020-05-12 05:22] VITALS: BP_SYST 130; BP_SYST 170; BP_DIAS 76; BP_DIAS 92
--- NOTE | 2020-05-12 06:27 | PM&R Progress Note ---
Subjective HPI/CC On Admission Date Seen by Provider: May 12, 2020 Time Seen by Provider: 12:15 Subjective/Events-last exam Pt pretty tired right now since worked out with therapy Had a BM today before No major issues Sister at the bedside No falls but increased risk Disposition will be skilled care Overall debility is so chronic that likely no recovery is expected Checked meds and labs Conferred with RN Reviewed therapy notes Review of Systems General: Fatigue Musculoskeletal: leg pain Objective Exam Vital Signs Vital Signs Date Time Temp Pulse Resp B/P (MAP) Pulse Ox O2 Delivery O2 Flow Rate FiO2 05/12/20 09:00 98 Room Air 05/12/20 05:22 36.6 86 14 130/76 (94) Capillary Refill : Less Than 3 Seconds General Appearance: No Apparent Distress, WD/WN, Chronically ill, Thin HEENT: PERRL/EOMI, Normal ENT Inspection, Pharynx Normal Neck: Normal Inspection, Non Tender, Supple, Carotid Bruit, Limited Range of Motion Respiratory: Chest Non Tender, Lungs Clear, No Accessory Muscle Use, No Respiratory Distress, Decreased Breath Sounds Cardiovascular: Regular Rate, Rhythm, No Edema, No Gallop, No JVD, No Murmur, Normal Peripheral Pulses Gastrointestinal: Normal Bowel Sounds, No Organomegaly, No Pulsatile Mass, Non Tender, Soft Back: Normal Inspection, No CVA Tenderness, No Vertebral Tenderness, Decreased Range of Motion, Other (scoliosis) Extremity: Normal Capillary Refill, Normal Inspection, Normal Range of Motion, Non Tender, No Calf Tenderness, No Pedal Edema Neurologic/Psychiatric: Alert, Oriented x3, Abnormal Gait, Depressed Affect, Motor Weakness (Severe Tremor, generalized weakness, ) Skin: Normal Color, Warm/Dry Lymphatic: No Adenopathy Results/Procedures Lab Patient resulted labs reviewed. FIM Transfers Therapy Code Descriptions/Definitions Functional [place] Measure: 0=Not Assessed/NA 4=Minimal Assistance 1=Total Assistance 5=Supervision or Setup 2=Maximal Assistance 6=Modified [place] 3=Moderate Assistance 7=Complete IndependenceSCALE: Activities may be completed with or without assistive devices. 7-Ipvxvpcmbt-qkkkaab completes the activity by him/herself with no assistance from a helper. 5-Set-up or Clean-up Assistance-helper sets up or cleans up; patient completes activity. [place] assists only prior to or following the activity. 4-Supervision or Touching Assistance-helper provides verbal cues and/or touching/steadying and/or contact guard assistance as patient completes activity. Assistance may be provided throughout the activity or intermittently. 3-Partial/Moderate Assistance-helper does LESS THAN HALF the effort. [place] lifts, holds or supports trunk or limbs, but provides less than half the effort. 2-Substantial/Maximal Assistance-helper does MORE THAN HALF the effort. [place] lifts or holds trunk or limbs and provides more than half the effort. 5-Ykjmsaakz-ppkhlq does ALL the effort. Patient does none of the effort to complete the activity. Or, the assistance of 2 or more helpers is required for the patient to complete the activity. If activity was not attempted, code reason: 7-Patient Refused. 9-Not Applicable-not attempted and the patient did not perform the activity before the current illness, exacerbation or injury. 10-Not Attempted due to Environmental Limitations-(lack of equipment, weather restraints, etc.). 88-Not Attempted due to Medical Conditions or Safety Concerns. Roll Left to Right (QC): 1 Sit to Lying (QC): 1 Sit to Stand (QC): 1 Chair/Zkf-ns-Yzufl Xfer(QC): 1 Car Transfer (QC): 1 Gait Training Does the Patient Walk?: No and Walking Goal NOT indicated Walk 10 feet (QC): 88 Walk 50 ft with 2 Turns(QC): 88 Walk 150 ft (QC): 88 Walking 10ft/uneven surface-QC: 88 Wheelchair Training Does the Pt Use a Wheelchair?: Yes Wheel 50 ft with 2 turns (QC): 1 Wheel 150 ft (QC): 1 Type of Wheelchair: Manual Stair Training 1 Step (curb) (QC): 88 4 Steps (QC): 88 12 Steps (QC): 88 Balance Picking up an Object (QC): 88 ADL-Treatment Eating (QC): 2 (Max per nursing.) Oral Hygiene (QC): 7 (Pt. declines putting in dentures.) Shower/Bathe Self (QC): 2 (Pt. is able to pat at chest with washcloth. Pt. begins having significant tremors. She was able to wash her face as well. OT washed all other parts in shower.) Upper Body Dressing (QC): 2 (Pt. able to assist with threading bilateral arms into shirt. OT dons over head and over torso.) Lower Body Dressing (QC): 1 On/Off Footwear (QC): 1 Toileting Hygiene (QC): 1 (Pt. incontinent of bowel and bladder.) Toilet Transfer (QC): 1 Assessment/Plan Assessment and Plan Assess & Plan/Chief Complaint Assessment: PD Hyponatremia due to SIADH Constipation periodic Scoliosis Elevated AST Falls Cognitive deficit "Freezing up" episodes initiated on Amantadine and seems to be responding Plan: Fluid restrict IRF protocol BM regimen Home meds Lovenox Amantadine Disposition discussion at team meeting Needs fci at discharge (1) Parkinson disease Status: Chronic (2) Thrombocytosis Status: Resolved Resolution Date/Time: 05/03/20 @ 10:33 (3) Elevated AST (SGOT) Status: Acute (4) DVT prophylaxis Status: Acute (5) Frequent falls Status: Acute (6) Tremor Status: Chronic (7) Constipation Status: Acute (8) Scoliosis (9) Hyponatremia Status: Acute (10) Syncope Status: Acute HAYDER VALLES DO May 12, 2020 06:27
[2020-05-12] MEDS: VITAMIN D3 25 MCG (1,000 UNITS) TABLET PO SCH ×2 (08:24→20:54)
[2020-05-12] MEDS: DOCUSATE SODIUM 100 MG (COLACE) CAP PO SCH (08:24)
[2020-05-12] MEDS: amLODIPine 5 MG (NORVASC) TAB PO SCH (08:24)
[2020-05-12] MEDS: CALCIUM CARBONATE 600 MG (CALCARB) TAB PO SCH ×2 (08:24→17:26)
[2020-05-12] MEDS: PROPRANOLOL 20 MG (INDERAL) TABLET PO SCH ×2 (08:24→20:54)
[2020-05-12] MEDS: SINEMET 25/100 (CARBIDOPA/LEVODOPA) TAB PO SCH ×3 (08:24→20:55)
[2020-05-12] MEDS: FLUoxetine HCL 20 MG (PROzac) CAP PO SCH (08:24)
[2020-05-12] MEDS: SENNA W/DOCUSATE (SENOKOT S) TABLET PO SCH ×2 (08:25→20:56)
[2020-05-12] MEDS: AMANTADINE 100 MG (SYMMETREL) CAP PO SCH ×2 (08:27→20:54)
[2020-05-12] MEDS: SODIUM CHLORIDE 1 GM TABLET PO SCH ×2 (08:27→20:54)
--- NOTE | 2020-05-12 11:14 | Physical Therapy Daily Note ---
PT Daily Note-Current Subjective Patient in recliner pre tx, agrees to PT, has no complaints of pain. Will be co-treating with OT due to poor patient mobility, strength, endurance, severely increased extensor muscle tone, balance, the need to coordinate UE and LE during activity, and to decrease risk of falls. Appearance Patient in bed post tx with nurse call, phone, tray, all needs met, family in the room. Mental Status Patient Orientation: Person, Unable to Assess, [place] Transfers SCALE: Activities may be completed with or without assistive devices. 7-Qyndbpifea-vowtiim completes the activity by him/herself with no assistance from a helper. 5-Set-up or Clean-up Assistance-helper sets up or cleans up; patient completes activity. [place] assists only prior to or following the activity. 4-Supervision or Touching Assistance-helper provides verbal cues and/or touching/steadying and/or contact guard assistance as patient completes activity. Assistance may be provided throughout the activity or intermittently. 3-Partial/Moderate Assistance-helper does LESS THAN HALF the effort. [place] lifts, holds or supports trunk or limbs, but provides less than half the effort. 2-Substantial/Maximal Assistance-helper does MORE THAN HALF the effort. [place] lifts or holds trunk or limbs and provides more than half the effort. 6-Tptpdfcmi-fwhtss does ALL the effort. Patient does none of the effort to complete the activity. Or, the assistance of 2 or more helpers is required for the patient to complete the activity. If activity was not attempted, code reason: 7-Patient Refused. 9-Not Applicable-not attempted and the patient did not perform the activity before the current illness, exacerbation or injury. 10-Not Attempted due to Environmental Limitations-(lack of equipment, weather restraints, etc.). 88-Not Attempted due to Medical Conditions or Safety Concerns. Roll Left & Right (QC): 1 Sit to Lying (QC): 1 Sit to Stand (QC): 1 Chair/Vux-yh-Arxbw Xfer(QC): 1 Toilet Transfer (QC): 1 Transfer patient to toilet, then to WC pulling up pants on the way and finish dressing, help patient propel WC to therapy gym (100' max assist), standing in parallel bars and ambulated a few feet forwardx3 with max assist (extensor tone make patient stand on her toes, needs assist to stabilize her ankles), WC back to room, transfer to bed and lay down, patient is in complete strong extension on the transfer back to bed and she cannot sit without sliding off, she is just dependently rotated into the bed. Also, after transfer to bed, changed brief due to BM, had to help roll a couple times for cleaning and replacing brief. Weight Bearing Right Lower Extremity: Right Weight Bearing/Tolerated Left Lower Extremity: Left Weight Bearing/Tolerated Exercises BLE stretching in all planes. Treatments bed mobility and transfers, toileting, dressing, standing and ambulation, WC mobility, BLE stretching. PT performed bed mobility and transfers, ambulation, WC mobility, standing, assist with trunk control and positioning during dressing, rolling during cleaning, OT worked on dressing, toileting, cleaning, UE positioning and safety during mobility. Assessment Current Status: Poor Progress no change in mobility, extensor tone makes progress difficult PT Short Term Goals Short Term Goals Time Frame: May 10, 2020 Roll Left & Right: 2 Sit to lyin Lying to sitting on side of be: 2 Sit to stand: 2 Chair/ynk-nn-awyqe transfer: 2 PT Discotheque Dancer Goals Care Home Goals PT Discotheque Dancer Goals Time Frame: May 24, 2020 Roll Left & Right (QC): 3 Sit to Lying (QC): 3 Lying-Sitting on Side/Bed(QC): 3 Sit to Stand (QC): 3 Chair/Uza-rv-Femzm Xfer(QC): 3 Toilet Transfer (QC): 3 Car Transfer (QC): 3 Does the Patient Walk: No and Walking Goal IS indicated Walk 10 feet (QC): 3 Walk 50ft with 2 Turns (QC): 88 Walk 150 ft (QC): 88 Walking 10ft on Uneven Surface: 88 1 Step (curb) (QC): 88 4 Steps (QC): 88 12 Steps (QC): 88 Picking up an Object (QC): 88 Does the Pt use WC or Scooter?: Yes Wheel 50 feet with 2 turns (QC: 2 Wheel 150 feet: 88 PT Plan Problem List Problem List: Activity Tolerance, Functional Strength, Safety, Balance, Gait, Transfer, Bed Mobility, ROM Treatment/Plan Treatment Plan: Continue Plan of Care Treatment Plan: Bed Mobility, Education, Functional Activity Vinicius, Functional Strength, Group Therapy, Gait, Safety, Therapeutic Exercise, Transfers Treatment Duration: May 24, 2020 Frequency: covid waiver 60 min per day Estimated Hrs Per Day: 1.5 hours per day Patient and/or Family Agrees t: Yes Safety Risks/Education Patient Education: Gait Training, Transfer Techniques, Correct Positioning, W/C Management, Safety Issues Teaching Recipient: Patient Teaching Methods: Demonstration, Discussion Response to Teaching: Reinforcement Needed Time/GCodes Time In: 914 Time Out: 1015 Total Billed Treatment Time: 60 Total Billed Treatment 1 visit FA 45' EX 15' co-treated with OT for 45' from [id number] MARIA G ARORA PT May 12, 2020 11:14
--- NOTE | 2020-05-12 11:29 | Occupational Ther Daily Note ---
OT Current Status-Daily Note Subjective Pt alert, sitting in recliner. Pt appears to be in better spirits today. Reports better night's sleep. Pt agrees to therapy. No c/o pain. Pain Numeric Pain Scale: 0-No Pain Mental Status/Objective Patient Orientation: Person, Place, Time, Situation ADL-Treatment Co-treat with PT ([id number]), skills of 2 clinicians required due to pts medical complexity, dependent transfers, decreased activity tolerance and increased extensor tone. PT working on transfers, decreasing tone and standing. OT working on ADLs, decreasing tone and positioning of B UE during standing/transfers. Pt incontinent of bowel and bladder. Assist x2 for toileting transfer and hygiene. Assist x2 for transfer from recliner to BSC. Dependent for lower body dressing. Max A for upper body dressing. Max A donning/doffing footwear. Pt continues to demonstrate increased extensor tone throughout body. Able to break up tone with hip flexion though requires max A to complete this. After therapy, pt incontinent of bowel and bladder required assist x2 for cleansing and changing brief in bed. Pt left in care of PT. Therapy Code Descriptions/Definitions Functional [place] Measure: 0=Not Assessed/NA 4=Minimal Assistance 1=Total Assistance 5=Supervision or Setup 2=Maximal Assistance 6=Modified [place] 3=Moderate Assistance 7=Complete IndependenceSCALE: Activities may be completed with or without assistive devices. 4-Wtvursansi-gojxnum completes the activity by him/herself with no assistance from a helper. 5-Set-up or Clean-up Assistance-helper sets up or cleans up; patient completes activity. [place] assists only prior to or following the activity. 4-Supervision or Touching Assistance-helper provides verbal cues and/or touching/steadying and/or contact guard assistance as patient completes activity. Assistance may be provided throughout the activity or intermittently. 3-Partial/Moderate Assistance-helper does LESS THAN HALF the effort. [place] lifts, holds or supports trunk or limbs, but provides less than half the effort. 2-Substantial/Maximal Assistance-helper does MORE THAN HALF the effort. [place] lifts or holds trunk or limbs and provides more than half the effort. 8-Tulgjlrgi-gqckea does ALL the effort. Patient does none of the effort to complete the activity. Or, the assistance of 2 or more helpers is required for the patient to complete the activity. If activity was not attempted, code reason: 7-Patient Refused. 9-Not Applicable-not attempted and the patient did not perform the activity before the current illness, exacerbation or injury. 10-Not Attempted due to Environmental Limitations-(lack of equipment, weather restraints, etc.). 88-Not Attempted due to Medical Conditions or Safety Concerns. Upper Body Dressing (QC): 2 Lower Body Dressing (QC): 1 On/Off Footwear: 2 Toileting Hygiene (QC): 1 Toilet Transfer (QC): 1 Other Treatment Assist x2 to practice billing associate parallel bars, assist to position B UE then pt able to grasp and brace self with extended arm while working on standing flat footed. Assist needed to maintain upright posture. See PT notes for progress. OT Short Term Goals Short Term Goals Time Frame: May 17, 2020 Eatin Oral hygiene: 3 Toileting hygiene: 2 Shower/bathe self: 2 Upper body dressin Lower body dressin Putting on/taking off footwear: 3 OT Fci Goals Fci Goals Time Frame: May 31, 2020 Eating (QC): 4 Oral Hygiene (QC): 4 Toileting Hygiene (QC): 3 Shower/Bathe Self (QC): 3 Upper Body Dressing (QC): 4 Lower Body Dressing (QC): 3 On/Off Footwear (QC): 3 Additional Goals: 1-Demonstrate ADL Tasks, 2-Verbalize Understanding, 3- ImproveStrength/Vinicius 1=Demonstrate adherence to instructed precautions during ADL tasks. 2=Patient will verbalize/demonstrate understanding of assistive dev ices/modifications for ADL. 3=Patient will improve strength/tolerance for activity to enable patient to perform ADL's. OT Education/Plan Problem List/Assessment Assessment: Decreased Activ Tolerance, Decreased Safety Aware, Decreased UE Strength, Dependent Transfers, Impaired Bed Mobility, Impaired Cognition, Impaired Coordination, Impaired Funct Balance, Impaired I ADL's, Impaired Self- Care Skills Discharge Recommendations Plan/Recommendations: Continue POC Treatment Plan/Plan of Care Patient would benefit from OT for education, treatment and training to promote independence in ADL's, mobility, safety and/or upper extremity function for ADL's. Plan of Care: ADL Retraining, Functional Mobility, UE Funct Exercise/Act Treatment Duration: May 31, 2020 Frequency: Modified Program (IRF) Estimated Hrs Per Day: Other (modified COVID waiver-60minutes/day) Agreement: Yes Rehab Potential: Fair Time/GCodes Start Time: 09:00 Stop Time: 10:00 Total Time Billed (hr/min): 60 Billed Treatment Time 1 visit-ADL 2 (30 min) NM 2 (30 min) co-treat with PT ([id number]) SHAWN VALERIO May 12, 2020 11:29
--- NOTE | 2020-05-12 11:48 | Speech Therapy Daily Note ---
Speech Daily Progress Note Subjective Date Seen by Provider: May 12, 2020 Time Seen by Provider: 00:30 Patient was resting in her bed when I entered her room. Sister was present. Objective Patient responded to personal questions related to her day at 80%. Assessment Assessment Current Status: Fair Progress Treatment Plan Continue Plan of Care Speech Short Term Goals Short Term Goals Short Term Goals 1) Patient will answer simple y/n questions with 80% given minimal cues. 2) Patient will demo completion of "fill in the blank" sentences at the initial level at 80% with minimal cues. 3) Patient will recall information at the 5 and 10 minute increments at 80% with minimal cues. Speech Correction Goals Correction Goals Patient will improve cognitive-communication necessary for safety and daily ca ing tasks with minimal assist. Speech-Plan Patient/Family Goals Patient/Family Goals: Patient is scheduled to d/c to SNF on 05/16/2020. Treatment Plan Speech Therapy Treatment Plan: Continue Plan of Care Treatment Duration: May 12, 2020 Frequency: 4 times per week (Patient will receive skilled ST 4-5 times per week.) Estimated Hrs Per Day: .5 hour per day Rehab Potential: Fair Barriers to Learning: Patient's medical status Pt/Family Agrees to Plan: Yes Safety Risks/Education Teaching Recipient: Patient, Family Teaching Methods: Discussion Response to Teaching: Verbalize Understanding Education Topics Provided: Continued communication of wants/needs Time Speech Therapy Time In: 11:30 Speech Therapy Time Out: 12:00 Total Billed Time: 30 Billed Treatment Time [address] May 12, 2020 11:48
--- NOTE | 2020-05-12 13:14 | Physical Therapy Daily Note ---
PT Daily Note-Current Subjective Patient in bed pre tx, agrees to PT, has no complaints of pain. Appearance Patient in recliner post tx with nurse call, phone, tray, all needs met, family in the room. Mental Status Patient Orientation: Person, Unable to Assess, [place] Transfers SCALE: Activities may be completed with or without assistive devices. 2-Vcylhgwaru-jljeufo completes the activity by him/herself with no assistance from a helper. 5-Set-up or Clean-up Assistance-helper sets up or cleans up; patient completes activity. [place] assists only prior to or following the activity. 4-Supervision or Touching Assistance-helper provides verbal cues and/or touching/steadying and/or contact guard assistance as patient completes activity. Assistance may be provided throughout the activity or intermittently. 3-Partial/Moderate Assistance-helper does LESS THAN HALF the effort. [place] lifts, holds or supports trunk or limbs, but provides less than half the effort. 2-Substantial/Maximal Assistance-helper does MORE THAN HALF the effort. [place] lifts or holds trunk or limbs and provides more than half the effort. 6-Ovdimphwx-cmafxn does ALL the effort. Patient does none of the effort to complete the activity. Or, the assistance of 2 or more helpers is required for the patient to complete the activity. If activity was not attempted, code reason: 7-Patient Refused. 9-Not Applicable-not attempted and the patient did not perform the activity before the current illness, exacerbation or injury. 10-Not Attempted due to Environmental Limitations-(lack of equipment, weather restraints, etc.). 88-Not Attempted due to Medical Conditions or Safety Concerns. Roll Left & Right (QC): 1 Lying to Sitting/Side of Bed(Q: 1 Sit to Stand (QC): 1 Chair/Sqg-qu-Qmtga Xfer(QC): 1 Patient dependent for bed mobility and transfer, rolls to right side, supine to sit, stand pivot transfer to recliner. Patient is able to bear weight on her legs only because of her strong extensor tone but you have to guard her ankles during the transfer. Patient also needs careful guarding when sitting at the side of the bed and after sitting initially on the recliner because she may scoot off due to her trunk extension. Patient scooted back in to recliner and positioned with pillows and legs elevated. Weight Bearing Right Lower Extremity: Right Weight Bearing/Tolerated Left Lower Extremity: Left Weight Bearing/Tolerated Treatments bed mobility and transfers, positioning Assessment Current Status: Poor Progress high fall risk, no change in mobility PT Short Term Goals Short Term Goals Time Frame: May 10, 2020 Roll Left & Right: 2 Sit to lyin Lying to sitting on side of be: 2 Sit to stand: 2 Chair/jmo-si-azvnf transfer: 2 PT Yacht Captain Goals Yacht Captain Goals PT Senior Living Goals Time Frame: May 24, 2020 Roll Left & Right (QC): 3 Sit to Lying (QC): 3 Lying-Sitting on Side/Bed(QC): 3 Sit to Stand (QC): 3 Chair/Kcr-zr-Trnbg Xfer(QC): 3 Toilet Transfer (QC): 3 Car Transfer (QC): 3 Does the Patient Walk: No and Walking Goal IS indicated Walk 10 feet (QC): 3 Walk 50ft with 2 Turns (QC): 88 Walk 150 ft (QC): 88 Walking 10ft on Uneven Surface: 88 1 Step (curb) (QC): 88 4 Steps (QC): 88 12 Steps (QC): 88 Picking up an Object (QC): 88 Does the Pt use WC or Scooter?: Yes Wheel 50 feet with 2 turns (QC: 2 Wheel 150 feet: 88 PT Plan Problem List Problem List: Activity Tolerance, Functional Strength, Safety, Balance, Gait, Transfer, Bed Mobility, ROM Treatment/Plan Treatment Plan: Continue Plan of Care Treatment Plan: Bed Mobility, Education, Functional Activity Vinicius, Functional Strength, Group Therapy, Gait, Safety, Therapeutic Exercise, Transfers Treatment Duration: May 24, 2020 Frequency: alen green 60 min per day Estimated Hrs Per Day: 1.5 hours per day Patient and/or Family Agrees t: Yes Safety Risks/Education Patient Education: Transfer Techniques, Correct Positioning, Safety Issues Teaching Recipient: Patient Teaching Methods: Demonstration, Discussion Response to Teaching: Reinforcement Needed Time/GCodes Time In: 1300 Time Out: 1315 Total Billed Treatment Time: 15 Total Billed Treatment 1 visit FA 15' MARIA G ARORA PT May 12, 2020 13:14
--- NOTE | 2020-05-12 13:23 | Occupational Ther Daily Note ---
OT Current Status-Daily Note Subjective Pt. asleep in bed when OT entered room. Pt agreed to treatment once awake. No c/o pain. Mental Status/Objective Patient Orientation: Person, Place, Time ADL-Treatment Therapy Code Descriptions/Definitions Functional [place] Measure: 0=Not Assessed/NA 4=Minimal Assistance 1=Total Assistance 5=Supervision or Setup 2=Maximal Assistance 6=Modified [place] 3=Moderate Assistance 7=Complete IndependenceSCALE: Activities may be completed with or without assistive devices. 8-Kelbjffuaa-wwqaavx completes the activity by him/herself with no assistance from a helper. 5-Set-up or Clean-up Assistance-helper sets up or cleans up; patient completes activity. [place] assists only prior to or following the activity. 4-Supervision or Touching Assistance-helper provides verbal cues and/or touching/steadying and/or contact guard assistance as patient completes activity. Assistance may be provided throughout the activity or intermittently. 3-Partial/Moderate Assistance-helper does LESS THAN HALF the effort. [place] lifts, holds or supports trunk or limbs, but provides less than half the effort. 2-Substantial/Maximal Assistance-helper does MORE THAN HALF the effort. [place] lifts or holds trunk or limbs and provides more than half the effort. 6-Phtaynzfe-bixlhy does ALL the effort. Patient does none of the effort to complete the activity. Or, the assistance of 2 or more helpers is required for the patient to complete the activity. If activity was not attempted, code reason: 7-Patient Refused. 9-Not Applicable-not attempted and the patient did not perform the activity before the current illness, exacerbation or injury. 10-Not Attempted due to Environmental Limitations-(lack of equipment, weather restraints, etc.). 88-Not Attempted due to Medical Conditions or Safety Concerns. Other Treatment Pt required assist x2 for bed mobility to check brief. Pt. remained in bed during PROM exercises of B UE to decrease tone. Pt required assist x2 for supine-sit. Pt. dependent transferred to recliner and positioned for comfort. Pt. in recliner with sister in room when therapy left. All needs met. OT Short Term Goals Short Term Goals Time Frame: May 17, 2020 Eatin Oral hygiene: 3 Toileting hygiene: 2 Shower/bathe self: 2 Upper body dressin Lower body dressin Putting on/taking off footwear: 3 OT Research Geneticist Goals Skilled Nursing Goals Time Frame: May 31, 2020 Eating (QC): 4 Oral Hygiene (QC): 4 Toileting Hygiene (QC): 3 Shower/Bathe Self (QC): 3 Upper Body Dressing (QC): 4 Lower Body Dressing (QC): 3 On/Off Footwear (QC): 3 Additional Goals: 1-Demonstrate ADL Tasks, 2-Verbalize Understanding, 3- ImproveStrength/Vinicius 1=Demonstrate adherence to instructed precautions during ADL tasks. 2=Patient will verbalize/demonstrate understanding of assistive devices/ modifications for ADL. 3=Patient will improve strength/tolerance for activity to enable patient to perform ADL's. OT Education/Plan Problem List/Assessment Assessment: Decreased Activ Tolerance, Decreased Safety Aware, Decreased UE Strength, Dependent Transfers, Impaired Bed Mobility, Impaired Coordination, Impaired Funct Balance, Impaired I ADL's, Impaired Self-Care Skills, Restricted Funct UE ROM Discharge Recommendations Plan/Recommendations: Continue POC Therapy Discharge Recommendati: 24 Hour Supervision Treatment Plan/Plan of Care Patient would benefit from OT for education, treatment and training to promote independence in ADL's, mobility, safety and/or upper extremity function for ADL's. Plan of Care: ADL Retraining, Functional Mobility, UE Funct Exercise/Act Treatment Duration: May 31, 2020 Frequency: Modified Program (IRF) Estimated Hrs Per Day: Other (modified COVID waiver-60minutes/day) Agreement: Yes Rehab Potential: Fair Time/GCodes Start Time: 12:45 Stop Time: 13:00 Total Time Billed (hr/min): 15 Billed Treatment Time 1, visit, NMx1 (15 minutes) SHAWN VALERIO May 12, 2020 13:23
[2020-05-12] MEDS: ENOXAPARIN 30 MG/0.3 ML (LOVENOX) SYR SC SCH (16:04)
[2020-05-12 16:26] VITALS: BP 120/72
--- NOTE | 2020-05-12 19:10 | NUR ---
bedside report received from SUNITHA JC, assume care of pt
[2020-05-12] MEDS: PRIMIDONE 50 MG TAB (MYSOLINE) PO SCH (20:54)
--- NOTE | 2020-05-12 20:54 | NUR ---
pt took 1 Senokot but refused miralax, stating had stool today, takes pills one at a time with pudding
[2020-05-12] MEDS: polyethylene glycoL POWDER 17 GM (MIRALAX) PACK PO SCH (21:05)
[2020-05-13 05:42] VITALS: BP 152/80
--- NOTE | 2020-05-13 05:55 | PM&R Progress Note ---
Subjective HPI/CC On Admission Date Seen by Provider: May 13, 2020 Time Seen by Provider: 06:00 Subjective/Events-last exam Pt awake and alert this morning on early rounds 0600 BM regular No major issues No pain reported No falls but increased risk Disposition will be skilled care at [place] Overall debility is so chronic that likely no recovery is expected Checked meds and labs Conferred with RN Reviewed therapy notes Review of Systems Neurological: Weakness, Numbness, Incoordination Objective Exam Vital Signs Vital Signs Date Time Temp Pulse Resp B/P (MAP) Pulse Ox O2 Delivery O2 Flow Rate FiO2 05/13/20 09:00 Room Air 05/13/20 08:00 99 142/68 (92) 05/13/20 05:42 36.4 16 98 Capillary Refill : Less Than 3 Seconds General Appearance: No Apparent Distress, WD/WN, Chronically ill, Thin HEENT: PERRL/EOMI, Normal ENT Inspection, Pharynx Normal Neck: Normal Inspection, Non Tender, Supple, Carotid Bruit, Limited Range of Motion Respiratory: Chest Non Tender, Lungs Clear, No Accessory Muscle Use, No Respiratory Distress, Decreased Breath Sounds Cardiovascular: Regular Rate, Rhythm, No Edema, No Gallop, No JVD, No Murmur, Normal Peripheral Pulses Gastrointestinal: Normal Bowel Sounds, No Organomegaly, No Pulsatile Mass, Non Tender, Soft Back: Normal Inspection, No CVA Tenderness, No Vertebral Tenderness, Decreased Range of Motion, Other (scoliosis) Extremity: Normal Capillary Refill, Normal Inspection, Normal Range of Motion, Non Tender, No Calf Tenderness, No Pedal Edema Neurologic/Psychiatric: Alert, Oriented x3, Abnormal Gait, Depressed Affect, Motor Weakness (Severe Tremor, generalized weakness, ) Skin: Normal Color, Warm/Dry Lymphatic: No Adenopathy Results/Procedures Lab Patient resulted labs reviewed. FIM Transfers Therapy Code Descriptions/Definitions Functional [place] Measure: 0=Not Assessed/NA 4=Minimal Assistance 1=Total Assistance 5=Supervision or Setup 2=Maximal Assistance 6=Modified [place] 3=Moderate Assistance 7=Complete IndependenceSCALE: Activities may be completed with or without assistive devices. 3-Pzgoekmbbx-qmiujsb completes the activity by him/herself with no assistance from a helper. 5-Set-up or Clean-up Assistance-helper sets up or cleans up; patient completes activity. [place] assists only prior to or following the activity. 4-Supervision or Touching Assistance-helper provides verbal cues and/or touching/steadying and/or contact guard assistance as patient completes activity. Assistance may be provided throughout the activity or intermittently. 3-Partial/Moderate Assistance-helper does LESS THAN HALF the effort. [place] lifts, holds or supports trunk or limbs, but provides less than half the effort. 2-Substantial/Maximal Assistance-helper does MORE THAN HALF the effort. [place] lifts or holds trunk or limbs and provides more than half the effort. 0-Inrrpzbwm-rivutb does ALL the effort. Patient does none of the effort to complete the activity. Or, the assistance of 2 or more helpers is required for the patient to complete the activity. If activity was not attempted, code reason: 7-Patient Refused. 9-Not Applicable-not attempted and the patient did not perform the activity before the current illness, exacerbation or injury. 10-Not Attempted due to Environmental Limitations-(lack of equipment, weather restraints, etc.). 88-Not Attempted due to Medical Conditions or Safety Concerns. Roll Left to Right (QC): 1 Sit to Lying (QC): 1 Sit to Stand (QC): 1 Chair/Bzc-ao-Trlic Xfer(QC): 1 Car Transfer (QC): 1 Gait Training Does the Patient Walk?: No and Walking Goal NOT indicated Walk 10 feet (QC): 88 Walk 50 ft with 2 Turns(QC): 88 Walk 150 ft (QC): 88 Walking 10ft/uneven surface-QC: 88 Wheelchair Training Does the Pt Use a Wheelchair?: Yes Wheel 50 ft with 2 turns (QC): 1 Wheel 150 ft (QC): 1 Type of Wheelchair: Manual Stair Training 1 Step (curb) (QC): 88 4 Steps (QC): 88 12 Steps (QC): 88 Balance Picking up an Object (QC): 88 ADL-Treatment Eating (QC): 2 (Max per nursing.) Oral Hygiene (QC): 7 (Pt. declines putting in dentures.) Shower/Bathe Self (QC): 2 (Pt. is able to pat at chest with washcloth. Pt. begins having significant tremors. She was able to wash her face as well. OT washed all other parts in shower.) Upper Body Dressing (QC): 2 Lower Body Dressing (QC): 1 On/Off Footwear (QC): 2 Toileting Hygiene (QC): 1 Toilet Transfer (QC): 1 Assessment/Plan Assessment and Plan Assess & Plan/Chief Complaint Assessment: PD Hyponatremia due to SIADH Constipation periodic Scoliosis Elevated AST Falls Cognitive deficit "Freezing up" episodes initiated on Amantadine and seems to be responding Plan: Fluid restrict IRF protocol BM regimen Home meds Lovenox Amantadine Needs chcf at discharge (1) Parkinson disease Status: Chronic (2) Thrombocytosis Status: Resolved Resolution Date/Time: 05/03/20 @ 10:33 (3) Elevated AST (SGOT) Status: Acute (4) DVT prophylaxis Status: Acute (5) Frequent falls Status: Acute (6) Tremor Status: Chronic (7) Constipation Status: Acute (8) Scoliosis (9) Hyponatremia Status: Acute (10) Syncope Status: Acute HAYDER VALLES DO May 13, 2020 05:55
[2020-05-13 08:00] VITALS: BP 142/68
[2020-05-13] MEDS: CALCIUM CARBONATE 600 MG (CALCARB) TAB PO SCH ×2 (08:52→17:59)
[2020-05-13] MEDS: PROPRANOLOL 20 MG (INDERAL) TABLET PO SCH ×2 (08:52→21:16)
[2020-05-13] MEDS: amLODIPine 5 MG (NORVASC) TAB PO SCH (08:52)
[2020-05-13] MEDS: VITAMIN D3 25 MCG (1,000 UNITS) TABLET PO SCH ×2 (08:52→21:16)
[2020-05-13] MEDS: SINEMET 25/100 (CARBIDOPA/LEVODOPA) TAB PO SCH ×3 (08:52→21:17)
[2020-05-13] MEDS: FLUoxetine HCL 20 MG (PROzac) CAP PO SCH (08:52)
[2020-05-13] MEDS: DOCUSATE SODIUM 100 MG (COLACE) CAP PO SCH (08:52)
[2020-05-13] MEDS: SENNA W/DOCUSATE (SENOKOT S) TABLET PO SCH ×2 (08:53→21:16)
[2020-05-13] MEDS: AMANTADINE 100 MG (SYMMETREL) CAP PO SCH ×2 (08:53→21:16)
[2020-05-13] MEDS: SODIUM CHLORIDE 1 GM TABLET PO SCH ×2 (08:53→21:16)
--- NOTE | 2020-05-13 09:27 | Physical Therapy Daily Note ---
PT Daily Note-Current Subjective pt. smiles, nystagmus noted, agrees to ther ex in bed declines sitting up in recliner Pain Location: No Pain Reported Mental Status Patient Orientation: Confused Attachments: SCD's Transfers SCALE: Activities may be completed with or without assistive devices. 8-Fovbrqpzpk-hblbdqw completes the activity by him/herself with no assistance from a helper. 5-Set-up or Clean-up Assistance-helper sets up or cleans up; patient completes activity. [place] assists only prior to or following the activity. 4-Supervision or Touching Assistance-helper provides verbal cues and/or touching/steadying and/or contact guard assistance as patient completes activity. Assistance may be provided throughout the activity or intermittently. 3-Partial/Moderate Assistance-helper does LESS THAN HALF the effort. [place] lifts, holds or supports trunk or limbs, but provides less than half the effort. 2-Substantial/Maximal Assistance-helper does MORE THAN HALF the effort. [place] lifts or holds trunk or limbs and provides more than half the effort. 8-Guiudvaqx-gqdyto does ALL the effort. Patient does none of the effort to complete the activity. Or, the assistance of 2 or more helpers is required for the patient to complete the activity. If activity was not attempted, code reason: 7-Patient Refused. 9-Not Applicable-not attempted and the patient did not perform the activity before the current illness, exacerbation or injury. 10-Not Attempted due to Environmental Limitations-(lack of equipment, weather restraints, etc.). 88-Not Attempted due to Medical Conditions or Safety Concerns. Roll Left & Right (QC): 2 Weight Bearing Right Lower Extremity: Right Weight Bearing/Tolerated Left Lower Extremity: Left Weight Bearing/Tolerated Exercises Supine Ex: Ankle pumps (HC stretches 4 x 20s), Rolling, Heel Slides, Scooting, Straight leg raise, Hip abd/add Supine Reps: 15 Assessment Current Status: Poor Progress very rigid , difficult to range, confused PT Short Term Goals Short Term Goals Time Frame: May 10, 2020 Roll Left & Right: 2 Sit to lyin Lying to sitting on side of be: 2 Sit to stand: 2 Chair/hrn-lj-ixvcv transfer: 2 PT Associate Genetics Professor Goals Retirement Goals PT Retirement Goals Time Frame: May 24, 2020 Roll Left & Right (QC): 3 Sit to Lying (QC): 3 Lying-Sitting on Side/Bed(QC): 3 Sit to Stand (QC): 3 Chair/Tma-vd-Uumhc Xfer(QC): 3 Toilet Transfer (QC): 3 Car Transfer (QC): 3 Does the Patient Walk: No and Walking Goal IS indicated Walk 10 feet (QC): 3 Walk 50ft with 2 Turns (QC): 88 Walk 150 ft (QC): 88 Walking 10ft on Uneven Surface: 88 1 Step (curb) (QC): 88 4 Steps (QC): 88 12 Steps (QC): 88 Picking up an Object (QC): 88 Does the Pt use WC or Scooter?: Yes Wheel 50 feet with 2 turns (QC: 2 Wheel 150 feet: 88 PT Plan Treatment/Plan Treatment Plan: Continue Plan of Care Treatment Plan: Bed Mobility, Education, Functional Activity Vinicius, Functional Strength, Group Therapy, Gait, Safety, Therapeutic Exercise, Transfers Treatment Duration: May 24, 2020 Frequency: alen green 60 min per day Estimated Hrs Per Day: 1.5 hours per day Patient and/or Family Agrees t: Yes Time/GCodes Time In: 855 Time Out: 915 Total Billed Treatment Time: 20 Total Billed Treatment 1,EX20m KERA CHAVIS NURSE CASE MANAGER May 13, 2020 09:27
[2020-05-13] MEDS: ENOXAPARIN 30 MG/0.3 ML (LOVENOX) SYR SC SCH (16:18)
[2020-05-13 17:44] VITALS: BP 168/81
[2020-05-13] MEDS: polyethylene glycoL POWDER 17 GM (MIRALAX) PACK PO SCH (19:43)
[2020-05-13] MEDS: PRIMIDONE 50 MG TAB (MYSOLINE) PO SCH (21:16)
[2020-05-14 06:41] VITALS: BP 162/88
[2020-05-14] MEDS: DOCUSATE SODIUM 100 MG (COLACE) CAP PO SCH (09:33)
[2020-05-14] MEDS: FLUoxetine HCL 20 MG (PROzac) CAP PO SCH (09:33)
[2020-05-14] MEDS: VITAMIN D3 25 MCG (1,000 UNITS) TABLET PO SCH ×2 (09:33→20:43)
[2020-05-14] MEDS: amLODIPine 5 MG (NORVASC) TAB PO SCH (09:33)
[2020-05-14] MEDS: CALCIUM CARBONATE 600 MG (CALCARB) TAB PO SCH ×2 (09:33→18:37)
[2020-05-14] MEDS: SENNA W/DOCUSATE (SENOKOT S) TABLET PO SCH ×2 (09:33→20:43)
[2020-05-14] MEDS: SODIUM CHLORIDE 1 GM TABLET PO SCH ×2 (09:34→20:44)
[2020-05-14] MEDS: AMANTADINE 100 MG (SYMMETREL) CAP PO SCH ×2 (09:34→20:44)
[2020-05-14] MEDS: SINEMET 25/100 (CARBIDOPA/LEVODOPA) TAB PO SCH ×3 (09:35→20:45)
[2020-05-14] MEDS: PROPRANOLOL 20 MG (INDERAL) TABLET PO SCH ×2 (09:50→20:43)
--- NOTE | 2020-05-14 13:24 | PM&R Progress Note ---
Subjective HPI/CC On Admission Date Seen by Provider: May 14, 2020 Time Seen by Provider: 06:00 Subjective/Events-last exam Pt asleep this morning on rounds at 0600 BM regular per RN No major issues reported No pain reported No falls but increased risk Disposition will be skilled care at [place] Overall debility is so chronic that likely no recovery is expected Checked meds and labs Conferred with RN Reviewed therapy notes Review of Systems Neurological: Weakness, Incoordination, Confusion Objective Exam Vital Signs Vital Signs Date Time Temp Pulse Resp B/P (MAP) Pulse Ox O2 Delivery O2 Flow Rate FiO2 05/14/20 09:00 98 Room Air 05/14/20 06:41 36.4 81 18 162/88 (112) Capillary Refill : Less Than 3 Seconds General Appearance: No Apparent Distress, WD/WN, Chronically ill, Thin HEENT: PERRL/EOMI, Normal ENT Inspection, Pharynx Normal Neck: Normal Inspection, Non Tender, Supple, Carotid Bruit, Limited Range of Motion Respiratory: Chest Non Tender, Lungs Clear, No Accessory Muscle Use, No R espiratory Distress, Decreased Breath Sounds Cardiovascular: Regular Rate, Rhythm, No Edema, No Gallop, No JVD, No Murmur, Normal Peripheral Pulses Gastrointestinal: Normal Bowel Sounds, No Organomegaly, No Pulsatile Mass, Non Tender, Soft Back: Normal Inspection, No CVA Tenderness, No Vertebral Tenderness, Decreased Range of Motion, Other (scoliosis) Extremity: Normal Capillary Refill, Normal Inspection, Normal Range of Motion, Non Tender, No Calf Tenderness, No Pedal Edema Neurologic/Psychiatric: Alert, Oriented x3, Abnormal Gait, Depressed Affect, Motor Weakness (Severe Tremor, generalized weakness, ) Skin: Normal Color, Warm/Dry Lymphatic: No Adenopathy Results/Procedures Lab Patient resulted labs reviewed. FIM Transfers Therapy Code Descriptions/Definitions Functional [place] Measure: 0=Not Assessed/NA 4=Minimal Assistance 1=Total Assistance 5=Supervision or Setup 2=Maximal Assistance 6=Modified [place] 3=Moderate Assistance 7=Complete IndependenceSCALE: Activities may be completed with or without assistive devices. 9-Rqjnvnsiqx-slzvtut completes the activity by him/herself with no assistance from a helper. 5-Set-up or Clean-up Assistance-helper sets up or cleans up; patient completes activity. [place] assists only prior to or following the activity. 4-Supervision or Touching Assistance-helper provides verbal cues and/or touching/steadying and/or contact guard assistance as patient completes activity. Assistance may be provided throughout the activity or intermittently. 3-Partial/Moderate Assistance-helper does LESS THAN HALF the effort. [place] lifts, holds or supports trunk or limbs, but provides less than half the effort. 2-Substantial/Maximal Assistance-helper does MORE THAN HALF the effort. [place] lifts or holds trunk or limbs and provides more than half the effort. 9-Kahljspvw-pfehrx does ALL the effort. Patient does none of the effort to complete the activity. Or, the assistance of 2 or more helpers is required for the patient to complete the activity. If activity was not attempted, code reason: 7-Patient Refused. 9-Not Applicable-not attempted and the patient did not perform the activity before the current illness, exacerbation or injury. 10-Not Attempted due to Environmental Limitations-(lack of equipment, weather restraints, etc.). 88-Not Attempted due to Medical Conditions or Safety Concerns. Roll Left to Right (QC): 2 Sit to Lying (QC): 1 Sit to Stand (QC): 1 Chair/Twm-rf-Wkbql Xfer(QC): 1 Car Transfer (QC): 1 Gait Training Does the Patient Walk?: No and Walking Goal NOT indicated Walk 10 feet (QC): 88 Walk 50 ft with 2 Turns(QC): 88 Walk 150 ft (QC): 88 Walking 10ft/uneven surface-QC: 88 Wheelchair Training Does the Pt Use a Wheelchair?: Yes Wheel 50 ft with 2 turns (QC): 1 Wheel 150 ft (QC): 1 Type of Wheelchair: Manual Stair Training 1 Step (curb) (QC): 88 4 Steps (QC): 88 12 Steps (QC): 88 Balance Picking up an Object (QC): 88 ADL-Treatment Eating (QC): 2 (Max per nursing.) Oral Hygiene (QC): 7 (Pt. declines putting in dentures.) Shower/Bathe Self (QC): 2 (Pt. is able to pat at chest with washcloth. Pt. begins having significant tremors. She was able to wash her face as well. OT washed all other parts in shower.) Upper Body Dressing (QC): 2 Lower Body Dressing (QC): 1 On/Off Footwear (QC): 2 Toileting Hygiene (QC): 1 Toilet Transfer (QC): 1 Assessment/Plan Assessment and Plan Assess & Plan/Chief Complaint Assessment: PD Hyponatremia due to SIADH Constipation periodic Scoliosis Elevated AST Falls Cognitive deficit "Freezing up" episodes initiated on Amantadine and seems to be responding Plan: Fluid restrict IRF protocol BM regimen Home meds Lovenox Amantadine Needs correction at discharge (1) Parkinson disease Status: Chronic (2) Thrombocytosis Status: Resolved Resolution Date/Time: 05/03/20 @ 10:33 (3) Elevated AST (SGOT) Status: Acute (4) DVT prophylaxis Status: Acute (5) Frequent falls Status: Acute (6) Tremor Status: Chronic (7) Constipation Status: Acute (8) Scoliosis (9) Hyponatremia Status: Acute (10) Syncope Status: Acute HAYDER VALLES DO May 14, 2020 13:24
[2020-05-14] MEDS: ENOXAPARIN 30 MG/0.3 ML (LOVENOX) SYR SC SCH (16:32)
[2020-05-14 17:32] VITALS: BP 154/88
--- NOTE | 2020-05-14 19:23 | NUR ---
bedside report received from MINNIE JC, assume care of pt
[2020-05-14] MEDS: PRIMIDONE 50 MG TAB (MYSOLINE) PO SCH (20:42)
[2020-05-14] MEDS: polyethylene glycoL POWDER 17 GM (MIRALAX) PACK PO SCH (20:43)
--- NOTE | 2020-05-14 20:43 | NUR ---
no BM since 7-3, all laxatives given, takes pills well with pudding
[2020-05-15 05:15] VITALS: BP 136/80
[2020-05-15 05:40] LABS: BASOPHILS % (AUTO) 1 % (0-10); EOSINOPHILS # (AUTO) 0.1 10^3/uL (0.0-0.3); EOSINOPHILS % (AUTO) 2 % (0-10); HEMATOCRIT 34 % (35-52); HEMOGLOBIN 11.4 G/DL (11.5-16.0); LYMPHOCYTES # (AUTO) 1.2 X 10^3 (1.0-4.0); LYMPHOCYTES % (AUTO) 36 % (12-44); MEAN CORPUSCULAR HEMOGLOBIN 29 PG (25-34); MEAN CORPUSCULAR HGB CONC 34 G/DL (32-36); MEAN CORPUSCULAR VOLUME 84 FL (80-99); MEAN PLATELET VOLUME 8.7 FL (7.4-10.4); MONOCYTES # (AUTO) 0.6 X 10^3 (0.0-1.0); MONOCYTES % (AUTO) 16 % (0-12); NEUTROPHILS # (AUTO) 1.6 X 10^3 (1.8-7.8); NEUTROPHILS % (AUTO) 46 % (42-75); PLATELET COUNT 419 10^3/uL (130-400); RED CELL DISTRIBUTION WIDTH 14.4 % (10.0-14.5); WHITE BLOOD COUNT 3.4 10^3/uL (4.3-11.0)
[2020-05-15 05:51] LABS: CHLORIDE 94 MMOL/L (98-107); POTASSIUM 4.3 MMOL/L (3.6-5.0); SODIUM 127 MMOL/L (135-145)
[2020-05-15 05:52] LABS: CALCIUM 9.9 MG/DL (8.5-10.1)
[2020-05-15 05:53] LABS: GLUCOSE 84 MG/DL (70-105); TOTAL PROTEIN 7.5 GM/DL (6.4-8.2)
[2020-05-15 05:54] LABS: CARBON DIOXIDE 21 MMOL/L (21-32)
[2020-05-15 05:55] LABS: BILIRUBIN,TOTAL 0.3 MG/DL (0.1-1.0)
[2020-05-15 05:56] LABS: ALKALINE PHOSPHATASE 60 U/L (40-136)
[2020-05-15 05:57] LABS: CREATININE SERUM 0.62 MG/DL (0.60-1.30); GFR ESTIMATED > 60
[2020-05-15 05:58] LABS: BUN/CREATININE RATIO 26
[2020-05-15 06:00] LABS: ALANINE AMINOTRANSFERASE 17 U/L (0-55)
[2020-05-15] MEDS: VITAMIN D3 25 MCG (1,000 UNITS) TABLET PO SCH ×2 (08:16→21:19)
[2020-05-15] MEDS: FLUoxetine HCL 20 MG (PROzac) CAP PO SCH (08:16)
[2020-05-15] MEDS: amLODIPine 5 MG (NORVASC) TAB PO SCH (08:16)
[2020-05-15] MEDS: SODIUM CHLORIDE 1 GM TABLET PO SCH ×2 (08:16→21:18)
[2020-05-15] MEDS: PROPRANOLOL 20 MG (INDERAL) TABLET PO SCH ×2 (08:16→21:19)
[2020-05-15] MEDS: CALCIUM CARBONATE 600 MG (CALCARB) TAB PO SCH ×2 (08:16→16:51)
[2020-05-15] MEDS: AMANTADINE 100 MG (SYMMETREL) CAP PO SCH ×2 (08:16→21:18)
[2020-05-15] MEDS: SENNA W/DOCUSATE (SENOKOT S) TABLET PO SCH ×2 (08:18→21:19)
[2020-05-15] MEDS: SINEMET 25/100 (CARBIDOPA/LEVODOPA) TAB PO SCH ×3 (08:18→21:19)
[2020-05-15] MEDS: DOCUSATE SODIUM 100 MG (COLACE) CAP PO SCH (08:18)
--- NOTE | 2020-05-15 10:00 | Physical Therapy Daily Note ---
PT Daily Note-Current Subjective Patient in recliner pre tx, agrees to PT, has no complaints of pain. Appearance Patient in recliner post tx with nurse call, phone, tray, family in the room. Mental Status Patient Orientation: Person, Unable to Assess, [place] Transfers SCALE: Activities may be completed with or without assistive devices. 6-Lulnmhvyxo-qijafau completes the activity by him/herself with no assistance from a helper. 5-Set-up or Clean-up Assistance-helper sets up or cleans up; patient completes activity. [place] assists only prior to or following the activity. 4-Supervision or Touching Assistance-helper provides verbal cues and/or touching/steadying and/or contact guard assistance as patient completes activity. Assistance may be provided throughout the activity or intermittently. 3-Partial/Moderate Assistance-helper does LESS THAN HALF the effort. [place] lifts, holds or supports trunk or limbs, but provides less than half the effort. 2-Substantial/Maximal Assistance-helper does MORE THAN HALF the effort. [place] lifts or holds trunk or limbs and provides more than half the effort. 4-Qkwqjjeab-rbaoji does ALL the effort. Patient does none of the effort to complete the activity. Or, the assistance of 2 or more helpers is required for the patient to complete the activity. If activity was not attempted, code reason: 7-Patient Refused. 9-Not Applicable-not attempted and the patient did not perform the activity before the current illness, exacerbation or injury. 10-Not Attempted due to Environmental Limitations-(lack of equipment, weather restraints, etc.). 88-Not Attempted due to Medical Conditions or Safety Concerns. Roll Left & Right (QC): 1 Sit to Lying (QC): 1 Lying to Sitting/Side of Bed(Q: 1 Sit to Stand (QC): 1 Chair/Zja-qo-Gsrhj Xfer(QC): 1 Toilet Transfer (QC): 1 Car Transfer (QC): 1 Patient is dependent for all mobility. She can assist with standing with her legs but only due to extensor tone, she is also retropulsive. I do not recommend a car transfer when she is transferred out of here. An ambulance would be much more comfortable for her. After treatment it is noticed that she has urinated and had a BM, clothes are wet, nurse aide assists with patient changing and cleaning when standing during transfer. Weight Bearing Right Lower Extremity: Right Weight Bearing/Tolerated Left Lower Extremity: Left Weight Bearing/Tolerated Gait Training Walk 10 feet (QC): 88 Walk 50 ft with 2 Turns(QC): 88 Walk 150 ft (QC): 88 Walking 10ft/uneven surface-QC: 88 Wheelchair Training Wheel 50 ft with 2 turns (QC): 1 Wheel 150 ft (QC): 1 Type of Wheelchair: Manual Patient is able to assist slightly with both arms propelling the WC forward but only about one inch at a time, about 20' is the max she can do and that is with assist to go forward. Stair Training 1 Step (curb) (QC): 88 4 Steps (QC): 88 12 Steps (QC): 88 Balance Picking up an Object (QC): 88 Exercises Supine Ex: Short Arc Quads Supine Reps: 20 (AAROM) BLE manually assisted leg flexion and extension x10 each side, standing in parallel bars x3 with dependence/max assist, assist to stabilize both ankles, stands on her toes Treatments bed mobility and transfers, BLE exercises, standing Assessment Current Status: Poor Progress no change in mobility PT Short Term Goals Short Term Goals Time Frame: May 10, 2020 Roll Left & Right: 2 Sit to lyin Lying to sitting on side of be: 2 Sit to stand: 2 Chair/trd-zs-staft transfer: 2 PT Usp Goals Residential Living Assistant Goals PT Usp Goals Time Frame: May 24, 2020 Roll Left & Right (QC): 3 Sit to Lying (QC): 3 Lying-Sitting on Side/Bed(QC): 3 Sit to Stand (QC): 3 Chair/Qcm-pp-Tpqjp Xfer(QC): 3 Toilet Transfer (QC): 3 Car Transfer (QC): 3 Does the Patient Walk: No and Walking Goal IS indicated Walk 10 feet (QC): 3 Walk 50ft with 2 Turns (QC): 88 Walk 150 ft (QC): 88 Walking 10ft on Uneven Surface: 88 1 Step (curb) (QC): 88 4 Steps (QC): 88 12 Steps (QC): 88 Picking up an Object (QC): 88 Does the Pt use WC or Scooter?: Yes Wheel 50 feet with 2 turns (QC: 2 Wheel 150 feet: 88 PT Plan Problem List Problem List: Activity Tolerance, Functional Strength, Safety, Balance, Gait, Transfer, Bed Mobility, ROM Treatment/Plan Treatment Plan: Continue Plan of Care Treatment Plan: Bed Mobility, Education, Functional Activity Vinicius, Functional Strength, Group Therapy, Gait, Safety, Therapeutic Exercise, Transfers Treatment Duration: May 24, 2020 Frequency: covid waiver 60 min per day Estimated Hrs Per Day: 1.5 hours per day Patient and/or Family Agrees t: Yes Safety Risks/Education Patient Education: Transfer Techniques, Correct Positioning, W/C Management, Safety Issues Teaching Recipient: Patient Teaching Methods: Demonstration, Discussion Response to Teaching: Reinforcement Needed Time/GCodes Time In: 0900 Time Out: 1000 Total Billed Treatment Time: 60 Total Billed Treatment 1 visit EX 30' FA 30' MARIA G ARORA PT May 15, 2020 10:00
--- NOTE | 2020-05-15 10:23 | PM&R Progress Note ---
Subjective HPI/CC On Admission Date Seen by Provider: May 15, 2020 Time Seen by Provider: 10:00 Subjective/Events-last exam Pt asleep this morning on rounds at 0600 BM regular per RN No major issues reported No pain reported No falls but increased risk Disposition will be skilled care at [facility] Overall debility is so chronic that likely no recovery is expected Checked meds and labs Conferred with RN Reviewed therapy notes Review of Systems General: Fatigue, Malaise Neurological: Weakness, Numbness, Incoordination Objective Exam Vital Signs Vital Signs Date Time Temp Pulse Resp B/P (MAP) Pulse Ox O2 Delivery O2 Flow Rate FiO2 05/15/20 16:00 36.6 71 16 150/84 (106) 99 Room Air Capillary Refill : Less Than 3 Seconds General Appearance: No Apparent Distress, WD/WN, Chronically ill, Thin HEENT: PERRL/EOMI, Normal ENT Inspection, Pharynx Normal Neck: Normal Inspection, Non Tender, Supple, Carotid Bruit, Limited Range of Motion Respiratory: Chest Non Tender, Lungs Clear, No Accessory Muscle Use, No Respiratory Distress, Decreased Breath Sounds Cardiovascular: Regular Rate, Rhythm, No Edema, No Gallop, No JVD, No Murmur, Normal Peripheral Pulses Gastrointestinal: Normal Bowel Sounds, No Organomegaly, No Pulsatile Mass, Non Tender, Soft Back: Normal Inspection, No CVA Tenderness, No Vertebral Tenderness, Decreased Range of Motion, Other (scoliosis) Extremity: Normal Capillary Refill, Normal Inspection, Normal Range of Motion, Non Tender, No Calf Tenderness, No Pedal Edema Neurologic/Psychiatric: Alert, Oriented x3, Abnormal Gait, Depressed Affect, Motor Weakness (Severe Tremor, generalized weakness, ) Skin: Normal Color, Warm/Dry Lymphatic: No Adenopathy Results/Procedures Lab Laboratory Tests 05/15/20 04:30 Patient resulted labs reviewed. FIM Transfers Therapy Code Descriptions/Definitions Functional [place] Measure: 0=Not Assessed/NA 4=Minimal Assistance 1=Total Assistance 5=Supervision or Setup 2=Maximal Assistance 6=Modified [place] 3=Moderate Assistance 7=Complete IndependenceSCALE: Activities may be completed with or without assistive devices. 6-Hzafqelaic-zxfjhvf completes the activity by him/herself with no assistance from a helper. 5-Set-up or Clean-up Assistance-helper sets up or cleans up; patient completes activity. [place] assists only prior to or following the activity. 4-Supervision or Touching Assistance-helper provides verbal cues and/or touching/steadying and/or contact guard assistance as patient completes activity. Assistance may be provided throughout the activity or intermittently. 3-Partial/Moderate Assistance-helper does LESS THAN HALF the effort. [place] lifts, holds or supports trunk or limbs, but provides less than half the effort. 2-Substantial/Maximal Assistance-helper does MORE THAN HALF the effort. [place] lifts or holds trunk or limbs and provides more than half the effort. 4-Mbulqnadk-wrmroo does ALL the effort. Patient does none of the effort to complete the activity. Or, the assistance of 2 or more helpers is required for the patient to complete the activity. If activity was not attempted, code reason: 7-Patient Refused. 9-Not Applicable-not attempted and the patient did not perform the activity before the current illness, exacerbation or injury. 10-Not Attempted due to Environmental Limitations-(lack of equipment, weather restraints, etc.). 88-Not Attempted due to Medical Conditions or Safety Concerns. Roll Left to Right (QC): 1 Sit to Lying (QC): 1 Sit to Stand (QC): 1 Chair/Pnw-vu-Rwwlk Xfer(QC): 1 Car Transfer (QC): 1 Gait Training Does the Patient Walk?: No and Walking Goal NOT indicated Walk 10 feet (QC): 88 Walk 50 ft with 2 Turns(QC): 88 Walk 150 ft (QC): 88 Walking 10ft/uneven surface-QC: 88 Wheelchair Training Does the Pt Use a Wheelchair?: Yes Wheel 50 ft with 2 turns (QC): 1 Wheel 150 ft (QC): 1 Type of Wheelchair: Manual Stair Training 1 Step (curb) (QC): 88 4 Steps (QC): 88 12 Steps (QC): 88 Balance Picking up an Object (QC): 88 ADL-Treatment Eating (QC): 2 (Max per nursing.) Oral Hygiene (QC): 7 (Pt. declines putting in dentures.) Shower/Bathe Self (QC): 2 (Pt. is able to pat at chest with washcloth. Pt. begins having significant tremors. She was able to wash her face as well. OT washed all other parts in shower.) Upper Body Dressing (QC): 2 Lower Body Dressing (QC): 1 On/Off Footwear (QC): 2 Toileting Hygiene (QC): 1 Toilet Transfer (QC): 1 Assessment/Plan Assessment and Plan Assess & Plan/Chief Complaint Assessment: PD Hyponatremia due to SIADH Constipation periodic Scoliosis Elevated AST Falls Cognitive deficit "Freezing up" episodes initiated on Amantadine and seems to be responding Plan: Fluid restrict IRF protocol BM regimen Home meds Lovenox Amantadine Needs fpc at discharge Discharge to [facility] tomorrow (1) Parkinson disease Status: Chronic (2) Thrombocytosis Status: Resolved Resolution Date/Time: 05/03/20 @ 10:33 (3) Elevated AST (SGOT) Status: Acute (4) DVT prophylaxis Status: Acute (5) Frequent falls Status: Acute (6) Tremor Status: Chronic (7) Constipation Status: Acute (8) Scoliosis (9) Hyponatremia Status: Acute (10) Syncope Status: Acute HAYDER VALLES DO May 15, 2020 10:22
--- NOTE | 2020-05-15 12:00 | NUR ---
SISTER HERE, HELPS FEED PATIENT LUNCH. PATIENT RESPONDS OCCASIONALLY AND SLOWLY TO CONVERSATION. CONSUMES ALL LUNCH. WILL CON'T TO MONITOR.
--- NOTE | 2020-05-15 12:08 | Occupational Ther Daily Note ---
OT Current Status-Daily Note Subjective Pt. in recliner asleep with sister in room when therapy entered. Pt. agreed to therapy when awake. No c/o pain. Mental Status/Objective Patient Orientation: Unable to Assess ADL-Treatment Therapy Code Descriptions/Definitions Functional [place] Measure: 0=Not Assessed/NA 4=Minimal Assistance 1=Total Assistance 5=Supervision or Setup 2=Maximal Assistance 6=Modified [place] 3=Moderate Assistance 7=Complete IndependenceSCALE: Activities may be completed with or without assistive devices. 6-Qlvkrbiikx-xqtvydo completes the activity by him/herself with no assistance from a helper. 5-Set-up or Clean-up Assistance-helper sets up or cleans up; patient completes activity. [place] assists only prior to or following the activity. 4-Supervision or Touching Assistance-helper provides verbal cues and/or touching/steadying and/or contact guard assistance as patient completes activity. Assistance may be provided throughout the activity or intermittently. 3-Partial/Moderate Assistance-helper does LESS THAN HALF the effort. [place] lifts, holds or supports trunk or limbs, but provides less than half the effort. 2-Substantial/Maximal Assistance-helper does MORE THAN HALF the effort. [place] lifts or holds trunk or limbs and provides more than half the effort. 9-Kgxdhhtqd-bvkjqs does ALL the effort. Patient does none of the effort to complete the activity. Or, the assistance of 2 or more helpers is required for the patient to complete the activity. If activity was not attempted, code reason: 7-Patient Refused. 9-Not Applicable-not attempted and the patient did not perform the activity before the current illness, exacerbation or injury. 10-Not Attempted due to Environmental Limitations-(lack of equipment, weather restraints, etc.). 88-Not Attempted due to Medical Conditions or Safety Concerns. Shower/Bathe Self (QC): 1 (Pt dependent in bathing) Upper Body Dressing (QC): 1 Lower Body Dressing (QC): 1 (Pt. required assist x2 for lower body dressing. Required assist of one person to stand with pt. while another donned pants over hips.) On/Off Footwear: 1 Toileting Hygiene (QC): 1 (Pt incontinent of bladder) Pt in recliner with therapy entered room. Pt not as alert this am. Pt agreed to shower and dressing with therapy. Pt. transferred to shower chair with assist x2. Pt. wheeled to shower. Once in shower, pt. required assist x2 for doffing brief. Pt. dependent for doffing hospital gown. OT handed pt. washcloth to assist with bathing. Pt. held washcloth and provided with max cueing and additional time. Pt. dependent with bathing and drying. Pt dependent with UB dressing, OT provided max cues and extra time for threading arms through sleeves. Pt. required assist x2 for pulling pants and briefs over hips. Dependent transfer to recliner. Pt. required OSAGE assistance to brush front hair and dependent for grooming back of head. Pt. then cued for AROM. Pt. completed B shoulder flexion reaching for OT. Pt then went through B UE AROM with OSAGE from therapist. Pt. provided Mitch cup requiring min assist to bring to mouth. Pt. began to choke on water. OT provided honey thickener to water. Pt. and sister report thickened water better for swallowing. Nursing notified of thickener. Med student completing exam when therapy left room. All needs met. Education OT Patient Education: Correct positioning, Instructions to caregiver, Modified ADL techniques, Progress toward Goal/Update tx plan, Purpose of tx/functional activities, Reviewed precautions, Rehab process, Transfer techniques Teaching Recipient: Patient, Family Teaching Methods: Demonstration, Discussion Response to Teaching: Return Demonstration, Reinforcement Needed OT Short Term Goals Short Term Goals Time Frame: May 17, 2020 Eatin Oral hygiene: 3 Toileting hygiene: 2 Shower/bathe self: 2 Upper body dressin Lower body dressin Putting on/taking off footwear: 3 OT [facility] Goals Auto Service Mechanic Goals Time Frame: May 31, 2020 Eating (QC): 4 Oral Hygiene (QC): 4 Toileting Hygiene (QC): 3 Shower/Bathe Self (QC): 3 Upper Body Dressing (QC): 4 Lower Body Dressing (QC): 3 On/Off Footwear (QC): 3 Additional Goals: 1-Demonstrate ADL Tasks, 2-Verbalize Understanding, 3- ImproveStrength/Vinicius 1=Demonstrate adherence to instructed precautions during ADL tasks. 2=Patient will verbalize/demonstrate understanding of assistive devices/modifications for ADL. 3=Patient will improve strength/tolerance for activity to enable patient to perform ADL's. OT Education/Plan Problem List/Assessment Assessment: Decreased Activ Tolerance, Decreased UE Strength, Dependent Transfers, Impaired Bed Mobility, Impaired Cognition, Impaired Coordination, Impaired Funct Balance, Impaired I ADL's, Impaired Self-Care Skills, Restricted Funct UE ROM Discharge Recommendations Plan/Recommendations: Continue POC Therapy Discharge Recommendati: 24 Hour Supervision Treatment Plan/Plan of Care Treatment,Training & Education: Yes Patient would benefit from OT for education, treatment and training to promote independence in ADL's, mobility, safety and/or upper extremity function for ADL's. Plan of Care: ADL Retraining, Functional Mobility, UE Funct Exercise/Act Treatment Duration: May 31, 2020 Frequency: Modified Program (IRF) Estimated Hrs Per Day: Other (modified COVID waiver-60minutes/day) Agreement: Yes Rehab Potential: Fair Time/GCodes Start Time: 11:00 Stop Time: 12:00 Total Time Billed (hr/min): 60 Billed Treatment Time 1, visit, ADLx 4 (60 minutes) ALTON MARKS OT May 15, 2020 12:08
--- NOTE | 2020-05-15 12:36 | Progress Note ---
MARKY BERNAL MED STUDENT 05/15/20 1236: Progress Note Ms. Sherly Do Neuro H&P: Subjective: Ms. Do' caregiver describes her having an intention tremor for around 15 years. In the past 6 months, particularly since March, she has developed rigidity causing gait and motor difficulties that has progressed rapidly, as well as a raspy voice, and difficulties speaking and swallowing. In the past month she has developed incontinence. Caregiver states that she has also developed memory and cognitive issues in the past 6 months. She started Amantadine on May 05, and caregiver is uncertain if it has helped her symptoms. Exam: During the exam today she did not speak, and began to fall asleep twice during the exam. However, she say a single word reply to her caregiver, and seemed to be following all directions. Cranial Nerves: II: PERRL, has cataracts III, IV, : no nystagmus or ptosis. Unknown if she experienced diplopia. Displayed proper convergence. V: unknown sensation due to lack of communication VII: able to puff out cheeks, smile, raise eyebrows, close eyes and resist opening, open eyes wide. No observed asymmetry. VIII: able to follow directions, reply to caregiver IX, X: palate elevated symmetrically, however vision limited due to her inability to open mouth wide XI: 4+ head turning and shoulder shrug XII: tongue midline, no atrophy or fasciculations Motor: No tremor at rest. 4+ deltoid bilaterally, 4+ biceps bilaterally, 4+ triceps bilaterally, 4+ R wr ist flexion, 3+ L wrist flexion, 3+ wrist extension bilaterally, 3+ hip extension bilaterally, 4+ hip extension bilaterally, 3+ knee flexion bilaterally, 4+ knee extension bilaterally, 4+ ankle flexion bilaterally, 3+ ankle extension bilaterally Reflexes: 1+ ankles bilaterally, 1+ knees bilaterally, 1+ biceps bilaterally, 1+ triceps bilaterally Sensory: unknown sensation due to lack of communication Coordination: Able to turn hands over slowly, when attempting to do so rapidly, both hands develop staggered motion With kqfxjv-rw-dfne maneuver, tremor is observed. Able to contact fingertip with slow correction. ALEJANDRA MCKEON DO 05/15/20 4834: Supervisory-Addendum Brief Verification & Attestation Participated in pt care: history, MDM, physical Personally performed: exam, history, MDM, supervision of care Care discussed with: Medical Student Procedures: n/a Results interpretation: Verified all documentation Verification and Attestation of Medical Student E/M Service A medical student performed and documented this service in my presence. I reviewed and verified all information documented by the medical student and made modifications to such information, when appropriate. I personally performed the physical exam and medical decision making. Alejandra Mckeon, May 15, 2020,21:57 MARKY BERNAL MED STUDENT May 15, 2020 12:36 ALEJANDRA MCKEON DO May 15, 2020 21:57
--- NOTE | 2020-05-15 12:45 | NUR ---
CM/SS DISCHARGE PLANNING Final discharge planning. Patient has been accepted for admission to [facility] under Medicare skilled status. Discharge is planned for tomorrow. Visited with patient and her POA/Sister Nazia Cleveland this a.m. to confirm all arrangements. [facility] has agreed to transport patient to her Neurology appointment with Dr. Thang Sousa in [place]: Friday, May 17, 2020, at 2:[address], [address], [place] [phone] [facility] presented, reviewed, signed, charted. [facility] Assessment continues to be waived at this time due to Covid19. [place] Covid19 Assessment completed regarding transfer from acute care into post acute care. Unit RN and communication board updated regarding tomorrow's discharge.
--- NOTE | 2020-05-15 13:25 | Physical Therapy Daily Note ---
PT Daily Note-Current Subjective Patient in recliner pre tx, agrees to PT, voices no complaints of pain. Appearance Patient in bed post tx with nurse call,phone, tray, all needs met, family in the room. Mental Status Patient Orientation: Person, Confused, Unable to Assess, [place] Transfers SCALE: Activities may be completed with or without assistive devices. 3-Qlbwzjnzdl-ampzxut completes the activity by him/herself with no assistance from a helper. 5-Set-up or Clean-up Assistance-helper sets up or cleans up; patient completes activity. [place] assists only prior to or following the activity. 4-Supervision or Touching Assistance-helper provides verbal cues and/or touching/steadying and/or contact guard assistance as patient completes activity. Assistance may be provided throughout the activity or intermittently. 3-Partial/Moderate Assistance-helper does LESS THAN HALF the effort. [place] lifts, holds or supports trunk or limbs, but provides less than half the effort. 2-Substantial/Maximal Assistance-helper does MORE THAN HALF the effort. [place] lifts or holds trunk or limbs and provides more than half the effort. 5-Hpzqxludk-awmiof does ALL the effort. Patient does none of the effort to complete the activity. Or, the assistance of 2 or more helpers is required for the patient to complete the activity. If activity was not attempted, code reason: 7-Patient Refused. 9-Not Applicable-not attempted and the patient did not perform the activity before the current illness, exacerbation or injury. 10-Not Attempted due to Environmental Limitations-(lack of equipment, weather restraints, etc.). 88-Not Attempted due to Medical Conditions or Safety Concerns. Roll Left & Right (QC): 1 Sit to Lying (QC): 1 Sit to Stand (QC): 1 Chair/Ihj-ek-Zaeiq Xfer(QC): 1 transfer from recliner to bed Weight Bearing Right Lower Extremity: Right Weight Bearing/Tolerated Left Lower Extremity: Left Weight Bearing/Tolerated Exercises BLE stretching in all planes, bilateral plantarflexion contractures Treatments transfers and bed mobility, BLE stretching Assessment Current Status: Poor Progress no change in mobility PT Short Term Goals Short Term Goals Time Frame: May 10, 2020 Roll Left & Right: 2 Sit to lyin Lying to sitting on side of be: 2 Sit to stand: 2 Chair/gxf-uc-fyyje transfer: 2 PT Waiter Waitress Goals Nursing Home Goals PT Waiter Waitress Goals Time Frame: May 24, 2020 Roll Left & Right (QC): 3 Sit to Lying (QC): 3 Lying-Sitting on Side/Bed(QC): 3 Sit to Stand (QC): 3 Chair/Eax-qd-Eewil Xfer(QC): 3 Toilet Transfer (QC): 3 Car Transfer (QC): 3 Does the Patient Walk: No and Walking Goal IS indicated Walk 10 feet (QC): 3 Walk 50ft with 2 Turns (QC): 88 Walk 150 ft (QC): 88 Walking 10ft on Uneven Surface: 88 1 Step (curb) (QC): 88 4 Steps (QC): 88 12 Steps (QC): 88 Picking up an Object (QC): 88 Does the Pt use WC or Scooter?: Yes Wheel 50 feet with 2 turns (QC: 2 Wheel 150 feet: 88 PT Plan Problem List Problem List: Activity Tolerance, Functional Strength, Safety, Balance, Gait, Transfer, Bed Mobility, ROM Treatment/Plan Treatment Plan: Continue Plan of Care Treatment Plan: Bed Mobility, Education, Functional Activity Vinicius, Functional Strength, Group Therapy, Gait, Safety, Therapeutic Exercise, Transfers Treatment Duration: May 24, 2020 Frequency: alen green 60 min per day Estimated Hrs Per Day: 1.5 hours per day Patient and/or Family Agrees t: Yes Safety Risks/Education Patient Education: Transfer Techniques, Correct Positioning, Safety Issues Teaching Recipient: Patient Teaching Methods: Demonstration, Discussion Response to Teaching: Reinforcement Needed Time/GCodes Time In: 1300 Time Out: 1330 Total Billed Treatment Time: 30 Total Billed Treatment 1 visit EX 20' FA 10' MARIA G ARORA PT May 15, 2020 13:25
--- NOTE | 2020-05-15 15:14 | Occupational Ther Daily Note ---
OT Current Status-Daily Note Subjective Pt. asleep in bed when therapy entered room. Pt. agreed to therapy when awoken. No c/o pain. Mental Status/Objective Patient Orientation: Unable to Assess ADL-Treatment Therapy Code Descriptions/Definitions Functional [place] Measure: 0=Not Assessed/NA 4=Minimal Assistance 1=Total Assistance 5=Supervision or Setup 2=Maximal Assistance 6=Modified [place] 3=Moderate Assistance 7=Complete IndependenceSCALE: Activities may be completed with or without assistive devices. 9-Rsvcehndhf-nzksuve completes the activity by him/herself with no assistance from a helper. 5-Set-up or Clean-up Assistance-helper sets up or cleans up; patient completes activity. [place] assists only prior to or following the activity. 4-Supervision or Touching Assistance-helper provides verbal cues and/or touching /steadying and/or contact guard assistance as patient completes activity. Assistance may be provided throughout the activity or intermittently. 3-Partial/Moderate Assistance-helper does LESS THAN HALF the effort. [place] lifts, holds or supports trunk or limbs, but provides less than half the effort. 2-Substantial/Maximal Assistance-helper does MORE THAN HALF the effort. [place] lifts or holds trunk or limbs and provides more than half the effort. 9-Ymhwndlrp-dhhzgx does ALL the effort. Patient does none of the effort to complete the activity. Or, the assistance of 2 or more helpers is required for the patient to complete the activity. If activity was not attempted, code reason: 7-Patient Refused. 9-Not Applicable-not attempted and the patient did not perform the activity before the current illness, exacerbation or injury. 10-Not Attempted due to Environmental Limitations-(lack of equipment, weather restraints, etc.). 88-Not Attempted due to Medical Conditions or Safety Concerns. Other Treatment Pt. not as alert this pm. OT attempted to wake pt up. Pt would open eyes, but would fall back to sleep. Pt. remained in bed as OT facilitated PROM of B UE in all planes to end range. Tone noted in all joints as well as in neck muscles p ulling head into flexion. PROM of head to decrease neck tone and position head for function. Pt remained asleep throughout treatment. Pt. asleep in bed with call light when therapy left room. All needs met. Education OT Patient Education: Correct positioning, Exercise program, Purpose of tx/functional activities, Reviewed precautions, Rehab process Teaching Recipient: Patient Teaching Methods: Demonstration, Discussion Response to Teaching: Unable to Return Demonstration OT Short Term Goals Short Term Goals Time Frame: May 17, 2020 Eatin Oral hygiene: 3 Toileting hygiene: 2 Shower/bathe self: 2 Upper body dressin Lower body dressin Putting on/taking off footwear: 3 OT Community Engagement Representative Goals Community Engagement Representative Goals Time Frame: May 31, 2020 Eating (QC): 4 Oral Hygiene (QC): 4 Toileting Hygiene (QC): 3 Shower/Bathe Self (QC): 3 Upper Body Dressing (QC): 4 Lower Body Dressing (QC): 3 On/Off Footwear (QC): 3 Additional Goals: 1-Demonstrate ADL Tasks, 2-Verbalize Understanding, 3- ImproveStrength/Vinicius 1=Demonstrate adherence to instructed precautions during ADL tasks. 2=Patient will verbalize/demonstrate understanding of assistive dev ices/modifications for ADL. 3=Patient will improve strength/tolerance for activity to enable patient to perform ADL's. OT Education/Plan Problem List/Assessment Assessment: Decreased Activ Tolerance, Decreased Safety Aware, Decreased UE Strength, Dependent Transfers, Impaired Bed Mobility, Impaired Cognition, Impaired Coordination, Impaired Funct Balance, Impaired I ADL's, Impaired Self- Care Skills, Restricted Funct UE ROM Discharge Recommendations Plan/Recommendations: Continue POC Therapy Discharge Recommendati: 24 Hour Supervision Treatment Plan/Plan of Care Treatment,Training & Education: Yes Patient would benefit from OT for education, treatment and training to promote independence in ADL's, mobility, safety and/or upper extremity function for A DL's. Plan of Care: ADL Retraining, Functional Mobility, UE Funct Exercise/Act Treatment Duration: May 31, 2020 Frequency: Modified Program (IRF) Estimated Hrs Per Day: Other (modified COVID waiver-60minutes/day) Agreement: Yes Rehab Potential: Fair Time/GCodes Start Time: 14:00 Stop Time: 14:30 Total Time Billed (hr/min): 30 Billed Treatment Time 1, visit, Ex x 30 minutes ALTON MARKS OT May 15, 2020 15:14
[2020-05-15 16:00] VITALS: BP 150/84
[2020-05-15] MEDS: ENOXAPARIN 30 MG/0.3 ML (LOVENOX) SYR SC SCH (16:51)
[2020-05-15] MEDS: PRIMIDONE 50 MG TAB (MYSOLINE) PO SCH (21:18)
[2020-05-15] MEDS: polyethylene glycoL POWDER 17 GM (MIRALAX) PACK PO SCH (21:20)
[2020-05-15] MEDS ORDERED: LORA-404 PO (21:52)
[2020-05-15] MEDS ORDERED: ENOX30DI4 SC (21:52)
[2020-05-15] MEDS ORDERED: AMAN100C18 PO (21:52)
[2020-05-15] MEDS ORDERED: NF-NACL1GT PO (21:52)
--- NOTE | 2020-05-15 21:53 | Discharge Inst-Skilled Nursing ---
Discharge Inst-Skilled NF Reconcile Patient Problems Problems Reviewed?: Yes Patient Instructions Patient Problems: Parkinson's disease/essential tremor Severe cognitive deficit Hyponatremia from SIADH Goal: [place] Consult/Follow Up/Orders Follow Up Appt.: [facility] rounds Skilled NF Admit to: [facility] Certification (SNF) I certify that SNF services are required to be given on an inpatient basis because of the above named patient's need for penitentiary care on a continuing basis for the conditions(s) for which he/she was receiving inpatient hospital services prior to his/her transfer to the [facility]. [facility] Facility Order: Nursing Services, Crotch Breaker-Evaluate & Treat, Physical Therapy-Evaluate & Treat, Speech Language-Evaluate & Treat Oxygen Delivery Method: Room Air Discharge Diet: No Restrictions Resuscitation Status: Do Not Resuscitate New & Resume Previous Orders New Medications: Amantadine HCl (Amantadine) 100 Mg Capsule 100 MG PO BID for 30 Days, CAP Enoxaparin Sodium (Enoxaparin Sodium) 30 Mg/0.3 Ml Syringe 30 MG SC DAILY@1600 for 14 Days, SYRINGE Sodium Chloride (Sodium Chloride) 1 Gm Tab 1 GM PO BID for 30 Days, TAB Continued Medications: Amlodipine Besylate (Amlodipine Besylate) 5 Mg Tablet 5 MG PO DAILY, #30 TAB 0 Refills Calcium Carbonate (Calcium) 600 Mg Tablet 600 MG PO DAILY, TAB Carbidopa/Levodopa (Carbidopa-Levodopa 25-100 Tab) 1 Each Tablet 1 EA PO TID, TAB Cholecalciferol (Vitamin D3) (Vitamin D3) 25 Mcg Tablet 25 MCG PO DAILY, TAB Docusate Sodium (Docusate Sodium) 100 Mg Capsule 100 MG PO DAILY, CAP Ferrous Sulfate (Iron) 325 Mg Tablet 650 MG PO DAILY, TAB TAKES 2 (325MG) TABS DAILY Fluoxetine HCl (Fluoxetine HCl) 20 Mg Capsule 20 MG PO DAILY, CAP Lorazepam (Ativan) 0.5 Mg Tablet 0.5 MG PO HS, #15 TAB (This prescription has been renewed) Polyethylene Glycol 3350 (Miralax) 17 Gm Powd.pack 17 GM PO DAILY, EACH Primidone (Mysoline) 50 Mg Tablet 100 MG PO HS, TAB TAKES 2 (50MG) TABS AT BEDTIME Propranolol HCl (Propranolol HCl) 20 Mg Tablet 20 MG PO BID, #60 TAB 0 Refills Alejandra Mckeon May 15, 2020 21:52 Pneu Vac Indicated: Yes ALEJANDRA MCKEON DO May 15, 2020 21:53
[2020-05-16 05:51] VITALS: BP 153/79
--- NOTE | 2020-05-16 08:22 | Therapy Team Discharge Summary ---
Therapy Discharge Summary Discharge Recommendations Date of Discharge 05/16/20 Therapy D/C Recommendations: 24 hr Supervision Occupational Therapy Pt. seen for OT to increase overall strength and independence with daily skills. Pt did not meet goals due to significant muscle tone, tremors, and weakness. At discharge pt requires max/dependent assist with all ADLs. Pt is currently discharging to inpatient skilled facility for ongoing therapy. Equipment needs and discharge planning to be addressed at [facility]. Decreased Activ Tolerance, Decreased Safety Aware, Decreased UE Strength, Dependent Transfers, Impaired Bed Mobility, Impaired Cognition, Impaired Coordination, Impaired Funct Balance, Impaired I ADL's, Impaired Self-Care Skills, Restricted Funct UE ROM, Visual-Perceptual Deficit PT Interface Control Officer Goals Interface Control Officer Goals PT [facility] Goals Time Frame: May 24, 2020 Roll Left to Right (QC): 3 Sit to Lying (QC): 3 Lying-Sitting on Side/Bed(QC): 3 Sit to Stand (QC): 3 Chair/Rfe-lt-Fcugl Xfer(QC): 3 Car Transfer (QC): 3 Does the Patient Walk: No and Walking Goal IS indicated Walk 10 feet (QC): 3 Walk 10ft-Uneven Surface(QC): 88 Walk 50ft with 2 Turns (QC): 88 Walk 150 ft (QC): 88 Does the Pt use WC or Scooter?: Yes Wheel 50 feet with 2 turns (QC: 2 1 Step (curb) (QC): 88 4 Steps (QC): 88 12 Steps (QC): 88 Picking up an Object (QC): 88 OT Interface Control Officer Goals [facility] Goals Time Frame: May 31, 2020 Eating (QC): 4 (Not met) Oral Hygiene (QC): 4 (Not met) Shower/Bathe Self (QC): 3 (Not met) Upper Body Dressing (QC): 4 (Not met) Lower Body Dressing (QC): 3 (Not met) On/Off Footwear (QC): 3 (Not met) Toileting Hygiene (QC): 3 (Not met) Toilet/Commode Transfer (QC): 3 (Not met) Additional Goals: 1-Demonstrate ADL Tasks, 2-Verbalize Understanding, 3- ImproveStrength/Vinicius 1=Demonstrate adherence to instructed precautions during ADL tasks. 2=Patient will verbalize/demonstrate understanding of assistive devices/modifications for ADL. 3=Patient will improve strength/tolerance for activity to enable patient to perform ADL's. Speech [facility] Goals [facility] Goals Patient will improve cognitive-communication necessary for safety and daily living tasks with minimal assist. ALTON MARKS OT May 16, 2020 08:22
--- NOTE | 2020-05-16 09:04 | PM&R Progress Note ---
Subjective HPI/CC On Admission Date Seen by Provider: May 16, 2020 Time Seen by Provider: 09:00 Subjective/Events-last exam Pt asleep this morning on rounds at 0600 BM regular per RN No major issues reported No pain reported No falls but increased risk Disposition will be skilled care at [place] Overall debility is so chronic that likely no recovery is expected Checked meds and labs Conferred with RN Reviewed therapy notes Objective Exam Vital Signs Vital Signs Date Time Temp Pulse Resp B/P (MAP) Pulse Ox O2 Delivery O2 Flow Rate FiO2 05/16/20 05:51 36.1 84 18 153/79 (103) 99 Room Air Capillary Refill : Less Than 3 Seconds General Appearance: No Apparent Distress, WD/WN, Chronically ill, Thin HEENT: PERRL/EOMI, Normal ENT Inspection, Pharynx Normal Neck: Normal Inspection, Non Tender, Supple, Carotid Bruit, Limited Range of Motion Respiratory: Chest Non Tender, Lungs Clear, No Accessory Muscle Use, No Respiratory Distress, Decreased Breath Sounds Cardiovascular: Regular Rate, Rhythm, No Edema, No Gallop, No JVD, No Murmur, Normal Peripheral Pulses Gastrointestinal: Normal Bowel Sounds, No Organomegaly, No Pulsatile Mass, Non Tender, Soft Back: Normal Inspection, No CVA Tenderness, No Vertebral Tenderness, Decreased Range of Motion, Other (scoliosis) Extremity: Normal Capillary Refill, Normal Inspection, Normal Range of Motion, Non Tender, No Calf Tenderness, No Pedal Edema Neurologic/Psychiatric: Alert, Oriented x3, Abnormal Gait, Depressed Affect, Motor Weakness (Severe Tremor, generalized weakness, ) Skin: Normal Color, Warm/Dry Lymphatic: No Adenopathy Results/Procedures Lab Patient resulted labs reviewed. FIM Transfers Therapy Code Descriptions/Definitions Functional [place] Measure: 0=Not Assessed/NA 4=Minimal Assistance 1=Total Assistance 5=Supervision or Setup 2=Maximal Assistance 6=Modified [place] 3=Moderate Assistance 7=Complete IndependenceSCALE: Activities may be completed with or without assistive devices. 8-Gbybikvvic-dxjfwaa completes the activity by him/herself with no assistance from a helper. 5-Set-up or Clean-up Assistance-helper sets up or cleans up; patient completes a ctivity. [place] assists only prior to or following the activity. 4-Supervision or Touching Assistance-helper provides verbal cues and/or touching/steadying and/or contact guard assistance as patient completes activity. Assistance may be provided throughout the activity or intermittently. 3-Partial/Moderate Assistance-helper does LESS THAN HALF the effort. [place] lifts, holds or supports trunk or limbs, but provides less than half the effort. 2-Substantial/Maximal Assistance-helper does MORE THAN HALF the effort. [place] lifts or holds trunk or limbs and provides more than half the effort. 6-Nsuwciwyi-xleygf does ALL the effort. Patient does none of the effort to complete the activity. Or, the assistance of 2 or more helpers is required for the patient to complete the activity. If activity was not attempted, code reason: 7-Patient Refused. 9-Not Applicable-not attempted and the patient did not perform the activity before the current illness, exacerbation or injury. 10-Not Attempted due to Environmental Limitations-(lack of equipment, weather restraints, etc.). 88-Not Attempted due to Medical Conditions or Safety Concerns. Roll Left to Right (QC): 1 Sit to Lying (QC): 1 Sit to Stand (QC): 1 Chair/Uzs-hv-Nlsow Xfer(QC): 1 Car Transfer (QC): 1 Gait Training Does the Patient Walk?: No and Walking Goal NOT indicated Walk 10 feet (QC): 88 Walk 50 ft with 2 Turns(QC): 88 Walk 150 ft (QC): 88 Walking 10ft/uneven surface-QC: 88 Wheelchair Training Does the Pt Use a Wheelchair?: Yes Wheel 50 ft with 2 turns (QC): 1 Wheel 150 ft (QC): 1 Type of Wheelchair: Manual Stair Training 1 Step (curb) (QC): 88 4 Steps (QC): 88 12 Steps (QC): 88 Balance Picking up an Object (QC): 88 ADL-Treatment Eating (QC): 2 (Max per nursing.) Oral Hygiene (QC): 7 (Pt. declines putting in dentures.) Shower/Bathe Self (QC): 1 (Pt dependent in bathing) Upper Body Dressing (QC): 1 Lower Body Dressing (QC): 1 (Pt. required assist x2 for lower body dressing. Required assist of one person to stand with pt. while another donned pants over hips.) On/Off Footwear (QC): 1 Toileting Hygiene (QC): 1 (Pt incontinent of bladder) Toilet Transfer (QC): 1 Assessment/Plan Assessment and Plan Assess & Plan/Chief Complaint Assessment: PD Hyponatremia due to SIADH Constipation periodic Scoliosis Elevated AST Falls Cognitive deficit "Freezing up" episodes initiated on Amantadine and seems to be responding Plan: Fluid restrict IRF protocol BM regimen Home meds Lovenox Amantadine Needs fci at discharge Discharge to [facility] tomorrow (1) Parkinson disease Status: Chronic (2) Thrombocytosis Status: Resolved Resolution Date/Time: 05/03/20 @ 10:33 (3) Elevated AST (SGOT) Status: Acute (4) DVT prophylaxis Status: Acute (5) Frequent falls Status: Acute (6) Tremor Status: Chronic (7) Constipation Status: Acute (8) Scoliosis (9) Hyponatremia Status: Acute (10) Syncope Status: Acute HAYDER VALLES DO May 16, 2020 09:04
--- NOTE | 2020-05-16 09:05 | Discharge Summary ---
Diagnosis/Chief Complaint Date of Admission May 03, 2020 at 11:00 Date of Discharge Discharge Date: May 16, 2020 Discharge Diagnosis Assessment: PD Hyponatremia due to SIADH Constipation periodic Scoliosis Elevated AST Falls Cognitive deficit "Freezing up" episodes initiated on Amantadine and seems to be responding Plan: Fluid restrict IRF protocol BM regimen Home meds Lovenox Amantadine Needs fci at discharge Discharge to [facility] today Discharge Summary Discharge Physical Examination Allergies: Coded Allergies: Penicillins (Verified Allergy, Unknown, 06/02/18) alendronate sodium (Verified Allergy, Unknown, 06/02/18) bacitracin (Verified Allergy, Unknown, 06/02/18) lactose (Verified Allergy, Unknown, 06/02/18) neomycin (Verified Allergy, Unknown, 06/02/18) polymyxin B (Verified Allergy, Unknown, 06/02/18) raloxifene (Verified Allergy, Unknown, leg swelling, 06/02/18) Vitals & I&Os Vital Signs Date Time Temp Pulse Resp B/P (MAP) Pulse Ox O2 Delivery O2 Flow Rate FiO2 05/16/20 14:00 36.1 84 18 153/79 99 Room Air General Appearance: Alert, Cooperative Respiratory: Clear to Auscultation Cardiovascular: Regular Rate Hospital Course Was the Problem List Reviewed?: Yes Hospital Course: Pt had an uneventful hospital course for 14 days after she was transferred from [facility] due to severe hyponatremia and severe weakness and worsening of her essential tremor and Parkinson's. Pt had become extremely debilitated with cognitive difficulties and she was maintained on Carbidopa/Levodopa and Primidone. I did add Amantadine unsure if that was helpful or not but she was on fluid restriction for hyponatremia due to SIADH and she tolerated that well interchanging with gatorade. She was maintained on Lovenox for DVT prophylaxis during the entire hospital course. Her bowel function returned back to normal, she denied any significant pain, no falls occurred during her hospital stay and overall although her prognosis remains very guarded and probably poor she was stable at time of DC and was discharged to [facility] for skilled care. Labs (last 24 hrs) Laboratory Tests 05/04/20 05:03: White Blood Count 4.6, Red Blood Count 4.12L, Hemoglobin 11.6, Hematocrit 33L, Mean Corpuscular Volume 81, Mean Corpuscular Hemoglobin 28, Mean Corpuscular Hemoglobin Concent 35, Red Cell Distribution Width 14.2, Platelet Count 460H, Mean Platelet Volume 8.2, Neutrophils (%) (Auto) 58, Lymphocytes (%) (Auto) 28, Monocytes (%) (Auto) 13H, Eosinophils (%) (Auto) 1, Basophils (%) (Auto) 1, Neutrophils # (Auto) 2.7, Lymphocytes # (Auto) 1.3, Monocytes # (Auto) 0.6, Eosinophils # (Auto) 0.1, Basophils # (Auto) 0.0, Sodium Level 125*L, Potassium Level 3.7, Chloride Level 94L, Carbon Dioxide Level 21, Anion Gap 10, Blood Urea Nitrogen 9, Creatinine 0.58L, Estimat Glomerular Filtration Rate > 60, BUN/Creatinine Ratio 16, Glucose Level 95, Calcium Level 9.0, Corrected Calcium 9.2, Total Bilirubin 0.4, Aspartate Amino Transf (AST/SGOT) 56H, Alanine Aminotransferase (ALT/SGPT) 9, Alkaline Phosphatase 55, Total Protein 7.3, Albumin 3.8 05/06/20 05:52: Sodium Level 128L, Potassium Level 3.8, Chloride Level 98, Carbon Dioxide Level 20L, Anion Gap 10, Blood Urea Nitrogen 9, Creatinine 0.54L, Estimat Glomerular Filtration Rate > 60, BUN/Creatinine Ratio 17, Glucose Level 87, Calcium Level 9.2 05/08/20 05:32: White Blood Count 4.3, Red Blood Count 3.93L, Hemoglobin 10.9L, Hematocrit 33L, Mean Corpuscular Volume 83, Mean Corpuscular Hemoglobin 28, Mean Corpuscular Hemoglobin Concent 33, Red Cell Distribution Width 14.5, Platelet Count 451H, Mean Platelet Volume 8.1, Neutrophils (%) (Auto) 57, Lymphocytes (%) (Auto) 27, Monocytes (%) (Auto) 13H, Eosinophils (%) (Auto) 2, Basophils (%) (Auto) 1, Neutrophils # (Auto) 2.5, Lymphocytes # (Auto) 1.1, Monocytes # (Auto) 0.6, Eosinophils # (Auto) 0.1, Basophils # (Auto) 0.1, Sodium Level 128L, Potassium Level 4.1, Chloride Level 96L, Carbon Dioxide Level 20L, Anion Gap 12, Blood Urea Nitrogen 10, Creatinine 0.60, Estimat Glomerular Filtration Rate > 60, BUN/Creatinine Ratio 17, Glucose Level 89, Calcium Level 9.5, Corrected Calcium 9.7, Total Bilirubin 0.3, Aspartate Amino Transf (AST/SGOT) 71H, Alanine Aminotransferase (ALT/SGPT) 27, Alkaline Phosphatase 56, Total Protein 7.3, Albumin 3.8 05/15/20 04:30: White Blood Count 3.4L, Red Blood Count 4.00L, Hemoglobin 11.4L, Hematocrit 34L, Mean Corpuscular Volume 84, Mean Corpuscular Hemoglobin 29, Mean Corpuscular Hemoglobin Concent 34, Red Cell Distribution Width 14.4, Platelet Count 419H, Mean Platelet Volume 8.7, Neutrophils (%) (Auto) 46, Lymphocytes (%) (Auto) 36, Monocytes (%) (Auto) 16H, Eosinophils (%) (Auto) 2, Basophils (%) (Auto) 1, Neutrophils # (Auto) 1.6L, Lymphocytes # (Auto) 1.2, Monocytes # (Auto) 0.6, Eosinophils # (Auto) 0.1, Basophils # (Auto) 0.0, Sodium Level 127L, Potassium Level 4.3, Chloride Level 94L, Carbon Dioxide Level 21, Anion Gap 12, Blood Urea Nitrogen 16, Creatinine 0.62, Estimat Glomerular Filtration Rate > 60, BUN/Creatinine Ratio 26, Glucose Level 84, Calcium Level 9.9, Corrected Calcium 9.9, Total Bilirubin 0.3, Aspartate Amino Transf (AST/SGOT) 50H, Alanine Aminotransferase (ALT/SGPT) 17, Alkaline Phosphatase 60, Total Protein 7.5, Albumin 4.0 Pending Labs Laboratory Tests 05/04/20 05:03: White Blood Count 4.6, Red Blood Count 4.12, Hemoglobin 11.6, Hematocrit 33, Mean Corpuscular Volume 81, Mean Corpuscular Hemoglobin 28, Mean Corpuscular Hemoglobin Concent 35, Red Cell Distribution Width 14.2, Platelet Count 460, Mean Platelet Volume 8.2, Neutrophils (%) (Auto) 58, Lymphocytes (%) (Auto) 28, Monocytes (%) (Auto) 13, Eosinophils (%) (Auto) 1, Basophils (%) (Auto) 1, Neutrophils # (Auto) 2.7, Lymphocytes # (Auto) 1.3, Monocytes # (Auto) 0.6, Eosinophils # (Auto) 0.1, Basophils # (Auto) 0.0, Sodium Level 125, Potassium Level 3.7, Chloride Level 94, Carbon Dioxide Level 21, Anion Gap 10, Blood Urea Nitrogen 9, Creatinine 0.58, Estimat Glomerular Filtration Rate > 60, BU N/Creatinine Ratio 16, Glucose Level 95, Calcium Level 9.0, Corrected Calcium 9.2, Total Bilirubin 0.4, Aspartate Amino Transf (AST/SGOT) 56, Alanine Aminotransferase (ALT/SGPT) 9, Alkaline Phosphatase 55, Total Protein 7.3, Albumin 3.8 05/06/20 05:52: Sodium Level 128, Potassium Level 3.8, Chloride Level 98, Carbon Dioxide Level 20, Anion Gap 10, Blood Urea Nitrogen 9, Creatinine 0.54, Estimat Glomerular Filtration Rate > 60, BUN/Creatinine Ratio 17, Glucose Level 87, Calcium Level 9.2 05/08/20 05:32: White Blood Count 4.3, Red Blood Count 3.93, Hemoglobin 10.9, Hematocrit 33, Mean Corpuscular Volume 83, Mean Corpuscular Hemoglobin 28, Mean Corpuscular Hemoglobin Concent 33, Red Cell Distribution Width 14.5, Platelet Count 451, Mean Platelet Volume 8.1, Neutrophils (%) (Auto) 57, Lymphocytes (%) (Auto) 27, Monocytes (%) (Auto) 13, Eosinophils (%) (Auto) 2, Basophils (%) (Auto) 1, Neutrophils # (Auto) 2.5, Lymphocytes # (Auto) 1.1, Monocytes # (Auto) 0.6, Eosinophils # (Auto) 0.1, Basophils # (Auto) 0.1, Sodium Level 128, Potassium Level 4.1, Chloride Level 96, Carbon Dioxide Level 20, Anion Gap 12, Blood Urea Nitrogen 10, Creatinine 0.60, Estimat Glomerular Filtration Rate > 60, BUN/Creatinine Ratio 17, Glucose Level 89, Calcium Level 9.5, Corrected Calcium 9.7, Total Bilirubin 0.3, Aspartate Amino Transf (AST/SGOT) 71, Alanine Aminotransferase (ALT/SGPT) 27, Alkaline Phosphatase 56, Total Protein 7.3, Albumin 3.8 05/15/20 04:30: White Blood Count 3.4, Red Blood Count 4.00, Hemoglobin 11.4, Hematocrit 34, Mean Corpuscular Volume 84, Mean Corpuscular Hemoglobin 29, Mean Corpuscular Hemoglobin Concent 34, Red Cell Distribution Width 14.4, Platelet Count 419, Mean Platelet Volume 8.7, Neutrophils (%) (Auto) 46, Lymphocytes (%) (Auto) 36, Monocytes (%) (Auto) 16, Eosinophils (%) (Auto) 2, Basophils (%) (Auto) 1, Neutrophils # (Auto) 1.6, Lymphocytes # (Auto) 1.2, Monocytes # (Auto) 0.6, Eosinophils # (Auto) 0.1, Basophils # (Auto) 0.0, Sodium Level 127, Potassium Level 4.3, Chloride Level 94, Carbon Dioxide Level 21, Anion Gap 12, Blood Urea Nitrogen 16, Creatinine 0.62, Estimat Glomerular Filtration Rate > 60, BUN/Creatinine Ratio 26, Glucose Level 84, Calcium Level 9.9, Corrected Calcium 9.9, Total Bilirubin 0.3, Aspartate Amino Transf (AST/SGOT) 50, Alanine Aminotransferase (ALT/SGPT) 17, Alkaline Phosphatase 60, Total Protein 7.5, Albumin 4.0 Discharge Home Medications: Active Scripts Active Sodium Chloride 1 Gm Tab 1 Gm PO BID 30 Days Amantadine (Amantadine HCl) 100 Mg Capsule 100 Mg PO BID 30 Days Enoxaparin Sodium 30 Mg/0.3 Ml Syringe 30 Mg SC DAILY@1600 14 Days Ativan (Lorazepam) 0.5 Mg Tablet 0.5 Mg PO HS Propranolol HCl 20 Mg Tablet 20 Mg PO BID Amlodipine Besylate 5 Mg Tablet 5 Mg PO DAILY Reported Docusate Sodium 100 Mg Capsule 100 Mg PO DAILY Iron (Ferrous Sulfate) 325 Mg Tablet 650 Mg PO DAILY TAKES 2 (325MG) TABS DAILY Miralax (Polyethylene Glycol 3350) 17 Gm Powd.pack 17 Gm PO DAILY Carbidopa-Levodopa 25-100 Tab (Carbidopa/Levodopa) 1 Each Tablet 1 Ea PO TID Vitamin D3 (Cholecalciferol (Vitamin D3)) 25 Mcg Tablet 25 Mcg PO DAILY Mysoline (Primidone) 50 Mg Tablet 100 Mg PO HS TAKES 2 (50MG) TABS AT BEDTIME Fluoxetine HCl 20 Mg Capsule 20 Mg PO DAILY Calcium (Calcium Carbonate) 600 Mg Tablet 600 Mg PO DAILY Instructions to patient/family Please see electronic discharge instructions given to patient. Diagnosis/Problems Diagnosis/Problems (1) Parkinson disease Status: Chronic (2) Thrombocytosis Status: Resolved Resolution Date/Time: 05/03/20 @ 10:33 (3) Elevated AST (SGOT) Status: Acute (4) DVT prophylaxis Status: Acute (5) Frequent falls Status: Acute (6) Tremor Status: Chronic (7) Constipation Status: Acute (8) Scoliosis (9) Hyponatremia Status: Acute (10) Syncope Status: Acute Clinical Quality Measures DVT/VTE Risk/Contraindication: Risk Factor Score Per Nursin RFS Level Per Nursing on Admit: 4+=Very High HAYDER VALLES DO May 16, 2020 09:05
[2020-05-16] MEDS: amLODIPine 5 MG (NORVASC) TAB PO SCH (09:28)
[2020-05-16] MEDS: FLUoxetine HCL 20 MG (PROzac) CAP PO SCH (09:28)
[2020-05-16] MEDS: VITAMIN D3 25 MCG (1,000 UNITS) TABLET PO SCH (09:29)
[2020-05-16] MEDS: PROPRANOLOL 20 MG (INDERAL) TABLET PO SCH (09:29)
[2020-05-16] MEDS: SINEMET 25/100 (CARBIDOPA/LEVODOPA) TAB PO SCH ×2 (09:29→12:23)
[2020-05-16] MEDS: AMANTADINE 100 MG (SYMMETREL) CAP PO SCH (09:33)
[2020-05-16] MEDS: SODIUM CHLORIDE 1 GM TABLET PO SCH (09:33)
[2020-05-16] MEDS: CALCIUM CARBONATE 600 MG (CALCARB) TAB PO SCH (09:34)
[2020-05-16] MEDS: SENNA W/DOCUSATE (SENOKOT S) TABLET PO SCH (10:35)
[2020-05-16] MEDS: DOCUSATE SODIUM 100 MG (COLACE) CAP PO SCH (10:35)
--- NOTE | 2020-05-16 11:22 | Therapy Team Discharge Summary ---
Therapy Discharge Summary Discharge Recommendations Date of Discharge Therapy D/C Recommendations: 24 hr Supervision Physical Therapy Patient came to rehab with falls and Parkinson's. Upon evaluation patient was dependent for all mobility. Patient has been performing bed mobility and transfer training, balance and endurance training, stretching, ROM, and education. Patient has made poor progress and has not met any of her terminal carman goals. Patient remains dependent for all mobility. Patient is discharging from this facility today and will be discharged from PT at this time. Occupational Therapy Decreased Activ Tolerance, Decreased Safety Aware, Decreased UE Strength, Dependent Transfers, Impaired Bed Mobility, Impaired Cognition, Impaired Coordination, Impaired Funct Balance, Impaired I ADL's, Impaired Self-Care Skills, Restricted Funct UE ROM, Visual-Perceptual Deficit PT Host Coordinator Goals [facility] Goals PT [facility] Goals Time Frame: May 24, 2020 Roll Left to Right (QC): 3 Sit to Lying (QC): 3 Lying-Sitting on Side/Bed(QC): 3 Sit to Stand (QC): 3 Chair/Pqb-sx-Kqjpz Xfer(QC): 3 Car Transfer (QC): 3 Does the Patient Walk: No and Walking Goal IS indicated Walk 10 feet (QC): 3 Walk 10ft-Uneven Surface(QC): 88 Walk 50ft with 2 Turns (QC): 88 Walk 150 ft (QC): 88 Does the Pt use WC or Scooter?: Yes Wheel 50 feet with 2 turns (QC: 2 1 Step (curb) (QC): 88 4 Steps (QC): 88 12 Steps (QC): 88 Picking up an Object (QC): 88 OT Host Coordinator Goals Host Coordinator Goals Time Frame: May 31, 2020 Eating (QC): 4 (Not met) Oral Hygiene (QC): 4 (Not met) Shower/Bathe Self (QC): 3 (Not met) Upper Body Dressing (QC): 4 (Not met) Lower Body Dressing (QC): 3 (Not met) On/Off Footwear (QC): 3 (Not met) Toileting Hygiene (QC): 3 (Not met) Toilet/Commode Transfer (QC): 3 (Not met) Additional Goals: 1-Demonstrate ADL Tasks, 2-Verbalize Understanding, 3- ImproveStrength/Vinicius 1=Demonstrate adherence to instructed precautions during ADL tasks. 2=Patient will verbalize/demonstrate understanding of assistive devices/modifications for ADL. 3=Patient will improve strength/tolerance for activity to enable patient to perform ADL's. Speech Host Coordinator Goals [facility] Goals Patient will improve cognitive-communication necessary for safety and daily living tasks with minimal assist. MARIA G ARORA PT May 16, 2020 11:22
--- NOTE | 2020-05-16 12:39 | NUR ---
CM/SS DISCHARGE Patient discharged to new Medicare skilled placement with [facility] [place] via their transport scheduled at 1330. Facility understands to bring a wheelchair with foot rests and to call unit upon their arrival. Faxed orders and instructions to [facility], prepared continuum of care packet to accompany patient. Coordinated notary this a.m. regarding banking paperwork sister/DONNAAbdullahi Mandujano provided and patient requested to sign. Complimentary copies to Nazia along with the originals she will be returning to the bank. Patient will be in quarantine for two weeks firm, visitor policy after that to be determined depending on Covid19 state and local protocols.
--- NOTE | 2020-05-16 13:52 | Speech Therapy Daily Note ---
Speech Daily Progress Note Subjective Date Seen by Provider: May 16, 2020 Time Seen by Provider: 00:10 Patient was alert and stated she was ready to leave for the SNF. Objective Patient answered a series of question related to her discharge at 80% with minimal cuing. Assessment Assessment Current Status: Fair Progress Treatment Plan Discontinue ST Speech Short Term Goals Short Term Goals Short Term Goals 1) Patient will answer simple y/n questions with 80% given minimal cues. 2) Patient will demo completion of "fill in the blank" sentences at the initial level at 80% with minimal cues. 3) Patient will recall information at the 5 and 10 minute increments at 80% with minimal cues. Speech Line Service Person Goals Line Service Person Goals Patient will improve cognitive-communication necessary for safety and daily living tasks with minimal assist. Speech-Plan Patient/Family Goals Patient/Family Goals: Patient is discharging to local SNF this date Treatment Plan Speech Therapy Treatment Plan: Discontinue ST Treatment Duration: May 12, 2020 Frequency: 4 times per week (Patient will receive skilled ST 4-5 times per week.) Estimated Hrs Per Day: .5 hour per day Rehab Potential: Fair Barriers to Learning: Patient's medical status Pt/Family Agrees to Plan: Yes Safety Risks/Education Teaching Recipient: Patient, Family Teaching Methods: Demonstration, Discussion Response to Teaching: Verbalize Understanding, Return Demonstration Education Topics Provided: Continued safety upon discharge Discharge Recommendations QUALITY CODES: EXPRESSION OF IDEAS/WANTS: 3 UNDERSTANDING VERBAL CONTENT: 4 BRIEF INTERVIEW MENTAL STATUS: YES REPETITION OF 3 WORDS: 3 TEMPORAL ORIENTATION: YEAR: CORRECT, MONTH: CORRECT, DAY: MISSED BY 1 DAY RECALL: SOCK: YES WITH CUE,, COLOR: YES WITH CUE, BED: YES WITH CUE MEMORY/RECALL ABILITY: SEASON, STAFF NAMES AND THAT SHE IS IN THE HOSPITAL Time Speech Therapy Time In: 09:00 Speech Therapy Time Out: 09:10 Total Billed Time: 10 Billed Treatment Time 1, SLGEORGE Bonilla May 16, 2020 13:52
[2020-05-16 14:00] VITALS: BP 153/79
--- NOTE | 2020-05-16 14:24 | NUR ---
Nsg report given to BABITA Parker at [facility], [place]. Addendum: 05/16/20 at 1824 by ZACHARIAH ARTIS RN Pt was discharged per w/c to [facility], accomp by her sister, & [facility] auto transport driver. Pt A/O during transportation, waving, & telling staff good by.
--- NOTE | 2020-05-17 09:01 | Therapy Team Discharge Summary ---
Therapy Discharge Summary Discharge Recommendations Date of Discharge May 16, 2020 at 14:00 Therapy D/C Recommendations: 24 hr Supervision Occupational Therapy Decreased Activ Tolerance, Decreased Safety Aware, Decreased UE Strength, Dependent Transfers, Impaired Bed Mobility, Impaired Cognition, Impaired Coordination, Impaired Funct Balance, Impaired I ADL's, Impaired Self-Care Skills, Restricted Funct UE ROM, Visual-Perceptual Deficit Speech-Language Pathology Patient was admitted to the ARU due to severe debility secondary to Parkinson's. Patient received skilled ST for cognitive-communication with some progress noted. Patient had increased alert level at the end of her stay, however she continued to sleep quite a bit. Patient was discharged to SNF on 05/16/2020. PT Jboss Developer Goals Fdc Goals PT Fdc Goals Time Frame: May 24, 2020 Roll Left to Right (QC): 3 Sit to Lying (QC): 3 Lying-Sitting on Side/Bed(QC): 3 Sit to Stand (QC): 3 Chair/Zhb-dx-Vhokq Xfer(QC): 3 Car Transfer (QC): 3 Does the Patient Walk: No and Walking Goal IS indicated Walk 10 feet (QC): 3 Walk 10ft-Uneven Surface(QC): 88 Walk 50ft with 2 Turns (QC): 88 Walk 150 ft (QC): 88 Does the Pt use WC or Scooter?: Yes Wheel 50 feet with 2 turns (QC: 2 1 Step (curb) (QC): 88 4 Steps (QC): 88 12 Steps (QC): 88 Picking up an Object (QC): 88 OT Fdc Goals Fdc Goals Time Frame: May 31, 2020 Eating (QC): 4 (Not met) Oral Hygiene (QC): 4 (Not met) Shower/Bathe Self (QC): 3 (Not met) Upper Body Dressing (QC): 4 (Not met) Lower Body Dressing (QC): 3 (Not met) On/Off Footwear (QC): 3 (Not met) Toileting Hygiene (QC): 3 (Not met) Toilet/Commode Transfer (QC): 3 (Not met) Additional Goals: 1-Demonstrate ADL Tasks, 2-Verbalize Understanding, 3- ImproveStrength/Vinicius 1=Demonstrate adherence to instructed precautions during ADL tasks. 2=Patient will verbalize/demonstrate understanding of assistive devices/modifications for ADL. 3=Patient will improve strength/tolerance for activity to enable patient to perform ADL's. Speech Jboss Developer Goals Jboss Developer Goals Patient will improve cognitive-communication necessary for safety and daily living tasks with minimal assist. GEORGE ARDON May 17, 2020 09:01
== END 2020-05-16 14:00 | DRG 57 ==
PROVIDERS: ADMIT Internal Medicine; ATTEND Internal Medicine
DX: G20 Parkinson's disease (principal); E22.2 Syndrome of inappropriate secretion of antidiuretic hormone; R41.89 Other symptoms and signs involving cognitive functions and awareness; Z91.81 History of falling; M41.9 Scoliosis, unspecified; I10 Essential (primary) hypertension; F41.9 Anxiety disorder, unspecified; F32.9 Major depressive disorder, single episode, unspecified; Z66 Do not resuscitate; D64.9 Anemia, unspecified; K59.00 Constipation, unspecified; D47.3 Essential (hemorrhagic) thrombocythemia; F10.20 Alcohol dependence, uncomplicated; Z87.891 Personal history of nicotine dependence
CPT/HCPCS: 36415; 80048; 80053; 85025

== ENCOUNTER → 2020-06-26 | Outpatient (CLI) | payer MEDICARE, MEDICAID ==
[~2020-06-26] MED LIST changes: +AMAN100C18 PO; +AMLO5TAB9 PO; -CALC600T12 PO; +CALC600T14 PO; +ENOX30DI4 SC; +NF-NACL1GT PO; +PROP20TA5 PO
--- NOTE | 2020-06-26 12:16 | Diagnostic Imaging Report ---
PROCEDURE: MR imaging of the brain without contrast. TECHNIQUE: Multiplanar, multisequence MR imaging of the brain was performed without contrast. INDICATION: Mental status changes. Correlation is made with prior brain MRI from 03/16/2020. Abnormal T2/FLAIR signal is identified within bilateral thalami. There is abnormal signal identified in the periaqueductal king matter. There is abnormal signal identified in the region of the colliculi as well as mammillary bodies. Features are suggestive of Wernicke encephalopathy. There is some diffusion restriction identified on diffusion-weighted images in the region of the thalami bilaterally. The normal expected flow-voids within the carotid siphons are seen. There is no midline shift. There is periventricular and subcortical white matter signal abnormalities noted, likely on the basis of chronic microvascular ischemia. No acute intra-axial or extra-axial hemorrhage is detected. Corpus callosum is unremarkable. The sella and parasellar structures are unremarkable. IMPRESSION: Significant T2/FLAIR signal in bilateral thalami, periaqueductal king matter as well as colliculi and mammillary bodies. Pattern is suggestive of Wernicke encephalopathy. This does produce some diffusion restriction within bilateral thalami suggestive of some ischemia. No acute intracranial hemorrhage is detected. Results will be called to Dr. Laura Verdugo. Dictated by: Dictated on workstation # [id number]
== END ==
LOC: RAD 10:19
PROVIDERS: ATTEND Family Medicine
DX: G20 Parkinson's disease (principal); G37.3 Acute transverse myelitis in demyelinating disease of central nervous system; F03.90 Unspecified dementia, unspecified severity, without behavioral disturbance, psychotic disturbance, mood disturbance, and anxiety; R41.82 Altered mental status, unspecified
CPT/HCPCS: 70551